=== PATIENT | female | born 1960 | race Caucasian/White ===

== ENCOUNTER 2016-08-19 12:30 | Inpatient (IN) | END 2016-08-29 19:25 | disposition home or self-care (01) | DRG 246 | DX: I25.10 Atherosclerotic heart disease of native coronary artery without angina pectoris (principal); E10.42 Type 1 diabetes mellitus with diabetic polyneuropathy; I25.82 Chronic total occlusion of coronary artery; I25.2 Old myocardial infarction; Z95.5 Presence of coronary angioplasty implant and graft; Z72.0 Tobacco use; Z79.4 Long term (current) use of insulin; E03.9 Hypothyroidism, unspecified; E10.65 Type 1 diabetes mellitus with hyperglycemia ==

== ENCOUNTER 2016-12-10 16:55 | Inpatient (IN) | payer OTHER ==
[2016-12-10] VITALS (25 sets, daily range): BP systolic 81–109; BP diastolic 42–63; PULSE 98–121; RESP 16–30; Ht 154.9 cm; Wt 58.5 kg
[~2016-12-10] VITALS: Ht 154.9 cm; Wt 58.5 kg
[~2016-12-10 16:55] MED LIST: ALEN70TA30 PO; ASPI-664 PO; ATOR20TA38 PO; DULO20CA17 PO; GABA300C16 PO; ISOS10TA2 PO; LANT3I SC; METO-448 PO; NOVO3I SC; TICA90TA PO
--- NOTE | 2016-12-10 17:40 | HP ---
Date/Time of Note Date/Time of Note DATE: 12/10/16 TIME: 17:39 Assessment/Plan VTE Prophylaxis VTE Prophylaxis Intervention: heparin Assessment/Plan Assessment/Plan 56 yo F with pmhx DM2 with previous DKA, CAD sp AL admitted to OSH for AMS, found to have DKA and NSTEMI. Pt transferred to [facility] for further cardiac evaluation. Suspect AMS is toxic metabolic encephalopathy 2/2 DKA and NSTEMI #NSTEMI with troponin up to 60s -cont heparin drip -dr cole of cardiology service aware of transfer -cont statin, DAPT with asa and brilinta #DM2 with DKA -cont subQ insulin -check a1c #diabetic neuropathy? cont home neurontin and cymbalta #pulm edema requiring intubation defer lasix pending Cr #CHF pending angiogram as noted above #hypothyroid cont home synthroid prophx: H2b while on vent, heparin drip of note, pt transferred on ceftriaxone. Rationale unclear. Will stop. HPI/ROS Admit Date/Time Admit Date/Time Dec 10, 2016 at 16:55 Hx of Present Illness Pt intubated at time of transfer so hx obtained from chart and daughter. 56 yo F with pmhx DM2 presented to [place] 2 days ago with AMS, found to be in DKA. Troponin found to be elevated but to ST segment elevation. While pt was getting IVFs for DKA treatment volume overload resulted and pt required intubation for volume overload. Pt transferred from [place] to here for angiogram for her NSTEMI. At time of transfer pt was on SubQ insulin and heparin drip. PMH/Family/Social Past Medical History DM2, HTN, CAD with h/o AL, tobacco abuse, hypothyroid Exam/Review of Systems Exam Exam intubated but awake EOMI MMM coarse breath sounds and bb crackles no mrg abd soft no le edema no rashes AM labs from OSH reviewed, Ca 7.6, Mag 2.6, Phos 1.6 Trop trend 67-->49-->29 OSH cultures: Urine cult ng, blood cult ng CXR 6.27: pna v pulm edema abd US: cholelithiasis and sludge, no CBD dilation JEANNETTE non obstructing L kidney stone TTE at oSH with EF 35-40%, LAD WMROBEL Lindsey MD Dec 10, 2016 17:40
[2016-12-10 17:53] LABS: ADD SCAN DIFF NO
[2016-12-10 18:12] LABS: INR 1.07; PROTIME 13.9 Sec (12.2-14.2); PT RATIO 1.1
[2016-12-10 18:13] LABS: PARTIAL THROMBOPLASTIN TIME 30.3 Sec (25.0-35.0)
[2016-12-10 18:23] LABS: MAGNESIUM 2.4 mg/dl (1.7-2.5); PHOSPHORUS 1.6 mg/dl (2.5-4.9)
[2016-12-10] MEDS ORDERED: GLUCOSE GEL 15 GRAM TUBE BUCCAL PRN (18:30)
[2016-12-10] MEDS ORDERED: GLUCOSE GEL 15 GRAM TUBE PO PRN ×2 (18:30)
[2016-12-10] MEDS ORDERED: GLUCAGON 1 MG INJ IM PRN (18:30)
[2016-12-10] MEDS ORDERED: DEXTROSE 50% 50 ML SYRINGE IV PRN (18:30)
[2016-12-10 18:39] LABS: ABNORMAL IP MESSAGE 1; HEMATOCRIT 36.8 % (37.0-47.0); HEMOGLOBIN 12.2 g/dl (12.0-16.0); MEAN CORPUSCULAR HGB CONC 33.2 g/dl (32.0-37.0); MEAN CORPUSCULAR VOLUME 90.6 fl (82.0-101.0); MEAN PLATELET VOLUME 10.5 fl (7.4-10.4); PLATELET COUNT 144 10^3/UL (140-415); RED BLOOD COUNT 4.06 10^6/ul (4.20-5.40); WHITE BLOOD COUNT 11.4 10^3/ul (4.8-10.8)
[2016-12-10 18:56] LABS: ALBUMIN 3.1 g/dl (3.3-4.9); ALBUMIN/GLOBULIN RATIO 1.47; BILIRUBIN,INDIRECT 0.7 mg/dl (0-1.1); BILIRUBIN,TOTAL 0.7 mg/dl (0.2-1.3); CALCIUM 7.7 mg/dl (8.4-10.2); CREATININE 0.78 mg/dl (0.44-1.00); POTASSIUM 3.6 mmol/L (3.5-5.1); TOTAL PROTEIN 5.2 g/dl (6.1-8.1)
[2016-12-10] MEDS ORDERED: HEPARIN 1000 UNITS/ML 10 ML INJ IV ONE (19:00)
[2016-12-10] MEDS: PROPOFOL 100 ML IV SCH (19:09)
[2016-12-10] MEDS: HEPARIN 25000 UNITS/250 ML 250 ML IV SCH (19:25)
[2016-12-10 19:49] LABS: LYMPHOCYTES # 0.3 10^3/ul (0.8-2.9)
[2016-12-10 20:01] LABS: AADO2 Arterial 134.2 mmHg (7.0-24.0); Allen Test ACCEPTAB; Arterial Base Excess 0.9 mmol/L (-3.0-3); Arterial COHb 0.3 % (0.0-3.0); Arterial Fraction of Oxyhgb 95.4 % (93.0-99.0); Arterial HCO3 24.1 mmol/L (22.0-26.0); Arterial MetHb 0.3 % (0.0-1.5); MODE VENT - AC
[2016-12-10] MEDS: INSULIN GLARGINE [LANtus] 3 ML PEN SC SCH (20:19)
[2016-12-10] MEDS: INSULIN ASPART [NOVOLOG] 3 ML PEN SC SCH (20:19)
[2016-12-10] MEDS: ATORVASTATIN 20 MG TAB PO SCH (20:21)
[2016-12-10] MEDS: FAMOTIDINE 20 MG TAB PO SCH (20:21)
[2016-12-10] MEDS: GABAPENTIN 300 MG CAP PO SCH (20:21)
[2016-12-10] MEDS: TICAGRELOR 90 MG TABLET PO SCH (20:44)
--- NOTE | 2016-12-10 20:50 | RADRPT ---
PROCEDURE: XR Chest. CLINICAL INDICATION: Check endotracheal tube position. TECHNIQUE: Single frontal view. COMPARISON: 08/25/2016. FINDINGS: The endotracheal tube, nasogastric tube, and right arm PICC line are in satisfactory position. Ther e is bilateral interstitial disease with some confluent components consistent with pulmonary edema. The heart size is normal. There is no pleural effusion. There is no pneumothorax. IMPRESSION: 1. Endotracheal tube, nasogastric tube, and right arm PICC line in satisfactory position. 2. Pulmonary edema. RPTAT: QQ .Alonso Brooks MD, MD Date Time Electronically viewed and signed by .Alonso Brooks MD, MD on 12/10/2016 20:49 .R/
[2016-12-10] MEDS: ISOSORBIDE DINITRATE 10 MG TAB PO SCH (21:00)
[2016-12-10] MEDS: METOPROLOL 25 MG TAB PO SCH (21:00)
[2016-12-10] MEDS: ACETAMINOPHEN 650MG/20.3ML CUP NGT PRN (21:40)
[2016-12-10] MEDS ORDERED: POTASSIUM PHOSPHATE 40 MEQ in SOD CHLORIDE 0.9% 250 ML IVPB ONE (22:00)
[2016-12-10] MEDS ORDERED: SOD CHLORIDE 0.9% 500 ML IV ONE (23:30)
[2016-12-11] VITALS (73 sets, daily range): BP systolic 79–123; BP diastolic 41–98; PULSE 84–106; RESP 12–33
[2016-12-11 00:42] LABS: INR 1.2; PROTIME 15.3 Sec (12.2-14.2); PT RATIO 1.2
[2016-12-11] MEDS: INSULIN ASPART [NOVOLOG] 3 ML PEN SC SCH ×6 (01:18→21:00)
[2016-12-11 01:21] LABS: PARTIAL THROMBOPLASTIN TIME 120.6 Sec (25.0-35.0)
[2016-12-11] MEDS: LEVOTHYROXINE 112 MCG TAB PO SCH (05:38)
[2016-12-11 06:20] LABS: ADD SCAN DIFF NO
[2016-12-11 06:23] LABS: BASOPHILS % 0.2 % (0.0-2.0); EOSINOPHILS # 0.2 10^3/ul (0.0-0.5); HEMATOCRIT 36.4 % (37.0-47.0); HEMOGLOBIN 11.9 g/dl (12.0-16.0); LYMPHOCYTES # 0.8 10^3/ul (0.8-2.9); LYMPHOCYTES % 6.4 % (15.0-51.0); MEAN CORPUSCULAR HEMOGLOBIN 29.9 pg (29.0-33.0); MEAN CORPUSCULAR HGB CONC 32.7 g/dl (32.0-37.0); MEAN CORPUSCULAR VOLUME 91.5 fl (82.0-101.0); MEAN PLATELET VOLUME 10.6 fl (7.4-10.4); MONOCYTE # 0.5 10^3/ul (0.3-0.9); MONOCYTES % 4.4 % (0.0-11.0); NEUTROPHIL # 10.6 10^3/ul (1.6-7.5); NEUTROPHILS % 86.5 % (39.0-77.0); PLATELET COUNT 127 10^3/UL (140-415); RED BLOOD COUNT 3.98 10^6/ul (4.20-5.40); WHITE BLOOD COUNT 12.3 10^3/ul (4.8-10.8)
[2016-12-11 06:52] LABS: INR 1.12; PARTIAL THROMBOPLASTIN TIME 35.3 Sec (25.0-35.0); PROTIME 14.4 Sec (12.2-14.2); PT RATIO 1.1
[2016-12-11 06:57] LABS: CALCIUM 7.8 mg/dl (8.4-10.2); CREATININE 0.69 mg/dl (0.44-1.00); POTASSIUM 3.8 mmol/L (3.5-5.1)
[2016-12-11] MEDS: PROPOFOL 100 ML IV SCH ×2 (07:00→19:00)
[2016-12-11] MEDS: METOPROLOL 25 MG TAB PO SCH ×2 (09:00→21:12)
[2016-12-11] MEDS: ISOSORBIDE DINITRATE 10 MG TAB PO SCH ×3 (09:00→21:00)
[2016-12-11] MEDS: DULOXETINE 20 MG CAP DR PO SCH (09:01)
[2016-12-11] MEDS: GABAPENTIN 300 MG CAP PO SCH ×3 (09:01→21:11)
[2016-12-11] MEDS: FAMOTIDINE 20 MG TAB PO SCH ×2 (09:01→21:11)
[2016-12-11] MEDS: ASPIRIN (EC) 81 MG TAB PO SCH (09:17)
[2016-12-11] MEDS: TICAGRELOR 90 MG TABLET PO SCH ×2 (09:25→21:14)
[2016-12-11] MEDS ORDERED: LIDOCAINE 1% (MDV) 20 ML INJ ONE (10:13)
[2016-12-11] MEDS ORDERED: IODIXANOL LOCM 100 ML BTL ONE (10:13)
[2016-12-11] MEDS ORDERED: VERAPAMIL 5 MG INJ ONE (10:41)
[2016-12-11] MEDS ORDERED: HEPARIN 1000 UNITS/ML 10 ML INJ ONE (10:42)
[2016-12-11] MEDS ORDERED: NITROGLYCERIN (IC) 100 MCG/ML INJ ONE (10:42)
--- NOTE | 2016-12-11 11:05 | PN ---
Date/Time of Note Date/Time of Note DATE: 12/11/16 TIME: 11:02 Assessment/Plan VTE Prophylaxis VTE Prophylaxis Intervention: heparin Lines/Catheters IV Catheter Type (from Nrsg): PICC Line Central line still needed: Yes (IV access ) Urinary Cath still in place: Yes Reason Cath still needed: urinary retention, other (indicate) (strict I/o For CHF ) Assessment/Plan Assessment/Plan # acute NSTEMI with troponin upto 60s on heparin gtt, Cardiology on board, plan for [facility] today #DM2 with DKA- s/p Insulin drip at [facility] -cont subQ insulin #diabetic neuropathy? cont home neurontin and cymbalta # acute resp failure due to pulm edema requiring intubation defer lasix pending Cr #CHF diuresis as per cardiology #hypothyroid cont home synthroid prophx: H2b while on vent, heparin drip IV ceftriaxone was stopped upon transfer apperciate cardiology help Subjective 24 Hr Interval Summary Free Text/Dictation plan for [facility] today, s/p Insulin for DKA T [facility] Exam/Review of Systems Vital Signs Vitals Vital Signs Date Time Temp Pulse Resp B/P Pulse Ox O2 Delivery O2 Flow Rate FiO2 12/11/16 09:30 95 27 104/53 98 Mechanical Ventilator 12/11/16 08:00 35 12/11/16 06:00 98.6 Intake and Output 12/10/16 12/10/16 12/11/16 15:00 23:00 07:00 Intake Total 43.4 ml 836.9409 ml Output Total 365 ml 275 ml Balance -321.6 ml 561.9409 ml Exam Constitutional: other (intubated ) Psych: no complaints Head: normocephalic Eyes: nl conjunctiva ENMT: nl external ears & nose Neck: supple Respiratory: other (bibasilar rales ) Cardiovascular: regular rate and rhythm Gastrointestinal: non-tender, soft Musculoskeletal: nl extremities to inspection Extremities: normal pulses Results Result Diagram: 12/11/16 0612/11/16 06 Results 24 hrs Laboratory Tests Test 12/10/16 17:50 12/10/16 17:55 12/10/16 19:43 12/10/16 20:16 White Blood Count 11.4 #H Red Blood Count 4.06 L Hemoglobin 12.2 Hematocrit 36.8 L Mean Corpuscular Volume 90.6 Mean Corpuscular Hemoglobin 30.0 Mean Corpuscular Hemoglobin Concent 33.2 Red Cell Distribution Width 14.0 Platelet Count 144 # Mean Platelet Volume 10.5 H Neutrophils % 88.0 H Band Neutrophils % 9.0 H Lymphocytes % 3.0 L Eosinophils % Neutrophils # 10.0 H Lymphocytes # 0.3 L Eosinophils # Prothrombin Time 13.9 Prothrombin Time Ratio 1.1 INR International Normalized Ratio 1.07 Activated Partial Thromboplast Time 30.3 Sodium Level 140 Potassium Level 3.6 Chloride Level 110 Carbon Dioxide Level 24 Anion Gap 10 Blood Urea Nitrogen 24 H Creatinine 0.78 Glucose Level 182 Hemoglobin A1c 9.4 H Calcium Level 7.7 L Phosphorus Level 1.6 L Magnesium Level 2.4 Total Bilirubin 0.7 Direct Bilirubin 0.00 Indirect Bilirubin 0.7 Aspartate Amino Transf (AST/SGOT) 90 H Alanine Aminotransferase (ALT/SGPT) 46 Alkaline Phosphatase 103 Total Protein 5.2 L Albumin 3.1 L Globulin 2.10 Albumin/Globulin Ratio 1.47 Bedside Glucose 199 243 H Blood Gas Specimen Source Blood arterial Arterial Blood Date Drawn 12/10/2016 7:50:38 PM Arterial Blood pH (Temp corrected) 7.470 H Arterial Blood pCO2 (Temp correct) 33.9 L Arterial Blood pO2 (Temp corrected) 75.9 L Arterial Blood HCO3 24.1 Arterial Blood Base Excess 0.9 Arterial Blood Oxygen Saturation 96.0 Miguel Test ACCEPTAB Arterial Blood Gas Puncture Site Right Radial Arterial Blood Carboxyhemoglobin 0.3 Arterial Blood Methemoglobin 0.3 Blood Gas A-a O2 Differential 134.2 H Oxyhemoglobin Percent 95.4 Total Hemoglobin 13.0 Blood Gas Temperature 37.0 Blood Gas Respiration Rate 12.0 Blood Gas Actual Respiration Rate 24 Blood Gas Modality VENT - AC FiO2 35.0 Blood Gas Tidal Volume 450.0 Blood Gas Low PEEP Setting 5.0 Blood Gas Notified Whom MA Blood Gas Notified Time 12/10/2016 8:01:23 PM Test 12/11/16 00:15 12/11/16 01:15 12/11/16 05:37 12/11/16 06:05 Prothrombin Time 15.3 H 14.4 H Prothrombin Time Ratio 1.2 1.1 INR International Normalized Ratio 1.20 1.12 Activated Partial Thromboplast Time 120.6 *H 35.3 H Bedside Glucose 209 180 White Blood Count 12.3 H Red Blood Count 3.98 L Hemoglobin 11.9 L Hematocrit 36.4 L Mean Corpuscular Volume 91.5 Mean Corpuscular Hemoglobin 29.9 Mean Corpuscular Hemoglobin Concent 32.7 Red Cell Distribution Width 14.0 Platelet Count 127 L Mean Platelet Volume 10.6 H Neutrophils % 86.5 H Lymphocytes % 6.4 L Monocytes % 4.4 Eosinophils % 2.0 Basophils % 0.2 Nucleated Red Blood Cells % 0.0 Neutrophils # 10.6 H Lymphocytes # 0.8 Monocytes # 0.5 Eosinophils # 0.2 Basophils # 0.0 Nucleated Red Blood Cells # 0.0 Sodium Level 146 H Potassium Level 3.8 Chloride Level 114 H Carbon Dioxide Level 25 Anion Gap 11 Blood Urea Nitrogen 23 H Creatinine 0.69 Glucose Level 154 Calcium Level 7.8 L Test 12/11/16 09:16 Bedside Glucose 112 Medications Medications Current Medications Famotidine (Pepcid) 20 mg Q12 PO Last administered on 12/11/16 09:01; Admin Dose 20 MG; Start 12/10/16 at 21:00 Aspirin (Halfprin) 81 mg DAILY PO Last administered on 12/11/16 09:17; Admin Dose 81 MG; Start 12/11/16 at 09:00 Atorvastatin Calcium (Lipitor) 20 mg HS PO Last administered on 12/10/16 20:21 ; Admin Dose 20 MG; Start 12/10/16 at 21:00 Duloxetine HCl (Cymbalta) 20 mg DAILY PO Last administered on 12/11/16 09:01; Admin Dose 20 MG; Start 12/11/16 at 09:00 Gabapentin (Neurontin) 300 mg TID PO Last administered on 12/11/16 09:01; Admin Dose 300 MG; Start 12/10/16 at 21:00 Insulin Glargine (Lantus) 30 unit DAILY@20 SC Last administered on 12/10/16 20 :19; Admin Dose 30 UNIT; Start 12/10/16 at 20:00 Isosorbide Dinitrate (Isordil) 10 mg TID PO ; Start 12/10/16 at 21:00 Metoprolol Tartrate (Lopressor) 12.5 mg BID PO ; Start 12/10/16 at 21:00 Ticagrelor (Brilinta) 90 mg BID PO Last administered on 12/11/16 09:25; Admin Dose 90 MG; Start 12/10/16 at 21:00 Levothyroxine Sodium (Synthroid) 112 mcg DAILY@06 PO Last administered on 05:38; Admin Dose 112 MCG; Start 12/11/16 at 06:00 Insulin Aspart (Novolog Insulin Pen) NOVOLOG *MODERATE* ALGORI... Q4 SC Last administered on 12/11/16 05:42; Admin Dose 2 UNIT; Start 12/10/16 at 21:00 Miscellaneous Information 1 ea NOTE XX ; Start 12/10/16 at 18:30 Glucose (Glutose) 15 gm Q15M PRN PO DECREASED GLUCOSE; Start 12/10/16 at 18:30 Glucose (Glutose) 22.5 gm Q15M PRN PO DECREASED GLUCOSE; Start 12/10/16 at 18: 30 Dextrose (D50w Syringe) 25 ml Q15M PRN IV DECREASED GLUCOSE; Start 12/10/16 at 18:30 Dextrose (D50w Syringe) 50 ml Q15M PRN IV DECREASED GLUCOSE; Start 12/10/16 at 18:30 Glucagon (Glucagen) 1 mg Q15M PRN IM DECREASED GLUCOSE; Start 12/10/16 at 18:30 Glucose 15 gm 15 gm Q15M PRN BUCCAL DECREASED GLUCOSE; Start 12/10/16 at 18:30 Propofol (Diprivan) 100 ml @ 1.755 mls/ hr Q12H IV Last administered on 19:09; Admin Dose 1.755 MLS/HR; Start 12/10/16 at 19:00 Acetaminophen 650 mg 650 mg Q6H PRN NGT PAIN AND OR ELEVATED TEMP Last administered on 12/10/16 21:40; Admin Dose 650 MG; Start 12/10/16 at 21:00 Norepinephrine/ Dextrose (Levophed/D5W) 500 ml @ 1.87 mls/hr TITRATE IV Last administered on 12/11/16 00:20; Admin Dose 3.75 MLS/HR; Start 12/10/16 at 23:30 WARREN WILLIAMSON MD Dec 11, 2016 11:05
--- NOTE | 2016-12-11 11:30 | OPR ---
Date/Time of Note Date/Time of Note DATE: 12/11/16 TIME: 11:21 Operative Report Procedure Date: Dec 11, 2016 Preoperative Diagnosis Nstemi with peak troponin >60 Postoperative Diagnosis obstructive cad Operation Performed [facility] Surgeon: RHONDA PENA Anesthesia: other (moderate concious sedation) Estimated Blood Loss: 0 - 10 ml's Complications: None Pt Condition Post Procedure: stable Disposition: other (ICU) Indications NSTEMI/shock Operative\Procedure Findings 70% hazy appearing distal short LMN 80% proximal LAD small calber with diffuse disease and therafter very small caliber vessels but no other significant focal stenosis 80-90% LCX continuation in AV groove with therafter small caliber vessels and diffuse disease RCA with widely patent proximal to distal stents and no other significant disease in PDA/PLB bifurcation LVEDP 28 Recc: 1. Consider CABG surgery due to small caliber of vessels and diffuse nature of disease once patient has recovered from acute event 2. Maximize medical therapy 3.Follow BP closely 4. Transfer back to ICU for ongoing care RHONDA PENA Dec 11, 2016 11:30
[2016-12-11] MEDS ORDERED: SOD CHLORIDE 0.9% 1,000 ML IV SCH (12:56)
--- NOTE | 2016-12-11 12:56 | CONS ---
Date/Time of Note Date/Time of Note DATE: 12/11/16 TIME: 12:43 Assessment/Plan Assessment/Plan Chief Complaint/Hosp Course IMP: 1.NSTEMI-peak trop>60 Now dowtrending. s/p LHC with patent RCA stents and high grade disease of LAD/LCX with small caliber vessels 2.cardiomyopathy-LVEF 40-45 BY OSH echo 3.Hypotension-currently off of pressors 4.resp failure s/p intubation 5.anemia 6. AMS Recc: -Tele -serial ecg's -Follow BP closely -Continue asa/brilinta -Continue statin -Follow volume status clsoely -re-consult CT surg for possible CABG -Smokine cessation -Continue insulin and follow BS closely Problems: Consultation Date/Type/Reason Admit Date/Time Dec 10, 2016 at 16:55 Date of Consultation: Dec 11, 2016 Type of Consultation: cardiology Reason for Consultation Nstemi/shock Referring Provider: ROBEL PETTY MD Hx of Present Illness 56 yo F with pmhx DM2, cardiomyopathy, PTCA/stent to RCA for [employer] 08/2016 presented to [place] 2-3 days prior to current admission with AMS, found to be in DKA and shock state. Required intubation for resp failure and then subsequently ruled in for NSTEMI with peak trop>60.. Pt transferred from [place] to undergo C. At time of transfer pt was on SubQ insulin and heparin drip. Subjective hx not possible: pt critical status Constitutional: other (sedated) Cardiovascular: other (hypotension) Neurologic: other (sedated) Psychological: no complaints Past Medical History Medical History: coronary artery disease, diabetes, hypertension Past Surgical History Past Surgical Hx: other (prior PTCA/stent) Family History Significant Family History: no pertinent family hx Social History Alcohol Use: occasionally Smoking Status: Current every day smoker Drug Use: none Exam/Review of Systems Vital Signs Vitals Vital Signs Date Time Temp Pulse Resp B/P Pulse Ox O2 Delivery O2 Flow Rate FiO2 12/11/16 09:30 95 27 104/53 98 Mechanical Ventilator 12/11/16 08:00 35 12/11/16 06:00 98.6 Intake and Output 12/10/16 12/10/16 12/11/16 15:00 23:00 07:00 Intake Total 43.4 ml 836.9409 ml Output Total 365 ml 275 ml Balance -321.6 ml 561.9409 ml Exam Constitutional: other (sedated) ENMT: intubated Neck: jvd (9 cm water) Cardiovascular: regular rate and rhythm Gastrointestinal: non-tender, soft Musculoskeletal: muscle tone (normal) Extremities: edema (none) 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: other (sedated) Results Result Diagram: 12/11/16 0605 12/11/16 0605 Results 24 hrs Laboratory Tests Test 12/10/16 17:50 12/10/16 17:55 12/10/16 19:43 12/10/16 20:16 White Blood Count 11.4 #H Red Blood Count 4.06 L Hemoglobin 12.2 Hematocrit 36.8 L Mean Corpuscular Volume 90.6 Mean Corpuscular Hemoglobin 30.0 Mean Corpuscular Hemoglobin Concent 33.2 Red Cell Distribution Width 14.0 Platelet Count 144 # Mean Platelet Volume 10.5 H Neutrophils % 88.0 H Band Neutrophils % 9.0 H Lymphocytes % 3.0 L Eosinophils % Neutrophils # 10.0 H Lymphocytes # 0.3 L Eosinophils # Prothrombin Time 13.9 Prothrombin Time Ratio 1.1 INR International Normalized Ratio 1.07 Activated Partial Thromboplast Time 30.3 Sodium Level 140 Potassium Level 3.6 Chloride Level 110 Carbon Dioxide Level 24 Anion Gap 10 Blood Urea Nitrogen 24 H Creatinine 0.78 Glucose Level 182 Hemoglobin A1c 9.4 H Calcium Level 7.7 L Phosphorus Level 1.6 L Magnesium Level 2.4 Total Bilirubin 0.7 Direct Bilirubin 0.00 Indirect Bilirubin 0.7 Aspartate Amino Transf (AST/SGOT) 90 H Alanine Aminotransferase (ALT/SGPT) 46 Alkaline Phosphatase 103 Total Protein 5.2 L Albumin 3.1 L Globulin 2.10 Albumin/Globulin Ratio 1.47 Bedside Glucose 199 243 H Blood Gas Specimen Source Blood arterial Arterial Blood Date Drawn 12/10/2016 7:50:38 PM Arterial Blood pH (Temp corrected) 7.470 H Arterial Blood pCO2 (Temp correct) 33.9 L Arterial Blood pO2 (Temp corrected) 75.9 L Arterial Blood HCO3 24.1 Arterial Blood Base Excess 0.9 Arterial Blood Oxygen Saturation 96.0 Miguel Test ACCEPTAB Arterial Blood Gas Puncture Site Right Radial Arterial Blood Carboxyhemoglobin 0.3 Arterial Blood Methemoglobin 0.3 Blood Gas A-a O2 Differential 134.2 H Oxyhemoglobin Percent 95.4 Total Hemoglobin 13.0 Blood Gas Temperature 37.0 Blood Gas Respiration Rate 12.0 Blood Gas Actual Respiration Rate 24 Blood Gas Modality VENT - AC FiO2 35.0 Blood Gas Tidal Volume 450.0 Blood Gas Low PEEP Setting 5.0 Blood Gas Notified Whom MA Blood Gas Notified Time 12/10/2016 8:01:23 PM Test 12/11/16 00:15 12/11/16 01:15 12/11/16 05:37 12/11/16 06:05 Prothrombin Time 15.3 H 14.4 H Prothrombin Time Ratio 1.2 1.1 INR International Normalized Ratio 1.20 1.12 Activated Partial Thromboplast Time 120.6 *H 35.3 H Bedside Glucose 209 180 White Blood Count 12.3 H Red Blood Count 3.98 L Hemoglobin 11.9 L Hematocrit 36.4 L Mean Corpuscular Volume 91.5 Mean Corpuscular Hemoglobin 29.9 Mean Corpuscular Hemoglobin Concent 32.7 Red Cell Distribution Width 14.0 Platelet Count 127 L Mean Platelet Volume 10.6 H Neutrophils % 86.5 H Lymphocytes % 6.4 L Monocytes % 4.4 Eosinophils % 2.0 Basophils % 0.2 Nucleated Red Blood Cells % 0.0 Neutrophils # 10.6 H Lymphocytes # 0.8 Monocytes # 0.5 Eosinophils # 0.2 Basophils # 0.0 Nucleated Red Blood Cells # 0.0 Sodium Level 146 H Potassium Level 3.8 Chloride Level 114 H Carbon Dioxide Level 25 Anion Gap 11 Blood Urea Nitrogen 23 H Creatinine 0.69 Glucose Level 154 Calcium Level 7.8 L Test 12/11/16 09:16 Bedside Glucose 112 Medications Medications Current Medications Famotidine (Pepcid) 20 mg Q12 PO Last administered on 12/11/16 09:01; Admin Dose 20 MG; Start 12/10/16 at 21:00 Aspirin (Halfprin) 81 mg DAILY PO Last administered on 12/11/16 09:17; Admin Dose 81 MG; Start 12/11/16 at 09:00 Atorvastatin Calcium (Lipitor) 20 mg HS PO Last administered on 12/10/16 20:21 ; Admin Dose 20 MG; Start 12/10/16 at 21:00 Duloxetine HCl (Cymbalta) 20 mg DAILY PO Last administered on 12/11/16 09:01; Admin Dose 20 MG; Start 12/11/16 at 09:00 Gabapentin (Neurontin) 300 mg TID PO Last administered on 12/11/16 09:01; Admin Dose 300 MG; Start 12/10/16 at 21:00 Insulin Glargine (Lantus) 30 unit DAILY@20 SC Last administered on 12/10/16 20 :19; Admin Dose 30 UNIT; Start 12/10/16 at 20:00 Isosorbide Dinitrate (Isordil) 10 mg TID PO ; Start 12/10/16 at 21:00 Metoprolol Tartrate (Lopressor) 12.5 mg BID PO ; Start 12/10/16 at 21:00 Ticagrelor (Brilinta) 90 mg BID PO Last administered on 12/11/16 09:25; Admin Dose 90 MG; Start 12/10/16 at 21:00 Levothyroxine Sodium (Synthroid) 112 mcg DAILY@06 PO Last administered on 05:38; Admin Dose 112 MCG; Start 12/11/16 at 06:00 Insulin Aspart (Novolog Insulin Pen) NOVOLOG *MODERATE* ALGORI... Q4 SC Last administered on 12/11/16 05:42; Admin Dose 2 UNIT; Start 12/10/16 at 21:00 Miscellaneous Information 1 ea NOTE XX ; Start 12/10/16 at 18:30 Glucose (Glutose) 15 gm Q15M PRN PO DECREASED GLUCOSE; Start 12/10/16 at 18:30 Glucose (Glutose) 22.5 gm Q15M PRN PO DECREASED GLUCOSE; Start 12/10/16 at 18: 30 Dextrose (D50w Syringe) 25 ml Q15M PRN IV DECREASED GLUCOSE; Start 12/10/16 at 18:30 Dextrose (D50w Syringe) 50 ml Q15M PRN IV DECREASED GLUCOSE; Start 12/10/16 at 18:30 Glucagon (Glucagen) 1 mg Q15M PRN IM DECREASED GLUCOSE; Start 12/10/16 at 18:30 Glucose 15 gm 15 gm Q15M PRN BUCCAL DECREASED GLUCOSE; Start 12/10/16 at 18:30 Propofol (Diprivan) 100 ml @ 1.755 mls/ hr Q12H IV Last administered on 19:09; Admin Dose 1.755 MLS/HR; Start 12/10/16 at 19:00 Acetaminophen 650 mg 650 mg Q6H PRN NGT PAIN AND OR ELEVATED TEMP Last administered on 12/10/16 21:40; Admin Dose 650 MG; Start 12/10/16 at 21:00 Norepinephrine/ Dextrose (Levophed/D5W) 500 ml @ 1.87 mls/hr TITRATE IV Last administered on 12/11/16 00:20; Admin Dose 3.75 MLS/HR; Start 12/10/16 at 23:30 RHONDA PENA Dec 11, 2016 12:54
[2016-12-11] MEDS ORDERED: AL HYDROX/MG HYDROX/SIMETH 30 ML CUP PO PRN (13:00)
[2016-12-11] MEDS ORDERED: ACETAMINOPHEN 325 MG TAB PO PRN (13:00)
[2016-12-11] MEDS ORDERED: ONDANSETRON 4 MG INJ IV PRN (13:00)
[2016-12-11] MEDS: INSULIN GLARGINE [LANtus] 3 ML PEN SC SCH (20:00)
[2016-12-11] MEDS: HEPARIN 25000 UNITS/250 ML 250 ML IV SCH (20:34)
[2016-12-11] MEDS: morphine 2 MG INJ IV PRN (21:11)
[2016-12-11] MEDS: ATORVASTATIN 20 MG TAB PO SCH (21:11)
[2016-12-12] VITALS (36 sets, daily range): BP systolic 92–114; BP diastolic 43–59; PULSE 78–97; RESP 8–30
[2016-12-12] MEDS: INSULIN ASPART [NOVOLOG] 3 ML PEN SC SCH ×6 (01:00→20:30)
[2016-12-12] MEDS: PROPOFOL 100 ML IV SCH ×3 (02:48→20:32)
[2016-12-12] MEDS: HEPARIN 1000 UNITS/ML 10 ML INJ IV PRN ×3 (03:12→23:56)
[2016-12-12] MEDS: HEPARIN 25000 UNITS/250 ML 250 ML IV SCH ×2 (03:14→20:31)
[2016-12-12] MEDS ORDERED: SOD CHLORIDE 0.9% 500 ML IV ONE (05:00)
[2016-12-12] MEDS: LEVOTHYROXINE 112 MCG TAB PO SCH (05:30)
--- NOTE | 2016-12-12 08:20 | PN ---
Date/Time of Note Date/Time of Note DATE: 12/12/16 TIME: 08:18 Assessment/Plan VTE Prophylaxis VTE Prophylaxis Intervention: heparin Lines/Catheters IV Catheter Type (from Nrsg): PICC Line Central line still needed: Yes (difficult peripheral access ) Urinary Cath still in place: Yes Reason Cath still needed: urinary retention Assessment/Plan Assessment/Plan # acute NSTEMI with troponin upto 60s at outside hospital - s/p LHC 12/11/16 which showed patent RCA stents and high grade disease of LAD/LCX with small caliber vessels on heparin gtt, Cardiology on board, management as per cardiology #DM2 with DKA- s/p Insulin drip at [facility] -cont subQ insulin, now Blood sugar controlled #diabetic neuropathy? cont home neurontin and cymbalta # acute resp failure due to pulm edema requiring intubation pulmonary following #CHF diuresis as per cardiology #hypothyroid cont home synthroid prophx: H2b while on vent, heparin drip IV ceftriaxone was stopped upon transfer apperciate cardiology help Subjective 24 Hr Interval Summary Free Text/Dictation s/p C, remains intubated, pul following Exam/Review of Systems Vital Signs Vitals Vital Signs Date Time Temp Pulse Resp B/P Pulse Ox O2 Delivery O2 Flow Rate FiO2 12/12/16 07:29 96 25 97 35 12/12/16 06:00 100/48 Mechanical Ventilator 12/12/16 05:00 99.0 Intake and Output 12/11/16 12/11/16 12/12/16 15:00 23:00 07:00 Intake Total 53.289 ml 45.313 ml 85.7 ml Output Total 240 ml 275 ml 285 ml Balance -186.711 ml -229.687 ml -199.3 ml Exam Constitutional: other (intubated ) Psych: no complaints Head: normocephalic Eyes: nl conjunctiva ENMT: nl external ears & nose Neck: supple Respiratory: other (bibasilar rales ) Cardiovascular: regular rate and rhythm Gastrointestinal: non-tender, soft Musculoskeletal: nl extremities to inspection Extremities: normal pulses Results Result Diagram: 12/11/16 0605 12/11/16 0605 Results 24 hrs Laboratory Tests Test 12/11/16 09:16 12/11/16 13:26 12/11/16 16:14 12/11/16 21:09 Bedside Glucose 112 103 85 115 Test 12/12/16 02:25 12/12/16 05:13 Activated Partial Thromboplast Time 33.2 Bedside Glucose 206 Medications Medications Current Medications Famotidine (Pepcid) 20 mg Q12 PO Last administered on 12/11/16 21:11; Admin Dose 20 MG; Start 12/10/16 at 21:00 Aspirin (Halfprin) 81 mg DAILY PO Last administered on 12/11/16 09:17; Admin Dose 81 MG; Start 12/11/16 at 09:00 Atorvastatin Calcium (Lipitor) 20 mg HS PO Last administered on 12/11/16 21:11 ; Admin Dose 20 MG; Start 12/10/16 at 21:00 Duloxetine HCl (Cymbalta) 20 mg DAILY PO Last administered on 12/11/16 09:01; Admin Dose 20 MG; Start 12/11/16 at 09:00 Gabapentin (Neurontin) 300 mg TID PO Last administered on 12/11/16 21:11; Admin Dose 300 MG; Start 12/10/16 at 21:00 Insulin Glargine (Lantus) 30 unit DAILY@20 SC Last administered on 12/10/16 20 :19; Admin Dose 30 UNIT; Start 12/10/16 at 20:00 Isosorbide Dinitrate (Isordil) 10 mg TID PO ; Start 12/10/16 at 21:00 Metoprolol Tartrate (Lopressor) 12.5 mg BID PO Last administered on 12/11/16 21:12; Admin Dose 12.5 MG; Start 12/10/16 at 21:00 Ticagrelor (Brilinta) 90 mg BID PO Last administered on 12/11/16 21:14; Admin Dose 90 MG; Start 12/10/16 at 21:00 Levothyroxine Sodium (Synthroid) 112 mcg DAILY@06 PO Last administered on 05:30; Admin Dose 112 MCG; Start 12/11/16 at 06:00 Insulin Aspart (Novolog Insulin Pen) NOVOLOG *MODERATE* ALGORI... Q4 SC Last administered on 12/12/16 05:51; Admin Dose 4 UNIT; Start 12/10/16 at 21:00 Miscellaneous Information 1 ea NOTE XX ; Start 12/10/16 at 18:30 Glucose (Glutose) 15 gm Q15M PRN PO DECREASED GLUCOSE; Start 12/10/16 at 18:30 Glucose (Glutose) 22.5 gm Q15M PRN PO DECREASED GLUCOSE; Start 12/10/16 at 18: 30 Dextrose (D50w Syringe) 25 ml Q15M PRN IV DECREASED GLUCOSE; Start 12/10/16 at 18:30 Dextrose (D50w Syringe) 50 ml Q15M PRN IV DECREASED GLUCOSE; Start 12/10/16 at 18:30 Glucagon (Glucagen) 1 mg Q15M PRN IM DECREASED GLUCOSE; Start 12/10/16 at 18:30 Glucose 15 gm 15 gm Q15M PRN BUCCAL DECREASED GLUCOSE; Start 12/10/16 at 18:30 Propofol (Diprivan) 100 ml @ 1.755 mls/ hr Q12H IV Last administered on 02:48; Admin Dose 4.563 MLS/HR; Start 12/10/16 at 19:00 Acetaminophen 650 mg 650 mg Q6H PRN NGT PAIN AND OR ELEVATED TEMP Last administered on 12/10/16 21:40; Admin Dose 650 MG; Start 12/10/16 at 21:00 Norepinephrine/ Dextrose (Levophed/D5W) 500 ml @ 1.87 mls/hr TITRATE IV Last administered on 12/11/16 00:20; Admin Dose 3.75 MLS/HR; Start 12/10/16 at 23:30 Acetaminophen (Tylenol Tab) 650 mg Q4H PRN PO NON-CARDIAC PAIN LEVEL (1-3); Start 12/11/16 at 13:00 Morphine Sulfate (morphine) 2 mg Q2H PRN IV FOR NON CARDIAC PAIN (4-10) Last administered on 12/11/16 21:11; Admin Dose 2 MG; Start 12/11/16 at 13:00 Al Hydrox/Mg Hydrox/Simethicone (Mag-Al Plus) 30 ml Q4H PRN PO GASTROINTESTINAL UPSET; Start 12/11/16 at 13:00 Ondansetron HCl (Zofran Inj) 4 mg Q4H PRN IV NAUSEA AND/OR VOMITING; Start at 13:00 WARREN WILLIAMSON MD Dec 12, 2016 08:20
--- NOTE | 2016-12-12 08:45 | CONS ---
Date/Time of Note Date/Time of Note DATE: 12/12/16 TIME: 08:41 Assessment/Plan Assessment/Plan Additional Assessment/Plan Chest x-ray was reviewed from the of this month showing mild pulmonary edema. Current ventilator setting; AC of 12, tidal volume 450, PEEP of 5, 35% FiO2. Patient currently on IV heparin via protocol and propofol at 30 mics per kilogram per minute. She is off insulin drip. Assessment and recommendations; 1. Patient admitted with DKA and acute IL doing well clinically. 2. Respiratory failure. With apparently improved pulmonary edema. 3. Underlying history of coronary artery disease. 4. History of hypothyroidism. 5. Mild thrombocytopenia. Obtain a chest x-ray. Once x-ray is done I will make further recommendations regarding possibility of weaning from ventilator. Meanwhile patient currently being assessed for possible coronary artery bypass surgery. Consultation Date/Type/Reason Admit Date/Time Dec 10, 2016 at 16:55 Date of Consultation: Dec 12, 2016 Type of Consultation: Pulmonary/critical care Reason for Consultation Pulmonary consult obtained for evaluation of respiratory failure. Next History of presenting illness; patient is a 56-year-old white lady who was transferred over from [facility] on the of this month with the patient presented with acute IL as well as DKA. The patient was intubated transferred to [facility]. The patient has been treated for DKA and has been maintained on mechanical ventilation. At the time I saw the patient is orally intubated and despite being on sedation is somewhat arousable. History was obtained from medical records. Patient has maintained adequate hemodynamics during her stay. Past medical history; 1. Patient with history of diabetes. 2. Hypertension. 3. History of prior coronary artery disease with intervention. 4. Possibly COPD. Medications; reviewed. Allergies; fish. Social history; patient is a current smoker. Also drinks occasionally. Family history; not available. Occupational history; not available. Review systems; unable to be obtained. General exam; middle-aged woman, orally intubated, partly sedated but arousable. Constitutional: other (sedated) Cardiovascular: other (hypotension) Neurologic: other (sedated) Psychological: no complaints Past Medical History Medical History: coronary artery disease, diabetes, hypertension Past Surgical History Past Surgical Hx: other (prior PTCA/stent) Social History Alcohol Use: occasionally Smoking Status: Current every day smoker Drug Use: none Exam/Review of Systems Vital Signs Vitals Vital Signs Date Time Temp Pulse Resp B/P Pulse Ox O2 Delivery O2 Flow Rate FiO2 12/12/16 07:29 96 25 97 35 12/12/16 06:00 100/48 Mechanical Ventilator 12/12/16 05:00 99.0 Intake and Output 12/11/16 12/11/16 12/12/16 15:00 23:00 07:00 Intake Total 53.289 ml 45.313 ml 85.7 ml Output Total 240 ml 275 ml 285 ml Balance -186.711 ml -229.687 ml -199.3 ml Exam HEENT exam; supple neck, no JVD. No lymphadenopathy. Midline trachea. No thyromegaly. Patient has a left intraocular lens implant. She is edentulous. Orally intubated. Chest exam; clear to auscultation. S1-S2 audible, no murmurs. Regular rhythm. Abdomen exam; soft, no organomegaly. Bowel sounds audible. Extremity exam; no peripheral edema. Pulses 1+ bilaterally. No clubbing. [employer] exam; patient is sedated but arousable. Results Result Diagram: 12/11/16 0612/11/16 06 Results 24 hrs Laboratory Tests Test 12/11/16 09:16 12/11/16 13:26 12/11/16 16:14 12/11/16 21:09 Bedside Glucose 112 103 85 115 Test 12/12/16 02:25 12/12/16 05:13 Activated Partial Thromboplast Time 33.2 Bedside Glucose 206 Medications Medications Current Medications Famotidine (Pepcid) 20 mg Q12 PO Last administered on 12/11/16 21:11; Admin Dose 20 MG; Start 12/10/16 at 21:00 Aspirin (Halfprin) 81 mg DAILY PO Last administered on 12/11/16 09:17; Admin Dose 81 MG; Start 12/11/16 at 09:00 Atorvastatin Calcium (Lipitor) 20 mg HS PO Last administered on 12/11/16 21:11 ; Admin Dose 20 MG; Start 12/10/16 at 21:00 Duloxetine HCl (Cymbalta) 20 mg DAILY PO Last administered on 12/11/16 09:01; Admin Dose 20 MG; Start 12/11/16 at 09:00 Gabapentin (Neurontin) 300 mg TID PO Last administered on 12/11/16 21:11; Admin Dose 300 MG; Start 12/10/16 at 21:00 Insulin Glargine (Lantus) 30 unit DAILY@20 SC Last administered on 12/10/16 20 :19; Admin Dose 30 UNIT; Start 12/10/16 at 20:00 Isosorbide Dinitrate (Isordil) 10 mg TID PO ; Start 12/10/16 at 21:00 Metoprolol Tartrate (Lopressor) 12.5 mg BID PO Last administered on 12/11/16 21:12; Admin Dose 12.5 MG; Start 12/10/16 at 21:00 Ticagrelor (Brilinta) 90 mg BID PO Last administered on 12/11/16 21:14; Admin Dose 90 MG; Start 12/10/16 at 21:00 Levothyroxine Sodium (Synthroid) 112 mcg DAILY@06 PO Last administered on 05:30; Admin Dose 112 MCG; Start 12/11/16 at 06:00 Insulin Aspart (Novolog Insulin Pen) NOVOLOG *MODERATE* ALGORI... Q4 SC Last administered on 12/12/16 05:51; Admin Dose 4 UNIT; Start 12/10/16 at 21:00 Miscellaneous Information 1 ea NOTE XX ; Start 12/10/16 at 18:30 Glucose (Glutose) 15 gm Q15M PRN PO DECREASED GLUCOSE; Start 12/10/16 at 18:30 Glucose (Glutose) 22.5 gm Q15M PRN PO DECREASED GLUCOSE; Start 12/10/16 at 18: 30 Dextrose (D50w Syringe) 25 ml Q15M PRN IV DECREASED GLUCOSE; Start 12/10/16 at 18:30 Dextrose (D50w Syringe) 50 ml Q15M PRN IV DECREASED GLUCOSE; Start 12/10/16 at 18:30 Glucagon (Glucagen) 1 mg Q15M PRN IM DECREASED GLUCOSE; Start 12/10/16 at 18:30 Glucose 15 gm 15 gm Q15M PRN BUCCAL DECREASED GLUCOSE; Start 12/10/16 at 18:30 Propofol (Diprivan) 100 ml @ 1.755 mls/ hr Q12H IV Last administered on 02:48; Admin Dose 4.563 MLS/HR; Start 12/10/16 at 19:00 Acetaminophen 650 mg 650 mg Q6H PRN NGT PAIN AND OR ELEVATED TEMP Last administered on 12/10/16 21:40; Admin Dose 650 MG; Start 12/10/16 at 21:00 Norepinephrine/ Dextrose (Levophed/D5W) 500 ml @ 1.87 mls/hr TITRATE IV Last administered on 12/11/16 00:20; Admin Dose 3.75 MLS/HR; Start 12/10/16 at 23:30 Acetaminophen (Tylenol Tab) 650 mg Q4H PRN PO NON-CARDIAC PAIN LEVEL (1-3); Start 12/11/16 at 13:00 Morphine Sulfate (morphine) 2 mg Q2H PRN IV FOR NON CARDIAC PAIN (4-10) Last administered on 12/11/16 21:11; Admin Dose 2 MG; Start 12/11/16 at 13:00 Al Hydrox/Mg Hydrox/Simethicone (Mag-Al Plus) 30 ml Q4H PRN PO GASTROINTESTINAL UPSET; Start 12/11/16 at 13:00 Ondansetron HCl (Zofran Inj) 4 mg Q4H PRN IV NAUSEA AND/OR VOMITING; Start at 13:00 MARY MONTEMAYOR Dec 12, 2016 08:45
[2016-12-12] MEDS: METOPROLOL 25 MG TAB PO SCH ×2 (09:00→20:31)
[2016-12-12] MEDS: DULOXETINE 20 MG CAP DR PO SCH (09:00)
[2016-12-12] MEDS: ASPIRIN (EC) 81 MG TAB PO SCH (09:58)
[2016-12-12] MEDS: GABAPENTIN 300 MG CAP PO SCH ×3 (09:58→20:26)
[2016-12-12] MEDS: FAMOTIDINE 20 MG TAB PO SCH ×2 (09:58→20:26)
[2016-12-12] MEDS: TICAGRELOR 90 MG TABLET PO SCH ×2 (09:59→20:29)
--- NOTE | 2016-12-12 10:33 | RADRPT ---
PROCEDURE: XR Chest 1 View. CLINICAL INDICATION: Shortness of breath TECHNIQUE: AP view of the chest was obtained. COMPARISON: December 10, 2016 FINDINGS: The cardiomediastinal silhouette is within normal limits. Endotracheal and nasogastric tubes are sta ble and appear in grossly appropriate location. Central pulmonary vascular congestion and interstit ial prominence in both lungs appears unchanged. Infiltrates in the periphery of the right upper lob e have mildly decreased. Minimal residual remains. Scattered atelectasis is noted in the left uppe r lobe. Atelectasis is noted at the lung bases. The osseous structures are unchanged. IMPRESSION: Stable central pulmonary vascular congestion and interstitial prominence in both lungs. Interval decrease in peripheral right upper lobe infiltrates. Mild residual remains. Scattered atelectasis in the left upper lobe and at the lung bases. RPTAT: AA .Vineet Pérez MD, Date Time Electronically viewed and signed by .Vineet Pérez MD, MD on 12/12/2016 10:33 .P/
--- NOTE | 2016-12-12 11:38 | CONS ---
Date/Time of Note Date/Time of Note DATE: 12/12/16 TIME: 11:33 Assessment/Plan Assessment/Plan Chief Complaint/Hosp Course IMP: 1.NSTEMI-peak trop>60 Now dowtrending. s/p LHC with patent RCA stents and high grade disease of LAD/LCX with small caliber vessels 2.cardiomyopathy-LVEF 40-45 BY OSH echo 3.Hypotension-currently off of pressors 4.resp failure s/p intubation 5.anemia 6. AMS Recc: -Tele -Follow BP closely -Continue asa/brilinta -Continue statin -Follow volume status clsoely -re-consult CT surg for possible CABG -Smokine cessation -Continue insulin and follow BS closely -low dose BB as tolerated Problems: Consultation Date/Type/Reason Admit Date/Time Dec 10, 2016 at 16:55 Initial Consult Date 12/12/16 Type of Consultation: Cardiology Reason for Consultation Nstemi Referring Provider: ROBEL PETTY MD Exam/Review of Systems Vital Signs Vitals Vital Signs Date Time Temp Pulse Resp B/P Pulse Ox O2 Delivery O2 Flow Rate FiO2 12/12/16 11:08 88 27 97 35 12/12/16 09:00 108/59 Mechanical Ventilator 12/12/16 08:00 99.8 Intake and Output 12/11/16 12/11/16 12/12/16 14:59 22:59 06:59 Intake Total 52.228 ml 39.674 ml 83.5 ml Output Total 245 ml 260 ml 300 ml Balance -192.772 ml -220.326 ml -216.5 ml Exam Review of Systems: CONSTITUTIONAL: No fevers, chills. PULMONARY: intubated CARDIOVASCULAR: No obvious chest pain/palpitations GASTROINTESTINAL: No nausea/vomiting. GENITOURINARY: No hematuria/dysuria. MUSCULOSKELETAL: No obvious myagias/arthalgias. PSYCHIATRIC: The patient denies depression. NEUROLOGIC: sedated Constitutional: other (sedated) Psych: no complaints Head: normocephalic ENMT: mucosa pink and moist Neck: jvd (9 cm water) Respiratory: diminished breath sounds (at bases/B) Cardiovascular: regular rate and rhythm Gastrointestinal: non-tender, soft Musculoskeletal: muscle tone (normal) Extremities: edema (trace/B) 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: other (sedated) Results Result Diagram: 12/11/16 0605 12/11/16 0605 Results 24 hrs Laboratory Tests Test 12/11/16 13:26 12/11/16 16:14 12/11/16 21:09 12/12/16 02:25 Bedside Glucose 103 85 115 Activated Partial Thromboplast Time 33.2 Test 12/12/16 05:13 12/12/16 09:28 12/12/16 10:02 Bedside Glucose 206 207 Activated Partial Thromboplast Time 45.1 H Medications Medications Current Medications Famotidine (Pepcid) 20 mg Q12 PO Last administered on 12/12/16 09:58; Admin Dose 20 MG; Start 12/10/16 at 21:00 Aspirin (Halfprin) 81 mg DAILY PO Last administered on 12/12/16 09:58; Admin Dose 81 MG; Start 12/11/16 at 09:00 Atorvastatin Calcium (Lipitor) 20 mg HS PO Last administered on 12/11/16 21:11 ; Admin Dose 20 MG; Start 12/10/16 at 21:00 Duloxetine HCl (Cymbalta) 20 mg DAILY PO Last administered on 12/11/16 09:01; Admin Dose 20 MG; Start 12/11/16 at 09:00 Gabapentin (Neurontin) 300 mg TID PO Last administered on 12/12/16 09:58; Admin Dose 300 MG; Start 12/10/16 at 21:00 Insulin Glargine (Lantus) 30 unit DAILY@20 SC Last administered on 12/10/16 20 :19; Admin Dose 30 UNIT; Start 12/10/16 at 20:00 Isosorbide Dinitrate (Isordil) 10 mg TID PO ; Start 12/10/16 at 21:00 Metoprolol Tartrate (Lopressor) 12.5 mg BID PO Last administered on 12/11/16 21:12; Admin Dose 12.5 MG; Start 12/10/16 at 21:00 Ticagrelor (Brilinta) 90 mg BID PO Last administered on 12/12/16 09:59; Admin Dose 90 MG; Start 12/10/16 at 21:00 Levothyroxine Sodium (Synthroid) 112 mcg DAILY@06 PO Last administered on 05:30; Admin Dose 112 MCG; Start 12/11/16 at 06:00 Insulin Aspart (Novolog Insulin Pen) NOVOLOG *MODERATE* ALGORI... Q4 SC Last administered on 12/12/16 10:05; Admin Dose 4 UNIT; Start 12/10/16 at 21:00 Miscellaneous Information 1 ea NOTE XX ; Start 12/10/16 at 18:30 Glucose (Glutose) 15 gm Q15M PRN PO DECREASED GLUCOSE; Start 12/10/16 at 18:30 Glucose (Glutose) 22.5 gm Q15M PRN PO DECREASED GLUCOSE; Start 12/10/16 at 18: 30 Dextrose (D50w Syringe) 25 ml Q15M PRN IV DECREASED GLUCOSE; Start 12/10/16 at 18:30 Dextrose (D50w Syringe) 50 ml Q15M PRN IV DECREASED GLUCOSE; Start 12/10/16 at 18:30 Glucagon (Glucagen) 1 mg Q15M PRN IM DECREASED GLUCOSE; Start 12/10/16 at 18:30 Glucose 15 gm 15 gm Q15M PRN BUCCAL DECREASED GLUCOSE; Start 12/10/16 at 18:30 Propofol (Diprivan) 100 ml @ 1.755 mls/ hr Q12H IV Last administered on 02:48; Admin Dose 4.563 MLS/HR; Start 12/10/16 at 19:00 Acetaminophen 650 mg 650 mg Q6H PRN NGT PAIN AND OR ELEVATED TEMP Last administered on 12/10/16 21:40; Admin Dose 650 MG; Start 12/10/16 at 21:00 Norepinephrine/ Dextrose (Levophed/D5W) 500 ml @ 1.87 mls/hr TITRATE IV Last administered on 12/11/16 00:20; Admin Dose 3.75 MLS/HR; Start 12/10/16 at 23:30 Acetaminophen (Tylenol Tab) 650 mg Q4H PRN PO NON-CARDIAC PAIN LEVEL (1-3); Start 12/11/16 at 13:00 Morphine Sulfate (morphine) 2 mg Q2H PRN IV FOR NON CARDIAC PAIN (4-10) Last administered on 12/11/16 21:11; Admin Dose 2 MG; Start 12/11/16 at 13:00 Al Hydrox/Mg Hydrox/Simethicone (Mag-Al Plus) 30 ml Q4H PRN PO GASTROINTESTINAL UPSET; Start 12/11/16 at 13:00 Ondansetron HCl (Zofran Inj) 4 mg Q4H PRN IV NAUSEA AND/OR VOMITING; Start at 13:00 RHONDA PENA Dec 12, 2016 11:38
[2016-12-12] MEDS: ATORVASTATIN 20 MG TAB PO SCH (20:26)
[2016-12-12] MEDS: INSULIN GLARGINE [LANtus] 3 ML PEN SC SCH (20:30)
[2016-12-13] VITALS (58 sets, daily range): BP systolic 86–114; BP diastolic 35–70; PULSE 77–107; RESP 10–24
[2016-12-13] MEDS: INSULIN ASPART [NOVOLOG] 3 ML PEN SC SCH ×6 (01:00→20:10)
[2016-12-13] MEDS: ACETAMINOPHEN 650MG/20.3ML CUP NGT PRN ×2 (04:59→17:31)
[2016-12-13] MEDS: PROPOFOL 100 ML IV SCH ×2 (05:00→15:20)
[2016-12-13] MEDS: LEVOTHYROXINE 112 MCG TAB PO SCH (05:00)
[2016-12-13 05:26] LABS: AADO2 Arterial 154.6 mmHg (7.0-24.0); Allen Test ACCEPTAB; Arterial Base Excess 0.4 mmol/L (-3.0-3); Arterial COHb 0.6 % (0.0-3.0); Arterial HCO3 22.7 mmol/L (22.0-26.0); Arterial MetHb 0.4 % (0.0-1.5); Arterial Total Hemglobin 17.9 g/dl (12.0-18.0); MODE VENT - AC
[2016-12-13] MEDS ORDERED: PIPER-TAZO 3.375 GM IV (PMX) 100 ML IVPB ONE (06:30)
[2016-12-13] MEDS: morphine 2 MG INJ IV PRN (06:51)
[2016-12-13 06:59] LABS: BASOPHILS % 0.2 % (0.0-2.0); EOSINOPHILS # 0.9 10^3/ul (0.0-0.5); EOSINOPHILS % 8.1 % (0.0-7.0); HEMATOCRIT 32.6 % (37.0-47.0); HEMOGLOBIN 10.5 g/dl (12.0-16.0); LYMPHOCYTES # 0.6 10^3/ul (0.8-2.9); LYMPHOCYTES % 5.6 % (15.0-51.0); MEAN CORPUSCULAR HEMOGLOBIN 30.6 pg (29.0-33.0); MEAN CORPUSCULAR HGB CONC 32.2 g/dl (32.0-37.0); MEAN PLATELET VOLUME 11.7 fl (7.4-10.4); MONOCYTE # 0.9 10^3/ul (0.3-0.9); MONOCYTES % 7.8 % (0.0-11.0); NEUTROPHIL # 8.6 10^3/ul (1.6-7.5); NEUTROPHILS % 77.8 % (39.0-77.0); PLATELET COUNT 178 10^3/UL (140-415); RED BLOOD COUNT 3.43 10^6/ul (4.20-5.40); RED CELL DISTRIBUTION WIDTH 13.5 % (11.5-14.5)
[2016-12-13 07:07] LABS: ALBUMIN 2.6 g/dl (3.3-4.9); ALBUMIN/GLOBULIN RATIO 1.08; BILIRUBIN,INDIRECT 0.7 mg/dl (0-1.1); BILIRUBIN,TOTAL 0.7 mg/dl (0.2-1.3); CALCIUM 8.3 mg/dl (8.4-10.2); CREATININE 0.5 mg/dl (0.44-1.00); POTASSIUM 3.3 mmol/L (3.5-5.1)
[2016-12-13 07:08] LABS: INR 1.05; PROTIME 13.7 Sec (12.2-14.2); PT RATIO 1.1
--- NOTE | 2016-12-13 08:46 | RADRPT ---
PROCEDURE: XR Chest 1 View. CLINICAL INDICATION: Shortness of breath TECHNIQUE: AP view of the chest was obtained. COMPARISON: Yesterday FINDINGS: The cardiomediastinal silhouette is within normal limits. Endotracheal and nasogastric tubes are sta ble and appear in grossly appropriate location. Right-sided PICC line is unchanged. Central pulmon adilia vascular congestion and interstitial prominence in both lungs is unchanged. Mild potential infi ltrates in the periphery of the bilateral upper lobes are unchanged. The osseous structures are unch anged. IMPRESSION: Stable central pulmonary vascular congestion and interstitial prominence in both lungs. Stable mild potential alveolar infiltrates in the periphery of the bilateral upper lobes. RPTAT: AA .Vineet Pérez MD, MD Date Time Electronically viewed and signed by .Vineet Pérez MD, on 12/13/2016 08:45 .P/
[2016-12-13] MEDS: METOPROLOL 25 MG TAB PO SCH ×2 (09:00→21:00)
[2016-12-13] MEDS: FAMOTIDINE 20 MG TAB PO SCH ×2 (09:32→21:23)
[2016-12-13] MEDS: DULOXETINE 20 MG CAP DR PO SCH (09:32)
[2016-12-13] MEDS: GABAPENTIN 300 MG CAP PO SCH ×3 (09:32→21:23)
[2016-12-13] MEDS: ASPIRIN (EC) 81 MG TAB PO SCH (09:32)
[2016-12-13] MEDS: TICAGRELOR 90 MG TABLET PO SCH ×2 (09:33→21:33)
[2016-12-13] MEDS ORDERED: POTASSIUM CHLORIDE 50 ML IVPB ONE (10:30)
[2016-12-13] MEDS ORDERED: FUROSEMIDE 20 MG INJ IV ONE (11:30)
[2016-12-13] MEDS ORDERED: ALBUMIN HUMAN 25% 100 ML IV ONE (11:30)
[2016-12-13] MEDS: FLUCONAZOLE 100 MG/NS (PMX) 50 ML IVPB SCH (11:50)
[2016-12-13] MEDS ORDERED: KCL 20 MEQ in NS 100 ML IV ONE (12:00)
[2016-12-13 12:25] LABS: ADD UMIC YES; UR ASCORBIC ACID 40 mg/dL (NEGATIVE); UR BILIRUBIN (Dip) NEGATIVE (NEGATIVE); UR BLOOD (Dip) NEGATIVE (NEGATIVE); UR BUDDING YEAST MODERATE /HPF (NONE SEEN); UR CLARITY SLIGHTLY CLOUDY (CLEAR); UR COLOR AMBER (YELLOW); UR GLUCOSE (Dip) NEGATIVE (NEGATIVE); UR KETONES (Dip) NEGATIVE (NEGATIVE); UR LEUKOCYTE ESTERASE (Dip) 1+ Leu/ul (NEGATIVE); UR MUCUS MANY /HPF (NONE SEEN); UR NITRITE (Dip) NEGATIVE (NEGATIVE); UR RBC 39 /HPF (0-5); UR SPECIFIC GRAVITY (Dip) 1.035 (1.003-1.030); UR SQUAMOUS EPITHELIAL CELL FEW /HPF (FEW); UR TOTAL PROTEIN (Dip) 2+ mg/dl (NEGATIVE); UR UROBILINOGEN (Dip) 1+ mg/dL (NEGATIVE)
[2016-12-13 12:39] LABS: UR RENAL EPITHELIAL CELL FEW /HPF (NONE SEEN)
[2016-12-13] MEDS: DEXTROSE 50% 50 ML SYRINGE IV PRN (13:10)
--- NOTE | 2016-12-13 13:37 | CONS ---
Date/Time of Note Date/Time of Note DATE: 12/13/16 TIME: 13:34 Assessment/Plan Assessment/Plan Additional Assessment/Plan 1.NSTEMI-peak trop>60 Now dowtrending. s/p LHC with patent RCA stents and high grade disease of LAD/LCX with small caliber vessels - CABG eval in progress 2.cardiomyopathy-LVEF 40-45 BY OSH echo - will repeat ECHO now 3.Hypotension-currently off of pressors - con't to follow 4.resp failure s/p intubation - con't resp Rx - in pulmonary edema- gentle diuresis now 5.anemia - H/H stable - no bleed 6. AMS- con't supportive care Consultation Date/Type/Reason Admit Date/Time Dec 10, 2016 at 16:55 Initial Consult Date 12/12/16 Type of Consultation: Cardiology Referring Provider: ROBEL PETTY MD 24 HR Interval Summary Free Text/Dictation No acute events - intubated - con't rx wiith gentle diuresis - no hemodynamic instability now ROS: No fever, no chills, no nausea, no vomiting, no diarrhea/constipation No recent weight changes No chest pain, no PND, no orthopnea No dizziness, blurred vision No thirst, no heat or cold intolerance (per nurse) Exam/Review of Systems Vital Signs Vitals Vital Signs Date Time Temp Pulse Resp B/P Pulse Ox O2 Delivery O2 Flow Rate FiO2 12/13/16 13:00 86 19 104/55 94 Mechanical Ventilator 12/13/16 11:00 98.2 12/13/16 08:00 40 Intake and Output 12/12/16 12/12/16 12/13/16 15:00 23:00 07:00 Intake Total 50 ml 193.46 ml 173.1 ml Output Total 320 ml 195 ml 225 ml Balance -270 ml -1.54 ml -51.9 ml Exam General: WN/WD/NAD, AOx 0 HEENT: Unicetric/atraumatic/EOMI (does not follow commands) NECK: JVD elevated 10 cm , no thyromegaly - intub Lymph: no lymphadenopathy HEART: regular with no S3, II/ systolic murmur at apex +S3 LUNGS: Coarse sounds ABD: soft, NT, ND, +BS : Intact Neuro: non focal SKIN: chronic changes EXT: trace edema Results Result Diagram: 12/13/16 0610 12/13/16 0610 Results 24 hrs Laboratory Tests Test 12/12/16 13:53 12/12/16 16:45 12/12/16 17:57 12/12/16 20:21 Bedside Glucose 230 H 186 142 Activated Partial Thromboplast Time 60.6 H Test 12/12/16 23:00 12/13/16 00:57 12/13/16 05:00 12/13/16 05:04 Activated Partial Thromboplast Time 45.5 H Bedside Glucose 101 70 Blood Gas Specimen Source Blood arterial Arterial Blood Date Drawn 12/13/2016 5:20:10 AM Arterial Blood pH (Temp corrected) 7.478 H Arterial Blood pCO2 (Temp correct) 31.3 L Arterial Blood pO2 (Temp corrected) 58.6 L Arterial Blood HCO3 22.7 Arterial Blood Base Excess 0.4 Arterial Blood Oxygen Saturation 91.9 L Miguel Test ACCEPTAB Arterial Blood Gas Puncture Site Left Radial Arterial Blood Carboxyhemoglobin 0.6 Arterial Blood Methemoglobin 0.4 Blood Gas A-a O2 Differential 154.6 H Oxyhemoglobin Percent 91.0 L Total Hemoglobin 17.9 Blood Gas Temperature 37.0 Blood Gas Respiration Rate 12.0 Blood Gas Actual Respiration Rate 21 Blood Gas Modality VENT - AC FiO2 35.0 Blood Gas Tidal Volume 450.0 Blood Gas Low PEEP Setting 5.0 Blood Gas Inspiratory Pressure 35.0 Blood Gas Notified Whom BR Blood Gas Notified Time 12/13/2016 5:26:00 AM Test 12/13/16 06:10 12/13/16 06:22 12/13/16 07:40 12/13/16 09:34 White Blood Count 11.0 H Red Blood Count 3.43 L Hemoglobin 10.5 L Hematocrit 32.6 L Mean Corpuscular Volume 95.0 Mean Corpuscular Hemoglobin 30.6 Mean Corpuscular Hemoglobin Concent 32.2 Red Cell Distribution Width 13.5 Platelet Count 178 # Mean Platelet Volume 11.7 H Neutrophils % 77.8 H Lymphocytes % 5.6 L Monocytes % 7.8 Eosinophils % 8.1 H Basophils % 0.2 Nucleated Red Blood Cells % 0.0 Neutrophils # 8.6 H Lymphocytes # 0.6 L Monocytes # 0.9 Eosinophils # 0.9 H Basophils # 0.0 Nucleated Red Blood Cells # 0.0 Prothrombin Time 13.7 Prothrombin Time Ratio 1.1 INR International Normalized Ratio 1.05 Activated Partial Thromboplast Time 56.0 H Sodium Level 146 H Potassium Level 3.3 L Chloride Level 108 Carbon Dioxide Level 28 Anion Gap 13 Blood Urea Nitrogen 21 H Creatinine 0.50 Glucose Level 114 Calcium Level 8.3 L Total Bilirubin 0.7 Direct Bilirubin 0.00 Indirect Bilirubin 0.7 Aspartate Amino Transf (AST/SGOT) 33 Alanine Aminotransferase (ALT/SGPT) 32 Alkaline Phosphatase 106 Total Protein 5.0 L Albumin 2.6 L Globulin 2.40 Albumin/Globulin Ratio 1.08 Bedside Glucose 127 85 Urine Color MARILU Urine Clarity SLIGHTLY CLOUDY A Urine pH 5.0 Urine Specific [place] 1.035 H Urine Ketones NEGATIVE Urine Nitrite NEGATIVE Urine Bilirubin NEGATIVE Urine Urobilinogen 1+ H Urine Leukocyte Esterase 1+ H Urine Microscopic RBC 39 H Urine Microscopic WBC 17 H Urine Squamous Epithelial Cells FEW Urine Renal Epithelial Cells FEW A Urine Mucus MANY A Urine Yeast (Budding) MODERATE A Urine Hemoglobin NEGATIVE Urine Glucose NEGATIVE Urine Total Protein 2+ H Test 12/13/16 13:04 Bedside Glucose 62 L Medications Medications Current Medications Famotidine (Pepcid) 20 mg Q12 PO Last administered on 12/13/16 09:32; Admin Dose 20 MG; Start 12/10/16 at 21:00 Aspirin (Halfprin) 81 mg DAILY PO Last administered on 12/13/16 09:32; Admin Dose 81 MG; Start 12/11/16 at 09:00 Atorvastatin Calcium (Lipitor) 20 mg HS PO Last administered on 12/12/16 20:26 ; Admin Dose 20 MG; Start 12/10/16 at 21:00 Duloxetine HCl (Cymbalta) 20 mg DAILY PO Last administered on 12/13/16 09:32; Admin Dose 20 MG; Start 12/11/16 at 09:00 Gabapentin (Neurontin) 300 mg TID PO Last administered on 12/13/16 13:12; Admin Dose 300 MG; Start 12/10/16 at 21:00 Insulin Glargine (Lantus) 30 unit DAILY@20 SC Last administered on 12/12/16 20 :30; Admin Dose 30 UNIT; Start 12/10/16 at 20:00 Metoprolol Tartrate (Lopressor) 12.5 mg BID PO Last administered on 12/11/16 21:12; Admin Dose 12.5 MG; Start 12/10/16 at 21:00 Ticagrelor (Brilinta) 90 mg BID PO Last administered on 12/13/16 09:33; Admin Dose 90 MG; Start 12/10/16 at 21:00 Levothyroxine Sodium (Synthroid) 112 mcg DAILY@06 PO Last administered on 05:00; Admin Dose 112 MCG; Start 12/11/16 at 06:00 Insulin Aspart (Novolog Insulin Pen) NOVOLOG *MODERATE* ALGORI... Q4 SC Last administered on 12/12/16 20:30; Admin Dose 2 UNIT; Start 12/10/16 at 21:00 Miscellaneous Information 1 ea NOTE XX ; Start 12/10/16 at 18:30 Glucose (Glutose) 15 gm Q15M PRN PO DECREASED GLUCOSE; Start 12/10/16 at 18:30 Glucose (Glutose) 22.5 gm Q15M PRN PO DECREASED GLUCOSE; Start 12/10/16 at 18: 30 Dextrose (D50w Syringe) 25 ml Q15M PRN IV DECREASED GLUCOSE Last administered on 12/13/16 13:10; Admin Dose 25 ML; Start 12/10/16 at 18:30 Dextrose (D50w Syringe) 50 ml Q15M PRN IV DECREASED GLUCOSE; Start 12/10/16 at 18:30 Glucagon (Glucagen) 1 mg Q15M PRN IM DECREASED GLUCOSE; Start 12/10/16 at 18:30 Glucose 15 gm 15 gm Q15M PRN BUCCAL DECREASED GLUCOSE; Start 12/10/16 at 18:30 Propofol (Diprivan) 100 ml @ 1.755 mls/ hr Q12H IV Last administered on 05:00; Admin Dose 10.881 MLS/HR; Start 12/10/16 at 19:00 Acetaminophen 650 mg 650 mg Q6H PRN NGT PAIN AND OR ELEVATED TEMP Last administered on 12/13/16 04:59; Admin Dose 650 MG; Start 12/10/16 at 21:00 Norepinephrine/ Dextrose (Levophed/D5W) 500 ml @ 1.87 mls/hr TITRATE IV Last administered on 12/11/16 00:20; Admin Dose 3.75 MLS/HR; Start 12/10/16 at 23:30 Acetaminophen (Tylenol Tab) 650 mg Q4H PRN PO NON-CARDIAC PAIN LEVEL (1-3); Start 12/11/16 at 13:00 Morphine Sulfate (morphine) 2 mg Q2H PRN IV FOR NON CARDIAC PAIN (4-10) Last administered on 12/13/16 06:51; Admin Dose 2 MG; Start 12/11/16 at 13:00 Al Hydrox/Mg Hydrox/Simethicone (Mag-Al Plus) 30 ml Q4H PRN PO GASTROINTESTINAL UPSET; Start 12/11/16 at 13:00 Ondansetron HCl 4 mg 4 mg Q4H PRN IV NAUSEA AND/OR VOMITING; Start 12/11/16 at 13:00 Fluconazole/ Sodium Chloride 50 ml @ 50 mls/hr Q24H IVPB Last administered on 11:50; Admin Dose 50 MLS/HR; Start 12/13/16 at 12:00 Potassium Chloride/Sodium Chloride (KCl/NS) 110 ml @ 55 mls/hr ONCE ONCE IV Last administered on 12/13/16 12:59; Admin Dose 55 MLS/HR; Start 12/13/16 at 12: 00; Stop 12/13/16 at 13:59 ARTIE MARADIAGA MD Dec 13, 2016 13:37
[2016-12-13] MEDS ORDERED: POTASSIUM CHLORIDE 250 ML IVPB ONE (14:00)
--- NOTE | 2016-12-13 15:10 | CONS ---
Date/Time of Note Date/Time of Note DATE: 12/13/16 TIME: 15:05 Assessment/Plan Assessment/Plan Chief Complaint/Hosp Course CAD Problems: Additional Assessment/Plan Pt with pul edema DKA CAD COPD Resp failure Not a candidate for surgery at this time will continue medical therapy Consultation Date/Type/Reason Admit Date/Time Dec 10, 2016 at 16:55 Type of Consultation: Cardiac Surgery Reason for Consultation Evaluation For CABG Constitutional: other (sedated) Respiratory: shortness of breath Cardiovascular: edema, other (hypotension) Gastrointestinal: no complaints Genitourinary: no complaints Musculoskeletal: no complaints Skin: no complaints Neurologic: other (sedated) Psychological: no complaints Past Medical History Medical History: coronary artery disease, diabetes, hypertension Past Surgical History Past Surgical Hx: other (prior PTCA/stent) Family History Significant Family History: heart disease, COPD Social History Alcohol Use: occasionally Smoking Status: Current every day smoker Drug Use: none Exam/Review of Systems Vital Signs Vitals Vital Signs Date Time Temp Pulse Resp B/P Pulse Ox O2 Delivery O2 Flow Rate FiO2 12/13/16 14:30 99 20 107/53 96 12/13/16 14:00 Mechanical Ventilator 12/13/16 13:30 99.7 12/13/16 08:00 40 Intake and Output 12/12/16 12/12/16 12/13/16 15:00 23:00 07:00 Intake Total 50 ml 193.46 ml 173.1 ml Output Total 320 ml 195 ml 225 ml Balance -270 ml -1.54 ml -51.9 ml Exam Psych: nl mood/affect, no complaints Head: atraumatic, normocephalic Eyes: EOMI, PERRL, nl conjunctiva, nl lids, nl sclera ENMT: nl external ears & nose, nl lips & teeth, nl nasal mucosa & septum Neck: non-tender, supple Respiratory: diminished breath sounds Gastrointestinal: nl liver, spleen, non-tender, soft Extremities: edema, normal pulses Skin: nl turgor, No rash or lesions Results Result Diagram: 12/13/16 0610 12/13/16 0610 Results 24 hrs Laboratory Tests Test 12/12/16 16:45 12/12/16 17:57 12/12/16 20:21 12/12/16 23:00 Activated Partial Thromboplast Time 60.6 H 45.5 H Bedside Glucose 186 142 Test 7/1/17 00:57 12/13/16 05:00 12/13/16 05:04 12/13/16 06:10 Bedside Glucose 101 70 Blood Gas Specimen Source Blood arterial Arterial Blood Date Drawn 12/13/2016 5:20:10 AM Arterial Blood pH (Temp corrected) 7.478 H Arterial Blood pCO2 (Temp correct) 31.3 L Arterial Blood pO2 (Temp corrected) 58.6 L Arterial Blood HCO3 22.7 Arterial Blood Base Excess 0.4 Arterial Blood Oxygen Saturation 91.9 L Miguel Test ACCEPTAB Arterial Blood Gas Puncture Site Left Radial Arterial Blood Carboxyhemoglobin 0.6 Arterial Blood Methemoglobin 0.4 Blood Gas A-a O2 Differential 154.6 H Oxyhemoglobin Percent 91.0 L Total Hemoglobin 17.9 Blood Gas Temperature 37.0 Blood Gas Respiration Rate 12.0 Blood Gas Actual Respiration Rate 21 Blood Gas Modality VENT - AC FiO2 35.0 Blood Gas Tidal Volume 450.0 Blood Gas Low PEEP Setting 5.0 Blood Gas Inspiratory Pressure 35.0 Blood Gas Notified Whom BR Blood Gas Notified Time 12/13/2016 5:26:00 AM White Blood Count 11.0 H Red Blood Count 3.43 L Hemoglobin 10.5 L Hematocrit 32.6 L Mean Corpuscular Volume 95.0 Mean Corpuscular Hemoglobin 30.6 Mean Corpuscular Hemoglobin Concent 32.2 Red Cell Distribution Width 13.5 Platelet Count 178 # Mean Platelet Volume 11.7 H Neutrophils % 77.8 H Lymphocytes % 5.6 L Monocytes % 7.8 Eosinophils % 8.1 H Basophils % 0.2 Nucleated Red Blood Cells % 0.0 Neutrophils # 8.6 H Lymphocytes # 0.6 L Monocytes # 0.9 Eosinophils # 0.9 H Basophils # 0.0 Nucleated Red Blood Cells # 0.0 Prothrombin Time 13.7 Prothrombin Time Ratio 1.1 INR International Normalized Ratio 1.05 Activated Partial Thromboplast Time 56.0 H Sodium Level 146 H Potassium Level 3.3 L Chloride Level 108 Carbon Dioxide Level 28 Anion Gap 13 Blood Urea Nitrogen 21 H Creatinine 0.50 Glucose Level 114 Calcium Level 8.3 L Total Bilirubin 0.7 Direct Bilirubin 0.00 Indirect Bilirubin 0.7 Aspartate Amino Transf (AST/SGOT) 33 Alanine Aminotransferase (ALT/SGPT) 32 Alkaline Phosphatase 106 Total Protein 5.0 L Albumin 2.6 L Globulin 2.40 Albumin/Globulin Ratio 1.08 Test 12/13/16 06:22 12/13/16 07:40 12/13/16 09:34 12/13/16 13:04 Bedside Glucose 127 85 62 L Urine Color MARILU Urine Clarity SLIGHTLY CLOUDY A Urine pH 5.0 Urine Specific [place] 1.035 H Urine Ketones NEGATIVE Urine Nitrite NEGATIVE Urine Bilirubin NEGATIVE Urine Urobilinogen 1+ H Urine Leukocyte Esterase 1+ H Urine Microscopic RBC 39 H Urine Microscopic WBC 17 H Urine Squamous Epithelial Cells FEW Urine Renal Epithelial Cells FEW A Urine Mucus MANY A Urine Yeast (Budding) MODERATE A Urine Hemoglobin NEGATIVE Urine Glucose NEGATIVE Urine Total Protein 2+ H Test 12/13/16 13:32 12/13/16 13:45 12/13/16 13:47 Bedside Glucose 195 184 Activated Partial Thromboplast Time 62.8 H Medications Medications Current Medications Famotidine (Pepcid) 20 mg Q12 PO Last administered on 12/13/16 09:32; Admin Dose 20 MG; Start 12/10/16 at 21:00 Aspirin (Halfprin) 81 mg DAILY PO Last administered on 12/13/16 09:32; Admin Dose 81 MG; Start 12/11/16 at 09:00 Atorvastatin Calcium (Lipitor) 20 mg HS PO Last administered on 12/12/16 20:26 ; Admin Dose 20 MG; Start 12/10/16 at 21:00 Duloxetine HCl (Cymbalta) 20 mg DAILY PO Last administered on 12/13/16 09:32; Admin Dose 20 MG; Start 12/11/16 at 09:00 Gabapentin (Neurontin) 300 mg TID PO Last administered on 12/13/16 13:12; Admin Dose 300 MG; Start 12/10/16 at 21:00 Insulin Glargine (Lantus) 30 unit DAILY@20 SC Last administered on 12/12/16 20 :30; Admin Dose 30 UNIT; Start 12/10/16 at 20:00 Metoprolol Tartrate (Lopressor) 12.5 mg BID PO Last administered on 12/11/16 21:12; Admin Dose 12.5 MG; Start 12/10/16 at 21:00 Ticagrelor (Brilinta) 90 mg BID PO Last administered on 12/13/16 09:33; Admin Dose 90 MG; Start 12/10/16 at 21:00 Levothyroxine Sodium (Synthroid) 112 mcg DAILY@06 PO Last administered on 05:00; Admin Dose 112 MCG; Start 12/11/16 at 06:00 Insulin Aspart (Novolog Insulin Pen) NOVOLOG *MODERATE* ALGORI... Q4 SC Last administered on 12/12/16 20:30; Admin Dose 2 UNIT; Start 12/10/16 at 21:00 Miscellaneous Information 1 ea NOTE XX ; Start 12/10/16 at 18:30 Glucose (Glutose) 15 gm Q15M PRN PO DECREASED GLUCOSE; Start 12/10/16 at 18:30 Glucose (Glutose) 22.5 gm Q15M PRN PO DECREASED GLUCOSE; Start 12/10/16 at 18: 30 Dextrose (D50w Syringe) 25 ml Q15M PRN IV DECREASED GLUCOSE Last administered on 12/13/16 13:10; Admin Dose 25 ML; Start 12/10/16 at 18:30 Dextrose (D50w Syringe) 50 ml Q15M PRN IV DECREASED GLUCOSE; Start 12/10/16 at 18:30 Glucagon (Glucagen) 1 mg Q15M PRN IM DECREASED GLUCOSE; Start 12/10/16 at 18:30 Glucose 15 gm 15 gm Q15M PRN BUCCAL DECREASED GLUCOSE; Start 12/10/16 at 18:30 Propofol (Diprivan) 100 ml @ 1.755 mls/ hr Q12H IV Last administered on 05:00; Admin Dose 10.881 MLS/HR; Start 12/10/16 at 19:00 Acetaminophen 650 mg 650 mg Q6H PRN NGT PAIN AND OR ELEVATED TEMP Last administered on 12/13/16 04:59; Admin Dose 650 MG; Start 12/10/16 at 21:00 Norepinephrine/ Dextrose (Levophed/D5W) 500 ml @ 1.87 mls/hr TITRATE IV Last administered on 12/11/16 00:20; Admin Dose 3.75 MLS/HR; Start 12/10/16 at 23:30 Acetaminophen (Tylenol Tab) 650 mg Q4H PRN PO NON-CARDIAC PAIN LEVEL (1-3); Start 12/11/16 at 13:00 Morphine Sulfate (morphine) 2 mg Q2H PRN IV FOR NON CARDIAC PAIN (4-10) Last administered on 12/13/16 06:51; Admin Dose 2 MG; Start 12/11/16 at 13:00 Al Hydrox/Mg Hydrox/Simethicone (Mag-Al Plus) 30 ml Q4H PRN PO GASTROINTESTINAL UPSET; Start 12/11/16 at 13:00 Ondansetron HCl 4 mg 4 mg Q4H PRN IV NAUSEA AND/OR VOMITING; Start 12/11/16 at 13:00 Fluconazole/ Sodium Chloride 50 ml @ 50 mls/hr Q24H IVPB Last administered on 11:50; Admin Dose 50 MLS/HR; Start 12/13/16 at 12:00 Potassium Chloride (KCl 40 MEQ/250 ML NS) 250 ml @ 62.5 mls/hr ONCE ONCE IVPB ; Start 12/13/16 at 14:00; Stop 12/13/16 at 17:59 CHELA ALVARENGA MD Dec 13, 2016 15:10
--- NOTE | 2016-12-13 15:47 | CONS ---
Date/Time of Note Date/Time of Note DATE: 12/13/16 TIME: 15:38 Consult Date/Type/Reason Admit Date/Time Dec 10, 2016 at 16:55 Initial Consult Date 12/12/16 Type of Consultation: Pulm/CCM Ordering Provider: ROBEL PETTY MD Subjective Sedated on MV on propofol gtt. Objective Vital Signs Date Time Temp Pulse Resp B/P Pulse Ox O2 Delivery O2 Flow Rate FiO2 12/13/16 14:30 99 20 107/53 96 12/13/16 14:00 Mechanical Ventilator 12/13/16 13:30 99.7 12/13/16 08:00 40 Intake and Output 12/12/16 12/12/16 12/13/16 15:00 23:00 07:00 Intake Total 50 ml 193.46 ml 173.1 ml Output Total 320 ml 195 ml 225 ml Balance -270 ml -1.54 ml -51.9 ml Exam HEENT: Neck supple; no JVD; no LAD; + ET tube CVS: RRR, S1 and S2 CHEST: Clear ABD: Soft, NT, + BS EXT: No c/c/e Results/Medications Result Diagram: 12/13/16 0610 12/13/16 0610 Results 24 hrs Laboratory Tests Test 12/12/16 16:45 12/12/16 17:57 12/12/16 20:21 12/12/16 23:00 Activated Partial Thromboplast Time 60.6 H 45.5 H Bedside Glucose 186 142 Test 12/13/16 00:57 12/13/16 05:00 12/13/16 05:04 12/13/16 06:10 Bedside Glucose 101 70 Blood Gas Specimen Source Blood arterial Arterial Blood Date Drawn 12/13/2016 5:20:10 AM Arterial Blood pH (Temp corrected) 7.478 H Arterial Blood pCO2 (Temp correct) 31.3 L Arterial Blood pO2 (Temp corrected) 58.6 L Arterial Blood HCO3 22.7 Arterial Blood Base Excess 0.4 Arterial Blood Oxygen Saturation 91.9 L Miguel Test ACCEPTAB Arterial Blood Gas Puncture Site Left Radial Arterial Blood Carboxyhemoglobin 0.6 Arterial Blood Methemoglobin 0.4 Blood Gas A-a O2 Differential 154.6 H Oxyhemoglobin Percent 91.0 L Total Hemoglobin 17.9 Blood Gas Temperature 37.0 Blood Gas Respiration Rate 12.0 Blood Gas Actual Respiration Rate 21 Blood Gas Modality VENT - AC FiO2 35.0 Blood Gas Tidal Volume 450.0 Blood Gas Low PEEP Setting 5.0 Blood Gas Inspiratory Pressure 35.0 Blood Gas Notified Whom BR Blood Gas Notified Time 12/13/2016 5:26:00 AM White Blood Count 11.0 H Red Blood Count 3.43 L Hemoglobin 10.5 L Hematocrit 32.6 L Mean Corpuscular Volume 95.0 Mean Corpuscular Hemoglobin 30.6 Mean Corpuscular Hemoglobin Concent 32.2 Red Cell Distribution Width 13.5 Platelet Count 178 # Mean Platelet Volume 11.7 H Neutrophils % 77.8 H Lymphocytes % 5.6 L Monocytes % 7.8 Eosinophils % 8.1 H Basophils % 0.2 Nucleated Red Blood Cells % 0.0 Neutrophils # 8.6 H Lymphocytes # 0.6 L Monocytes # 0.9 Eosinophils # 0.9 H Basophils # 0.0 Nucleated Red Blood Cells # 0.0 Prothrombin Time 13.7 Prothrombin Time Ratio 1.1 INR International Normalized Ratio 1.05 Activated Partial Thromboplast Time 56.0 H Sodium Level 146 H Potassium Level 3.3 L Chloride Level 108 Carbon Dioxide Level 28 Anion Gap 13 Blood Urea Nitrogen 21 H Creatinine 0.50 Glucose Level 114 Calcium Level 8.3 L Total Bilirubin 0.7 Direct Bilirubin 0.00 Indirect Bilirubin 0.7 Aspartate Amino Transf (AST/SGOT) 33 Alanine Aminotransferase (ALT/SGPT) 32 Alkaline Phosphatase 106 Total Protein 5.0 L Albumin 2.6 L Globulin 2.40 Albumin/Globulin Ratio 1.08 Test 12/13/16 06:22 12/13/16 07:40 12/13/16 09:34 12/13/16 13:04 Bedside Glucose 127 85 62 L Urine Color MARILU Urine Clarity SLIGHTLY CLOUDY A Urine pH 5.0 Urine Specific [place] 1.035 H Urine Ketones NEGATIVE Urine Nitrite NEGATIVE Urine Bilirubin NEGATIVE Urine Urobilinogen 1+ H Urine Leukocyte Esterase 1+ H Urine Microscopic RBC 39 H Urine Microscopic WBC 17 H Urine Squamous Epithelial Cells FEW Urine Renal Epithelial Cells FEW A Urine Mucus MANY A Urine Yeast (Budding) MODERATE A Urine Hemoglobin NEGATIVE Urine Glucose NEGATIVE Urine Total Protein 2+ H Test 12/13/16 13:32 12/13/16 13:45 12/13/16 13:47 Bedside Glucose 195 184 Activated Partial Thromboplast Time 62.8 H Medications Current Medications Famotidine (Pepcid) 20 mg Q12 PO Last administered on 12/13/16 09:32; Admin Dose 20 MG; Start 12/10/16 at 21:00 Aspirin (Halfprin) 81 mg DAILY PO Last administered on 12/13/16 09:32; Admin Dose 81 MG; Start 12/11/16 at 09:00 Atorvastatin Calcium (Lipitor) 20 mg HS PO Last administered on 12/12/16 20:26 ; Admin Dose 20 MG; Start 12/10/16 at 21:00 Duloxetine HCl (Cymbalta) 20 mg DAILY PO Last administered on 12/13/16 09:32; Admin Dose 20 MG; Start 12/11/16 at 09:00 Gabapentin (Neurontin) 300 mg TID PO Last administered on 12/13/16 13:12; Admin Dose 300 MG; Start 12/10/16 at 21:00 Insulin Glargine (Lantus) 30 unit DAILY@20 SC Last administered on 12/12/16 20 :30; Admin Dose 30 UNIT; Start 12/10/16 at 20:00 Metoprolol Tartrate (Lopressor) 12.5 mg BID PO Last administered on 12/11/16 21:12; Admin Dose 12.5 MG; Start 12/10/16 at 21:00 Ticagrelor (Brilinta) 90 mg BID PO Last administered on 12/13/16 09:33; Admin Dose 90 MG; Start 12/10/16 at 21:00 Levothyroxine Sodium (Synthroid) 112 mcg DAILY@06 PO Last administered on 05:00; Admin Dose 112 MCG; Start 12/11/16 at 06:00 Insulin Aspart (Novolog Insulin Pen) NOVOLOG *MODERATE* ALGORI... Q4 SC Last administered on 12/12/16 20:30; Admin Dose 2 UNIT; Start 12/10/16 at 21:00 Miscellaneous Information 1 ea NOTE XX ; Start 12/10/16 at 18:30 Glucose (Glutose) 15 gm Q15M PRN PO DECREASED GLUCOSE; Start 12/10/16 at 18:30 Glucose (Glutose) 22.5 gm Q15M PRN PO DECREASED GLUCOSE; Start 12/10/16 at 18: 30 Dextrose (D50w Syringe) 25 ml Q15M PRN IV DECREASED GLUCOSE Last administered on 12/13/16 13:10; Admin Dose 25 ML; Start 12/10/16 at 18:30 Dextrose (D50w Syringe) 50 ml Q15M PRN IV DECREASED GLUCOSE; Start 12/10/16 at 18:30 Glucagon (Glucagen) 1 mg Q15M PRN IM DECREASED GLUCOSE; Start 12/10/16 at 18:30 Glucose 15 gm 15 gm Q15M PRN BUCCAL DECREASED GLUCOSE; Start 12/10/16 at 18:30 Propofol (Diprivan) 100 ml @ 1.755 mls/ hr Q12H IV Last administered on 05:00; Admin Dose 10.881 MLS/HR; Start 12/10/16 at 19:00 Acetaminophen 650 mg 650 mg Q6H PRN NGT PAIN AND OR ELEVATED TEMP Last administered on 12/13/16 04:59; Admin Dose 650 MG; Start 12/10/16 at 21:00 Norepinephrine/ Dextrose (Levophed/D5W) 500 ml @ 1.87 mls/hr TITRATE IV Last administered on 12/11/16 00:20; Admin Dose 3.75 MLS/HR; Start 12/10/16 at 23:30 Acetaminophen (Tylenol Tab) 650 mg Q4H PRN PO NON-CARDIAC PAIN LEVEL (1-3); Start 12/11/16 at 13:00 Morphine Sulfate (morphine) 2 mg Q2H PRN IV FOR NON CARDIAC PAIN (4-10) Last administered on 12/13/16 06:51; Admin Dose 2 MG; Start 12/11/16 at 13:00 Al Hydrox/Mg Hydrox/Simethicone (Mag-Al Plus) 30 ml Q4H PRN PO GASTROINTESTINAL UPSET; Start 12/11/16 at 13:00 Ondansetron HCl 4 mg 4 mg Q4H PRN IV NAUSEA AND/OR VOMITING; Start 12/11/16 at 13:00 Fluconazole/ Sodium Chloride 50 ml @ 50 mls/hr Q24H IVPB Last administered on 11:50; Admin Dose 50 MLS/HR; Start 12/13/16 at 12:00 Potassium Chloride (KCl 40 MEQ/250 ML NS) 250 ml @ 62.5 mls/hr ONCE ONCE IVPB Last administered on 7/1/17at 15:16; Admin Dose 62.5 MLS/HR; Start 12/13/16 at 14:00; Stop 12/13/16 at 17:59 Assessment/Plan Additional Assessment/Plan IMP: 1. s/p NSTEMI 2. Resp Failure--due to pulm edema 3. AMS--improved 4. Anemia 5. HypoK+ RECS: 1. Wean in am: CPAP 5 PS 8 2. Hold TFs after 5 am tomorrow am 3. Obtain cultures 4. Am labs 35 min cc time SABINE NORTON MD Dec 13, 2016 15:47
[2016-12-13] MEDS ORDERED: METOCLOPRAMIDE 10 MG INJ IV ONE (17:30)
[2016-12-13] MEDS: HEPARIN 25000 UNITS/250 ML 250 ML IV SCH (17:47)
--- NOTE | 2016-12-13 17:59 | RADRPT ---
Echocardiogram Report Patient Name: POOJA NGUYEN Gender: Female Date: 1960 Study Date: 13-Dec-2016 Consultant Nurse: Sheila [facility] Location: 120 Ref. Physician: RHONDA PENA Quality: Adequate Procedures: Transthoracic echocardiogram with complete 2D, M-Mode, and doppler examination. Indications: post pathology laboratory technologist evaluation. 2D/M Mode Doppler Measurement Value Normal Ranges Measurement Value Normal Ranges LVIDd 2D 4.2 3.5 - 5.6 cm AV Peak Geo 1.6 m/sec LVIDs 2D 3.4 2.1 - 4.1 cm AV Peak PG 10.0 mmHg FS 2D 19.2 % AI Peak PG 51.0 mmHg LVPWd 2D 1.3 0.6 - 1.1 cm AI Peak Geo 3.6 m/sec IVSd 2D 1.3 0.6 - 1.1 cm AI PHT 310.0 msec IVS/LVPW 2D 1.0 LVOT Peak Geo 1.1 m/sec AoR Diam 2D 1.8 2.0 - 3.7 cm LVOT Peak PG 5.0 mmHg LA/Ao 2D 2 0 - 1 MV E Peak Geo 0.8 m/sec EDV 2D 72.0 cm3 MV A Peak Geo 1.0 m/sec ESV 2D 37.9 cm3 MV E/A 0.9 LA Dimen 2D 3.6 2.3 - 4.0 cm MV Decel Time 155 msec MV E/A 0.9 MR Peak PG 65.0 mmHg MR Peak Geo 4.0 m/sec TR Peak Geo 2.6 m/sec TR Peak PG 27.0 mmHg RVSP 36.0 mmHg Findings Left Ventricle: Normal left ventricular cavity size. Mild concentric left ventricular hypertrophy. Severe global left ventricular systolic dysfunction. Ejection fraction is visually estimated at 25 %. Tissue Doppler/Mitral Doppler indices are consistent with impaired relaxation (Stage I diastolic dysfunction). Right Ventricle: Normal right ventricular size. Normal right ventricular systolic function. Left Atrium: The left atrium is normal in size. Right Atrium: The right atrium is normal in size. Mitral Valve: Mitral valve leaflets appear mildly thickened. Mild mitral valve regurgitation. Aortic Valve: Aortic sclerosis without stenosis. Mild aortic valve regurgitation. Tricuspid Valve: Normal appearance of the tricuspid valve. Estimated peak PA systolic pressure 36 mmHg. There is mild tricuspid regurgitation. Pulmonic Valve: Normal pulmonic valve appearance. There is trace pulmonic regurgitation. Pericardium: Normal pericardium with no significant pericardial effusion. Aorta: Normal aortic root. IVC: Inferior vena cava with poor respiratory collapse, however, patient on ventilator. Conclusions 1.Normal left ventricular cavity size. Mild concentric left ventricular hypertrophy. Severe global left ventricular systolic dysfunction. Ejection fraction is visually estimated at 25 %. Tissue Doppler/Mitral Doppler indices are consistent with impaired relaxation (Stage I diastolic dysfunction). 2.Aortic sclerosis without stenosis. Mild aortic valve regurgitation. 3.Mitral valve leaflets appear mildly thickened. Mild mitral valve regurgitation. 4.Normal appearance of the tricuspid valve. Estimated peak PA systolic pressure 36 mmHg. There is mild tricuspid regurgitation. Electronically Signed By: Julián Ibrahim 13-Dec-2016 17:58:50 -0700 Patient Name: POOJA NGUYEN Study Date: 13-Dec-2016 [id number]
--- NOTE | 2016-12-13 19:18 | PN ---
Date/Time of Note Date/Time of Note DATE: 12/13/16 TIME: 19:16 Assessment/Plan VTE Prophylaxis VTE Prophylaxis Intervention: heparin Lines/Catheters IV Catheter Type (from Nrsg): PICC Line Central line still needed: Yes (Difficult IV access, in resp failure, IV abx, IVF ) Urinary Cath still in place: Yes Reason Cath still needed: urinary retention, other (indicate) (Strict I/O ) Assessment/Plan Assessment/Plan # acute NSTEMI with troponin upto 60s at outside hospital - s/p LHC 12/11/16 which showed patent RCA stents and high grade disease of LAD/LCX with small caliber vessels on heparin gtt, Cardiology on board, management as per cardiology #DM2 with DKA- s/p Insulin drip at [facility] -cont subQ insulin, now Blood sugar controlled #diabetic neuropathy? cont home neurontin and cymbalta # acute resp failure due to pulm edema requiring intubation pulmonary following #CHF diuresis as per cardiology #hypothyroid cont home synthroid prophx: H2b while on vent, heparin drip KCl replacement, Start tube feeding, Reglan 10mg IV x 1 due to high residual ventilator care as per pulmonary BP stable afebrile ALbumin with lasix for urine output Exam/Review of Systems Vital Signs Vitals Vital Signs Date Time Temp Pulse Resp B/P Pulse Ox O2 Delivery O2 Flow Rate FiO2 12/13/16 18:30 100.3 94 22 91/41 97 12/13/16 18:00 Mechanical Ventilator 12/13/16 17:40 40 Intake and Output 12/12/16 12/12/16 12/13/16 15:00 23:00 07:00 Intake Total 50 ml 193.46 ml 173.1 ml Output Total 320 ml 195 ml 225 ml Balance -270 ml -1.54 ml -51.9 ml Exam Constitutional: other (intubated ) Psych: no complaints Head: normocephalic Eyes: nl conjunctiva ENMT: nl external ears & nose Neck: supple Respiratory: other (bibasilar rales ) Cardiovascular: regular rate and rhythm Gastrointestinal: non-tender, soft Musculoskeletal: nl extremities to inspection Extremities: normal pulses Results Result Diagram: 12/13/16 0610 12/13/16 0610 Results 24 hrs Laboratory Tests Test 12/12/16 20:21 12/12/16 23:00 12/13/16 00:57 12/13/16 05:00 Bedside Glucose 142 101 Activated Partial Thromboplast Time 45.5 H Blood Gas Specimen Source Blood arterial Arterial Blood Date Drawn 12/13/2016 5:20:10 AM Arterial Blood pH (Temp corrected) 7.478 H Arterial Blood pCO2 (Temp correct) 31.3 L Arterial Blood pO2 (Temp corrected) 58.6 L Arterial Blood HCO3 22.7 Arterial Blood Base Excess 0.4 Arterial Blood Oxygen Saturation 91.9 L Miguel Test ACCEPTAB Arterial Blood Gas Puncture Site Left Radial Arterial Blood Carboxyhemoglobin 0.6 Arterial Blood Methemoglobin 0.4 Blood Gas A-a O2 Differential 154.6 H Oxyhemoglobin Percent 91.0 L Total Hemoglobin 17.9 Blood Gas Temperature 37.0 Blood Gas Respiration Rate 12.0 Blood Gas Actual Respiration Rate 21 Blood Gas Modality VENT - AC FiO2 35.0 Blood Gas Tidal Volume 450.0 Blood Gas Low PEEP Setting 5.0 Blood Gas Inspiratory Pressure 35.0 Blood Gas Notified Whom BR Blood Gas Notified Time 12/13/2016 5:26:00 AM Test 12/13/16 05:04 12/13/16 06:10 12/13/16 06:22 12/13/16 07:40 Bedside Glucose 70 127 White Blood Count 11.0 H Red Blood Count 3.43 L Hemoglobin 10.5 L Hematocrit 32.6 L Mean Corpuscular Volume 95.0 Mean Corpuscular Hemoglobin 30.6 Mean Corpuscular Hemoglobin Concent 32.2 Red Cell Distribution Width 13.5 Platelet Count 178 # Mean Platelet Volume 11.7 H Neutrophils % 77.8 H Lymphocytes % 5.6 L Monocytes % 7.8 Eosinophils % 8.1 H Basophils % 0.2 Nucleated Red Blood Cells % 0.0 Neutrophils # 8.6 H Lymphocytes # 0.6 L Monocytes # 0.9 Eosinophils # 0.9 H Basophils # 0.0 Nucleated Red Blood Cells # 0.0 Prothrombin Time 13.7 Prothrombin Time Ratio 1.1 INR International Normalized Ratio 1.05 Activated Partial Thromboplast Time 56.0 H Sodium Level 146 H Potassium Level 3.3 L Chloride Level 108 Carbon Dioxide Level 28 Anion Gap 13 Blood Urea Nitrogen 21 H Creatinine 0.50 Glucose Level 114 Calcium Level 8.3 L Total Bilirubin 0.7 Direct Bilirubin 0.00 Indirect Bilirubin 0.7 Aspartate Amino Transf (AST/SGOT) 33 Alanine Aminotransferase (ALT/SGPT) 32 Alkaline Phosphatase 106 Total Protein 5.0 L Albumin 2.6 L Globulin 2.40 Albumin/Globulin Ratio 1.08 Urine Color MARILU Urine Clarity SLIGHTLY CLOUDY A Urine pH 5.0 Urine Specific [place] 1.035 H Urine Ketones NEGATIVE Urine Nitrite NEGATIVE Urine Bilirubin NEGATIVE Urine Urobilinogen 1+ H Urine Leukocyte Esterase 1+ H Urine Microscopic RBC 39 H Urine Microscopic WBC 17 H Urine Squamous Epithelial Cells FEW Urine Renal Epithelial Cells FEW A Urine Mucus MANY A Urine Yeast (Budding) MODERATE A Urine Hemoglobin NEGATIVE Urine Glucose NEGATIVE Urine Total Protein 2+ H Test 12/13/16 09:34 12/13/16 13:04 12/13/16 13:32 12/13/16 13:45 Bedside Glucose 85 62 L 195 Activated Partial Thromboplast Time 62.8 H Test 12/13/16 13:47 12/13/16 16:27 Bedside Glucose 184 187 Medications Medications Current Medications Famotidine (Pepcid) 20 mg Q12 PO Last administered on 12/13/16 09:32; Admin Dose 20 MG; Start 12/10/16 at 21:00 Aspirin (Halfprin) 81 mg DAILY PO Last administered on 12/13/16 09:32; Admin Dose 81 MG; Start 12/11/16 at 09:00 Atorvastatin Calcium (Lipitor) 20 mg HS PO Last administered on 12/12/16 20:26 ; Admin Dose 20 MG; Start 12/10/16 at 21:00 Duloxetine HCl (Cymbalta) 20 mg DAILY PO Last administered on 12/13/16 09:32; Admin Dose 20 MG; Start 12/11/16 at 09:00 Gabapentin (Neurontin) 300 mg TID PO Last administered on 12/13/16 13:12; Admin Dose 300 MG; Start 12/10/16 at 21:00 Insulin Glargine (Lantus) 30 unit DAILY@20 SC Last administered on 12/12/16 20 :30; Admin Dose 30 UNIT; Start 12/10/16 at 20:00 Metoprolol Tartrate (Lopressor) 12.5 mg BID PO Last administered on 12/11/16 21:12; Admin Dose 12.5 MG; Start 12/10/16 at 21:00 Ticagrelor (Brilinta) 90 mg BID PO Last administered on 12/13/16 09:33; Admin Dose 90 MG; Start 12/10/16 at 21:00 Levothyroxine Sodium (Synthroid) 112 mcg DAILY@06 PO Last administered on 05:00; Admin Dose 112 MCG; Start 12/11/16 at 06:00 Insulin Aspart (Novolog Insulin Pen) NOVOLOG *MODERATE* ALGORI... Q4 SC Last administered on 12/13/16 16:29; Admin Dose 4 UNIT; Start 12/10/16 at 21:00 Miscellaneous Information 1 ea NOTE XX ; Start 12/10/16 at 18:30 Glucose (Glutose) 15 gm Q15M PRN PO DECREASED GLUCOSE; Start 12/10/16 at 18:30 Glucose (Glutose) 22.5 gm Q15M PRN PO DECREASED GLUCOSE; Start 12/10/16 at 18: 30 Dextrose (D50w Syringe) 25 ml Q15M PRN IV DECREASED GLUCOSE Last administered on 12/13/16 13:10; Admin Dose 25 ML; Start 12/10/16 at 18:30 Dextrose (D50w Syringe) 50 ml Q15M PRN IV DECREASED GLUCOSE; Start 12/10/16 at 18:30 Glucagon (Glucagen) 1 mg Q15M PRN IM DECREASED GLUCOSE; Start 12/10/16 at 18:30 Glucose 15 gm 15 gm Q15M PRN BUCCAL DECREASED GLUCOSE; Start 12/10/16 at 18:30 Propofol (Diprivan) 100 ml @ 1.755 mls/ hr Q12H IV Last administered on 15:20; Admin Dose 8.775 MLS/HR; Start 12/10/16 at 19:00 Acetaminophen 650 mg 650 mg Q6H PRN NGT PAIN AND OR ELEVATED TEMP Last administered on 12/13/16 17:31; Admin Dose 650 MG; Start 12/10/16 at 21:00 Norepinephrine/ Dextrose (Levophed/D5W) 500 ml @ 1.87 mls/hr TITRATE IV Last administered on 12/11/16 00:20; Admin Dose 3.75 MLS/HR; Start 12/10/16 at 23:30 Acetaminophen (Tylenol Tab) 650 mg Q4H PRN PO NON-CARDIAC PAIN LEVEL (1-3); Start 12/11/16 at 13:00 Morphine Sulfate (morphine) 2 mg Q2H PRN IV FOR NON CARDIAC PAIN (4-10) Last administered on 12/13/16 06:51; Admin Dose 2 MG; Start 12/11/16 at 13:00 Al Hydrox/Mg Hydrox/Simethicone (Mag-Al Plus) 30 ml Q4H PRN PO GASTROINTESTINAL UPSET; Start 12/11/16 at 13:00 Ondansetron HCl 4 mg 4 mg Q4H PRN IV NAUSEA AND/OR VOMITING; Start 12/11/16 at 13:00 Fluconazole/ Sodium Chloride (Diflucan 100 Mg/ NS (Pmx)) 50 ml @ 50 mls/hr Q24H IVPB Last administered on 12/13/16 11:50; Admin Dose 50 MLS/HR; Start 12/13/16 at 12:00 WARREN WILLIAMSON MD Dec 13, 2016 19:18
[2016-12-13] MEDS: INSULIN GLARGINE [LANtus] 3 ML PEN SC SCH (20:09)
[2016-12-13] MEDS: ATORVASTATIN 20 MG TAB PO SCH (21:23)
[2016-12-14] VITALS (56 sets, daily range): BP systolic 91–112; BP diastolic 35–72; PULSE 80–151; RESP 9–25
[2016-12-14] MEDS: PROPOFOL 100 ML IV SCH ×3 (00:16→18:40)
[2016-12-14] MEDS: INSULIN ASPART [NOVOLOG] 3 ML PEN SC SCH ×6 (01:27→21:03)
[2016-12-14 04:19] LABS: INR 1.13; PROTIME 14.5 Sec (12.2-14.2); PT RATIO 1.1
[2016-12-14 04:22] LABS: BASOPHILS % 0.2 % (0.0-2.0); EOSINOPHILS # 0.8 10^3/ul (0.0-0.5); EOSINOPHILS % 8.9 % (0.0-7.0); HEMATOCRIT 30.8 % (37.0-47.0); HEMOGLOBIN 9.8 g/dl (12.0-16.0); LYMPHOCYTES # 0.8 10^3/ul (0.8-2.9); LYMPHOCYTES % 8.3 % (15.0-51.0); MEAN CORPUSCULAR HEMOGLOBIN 30.2 pg (29.0-33.0); MEAN CORPUSCULAR HGB CONC 31.8 g/dl (32.0-37.0); MEAN CORPUSCULAR VOLUME 94.8 fl (82.0-101.0); MONOCYTE # 0.8 10^3/ul (0.3-0.9); MONOCYTES % 9.2 % (0.0-11.0); NEUTROPHIL # 6.5 10^3/ul (1.6-7.5); NEUTROPHILS % 72.4 % (39.0-77.0); PLATELET COUNT 192 10^3/UL (140-415); RED BLOOD COUNT 3.25 10^6/ul (4.20-5.40); RED CELL DISTRIBUTION WIDTH 13.7 % (11.5-14.5)
[2016-12-14 04:25] LABS: ALBUMIN 2.9 g/dl (3.3-4.9); ALBUMIN/GLOBULIN RATIO 1.31; BILIRUBIN,INDIRECT 0.5 mg/dl (0-1.1); BILIRUBIN,TOTAL 0.5 mg/dl (0.2-1.3); CALCIUM 8.5 mg/dl (8.4-10.2); CREATININE 0.53 mg/dl (0.44-1.00); POTASSIUM 3.6 mmol/L (3.5-5.1); TOTAL PROTEIN 5.1 g/dl (6.1-8.1)
[2016-12-14 04:51] LABS: ADD SCAN DIFF NO
[2016-12-14 05:05] LABS: PARTIAL THROMBOPLASTIN TIME 78.9 Sec (25.0-35.0)
[2016-12-14] MEDS: LEVOTHYROXINE 112 MCG TAB PO SCH (06:30)
[2016-12-14] MEDS: FAMOTIDINE 20 MG TAB PO SCH ×2 (08:45→20:55)
[2016-12-14] MEDS: ASPIRIN (EC) 81 MG TAB PO SCH (08:45)
[2016-12-14] MEDS: morphine 2 MG INJ IV PRN (08:45)
[2016-12-14] MEDS: DULOXETINE 20 MG CAP DR PO SCH (08:45)
[2016-12-14] MEDS: GABAPENTIN 300 MG CAP PO SCH ×3 (08:46→20:55)
[2016-12-14] MEDS: TICAGRELOR 90 MG TABLET PO SCH ×2 (08:52→21:02)
[2016-12-14] MEDS: METOPROLOL 25 MG TAB PO SCH ×2 (09:00→21:00)
--- NOTE | 2016-12-14 10:04 | RADRPT ---
PROCEDURE: XR Chest. CLINICAL INDICATION: Respiratory distress. TECHNIQUE: AP view of the chest was performed. COMPARISON: December 13, 2016 FINDINGS: The endotracheal tube, nasogastric tube, and right PICC line remain in good positioning. There is p ersistent mild fluid overload with mild interstitial pulmonary edema. The heart size is stable and normal. No pneumothorax or pleural effusion. The osseous structures are intact. IMPRESSION: Support lines and tubes in good positioning. Persistent mild fluid overload. RPTAT: QQ. .Lyndsey Friend MD, MD Date Time Electronically viewed and signed by .Lyndsey Friend MD, MD on 12/14/2016 10:04 .F/
[2016-12-14] MEDS: FLUCONAZOLE 100 MG/NS (PMX) 50 ML IVPB SCH (11:58)
--- NOTE | 2016-12-14 12:03 | CONS ---
Date/Time of Note Date/Time of Note DATE: 12/14/16 TIME: 12:00 Consult Date/Type/Reason Admit Date/Time Dec 10, 2016 at 16:55 Initial Consult Date 12/12/16 Type of Consultation: Pulm/CCM Ordering Provider: ROBEL PETTY MD Subjective Failed weaning this am with rapid shallow breathing. Objective Vital Signs Date Time Temp Pulse Resp B/P Pulse Ox O2 Delivery O2 Flow Rate FiO2 12/14/16 11:48 98 19 96 40 12/14/16 10:00 96/41 Mechanical Ventilator 12/14/16 08:00 99.8 Intake and Output 12/13/16 12/13/16 12/14/16 15:00 23:00 07:00 Intake Total 903.9 ml 309.8 ml 376.6 ml Output Total 1005 ml 615 ml 240 ml Balance -101.1 ml -305.2 ml 136.6 ml Exam HEENT: Neck supple; no JVD; no LAD; + ET tube CVS: RRR, S1 and S2 CHEST: Bibasilar rales ABD: Soft, NT, + BS EXT: No c/c/e Results/Medications Result Diagram: 12/14/16 0330 12/14/16 0330 Results 24 hrs Laboratory Tests Test 12/13/16 13:04 12/13/16 13:32 12/13/16 13:45 12/13/16 13:47 Bedside Glucose 62 L 195 184 Activated Partial Thromboplast Time 62.8 H Test 12/13/16 16:27 12/13/16 19:55 12/13/16 20:05 12/14/16 01:23 Bedside Glucose 187 207 155 Activated Partial Thromboplast Time 83.6 *H Test 12/14/16 03:30 12/14/16 05:11 12/14/16 08:49 White Blood Count 9.0 Red Blood Count 3.25 L Hemoglobin 9.8 L Hematocrit 30.8 L Mean Corpuscular Volume 94.8 Mean Corpuscular Hemoglobin 30.2 Mean Corpuscular Hemoglobin Concent 31.8 L Red Cell Distribution Width 13.7 Platelet Count 192 Mean Platelet Volume 11.0 H Neutrophils % 72.4 Lymphocytes % 8.3 L Monocytes % 9.2 Eosinophils % 8.9 H Basophils % 0.2 Nucleated Red Blood Cells % 0.0 Neutrophils # 6.5 Lymphocytes # 0.8 Monocytes # 0.8 Eosinophils # 0.8 H Basophils # 0.0 Nucleated Red Blood Cells # 0.0 Prothrombin Time 14.5 H Prothrombin Time Ratio 1.1 INR International Normalized Ratio 1.13 Activated Partial Thromboplast Time 78.9 *H Sodium Level 145 H Potassium Level 3.6 Chloride Level 108 Carbon Dioxide Level 32 H Anion Gap 9 Blood Urea Nitrogen 19 Creatinine 0.53 Glucose Level 110 Calcium Level 8.5 Phosphorus Level 2.7 Magnesium Level 2.1 Total Bilirubin 0.5 Direct Bilirubin 0.00 Indirect Bilirubin 0.5 Aspartate Amino Transf (AST/SGOT) 29 Alanine Aminotransferase (ALT/SGPT) 36 Alkaline Phosphatase 104 Total Protein 5.1 L Albumin 2.9 L Globulin 2.20 Albumin/Globulin Ratio 1.31 Bedside Glucose 128 110 Medications Current Medications Famotidine (Pepcid) 20 mg Q12 PO Last administered on 12/14/16 08:45; Admin Dose 20 MG; Start 12/10/16 at 21:00 Aspirin (Halfprin) 81 mg DAILY PO Last administered on 12/14/16 08:45; Admin Dose 81 MG; Start 12/11/16 at 09:00 Atorvastatin Calcium (Lipitor) 20 mg HS PO Last administered on 12/13/16 21:23 ; Admin Dose 20 MG; Start 12/10/16 at 21:00 Duloxetine HCl (Cymbalta) 20 mg DAILY PO Last administered on 12/14/16 08:45; Admin Dose 20 MG; Start 12/11/16 at 09:00 Gabapentin (Neurontin) 300 mg TID PO Last administered on 12/14/16 08:46; Admin Dose 300 MG; Start 12/10/16 at 21:00 Insulin Glargine (Lantus) 30 unit DAILY@20 SC Last administered on 12/13/16 20: 09; Admin Dose 30 UNIT; Start 12/10/16 at 20:00 Metoprolol Tartrate (Lopressor) 12.5 mg BID PO Last administered on 12/11/16 21:12; Admin Dose 12.5 MG; Start 12/10/16 at 21:00 Ticagrelor (Brilinta) 90 mg BID PO Last administered on 12/14/16 08:52; Admin Dose 90 MG; Start 12/10/16 at 21:00 Levothyroxine Sodium (Synthroid) 112 mcg DAILY@06 PO Last administered on 06:30; Admin Dose 112 MCG; Start 12/11/16 at 06:00 Insulin Aspart (Novolog Insulin Pen) NOVOLOG *MODERATE* ALGORI... Q4 SC Last administered on 12/14/16 01:27; Admin Dose 2 UNIT; Start 12/10/16 at 21:00 Miscellaneous Information 1 ea NOTE XX ; Start 12/10/16 at 18:30 Glucose (Glutose) 15 gm Q15M PRN PO DECREASED GLUCOSE; Start 12/10/16 at 18:30 Glucose (Glutose) 22.5 gm Q15M PRN PO DECREASED GLUCOSE; Start 12/10/16 at 18: 30 Dextrose (D50w Syringe) 25 ml Q15M PRN IV DECREASED GLUCOSE Last administered on 12/13/16 13:10; Admin Dose 25 ML; Start 12/10/16 at 18:30 Dextrose (D50w Syringe) 50 ml Q15M PRN IV DECREASED GLUCOSE; Start 12/10/16 at 18:30 Glucagon (Glucagen) 1 mg Q15M PRN IM DECREASED GLUCOSE; Start 12/10/16 at 18:30 Glucose 15 gm 15 gm Q15M PRN BUCCAL DECREASED GLUCOSE; Start 12/10/16 at 18:30 Propofol (Diprivan) 100 ml @ 1.755 mls/ hr Q12H IV Last administered on 00:16; Admin Dose 8.775 MLS/HR; Start 12/10/16 at 19:00 Acetaminophen 650 mg 650 mg Q6H PRN NGT PAIN AND OR ELEVATED TEMP Last administered on 12/13/16 17:31; Admin Dose 650 MG; Start 12/10/16 at 21:00 Norepinephrine/ Dextrose (Levophed/D5W) 500 ml @ 1.87 mls/hr TITRATE IV Last administered on 12/11/16 00:20; Admin Dose 3.75 MLS/HR; Start 12/10/16 at 23:30 Acetaminophen (Tylenol Tab) 650 mg Q4H PRN PO NON-CARDIAC PAIN LEVEL (1-3); Start 12/11/16 at 13:00 Morphine Sulfate (morphine) 2 mg Q2H PRN IV FOR NON CARDIAC PAIN (4-10) Last administered on 12/14/16 08:45; Admin Dose 2 MG; Start 12/11/16 at 13:00 Al Hydrox/Mg Hydrox/Simethicone (Mag-Al Plus) 30 ml Q4H PRN PO GASTROINTESTINAL UPSET; Start 12/11/16 at 13:00 Ondansetron HCl 4 mg 4 mg Q4H PRN IV NAUSEA AND/OR VOMITING; Start 12/11/16 at 13:00 Fluconazole/ Sodium Chloride (Diflucan 100 Mg/ NS (Pmx)) 50 ml @ 50 mls/hr Q24H IVPB Last administered on 12/13/16 11:50; Admin Dose 50 MLS/HR; Start 12/13/16 at 12:00 Permethrin (Nix) 1 applic DAILY TOP ; Start 12/14/16 at 12:00; Stop 12/16/16 at 09 :01; Status UNV Assessment/Plan Additional Assessment/Plan IMP: 1. s/p NSTEMI 2. Resp Failure--due to pulm edema 3. AMS--improved 4. Anemia 5. HypoK+ RECS: 1. More aggressive diuresis 2. CPAP trial in am 3. Precedex gtt to facilitate weaning given concern for agitation off sedation 4. Am labs/CXR 35 min cc time SABINE NORTON MD Dec 14, 2016 12:02
[2016-12-14] MEDS ORDERED: PERMETHRIN 1% 59 ML TOP SCH (13:00)
[2016-12-14] MEDS: FUROSEMIDE 20 MG INJ IV SCH ×2 (13:13→18:00)
--- NOTE | 2016-12-14 13:18 | CONS ---
Date/Time of Note Date/Time of Note DATE: 12/14/16 TIME: 13:17 Assessment/Plan Assessment/Plan Additional Assessment/Plan 1.NSTEMI-peak trop>60 Now dowtrending. s/p LHC with patent RCA stents and high grade disease of LAD/LCX with small caliber vessels - CABG eval in progress - not a surgical candidate now. 2.cardiomyopathy-LVEF 40-45 BY OSH echo - repeat EF 20-25% - med rx now - gentle diuresis to follow 3.Hypotension-currently off of pressors - con't to follow 4.resp failure s/p intubation - con't resp Rx - in pulmonary edema- gentle diuresis now 5.anemia - H/H stable - no bleed 6. AMS- con't supportive care Consultation Date/Type/Reason Admit Date/Time Dec 10, 2016 at 16:55 Initial Consult Date 12/12/16 Type of Consultation: Pulm/CCM Referring Provider: ROBEL PETTY MD 24 HR Interval Summary Free Text/Dictation repeat EF 20-25% - med rx now - gentle diuresis to follow ROS: No fever, no chills, no nausea, no vomiting, no diarrhea/constipation No recent weight changes No chest pain, no PND, no orthopnea No dizziness, blurred vision No thirst, no heat or cold intolerance Exam/Review of Systems Vital Signs Vitals Vital Signs Date Time Temp Pulse Resp B/P Pulse Ox O2 Delivery O2 Flow Rate FiO2 12/14/16 12:00 99.5 83 15 91/38 97 Mechanical Ventilator 12/14/16 11:48 40 Intake and Output 12/13/16 12/13/16 12/14/16 15:00 23:00 07:00 Intake Total 903.9 ml 309.8 ml 376.6 ml Output Total 1005 ml 615 ml 240 ml Balance -101.1 ml -305.2 ml 136.6 ml Exam General: WN/WD/NAD, AOx 0 HEENT: Unicetric/atraumatic/EOMI (does not follow commands) NECK: intubated Lymph: no lymphadenopathy HEART: regular with no S3, II/ systolic murmur at apex LUNGS: Coarse sounds ABD: soft, NT, ND, +BS : Intact Neuro: non focal SKIN: chronic changes EXT: trace edema Results Result Diagram: 12/14/16 0330 12/14/16 0330 Results 24 hrs Laboratory Tests Test 12/13/16 13:32 12/13/16 13:45 12/13/16 13:47 12/13/16 16:27 Bedside Glucose 195 184 187 Activated Partial Thromboplast Time 62.8 H Test 12/13/16 19:55 12/13/16 20:05 12/14/16 01:23 12/14/16 03:30 Activated Partial Thromboplast Time 83.6 *H 78.9 *H Bedside Glucose 207 155 White Blood Count 9.0 Red Blood Count 3.25 L Hemoglobin 9.8 L Hematocrit 30.8 L Mean Corpuscular Volume 94.8 Mean Corpuscular Hemoglobin 30.2 Mean Corpuscular Hemoglobin Concent 31.8 L Red Cell Distribution Width 13.7 Platelet Count 192 Mean Platelet Volume 11.0 H Neutrophils % 72.4 Lymphocytes % 8.3 L Monocytes % 9.2 Eosinophils % 8.9 H Basophils % 0.2 Nucleated Red Blood Cells % 0.0 Neutrophils # 6.5 Lymphocytes # 0.8 Monocytes # 0.8 Eosinophils # 0.8 H Basophils # 0.0 Nucleated Red Blood Cells # 0.0 Prothrombin Time 14.5 H Prothrombin Time Ratio 1.1 INR International Normalized Ratio 1.13 Sodium Level 145 H Potassium Level 3.6 Chloride Level 108 Carbon Dioxide Level 32 H Anion Gap 9 Blood Urea Nitrogen 19 Creatinine 0.53 Glucose Level 110 Calcium Level 8.5 Phosphorus Level 2.7 Magnesium Level 2.1 Total Bilirubin 0.5 Direct Bilirubin 0.00 Indirect Bilirubin 0.5 Aspartate Amino Transf (AST/SGOT) 29 Alanine Aminotransferase (ALT/SGPT) 36 Alkaline Phosphatase 104 Total Protein 5.1 L Albumin 2.9 L Globulin 2.20 Albumin/Globulin Ratio 1.31 Test 12/14/16 05:11 12/14/16 08:49 12/14/16 12:11 Bedside Glucose 128 110 94 Medications Medications Current Medications Famotidine (Pepcid) 20 mg Q12 PO Last administered on 12/14/16 08:45; Admin Dose 20 MG; Start 12/10/16 at 21:00 Aspirin (Halfprin) 81 mg DAILY PO Last administered on 12/14/16 08:45; Admin Dose 81 MG; Start 12/11/16 at 09:00 Atorvastatin Calcium (Lipitor) 20 mg HS PO Last administered on 12/13/16 21:23 ; Admin Dose 20 MG; Start 12/10/16 at 21:00 Duloxetine HCl (Cymbalta) 20 mg DAILY PO Last administered on 12/14/16 08:45; Admin Dose 20 MG; Start 12/11/16 at 09:00 Gabapentin (Neurontin) 300 mg TID PO Last administered on 12/14/16 12:06; Admin Dose 300 MG; Start 12/10/16 at 21:00 Insulin Glargine (Lantus) 30 unit DAILY@20 SC Last administered on 12/13/16 20: 09; Admin Dose 30 UNIT; Start 12/10/16 at 20:00 Metoprolol Tartrate (Lopressor) 12.5 mg BID PO Last administered on 12/11/16 21:12; Admin Dose 12.5 MG; Start 12/10/16 at 21:00 Ticagrelor (Brilinta) 90 mg BID PO Last administered on 12/14/16 08:52; Admin Dose 90 MG; Start 12/10/16 at 21:00 Levothyroxine Sodium (Synthroid) 112 mcg DAILY@06 PO Last administered on 06:30; Admin Dose 112 MCG; Start 12/11/16 at 06:00 Insulin Aspart (Novolog Insulin Pen) NOVOLOG *MODERATE* ALGORI... Q4 SC Last administered on 12/14/16 01:27; Admin Dose 2 UNIT; Start 12/10/16 at 21:00 Miscellaneous Information 1 ea NOTE XX ; Start 12/10/16 at 18:30 Glucose (Glutose) 15 gm Q15M PRN PO DECREASED GLUCOSE; Start 12/10/16 at 18:30 Glucose (Glutose) 22.5 gm Q15M PRN PO DECREASED GLUCOSE; Start 12/10/16 at 18: 30 Dextrose (D50w Syringe) 25 ml Q15M PRN IV DECREASED GLUCOSE Last administered on 12/13/16 13:10; Admin Dose 25 ML; Start 12/10/16 at 18:30 Dextrose (D50w Syringe) 50 ml Q15M PRN IV DECREASED GLUCOSE; Start 12/10/16 at 18:30 Glucagon (Glucagen) 1 mg Q15M PRN IM DECREASED GLUCOSE; Start 12/10/16 at 18:30 Glucose 15 gm 15 gm Q15M PRN BUCCAL DECREASED GLUCOSE; Start 12/10/16 at 18:30 Propofol (Diprivan) 100 ml @ 1.755 mls/ hr Q12H IV Last administered on 12:07; Admin Dose 10.53 MLS/HR; Start 12/10/16 at 19:00 Acetaminophen 650 mg 650 mg Q6H PRN NGT PAIN AND OR ELEVATED TEMP Last administered on 12/13/16 17:31; Admin Dose 650 MG; Start 12/10/16 at 21:00 Norepinephrine/ Dextrose (Levophed/D5W) 500 ml @ 1.87 mls/hr TITRATE IV Last administered on 12/11/16 00:20; Admin Dose 3.75 MLS/HR; Start 12/10/16 at 23:30 Acetaminophen (Tylenol Tab) 650 mg Q4H PRN PO NON-CARDIAC PAIN LEVEL (1-3); Start 12/11/16 at 13:00 Morphine Sulfate (morphine) 2 mg Q2H PRN IV FOR NON CARDIAC PAIN (4-10) Last administered on 12/14/16 08:45; Admin Dose 2 MG; Start 12/11/16 at 13:00 Al Hydrox/Mg Hydrox/Simethicone (Mag-Al Plus) 30 ml Q4H PRN PO GASTROINTESTINAL UPSET; Start 12/11/16 at 13:00 Ondansetron HCl 4 mg 4 mg Q4H PRN IV NAUSEA AND/OR VOMITING; Start 12/11/16 at 13:00 Fluconazole/ Sodium Chloride (Diflucan 100 Mg/ NS (Pmx)) 50 ml @ 50 mls/hr Q24H IVPB Last administered on 12/14/16 11:58; Admin Dose 50 MLS/HR; Start 12/13/16 at 12:00 Permethrin 1 applic 1 applic DAILY TOP Last administered on 12/14/16 13:15; Admin Dose 1 APPLIC; Start 12/14/16 at 13:00; Stop 12/16/16 at 09:01 Dexmedetomidine HCl/Sodium Chloride (Precedex/NS) 50 ml @ 0 mls/hr TITRATE IV ; Start 12/15/16 at 00:00; Stop 12/15/16 at 12:00 ARTIE MARADIAGA MD Dec 14, 2016 13:18
[2016-12-14] MEDS ORDERED: POTASSIUM CHLORIDE 250 ML IVPB ONE (13:30)
--- NOTE | 2016-12-14 13:30 | PN ---
Date/Time of Note Date/Time of Note DATE: 12/14/16 TIME: 13:24 Assessment/Plan VTE Prophylaxis VTE Prophylaxis Intervention: heparin Lines/Catheters IV Catheter Type (from Nrsg): PICC Line Central line still needed: Yes (IV access ) Urinary Cath still in place: Yes Reason Cath still needed: other (indicate) (intubated on ventilator ) Assessment/Plan Assessment/Plan # acute NSTEMI with troponin upto 60s at outside hospital - s/p C 12/11/16 which showed patent RCA stents and high grade disease of LAD/LCX with small caliber vessels on heparin gtt, Cardiology on board, management as per cardiology #DM2 with DKA- s/p Insulin drip at [facility] -cont subQ insulin, now Blood sugar controlled #diabetic neuropathy? cont home neurontin and cymbalta # acute resp failure due to pulm edema requiring intubation pulmonary following #CHF diuresis as per cardiology #hypothyroid cont home synthroid prophx: H2b while on vent, heparin drip pt started on lasix BID for agressive diuresis due to pulmonary congestion, yestedaypt had a BS in 60 around the time when she was started on tube feeding , BS still runs low side, her tube feeding was held yesteday due to high residual and reglan 10mg IV x 1 given - now no more residual, Restarted on Tube feeding and tolerating so far will avoid IVF for low BS due to pulmoary congestion and to avoid more pulmonary congestion pt has lice in hair, Nix solution for lice Subjective 24 Hr Interval Summary Free Text/Dictation pt remains intubated, started on agressive IV lasix diuresis due to pulmonary congestion,. pt is found to have Lice in hair Exam/Review of Systems Vital Signs Vitals Vital Signs Date Time Temp Pulse Resp B/P Pulse Ox O2 Delivery O2 Flow Rate FiO2 12/14/16 13:16 81 15 99 40 12/14/16 12:00 99.5 91/38 Mechanical Ventilator Intake and Output 12/13/16 12/13/16 12/14/16 15:00 23:00 07:00 Intake Total 903.9 ml 309.8 ml 376.6 ml Output Total 1005 ml 615 ml 240 ml Balance -101.1 ml -305.2 ml 136.6 ml Exam Constitutional: other (intubated ) Psych: no complaints Head: normocephalic Eyes: nl conjunctiva ENMT: nl external ears & nose Neck: supple Respiratory: other (bibasilar rales ) Cardiovascular: regular rate and rhythm Gastrointestinal: non-tender, soft Musculoskeletal: nl extremities to inspection Extremities: normal pulses Results Result Diagram: 12/14/16 0330 12/14/16 0330 Results 24 hrs Laboratory Tests Test 12/13/16 13:32 12/13/16 13:45 12/13/16 13:47 12/13/16 16:27 Bedside Glucose 195 184 187 Activated Partial Thromboplast Time 62.8 H Test 12/13/16 19:55 12/13/16 20:05 12/14/16 01:23 12/14/16 03:30 Activated Partial Thromboplast Time 83.6 *H 78.9 *H Bedside Glucose 207 155 White Blood Count 9.0 Red Blood Count 3.25 L Hemoglobin 9.8 L Hematocrit 30.8 L Mean Corpuscular Volume 94.8 Mean Corpuscular Hemoglobin 30.2 Mean Corpuscular Hemoglobin Concent 31.8 L Red Cell Distribution Width 13.7 Platelet Count 192 Mean Platelet Volume 11.0 H Neutrophils % 72.4 Lymphocytes % 8.3 L Monocytes % 9.2 Eosinophils % 8.9 H Basophils % 0.2 Nucleated Red Blood Cells % 0.0 Neutrophils # 6.5 Lymphocytes # 0.8 Monocytes # 0.8 Eosinophils # 0.8 H Basophils # 0.0 Nucleated Red Blood Cells # 0.0 Prothrombin Time 14.5 H Prothrombin Time Ratio 1.1 INR International Normalized Ratio 1.13 Sodium Level 145 H Potassium Level 3.6 Chloride Level 108 Carbon Dioxide Level 32 H Anion Gap 9 Blood Urea Nitrogen 19 Creatinine 0.53 Glucose Level 110 Calcium Level 8.5 Phosphorus Level 2.7 Magnesium Level 2.1 Total Bilirubin 0.5 Direct Bilirubin 0.00 Indirect Bilirubin 0.5 Aspartate Amino Transf (AST/SGOT) 29 Alanine Aminotransferase (ALT/SGPT) 36 Alkaline Phosphatase 104 Total Protein 5.1 L Albumin 2.9 L Globulin 2.20 Albumin/Globulin Ratio 1.31 Test 12/14/16 05:11 12/14/16 08:49 12/14/16 12:11 Bedside Glucose 128 110 94 Medications Medications Current Medications Famotidine (Pepcid) 20 mg Q12 PO Last administered on 12/14/16 08:45; Admin Dose 20 MG; Start 12/10/16 at 21:00 Aspirin (Halfprin) 81 mg DAILY PO Last administered on 12/14/16 08:45; Admin Dose 81 MG; Start 12/11/16 at 09:00 Atorvastatin Calcium (Lipitor) 20 mg HS PO Last administered on 12/13/16 21:23 ; Admin Dose 20 MG; Start 12/10/16 at 21:00 Duloxetine HCl (Cymbalta) 20 mg DAILY PO Last administered on 12/14/16 08:45; Admin Dose 20 MG; Start 12/11/16 at 09:00 Gabapentin (Neurontin) 300 mg TID PO Last administered on 12/14/16 12:06; Admin Dose 300 MG; Start 12/10/16 at 21:00 Insulin Glargine (Lantus) 30 unit DAILY@20 SC Last administered on 12/13/16 20: 09; Admin Dose 30 UNIT; Start 12/10/16 at 20:00 Metoprolol Tartrate (Lopressor) 12.5 mg BID PO Last administered on 12/11/16 21:12; Admin Dose 12.5 MG; Start 12/10/16 at 21:00 Ticagrelor (Brilinta) 90 mg BID PO Last administered on 12/14/16 08:52; Admin Dose 90 MG; Start 12/10/16 at 21:00 Levothyroxine Sodium (Synthroid) 112 mcg DAILY@06 PO Last administered on 06:30; Admin Dose 112 MCG; Start 12/11/16 at 06:00 Insulin Aspart (Novolog Insulin Pen) NOVOLOG *MODERATE* ALGORI... Q4 SC Last administered on 12/14/16 01:27; Admin Dose 2 UNIT; Start 12/10/16 at 21:00 Miscellaneous Information 1 ea NOTE XX ; Start 12/10/16 at 18:30 Glucose (Glutose) 15 gm Q15M PRN PO DECREASED GLUCOSE; Start 12/10/16 at 18:30 Glucose (Glutose) 22.5 gm Q15M PRN PO DECREASED GLUCOSE; Start 12/10/16 at 18: 30 Dextrose (D50w Syringe) 25 ml Q15M PRN IV DECREASED GLUCOSE Last administered on 12/13/16 13:10; Admin Dose 25 ML; Start 12/10/16 at 18:30 Dextrose (D50w Syringe) 50 ml Q15M PRN IV DECREASED GLUCOSE; Start 12/10/16 at 18:30 Glucagon (Glucagen) 1 mg Q15M PRN IM DECREASED GLUCOSE; Start 12/10/16 at 18:30 Glucose 15 gm 15 gm Q15M PRN BUCCAL DECREASED GLUCOSE; Start 12/10/16 at 18:30 Propofol (Diprivan) 100 ml @ 1.755 mls/ hr Q12H IV Last administered on 12:07; Admin Dose 10.53 MLS/HR; Start 12/10/16 at 19:00 Acetaminophen 650 mg 650 mg Q6H PRN NGT PAIN AND OR ELEVATED TEMP Last administered on 12/13/16 17:31; Admin Dose 650 MG; Start 12/10/16 at 21:00 Norepinephrine/ Dextrose (Levophed/D5W) 500 ml @ 1.87 mls/hr TITRATE IV Last administered on 12/11/16 00:20; Admin Dose 3.75 MLS/HR; Start 12/10/16 at 23:30 Acetaminophen (Tylenol Tab) 650 mg Q4H PRN PO NON-CARDIAC PAIN LEVEL (1-3); Start 12/11/16 at 13:00 Morphine Sulfate (morphine) 2 mg Q2H PRN IV FOR NON CARDIAC PAIN (4-10) Last administered on 12/14/16 08:45; Admin Dose 2 MG; Start 12/11/16 at 13:00 Al Hydrox/Mg Hydrox/Simethicone (Mag-Al Plus) 30 ml Q4H PRN PO GASTROINTESTINAL UPSET; Start 12/11/16 at 13:00 Ondansetron HCl 4 mg 4 mg Q4H PRN IV NAUSEA AND/OR VOMITING; Start 12/11/16 at 13:00 Fluconazole/ Sodium Chloride (Diflucan 100 Mg/ NS (Pmx)) 50 ml @ 50 mls/hr Q24H IVPB Last administered on 12/14/16 11:58; Admin Dose 50 MLS/HR; Start 12/13/16 at 12:00 Permethrin 1 applic 1 applic DAILY TOP Last administered on 12/14/16 13:15; Admin Dose 1 APPLIC; Start 12/14/16 at 13:00; Stop 12/16/16 at 09:01 Dexmedetomidine HCl 200 mcg/ Sodium Chloride 50 ml @ 0 mls/hr TITRATE IV ; Start 12/15/16 at 00:00; Stop 12/15/16 at 12:00 Potassium Chloride (KCl 40 MEQ/250 ML NS) 250 ml @ 62.5 mls/hr ONCE ONCE IVPB ; Start 12/14/16 at 13:30; Stop 12/14/16 at 17:29 WARREN WILLIAMSON MD Dec 14, 2016 13:29
[2016-12-14] MEDS: HEPARIN 25000 UNITS/250 ML 250 ML IV SCH (13:56)
--- NOTE | 2016-12-14 14:28 | PN ---
Date/Time of Note Date/Time of Note DATE: 12/14/16 TIME: 14:27 Assessment/Plan Lines/Catheters IV Catheter Type (from Nrsg): PICC Line M[place] in Place (from Nrsg): Yes Assessment/Plan Chief Complaint/Hosp Course CAD Patient is not a candidate to undergo coronary artery bypass grafting at this time Would continue medical management Diuretics Plan for possible coronary artery bypass grafting when medically more stable Problems: Subjective 24 Hr Interval Summary Constitutional: improved Pain Control: mild Exam/Review of Systems Vital Signs Vitals Vital Signs Date Time Temp Pulse Resp B/P Pulse Ox O2 Delivery O2 Flow Rate FiO2 12/14/16 14:00 82 16 112/49 96 Mechanical Ventilator 12/14/16 13:16 40 12/14/16 12:00 99.5 Intake and Output 12/13/16 12/13/16 12/14/16 15:00 23:00 07:00 Intake Total 903.9 ml 309.8 ml 376.6 ml Output Total 1005 ml 615 ml 240 ml Balance -101.1 ml -305.2 ml 136.6 ml Exam Eyes: EOMI, nl conjunctiva, nl lids, nl sclera ENMT: mucosa pink and moist, nl external ears & nose, nl lips & teeth, nl nasal mucosa & septum Neck: non-tender, supple Respiratory: clear to auscultation, normal air movement Cardiovascular: nl pulses, regular rate and rhythm Gastrointestinal: nl liver, spleen, non-tender, soft Results Result Diagram: 12/14/16 0330 12/14/16 033 CHELA ALVARENGA MD Dec 14, 2016 14:28
[2016-12-14] MEDS: ATORVASTATIN 20 MG TAB PO SCH (20:55)
[2016-12-14] MEDS: INSULIN GLARGINE [LANtus] 3 ML PEN SC SCH (21:02)
[2016-12-15] VITALS (67 sets, daily range): BP systolic 85–108; BP diastolic 34–50; PULSE 70–97; RESP 10–30
[2016-12-15] MEDS: DEXMEDETOMIDINE HCL 200 MCG in SOD CHLORIDE 0.9% 48 ML IV SCH ×2 (00:35→05:55)
[2016-12-15] MEDS: INSULIN ASPART [NOVOLOG] 3 ML PEN SC SCH ×6 (00:38→20:32)
[2016-12-15 04:10] LABS: BASOPHILS % 0.4 % (0.0-2.0); EOSINOPHILS # 0.8 10^3/ul (0.0-0.5); EOSINOPHILS % 9.6 % (0.0-7.0); HEMATOCRIT 31.8 % (37.0-47.0); HEMOGLOBIN 10.2 g/dl (12.0-16.0); INR 1.04; MEAN CORPUSCULAR HEMOGLOBIN 30.4 pg (29.0-33.0); MEAN CORPUSCULAR HGB CONC 32.1 g/dl (32.0-37.0); MEAN CORPUSCULAR VOLUME 94.6 fl (82.0-101.0); MEAN PLATELET VOLUME 11.3 fl (7.4-10.4); MONOCYTE # 0.9 10^3/ul (0.3-0.9); MONOCYTES % 11.2 % (0.0-11.0); NEUTROPHIL # 5.5 10^3/ul (1.6-7.5); NEUTROPHILS % 65.8 % (39.0-77.0); PLATELET COUNT 248 10^3/UL (140-415); PROTIME 13.6 Sec (12.2-14.2); PT RATIO 1.1; RED BLOOD COUNT 3.36 10^6/ul (4.20-5.40); RED CELL DISTRIBUTION WIDTH 13.3 % (11.5-14.5); WHITE BLOOD COUNT 8.4 10^3/ul (4.8-10.8)
[2016-12-15 04:16] LABS: MAGNESIUM 1.7 mg/dl (1.7-2.5); PHOSPHORUS 3.7 mg/dl (2.5-4.9)
[2016-12-15 04:17] LABS: ALBUMIN/GLOBULIN RATIO 1.36; BILIRUBIN,INDIRECT 0.4 mg/dl (0-1.1); BILIRUBIN,TOTAL 0.4 mg/dl (0.2-1.3); CALCIUM 8.6 mg/dl (8.4-10.2); CREATININE 0.51 mg/dl (0.44-1.00); POTASSIUM 3.5 mmol/L (3.5-5.1); TOTAL PROTEIN 5.2 g/dl (6.1-8.1)
[2016-12-15 04:20] LABS: ADD SCAN DIFF NO
[2016-12-15] MEDS: PROPOFOL 100 ML IV SCH ×3 (05:45→19:07)
[2016-12-15] MEDS: LEVOTHYROXINE 112 MCG TAB PO SCH (05:54)
[2016-12-15] MEDS: FUROSEMIDE 20 MG INJ IV SCH ×2 (05:54→17:15)
[2016-12-15] MEDS: HEPARIN 25000 UNITS/250 ML 250 ML IV SCH (06:16)
[2016-12-15] MEDS: TICAGRELOR 90 MG TABLET PO SCH ×2 (08:33→20:33)
[2016-12-15] MEDS: ASPIRIN (EC) 81 MG TAB PO SCH (08:33)
[2016-12-15] MEDS: GABAPENTIN 300 MG CAP PO SCH ×3 (08:33→20:24)
[2016-12-15] MEDS: FAMOTIDINE 20 MG TAB PO SCH ×2 (08:33→20:25)
[2016-12-15] MEDS: DULOXETINE 20 MG CAP DR PO SCH (08:33)
[2016-12-15] MEDS: METOPROLOL 25 MG TAB PO SCH ×2 (08:34→20:34)
--- NOTE | 2016-12-15 08:53 | RADRPT ---
PROCEDURE: XR Chest 1 View. CLINICAL INDICATION: Shortness of breath TECHNIQUE: AP view of the chest was obtained. COMPARISON: Yesterday FINDINGS: The cardiomediastinal silhouette is within normal limits. Endotracheal and nasogastric tubes are sta ble and appear in grossly appropriate location. Central pulmonary vascular congestion and interstiti al prominence is unchanged. Patchy infiltrates in the left upper lobe are stable. Patchy left lowe r lobe infiltrates have developed and/or combined with small pleural effusion. Atelectasis versus m inimal infiltrates in the right lower lobe are seen The osseous structures are unchanged. IMPRESSION: Stable central pulmonary vascular congestion and interstitial prominence in both lungs. Stable patchy infiltrates in the periphery of the left upper lobe. Interval development of patchy left lower lobe infiltrates, combined with small pleural effusion. Atelectasis versus minimal infiltrates in the right lower lobe. RPTAT: AA .Vineet Pérez MD, Date Time Electronically viewed and signed by .Vineet Pérez MD, on 12/15/2016 08:53 .P/
--- NOTE | 2016-12-15 10:15 | CONS ---
Date/Time of Note Date/Time of Note DATE: 12/15/16 TIME: 10:11 Consult Date/Type/Reason Admit Date/Time Dec 10, 2016 at 16:55 Initial Consult Date 12/12/16 Type of Consultation: Pulm/CCM Ordering Provider: ROBEL PETTY MD Subjective CPAP trial this morning with increased work of breathing. Placed back on AC mechanical ventilation Objective Vital Signs Date Time Temp Pulse Resp B/P Pulse Ox O2 Delivery O2 Flow Rate FiO2 12/15/16 09:47 79 21 98 40 12/15/16 09:30 101/39 12/15/16 09:00 Mechanical Ventilator 12/15/16 08:00 99.8 Intake and Output 12/14/16 12/14/16 12/15/16 15:00 23:00 07:00 Intake Total 429.60 ml 669 ml 466.42 ml Output Total 1315 ml 1210 ml 300 ml Balance -885.40 ml -541 ml 166.42 ml Exam PHYSICAL EXAMINATION GENERAL: Elderly-appearing lady intubated on mechanical ventilation VITAL SIGNS: see below. HEENT: Pupils equal, round, and reactive to light. CARDIAC: S1, S2, 1/6 systolic ejection murmur CHEST: Diminished air entry bilaterally. ABDOMEN: Mildly distended. Bowel sounds present no guarding or rebound EXTREMITIES: No cyanosis, clubbing edema +1 NEUROLOGIC: Generalized weakness Results/Medications Result Diagram: 12/15/16 0310 12/15/16 0310 Results 24 hrs Laboratory Tests Test 12/14/16 11:50 12/14/16 12:11 12/14/16 16:08 12/14/16 20:09 Activated Partial Thromboplast Time 77.0 *H 53.0 H Bedside Glucose 94 128 Test 12/14/16 20:54 12/15/16 00:29 12/15/16 03:10 12/15/16 05:12 Bedside Glucose 199 148 138 White Blood Count 8.4 Red Blood Count 3.36 L Hemoglobin 10.2 L Hematocrit 31.8 L Mean Corpuscular Volume 94.6 Mean Corpuscular Hemoglobin 30.4 Mean Corpuscular Hemoglobin Concent 32.1 Red Cell Distribution Width 13.3 Platelet Count 248 # Mean Platelet Volume 11.3 H Neutrophils % 65.8 Lymphocytes % 12.0 L Monocytes % 11.2 H Eosinophils % 9.6 H Basophils % 0.4 Nucleated Red Blood Cells % 0.0 Neutrophils # 5.5 Lymphocytes # 1.0 Monocytes # 0.9 Eosinophils # 0.8 H Basophils # 0.0 Nucleated Red Blood Cells # 0.0 Prothrombin Time 13.6 Prothrombin Time Ratio 1.1 INR International Normalized Ratio 1.04 Activated Partial Thromboplast Time 70.0 H Sodium Level 141 Potassium Level 3.5 Chloride Level 100 Carbon Dioxide Level 36 H Anion Gap 9 Blood Urea Nitrogen 17 Creatinine 0.51 Glucose Level 128 Calcium Level 8.6 Phosphorus Level 3.7 Magnesium Level 1.7 Total Bilirubin 0.4 Direct Bilirubin 0.00 Indirect Bilirubin 0.4 Aspartate Amino Transf (AST/SGOT) 25 Alanine Aminotransferase (ALT/SGPT) 31 Alkaline Phosphatase 112 Total Protein 5.2 L Albumin 3.0 L Globulin 2.20 Albumin/Globulin Ratio 1.36 Test 12/15/16 08:31 Bedside Glucose 101 Medications Current Medications Famotidine (Pepcid) 20 mg Q12 PO Last administered on 12/15/16 08:33; Admin Dose 20 MG; Start 12/10/16 at 21:00 Aspirin (Halfprin) 81 mg DAILY PO Last administered on 12/15/16 08:33; Admin Dose 81 MG; Start 12/11/16 at 09:00 Atorvastatin Calcium (Lipitor) 20 mg HS PO Last administered on 12/14/16 20:55 ; Admin Dose 20 MG; Start 12/10/16 at 21:00 Duloxetine HCl (Cymbalta) 20 mg DAILY PO Last administered on 12/15/16 08:33; Admin Dose 20 MG; Start 12/11/16 at 09:00 Gabapentin (Neurontin) 300 mg TID PO Last administered on 12/15/16 08:33; Admin Dose 300 MG; Start 12/10/16 at 21:00 Insulin Glargine (Lantus) 30 unit DAILY@20 SC Last administered on 12/14/16 21: 02; Admin Dose 30 UNIT; Start 12/10/16 at 20:00 Metoprolol Tartrate (Lopressor) 12.5 mg BID PO Last administered on 12/15/16 08 :34; Admin Dose 12.5 MG; Start 12/10/16 at 21:00 Ticagrelor (Brilinta) 90 mg BID PO Last administered on 12/15/16 08:33; Admin Dose 90 MG; Start 12/10/16 at 21:00 Levothyroxine Sodium (Synthroid) 112 mcg DAILY@06 PO Last administered on 05:54; Admin Dose 112 MCG; Start 12/11/16 at 06:00 Insulin Aspart (Novolog Insulin Pen) NOVOLOG *MODERATE* ALGORI... Q4 SC Last administered on 12/15/16 00:38; Admin Dose 2 UNIT; Start 12/10/16 at 21:00 Miscellaneous Information 1 ea NOTE XX ; Start 12/10/16 at 18:30 Glucose (Glutose) 15 gm Q15M PRN PO DECREASED GLUCOSE; Start 12/10/16 at 18:30 Glucose (Glutose) 22.5 gm Q15M PRN PO DECREASED GLUCOSE; Start 12/10/16 at 18: 30 Dextrose (D50w Syringe) 25 ml Q15M PRN IV DECREASED GLUCOSE Last administered on 12/13/16 13:10; Admin Dose 25 ML; Start 12/10/16 at 18:30 Dextrose (D50w Syringe) 50 ml Q15M PRN IV DECREASED GLUCOSE; Start 12/10/16 at 18:30 Glucagon (Glucagen) 1 mg Q15M PRN IM DECREASED GLUCOSE; Start 12/10/16 at 18:30 Glucose 15 gm 15 gm Q15M PRN BUCCAL DECREASED GLUCOSE; Start 12/10/16 at 18:30 Propofol (Diprivan) 100 ml @ 1.755 mls/ hr Q12H IV Last administered on 18:40; Admin Dose 10.53 MLS/HR; Start 12/10/16 at 19:00 Acetaminophen 650 mg 650 mg Q6H PRN NGT PAIN AND OR ELEVATED TEMP Last administered on 12/13/16 17:31; Admin Dose 650 MG; Start 12/10/16 at 21:00 Norepinephrine/ Dextrose (Levophed/D5W) 500 ml @ 1.87 mls/hr TITRATE IV Last administered on 12/11/16 00:20; Admin Dose 3.75 MLS/HR; Start 12/10/16 at 23:30 Acetaminophen (Tylenol Tab) 650 mg Q4H PRN PO NON-CARDIAC PAIN LEVEL (1-3); Start 12/11/16 at 13:00 Morphine Sulfate (morphine) 2 mg Q2H PRN IV FOR NON CARDIAC PAIN (4-10) Last administered on 12/14/16 08:45; Admin Dose 2 MG; Start 12/11/16 at 13:00 Al Hydrox/Mg Hydrox/Simethicone (Mag-Al Plus) 30 ml Q4H PRN PO GASTROINTESTINAL UPSET; Start 12/11/16 at 13:00 Ondansetron HCl 4 mg 4 mg Q4H PRN IV NAUSEA AND/OR VOMITING; Start 12/11/16 at 13:00 Fluconazole/ Sodium Chloride 50 ml @ 50 mls/hr Q24H IVPB Last administered on 11:58; Admin Dose 50 MLS/HR; Start 12/13/16 at 12:00 Dexmedetomidine HCl/Sodium Chloride (Precedex/NS) 50 ml @ 0 mls/hr TITRATE IV Last administered on 12/15/16 05:55; Admin Dose 7.31 MLS/HR; Start 12/15/16 at 00 :00; Stop 12/15/16 at 12:00 Assessment/Plan Chief Complaint/Hosp Course IMP: 1. s/p NSTEMI 2. Resp Failure--due to pulm edema 3. AMS-resolved likely toxic metabolic encephalopathy 4. Anemia RECS: 1. More aggressive diuresis 2. CPAP trial tomorrow. 3. Precedex gtt to facilitate weaning given concern for agitation off sedation 4. Am labs/CXR 5. Add morphine for pain control repeat CPAP trial 35 min cc time Problems: STEFANI G[facility]ZALES MD, [facility] Dec 15, 2016 10:15
[2016-12-15] MEDS: morphine 2 MG INJ IV PRN (10:33)
--- NOTE | 2016-12-15 10:42 | CONS ---
Date/Time of Note Date/Time of Note DATE: 12/15/16 TIME: 10:37 Consultation Date/Type/Reason Admit Date/Time Dec 10, 2016 at 16:55 Initial Consult Date 12/12/16 Type of Consultation: Pulm/CCM Referring Provider: ROBEL PETTY MD 24 HR Interval Summary Free Text/Dictation No acute events - BP in good range - con't gentle diuresis. ROS: No fever, no chills, no nausea, no vomiting, no diarrhea/constipation No recent weight changes No chest pain, no PND, no orthopnea No dizziness, blurred vision No thirst, no heat or cold intolerance (per nurse) Exam/Review of Systems Vital Signs Vitals Vital Signs Date Time Temp Pulse Resp B/P Pulse Ox O2 Delivery O2 Flow Rate FiO2 12/15/16 09:47 79 21 98 40 12/15/16 09:30 101/39 12/15/16 09:00 Mechanical Ventilator 12/15/16 08:00 99.8 Intake and Output 12/14/16 12/14/16 12/15/16 15:00 23:00 07:00 Intake Total 429.60 ml 669 ml 466.42 ml Output Total 1315 ml 1210 ml 300 ml Balance -885.40 ml -541 ml 166.42 ml Exam General: WN/WD/NAD, AO x 0 HEENT: Unicetric/atraumatic/EOMI (does not follow commands) NECK: JVD elevated, no thyromegaly - intubated Lymph: no lymphadenopathy HEART: regular with no S3, II/ systolic murmur at apex LUNGS: Coarse sounds ABD: soft, NT, ND, +BS : Intact Neuro: non focal SKIN: chronic changes EXT: trace edema, stable Results Result Diagram: 12/15/1630912/15/16 0310 Results 24 hrs Laboratory Tests Test 12/14/16 11:50 12/14/16 12:11 12/14/16 16:08 12/14/16 20:09 Activated Partial Thromboplast Time 77.0 *H 53.0 H Bedside Glucose 94 128 Test 12/14/16 20:54 12/15/16 00:29 12/15/16 03:10 12/15/16 05:12 Bedside Glucose 199 148 138 White Blood Count 8.4 Red Blood Count 3.36 L Hemoglobin 10.2 L Hematocrit 31.8 L Mean Corpuscular Volume 94.6 Mean Corpuscular Hemoglobin 30.4 Mean Corpuscular Hemoglobin Concent 32.1 Red Cell Distribution Width 13.3 Platelet Count 248 # Mean Platelet Volume 11.3 H Neutrophils % 65.8 Lymphocytes % 12.0 L Monocytes % 11.2 H Eosinophils % 9.6 H Basophils % 0.4 Nucleated Red Blood Cells % 0.0 Neutrophils # 5.5 Lymphocytes # 1.0 Monocytes # 0.9 Eosinophils # 0.8 H Basophils # 0.0 Nucleated Red Blood Cells # 0.0 Prothrombin Time 13.6 Prothrombin Time Ratio 1.1 INR International Normalized Ratio 1.04 Activated Partial Thromboplast Time 70.0 H Sodium Level 141 Potassium Level 3.5 Chloride Level 100 Carbon Dioxide Level 36 H Anion Gap 9 Blood Urea Nitrogen 17 Creatinine 0.51 Glucose Level 128 Calcium Level 8.6 Phosphorus Level 3.7 Magnesium Level 1.7 Total Bilirubin 0.4 Direct Bilirubin 0.00 Indirect Bilirubin 0.4 Aspartate Amino Transf (AST/SGOT) 25 Alanine Aminotransferase (ALT/SGPT) 31 Alkaline Phosphatase 112 Total Protein 5.2 L Albumin 3.0 L Globulin 2.20 Albumin/Globulin Ratio 1.36 Test 12/15/16 08:31 Bedside Glucose 101 Medications Medications Current Medications Famotidine (Pepcid) 20 mg Q12 PO Last administered on 12/15/16 08:33; Admin Dose 20 MG; Start 12/10/16 at 21:00 Aspirin (Halfprin) 81 mg DAILY PO Last administered on 12/15/16 08:33; Admin Dose 81 MG; Start 12/11/16 at 09:00 Atorvastatin Calcium (Lipitor) 20 mg HS PO Last administered on 12/14/16 20:55 ; Admin Dose 20 MG; Start 12/10/16 at 21:00 Duloxetine HCl (Cymbalta) 20 mg DAILY PO Last administered on 12/15/16 08:33; Admin Dose 20 MG; Start 12/11/16 at 09:00 Gabapentin (Neurontin) 300 mg TID PO Last administered on 12/15/16 08:33; Admin Dose 300 MG; Start 12/10/16 at 21:00 Insulin Glargine (Lantus) 30 unit DAILY@20 SC Last administered on 12/14/16 21: 02; Admin Dose 30 UNIT; Start 12/10/16 at 20:00 Metoprolol Tartrate (Lopressor) 12.5 mg BID PO Last administered on 12/15/16 08 :34; Admin Dose 12.5 MG; Start 12/10/16 at 21:00 Ticagrelor (Brilinta) 90 mg BID PO Last administered on 12/15/16 08:33; Admin Dose 90 MG; Start 12/10/16 at 21:00 Levothyroxine Sodium (Synthroid) 112 mcg DAILY@06 PO Last administered on 05:54; Admin Dose 112 MCG; Start 12/11/16 at 06:00 Insulin Aspart (Novolog Insulin Pen) NOVOLOG *MODERATE* ALGORI... Q4 SC Last administered on 12/15/16 00:38; Admin Dose 2 UNIT; Start 12/10/16 at 21:00 Miscellaneous Information 1 ea NOTE XX ; Start 12/10/16 at 18:30 Glucose (Glutose) 15 gm Q15M PRN PO DECREASED GLUCOSE; Start 12/10/16 at 18:30 Glucose (Glutose) 22.5 gm Q15M PRN PO DECREASED GLUCOSE; Start 12/10/16 at 18: 30 Dextrose (D50w Syringe) 25 ml Q15M PRN IV DECREASED GLUCOSE Last administered on 12/13/16 13:10; Admin Dose 25 ML; Start 12/10/16 at 18:30 Dextrose (D50w Syringe) 50 ml Q15M PRN IV DECREASED GLUCOSE; Start 12/10/16 at 18:30 Glucagon (Glucagen) 1 mg Q15M PRN IM DECREASED GLUCOSE; Start 12/10/16 at 18:30 Glucose 15 gm 15 gm Q15M PRN BUCCAL DECREASED GLUCOSE; Start 12/10/16 at 18:30 Propofol (Diprivan) 100 ml @ 1.755 mls/ hr Q12H IV Last administered on 18:40; Admin Dose 10.53 MLS/HR; Start 12/10/16 at 19:00 Acetaminophen 650 mg 650 mg Q6H PRN NGT PAIN AND OR ELEVATED TEMP Last administered on 12/13/16 17:31; Admin Dose 650 MG; Start 12/10/16 at 21:00 Norepinephrine/ Dextrose (Levophed/D5W) 500 ml @ 1.87 mls/hr TITRATE IV Last administered on 12/11/16 00:20; Admin Dose 3.75 MLS/HR; Start 12/10/16 at 23:30 Acetaminophen (Tylenol Tab) 650 mg Q4H PRN PO NON-CARDIAC PAIN LEVEL (1-3); Start 12/11/16 at 13:00 Morphine Sulfate (morphine) 2 mg Q2H PRN IV FOR NON CARDIAC PAIN (4-10) Last administered on 12/15/16 10:33; Admin Dose 2 MG; Start 12/11/16 at 13:00 Al Hydrox/Mg Hydrox/Simethicone (Mag-Al Plus) 30 ml Q4H PRN PO GASTROINTESTINAL UPSET; Start 12/11/16 at 13:00 Ondansetron HCl 4 mg 4 mg Q4H PRN IV NAUSEA AND/OR VOMITING; Start 12/11/16 at 13:00 Fluconazole/ Sodium Chloride 50 ml @ 50 mls/hr Q24H IVPB Last administered on 11:58; Admin Dose 50 MLS/HR; Start 12/13/16 at 12:00 Dexmedetomidine HCl/Sodium Chloride (Precedex/NS) 50 ml @ 0 mls/hr TITRATE IV Last administered on 12/15/16 05:55; Admin Dose 7.31 MLS/HR; Start 12/15/16 at 00 :00; Stop 12/15/16 at 12:00 ARITE MARADIAGA MD Dec 15, 2016 10:42
--- NOTE | 2016-12-15 12:27 | PN ---
Date/Time of Note Date/Time of Note DATE: 12/15/16 TIME: 12:22 Assessment/Plan VTE Prophylaxis VTE Prophylaxis Intervention: other Lines/Catheters IV Catheter Type (from Nrs): Central line still needed: No Urinary Cath still in place: Yes Reason Cath still needed: urinary retention Assessment/Plan Chief Complaint/Hosp Course CAD Patient is not a candidate to undergo coronary artery bypass grafting at this time Still intubated FiO2 of 40% Would continue medical management Diuretics Plan for possible coronary artery bypass grafting when medically more stable Problems: Subjective 24 Hr Interval Summary Gastrointestinal: no complaints Genitourinary: no complaints Musculoskeletal: no complaints Skin: no complaints Neurologic: no complaints Exam/Review of Systems Vital Signs Vitals Vital Signs Date Time Temp Pulse Resp B/P Pulse Ox O2 Delivery O2 Flow Rate FiO2 12/15/16 11:14 76 15 99 40 12/15/16 09:30 101/39 12/15/16 09:00 Mechanical Ventilator 12/15/16 08:00 99.8 Intake and Output 12/14/16 12/14/16 12/15/16 15:00 23:00 07:00 Intake Total 429.60 ml 669 ml 466.42 ml Output Total 1315 ml 1210 ml 300 ml Balance -885.40 ml -541 ml 166.42 ml Exam Neck: non-tender, supple Respiratory: clear to auscultation, normal air movement Cardiovascular: nl pulses, regular rate and rhythm Results Result Diagram: 12/15/16 0310 12/15/16 0310 Results 24 hrs Laboratory Tests Test 12/14/16 16:08 12/14/16 20:09 12/14/16 20:54 12/15/16 00:29 Bedside Glucose 128 199 148 Activated Partial Thromboplast Time 53.0 H Test 12/15/16 03:10 12/15/16 05:12 12/15/16 08:31 12/15/16 11:05 White Blood Count 8.4 Red Blood Count 3.36 L Hemoglobin 10.2 L Hematocrit 31.8 L Mean Corpuscular Volume 94.6 Mean Corpuscular Hemoglobin 30.4 Mean Corpuscular Hemoglobin Concent 32.1 Red Cell Distribution Width 13.3 Platelet Count 248 # Mean Platelet Volume 11.3 H Neutrophils % 65.8 Lymphocytes % 12.0 L Monocytes % 11.2 H Eosinophils % 9.6 H Basophils % 0.4 Nucleated Red Blood Cells % 0.0 Neutrophils # 5.5 Lymphocytes # 1.0 Monocytes # 0.9 Eosinophils # 0.8 H Basophils # 0.0 Nucleated Red Blood Cells # 0.0 Prothrombin Time 13.6 Prothrombin Time Ratio 1.1 INR International Normalized Ratio 1.04 Activated Partial Thromboplast Time 70.0 H 69.1 H Sodium Level 141 Potassium Level 3.5 Chloride Level 100 Carbon Dioxide Level 36 H Anion Gap 9 Blood Urea Nitrogen 17 Creatinine 0.51 Glucose Level 128 Calcium Level 8.6 Phosphorus Level 3.7 Magnesium Level 1.7 Total Bilirubin 0.4 Direct Bilirubin 0.00 Indirect Bilirubin 0.4 Aspartate Amino Transf (AST/SGOT) 25 Alanine Aminotransferase (ALT/SGPT) 31 Alkaline Phosphatase 112 Total Protein 5.2 L Albumin 3.0 L Globulin 2.20 Albumin/Globulin Ratio 1.36 Bedside Glucose 138 101 Medications Medications Current Medications Famotidine (Pepcid) 20 mg Q12 PO Last administered on 12/15/16 08:33; Admin Dose 20 MG; Start 12/10/16 at 21:00 Aspirin (Halfprin) 81 mg DAILY PO Last administered on 12/15/16 08:33; Admin Dose 81 MG; Start 12/11/16 at 09:00 Atorvastatin Calcium (Lipitor) 20 mg HS PO Last administered on 12/14/16 20:55 ; Admin Dose 20 MG; Start 12/10/16 at 21:00 Duloxetine HCl (Cymbalta) 20 mg DAILY PO Last administered on 12/15/16 08:33; Admin Dose 20 MG; Start 12/11/16 at 09:00 Gabapentin (Neurontin) 300 mg TID PO Last administered on 12/15/16 08:33; Admin Dose 300 MG; Start 12/10/16 at 21:00 Insulin Glargine (Lantus) 30 unit DAILY@20 SC Last administered on 12/14/16 21: 02; Admin Dose 30 UNIT; Start 12/10/16 at 20:00 Metoprolol Tartrate (Lopressor) 12.5 mg BID PO Last administered on 12/15/16 08 :34; Admin Dose 12.5 MG; Start 12/10/16 at 21:00 Ticagrelor (Brilinta) 90 mg BID PO Last administered on 12/15/16 08:33; Admin Dose 90 MG; Start 12/10/16 at 21:00 Levothyroxine Sodium (Synthroid) 112 mcg DAILY@06 PO Last administered on 05:54; Admin Dose 112 MCG; Start 12/11/16 at 06:00 Insulin Aspart (Novolog Insulin Pen) NOVOLOG *MODERATE* ALGORI... Q4 SC Last administered on 12/15/16 00:38; Admin Dose 2 UNIT; Start 12/10/16 at 21:00 Miscellaneous Information 1 ea NOTE XX ; Start 12/10/16 at 18:30 Glucose (Glutose) 15 gm Q15M PRN PO DECREASED GLUCOSE; Start 12/10/16 at 18:30 Glucose (Glutose) 22.5 gm Q15M PRN PO DECREASED GLUCOSE; Start 12/10/16 at 18: 30 Dextrose (D50w Syringe) 25 ml Q15M PRN IV DECREASED GLUCOSE Last administered on 12/13/16 13:10; Admin Dose 25 ML; Start 12/10/16 at 18:30 Dextrose (D50w Syringe) 50 ml Q15M PRN IV DECREASED GLUCOSE; Start 12/10/16 at 18:30 Glucagon (Glucagen) 1 mg Q15M PRN IM DECREASED GLUCOSE; Start 12/10/16 at 18:30 Glucose 15 gm 15 gm Q15M PRN BUCCAL DECREASED GLUCOSE; Start 12/10/16 at 18:30 Propofol (Diprivan) 100 ml @ 1.755 mls/ hr Q12H IV Last administered on 18:40; Admin Dose 10.53 MLS/HR; Start 12/10/16 at 19:00 Acetaminophen 650 mg 650 mg Q6H PRN NGT PAIN AND OR ELEVATED TEMP Last administered on 12/13/16 17:31; Admin Dose 650 MG; Start 12/10/16 at 21:00 Norepinephrine/ Dextrose (Levophed/D5W) 500 ml @ 1.87 mls/hr TITRATE IV Last administered on 12/11/16 00:20; Admin Dose 3.75 MLS/HR; Start 12/10/16 at 23:30 Acetaminophen (Tylenol Tab) 650 mg Q4H PRN PO NON-CARDIAC PAIN LEVEL (1-3); Start 12/11/16 at 13:00 Morphine Sulfate (morphine) 2 mg Q2H PRN IV FOR NON CARDIAC PAIN (4-10) Last administered on 12/15/16 10:33; Admin Dose 2 MG; Start 12/11/16 at 13:00 Al Hydrox/Mg Hydrox/Simethicone (Mag-Al Plus) 30 ml Q4H PRN PO GASTROINTESTINAL UPSET; Start 12/11/16 at 13:00 Ondansetron HCl 4 mg 4 mg Q4H PRN IV NAUSEA AND/OR VOMITING; Start 12/11/16 at 13:00 Fluconazole/ Sodium Chloride (Diflucan 100 Mg/ NS (Pmx)) 50 ml @ 50 mls/hr Q24H IVPB Last administered on 12/14/16 11:58; Admin Dose 50 MLS/HR; Start 12/13/16 at 12:00 CHELA ALVARENGA MD Dec 15, 2016 12:27
[2016-12-15] MEDS: FLUCONAZOLE 100 MG/NS (PMX) 50 ML IVPB SCH (12:46)
--- NOTE | 2016-12-15 19:28 | PN ---
Date/Time of Note Date/Time of Note DATE: 12/15/16 TIME: 19:25 Assessment/Plan VTE Prophylaxis VTE Prophylaxis Intervention: heparin Lines/Catheters IV C[facility] Type (from [facility]): Urinary Cath still in place: Yes Reason Cath still needed: skin wounds contaminated by urine Assessment/Plan Chief Complaint/Hosp Course Subjective: Failed extubation/CPAP trial today. High residuals with tube feeds yesterday. Objective: Vital signs noted Physical exam Orally intubated. No pallor. Possible JVD Reg, no m/r/g Mechanical bs bilaterally. Bs dimin, nt nd, no RR G No edema Assessment and plan 1. Acute respiratory failure, stable cont ventilatory support. 2. NSTEMI. Sp cath. CABG if stable. 3. Ischemic cmy EF of 25. Cont medical management. 4. DKA resolved. 4. Chr type 2 DM; a1c= 9.1 6. Chr hypothyroidism 7. Tobacco abuse; offer patch 7. Deconditioning 9. Nephrolithiasis; cholelithiasis 10. Lice 11. Fungal cystitis Problems: Exam/Review of Systems Vital Signs Vitals Vital Signs Date Time Temp Pulse Resp B/P Pulse Ox O2 Delivery O2 Flow Rate FiO2 12/15/16 18:00 76 21 105/47 99 Mechanical Ventilator 12/15/16 17:18 40 12/15/16 16:00 98.4 Intake and Output 12/14/16 12/14/16 12/15/16 15:00 23:00 07:00 Intake Total 429.60 ml 669 ml 466.42 ml Output Total 1315 ml 1210 ml 300 ml Balance -885.40 ml -541 ml 166.42 ml Results Result Diagram: 12/15/16 0310 12/15/16 0310 Results 24 hrs Laboratory Tests Test 12/14/16 20:09 12/14/16 20:54 12/15/16 00:29 12/15/16 03:10 Activated Partial Thromboplast Time 53.0 H 70.0 H Bedside Glucose 199 148 White Blood Count 8.4 Red Blood Count 3.36 L Hemoglobin 10.2 L Hematocrit 31.8 L Mean Corpuscular Volume 94.6 Mean Corpuscular Hemoglobin 30.4 Mean Corpuscular Hemoglobin Concent 32.1 Red Cell Distribution Width 13.3 Platelet Count 248 # Mean Platelet Volume 11.3 H Neutrophils % 65.8 Lymphocytes % 12.0 L Monocytes % 11.2 H Eosinophils % 9.6 H Basophils % 0.4 Nucleated Red Blood Cells % 0.0 Neutrophils # 5.5 Lymphocytes # 1.0 Monocytes # 0.9 Eosinophils # 0.8 H Basophils # 0.0 Nucleated Red Blood Cells # 0.0 Prothrombin Time 13.6 Prothrombin Time Ratio 1.1 INR International Normalized Ratio 1.04 Sodium Level 141 Potassium Level 3.5 Chloride Level 100 Carbon Dioxide Level 36 H Anion Gap 9 Blood Urea Nitrogen 17 Creatinine 0.51 Glucose Level 128 Calcium Level 8.6 Phosphorus Level 3.7 Magnesium Level 1.7 Total Bilirubin 0.4 Direct Bilirubin 0.00 Indirect Bilirubin 0.4 Aspartate Amino Transf (AST/SGOT) 25 Alanine Aminotransferase (ALT/SGPT) 31 Alkaline Phosphatase 112 Total Protein 5.2 L Albumin 3.0 L Globulin 2.20 Albumin/Globulin Ratio 1.36 Test 12/15/16 05:12 12/15/16 08:31 12/15/16 11:05 12/15/16 12:45 Bedside Glucose 138 101 122 Activated Partial Thromboplast Time 69.1 H Test 12/15/16 17:13 Bedside Glucose 132 Medications Medications Current Medications Famotidine (Pepcid) 20 mg Q12 PO Last administered on 12/15/16 08:33; Admin Dose 20 MG; Start 12/10/16 at 21:00 Aspirin (Halfprin) 81 mg DAILY PO Last administered on 12/15/16 08:33; Admin Dose 81 MG; Start 12/11/16 at 09:00 Atorvastatin Calcium (Lipitor) 20 mg HS PO Last administered on 12/14/16 20:55 ; Admin Dose 20 MG; Start 12/10/16 at 21:00 Duloxetine HCl (Cymbalta) 20 mg DAILY PO Last administered on 12/15/16 08:33; Admin Dose 20 MG; Start 12/11/16 at 09:00 Gabapentin (Neurontin) 300 mg TID PO Last administered on 12/15/16 12:46; Admin Dose 300 MG; Start 12/10/16 at 21:00 Insulin Glargine (Lantus) 30 unit DAILY@20 SC Last administered on 12/14/16 21: 02; Admin Dose 30 UNIT; Start 12/10/16 at 20:00 Metoprolol Tartrate (Lopressor) 12.5 mg BID PO Last administered on 12/15/16 08 :34; Admin Dose 12.5 MG; Start 12/10/16 at 21:00 Ticagrelor (Brilinta) 90 mg BID PO Last administered on 12/15/16 08:33; Admin Dose 90 MG; Start 12/10/16 at 21:00 Levothyroxine Sodium (Synthroid) 112 mcg DAILY@06 PO Last administered on 05:54; Admin Dose 112 MCG; Start 12/11/16 at 06:00 Insulin Aspart (Novolog Insulin Pen) NOVOLOG *MODERATE* ALGORI... Q4 SC Last administered on 12/15/16 00:38; Admin Dose 2 UNIT; Start 12/10/16 at 21:00 Miscellaneous Information 1 ea NOTE XX ; Start 12/10/16 at 18:30 Glucose (Glutose) 15 gm Q15M PRN PO DECREASED GLUCOSE; Start 12/10/16 at 18:30 Glucose (Glutose) 22.5 gm Q15M PRN PO DECREASED GLUCOSE; Start 12/10/16 at 18: 30 Dextrose (D50w Syringe) 25 ml Q15M PRN IV DECREASED GLUCOSE Last administered on 12/13/16 13:10; Admin Dose 25 ML; Start 12/10/16 at 18:30 Dextrose (D50w Syringe) 50 ml Q15M PRN IV DECREASED GLUCOSE; Start 12/10/16 at 18:30 Glucagon (Glucagen) 1 mg Q15M PRN IM DECREASED GLUCOSE; Start 12/10/16 at 18:30 Glucose 15 gm 15 gm Q15M PRN BUCCAL DECREASED GLUCOSE; Start 12/10/16 at 18:30 Propofol (Diprivan) 100 ml @ 1.755 mls/ hr Q12H IV Last administered on 19:07; Admin Dose 10.53 MLS/HR; Start 12/10/16 at 19:00 Acetaminophen 650 mg 650 mg Q6H PRN NGT PAIN AND OR ELEVATED TEMP Last administered on 12/13/16 17:31; Admin Dose 650 MG; Start 12/10/16 at 21:00 Norepinephrine/ Dextrose (Levophed/D5W) 500 ml @ 1.87 mls/hr TITRATE IV Last administered on 12/11/16 00:20; Admin Dose 3.75 MLS/HR; Start 12/10/16 at 23:30 Acetaminophen (Tylenol Tab) 650 mg Q4H PRN PO NON-CARDIAC PAIN LEVEL (1-3); Start 12/11/16 at 13:00 Morphine Sulfate (morphine) 2 mg Q2H PRN IV FOR NON CARDIAC PAIN (4-10) Last administered on 12/15/16 10:33; Admin Dose 2 MG; Start 12/11/16 at 13:00 Al Hydrox/Mg Hydrox/Simethicone (Mag-Al Plus) 30 ml Q4H PRN PO GASTROINTESTINAL UPSET; Start 12/11/16 at 13:00 Ondansetron HCl 4 mg 4 mg Q4H PRN IV NAUSEA AND/OR VOMITING; Start 12/11/16 at 13:00 Fluconazole/ Sodium Chloride (Diflucan 100 Mg/ NS (Pmx)) 50 ml @ 50 mls/hr Q24H IVPB Last administered on 12/15/16 12:46; Admin Dose 50 MLS/HR; Start 12/13/16 at 12:00 REJI HUDSON MD Dec 15, 2016 19:28
[2016-12-15] MEDS: ACETAMINOPHEN 650MG/20.3ML CUP NGT PRN (20:25)
[2016-12-15] MEDS: SENNA/DOCUSATE NA (8.6MG/50MG) TAB NGT SCH (20:25)
[2016-12-15] MEDS: ATORVASTATIN 20 MG TAB PO SCH (20:25)
[2016-12-15] MEDS: INSULIN GLARGINE [LANtus] 3 ML PEN SC SCH (20:33)
[2016-12-15] MEDS: METOCLOPRAMIDE (1 MG/ML) 10 ML CUP PO SCH (21:19)
[2016-12-16] VITALS (56 sets, daily range): BP systolic 78–130; BP diastolic 35–61; PULSE 72–128; RESP 12–37
[2016-12-16] MEDS ORDERED: DEXMEDETOMIDINE HCL 200 MCG in SOD CHLORIDE 0.9% 48 ML IV SCH (00:30)
[2016-12-16] MEDS: INSULIN ASPART [NOVOLOG] 3 ML PEN SC SCH ×6 (00:34→20:45)
[2016-12-16] MEDS: HEPARIN 25000 UNITS/250 ML 250 ML IV SCH ×2 (00:35→20:46)
[2016-12-16 03:09] LABS: ADD SCAN DIFF NO
[2016-12-16 03:10] LABS: BASOPHILS % 0.3 % (0.0-2.0); EOSINOPHILS # 0.7 10^3/ul (0.0-0.5); EOSINOPHILS % 6.8 % (0.0-7.0); HEMOGLOBIN 10.3 g/dl (12.0-16.0); LYMPHOCYTES # 1.4 10^3/ul (0.8-2.9); LYMPHOCYTES % 12.8 % (15.0-51.0); MEAN CORPUSCULAR HEMOGLOBIN 29.3 pg (29.0-33.0); MEAN CORPUSCULAR HGB CONC 31.2 g/dl (32.0-37.0); MONOCYTE # 1.1 10^3/ul (0.3-0.9); MONOCYTES % 10.7 % (0.0-11.0); NEUTROPHIL # 7.2 10^3/ul (1.6-7.5); NEUTROPHILS % 68.4 % (39.0-77.0); PLATELET COUNT 307 10^3/UL (140-415); RED BLOOD COUNT 3.51 10^6/ul (4.20-5.40); RED CELL DISTRIBUTION WIDTH 13.2 % (11.5-14.5); WHITE BLOOD COUNT 10.6 10^3/ul (4.8-10.8)
[2016-12-16 03:32] LABS: CALCIUM 8.8 mg/dl (8.4-10.2); CREATININE 0.49 mg/dl (0.44-1.00); MAGNESIUM 1.8 mg/dl (1.7-2.5); PHOSPHORUS 4.2 mg/dl (2.5-4.9)
[2016-12-16] MEDS: POTASSIUM CHLORIDE 250 ML IVPB SCH ×2 (05:02→08:43)
[2016-12-16] MEDS: METOCLOPRAMIDE (1 MG/ML) 10 ML CUP PO SCH ×3 (05:08→20:02)
[2016-12-16] MEDS: FUROSEMIDE 20 MG INJ IV SCH ×2 (05:08→18:10)
[2016-12-16] MEDS: LEVOTHYROXINE 112 MCG TAB PO SCH (05:08)
[2016-12-16] MEDS: ASPIRIN (EC) 81 MG TAB PO SCH (08:43)
[2016-12-16] MEDS: GABAPENTIN 300 MG CAP PO SCH ×3 (08:43→20:02)
[2016-12-16] MEDS: DULOXETINE 20 MG CAP DR PO SCH (08:43)
[2016-12-16] MEDS: FAMOTIDINE 20 MG TAB PO SCH ×2 (08:43→20:02)
[2016-12-16] MEDS: TICAGRELOR 90 MG TABLET PO SCH ×2 (08:45→20:01)
[2016-12-16] MEDS: METOPROLOL 25 MG TAB PO SCH ×2 (08:47→20:02)
--- NOTE | 2016-12-16 09:30 | RADRPT ---
PROCEDURE: XR Chest. CLINICAL INDICATION: Pneumonia, CHF TECHNIQUE: Single frontal chest x-ray. COMPARISON: 12/15/2016 FINDINGS: No acute infiltrate, pleural effusion or pneumothorax is identified. There is stable borderline car diomegaly and mild pulmonary vascular congestion. Endotracheal tube, nasogastric tube, and right-si ded PICC line remain in place. The osseous structures are unremarkable. IMPRESSION: 1. Stable borderline cardiomegaly and mild pulmonary vascular congestion. 2. Lines and tubes remain in place. 3. No gross interval change. RPTAT: PP .Boby Olivares MD, MD Date Time Electronically viewed and signed by .Boby Olivares MD, on 12/16/2016 09:30 .R/
--- NOTE | 2016-12-16 10:00 | PN ---
Date/Time of Note Date/Time of Note DATE: 12/16/16 TIME: 09:58 Assessment/Plan Lines/Catheters IV Catheter Type (from Nrs): PICC Line Mccray in Place (from Nrs): Yes Assessment/Plan Chief Complaint/Hosp Course CAD, status post non-ST elevation GA History of lice Cardiomyopathy with ejection fraction 25% Respiratory failure Patient is not a candidate to undergo coronary artery bypass grafting at this time Still intubated FiO2 of 40% Would continue medical management Diuretics Plan for possible coronary artery bypass grafting when medically more stable Problems: Subjective 24 Hr Interval Summary Coronary artery disease Exam/Review of Systems Vital Signs Vitals Vital Signs Date Time Temp Pulse Resp B/P Pulse Ox O2 Delivery O2 Flow Rate FiO2 12/16/16 09:30 78 13 102/46 99 12/16/16 09:00 Mechanical Ventilator 12/16/16 08:00 98.9 12/16/16 08:00 40 Intake and Output 12/15/16 12/15/16 12/16/16 15:00 23:00 07:00 Intake Total 133.000 ml 261.995 ml 450.815 ml Output Total 965 ml 935 ml 550 ml Balance -832.000 ml -673.005 ml -99.185 ml Exam Eyes: EOMI, nl conjunctiva, nl lids, nl sclera ENMT: mucosa pink and moist, nl external ears & nose, nl lips & teeth, nl nasal mucosa & septum Neck: non-tender, supple Respiratory: clear to auscultation, normal air movement Cardiovascular: nl pulses, regular rate and rhythm Gastrointestinal: nl liver, spleen, non-tender, soft Musculoskeletal: nl extremities to inspection, nl gait and stance Extremities: normal pulses Results Result Diagram: 12/16/16 0304 12/16/16 0304 CHELA ALVARENGA MD Dec 16, 2016 10:00
--- NOTE | 2016-12-16 11:15 | CONS ---
Date/Time of Note Date/Time of Note DATE: 12/16/16 TIME: 11:14 Consult Date/Type/Reason Admit Date/Time Dec 10, 2016 at 16:55 Initial Consult Date 12/12/16 Type of Consultation: Pulm/CCM Ordering Provider: ROBEL PETTY MD Subjective Patient is awake alert and oriented on mechanical ventilation. Failed CPAP weaning trial yesterday with increased work of breathing. Objective Vital Signs Date Time Temp Pulse Resp B/P Pulse Ox O2 Delivery O2 Flow Rate FiO2 12/16/16 10:20 78 27 100 40 12/16/16 09:30 102/46 12/16/16 09:00 Mechanical Ventilator 12/16/16 08:00 98.9 Intake and Output 12/15/16 12/15/16 12/16/16 15:00 23:00 07:00 Intake Total 133.000 ml 261.995 ml 450.815 ml Output Total 965 ml 935 ml 550 ml Balance -832.000 ml -673.005 ml -99.185 ml Exam PHYSICAL EXAMINATION GENERAL: Elderly-appearing lady intubated on mechanical ventilation VITAL SIGNS: see below. HEENT: Pupils equal, round, and reactive to light. CARDIAC: S1, S2, 1/6 systolic ejection murmur CHEST: Diminished air entry bilaterally. ABDOMEN: Mildly distended. Bowel sounds present no guarding or rebound EXTREMITIES: No cyanosis, clubbing edema +1 NEUROLOGIC: Generalized weakness Results/Medications Result Diagram: 12/16/16 0304 12/16/16 0304 Results 24 hrs Chest x-ray Mild pulmonary edema. Laboratory Tests Test 12/15/16 12:45 12/15/16 17:13 12/15/16 19:45 12/15/16 20:23 Bedside Glucose 122 132 174 Activated Partial Thromboplast Time 57.3 H Test 12/16/16 00:28 12/16/16 03:04 12/16/16 05:00 12/16/16 09:21 Bedside Glucose 216 112 69 L White Blood Count 10.6 # Red Blood Count 3.51 L Hemoglobin 10.3 L Hematocrit 33.0 L Mean Corpuscular Volume 94.0 Mean Corpuscular Hemoglobin 29.3 Mean Corpuscular Hemoglobin Concent 31.2 L Red Cell Distribution Width 13.2 Platelet Count 307 # Mean Platelet Volume 11.0 H Neutrophils % 68.4 Lymphocytes % 12.8 L Monocytes % 10.7 Eosinophils % 6.8 Basophils % 0.3 Nucleated Red Blood Cells % 0.0 Neutrophils # 7.2 Lymphocytes # 1.4 Monocytes # 1.1 H Eosinophils # 0.7 H Basophils # 0.0 Nucleated Red Blood Cells # 0.0 Activated Partial Thromboplast Time 67.3 H Sodium Level 138 Potassium Level 3.0 L Chloride Level 95 L Carbon Dioxide Level 40 H Anion Gap 6 L Blood Urea Nitrogen 19 Creatinine 0.49 Glucose Level 134 Calcium Level 8.8 Phosphorus Level 4.2 Magnesium Level 1.8 Test 12/16/16 09:26 12/16/16 09:27 Bedside Glucose 71 Activated Partial Thromboplast Time 94.4 *H Medications Current Medications Famotidine (Pepcid) 20 mg Q12 PO Last administered on 12/16/16 08:43; Admin Dose 20 MG; Start 12/10/16 at 21:00 Aspirin (Halfprin) 81 mg DAILY PO Last administered on 12/16/16 08:43; Admin Dose 81 MG; Start 12/11/16 at 09:00 Atorvastatin Calcium (Lipitor) 20 mg HS PO Last administered on 12/15/16 20:25 ; Admin Dose 20 MG; Start 12/10/16 at 21:00 Duloxetine HCl (Cymbalta) 20 mg DAILY PO Last administered on 12/16/16 08:43; Admin Dose 20 MG; Start 12/11/16 at 09:00 Gabapentin (Neurontin) 300 mg TID PO Last administered on 12/16/16 08:43; Admin Dose 300 MG; Start 12/10/16 at 21:00 Insulin Glargine (Lantus) 30 unit DAILY@20 SC Last administered on 12/15/16 20: 33; Admin Dose 30 UNIT; Start 12/10/16 at 20:00 Metoprolol Tartrate (Lopressor) 12.5 mg BID PO Last administered on 12/15/16 08 :34; Admin Dose 12.5 MG; Start 12/10/16 at 21:00 Ticagrelor (Brilinta) 90 mg BID PO Last administered on 12/16/16 08:45; Admin Dose 90 MG; Start 12/10/16 at 21:00 Levothyroxine Sodium (Synthroid) 112 mcg DAILY@06 PO Last administered on 05:08; Admin Dose 112 MCG; Start 12/11/16 at 06:00 Insulin Aspart (Novolog Insulin Pen) NOVOLOG *MODERATE* ALGORI... Q4 SC Last administered on 12/16/16 00:34; Admin Dose 4 UNIT; Start 12/10/16 at 21:00 Miscellaneous Information 1 ea NOTE XX ; Start 12/10/16 at 18:30 Glucose (Glutose) 15 gm Q15M PRN PO DECREASED GLUCOSE; Start 12/10/16 at 18:30 Glucose (Glutose) 22.5 gm Q15M PRN PO DECREASED GLUCOSE; Start 12/10/16 at 18: 30 Dextrose (D50w Syringe) 25 ml Q15M PRN IV DECREASED GLUCOSE Last administered on 12/13/16 13:10; Admin Dose 25 ML; Start 12/10/16 at 18:30 Dextrose (D50w Syringe) 50 ml Q15M PRN IV DECREASED GLUCOSE; Start 12/10/16 at 18:30 Glucagon (Glucagen) 1 mg Q15M PRN IM DECREASED GLUCOSE; Start 12/10/16 at 18:30 Glucose 15 gm 15 gm Q15M PRN BUCCAL DECREASED GLUCOSE; Start 12/10/16 at 18:30 Propofol (Diprivan) 100 ml @ 1.755 mls/ hr Q12H IV Last administered on 19:07; Admin Dose 10.53 MLS/HR; Start 12/10/16 at 19:00 Acetaminophen 650 mg 650 mg Q6H PRN NGT PAIN AND OR ELEVATED TEMP Last administered on 12/15/16 20:25; Admin Dose 650 MG; Start 12/10/16 at 21:00 Norepinephrine/ Dextrose (Levophed/D5W) 500 ml @ 1.87 mls/hr TITRATE IV Last administered on 12/11/16 00:20; Admin Dose 3.75 MLS/HR; Start 12/10/16 at 23:30 Acetaminophen (Tylenol Tab) 650 mg Q4H PRN PO NON-CARDIAC PAIN LEVEL (1-3); Start 12/11/16 at 13:00 Morphine Sulfate (morphine) 2 mg Q2H PRN IV FOR NON CARDIAC PAIN (4-10) Last administered on 12/15/16 10:33; Admin Dose 2 MG; Start 12/11/16 at 13:00 Al Hydrox/Mg Hydrox/Simethicone (Mag-Al Plus) 30 ml Q4H PRN PO GASTROINTESTINAL UPSET; Start 12/11/16 at 13:00 Ondansetron HCl 4 mg 4 mg Q4H PRN IV NAUSEA AND/OR VOMITING; Start 12/11/16 at 13:00 Fluconazole/ Sodium Chloride (Diflucan 100 Mg/ NS (Pmx)) 50 ml @ 50 mls/hr Q24H IVPB Last administered on 12/15/16 12:46; Admin Dose 50 MLS/HR; Start 12/13/16 at 12:00 Metoclopramide HCl (Reglan Liq) 10 mg Q8 PO Last administered on 12/16/16 05:08 ; Admin Dose 10 MG; Start 12/15/16 at 22:00 Senna/Docusate Sodium 2 tab 2 tab HS NGT Last administered on 12/15/16 20:25; Admin Dose 2 TAB; Start 12/15/16 at 21:00 Dexmedetomidine HCl 200 mcg/ Sodium Chloride 50 ml @ 0 mls/hr TITRATE IV Last administered on 12/16/16 00:36; Admin Dose 2.92 MLS/HR; Start 12/16/16 at 00:30 Potassium Chloride (KCl 40 MEQ/250 ML NS) 250 ml @ 62.5 mls/hr Q4H IVPB Last administered on 12/16/16 08:43; Admin Dose 62.5 MLS/HR; Start 12/16/16 at 05:00; Stop 12/16/16 at 12:59 Assessment/Plan Chief Complaint/Hosp Course IMP: 1. s/p NSTEMI 2. Resp Failure--due to pulm edema 3. AMS-resolved likely toxic metabolic encephalopathy 4. Anemia 5. Hypokalemia RECS: 1. More aggressive diuresis 2. CPAP trial today. 3. Precedex gtt to facilitate weaning given concern for agitation off sedation 4. Am labs/CXR 5. Adequate pain control. 6. DVT and GI prophylaxis 7. Replace potassium 35 min cc time Problems: STEFANI GONZALES MD, FCCP Dec 16, 2016 11:15
[2016-12-16] MEDS: FLUCONAZOLE 100 MG/NS (PMX) 50 ML IVPB SCH (12:24)
[2016-12-16 12:42] LABS: AADO2 Arterial 152.4 mmHg (7.0-24.0); Allen Test ACCEPTAB; Arterial Base Excess 9.3 mmol/L (-3.0-3); Arterial COHb 0.2 % (0.0-3.0); Arterial Fraction of Oxyhgb 95.3 % (93.0-99.0); Arterial HCO3 33.6 mmol/L (22.0-26.0); Arterial MetHb 0.3 % (0.0-1.5); Arterial Total Hemglobin 12.6 g/dl (12.0-18.0); Blood Gas PS 8; MODE VENT - CPAP
--- NOTE | 2016-12-16 12:51 | CONS ---
Date/Time of Note Date/Time of Note DATE: 12/16/16 TIME: 12:49 Assessment/Plan Assessment/Plan Additional Assessment/Plan 1.NSTEMI-peak trop>60 Now dowtrending. s/p LHC with patent RCA stents and high grade disease of LAD/LCX with small caliber vessels - CABG eval in progress - not a surgical candidate now. 2.cardiomyopathy-LVEF 40-45 BY OSH echo - repeat EF 20-25% - med rx now - gentle diuresis to follow - con't diuresis as tolerated 3.Hypotension-currently off of pressors - con't to follow - BETTER NOW 4.resp failure s/p intubation - con't resp Rx - in pulmonary edema- gentle diuresis now 5.anemia - H/H stable - no bleed 6. 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) Exam/Review of Systems Vital Signs Vitals Vital Signs Date Time Temp Pulse Resp B/P Pulse Ox O2 Delivery O2 Flow Rate FiO2 12/16/16 12:30 80 29 105/46 98 12/16/16 12:00 98.4 Mechanical Ventilator 12/16/16 11:40 40 Intake and Output 12/15/16 12/15/16 12/16/16 15:00 23:00 07:00 Intake Total 133.000 ml 261.995 ml 450.815 ml Output Total 965 ml 935 ml 550 ml Balance -832.000 ml -673.005 ml -99.185 ml Exam General: WN/WD/NAD, AOx 0 HEENT: Unicetric/atraumatic/EOMI (does not follow commands) NECK: JVD elevated, no thyromegaly, intb Lymph: no lymphadenopathy HEART: regular with no S3, II/ systolic murmur at apex, pMI L LUNGS: Coarse sounds ABD: soft, NT, ND, +BS : Intact Neuro: non focal SKIN: chronic changes EXT: trace edema Results Result Diagram: 12/16/16 0304 12/16/16 0304 Results 24 hrs Laboratory Tests Test 12/15/16 17:13 12/15/16 19:45 12/15/16 20:23 12/16/16 00:28 Bedside Glucose 132 174 216 Activated Partial Thromboplast Time 57.3 H Test 12/16/16 03:04 12/16/16 05:00 12/16/16 09:21 12/16/16 09:26 White Blood Count 10.6 # Red Blood Count 3.51 L Hemoglobin 10.3 L Hematocrit 33.0 L Mean Corpuscular Volume 94.0 Mean Corpuscular Hemoglobin 29.3 Mean Corpuscular Hemoglobin Concent 31.2 L Red Cell Distribution Width 13.2 Platelet Count 307 # Mean Platelet Volume 11.0 H Neutrophils % 68.4 Lymphocytes % 12.8 L Monocytes % 10.7 Eosinophils % 6.8 Basophils % 0.3 Nucleated Red Blood Cells % 0.0 Neutrophils # 7.2 Lymphocytes # 1.4 Monocytes # 1.1 H Eosinophils # 0.7 H Basophils # 0.0 Nucleated Red Blood Cells # 0.0 Activated Partial Thromboplast Time 67.3 H Sodium Level 138 Potassium Level 3.0 L Chloride Level 95 L Carbon Dioxide Level 40 H Anion Gap 6 L Blood Urea Nitrogen 19 Creatinine 0.49 Glucose Level 134 Calcium Level 8.8 Phosphorus Level 4.2 Magnesium Level 1.8 Bedside Glucose 112 69 L 71 Test 12/16/16 09:27 12/16/16 12:00 Activated Partial Thromboplast Time 94.4 *H Blood Gas Specimen Source Blood arterial Arterial Blood Date Drawn 12/16/2016 12:30:48 PM Arterial Blood pH (Temp corrected) 7.497 H Arterial Blood pCO2 (Temp correct) 44.4 Arterial Blood pO2 (Temp corrected) 81.7 Arterial Blood HCO3 33.6 H Arterial Blood Base Excess 9.3 H Arterial Blood Oxygen Saturation 95.8 Miguel Test ACCEPTAB Arterial Blood Gas Puncture Site Left Radial Arterial Blood Carboxyhemoglobin 0.2 Arterial Blood Methemoglobin 0.3 Blood Gas A-a O2 Differential 152.4 H Oxyhemoglobin Percent 95.3 Total Hemoglobin 12.6 Blood Gas Temperature 37.0 Blood Gas Actual Respiration Rate 29 Blood Gas Modality VENT - CPAP FiO2 40.0 Blood Gas Low PEEP Setting 5.0 Blood Gas Pressure Support 8 Blood Gas Notified Whom KB Blood Gas Notified Time 12/16/2016 12:41:56 PM Medications Medications Current Medications Famotidine (Pepcid) 20 mg Q12 PO Last administered on 12/16/16 08:43; Admin Dose 20 MG; Start 12/10/16 at 21:00 Aspirin (Halfprin) 81 mg DAILY PO Last administered on 12/16/16 08:43; Admin Dose 81 MG; Start 12/11/16 at 09:00 Atorvastatin Calcium (Lipitor) 20 mg HS PO Last administered on 12/15/16 20:25 ; Admin Dose 20 MG; Start 12/10/16 at 21:00 Duloxetine HCl (Cymbalta) 20 mg DAILY PO Last administered on 12/16/16 08:43; Admin Dose 20 MG; Start 12/11/16 at 09:00 Gabapentin (Neurontin) 300 mg TID PO Last administered on 12/16/16 08:43; Admin Dose 300 MG; Start 12/10/16 at 21:00 Insulin Glargine (Lantus) 30 unit DAILY@20 SC Last administered on 12/15/16 20: 33; Admin Dose 30 UNIT; Start 12/10/16 at 20:00 Metoprolol Tartrate (Lopressor) 12.5 mg BID PO Last administered on 12/15/16 08 :34; Admin Dose 12.5 MG; Start 12/10/16 at 21:00 Ticagrelor (Brilinta) 90 mg BID PO Last administered on 12/16/16 08:45; Admin Dose 90 MG; Start 12/10/16 at 21:00 Levothyroxine Sodium (Synthroid) 112 mcg DAILY@06 PO Last administered on 05:08; Admin Dose 112 MCG; Start 12/11/16 at 06:00 Insulin Aspart (Novolog Insulin Pen) NOVOLOG *MODERATE* ALGORI... Q4 SC Last administered on 12/16/16 00:34; Admin Dose 4 UNIT; Start 12/10/16 at 21:00 Miscellaneous Information 1 ea NOTE XX ; Start 12/10/16 at 18:30 Glucose (Glutose) 15 gm Q15M PRN PO DECREASED GLUCOSE; Start 12/10/16 at 18:30 Glucose (Glutose) 22.5 gm Q15M PRN PO DECREASED GLUCOSE; Start 12/10/16 at 18: 30 Dextrose (D50w Syringe) 25 ml Q15M PRN IV DECREASED GLUCOSE Last administered on 12/13/16 13:10; Admin Dose 25 ML; Start 12/10/16 at 18:30 Dextrose (D50w Syringe) 50 ml Q15M PRN IV DECREASED GLUCOSE; Start 12/10/16 at 18:30 Glucagon (Glucagen) 1 mg Q15M PRN IM DECREASED GLUCOSE; Start 12/10/16 at 18:30 Glucose 15 gm 15 gm Q15M PRN BUCCAL DECREASED GLUCOSE; Start 12/10/16 at 18:30 Propofol (Diprivan) 100 ml @ 1.755 mls/ hr Q12H IV Last administered on 19:07; Admin Dose 10.53 MLS/HR; Start 12/10/16 at 19:00 Acetaminophen 650 mg 650 mg Q6H PRN NGT PAIN AND OR ELEVATED TEMP Last administered on 12/15/16 20:25; Admin Dose 650 MG; Start 12/10/16 at 21:00 Norepinephrine/ Dextrose (Levophed/D5W) 500 ml @ 1.87 mls/hr TITRATE IV Last administered on 12/11/16 00:20; Admin Dose 3.75 MLS/HR; Start 12/10/16 at 23:30 Acetaminophen (Tylenol Tab) 650 mg Q4H PRN PO NON-CARDIAC PAIN LEVEL (1-3); Start 12/11/16 at 13:00 Morphine Sulfate (morphine) 2 mg Q2H PRN IV FOR NON CARDIAC PAIN (4-10) Last administered on 12/15/16 10:33; Admin Dose 2 MG; Start 12/11/16 at 13:00 Al Hydrox/Mg Hydrox/Simethicone (Mag-Al Plus) 30 ml Q4H PRN PO GASTROINTESTINAL UPSET; Start 12/11/16 at 13:00 Ondansetron HCl 4 mg 4 mg Q4H PRN IV NAUSEA AND/OR VOMITING; Start 12/11/16 at 13:00 Fluconazole/ Sodium Chloride (Diflucan 100 Mg/ NS (Pmx)) 50 ml @ 50 mls/hr Q24H IVPB Last administered on 12/16/16 12:24; Admin Dose 50 MLS/HR; Start 12/13/16 at 12:00 Metoclopramide HCl (Reglan Liq) 10 mg Q8 PO Last administered on 12/16/16 05:08 ; Admin Dose 10 MG; Start 12/15/16 at 22:00 Senna/Docusate Sodium 2 tab 2 tab HS NGT Last administered on 12/15/16 20:25; Admin Dose 2 TAB; Start 12/15/16 at 21:00 Dexmedetomidine HCl 200 mcg/ Sodium Chloride 50 ml @ 0 mls/hr TITRATE IV Last administered on 12/16/16 00:36; Admin Dose 2.92 MLS/HR; Start 12/16/16 at 00:30 Potassium Chloride (KCl 40 MEQ/250 ML NS) 250 ml @ 62.5 mls/hr Q4H IVPB Last administered on 12/16/16 08:43; Admin Dose 62.5 MLS/HR; Start 12/16/16 at 05:00; Stop 12/16/16 at 12:59 ARTIE MARADIAGA MD Dec 16, 2016 12:50
--- NOTE | 2016-12-16 14:52 | PN ---
Date/Time of Note Date/Time of Note DATE: 12/16/16 TIME: 14:50 Assessment/Plan VTE Prophylaxis VTE Prophylaxis Intervention: LMWH Lines/Catheters IV Catheter Type (from Nrs): PICC Line Central line still needed: Yes (IV access) Urinary Cath still in place: Yes Reason Cath still needed: skin wounds contaminated by urine Assessment/Plan Chief Complaint/Hosp Course S: 12/15 failed extubation/CPAP trial today. High residuals with tube feeds yesterday. 12/16 events noted. Hypoglycemia noted. O: Vital signs noted PE Orally intubated. No pallor. Reg, no m/r/g Mechanical bs bilaterally. Bs dimin, nt nd, no RR G No edema Assessment and plan 1. Acute respiratory failure, stable cont supplemental oxygen. 2. NSTEMI. Sp cath -s/p LHC w patent RCA stents and high grade disease of LAD/ LCX w small caliber vessels. CABG if stable. 3. Ischemic cmy EF 25%. Cont medical management. 4. DKA resolved. 4. Chr type 2 DM; a1c= 9.1 6. Chr hypothyroidism 7. Tobacco abuse; offer patch 7. Deconditioning; PT may need sniff. 9. Nephrolithiasis; cholelithiasis 10. Lice 11. Fungal cystitis Problems: Exam/Review of Systems Vital Signs Vitals Vital Signs Date Time Temp Pulse Resp B/P Pulse Ox O2 Delivery O2 Flow Rate FiO2 12/16/16 13:55 96 10.0 12/16/16 13:20 79 28 Simple Mask 12/16/16 12:30 105/46 12/16/16 12:00 98.4 12/16/16 11:40 40 Intake and Output 12/15/16 12/15/16 12/16/16 15:00 23:00 07:00 Intake Total 133.000 ml 261.995 ml 450.815 ml Output Total 965 ml 935 ml 550 ml Balance -832.000 ml -673.005 ml -99.185 ml Results Result Diagram: 12/16/16 0304 12/16/16 0304 Results 24 hrs Laboratory Tests Test 12/15/16 17:13 12/15/16 19:45 12/15/16 20:23 12/16/16 00:28 Bedside Glucose 132 174 216 Activated Partial Thromboplast Time 57.3 H Test 12/16/16 03:04 12/16/16 05:00 12/16/16 09:21 12/16/16 09:26 White Blood Count 10.6 # Red Blood Count 3.51 L Hemoglobin 10.3 L Hematocrit 33.0 L Mean Corpuscular Volume 94.0 Mean Corpuscular Hemoglobin 29.3 Mean Corpuscular Hemoglobin Concent 31.2 L Red Cell Distribution Width 13.2 Platelet Count 307 # Mean Platelet Volume 11.0 H Neutrophils % 68.4 Lymphocytes % 12.8 L Monocytes % 10.7 Eosinophils % 6.8 Basophils % 0.3 Nucleated Red Blood Cells % 0.0 Neutrophils # 7.2 Lymphocytes # 1.4 Monocytes # 1.1 H Eosinophils # 0.7 H Basophils # 0.0 Nucleated Red Blood Cells # 0.0 Activated Partial Thromboplast Time 67.3 H Sodium Level 138 Potassium Level 3.0 L Chloride Level 95 L Carbon Dioxide Level 40 H Anion Gap 6 L Blood Urea Nitrogen 19 Creatinine 0.49 Glucose Level 134 Calcium Level 8.8 Phosphorus Level 4.2 Magnesium Level 1.8 Bedside Glucose 112 69 L 71 Test 12/16/16 09:27 12/16/16 12:00 12/16/16 12:30 Activated Partial Thromboplast Time 94.4 *H Blood Gas Specimen Source Blood arterial Arterial Blood Date Drawn 12/16/2016 12:30:48 PM Arterial Blood pH (Temp corrected) 7.497 H Arterial Blood pCO2 (Temp correct) 44.4 Arterial Blood pO2 (Temp corrected) 81.7 Arterial Blood HCO3 33.6 H Arterial Blood Base Excess 9.3 H Arterial Blood Oxygen Saturation 95.8 Miguel Test ACCEPTAB Arterial Blood Gas Puncture Site Left Radial Arterial Blood Carboxyhemoglobin 0.2 Arterial Blood Methemoglobin 0.3 Blood Gas A-a O2 Differential 152.4 H Oxyhemoglobin Percent 95.3 Total Hemoglobin 12.6 Blood Gas Temperature 37.0 Blood Gas Actual Respiration Rate 29 Blood Gas Modality VENT - CPAP FiO2 40.0 Blood Gas Low PEEP Setting 5.0 Blood Gas Pressure Support 8 Blood Gas Notified Whom KB Blood Gas Notified Time 12/16/2016 12:41:56 PM Bedside Glucose 93 Medications Medications Current Medications Famotidine (Pepcid) 20 mg Q12 PO Last administered on 12/16/16t 08:43; Admin Dose 20 MG; Start 12/10/16 at 21:00 Aspirin (Halfprin) 81 mg DAILY PO Last administered on 12/16/16 08:43; Admin Dose 81 MG; Start 12/11/16 at 09:00 Atorvastatin Calcium (Lipitor) 20 mg HS PO Last administered on 12/15/16 20:25 ; Admin Dose 20 MG; Start 12/10/16 at 21:00 Duloxetine HCl (Cymbalta) 20 mg DAILY PO Last administered on 12/16/16 08:43; Admin Dose 20 MG; Start 12/11/16 at 09:00 Gabapentin (Neurontin) 300 mg TID PO Last administered on 12/16/16 13:12; Admin Dose 300 MG; Start 12/10/16 at 21:00 Insulin Glargine (Lantus) 30 unit DAILY@20 SC Last administered on 12/15/16 20: 33; Admin Dose 30 UNIT; Start 12/10/16 at 20:00 Metoprolol Tartrate (Lopressor) 12.5 mg BID PO Last administered on 12/15/16 08 :34; Admin Dose 12.5 MG; Start 12/10/16 at 21:00 Ticagrelor (Brilinta) 90 mg BID PO Last administered on 12/16/16 08:45; Admin Dose 90 MG; Start 12/10/16 at 21:00 Levothyroxine Sodium (Synthroid) 112 mcg DAILY@06 PO Last administered on 05:08; Admin Dose 112 MCG; Start 12/11/16 at 06:00 Insulin Aspart (Novolog Insulin Pen) NOVOLOG *MODERATE* ALGORI... Q4 SC Last administered on 12/16/16 00:34; Admin Dose 4 UNIT; Start 12/10/16 at 21:00 Miscellaneous Information 1 ea NOTE XX ; Start 12/10/16 at 18:30 Glucose (Glutose) 15 gm Q15M PRN PO DECREASED GLUCOSE; Start 12/10/16 at 18:30 Glucose (Glutose) 22.5 gm Q15M PRN PO DECREASED GLUCOSE; Start 12/10/16 at 18: 30 Dextrose (D50w Syringe) 25 ml Q15M PRN IV DECREASED GLUCOSE Last administered on 12/13/16 13:10; Admin Dose 25 ML; Start 12/10/16 at 18:30 Dextrose (D50w Syringe) 50 ml Q15M PRN IV DECREASED GLUCOSE; Start 12/10/16 at 18:30 Glucagon (Glucagen) 1 mg Q15M PRN IM DECREASED GLUCOSE; Start 12/10/16 at 18:30 Glucose 15 gm 15 gm Q15M PRN BUCCAL DECREASED GLUCOSE; Start 12/10/16 at 18:30 Propofol (Diprivan) 100 ml @ 1.755 mls/ hr Q12H IV Last administered on 19:07; Admin Dose 10.53 MLS/HR; Start 12/10/16 at 19:00 Acetaminophen 650 mg 650 mg Q6H PRN NGT PAIN AND OR ELEVATED TEMP Last administered on 12/15/16 20:25; Admin Dose 650 MG; Start 12/10/16 at 21:00 Norepinephrine/ Dextrose (Levophed/D5W) 500 ml @ 1.87 mls/hr TITRATE IV Last administered on 12/11/16 00:20; Admin Dose 3.75 MLS/HR; Start 12/10/16 at 23:30 Acetaminophen (Tylenol Tab) 650 mg Q4H PRN PO NON-CARDIAC PAIN LEVEL (1-3); Start 12/11/16 at 13:00 Morphine Sulfate (morphine) 2 mg Q2H PRN IV FOR NON CARDIAC PAIN (4-10) Last administered on 12/15/16 10:33; Admin Dose 2 MG; Start 12/11/16 at 13:00 Al Hydrox/Mg Hydrox/Simethicone (Mag-Al Plus) 30 ml Q4H PRN PO GASTROINTESTINAL UPSET; Start 12/11/16 at 13:00 Ondansetron HCl 4 mg 4 mg Q4H PRN IV NAUSEA AND/OR VOMITING; Start 12/11/16 at 13:00 Fluconazole/ Sodium Chloride (Diflucan 100 Mg/ NS (Pmx)) 50 ml @ 50 mls/hr Q24H IVPB Last administered on 12/16/16 12:24; Admin Dose 50 MLS/HR; Start 12/13/16 at 12:00 Metoclopramide HCl (Reglan Liq) 10 mg Q8 PO Last administered on 12/16/16 13:11 ; Admin Dose 10 MG; Start 12/15/16 at 22:00 Senna/Docusate Sodium 2 tab 2 tab HS NGT Last administered on 12/15/16 20:25; Admin Dose 2 TAB; Start 12/15/16 at 21:00 Dexmedetomidine HCl/Sodium Chloride (Precedex/NS) 50 ml @ 0 mls/hr TITRATE IV Last administered on 12/16/16 00:36; Admin Dose 2.92 MLS/HR; Start 12/16/16 at 00 :30 REJI HUDSON MD Dec 16, 2016 14:51
[2016-12-16] MEDS ORDERED: FUROSEMIDE 40 MG INJ IV ONE (15:30)
[2016-12-16] MEDS ORDERED: ALBUTEROL/IPRATROPIUM (NEB) 3 ML AMP HHN SCH (15:30)
[2016-12-16] MEDS: ALBUTEROL/IPRATROPIUM (NEB) 3 ML AMP HHN SCH ×3 (15:38→20:13)
[2016-12-16] MEDS: PROPOFOL 100 ML IV SCH (19:00)
[2016-12-16] MEDS: SENNA/DOCUSATE NA (8.6MG/50MG) TAB NGT SCH (20:01)
[2016-12-16] MEDS: ATORVASTATIN 20 MG TAB PO SCH (20:02)
[2016-12-16] MEDS: INSULIN GLARGINE [LANtus] 3 ML PEN SC SCH (20:46)
[2016-12-16] MEDS ORDERED: METOPROLOL 5 MG INJ IV ONE (21:00)
[2016-12-16 21:39] LABS: AADO2 Arterial 556.4 mmHg (7.0-24.0); Arterial Base Excess 6.7 mmol/L (-3.0-3); Arterial COHb 0.3 % (0.0-3.0); Arterial Fraction of Oxyhgb 89.9 % (93.0-99.0); Arterial HCO3 37.2 mmol/L (22.0-26.0); Arterial MetHb 0.4 % (0.0-1.5); Arterial Total Hemglobin 13.8 g/dl (12.0-18.0); MODE NON-REBREATHING MASK
[2016-12-16] MEDS: HEPARIN 1000 UNITS/ML 10 ML INJ IV PRN (23:08)
[2016-12-16 23:10] LABS: AADO2 Arterial 297.3 mmHg (7.0-24.0); Arterial Base Excess 7.9 mmol/L (-3.0-3); Arterial COHb 0.3 % (0.0-3.0); Arterial HCO3 32.9 mmol/L (22.0-26.0); Arterial MetHb 0.3 % (0.0-1.5); Arterial Total Hemglobin 12.2 g/dl (12.0-18.0); Blood Gas IEPAP 20/6; Blood Gas PS 14; MODE BCPAP
[2016-12-17] VITALS (36 sets, daily range): BP systolic 90–116; BP diastolic 36–54; PULSE 86–120; RESP 17–25
[2016-12-17] MEDS: INSULIN ASPART [NOVOLOG] 3 ML PEN SC SCH ×6 (00:49→20:43)
[2016-12-17] MEDS: ALBUTEROL/IPRATROPIUM (NEB) 3 ML AMP HHN SCH ×4 (02:14→21:28)
[2016-12-17 05:06] LABS: ADD SCAN DIFF NO
[2016-12-17 05:12] LABS: BASOPHILS % 0.2 % (0.0-2.0); EOSINOPHILS # 0.1 10^3/ul (0.0-0.5); HEMATOCRIT 32.1 % (37.0-47.0); HEMOGLOBIN 10.1 g/dl (12.0-16.0); LYMPHOCYTES # 1.1 10^3/ul (0.8-2.9); LYMPHOCYTES % 8.9 % (15.0-51.0); MEAN CORPUSCULAR HEMOGLOBIN 29.9 pg (29.0-33.0); MEAN CORPUSCULAR HGB CONC 31.5 g/dl (32.0-37.0); MEAN PLATELET VOLUME 10.7 fl (7.4-10.4); MONOCYTE # 1.3 10^3/ul (0.3-0.9); MONOCYTES % 10.5 % (0.0-11.0); NEUTROPHIL # 9.8 10^3/ul (1.6-7.5); NEUTROPHILS % 78.5 % (39.0-77.0); PLATELET COUNT 395 10^3/UL (140-415); RED BLOOD COUNT 3.38 10^6/ul (4.20-5.40); RED CELL DISTRIBUTION WIDTH 13.2 % (11.5-14.5); WHITE BLOOD COUNT 12.5 10^3/ul (4.8-10.8)
[2016-12-17 05:32] LABS: CALCIUM 8.9 mg/dl (8.4-10.2); CREATININE 0.52 mg/dl (0.44-1.00); MAGNESIUM 1.7 mg/dl (1.7-2.5); POTASSIUM 3.6 mmol/L (3.5-5.1)
[2016-12-17] MEDS: METOCLOPRAMIDE (1 MG/ML) 10 ML CUP PO SCH ×2 (05:41→13:02)
[2016-12-17] MEDS: LEVOTHYROXINE 112 MCG TAB PO SCH (05:41)
[2016-12-17] MEDS: PROPOFOL 100 ML IV SCH (05:41)
[2016-12-17] MEDS: FUROSEMIDE 20 MG INJ IV SCH (05:42)
--- NOTE | 2016-12-17 07:28 | RADRPT ---
PROCEDURE: XR Chest. CLINICAL INDICATION: pna chf TECHNIQUE: Single frontal view of the chest was obtained COMPARISON: 12/16/2016 FINDINGS: There has been interval extubation and removal of the nasogastric tube. A right PICC line remains in satisfactory position. The cardiac silhouette is mildly enlarged. Pulmonary vascular congestion is slightly improved. There is an interstitial infiltrate in the left upper lobe and medial right lower lobe. The pleural spaces are clear. The bones and soft tissue show no acute change. IMPRESSION: 1. Interval extubation and removal of the nasogastric tube. 2. Some improvement to pulmonary vascular congestion. 3. The interstitial infiltrates are seen in the left upper lobe and medial right lower lobe. 4. The heart remains mildly enlarged. RPTAT:AAJJ Physician Aurelia Date Time Electronically viewed and signed by Dre Romo Physician on 12/17/2016 07:28 /
[2016-12-17] MEDS: ASPIRIN (EC) 81 MG TAB PO SCH (08:34)
[2016-12-17] MEDS: METOPROLOL 25 MG TAB PO SCH ×2 (08:34→20:53)
[2016-12-17] MEDS: DULOXETINE 20 MG CAP DR PO SCH (08:34)
[2016-12-17] MEDS: TICAGRELOR 90 MG TABLET PO SCH ×3 (08:34→20:41)
[2016-12-17] MEDS: FAMOTIDINE 20 MG TAB PO SCH ×2 (08:35→20:33)
[2016-12-17] MEDS: GABAPENTIN 300 MG CAP PO SCH ×3 (08:35→20:56)
--- NOTE | 2016-12-17 10:58 | CONS ---
Date/Time of Note Date/Time of Note DATE: 12/17/16 TIME: 10:56 Consult Date/Type/Reason Admit Date/Time Dec 10, 2016 at 16:55 Initial Consult Date 12/12/16 Type of Consultation: Pulm/CCM Ordering Provider: ROBEL PETTY MD Subjective Patient was safely extubated yesterday. However she required noninvasive positive pressure overnight and this morning. She remains awake alert and oriented. Objective Vital Signs Date Time Temp Pulse Resp B/P Pulse Ox O2 Delivery O2 Flow Rate FiO2 12/17/16 10:00 105 22 103/46 96 Mask 10.0 12/17/16 08:00 98.5 12/17/16 07:38 40 Intake and Output 12/16/16 12/16/16 12/17/16 15:00 23:00 07:00 Intake Total 485.62 ml 77.5 ml 99.0 ml Output Total 870 ml 1410 ml 185 ml Balance -384.38 ml -1332.5 ml -86.0 ml Exam PHYSICAL EXAMINATION GENERAL: Elderly-appearing lady on BiPAP VITAL SIGNS: see below. HEENT: Pupils equal, round, and reactive to light. CARDIAC: S1, S2, 1/6 systolic ejection murmur CHEST: Diminished air entry bilaterally. ABDOMEN: Mildly distended. Bowel sounds present no guarding or rebound EXTREMITIES: No cyanosis, clubbing edema +1 NEUROLOGIC: Generalized weakness Results/Medications Result Diagram: 12/17/16 0440 12/17/16 0440 Results 24 hrs Chest x-ray Pulmonary edema Laboratory Tests Test 12/16/16 12:00 12/16/16 12:30 12/16/16 14:30 12/16/16 16:25 Blood Gas Specimen Source Blood arterial Arterial Blood Date Drawn 12/16/2016 12:30:48 PM Arterial Blood pH (Temp corrected) 7.497 H Arterial Blood pCO2 (Temp correct) 44.4 Arterial Blood pO2 (Temp corrected) 81.7 Arterial Blood HCO3 33.6 H Arterial Blood Base Excess 9.3 H Arterial Blood Oxygen Saturation 95.8 Miguel Test ACCEPTAB Arterial Blood Gas Puncture Site Left Radial Arterial Blood Carboxyhemoglobin 0.2 Arterial Blood Methemoglobin 0.3 Blood Gas A-a O2 Differential 152.4 H Oxyhemoglobin Percent 95.3 Total Hemoglobin 12.6 Blood Gas Temperature 37.0 Blood Gas Actual Respiration Rate 29 Blood Gas Modality VENT - CPAP FiO2 40.0 Blood Gas Low PEEP Setting 5.0 Blood Gas Pressure Support 8 Blood Gas Notified Whom KB Blood Gas Notified Time 12/16/2016 12:41:56 PM Bedside Glucose 93 Potassium Level 4.9 Activated Partial Thromboplast Time 156.0 *H Test 12/16/16 17:13 12/16/16 19:44 12/16/16 20:38 12/16/16 22:05 Bedside Glucose 259 H 205 Blood Gas Specimen Source Blood arterial Arterial Blood Date Drawn 12/16/2016 8:22:00 PM Arterial Blood pH (Temp corrected) 7.250 *L Arterial Blood pCO2 (Temp correct) 86.8 *H Arterial Blood pO2 (Temp corrected) 69.8 L Arterial Blood HCO3 37.2 H Arterial Blood Base Excess 6.7 H Arterial Blood Oxygen Saturation 90.5 L Miguel Test N/A Arterial Blood Gas Puncture Site LB Arterial Blood Carboxyhemoglobin 0.3 Arterial Blood Methemoglobin 0.4 Blood Gas A-a O2 Differential 556.4 H Oxyhemoglobin Percent 89.9 L Total Hemoglobin 13.8 Blood Gas Temperature 37.0 Blood Gas Modality NON-REBREATHING MASK FiO2 100.0 Blood Gas Critical Value Read Back Annita GARCÍA RN Blood Gas Notified Whom BT Blood Gas Notified Time 12/16/2016 8:36:00 PM Activated Partial Thromboplast Time 46.2 H Test 12/16/16 23:00 12/17/16 00:42 12/17/16 04:40 12/17/16 05:40 Blood Gas Specimen Source Blood arterial Arterial Blood Date Drawn 12/16/2016 11:00:38 PM Arterial Blood pH (Temp corrected) 7.455 H Arterial Blood pCO2 (Temp correct) 47.9 H Arterial Blood pO2 (Temp corrected) 150.3 H Arterial Blood HCO3 32.9 H Arterial Blood Base Excess 7.9 H Arterial Blood Oxygen Saturation 98.6 H Miguel Test N/A Arterial Blood Gas Puncture Site LB Arterial Blood Carboxyhemoglobin 0.3 Arterial Blood Methemoglobin 0.3 Blood Gas A-a O2 Differential 297.3 H Oxyhemoglobin Percent 98.0 Total Hemoglobin 12.2 Blood Gas Temperature 37.0 Blood Gas Respiration Rate 20.0 Blood Gas Modality BCPAP FiO2 70.0 Blood Gas Pressure Support 14 Blood Gas IPAP/EPAP Ratio 20/6 Blood Gas Critical Value Read Back Mohini GARCÍA RN Blood Gas Notified Whom BT Blood Gas Notified Time 12/16/2016 11:10:12 PM Bedside Glucose 225 H 97 White Blood Count 12.5 H Red Blood Count 3.38 L Hemoglobin 10.1 L Hematocrit 32.1 L Mean Corpuscular Volume 95.0 Mean Corpuscular Hemoglobin 29.9 Mean Corpuscular Hemoglobin Concent 31.5 L Red Cell Distribution Width 13.2 Platelet Count 395 # Mean Platelet Volume 10.7 H Neutrophils % 78.5 H Lymphocytes % 8.9 L Monocytes % 10.5 Eosinophils % 1.0 Basophils % 0.2 Nucleated Red Blood Cells % 0.0 Neutrophils # 9.8 H Lymphocytes # 1.1 Monocytes # 1.3 H Eosinophils # 0.1 Basophils # 0.0 Nucleated Red Blood Cells # 0.0 Activated Partial Thromboplast Time 92.5 *H Sodium Level 143 Potassium Level 3.6 Chloride Level 98 Carbon Dioxide Level 39 H Anion Gap 10 Blood Urea Nitrogen 21 H Creatinine 0.52 Glucose Level 105 Calcium Level 8.9 Phosphorus Level 3.0 Magnesium Level 1.7 Test 12/17/16 08:15 Bedside Glucose 96 Medications Current Medications Famotidine (Pepcid) 20 mg Q12 PO Last administered on 12/16/16 08:43; Admin Dose 20 MG; Start 12/10/16 at 21:00 Aspirin (Halfprin) 81 mg DAILY PO Last administered on 12/16/16 08:43; Admin Dose 81 MG; Start 12/11/16 at 09:00 Atorvastatin Calcium (Lipitor) 20 mg HS PO Last administered on 12/15/16 20:25 ; Admin Dose 20 MG; Start 12/10/16 at 21:00 Duloxetine HCl (Cymbalta) 20 mg DAILY PO Last administered on 12/16/16 08:43; Admin Dose 20 MG; Start 12/11/16 at 09:00 Gabapentin (Neurontin) 300 mg TID PO Last administered on 12/16/16 13:12; Admin Dose 300 MG; Start 12/10/16 at 21:00 Metoprolol Tartrate (Lopressor) 12.5 mg BID PO Last administered on 12/15/16 08 :34; Admin Dose 12.5 MG; Start 12/10/16 at 21:00 Ticagrelor (Brilinta) 90 mg BID PO Last administered on 12/16/16 08:45; Admin Dose 90 MG; Start 12/10/16 at 21:00 Levothyroxine Sodium (Synthroid) 112 mcg DAILY@06 PO Last administered on 05:08; Admin Dose 112 MCG; Start 12/11/16 at 06:00 Insulin Aspart (Novolog Insulin Pen) NOVOLOG *MODERATE* ALGORI... Q4 SC Last administered on 12/17/16 00:49; Admin Dose 6 UNIT; Start 12/10/16 at 21:00 Miscellaneous Information 1 ea NOTE XX ; Start 12/10/16 at 18:30 Glucose (Glutose) 15 gm Q15M PRN PO DECREASED GLUCOSE; Start 12/10/16 at 18:30 Glucose (Glutose) 22.5 gm Q15M PRN PO DECREASED GLUCOSE; Start 12/10/16 at 18: 30 Dextrose (D50w Syringe) 25 ml Q15M PRN IV DECREASED GLUCOSE Last administered on 12/13/16 13:10; Admin Dose 25 ML; Start 12/10/16 at 18:30 Dextrose (D50w Syringe) 50 ml Q15M PRN IV DECREASED GLUCOSE; Start 12/10/16 at 18:30 Glucagon (Glucagen) 1 mg Q15M PRN IM DECREASED GLUCOSE; Start 12/10/16 at 18:30 Glucose (Glutose) 15 gm Q15M PRN BUCCAL DECREASED GLUCOSE; Start 12/10/16 at 18 :30 Acetaminophen 650 mg 650 mg Q6H PRN NGT PAIN AND OR ELEVATED TEMP Last administered on 12/15/16 20:25; Admin Dose 650 MG; Start 12/10/16 at 21:00 Norepinephrine/ Dextrose (Levophed/D5W) 500 ml @ 1.87 mls/hr TITRATE IV Last administered on 12/11/16 00:20; Admin Dose 3.75 MLS/HR; Start 12/10/16 at 23:30 Acetaminophen (Tylenol Tab) 650 mg Q4H PRN PO NON-CARDIAC PAIN LEVEL (1-3); Start 12/11/16 at 13:00 Morphine Sulfate (morphine) 2 mg Q2H PRN IV FOR NON CARDIAC PAIN (4-10) Last administered on 12/15/16 10:33; Admin Dose 2 MG; Start 12/11/16 at 13:00 Al Hydrox/Mg Hydrox/Simethicone (Mag-Al Plus) 30 ml Q4H PRN PO GASTROINTESTINAL UPSET; Start 12/11/16 at 13:00 Ondansetron HCl 4 mg 4 mg Q4H PRN IV NAUSEA AND/OR VOMITING; Start 12/11/16 at 13:00 Fluconazole/ Sodium Chloride (Diflucan 100 Mg/ NS (Pmx)) 50 ml @ 50 mls/hr Q24H IVPB Last administered on 12/16/16 12:24; Admin Dose 50 MLS/HR; Start 12/13/16 at 12:00 Metoclopramide HCl (Reglan Liq) 10 mg Q8 PO Last administered on 12/16/16 13:11 ; Admin Dose 10 MG; Start 12/15/16 at 22:00 Senna/Docusate Sodium (Senokot-S) 2 tab HS NGT Last administered on 12/15/16 20 :25; Admin Dose 2 TAB; Start 12/15/16 at 21:00 Insulin Glargine (Lantus) 15 unit DAILY@20 SC Last administered on 12/16/16 20: 46; Admin Dose 15 UNIT; Start 12/16/16 at 20:00 Assessment/Plan Chief Complaint/Hosp Course IMP: 1. s/p NSTEMI 2. Resp Failure--due to pulm edema now extubated on BiPAP 3. AMS-resolved likely toxic metabolic encephalopathy 4. Anemia 5. Hypokalemia RECS: 1. More aggressive diuresis 2. Continue BiPAP as needed 3. Hold all sedation 4. Am labs/CXR 5. Adequate pain control. 6. DVT and GI prophylaxis Transfer to telemetry okay from pulmonary standpoint if stable off BiPAP 35 min cc time Problems: STEFANI GONZALES MD, [facility] Dec 17, 2016 10:58
[2016-12-17] MEDS ORDERED: FUROSEMIDE 40 MG INJ IV ONE (12:00)
[2016-12-17] MEDS: FLUCONAZOLE 100 MG/NS (PMX) 50 ML IVPB SCH (13:00)
--- NOTE | 2016-12-17 13:14 | CONS ---
Date/Time of Note Date/Time of Note DATE: 12/17/16 TIME: 13:09 Assessment/Plan Assessment/Plan Chief Complaint/Hosp Course IMP: 1.NSTEMI-peak trop>60 Now dowtrending. s/p LHC with patent RCA stents and high grade disease of LAD/LCX with small caliber vessels 2.cardiomyopathy-LVEF 40-45 BY OSH echo. 25% by echo read here 3.Hypotension-currently off of pressors 4.resp failure s/p intubation 5.anemia 6. AMS Recc: -Tele -Follow BP closely and continue low dose BB as tolerated only -Will start low dose ACEI afterload reduction as tolerated -Continue asa/brilinta -Continue statin -Follow volume status closely and continue lasix diuresis -Smoking cessation -Follow BS closely -CT surgical eval ongoing Problems: Consultation Date/Type/Reason Admit Date/Time Dec 10, 2016 at 16:55 Initial Consult Date 12/12/16 Type of Consultation: cardiology Reason for Consultation Nstemi/CHF Referring Provider: ROBEL PETTY MD Exam/Review of Systems Vital Signs Vitals Vital Signs Date Time Temp Pulse Resp B/P Pulse Ox O2 Delivery O2 Flow Rate FiO2 12/17/16 12:02 100 96 40 12/17/16 12:00 22 105/48 BIPAP 12/17/16 11:00 10.0 12/17/16 08:00 98.5 Intake and Output 12/16/16 12/16/16 12/17/16 15:00 23:00 07:00 Intake Total 485.62 ml 77.5 ml 99.0 ml Output Total 870 ml 1410 ml 185 ml Balance -384.38 ml -1332.5 ml -86.0 ml Exam Review of Systems: CONSTITUTIONAL: No fevers, chills. PULMONARY: ON BIPAP CARDIOVASCULAR: No chest pain GASTROINTESTINAL: No nausea/vomiting. GENITOURINARY: No hematuria/dysuria. MUSCULOSKELETAL: No myagias/arthalgias. PSYCHIATRIC: No documented depression. NEUROLOGIC: lethargic Constitutional: alert Psych: no complaints ENMT: other (BIPAP in place) Neck: jvd (9 cm water), supple Respiratory: diminished breath sounds (at bases/B) Cardiovascular: regular rate and rhythm Gastrointestinal: soft Musculoskeletal: muscle tone Extremities: edema (trace/B), normal pulses 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: lethargic Results Result Diagram: 12/17/16 0440 12/17/16 0440 Results 24 hrs Laboratory Tests Test 12/16/16 14:30 12/16/16 16:25 12/16/16 17:13 12/16/16 19:44 Potassium Level 4.9 Activated Partial Thromboplast Time 156.0 *H Bedside Glucose 259 H Blood Gas Specimen Source Blood arterial Arterial Blood Date Drawn 12/16/2016 8:22:00 PM Arterial Blood pH (Temp corrected) 7.250 *L Arterial Blood pCO2 (Temp correct) 86.8 *H Arterial Blood pO2 (Temp corrected) 69.8 L Arterial Blood HCO3 37.2 H Arterial Blood Base Excess 6.7 H Arterial Blood Oxygen Saturation 90.5 L Miguel Test N/A Arterial Blood Gas Puncture Site LB Arterial Blood Carboxyhemoglobin 0.3 Arterial Blood Methemoglobin 0.4 Blood Gas A-a O2 Differential 556.4 H Oxyhemoglobin Percent 89.9 L Total Hemoglobin 13.8 Blood Gas Temperature 37.0 Blood Gas Modality NON-REBREATHING MASK FiO2 100.0 Blood Gas Critical Value Read Back Annita GARCÍA RN Blood Gas Notified Whom BT Blood Gas Notified Time 12/16/2016 8:36:00 PM Test 12/16/16 20:38 12/16/16 22:05 12/16/16 23:00 12/17/16 00:42 Bedside Glucose 205 225 H Activated Partial Thromboplast Time 46.2 H Blood Gas Specimen Source Blood arterial Arterial Blood Date Drawn 12/16/2016 11:00:38 PM Arterial Blood pH (Temp corrected) 7.455 H Arterial Blood pCO2 (Temp correct) 47.9 H Arterial Blood pO2 (Temp corrected) 150.3 H Arterial Blood HCO3 32.9 H Arterial Blood Base Excess 7.9 H Arterial Blood Oxygen Saturation 98.6 H Miguel Test N/A Arterial Blood Gas Puncture Site LB Arterial Blood Carboxyhemoglobin 0.3 Arterial Blood Methemoglobin 0.3 Blood Gas A-a O2 Differential 297.3 H Oxyhemoglobin Percent 98.0 Total Hemoglobin 12.2 Blood Gas Temperature 37.0 Blood Gas Respiration Rate 20.0 Blood Gas Modality BCPAP FiO2 70.0 Blood Gas Pressure Support 14 Blood Gas IPAP/EPAP Ratio 20/6 Blood Gas Critical Value Read Back Mohini GARCÍA RN Blood Gas Notified Whom BT Blood Gas Notified Time 12/16/2016 11:10:12 PM Test 12/17/16 04:40 12/17/16 05:40 12/17/16 08:15 12/17/16 12:15 White Blood Count 12.5 H Red Blood Count 3.38 L Hemoglobin 10.1 L Hematocrit 32.1 L Mean Corpuscular Volume 95.0 Mean Corpuscular Hemoglobin 29.9 Mean Corpuscular Hemoglobin Concent 31.5 L Red Cell Distribution Width 13.2 Platelet Count 395 # Mean Platelet Volume 10.7 H Neutrophils % 78.5 H Lymphocytes % 8.9 L Monocytes % 10.5 Eosinophils % 1.0 Basophils % 0.2 Nucleated Red Blood Cells % 0.0 Neutrophils # 9.8 H Lymphocytes # 1.1 Monocytes # 1.3 H Eosinophils # 0.1 Basophils # 0.0 Nucleated Red Blood Cells # 0.0 Activated Partial Thromboplast Time 92.5 *H 54.0 H Sodium Level 143 Potassium Level 3.6 Chloride Level 98 Carbon Dioxide Level 39 H Anion Gap 10 Blood Urea Nitrogen 21 H Creatinine 0.52 Glucose Level 105 Calcium Level 8.9 Phosphorus Level 3.0 Magnesium Level 1.7 Bedside Glucose 97 96 Medications Medications Current Medications Famotidine (Pepcid) 20 mg Q12 PO Last administered on 12/16/16 08:43; Admin Dose 20 MG; Start 12/10/16 at 21:00 Aspirin (Halfprin) 81 mg DAILY PO Last administered on 12/16/16 08:43; Admin Dose 81 MG; Start 12/11/16 at 09:00 Atorvastatin Calcium (Lipitor) 20 mg HS PO Last administered on 12/15/16 20:25 ; Admin Dose 20 MG; Start 12/10/16 at 21:00 Duloxetine HCl (Cymbalta) 20 mg DAILY PO Last administered on 12/16/16 08:43; Admin Dose 20 MG; Start 12/11/16 at 09:00 Gabapentin (Neurontin) 300 mg TID PO Last administered on 12/16/16 13:12; Admin Dose 300 MG; Start 12/10/16 at 21:00 Metoprolol Tartrate (Lopressor) 12.5 mg BID PO Last administered on 12/15/16 08 :34; Admin Dose 12.5 MG; Start 12/10/16 at 21:00 Ticagrelor (Brilinta) 90 mg BID PO Last administered on 12/16/16 08:45; Admin Dose 90 MG; Start 12/10/16 at 21:00 Levothyroxine Sodium (Synthroid) 112 mcg DAILY@06 PO Last administered on 05:08; Admin Dose 112 MCG; Start 12/11/16 at 06:00 Insulin Aspart (Novolog Insulin Pen) NOVOLOG *MODERATE* ALGORI... Q4 SC Last administered on 12/17/16 00:49; Admin Dose 6 UNIT; Start 12/10/16 at 21:00 Miscellaneous Information 1 ea NOTE XX ; Start 12/10/16 at 18:30 Glucose (Glutose) 15 gm Q15M PRN PO DECREASED GLUCOSE; Start 12/10/16 at 18:30 Glucose (Glutose) 22.5 gm Q15M PRN PO DECREASED GLUCOSE; Start 12/10/16 at 18: 30 Dextrose (D50w Syringe) 25 ml Q15M PRN IV DECREASED GLUCOSE Last administered on 12/13/16 13:10; Admin Dose 25 ML; Start 12/10/16 at 18:30 Dextrose (D50w Syringe) 50 ml Q15M PRN IV DECREASED GLUCOSE; Start 12/10/16 at 18:30 Glucagon (Glucagen) 1 mg Q15M PRN IM DECREASED GLUCOSE; Start 12/10/16 at 18:30 Glucose (Glutose) 15 gm Q15M PRN BUCCAL DECREASED GLUCOSE; Start 12/10/16 at 18 :30 Acetaminophen 650 mg 650 mg Q6H PRN NGT PAIN AND OR ELEVATED TEMP Last administered on 12/15/16 20:25; Admin Dose 650 MG; Start 12/10/16 at 21:00 Norepinephrine/ Dextrose (Levophed/D5W) 500 ml @ 1.87 mls/hr TITRATE IV Last administered on 12/11/16 00:20; Admin Dose 3.75 MLS/HR; Start 12/10/16 at 23:30 Acetaminophen (Tylenol Tab) 650 mg Q4H PRN PO NON-CARDIAC PAIN LEVEL (1-3); Start 12/11/16 at 13:00 Morphine Sulfate (morphine) 2 mg Q2H PRN IV FOR NON CARDIAC PAIN (4-10) Last administered on 12/15/16 10:33; Admin Dose 2 MG; Start 12/11/16 at 13:00 Al Hydrox/Mg Hydrox/Simethicone (Mag-Al Plus) 30 ml Q4H PRN PO GASTROINTESTINAL UPSET; Start 12/11/16 at 13:00 Ondansetron HCl 4 mg 4 mg Q4H PRN IV NAUSEA AND/OR VOMITING; Start 12/11/16 at 13:00 Fluconazole/ Sodium Chloride (Diflucan 100 Mg/ NS (Pmx)) 50 ml @ 50 mls/hr Q24H IVPB Last administered on 12/17/16 13:00; Admin Dose 50 MLS/HR; Start 12/13/16 at 12:00 Metoclopramide HCl (Reglan Liq) 10 mg Q8 PO Last administered on 12/16/16 13:11 ; Admin Dose 10 MG; Start 12/15/16 at 22:00 Senna/Docusate Sodium (Senokot-S) 2 tab HS NGT Last administered on 12/15/16 20 :25; Admin Dose 2 TAB; Start 12/15/16 at 21:00 Insulin Glargine (Lantus) 15 unit DAILY@20 SC Last administered on 12/16/16 20: 46; Admin Dose 15 UNIT; Start 12/16/16 at 20:00 RHONDA PENA Dec 17, 2016 13:14
[2016-12-17 14:32] LABS: AADO2 Arterial 144.1 mmHg (7.0-24.0); Allen Test ACCEPTAB; Arterial Base Excess 12.4 mmol/L (-3.0-3); Arterial COHb 0.3 % (0.0-3.0); Arterial HCO3 37.5 mmol/L (22.0-26.0); Arterial MetHb 0.2 % (0.0-1.5); Arterial Total Hemglobin 13.1 g/dl (12.0-18.0); Blood Gas IEPAP 20/6; MODE MASK - BIPAP
--- NOTE | 2016-12-17 17:34 | PN ---
Date/Time of Note Date/Time of Note DATE: 12/17/16 TIME: 17:32 Assessment/Plan VTE Prophylaxis VTE Prophylaxis Intervention: LMWH Lines/Catheters IV Catheter Type (from Nrs): PICC Line Central line still needed: Yes (IV access) Urinary Cath still in place: Yes Reason Cath still needed: skin wounds contaminated by urine Assessment/Plan Chief Complaint/Hosp Course S: 12/15 failed extubation/CPAP trial today. High residuals with tube feeds yesterday. 12/16 events noted. Hypoglycemia noted. 12/17 required BiPAP but stable. O: Vital signs stable PE No pallor/JVD. Reg, no m/r/g Diminished bs bilaterally. Bs dimin, nt nd, no RR G No edema Assessment and plan 1. Acute respiratory failure, stable cont supplemental oxygen. Extubated. Once off BiPAP transfer to telemetry. 2. NSTEMI. Sp cath -s/p LHC w patent RCA stents and high grade disease of LAD/ LCX w small caliber vessels. CABG if stable. 3. Ischemic cmy EF 25%. Cont medical management. 4. DKA resolved. 4. Chr type 2 DM; a1c= 9.1 6. Chr hypothyroidism 7. Tobacco abuse; offer patch 7. Deconditioning; PT may need snf. 9. Nephrolithiasis; cholelithiasis 10. Lice 11. Fungal cystitis Problems: Exam/Review of Systems Vital Signs Vitals Vital Signs Date Time Temp Pulse Resp B/P Pulse Ox O2 Delivery O2 Flow Rate FiO2 12/17/16 15:45 102 98 40 12/17/16 15:00 20 94/50 BIPAP 12/17/16 12:00 98.5 12/17/16 11:00 10.0 Intake and Output 12/16/16 12/16/16 12/17/16 15:00 23:00 07:00 Intake Total 485.62 ml 77.5 ml 99.0 ml Output Total 870 ml 1410 ml 185 ml Balance -384.38 ml -1332.5 ml -86.0 ml Results Result Diagram: 12/17/160 12/17/160 Results 24 hrs Laboratory Tests Test 12/16/16 19:44 12/16/16 20:38 12/16/16 22:05 12/16/16 23:00 Blood Gas Specimen Source Blood arterial Blood arterial Arterial Blood Date Drawn 12/16/2016 8:22:00 PM 12/16/2016 11:00:38 PM Arterial Blood pH (Temp corrected) 7.250 *L 7.455 H Arterial Blood pCO2 (Temp correct) 86.8 *H 47.9 H Arterial Blood pO2 (Temp corrected) 69.8 L 150.3 H Arterial Blood HCO3 37.2 H 32.9 H Arterial Blood Base Excess 6.7 H 7.9 H Arterial Blood Oxygen Saturation 90.5 L 98.6 H Miguel Test N/A N/A Arterial Blood Gas Puncture Site LB LB Arterial Blood Carboxyhemoglobin 0.3 0.3 Arterial Blood Methemoglobin 0.4 0.3 Blood Gas A-a O2 Differential 556.4 H 297.3 H Oxyhemoglobin Percent 89.9 L 98.0 Total Hemoglobin 13.8 12.2 Blood Gas Temperature 37.0 37.0 Blood Gas Modality NON-REBREATHING MASK BCPAP FiO2 100.0 70.0 Blood Gas Critical Value Read Back Annita GARCÍA RN, M RN Blood Gas Notified Whom BT BT Blood Gas Notified Time 12/16/2016 8:36:00 PM 12/16/2016 11:10:12 PM Bedside Glucose 205 Activated Partial Thromboplast Time 46.2 H Blood Gas Respiration Rate 20.0 Blood Gas Pressure Support 14 Blood Gas IPAP/EPAP Ratio 20/6 Test 12/17/16 00:42 12/17/16 04:40 12/17/16 05:40 12/17/16 08:15 Bedside Glucose 225 H 97 96 White Blood Count 12.5 H Red Blood Count 3.38 L Hemoglobin 10.1 L Hematocrit 32.1 L Mean Corpuscular Volume 95.0 Mean Corpuscular Hemoglobin 29.9 Mean Corpuscular Hemoglobin Concent 31.5 L Red Cell Distribution Width 13.2 Platelet Count 395 # Mean Platelet Volume 10.7 H Neutrophils % 78.5 H Lymphocytes % 8.9 L Monocytes % 10.5 Eosinophils % 1.0 Basophils % 0.2 Nucleated Red Blood Cells % 0.0 Neutrophils # 9.8 H Lymphocytes # 1.1 Monocytes # 1.3 H Eosinophils # 0.1 Basophils # 0.0 Nucleated Red Blood Cells # 0.0 Activated Partial Thromboplast Time 92.5 *H Sodium Level 143 Potassium Level 3.6 Chloride Level 98 Carbon Dioxide Level 39 H Anion Gap 10 Blood Urea Nitrogen 21 H Creatinine 0.52 Glucose Level 105 Calcium Level 8.9 Phosphorus Level 3.0 Magnesium Level 1.7 Test 12/17/16 12:15 12/17/16 14:00 12/17/16 14:10 12/17/16 14:56 Activated Partial Thromboplast Time 54.0 H Blood Gas Specimen Source Blood arterial Arterial Blood Date Drawn 12/17/2016 2:20:22 PM Arterial Blood pH (Temp corrected) 7.493 H Arterial Blood pCO2 (Temp correct) 50.0 H Arterial Blood pO2 (Temp corrected) 83.6 Arterial Blood HCO3 37.5 H Arterial Blood Base Excess 12.4 H Arterial Blood Oxygen Saturation 96.5 Miguel Test ACCEPTAB Arterial Blood Gas Puncture Site Left Radial Arterial Blood Carboxyhemoglobin 0.3 Arterial Blood Methemoglobin 0.2 Blood Gas A-a O2 Differential 144.1 H Oxyhemoglobin Percent 96.0 Total Hemoglobin 13.1 Blood Gas Temperature 37.0 Blood Gas Respiration Rate 20.0 Blood Gas Actual Respiration Rate 22 Blood Gas Modality MASK - BIPAP FiO2 40.0 Blood Gas IPAP/EPAP Ratio 206 Blood Gas Notified Whom KB Blood Gas Notified Time 12/17/2016 2:32:16 PM Troponin I 0.358 *H Bedside Glucose 119 Test 12/17/16 16:35 Bedside Glucose 134 Medications Medications Current Medications Famotidine (Pepcid) 20 mg Q12 PO Last administered on 12/16/16 08:43; Admin Dose 20 MG; Start 12/10/16 at 21:00 Aspirin (Halfprin) 81 mg DAILY PO Last administered on 12/16/16 08:43; Admin Dose 81 MG; Start 12/11/16 at 09:00 Atorvastatin Calcium (Lipitor) 20 mg HS PO Last administered on 12/15/16 20:25 ; Admin Dose 20 MG; Start 12/10/16 at 21:00 Duloxetine HCl (Cymbalta) 20 mg DAILY PO Last administered on 12/16/16 08:43; Admin Dose 20 MG; Start 12/11/16 at 09:00 Gabapentin (Neurontin) 300 mg TID PO Last administered on 12/16/16 13:12; Admin Dose 300 MG; Start 12/10/16 at 21:00 Metoprolol Tartrate (Lopressor) 12.5 mg BID PO Last administered on 12/15/16 08 :34; Admin Dose 12.5 MG; Start 12/10/16 at 21:00 Ticagrelor (Brilinta) 90 mg BID PO Last administered on 12/17/16 14:57; Admin Dose 90 MG; Start 12/10/16 at 21:00 Levothyroxine Sodium (Synthroid) 112 mcg DAILY@06 PO Last administered on 05:08; Admin Dose 112 MCG; Start 12/11/16 at 06:00 Insulin Aspart (Novolog Insulin Pen) NOVOLOG *MODERATE* ALGORI... Q4 SC Last administered on 12/17/16 00:49; Admin Dose 6 UNIT; Start 12/10/16 at 21:00 Miscellaneous Information 1 ea NOTE XX ; Start 12/10/16 at 18:30 Glucose (Glutose) 15 gm Q15M PRN PO DECREASED GLUCOSE; Start 12/10/16 at 18:30 Glucose (Glutose) 22.5 gm Q15M PRN PO DECREASED GLUCOSE; Start 12/10/16 at 18: 30 Dextrose (D50w Syringe) 25 ml Q15M PRN IV DECREASED GLUCOSE Last administered on 12/13/16 13:10; Admin Dose 25 ML; Start 12/10/16 at 18:30 Dextrose (D50w Syringe) 50 ml Q15M PRN IV DECREASED GLUCOSE; Start 12/10/16 at 18:30 Glucagon (Glucagen) 1 mg Q15M PRN IM DECREASED GLUCOSE; Start 12/10/16 at 18:30 Glucose (Glutose) 15 gm Q15M PRN BUCCAL DECREASED GLUCOSE; Start 12/10/16 at 18 :30 Acetaminophen 650 mg 650 mg Q6H PRN NGT PAIN AND OR ELEVATED TEMP Last administered on 12/15/16 20:25; Admin Dose 650 MG; Start 12/10/16 at 21:00 Norepinephrine/ Dextrose (Levophed/D5W) 500 ml @ 1.87 mls/hr TITRATE IV Last administered on 12/11/16 00:20; Admin Dose 3.75 MLS/HR; Start 12/10/16 at 23:30 Acetaminophen (Tylenol Tab) 650 mg Q4H PRN PO NON-CARDIAC PAIN LEVEL (1-3); Start 12/11/16 at 13:00 Morphine Sulfate (morphine) 2 mg Q2H PRN IV FOR NON CARDIAC PAIN (4-10) Last administered on 12/15/16 10:33; Admin Dose 2 MG; Start 12/11/16 at 13:00 Al Hydrox/Mg Hydrox/Simethicone (Mag-Al Plus) 30 ml Q4H PRN PO GASTROINTESTINAL UPSET; Start 12/11/16 at 13:00 Ondansetron HCl 4 mg 4 mg Q4H PRN IV NAUSEA AND/OR VOMITING; Start 12/11/16 at 13:00 Fluconazole/ Sodium Chloride (Diflucan 100 Mg/ NS (Pmx)) 50 ml @ 50 mls/hr Q24H IVPB Last administered on 12/17/16 13:00; Admin Dose 50 MLS/HR; Start 12/13/16 at 12:00 Metoclopramide HCl (Reglan Liq) 10 mg Q8 PO Last administered on 12/16/16 13:11 ; Admin Dose 10 MG; Start 12/15/16 at 22:00 Senna/Docusate Sodium (Senokot-S) 2 tab HS NGT Last administered on 12/15/16 20 :25; Admin Dose 2 TAB; Start 12/15/16 at 21:00 Insulin Glargine (Lantus) 15 unit DAILY@20 SC Last administered on 12/16/16 20: 46; Admin Dose 15 UNIT; Start 12/16/16 at 20:00 Lisinopril (Zestril) 2.5 mg DAILY PO ; Start 12/18/16 at 09:00 Heparin Sodium (Porcine) (Heparin (5000 Units/0.5 ml)) 5,000 unit BID SC ; Start 12/17/16 at 21:00 REJI HUDSON MD Dec 17, 2016 17:33
--- NOTE | 2016-12-17 18:15 | PN ---
Date/Time of Note Date/Time of Note DATE: 12/17/16 TIME: 18:01 Assessment/Plan Lines/Catheters IV Catheter Type (from Nrsg): PICC Line Mccray in Place (from Nrsg): Yes Assessment/Plan Chief Complaint/Hosp Course CAD, status post non-ST elevation GA History of lice Cardiomyopathy with ejection fraction 25% Respiratory failure Patient is not a candidate to undergo coronary artery bypass grafting at this time Still on BIPAP FiO2 of 40% Would continue medical management Diuretics Plan for possible coronary artery bypass grafting when medically more stable Problems: Subjective 24 Hr Interval Summary Pain Control: mild Exam/Review of Systems Vital Signs Vitals Vital Signs Date Time Temp Pulse Resp B/P Pulse Ox O2 Delivery O2 Flow Rate FiO2 12/17/16 16:00 108 12/17/16 15:45 98 40 12/17/16 15:00 20 94/50 BIPAP 12/17/16 12:00 98.5 12/17/16 11:00 10.0 Intake and Output 12/16/16 12/16/16 12/17/16 15:00 23:00 07:00 Intake Total 485.62 ml 77.5 ml 99.0 ml Output Total 870 ml 1410 ml 185 ml Balance -384.38 ml -1332.5 ml -86.0 ml Exam ENMT: mucosa pink and moist, nl external ears & nose, nl lips & teeth, nl nasal mucosa & septum Neck: non-tender, supple Respiratory: clear to auscultation, normal air movement Cardiovascular: nl pulses, regular rate and rhythm Gastrointestinal: nl liver, spleen, non-tender, soft Results Result Diagram: 12/17/1643912/17/16439 CHELA ALVARENGA MD Dec 17, 2016 18:11
[2016-12-17] MEDS: FUROSEMIDE 40 MG INJ IV SCH (18:44)
[2016-12-17] MEDS: SENNA/DOCUSATE NA (8.6MG/50MG) TAB NGT SCH (20:32)
[2016-12-17] MEDS: ATORVASTATIN 20 MG TAB PO SCH (20:33)
[2016-12-17] MEDS: INSULIN GLARGINE [LANtus] 3 ML PEN SC SCH (20:42)
[2016-12-17] MEDS: HEPARIN 5,000 UNIT/0.5 ML VIAL SC SCH (20:42)
[2016-12-18] VITALS (30 sets, daily range): BP systolic 90–121; BP diastolic 37–67; PULSE 100–122; RESP 14–34
[2016-12-18] MEDS: INSULIN ASPART [NOVOLOG] 3 ML PEN SC SCH ×6 (01:55→20:56)
[2016-12-18] MEDS: ALBUTEROL/IPRATROPIUM (NEB) 3 ML AMP HHN SCH ×4 (02:27→19:23)
[2016-12-18] MEDS: FUROSEMIDE 40 MG INJ IV SCH ×2 (05:36→18:00)
[2016-12-18 05:45] LABS: ADD SCAN DIFF NO
[2016-12-18 05:55] LABS: BASOPHIL # 0.1 10^3/ul (0.0-0.1); BASOPHILS % 0.5 % (0.0-2.0); EOSINOPHILS # 0.3 10^3/ul (0.0-0.5); EOSINOPHILS % 2.1 % (0.0-7.0); HEMATOCRIT 36.5 % (37.0-47.0); HEMOGLOBIN 11.6 g/dl (12.0-16.0); LYMPHOCYTES # 1.3 10^3/ul (0.8-2.9); LYMPHOCYTES % 8.9 % (15.0-51.0); MEAN CORPUSCULAR HEMOGLOBIN 30.2 pg (29.0-33.0); MEAN CORPUSCULAR HGB CONC 31.8 g/dl (32.0-37.0); MEAN CORPUSCULAR VOLUME 95.1 fl (82.0-101.0); MEAN PLATELET VOLUME 10.8 fl (7.4-10.4); MONOCYTE # 1.5 10^3/ul (0.3-0.9); MONOCYTES % 10.3 % (0.0-11.0); NEUTROPHILS % 77.4 % (39.0-77.0); PLATELET COUNT 517 10^3/UL (140-415); RED BLOOD COUNT 3.84 10^6/ul (4.20-5.40); RED CELL DISTRIBUTION WIDTH 13.2 % (11.5-14.5); WHITE BLOOD COUNT 14.2 10^3/ul (4.8-10.8)
[2016-12-18] MEDS: LEVOTHYROXINE 112 MCG TAB PO SCH (06:00)
[2016-12-18 06:51] LABS: CALCIUM 9.5 mg/dl (8.4-10.2); CREATININE 0.53 mg/dl (0.44-1.00); MAGNESIUM 1.9 mg/dl (1.7-2.5); PHOSPHORUS 2.8 mg/dl (2.5-4.9); POTASSIUM 3.2 mmol/L (3.5-5.1)
[2016-12-18 07:12] LABS: AADO2 Arterial 316.7 mmHg (7.0-24.0); Allen Test ACCEPTAB; Arterial Base Excess 8.1 mmol/L (-3.0-3); Arterial COHb 0.1 % (0.0-3.0); Arterial Fraction of Oxyhgb 94.3 % (93.0-99.0); Arterial HCO3 32.4 mmol/L (22.0-26.0); Arterial MetHb 0.2 % (0.0-1.5); Arterial Total Hemglobin 12.5 g/dl (12.0-18.0); MODE MASK - SIMPLE
[2016-12-18 07:12] LABS: AADO2 Arterial 211.1 mmHg (7.0-24.0); Allen Test ACCEPTAB; Arterial Base Excess 11.4 mmol/L (-3.0-3); Arterial COHb 0.2 % (0.0-3.0); Arterial Fraction of Oxyhgb 93.7 % (93.0-99.0); Arterial HCO3 34.5 mmol/L (22.0-26.0); Arterial MetHb 0.1 % (0.0-1.5); Arterial Total Hemglobin 12.7 g/dl (12.0-18.0); MODE MASK - SIMPLE
--- NOTE | 2016-12-18 08:01 | RADRPT ---
PROCEDURE: XR Chest 1 View. CLINICAL INDICATION: Shortness of breath. TECHNIQUE: AP view of the chest was obtained. COMPARISON: December 17, 2016 FINDINGS: The cardiomediastinal silhouette is within normal limits. Right PICC line is stable and appears in g rossly appropriate location. Diffuse interstitial prominence in both lungs is unchanged. Superimpo sed patchy alveolar infiltrates in the left upper lobe are stable. Patchy infiltrates in the right lower lobe have mildly increased. The lungs are hypoinflated. The osseous structures are unchanged. IMPRESSION: Stable diffuse interstitial prominence in both lungs. Interval increase in patchy right lower lobe infiltrates. Stable mild patchy alveolar infiltrates in the left upper lobe. Hypoinflated lungs. RPTAT: AA .Vineet Pérez MD, MD Date Time Electronically viewed and signed by .Vineet Pérez MD, on 12/18/2016 08:01 .P/
[2016-12-18] MEDS: HEPARIN 5,000 UNIT/0.5 ML VIAL SC SCH ×2 (09:08→20:52)
[2016-12-18] MEDS ORDERED: POTASSIUM CHLORIDE 250 ML IVPB ONE (10:00)
[2016-12-18] MEDS: GABAPENTIN 300 MG CAP PO SCH ×3 (10:19→20:59)
[2016-12-18] MEDS: DULOXETINE 20 MG CAP DR PO SCH (10:19)
[2016-12-18] MEDS: METOPROLOL 25 MG TAB PO SCH ×2 (10:20→20:39)
[2016-12-18] MEDS: ASPIRIN (EC) 81 MG TAB PO SCH (10:20)
[2016-12-18] MEDS: TICAGRELOR 90 MG TABLET PO SCH ×2 (10:22→20:51)
[2016-12-18] MEDS: LISINOPRIL 5 MG TAB PO SCH (10:26)
--- NOTE | 2016-12-18 10:56 | CONS ---
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 25% by echo read here 3.Hypotension-mimproved off of pressors 4.resp failure s/p extubation with PRN bipap 5.anemia 6. AMS/encephalopathy Recc: -Tele -Follow BP closely and continue low dose BB as tolerated only -Continnue low dose ACEI afterload reduction -Continue asa/brilinta -Continue statin -Follow volume status closely and continue lasix diuresis -Smoking cessation -Follow BS closely -CT surgical eval ongoing and will discuss with daughter Problems: Consultation Date/Type/Reason Admit Date/Time Dec 10, 2016 at 16:55 Initial Consult Date 12/12/16 Type of Consultation: cardiology Reason for Consultation Nstemi Referring Provider: ROBEL PETTY MD Exam/Review of Systems Vital Signs Vitals Vital Signs Date Time Temp Pulse Resp B/P Pulse Ox O2 Delivery O2 Flow Rate FiO2 12/18/16 07:15 98 4.0 12/18/16 07:15 98 25 Nasal Cannula 12/18/16 07:00 118/55 12/18/16 04:00 98.0 12/17/16 21:26 40 Intake and Output 12/17/16 12/17/16 12/18/16 15:00 23:00 07:00 Intake Total 134 ml Output Total 1150 ml 830 ml 75 ml Balance -1016 ml -830 ml -75 ml Exam Review of Systems: CONSTITUTIONAL: No fevers, chills. PULMONARY: mild sob CARDIOVASCULAR: No chest pain/palpitations GASTROINTESTINAL: No nausea/vomiting. GENITOURINARY: No hematuria/dysuria. MUSCULOSKELETAL: No obvious myagias/arthalgias. PSYCHIATRIC: The patient denies depression. NEUROLOGIC: lethargic/confused Constitutional: alert Psych: confusion Head: normocephalic ENMT: mucosa pink and moist Neck: jvd (9 cm water), supple Respiratory: diminished breath sounds (at bases/B) Cardiovascular: murmurs/extra sounds, other (tachycardic, regular rhythm) Gastrointestinal: non-tender, soft Musculoskeletal: muscle weakness (generalized) Extremities: edema (none) 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: confused, lethargic Results Result Diagram: 12/18/16 0500 12/18/16 0500 Results 24 hrs Laboratory Tests Test 12/17/16 12:15 12/17/16 14:00 12/17/16 14:10 12/17/16 14:56 Activated Partial Thromboplast Time 54.0 H Blood Gas Specimen Source Blood arterial Arterial Blood Date Drawn 12/17/2016 2:20:22 PM Arterial Blood pH (Temp corrected) 7.493 H Arterial Blood pCO2 (Temp correct) 50.0 H Arterial Blood pO2 (Temp corrected) 83.6 Arterial Blood HCO3 37.5 H Arterial Blood Base Excess 12.4 H Arterial Blood Oxygen Saturation 96.5 Miguel Test ACCEPTAB Arterial Blood Gas Puncture Site Left Radial Arterial Blood Carboxyhemoglobin 0.3 Arterial Blood Methemoglobin 0.2 Blood Gas A-a O2 Differential 144.1 H Oxyhemoglobin Percent 96.0 Total Hemoglobin 13.1 Blood Gas Temperature 37.0 Blood Gas Respiration Rate 20.0 Blood Gas Actual Respiration Rate 22 Blood Gas Modality MASK - BIPAP FiO2 40.0 Blood Gas IPAP/EPAP Ratio 02/12 Blood Gas Notified Whom KB Blood Gas Notified Time 12/17/2016 2:32:16 PM Troponin I 0.358 *H Bedside Glucose 119 Test 12/17/16 16:35 12/17/16 20:35 12/17/16 23:55 12/18/16 02:01 Bedside Glucose 134 175 220 Blood Gas Specimen Source Blood arterial Arterial Blood Date Drawn 12/18/2016 12:15:34 AM Arterial Blood pH (Temp corrected) 7.561 *H Arterial Blood pCO2 (Temp correct) 39.3 Arterial Blood pO2 (Temp corrected) 65.1 L Arterial Blood HCO3 34.5 H Arterial Blood Base Excess 11.4 H Arterial Blood Oxygen Saturation 94.0 L Miguel Test ACCEPTAB Arterial Blood Gas Puncture Site Left Radial Arterial Blood Carboxyhemoglobin 0.2 Arterial Blood Methemoglobin 0.1 Blood Gas A-a O2 Differential 211.1 H Oxyhemoglobin Percent 93.7 Total Hemoglobin 12.7 Blood Gas Temperature 37.0 Blood Gas Modality MASK - SIMPLE FiO2 45.0 Blood Gas Critical Value Read Back JTACSAN [place] Blood Gas Notified Whom MA Blood Gas Notified Time 12/18/2016 12:41:20 AM Test 12/18/16 04:27 12/18/16 05:00 12/18/16 08:55 Bedside Glucose 200 211 White Blood Count 14.2 H Red Blood Count 3.84 L Hemoglobin 11.6 L Hematocrit 36.5 L Mean Corpuscular Volume 95.1 Mean Corpuscular Hemoglobin 30.2 Mean Corpuscular Hemoglobin Concent 31.8 L Red Cell Distribution Width 13.2 Platelet Count 517 #H Mean Platelet Volume 10.8 H Neutrophils % 77.4 H Lymphocytes % 8.9 L Monocytes % 10.3 Eosinophils % 2.1 Basophils % 0.5 Nucleated Red Blood Cells % 0.0 Neutrophils # 11.0 H Lymphocytes # 1.3 Monocytes # 1.5 H Eosinophils # 0.3 Basophils # 0.1 Nucleated Red Blood Cells # 0.0 Sodium Level 141 Potassium Level 3.2 L Chloride Level 94 L Carbon Dioxide Level 37 H Anion Gap 13 Blood Urea Nitrogen 23 H Creatinine 0.53 Glucose Level 220 # Calcium Level 9.5 Phosphorus Level 2.8 Magnesium Level 1.9 Troponin I 0.296 *H Medications Medications Current Medications Aspirin (Halfprin) 81 mg DAILY PO Last administered on 12/18/16 10:20; Admin Dose 81 MG; Start 12/11/16 at 09:00 Atorvastatin Calcium (Lipitor) 20 mg HS PO Last administered on 12/15/16 20:25 ; Admin Dose 20 MG; Start 12/10/16 at 21:00 Duloxetine HCl (Cymbalta) 20 mg DAILY PO Last administered on 12/18/16 10:19; Admin Dose 20 MG; Start 12/11/16 at 09:00 Gabapentin (Neurontin) 300 mg TID PO Last administered on 12/18/16 10:19; Admin Dose 300 MG; Start 12/10/16 at 21:00 Metoprolol Tartrate (Lopressor) 12.5 mg BID PO Last administered on 12/18/16 10 :20; Admin Dose 12.5 MG; Start 12/10/16 at 21:00 Ticagrelor (Brilinta) 90 mg BID PO Last administered on 12/18/16 10:22; Admin Dose 90 MG; Start 12/10/16 at 21:00 Levothyroxine Sodium (Synthroid) 112 mcg DAILY@06 PO Last administered on 05:08; Admin Dose 112 MCG; Start 12/11/16 at 06:00 Insulin Aspart (Novolog Insulin Pen) NOVOLOG *MODERATE* ALGORI... Q4 SC Last administered on 12/18/16 09:01; Admin Dose 4 UNIT; Start 12/10/16 at 21:00 Miscellaneous Information 1 ea NOTE XX ; Start 12/10/16 at 18:30 Glucose (Glutose) 15 gm Q15M PRN PO DECREASED GLUCOSE; Start 12/10/16 at 18:30 Glucose (Glutose) 22.5 gm Q15M PRN PO DECREASED GLUCOSE; Start 12/10/16 at 18: 30 Dextrose (D50w Syringe) 25 ml Q15M PRN IV DECREASED GLUCOSE Last administered on 12/13/16 13:10; Admin Dose 25 ML; Start 12/10/16 at 18:30 Dextrose (D50w Syringe) 50 ml Q15M PRN IV DECREASED GLUCOSE; Start 12/10/16 at 18:30 Glucagon (Glucagen) 1 mg Q15M PRN IM DECREASED GLUCOSE; Start 12/10/16 at 18:30 Glucose (Glutose) 15 gm Q15M PRN BUCCAL DECREASED GLUCOSE; Start 12/10/16 at 18 :30 Acetaminophen 650 mg 650 mg Q6H PRN NGT PAIN AND OR ELEVATED TEMP Last administered on 12/15/16 20:25; Admin Dose 650 MG; Start 12/10/16 at 21:00 Norepinephrine/ Dextrose (Levophed/D5W) 500 ml @ 1.87 mls/hr TITRATE IV Last administered on 12/11/16 00:20; Admin Dose 3.75 MLS/HR; Start 12/10/16 at 23:30 Acetaminophen (Tylenol Tab) 650 mg Q4H PRN PO NON-CARDIAC PAIN LEVEL (1-3); Start 12/11/16 at 13:00 Morphine Sulfate (morphine) 2 mg Q2H PRN IV FOR NON CARDIAC PAIN (4-10) Last administered on 12/15/16 10:33; Admin Dose 2 MG; Start 12/11/16 at 13:00 Al Hydrox/Mg Hydrox/Simethicone (Mag-Al Plus) 30 ml Q4H PRN PO GASTROINTESTINAL UPSET; Start 12/11/16 at 13:00 Ondansetron HCl 4 mg 4 mg Q4H PRN IV NAUSEA AND/OR VOMITING; Start 12/11/16 at 13:00 Fluconazole/ Sodium Chloride (Diflucan 100 Mg/ NS (Pmx)) 50 ml @ 50 mls/hr Q24H IVPB Last administered on 12/17/16 13:00; Admin Dose 50 MLS/HR; Start 12/13/16 at 12:00 Senna/Docusate Sodium (Senokot-S) 2 tab HS NGT Last administered on 12/15/16 20 :25; Admin Dose 2 TAB; Start 12/15/16 at 21:00 Insulin Glargine (Lantus) 15 unit DAILY@20 SC Last administered on 12/17/16 20: 42; Admin Dose 15 UNIT; Start 12/16/16 at 20:00 Lisinopril (Zestril) 2.5 mg DAILY PO Last administered on 12/18/16 10:26; Admin Dose 2.5 MG; Start 12/18/16 at 09:00 Heparin Sodium (Porcine) (Heparin (5000 Units/0.5 ml)) 5,000 unit BID SC Last administered on 12/18/16 09:08; Admin Dose 5,000 UNIT; Start 12/17/16 at 21:00 Famotidine 20 mg 20 mg HS PO ; Start 12/17/16 at 21:00 Potassium Chloride (KCl 40 MEQ/250 ML NS) 250 ml @ 62.5 mls/hr ONCE ONCE IVPB ; Start 12/18/16 at 10:00; Stop 12/18/16 at 13:59 RHONDA PENA Dec 18, 2016 10:55
--- NOTE | 2016-12-18 11:17 | CONS ---
Date/Time of Note Date/Time of Note DATE: 12/18/16 TIME: 11:16 Consult Date/Type/Reason Admit Date/Time Dec 10, 2016 at 16:55 Initial Consult Date 12/12/16 Type of Consultation: Pulmonary Ordering Provider: ROBEL PETTY MD Subjective Patient awake alert oriented comfortable with pressure ventilation Objective Vital Signs Date Time Temp Pulse Resp B/P Pulse Ox O2 Delivery O2 Flow Rate FiO2 12/18/16 10:00 122 24 118/44 91 Nasal Cannula 3.0 12/18/16 08:00 98.6 12/17/16 21:26 40 Intake and Output 12/17/16 12/17/16 12/18/16 15:00 23:00 07:00 Intake Total 134 ml Output Total 1150 ml 830 ml 75 ml Balance -1016 ml -830 ml -75 ml Exam PHYSICAL EXAMINATION GENERAL: Elderly-appearing lady on nasal cannula oxygen VITAL SIGNS: see below. HEENT: Pupils equal, round, and reactive to light. CARDIAC: S1, S2, 1/6 systolic ejection murmur CHEST: Diminished air entry bilaterally. ABDOMEN: Mildly distended. Bowel sounds present no guarding or rebound EXTREMITIES: No cyanosis, clubbing edema +1 NEUROLOGIC: Generalized weakness Results/Medications Result Diagram: 12/18/16 0500 12/18/16 0500 Results 24 hrs Laboratory Tests Test 12/17/16 12:15 12/17/16 14:00 12/17/16 14:10 12/17/16 14:56 Activated Partial Thromboplast Time 54.0 H Blood Gas Specimen Source Blood arterial Arterial Blood Date Drawn 12/17/2016 2:20:22 PM Arterial Blood pH (Temp corrected) 7.493 H Arterial Blood pCO2 (Temp correct) 50.0 H Arterial Blood pO2 (Temp corrected) 83.6 Arterial Blood HCO3 37.5 H Arterial Blood Base Excess 12.4 H Arterial Blood Oxygen Saturation 96.5 Miguel Test ACCEPTAB Arterial Blood Gas Puncture Site Left Radial Arterial Blood Carboxyhemoglobin 0.3 Arterial Blood Methemoglobin 0.2 Blood Gas A-a O2 Differential 144.1 H Oxyhemoglobin Percent 96.0 Total Hemoglobin 13.1 Blood Gas Temperature 37.0 Blood Gas Respiration Rate 20.0 Blood Gas Actual Respiration Rate 22 Blood Gas Modality MASK - BIPAP FiO2 40.0 Blood Gas IPAP/EPAP Ratio 20/6 Blood Gas Notified Whom KB Blood Gas Notified Time 12/17/2016 2:32:16 PM Troponin I 0.358 *H Bedside Glucose 119 Test 12/17/16 16:35 12/17/16 20:35 12/17/16 23:55 12/18/16 02:01 Bedside Glucose 134 175 220 Blood Gas Specimen Source Blood arterial Arterial Blood Date Drawn 12/18/2016 12:15:34 AM Arterial Blood pH (Temp corrected) 7.561 *H Arterial Blood pCO2 (Temp correct) 39.3 Arterial Blood pO2 (Temp corrected) 65.1 L Arterial Blood HCO3 34.5 H Arterial Blood Base Excess 11.4 H Arterial Blood Oxygen Saturation 94.0 L Miguel Test ACCEPTAB Arterial Blood Gas Puncture Site Left Radial Arterial Blood Carboxyhemoglobin 0.2 Arterial Blood Methemoglobin 0.1 Blood Gas A-a O2 Differential 211.1 H Oxyhemoglobin Percent 93.7 Total Hemoglobin 12.7 Blood Gas Temperature 37.0 Blood Gas Modality MASK - SIMPLE FiO2 45.0 Blood Gas Critical Value Read Back [facility] [place] Blood Gas Notified Whom AI Blood Gas Notified Time 12/18/2016 12:41:20 AM Test 12/18/16 04:27 12/18/16 05:00 12/18/16 08:55 Bedside Glucose 200 211 White Blood Count 14.2 H Red Blood Count 3.84 L Hemoglobin 11.6 L Hematocrit 36.5 L Mean Corpuscular Volume 95.1 Mean Corpuscular Hemoglobin 30.2 Mean Corpuscular Hemoglobin Concent 31.8 L Red Cell Distribution Width 13.2 Platelet Count 517 #H Mean Platelet Volume 10.8 H Neutrophils % 77.4 H Lymphocytes % 8.9 L Monocytes % 10.3 Eosinophils % 2.1 Basophils % 0.5 Nucleated Red Blood Cells % 0.0 Neutrophils # 11.0 H Lymphocytes # 1.3 Monocytes # 1.5 H Eosinophils # 0.3 Basophils # 0.1 Nucleated Red Blood Cells # 0.0 Sodium Level 141 Potassium Level 3.2 L Chloride Level 94 L Carbon Dioxide Level 37 H Anion Gap 13 Blood Urea Nitrogen 23 H Creatinine 0.53 Glucose Level 220 # Calcium Level 9.5 Phosphorus Level 2.8 Magnesium Level 1.9 Troponin I 0.296 *H Medications Current Medications Aspirin (Halfprin) 81 mg DAILY PO Last administered on 12/18/16t 10:20; Admin Dose 81 MG; Start 12/11/16 at 09:00 Atorvastatin Calcium (Lipitor) 20 mg HS PO Last administered on 12/15/16 20:25 ; Admin Dose 20 MG; Start 12/10/16 at 21:00 Duloxetine HCl (Cymbalta) 20 mg DAILY PO Last administered on 12/18/16 10:19; Admin Dose 20 MG; Start 12/11/16 at 09:00 Gabapentin (Neurontin) 300 mg TID PO Last administered on 12/18/16 10:19; Admin Dose 300 MG; Start 12/10/16 at 21:00 Metoprolol Tartrate (Lopressor) 12.5 mg BID PO Last administered on 12/18/16 10 :20; Admin Dose 12.5 MG; Start 12/10/16 at 21:00 Ticagrelor (Brilinta) 90 mg BID PO Last administered on 12/18/16 10:22; Admin Dose 90 MG; Start 12/10/16 at 21:00 Levothyroxine Sodium (Synthroid) 112 mcg DAILY@06 PO Last administered on 05:08; Admin Dose 112 MCG; Start 12/11/16 at 06:00 Insulin Aspart (Novolog Insulin Pen) NOVOLOG *MODERATE* ALGORI... Q4 SC Last administered on 12/18/16 09:01; Admin Dose 4 UNIT; Start 12/10/16 at 21:00 Miscellaneous Information 1 ea NOTE XX ; Start 12/10/16 at 18:30 Glucose (Glutose) 15 gm Q15M PRN PO DECREASED GLUCOSE; Start 12/10/16 at 18:30 Glucose (Glutose) 22.5 gm Q15M PRN PO DECREASED GLUCOSE; Start 12/10/16 at 18: 30 Dextrose (D50w Syringe) 25 ml Q15M PRN IV DECREASED GLUCOSE Last administered on 12/13/16 13:10; Admin Dose 25 ML; Start 12/10/16 at 18:30 Dextrose (D50w Syringe) 50 ml Q15M PRN IV DECREASED GLUCOSE; Start 12/10/16 at 18:30 Glucagon (Glucagen) 1 mg Q15M PRN IM DECREASED GLUCOSE; Start 12/10/16 at 18:30 Glucose (Glutose) 15 gm Q15M PRN BUCCAL DECREASED GLUCOSE; Start 12/10/16 at 18 :30 Acetaminophen 650 mg 650 mg Q6H PRN NGT PAIN AND OR ELEVATED TEMP Last administered on 12/15/16 20:25; Admin Dose 650 MG; Start 12/10/16 at 21:00 Norepinephrine/ Dextrose (Levophed/D5W) 500 ml @ 1.87 mls/hr TITRATE IV Last administered on 12/11/16 00:20; Admin Dose 3.75 MLS/HR; Start 12/10/16 at 23:30 Acetaminophen (Tylenol Tab) 650 mg Q4H PRN PO NON-CARDIAC PAIN LEVEL (1-3); Start 12/11/16 at 13:00 Morphine Sulfate (morphine) 2 mg Q2H PRN IV FOR NON CARDIAC PAIN (4-10) Last administered on 12/15/16 10:33; Admin Dose 2 MG; Start 12/11/16 at 13:00 Al Hydrox/Mg Hydrox/Simethicone (Mag-Al Plus) 30 ml Q4H PRN PO GASTROINTESTINAL UPSET; Start 12/11/16 at 13:00 Ondansetron HCl 4 mg 4 mg Q4H PRN IV NAUSEA AND/OR VOMITING; Start 12/11/16 at 13:00 Fluconazole/ Sodium Chloride (Diflucan 100 Mg/ NS (Pmx)) 50 ml @ 50 mls/hr Q24H IVPB Last administered on 12/17/16 13:00; Admin Dose 50 MLS/HR; Start 12/13/16 at 12:00 Senna/Docusate Sodium (Senokot-S) 2 tab HS NGT Last administered on 12/15/16 20 :25; Admin Dose 2 TAB; Start 12/15/16 at 21:00 Insulin Glargine (Lantus) 15 unit DAILY@20 SC Last administered on 12/17/16 20: 42; Admin Dose 15 UNIT; Start 12/16/16 at 20:00 Lisinopril (Zestril) 2.5 mg DAILY PO Last administered on 12/18/16 10:26; Admin Dose 2.5 MG; Start 12/18/16 at 09:00 Heparin Sodium (Porcine) (Heparin (5000 Units/0.5 ml)) 5,000 unit BID SC Last administered on 12/18/16 09:08; Admin Dose 5,000 UNIT; Start 12/17/16 at 21:00 Famotidine 20 mg 20 mg HS PO ; Start 12/17/16 at 21:00 Potassium Chloride (KCl 40 MEQ/250 ML NS) 250 ml @ 62.5 mls/hr ONCE ONCE IVPB ; Start 12/18/16 at 10:00; Stop 12/18/16 at 13:59 Assessment/Plan Chief Complaint/Hosp Course IMP: 1. s/p NSTEMI 2. Resp Failure--due to pulm edema now extubated on nasal cannula oxygen with intermittent BiPAP 3. AMS-resolved likely toxic metabolic encephalopathy 4. Anemia 5. Hypokalemia RECS: 1. More aggressive diuresis 2. Continue BiPAP as needed 3. Hold all sedation 4. Am labs/CXR 5. Adequate pain control. 6. DVT and GI prophylaxis Transfer to telemetry 35 min cc time Problems: SETFANI GONZALES MD, [facility] Dec 18, 2016 11:17
[2016-12-18] MEDS: FLUCONAZOLE 100 MG/NS (PMX) 50 ML IVPB SCH (12:46)
--- NOTE | 2016-12-18 16:28 | PN ---
Date/Time of Note Date/Time of Note DATE: 12/18/16 TIME: 16:27 Assessment/Plan VTE Prophylaxis VTE Prophylaxis Intervention: LMWH Lines/Catheters IV Catheter Type (from Nrsg): PICC Line Central line still needed: Yes (IV access) Urinary Cath still in place: Yes Reason Cath still needed: skin wounds contaminated by urine Assessment/Plan Chief Complaint/Hosp Course S: 7 failed extubation/CPAP trial today. High residuals with tube feeds yesterday. 12/16 events noted. Hypoglycemia noted. 12/17 required BiPAP but stable. 12/18: Not tolerating any po's. Somewhat more lethargic than yesterday. Family updated yesterday. O: Vital signs stable, except hypoxia PE No pallor/JVD. Reg, no m/r/g Diminished bs bilaterally. Bs dimin, nt nd, no RR G No edema Assessment and plan 1. Acute respiratory failure, mod stable cont o2. Extubated. Once off BiPAP transfer to telemetry. 2. NSTEMI. Sp cath -s/p LHC w patent RCA stents and high grade disease of LAD/ LCX w small caliber vessels. CABG if stable. 3. Ischemic cmy EF 25%. Cont medical management. 4. DKA resolved. 4. Chr type 2 DM; a1c= 9.1 6. Chr hypothyroidism 7. Tobacco abuse; offer patch 7. Deconditioning; PT may need snf. 9. Nephrolithiasis; cholelithiasis 10. Lice 11. Fungal cystitis 12. Adjustment disorder. Possible stress[place]? 13. Dysphagia, continue ST Problems: Exam/Review of Systems Vital Signs Vitals Vital Signs Date Time Temp Pulse Resp B/P Pulse Ox O2 Delivery O2 Flow Rate FiO2 12/18/16 16:00 110 29 98/37 92 BIPAP 12/18/16 15:32 40 12/18/16 15:00 3.0 12/18/16 12:00 98.0 Intake and Output 12/17/16 12/17/16 12/18/16 14:59 22:59 06:59 Intake Total 146 ml Output Total 400 ml 1570 ml 85 ml Balance -254 ml -1570 ml -85 ml Results Result Diagram: 12/18/16 0500 12/18/16 0500 Results 24 hrs Laboratory Tests Test 12/17/16 16:35 12/17/16 20:35 12/17/16 23:55 12/18/16 02:01 Bedside Glucose 134 175 220 Blood Gas Specimen Source Blood arterial Arterial Blood Date Drawn 12/18/2016 12:15:34 AM Arterial Blood pH (Temp corrected) 7.561 *H Arterial Blood pCO2 (Temp correct) 39.3 Arterial Blood pO2 (Temp corrected) 65.1 L Arterial Blood HCO3 34.5 H Arterial Blood Base Excess 11.4 H Arterial Blood Oxygen Saturation 94.0 L Miguel Test ACCEPTAB Arterial Blood Gas Puncture Site Left Radial Arterial Blood Carboxyhemoglobin 0.2 Arterial Blood Methemoglobin 0.1 Blood Gas A-a O2 Differential 211.1 H Oxyhemoglobin Percent 93.7 Total Hemoglobin 12.7 Blood Gas Temperature 37.0 Blood Gas Modality MASK - SIMPLE FiO2 45.0 Blood Gas Critical Value Read Back BRI JUAREZ Blood Gas Notified Whom [place] Blood Gas Notified Time 12/18/2016 12:41:20 AM Test 12/18/16 04:27 12/18/16 05:00 12/18/16 08:55 12/18/16 12:44 Bedside Glucose 200 211 167 White Blood Count 14.2 H Red Blood Count 3.84 L Hemoglobin 11.6 L Hematocrit 36.5 L Mean Corpuscular Volume 95.1 Mean Corpuscular Hemoglobin 30.2 Mean Corpuscular Hemoglobin Concent 31.8 L Red Cell Distribution Width 13.2 Platelet Count 517 #H Mean Platelet Volume 10.8 H Neutrophils % 77.4 H Lymphocytes % 8.9 L Monocytes % 10.3 Eosinophils % 2.1 Basophils % 0.5 Nucleated Red Blood Cells % 0.0 Neutrophils # 11.0 H Lymphocytes # 1.3 Monocytes # 1.5 H Eosinophils # 0.3 Basophils # 0.1 Nucleated Red Blood Cells # 0.0 Sodium Level 141 Potassium Level 3.2 L Chloride Level 94 L Carbon Dioxide Level 37 H Anion Gap 13 Blood Urea Nitrogen 23 H Creatinine 0.53 Glucose Level 220 # Calcium Level 9.5 Phosphorus Level 2.8 Magnesium Level 1.9 Troponin I 0.296 *H Medications Medications Current Medications Aspirin (Halfprin) 81 mg DAILY PO Last administered on 12/18/16 10:20; Admin Dose 81 MG; Start 12/11/16 at 09:00 Atorvastatin Calcium (Lipitor) 20 mg HS PO Last administered on 12/15/16 20:25 ; Admin Dose 20 MG; Start 12/10/16 at 21:00 Duloxetine HCl (Cymbalta) 20 mg DAILY PO Last administered on 12/18/16 10:19; Admin Dose 20 MG; Start 12/11/16 at 09:00 Gabapentin (Neurontin) 300 mg TID PO Last administered on 12/18/16 12:46; Admin Dose 300 MG; Start 12/10/16 at 21:00 Metoprolol Tartrate (Lopressor) 12.5 mg BID PO Last administered on 12/18/16 10 :20; Admin Dose 12.5 MG; Start 12/10/16 at 21:00 Ticagrelor (Brilinta) 90 mg BID PO Last administered on 12/18/16 10:22; Admin Dose 90 MG; Start 12/10/16 at 21:00 Levothyroxine Sodium (Synthroid) 112 mcg DAILY@06 PO Last administered on 05:08; Admin Dose 112 MCG; Start 12/11/16 at 06:00 Insulin Aspart (Novolog Insulin Pen) NOVOLOG *MODERATE* ALGORI... Q4 SC Last administered on 12/18/16 12:49; Admin Dose 4 UNIT; Start 12/10/16 at 21:00 Miscellaneous Information 1 ea NOTE XX ; Start 12/10/16 at 18:30 Glucose (Glutose) 15 gm Q15M PRN PO DECREASED GLUCOSE; Start 12/10/16 at 18:30 Glucose (Glutose) 22.5 gm Q15M PRN PO DECREASED GLUCOSE; Start 12/10/16 at 18: 30 Dextrose (D50w Syringe) 25 ml Q15M PRN IV DECREASED GLUCOSE Last administered on 12/13/16 13:10; Admin Dose 25 ML; Start 12/10/16 at 18:30 Dextrose (D50w Syringe) 50 ml Q15M PRN IV DECREASED GLUCOSE; Start 12/10/16 at 18:30 Glucagon (Glucagen) 1 mg Q15M PRN IM DECREASED GLUCOSE; Start 12/10/16 at 18:30 Glucose (Glutose) 15 gm Q15M PRN BUCCAL DECREASED GLUCOSE; Start 12/10/16 at 18 :30 Acetaminophen 650 mg 650 mg Q6H PRN NGT PAIN AND OR ELEVATED TEMP Last administered on 12/15/16 20:25; Admin Dose 650 MG; Start 12/10/16 at 21:00 Norepinephrine/ Dextrose (Levophed/D5W) 500 ml @ 1.87 mls/hr TITRATE IV Last administered on 12/11/16 00:20; Admin Dose 3.75 MLS/HR; Start 12/10/16 at 23:30 Acetaminophen (Tylenol Tab) 650 mg Q4H PRN PO NON-CARDIAC PAIN LEVEL (1-3); Start 12/11/16 at 13:00 Morphine Sulfate (morphine) 2 mg Q2H PRN IV FOR NON CARDIAC PAIN (4-10) Last administered on 12/15/16 10:33; Admin Dose 2 MG; Start 12/11/16 at 13:00 Al Hydrox/Mg Hydrox/Simethicone (Mag-Al Plus) 30 ml Q4H PRN PO GASTROINTESTINAL UPSET; Start 12/11/16 at 13:00 Ondansetron HCl 4 mg 4 mg Q4H PRN IV NAUSEA AND/OR VOMITING; Start 12/11/16 at 13:00 Fluconazole/ Sodium Chloride (Diflucan 100 Mg/ NS (Pmx)) 50 ml @ 50 mls/hr Q24H IVPB Last administered on 12/18/16 12:46; Admin Dose 50 MLS/HR; Start 12/13/16 at 12:00 Senna/Docusate Sodium (Senokot-S) 2 tab HS NGT Last administered on 12/15/16 20 :25; Admin Dose 2 TAB; Start 12/15/16 at 21:00 Insulin Glargine (Lantus) 15 unit DAILY@20 SC Last administered on 12/17/16 20: 42; Admin Dose 15 UNIT; Start 12/16/16 at 20:00 Lisinopril (Zestril) 2.5 mg DAILY PO Last administered on 12/18/16 10:26; Admin Dose 2.5 MG; Start 12/18/16 at 09:00 Heparin Sodium (Porcine) (Heparin (5000 Units/0.5 ml)) 5,000 unit BID SC Last administered on 12/18/16 09:08; Admin Dose 5,000 UNIT; Start 12/17/16 at 21:00 Famotidine (Pepcid) 20 mg HS PO ; Start 12/17/16 at 21:00 REJI HUDSON MD Dec 18, 2016 16:28
[2016-12-18] MEDS: SENNA/DOCUSATE NA (8.6MG/50MG) TAB NGT SCH ×3 (20:41→21:01)
[2016-12-18] MEDS: INSULIN GLARGINE [LANtus] 3 ML PEN SC SCH (20:54)
[2016-12-18] MEDS: FAMOTIDINE 20 MG TAB PO SCH (20:59)
[2016-12-18] MEDS: ATORVASTATIN 20 MG TAB PO SCH (20:59)
[2016-12-19] VITALS (30 sets, daily range): BP systolic 77–113; BP diastolic 38–51; PULSE 94–117; RESP 19–40
[2016-12-19] MEDS: INSULIN ASPART [NOVOLOG] 3 ML PEN SC SCH ×6 (00:39→21:27)
[2016-12-19] MEDS: ALBUTEROL/IPRATROPIUM (NEB) 3 ML AMP HHN SCH ×4 (01:18→20:11)
[2016-12-19 04:33] LABS: ADD SCAN DIFF NO
[2016-12-19 04:38] LABS: ABNORMAL IP MESSAGE 1; HEMATOCRIT 35.8 % (37.0-47.0); HEMOGLOBIN 11.5 g/dl (12.0-16.0); MEAN CORPUSCULAR HEMOGLOBIN 30.7 pg (29.0-33.0); MEAN CORPUSCULAR HGB CONC 32.1 g/dl (32.0-37.0); MEAN CORPUSCULAR VOLUME 95.5 fl (82.0-101.0); MEAN PLATELET VOLUME 10.6 fl (7.4-10.4); PLATELET COUNT 553 10^3/UL (140-415); RED BLOOD COUNT 3.75 10^6/ul (4.20-5.40); RED CELL DISTRIBUTION WIDTH 13.6 % (11.5-14.5); WHITE BLOOD COUNT 30.1 10^3/ul (4.8-10.8)
[2016-12-19 05:10] LABS: CALCIUM 9.6 mg/dl (8.4-10.2); CREATININE 0.82 mg/dl (0.44-1.00); PHOSPHORUS 3.4 mg/dl (2.5-4.9); POTASSIUM 3.7 mmol/L (3.5-5.1)
[2016-12-19 05:19] LABS: TROPONIN-I 0.184 ng/ml (0.00-0.12)
[2016-12-19] MEDS: FUROSEMIDE 40 MG INJ IV SCH (05:57)
[2016-12-19] MEDS: LEVOTHYROXINE 112 MCG TAB PO SCH (05:58)
[2016-12-19 07:52] LABS: AADO2 Arterial 100.4 mmHg (7.0-24.0); Allen Test ACCEPTAB; Arterial Base Excess -3.4 mmol/L (-3.0-3); Arterial COHb 0.3 % (0.0-3.0); Arterial Fraction of Oxyhgb 97.5 % (93.0-99.0); Arterial HCO3 21.2 mmol/L (22.0-26.0); Arterial MetHb 0.3 % (0.0-1.5); Arterial Total Hemglobin 9.1 g/dl (12.0-18.0); Blood Gas IEPAP 20/6; MODE MASK - BIPAP
[2016-12-19 07:52] LABS: AADO2 Arterial 173.6 mmHg (7.0-24.0); Allen Test ACCEPTAB; Arterial Base Excess 13.7 mmol/L (-3.0-3); Arterial COHb 0.3 % (0.0-3.0); Arterial Fraction of Oxyhgb 91.6 % (93.0-99.0); Arterial HCO3 37.8 mmol/L (22.0-26.0); Arterial MetHb 0.2 % (0.0-1.5); Arterial Total Hemglobin 12.8 g/dl (12.0-18.0); Blood Gas IEPAP 20/6; Blood Gas PS 14; MODE VENT - AC
[2016-12-19] MEDS: METOPROLOL 25 MG TAB PO SCH ×2 (09:00→21:00)
[2016-12-19] MEDS: LISINOPRIL 5 MG TAB PO SCH (09:00)
[2016-12-19] MEDS: DULOXETINE 20 MG CAP DR PO SCH (09:57)
[2016-12-19] MEDS: ASPIRIN (EC) 81 MG TAB PO SCH (09:57)
[2016-12-19] MEDS: GABAPENTIN 300 MG CAP PO SCH ×3 (09:57→22:35)
[2016-12-19] MEDS: HEPARIN 5,000 UNIT/0.5 ML VIAL SC SCH ×2 (09:59→21:27)
[2016-12-19] MEDS: TICAGRELOR 90 MG TABLET PO SCH ×2 (09:59→22:36)
--- NOTE | 2016-12-19 10:18 | CONS ---
Date/Time of Note Date/Time of Note DATE: 12/19/16 TIME: 10:13 Assessment/Plan Assessment/Plan Chief Complaint/Hosp Course IMP: 1.NSTEMI-peak trop>60 Now dowtrended significantly s/p LHC with patent RCA stents and high grade disease of LAD/LCX with small caliber vessels 2.cardiomyopathy-LVEF 40-45 BY OSH echo. 25% by echo read here 3.Hypotension-mimproved off of pressors 4.resp failure s/p extubation with PRN bipap 5.anemia 6. AMS/encephalopathy Recc: -Tele -Follow BP closely and continue low dose BB/ACEI as tolerated only -Continue asa/brilinta -Continue statin -Follow volume status closely and continue lasix diuresis but will decrease dose to 20 mg iv bid -Smoking cessation -Follow BS closely -CT surgical eval ongoing and will discuss with daughter Problems: Consultation Date/Type/Reason Admit Date/Time Dec 10, 2016 at 16:55 Initial Consult Date 12/12/16 Type of Consultation: cardiology Reason for Consultation nstemi Referring Provider: ROBEL PETTY MD Exam/Review of Systems Vital Signs Vitals Vital Signs Date Time Temp Pulse Resp B/P Pulse Ox O2 Delivery O2 Flow Rate FiO2 12/19/16 09:00 104 33 96/42 94 Nasal Cannula 4.0 12/19/16 08:00 99.1 12/19/16 05:22 40 Intake and Output 12/18/16 12/18/16 12/19/16 15:00 23:00 07:00 Intake Total 237.5 ml 625 ml Output Total 530 ml 395 ml 70 ml Balance -292.5 ml 230 ml -70 ml Exam Review of Systems: CONSTITUTIONAL: No fevers, chills. PULMONARY: mild sob CARDIOVASCULAR: No obvious chest pain/palpitations GASTROINTESTINAL: No nausea/vomiting. GENITOURINARY: No hematuria/dysuria. MUSCULOSKELETAL: No myagias/arthalgias. PSYCHIATRIC: The patient denies depression. NEUROLOGIC: confusion, lethargy Constitutional: alert Psych: confusion Head: normocephalic ENMT: mucosa pink and moist Neck: jvd (8-9 cm water), supple Respiratory: diminished breath sounds (at bases/B) Cardiovascular: regular rate and rhythm Gastrointestinal: non-tender, soft Musculoskeletal: muscle tone (normal) Extremities: edema (none) 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: confused, lethargic, other (No focal deficits) Results Result Diagram: 12/19/16 0400 12/19/16 0400 Results 24 hrs Laboratory Tests Test 12/18/16 12:44 12/18/16 17:33 12/18/16 20:37 12/19/16 00:34 Bedside Glucose 167 224 H 262 H 201 Test 12/19/16 00:53 12/19/16 04:00 12/19/16 05:57 12/19/16 07:00 Blood Gas Specimen Source Blood arterial Blood arterial Arterial Blood Date Drawn 12/19/2016 1:00:20 AM 12/19/2016 7:25:24 AM Arterial Blood pH (Temp corrected) 7.385 7.543 H Arterial Blood pCO2 (Temp correct) 36.3 44.9 Arterial Blood pO2 (Temp corrected) 143.1 H 60.0 L Arterial Blood HCO3 21.2 L 37.8 H Arterial Blood Base Excess -3.4 L 13.7 H Arterial Blood Oxygen Saturation 98.1 H 92.1 L Miguel Test ACCEPTAB ACCEPTAB Arterial Blood Gas Puncture Site Right Radial Right Radial Arterial Blood Carboxyhemoglobin 0.3 0.3 Arterial Blood Methemoglobin 0.3 0.2 Blood Gas A-a O2 Differential 100.4 H 173.6 H Oxyhemoglobin Percent 97.5 91.6 L Total Hemoglobin 9.1 L 12.8 Blood Gas Temperature 37.0 37.0 Blood Gas Respiration Rate 20.0 20.0 Blood Gas Actual Respiration Rate 20 21 Blood Gas Modality MASK - BIPAP VENT - AC FiO2 40.0 40.0 Blood Gas IPAP/EPAP Ratio 02/12 02/12 Blood Gas Notified Whom AI TM Blood Gas Notified Time 12/12/2016 1:13:10 AM 12/19/2016 7:44:34 AM White Blood Count 30.1 #H Red Blood Count 3.75 L Hemoglobin 11.5 L Hematocrit 35.8 L Mean Corpuscular Volume 95.5 Mean Corpuscular Hemoglobin 30.7 Mean Corpuscular Hemoglobin Concent 32.1 Red Cell Distribution Width 13.6 Platelet Count 553 H Mean Platelet Volume 10.6 H Sodium Level 145 H Potassium Level 3.7 Chloride Level 99 Carbon Dioxide Level 39 H Anion Gap 11 Blood Urea Nitrogen 38 #H Creatinine 0.82 Glucose Level 177 Calcium Level 9.6 Phosphorus Level 3.4 Magnesium Level 2.0 Troponin I 0.184 *H Bedside Glucose 164 Blood Gas Pressure Support 14 Test 12/19/16 08:55 Bedside Glucose 205 Medications Medications Current Medications Aspirin (Halfprin) 81 mg DAILY PO Last administered on 12/19/16 09:57; Admin Dose 81 MG; Start 12/11/16 at 09:00 Atorvastatin Calcium (Lipitor) 20 mg HS PO Last administered on 12/18/16 20:59 ; Admin Dose 20 MG; Start 12/10/16 at 21:00 Duloxetine HCl (Cymbalta) 20 mg DAILY PO Last administered on 12/19/16 09:57; Admin Dose 20 MG; Start 12/11/16 at 09:00 Gabapentin (Neurontin) 300 mg TID PO Last administered on 12/19/16 09:57; Admin Dose 300 MG; Start 12/10/16 at 21:00 Metoprolol Tartrate (Lopressor) 12.5 mg BID PO Last administered on 12/18/16 10 :20; Admin Dose 12.5 MG; Start 12/10/16 at 21:00 Ticagrelor (Brilinta) 90 mg BID PO Last administered on 12/19/16 09:59; Admin Dose 90 MG; Start 12/10/16 at 21:00 Levothyroxine Sodium (Synthroid) 112 mcg DAILY@06 PO Last administered on 05:08; Admin Dose 112 MCG; Start 12/11/16 at 06:00 Insulin Aspart (Novolog Insulin Pen) NOVOLOG *MODERATE* ALGORI... Q4 SC Last administered on 12/19/16 09:58; Admin Dose 4 UNIT; Start 12/10/16 at 21:00 Miscellaneous Information 1 ea NOTE XX ; Start 12/10/16 at 18:30 Glucose (Glutose) 15 gm Q15M PRN PO DECREASED GLUCOSE; Start 12/10/16 at 18:30 Glucose (Glutose) 22.5 gm Q15M PRN PO DECREASED GLUCOSE; Start 12/10/16 at 18: 30 Dextrose (D50w Syringe) 25 ml Q15M PRN IV DECREASED GLUCOSE Last administered on 12/13/16 13:10; Admin Dose 25 ML; Start 12/10/16 at 18:30 Dextrose (D50w Syringe) 50 ml Q15M PRN IV DECREASED GLUCOSE; Start 12/10/16 at 18:30 Glucagon (Glucagen) 1 mg Q15M PRN IM DECREASED GLUCOSE; Start 12/10/16 at 18:30 Glucose (Glutose) 15 gm Q15M PRN BUCCAL DECREASED GLUCOSE; Start 12/10/16 at 18 :30 Acetaminophen 650 mg 650 mg Q6H PRN NGT PAIN AND OR ELEVATED TEMP Last administered on 12/15/16 20:25; Admin Dose 650 MG; Start 12/10/16 at 21:00 Norepinephrine/ Dextrose (Levophed/D5W) 500 ml @ 1.87 mls/hr TITRATE IV Last administered on 12/11/16 00:20; Admin Dose 3.75 MLS/HR; Start 12/10/16 at 23:30 Acetaminophen (Tylenol Tab) 650 mg Q4H PRN PO NON-CARDIAC PAIN LEVEL (1-3); Start 12/11/16 at 13:00 Morphine Sulfate (morphine) 2 mg Q2H PRN IV FOR NON CARDIAC PAIN (4-10) Last administered on 12/15/16 10:33; Admin Dose 2 MG; Start 12/11/16 at 13:00 Al Hydrox/Mg Hydrox/Simethicone (Mag-Al Plus) 30 ml Q4H PRN PO GASTROINTESTINAL UPSET; Start 12/11/16 at 13:00 Ondansetron HCl 4 mg 4 mg Q4H PRN IV NAUSEA AND/OR VOMITING; Start 12/11/16 at 13:00 Fluconazole/ Sodium Chloride (Diflucan 100 Mg/ NS (Pmx)) 50 ml @ 50 mls/hr Q24H IVPB Last administered on 12/18/16 12:46; Admin Dose 50 MLS/HR; Start 12/13/16 at 12:00 Senna/Docusate Sodium (Senokot-S) 2 tab HS NGT Last administered on 12/15/16 20 :25; Admin Dose 2 TAB; Start 12/15/16 at 21:00 Insulin Glargine (Lantus) 15 unit DAILY@20 SC Last administered on 12/18/16 20: 54; Admin Dose 15 UNIT; Start 12/16/16 at 20:00 Lisinopril (Zestril) 2.5 mg DAILY PO Last administered on 12/18/16 10:26; Admin Dose 2.5 MG; Start 12/18/16 at 09:00 Heparin Sodium (Porcine) (Heparin (5000 Units/0.5 ml)) 5,000 unit BID SC Last administered on 12/19/16 09:59; Admin Dose 5,000 UNIT; Start 12/17/16 at 21:00 Famotidine (Pepcid) 20 mg HS PO Last administered on 12/18/16 20:59; Admin Dose 20 MG; Start 12/17/16 at 21:00 RHONDA PENA Dec 19, 2016 10:18
--- NOTE | 2016-12-19 12:26 | CONS ---
Date/Time of Note Date/Time of Note DATE: 12/19/16 TIME: 12:23 Consult Date/Type/Reason Admit Date/Time Dec 10, 2016 at 16:55 Initial Consult Date 12/12/16 Type of Consultation: Pulmonary ICU Ordering Provider: ROBEL PETTY MD Subjective Patient remains stable on nasal cannula O2 this morning no respiratory distress. Objective Vital Signs Date Time Temp Pulse Resp B/P Pulse Ox O2 Delivery O2 Flow Rate FiO2 12/19/16 09:00 104 33 96/42 94 Nasal Cannula 4.0 12/19/16 08:00 99.1 12/19/16 05:22 40 Intake and Output 12/18/16 12/18/16 12/19/16 15:00 23:00 07:00 Intake Total 237.5 ml 625 ml Output Total 530 ml 395 ml 70 ml Balance -292.5 ml 230 ml -70 ml Exam PHYSICAL EXAMINATION GENERAL: Elderly-appearing lady on nasal cannula oxygen VITAL SIGNS: see below. HEENT: Pupils equal, round, and reactive to light. CARDIAC: S1, S2, 1/6 systolic ejection murmur CHEST: Diminished air entry bilaterally. ABDOMEN: Mildly distended. Bowel sounds present no guarding or rebound EXTREMITIES: No cyanosis, clubbing edema +1 NEUROLOGIC: Generalized weakness Results/Medications Result Diagram: 12/19/16 0400 12/19/16 0400 Results 24 hrs Laboratory Tests Test 12/18/16 12:44 12/18/16 17:33 12/18/16 20:37 12/19/16 00:34 Bedside Glucose 167 224 H 262 H 201 Test 12/19/16 00:53 12/19/16 04:00 12/19/16 05:57 12/19/16 07:00 Blood Gas Specimen Source Blood arterial Blood arterial Arterial Blood Date Drawn 12/19/2016 1:00:20 AM 12/19/2016 7:25:24 AM Arterial Blood pH (Temp corrected) 7.385 7.543 H Arterial Blood pCO2 (Temp correct) 36.3 44.9 Arterial Blood pO2 (Temp corrected) 143.1 H 60.0 L Arterial Blood HCO3 21.2 L 37.8 H Arterial Blood Base Excess -3.4 L 13.7 H Arterial Blood Oxygen Saturation 98.1 H 92.1 L Miguel Test ACCEPTAB ACCEPTAB Arterial Blood Gas Puncture Site Right Radial Right Radial Arterial Blood Carboxyhemoglobin 0.3 0.3 Arterial Blood Methemoglobin 0.3 0.2 Blood Gas A-a O2 Differential 100.4 H 173.6 H Oxyhemoglobin Percent 97.5 91.6 L Total Hemoglobin 9.1 L 12.8 Blood Gas Temperature 37.0 37.0 Blood Gas Respiration Rate 20.0 20.0 Blood Gas Actual Respiration Rate 20 21 Blood Gas Modality MASK - BIPAP VENT - AC FiO2 40.0 40.0 Blood Gas IPAP/EPAP Ratio 02/12 02/12 Blood Gas Notified Whom AI TM Blood Gas Notified Time 12/12/2016 1:13:10 AM 12/19/2016 7:44:34 AM White Blood Count 30.1 #H Red Blood Count 3.75 L Hemoglobin 11.5 L Hematocrit 35.8 L Mean Corpuscular Volume 95.5 Mean Corpuscular Hemoglobin 30.7 Mean Corpuscular Hemoglobin Concent 32.1 Red Cell Distribution Width 13.6 Platelet Count 553 H Mean Platelet Volume 10.6 H Sodium Level 145 H Potassium Level 3.7 Chloride Level 99 Carbon Dioxide Level 39 H Anion Gap 11 Blood Urea Nitrogen 38 #H Creatinine 0.82 Glucose Level 177 Calcium Level 9.6 Phosphorus Level 3.4 Magnesium Level 2.0 Troponin I 0.184 *H Bedside Glucose 164 Blood Gas Pressure Support 14 Test 12/19/16 08:55 Bedside Glucose 205 Medications Current Medications Aspirin (Halfprin) 81 mg DAILY PO Last administered on 12/19/16 09:57; Admin Dose 81 MG; Start 12/11/16 at 09:00 Atorvastatin Calcium (Lipitor) 20 mg HS PO Last administered on 12/18/16 20:59 ; Admin Dose 20 MG; Start 12/10/16 at 21:00 Duloxetine HCl (Cymbalta) 20 mg DAILY PO Last administered on 12/19/16 09:57; Admin Dose 20 MG; Start 12/11/16 at 09:00 Gabapentin (Neurontin) 300 mg TID PO Last administered on 12/19/16 09:57; Admin Dose 300 MG; Start 12/10/16 at 21:00 Metoprolol Tartrate (Lopressor) 12.5 mg BID PO Last administered on 12/18/16 10 :20; Admin Dose 12.5 MG; Start 12/10/16 at 21:00 Ticagrelor (Brilinta) 90 mg BID PO Last administered on 12/19/16 09:59; Admin Dose 90 MG; Start 12/10/16 at 21:00 Levothyroxine Sodium (Synthroid) 112 mcg DAILY@06 PO Last administered on 05:08; Admin Dose 112 MCG; Start 12/11/16 at 06:00 Insulin Aspart (Novolog Insulin Pen) NOVOLOG *MODERATE* ALGORI... Q4 SC Last administered on 12/19/16 09:58; Admin Dose 4 UNIT; Start 12/10/16 at 21:00 Miscellaneous Information 1 ea NOTE XX ; Start 12/10/16 at 18:30 Glucose (Glutose) 15 gm Q15M PRN PO DECREASED GLUCOSE; Start 12/10/16 at 18:30 Glucose (Glutose) 22.5 gm Q15M PRN PO DECREASED GLUCOSE; Start 12/10/16 at 18: 30 Dextrose (D50w Syringe) 25 ml Q15M PRN IV DECREASED GLUCOSE Last administered on 12/13/16 13:10; Admin Dose 25 ML; Start 12/10/16 at 18:30 Dextrose (D50w Syringe) 50 ml Q15M PRN IV DECREASED GLUCOSE; Start 12/10/16 at 18:30 Glucagon (Glucagen) 1 mg Q15M PRN IM DECREASED GLUCOSE; Start 12/10/16 at 18:30 Glucose (Glutose) 15 gm Q15M PRN BUCCAL DECREASED GLUCOSE; Start 12/10/16 at 18 :30 Acetaminophen 650 mg 650 mg Q6H PRN NGT PAIN AND OR ELEVATED TEMP Last administered on 12/15/16 20:25; Admin Dose 650 MG; Start 12/10/16 at 21:00 Norepinephrine/ Dextrose (Levophed/D5W) 500 ml @ 1.87 mls/hr TITRATE IV Last administered on 12/11/16 00:20; Admin Dose 3.75 MLS/HR; Start 12/10/16 at 23:30 Acetaminophen (Tylenol Tab) 650 mg Q4H PRN PO NON-CARDIAC PAIN LEVEL (1-3); Start 12/11/16 at 13:00 Morphine Sulfate (morphine) 2 mg Q2H PRN IV FOR NON CARDIAC PAIN (4-10) Last administered on 7/3/17at 10:33; Admin Dose 2 MG; Start 12/11/16 at 13:00 Al Hydrox/Mg Hydrox/Simethicone (Mag-Al Plus) 30 ml Q4H PRN PO GASTROINTESTINAL UPSET; Start 12/11/16 at 13:00 Ondansetron HCl 4 mg 4 mg Q4H PRN IV NAUSEA AND/OR VOMITING; Start 12/11/16 at 13:00 Fluconazole/ Sodium Chloride (Diflucan 100 Mg/ NS (Pmx)) 50 ml @ 50 mls/hr Q24H IVPB Last administered on 12/18/16 12:46; Admin Dose 50 MLS/HR; Start 12/13/16 at 12:00 Senna/Docusate Sodium (Senokot-S) 2 tab HS NGT Last administered on 12/15/16 20 :25; Admin Dose 2 TAB; Start 12/15/16 at 21:00 Insulin Glargine (Lantus) 15 unit DAILY@20 SC Last administered on 12/18/16 20: 54; Admin Dose 15 UNIT; Start 12/16/16 at 20:00 Lisinopril (Zestril) 2.5 mg DAILY PO Last administered on 12/18/16 10:26; Admin Dose 2.5 MG; Start 12/18/16 at 09:00 Heparin Sodium (Porcine) (Heparin (5000 Units/0.5 ml)) 5,000 unit BID SC Last administered on 12/19/16 09:59; Admin Dose 5,000 UNIT; Start 12/17/16 at 21:00 Famotidine (Pepcid) 20 mg HS PO Last administered on 12/18/16 20:59; Admin Dose 20 MG; Start 12/17/16 at 21:00 Assessment/Plan Chief Complaint/Hosp Course IMP: 1. s/p NSTEMI 2. Resp Failure--due to pulm edema now extubated on nasal cannula oxygen with intermittent BiPAP 3. AMS-resolved likely toxic metabolic encephalopathy 4. Anemia 5. Significant leukocytosis, Dr. Jacobs's team called. RECS: 1. More aggressive diuresis 2. Continue BiPAP as needed 3. Hold all sedation 4. Am labs/CXR 5. Adequate pain control. 6. DVT and GI prophylaxis 7. Consider ID consult. Transfer to telemetry 35 min cc time Problems: STEFANI GONZALES MD, [facility] Dec 19, 2016 12:25
[2016-12-19 13:06] LABS: LYMPHOCYTES # 1.2 10^3/ul (0.8-2.9); MONOCYTE # 0.6 10^3/ul (0.3-0.9); NEUTROPHIL # 26.2 10^3/ul (1.6-7.5)
[2016-12-19] MEDS: FLUCONAZOLE 100 MG/NS (PMX) 50 ML IVPB SCH (13:29)
[2016-12-19 14:01] LABS: ADD UMIC YES; UR ASCORBIC ACID NEGATIVE (NEGATIVE); UR BILIRUBIN (Dip) NEGATIVE (NEGATIVE); UR BLOOD (Dip) NEGATIVE (NEGATIVE); UR CLARITY SLIGHTLY CLOUDY (CLEAR); UR COLOR AMBER (YELLOW); UR GLUCOSE (Dip) NEGATIVE (NEGATIVE); UR KETONES (Dip) 1+ mg/dL (NEGATIVE); UR LEUKOCYTE ESTERASE (Dip) TRACE Leu/ul (NEGATIVE); UR MUCUS FEW /HPF (NONE SEEN); UR NITRITE (Dip) NEGATIVE (NEGATIVE); UR RBC 3 /HPF (0-5); UR SPECIFIC GRAVITY (Dip) 1.026 (1.003-1.030); UR TOTAL PROTEIN (Dip) 1+ mg/dl (NEGATIVE); UR UROBILINOGEN (Dip) 2+ mg/dL (NEGATIVE)
--- NOTE | 2016-12-19 14:57 | PN ---
Date/Time of Note Date/Time of Note DATE: 12/19/16 TIME: 14:57 Assessment/Plan Lines/Catheters IV Catheter Type (from Nrsg): PICC Line Mccray in Place (from Nrsg): Yes Assessment/Plan Chief Complaint/Hosp Course CAD, status post non-ST elevation CO History of lice Cardiomyopathy with ejection fraction 25% Respiratory failure Patient is not a candidate to undergo coronary artery bypass grafting at this time Still on BIPAP FiO2 of 40% Would continue medical management Diuretics Plan for possible coronary artery bypass grafting when medically more stable Problems: Subjective 24 Hr Interval Summary Constitutional: improved Pain Control: mild Exam/Review of Systems Vital Signs Vitals Vital Signs Date Time Temp Pulse Resp B/P Pulse Ox O2 Delivery O2 Flow Rate FiO2 12/19/16 14:00 113 30 97/39 94 Nasal Cannula 4.0 12/19/16 12:00 98.5 12/19/16 05:22 40 Intake and Output 12/18/16 12/18/16 12/19/16 15:00 23:00 07:00 Intake Total 237.5 ml 625 ml Output Total 530 ml 395 ml 70 ml Balance -292.5 ml 230 ml -70 ml Exam ENMT: mucosa pink and moist, nl external ears & nose, nl lips & teeth, nl nasal mucosa & septum Neck: non-tender, supple Respiratory: clear to auscultation, normal air movement Cardiovascular: nl pulses, regular rate and rhythm Gastrointestinal: nl liver, spleen, non-tender, soft Results Result Diagram: 12/19/16 [id number] CHELA ALVARENGA MD Dec 19, 2016 14:57
[2016-12-19] MEDS: CASPOFUNGIN 50 MG in SOD CHLORIDE 0.9% 250 ML IVPB SCH (18:21)
[2016-12-19] MEDS: FUROSEMIDE 20 MG INJ IV SCH (18:22)
[2016-12-19] MEDS: CEFEPIME 1GM/50 ML (PMX) 50 ML IVPB SCH (21:22)
[2016-12-19] MEDS: INSULIN GLARGINE [LANtus] 3 ML PEN SC SCH (21:26)
--- NOTE | 2016-12-19 21:59 | RADRPT ---
PROCEDURE: XR Chest. CLINICAL INDICATION: Nasogastric tube placement. TECHNIQUE: Portable AP upright view of the chest was obtained. COMPARISON: 12/18/2016 FINDINGS: Distal tip of the nasogastric tube is in great position in the region of the pylorus. The cardiomed iastinal silhouette is within normal limits. Right lower lobe infiltrate is stable. The left lung remains clear. Right-sided PICC is again seen the tip of the visible at the cavoatrial junction. T here is no evidence for pleural effusion, pneumothorax or pulmonary vascular congestion. The osseou s structures are intact with no evidence for acute abnormality. RPTAT:HJJR IMPRESSION: 1. Successful interval placement of a nasogastric tube the distal tip in the region of the pylorus i n good position for usage. 2. Stable right lower lobe infiltrate compared to 12/18/2016. 3. Right sided PICC remains in good radiographic position. Physician Olivia Date Time Electronically viewed and signed by Physician Olivia on 12/19/2016 21:59 /
[2016-12-19] MEDS: SENNA/DOCUSATE NA (8.6MG/50MG) TAB NGT SCH (22:34)
[2016-12-19] MEDS: ATORVASTATIN 20 MG TAB PO SCH (22:34)
[2016-12-19] MEDS: FAMOTIDINE 20 MG TAB PO SCH (22:35)
[2016-12-19] MEDS: ACETAMINOPHEN 650MG/20.3ML CUP NGT PRN (22:35)
[2016-12-20] VITALS (33 sets, daily range): BP systolic 86–118; BP diastolic 32–71; PULSE 90–112; RESP 14–28
[2016-12-20] MEDS: INSULIN ASPART [NOVOLOG] 3 ML PEN SC SCH ×6 (01:18→21:09)
[2016-12-20] MEDS: ALBUTEROL/IPRATROPIUM (NEB) 3 ML AMP HHN SCH ×4 (01:50→20:14)
[2016-12-20] MEDS: LEVOTHYROXINE 112 MCG TAB PO SCH (06:05)
[2016-12-20] MEDS: FUROSEMIDE 20 MG INJ IV SCH ×2 (06:05→17:11)
[2016-12-20 06:39] LABS: ADD SCAN DIFF NO
--- NOTE | 2016-12-20 06:44 | CONS ---
Date/Time of Note Date/Time of Note DATE: 12/20/16 TIME: 06:39 Assessment/Plan Assessment/Plan Chief Complaint/Hosp Course IMP: 1.NSTEMI-peak trop>60 Now dowtrended significantly s/p LHC with patent RCA stents and high grade disease of LAD/LCX with small caliber vessels 2.cardiomyopathy-LVEF 40-45 BY OSH echo. 25% by echo read here 3.Hypotension-mimproved off of pressors 4.resp failure s/p extubation with BIPAP currently ongoing 5.anemia 6. AMS/encephalopathy Recc: -Tele -Follow BP closely and continue low dose BB/ACEI as tolerated only -Continue asa/brilinta -Continue statin -Follow volume status closely and continue lasix diuresis as tolerated -Smoking cessation -Follow BS closely -CT surgical eval ongoing and have discussed with daughter Problems: Consultation Date/Type/Reason Admit Date/Time Dec 10, 2016 at 16:55 Initial Consult Date 12/12/16 Type of Consultation: cardiology Reason for Consultation Nstemi Referring Provider: ROBEL PETTY MD Exam/Review of Systems Vital Signs Vitals Vital Signs Date Time Temp Pulse Resp B/P Pulse Ox O2 Delivery O2 Flow Rate FiO2 12/20/16 06:00 92 20 107/49 96 12/20/16 05:27 50 12/20/16 04:00 100.1 12/19/16 20:00 BIPAP 12/19/16 17:22 4.0 Intake and Output 12/19/16 12/19/16 12/20/16 15:00 23:00 07:00 Intake Total 50 ml Output Total 220 ml 480 ml 180 ml Balance -170 ml -480 ml -180 ml Exam Review of Systems: CONSTITUTIONAL: No fevers, chills. PULMONARY: resp fail on bipap CARDIOVASCULAR: No obvious chest pain/palpitations GASTROINTESTINAL: No nausea/vomiting. GENITOURINARY: No hematuria/dysuria. MUSCULOSKELETAL: No obvious myagias/arthalgias. PSYCHIATRIC: +Psych. NEUROLOGIC: lethargic Constitutional: alert Psych: confusion Head: normocephalic ENMT: other (BIPAP in place) Neck: jvd (9 cm water), supple Respiratory: diminished breath sounds (at bases/B) Cardiovascular: regular rate and rhythm Gastrointestinal: non-tender, soft Musculoskeletal: muscle tone (normal) Extremities: edema (none) 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: lethargic Results Result Diagram: 12/19/16 0400 12/19/16 0400 Results 24 hrs Laboratory Tests Test 12/19/16 07:00 12/19/16 08:55 12/19/16 13:00 12/19/16 13:27 Blood Gas Specimen Source Blood arterial Arterial Blood Date Drawn 12/19/2016 7:25:24 AM Arterial Blood pH (Temp corrected) 7.543 H Arterial Blood pCO2 (Temp correct) 44.9 Arterial Blood pO2 (Temp corrected) 60.0 L Arterial Blood HCO3 37.8 H Arterial Blood Base Excess 13.7 H Arterial Blood Oxygen Saturation 92.1 L Miguel Test ACCEPTAB Arterial Blood Gas Puncture Site Right Radial Arterial Blood Carboxyhemoglobin 0.3 Arterial Blood Methemoglobin 0.2 Blood Gas A-a O2 Differential 173.6 H Oxyhemoglobin Percent 91.6 L Total Hemoglobin 12.8 Blood Gas Temperature 37.0 Blood Gas Respiration Rate 20.0 Blood Gas Actual Respiration Rate 21 Blood Gas Modality VENT - AC FiO2 40.0 Blood Gas Pressure Support 14 Blood Gas IPAP/EPAP Ratio 20/6 Blood Gas Notified Whom TM Blood Gas Notified Time 12/19/2016 7:44:34 AM Bedside Glucose 205 234 H Urine Color MARILU Urine Clarity SLIGHTLY CLOUDY A Urine pH 5.0 Urine Specific [place] 1.026 Urine Ketones 1+ H Urine Nitrite NEGATIVE Urine Bilirubin NEGATIVE Urine Urobilinogen 2+ H Urine Leukocyte Esterase TRACE A Urine Microscopic RBC 3 Urine Microscopic WBC 7 H Urine Mucus FEW A Urine Hemoglobin NEGATIVE Urine Glucose NEGATIVE Urine Total Protein 1+ H Test 12/19/16 17:02 12/19/16 21:22 12/20/16 01:14 12/20/16 06:01 Bedside Glucose 227 H 204 190 155 Medications Medications Current Medications Aspirin (Halfprin) 81 mg DAILY PO Last administered on 12/19/16 09:57; Admin Dose 81 MG; Start 12/11/16 at 09:00 Atorvastatin Calcium (Lipitor) 20 mg HS PO Last administered on 12/19/16 22:34 ; Admin Dose 20 MG; Start 12/10/16 at 21:00 Duloxetine HCl (Cymbalta) 20 mg DAILY PO Last administered on 12/19/16 09:57; Admin Dose 20 MG; Start 12/11/16 at 09:00 Gabapentin (Neurontin) 300 mg TID PO Last administered on 12/19/16 22:35; Admin Dose 300 MG; Start 12/10/16 at 21:00 Metoprolol Tartrate (Lopressor) 12.5 mg BID PO Last administered on 12/18/16 10 :20; Admin Dose 12.5 MG; Start 12/10/16 at 21:00 Ticagrelor (Brilinta) 90 mg BID PO Last administered on 12/19/16 22:36; Admin Dose 90 MG; Start 12/10/16 at 21:00 Levothyroxine Sodium (Synthroid) 112 mcg DAILY@06 PO Last administered on 06:05; Admin Dose 112 MCG; Start 12/11/16 at 06:00 Insulin Aspart (Novolog Insulin Pen) NOVOLOG *MODERATE* ALGORI... Q4 SC Last administered on 12/20/16 06:19; Admin Dose 2 UNIT; Start 12/10/16 at 21:00 Miscellaneous Information 1 ea NOTE XX ; Start 12/10/16 at 18:30 Glucose (Glutose) 15 gm Q15M PRN PO DECREASED GLUCOSE; Start 12/10/16 at 18:30 Glucose (Glutose) 22.5 gm Q15M PRN PO DECREASED GLUCOSE; Start 12/10/16 at 18: 30 Dextrose (D50w Syringe) 25 ml Q15M PRN IV DECREASED GLUCOSE Last administered on 12/13/16 13:10; Admin Dose 25 ML; Start 12/10/16 at 18:30 Dextrose (D50w Syringe) 50 ml Q15M PRN IV DECREASED GLUCOSE; Start 12/10/16 at 18:30 Glucagon (Glucagen) 1 mg Q15M PRN IM DECREASED GLUCOSE; Start 12/10/16 at 18:30 Glucose (Glutose) 15 gm Q15M PRN BUCCAL DECREASED GLUCOSE; Start 12/10/16 at 18 :30 Acetaminophen 650 mg 650 mg Q6H PRN NGT PAIN AND OR ELEVATED TEMP Last administered on 12/19/16 22:35; Admin Dose 650 MG; Start 12/10/16 at 21:00 Norepinephrine/ Dextrose (Levophed/D5W) 500 ml @ 1.87 mls/hr TITRATE IV Last administered on 12/11/16 00:20; Admin Dose 3.75 MLS/HR; Start 12/10/16 at 23:30 Acetaminophen (Tylenol Tab) 650 mg Q4H PRN PO NON-CARDIAC PAIN LEVEL (1-3); Start 12/11/16 at 13:00 Morphine Sulfate (morphine) 2 mg Q2H PRN IV FOR NON CARDIAC PAIN (4-10) Last administered on 12/15/16 10:33; Admin Dose 2 MG; Start 12/11/16 at 13:00 Al Hydrox/Mg Hydrox/Simethicone (Mag-Al Plus) 30 ml Q4H PRN PO GASTROINTESTINAL UPSET; Start 12/11/16 at 13:00 Ondansetron HCl (Zofran Inj) 4 mg Q4H PRN IV NAUSEA AND/OR VOMITING; Start at 13:00 Senna/Docusate Sodium (Senokot-S) 2 tab HS NGT Last administered on 12/19/16 22 :34; Admin Dose 2 TAB; Start 12/15/16 at 21:00 Insulin Glargine (Lantus) 15 unit DAILY@20 SC Last administered on 12/19/16 21: 26; Admin Dose 15 UNIT; Start 12/16/16 at 20:00 Lisinopril (Zestril) 2.5 mg DAILY PO Last administered on 12/18/16 10:26; Admin Dose 2.5 MG; Start 12/18/16 at 09:00 Heparin Sodium (Porcine) (Heparin (5000 Units/0.5 ml)) 5,000 unit BID SC Last administered on 12/19/16 21:27; Admin Dose 5,000 UNIT; Start 12/17/16 at 21:00 Famotidine 20 mg 20 mg HS PO Last administered on 12/19/16 22:35; Admin Dose 20 MG; Start 12/17/16 at 21:00 Caspofungin 50 mg/ Sodium Chloride 250 ml @ 250 mls/hr Q24H IVPB Last administered on 12/19/16 18:21; Admin Dose 250 MLS/HR; Start 12/19/16 at 18:00 Cefepime HCl (Maxipime 1gm/50 ml (Pmx)) 50 ml @ 100 mls/hr Q12 IVPB Last administered on 12/19/16 21:22; Admin Dose 100 MLS/HR; Start 12/19/16 at 21:00 RHONDA PENA Dec 20, 2016 06:44
[2016-12-20 06:49] LABS: ABNORMAL IP MESSAGE 1; BASOPHIL # 0.1 10^3/ul (0.0-0.1); BASOPHILS % 0.4 % (0.0-2.0); EOSINOPHILS # 0.1 10^3/ul (0.0-0.5); EOSINOPHILS % 0.3 % (0.0-7.0); HEMATOCRIT 36.3 % (37.0-47.0); HEMOGLOBIN 11.2 g/dl (12.0-16.0); LYMPHOCYTES % 3.9 % (15.0-51.0); MEAN CORPUSCULAR HEMOGLOBIN 29.9 pg (29.0-33.0); MEAN CORPUSCULAR HGB CONC 30.9 g/dl (32.0-37.0); MEAN CORPUSCULAR VOLUME 96.8 fl (82.0-101.0); MEAN PLATELET VOLUME 10.8 fl (7.4-10.4); MONOCYTE # 1.5 10^3/ul (0.3-0.9); MONOCYTES % 5.8 % (0.0-11.0); NEUTROPHIL # 22.5 10^3/ul (1.6-7.5); NEUTROPHILS % 88.5 % (39.0-77.0); PLATELET COUNT 589 10^3/UL (140-415); RED BLOOD COUNT 3.75 10^6/ul (4.20-5.40); RED CELL DISTRIBUTION WIDTH 14.2 % (11.5-14.5); WHITE BLOOD COUNT 25.4 10^3/ul (4.8-10.8)
[2016-12-20 07:13] LABS: CALCIUM 9.5 mg/dl (8.4-10.2); CREATININE 0.6 mg/dl (0.44-1.00); POTASSIUM 3.1 mmol/L (3.5-5.1)
[2016-12-20] MEDS: LISINOPRIL 5 MG TAB PO SCH (09:00)
[2016-12-20] MEDS: METOPROLOL 25 MG TAB PO SCH ×2 (09:00→20:44)
[2016-12-20] MEDS: DULOXETINE 20 MG CAP DR PO SCH (09:03)
[2016-12-20] MEDS: CEFEPIME 1GM/50 ML (PMX) 50 ML IVPB SCH ×2 (09:03→20:43)
[2016-12-20] MEDS: GABAPENTIN 300 MG CAP PO SCH ×3 (09:03→20:43)
[2016-12-20] MEDS: TICAGRELOR 90 MG TABLET PO SCH ×2 (09:04→20:56)
[2016-12-20] MEDS: ASPIRIN (EC) 81 MG TAB PO SCH (09:05)
[2016-12-20] MEDS: HEPARIN 5,000 UNIT/0.5 ML VIAL SC SCH ×2 (09:10→20:57)
--- NOTE | 2016-12-20 13:26 | PN ---
Date/Time of Note Date/Time of Note DATE: 12/20/16 TIME: 13:25 Assessment/Plan Lines/Catheters IV Catheter Type (from Nrsg): PICC Line Mccray in Place (from Nrsg): Yes Assessment/Plan Chief Complaint/Hosp Course CAD, status post non-ST elevation [place] History of lice Cardiomyopathy with ejection fraction 25% Respiratory failure Patient is not a candidate to undergo coronary artery bypass grafting at this time Still on BIPAP FiO2 of 40% Would continue medical management Diuretics Plan for possible coronary artery bypass grafting when medically more stable Problems: Subjective 24 Hr Interval Summary Constitutional: improved Pain Control: mild Exam/Review of Systems Vital Signs Vitals Vital Signs Date Time Temp Pulse Resp B/P Pulse Ox O2 Delivery O2 Flow Rate FiO2 12/20/16 12:00 Nasal Cannula 4.0 12/20/16 12:00 98.0 96 26 97/46 99 12/20/16 07:06 45 Intake and Output 12/19/16 12/19/16 12/20/16 15:00 23:00 07:00 Intake Total 50 ml Output Total 220 ml 480 ml 180 ml Balance -170 ml -480 ml -180 ml Exam Eyes: EOMI, nl conjunctiva, nl lids, nl sclera ENMT: mucosa pink and moist, nl external ears & nose, nl lips & teeth, nl nasal mucosa & septum Neck: non-tender, supple Respiratory: clear to auscultation, normal air movement Cardiovascular: nl pulses, regular rate and rhythm Gastrointestinal: nl liver, spleen, non-tender, soft Results Result Diagram: 12/20/16 0545 12/20/16 0545 CHELA ALVARENGA MD Dec 20, 2016 13:26
--- NOTE | 2016-12-20 13:58 | RADRPT ---
PROCEDURE: XR Chest. CLINICAL INDICATION: Shortness of breath. TECHNIQUE: Single frontal view. COMPARISON: 12/19/2016. FINDINGS: The nasogastric tube and right arm PICC line remain in satisfactory position. Right basilar pneumon ia is unchanged. The lungs are otherwise clear. The heart size is normal. There is no pleural effusion. There is no pneumothorax. IMPRESSION: 1. No change from 12/19/2016. RPTAT: QQ .Alonso Brooks MD, MD Date Time Electronically viewed and signed by .Alonso Brooks MD, MD on 12/20/2016 13:58 .R/
--- NOTE | 2016-12-20 15:54 | CONS ---
Date/Time of Note Date/Time of Note DATE: 12/20/16 TIME: 15:53 Assessment/Plan Assessment/Plan Chief Complaint/Hosp Course Acute events overnight per report. Patient is awake, denies pain, looks comfortable Temperature 98 pulse 96 respirations 26 blood pressure 97/43 saturation 99 on 4 L WBC 25.4 H&H 11.2 and 36.3 platelets 589 neutrophils 88.5 BUN 35 creatinine 0.60 Microbiology urine culture grew Mandy albicans on admission blood cultures remain negative Chest x-ray this morning revealed right basilar pneumonia that is unchanged Indwelling's: Right upper extremity PICC line, NG tube, Mccray. Antibiotics: Cefepime Cancidas Physical examination: Well-developed chronically ill-appearing older looking 56- year-old woman who is awake in no distress. Head atraumatic normocephalic sclera nonicteric. Bugle mucosa pink dry neck is supple chest rise symmetrical breath sounds clear, diminished basis. Heart S1-S2. Abdomen soft bowel tones present. Extremities without cyanosis. Assessment: 1. Persistent leukocytosis likely secondary to pneumonia, possibly reactive 2. Fungal UTI 3. Non-ST elevation IA/cardiomyopathy with ejection fraction 25% 4. Status post respiratory failure 5. Dysphasia 6. Head lies status post treatment 7. Dysphasia, continue NG tube feedings Plan: Hemodynamically stable, continue antibiotics, continue anti-aspiration measures, monitor white blood cell count. Plan for CABG [facility] staff Problems: Consultation Date/Type/Reason Admit Date/Time Dec 10, 2016 at 16:55 Initial Consult Date 12/12/16 Type of Consultation: ID Referring Provider: ROBEL PETTY MD Exam/Review of Systems Vital Signs Vitals Vital Signs Date Time Temp Pulse Resp B/P Pulse Ox O2 Delivery O2 Flow Rate FiO2 12/20/16 14:03 98 4.0 12/20/16 14:03 91 24 Nasal Cannula 12/20/16 14:00 95/44 12/20/16 12:00 98.0 12/20/16 07:06 45 Intake and Output 12/19/16 12/19/16 12/20/16 15:00 23:00 07:00 Intake Total 50 ml Output Total 220 ml 480 ml 180 ml Balance -170 ml -480 ml -180 ml Results Result Diagram: 12/20/16 0545 12/20/16 0545 Results 24 hrs Laboratory Tests Test 12/19/16:02 12/19/16 21:22 12/20/16 01:14 12/20/16 05:45 Bedside Glucose 227 H 204 190 White Blood Count 25.4 H Red Blood Count 3.75 L Hemoglobin 11.2 L Hematocrit 36.3 L Mean Corpuscular Volume 96.8 Mean Corpuscular Hemoglobin 29.9 Mean Corpuscular Hemoglobin Concent 30.9 L Red Cell Distribution Width 14.2 Platelet Count 589 H Mean Platelet Volume 10.8 H Neutrophils % 88.5 H Lymphocytes % 3.9 L Monocytes % 5.8 Eosinophils % 0.3 Basophils % 0.4 Nucleated Red Blood Cells % 0.0 Neutrophils # 22.5 H Lymphocytes # 1.0 Monocytes # 1.5 H Eosinophils # 0.1 Basophils # 0.1 Nucleated Red Blood Cells # 0.0 Sodium Level 151 H Potassium Level 3.1 L Chloride Level 101 Carbon Dioxide Level 39 H Anion Gap 14 Blood Urea Nitrogen 35 H Creatinine 0.60 Glucose Level 207 Calcium Level 9.5 Test 12/20/16 06:01 12/20/16 09:20 12/20/16 12:59 Bedside Glucose 155 224 H 194 Medications Medications Current Medications Aspirin (Halfprin) 81 mg DAILY PO Last administered on 12/20/16 09:05; Admin Dose 81 MG; Start 12/11/16 at 09:00 Atorvastatin Calcium (Lipitor) 20 mg HS PO Last administered on 12/19/16 22:34 ; Admin Dose 20 MG; Start 12/10/16 at 21:00 Duloxetine HCl (Cymbalta) 20 mg DAILY PO Last administered on 12/20/16 09:03; Admin Dose 20 MG; Start 12/11/16 at 09:00 Gabapentin (Neurontin) 300 mg TID PO Last administered on 12/20/16 13:19; Admin Dose 300 MG; Start 12/10/16 at 21:00 Metoprolol Tartrate (Lopressor) 12.5 mg BID PO Last administered on 12/18/16 10 :20; Admin Dose 12.5 MG; Start 12/10/16 at 21:00 Ticagrelor (Brilinta) 90 mg BID PO Last administered on 12/20/16 09:04; Admin Dose 90 MG; Start 12/10/16 at 21:00 Levothyroxine Sodium (Synthroid) 112 mcg DAILY@06 PO Last administered on 06:05; Admin Dose 112 MCG; Start 12/11/16 at 06:00 Insulin Aspart (Novolog Insulin Pen) NOVOLOG *MODERATE* ALGORI... Q4 SC Last administered on 12/20/16 13:20; Admin Dose 4 UNIT; Start 12/10/16 at 21:00 Miscellaneous Information 1 ea NOTE XX ; Start 12/10/16 at 18:30 Glucose (Glutose) 15 gm Q15M PRN PO DECREASED GLUCOSE; Start 12/10/16 at 18:30 Glucose (Glutose) 22.5 gm Q15M PRN PO DECREASED GLUCOSE; Start 12/10/16 at 18: 30 Dextrose (D50w Syringe) 25 ml Q15M PRN IV DECREASED GLUCOSE Last administered on 12/13/16 13:10; Admin Dose 25 ML; Start 12/10/16 at 18:30 Dextrose (D50w Syringe) 50 ml Q15M PRN IV DECREASED GLUCOSE; Start 12/10/16 at 18:30 Glucagon (Glucagen) 1 mg Q15M PRN IM DECREASED GLUCOSE; Start 12/10/16 at 18:30 Glucose (Glutose) 15 gm Q15M PRN BUCCAL DECREASED GLUCOSE; Start 12/10/16 at 18 :30 Acetaminophen 650 mg 650 mg Q6H PRN NGT PAIN AND OR ELEVATED TEMP Last administered on 12/19/16 22:35; Admin Dose 650 MG; Start 12/10/16 at 21:00 Norepinephrine/ Dextrose (Levophed/D5W) 500 ml @ 1.87 mls/hr TITRATE IV Last administered on 12/11/16 00:20; Admin Dose 3.75 MLS/HR; Start 12/10/16 at 23:30 Acetaminophen (Tylenol Tab) 650 mg Q4H PRN PO NON-CARDIAC PAIN LEVEL (1-3); Start 12/11/16 at 13:00 Morphine Sulfate (morphine) 2 mg Q2H PRN IV FOR NON CARDIAC PAIN (4-10) Last administered on 12/15/16 10:33; Admin Dose 2 MG; Start 12/11/16 at 13:00 Al Hydrox/Mg Hydrox/Simethicone (Mag-Al Plus) 30 ml Q4H PRN PO GASTROINTESTINAL UPSET; Start 12/11/16 at 13:00 Ondansetron HCl (Zofran Inj) 4 mg Q4H PRN IV NAUSEA AND/OR VOMITING; Start at 13:00 Senna/Docusate Sodium (Senokot-S) 2 tab HS NGT Last administered on 12/19/16 22 :34; Admin Dose 2 TAB; Start 12/15/16 at 21:00 Insulin Glargine (Lantus) 15 unit DAILY@20 SC Last administered on 12/19/16 21: 26; Admin Dose 15 UNIT; Start 12/16/16 at 20:00 Lisinopril (Zestril) 2.5 mg DAILY PO Last administered on 12/18/16 10:26; Admin Dose 2.5 MG; Start 12/18/16 at 09:00 Heparin Sodium (Porcine) (Heparin (5000 Units/0.5 ml)) 5,000 unit BID SC Last administered on 12/20/16 09:10; Admin Dose 5,000 UNIT; Start 12/17/16 at 21:00 Famotidine 20 mg 20 mg HS PO Last administered on 12/19/16 22:35; Admin Dose 20 MG; Start 12/17/16 at 21:00 Caspofungin 50 mg/ Sodium Chloride 250 ml @ 250 mls/hr Q24H IVPB Last administered on 12/19/16 18:21; Admin Dose 250 MLS/HR; Start 12/19/16 at 18:00 Cefepime HCl (Maxipime 1gm/50 ml (Pmx)) 50 ml @ 100 mls/hr Q12 IVPB Last administered on 12/20/16 09:03; Admin Dose 100 MLS/HR; Start 12/19/16 at 21:00 DANYELLE ROSSI NP Dec 20, 2016 15:54
--- NOTE | 2016-12-20 16:05 | CONS ---
Date/Time of Note Date/Time of Note DATE: 12/20/16 TIME: 16:03 Consult Date/Type/Reason Admit Date/Time Dec 10, 2016 at 16:55 Initial Consult Date 12/12/16 Type of Consultation: Pulm/CCM Ordering Provider: ROBEL PETTY MD Subjective Titrated off BIPAP Objective Vital Signs Date Time Temp Pulse Resp B/P Pulse Ox O2 Delivery O2 Flow Rate FiO2 12/20/16 14:03 98 4.0 12/20/16 14:03 91 24 Nasal Cannula 12/20/16 14:00 95/44 12/20/16 12:00 98.0 12/20/16 07:06 45 Intake and Output 12/19/16 12/19/16 12/20/16 14:59 22:59 06:59 Intake Total 50 ml Output Total 220 ml 480 ml 180 ml Balance -170 ml -480 ml -180 ml Exam HEENT: Neck supple; no JVD; no LAD CVS: RRR, S1 and S2 CHEST: Bibasilar rales ABD: Soft, NT, + BS EXT: No c/c/e Results/Medications Result Diagram: 12/20/16 0545 12/20/16 0545 Results 24 hrs Laboratory Tests Test 12/19/16 17:02 12/19/16 21:22 12/20/16 01:14 12/20/16 05:45 Bedside Glucose 227 H 204 190 White Blood Count 25.4 H Red Blood Count 3.75 L Hemoglobin 11.2 L Hematocrit 36.3 L Mean Corpuscular Volume 96.8 Mean Corpuscular Hemoglobin 29.9 Mean Corpuscular Hemoglobin Concent 30.9 L Red Cell Distribution Width 14.2 Platelet Count 589 H Mean Platelet Volume 10.8 H Neutrophils % 88.5 H Lymphocytes % 3.9 L Monocytes % 5.8 Eosinophils % 0.3 Basophils % 0.4 Nucleated Red Blood Cells % 0.0 Neutrophils # 22.5 H Lymphocytes # 1.0 Monocytes # 1.5 H Eosinophils # 0.1 Basophils # 0.1 Nucleated Red Blood Cells # 0.0 Sodium Level 151 H Potassium Level 3.1 L Chloride Level 101 Carbon Dioxide Level 39 H Anion Gap 14 Blood Urea Nitrogen 35 H Creatinine 0.60 Glucose Level 207 Calcium Level 9.5 Test 12/20/16 06:01 12/20/16 09:20 12/20/16 12:59 Bedside Glucose 155 224 H 194 Medications Current Medications Aspirin (Halfprin) 81 mg DAILY PO Last administered on 12/20/16 09:05; Admin Dose 81 MG; Start 12/11/16 at 09:00 Atorvastatin Calcium (Lipitor) 20 mg HS PO Last administered on 12/19/16 22:34 ; Admin Dose 20 MG; Start 12/10/16 at 21:00 Duloxetine HCl (Cymbalta) 20 mg DAILY PO Last administered on 12/20/16 09:03; Admin Dose 20 MG; Start 12/11/16 at 09:00 Gabapentin (Neurontin) 300 mg TID PO Last administered on 12/20/16 13:19; Admin Dose 300 MG; Start 12/10/16 at 21:00 Metoprolol Tartrate (Lopressor) 12.5 mg BID PO Last administered on 12/18/16 10 :20; Admin Dose 12.5 MG; Start 12/10/16 at 21:00 Ticagrelor (Brilinta) 90 mg BID PO Last administered on 12/20/16 09:04; Admin Dose 90 MG; Start 12/10/16 at 21:00 Levothyroxine Sodium (Synthroid) 112 mcg DAILY@06 PO Last administered on 06:05; Admin Dose 112 MCG; Start 12/11/16 at 06:00 Insulin Aspart (Novolog Insulin Pen) NOVOLOG *MODERATE* ALGORI... Q4 SC Last administered on 12/20/16 13:20; Admin Dose 4 UNIT; Start 12/10/16 at 21:00 Miscellaneous Information 1 ea NOTE XX ; Start 12/10/16 at 18:30 Glucose (Glutose) 15 gm Q15M PRN PO DECREASED GLUCOSE; Start 12/10/16 at 18:30 Glucose (Glutose) 22.5 gm Q15M PRN PO DECREASED GLUCOSE; Start 12/10/16 at 18: 30 Dextrose (D50w Syringe) 25 ml Q15M PRN IV DECREASED GLUCOSE Last administered on 12/13/16 13:10; Admin Dose 25 ML; Start 12/10/16 at 18:30 Dextrose (D50w Syringe) 50 ml Q15M PRN IV DECREASED GLUCOSE; Start 12/10/16 at 18:30 Glucagon (Glucagen) 1 mg Q15M PRN IM DECREASED GLUCOSE; Start 12/10/16 at 18:30 Glucose (Glutose) 15 gm Q15M PRN BUCCAL DECREASED GLUCOSE; Start 12/10/16 at 18 :30 Acetaminophen 650 mg 650 mg Q6H PRN NGT PAIN AND OR ELEVATED TEMP Last administered on 12/19/16 22:35; Admin Dose 650 MG; Start 12/10/16 at 21:00 Norepinephrine/ Dextrose (Levophed/D5W) 500 ml @ 1.87 mls/hr TITRATE IV Last administered on 12/11/16 00:20; Admin Dose 3.75 MLS/HR; Start 12/10/16 at 23:30 Acetaminophen (Tylenol Tab) 650 mg Q4H PRN PO NON-CARDIAC PAIN LEVEL (1-3); Start 12/11/16 at 13:00 Morphine Sulfate (morphine) 2 mg Q2H PRN IV FOR NON CARDIAC PAIN (4-10) Last administered on 12/15/16 10:33; Admin Dose 2 MG; Start 12/11/16 at 13:00 Al Hydrox/Mg Hydrox/Simethicone (Mag-Al Plus) 30 ml Q4H PRN PO GASTROINTESTINAL UPSET; Start 12/11/16 at 13:00 Ondansetron HCl (Zofran Inj) 4 mg Q4H PRN IV NAUSEA AND/OR VOMITING; Start at 13:00 Senna/Docusate Sodium (Senokot-S) 2 tab HS NGT Last administered on 12/19/16 22 :34; Admin Dose 2 TAB; Start 12/15/16 at 21:00 Insulin Glargine (Lantus) 15 unit DAILY@20 SC Last administered on 12/19/16 21: 26; Admin Dose 15 UNIT; Start 12/16/16 at 20:00 Lisinopril (Zestril) 2.5 mg DAILY PO Last administered on 12/18/16 10:26; Admin Dose 2.5 MG; Start 12/18/16 at 09:00 Heparin Sodium (Porcine) (Heparin (5000 Units/0.5 ml)) 5,000 unit BID SC Last administered on 12/20/16 09:10; Admin Dose 5,000 UNIT; Start 12/17/16 at 21:00 Famotidine 20 mg 20 mg HS PO Last administered on 12/19/16 22:35; Admin Dose 20 MG; Start 12/17/16 at 21:00 Caspofungin 50 mg/ Sodium Chloride 250 ml @ 250 mls/hr Q24H IVPB Last administered on 12/19/16 18:21; Admin Dose 250 MLS/HR; Start 12/19/16 at 18:00 Cefepime HCl (Maxipime 1gm/50 ml (Pmx)) 50 ml @ 100 mls/hr Q12 IVPB Last administered on 12/20/16 09:03; Admin Dose 100 MLS/HR; Start 12/19/16 at 21:00 Assessment/Plan Additional Assessment/Plan IMP: 1. s/p NSTEMI 2. Resp Failure--due to pulm edema now extubated on nasal cannula oxygen with intermittent BiPAP 3. AMS-resolved likely toxic metabolic encephalopathy 4. Anemia 5. Significant leukocytosis, RECS: 1. Diuresis 2. Continue BiPAP as needed 3. Hold all sedation 4. Am labs/CXR 5. Adequate pain control. 6. DVT and GI prophylaxis 7. F/U Cx's 35 min cc time SABINE NORTON MD Dec 20, 2016 16:05
[2016-12-20] MEDS: CASPOFUNGIN 50 MG in SOD CHLORIDE 0.9% 250 ML IVPB SCH (17:11)
--- NOTE | 2016-12-20 18:00 | PN ---
Date/Time of Note Date/Time of Note DATE: 12/20/16 TIME: 17:58 Assessment/Plan VTE Prophylaxis VTE Prophylaxis Intervention: LMWH Lines/Catheters IV Catheter Type (from Nrsg): PICC Line Central line still needed: Yes (IV access) Urinary Cath still in place: Yes Reason Cath still needed: skin wounds contaminated by urine Assessment/Plan Chief Complaint/Hosp Course S: 12/20: Off BiPAP since this morning. Thirsty.. Failed swallow eval. O: Vital signs stable, except hypoxia PE No pallor/JVD. Reg, no m/r/g Diminished bs bilaterally. Bs dimin, nt nd, no RR G No edema A/P 1. Acute respiratory failure, mod stable cont o2. Extubated. Once off BiPAP transfer to telemetry. 2. NSTEMI. Sp cath -s/p LHC w patent RCA stents and high grade disease of LAD/ LCX w small caliber vessels. CABG if stable. 3. Ischemic cmy EF 25%. Cont medical management. 4. DKA resolved. 4. Chr type 2 DM; a1c= 9.1 6. Chr hypothyroidism 7. Tobacco abuse; offer patch 7. Deconditioning; PT may need snf. 9. Nephrolithiasis; cholelithiasis 10. Lice 11. Fungal cystitis 12. Adjustment disorder. [place] stress[place]? 13. Dysphagia, continue ST 14. Fever/leukocytosis. Possible aspiration pneumonia. 15. Hypernatremia. Free water feeds started. Problems: Exam/Review of Systems Vital Signs Vitals Vital Signs Date Time Temp Pulse Resp B/P Pulse Ox O2 Delivery O2 Flow Rate FiO2 12/20/16 17:41 96 3.0 12/20/16 17:00 97 26 104/45 Nasal Cannula 12/20/16 16:00 98.0 12/20/16 07:06 45 Intake and Output 12/19/16 12/19/16 12/20/16 15:00 23:00 07:00 Intake Total 50 ml Output Total 220 ml 480 ml 180 ml Balance -170 ml -480 ml -180 ml Results Result Diagram: 12/20/16 0545 12/20/16 0545 Results 24 hrs Laboratory Tests Test 12/19/16 21:22 12/20/16 01:14 12/20/16 05:45 12/20/16 06:01 Bedside Glucose 204 190 155 White Blood Count 25.4 H Red Blood Count 3.75 L Hemoglobin 11.2 L Hematocrit 36.3 L Mean Corpuscular Volume 96.8 Mean Corpuscular Hemoglobin 29.9 Mean Corpuscular Hemoglobin Concent 30.9 L Red Cell Distribution Width 14.2 Platelet Count 589 H Mean Platelet Volume 10.8 H Neutrophils % 88.5 H Lymphocytes % 3.9 L Monocytes % 5.8 Eosinophils % 0.3 Basophils % 0.4 Nucleated Red Blood Cells % 0.0 Neutrophils # 22.5 H Lymphocytes # 1.0 Monocytes # 1.5 H Eosinophils # 0.1 Basophils # 0.1 Nucleated Red Blood Cells # 0.0 Sodium Level 151 H Potassium Level 3.1 L Chloride Level 101 Carbon Dioxide Level 39 H Anion Gap 14 Blood Urea Nitrogen 35 H Creatinine 0.60 Glucose Level 207 Calcium Level 9.5 Test 12/20/16 09:20 12/20/16 12:59 12/20/16 17:24 Bedside Glucose 224 H 194 190 Medications Medications Current Medications Aspirin (Halfprin) 81 mg DAILY PO Last administered on 12/20/16 09:05; Admin Dose 81 MG; Start 12/11/16 at 09:00 Atorvastatin Calcium (Lipitor) 20 mg HS PO Last administered on 12/19/16 22:34 ; Admin Dose 20 MG; Start 12/10/16 at 21:00 Duloxetine HCl (Cymbalta) 20 mg DAILY PO Last administered on 12/20/16 09:03; Admin Dose 20 MG; Start 12/11/16 at 09:00 Gabapentin (Neurontin) 300 mg TID PO Last administered on 12/20/16 13:19; Admin Dose 300 MG; Start 12/10/16 at 21:00 Metoprolol Tartrate (Lopressor) 12.5 mg BID PO Last administered on 12/18/16 10 :20; Admin Dose 12.5 MG; Start 12/10/16 at 21:00 Ticagrelor (Brilinta) 90 mg BID PO Last administered on 12/20/16 09:04; Admin Dose 90 MG; Start 12/10/16 at 21:00 Levothyroxine Sodium (Synthroid) 112 mcg DAILY@06 PO Last administered on 06:05; Admin Dose 112 MCG; Start 12/11/16 at 06:00 Insulin Aspart (Novolog Insulin Pen) NOVOLOG *MODERATE* ALGORI... Q4 SC Last administered on 12/20/16 17:27; Admin Dose 4 UNIT; Start 12/10/16 at 21:00 Miscellaneous Information 1 ea NOTE XX ; Start 12/10/16 at 18:30 Glucose (Glutose) 15 gm Q15M PRN PO DECREASED GLUCOSE; Start 12/10/16 at 18:30 Glucose (Glutose) 22.5 gm Q15M PRN PO DECREASED GLUCOSE; Start 12/10/16 at 18: 30 Dextrose (D50w Syringe) 25 ml Q15M PRN IV DECREASED GLUCOSE Last administered on 12/13/16 13:10; Admin Dose 25 ML; Start 12/10/16 at 18:30 Dextrose (D50w Syringe) 50 ml Q15M PRN IV DECREASED GLUCOSE; Start 12/10/16 at 18:30 Glucagon (Glucagen) 1 mg Q15M PRN IM DECREASED GLUCOSE; Start 12/10/16 at 18:30 Glucose (Glutose) 15 gm Q15M PRN BUCCAL DECREASED GLUCOSE; Start 12/10/16 at 18 :30 Acetaminophen 650 mg 650 mg Q6H PRN NGT PAIN AND OR ELEVATED TEMP Last administered on 12/19/16 22:35; Admin Dose 650 MG; Start 12/10/16 at 21:00 Norepinephrine/ Dextrose (Levophed/D5W) 500 ml @ 1.87 mls/hr TITRATE IV Last administered on 12/11/16 00:20; Admin Dose 3.75 MLS/HR; Start 12/10/16 at 23:30 Acetaminophen (Tylenol Tab) 650 mg Q4H PRN PO NON-CARDIAC PAIN LEVEL (1-3); Start 12/11/16 at 13:00 Morphine Sulfate (morphine) 2 mg Q2H PRN IV FOR NON CARDIAC PAIN (4-10) Last administered on 12/15/16 10:33; Admin Dose 2 MG; Start 12/11/16 at 13:00 Al Hydrox/Mg Hydrox/Simethicone (Mag-Al Plus) 30 ml Q4H PRN PO GASTROINTESTINAL UPSET; Start 12/11/16 at 13:00 Ondansetron HCl (Zofran Inj) 4 mg Q4H PRN IV NAUSEA AND/OR VOMITING; Start at 13:00 Senna/Docusate Sodium (Senokot-S) 2 tab HS NGT Last administered on 12/19/16 22 :34; Admin Dose 2 TAB; Start 12/15/16 at 21:00 Insulin Glargine (Lantus) 15 unit DAILY@20 SC Last administered on 12/19/16 21: 26; Admin Dose 15 UNIT; Start 12/16/16 at 20:00 Lisinopril (Zestril) 2.5 mg DAILY PO Last administered on 12/18/16 10:26; Admin Dose 2.5 MG; Start 12/18/16 at 09:00 Heparin Sodium (Porcine) (Heparin (5000 Units/0.5 ml)) 5,000 unit BID SC Last administered on 12/20/16 09:10; Admin Dose 5,000 UNIT; Start 12/17/16 at 21:00 Famotidine 20 mg 20 mg HS PO Last administered on 12/19/16 22:35; Admin Dose 20 MG; Start 12/17/16 at 21:00 Caspofungin 50 mg/ Sodium Chloride 250 ml @ 250 mls/hr Q24H IVPB Last administered on 12/20/16 17:11; Admin Dose 250 MLS/HR; Start 12/19/16 at 18:00 Cefepime HCl (Maxipime 1gm/50 ml (Pmx)) 50 ml @ 100 mls/hr Q12 IVPB Last administered on 12/20/16 09:03; Admin Dose 100 MLS/HR; Start 12/19/16 at 21:00 REJI HUDSON MD Dec 20, 2016 18:00
[2016-12-20] MEDS ORDERED: POTASSIUM CHLORIDE 20 MEQ POWDER FOR ORAL SOLN NGT ONE (18:30)
[2016-12-20] MEDS: FAMOTIDINE 20 MG TAB PO SCH (20:43)
[2016-12-20] MEDS: ATORVASTATIN 20 MG TAB PO SCH (20:43)
[2016-12-20] MEDS: SENNA/DOCUSATE NA (8.6MG/50MG) TAB NGT SCH (20:44)
[2016-12-20] MEDS: INSULIN GLARGINE [LANtus] 3 ML PEN SC SCH (20:59)
[2016-12-21] VITALS (22 sets, daily range): BP systolic 58–116; BP diastolic 31–55; PULSE 89–108; RESP 16–33
[2016-12-21] MEDS: ALBUTEROL/IPRATROPIUM (NEB) 3 ML AMP HHN SCH ×4 (01:40→20:03)
[2016-12-21] MEDS: INSULIN ASPART [NOVOLOG] 3 ML PEN SC SCH ×6 (01:54→20:34)
[2016-12-21 04:41] LABS: ADD SCAN DIFF NO
[2016-12-21 04:53] LABS: BASOPHIL # 0.1 10^3/ul (0.0-0.1); BASOPHILS % 0.6 % (0.0-2.0); EOSINOPHILS # 0.3 10^3/ul (0.0-0.5); EOSINOPHILS % 1.5 % (0.0-7.0); HEMATOCRIT 36.7 % (37.0-47.0); HEMOGLOBIN 11.4 g/dl (12.0-16.0); LYMPHOCYTES # 1.1 10^3/ul (0.8-2.9); LYMPHOCYTES % 5.2 % (15.0-51.0); MEAN CORPUSCULAR HEMOGLOBIN 30.3 pg (29.0-33.0); MEAN CORPUSCULAR HGB CONC 31.1 g/dl (32.0-37.0); MEAN CORPUSCULAR VOLUME 97.6 fl (82.0-101.0); MEAN PLATELET VOLUME 10.9 fl (7.4-10.4); MONOCYTE # 1.1 10^3/ul (0.3-0.9); MONOCYTES % 5.1 % (0.0-11.0); NEUTROPHIL # 18.4 10^3/ul (1.6-7.5); NEUTROPHILS % 86.9 % (39.0-77.0); PLATELET COUNT 614 10^3/UL (140-415); RED BLOOD COUNT 3.76 10^6/ul (4.20-5.40); RED CELL DISTRIBUTION WIDTH 14.2 % (11.5-14.5); WHITE BLOOD COUNT 21.2 10^3/ul (4.8-10.8)
[2016-12-21 05:09] LABS: CALCIUM 9.4 mg/dl (8.4-10.2); CREATININE 0.57 mg/dl (0.44-1.00); MAGNESIUM 2.3 mg/dl (1.7-2.5); PHOSPHORUS 2.5 mg/dl (2.5-4.9); POTASSIUM 3.2 mmol/L (3.5-5.1)
[2016-12-21] MEDS: FUROSEMIDE 20 MG INJ IV SCH ×2 (06:14→17:33)
[2016-12-21] MEDS: LEVOTHYROXINE 112 MCG TAB PO SCH (06:14)
[2016-12-21 07:47] LABS: AADO2 Arterial 73.8 mmHg (7.0-24.0); Allen Test ACCEPTAB; Arterial Base Excess 10.1 mmol/L (-3.0-3); Arterial COHb 0.4 % (0.0-3.0); Arterial Fraction of Oxyhgb 96.2 % (93.0-99.0); Arterial HCO3 34.5 mmol/L (22.0-26.0); Arterial MetHb 0.3 % (0.0-1.5); Arterial Total Hemglobin 14.3 g/dl (12.0-18.0); MODE NASAL CANNULA
[2016-12-21] MEDS: CEFEPIME 1GM/50 ML (PMX) 50 ML IVPB SCH ×2 (08:48→20:34)
[2016-12-21] MEDS: LISINOPRIL 5 MG TAB PO SCH (08:48)
[2016-12-21] MEDS: GABAPENTIN 300 MG CAP PO SCH ×3 (08:48→20:34)
--- NOTE | 2016-12-21 08:48 | CONS ---
Date/Time of Note Date/Time of Note DATE: 12/21/16 TIME: 08:44 Assessment/Plan Assessment/Plan Chief Complaint/Hosp Course IMP: 1.NSTEMI-peak trop>60 Now dowtrended significantly s/p LHC with patent RCA stents and high grade disease of LAD/LCX with small caliber vessels and recc for CABG 2.cardiomyopathy-LVEF 40-45 BY OSH echo. 25% by echo read here 3.Hypotension-improved off of pressors and stable 4.resp failure s/p extubation requiring PRN BIPAP 5.anemia 6. AMS/encephalopathy 7. PNA Recc: -Tele -Follow BP closely and continue low dose BB/ACEI as tolerated only -Continue asa/brilinta -Continue statin -Follow volume status closely and continue lasix diuresis as tolerated -check BNP -Smoking cessation -Follow BS closely -CT surgical eval ongoing and have discussed with daughter who is agreeable Problems: Consultation Date/Type/Reason Admit Date/Time Dec 10, 2016 at 16:55 Initial Consult Date 12/12/16 Type of Consultation: cardiology Reason for Consultation CHF/NSTEMI/cardiomyopathy Referring Provider: ROBEL PETTY MD Exam/Review of Systems Vital Signs Vitals Vital Signs Date Time Temp Pulse Resp B/P Pulse Ox O2 Delivery O2 Flow Rate FiO2 12/21/16 08:02 101 23 98 Nasal Cannula 3.0 12/21/16 08:00 99.2 112/50 12/20/16 07:06 45 Intake and Output 12/20/16 12/20/16 12/21/16 15:00 23:00 07:00 Intake Total 460 ml 40 ml 460 ml Output Total 350 ml 110 ml 700 ml Balance 110 ml -70 ml -240 ml Exam Review of Systems: CONSTITUTIONAL: No fevers, chills. PULMONARY: mild sob CARDIOVASCULAR: No chest pain/palpitations GASTROINTESTINAL: No nausea/vomiting. GENITOURINARY: No hematuria/dysuria. MUSCULOSKELETAL: No myagias/arthalgias. PSYCHIATRIC: No documented depression. NEUROLOGIC: somewhat lethargic Constitutional: alert Psych: no complaints Head: normocephalic ENMT: mucosa pink and moist Neck: jvd (9 cm water), supple Respiratory: diminished breath sounds (R>L base) Cardiovascular: regular rate and rhythm Gastrointestinal: non-tender, soft Musculoskeletal: muscle tone (normal) Extremities: edema (none) 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: lethargic Results Result Diagram: 12/21/16 0315 12/21/16 0315 Results 24 hrs Laboratory Tests Test 12/20/16 09:20 12/20/16 12:59 12/20/16 17:24 12/20/16 20:57 Bedside Glucose 224 H 194 190 199 Test 12/21/16 01:43 12/21/16 03:15 12/21/16 05:00 12/21/16 05:56 Bedside Glucose 242 H 257 H White Blood Count 21.2 H Red Blood Count 3.76 L Hemoglobin 11.4 L Hematocrit 36.7 L Mean Corpuscular Volume 97.6 Mean Corpuscular Hemoglobin 30.3 Mean Corpuscular Hemoglobin Concent 31.1 L Red Cell Distribution Width 14.2 Platelet Count 614 H Mean Platelet Volume 10.9 H Neutrophils % 86.9 H Lymphocytes % 5.2 L Monocytes % 5.1 Eosinophils % 1.5 Basophils % 0.6 Nucleated Red Blood Cells % 0.0 Neutrophils # 18.4 H Lymphocytes # 1.1 Monocytes # 1.1 H Eosinophils # 0.3 Basophils # 0.1 Nucleated Red Blood Cells # 0.0 Sodium Level 150 H Potassium Level 3.2 L Chloride Level 102 Carbon Dioxide Level 37 H Anion Gap 14 Blood Urea Nitrogen 34 H Creatinine 0.57 Glucose Level 257 H Calcium Level 9.4 Phosphorus Level 2.5 Magnesium Level 2.3 Blood Gas Specimen Source Blood arterial Arterial Blood Date Drawn 12/21/2016 4:24:09 AM Arterial Blood pH (Temp corrected) 7.504 H Arterial Blood pCO2 (Temp correct) 44.8 Arterial Blood pO2 (Temp corrected) 87.5 Arterial Blood HCO3 34.5 H Arterial Blood Base Excess 10.1 H Arterial Blood Oxygen Saturation 96.9 Miguel Test ACCEPTAB Arterial Blood Gas Puncture Site Right Radial Arterial Blood Carboxyhemoglobin 0.4 Arterial Blood Methemoglobin 0.3 Blood Gas A-a O2 Differential 73.8 H Oxyhemoglobin Percent 96.2 Total Hemoglobin 14.3 Blood Gas Temperature 37.0 Blood Gas Modality NASAL CANNULA FiO2 30.0 Blood Gas Notified Whom LW Blood Gas Notified Time 12/21/2016 4:34:53 AM Test 12/21/16 07:54 Bedside Glucose 294 H Medications Medications Current Medications Aspirin (Halfprin) 81 mg DAILY PO Last administered on 12/20/16 09:05; Admin Dose 81 MG; Start 12/11/16 at 09:00 Atorvastatin Calcium (Lipitor) 20 mg HS PO Last administered on 12/20/16 20:43 ; Admin Dose 20 MG; Start 12/10/16 at 21:00 Duloxetine HCl (Cymbalta) 20 mg DAILY PO Last administered on 12/20/16 09:03; Admin Dose 20 MG; Start 12/11/16 at 09:00 Gabapentin (Neurontin) 300 mg TID PO Last administered on 12/20/16 20:43; Admin Dose 300 MG; Start 12/10/16 at 21:00 Metoprolol Tartrate (Lopressor) 12.5 mg BID PO Last administered on 12/18/16 10 :20; Admin Dose 12.5 MG; Start 12/10/16 at 21:00 Ticagrelor (Brilinta) 90 mg BID PO Last administered on 12/20/16 20:56; Admin Dose 90 MG; Start 12/10/16 at 21:00 Levothyroxine Sodium (Synthroid) 112 mcg DAILY@06 PO Last administered on 06:14; Admin Dose 112 MCG; Start 12/11/16 at 06:00 Insulin Aspart (Novolog Insulin Pen) NOVOLOG *MODERATE* ALGORI... Q4 SC Last administered on 12/21/16 06:21; Admin Dose 6 UNIT; Start 12/10/16 at 21:00 Miscellaneous Information 1 ea NOTE XX ; Start 12/10/16 at 18:30 Glucose (Glutose) 15 gm Q15M PRN PO DECREASED GLUCOSE; Start 12/10/16 at 18:30 Glucose (Glutose) 22.5 gm Q15M PRN PO DECREASED GLUCOSE; Start 12/10/16 at 18: 30 Dextrose (D50w Syringe) 25 ml Q15M PRN IV DECREASED GLUCOSE Last administered on 12/13/16 13:10; Admin Dose 25 ML; Start 12/10/16 at 18:30 Dextrose (D50w Syringe) 50 ml Q15M PRN IV DECREASED GLUCOSE; Start 12/10/16 at 18:30 Glucagon (Glucagen) 1 mg Q15M PRN IM DECREASED GLUCOSE; Start 12/10/16 at 18:30 Glucose (Glutose) 15 gm Q15M PRN BUCCAL DECREASED GLUCOSE; Start 12/10/16 at 18 :30 Acetaminophen 650 mg 650 mg Q6H PRN NGT PAIN AND OR ELEVATED TEMP Last administered on 12/19/16 22:35; Admin Dose 650 MG; Start 12/10/16 at 21:00 Norepinephrine/ Dextrose (Levophed/D5W) 500 ml @ 1.87 mls/hr TITRATE IV Last administered on 12/11/16 00:20; Admin Dose 3.75 MLS/HR; Start 12/10/16 at 23:30 Acetaminophen (Tylenol Tab) 650 mg Q4H PRN PO NON-CARDIAC PAIN LEVEL (1-3); Start 12/11/16 at 13:00 Morphine Sulfate (morphine) 2 mg Q2H PRN IV FOR NON CARDIAC PAIN (4-10) Last administered on 12/15/16 10:33; Admin Dose 2 MG; Start 12/11/16 at 13:00 Al Hydrox/Mg Hydrox/Simethicone (Mag-Al Plus) 30 ml Q4H PRN PO GASTROINTESTINAL UPSET; Start 12/11/16 at 13:00 Ondansetron HCl (Zofran Inj) 4 mg Q4H PRN IV NAUSEA AND/OR VOMITING; Start at 13:00 Senna/Docusate Sodium (Senokot-S) 2 tab HS NGT Last administered on 12/20/16 20 :44; Admin Dose 2 TAB; Start 12/15/16 at 21:00 Insulin Glargine (Lantus) 15 unit DAILY@20 SC Last administered on 12/20/16 20: 59; Admin Dose 15 UNIT; Start 12/16/16 at 20:00 Lisinopril (Zestril) 2.5 mg DAILY PO Last administered on 12/18/16 10:26; Admin Dose 2.5 MG; Start 12/18/16 at 09:00 Heparin Sodium (Porcine) (Heparin (5000 Units/0.5 ml)) 5,000 unit BID SC Last administered on 12/20/16 20:57; Admin Dose 5,000 UNIT; Start 12/17/16 at 21:00 Famotidine 20 mg 20 mg HS PO Last administered on 12/20/16 20:43; Admin Dose 20 MG; Start 12/17/16 at 21:00 Caspofungin 50 mg/ Sodium Chloride 250 ml @ 250 mls/hr Q24H IVPB Last administered on 12/20/16 17:11; Admin Dose 250 MLS/HR; Start 12/19/16 at 18:00 Cefepime HCl (Maxipime 1gm/50 ml (Pmx)) 50 ml @ 100 mls/hr Q12 IVPB Last administered on 12/20/16 20:43; Admin Dose 100 MLS/HR; Start 12/19/16 at 21:00 RHONDA PENA Dec 21, 2016 08:47
[2016-12-21] MEDS: METOPROLOL 25 MG TAB PO SCH ×2 (08:49→20:35)
[2016-12-21] MEDS: DULOXETINE 20 MG CAP DR PO SCH (08:49)
[2016-12-21] MEDS: ASPIRIN (EC) 81 MG TAB PO SCH (08:49)
[2016-12-21] MEDS: TICAGRELOR 90 MG TABLET PO SCH ×2 (08:53→20:32)
[2016-12-21] MEDS: HEPARIN 5,000 UNIT/0.5 ML VIAL SC SCH ×2 (08:54→20:33)
--- NOTE | 2016-12-21 14:01 | CONS ---
Date/Time of Note Date/Time of Note DATE: 12/21/16 TIME: 13:59 Consult Date/Type/Reason Admit Date/Time Dec 10, 2016 at 16:55 Initial Consult Date 12/12/16 Type of Consultation: Pulm Ordering Provider: ROBEL PETTY MD Subjective On nasal cannula. Failed swallow evaluation. Objective Vital Signs Date Time Temp Pulse Resp B/P Pulse Ox O2 Delivery O2 Flow Rate FiO2 12/21/16 12:00 90 12/21/16 12:00 98.9 22 98/43 94 Nasal Cannula 3.0 12/20/16 07:06 45 Intake and Output 12/20/16 12/20/16 12/21/16 15:00 23:00 07:00 Intake Total 460 ml 40 ml 460 ml Output Total 350 ml 110 ml 700 ml Balance 110 ml -70 ml -240 ml Exam HEENT: Neck supple; no JVD; no LAD CVS: RRR, S1 and S2 CHEST: Bibasilar rales R > L ABD: Soft, NT, + BS EXT: No c/c/e Results/Medications Result Diagram: 12/21/1631412/21/16314 Results 24 hrs Laboratory Tests Test 12/20/16 17:24 12/20/16 20:57 12/21/16 01:43 12/21/16 03:15 Bedside Glucose 190 199 242 H White Blood Count 21.2 H Red Blood Count 3.76 L Hemoglobin 11.4 L Hematocrit 36.7 L Mean Corpuscular Volume 97.6 Mean Corpuscular Hemoglobin 30.3 Mean Corpuscular Hemoglobin Concent 31.1 L Red Cell Distribution Width 14.2 Platelet Count 614 H Mean Platelet Volume 10.9 H Neutrophils % 86.9 H Lymphocytes % 5.2 L Monocytes % 5.1 Eosinophils % 1.5 Basophils % 0.6 Nucleated Red Blood Cells % 0.0 Neutrophils # 18.4 H Lymphocytes # 1.1 Monocytes # 1.1 H Eosinophils # 0.3 Basophils # 0.1 Nucleated Red Blood Cells # 0.0 Sodium Level 150 H Potassium Level 3.2 L Chloride Level 102 Carbon Dioxide Level 37 H Anion Gap 14 Blood Urea Nitrogen 34 H Creatinine 0.57 Glucose Level 257 H Calcium Level 9.4 Phosphorus Level 2.5 Magnesium Level 2.3 Test 12/21/16 05:00 12/21/16 05:56 12/21/16 07:54 12/21/16 11:57 Blood Gas Specimen Source Blood arterial Arterial Blood Date Drawn 12/21/2016 4:24:09 AM Arterial Blood pH (Temp corrected) 7.504 H Arterial Blood pCO2 (Temp correct) 44.8 Arterial Blood pO2 (Temp corrected) 87.5 Arterial Blood HCO3 34.5 H Arterial Blood Base Excess 10.1 H Arterial Blood Oxygen Saturation 96.9 Miguel Test ACCEPTAB Arterial Blood Gas Puncture Site Right Radial Arterial Blood Carboxyhemoglobin 0.4 Arterial Blood Methemoglobin 0.3 Blood Gas A-a O2 Differential 73.8 H Oxyhemoglobin Percent 96.2 Total Hemoglobin 14.3 Blood Gas Temperature 37.0 Blood Gas Modality NASAL CANNULA FiO2 30.0 Blood Gas Notified Whom LW Blood Gas Notified Time 12/21/2016 4:34:53 AM Bedside Glucose 257 H 294 H 213 Medications Current Medications Aspirin (Halfprin) 81 mg DAILY PO Last administered on 12/21/16 08:49; Admin Dose 81 MG; Start 12/11/16 at 09:00 Atorvastatin Calcium (Lipitor) 20 mg HS PO Last administered on 12/20/16 20:43 ; Admin Dose 20 MG; Start 12/10/16 at 21:00 Duloxetine HCl (Cymbalta) 20 mg DAILY PO Last administered on 12/21/16 08:49; Admin Dose 20 MG; Start 12/11/16 at 09:00 Gabapentin (Neurontin) 300 mg TID PO Last administered on 12/21/16 12:00; Admin Dose 300 MG; Start 12/10/16 at 21:00 Metoprolol Tartrate (Lopressor) 12.5 mg BID PO Last administered on 12/21/16 08 :49; Admin Dose 12.5 MG; Start 12/10/16 at 21:00 Ticagrelor (Brilinta) 90 mg BID PO Last administered on 12/21/16 08:53; Admin Dose 90 MG; Start 12/10/16 at 21:00 Levothyroxine Sodium (Synthroid) 112 mcg DAILY@06 PO Last administered on 06:14; Admin Dose 112 MCG; Start 12/11/16 at 06:00 Insulin Aspart (Novolog Insulin Pen) NOVOLOG *MODERATE* ALGORI... Q4 SC Last administered on 12/21/16 12:03; Admin Dose 4 UNIT; Start 12/10/16 at 21:00 Miscellaneous Information 1 ea NOTE XX ; Start 12/10/16 at 18:30 Glucose (Glutose) 15 gm Q15M PRN PO DECREASED GLUCOSE; Start 12/10/16 at 18:30 Glucose (Glutose) 22.5 gm Q15M PRN PO DECREASED GLUCOSE; Start 12/10/16 at 18: 30 Dextrose (D50w Syringe) 25 ml Q15M PRN IV DECREASED GLUCOSE Last administered on 12/13/16 13:10; Admin Dose 25 ML; Start 12/10/16 at 18:30 Dextrose (D50w Syringe) 50 ml Q15M PRN IV DECREASED GLUCOSE; Start 12/10/16 at 18:30 Glucagon (Glucagen) 1 mg Q15M PRN IM DECREASED GLUCOSE; Start 12/10/16 at 18:30 Glucose (Glutose) 15 gm Q15M PRN BUCCAL DECREASED GLUCOSE; Start 12/10/16 at 18 :30 Acetaminophen 650 mg 650 mg Q6H PRN NGT PAIN AND OR ELEVATED TEMP Last administered on 12/19/16 22:35; Admin Dose 650 MG; Start 12/10/16 at 21:00 Norepinephrine/ Dextrose (Levophed/D5W) 500 ml @ 1.87 mls/hr TITRATE IV Last administered on 12/11/16 00:20; Admin Dose 3.75 MLS/HR; Start 12/10/16 at 23:30 Acetaminophen (Tylenol Tab) 650 mg Q4H PRN PO NON-CARDIAC PAIN LEVEL (1-3); Start 12/11/16 at 13:00 Morphine Sulfate (morphine) 2 mg Q2H PRN IV FOR NON CARDIAC PAIN (4-10) Last administered on 12/15/16 10:33; Admin Dose 2 MG; Start 12/11/16 at 13:00 Al Hydrox/Mg Hydrox/Simethicone (Mag-Al Plus) 30 ml Q4H PRN PO GASTROINTESTINAL UPSET; Start 12/11/16 at 13:00 Ondansetron HCl (Zofran Inj) 4 mg Q4H PRN IV NAUSEA AND/OR VOMITING; Start at 13:00 Senna/Docusate Sodium (Senokot-S) 2 tab HS NGT Last administered on 12/20/16 20 :44; Admin Dose 2 TAB; Start 12/15/16 at 21:00 Insulin Glargine (Lantus) 15 unit DAILY@20 SC Last administered on 12/20/16 20: 59; Admin Dose 15 UNIT; Start 12/16/16 at 20:00 Lisinopril (Zestril) 2.5 mg DAILY PO Last administered on 12/21/16 08:48; Admin Dose 2.5 MG; Start 12/18/16 at 09:00 Heparin Sodium (Porcine) (Heparin (5000 Units/0.5 ml)) 5,000 unit BID SC Last administered on 12/21/16 08:54; Admin Dose 5,000 UNIT; Start 12/17/16 at 21:00 Famotidine 20 mg 20 mg HS PO Last administered on 12/20/16 20:43; Admin Dose 20 MG; Start 12/17/16 at 21:00 Caspofungin 50 mg/ Sodium Chloride 250 ml @ 250 mls/hr Q24H IVPB Last administered on 12/20/16 17:11; Admin Dose 250 MLS/HR; Start 12/19/16 at 18:00 Cefepime HCl (Maxipime 1gm/50 ml (Pmx)) 50 ml @ 100 mls/hr Q12 IVPB Last administered on 12/21/16 08:48; Admin Dose 100 MLS/HR; Start 12/19/16 at 21:00 Assessment/Plan Additional Assessment/Plan IMP: 1. s/p NSTEMI 2. Resp Failure--due to pulm edema now extubated on nasal cannula oxygen with intermittent BiPAP 3. AMS-resolved likely toxic metabolic encephalopathy 4. RLL pneumonia 5. Anemia RECS: 1. Replete K+ and increase free H2O 2. Continue BiPAP as needed 3. Continue cefepime 4. TF/ Free H2O 7. Shayay for SABINE Jamison MD Dec 21, 2016 14:01
--- NOTE | 2016-12-21 14:32 | PN ---
Date/Time of Note Date/Time of Note DATE: 12/21/16 TIME: 14:30 Assessment/Plan VTE Prophylaxis VTE Prophylaxis Intervention: LMWH Lines/Catheters IV Catheter Type (from Nrs): PICC Line Central line still needed: Yes (iv access) Urinary Cath still in place: Yes Reason Cath still needed: skin wounds contaminated by urine Assessment/Plan Chief Complaint/Hosp Course S: 12/20: Off BiPAP since this morning. Thirsty.. Failed swallow eval. 12/21: awake alert, less distress. tolerating feeds. off bipap for 24hrs O: Vss PE No pallor/JVD. Reg, no m/r/g Dimin bs bilaterally. Bs dimin, nt nd, no R/R/G No edema A/P 1. Acute respiratory failure, stable cont o2. Extubated, off BiPAP.tele transfer. 2. NSTEMI. Sp cath -s/p LHC w patent RCA stents and high grade disease of LAD/ LCX w small caliber vessels. CABG if stable. 3. Ischemic cmy EF 25%. Cont medical management. 4. DKA resolved. 4. Chr type 2 DM; a1c= 9.1 6. Chr hypothyroidism 7. Tobacco abuse; offer patch 7. Deconditioning; PT may need snf. 9. Nephrolithiasis; cholelithiasis 10. Lice 11. Fungal cystitis 12. Adjustment dz. [place] stress[place]? 13. Dysphagia, cont ST 14. Fever/leukocytosis. Possible aspiration pneumonia. 15. Hypernatremia. Free water/ feeds. Problems: Exam/Review of Systems Vital Signs Vitals Vital Signs Date Time Temp Pulse Resp B/P Pulse Ox O2 Delivery O2 Flow Rate FiO2 12/21/16 12:00 90 12/21/16 12:00 98.9 22 98/43 94 Nasal Cannula 3.0 12/20/16 07:06 45 Intake and Output 12/20/16 12/20/16 12/21/16 15:00 23:00 07:00 Intake Total 460 ml 40 ml 460 ml Output Total 350 ml 110 ml 700 ml Balance 110 ml -70 ml -240 ml Results Result Diagram: 12/21/16 0315 12/21/16 0315 Results 24 hrs Laboratory Tests Test 12/20/16 17:24 12/20/16 20:57 12/21/16 01:43 12/21/16 03:15 Bedside Glucose 190 199 242 H White Blood Count 21.2 H Red Blood Count 3.76 L Hemoglobin 11.4 L Hematocrit 36.7 L Mean Corpuscular Volume 97.6 Mean Corpuscular Hemoglobin 30.3 Mean Corpuscular Hemoglobin Concent 31.1 L Red Cell Distribution Width 14.2 Platelet Count 614 H Mean Platelet Volume 10.9 H Neutrophils % 86.9 H Lymphocytes % 5.2 L Monocytes % 5.1 Eosinophils % 1.5 Basophils % 0.6 Nucleated Red Blood Cells % 0.0 Neutrophils # 18.4 H Lymphocytes # 1.1 Monocytes # 1.1 H Eosinophils # 0.3 Basophils # 0.1 Nucleated Red Blood Cells # 0.0 Sodium Level 150 H Potassium Level 3.2 L Chloride Level 102 Carbon Dioxide Level 37 H Anion Gap 14 Blood Urea Nitrogen 34 H Creatinine 0.57 Glucose Level 257 H Calcium Level 9.4 Phosphorus Level 2.5 Magnesium Level 2.3 Test 12/21/16 05:00 12/21/16 05:56 12/21/16 07:54 12/21/16 11:57 Blood Gas Specimen Source Blood arterial Arterial Blood Date Drawn 12/21/2016 4:24:09 AM Arterial Blood pH (Temp corrected) 7.504 H Arterial Blood pCO2 (Temp correct) 44.8 Arterial Blood pO2 (Temp corrected) 87.5 Arterial Blood HCO3 34.5 H Arterial Blood Base Excess 10.1 H Arterial Blood Oxygen Saturation 96.9 Miguel Test ACCEPTAB Arterial Blood Gas Puncture Site Right Radial Arterial Blood Carboxyhemoglobin 0.4 Arterial Blood Methemoglobin 0.3 Blood Gas A-a O2 Differential 73.8 H Oxyhemoglobin Percent 96.2 Total Hemoglobin 14.3 Blood Gas Temperature 37.0 Blood Gas Modality NASAL CANNULA FiO2 30.0 Blood Gas Notified Whom LW Blood Gas Notified Time 12/21/2016 4:34:53 AM Bedside Glucose 257 H 294 H 213 Medications Medications Current Medications Aspirin (Halfprin) 81 mg DAILY PO Last administered on 12/21/16 08:49; Admin Dose 81 MG; Start 12/11/16 at 09:00 Atorvastatin Calcium (Lipitor) 20 mg HS PO Last administered on 12/20/16 20:43 ; Admin Dose 20 MG; Start 12/10/16 at 21:00 Duloxetine HCl (Cymbalta) 20 mg DAILY PO Last administered on 12/21/16 08:49; Admin Dose 20 MG; Start 12/11/16 at 09:00 Gabapentin (Neurontin) 300 mg TID PO Last administered on 12/21/16 12:00; Admin Dose 300 MG; Start 12/10/16 at 21:00 Metoprolol Tartrate (Lopressor) 12.5 mg BID PO Last administered on 12/21/16 08 :49; Admin Dose 12.5 MG; Start 12/10/16 at 21:00 Ticagrelor (Brilinta) 90 mg BID PO Last administered on 12/21/16 08:53; Admin Dose 90 MG; Start 12/10/16 at 21:00 Levothyroxine Sodium (Synthroid) 112 mcg DAILY@06 PO Last administered on 06:14; Admin Dose 112 MCG; Start 12/11/16 at 06:00 Insulin Aspart (Novolog Insulin Pen) NOVOLOG *MODERATE* ALGORI... Q4 SC Last administered on 12/21/16 12:03; Admin Dose 4 UNIT; Start 12/10/16 at 21:00 Miscellaneous Information 1 ea NOTE XX ; Start 12/10/16 at 18:30 Glucose (Glutose) 15 gm Q15M PRN PO DECREASED GLUCOSE; Start 12/10/16 at 18:30 Glucose (Glutose) 22.5 gm Q15M PRN PO DECREASED GLUCOSE; Start 12/10/16 at 18: 30 Dextrose (D50w Syringe) 25 ml Q15M PRN IV DECREASED GLUCOSE Last administered on 12/13/16 13:10; Admin Dose 25 ML; Start 12/10/16 at 18:30 Dextrose (D50w Syringe) 50 ml Q15M PRN IV DECREASED GLUCOSE; Start 12/10/16 at 18:30 Glucagon (Glucagen) 1 mg Q15M PRN IM DECREASED GLUCOSE; Start 12/10/16 at 18:30 Glucose (Glutose) 15 gm Q15M PRN BUCCAL DECREASED GLUCOSE; Start 12/10/16 at 18 :30 Acetaminophen (Tylenol Liquid) 650 mg Q6H PRN NGT PAIN AND OR ELEVATED TEMP Last administered on 12/19/16 22:35; Admin Dose 650 MG; Start 12/10/16 at 21:00 Acetaminophen (Tylenol Tab) 650 mg Q4H PRN PO NON-CARDIAC PAIN LEVEL (1-3); Start 12/11/16 at 13:00 Morphine Sulfate (morphine) 2 mg Q2H PRN IV FOR NON CARDIAC PAIN (4-10) Last administered on 12/15/16 10:33; Admin Dose 2 MG; Start 12/11/16 at 13:00 Al Hydrox/Mg Hydrox/Simethicone (Mag-Al Plus) 30 ml Q4H PRN PO GASTROINTESTINAL UPSET; Start 12/11/16 at 13:00 Ondansetron HCl (Zofran Inj) 4 mg Q4H PRN IV NAUSEA AND/OR VOMITING; Start at 13:00 Senna/Docusate Sodium (Senokot-S) 2 tab HS NGT Last administered on 12/20/16 20 :44; Admin Dose 2 TAB; Start 12/15/16 at 21:00 Insulin Glargine (Lantus) 15 unit DAILY@20 SC Last administered on 12/20/16 20: 59; Admin Dose 15 UNIT; Start 12/16/16 at 20:00 Lisinopril (Zestril) 2.5 mg DAILY PO Last administered on 12/21/16 08:48; Admin Dose 2.5 MG; Start 12/18/16 at 09:00 Heparin Sodium (Porcine) (Heparin (5000 Units/0.5 ml)) 5,000 unit BID SC Last administered on 12/21/16 08:54; Admin Dose 5,000 UNIT; Start 12/17/16 at 21:00 Famotidine 20 mg 20 mg HS PO Last administered on 12/20/16 20:43; Admin Dose 20 MG; Start 12/17/16 at 21:00 Caspofungin 50 mg/ Sodium Chloride 250 ml @ 250 mls/hr Q24H IVPB Last administered on 12/20/16 17:11; Admin Dose 250 MLS/HR; Start 12/19/16 at 18:00 Cefepime HCl (Maxipime 1gm/50 ml (Pmx)) 50 ml @ 100 mls/hr Q12 IVPB Last administered on 12/21/16 08:48; Admin Dose 100 MLS/HR; Start 12/19/16 at 21:00 REJI HUDSON MD Dec 21, 2016 14:32
--- NOTE | 2016-12-21 14:49 | PN ---
Date/Time of Note Date/Time of Note DATE: 12/21/16 TIME: 14:48 Assessment/Plan Lines/Catheters IV Catheter Type (from Nrsg): PICC Line Mccray in Place (from Nrsg): Yes Assessment/Plan Chief Complaint/Hosp Course CAD, status post non-ST elevation CO History of lice Cardiomyopathy with ejection fraction 25% Respiratory failure Patient is not a candidate to undergo coronary artery bypass grafting at this time Still on BIPAP FiO2 of 40% Would continue medical management Diuretics Plan for possible coronary artery bypass grafting when medically more stable Problems: Subjective 24 Hr Interval Summary Constitutional: improved Pain Control: mild Exam/Review of Systems Vital Signs Vitals Vital Signs Date Time Temp Pulse Resp B/P Pulse Ox O2 Delivery O2 Flow Rate FiO2 12/21/16 12:00 90 12/21/16 12:00 98.9 22 98/43 94 Nasal Cannula 3.0 12/20/16 07:06 45 Intake and Output 12/20/16 12/20/16 12/21/16 15:00 23:00 07:00 Intake Total 460 ml 40 ml 460 ml Output Total 350 ml 110 ml 700 ml Balance 110 ml -70 ml -240 ml Exam ENMT: mucosa pink and moist, nl external ears & nose, nl lips & teeth, nl nasal mucosa & septum Neck: non-tender, supple Respiratory: clear to auscultation, normal air movement Cardiovascular: nl pulses, regular rate and rhythm Gastrointestinal: nl liver, spleen, non-tender, soft Results Result Diagram: 12/21/16 0315 12/21/16 0315 CHELA ALVARENGA MD Dec 21, 2016 14:48
--- NOTE | 2016-12-21 15:31 | CONS ---
Date/Time of Note Date/Time of Note DATE: 12/21/16 TIME: 15:30 Assessment/Plan Assessment/Plan Chief Complaint/Hosp Course No acute changes per report, patient is afebrile, looks comfortable, tolerates tube feeding WBC today 21.2 H&H 11.4 and 36.7 platelets 614 neutrophils 86.9 BN 34 creatinine 0.57 sodium 150 potassium 3.2 Microbiology urine culture on December 13 grew Mandy glabrata, sputum culture growing staph aureus and gram-negative rods Indwelling's NG tube, Mccray catheter, right upper extremity PICC line Antibiotics: Cefepime Cancidas Physical examination: Well-developed chronically ill-appearing older looking 56- year-old woman who is awake in no distress. Head atraumatic normocephalic sclera nonicteric. Bugle mucosa pink dry neck is supple chest rise symmetrical breath sounds clear, diminished basis. Heart S1-S2. Abdomen soft bowel tones present. Extremities without cyanosis. Assessment: 1. Persistent leukocytosis likely secondary to pneumonia, possibly reactive 2. Fungal UTI 3. Non-ST elevation OR/cardiomyopathy with ejection fraction 25% 4. Status post respiratory failure 5. Dysphasia 6. Head lies status post treatment 7. Dysphasia, continue NG tube feedings Plan: Hemodynamically stable, WBC tracing down, no fevers continue antibiotics, continue anti-aspiration measures, monitor white blood cell count. Plan for CABG [facility] staff Problems: Consultation Date/Type/Reason Admit Date/Time Dec 10, 2016 at 16:55 Initial Consult Date 12/12/16 Type of Consultation: ID Referring Provider: ROBEL PETTY MD Exam/Review of Systems Vital Signs Vitals Vital Signs Date Time Temp Pulse Resp B/P Pulse Ox O2 Delivery O2 Flow Rate FiO2 12/21/16 14:48 89 22 97 Nasal Cannula 2.0 12/21/16 12:00 98.9 98/43 12/20/16 07:06 45 Intake and Output 12/20/16 12/20/16 12/21/16 15:00 23:00 07:00 Intake Total 460 ml 40 ml 460 ml Output Total 350 ml 110 ml 700 ml Balance 110 ml -70 ml -240 ml Results Result Diagram: 12/21/16 0315 12/21/16 0315 Results 24 hrs Laboratory Tests Test 12/20/16 17:24 12/20/16 20:57 12/21/16 01:43 12/21/16 03:15 Bedside Glucose 190 199 242 H White Blood Count 21.2 H Red Blood Count 3.76 L Hemoglobin 11.4 L Hematocrit 36.7 L Mean Corpuscular Volume 97.6 Mean Corpuscular Hemoglobin 30.3 Mean Corpuscular Hemoglobin Concent 31.1 L Red Cell Distribution Width 14.2 Platelet Count 614 H Mean Platelet Volume 10.9 H Neutrophils % 86.9 H Lymphocytes % 5.2 L Monocytes % 5.1 Eosinophils % 1.5 Basophils % 0.6 Nucleated Red Blood Cells % 0.0 Neutrophils # 18.4 H Lymphocytes # 1.1 Monocytes # 1.1 H Eosinophils # 0.3 Basophils # 0.1 Nucleated Red Blood Cells # 0.0 Sodium Level 150 H Potassium Level 3.2 L Chloride Level 102 Carbon Dioxide Level 37 H Anion Gap 14 Blood Urea Nitrogen 34 H Creatinine 0.57 Glucose Level 257 H Calcium Level 9.4 Phosphorus Level 2.5 Magnesium Level 2.3 Test 12/21/16 05:00 12/21/16 05:56 12/21/16 07:54 12/21/16 11:57 Blood Gas Specimen Source Blood arterial Arterial Blood Date Drawn 12/21/2016 4:24:09 AM Arterial Blood pH (Temp corrected) 7.504 H Arterial Blood pCO2 (Temp correct) 44.8 Arterial Blood pO2 (Temp corrected) 87.5 Arterial Blood HCO3 34.5 H Arterial Blood Base Excess 10.1 H Arterial Blood Oxygen Saturation 96.9 Miguel Test ACCEPTAB Arterial Blood Gas Puncture Site Right Radial Arterial Blood Carboxyhemoglobin 0.4 Arterial Blood Methemoglobin 0.3 Blood Gas A-a O2 Differential 73.8 H Oxyhemoglobin Percent 96.2 Total Hemoglobin 14.3 Blood Gas Temperature 37.0 Blood Gas Modality NASAL CANNULA FiO2 30.0 Blood Gas Notified Whom LW Blood Gas Notified Time 12/21/2016 4:34:53 AM Bedside Glucose 257 H 294 H 213 Medications Medications Current Medications Aspirin (Halfprin) 81 mg DAILY PO Last administered on 12/21/16 08:49; Admin Dose 81 MG; Start 12/11/16 at 09:00 Atorvastatin Calcium (Lipitor) 20 mg HS PO Last administered on 12/20/16 20:43 ; Admin Dose 20 MG; Start 12/10/16 at 21:00 Duloxetine HCl (Cymbalta) 20 mg DAILY PO Last administered on 12/21/16 08:49; Admin Dose 20 MG; Start 12/11/16 at 09:00 Gabapentin (Neurontin) 300 mg TID PO Last administered on 12/21/16 12:00; Admin Dose 300 MG; Start 12/10/16 at 21:00 Metoprolol Tartrate (Lopressor) 12.5 mg BID PO Last administered on 12/21/16 08 :49; Admin Dose 12.5 MG; Start 12/10/16 at 21:00 Ticagrelor (Brilinta) 90 mg BID PO Last administered on 12/21/16 08:53; Admin Dose 90 MG; Start 12/10/16 at 21:00 Levothyroxine Sodium (Synthroid) 112 mcg DAILY@06 PO Last administered on 06:14; Admin Dose 112 MCG; Start 12/11/16 at 06:00 Insulin Aspart (Novolog Insulin Pen) NOVOLOG *MODERATE* ALGORI... Q4 SC Last administered on 12/21/16 12:03; Admin Dose 4 UNIT; Start 12/10/16 at 21:00 Miscellaneous Information 1 ea NOTE XX ; Start 12/10/16 at 18:30 Glucose (Glutose) 15 gm Q15M PRN PO DECREASED GLUCOSE; Start 12/10/16 at 18:30 Glucose (Glutose) 22.5 gm Q15M PRN PO DECREASED GLUCOSE; Start 12/10/16 at 18: 30 Dextrose (D50w Syringe) 25 ml Q15M PRN IV DECREASED GLUCOSE Last administered on 12/13/16 13:10; Admin Dose 25 ML; Start 12/10/16 at 18:30 Dextrose (D50w Syringe) 50 ml Q15M PRN IV DECREASED GLUCOSE; Start 12/10/16 at 18:30 Glucagon (Glucagen) 1 mg Q15M PRN IM DECREASED GLUCOSE; Start 12/10/16 at 18:30 Glucose (Glutose) 15 gm Q15M PRN BUCCAL DECREASED GLUCOSE; Start 12/10/16 at 18 :30 Acetaminophen (Tylenol Liquid) 650 mg Q6H PRN NGT PAIN AND OR ELEVATED TEMP Last administered on 12/19/16 22:35; Admin Dose 650 MG; Start 12/10/16 at 21:00 Acetaminophen (Tylenol Tab) 650 mg Q4H PRN PO NON-CARDIAC PAIN LEVEL (1-3); Start 12/11/16 at 13:00 Morphine Sulfate (morphine) 2 mg Q2H PRN IV FOR NON CARDIAC PAIN (4-10) Last administered on 12/15/16 10:33; Admin Dose 2 MG; Start 12/11/16 at 13:00 Al Hydrox/Mg Hydrox/Simethicone (Mag-Al Plus) 30 ml Q4H PRN PO GASTROINTESTINAL UPSET; Start 12/11/16 at 13:00 Ondansetron HCl (Zofran Inj) 4 mg Q4H PRN IV NAUSEA AND/OR VOMITING; Start at 13:00 Senna/Docusate Sodium (Senokot-S) 2 tab HS NGT Last administered on 12/20/16 20 :44; Admin Dose 2 TAB; Start 12/15/16 at 21:00 Lisinopril (Zestril) 2.5 mg DAILY PO Last administered on 12/21/16 08:48; Admin Dose 2.5 MG; Start 12/18/16 at 09:00 Heparin Sodium (Porcine) (Heparin (5000 Units/0.5 ml)) 5,000 unit BID SC Last administered on 12/21/16 08:54; Admin Dose 5,000 UNIT; Start 12/17/16 at 21:00 Famotidine 20 mg 20 mg HS PO Last administered on 12/20/16 20:43; Admin Dose 20 MG; Start 12/17/16 at 21:00 Caspofungin 50 mg/ Sodium Chloride 250 ml @ 250 mls/hr Q24H IVPB Last administered on 12/20/16 17:11; Admin Dose 250 MLS/HR; Start 12/19/16 at 18:00 Cefepime HCl (Maxipime 1gm/50 ml (Pmx)) 50 ml @ 100 mls/hr Q12 IVPB Last administered on 12/21/16 08:48; Admin Dose 100 MLS/HR; Start 12/19/16 at 21:00 Insulin Glargine (Lantus) 25 unit DAILY@20 SC ; Start 12/21/16 at 20:00 Potassium Chloride (Potassium Chloride Pwd/Soln) 40 meq DAILY NGT ; Start at 14:30 Potassium Chloride (Potassium Chloride Pwd/Soln) 20 meq ONCE ONCE NGT ; Start 12/21/16 at 19:30; Stop 12/21/16 at 19:31 DANYELLE ROSSI NP Dec 21, 2016 15:31
[2016-12-21] MEDS: POTASSIUM CHLORIDE 20 MEQ POWDER FOR ORAL SOLN NGT SCH (15:39)
[2016-12-21] MEDS: CASPOFUNGIN 50 MG in SOD CHLORIDE 0.9% 250 ML IVPB SCH (17:33)
[2016-12-21] MEDS ORDERED: POTASSIUM CHLORIDE 20 MEQ POWDER FOR ORAL SOLN NGT ONE (19:30)
[2016-12-21] MEDS: INSULIN GLARGINE [LANtus] 3 ML PEN SC SCH (20:32)
[2016-12-21] MEDS: ATORVASTATIN 20 MG TAB PO SCH (20:34)
[2016-12-21] MEDS: SENNA/DOCUSATE NA (8.6MG/50MG) TAB NGT SCH (20:35)
[2016-12-21] MEDS: FAMOTIDINE 20 MG TAB PO SCH (20:36)
[2016-12-22] VITALS (13 sets, daily range): BP systolic 95–105; BP diastolic 45–52; PULSE 97–110; RESP 20–21
[2016-12-22] MEDS: INSULIN ASPART [NOVOLOG] 3 ML PEN SC SCH ×6 (01:41→20:28)
[2016-12-22] MEDS ORDERED: VITAMIN A & D 5 GM OINT PACKET TOP ONE (01:47)
[2016-12-22] MEDS: ALBUTEROL/IPRATROPIUM (NEB) 3 ML AMP HHN SCH ×4 (01:56→19:43)
[2016-12-22] MEDS: LEVOTHYROXINE 112 MCG TAB PO SCH (05:23)
[2016-12-22] MEDS: FUROSEMIDE 20 MG INJ IV SCH ×2 (05:24→18:00)
[2016-12-22] MEDS: GABAPENTIN 300 MG CAP PO SCH ×3 (08:24→20:18)
[2016-12-22] MEDS: DULOXETINE 20 MG CAP DR PO SCH (08:24)
[2016-12-22] MEDS: POTASSIUM CHLORIDE 20 MEQ POWDER FOR ORAL SOLN NGT SCH (08:24)
[2016-12-22] MEDS: ASPIRIN (EC) 81 MG TAB PO SCH (08:24)
[2016-12-22] MEDS: CEFEPIME 1GM/50 ML (PMX) 50 ML IVPB SCH ×2 (08:25→20:48)
[2016-12-22] MEDS: LISINOPRIL 5 MG TAB PO SCH (08:28)
[2016-12-22] MEDS: METOPROLOL 25 MG TAB PO SCH ×2 (08:29→20:19)
[2016-12-22] MEDS: HEPARIN 5,000 UNIT/0.5 ML VIAL SC SCH ×2 (08:36→20:28)
[2016-12-22] MEDS: TICAGRELOR 90 MG TABLET PO SCH ×2 (08:37→20:27)
[2016-12-22 10:15] LABS: ADD SCAN DIFF NO
[2016-12-22 10:20] LABS: BASOPHIL # 0.1 10^3/ul (0.0-0.1); EOSINOPHILS # 0.6 10^3/ul (0.0-0.5); EOSINOPHILS % 4.1 % (0.0-7.0); HEMATOCRIT 39.3 % (37.0-47.0); LYMPHOCYTES # 1.1 10^3/ul (0.8-2.9); LYMPHOCYTES % 8.5 % (15.0-51.0); MEAN CORPUSCULAR HEMOGLOBIN 29.6 pg (29.0-33.0); MEAN CORPUSCULAR HGB CONC 30.5 g/dl (32.0-37.0); MEAN CORPUSCULAR VOLUME 96.8 fl (82.0-101.0); MEAN PLATELET VOLUME 10.7 fl (7.4-10.4); MONOCYTES % 7.1 % (0.0-11.0); NEUTROPHIL # 10.6 10^3/ul (1.6-7.5); NEUTROPHILS % 78.5 % (39.0-77.0); PLATELET COUNT 661 10^3/UL (140-415); RED BLOOD COUNT 4.06 10^6/ul (4.20-5.40); RED CELL DISTRIBUTION WIDTH 13.8 % (11.5-14.5); WHITE BLOOD COUNT 13.5 10^3/ul (4.8-10.8)
--- NOTE | 2016-12-22 10:42 | PN ---
Date/Time of Note Date/Time of Note DATE: 12/22/16 TIME: 10:41 Assessment/Plan Lines/Catheters IV Catheter Type (from Nrsg): PICC Line Mccray in Place (from Nrsg): Yes Assessment/Plan Chief Complaint/Hosp Course CAD, status post non-ST elevation [place] History of lice Cardiomyopathy with ejection fraction 25% Respiratory failure Patient is not a candidate to undergo coronary artery bypass grafting at this time Still on BIPAP FiO2 of 40% Would continue medical management Diuretics Plan for possible coronary artery bypass grafting when medically more stable Will discuss with the family Problems: Subjective 24 Hr Interval Summary Constitutional: improved Pain Control: mild Exam/Review of Systems Vital Signs Vitals Vital Signs Date Time Temp Pulse Resp B/P Pulse Ox O2 Delivery O2 Flow Rate FiO2 12/22/16 08:15 105 12/22/16 08:00 18 97 Nasal Cannula 3.0 12/22/16 07:46 99.0 101/51 12/20/16 07:06 45 Intake and Output 12/21/16 12/21/16 12/22/16 15:00 23:00 07:00 Intake Total 50 ml 930 ml 280 ml Output Total 900 ml 700 ml Balance 50 ml 30 ml -420 ml Exam Eyes: EOMI, nl conjunctiva, nl lids, nl sclera ENMT: mucosa pink and moist, nl external ears & nose, nl lips & teeth, nl nasal mucosa & septum Neck: non-tender, supple Respiratory: clear to auscultation, normal air movement Cardiovascular: nl pulses, regular rate and rhythm Gastrointestinal: nl liver, spleen, non-tender, soft Results Result Diagram: 12/22/16 0959 12/21/16 0315 CHELA ALVARENGA MD Dec 22, 2016 10:42
[2016-12-22 10:49] LABS: ALBUMIN 3.5 g/dl (3.3-4.9); ALBUMIN/GLOBULIN RATIO 1.12; BILIRUBIN,INDIRECT 0.2 mg/dl (0-1.1); BILIRUBIN,TOTAL 0.2 mg/dl (0.2-1.3); CALCIUM 9.9 mg/dl (8.4-10.2); CREATININE 0.59 mg/dl (0.44-1.00); MAGNESIUM 2.3 mg/dl (1.7-2.5); PHOSPHORUS 2.8 mg/dl (2.5-4.9); TOTAL PROTEIN 6.6 g/dl (6.1-8.1)
--- NOTE | 2016-12-22 11:42 | CONS ---
Date/Time of Note Date/Time of Note DATE: 12/22/16 TIME: 11:37 Assessment/Plan Assessment/Plan Chief Complaint/Hosp Course IMP: 1.NSTEMI-peak trop>60 Now dowtrended significantly s/p LHC with patent RCA stents and high grade disease of LAD/LCX with small caliber vessels and recc for CABG 2.cardiomyopathy-LVEF 40-45 BY OSH echo. 25% by echo read here 3.Hypotension-improved off of pressors and stable tolerating low doses of BB/ ACEI 4.resp failure s/p extubation requiring PRN BIPAP 5.anemia 6. AMS/encephalopathy 7. PNA 8. COPD Recc: -Transfered to Tele floor -Follow BP closely and continue low dose BB/ACEI as tolerated only -Continue asa/brilinta -Continue statin -Follow volume status closely and continue lasix diuresis as tolerated -Smoking cessation -Follow BS closely -CT surgical eval ongoing and have discussed with daughter who is agreeable Problems: Consultation Date/Type/Reason Admit Date/Time Dec 10, 2016 at 16:55 Initial Consult Date 12/12/16 Type of Consultation: cardiology Reason for Consultation Nstemi Referring Provider: ROBEL PETTY MD Exam/Review of Systems Vital Signs Vitals Vital Signs Date Time Temp Pulse Resp B/P Pulse Ox O2 Delivery O2 Flow Rate FiO2 12/22/16 11:21 98.2 100 20 100/50 96 12/22/16 08:00 Nasal Cannula 3.0 12/20/16 07:06 45 Intake and Output 12/21/16 12/21/16 12/22/16 15:00 23:00 07:00 Intake Total 50 ml 930 ml 280 ml Output Total 900 ml 700 ml Balance 50 ml 30 ml -420 ml Exam Review of Systems: CONSTITUTIONAL: No fevers, chills. PULMONARY: mild sob-improving CARDIOVASCULAR: No chest pain/palpitations GASTROINTESTINAL: No nausea/vomiting. GENITOURINARY: No hematuria/dysuria. MUSCULOSKELETAL: No myagias/arthalgias. PSYCHIATRIC: The patient denies depression. NEUROLOGIC: lethargic Constitutional: alert Psych: no complaints Head: normocephalic ENMT: mucosa pink and moist Neck: jvd (8-9 cm water), supple Respiratory: diminished breath sounds (at bases/B but fair air movement throughout) Cardiovascular: regular rate and rhythm Gastrointestinal: non-tender, soft Musculoskeletal: muscle tone (normal) Extremities: edema (none) 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: confused, lethargic Results Result Diagram: 12/22/1695812/22/1659 Results 24 hrs Laboratory Tests Test 12/21/16 11:57 12/21/16 17:32 12/21/16 19:48 12/22/16 01:39 Bedside Glucose 213 305 H 249 H 341 H Test 12/22/16 04:50 12/22/16 08:12 12/22/16 09:59 Bedside Glucose 226 H 189 White Blood Count 13.5 #H Red Blood Count 4.06 L Hemoglobin 12.0 Hematocrit 39.3 Mean Corpuscular Volume 96.8 Mean Corpuscular Hemoglobin 29.6 Mean Corpuscular Hemoglobin Concent 30.5 L Red Cell Distribution Width 13.8 Platelet Count 661 H Mean Platelet Volume 10.7 H Neutrophils % 78.5 H Lymphocytes % 8.5 L Monocytes % 7.1 Eosinophils % 4.1 Basophils % 1.0 Nucleated Red Blood Cells % 0.0 Neutrophils # 10.6 H Lymphocytes # 1.1 Monocytes # 1.0 H Eosinophils # 0.6 H Basophils # 0.1 Nucleated Red Blood Cells # 0.0 Sodium Level 146 H Potassium Level 5.0 Chloride Level 105 Carbon Dioxide Level 38 H Anion Gap 8 Blood Urea Nitrogen 26 H Creatinine 0.59 Glucose Level 223 H Calcium Level 9.9 Phosphorus Level 2.8 Magnesium Level 2.3 Total Bilirubin 0.2 Direct Bilirubin 0.00 Indirect Bilirubin 0.2 Aspartate Amino Transf (AST/SGOT) 25 Alanine Aminotransferase (ALT/SGPT) 35 Alkaline Phosphatase 148 H Total Protein 6.6 Albumin 3.5 Globulin 3.10 Albumin/Globulin Ratio 1.12 Medications Medications Current Medications Aspirin (Halfprin) 81 mg DAILY PO Last administered on 12/22/16 08:24; Admin Dose 81 MG; Start 12/11/16 at 09:00 Atorvastatin Calcium (Lipitor) 20 mg HS PO Last administered on 12/21/16 20:34 ; Admin Dose 20 MG; Start 12/10/16 at 21:00 Duloxetine HCl (Cymbalta) 20 mg DAILY PO Last administered on 12/22/16 08:24; Admin Dose 20 MG; Start 12/11/16 at 09:00 Gabapentin (Neurontin) 300 mg TID PO Last administered on 12/22/16 08:24; Admin Dose 300 MG; Start 12/10/16 at 21:00 Metoprolol Tartrate (Lopressor) 12.5 mg BID PO Last administered on 12/22/16 08:29; Admin Dose 12.5 MG; Start 12/10/16 at 21:00 Ticagrelor (Brilinta) 90 mg BID PO Last administered on 12/22/16 08:37; Admin Dose 90 MG; Start 12/10/16 at 21:00 Levothyroxine Sodium (Synthroid) 112 mcg DAILY@06 PO Last administered on 05:23; Admin Dose 112 MCG; Start 12/11/16 at 06:00 Insulin Aspart (Novolog Insulin Pen) NOVOLOG *MODERATE* ALGORI... Q4 SC Last administered on 12/22/16 08:37; Admin Dose 4 UNIT; Start 12/10/16 at 21:00 Miscellaneous Information 1 ea NOTE XX ; Start 12/10/16 at 18:30 Glucose (Glutose) 15 gm Q15M PRN PO DECREASED GLUCOSE; Start 12/10/16 at 18:30 Glucose (Glutose) 22.5 gm Q15M PRN PO DECREASED GLUCOSE; Start 12/10/16 at 18: 30 Dextrose (D50w Syringe) 25 ml Q15M PRN IV DECREASED GLUCOSE Last administered on 12/13/16 13:10; Admin Dose 25 ML; Start 12/10/16 at 18:30 Dextrose (D50w Syringe) 50 ml Q15M PRN IV DECREASED GLUCOSE; Start 12/10/16 at 18:30 Glucagon (Glucagen) 1 mg Q15M PRN IM DECREASED GLUCOSE; Start 12/10/16 at 18:30 Glucose (Glutose) 15 gm Q15M PRN BUCCAL DECREASED GLUCOSE; Start 12/10/16 at 18 :30 Acetaminophen (Tylenol Liquid) 650 mg Q6H PRN NGT PAIN AND OR ELEVATED TEMP Last administered on 12/19/16 22:35; Admin Dose 650 MG; Start 12/10/16 at 21:00 Acetaminophen (Tylenol Tab) 650 mg Q4H PRN PO NON-CARDIAC PAIN LEVEL (1-3); Start 12/11/16 at 13:00 Morphine Sulfate (morphine) 2 mg Q2H PRN IV FOR NON CARDIAC PAIN (4-10) Last administered on 12/15/16 10:33; Admin Dose 2 MG; Start 12/11/16 at 13:00 Al Hydrox/Mg Hydrox/Simethicone (Mag-Al Plus) 30 ml Q4H PRN PO GASTROINTESTINAL UPSET; Start 12/11/16 at 13:00 Ondansetron HCl (Zofran Inj) 4 mg Q4H PRN IV NAUSEA AND/OR VOMITING; Start at 13:00 Senna/Docusate Sodium (Senokot-S) 2 tab HS NGT Last administered on 12/21/16 20 :35; Admin Dose 2 TAB; Start 12/15/16 at 21:00 Lisinopril (Zestril) 2.5 mg DAILY PO Last administered on 12/22/16 08:28; Admin Dose 2.5 MG; Start 12/18/16 at 09:00 Heparin Sodium (Porcine) (Heparin (5000 Units/0.5 ml)) 5,000 unit BID SC Last administered on 12/22/16 08:36; Admin Dose 5,000 UNIT; Start 12/17/16 at 21:00 Famotidine 20 mg 20 mg HS PO Last administered on 12/21/16 20:36; Admin Dose 20 MG; Start 12/17/16 at 21:00 Caspofungin 50 mg/ Sodium Chloride 250 ml @ 250 mls/hr Q24H IVPB Last administered on 12/21/16 17:33; Admin Dose 250 MLS/HR; Start 12/19/16 at 18:00 Cefepime HCl (Maxipime 1gm/50 ml (Pmx)) 50 ml @ 100 mls/hr Q12 IVPB Last administered on 12/22/16 08:25; Admin Dose 100 MLS/HR; Start 12/19/16 at 21:00 Insulin Glargine (Lantus) 25 unit DAILY@20 SC Last administered on 12/21/16 20: 32; Admin Dose 25 UNIT; Start 12/21/16 at 20:00 Potassium Chloride (Potassium Chloride Pwd/Soln) 40 meq DAILY NGT Last administered on 12/22/16 08:24; Admin Dose 40 MEQ; Start 12/21/16 at 14:30 RHONDA PENA Dec 22, 2016 11:42
--- NOTE | 2016-12-22 12:43 | PN ---
Date/Time of Note Date/Time of Note DATE: 12/22/16 TIME: 12:28 Assessment/Plan VTE Prophylaxis VTE Prophylaxis Intervention: SCD's Lines/Catheters IV Catheter Type (from Nrsg): PICC Line Central line still needed: No Urinary Cath still in place: Yes Reason Cath still needed: pres ulcer contaminated by urine, other (indicate) Assessment/Plan Assessment/Plan 56 yo F with PMHx DM2 nonadherent to insulin, HTN, presented with DKA and NSTEMI. Pt is sp LHC with PCI but per cardiology also needs CABG. #NSTEMI sp PCI with CAD warranting CABG -cont DAPT, BP meds, statin -CT surgery following for CABG eval #ICM: EF 25% -cont med management #DM2: a1c 9s. Continue lantus and aspart, uptitrate lantus as needed #aspiration pna, ?fungal cystitis: antimicrobials as per ID #hypothyroid: comt home meds Subjective 24 Hr Interval Summary Free Text/Dictation Still not able to swallow safely per ST. Exam/Review of Systems Vital Signs Vitals Vital Signs Date Time Temp Pulse Resp B/P Pulse Ox O2 Delivery O2 Flow Rate FiO2 12/22/16 11:21 98.2 100 20 100/50 96 12/22/16 08:14 Nasal Cannula 3.0 12/20/16 07:06 45 Intake and Output 12/21/16 12/21/16 12/22/16 14:59 22:59 06:59 Intake Total 50 ml 930 ml 280 ml Output Total 900 ml 700 ml Balance 50 ml 30 ml -420 ml Exam laying in bed, nad NG in place no mrg lungs clear abd soft Results Result Diagram: 12/22/16 0959 12/22/16 0959 Results 24 hrs Laboratory Tests Test 12/21/16 17:32 12/21/16 19:48 12/22/16 01:39 12/22/16 04:50 Bedside Glucose 305 H 249 H 341 H 226 H Test 12/22/16 08:12 12/22/16 09:59 Bedside Glucose 189 White Blood Count 13.5 #H Red Blood Count 4.06 L Hemoglobin 12.0 Hematocrit 39.3 Mean Corpuscular Volume 96.8 Mean Corpuscular Hemoglobin 29.6 Mean Corpuscular Hemoglobin Concent 30.5 L Red Cell Distribution Width 13.8 Platelet Count 661 H Mean Platelet Volume 10.7 H Neutrophils % 78.5 H Lymphocytes % 8.5 L Monocytes % 7.1 Eosinophils % 4.1 Basophils % 1.0 Nucleated Red Blood Cells % 0.0 Neutrophils # 10.6 H Lymphocytes # 1.1 Monocytes # 1.0 H Eosinophils # 0.6 H Basophils # 0.1 Nucleated Red Blood Cells # 0.0 Sodium Level 146 H Potassium Level 5.0 Chloride Level 105 Carbon Dioxide Level 38 H Anion Gap 8 Blood Urea Nitrogen 26 H Creatinine 0.59 Glucose Level 223 H Calcium Level 9.9 Phosphorus Level 2.8 Magnesium Level 2.3 Total Bilirubin 0.2 Direct Bilirubin 0.00 Indirect Bilirubin 0.2 Aspartate Amino Transf (AST/SGOT) 25 Alanine Aminotransferase (ALT/SGPT) 35 Alkaline Phosphatase 148 H Total Protein 6.6 Albumin 3.5 Globulin 3.10 Albumin/Globulin Ratio 1.12 Medications Medications Current Medications Aspirin (Halfprin) 81 mg DAILY PO Last administered on 12/22/16 08:24; Admin Dose 81 MG; Start 12/11/16 at 09:00 Atorvastatin Calcium (Lipitor) 20 mg HS PO Last administered on 12/21/16 20:34 ; Admin Dose 20 MG; Start 12/10/16 at 21:00 Duloxetine HCl (Cymbalta) 20 mg DAILY PO Last administered on 12/22/16 08:24; Admin Dose 20 MG; Start 12/11/16 at 09:00 Gabapentin (Neurontin) 300 mg TID PO Last administered on 12/22/16 08:24; Admin Dose 300 MG; Start 12/10/16 at 21:00 Metoprolol Tartrate (Lopressor) 12.5 mg BID PO Last administered on 12/22/16 08:29; Admin Dose 12.5 MG; Start 12/10/16 at 21:00 Ticagrelor (Brilinta) 90 mg BID PO Last administered on 12/22/16 08:37; Admin Dose 90 MG; Start 12/10/16 at 21:00 Levothyroxine Sodium (Synthroid) 112 mcg DAILY@06 PO Last administered on 05:23; Admin Dose 112 MCG; Start 12/11/16 at 06:00 Insulin Aspart (Novolog Insulin Pen) NOVOLOG *MODERATE* ALGORI... Q4 SC Last administered on 12/22/16 08:37; Admin Dose 4 UNIT; Start 12/10/16 at 21:00 Miscellaneous Information 1 ea NOTE XX ; Start 12/10/16 at 18:30 Glucose (Glutose) 15 gm Q15M PRN PO DECREASED GLUCOSE; Start 12/10/16 at 18:30 Glucose (Glutose) 22.5 gm Q15M PRN PO DECREASED GLUCOSE; Start 12/10/16 at 18: 30 Dextrose (D50w Syringe) 25 ml Q15M PRN IV DECREASED GLUCOSE Last administered on 12/13/16 13:10; Admin Dose 25 ML; Start 12/10/16 at 18:30 Dextrose (D50w Syringe) 50 ml Q15M PRN IV DECREASED GLUCOSE; Start 12/10/16 at 18:30 Glucagon (Glucagen) 1 mg Q15M PRN IM DECREASED GLUCOSE; Start 12/10/16 at 18:30 Glucose (Glutose) 15 gm Q15M PRN BUCCAL DECREASED GLUCOSE; Start 12/10/16 at 18 :30 Acetaminophen (Tylenol Liquid) 650 mg Q6H PRN NGT PAIN AND OR ELEVATED TEMP Last administered on 12/19/16 22:35; Admin Dose 650 MG; Start 12/10/16 at 21:00 Acetaminophen (Tylenol Tab) 650 mg Q4H PRN PO NON-CARDIAC PAIN LEVEL (1-3); Start 12/11/16 at 13:00 Morphine Sulfate (morphine) 2 mg Q2H PRN IV FOR NON CARDIAC PAIN (4-10) Last administered on 12/15/16 10:33; Admin Dose 2 MG; Start 12/11/16 at 13:00 Al Hydrox/Mg Hydrox/Simethicone (Mag-Al Plus) 30 ml Q4H PRN PO GASTROINTESTINAL UPSET; Start 12/11/16 at 13:00 Ondansetron HCl (Zofran Inj) 4 mg Q4H PRN IV NAUSEA AND/OR VOMITING; Start at 13:00 Senna/Docusate Sodium (Senokot-S) 2 tab HS NGT Last administered on 12/21/16 20 :35; Admin Dose 2 TAB; Start 12/15/16 at 21:00 Lisinopril (Zestril) 2.5 mg DAILY PO Last administered on 12/22/16 08:28; Admin Dose 2.5 MG; Start 12/18/16 at 09:00 Heparin Sodium (Porcine) (Heparin (5000 Units/0.5 ml)) 5,000 unit BID SC Last administered on 12/22/16 08:36; Admin Dose 5,000 UNIT; Start 12/17/16 at 21:00 Famotidine 20 mg 20 mg HS PO Last administered on 12/21/16 20:36; Admin Dose 20 MG; Start 12/17/16 at 21:00 Caspofungin 50 mg/ Sodium Chloride 250 ml @ 250 mls/hr Q24H IVPB Last administered on 12/21/16 17:33; Admin Dose 250 MLS/HR; Start 12/19/16 at 18:00 Cefepime HCl (Maxipime 1gm/50 ml (Pmx)) 50 ml @ 100 mls/hr Q12 IVPB Last administered on 12/22/16 08:25; Admin Dose 100 MLS/HR; Start 12/19/16 at 21:00 Insulin Glargine (Lantus) 25 unit DAILY@20 SC Last administered on 12/21/16 20: 32; Admin Dose 25 UNIT; Start 12/21/16 at 20:00 Potassium Chloride (Potassium Chloride Pwd/Soln) 40 meq DAILY NGT Last administered on 12/22/16 08:24; Admin Dose 40 MEQ; Start 12/21/16 at 14:30 ROBEL PETTY MD Dec 22, 2016 12:43 administered on 12/21/16 17:33; Admin Dose 250 MLS/HR; Start 12/19/16 at 18:00 Cefepime HCl (Maxipime 1gm/50 ml (Pmx)) 50 ml @ 100 mls/hr Q12 IVPB Last administered on 12/22/16 08:25; Admin Dose 100 MLS/HR; Start 12/19/16 at 21:00 Insulin Glargine (Lantus) 25 unit DAILY@20 SC Last administered on 12/21/16 20: 32; Admin Dose 25 UNIT; Start 12/21/16 at 20:00 Potassium Chloride (Potassium Chloride Pwd/Soln) 40 meq DAILY NGT Last administered on 12/22/16 08:24; Admin Dose 40 MEQ; Start 12/21/16 at 14:30 ROBEL PETTY MD Dec 22, 2016 12:43
--- NOTE | 2016-12-22 12:54 | CONS ---
Date/Time of Note Date/Time of Note DATE: 12/22/16 TIME: 12:52 Assessment/Plan Assessment/Plan Chief Complaint/Hosp Course Transferred to telemetry, weak and lethargic, looks comfortable, family at bedside Temperature 99 pulse 100 respirations 20 blood pressure 100/50 saturation 96% on room air WBC 13.5 H&H 12 and 39.3 platelets 661 neutrophils 78.5 BN 26 creatinine 0.59 Microbiology: Sputum culture on December 19 grew Klebsiella pneumonia and staph aureus Indwelling's NG tube, Mccray catheter, right upper extremity PICC line Antibiotics: Cefepime Cancidas Physical examination: Well-developed chronically ill-appearing older looking 56- year-old woman who is awake in no distress. Head atraumatic normocephalic sclera nonicteric. Bugle mucosa pink dry neck is supple chest rise symmetrical breath sounds clear, diminished basis. Heart S1-S2. Abdomen soft bowel tones present. Extremities without cyanosis. Assessment: 1. Persistent leukocytosis likely secondary to pneumonia 2. Fungal UTI 3. Non-ST elevation [place]/cardiomyopathy with ejection fraction 25% 4. Status post respiratory failure 5. Dysphasia==> possible ongoing aspiration, patient getting tube feedings through NG tube 6. Head lies status post treatment Plan: Hemodynamically stable, WBC tracing down, no fevers, continue antibiotics , continue anti-aspiration measures, monitor white blood cell count. Plan for CABG [facility] staff Problems: Consultation Date/Type/Reason Admit Date/Time Dec 10, 2016 at 16:55 Initial Consult Date 12/12/16 Type of Consultation: ID Referring Provider: ROBEL PETTY MD Exam/Review of Systems Vital Signs Vitals Vital Signs Date Time Temp Pulse Resp B/P Pulse Ox O2 Delivery O2 Flow Rate FiO2 12/22/16 12:30 100 12/22/16 11:21 98.2 20 100/50 96 12/22/16 08:14 Nasal Cannula 3.0 12/20/16 07:06 45 Intake and Output 12/21/16 12/21/16 12/22/16 15:00 23:00 07:00 Intake Total 50 ml 930 ml 280 ml Output Total 900 ml 700 ml Balance 50 ml 30 ml -420 ml Results Result Diagram: 12/22/16 0959 12/22/16 0959 Results 24 hrs Laboratory Tests Test 12/21/16 17:32 12/21/16 19:48 12/22/16 01:39 12/22/16 04:50 Bedside Glucose 305 H 249 H 341 H 226 H Test 12/22/16 08:12 12/22/16 09:59 Bedside Glucose 189 White Blood Count 13.5 #H Red Blood Count 4.06 L Hemoglobin 12.0 Hematocrit 39.3 Mean Corpuscular Volume 96.8 Mean Corpuscular Hemoglobin 29.6 Mean Corpuscular Hemoglobin Concent 30.5 L Red Cell Distribution Width 13.8 Platelet Count 661 H Mean Platelet Volume 10.7 H Neutrophils % 78.5 H Lymphocytes % 8.5 L Monocytes % 7.1 Eosinophils % 4.1 Basophils % 1.0 Nucleated Red Blood Cells % 0.0 Neutrophils # 10.6 H Lymphocytes # 1.1 Monocytes # 1.0 H Eosinophils # 0.6 H Basophils # 0.1 Nucleated Red Blood Cells # 0.0 Sodium Level 146 H Potassium Level 5.0 Chloride Level 105 Carbon Dioxide Level 38 H Anion Gap 8 Blood Urea Nitrogen 26 H Creatinine 0.59 Glucose Level 223 H Calcium Level 9.9 Phosphorus Level 2.8 Magnesium Level 2.3 Total Bilirubin 0.2 Direct Bilirubin 0.00 Indirect Bilirubin 0.2 Aspartate Amino Transf (AST/SGOT) 25 Alanine Aminotransferase (ALT/SGPT) 35 Alkaline Phosphatase 148 H Total Protein 6.6 Albumin 3.5 Globulin 3.10 Albumin/Globulin Ratio 1.12 Medications Medications Current Medications Aspirin (Halfprin) 81 mg DAILY PO Last administered on 12/22/16 08:24; Admin Dose 81 MG; Start 12/11/16 at 09:00 Atorvastatin Calcium (Lipitor) 20 mg HS PO Last administered on 12/21/16 20:34 ; Admin Dose 20 MG; Start 12/10/16 at 21:00 Duloxetine HCl (Cymbalta) 20 mg DAILY PO Last administered on 12/22/16 08:24; Admin Dose 20 MG; Start 12/11/16 at 09:00 Gabapentin (Neurontin) 300 mg TID PO Last administered on 12/22/16 08:24; Admin Dose 300 MG; Start 12/10/16 at 21:00 Metoprolol Tartrate (Lopressor) 12.5 mg BID PO Last administered on 12/22/16 08:29; Admin Dose 12.5 MG; Start 12/10/16 at 21:00 Ticagrelor (Brilinta) 90 mg BID PO Last administered on 12/22/16 08:37; Admin Dose 90 MG; Start 12/10/16 at 21:00 Levothyroxine Sodium (Synthroid) 112 mcg DAILY@06 PO Last administered on 05:23; Admin Dose 112 MCG; Start 12/11/16 at 06:00 Insulin Aspart (Novolog Insulin Pen) NOVOLOG *MODERATE* ALGORI... Q4 SC Last administered on 12/22/16 08:37; Admin Dose 4 UNIT; Start 12/10/16 at 21:00 Miscellaneous Information 1 ea NOTE XX ; Start 12/10/16 at 18:30 Glucose (Glutose) 15 gm Q15M PRN PO DECREASED GLUCOSE; Start 12/10/16 at 18:30 Glucose (Glutose) 22.5 gm Q15M PRN PO DECREASED GLUCOSE; Start 12/10/16 at 18: 30 Dextrose (D50w Syringe) 25 ml Q15M PRN IV DECREASED GLUCOSE Last administered on 12/13/16 13:10; Admin Dose 25 ML; Start 12/10/16 at 18:30 Dextrose (D50w Syringe) 50 ml Q15M PRN IV DECREASED GLUCOSE; Start 12/10/16 at 18:30 Glucagon (Glucagen) 1 mg Q15M PRN IM DECREASED GLUCOSE; Start 12/10/16 at 18:30 Glucose (Glutose) 15 gm Q15M PRN BUCCAL DECREASED GLUCOSE; Start 12/10/16 at 18 :30 Acetaminophen (Tylenol Liquid) 650 mg Q6H PRN NGT PAIN AND OR ELEVATED TEMP Last administered on 12/19/16 22:35; Admin Dose 650 MG; Start 12/10/16 at 21:00 Acetaminophen (Tylenol Tab) 650 mg Q4H PRN PO NON-CARDIAC PAIN LEVEL (1-3); Start 12/11/16 at 13:00 Morphine Sulfate (morphine) 2 mg Q2H PRN IV FOR NON CARDIAC PAIN (4-10) Last administered on 12/15/16 10:33; Admin Dose 2 MG; Start 12/11/16 at 13:00 Al Hydrox/Mg Hydrox/Simethicone (Mag-Al Plus) 30 ml Q4H PRN PO GASTROINTESTINAL UPSET; Start 12/11/16 at 13:00 Ondansetron HCl (Zofran Inj) 4 mg Q4H PRN IV NAUSEA AND/OR VOMITING; Start at 13:00 Senna/Docusate Sodium (Senokot-S) 2 tab HS NGT Last administered on 12/21/16 20 :35; Admin Dose 2 TAB; Start 12/15/16 at 21:00 Lisinopril (Zestril) 2.5 mg DAILY PO Last administered on 12/22/16 08:28; Admin Dose 2.5 MG; Start 12/18/16 at 09:00 Heparin Sodium (Porcine) (Heparin (5000 Units/0.5 ml)) 5,000 unit BID SC Last administered on 12/22/16 08:36; Admin Dose 5,000 UNIT; Start 12/17/16 at 21:00 Famotidine 20 mg 20 mg HS PO Last administered on 12/21/16 20:36; Admin Dose 20 MG; Start 12/17/16 at 21:00 Caspofungin 50 mg/ Sodium Chloride 250 ml @ 250 mls/hr Q24H IVPB Last administered on 12/21/16 17:33; Admin Dose 250 MLS/HR; Start 12/19/16 at 18:00 Cefepime HCl (Maxipime 1gm/50 ml (Pmx)) 50 ml @ 100 mls/hr Q12 IVPB Last administered on 12/22/16 08:25; Admin Dose 100 MLS/HR; Start 12/19/16 at 21:00 Insulin Glargine (Lantus) 25 unit DAILY@20 SC Last administered on 12/21/16 20: 32; Admin Dose 25 UNIT; Start 12/21/16 at 20:00 Potassium Chloride (Potassium Chloride Pwd/Soln) 40 meq DAILY NGT Last administered on 12/22/16 08:24; Admin Dose 40 MEQ; Start 12/21/16 at 14:30 DANYELLE ROSSI NP Dec 22, 2016 12:54
--- NOTE | 2016-12-22 15:14 | CONS ---
Date/Time of Note Date/Time of Note DATE: 12/22/16 TIME: 15:13 Consult Date/Type/Reason Admit Date/Time Dec 10, 2016 at 16:55 Initial Consult Date 12/12/16 Type of Consultation: Pulmonary Ordering Provider: ROBEL PETTY MD Subjective Patient comfortable this morning no new events, family at bedside Objective Vital Signs Date Time Temp Pulse Resp B/P Pulse Ox O2 Delivery O2 Flow Rate FiO2 12/22/16 14:23 77 20 98 Nasal Cannula 3.0 12/22/16 11:21 98.2 100/50 12/20/16 07:06 45 Intake and Output 12/21/16 12/21/16 12/22/16 15:00 23:00 07:00 Intake Total 50 ml 930 ml 280 ml Output Total 900 ml 700 ml Balance 50 ml 30 ml -420 ml Exam GENERAL: Chronically ill-appearing lady comfortable at rest nasogastric tube in place VITAL SIGNS: per chart NECK: Supple. No JVD or lymphadenopathy. CARDIAC EXAM: S1, S2. No added sounds or murmurs. CHEST: clear bilaterally, No added sounds, rales or wheezes ABDOMEN: Soft, nontender. No guarding or rebound. EXTREMITIES: No cyanosis, clubbing or edema. NEUROLOGIC: Generalized weakness. No focal deficits. Results/Medications Result Diagram: 12/22/1695812/22/1659 Results 24 hrs Laboratory Tests Test 12/21/16 17:32 12/21/16 19:48 12/22/16 01:39 12/22/16 04:50 Bedside Glucose 305 H 249 H 341 H 226 H Test 12/22/16 08:12 12/22/16 09:59 12/22/16 13:27 Bedside Glucose 189 244 H White Blood Count 13.5 #H Red Blood Count 4.06 L Hemoglobin 12.0 Hematocrit 39.3 Mean Corpuscular Volume 96.8 Mean Corpuscular Hemoglobin 29.6 Mean Corpuscular Hemoglobin Concent 30.5 L Red Cell Distribution Width 13.8 Platelet Count 661 H Mean Platelet Volume 10.7 H Neutrophils % 78.5 H Lymphocytes % 8.5 L Monocytes % 7.1 Eosinophils % 4.1 Basophils % 1.0 Nucleated Red Blood Cells % 0.0 Neutrophils # 10.6 H Lymphocytes # 1.1 Monocytes # 1.0 H Eosinophils # 0.6 H Basophils # 0.1 Nucleated Red Blood Cells # 0.0 Sodium Level 146 H Potassium Level 5.0 Chloride Level 105 Carbon Dioxide Level 38 H Anion Gap 8 Blood Urea Nitrogen 26 H Creatinine 0.59 Glucose Level 223 H Calcium Level 9.9 Phosphorus Level 2.8 Magnesium Level 2.3 Total Bilirubin 0.2 Direct Bilirubin 0.00 Indirect Bilirubin 0.2 Aspartate Amino Transf (AST/SGOT) 25 Alanine Aminotransferase (ALT/SGPT) 35 Alkaline Phosphatase 148 H Total Protein 6.6 Albumin 3.5 Globulin 3.10 Albumin/Globulin Ratio 1.12 Medications Current Medications Aspirin (Halfprin) 81 mg DAILY PO Last administered on 12/22/16 08:24; Admin Dose 81 MG; Start 12/11/16 at 09:00 Atorvastatin Calcium (Lipitor) 20 mg HS PO Last administered on 12/21/16 20:34 ; Admin Dose 20 MG; Start 12/10/16 at 21:00 Duloxetine HCl (Cymbalta) 20 mg DAILY PO Last administered on 12/22/16 08:24; Admin Dose 20 MG; Start 12/11/16 at 09:00 Gabapentin (Neurontin) 300 mg TID PO Last administered on 12/22/16 13:28; Admin Dose 300 MG; Start 12/10/16 at 21:00 Metoprolol Tartrate (Lopressor) 12.5 mg BID PO Last administered on 12/22/16 08:29; Admin Dose 12.5 MG; Start 12/10/16 at 21:00 Ticagrelor (Brilinta) 90 mg BID PO Last administered on 12/22/16 08:37; Admin Dose 90 MG; Start 12/10/16 at 21:00 Levothyroxine Sodium (Synthroid) 112 mcg DAILY@06 PO Last administered on 05:23; Admin Dose 112 MCG; Start 12/11/16 at 06:00 Insulin Aspart (Novolog Insulin Pen) NOVOLOG *MODERATE* ALGORI... Q4 SC Last administered on 12/22/16 13:41; Admin Dose 6 UNIT; Start 12/10/16 at 21:00 Miscellaneous Information 1 ea NOTE XX ; Start 12/10/16 at 18:30 Glucose (Glutose) 15 gm Q15M PRN PO DECREASED GLUCOSE; Start 12/10/16 at 18:30 Glucose (Glutose) 22.5 gm Q15M PRN PO DECREASED GLUCOSE; Start 12/10/16 at 18: 30 Dextrose (D50w Syringe) 25 ml Q15M PRN IV DECREASED GLUCOSE Last administered on 12/13/16 13:10; Admin Dose 25 ML; Start 12/10/16 at 18:30 Dextrose (D50w Syringe) 50 ml Q15M PRN IV DECREASED GLUCOSE; Start 12/10/16 at 18:30 Glucagon (Glucagen) 1 mg Q15M PRN IM DECREASED GLUCOSE; Start 12/10/16 at 18:30 Glucose (Glutose) 15 gm Q15M PRN BUCCAL DECREASED GLUCOSE; Start 12/10/16 at 18 :30 Acetaminophen (Tylenol Liquid) 650 mg Q6H PRN NGT PAIN AND OR ELEVATED TEMP Last administered on 12/19/16 22:35; Admin Dose 650 MG; Start 12/10/16 at 21:00 Acetaminophen (Tylenol Tab) 650 mg Q4H PRN PO NON-CARDIAC PAIN LEVEL (1-3); Start 12/11/16 at 13:00 Morphine Sulfate (morphine) 2 mg Q2H PRN IV FOR NON CARDIAC PAIN (4-10) Last administered on 12/15/16 10:33; Admin Dose 2 MG; Start 12/11/16 at 13:00 Al Hydrox/Mg Hydrox/Simethicone (Mag-Al Plus) 30 ml Q4H PRN PO GASTROINTESTINAL UPSET; Start 12/11/16 at 13:00 Ondansetron HCl (Zofran Inj) 4 mg Q4H PRN IV NAUSEA AND/OR VOMITING; Start at 13:00 Senna/Docusate Sodium (Senokot-S) 2 tab HS NGT Last administered on 12/21/16 20 :35; Admin Dose 2 TAB; Start 12/15/16 at 21:00 Lisinopril (Zestril) 2.5 mg DAILY PO Last administered on 12/22/16 08:28; Admin Dose 2.5 MG; Start 12/18/16 at 09:00 Heparin Sodium (Porcine) (Heparin (5000 Units/0.5 ml)) 5,000 unit BID SC Last administered on 12/22/16 08:36; Admin Dose 5,000 UNIT; Start 12/17/16 at 21:00 Famotidine 20 mg 20 mg HS PO Last administered on 12/21/16 20:36; Admin Dose 20 MG; Start 12/17/16 at 21:00 Caspofungin 50 mg/ Sodium Chloride 250 ml @ 250 mls/hr Q24H IVPB Last administered on 12/21/16 17:33; Admin Dose 250 MLS/HR; Start 12/19/16 at 18:00 Cefepime HCl (Maxipime 1gm/50 ml (Pmx)) 50 ml @ 100 mls/hr Q12 IVPB Last administered on 12/22/16 08:25; Admin Dose 100 MLS/HR; Start 12/19/16 at 21:00 Insulin Glargine (Lantus) 25 unit DAILY@20 SC Last administered on 12/21/16 20: 32; Admin Dose 25 UNIT; Start 12/21/16 at 20:00 Potassium Chloride (Potassium Chloride Pwd/Soln) 40 meq DAILY NGT Last administered on 12/22/16 08:24; Admin Dose 40 MEQ; Start 12/21/16 at 14:30 Assessment/Plan Chief Complaint/Hosp Course IMP: 1. s/p NSTEMI 2. Resp Failure--due to pulm edema now extubated on nasal cannula oxygen with intermittent BiPAP 3. AMS-resolved likely toxic metabolic encephalopathy 4. RLL pneumonia 5. Anemia 6. Dysphagia RECS: 1. Replete K+ and increase free H2O 2. Continue BiPAP as needed 3. Continue cefepime 4. TF/ Free H2O 7. Speech therapy recommendations Problems: STEFANI GONZALES MD, [facility] Dec 22, 2016 15:14
--- NOTE | 2016-12-22 17:28 | RADRPT ---
PROCEDURE: XR Chest. CLINICAL INDICATION: Shortness of breath. TECHNIQUE: Single frontal view. COMPARISON: 12/20/2016. FINDINGS: The right arm PICC line and nasogastric tube remain in satisfactory position. There is consolidatio n at the right lung base consistent with pneumonia, slightly improved. The lungs are otherwise beverly r. The heart size is normal. There is no pleural effusion. There is no pneumothorax. IMPRESSION: 1. Slightly improved right basilar pneumonia. 2. No other new abnormality. RPTAT: QQ .Alonso Brooks MD, MD Date Time Electronically viewed and signed by .Alonso Brooks MD, MD on 12/22/2016 17:27 .R/
[2016-12-22] MEDS: CASPOFUNGIN 50 MG in SOD CHLORIDE 0.9% 250 ML IVPB SCH (18:06)
[2016-12-22] MEDS: FAMOTIDINE 20 MG TAB PO SCH (20:18)
[2016-12-22] MEDS: SENNA/DOCUSATE NA (8.6MG/50MG) TAB NGT SCH (20:19)
[2016-12-22] MEDS: INSULIN GLARGINE [LANtus] 3 ML PEN SC SCH (20:29)
[2016-12-22] MEDS: ATORVASTATIN 20 MG TAB PO SCH (20:32)
[2016-12-23] VITALS (14 sets, daily range): BP systolic 89–111; BP diastolic 40–56; PULSE 99–110; RESP 16–20
[2016-12-23] MEDS: ALBUTEROL/IPRATROPIUM (NEB) 3 ML AMP HHN SCH ×4 (01:23→19:44)
[2016-12-23] MEDS: INSULIN ASPART [NOVOLOG] 3 ML PEN SC SCH ×6 (01:27→21:56)
[2016-12-23] MEDS: FUROSEMIDE 20 MG INJ IV SCH ×2 (05:08→17:58)
[2016-12-23] MEDS: LEVOTHYROXINE 112 MCG TAB PO SCH (05:08)
[2016-12-23] MEDS: POTASSIUM CHLORIDE 20 MEQ POWDER FOR ORAL SOLN NGT SCH (09:00)
--- NOTE | 2016-12-23 09:05 | PN ---
Date/Time of Note Date/Time of Note DATE: 12/23/16 TIME: 09:05 Assessment/Plan Lines/Catheters IV Catheter Type (from Nrs): Saline Lock Mccray in Place (from Nrs): Yes Assessment/Plan Chief Complaint/Hosp Course CAD, status post non-ST elevation [place] History of lice Cardiomyopathy with ejection fraction 25% Respiratory failure Patient is not a candidate to undergo coronary artery bypass grafting at this time Still on BIPAP FiO2 of 40% Would continue medical management Diuretics Plan for possible coronary artery bypass grafting when medically more stable Will discuss with the family Problems: Subjective 24 Hr Interval Summary Constitutional: improved Exam/Review of Systems Vital Signs Vitals Vital Signs Date Time Temp Pulse Resp B/P Pulse Ox O2 Delivery O2 Flow Rate FiO2 12/23/16 08:19 107 12/23/16 08:01 20 96 Nasal Cannula 3.0 12/23/16 07:54 106/55 12/23/16 07:15 99.4 12/20/16 07:06 45 Intake and Output 12/22/16 12/22/16 12/23/16 15:00 23:00 07:00 Intake Total 1270 ml 780 ml Output Total 800 ml 500 ml Balance 470 ml 280 ml Exam Neck: non-tender, supple Respiratory: clear to auscultation, normal air movement Cardiovascular: nl pulses, regular rate and rhythm Gastrointestinal: nl liver, spleen, non-tender, soft Results Result Diagram: 12/22/16 0959 12/22/16 0959 MALECHELA BELTRAN MD Dec 23, 2016 09:05
[2016-12-23] MEDS: LISINOPRIL 5 MG TAB PO SCH (09:38)
[2016-12-23] MEDS: GABAPENTIN 300 MG CAP PO SCH ×3 (09:38→20:57)
[2016-12-23] MEDS: ASPIRIN (EC) 81 MG TAB PO SCH (09:38)
[2016-12-23] MEDS: DULOXETINE 20 MG CAP DR PO SCH (09:39)
[2016-12-23] MEDS: TICAGRELOR 90 MG TABLET PO SCH ×2 (09:45→21:08)
[2016-12-23] MEDS: HEPARIN 5,000 UNIT/0.5 ML VIAL SC SCH ×2 (09:48→20:59)
[2016-12-23] MEDS: CEFEPIME 1GM/50 ML (PMX) 50 ML IVPB SCH ×2 (09:49→20:56)
[2016-12-23] MEDS: METOPROLOL 25 MG TAB PO SCH ×2 (11:00→21:00)
--- NOTE | 2016-12-23 12:14 | CONS ---
Date/Time of Note Date/Time of Note DATE: 12/23/16 TIME: 12:13 Assessment/Plan Assessment/Plan Additional Assessment/Plan 1.NSTEMI-peak trop>60 Now dowtrended significantly s/p LHC with patent RCA stents and high grade disease of LAD/LCX with small caliber vessels and recc for CABG - CT surgery follows 2.cardiomyopathy-LVEF 40-45 BY OSH echo. 25% by echo read here 3.Hypotension-improved off of pressors and stable tolerating low doses of BB/ ACEI 4.resp failure s/p extubation requiring PRN BIPAP 5.anemia 6. AMS/encephalopathy 7. PNA - now with fever - on anti-bx, ID follows 8. COPD Consultation Date/Type/Reason Admit Date/Time Dec 10, 2016 at 16:55 Initial Consult Date 12/12/16 Type of Consultation: Pulmonary Referring Provider: ROBEL PETTY MD 24 HR Interval Summary Free Text/Dictation NO acutecahnge - fever with tach - on anti-bx per ID, no CP now ROS: + fever, + chills, no nausea, no vomiting, no diarrhea/constipation No recent weight changes No chest pain, no PND, no orthopnea No dizziness, blurred vision No thirst, no heat or cold intolerance Exam/Review of Systems Vital Signs Vitals Vital Signs Date Time Temp Pulse Resp B/P Pulse Ox O2 Delivery O2 Flow Rate FiO2 12/23/16 12:09 103 12/23/16 12:02 101.1 19 101/53 97 12/23/16 08:01 Nasal Cannula 3.0 12/20/16 07:06 45 Intake and Output 12/22/16 12/22/16 12/23/16 15:00 23:00 07:00 Intake Total 1270 ml 780 ml Output Total 800 ml 500 ml Balance 470 ml 280 ml Exam General: WN/WD/NAD, AOx 2-3 HEENT: Unicetric/atraumatic/EOMI ( follow commands) NECK: JVD elevated, no thyromegaly, NGT Lymph: no lymphadenopathy HEART: regular with no S3, II/ systolic murmur at apex LUNGS: Coarse sounds ABD: soft, NT, ND, +BS : Intact Neuro: non focal SKIN: chronic changes EXT: trace edema Results Result Diagram: 12/22/1695812/22/16958 Results 24 hrs Laboratory Tests Test 12/22/16 13:27 12/22/16 17:34 12/22/16 20:16 12/23/16 01:20 Bedside Glucose 244 H 263 H 297 H 151 Test 12/23/16 04:50 12/23/16 08:03 Bedside Glucose 171 237 H Medications Medications Current Medications Aspirin (Halfprin) 81 mg DAILY PO Last administered on 12/23/16 09:38; Admin Dose 81 MG; Start 12/11/16 at 09:00 Atorvastatin Calcium (Lipitor) 20 mg HS PO Last administered on 12/22/16 20:32 ; Admin Dose 20 MG; Start 12/10/16 at 21:00 Duloxetine HCl (Cymbalta) 20 mg DAILY PO Last administered on 12/23/16 09:39; Admin Dose 20 MG; Start 12/11/16 at 09:00 Gabapentin (Neurontin) 300 mg TID PO Last administered on 12/23/16 09:38; Admin Dose 300 MG; Start 12/10/16 at 21:00 Metoprolol Tartrate (Lopressor) 12.5 mg BID PO Last administered on 12/22/16 08:29; Admin Dose 12.5 MG; Start 12/10/16 at 21:00 Ticagrelor (Brilinta) 90 mg BID PO Last administered on 12/23/16 09:45; Admin Dose 90 MG; Start 12/10/16 at 21:00 Levothyroxine Sodium (Synthroid) 112 mcg DAILY@06 PO Last administered on 05:08; Admin Dose 112 MCG; Start 12/11/16 at 06:00 Insulin Aspart (Novolog Insulin Pen) NOVOLOG *MODERATE* ALGORI... Q4 SC Last administered on 12/23/16 08:23; Admin Dose 6 UNIT; Start 12/10/16 at 21:00 Miscellaneous Information 1 ea NOTE XX ; Start 12/10/16 at 18:30 Glucose (Glutose) 15 gm Q15M PRN PO DECREASED GLUCOSE; Start 12/10/16 at 18:30 Glucose (Glutose) 22.5 gm Q15M PRN PO DECREASED GLUCOSE; Start 12/10/16 at 18: 30 Dextrose (D50w Syringe) 25 ml Q15M PRN IV DECREASED GLUCOSE Last administered on 12/13/16 13:10; Admin Dose 25 ML; Start 12/10/16 at 18:30 Dextrose (D50w Syringe) 50 ml Q15M PRN IV DECREASED GLUCOSE; Start 12/10/16 at 18:30 Glucagon (Glucagen) 1 mg Q15M PRN IM DECREASED GLUCOSE; Start 12/10/16 at 18:30 Glucose (Glutose) 15 gm Q15M PRN BUCCAL DECREASED GLUCOSE; Start 12/10/16 at 18 :30 Acetaminophen (Tylenol Liquid) 650 mg Q6H PRN NGT PAIN AND OR ELEVATED TEMP Last administered on 12/19/16 22:35; Admin Dose 650 MG; Start 12/10/16 at 21:00 Acetaminophen (Tylenol Tab) 650 mg Q4H PRN PO NON-CARDIAC PAIN LEVEL (1-3); Start 12/11/16 at 13:00 Morphine Sulfate (morphine) 2 mg Q2H PRN IV FOR NON CARDIAC PAIN (4-10) Last administered on 12/15/16 10:33; Admin Dose 2 MG; Start 12/11/16 at 13:00 Al Hydrox/Mg Hydrox/Simethicone (Mag-Al Plus) 30 ml Q4H PRN PO GASTROINTESTINAL UPSET; Start 12/11/16 at 13:00 Ondansetron HCl (Zofran Inj) 4 mg Q4H PRN IV NAUSEA AND/OR VOMITING; Start at 13:00 Senna/Docusate Sodium (Senokot-S) 2 tab HS NGT Last administered on 12/22/16 20:19; Admin Dose 2 TAB; Start 12/15/16 at 21:00 Lisinopril (Zestril) 2.5 mg DAILY PO Last administered on 12/23/16 09:38; Admin Dose 2.5 MG; Start 12/18/16 at 09:00 Heparin Sodium (Porcine) (Heparin (5000 Units/0.5 ml)) 5,000 unit BID SC Last administered on 12/23/16 09:48; Admin Dose 5,000 UNIT; Start 12/17/16 at 21:00 Famotidine 20 mg 20 mg HS PO Last administered on 12/22/16 20:18; Admin Dose 20 MG; Start 12/17/16 at 21:00 Caspofungin 50 mg/ Sodium Chloride 250 ml @ 250 mls/hr Q24H IVPB Last administered on 12/22/16 18:06; Admin Dose 250 MLS/HR; Start 12/19/16 at 18:00 Cefepime HCl (Maxipime 1gm/50 ml (Pmx)) 50 ml @ 100 mls/hr Q12 IVPB Last administered on 12/23/16 09:49; Admin Dose 100 MLS/HR; Start 12/19/16 at 21:00 Insulin Glargine (Lantus) 25 unit DAILY@20 SC Last administered on 12/22/16 20 :29; Admin Dose 25 UNIT; Start 12/21/16 at 20:00 Potassium Chloride (Potassium Chloride Pwd/Soln) 40 meq DAILY NGT Last administered on 12/22/16 08:24; Admin Dose 40 MEQ; Start 12/21/16 at 14:30 ARTIE MARADIAGA MD Dec 23, 2016 12:14
--- NOTE | 2016-12-23 12:38 | CONS ---
Date/Time of Note Date/Time of Note DATE: 12/23/16 TIME: 12:35 Consult Date/Type/Reason Admit Date/Time Dec 10, 2016 at 16:55 Initial Consult Date 12/12/16 Type of Consultation: Pulmonary Ordering Provider: ROBEL PETTY MD Subjective Comfortable, no shortness of breath Objective Vital Signs Date Time Temp Pulse Resp B/P Pulse Ox O2 Delivery O2 Flow Rate FiO2 12/23/16 12:09 103 12/23/16 12:02 101.1 19 101/53 97 12/23/16 08:01 Nasal Cannula 3.0 12/20/16 07:06 45 Intake and Output 12/22/16 12/22/16 12/23/16 15:00 23:00 07:00 Intake Total 1270 ml 780 ml Output Total 800 ml 500 ml Balance 470 ml 280 ml Results/Medications Result Diagram: 12/22/1659 12/22/1659 Results 24 hrs Laboratory Tests Test 12/22/16 13:27 12/22/16 17:34 12/22/16 20:16 12/23/16 01:20 Bedside Glucose 244 H 263 H 297 H 151 Test 12/23/16 04:50 12/23/16 08:03 Bedside Glucose 171 237 H Medications Current Medications Aspirin (Halfprin) 81 mg DAILY PO Last administered on 12/23/16 09:38; Admin Dose 81 MG; Start 12/11/16 at 09:00 Atorvastatin Calcium (Lipitor) 20 mg HS PO Last administered on 12/22/16 20:32 ; Admin Dose 20 MG; Start 12/10/16 at 21:00 Duloxetine HCl (Cymbalta) 20 mg DAILY PO Last administered on 12/23/16 09:39; Admin Dose 20 MG; Start 12/11/16 at 09:00 Gabapentin (Neurontin) 300 mg TID PO Last administered on 12/23/16 09:38; Admin Dose 300 MG; Start 12/10/16 at 21:00 Metoprolol Tartrate (Lopressor) 12.5 mg BID PO Last administered on 12/22/16 08:29; Admin Dose 12.5 MG; Start 12/10/16 at 21:00 Ticagrelor (Brilinta) 90 mg BID PO Last administered on 12/23/16 09:45; Admin Dose 90 MG; Start 12/10/16 at 21:00 Levothyroxine Sodium (Synthroid) 112 mcg DAILY@06 PO Last administered on 05:08; Admin Dose 112 MCG; Start 12/11/16 at 06:00 Insulin Aspart (Novolog Insulin Pen) NOVOLOG *MODERATE* ALGORI... Q4 SC Last administered on 12/23/16 08:23; Admin Dose 6 UNIT; Start 12/10/16 at 21:00 Miscellaneous Information 1 ea NOTE XX ; Start 12/10/16 at 18:30 Glucose (Glutose) 15 gm Q15M PRN PO DECREASED GLUCOSE; Start 12/10/16 at 18:30 Glucose (Glutose) 22.5 gm Q15M PRN PO DECREASED GLUCOSE; Start 12/10/16 at 18: 30 Dextrose (D50w Syringe) 25 ml Q15M PRN IV DECREASED GLUCOSE Last administered on 12/13/16 13:10; Admin Dose 25 ML; Start 12/10/16 at 18:30 Dextrose (D50w Syringe) 50 ml Q15M PRN IV DECREASED GLUCOSE; Start 12/10/16 at 18:30 Glucagon (Glucagen) 1 mg Q15M PRN IM DECREASED GLUCOSE; Start 12/10/16 at 18:30 Glucose (Glutose) 15 gm Q15M PRN BUCCAL DECREASED GLUCOSE; Start 12/10/16 at 18 :30 Acetaminophen (Tylenol Liquid) 650 mg Q6H PRN NGT PAIN AND OR ELEVATED TEMP Last administered on 12/19/16 22:35; Admin Dose 650 MG; Start 12/10/16 at 21:00 Acetaminophen (Tylenol Tab) 650 mg Q4H PRN PO NON-CARDIAC PAIN LEVEL (1-3); Start 12/11/16 at 13:00 Morphine Sulfate (morphine) 2 mg Q2H PRN IV FOR NON CARDIAC PAIN (4-10) Last administered on 12/15/16 10:33; Admin Dose 2 MG; Start 12/11/16 at 13:00 Al Hydrox/Mg Hydrox/Simethicone (Mag-Al Plus) 30 ml Q4H PRN PO GASTROINTESTINAL UPSET; Start 12/11/16 at 13:00 Ondansetron HCl (Zofran Inj) 4 mg Q4H PRN IV NAUSEA AND/OR VOMITING; Start at 13:00 Senna/Docusate Sodium (Senokot-S) 2 tab HS NGT Last administered on 12/22/16 20:19; Admin Dose 2 TAB; Start 12/15/16 at 21:00 Lisinopril (Zestril) 2.5 mg DAILY PO Last administered on 12/23/16 09:38; Admin Dose 2.5 MG; Start 12/18/16 at 09:00 Heparin Sodium (Porcine) (Heparin (5000 Units/0.5 ml)) 5,000 unit BID SC Last administered on 12/23/16 09:48; Admin Dose 5,000 UNIT; Start 12/17/16 at 21:00 Famotidine 20 mg 20 mg HS PO Last administered on 12/22/16 20:18; Admin Dose 20 MG; Start 12/17/16 at 21:00 Caspofungin 50 mg/ Sodium Chloride 250 ml @ 250 mls/hr Q24H IVPB Last administered on 12/22/16 18:06; Admin Dose 250 MLS/HR; Start 12/19/16 at 18:00 Cefepime HCl (Maxipime 1gm/50 ml (Pmx)) 50 ml @ 100 mls/hr Q12 IVPB Last administered on 12/23/16 09:49; Admin Dose 100 MLS/HR; Start 12/19/16 at 21:00 Insulin Glargine (Lantus) 25 unit DAILY@20 SC Last administered on 12/22/16 20 :29; Admin Dose 25 UNIT; Start 12/21/16 at 20:00 Potassium Chloride (Potassium Chloride Pwd/Soln) 40 meq DAILY NGT Last administered on 12/22/16 08:24; Admin Dose 40 MEQ; Start 12/21/16 at 14:30 Assessment/Plan Chief Complaint/Hosp Course IMP: 1. s/p NSTEMI 2. Resp Failure--due to pulm edema now extubated on nasal cannula oxygen 3. AMS-resolved likely toxic metabolic encephalopathy 4. RLL pneumonia 5. Anemia 6. Dysphagia RECS: 1. Replete K+ and increase free H2O 2. Continue o2 3. Continue cefepime 4. TF/ Free H2O 5. Speech therapy recommendations, advance diet as tolerated. 6. Would defer cardiac surgery until more stable. Consider snf then readmission when more stable. Problems: STEFANI GONZALES MD, [facility] Dec 23, 2016 12:38
--- NOTE | 2016-12-23 14:04 | CONS ---
Date/Time of Note Date/Time of Note DATE: 12/23/16 TIME: 14:03 Assessment/Plan Assessment/Plan Chief Complaint/Hosp Course Await, looks comfortable, family at bedside. No labs this morning Microbiology: Sputum culture on December 19 grew Klebsiella pneumonia and staph aureus Indwelling's NG tube, Mccray catheter, right upper extremity PICC line Antibiotics: Cefepime Cancidas Physical examination: Well-developed chronically ill-appearing older looking 56- year-old woman who is awake in no distress. Head atraumatic normocephalic sclera nonicteric. Bugle mucosa pink dry neck is supple chest rise symmetrical breath sounds clear, diminished basis. Heart S1-S2. Abdomen soft bowel tones present. Extremities without cyanosis. Assessment: 1. Leukocytosis likely secondary to pneumonia 2. Fungal UTI 3. Non-ST elevation VT/cardiomyopathy with ejection fraction 25% 4. Status post respiratory failure 5. Dysphasia==> possible ongoing aspiration, patient getting tube feedings through NG tube 6. Head lies status post treatment Plan: Remain stable, WBC tracing down, no fevers, continue antibiotics, continue anti-aspiration measures, monitor white blood cell count. Plan for CABG once medically stable [facility] staff Problems: Consultation Date/Type/Reason Admit Date/Time Dec 10, 2016 at 16:55 Initial Consult Date 12/12/16 Type of Consultation: ID Referring Provider: ROBEL PETTY MD Exam/Review of Systems Vital Signs Vitals Vital Signs Date Time Temp Pulse Resp B/P Pulse Ox O2 Delivery O2 Flow Rate FiO2 12/23/16 13:49 83 18 95 Nasal Cannula 2.0 12/23/16 12:02 101.1 101/53 12/20/16 07:06 45 Intake and Output 12/22/16 12/22/16 12/23/16 15:00 23:00 07:00 Intake Total 1270 ml 780 ml Output Total 800 ml 500 ml Balance 470 ml 280 ml Results Result Diagram: 12/22/16 0959 12/22/16 0959 Results 24 hrs Laboratory Tests Test 12/22/16 17:34 12/22/16 20:16 12/23/16 01:20 12/23/16 04:50 Bedside Glucose 263 H 297 H 151 171 Test 12/23/16 08:03 Bedside Glucose 237 H Medications Medications Current Medications Aspirin (Halfprin) 81 mg DAILY PO Last administered on 12/23/16 09:38; Admin Dose 81 MG; Start 12/11/16 at 09:00 Atorvastatin Calcium (Lipitor) 20 mg HS PO Last administered on 12/22/16 20:32 ; Admin Dose 20 MG; Start 12/10/16 at 21:00 Duloxetine HCl (Cymbalta) 20 mg DAILY PO Last administered on 12/23/16 09:39; Admin Dose 20 MG; Start 12/11/16 at 09:00 Gabapentin (Neurontin) 300 mg TID PO Last administered on 12/23/16 09:38; Admin Dose 300 MG; Start 12/10/16 at 21:00 Metoprolol Tartrate (Lopressor) 12.5 mg BID PO Last administered on 12/22/16 08:29; Admin Dose 12.5 MG; Start 12/10/16 at 21:00 Ticagrelor (Brilinta) 90 mg BID PO Last administered on 12/23/16 09:45; Admin Dose 90 MG; Start 12/10/16 at 21:00 Levothyroxine Sodium (Synthroid) 112 mcg DAILY@06 PO Last administered on 05:08; Admin Dose 112 MCG; Start 12/11/16 at 06:00 Insulin Aspart (Novolog Insulin Pen) NOVOLOG *MODERATE* ALGORI... Q4 SC Last administered on 12/23/16 08:23; Admin Dose 6 UNIT; Start 12/10/16 at 21:00 Miscellaneous Information 1 ea NOTE XX ; Start 12/10/16 at 18:30 Glucose (Glutose) 15 gm Q15M PRN PO DECREASED GLUCOSE; Start 12/10/16 at 18:30 Glucose (Glutose) 22.5 gm Q15M PRN PO DECREASED GLUCOSE; Start 12/10/16 at 18: 30 Dextrose (D50w Syringe) 25 ml Q15M PRN IV DECREASED GLUCOSE Last administered on 12/13/16 13:10; Admin Dose 25 ML; Start 12/10/16 at 18:30 Dextrose (D50w Syringe) 50 ml Q15M PRN IV DECREASED GLUCOSE; Start 12/10/16 at 18:30 Glucagon (Glucagen) 1 mg Q15M PRN IM DECREASED GLUCOSE; Start 12/10/16 at 18:30 Glucose (Glutose) 15 gm Q15M PRN BUCCAL DECREASED GLUCOSE; Start 12/10/16 at 18 :30 Acetaminophen (Tylenol Liquid) 650 mg Q6H PRN NGT PAIN AND OR ELEVATED TEMP Last administered on 12/19/16 22:35; Admin Dose 650 MG; Start 12/10/16 at 21:00 Acetaminophen (Tylenol Tab) 650 mg Q4H PRN PO NON-CARDIAC PAIN LEVEL (1-3); Start 12/11/16 at 13:00 Morphine Sulfate (morphine) 2 mg Q2H PRN IV FOR NON CARDIAC PAIN (4-10) Last administered on 12/15/16 10:33; Admin Dose 2 MG; Start 12/11/16 at 13:00 Al Hydrox/Mg Hydrox/Simethicone (Mag-Al Plus) 30 ml Q4H PRN PO GASTROINTESTINAL UPSET; Start 12/11/16 at 13:00 Ondansetron HCl (Zofran Inj) 4 mg Q4H PRN IV NAUSEA AND/OR VOMITING; Start at 13:00 Senna/Docusate Sodium (Senokot-S) 2 tab HS NGT Last administered on 12/22/16 20:19; Admin Dose 2 TAB; Start 12/15/16 at 21:00 Lisinopril (Zestril) 2.5 mg DAILY PO Last administered on 12/23/16 09:38; Admin Dose 2.5 MG; Start 12/18/16 at 09:00 Heparin Sodium (Porcine) (Heparin (5000 Units/0.5 ml)) 5,000 unit BID SC Last administered on 12/23/16 09:48; Admin Dose 5,000 UNIT; Start 12/17/16 at 21:00 Famotidine 20 mg 20 mg HS PO Last administered on 12/22/16 20:18; Admin Dose 20 MG; Start 12/17/16 at 21:00 Caspofungin 50 mg/ Sodium Chloride 250 ml @ 250 mls/hr Q24H IVPB Last administered on 12/22/16 18:06; Admin Dose 250 MLS/HR; Start 12/19/16 at 18:00 Cefepime HCl (Maxipime 1gm/50 ml (Pmx)) 50 ml @ 100 mls/hr Q12 IVPB Last administered on 12/23/16 09:49; Admin Dose 100 MLS/HR; Start 12/19/16 at 21:00 Insulin Glargine (Lantus) 25 unit DAILY@20 SC Last administered on 12/22/16 20 :29; Admin Dose 25 UNIT; Start 12/21/16 at 20:00 Potassium Chloride (Potassium Chloride Pwd/Soln) 40 meq DAILY NGT Last administered on 12/22/16 08:24; Admin Dose 40 MEQ; Start 12/21/16 at 14:30 DANYELLE ROSSI [employer] Dec 23, 2016 14:04
--- NOTE | 2016-12-23 16:11 | PN ---
Date/Time of Note Date/Time of Note DATE: 12/23/16 TIME: 16:09 Assessment/Plan VTE Prophylaxis VTE Prophylaxis Intervention: SCD's Lines/Catheters IV Catheter Type (from Nrs): Saline Lock Urinary Cath still in place: No Assessment/Plan Assessment/Plan 56 yo F with PMHx DM2 nonadherent to insulin, HTN, presented with DKA and NSTEMI. Pt is sp LHC with PCI but per cardiology also needs CABG. #NSTEMI sp PCI with CAD warranting CABG -cont DAPT, BP meds, statin -CT surgery following for CABG eval #ICM: EF 25% -cont med management #DM2: a1c 9s. Continue lantus and aspart increase lantus from 25 to 30 as BGs elevated. #aspiration pna, ?fungal cystitis: antimicrobials as per ID #hypothyroid: comt home meds PT/OT/ARU evals for discharge planning Subjective 24 Hr Interval Summary Free Text/Dictation no complaints. Exam/Review of Systems Vital Signs Vitals Vital Signs Date Time Temp Pulse Resp B/P Pulse Ox O2 Delivery O2 Flow Rate FiO2 12/23/16 15:37 99.2 103 16 100/54 94 12/23/16 13:49 Nasal Cannula 2.0 12/20/16 07:06 45 Intake and Output 12/22/16 12/22/16 12/23/16 15:00 23:00 07:00 Intake Total 1270 ml 780 ml Output Total 800 ml 500 ml Balance 470 ml 280 ml Exam laying flat no mrg lungs clear abd soft no rashes Results Result Diagram: 12/22/1659 12/22/16 0959 Results 24 hrs Laboratory Tests Test 12/22/16 17:34 12/22/16 20:16 12/23/16 01:20 12/23/16 04:50 Bedside Glucose 263 H 297 H 151 171 Test 12/23/16 08:03 12/23/16 14:43 Bedside Glucose 237 H 259 H Medications Medications Current Medications Aspirin (Halfprin) 81 mg DAILY PO Last administered on 12/23/16 09:38; Admin Dose 81 MG; Start 12/11/16 at 09:00 Atorvastatin Calcium (Lipitor) 20 mg HS PO Last administered on 12/22/16 20:32 ; Admin Dose 20 MG; Start 12/10/16 at 21:00 Duloxetine HCl (Cymbalta) 20 mg DAILY PO Last administered on 12/23/16 09:39; Admin Dose 20 MG; Start 12/11/16 at 09:00 Gabapentin (Neurontin) 300 mg TID PO Last administered on 12/23/16 09:38; Admin Dose 300 MG; Start 12/10/16 at 21:00 Metoprolol Tartrate (Lopressor) 12.5 mg BID PO Last administered on 12/22/16 08:29; Admin Dose 12.5 MG; Start 12/10/16 at 21:00 Ticagrelor (Brilinta) 90 mg BID PO Last administered on 12/23/16 09:45; Admin Dose 90 MG; Start 12/10/16 at 21:00 Levothyroxine Sodium (Synthroid) 112 mcg DAILY@06 PO Last administered on 05:08; Admin Dose 112 MCG; Start 12/11/16 at 06:00 Insulin Aspart (Novolog Insulin Pen) NOVOLOG *MODERATE* ALGORI... Q4 SC Last administered on 12/23/16 14:49; Admin Dose 6 UNIT; Start 12/10/16 at 21:00 Miscellaneous Information 1 ea NOTE XX ; Start 12/10/16 at 18:30 Glucose (Glutose) 15 gm Q15M PRN PO DECREASED GLUCOSE; Start 12/10/16 at 18:30 Glucose (Glutose) 22.5 gm Q15M PRN PO DECREASED GLUCOSE; Start 12/10/16 at 18: 30 Dextrose (D50w Syringe) 25 ml Q15M PRN IV DECREASED GLUCOSE Last administered on 12/13/16 13:10; Admin Dose 25 ML; Start 12/10/16 at 18:30 Dextrose (D50w Syringe) 50 ml Q15M PRN IV DECREASED GLUCOSE; Start 12/10/16 at 18:30 Glucagon (Glucagen) 1 mg Q15M PRN IM DECREASED GLUCOSE; Start 12/10/16 at 18:30 Glucose (Glutose) 15 gm Q15M PRN BUCCAL DECREASED GLUCOSE; Start 12/10/16 at 18 :30 Acetaminophen (Tylenol Liquid) 650 mg Q6H PRN NGT PAIN AND OR ELEVATED TEMP Last administered on 12/19/16 22:35; Admin Dose 650 MG; Start 12/10/16 at 21:00 Acetaminophen (Tylenol Tab) 650 mg Q4H PRN PO NON-CARDIAC PAIN LEVEL (1-3); Start 12/11/16 at 13:00 Morphine Sulfate (morphine) 2 mg Q2H PRN IV FOR NON CARDIAC PAIN (4-10) Last administered on 12/15/16 10:33; Admin Dose 2 MG; Start 12/11/16 at 13:00 Al Hydrox/Mg Hydrox/Simethicone (Mag-Al Plus) 30 ml Q4H PRN PO GASTROINTESTINAL UPSET; Start 12/11/16 at 13:00 Ondansetron HCl (Zofran Inj) 4 mg Q4H PRN IV NAUSEA AND/OR VOMITING; Start at 13:00 Senna/Docusate Sodium (Senokot-S) 2 tab HS NGT Last administered on 12/22/16 20:19; Admin Dose 2 TAB; Start 12/15/16 at 21:00 Lisinopril (Zestril) 2.5 mg DAILY PO Last administered on 12/23/16 09:38; Admin Dose 2.5 MG; Start 12/18/16 at 09:00 Heparin Sodium (Porcine) (Heparin (5000 Units/0.5 ml)) 5,000 unit BID SC Last administered on 12/23/16 09:48; Admin Dose 5,000 UNIT; Start 12/17/16 at 21:00 Famotidine 20 mg 20 mg HS PO Last administered on 12/22/16 20:18; Admin Dose 20 MG; Start 12/17/16 at 21:00 Caspofungin 50 mg/ Sodium Chloride 250 ml @ 250 mls/hr Q24H IVPB Last administered on 12/22/16 18:06; Admin Dose 250 MLS/HR; Start 12/19/16 at 18:00 Cefepime HCl (Maxipime 1gm/50 ml (Pmx)) 50 ml @ 100 mls/hr Q12 IVPB Last administered on 12/23/16 09:49; Admin Dose 100 MLS/HR; Start 12/19/16 at 21:00 Potassium Chloride (Potassium Chloride Pwd/Soln) 40 meq DAILY NGT Last administered on 12/22/16 08:24; Admin Dose 40 MEQ; Start 12/21/16 at 14:30 Insulin Glargine (Lantus) 30 unit DAILY@20 SC ; Start 12/23/16 at 20:00; Status UNV ROBEL PETTY MD Dec 23, 2016 16:10
[2016-12-23] MEDS: CASPOFUNGIN 50 MG in SOD CHLORIDE 0.9% 250 ML IVPB SCH (17:58)
--- NOTE | 2016-12-23 18:26 | RADRPT ---
PROCEDURE: XR Chest. CLINICAL INDICATION: Feeding tube placement TECHNIQUE: Single frontal view of the chest. COMPARISON: 08/25/2016. FINDINGS: Feeding tube in place with tip in the proximal stomach. The cardiomediastinal silhouette is within normal limits. New atelectasis versus airspace disease at the right middle lobe. Mild atelectasis at the left lung base. No signs of pleural fluid or pneumot horax are seen. The osseous structures and soft tissues are unremarkable. IMPRESSION: 1. Feeding tube in place with tip in the proximal stomach. 2. New atelectasis versus airspace disease at the right middle lobe. RPTAT: [facility] Physician Kellen Date Time Electronically viewed and signed by Physician Kellen on 12/23/2016 18:25 RS/
[2016-12-23] MEDS: FAMOTIDINE 20 MG TAB PO SCH (20:56)
[2016-12-23] MEDS: SENNA/DOCUSATE NA (8.6MG/50MG) TAB NGT SCH (20:57)
[2016-12-23] MEDS: ATORVASTATIN 20 MG TAB PO SCH (20:57)
[2016-12-23] MEDS: INSULIN GLARGINE [LANtus] 3 ML PEN SC SCH (21:52)
[2016-12-23] MEDS ORDERED: POTASSIUM CHLORIDE 20 MEQ POWDER FOR ORAL SOLN NGT ONE (23:00)
[2016-12-23] MEDS: GUAIFENESIN 20 MG/ML 5ML CUP PO PRN (23:35)
[2016-12-23] MEDS: ACETAMINOPHEN 650MG/20.3ML CUP NGT PRN (23:35)
[2016-12-24] VITALS (13 sets, daily range): BP systolic 99–112; BP diastolic 48–60; PULSE 89–100; RESP 18–19
[2016-12-24] MEDS: INSULIN ASPART [NOVOLOG] 3 ML PEN SC SCH ×6 (01:10→21:00)
[2016-12-24] MEDS: ALBUTEROL/IPRATROPIUM (NEB) 3 ML AMP HHN SCH ×4 (01:58→20:53)
[2016-12-24] MEDS: LEVOTHYROXINE 112 MCG TAB PO SCH (05:08)
[2016-12-24] MEDS: FUROSEMIDE 20 MG INJ IV SCH ×2 (05:08→17:49)
[2016-12-24] MEDS: METOPROLOL 25 MG TAB PO SCH ×2 (09:00→21:10)
[2016-12-24] MEDS: LISINOPRIL 5 MG TAB PO SCH (09:00)
[2016-12-24] MEDS: DULOXETINE 20 MG CAP DR PO SCH (09:03)
[2016-12-24] MEDS: CEFEPIME 1GM/50 ML (PMX) 50 ML IVPB SCH ×2 (09:03→20:15)
[2016-12-24] MEDS: POTASSIUM CHLORIDE 20 MEQ POWDER FOR ORAL SOLN NGT SCH (09:03)
[2016-12-24] MEDS: ASPIRIN (EC) 81 MG TAB PO SCH (09:03)
[2016-12-24] MEDS: GABAPENTIN 300 MG CAP PO SCH ×3 (09:03→20:16)
[2016-12-24] MEDS: TICAGRELOR 90 MG TABLET PO SCH ×2 (09:06→20:18)
[2016-12-24] MEDS: HEPARIN 5,000 UNIT/0.5 ML VIAL SC SCH ×2 (09:06→20:21)
[2016-12-24 09:29] LABS: CALCIUM 9.8 mg/dl (8.4-10.2); CREATININE 0.53 mg/dl (0.44-1.00); POTASSIUM 3.8 mmol/L (3.5-5.1)
--- NOTE | 2016-12-24 11:11 | PN ---
Date/Time of Note Date/Time of Note DATE: 12/24/16 TIME: 11:10 Assessment/Plan VTE Prophylaxis VTE Prophylaxis Intervention: SCD's Lines/Catheters IV Catheter Type (from Nrs): Saline Lock Urinary Cath still in place: No Assessment/Plan Assessment/Plan 56 yo F with PMHx DM2 nonadherent to insulin, HTN, presented with DKA and NSTEMI. Pt is sp LHC with PCI but per cardiology also needs CABG. #NSTEMI sp PCI with CAD warranting CABG -cont DAPT, BP meds, statin -CT surgery following for CABG eval #ICM: EF 25% -cont med management #DM2: a1c 9s. Continue lantus and aspart continue current lantus dose of 30 units as AM BG in low 100s #aspiration pna, ?fungal cystitis: antimicrobials as per ID #hypothyroid: comt home meds PT/OT/ARU evals for discharge planning placed 7.11 Subjective 24 Hr Interval Summary Free Text/Dictation No complaints. Resting this AM Exam/Review of Systems Vital Signs Vitals Vital Signs Date Time Temp Pulse Resp B/P Pulse Ox O2 Delivery O2 Flow Rate FiO2 12/24/16 08:20 Nasal Cannula 2.0 12/24/16 08:08 89 12/24/16 07:32 18 98 12/24/16 07:06 98.4 99/51 12/20/16 07:06 45 Intake and Output 12/23/16 12/23/16 12/24/16 15:00 23:00 07:00 Intake Total 700 ml 940 ml Output Total 800 ml 900 ml Balance -100 ml 40 ml Exam nad, +NG in place no mrg lungs clear abd soft no rashes Results Result Diagram: 12/22/16 0959 12/24/16 0728 Results 24 hrs Laboratory Tests Test 12/23/16 14:43 12/23/16 17:46 12/23/16 21:42 12/24/16 01:07 Bedside Glucose 259 H 198 276 H 287 H Test 12/24/16 05:09 12/24/16 07:28 12/24/16 07:57 Bedside Glucose 176 111 Sodium Level 141 Potassium Level 3.8 Chloride Level 99 Carbon Dioxide Level 39 H Anion Gap 7 L Blood Urea Nitrogen 24 H Creatinine 0.53 Glucose Level 108 # Calcium Level 9.8 Medications Medications Current Medications Aspirin (Halfprin) 81 mg DAILY PO Last administered on 12/24/16 09:03; Admin Dose 81 MG; Start 12/11/16 at 09:00 Atorvastatin Calcium (Lipitor) 20 mg HS PO Last administered on 12/23/16 20:57 ; Admin Dose 20 MG; Start 12/10/16 at 21:00 Duloxetine HCl (Cymbalta) 20 mg DAILY PO Last administered on 12/24/16 09:03; Admin Dose 20 MG; Start 12/11/16 at 09:00 Gabapentin (Neurontin) 300 mg TID PO Last administered on 12/24/16 09:03; Admin Dose 300 MG; Start 12/10/16 at 21:00 Metoprolol Tartrate (Lopressor) 12.5 mg BID PO Last administered on 12/22/16 08:29; Admin Dose 12.5 MG; Start 12/10/16 at 21:00 Ticagrelor (Brilinta) 90 mg BID PO Last administered on 12/24/16 09:06; Admin Dose 90 MG; Start 12/10/16 at 21:00 Levothyroxine Sodium (Synthroid) 112 mcg DAILY@06 PO Last administered on 05:08; Admin Dose 112 MCG; Start 12/11/16 at 06:00 Insulin Aspart (Novolog Insulin Pen) NOVOLOG *MODERATE* ALGORI... Q4 SC Last administered on 12/24/16 05:13; Admin Dose 2 UNIT; Start 12/10/16 at 21:00 Miscellaneous Information 1 ea NOTE XX ; Start 12/10/16 at 18:30 Glucose (Glutose) 15 gm Q15M PRN PO DECREASED GLUCOSE; Start 12/10/16 at 18:30 Glucose (Glutose) 22.5 gm Q15M PRN PO DECREASED GLUCOSE; Start 12/10/16 at 18: 30 Dextrose (D50w Syringe) 25 ml Q15M PRN IV DECREASED GLUCOSE Last administered on 12/13/16 13:10; Admin Dose 25 ML; Start 12/10/16 at 18:30 Dextrose (D50w Syringe) 50 ml Q15M PRN IV DECREASED GLUCOSE; Start 12/10/16 at 18:30 Glucagon (Glucagen) 1 mg Q15M PRN IM DECREASED GLUCOSE; Start 12/10/16 at 18:30 Glucose (Glutose) 15 gm Q15M PRN BUCCAL DECREASED GLUCOSE; Start 12/10/16 at 18 :30 Acetaminophen (Tylenol Liquid) 650 mg Q6H PRN NGT PAIN AND OR ELEVATED TEMP Last administered on 12/23/16 23:35; Admin Dose 650 MG; Start 12/10/16 at 21:00 Acetaminophen (Tylenol Tab) 650 mg Q4H PRN PO NON-CARDIAC PAIN LEVEL (1-3); Start 12/11/16 at 13:00 Morphine Sulfate (morphine) 2 mg Q2H PRN IV FOR NON CARDIAC PAIN (4-10) Last administered on 12/15/16 10:33; Admin Dose 2 MG; Start 12/11/16 at 13:00 Al Hydrox/Mg Hydrox/Simethicone (Mag-Al Plus) 30 ml Q4H PRN PO GASTROINTESTINAL UPSET; Start 12/11/16 at 13:00 Ondansetron HCl (Zofran Inj) 4 mg Q4H PRN IV NAUSEA AND/OR VOMITING; Start at 13:00 Senna/Docusate Sodium (Senokot-S) 2 tab HS NGT Last administered on 12/23/16 20:57; Admin Dose 2 TAB; Start 12/15/16 at 21:00 Lisinopril (Zestril) 2.5 mg DAILY PO Last administered on 12/23/16 09:38; Admin Dose 2.5 MG; Start 12/18/16 at 09:00 Heparin Sodium (Porcine) (Heparin (5000 Units/0.5 ml)) 5,000 unit BID SC Last administered on 12/24/16 09:06; Admin Dose 5,000 UNIT; Start 12/17/16 at 21:00 Famotidine 20 mg 20 mg HS PO Last administered on 12/23/16 20:56; Admin Dose 20 MG; Start 12/17/16 at 21:00 Caspofungin 50 mg/ Sodium Chloride 250 ml @ 250 mls/hr Q24H IVPB Last administered on 12/23/16 17:58; Admin Dose 250 MLS/HR; Start 12/19/16 at 18:00 Cefepime HCl (Maxipime 1gm/50 ml (Pmx)) 50 ml @ 100 mls/hr Q12 IVPB Last administered on 12/24/16 09:03; Admin Dose 100 MLS/HR; Start 12/19/16 at 21:00 Potassium Chloride (Potassium Chloride Pwd/Soln) 40 meq DAILY NGT Last administered on 12/24/16 09:03; Admin Dose 40 MEQ; Start 12/21/16 at 14:30 Insulin Glargine (Lantus) 30 unit DAILY@20 SC Last administered on 12/23/16 21 :52; Admin Dose 30 UNIT; Start 12/23/16 at 20:00 Guaifenesin (Robitussin Liquid Cup) 100 mg Q6H PRN PO COUGH Last administered on 12/23/16 23:35; Admin Dose 100 MG; Start 12/23/16 at 23:00 ROBEL PETTY MD Dec 24, 2016 11:10
[2016-12-24] MEDS ORDERED: BARIUM SULFATE 135 ML (E-Z HD) PO ONE (11:40)
--- NOTE | 2016-12-24 12:13 | CONS ---
Date/Time of Note Date/Time of Note DATE: 12/24/16 TIME: 12:12 Assessment/Plan Assessment/Plan Chief Complaint/Hosp Course Awake, looks comfortable, tolerates tube feeding. Temperature 98.6 pulse 84 respirations 20 blood pressure 112/60 saturation 98 on 2 L nasal cannula. T-max 100.1 yesterday No labs today Microbiology: Sputum culture on December 19 grew Klebsiella pneumonia and staph aureus Indwelling's NG tube, Mccray catheter, right upper extremity PICC line Antibiotics: Cefepime Cancidas Physical examination: Well-developed, older looking 56-year-old woman who is awake in no distress. Head atraumatic normocephalic sclera nonicteric. Bugle mucosa pink dry neck is supple chest rise symmetrical breath sounds clear, diminished basis. Heart S1-S2. Abdomen soft bowel tones present. Extremities without cyanosis. Assessment: 1. Leukocytosis likely secondary to pneumonia 2. Fungal UTI 3. Non-ST elevation PR/cardiomyopathy with ejection fraction 25% 4. Status post respiratory failure 5. Dysphasia==> possible ongoing aspiration, patient getting tube feedings through NG tube 6. Head lies status post treatment Plan: Remain stable, still with low-grade fevers, will follow labs in a.m., continue antibiotics, continue anti-aspiration measures. Possible CABG once medically stable [facility] staff Problems: Consultation Date/Type/Reason Admit Date/Time Dec 10, 2016 at 16:55 Initial Consult Date 12/12/16 Type of Consultation: ID Referring Provider: ROBEL PETTY MD Exam/Review of Systems Vital Signs Vitals Vital Signs Date Time Temp Pulse Resp B/P Pulse Ox O2 Delivery O2 Flow Rate FiO2 12/24/16 12:08 93 12/24/16 11:30 98.6 19 112/60 98 12/24/16 08:20 Nasal Cannula 2.0 12/20/16 07:06 45 Intake and Output 12/23/16 12/23/16 12/24/16 15:00 23:00 07:00 Intake Total 700 ml 940 ml Output Total 800 ml 900 ml Balance -100 ml 40 ml Results Result Diagram: 12/22/16 0959 12/24/16 0728 Results 24 hrs Laboratory Tests Test 12/23/16 14:43 12/23/16 17:46 12/23/16 21:42 12/24/16 01:07 Bedside Glucose 259 H 198 276 H 287 H Test 12/24/16 05:09 12/24/16 07:28 12/24/16 07:57 Bedside Glucose 176 111 Sodium Level 141 Potassium Level 3.8 Chloride Level 99 Carbon Dioxide Level 39 H Anion Gap 7 L Blood Urea Nitrogen 24 H Creatinine 0.53 Glucose Level 108 # Calcium Level 9.8 Medications Medications Current Medications Aspirin (Halfprin) 81 mg DAILY PO Last administered on 12/24/16 09:03; Admin Dose 81 MG; Start 12/11/16 at 09:00 Atorvastatin Calcium (Lipitor) 20 mg HS PO Last administered on 12/23/16 20:57 ; Admin Dose 20 MG; Start 12/10/16 at 21:00 Duloxetine HCl (Cymbalta) 20 mg DAILY PO Last administered on 12/24/16 09:03; Admin Dose 20 MG; Start 12/11/16 at 09:00 Gabapentin (Neurontin) 300 mg TID PO Last administered on 12/24/16 09:03; Admin Dose 300 MG; Start 12/10/16 at 21:00 Metoprolol Tartrate (Lopressor) 12.5 mg BID PO Last administered on 12/22/16 08:29; Admin Dose 12.5 MG; Start 12/10/16 at 21:00 Ticagrelor (Brilinta) 90 mg BID PO Last administered on 12/24/16 09:06; Admin Dose 90 MG; Start 12/10/16 at 21:00 Levothyroxine Sodium (Synthroid) 112 mcg DAILY@06 PO Last administered on 05:08; Admin Dose 112 MCG; Start 12/11/16 at 06:00 Insulin Aspart (Novolog Insulin Pen) NOVOLOG *MODERATE* ALGORI... Q4 SC Last administered on 12/24/16 05:13; Admin Dose 2 UNIT; Start 12/10/16 at 21:00 Miscellaneous Information 1 ea NOTE XX ; Start 12/10/16 at 18:30 Glucose (Glutose) 15 gm Q15M PRN PO DECREASED GLUCOSE; Start 12/10/16 at 18:30 Glucose (Glutose) 22.5 gm Q15M PRN PO DECREASED GLUCOSE; Start 12/10/16 at 18: 30 Dextrose (D50w Syringe) 25 ml Q15M PRN IV DECREASED GLUCOSE Last administered on 12/13/16 13:10; Admin Dose 25 ML; Start 12/10/16 at 18:30 Dextrose (D50w Syringe) 50 ml Q15M PRN IV DECREASED GLUCOSE; Start 12/10/16 at 18:30 Glucagon (Glucagen) 1 mg Q15M PRN IM DECREASED GLUCOSE; Start 12/10/16 at 18:30 Glucose (Glutose) 15 gm Q15M PRN BUCCAL DECREASED GLUCOSE; Start 12/10/16 at 18 :30 Acetaminophen (Tylenol Liquid) 650 mg Q6H PRN NGT PAIN AND OR ELEVATED TEMP Last administered on 12/23/16 23:35; Admin Dose 650 MG; Start 12/10/16 at 21:00 Acetaminophen (Tylenol Tab) 650 mg Q4H PRN PO NON-CARDIAC PAIN LEVEL (1-3); Start 12/11/16 at 13:00 Morphine Sulfate (morphine) 2 mg Q2H PRN IV FOR NON CARDIAC PAIN (4-10) Last administered on 12/15/16 10:33; Admin Dose 2 MG; Start 12/11/16 at 13:00 Al Hydrox/Mg Hydrox/Simethicone (Mag-Al Plus) 30 ml Q4H PRN PO GASTROINTESTINAL UPSET; Start 12/11/16 at 13:00 Ondansetron HCl (Zofran Inj) 4 mg Q4H PRN IV NAUSEA AND/OR VOMITING; Start at 13:00 Senna/Docusate Sodium (Senokot-S) 2 tab HS NGT Last administered on 12/23/16 20:57; Admin Dose 2 TAB; Start 12/15/16 at 21:00 Lisinopril (Zestril) 2.5 mg DAILY PO Last administered on 12/23/16 09:38; Admin Dose 2.5 MG; Start 12/18/16 at 09:00 Heparin Sodium (Porcine) (Heparin (5000 Units/0.5 ml)) 5,000 unit BID SC Last administered on 12/24/16 09:06; Admin Dose 5,000 UNIT; Start 12/17/16 at 21:00 Famotidine 20 mg 20 mg HS PO Last administered on 12/23/16 20:56; Admin Dose 20 MG; Start 12/17/16 at 21:00 Caspofungin 50 mg/ Sodium Chloride 250 ml @ 250 mls/hr Q24H IVPB Last administered on 12/23/16 17:58; Admin Dose 250 MLS/HR; Start 12/19/16 at 18:00 Cefepime HCl (Maxipime 1gm/50 ml (Pmx)) 50 ml @ 100 mls/hr Q12 IVPB Last administered on 12/24/16 09:03; Admin Dose 100 MLS/HR; Start 12/19/16 at 21:00 Potassium Chloride (Potassium Chloride Pwd/Soln) 40 meq DAILY NGT Last administered on 12/24/16 09:03; Admin Dose 40 MEQ; Start 12/21/16 at 14:30 Insulin Glargine (Lantus) 30 unit DAILY@20 SC Last administered on 12/23/16 21 :52; Admin Dose 30 UNIT; Start 12/23/16 at 20:00 Guaifenesin (Robitussin Liquid Cup) 100 mg Q6H PRN PO COUGH Last administered on 12/23/16 23:35; Admin Dose 100 MG; Start 12/23/16 at 23:00 DANYELLE ROSSI NP Dec 24, 2016 12:13
[2016-12-24] MEDS: GUAIFENESIN 20 MG/ML 5ML CUP PO PRN (13:02)
--- NOTE | 2016-12-24 13:23 | RADRPT ---
PROCEDURE: Video-fluoroscopy swallowing study. CLINICAL INDICATION: Dysphagia. TECHNIQUE: Fluoroscopic guided video swallowing study was done in conjunction with the speech ther apist. The study was confined to the oral, pharyngeal, and cervical phases of the swallowing mechani sm. 2.0 minutes of fluoroscopy time was used. 16 series of images were obtained. COMPARISON: No prior study is available for comparison. FINDINGS: There is aspiration during swallowing. IMPRESSION: 1. Aspiration during swallowing. 2. Please refer to the speech therapist's recommendations for future feedings. RPTAT: QQ .Alonso Brooks MD, Date Time Electronically viewed and signed by .Alonso Brooks MD, on 12/24/2016 13:23 .R/
--- NOTE | 2016-12-24 13:45 | PN ---
Date/Time of Note Date/Time of Note DATE: 12/24/16 TIME: 13:44 Assessment/Plan Lines/Catheters IV Catheter Type (from Nrsg): Saline Lock Mccray in Place (from Nrsg): No Assessment/Plan Chief Complaint/Hosp Course CAD, status post non-ST elevation PR History of lice Cardiomyopathy with ejection fraction 25% Respiratory failure Patient is not a candidate to undergo coronary artery bypass grafting at this time Still on BIPAP FiO2 of 40% Would continue medical management Diuretics Plan for possible coronary artery bypass grafting when medically more stable Will discuss with the family Problems: Subjective 24 Hr Interval Summary Constitutional: improved Pain Control: mild Exam/Review of Systems Vital Signs Vitals Vital Signs Date Time Temp Pulse Resp B/P Pulse Ox O2 Delivery O2 Flow Rate FiO2 12/24/16 13:29 90 18 98 Nasal Cannula 2.0 12/24/16 11:30 98.6 112/60 12/20/16 07:06 45 Intake and Output 12/23/16 12/23/16 12/24/16 15:00 23:00 07:00 Intake Total 700 ml 940 ml Output Total 800 ml 900 ml Balance -100 ml 40 ml Exam ENMT: mucosa pink and moist, nl external ears & nose, nl lips & teeth, nl nasal mucosa & septum Neck: non-tender, supple Respiratory: clear to auscultation, normal air movement Cardiovascular: nl pulses, regular rate and rhythm Gastrointestinal: nl liver, spleen, non-tender, soft Results Result Diagram: 12/22/16 0959 12/24/16 0728 CHELA ALVARENGA MD Dec 24, 2016 13:44
--- NOTE | 2016-12-24 14:19 | CONS ---
Date/Time of Note Date/Time of Note DATE: 12/24/16 TIME: 14:15 Assessment/Plan Assessment/Plan Chief Complaint/Hosp Course IMP: 1.NSTEMI-peak trop>60 Now dowtrended significantly s/p LHC with patent RCA stents and high grade disease of LAD/LCX with small caliber vessels and recc for CABG 2.cardiomyopathy-LVEF 40-45 BY OSH echo. 25% by echo read here 3.Hypotension-improved off of pressors with some lability and holding of anti- hypertenives at times 4.resp failure s/p extubation requiring PRN BIPAP 5.anemia 6. AMS/encephalopathy 7. PNA 8. COPD 9. Hypothyroid Recc: -Tele -Follow BP closely and continue low dose BB/ACEI as tolerated only -Continue asa/brilinta -Continue statin -Follow volume status closely and continue lasix diuresis as tolerated -Smoking cessation -Follow BS closely -Continue abx's and f/u cx data -Contineu bronchodilators -CT surgical eval ongoing and have discussed with daughter who is agreeable Problems: Consultation Date/Type/Reason Admit Date/Time Dec 10, 2016 at 16:55 Initial Consult Date 12/12/16 Type of Consultation: cardiology Reason for Consultation Nstemi/cardiomyopathy Referring Provider: ROBEL PETTY MD Exam/Review of Systems Vital Signs Vitals Vital Signs Date Time Temp Pulse Resp B/P Pulse Ox O2 Delivery O2 Flow Rate FiO2 12/24/16 13:29 90 18 98 Nasal Cannula 2.0 12/24/16 11:30 98.6 112/60 12/20/16 07:06 45 Intake and Output 12/23/16 12/23/16 12/24/16 14:59 22:59 06:59 Intake Total 700 ml 940 ml Output Total 800 ml 900 ml Balance -100 ml 40 ml Exam Review of Systems: CONSTITUTIONAL: No fevers, chills. PULMONARY: No sob CARDIOVASCULAR: No chest pain/palpitations GASTROINTESTINAL: No nausea/vomiting. GENITOURINARY: No hematuria/dysuria. MUSCULOSKELETAL: No myagias/arthalgias. PSYCHIATRIC: The patient denies depression. NEUROLOGIC: No weakness Constitutional: alert, other (NGT in place) Psych: no complaints Head: normocephalic ENMT: mucosa pink and moist Neck: jvd (9 cm water), supple Respiratory: diminished breath sounds (at bases/B) Cardiovascular: regular rate and rhythm Gastrointestinal: non-tender, soft Musculoskeletal: muscle tone (weakness) Extremities: edema (none) 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: confused, lethargic Results Result Diagram: 12/22/16 0959 12/24/16 0728 Results 24 hrs Laboratory Tests Test 12/23/16 14:43 12/23/16 17:46 12/23/16 21:42 12/24/16 01:07 Bedside Glucose 259 H 198 276 H 287 H Test 12/24/16 05:09 12/24/16 07:28 12/24/16 07:57 12/24/16 13:02 Bedside Glucose 176 111 312 H Sodium Level 141 Potassium Level 3.8 Chloride Level 99 Carbon Dioxide Level 39 H Anion Gap 7 L Blood Urea Nitrogen 24 H Creatinine 0.53 Glucose Level 108 # Calcium Level 9.8 Medications Medications Current Medications Aspirin (Halfprin) 81 mg DAILY PO Last administered on 12/24/16 09:03; Admin Dose 81 MG; Start 12/11/16 at 09:00 Atorvastatin Calcium (Lipitor) 20 mg HS PO Last administered on 12/23/16 20:57 ; Admin Dose 20 MG; Start 12/10/16 at 21:00 Duloxetine HCl (Cymbalta) 20 mg DAILY PO Last administered on 12/24/16 09:03; Admin Dose 20 MG; Start 12/11/16 at 09:00 Gabapentin (Neurontin) 300 mg TID PO Last administered on 12/24/16 13:02; Admin Dose 300 MG; Start 12/10/16 at 21:00 Metoprolol Tartrate (Lopressor) 12.5 mg BID PO Last administered on 12/22/16 08:29; Admin Dose 12.5 MG; Start 12/10/16 at 21:00 Ticagrelor (Brilinta) 90 mg BID PO Last administered on 12/24/16 09:06; Admin Dose 90 MG; Start 12/10/16 at 21:00 Levothyroxine Sodium (Synthroid) 112 mcg DAILY@06 PO Last administered on 05:08; Admin Dose 112 MCG; Start 12/11/16 at 06:00 Insulin Aspart (Novolog Insulin Pen) NOVOLOG *MODERATE* ALGORI... Q4 SC Last administered on 12/24/16 13:08; Admin Dose 10 UNIT; Start 12/10/16 at 21:00 Miscellaneous Information 1 ea NOTE XX ; Start 12/10/16 at 18:30 Glucose (Glutose) 15 gm Q15M PRN PO DECREASED GLUCOSE; Start 12/10/16 at 18:30 Glucose (Glutose) 22.5 gm Q15M PRN PO DECREASED GLUCOSE; Start 12/10/16 at 18: 30 Dextrose (D50w Syringe) 25 ml Q15M PRN IV DECREASED GLUCOSE Last administered on 12/13/16 13:10; Admin Dose 25 ML; Start 12/10/16 at 18:30 Dextrose (D50w Syringe) 50 ml Q15M PRN IV DECREASED GLUCOSE; Start 12/10/16 at 18:30 Glucagon (Glucagen) 1 mg Q15M PRN IM DECREASED GLUCOSE; Start 12/10/16 at 18:30 Glucose (Glutose) 15 gm Q15M PRN BUCCAL DECREASED GLUCOSE; Start 12/10/16 at 18 :30 Acetaminophen (Tylenol Liquid) 650 mg Q6H PRN NGT PAIN AND OR ELEVATED TEMP Last administered on 12/23/16 23:35; Admin Dose 650 MG; Start 12/10/16 at 21:00 Acetaminophen (Tylenol Tab) 650 mg Q4H PRN PO NON-CARDIAC PAIN LEVEL (1-3); Start 12/11/16 at 13:00 Morphine Sulfate (morphine) 2 mg Q2H PRN IV FOR NON CARDIAC PAIN (4-10) Last administered on 12/15/16 10:33; Admin Dose 2 MG; Start 12/11/16 at 13:00 Al Hydrox/Mg Hydrox/Simethicone (Mag-Al Plus) 30 ml Q4H PRN PO GASTROINTESTINAL UPSET; Start 12/11/16 at 13:00 Ondansetron HCl (Zofran Inj) 4 mg Q4H PRN IV NAUSEA AND/OR VOMITING; Start at 13:00 Senna/Docusate Sodium (Senokot-S) 2 tab HS NGT Last administered on 12/23/16 20:57; Admin Dose 2 TAB; Start 12/15/16 at 21:00 Lisinopril (Zestril) 2.5 mg DAILY PO Last administered on 12/23/16 09:38; Admin Dose 2.5 MG; Start 12/18/16 at 09:00 Heparin Sodium (Porcine) (Heparin (5000 Units/0.5 ml)) 5,000 unit BID SC Last administered on 12/24/16 09:06; Admin Dose 5,000 UNIT; Start 12/17/16 at 21:00 Famotidine 20 mg 20 mg HS PO Last administered on 12/23/16 20:56; Admin Dose 20 MG; Start 12/17/16 at 21:00 Caspofungin 50 mg/ Sodium Chloride 250 ml @ 250 mls/hr Q24H IVPB Last administered on 12/23/16 17:58; Admin Dose 250 MLS/HR; Start 12/19/16 at 18:00 Cefepime HCl (Maxipime 1gm/50 ml (Pmx)) 50 ml @ 100 mls/hr Q12 IVPB Last administered on 12/24/16 09:03; Admin Dose 100 MLS/HR; Start 12/19/16 at 21:00 Potassium Chloride (Potassium Chloride Pwd/Soln) 40 meq DAILY NGT Last administered on 12/24/16 09:03; Admin Dose 40 MEQ; Start 12/21/16 at 14:30 Insulin Glargine (Lantus) 30 unit DAILY@20 SC Last administered on 12/23/16 21 :52; Admin Dose 30 UNIT; Start 12/23/16 at 20:00 Guaifenesin (Robitussin Liquid Cup) 100 mg Q6H PRN PO COUGH Last administered on 12/24/16 13:02; Admin Dose 100 MG; Start 12/23/16 at 23:00 RHONDA PENA Dec 24, 2016 14:19
--- NOTE | 2016-12-24 15:13 | CONS ---
Date/Time of Note Date/Time of Note DATE: 12/24/16 TIME: 15:12 Consult Date/Type/Reason Admit Date/Time Dec 10, 2016 at 16:55 Initial Consult Date 12/12/16 Type of Consultation: Pulmonary Ordering Provider: ROBEL PETTY MD Subjective Comfortable continues physical therapy Objective Vital Signs Date Time Temp Pulse Resp B/P Pulse Ox O2 Delivery O2 Flow Rate FiO2 12/24/16 13:29 90 18 98 Nasal Cannula 2.0 12/24/16 11:30 98.6 112/60 12/20/16 07:06 45 Intake and Output 12/23/16 12/23/16 12/24/16 14:59 22:59 06:59 Intake Total 700 ml 940 ml Output Total 800 ml 900 ml Balance -100 ml 40 ml Exam No new events. Nasogastric tube in place, discussed with speech therapy patient remains aspiration risk. Results/Medications Result Diagram: 12/22/16 0959 12/24/16 0728 Results 24 hrs Laboratory Tests Test 12/23/16 17:46 12/23/16 21:42 12/24/16 01:07 12/24/16 05:09 Bedside Glucose 198 276 H 287 H 176 Test 12/24/16 07:28 12/24/16 07:57 12/24/16 13:02 Sodium Level 141 Potassium Level 3.8 Chloride Level 99 Carbon Dioxide Level 39 H Anion Gap 7 L Blood Urea Nitrogen 24 H Creatinine 0.53 Glucose Level 108 # Calcium Level 9.8 Bedside Glucose 111 312 H Medications Current Medications Aspirin (Halfprin) 81 mg DAILY PO Last administered on 12/24/16 09:03; Admin Dose 81 MG; Start 12/11/16 at 09:00 Atorvastatin Calcium (Lipitor) 20 mg HS PO Last administered on 12/23/16 20:57 ; Admin Dose 20 MG; Start 12/10/16 at 21:00 Duloxetine HCl (Cymbalta) 20 mg DAILY PO Last administered on 12/24/16 09:03; Admin Dose 20 MG; Start 12/11/16 at 09:00 Gabapentin (Neurontin) 300 mg TID PO Last administered on 12/24/16 13:02; Admin Dose 300 MG; Start 12/10/16 at 21:00 Metoprolol Tartrate (Lopressor) 12.5 mg BID PO Last administered on 12/22/16 08:29; Admin Dose 12.5 MG; Start 12/10/16 at 21:00 Ticagrelor (Brilinta) 90 mg BID PO Last administered on 12/24/16 09:06; Admin Dose 90 MG; Start 12/10/16 at 21:00 Levothyroxine Sodium (Synthroid) 112 mcg DAILY@06 PO Last administered on 05:08; Admin Dose 112 MCG; Start 12/11/16 at 06:00 Insulin Aspart (Novolog Insulin Pen) NOVOLOG *MODERATE* ALGORI... Q4 SC Last administered on 12/24/16 13:08; Admin Dose 10 UNIT; Start 12/10/16 at 21:00 Miscellaneous Information 1 ea NOTE XX ; Start 12/10/16 at 18:30 Glucose (Glutose) 15 gm Q15M PRN PO DECREASED GLUCOSE; Start 12/10/16 at 18:30 Glucose (Glutose) 22.5 gm Q15M PRN PO DECREASED GLUCOSE; Start 12/10/16 at 18: 30 Dextrose (D50w Syringe) 25 ml Q15M PRN IV DECREASED GLUCOSE Last administered on 12/13/16 13:10; Admin Dose 25 ML; Start 12/10/16 at 18:30 Dextrose (D50w Syringe) 50 ml Q15M PRN IV DECREASED GLUCOSE; Start 12/10/16 at 18:30 Glucagon (Glucagen) 1 mg Q15M PRN IM DECREASED GLUCOSE; Start 12/10/16 at 18:30 Glucose (Glutose) 15 gm Q15M PRN BUCCAL DECREASED GLUCOSE; Start 12/10/16 at 18 :30 Acetaminophen (Tylenol Liquid) 650 mg Q6H PRN NGT PAIN AND OR ELEVATED TEMP Last administered on 12/23/16 23:35; Admin Dose 650 MG; Start 12/10/16 at 21:00 Acetaminophen (Tylenol Tab) 650 mg Q4H PRN PO NON-CARDIAC PAIN LEVEL (1-3); Start 12/11/16 at 13:00 Morphine Sulfate (morphine) 2 mg Q2H PRN IV FOR NON CARDIAC PAIN (4-10) Last administered on 12/15/16 10:33; Admin Dose 2 MG; Start 12/11/16 at 13:00 Al Hydrox/Mg Hydrox/Simethicone (Mag-Al Plus) 30 ml Q4H PRN PO GASTROINTESTINAL UPSET; Start 12/11/16 at 13:00 Ondansetron HCl (Zofran Inj) 4 mg Q4H PRN IV NAUSEA AND/OR VOMITING; Start at 13:00 Senna/Docusate Sodium (Senokot-S) 2 tab HS NGT Last administered on 12/23/16 20:57; Admin Dose 2 TAB; Start 12/15/16 at 21:00 Lisinopril (Zestril) 2.5 mg DAILY PO Last administered on 12/23/16 09:38; Admin Dose 2.5 MG; Start 12/18/16 at 09:00 Heparin Sodium (Porcine) (Heparin (5000 Units/0.5 ml)) 5,000 unit BID SC Last administered on 12/24/16 09:06; Admin Dose 5,000 UNIT; Start 12/17/16 at 21:00 Famotidine 20 mg 20 mg HS PO Last administered on 12/23/16 20:56; Admin Dose 20 MG; Start 12/17/16 at 21:00 Caspofungin 50 mg/ Sodium Chloride 250 ml @ 250 mls/hr Q24H IVPB Last administered on 12/23/16 17:58; Admin Dose 250 MLS/HR; Start 12/19/16 at 18:00 Cefepime HCl (Maxipime 1gm/50 ml (Pmx)) 50 ml @ 100 mls/hr Q12 IVPB Last administered on 12/24/16 09:03; Admin Dose 100 MLS/HR; Start 12/19/16 at 21:00 Potassium Chloride (Potassium Chloride Pwd/Soln) 40 meq DAILY NGT Last administered on 12/24/16 09:03; Admin Dose 40 MEQ; Start 12/21/16 at 14:30 Insulin Glargine (Lantus) 30 unit DAILY@20 SC Last administered on 12/23/16 21 :52; Admin Dose 30 UNIT; Start 12/23/16 at 20:00 Guaifenesin (Robitussin Liquid Cup) 100 mg Q6H PRN PO COUGH Last administered on 12/24/16 13:02; Admin Dose 100 MG; Start 12/23/16 at 23:00 Assessment/Plan Chief Complaint/Hosp Course IMP: 1. s/p NSTEMI 2. Resp Failure--due to pulm edema now extubated on nasal cannula oxygen 3. AMS-resolved likely toxic metabolic encephalopathy 4. RLL pneumonia 5. Anemia 6. Dysphagia RECS: 1. Replete K+ and increase free H2O 2. Continue o2 3. Continue cefepime 4. TF/ Free H2O 5. Speech therapy recommendations, nasogastric tube in place for the next few days with repeat swallow evaluation hopefully to advance diet. 6. Would defer cardiac surgery until more stable. Consider snf then readmission when more stable. Problems: STEFANI GONZALES MD, [facility] Dec 24, 2016 15:13
[2016-12-24] MEDS: CASPOFUNGIN 50 MG in SOD CHLORIDE 0.9% 250 ML IVPB SCH (17:49)
[2016-12-24] MEDS: ATORVASTATIN 20 MG TAB PO SCH (20:15)
[2016-12-24] MEDS: SENNA/DOCUSATE NA (8.6MG/50MG) TAB NGT SCH (20:16)
[2016-12-24] MEDS: FAMOTIDINE 20 MG TAB PO SCH (20:16)
[2016-12-24] MEDS: INSULIN GLARGINE [LANtus] 3 ML PEN SC SCH (20:24)
[2016-12-25] VITALS (12 sets, daily range): BP systolic 90–111; BP diastolic 35–72; PULSE 81–94; RESP 16–19
[2016-12-25] MEDS: INSULIN ASPART [NOVOLOG] 3 ML PEN SC SCH ×5 (01:07→22:07)
[2016-12-25] MEDS: ALBUTEROL/IPRATROPIUM (NEB) 3 ML AMP HHN SCH ×4 (02:42→20:02)
[2016-12-25] MEDS: FUROSEMIDE 20 MG INJ IV SCH (05:33)
[2016-12-25] MEDS: LEVOTHYROXINE 112 MCG TAB PO SCH (05:33)
[2016-12-25 08:05] LABS: ADD SCAN DIFF NO; BASOPHIL # 0.1 10^3/ul (0.0-0.1); BASOPHILS % 1.1 % (0.0-2.0); EOSINOPHILS # 0.8 10^3/ul (0.0-0.5); EOSINOPHILS % 6.6 % (0.0-7.0); HEMATOCRIT 36.2 % (37.0-47.0); HEMOGLOBIN 11.2 g/dl (12.0-16.0); LYMPHOCYTES # 1.6 10^3/ul (0.8-2.9); LYMPHOCYTES % 12.9 % (15.0-51.0); MEAN CORPUSCULAR HEMOGLOBIN 29.9 pg (29.0-33.0); MEAN CORPUSCULAR HGB CONC 30.9 g/dl (32.0-37.0); MEAN CORPUSCULAR VOLUME 96.5 fl (82.0-101.0); MEAN PLATELET VOLUME 10.8 fl (7.4-10.4); MONOCYTE # 0.7 10^3/ul (0.3-0.9); NEUTROPHIL # 8.5 10^3/ul (1.6-7.5); NEUTROPHILS % 70.4 % (39.0-77.0); RED BLOOD COUNT 3.75 10^6/ul (4.20-5.40); RED CELL DISTRIBUTION WIDTH 13.2 % (11.5-14.5); WHITE BLOOD COUNT 12.1 10^3/ul (4.8-10.8)
[2016-12-25] MEDS: ASPIRIN (EC) 81 MG TAB PO SCH (08:11)
[2016-12-25] MEDS: GABAPENTIN 300 MG CAP PO SCH ×3 (08:11→21:27)
[2016-12-25] MEDS: DULOXETINE 20 MG CAP DR PO SCH (08:11)
[2016-12-25 08:13] LABS: PLATELET COUNT 527 10^3/UL (140-415)
[2016-12-25] MEDS: TICAGRELOR 90 MG TABLET PO SCH ×2 (08:23→21:31)
[2016-12-25] MEDS: POTASSIUM CHLORIDE 20 MEQ POWDER FOR ORAL SOLN NGT SCH (08:25)
[2016-12-25] MEDS: CEFEPIME 1GM/50 ML (PMX) 50 ML IVPB SCH ×2 (08:25→21:18)
[2016-12-25] MEDS: HEPARIN 5,000 UNIT/0.5 ML VIAL SC SCH ×2 (08:37→21:32)
[2016-12-25] MEDS: LISINOPRIL 5 MG TAB PO SCH (09:00)
[2016-12-25] MEDS: METOPROLOL 25 MG TAB PO SCH ×2 (09:00→21:28)
--- NOTE | 2016-12-25 11:24 | PN ---
Date/Time of Note Date/Time of Note DATE: 12/25/16 TIME: 11:23 Assessment/Plan Lines/Catheters IV Catheter Type (from Nrsg): Saline Lock Mccray in Place (from Nrsg): No Assessment/Plan Chief Complaint/Hosp Course CAD, status post non-ST elevation [place] History of lice Cardiomyopathy with ejection fraction 25% Respiratory failure Patient is not a candidate to undergo coronary artery bypass grafting at this time Still on BIPAP FiO2 of 40% Would continue medical management Diuretics Plan for possible coronary artery bypass grafting when medically more stable Will discuss with the family Problems: Subjective 24 Hr Interval Summary Constitutional: improved Pain Control: mild Exam/Review of Systems Vital Signs Vitals Vital Signs Date Time Temp Pulse Resp B/P Pulse Ox O2 Delivery O2 Flow Rate FiO2 12/25/16 08:44 82 16 98 Nasal Cannula 3.0 12/25/16 07:08 98.9 90/40 Intake and Output 12/24/16 12/24/16 12/25/16 15:00 23:00 07:00 Intake Total 1290 ml 1050 ml Output Total 450 ml 800 ml Balance 840 ml 250 ml Exam ENMT: mucosa pink and moist, nl external ears & nose, nl lips & teeth, nl nasal mucosa & septum Neck: non-tender, supple Respiratory: clear to auscultation, normal air movement Cardiovascular: nl pulses, regular rate and rhythm Results Result Diagram: 12/25/16 0704 12/24/16 0728 CHELA ALVARENGA MD Dec 25, 2016 11:23
--- NOTE | 2016-12-25 11:41 | PN ---
Date/Time of Note Date/Time of Note DATE: 12/25/16 TIME: 11:39 Assessment/Plan VTE Prophylaxis VTE Prophylaxis Intervention: SCD's Lines/Catheters IV Catheter Type (from Nrs): Saline Lock Urinary Cath still in place: No Assessment/Plan Assessment/Plan 56 yo F with PMHx DM2 nonadherent to insulin, HTN, presented with DKA and NSTEMI. Pt is sp LHC with PCI but per cardiology also needs CABG. #NSTEMI sp PCI with CAD warranting CABG -cont DAPT, BP meds, statin -CT surgery following for CABG eval #ICM: EF 25% -cont med management #DM2: a1c 9s. Continue lantus and aspart uptitrate lantus, change SSI of note, once NGT removed and pt resumes eating normal meals will likely go back to home insulin regimen #aspiration pna, ?fungal cystitis: antimicrobials as per ID #hypothyroid: cont home meds PT/OT/ARU evals for discharge planning placed 7.11 Will need to talk to CT surg and cards once NG is out if they'd advise ROYCE prior to CABG or CABG then ROYCE Subjective 24 Hr Interval Summary Free Text/Dictation Feels ok. Had some questions about what CABG entails Exam/Review of Systems Vital Signs Vitals Vital Signs Date Time Temp Pulse Resp B/P Pulse Ox O2 Delivery O2 Flow Rate FiO2 12/25/16 11:30 98.5 90 19 93/35 99 12/25/16 08:44 Nasal Cannula 3.0 Intake and Output 12/24/16 12/24/16 12/25/16 15:00 23:00 07:00 Intake Total 1290 ml 1050 ml Output Total 450 ml 800 ml Balance 840 ml 250 ml Exam nad NG in place no mrg lungs clear abd soft no rashes Results Result Diagram: 12/25/16 0704 12/24/16 0728 Results 24 hrs Laboratory Tests Test 12/24/16 13:02 12/24/16 17:48 12/24/16 20:00 12/25/16 01:02 Bedside Glucose 312 H 161 138 260 H Test 12/25/16 05:10 12/25/16 05:14 12/25/16 07:04 12/25/16 08:12 Bedside Glucose 331 H 336 H 204 White Blood Count 12.1 H Red Blood Count 3.75 L Hemoglobin 11.2 L Hematocrit 36.2 L Mean Corpuscular Volume 96.5 Mean Corpuscular Hemoglobin 29.9 Mean Corpuscular Hemoglobin Concent 30.9 L Red Cell Distribution Width 13.2 Platelet Count 527 #H Mean Platelet Volume 10.8 H Neutrophils % 70.4 Lymphocytes % 12.9 L Monocytes % 6.0 Eosinophils % 6.6 Basophils % 1.1 Nucleated Red Blood Cells % 0.0 Neutrophils # 8.5 H Lymphocytes # 1.6 Monocytes # 0.7 Eosinophils # 0.8 H Basophils # 0.1 Nucleated Red Blood Cells # 0.0 Medications Medications Current Medications Aspirin (Halfprin) 81 mg DAILY PO Last administered on 12/25/16 08:11; Admin Dose 81 MG; Start 12/11/16 at 09:00 Atorvastatin Calcium (Lipitor) 20 mg HS PO Last administered on 12/24/16 20:15 ; Admin Dose 20 MG; Start 12/10/16 at 21:00 Duloxetine HCl (Cymbalta) 20 mg DAILY PO Last administered on 12/25/16 08:11; Admin Dose 20 MG; Start 12/11/16 at 09:00 Gabapentin (Neurontin) 300 mg TID PO Last administered on 12/25/16 08:11; Admin Dose 300 MG; Start 12/10/16 at 21:00 Metoprolol Tartrate (Lopressor) 12.5 mg BID PO Last administered on 12/24/16 21:10; Admin Dose 12.5 MG; Start 12/10/16 at 21:00 Ticagrelor (Brilinta) 90 mg BID PO Last administered on 12/25/16 08:23; Admin Dose 90 MG; Start 12/10/16 at 21:00 Levothyroxine Sodium (Synthroid) 112 mcg DAILY@06 PO Last administered on 05:33; Admin Dose 112 MCG; Start 12/11/16 at 06:00 Miscellaneous Information 1 ea NOTE XX ; Start 12/10/16 at 18:30 Glucose (Glutose) 15 gm Q15M PRN PO DECREASED GLUCOSE; Start 12/10/16 at 18:30 Glucose (Glutose) 22.5 gm Q15M PRN PO DECREASED GLUCOSE; Start 12/10/16 at 18: 30 Dextrose (D50w Syringe) 25 ml Q15M PRN IV DECREASED GLUCOSE Last administered on 12/13/16 13:10; Admin Dose 25 ML; Start 12/10/16 at 18:30 Dextrose (D50w Syringe) 50 ml Q15M PRN IV DECREASED GLUCOSE; Start 12/10/16 at 18:30 Glucagon (Glucagen) 1 mg Q15M PRN IM DECREASED GLUCOSE; Start 12/10/16 at 18:30 Glucose (Glutose) 15 gm Q15M PRN BUCCAL DECREASED GLUCOSE; Start 12/10/16 at 18 :30 Acetaminophen (Tylenol Liquid) 650 mg Q6H PRN NGT PAIN AND OR ELEVATED TEMP Last administered on 12/23/16 23:35; Admin Dose 650 MG; Start 12/10/16 at 21:00 Acetaminophen (Tylenol Tab) 650 mg Q4H PRN PO NON-CARDIAC PAIN LEVEL (1-3); Start 12/11/16 at 13:00 Morphine Sulfate (morphine) 2 mg Q2H PRN IV FOR NON CARDIAC PAIN (4-10) Last administered on 12/15/16 10:33; Admin Dose 2 MG; Start 12/11/16 at 13:00 Al Hydrox/Mg Hydrox/Simethicone (Mag-Al Plus) 30 ml Q4H PRN PO GASTROINTESTINAL UPSET; Start 12/11/16 at 13:00 Ondansetron HCl (Zofran Inj) 4 mg Q4H PRN IV NAUSEA AND/OR VOMITING; Start at 13:00 Senna/Docusate Sodium (Senokot-S) 2 tab HS NGT Last administered on 12/24/16 20:16; Admin Dose 2 TAB; Start 12/15/16 at 21:00 Lisinopril (Zestril) 2.5 mg DAILY PO Last administered on 12/23/16 09:38; Admin Dose 2.5 MG; Start 12/18/16 at 09:00 Heparin Sodium (Porcine) (Heparin (5000 Units/0.5 ml)) 5,000 unit BID SC Last administered on 12/25/16 08:37; Admin Dose 5,000 UNIT; Start 12/17/16 at 21:00 Famotidine 20 mg 20 mg HS PO Last administered on 12/24/16 20:16; Admin Dose 20 MG; Start 12/17/16 at 21:00 Caspofungin 50 mg/ Sodium Chloride 250 ml @ 250 mls/hr Q24H IVPB Last administered on 12/24/16 17:49; Admin Dose 250 MLS/HR; Start 12/19/16 at 18:00 Cefepime HCl (Maxipime 1gm/50 ml (Pmx)) 50 ml @ 100 mls/hr Q12 IVPB Last administered on 12/25/16 08:25; Admin Dose 100 MLS/HR; Start 12/19/16 at 21:00 Potassium Chloride (Potassium Chloride Pwd/Soln) 40 meq DAILY NGT Last administered on 12/25/16 08:25; Admin Dose 40 MEQ; Start 12/21/16 at 14:30 Guaifenesin (Robitussin Liquid Cup) 100 mg Q6H PRN PO COUGH Last administered on 12/24/16 13:02; Admin Dose 100 MG; Start 12/23/16 at 23:00 Furosemide (Lasix) 40 mg BID PO ; Start 12/25/16 at 21:00 Insulin Glargine (Lantus) 40 unit DAILY@20 SC ; Start 12/25/16 at 20:00; Status ROBEL NAVAS MD Dec 25, 2016 11:41
[2016-12-25] MEDS ORDERED: INSULIN ASPART [NOVOLOG] 3 ML PEN SC SCH (11:50)
--- NOTE | 2016-12-25 11:51 | CONS ---
Date/Time of Note Date/Time of Note DATE: 12/25/16 TIME: 11:49 Consult Date/Type/Reason Admit Date/Time Dec 10, 2016 at 16:55 Initial Consult Date 12/12/16 Type of Consultation: Pulmonary Ordering Provider: ROBEL PETTY MD Subjective Patient comfortable at rest no acute events Objective Vital Signs Date Time Temp Pulse Resp B/P Pulse Ox O2 Delivery O2 Flow Rate FiO2 12/25/16 11:30 98.5 90 19 93/35 99 12/25/16 08:44 Nasal Cannula 3.0 Intake and Output 12/24/16 12/24/16 12/25/16 15:00 23:00 07:00 Intake Total 1290 ml 1050 ml Output Total 450 ml 800 ml Balance 840 ml 250 ml Exam GENERAL: Chronically ill-appearing lady comfortable at rest nasogastric tube in place VITAL SIGNS: per chart NECK: Supple. No JVD or lymphadenopathy. CARDIAC EXAM: S1, S2. No added sounds or murmurs. CHEST: clear bilaterally, No added sounds, rales or wheezes ABDOMEN: Soft, nontender. No guarding or rebound. EXTREMITIES: No cyanosis, clubbing or edema. NEUROLOGIC: Generalized weakness. No focal deficits. Results/Medications Result Diagram: 12/25/16 0704 12/24/16 0728 Results 24 hrs Laboratory Tests Test 12/24/16 13:02 12/24/16 17:48 12/24/16 20:00 12/25/16 01:02 Bedside Glucose 312 H 161 138 260 H Test 12/25/16 05:10 12/25/16 05:14 12/25/16 07:04 12/25/16 08:12 Bedside Glucose 331 H 336 H 204 White Blood Count 12.1 H Red Blood Count 3.75 L Hemoglobin 11.2 L Hematocrit 36.2 L Mean Corpuscular Volume 96.5 Mean Corpuscular Hemoglobin 29.9 Mean Corpuscular Hemoglobin Concent 30.9 L Red Cell Distribution Width 13.2 Platelet Count 527 #H Mean Platelet Volume 10.8 H Neutrophils % 70.4 Lymphocytes % 12.9 L Monocytes % 6.0 Eosinophils % 6.6 Basophils % 1.1 Nucleated Red Blood Cells % 0.0 Neutrophils # 8.5 H Lymphocytes # 1.6 Monocytes # 0.7 Eosinophils # 0.8 H Basophils # 0.1 Nucleated Red Blood Cells # 0.0 Medications Current Medications Aspirin (Halfprin) 81 mg DAILY PO Last administered on 12/25/16 08:11; Admin Dose 81 MG; Start 12/11/16 at 09:00 Atorvastatin Calcium (Lipitor) 20 mg HS PO Last administered on 12/24/16 20:15 ; Admin Dose 20 MG; Start 12/10/16 at 21:00 Duloxetine HCl (Cymbalta) 20 mg DAILY PO Last administered on 12/25/16 08:11; Admin Dose 20 MG; Start 12/11/16 at 09:00 Gabapentin (Neurontin) 300 mg TID PO Last administered on 12/25/16 08:11; Admin Dose 300 MG; Start 12/10/16 at 21:00 Metoprolol Tartrate (Lopressor) 12.5 mg BID PO Last administered on 12/24/16 21:10; Admin Dose 12.5 MG; Start 12/10/16 at 21:00 Ticagrelor (Brilinta) 90 mg BID PO Last administered on 12/25/16 08:23; Admin Dose 90 MG; Start 12/10/16 at 21:00 Levothyroxine Sodium (Synthroid) 112 mcg DAILY@06 PO Last administered on 05:33; Admin Dose 112 MCG; Start 12/11/16 at 06:00 Miscellaneous Information 1 ea NOTE XX ; Start 12/10/16 at 18:30 Glucose (Glutose) 15 gm Q15M PRN PO DECREASED GLUCOSE; Start 12/10/16 at 18:30 Glucose (Glutose) 22.5 gm Q15M PRN PO DECREASED GLUCOSE; Start 12/10/16 at 18: 30 Dextrose (D50w Syringe) 25 ml Q15M PRN IV DECREASED GLUCOSE Last administered on 12/13/16 13:10; Admin Dose 25 ML; Start 12/10/16 at 18:30 Dextrose (D50w Syringe) 50 ml Q15M PRN IV DECREASED GLUCOSE; Start 12/10/16 at 18:30 Glucagon (Glucagen) 1 mg Q15M PRN IM DECREASED GLUCOSE; Start 12/10/16 at 18:30 Glucose (Glutose) 15 gm Q15M PRN BUCCAL DECREASED GLUCOSE; Start 12/10/16 at 18 :30 Acetaminophen (Tylenol Liquid) 650 mg Q6H PRN NGT PAIN AND OR ELEVATED TEMP Last administered on 12/23/16 23:35; Admin Dose 650 MG; Start 12/10/16 at 21:00 Acetaminophen (Tylenol Tab) 650 mg Q4H PRN PO NON-CARDIAC PAIN LEVEL (1-3); Start 12/11/16 at 13:00 Morphine Sulfate (morphine) 2 mg Q2H PRN IV FOR NON CARDIAC PAIN (4-10) Last administered on 12/15/16 10:33; Admin Dose 2 MG; Start 12/11/16 at 13:00 Al Hydrox/Mg Hydrox/Simethicone (Mag-Al Plus) 30 ml Q4H PRN PO GASTROINTESTINAL UPSET; Start 12/11/16 at 13:00 Ondansetron HCl (Zofran Inj) 4 mg Q4H PRN IV NAUSEA AND/OR VOMITING; Start at 13:00 Senna/Docusate Sodium (Senokot-S) 2 tab HS NGT Last administered on 12/24/16 20:16; Admin Dose 2 TAB; Start 12/15/16 at 21:00 Lisinopril (Zestril) 2.5 mg DAILY PO Last administered on 12/23/16 09:38; Admin Dose 2.5 MG; Start 12/18/16 at 09:00 Heparin Sodium (Porcine) (Heparin (5000 Units/0.5 ml)) 5,000 unit BID SC Last administered on 12/25/16 08:37; Admin Dose 5,000 UNIT; Start 12/17/16 at 21:00 Famotidine 20 mg 20 mg HS PO Last administered on 12/24/16 20:16; Admin Dose 20 MG; Start 12/17/16 at 21:00 Caspofungin 50 mg/ Sodium Chloride 250 ml @ 250 mls/hr Q24H IVPB Last administered on 12/24/16 17:49; Admin Dose 250 MLS/HR; Start 12/19/16 at 18:00 Cefepime HCl (Maxipime 1gm/50 ml (Pmx)) 50 ml @ 100 mls/hr Q12 IVPB Last administered on 12/25/16 08:25; Admin Dose 100 MLS/HR; Start 12/19/16 at 21:00 Potassium Chloride (Potassium Chloride Pwd/Soln) 40 meq DAILY NGT Last administered on 12/25/16 08:25; Admin Dose 40 MEQ; Start 12/21/16 at 14:30 Guaifenesin (Robitussin Liquid Cup) 100 mg Q6H PRN PO COUGH Last administered on 12/24/16 13:02; Admin Dose 100 MG; Start 12/23/16 at 23:00 Furosemide (Lasix) 40 mg BID PO ; Start 12/25/16 at 21:00 Insulin Glargine (Lantus) 40 unit DAILY@20 SC ; Start 12/25/16 at 20:00 Assessment/Plan Chief Complaint/Hosp Course IMP: 1. s/p NSTEMI 2. Resp Failure--due to pulm edema now extubated on nasal cannula oxygen 3. AMS-resolved likely toxic metabolic encephalopathy 4. RLL pneumonia 5. Anemia 6. Dysphagia RECS: 1. Replete K+ and increase free H2O 2. Continue o2 3. Continue cefepime 4. TF/ Free H2O 5. Speech therapy recommendations, nasogastric tube in place for the next few days with repeat swallow evaluation hopefully to advance diet. 6. Would defer cardiac surgery until more stable. Consider snf then readmission when more stable. Likely needs preop PFTs Problems: STEFANI GONZALES MD, [facility] Dec 25, 2016 11:50
--- NOTE | 2016-12-25 12:54 | CONS ---
Date/Time of Note Date/Time of Note DATE: 12/25/16 TIME: 12:53 Assessment/Plan Assessment/Plan Chief Complaint/Hosp Course Awake, looks comfortable, tolerates tube feeding. Family at bedside Microbiology: Sputum culture on December 19 grew Klebsiella pneumonia and staph aureus Indwelling's NG tube, Mccray catheter, right upper extremity PICC line Antibiotics: Cefepime Cancidas Physical examination: Well-developed, older looking 56-year-old woman who is awake in no distress. Head atraumatic normocephalic sclera nonicteric. Bugle mucosa pink dry neck is supple chest rise symmetrical breath sounds clear, diminished basis. Heart S1-S2. Abdomen soft bowel tones present. Extremities without cyanosis. Assessment: 1. Resolving leukocytosis likely secondary to pneumonia 2. Fungal UTI 3. Non-ST elevation PA/cardiomyopathy with ejection fraction 25% 4. Status post respiratory failure 5. Dysphasia==> possible ongoing aspiration, patient getting tube feedings through NG tube 6. Head lies status post treatment Plan: Remain stable, WBC tracing down, continue antibiotics, continue anti- aspiration measures. Possible CABG once medically stable [facility] staff Problems: Consultation Date/Type/Reason Admit Date/Time Dec 10, 2016 at 16:55 Initial Consult Date 12/12/16 Type of Consultation: ID Referring Provider: ROBEL PETTY MD Exam/Review of Systems Vital Signs Vitals Vital Signs Date Time Temp Pulse Resp B/P Pulse Ox O2 Delivery O2 Flow Rate FiO2 12/25/16 12:34 87 12/25/16 11:30 98.5 19 93/35 99 12/25/16 08:44 Nasal Cannula 3.0 Intake and Output 12/24/16 12/24/16 12/25/16 15:00 23:00 07:00 Intake Total 1290 ml 1050 ml Output Total 450 ml 800 ml Balance 840 ml 250 ml Results Result Diagram: 12/25/16 0704 12/24/16 0728 Results 24 hrs Laboratory Tests Test 12/24/16 13:02 12/24/16 17:48 12/24/16 20:00 12/25/16 01:02 Bedside Glucose 312 H 161 138 260 H Test 12/25/16 05:10 12/25/16 05:14 12/25/16 07:04 12/25/16 08:12 Bedside Glucose 331 H 336 H 204 White Blood Count 12.1 H Red Blood Count 3.75 L Hemoglobin 11.2 L Hematocrit 36.2 L Mean Corpuscular Volume 96.5 Mean Corpuscular Hemoglobin 29.9 Mean Corpuscular Hemoglobin Concent 30.9 L Red Cell Distribution Width 13.2 Platelet Count 527 #H Mean Platelet Volume 10.8 H Neutrophils % 70.4 Lymphocytes % 12.9 L Monocytes % 6.0 Eosinophils % 6.6 Basophils % 1.1 Nucleated Red Blood Cells % 0.0 Neutrophils # 8.5 H Lymphocytes # 1.6 Monocytes # 0.7 Eosinophils # 0.8 H Basophils # 0.1 Nucleated Red Blood Cells # 0.0 Test 12/25/16 12:09 Bedside Glucose 218 Medications Medications Current Medications Aspirin (Halfprin) 81 mg DAILY PO Last administered on 12/25/16 08:11; Admin Dose 81 MG; Start 12/11/16 at 09:00 Atorvastatin Calcium (Lipitor) 20 mg HS PO Last administered on 12/24/16 20:15 ; Admin Dose 20 MG; Start 12/10/16 at 21:00 Duloxetine HCl (Cymbalta) 20 mg DAILY PO Last administered on 12/25/16 08:11; Admin Dose 20 MG; Start 12/11/16 at 09:00 Gabapentin (Neurontin) 300 mg TID PO Last administered on 12/25/16 12:10; Admin Dose 300 MG; Start 12/10/16 at 21:00 Metoprolol Tartrate (Lopressor) 12.5 mg BID PO Last administered on 12/24/16 21:10; Admin Dose 12.5 MG; Start 12/10/16 at 21:00 Ticagrelor (Brilinta) 90 mg BID PO Last administered on 12/25/16 08:23; Admin Dose 90 MG; Start 12/10/16 at 21:00 Levothyroxine Sodium (Synthroid) 112 mcg DAILY@06 PO Last administered on 05:33; Admin Dose 112 MCG; Start 12/11/16 at 06:00 Miscellaneous Information 1 ea NOTE XX ; Start 12/10/16 at 18:30 Glucose (Glutose) 15 gm Q15M PRN PO DECREASED GLUCOSE; Start 12/10/16 at 18:30 Glucose (Glutose) 22.5 gm Q15M PRN PO DECREASED GLUCOSE; Start 12/10/16 at 18: 30 Dextrose (D50w Syringe) 25 ml Q15M PRN IV DECREASED GLUCOSE Last administered on 12/13/16 13:10; Admin Dose 25 ML; Start 12/10/16 at 18:30 Dextrose (D50w Syringe) 50 ml Q15M PRN IV DECREASED GLUCOSE; Start 12/10/16 at 18:30 Glucagon (Glucagen) 1 mg Q15M PRN IM DECREASED GLUCOSE; Start 12/10/16 at 18:30 Glucose (Glutose) 15 gm Q15M PRN BUCCAL DECREASED GLUCOSE; Start 12/10/16 at 18 :30 Acetaminophen (Tylenol Liquid) 650 mg Q6H PRN NGT PAIN AND OR ELEVATED TEMP Last administered on 12/23/16 23:35; Admin Dose 650 MG; Start 12/10/16 at 21:00 Acetaminophen (Tylenol Tab) 650 mg Q4H PRN PO NON-CARDIAC PAIN LEVEL (1-3); Start 12/11/16 at 13:00 Morphine Sulfate (morphine) 2 mg Q2H PRN IV FOR NON CARDIAC PAIN (4-10) Last administered on 12/15/16 10:33; Admin Dose 2 MG; Start 12/11/16 at 13:00 Al Hydrox/Mg Hydrox/Simethicone (Mag-Al Plus) 30 ml Q4H PRN PO GASTROINTESTINAL UPSET; Start 12/11/16 at 13:00 Ondansetron HCl (Zofran Inj) 4 mg Q4H PRN IV NAUSEA AND/OR VOMITING; Start at 13:00 Senna/Docusate Sodium (Senokot-S) 2 tab HS NGT Last administered on 12/24/16 20:16; Admin Dose 2 TAB; Start 12/15/16 at 21:00 Lisinopril (Zestril) 2.5 mg DAILY PO Last administered on 12/23/16 09:38; Admin Dose 2.5 MG; Start 12/18/16 at 09:00 Heparin Sodium (Porcine) (Heparin (5000 Units/0.5 ml)) 5,000 unit BID SC Last administered on 12/25/16 08:37; Admin Dose 5,000 UNIT; Start 12/17/16 at 21:00 Famotidine 20 mg 20 mg HS PO Last administered on 12/24/16 20:16; Admin Dose 20 MG; Start 12/17/16 at 21:00 Caspofungin 50 mg/ Sodium Chloride 250 ml @ 250 mls/hr Q24H IVPB Last administered on 12/24/16 17:49; Admin Dose 250 MLS/HR; Start 12/19/16 at 18:00 Cefepime HCl (Maxipime 1gm/50 ml (Pmx)) 50 ml @ 100 mls/hr Q12 IVPB Last administered on 12/25/16 08:25; Admin Dose 100 MLS/HR; Start 12/19/16 at 21:00 Potassium Chloride (Potassium Chloride Pwd/Soln) 40 meq DAILY NGT Last administered on 12/25/16 08:25; Admin Dose 40 MEQ; Start 12/21/16 at 14:30 Guaifenesin (Robitussin Liquid Cup) 100 mg Q6H PRN PO COUGH Last administered on 12/24/16 13:02; Admin Dose 100 MG; Start 12/23/16 at 23:00 Furosemide (Lasix) 40 mg BID PO ; Start 12/25/16 at 21:00 Insulin Glargine (Lantus) 40 unit DAILY@20 SC ; Start 12/25/16 at 20:00 DANYELLE ROSSI NP Dec 25, 2016 12:54
--- NOTE | 2016-12-25 13:23 | CONS ---
Date/Time of Note Date/Time of Note DATE: 12/25/16 TIME: 13:18 Assessment/Plan Assessment/Plan Chief Complaint/Hosp Course IMP: 1.NSTEMI-peak trop>60 Now dowtrended significantly s/p LHC with patent RCA stents and high grade disease of LAD/LCX with small caliber vessels and recc for CABG 2.cardiomyopathy-LVEF 40-45 BY OSH echo. 25% by echo read here 3.Hypotension-improved off of pressors with some lability and holding of anti- hypertenives at times 4.resp failure s/p extubation requiring PRN BIPAP which has decreased in need/ frequency 5.anemia 6. AMS/encephalopathy 7. PNA 8. COPD 9. Hypothyroid Recc: -Tele -Follow BP closely and continue low dose BB/ACEI as tolerated only -Continue asa/brilinta -Continue statin -Follow volume status closely and continue lasix diuresis as tolerated now PO -Smoking cessation -Follow BS closely -Continue abx's and f/u cx data -Continue bronchodilators -CT surgical eval ongoing and have discussed with daughter who is agreeable and CT surgery following Problems: Consultation Date/Type/Reason Admit Date/Time Dec 10, 2016 at 16:55 Initial Consult Date 12/12/16 Type of Consultation: cardiology Reason for Consultation Nstemi Referring Provider: ROBEL PETTY MD Exam/Review of Systems Vital Signs Vitals Vital Signs Date Time Temp Pulse Resp B/P Pulse Ox O2 Delivery O2 Flow Rate FiO2 12/25/16 12:34 87 12/25/16 11:30 98.5 19 93/35 99 12/25/16 08:44 Nasal Cannula 3.0 Intake and Output 12/24/16 12/24/16 12/25/16 15:00 23:00 07:00 Intake Total 1290 ml 1050 ml Output Total 450 ml 800 ml Balance 840 ml 250 ml Exam Review of Systems: CONSTITUTIONAL: No fevers, chills. PULMONARY: ongoing sob/cough CARDIOVASCULAR: No chest pain/palpitations GASTROINTESTINAL: No nausea/vomiting. GENITOURINARY: No hematuria/dysuria. MUSCULOSKELETAL: No obvious myagias/arthalgias. PSYCHIATRIC: No current depression. NEUROLOGIC: lethargic Constitutional: alert Psych: no complaints Head: normocephalic ENMT: mucosa pink and moist Neck: jvd (9 cm water), supple Respiratory: other (upper airway rhochi) Cardiovascular: regular rate and rhythm Gastrointestinal: non-tender, soft Musculoskeletal: muscle tone (normal) Extremities: edema (none) 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: other (No focal deficits) Results Result Diagram: 12/25/16 0704 12/24/16 0728 Results 24 hrs Laboratory Tests Test 12/24/16 17:48 12/24/16 20:00 12/25/16 01:02 12/25/16 05:10 Bedside Glucose 161 138 260 H 331 H Test 12/25/16 05:14 12/25/16 07:04 12/25/16 08:12 12/25/16 12:09 Bedside Glucose 336 H 204 218 White Blood Count 12.1 H Red Blood Count 3.75 L Hemoglobin 11.2 L Hematocrit 36.2 L Mean Corpuscular Volume 96.5 Mean Corpuscular Hemoglobin 29.9 Mean Corpuscular Hemoglobin Concent 30.9 L Red Cell Distribution Width 13.2 Platelet Count 527 #H Mean Platelet Volume 10.8 H Neutrophils % 70.4 Lymphocytes % 12.9 L Monocytes % 6.0 Eosinophils % 6.6 Basophils % 1.1 Nucleated Red Blood Cells % 0.0 Neutrophils # 8.5 H Lymphocytes # 1.6 Monocytes # 0.7 Eosinophils # 0.8 H Basophils # 0.1 Nucleated Red Blood Cells # 0.0 Medications Medications Current Medications Aspirin (Halfprin) 81 mg DAILY PO Last administered on 12/25/16 08:11; Admin Dose 81 MG; Start 12/11/16 at 09:00 Atorvastatin Calcium (Lipitor) 20 mg HS PO Last administered on 12/24/16 20:15 ; Admin Dose 20 MG; Start 12/10/16 at 21:00 Duloxetine HCl (Cymbalta) 20 mg DAILY PO Last administered on 12/25/16 08:11; Admin Dose 20 MG; Start 12/11/16 at 09:00 Gabapentin (Neurontin) 300 mg TID PO Last administered on 12/25/16 12:10; Admin Dose 300 MG; Start 12/10/16 at 21:00 Metoprolol Tartrate (Lopressor) 12.5 mg BID PO Last administered on 12/24/16 21:10; Admin Dose 12.5 MG; Start 12/10/16 at 21:00 Ticagrelor (Brilinta) 90 mg BID PO Last administered on 12/25/16 08:23; Admin Dose 90 MG; Start 12/10/16 at 21:00 Levothyroxine Sodium (Synthroid) 112 mcg DAILY@06 PO Last administered on 05:33; Admin Dose 112 MCG; Start 12/11/16 at 06:00 Miscellaneous Information 1 ea NOTE XX ; Start 12/10/16 at 18:30 Glucose (Glutose) 15 gm Q15M PRN PO DECREASED GLUCOSE; Start 12/10/16 at 18:30 Glucose (Glutose) 22.5 gm Q15M PRN PO DECREASED GLUCOSE; Start 12/10/16 at 18: 30 Dextrose (D50w Syringe) 25 ml Q15M PRN IV DECREASED GLUCOSE Last administered on 12/13/16 13:10; Admin Dose 25 ML; Start 12/10/16 at 18:30 Dextrose (D50w Syringe) 50 ml Q15M PRN IV DECREASED GLUCOSE; Start 12/10/16 at 18:30 Glucagon (Glucagen) 1 mg Q15M PRN IM DECREASED GLUCOSE; Start 12/10/16 at 18:30 Glucose (Glutose) 15 gm Q15M PRN BUCCAL DECREASED GLUCOSE; Start 12/10/16 at 18 :30 Acetaminophen (Tylenol Liquid) 650 mg Q6H PRN NGT PAIN AND OR ELEVATED TEMP Last administered on 12/23/16 23:35; Admin Dose 650 MG; Start 12/10/16 at 21:00 Acetaminophen (Tylenol Tab) 650 mg Q4H PRN PO NON-CARDIAC PAIN LEVEL (1-3); Start 12/11/16 at 13:00 Morphine Sulfate (morphine) 2 mg Q2H PRN IV FOR NON CARDIAC PAIN (4-10) Last administered on 12/15/16 10:33; Admin Dose 2 MG; Start 12/11/16 at 13:00 Al Hydrox/Mg Hydrox/Simethicone (Mag-Al Plus) 30 ml Q4H PRN PO GASTROINTESTINAL UPSET; Start 12/11/16 at 13:00 Ondansetron HCl (Zofran Inj) 4 mg Q4H PRN IV NAUSEA AND/OR VOMITING; Start at 13:00 Senna/Docusate Sodium (Senokot-S) 2 tab HS NGT Last administered on 12/24/16 20:16; Admin Dose 2 TAB; Start 12/15/16 at 21:00 Lisinopril (Zestril) 2.5 mg DAILY PO Last administered on 12/23/16 09:38; Admin Dose 2.5 MG; Start 12/18/16 at 09:00 Heparin Sodium (Porcine) (Heparin (5000 Units/0.5 ml)) 5,000 unit BID SC Last administered on 12/25/16 08:37; Admin Dose 5,000 UNIT; Start 12/17/16 at 21:00 Famotidine 20 mg 20 mg HS PO Last administered on 12/24/16 20:16; Admin Dose 20 MG; Start 12/17/16 at 21:00 Caspofungin 50 mg/ Sodium Chloride 250 ml @ 250 mls/hr Q24H IVPB Last administered on 12/24/16 17:49; Admin Dose 250 MLS/HR; Start 12/19/16 at 18:00 Cefepime HCl (Maxipime 1gm/50 ml (Pmx)) 50 ml @ 100 mls/hr Q12 IVPB Last administered on 12/25/16 08:25; Admin Dose 100 MLS/HR; Start 12/19/16 at 21:00 Potassium Chloride (Potassium Chloride Pwd/Soln) 40 meq DAILY NGT Last administered on 12/25/16 08:25; Admin Dose 40 MEQ; Start 12/21/16 at 14:30 Guaifenesin (Robitussin Liquid Cup) 100 mg Q6H PRN PO COUGH Last administered on 12/24/16 13:02; Admin Dose 100 MG; Start 12/23/16 at 23:00 Furosemide (Lasix) 40 mg BID PO ; Start 12/25/16 at 21:00 Insulin Glargine (Lantus) 40 unit DAILY@20 SC ; Start 12/25/16 at 20:00 RHONDA PENA Dec 25, 2016 13:23
[2016-12-25] MEDS ORDERED: HYPOGLYCEMIA PROTOCOL when Glucose is <70 mg/dL or symptomatic <90 mg/dL. XX ONE (15:00)
[2016-12-25] MEDS ORDERED: Discontinue Glyburide, Glipizide, and/or Glimepiride prior to starting Insulin XX ONE (15:00)
[2016-12-25] MEDS: CASPOFUNGIN 50 MG in SOD CHLORIDE 0.9% 250 ML IVPB SCH (17:18)
[2016-12-25] MEDS: INSULIN GLARGINE [LANtus] 3 ML PEN SC SCH (21:12)
[2016-12-25] MEDS: SENNA/DOCUSATE NA (8.6MG/50MG) TAB NGT SCH (21:26)
[2016-12-25] MEDS: ATORVASTATIN 20 MG TAB PO SCH (21:27)
[2016-12-25] MEDS: FUROSEMIDE 40 MG TAB PO SCH (21:27)
[2016-12-25] MEDS: FAMOTIDINE 20 MG TAB PO SCH (21:27)
[2016-12-26] VITALS (10 sets, daily range): BP systolic 18–102; BP diastolic 43–52; PULSE 75–82; RESP 18–19
[2016-12-26] MEDS: ALBUTEROL/IPRATROPIUM (NEB) 3 ML AMP HHN SCH ×4 (01:47→19:43)
[2016-12-26] MEDS: INSULIN ASPART [NOVOLOG] 3 ML PEN SC SCH ×6 (01:59→21:00)
[2016-12-26] MEDS: LEVOTHYROXINE 112 MCG TAB PO SCH (06:00)
--- NOTE | 2016-12-26 06:58 | CONS ---
DATE OF ADMISSION: 12/10/2016 DATE OF CONSULTATION: 12/19/2016 REASON FOR CONSULTATION: Antibiotic management. HISTORY OF PRESENT ILLNESS: Ana Castaneda is a 56-year-old female with numerous problems who was intubated at the time of transfer from [facility], now is extubated. Her past problems include: 1. Adult-onset diabetes mellitus. 2. Hypertension. 3. Coronary artery disease with history of ME. 4. Tobacco abuse. 5. Hypothyroidism. Acutely, patient was admitted in transfer. On admission, her white count was 11.4, H and H was 12.2 and 36.8, platelet count of 144,000. White count on the 7th is up to 30.1. BUN and creatinine are 38/0.82. Urine is trace leukocyte esterase, negative nitrite, 1+ ketones. Microbiology: Patient is growing Mandy glabrata from her urine as of 12/13. Chest x-ray initially on 12/10 showed an endotracheal tube, an NG tube, right arm PICC line and pulmonary edema. Apparently on the , she has a right PICC line, diffuse interstitial prominence in both lungs are unchanged, superimposed patchy alveolar infiltrates in left upper lobe are stable, patchy infiltrates in the right lower lobe have mildly increased. Lungs are hyperinflated. Stable diffuse interstitial prominence in both lungs. Interval increase in patchy right lower lobe infiltrates. Stable mild patchy alveolar infiltrates in the left upper lobe. Patient is currently on fluconazole. She is afebrile but as noted her white count is markedly elevated. She is currently on fluconazole alone. PAST MEDICAL HISTORY: Operations as outlined. FAMILY HISTORY: Noncontributory. SOCIAL HISTORY: She does not smoke, drink or abuse drugs. ALLERGIES: NONE TO PENICILLIN, SULFA OR FOODS. MEDICATION: Per chart. REVIEW OF SYSTEMS: Noncontributory. PHYSICAL EXAMINATION: GENERAL: Patient is an elderly-appearing female who is lethargic but arousable. No acute distress. VITAL SIGNS: Stable. She is afebrile. SKIN: Without generalized rash. HEENT: Within normal limits. NECK: Supple. LYMPH NODES: None palpable. CHEST: Decreased breath sounds at the bases. HEART: Without murmur or gallop. ABDOMEN: Soft, nontender, without organosplenomegaly, masses. EXTREMITIES: Without clubbing, cyanosis, edema. RECTAL AND GENITAL: Exams deferred. NEUROLOGIC: No focal neurological abnormality. IMPRESSION AND PLAN: Patient now has a white count of 30,000. No evidence of diarrhea from Clostridium difficile. She is on fluconazole. We may want to change her to Cancidas. I will get some blood cultures and a urine culture. I will dictate my findings to the hospitalist and the numerous consults. Dictated By: Misael Jacobs MD JD/imani/venus /Document#: [id number]
[2016-12-26] MEDS: CEFEPIME 1GM/50 ML (PMX) 50 ML IVPB SCH ×2 (08:41→22:10)
[2016-12-26] MEDS: DULOXETINE 20 MG CAP DR PO SCH (08:41)
[2016-12-26] MEDS: POTASSIUM CHLORIDE 20 MEQ POWDER FOR ORAL SOLN NGT SCH (08:41)
[2016-12-26] MEDS: GABAPENTIN 300 MG CAP PO SCH ×3 (08:41→22:05)
[2016-12-26] MEDS: ASPIRIN (EC) 81 MG TAB PO SCH (08:41)
[2016-12-26] MEDS: TICAGRELOR 90 MG TABLET PO SCH ×2 (08:44→22:11)
[2016-12-26] MEDS: LISINOPRIL 5 MG TAB PO SCH (09:00)
[2016-12-26] MEDS: METOPROLOL 25 MG TAB PO SCH ×2 (09:00→21:00)
[2016-12-26] MEDS: FUROSEMIDE 40 MG TAB PO SCH ×2 (09:00→21:00)
[2016-12-26] MEDS: HEPARIN 5,000 UNIT/0.5 ML VIAL SC SCH ×2 (09:15→22:13)
--- NOTE | 2016-12-26 09:51 | PN ---
Date/Time of Note Date/Time of Note DATE: 12/26/16 TIME: 09:50 Assessment/Plan Lines/Catheters IV Catheter Type (from Nrsg): Saline Lock Mccray in Place (from Nrsg): No Assessment/Plan Chief Complaint/Hosp Course CAD, status post non-ST elevation [place] History of lice Cardiomyopathy with ejection fraction 25% Respiratory failure Patient is not a candidate to undergo coronary artery bypass grafting at this time Still on BIPAP FiO2 of 40% Would continue medical management Diuretics Plan for possible coronary artery bypass grafting when medically more stable Will discuss with the family Problems: Subjective 24 Hr Interval Summary Constitutional: improved Pain Control: mild Exam/Review of Systems Vital Signs Vitals Vital Signs Date Time Temp Pulse Resp B/P Pulse Ox O2 Delivery O2 Flow Rate FiO2 12/26/16 08:32 3.0 12/26/16 08:32 72 20 95 Nasal Cannula 12/26/16 06:54 98.0 95/48 Intake and Output 12/25/16 12/25/16 12/26/16 15:00 23:00 07:00 Intake Total 1280 ml 1030 ml Output Total 500 ml Balance 1280 ml 530 ml Exam ENMT: mucosa pink and moist, nl external ears & nose, nl lips & teeth, nl nasal mucosa & septum Neck: non-tender, supple Respiratory: clear to auscultation, normal air movement Cardiovascular: nl pulses, regular rate and rhythm Gastrointestinal: nl liver, spleen, non-tender, soft Results Result Diagram: 12/25/16 0704 12/24/16 0728 CHELA ALVARENGA MD Dec 26, 2016 09:51
--- NOTE | 2016-12-26 13:02 | CONS ---
Date/Time of Note Date/Time of Note DATE: 12/26/16 TIME: 13:00 Consult Date/Type/Reason Admit Date/Time Dec 10, 2016 at 16:55 Initial Consult Date 12/12/16 Type of Consultation: Pulmonary Ordering Provider: ROBEL PETTY MD Subjective Patient appears comfortable this morning no acute distress Objective Vital Signs Date Time Temp Pulse Resp B/P Pulse Ox O2 Delivery O2 Flow Rate FiO2 12/26/16 12:00 75 12/26/16 11:38 98.1 18 102/50 96 12/26/16 08:32 3.0 12/26/16 08:32 Nasal Cannula Intake and Output 12/25/16 12/25/16 12/26/16 15:00 23:00 07:00 Intake Total 1280 ml 1030 ml Output Total 500 ml Balance 1280 ml 530 ml Exam Patient GENERAL: Patient comfortable at rest no acute VITAL SIGNS: per chart NECK: Supple. No JVD or lymphadenopathy. CARDIAC EXAM: S1, S2. No added sounds or murmurs. CHEST: clear bilaterally, No added sounds, rales or wheezes ABDOMEN: Soft, nontender. No guarding or rebound. EXTREMITIES: No cyanosis, clubbing or edema. NEUROLOGIC: Generalized weakness. No focal deficits. Results/Medications Result Diagram: 12/25/16 0704 12/24/16 0728 Results 24 hrs Laboratory Tests Test 12/25/16 17:15 12/25/16 21:05 12/26/16 01:50 12/26/16 06:17 Bedside Glucose 271 H 258 H 254 H 116 Test 12/26/16 08:39 12/26/16 12:26 Bedside Glucose 128 123 Medications Current Medications Aspirin (Halfprin) 81 mg DAILY PO Last administered on 12/26/16 08:41; Admin Dose 81 MG; Start 12/11/16 at 09:00 Atorvastatin Calcium (Lipitor) 20 mg HS PO Last administered on 12/25/16 21:27 ; Admin Dose 20 MG; Start 12/10/16 at 21:00 Duloxetine HCl (Cymbalta) 20 mg DAILY PO Last administered on 12/26/16 08:41; Admin Dose 20 MG; Start 12/11/16 at 09:00 Gabapentin (Neurontin) 300 mg TID PO Last administered on 12/26/16 08:41; Admin Dose 300 MG; Start 12/10/16 at 21:00 Metoprolol Tartrate (Lopressor) 12.5 mg BID PO Last administered on 12/25/16 21:28; Admin Dose 12.5 MG; Start 12/10/16 at 21:00 Ticagrelor (Brilinta) 90 mg BID PO Last administered on 12/26/16 08:44; Admin Dose 90 MG; Start 12/10/16 at 21:00 Levothyroxine Sodium (Synthroid) 112 mcg DAILY@06 PO Last administered on 06:00; Admin Dose 112 MCG; Start 12/11/16 at 06:00 Miscellaneous Information 1 ea NOTE XX ; Start 12/10/16 at 18:30 Glucose (Glutose) 15 gm Q15M PRN PO DECREASED GLUCOSE; Start 12/10/16 at 18:30 Glucose (Glutose) 22.5 gm Q15M PRN PO DECREASED GLUCOSE; Start 12/10/16 at 18: 30 Dextrose (D50w Syringe) 25 ml Q15M PRN IV DECREASED GLUCOSE Last administered on 12/13/16 13:10; Admin Dose 25 ML; Start 12/10/16 at 18:30 Dextrose (D50w Syringe) 50 ml Q15M PRN IV DECREASED GLUCOSE; Start 12/10/16 at 18:30 Glucagon (Glucagen) 1 mg Q15M PRN IM DECREASED GLUCOSE; Start 12/10/16 at 18:30 Glucose (Glutose) 15 gm Q15M PRN BUCCAL DECREASED GLUCOSE; Start 12/10/16 at 18 :30 Acetaminophen (Tylenol Liquid) 650 mg Q6H PRN NGT PAIN AND OR ELEVATED TEMP Last administered on 12/23/16 23:35; Admin Dose 650 MG; Start 12/10/16 at 21:00 Acetaminophen (Tylenol Tab) 650 mg Q4H PRN PO NON-CARDIAC PAIN LEVEL (1-3); Start 12/11/16 at 13:00 Morphine Sulfate (morphine) 2 mg Q2H PRN IV FOR NON CARDIAC PAIN (4-10) Last administered on 12/15/16 10:33; Admin Dose 2 MG; Start 12/11/16 at 13:00 Al Hydrox/Mg Hydrox/Simethicone (Mag-Al Plus) 30 ml Q4H PRN PO GASTROINTESTINAL UPSET; Start 12/11/16 at 13:00 Ondansetron HCl (Zofran Inj) 4 mg Q4H PRN IV NAUSEA AND/OR VOMITING; Start at 13:00 Senna/Docusate Sodium (Senokot-S) 2 tab HS NGT Last administered on 12/25/16 21:26; Admin Dose 2 TAB; Start 12/15/16 at 21:00 Lisinopril (Zestril) 2.5 mg DAILY PO Last administered on 12/23/16 09:38; Admin Dose 2.5 MG; Start 12/18/16 at 09:00 Heparin Sodium (Porcine) (Heparin (5000 Units/0.5 ml)) 5,000 unit BID SC Last administered on 12/26/16 09:15; Admin Dose 5,000 UNIT; Start 12/17/16 at 21:00 Famotidine 20 mg 20 mg HS PO Last administered on 12/25/16 21:27; Admin Dose 20 MG; Start 12/17/16 at 21:00 Caspofungin 50 mg/ Sodium Chloride 250 ml @ 250 mls/hr Q24H IVPB Last administered on 12/25/16 17:18; Admin Dose 250 MLS/HR; Start 12/19/16 at 18:00 Cefepime HCl (Maxipime 1gm/50 ml (Pmx)) 50 ml @ 100 mls/hr Q12 IVPB Last administered on 12/26/16 08:41; Admin Dose 100 MLS/HR; Start 12/19/16 at 21:00 Potassium Chloride (Potassium Chloride Pwd/Soln) 40 meq DAILY NGT Last administered on 12/26/16 08:41; Admin Dose 40 MEQ; Start 12/21/16 at 14:30 Guaifenesin (Robitussin Liquid Cup) 100 mg Q6H PRN PO COUGH Last administered on 12/24/16 13:02; Admin Dose 100 MG; Start 12/23/16 at 23:00 Furosemide (Lasix) 40 mg BID PO Last administered on 12/25/16 21:27; Admin Dose 40 MG; Start 12/25/16 at 21:00 Insulin Glargine (Lantus) 40 unit DAILY@20 SC Last administered on 12/25/16 21 :12; Admin Dose 40 UNIT; Start 12/25/16 at 20:00 Insulin Aspart (Novolog Insulin Pen) NOVOLOG *MILD* ALGORI... Q4 SC Last administered on 12/26/16 01:59; Admin Dose 3 UNIT; Start 12/25/16 at 17:00 Assessment/Plan Chief Complaint/Hosp Course IMP: 1. s/p NSTEMI 2. Resp Failure--due to pulm edema now extubated on nasal cannula oxygen 3. AMS-resolved likely toxic metabolic encephalopathy 4. RLL pneumonia 5. Anemia 6. Dysphagia RECS: 1. Replete K+ and increase free H2O 2. Continue o2 3. Continue cefepime 4. TF/ Free H2O 5. Discussed with speech therapy they will reassess her swallowing today. 6. Discussed with cardiac surgery will defer that cardiac surgery until the patient is more stable. Problems: STEFANI GONZALES MD, [facility] Dec 26, 2016 13:01
--- NOTE | 2016-12-26 13:53 | CONS ---
Date/Time of Note Date/Time of Note DATE: 12/26/16 TIME: 13:50 Assessment/Plan Assessment/Plan Chief Complaint/Hosp Course IMP: 1.NSTEMI-peak trop>60 Now dowtrended significantly s/p LHC with patent RCA stents and high grade disease of LAD/LCX with small caliber vessels and recc for CABG 2.cardiomyopathy-LVEF 40-45 BY OSH echo. 25% by echo read here 3.Hypotension-improved off of pressors with some lability and holding of anti- hypertenives at times 4.resp failure s/p extubation requiring PRN BIPAP which has decreased in need/ frequency 5.anemia 6. AMS/encephalopathy 7. PNA 8. COPD 9. Hypothyroid Recc: -Tele -Follow BP closely and continue low dose BB/ACEI as tolerated only -Continue asa/brilinta -Continue statin -Follow volume status closely and continue lasix diuresis as tolerated now PO -Smoking cessation -Follow BS closely -Continue abx's and f/u cx data -Continue bronchodilators -CT surgical eval ongoing and have discussed with daughter who is agreeable and CT surgery following Problems: Consultation Date/Type/Reason Admit Date/Time Dec 10, 2016 at 16:55 Initial Consult Date 12/12/16 Type of Consultation: cardiology Reason for Consultation nstemi Referring Provider: ROBEL PETTY MD Exam/Review of Systems Vital Signs Vitals Vital Signs Date Time Temp Pulse Resp B/P Pulse Ox O2 Delivery O2 Flow Rate FiO2 12/26/16 12:00 75 12/26/16 11:38 98.1 18 102/50 96 12/26/16 08:32 3.0 12/26/16 08:32 Nasal Cannula Intake and Output 12/25/16 12/25/16 12/26/16 15:00 23:00 07:00 Intake Total 1280 ml 1030 ml Output Total 500 ml Balance 1280 ml 530 ml Exam Review of Systems: CONSTITUTIONAL: No fevers, chills. PULMONARY: mild sob CARDIOVASCULAR: No chest pain/palpitations GASTROINTESTINAL: No nausea/vomiting. GENITOURINARY: No hematuria/dysuria. MUSCULOSKELETAL: No myagias/arthalgias. PSYCHIATRIC: The patient denies depression. NEUROLOGIC: encephalopathy Constitutional: alert Psych: no complaints Head: normocephalic ENMT: mucosa pink and moist Neck: jvd (9 cm water), supple Respiratory: diminished breath sounds (at bases/B) Cardiovascular: regular rate and rhythm Gastrointestinal: non-tender, soft Extremities: edema (none) 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: other (NO focal deficits) Results Result Diagram: 12/25/16 0704 12/24/16 0728 Results 24 hrs Laboratory Tests Test 12/25/16 17:15 12/25/16 21:05 12/26/16 01:50 12/26/16 06:17 Bedside Glucose 271 H 258 H 254 H 116 Test 12/26/16 08:39 12/26/16 12:26 Bedside Glucose 128 123 Medications Medications Current Medications Aspirin (Halfprin) 81 mg DAILY PO Last administered on 12/26/16 08:41; Admin Dose 81 MG; Start 12/11/16 at 09:00 Atorvastatin Calcium (Lipitor) 20 mg HS PO Last administered on 12/25/16 21:27 ; Admin Dose 20 MG; Start 12/10/16 at 21:00 Duloxetine HCl (Cymbalta) 20 mg DAILY PO Last administered on 12/26/16 08:41; Admin Dose 20 MG; Start 12/11/16 at 09:00 Gabapentin (Neurontin) 300 mg TID PO Last administered on 12/26/16 13:21; Admin Dose 300 MG; Start 12/10/16 at 21:00 Metoprolol Tartrate (Lopressor) 12.5 mg BID PO Last administered on 12/25/16 21:28; Admin Dose 12.5 MG; Start 12/10/16 at 21:00 Ticagrelor (Brilinta) 90 mg BID PO Last administered on 12/26/16 08:44; Admin Dose 90 MG; Start 12/10/16 at 21:00 Levothyroxine Sodium (Synthroid) 112 mcg DAILY@06 PO Last administered on 06:00; Admin Dose 112 MCG; Start 12/11/16 at 06:00 Miscellaneous Information 1 ea NOTE XX ; Start 12/10/16 at 18:30 Glucose (Glutose) 15 gm Q15M PRN PO DECREASED GLUCOSE; Start 12/10/16 at 18:30 Glucose (Glutose) 22.5 gm Q15M PRN PO DECREASED GLUCOSE; Start 12/10/16 at 18: 30 Dextrose (D50w Syringe) 25 ml Q15M PRN IV DECREASED GLUCOSE Last administered on 12/13/16 13:10; Admin Dose 25 ML; Start 12/10/16 at 18:30 Dextrose (D50w Syringe) 50 ml Q15M PRN IV DECREASED GLUCOSE; Start 12/10/16 at 18:30 Glucagon (Glucagen) 1 mg Q15M PRN IM DECREASED GLUCOSE; Start 12/10/16 at 18:30 Glucose (Glutose) 15 gm Q15M PRN BUCCAL DECREASED GLUCOSE; Start 12/10/16 at 18 :30 Acetaminophen (Tylenol Liquid) 650 mg Q6H PRN NGT PAIN AND OR ELEVATED TEMP Last administered on 12/23/16 23:35; Admin Dose 650 MG; Start 12/10/16 at 21:00 Acetaminophen (Tylenol Tab) 650 mg Q4H PRN PO NON-CARDIAC PAIN LEVEL (1-3); Start 12/11/16 at 13:00 Morphine Sulfate (morphine) 2 mg Q2H PRN IV FOR NON CARDIAC PAIN (4-10) Last administered on 12/15/16 10:33; Admin Dose 2 MG; Start 12/11/16 at 13:00 Al Hydrox/Mg Hydrox/Simethicone (Mag-Al Plus) 30 ml Q4H PRN PO GASTROINTESTINAL UPSET; Start 12/11/16 at 13:00 Ondansetron HCl (Zofran Inj) 4 mg Q4H PRN IV NAUSEA AND/OR VOMITING; Start at 13:00 Senna/Docusate Sodium (Senokot-S) 2 tab HS NGT Last administered on 12/25/16 21:26; Admin Dose 2 TAB; Start 12/15/16 at 21:00 Lisinopril (Zestril) 2.5 mg DAILY PO Last administered on 12/23/16 09:38; Admin Dose 2.5 MG; Start 12/18/16 at 09:00 Heparin Sodium (Porcine) (Heparin (5000 Units/0.5 ml)) 5,000 unit BID SC Last administered on 12/26/16 09:15; Admin Dose 5,000 UNIT; Start 12/17/16 at 21:00 Famotidine 20 mg 20 mg HS PO Last administered on 12/25/16 21:27; Admin Dose 20 MG; Start 12/17/16 at 21:00 Caspofungin 50 mg/ Sodium Chloride 250 ml @ 250 mls/hr Q24H IVPB Last administered on 12/25/16 17:18; Admin Dose 250 MLS/HR; Start 12/19/16 at 18:00 Cefepime HCl (Maxipime 1gm/50 ml (Pmx)) 50 ml @ 100 mls/hr Q12 IVPB Last administered on 12/26/16 08:41; Admin Dose 100 MLS/HR; Start 12/19/16 at 21:00 Potassium Chloride (Potassium Chloride Pwd/Soln) 40 meq DAILY NGT Last administered on 12/26/16 08:41; Admin Dose 40 MEQ; Start 12/21/16 at 14:30 Guaifenesin (Robitussin Liquid Cup) 100 mg Q6H PRN PO COUGH Last administered on 12/24/16 13:02; Admin Dose 100 MG; Start 12/23/16 at 23:00 Furosemide (Lasix) 40 mg BID PO Last administered on 12/25/16 21:27; Admin Dose 40 MG; Start 12/25/16 at 21:00 Insulin Glargine (Lantus) 40 unit DAILY@20 SC Last administered on 12/25/16 21 :12; Admin Dose 40 UNIT; Start 12/25/16 at 20:00 Insulin Aspart (Novolog Insulin Pen) NOVOLOG *MILD* ALGORI... Q4 SC Last administered on 12/26/16 01:59; Admin Dose 3 UNIT; Start 12/25/16 at 17:00 RHONDA PENA Dec 26, 2016 13:53
--- NOTE | 2016-12-26 14:41 | CONS ---
Date/Time of Note Date/Time of Note DATE: 12/26/16 TIME: 14:39 Assessment/Plan Assessment/Plan Chief Complaint/Hosp Course Awake, looks comfortable, no fevers. Family at bedside Microbiology: Sputum culture on December 19 grew Klebsiella pneumonia and staph aureus Indwelling's NG tube, Mccray catheter, right upper extremity PICC line Antibiotics: Cefepime Cancidas Physical examination: Well-developed, older looking 56-year-old woman who is awake in no distress. Head atraumatic normocephalic sclera nonicteric. Bugle mucosa pink dry neck is supple chest rise symmetrical breath sounds clear, diminished basis. Heart S1-S2. Abdomen soft bowel tones present. Extremities without cyanosis. Assessment: 1. Resolving leukocytosis likely secondary to pneumonia 2. Status post fungal UTI 3. Non-ST elevation [place]/cardiomyopathy with ejection fraction 25% 4. Status post respiratory failure 5. Dysphasia==> possible ongoing aspiration, patient getting tube feedings through NG tube 6. Head lies status post treatment Plan: Remain stable, DC Cancidas, continue cefepime, continue antibiotics, continue anti-aspiration measures. Possible CABG once medically stable [facility] staff Problems: Consultation Date/Type/Reason Admit Date/Time Dec 10, 2016 at 16:55 Initial Consult Date 12/12/16 Type of Consultation: id Referring Provider: ROBEL PETTY MD Exam/Review of Systems Vital Signs Vitals Vital Signs Date Time Temp Pulse Resp B/P Pulse Ox O2 Delivery O2 Flow Rate FiO2 12/26/16 14:25 3.0 12/26/16 14:25 74 20 97 Nasal Cannula 12/26/16 11:38 98.1 102/50 Intake and Output 12/25/16 12/25/16 12/26/16 15:00 23:00 07:00 Intake Total 1280 ml 1030 ml Output Total 500 ml Balance 1280 ml 530 ml Results Result Diagram: 12/25/16 0704 12/24/16 0728 Results 24 hrs Laboratory Tests Test 12/25/16 17:15 12/25/16 21:05 12/26/16 01:50 12/26/16 06:17 Bedside Glucose 271 H 258 H 254 H 116 Test 12/26/16 08:39 12/26/16 12:26 Bedside Glucose 128 123 Medications Medications Current Medications Aspirin (Halfprin) 81 mg DAILY PO Last administered on 12/26/16 08:41; Admin Dose 81 MG; Start 12/11/16 at 09:00 Atorvastatin Calcium (Lipitor) 20 mg HS PO Last administered on 12/25/16 21:27 ; Admin Dose 20 MG; Start 12/10/16 at 21:00 Duloxetine HCl (Cymbalta) 20 mg DAILY PO Last administered on 12/26/16 08:41; Admin Dose 20 MG; Start 12/11/16 at 09:00 Gabapentin (Neurontin) 300 mg TID PO Last administered on 12/26/16 13:21; Admin Dose 300 MG; Start 12/10/16 at 21:00 Metoprolol Tartrate (Lopressor) 12.5 mg BID PO Last administered on 12/25/16 21:28; Admin Dose 12.5 MG; Start 12/10/16 at 21:00 Ticagrelor (Brilinta) 90 mg BID PO Last administered on 12/26/16 08:44; Admin Dose 90 MG; Start 12/10/16 at 21:00 Levothyroxine Sodium (Synthroid) 112 mcg DAILY@06 PO Last administered on 06:00; Admin Dose 112 MCG; Start 12/11/16 at 06:00 Miscellaneous Information 1 ea NOTE XX ; Start 12/10/16 at 18:30 Glucose (Glutose) 15 gm Q15M PRN PO DECREASED GLUCOSE; Start 12/10/16 at 18:30 Glucose (Glutose) 22.5 gm Q15M PRN PO DECREASED GLUCOSE; Start 12/10/16 at 18: 30 Dextrose (D50w Syringe) 25 ml Q15M PRN IV DECREASED GLUCOSE Last administered on 12/13/16 13:10; Admin Dose 25 ML; Start 12/10/16 at 18:30 Dextrose (D50w Syringe) 50 ml Q15M PRN IV DECREASED GLUCOSE; Start 12/10/16 at 18:30 Glucagon (Glucagen) 1 mg Q15M PRN IM DECREASED GLUCOSE; Start 12/10/16 at 18:30 Glucose (Glutose) 15 gm Q15M PRN BUCCAL DECREASED GLUCOSE; Start 12/10/16 at 18 :30 Acetaminophen (Tylenol Liquid) 650 mg Q6H PRN NGT PAIN AND OR ELEVATED TEMP Last administered on 12/23/16 23:35; Admin Dose 650 MG; Start 12/10/16 at 21:00 Acetaminophen (Tylenol Tab) 650 mg Q4H PRN PO NON-CARDIAC PAIN LEVEL (1-3); Start 12/11/16 at 13:00 Morphine Sulfate (morphine) 2 mg Q2H PRN IV FOR NON CARDIAC PAIN (4-10) Last administered on 12/15/16 10:33; Admin Dose 2 MG; Start 12/11/16 at 13:00 Al Hydrox/Mg Hydrox/Simethicone (Mag-Al Plus) 30 ml Q4H PRN PO GASTROINTESTINAL UPSET; Start 12/11/16 at 13:00 Ondansetron HCl (Zofran Inj) 4 mg Q4H PRN IV NAUSEA AND/OR VOMITING; Start at 13:00 Senna/Docusate Sodium (Senokot-S) 2 tab HS NGT Last administered on 12/25/16 21:26; Admin Dose 2 TAB; Start 12/15/16 at 21:00 Lisinopril (Zestril) 2.5 mg DAILY PO Last administered on 12/23/16 09:38; Admin Dose 2.5 MG; Start 12/18/16 at 09:00 Heparin Sodium (Porcine) (Heparin (5000 Units/0.5 ml)) 5,000 unit BID SC Last administered on 12/26/16 09:15; Admin Dose 5,000 UNIT; Start 12/17/16 at 21:00 Famotidine 20 mg 20 mg HS PO Last administered on 12/25/16 21:27; Admin Dose 20 MG; Start 12/17/16 at 21:00 Caspofungin 50 mg/ Sodium Chloride 250 ml @ 250 mls/hr Q24H IVPB Last administered on 12/25/16 17:18; Admin Dose 250 MLS/HR; Start 12/19/16 at 18:00 Cefepime HCl (Maxipime 1gm/50 ml (Pmx)) 50 ml @ 100 mls/hr Q12 IVPB Last administered on 12/26/16 08:41; Admin Dose 100 MLS/HR; Start 12/19/16 at 21:00 Potassium Chloride (Potassium Chloride Pwd/Soln) 40 meq DAILY NGT Last administered on 12/26/16 08:41; Admin Dose 40 MEQ; Start 12/21/16 at 14:30 Guaifenesin (Robitussin Liquid Cup) 100 mg Q6H PRN PO COUGH Last administered on 12/24/16 13:02; Admin Dose 100 MG; Start 12/23/16 at 23:00 Furosemide (Lasix) 40 mg BID PO Last administered on 12/25/16 21:27; Admin Dose 40 MG; Start 12/25/16 at 21:00 Insulin Glargine (Lantus) 40 unit DAILY@20 SC Last administered on 12/25/16 21 :12; Admin Dose 40 UNIT; Start 12/25/16 at 20:00 Insulin Aspart (Novolog Insulin Pen) NOVOLOG *MILD* ALGORI... Q4 SC Last administered on 12/26/16 01:59; Admin Dose 3 UNIT; Start 12/25/16 at 17:00 DANYELLE ROSSI NP Dec 26, 2016 14:41
--- NOTE | 2016-12-26 15:21 | PN ---
Date/Time of Note Date/Time of Note DATE: 12/26/16 TIME: 15:20 Assessment/Plan VTE Prophylaxis VTE Prophylaxis Intervention: SCD's Lines/Catheters IV Catheter Type (from Nrs): Saline Lock Urinary Cath still in place: No Assessment/Plan Assessment/Plan 56 yo F with PMHx DM2 nonadherent to insulin, HTN, presented with DKA and NSTEMI. Pt is sp LHC with PCI but per cardiology also needs CABG. #NSTEMI sp PCI with CAD warranting CABG -cont DAPT, BP meds, statin -CT surgery following for CABG eval #ICM: EF 25% -cont med management #DM2: a1c 9s. Continue lantus and aspart changed insulin recs to comply with dm educator's requests of note, once NGT removed and pt resumes eating normal meals will likely go back to home insulin regimen #aspiration pna, ?fungal cystitis: antimicrobials as per ID. antifungal stopped today #hypothyroid: cont home meds PT/OT/ARU evals for discharge planning placed 7.11 CT surg at this time advising sub acute rehab prior to CABG. CM aware. Subjective 24 Hr Interval Summary Free Text/Dictation Pt without complaint, wondering when her CABG will be. Exam/Review of Systems Vital Signs Vitals Vital Signs Date Time Temp Pulse Resp B/P Pulse Ox O2 Delivery O2 Flow Rate FiO2 12/26/16 14:25 3.0 12/26/16 14:25 74 20 97 Nasal Cannula 12/26/16 11:38 98.1 102/50 Intake and Output 12/25/16 12/25/16 12/26/16 15:00 23:00 07:00 Intake Total 1280 ml 1030 ml Output Total 500 ml Balance 1280 ml 530 ml Exam nad, laying in bed ng in place no mrg lungs clear abd soft no rashes elevated BGs noted Results Result Diagram: 12/25/16 0704 12/24/16 0728 Results 24 hrs Laboratory Tests Test 12/25/16 17:15 12/25/16 21:05 12/26/16 01:50 12/26/16 06:17 Bedside Glucose 271 H 258 H 254 H 116 Test 12/26/16 08:39 12/26/16 12:26 Bedside Glucose 128 123 Medications Medications Current Medications Aspirin (Halfprin) 81 mg DAILY PO Last administered on 12/26/16 08:41; Admin Dose 81 MG; Start 12/11/16 at 09:00 Atorvastatin Calcium (Lipitor) 20 mg HS PO Last administered on 12/25/16 21:27 ; Admin Dose 20 MG; Start 12/10/16 at 21:00 Duloxetine HCl (Cymbalta) 20 mg DAILY PO Last administered on 12/26/16 08:41; Admin Dose 20 MG; Start 12/11/16 at 09:00 Gabapentin (Neurontin) 300 mg TID PO Last administered on 12/26/16 13:21; Admin Dose 300 MG; Start 12/10/16 at 21:00 Metoprolol Tartrate (Lopressor) 12.5 mg BID PO Last administered on 12/25/16 21:28; Admin Dose 12.5 MG; Start 12/10/16 at 21:00 Ticagrelor (Brilinta) 90 mg BID PO Last administered on 12/26/16 08:44; Admin Dose 90 MG; Start 12/10/16 at 21:00 Levothyroxine Sodium (Synthroid) 112 mcg DAILY@06 PO Last administered on 06:00; Admin Dose 112 MCG; Start 12/11/16 at 06:00 Miscellaneous Information 1 ea NOTE XX ; Start 12/10/16 at 18:30 Glucose (Glutose) 15 gm Q15M PRN PO DECREASED GLUCOSE; Start 12/10/16 at 18:30 Glucose (Glutose) 22.5 gm Q15M PRN PO DECREASED GLUCOSE; Start 12/10/16 at 18: 30 Dextrose (D50w Syringe) 25 ml Q15M PRN IV DECREASED GLUCOSE Last administered on 12/13/16 13:10; Admin Dose 25 ML; Start 12/10/16 at 18:30 Dextrose (D50w Syringe) 50 ml Q15M PRN IV DECREASED GLUCOSE; Start 12/10/16 at 18:30 Glucagon (Glucagen) 1 mg Q15M PRN IM DECREASED GLUCOSE; Start 12/10/16 at 18:30 Glucose (Glutose) 15 gm Q15M PRN BUCCAL DECREASED GLUCOSE; Start 12/10/16 at 18 :30 Acetaminophen (Tylenol Liquid) 650 mg Q6H PRN NGT PAIN AND OR ELEVATED TEMP Last administered on 12/23/16 23:35; Admin Dose 650 MG; Start 12/10/16 at 21:00 Acetaminophen (Tylenol Tab) 650 mg Q4H PRN PO NON-CARDIAC PAIN LEVEL (1-3); Start 12/11/16 at 13:00 Morphine Sulfate (morphine) 2 mg Q2H PRN IV FOR NON CARDIAC PAIN (4-10) Last administered on 12/15/16 10:33; Admin Dose 2 MG; Start 12/11/16 at 13:00 Al Hydrox/Mg Hydrox/Simethicone (Mag-Al Plus) 30 ml Q4H PRN PO GASTROINTESTINAL UPSET; Start 12/11/16 at 13:00 Ondansetron HCl (Zofran Inj) 4 mg Q4H PRN IV NAUSEA AND/OR VOMITING; Start at 13:00 Senna/Docusate Sodium (Senokot-S) 2 tab HS NGT Last administered on 12/25/16 21:26; Admin Dose 2 TAB; Start 12/15/16 at 21:00 Lisinopril (Zestril) 2.5 mg DAILY PO Last administered on 12/23/16 09:38; Admin Dose 2.5 MG; Start 12/18/16 at 09:00 Heparin Sodium (Porcine) (Heparin (5000 Units/0.5 ml)) 5,000 unit BID SC Last administered on 12/26/16 09:15; Admin Dose 5,000 UNIT; Start 12/17/16 at 21:00 Famotidine 20 mg 20 mg HS PO Last administered on 12/25/16 21:27; Admin Dose 20 MG; Start 12/17/16 at 21:00 Cefepime HCl (Maxipime 1gm/50 ml (Pmx)) 50 ml @ 100 mls/hr Q12 IVPB Last administered on 12/26/16 08:41; Admin Dose 100 MLS/HR; Start 12/19/16 at 21:00 Potassium Chloride (Potassium Chloride Pwd/Soln) 40 meq DAILY NGT Last administered on 12/26/16 08:41; Admin Dose 40 MEQ; Start 12/21/16 at 14:30 Guaifenesin (Robitussin Liquid Cup) 100 mg Q6H PRN PO COUGH Last administered on 12/24/16 13:02; Admin Dose 100 MG; Start 12/23/16 at 23:00 Furosemide (Lasix) 40 mg BID PO Last administered on 12/25/16 21:27; Admin Dose 40 MG; Start 12/25/16 at 21:00 Insulin Glargine (Lantus) 40 unit DAILY@20 SC Last administered on 12/25/16 21 :12; Admin Dose 40 UNIT; Start 12/25/16 at 20:00 Insulin Aspart (Novolog Insulin Pen) NOVOLOG *MILD* ALGORI... Q4 SC Last administered on 12/26/16 01:59; Admin Dose 3 UNIT; Start 12/25/16 at 17:00 ROBEL PETTY MD Dec 26, 2016 15:21
[2016-12-26] MEDS: ATORVASTATIN 20 MG TAB PO SCH (21:00)
[2016-12-26] MEDS: FAMOTIDINE 20 MG TAB PO SCH (22:07)
[2016-12-26] MEDS: SENNA/DOCUSATE NA (8.6MG/50MG) TAB NGT SCH (22:07)
[2016-12-26] MEDS: INSULIN GLARGINE [LANtus] 3 ML PEN SC SCH (22:12)
[2016-12-27] VITALS (12 sets, daily range): BP systolic 91–97; BP diastolic 44–83; PULSE 70–77; RESP 17–18
[2016-12-27] MEDS: INSULIN ASPART [NOVOLOG] 3 ML PEN SC SCH ×6 (01:00→21:00)
[2016-12-27] MEDS: ALBUTEROL/IPRATROPIUM (NEB) 3 ML AMP HHN SCH ×4 (01:22→19:21)
[2016-12-27] MEDS: DEXTROSE 50% 50 ML SYRINGE IV PRN ×3 (06:55→17:43)
[2016-12-27] MEDS: LEVOTHYROXINE 112 MCG TAB PO SCH (06:55)
[2016-12-27] MEDS: GABAPENTIN 300 MG CAP PO SCH ×3 (08:43→21:52)
[2016-12-27] MEDS: CEFEPIME 1GM/50 ML (PMX) 50 ML IVPB SCH ×2 (08:43→21:51)
[2016-12-27] MEDS: DULOXETINE 20 MG CAP DR PO SCH (08:43)
[2016-12-27] MEDS: POTASSIUM CHLORIDE 20 MEQ POWDER FOR ORAL SOLN NGT SCH (08:43)
[2016-12-27] MEDS: ASPIRIN (EC) 81 MG TAB PO SCH (08:43)
[2016-12-27] MEDS: TICAGRELOR 90 MG TABLET PO SCH ×2 (08:49→22:04)
[2016-12-27] MEDS: HEPARIN 5,000 UNIT/0.5 ML VIAL SC SCH ×2 (08:50→22:02)
[2016-12-27] MEDS: FUROSEMIDE 40 MG TAB PO SCH (08:54)
[2016-12-27] MEDS: METOPROLOL 25 MG TAB PO SCH ×2 (08:55→21:51)
[2016-12-27] MEDS: LISINOPRIL 5 MG TAB PO SCH (08:55)
--- NOTE | 2016-12-27 12:38 | PN ---
Date/Time of Note Date/Time of Note DATE: 12/27/16 TIME: 12:37 Assessment/Plan VTE Prophylaxis VTE Prophylaxis Intervention: SCD's Lines/Catheters IV Catheter Type (from Nrs): Saline Lock Urinary Cath still in place: No Assessment/Plan Assessment/Plan 56 yo F with PMHx DM2 nonadherent to insulin, HTN, presented with DKA and NSTEMI. Pt is sp LHC with PCI but per cardiology also needs CABG. #NSTEMI sp PCI with CAD warranting CABG -cont DAPT, BP meds, statin -CT surgery following for CABG eval #ICM: EF 25% -cont med management #DM2: a1c 9s. Continue lantus and aspart decrease lantus from 40 units (DM LITA rec) down to 30 of note, once NGT removed and pt resumes eating normal meals will likely go back to home insulin regimen #aspiration pna, ?fungal cystitis: antimicrobials as per ID. antifungal stopped #hypothyroid: cont home meds PT/OT/ARU evals for discharge planning placed 7.11 CT surg at this time advising sub acute rehab prior to CABG. CM aware. Subjective 24 Hr Interval Summary Free Text/Dictation pt a little hypoglycemic this AM. Resolved with glucose gel. Still not ready for PO per ST Exam/Review of Systems Vital Signs Vitals Vital Signs Date Time Temp Pulse Resp B/P Pulse Ox O2 Delivery O2 Flow Rate FiO2 12/27/16 12:24 73 12/27/16 10:55 97.9 17 91/45 96 12/27/16 07:47 Nasal Cannula 3.0 Intake and Output 12/26/16 12/26/16 12/27/16 15:00 23:00 07:00 Intake Total 630 ml Output Total 3 ml Balance 627 ml Exam nad ,sitting up in bed ng tube in place no mrg lungs clear abd soft no rashes Results Result Diagram: 12/25/16 0704 12/24/16 0728 Results 24 hrs Laboratory Tests Test 12/26/16 18:02 12/26/16 22:04 12/27/16 03:02 12/27/16 06:37 Bedside Glucose 195 152 104 69 L Test 12/27/16 08:46 12/27/16 10:01 12/27/16 10:16 12/27/16 10:52 Bedside Glucose 79 67 L 59 L 171 Medications Medications Current Medications Aspirin (Halfprin) 81 mg DAILY PO Last administered on 12/27/16 08:43; Admin Dose 81 MG; Start 12/11/16 at 09:00 Atorvastatin Calcium (Lipitor) 20 mg HS PO Last administered on 12/26/16 21:00 ; Admin Dose 20 MG; Start 12/10/16 at 21:00 Duloxetine HCl (Cymbalta) 20 mg DAILY PO Last administered on 12/27/16 08:43; Admin Dose 20 MG; Start 12/11/16 at 09:00 Gabapentin (Neurontin) 300 mg TID PO Last administered on 12/27/16 08:43; Admin Dose 300 MG; Start 12/10/16 at 21:00 Metoprolol Tartrate (Lopressor) 12.5 mg BID PO Last administered on 12/25/16 21:28; Admin Dose 12.5 MG; Start 12/10/16 at 21:00 Ticagrelor (Brilinta) 90 mg BID PO Last administered on 12/27/16 08:49; Admin Dose 90 MG; Start 12/10/16 at 21:00 Levothyroxine Sodium (Synthroid) 112 mcg DAILY@06 PO Last administered on 06:55; Admin Dose 112 MCG; Start 12/11/16 at 06:00 Miscellaneous Information 1 ea NOTE XX ; Start 12/10/16 at 18:30 Glucose (Glutose) 15 gm Q15M PRN PO DECREASED GLUCOSE; Start 12/10/16 at 18:30 Glucose (Glutose) 22.5 gm Q15M PRN PO DECREASED GLUCOSE; Start 12/10/16 at 18: 30 Dextrose (D50w Syringe) 25 ml Q15M PRN IV DECREASED GLUCOSE Last administered on 12/27/16 10:23; Admin Dose 25 ML; Start 12/10/16 at 18:30 Dextrose (D50w Syringe) 50 ml Q15M PRN IV DECREASED GLUCOSE; Start 12/10/16 at 18:30 Glucagon (Glucagen) 1 mg Q15M PRN IM DECREASED GLUCOSE; Start 12/10/16 at 18:30 Glucose (Glutose) 15 gm Q15M PRN BUCCAL DECREASED GLUCOSE Last administered on 12/27/16 10:05; Admin Dose 15 GM; Start 12/10/16 at 18:30 Acetaminophen (Tylenol Liquid) 650 mg Q6H PRN NGT PAIN AND OR ELEVATED TEMP Last administered on 12/23/16 23:35; Admin Dose 650 MG; Start 12/10/16 at 21:00 Acetaminophen (Tylenol Tab) 650 mg Q4H PRN PO NON-CARDIAC PAIN LEVEL (1-3); Start 12/11/16 at 13:00 Morphine Sulfate (morphine) 2 mg Q2H PRN IV FOR NON CARDIAC PAIN (4-10) Last administered on 12/15/16 10:33; Admin Dose 2 MG; Start 12/11/16 at 13:00 Al Hydrox/Mg Hydrox/Simethicone (Mag-Al Plus) 30 ml Q4H PRN PO GASTROINTESTINAL UPSET; Start 12/11/16 at 13:00 Ondansetron HCl (Zofran Inj) 4 mg Q4H PRN IV NAUSEA AND/OR VOMITING; Start at 13:00 Senna/Docusate Sodium (Senokot-S) 2 tab HS NGT Last administered on 12/26/16 22:07; Admin Dose 2 TAB; Start 12/15/16 at 21:00 Lisinopril (Zestril) 2.5 mg DAILY PO Last administered on 12/23/16 09:38; Admin Dose 2.5 MG; Start 12/18/16 at 09:00 Heparin Sodium (Porcine) (Heparin (5000 Units/0.5 ml)) 5,000 unit BID SC Last administered on 12/27/16 08:50; Admin Dose 5,000 UNIT; Start 12/17/16 at 21:00 Famotidine 20 mg 20 mg HS PO Last administered on 12/26/16 22:07; Admin Dose 20 MG; Start 12/17/16 at 21:00 Cefepime HCl (Maxipime 1gm/50 ml (Pmx)) 50 ml @ 100 mls/hr Q12 IVPB Last administered on 12/27/16 08:43; Admin Dose 100 MLS/HR; Start 12/19/16 at 21:00 Potassium Chloride (Potassium Chloride Pwd/Soln) 40 meq DAILY NGT Last administered on 12/27/16 08:43; Admin Dose 40 MEQ; Start 12/21/16 at 14:30 Guaifenesin (Robitussin Liquid Cup) 100 mg Q6H PRN PO COUGH Last administered on 12/24/16 13:02; Admin Dose 100 MG; Start 12/23/16 at 23:00 Furosemide (Lasix) 40 mg BID PO Last administered on 12/25/16 21:27; Admin Dose 40 MG; Start 12/25/16 at 21:00 Insulin Glargine (Lantus) 40 unit DAILY@20 SC Last administered on 12/26/16 22 :12; Admin Dose 40 UNIT; Start 12/25/16 at 20:00 Insulin Aspart (Novolog Insulin Pen) NOVOLOG *MILD* ALGORI... Q4 SC Last administered on 12/26/16 18:11; Admin Dose 2 UNIT; Start 12/25/16 at 17:00 ROBEL PETTY MD Dec 27, 2016 12:37
--- NOTE | 2016-12-27 12:47 | CONS ---
Date/Time of Note Date/Time of Note DATE: 12/27/16 TIME: 12:46 Consult Date/Type/Reason Admit Date/Time Dec 10, 2016 at 16:55 Initial Consult Date 12/12/16 Type of Consultation: Pulmonary ICU Ordering Provider: ROBEL PETTY MD Subjective Patient comfortable this morning no new events. Still kept n.p.o. as remains aspiration risk. Objective Vital Signs Date Time Temp Pulse Resp B/P Pulse Ox O2 Delivery O2 Flow Rate FiO2 12/27/16 12:24 73 12/27/16 10:55 97.9 17 91/45 96 12/27/16 07:47 Nasal Cannula 3.0 Intake and Output 12/26/16 12/26/16 12/27/16 15:00 23:00 07:00 Intake Total 630 ml Output Total 3 ml Balance 627 ml Exam Patient GENERAL: Patient comfortable at rest VITAL SIGNS: per chart NECK: Supple. No JVD or lymphadenopathy. CARDIAC EXAM: S1, S2. No added sounds or murmurs. CHEST: clear bilaterally, No added sounds, rales or wheezes ABDOMEN: Soft, nontender. No guarding or rebound. EXTREMITIES: No cyanosis, clubbing or edema. NEUROLOGIC: Generalized weakness. No focal deficits. Results/Medications Result Diagram: 12/25/16 0704 12/24/16 0728 Results 24 hrs Laboratory Tests Test 12/26/16 18:02 12/26/16 22:04 12/27/16 03:02 12/27/16 06:37 Bedside Glucose 195 152 104 69 L Test 12/27/16 08:46 12/27/16 10:01 12/27/16 10:16 12/27/16 10:52 Bedside Glucose 79 67 L 59 L 171 Medications Current Medications Aspirin (Halfprin) 81 mg DAILY PO Last administered on 12/27/16 08:43; Admin Dose 81 MG; Start 12/11/16 at 09:00 Atorvastatin Calcium (Lipitor) 20 mg HS PO Last administered on 12/26/16 21:00 ; Admin Dose 20 MG; Start 12/10/16 at 21:00 Duloxetine HCl (Cymbalta) 20 mg DAILY PO Last administered on 12/27/16 08:43; Admin Dose 20 MG; Start 12/11/16 at 09:00 Gabapentin (Neurontin) 300 mg TID PO Last administered on 12/27/16 08:43; Admin Dose 300 MG; Start 12/10/16 at 21:00 Metoprolol Tartrate (Lopressor) 12.5 mg BID PO Last administered on 12/25/16 21:28; Admin Dose 12.5 MG; Start 12/10/16 at 21:00 Ticagrelor (Brilinta) 90 mg BID PO Last administered on 12/27/16 08:49; Admin Dose 90 MG; Start 12/10/16 at 21:00 Levothyroxine Sodium (Synthroid) 112 mcg DAILY@06 PO Last administered on 06:55; Admin Dose 112 MCG; Start 12/11/16 at 06:00 Miscellaneous Information 1 ea NOTE XX ; Start 12/10/16 at 18:30 Glucose (Glutose) 15 gm Q15M PRN PO DECREASED GLUCOSE; Start 12/10/16 at 18:30 Glucose (Glutose) 22.5 gm Q15M PRN PO DECREASED GLUCOSE; Start 12/10/16 at 18: 30 Dextrose (D50w Syringe) 25 ml Q15M PRN IV DECREASED GLUCOSE Last administered on 12/27/16 10:23; Admin Dose 25 ML; Start 12/10/16 at 18:30 Dextrose (D50w Syringe) 50 ml Q15M PRN IV DECREASED GLUCOSE; Start 12/10/16 at 18:30 Glucagon (Glucagen) 1 mg Q15M PRN IM DECREASED GLUCOSE; Start 12/10/16 at 18:30 Glucose (Glutose) 15 gm Q15M PRN BUCCAL DECREASED GLUCOSE Last administered on 12/27/16 10:05; Admin Dose 15 GM; Start 12/10/16 at 18:30 Acetaminophen (Tylenol Liquid) 650 mg Q6H PRN NGT PAIN AND OR ELEVATED TEMP Last administered on 12/23/16 23:35; Admin Dose 650 MG; Start 12/10/16 at 21:00 Acetaminophen (Tylenol Tab) 650 mg Q4H PRN PO NON-CARDIAC PAIN LEVEL (1-3); Start 12/11/16 at 13:00 Morphine Sulfate (morphine) 2 mg Q2H PRN IV FOR NON CARDIAC PAIN (4-10) Last administered on 12/15/16 10:33; Admin Dose 2 MG; Start 12/11/16 at 13:00 Al Hydrox/Mg Hydrox/Simethicone (Mag-Al Plus) 30 ml Q4H PRN PO GASTROINTESTINAL UPSET; Start 12/11/16 at 13:00 Ondansetron HCl (Zofran Inj) 4 mg Q4H PRN IV NAUSEA AND/OR VOMITING; Start at 13:00 Senna/Docusate Sodium (Senokot-S) 2 tab HS NGT Last administered on 12/26/16 22:07; Admin Dose 2 TAB; Start 12/15/16 at 21:00 Lisinopril (Zestril) 2.5 mg DAILY PO Last administered on 12/23/16 09:38; Admin Dose 2.5 MG; Start 12/18/16 at 09:00 Heparin Sodium (Porcine) (Heparin (5000 Units/0.5 ml)) 5,000 unit BID SC Last administered on 12/27/16 08:50; Admin Dose 5,000 UNIT; Start 12/17/16 at 21:00 Famotidine 20 mg 20 mg HS PO Last administered on 12/26/16 22:07; Admin Dose 20 MG; Start 12/17/16 at 21:00 Cefepime HCl (Maxipime 1gm/50 ml (Pmx)) 50 ml @ 100 mls/hr Q12 IVPB Last administered on 12/27/16 08:43; Admin Dose 100 MLS/HR; Start 12/19/16 at 21:00 Potassium Chloride (Potassium Chloride Pwd/Soln) 40 meq DAILY NGT Last administered on 12/27/16 08:43; Admin Dose 40 MEQ; Start 12/21/16 at 14:30 Guaifenesin (Robitussin Liquid Cup) 100 mg Q6H PRN PO COUGH Last administered on 12/24/16 13:02; Admin Dose 100 MG; Start 12/23/16 at 23:00 Furosemide (Lasix) 40 mg BID PO Last administered on 12/25/16 21:27; Admin Dose 40 MG; Start 12/25/16 at 21:00 Insulin Aspart (Novolog Insulin Pen) NOVOLOG *MILD* ALGORI... Q4 SC Last administered on 12/26/16 18:11; Admin Dose 2 UNIT; Start 12/25/16 at 17:00 Insulin Glargine (Lantus) 35 unit DAILY@20 SC ; Start 12/27/16 at 20:00 Assessment/Plan Chief Complaint/Hosp Course IMP: 1. s/p NSTEMI 2. Resp Failure--due to pulm edema now extubated on nasal cannula oxygen 3. AMS-resolved likely toxic metabolic encephalopathy 4. RLL pneumonia 5. Anemia 6. Dysphagia RECS: 1. Replete K+ and increase free H2O 2. Continue o2 3. Continue cefepime 4. TF/ Free H2O 5. Speech therapy plan is to advance diet. 6. Discussed with cardiac surgery will defer that cardiac surgery until the patient is more stable. Consider transfer to [facility]. Problems: STEFANI GONZALES MD, [facility] Dec 27, 2016 12:47
--- NOTE | 2016-12-27 14:50 | PN ---
Date/Time of Note Date/Time of Note DATE: 12/27/16 TIME: 14:50 Assessment/Plan VTE Prophylaxis VTE Prophylaxis Intervention: other Lines/Catheters IV Catheter Type (from Nrs): Urinary Cath still in place: No Assessment/Plan Chief Complaint/Hosp Course CAD, status post non-ST elevation [place] History of lice Cardiomyopathy with ejection fraction 25% Respiratory failure Patient is not a candidate to undergo coronary artery bypass grafting at this time Still on BIPAP FiO2 of 40% Would continue medical management Diuretics Plan for possible coronary artery bypass grafting when medically more stable Will discuss with the family Problems: Subjective 24 Hr Interval Summary Respiratory: no complaints Cardiovascular: no complaints Gastrointestinal: no complaints Genitourinary: no complaints, No bleeding, No discharge, No dysuria, No flank pain, No hematuria, No other Exam/Review of Systems Vital Signs Vitals Vital Signs Date Time Temp Pulse Resp B/P Pulse Ox O2 Delivery O2 Flow Rate FiO2 12/27/16 13:39 99 2.0 12/27/16 13:22 95 18 Nasal Cannula 12/27/16 10:55 97.9 91/45 Intake and Output 12/26/16 12/26/16 12/27/16 15:00 23:00 07:00 Intake Total 630 ml Output Total 3 ml Balance 627 ml Exam Neck: non-tender, supple Respiratory: clear to auscultation, normal air movement Cardiovascular: nl pulses, regular rate and rhythm, No S3, No S4, No bruits, No diastolic murmur, No edema, No gallop, No irregular rhythm, No jugular venous distention (JVD), No murmurs/extra sounds, No other, No rub, No systolic murmur Results Result Diagram: 12/25/16 0704 12/24/16 0728 Results 24 hrs Laboratory Tests Test 12/26/16 18:02 12/26/16 22:04 12/27/16 03:02 12/27/16 06:37 Bedside Glucose 195 152 104 69 L Test 12/27/16 08:46 12/27/16 10:01 12/27/16 10:16 12/27/16 10:52 Bedside Glucose 79 67 L 59 L 171 Test 12/27/16 13:26 Bedside Glucose 123 Medications Medications Current Medications Aspirin (Halfprin) 81 mg DAILY PO Last administered on 12/27/16t 08:43; Admin Dose 81 MG; Start 12/11/16 at 09:00 Atorvastatin Calcium (Lipitor) 20 mg HS PO Last administered on 12/26/16 21:00 ; Admin Dose 20 MG; Start 12/10/16 at 21:00 Duloxetine HCl (Cymbalta) 20 mg DAILY PO Last administered on 12/27/16 08:43; Admin Dose 20 MG; Start 12/11/16 at 09:00 Gabapentin (Neurontin) 300 mg TID PO Last administered on 12/27/16 13:28; Admin Dose 300 MG; Start 12/10/16 at 21:00 Metoprolol Tartrate (Lopressor) 12.5 mg BID PO Last administered on 12/25/16 21:28; Admin Dose 12.5 MG; Start 12/10/16 at 21:00 Ticagrelor (Brilinta) 90 mg BID PO Last administered on 12/27/16 08:49; Admin Dose 90 MG; Start 12/10/16 at 21:00 Levothyroxine Sodium (Synthroid) 112 mcg DAILY@06 PO Last administered on 06:55; Admin Dose 112 MCG; Start 12/11/16 at 06:00 Miscellaneous Information 1 ea NOTE XX ; Start 12/10/16 at 18:30 Glucose (Glutose) 15 gm Q15M PRN PO DECREASED GLUCOSE; Start 12/10/16 at 18:30 Glucose (Glutose) 22.5 gm Q15M PRN PO DECREASED GLUCOSE; Start 12/10/16 at 18: 30 Dextrose (D50w Syringe) 25 ml Q15M PRN IV DECREASED GLUCOSE Last administered on 12/27/16 10:23; Admin Dose 25 ML; Start 12/10/16 at 18:30 Dextrose (D50w Syringe) 50 ml Q15M PRN IV DECREASED GLUCOSE; Start 12/10/16 at 18:30 Glucagon (Glucagen) 1 mg Q15M PRN IM DECREASED GLUCOSE; Start 12/10/16 at 18:30 Glucose (Glutose) 15 gm Q15M PRN BUCCAL DECREASED GLUCOSE Last administered on 12/27/16 10:05; Admin Dose 15 GM; Start 12/10/16 at 18:30 Acetaminophen (Tylenol Liquid) 650 mg Q6H PRN NGT PAIN AND OR ELEVATED TEMP Last administered on 12/23/16 23:35; Admin Dose 650 MG; Start 12/10/16 at 21:00 Acetaminophen (Tylenol Tab) 650 mg Q4H PRN PO NON-CARDIAC PAIN LEVEL (1-3); Start 12/11/16 at 13:00 Morphine Sulfate (morphine) 2 mg Q2H PRN IV FOR NON CARDIAC PAIN (4-10) Last administered on 12/15/16 10:33; Admin Dose 2 MG; Start 12/11/16 at 13:00 Al Hydrox/Mg Hydrox/Simethicone (Mag-Al Plus) 30 ml Q4H PRN PO GASTROINTESTINAL UPSET; Start 12/11/16 at 13:00 Ondansetron HCl (Zofran Inj) 4 mg Q4H PRN IV NAUSEA AND/OR VOMITING; Start at 13:00 Senna/Docusate Sodium (Senokot-S) 2 tab HS NGT Last administered on 12/26/16 22:07; Admin Dose 2 TAB; Start 12/15/16 at 21:00 Lisinopril (Zestril) 2.5 mg DAILY PO Last administered on 12/23/16 09:38; Admin Dose 2.5 MG; Start 12/18/16 at 09:00 Heparin Sodium (Porcine) (Heparin (5000 Units/0.5 ml)) 5,000 unit BID SC Last administered on 12/27/16 08:50; Admin Dose 5,000 UNIT; Start 12/17/16 at 21:00 Famotidine 20 mg 20 mg HS PO Last administered on 12/26/16 22:07; Admin Dose 20 MG; Start 12/17/16 at 21:00 Cefepime HCl (Maxipime 1gm/50 ml (Pmx)) 50 ml @ 100 mls/hr Q12 IVPB Last administered on 12/27/16 08:43; Admin Dose 100 MLS/HR; Start 12/19/16 at 21:00 Potassium Chloride (Potassium Chloride Pwd/Soln) 40 meq DAILY NGT Last administered on 12/27/16 08:43; Admin Dose 40 MEQ; Start 12/21/16 at 14:30 Guaifenesin (Robitussin Liquid Cup) 100 mg Q6H PRN PO COUGH Last administered on 7/12/17at 13:02; Admin Dose 100 MG; Start 12/23/16 at 23:00 Furosemide (Lasix) 40 mg BID PO Last administered on 12/25/16 21:27; Admin Dose 40 MG; Start 12/25/16 at 21:00 Insulin Aspart (Novolog Insulin Pen) NOVOLOG *MILD* ALGORI... Q4 SC Last administered on 12/26/16 18:11; Admin Dose 2 UNIT; Start 12/25/16 at 17:00 Insulin Glargine (Lantus) 35 unit DAILY@20 SC ; Start 12/27/16 at 20:00 CHELA ALVARENGA MD Dec 27, 2016 14:50
--- NOTE | 2016-12-27 15:25 | CONS ---
Date/Time of Note Date/Time of Note DATE: 12/27/16 TIME: 15:21 Assessment/Plan Assessment/Plan Chief Complaint/Hosp Course IMP: 1.NSTEMI-peak trop>60 Now dowtrended significantly s/p LHC with patent RCA stents and high grade disease of LAD/LCX with small caliber vessels and recc for CABG 2.cardiomyopathy-LVEF 40-45 BY OSH echo. 25% by echo read here 3.Hypotension-improved off of pressors with some lability and holding of anti- hypertenives at times 4.resp failure s/p extubation requiring PRN BIPAP which has decreased in need/ frequency 5.anemia 6. AMS/encephalopathy 7. PNA 8. COPD 9. Hypothyroid Recc: -Tele -Follow BP closely and continue low dose BB/ACEI as tolerated only -Continue asa/brilinta -Continue statin -Follow volume status closely and continue lasix diuresis as tolerated now PO and I will decrease to daily -Smoking cessation -Follow BS closely -Continue abx's and f/u cx data -Continue bronchodilators -CT surgical eval ongoing and have discussed with daughter who is agreeable and CT surgery following Problems: Consultation Date/Type/Reason Admit Date/Time Dec 10, 2016 at 16:55 Initial Consult Date 12/12/16 Type of Consultation: cardiology Reason for Consultation Nstemi Referring Provider: ROBEL PETTY MD Exam/Review of Systems Vital Signs Vitals Vital Signs Date Time Temp Pulse Resp B/P Pulse Ox O2 Delivery O2 Flow Rate FiO2 12/27/16 13:39 99 2.0 12/27/16 13:22 95 18 Nasal Cannula 12/27/16 10:55 97.9 91/45 Intake and Output 12/26/16 12/26/16 12/27/16 15:00 23:00 07:00 Intake Total 630 ml Output Total 3 ml Balance 627 ml Exam Review of Systems: CONSTITUTIONAL: No fevers, chills. PULMONARY: No sob CARDIOVASCULAR: No chest pain/palpitations GASTROINTESTINAL: No nausea/vomiting. GENITOURINARY: No hematuria/dysuria. MUSCULOSKELETAL: No myagias/arthalgias. PSYCHIATRIC: The patient denies depression. NEUROLOGIC: No weakness Constitutional: alert Psych: no complaints Head: normocephalic ENMT: mucosa pink and moist Neck: jvd (8 cm water), supple Respiratory: diminished breath sounds Cardiovascular: regular rate and rhythm Gastrointestinal: non-tender, soft Musculoskeletal: muscle tone (normal) Extremities: edema (none) 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: other (No focal deficits) Results Result Diagram: 12/25/16 0704 12/24/16 0728 Results 24 hrs Laboratory Tests Test 12/26/16 18:02 12/26/16 22:04 12/27/16 03:02 12/27/16 06:37 Bedside Glucose 195 152 104 69 L Test 12/27/16 08:46 12/27/16 10:01 12/27/16 10:16 12/27/16 10:52 Bedside Glucose 79 67 L 59 L 171 Test 12/27/16 13:26 Bedside Glucose 123 Medications Medications Current Medications Aspirin (Halfprin) 81 mg DAILY PO Last administered on 12/27/16 08:43; Admin Dose 81 MG; Start 12/11/16 at 09:00 Atorvastatin Calcium (Lipitor) 20 mg HS PO Last administered on 12/26/16 21:00 ; Admin Dose 20 MG; Start 12/10/16 at 21:00 Duloxetine HCl (Cymbalta) 20 mg DAILY PO Last administered on 12/27/16 08:43; Admin Dose 20 MG; Start 12/11/16 at 09:00 Gabapentin (Neurontin) 300 mg TID PO Last administered on 12/27/16 13:28; Admin Dose 300 MG; Start 12/10/16 at 21:00 Metoprolol Tartrate (Lopressor) 12.5 mg BID PO Last administered on 12/25/16 21:28; Admin Dose 12.5 MG; Start 12/10/16 at 21:00 Ticagrelor (Brilinta) 90 mg BID PO Last administered on 12/27/16 08:49; Admin Dose 90 MG; Start 12/10/16 at 21:00 Levothyroxine Sodium (Synthroid) 112 mcg DAILY@06 PO Last administered on 06:55; Admin Dose 112 MCG; Start 12/11/16 at 06:00 Miscellaneous Information 1 ea NOTE XX ; Start 12/10/16 at 18:30 Glucose (Glutose) 15 gm Q15M PRN PO DECREASED GLUCOSE; Start 12/10/16 at 18:30 Glucose (Glutose) 22.5 gm Q15M PRN PO DECREASED GLUCOSE; Start 12/10/16 at 18: 30 Dextrose (D50w Syringe) 25 ml Q15M PRN IV DECREASED GLUCOSE Last administered on 12/27/16 10:23; Admin Dose 25 ML; Start 12/10/16 at 18:30 Dextrose (D50w Syringe) 50 ml Q15M PRN IV DECREASED GLUCOSE; Start 12/10/16 at 18:30 Glucagon (Glucagen) 1 mg Q15M PRN IM DECREASED GLUCOSE; Start 12/10/16 at 18:30 Glucose (Glutose) 15 gm Q15M PRN BUCCAL DECREASED GLUCOSE Last administered on 12/27/16 10:05; Admin Dose 15 GM; Start 12/10/16 at 18:30 Acetaminophen (Tylenol Liquid) 650 mg Q6H PRN NGT PAIN AND OR ELEVATED TEMP Last administered on 12/23/16 23:35; Admin Dose 650 MG; Start 12/10/16 at 21:00 Acetaminophen (Tylenol Tab) 650 mg Q4H PRN PO NON-CARDIAC PAIN LEVEL (1-3); Start 12/11/16 at 13:00 Morphine Sulfate (morphine) 2 mg Q2H PRN IV FOR NON CARDIAC PAIN (4-10) Last administered on 12/15/16 10:33; Admin Dose 2 MG; Start 12/11/16 at 13:00 Al Hydrox/Mg Hydrox/Simethicone (Mag-Al Plus) 30 ml Q4H PRN PO GASTROINTESTINAL UPSET; Start 12/11/16 at 13:00 Ondansetron HCl (Zofran Inj) 4 mg Q4H PRN IV NAUSEA AND/OR VOMITING; Start at 13:00 Senna/Docusate Sodium (Senokot-S) 2 tab HS NGT Last administered on 12/26/16 22:07; Admin Dose 2 TAB; Start 12/15/16 at 21:00 Lisinopril (Zestril) 2.5 mg DAILY PO Last administered on 12/23/16 09:38; Admin Dose 2.5 MG; Start 12/18/16 at 09:00 Heparin Sodium (Porcine) (Heparin (5000 Units/0.5 ml)) 5,000 unit BID SC Last administered on 12/27/16 08:50; Admin Dose 5,000 UNIT; Start 12/17/16 at 21:00 Famotidine 20 mg 20 mg HS PO Last administered on 12/26/16 22:07; Admin Dose 20 MG; Start 12/17/16 at 21:00 Cefepime HCl (Maxipime 1gm/50 ml (Pmx)) 50 ml @ 100 mls/hr Q12 IVPB Last administered on 12/27/16 08:43; Admin Dose 100 MLS/HR; Start 12/19/16 at 21:00 Potassium Chloride (Potassium Chloride Pwd/Soln) 40 meq DAILY NGT Last administered on 12/27/16 08:43; Admin Dose 40 MEQ; Start 12/21/16 at 14:30 Guaifenesin (Robitussin Liquid Cup) 100 mg Q6H PRN PO COUGH Last administered on 12/24/16 13:02; Admin Dose 100 MG; Start 12/23/16 at 23:00 Furosemide (Lasix) 40 mg BID PO Last administered on 12/25/16 21:27; Admin Dose 40 MG; Start 12/25/16 at 21:00 Insulin Aspart (Novolog Insulin Pen) NOVOLOG *MILD* ALGORI... Q4 SC Last administered on 12/26/16 18:11; Admin Dose 2 UNIT; Start 12/25/16 at 17:00 Insulin Glargine (Lantus) 35 unit DAILY@20 SC ; Start 12/27/16 at 20:00 RHONDA PENA Dec 27, 2016 15:25
--- NOTE | 2016-12-27 16:40 | CONS ---
Date/Time of Note Date/Time of Note DATE: 12/27/16 TIME: 16:37 Assessment/Plan Assessment/Plan Chief Complaint/Hosp Course ID PROGRESS NOTE TOTAL ABX DAY # 8 => CEFEPIME S/P CANCIDAS 24H INTERVAL SUMMARY * Awake, no new issues, no complaints offered, no fevers, VSS, chart reviewed * Microbiology: Sputum culture on December 19 grew Klebsiella pneumonia and staph aureus EXAM * GEN: No fevers, VSS, NAD * HEENT: Unremarkable * Neck: (+)NGT, full ROM * CHEST: Equal chest rise bilaterally without dyspnea * CV: Pulse RRR * ABD: Soft, nontender * EXT: warm, dry ID ASSESSMENT 1. Resolving leukocytosis likely secondary to aspiration pneumonia * Sputum Cx: RESPIRATORY CULTURE Final Organism 1 K.PNEUMONIAE SSP PNEUMONIAE QUANTITY 2+ Organism 2 STAPHYLOCOCCUS AUREUS QUANTITY 3+ 2. Status post fungal UTI 3. Non-ST elevation PA/cardiomyopathy with ejection fraction 25% * sp PCI with CAD warranting CABG 4. Status post respiratory failure 5. Dysphasia=> possible ongoing aspiration, patient getting tube feedings through NG tube (-) MRSA Nares INVASIVES: * PICC, NGT, FC ABX ALLERGIES: KNDA = Suspect Iodine per "Fish containing products" CURRENT ABX: TOTAL ABX DAY # 8 => CEFEPIME S/P CANCIDAS ID Plan 1.Continue current ABX 2.Aspiration precautions 3. Cleared per ID for CABG next week as long as remains afebrile . Problems: Consultation Date/Type/Reason Admit Date/Time Dec 10, 2016 at 16:55 Initial Consult Date 12/12/16 Type of Consultation: ID Referring Provider: ROBEL PETTY MD Exam/Review of Systems Vital Signs Vitals Vital Signs Date Time Temp Pulse Resp B/P Pulse Ox O2 Delivery O2 Flow Rate FiO2 12/27/16 16:15 73 12/27/16 15:24 98.0 18 91/44 95 12/27/16 13:39 2.0 12/27/16 13:22 Nasal Cannula Intake and Output 12/26/16 12/26/16 12/27/16 15:00 23:00 07:00 Intake Total 630 ml Output Total 3 ml Balance 627 ml Results Result Diagram: 12/25/16 0704 12/24/16 0728 Results 24 hrs Laboratory Tests Test 12/26/16 18:02 12/26/16 22:04 12/27/16 03:02 12/27/16 06:37 Bedside Glucose 195 152 104 69 L Test 12/27/16 08:46 12/27/16 10:01 12/27/16 10:16 12/27/16 10:52 Bedside Glucose 79 67 L 59 L 171 Test 12/27/16 13:26 Bedside Glucose 123 Medications Medications Current Medications Aspirin (Halfprin) 81 mg DAILY PO Last administered on 12/27/16 08:43; Admin Dose 81 MG; Start 12/11/16 at 09:00 Atorvastatin Calcium (Lipitor) 20 mg HS PO Last administered on 12/26/16 21:00 ; Admin Dose 20 MG; Start 12/10/16 at 21:00 Duloxetine HCl (Cymbalta) 20 mg DAILY PO Last administered on 12/27/16 08:43; Admin Dose 20 MG; Start 12/11/16 at 09:00 Gabapentin (Neurontin) 300 mg TID PO Last administered on 12/27/16 13:28; Admin Dose 300 MG; Start 12/10/16 at 21:00 Metoprolol Tartrate (Lopressor) 12.5 mg BID PO Last administered on 12/25/16 21:28; Admin Dose 12.5 MG; Start 12/10/16 at 21:00 Ticagrelor (Brilinta) 90 mg BID PO Last administered on 12/27/16 08:49; Admin Dose 90 MG; Start 12/10/16 at 21:00 Levothyroxine Sodium (Synthroid) 112 mcg DAILY@06 PO Last administered on 06:55; Admin Dose 112 MCG; Start 12/11/16 at 06:00 Miscellaneous Information 1 ea NOTE XX ; Start 12/10/16 at 18:30 Glucose (Glutose) 15 gm Q15M PRN PO DECREASED GLUCOSE; Start 12/10/16 at 18:30 Glucose (Glutose) 22.5 gm Q15M PRN PO DECREASED GLUCOSE; Start 12/10/16 at 18: 30 Dextrose (D50w Syringe) 25 ml Q15M PRN IV DECREASED GLUCOSE Last administered on 12/27/16 10:23; Admin Dose 25 ML; Start 12/10/16 at 18:30 Dextrose (D50w Syringe) 50 ml Q15M PRN IV DECREASED GLUCOSE; Start 12/10/16 at 18:30 Glucagon (Glucagen) 1 mg Q15M PRN IM DECREASED GLUCOSE; Start 12/10/16 at 18:30 Glucose (Glutose) 15 gm Q15M PRN BUCCAL DECREASED GLUCOSE Last administered on 12/27/16 10:05; Admin Dose 15 GM; Start 12/10/16 at 18:30 Acetaminophen (Tylenol Liquid) 650 mg Q6H PRN NGT PAIN AND OR ELEVATED TEMP Last administered on 12/23/16 23:35; Admin Dose 650 MG; Start 12/10/16 at 21:00 Acetaminophen (Tylenol Tab) 650 mg Q4H PRN PO NON-CARDIAC PAIN LEVEL (1-3); Start 12/11/16 at 13:00 Morphine Sulfate (morphine) 2 mg Q2H PRN IV FOR NON CARDIAC PAIN (4-10) Last administered on 12/15/16 10:33; Admin Dose 2 MG; Start 12/11/16 at 13:00 Al Hydrox/Mg Hydrox/Simethicone (Mag-Al Plus) 30 ml Q4H PRN PO GASTROINTESTINAL UPSET; Start 12/11/16 at 13:00 Ondansetron HCl (Zofran Inj) 4 mg Q4H PRN IV NAUSEA AND/OR VOMITING; Start at 13:00 Senna/Docusate Sodium (Senokot-S) 2 tab HS NGT Last administered on 12/26/16 22:07; Admin Dose 2 TAB; Start 12/15/16 at 21:00 Lisinopril (Zestril) 2.5 mg DAILY PO Last administered on 12/23/16 09:38; Admin Dose 2.5 MG; Start 12/18/16 at 09:00 Heparin Sodium (Porcine) (Heparin (5000 Units/0.5 ml)) 5,000 unit BID SC Last administered on 12/27/16 08:50; Admin Dose 5,000 UNIT; Start 12/17/16 at 21:00 Famotidine 20 mg 20 mg HS PO Last administered on 12/26/16 22:07; Admin Dose 20 MG; Start 12/17/16 at 21:00 Cefepime HCl (Maxipime 1gm/50 ml (Pmx)) 50 ml @ 100 mls/hr Q12 IVPB Last administered on 12/27/16 08:43; Admin Dose 100 MLS/HR; Start 12/19/16 at 21:00 Potassium Chloride (Potassium Chloride Pwd/Soln) 40 meq DAILY NGT Last administered on 12/27/16 08:43; Admin Dose 40 MEQ; Start 12/21/16 at 14:30 Guaifenesin (Robitussin Liquid Cup) 100 mg Q6H PRN PO COUGH Last administered on 12/24/16 13:02; Admin Dose 100 MG; Start 12/23/16 at 23:00 Insulin Aspart (Novolog Insulin Pen) NOVOLOG *MILD* ALGORI... Q4 SC Last administered on 12/26/16 18:11; Admin Dose 2 UNIT; Start 12/25/16 at 17:00 Insulin Glargine (Lantus) 35 unit DAILY@20 SC ; Start 12/27/16 at 20:00 Furosemide (Lasix) 40 mg DAILY@06 PO ; Start 12/28/16 at 06:00 FRANKY URIBE NP Dec 27, 2016 16:40
[2016-12-27] MEDS: DEXTROSE 5%-0.45% NACL 1,000 ML IV SCH (17:43)
[2016-12-27] MEDS: POLYETHYLENE GLYCOL 17 GM PACKET NGT SCH (17:49)
[2016-12-27] MEDS: METOCLOPRAMIDE 10 MG INJ IV SCH (17:50)
[2016-12-27] MEDS ORDERED: INSULIN GLARGINE [LANtus] 3 ML PEN SC SCH (20:00)
[2016-12-27] MEDS: SENNA/DOCUSATE NA (8.6MG/50MG) TAB NGT SCH (21:52)
[2016-12-27] MEDS: ATORVASTATIN 20 MG TAB PO SCH (21:52)
[2016-12-27] MEDS: FAMOTIDINE 20 MG TAB PO SCH (22:04)
[2016-12-28] VITALS (14 sets, daily range): BP systolic 89–118; BP diastolic 39–57; PULSE 69–85; RESP 17–20
[2016-12-28] MEDS: METOCLOPRAMIDE 10 MG INJ IV SCH ×3 (00:49→13:11)
[2016-12-28] MEDS: INSULIN ASPART [NOVOLOG] 3 ML PEN SC SCH ×6 (00:49→21:00)
[2016-12-28] MEDS: ALBUTEROL/IPRATROPIUM (NEB) 3 ML AMP HHN SCH ×4 (01:41→20:38)
[2016-12-28] MEDS: LEVOTHYROXINE 112 MCG TAB PO SCH (06:07)
[2016-12-28] MEDS: FUROSEMIDE 40 MG TAB PO SCH (06:08)
[2016-12-28] MEDS: METOPROLOL 25 MG TAB PO SCH ×2 (09:00→21:00)
[2016-12-28] MEDS: LISINOPRIL 5 MG TAB PO SCH (09:00)
[2016-12-28] MEDS: CEFEPIME 1GM/50 ML (PMX) 50 ML IVPB SCH ×2 (09:56→21:39)
[2016-12-28] MEDS: POTASSIUM CHLORIDE 20 MEQ POWDER FOR ORAL SOLN NGT SCH (09:56)
[2016-12-28] MEDS: GABAPENTIN 300 MG CAP PO SCH ×3 (09:56→21:39)
[2016-12-28] MEDS: POLYETHYLENE GLYCOL 17 GM PACKET NGT SCH (09:56)
[2016-12-28] MEDS: ASPIRIN (EC) 81 MG TAB PO SCH (09:56)
[2016-12-28] MEDS: DULOXETINE 20 MG CAP DR PO SCH (09:56)
[2016-12-28] MEDS: TICAGRELOR 90 MG TABLET PO SCH ×2 (09:58→21:50)
[2016-12-28] MEDS: HEPARIN 5,000 UNIT/0.5 ML VIAL SC SCH ×2 (09:59→21:50)
[2016-12-28] MEDS: DEXTROSE 5%-0.45% NACL 1,000 ML IV SCH ×2 (10:40→21:39)
--- NOTE | 2016-12-28 13:01 | CONS ---
Date/Time of Note Date/Time of Note DATE: 12/28/16 TIME: 13:01 Consult Date/Type/Reason Admit Date/Time Dec 10, 2016 at 16:55 Initial Consult Date 12/12/16 Type of Consultation: Pulmonary Ordering Provider: ROBEL PETTY MD Subjective No events patient remains stable Objective Vital Signs Date Time Temp Pulse Resp B/P Pulse Ox O2 Delivery O2 Flow Rate FiO2 12/28/16 12:17 73 12/28/16 11:14 98.0 20 100/49 100 12/28/16 08:00 Nasal Cannula 2.0 Intake and Output 12/27/16 12/27/16 12/28/16 15:00 23:00 07:00 Intake Total 150 ml Balance 150 ml Exam Patient GENERAL: Patient comfortable at rest VITAL SIGNS: per chart NECK: Supple. No JVD or lymphadenopathy. CARDIAC EXAM: S1, S2. No added sounds or murmurs. CHEST: clear bilaterally, No added sounds, rales or wheezes ABDOMEN: Soft, nontender. No guarding or rebound. EXTREMITIES: No cyanosis, clubbing or edema. NEUROLOGIC: Generalized weakness. No focal deficits. Results/Medications Result Diagram: 12/25/16 0704 12/24/16 0728 Results 24 hrs Laboratory Tests Test 12/27/16 13:26 12/27/16 17:27 12/27/16 17:55 12/27/16 21:50 Bedside Glucose 123 55 L 112 122 Test 12/28/16 00:48 12/28/16 06:06 12/28/16 07:46 Bedside Glucose 111 120 109 Medications Current Medications Aspirin (Halfprin) 81 mg DAILY PO Last administered on 12/28/16 09:56; Admin Dose 81 MG; Start 12/11/16 at 09:00 Atorvastatin Calcium (Lipitor) 20 mg HS PO Last administered on 12/27/16 21:52 ; Admin Dose 20 MG; Start 12/10/16 at 21:00 Duloxetine HCl (Cymbalta) 20 mg DAILY PO Last administered on 12/28/16 09:56; Admin Dose 20 MG; Start 12/11/16 at 09:00 Gabapentin (Neurontin) 300 mg TID PO Last administered on 12/28/16 09:56; Admin Dose 300 MG; Start 12/10/16 at 21:00 Metoprolol Tartrate (Lopressor) 12.5 mg BID PO Last administered on 12/27/16 21:51; Admin Dose 12.5 MG; Start 12/10/16 at 21:00 Ticagrelor (Brilinta) 90 mg BID PO Last administered on 12/28/16 09:58; Admin Dose 90 MG; Start 12/10/16 at 21:00 Levothyroxine Sodium (Synthroid) 112 mcg DAILY@06 PO Last administered on 06:07; Admin Dose 112 MCG; Start 12/11/16 at 06:00 Miscellaneous Information 1 ea NOTE XX ; Start 12/10/16 at 18:30 Glucose (Glutose) 15 gm Q15M PRN PO DECREASED GLUCOSE; Start 12/10/16 at 18:30 Glucose (Glutose) 22.5 gm Q15M PRN PO DECREASED GLUCOSE; Start 12/10/16 at 18: 30 Dextrose (D50w Syringe) 25 ml Q15M PRN IV DECREASED GLUCOSE Last administered on 12/27/16 17:43; Admin Dose 25 ML; Start 12/10/16 at 18:30 Dextrose (D50w Syringe) 50 ml Q15M PRN IV DECREASED GLUCOSE; Start 12/10/16 at 18:30 Glucagon (Glucagen) 1 mg Q15M PRN IM DECREASED GLUCOSE; Start 12/10/16 at 18:30 Glucose (Glutose) 15 gm Q15M PRN BUCCAL DECREASED GLUCOSE Last administered on 12/27/16 10:05; Admin Dose 15 GM; Start 12/10/16 at 18:30 Acetaminophen (Tylenol Liquid) 650 mg Q6H PRN NGT PAIN AND OR ELEVATED TEMP Last administered on 12/23/16 23:35; Admin Dose 650 MG; Start 12/10/16 at 21:00 Acetaminophen (Tylenol Tab) 650 mg Q4H PRN PO NON-CARDIAC PAIN LEVEL (1-3); Start 12/11/16 at 13:00 Morphine Sulfate (morphine) 2 mg Q2H PRN IV FOR NON CARDIAC PAIN (4-10) Last administered on 12/15/16 10:33; Admin Dose 2 MG; Start 12/11/16 at 13:00 Al Hydrox/Mg Hydrox/Simethicone (Mag-Al Plus) 30 ml Q4H PRN PO GASTROINTESTINAL UPSET; Start 12/11/16 at 13:00 Ondansetron HCl (Zofran Inj) 4 mg Q4H PRN IV NAUSEA AND/OR VOMITING; Start at 13:00 Senna/Docusate Sodium (Senokot-S) 2 tab HS NGT Last administered on 12/27/16 21:52; Admin Dose 2 TAB; Start 12/15/16 at 21:00 Lisinopril (Zestril) 2.5 mg DAILY PO Last administered on 12/23/16 09:38; Admin Dose 2.5 MG; Start 12/18/16 at 09:00 Heparin Sodium (Porcine) (Heparin (5000 Units/0.5 ml)) 5,000 unit BID SC Last administered on 12/28/16 09:59; Admin Dose 5,000 UNIT; Start 12/17/16 at 21:00 Famotidine 20 mg 20 mg HS PO Last administered on 12/27/16 22:04; Admin Dose 20 MG; Start 12/17/16 at 21:00 Cefepime HCl (Maxipime 1gm/50 ml (Pmx)) 50 ml @ 100 mls/hr Q12 IVPB Last administered on 12/28/16 09:56; Admin Dose 100 MLS/HR; Start 12/19/16 at 21:00 Potassium Chloride (Potassium Chloride Pwd/Soln) 40 meq DAILY NGT Last administered on 12/28/16 09:56; Admin Dose 40 MEQ; Start 12/21/16 at 14:30 Guaifenesin (Robitussin Liquid Cup) 100 mg Q6H PRN PO COUGH Last administered on 12/24/16 13:02; Admin Dose 100 MG; Start 12/23/16 at 23:00 Insulin Aspart (Novolog Insulin Pen) NOVOLOG *MILD* ALGORI... Q4 SC Last administered on 12/26/16 18:11; Admin Dose 2 UNIT; Start 12/25/16 at 17:00 Insulin Glargine (Lantus) 35 unit DAILY@20 SC Last administered on 12/27/16 21 :59; Admin Dose 35 UNIT; Start 12/27/16 at 20:00 Furosemide (Lasix) 40 mg DAILY@06 PO Last administered on 12/28/16 06:08; Admin Dose 40 MG; Start 12/28/16 at 06:00 Polyethylene Glycol 17 gm 17 gm DAILY NGT Last administered on 12/28/16 09:56 ; Admin Dose 17 GM; Start 12/27/16 at 18:00 Dextrose/Sodium Chloride (D5-1/2ns) 1,000 ml @ 60 mls/hr [id number] IV Last administered on 12/27/16 17:43; Admin Dose 60 MLS/HR; Start 12/27/16 at 18:00 Assessment/Plan Chief Complaint/Hosp Course IMP: 1. s/p NSTEMI 2. Resp Failure--due to pulm edema now extubated on nasal cannula oxygen 3. AMS-resolved likely toxic metabolic encephalopathy 4. RLL pneumonia 5. Anemia 6. Dysphagia RECS: 1. Replete K+ and increase free H2O 2. Continue o2 3. Continue cefepime 4. TF/ Free H2O 5. Speech therapy plan is to advance diet. 6. Discussed with cardiac surgery will defer that cardiac surgery until the patient is more stable. Consider transfer to [facility] [place]. Problems: STEFANI GONZALES MD, [facility] Dec 28, 2016 13:01
--- NOTE | 2016-12-28 13:37 | CONS ---
Date/Time of Note Date/Time of Note DATE: 12/28/16 TIME: 13:34 Assessment/Plan Assessment/Plan Chief Complaint/Hosp Course IMP: 1.NSTEMI-peak trop>60 Now dowtrended significantly s/p LHC with patent RCA stents and high grade disease of LAD/LCX with small caliber vessels and recc for CABG 2.cardiomyopathy-LVEF 40-45 BY OSH echo. 25% by echo read here 3.Hypotension-improved off of pressors with some lability and holding of anti- hypertenives at times 4.resp failure s/p extubation requiring PRN BIPAP which has decreased in need/ frequency 5.anemia 6. AMS/encephalopathy 7. PNA 8. COPD 9. Hypothyroid Recc: -Tele -Follow BP closely and continue low dose BB/ACEI as tolerated only -Continue asa/brilinta -Continue statin -Follow volume status closely and continue lasix diuresis as tolerated now PO and I will decrease to daily -Smoking cessation -Follow BS closely -Continue abx's and f/u cx data -Continue bronchodilators -CT surgical eval ongoing and have discussed with daughter who is agreeable and CT surgery following with pnding date of surgery? Problems: Consultation Date/Type/Reason Admit Date/Time Dec 10, 2016 at 16:55 Initial Consult Date 12/12/16 Type of Consultation: cardiology Reason for Consultation Nstemi Referring Provider: ROBEL PETTY MD Exam/Review of Systems Vital Signs Vitals Vital Signs Date Time Temp Pulse Resp B/P Pulse Ox O2 Delivery O2 Flow Rate FiO2 12/28/16 12:17 73 12/28/16 11:14 98.0 20 100/49 100 12/28/16 08:00 Nasal Cannula 2.0 Intake and Output 12/27/16 12/27/16 12/28/16 15:00 23:00 07:00 Intake Total 150 ml Balance 150 ml Exam Review of Systems: CONSTITUTIONAL: No fevers, chills. PULMONARY: No sob CARDIOVASCULAR: No chest pain/palpitations GASTROINTESTINAL: No nausea/vomiting. GENITOURINARY: No hematuria/dysuria. MUSCULOSKELETAL: No myagias/arthalgias. PSYCHIATRIC: The patient denies depression. NEUROLOGIC: lethargic Constitutional: alert, oriented Psych: no complaints Head: normocephalic ENMT: mucosa pink and moist Neck: jvd (9 cm water), supple Respiratory: diminished breath sounds (at bases/B) Cardiovascular: regular rate and rhythm Gastrointestinal: non-tender, soft Musculoskeletal: muscle tone (normal) Extremities: edema (none) 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: lethargic Results Result Diagram: 12/25/16 0704 12/24/16 0728 Results 24 hrs Laboratory Tests Test 12/27/16 17:27 12/27/16 17:55 12/27/16 21:50 12/28/16 00:48 Bedside Glucose 55 L 112 122 111 Test 12/28/16 06:06 12/28/16 07:46 12/28/16 13:10 Bedside Glucose 120 109 127 Medications Medications Current Medications Aspirin (Halfprin) 81 mg DAILY PO Last administered on 12/28/16 09:56; Admin Dose 81 MG; Start 12/11/16 at 09:00 Atorvastatin Calcium (Lipitor) 20 mg HS PO Last administered on 12/27/16 21:52 ; Admin Dose 20 MG; Start 12/10/16 at 21:00 Duloxetine HCl (Cymbalta) 20 mg DAILY PO Last administered on 12/28/16 09:56; Admin Dose 20 MG; Start 12/11/16 at 09:00 Gabapentin (Neurontin) 300 mg TID PO Last administered on 12/28/16 13:11; Admin Dose 300 MG; Start 12/10/16 at 21:00 Metoprolol Tartrate (Lopressor) 12.5 mg BID PO Last administered on 12/27/16 21:51; Admin Dose 12.5 MG; Start 12/10/16 at 21:00 Ticagrelor (Brilinta) 90 mg BID PO Last administered on 12/28/16 09:58; Admin Dose 90 MG; Start 12/10/16 at 21:00 Levothyroxine Sodium (Synthroid) 112 mcg DAILY@06 PO Last administered on 06:07; Admin Dose 112 MCG; Start 12/11/16 at 06:00 Miscellaneous Information 1 ea NOTE XX ; Start 12/10/16 at 18:30 Glucose (Glutose) 15 gm Q15M PRN PO DECREASED GLUCOSE; Start 12/10/16 at 18:30 Glucose (Glutose) 22.5 gm Q15M PRN PO DECREASED GLUCOSE; Start 12/10/16 at 18: 30 Dextrose (D50w Syringe) 25 ml Q15M PRN IV DECREASED GLUCOSE Last administered on 12/27/16 17:43; Admin Dose 25 ML; Start 12/10/16 at 18:30 Dextrose (D50w Syringe) 50 ml Q15M PRN IV DECREASED GLUCOSE; Start 12/10/16 at 18:30 Glucagon (Glucagen) 1 mg Q15M PRN IM DECREASED GLUCOSE; Start 12/10/16 at 18:30 Glucose (Glutose) 15 gm Q15M PRN BUCCAL DECREASED GLUCOSE Last administered on 12/27/16 10:05; Admin Dose 15 GM; Start 12/10/16 at 18:30 Acetaminophen (Tylenol Liquid) 650 mg Q6H PRN NGT PAIN AND OR ELEVATED TEMP Last administered on 12/23/16 23:35; Admin Dose 650 MG; Start 12/10/16 at 21:00 Acetaminophen (Tylenol Tab) 650 mg Q4H PRN PO NON-CARDIAC PAIN LEVEL (1-3); Start 12/11/16 at 13:00 Morphine Sulfate (morphine) 2 mg Q2H PRN IV FOR NON CARDIAC PAIN (4-10) Last administered on 12/15/16 10:33; Admin Dose 2 MG; Start 12/11/16 at 13:00 Al Hydrox/Mg Hydrox/Simethicone (Mag-Al Plus) 30 ml Q4H PRN PO GASTROINTESTINAL UPSET; Start 12/11/16 at 13:00 Ondansetron HCl (Zofran Inj) 4 mg Q4H PRN IV NAUSEA AND/OR VOMITING; Start at 13:00 Senna/Docusate Sodium (Senokot-S) 2 tab HS NGT Last administered on 12/27/16 21:52; Admin Dose 2 TAB; Start 12/15/16 at 21:00 Lisinopril (Zestril) 2.5 mg DAILY PO Last administered on 12/23/16 09:38; Admin Dose 2.5 MG; Start 12/18/16 at 09:00 Heparin Sodium (Porcine) (Heparin (5000 Units/0.5 ml)) 5,000 unit BID SC Last administered on 12/28/16 09:59; Admin Dose 5,000 UNIT; Start 12/17/16 at 21:00 Famotidine 20 mg 20 mg HS PO Last administered on 12/27/16 22:04; Admin Dose 20 MG; Start 12/17/16 at 21:00 Cefepime HCl (Maxipime 1gm/50 ml (Pmx)) 50 ml @ 100 mls/hr Q12 IVPB Last administered on 12/28/16 09:56; Admin Dose 100 MLS/HR; Start 12/19/16 at 21:00 Potassium Chloride (Potassium Chloride Pwd/Soln) 40 meq DAILY NGT Last administered on 12/28/16 09:56; Admin Dose 40 MEQ; Start 12/21/16 at 14:30 Guaifenesin (Robitussin Liquid Cup) 100 mg Q6H PRN PO COUGH Last administered on 12/24/16 13:02; Admin Dose 100 MG; Start 12/23/16 at 23:00 Insulin Aspart (Novolog Insulin Pen) NOVOLOG *MILD* ALGORI... Q4 SC Last administered on 12/26/16 18:11; Admin Dose 2 UNIT; Start 12/25/16 at 17:00 Insulin Glargine (Lantus) 35 unit DAILY@20 SC Last administered on 12/27/16 21 :59; Admin Dose 35 UNIT; Start 12/27/16 at 20:00 Furosemide (Lasix) 40 mg DAILY@06 PO Last administered on 12/28/16 06:08; Admin Dose 40 MG; Start 12/28/16 at 06:00 Polyethylene Glycol 17 gm 17 gm DAILY NGT Last administered on 12/28/16 09:56 ; Admin Dose 17 GM; Start 12/27/16 at 18:00 Dextrose/Sodium Chloride (D5-1/2ns) 1,000 ml @ 60 mls/hr [id number] IV Last administered on 12/27/16 17:43; Admin Dose 60 MLS/HR; Start 12/27/16 at 18:00 RHONDA PENA Dec 28, 2016 13:36
--- NOTE | 2016-12-28 13:51 | PN ---
Date/Time of Note Date/Time of Note DATE: 12/28/16 TIME: 13:49 Assessment/Plan VTE Prophylaxis VTE Prophylaxis Intervention: SCD's Lines/Catheters IV Catheter Type (from Nrsg): Saline Lock Urinary Cath still in place: No Assessment/Plan Assessment/Plan 56 yo F with PMHx DM2 nonadherent to insulin, HTN, presented with DKA and NSTEMI. Pt is sp LHC with PCI but per cardiology also needs CABG. #elevated residuals from NG TFs -low threshold to obtain abd imaging if this persists today #NSTEMI sp PCI with CAD warranting CABG -cont DAPT, BP meds, statin -CT surgery following for CABG eval #ICM: EF 25% -cont med management #DM2: a1c 9s. Continue lantus and aspart decrease lantus from 40 units (DM LITA rec) down to 30 of note, once NGT removed and pt resumes eating normal meals will likely go back to home insulin regimen #aspiration pna, ?fungal cystitis: antimicrobials as per ID. #hypothyroid: cont home meds PT/OT/ARU evals for discharge planning placed 7.11 CT surg at this time advising sub acute rehab prior to CABG. CM aware. Subjective 24 Hr Interval Summary Free Text/Dictation NAD, per nursing occ high residuals from NG. TFs had to be held a few times. Pt with subsequent hypoglycemia. Has now been started on D5. Exam/Review of Systems Vital Signs Vitals Vital Signs Date Time Temp Pulse Resp B/P Pulse Ox O2 Delivery O2 Flow Rate FiO2 12/28/16 12:17 73 12/28/16 11:14 98.0 20 100/49 100 12/28/16 08:00 Nasal Cannula 2.0 Intake and Output 12/27/16 12/27/16 12/28/16 14:59 22:59 06:59 Intake Total 100 ml 50 ml Balance 100 ml 50 ml Exam nad, laying in bed. denies abd pain resp nonlabored abd soft no rashes no edema Results Result Diagram: 12/25/16 0704 12/24/16 0728 Results 24 hrs Laboratory Tests Test 12/27/16 17:27 12/27/16 17:55 12/27/16 21:50 12/28/16 00:48 Bedside Glucose 55 L 112 122 111 Test 12/28/16 06:06 12/28/16 07:46 12/28/16 13:10 Bedside Glucose 120 109 127 Medications Medications Current Medications Aspirin (Halfprin) 81 mg DAILY PO Last administered on 12/28/16 09:56; Admin Dose 81 MG; Start 12/11/16 at 09:00 Atorvastatin Calcium (Lipitor) 20 mg HS PO Last administered on 12/27/16 21:52 ; Admin Dose 20 MG; Start 12/10/16 at 21:00 Duloxetine HCl (Cymbalta) 20 mg DAILY PO Last administered on 12/28/16 09:56; Admin Dose 20 MG; Start 12/11/16 at 09:00 Gabapentin (Neurontin) 300 mg TID PO Last administered on 12/28/16 13:11; Admin Dose 300 MG; Start 12/10/16 at 21:00 Metoprolol Tartrate (Lopressor) 12.5 mg BID PO Last administered on 12/27/16 21:51; Admin Dose 12.5 MG; Start 12/10/16 at 21:00 Ticagrelor (Brilinta) 90 mg BID PO Last administered on 12/28/16 09:58; Admin Dose 90 MG; Start 12/10/16 at 21:00 Levothyroxine Sodium (Synthroid) 112 mcg DAILY@06 PO Last administered on 06:07; Admin Dose 112 MCG; Start 12/11/16 at 06:00 Miscellaneous Information 1 ea NOTE XX ; Start 12/10/16 at 18:30 Glucose (Glutose) 15 gm Q15M PRN PO DECREASED GLUCOSE; Start 12/10/16 at 18:30 Glucose (Glutose) 22.5 gm Q15M PRN PO DECREASED GLUCOSE; Start 12/10/16 at 18: 30 Dextrose (D50w Syringe) 25 ml Q15M PRN IV DECREASED GLUCOSE Last administered on 12/27/16 17:43; Admin Dose 25 ML; Start 12/10/16 at 18:30 Dextrose (D50w Syringe) 50 ml Q15M PRN IV DECREASED GLUCOSE; Start 12/10/16 at 18:30 Glucagon (Glucagen) 1 mg Q15M PRN IM DECREASED GLUCOSE; Start 12/10/16 at 18:30 Glucose (Glutose) 15 gm Q15M PRN BUCCAL DECREASED GLUCOSE Last administered on 12/27/16 10:05; Admin Dose 15 GM; Start 12/10/16 at 18:30 Acetaminophen (Tylenol Liquid) 650 mg Q6H PRN NGT PAIN AND OR ELEVATED TEMP Last administered on 12/23/16 23:35; Admin Dose 650 MG; Start 12/10/16 at 21:00 Acetaminophen (Tylenol Tab) 650 mg Q4H PRN PO NON-CARDIAC PAIN LEVEL (1-3); Start 12/11/16 at 13:00 Morphine Sulfate (morphine) 2 mg Q2H PRN IV FOR NON CARDIAC PAIN (4-10) Last administered on 12/15/16 10:33; Admin Dose 2 MG; Start 12/11/16 at 13:00 Al Hydrox/Mg Hydrox/Simethicone (Mag-Al Plus) 30 ml Q4H PRN PO GASTROINTESTINAL UPSET; Start 12/11/16 at 13:00 Ondansetron HCl (Zofran Inj) 4 mg Q4H PRN IV NAUSEA AND/OR VOMITING; Start at 13:00 Senna/Docusate Sodium (Senokot-S) 2 tab HS NGT Last administered on 12/27/16 21:52; Admin Dose 2 TAB; Start 12/15/16 at 21:00 Lisinopril (Zestril) 2.5 mg DAILY PO Last administered on 12/23/16 09:38; Admin Dose 2.5 MG; Start 12/18/16 at 09:00 Heparin Sodium (Porcine) (Heparin (5000 Units/0.5 ml)) 5,000 unit BID SC Last administered on 12/28/16 09:59; Admin Dose 5,000 UNIT; Start 12/17/16 at 21:00 Famotidine 20 mg 20 mg HS PO Last administered on 12/27/16 22:04; Admin Dose 20 MG; Start 12/17/16 at 21:00 Cefepime HCl (Maxipime 1gm/50 ml (Pmx)) 50 ml @ 100 mls/hr Q12 IVPB Last administered on 12/28/16 09:56; Admin Dose 100 MLS/HR; Start 12/19/16 at 21:00 Potassium Chloride (Potassium Chloride Pwd/Soln) 40 meq DAILY NGT Last administered on 12/28/16 09:56; Admin Dose 40 MEQ; Start 12/21/16 at 14:30 Guaifenesin (Robitussin Liquid Cup) 100 mg Q6H PRN PO COUGH Last administered on 12/24/16 13:02; Admin Dose 100 MG; Start 12/23/16 at 23:00 Insulin Aspart (Novolog Insulin Pen) NOVOLOG *MILD* ALGORI... Q4 SC Last administered on 12/26/16 18:11; Admin Dose 2 UNIT; Start 12/25/16 at 17:00 Insulin Glargine (Lantus) 35 unit DAILY@20 SC Last administered on 12/27/16 21 :59; Admin Dose 35 UNIT; Start 12/27/16 at 20:00 Furosemide (Lasix) 40 mg DAILY@06 PO Last administered on 12/28/16 06:08; Admin Dose 40 MG; Start 12/28/16 at 06:00 Polyethylene Glycol 17 gm 17 gm DAILY NGT Last administered on 12/28/16 09:56 ; Admin Dose 17 GM; Start 12/27/16 at 18:00 Dextrose/Sodium Chloride (D5-1/2ns) 1,000 ml @ 60 mls/hr [id number] IV Last administered on 12/27/16 17:43; Admin Dose 60 MLS/HR; Start 12/27/16 at 18:00 ROBEL PETTY MD Dec 28, 2016 13:51
--- NOTE | 2016-12-28 14:26 | CONS ---
Date/Time of Note Date/Time of Note DATE: 12/28/16 TIME: 14:22 Assessment/Plan Assessment/Plan Chief Complaint/Hosp Course Assessment/Plan Chief Complaint/Hosp Course ID PROGRESS NOTE TOTAL ABX DAY # 8 => CEFEPIME S/P CANCIDAS 24H INTERVAL SUMMARY * Awake. Denies Pain. No Acute Distress. * Microbiology: Sputum culture on December 19 grew Klebsiella pneumonia and staph aureus EXAM * GEN: No fevers, VSS, NAD * HEENT: Unremarkable * Neck: (+)NGT, full ROM * CHEST: Equal chest rise bilaterally without dyspnea * CV: Pulse RRR * ABD: Soft, nontender * EXT: warm, dry ID ASSESSMENT 1. Resolving leukocytosis likely secondary to aspiration pneumonia * Sputum Cx: RESPIRATORY CULTURE Final Organism 1 K.PNEUMONIAE SSP PNEUMONIAE QUANTITY 2+ Organism 2 STAPHYLOCOCCUS AUREUS QUANTITY 3+ 2. Status post fungal UTI 3. Non-ST elevation UT/cardiomyopathy with ejection fraction 25% * sp PCI with CAD warranting CABG 4. Status post respiratory failure 5. Dysphasia=> possible ongoing aspiration, patient getting tube feedings through NG tube (-) MRSA Nares INVASIVES: * PICC, NGT, FC ABX ALLERGIES: KNDA = Suspect Iodine per "Fish containing products" CURRENT ABX: TOTAL ABX DAY # 8 => CEFEPIME S/P CANCIDAS ID Plan 1.Continue current ABX. 2.Aspiration Precautions. 3. Cleared per ID for CABG next week as long as remains afebrile. 4. GI Prophylaxis. DVT Prophylaxis. 5. Monitor Labs. Problems: Consultation Date/Type/Reason Admit Date/Time Dec 10, 2016 at 16:55 Initial Consult Date 12/12/16 Type of Consultation: id Referring Provider: ROBEL PETTY MD Exam/Review of Systems Vital Signs Vitals Vital Signs Date Time Temp Pulse Resp B/P Pulse Ox O2 Delivery O2 Flow Rate FiO2 12/28/16 13:49 86 18 98 Nasal Cannula 2.0 12/28/16 11:14 98.0 100/49 Intake and Output 12/27/16 12/27/16 12/28/16 15:00 23:00 07:00 Intake Total 150 ml Balance 150 ml Results Result Diagram: 12/25/16 0704 12/24/16 0728 Results 24 hrs Laboratory Tests Test 12/27/16 17:27 12/27/16 17:55 12/27/16 21:50 12/28/16 00:48 Bedside Glucose 55 L 112 122 111 Test 12/28/16 06:06 12/28/16 07:46 12/28/16 13:10 Bedside Glucose 120 109 127 Medications Medications Current Medications Aspirin (Halfprin) 81 mg DAILY PO Last administered on 12/28/16 09:56; Admin Dose 81 MG; Start 12/11/16 at 09:00 Atorvastatin Calcium (Lipitor) 20 mg HS PO Last administered on 12/27/16 21:52 ; Admin Dose 20 MG; Start 12/10/16 at 21:00 Duloxetine HCl (Cymbalta) 20 mg DAILY PO Last administered on 12/28/16 09:56; Admin Dose 20 MG; Start 12/11/16 at 09:00 Gabapentin (Neurontin) 300 mg TID PO Last administered on 12/28/16 13:11; Admin Dose 300 MG; Start 12/10/16 at 21:00 Metoprolol Tartrate (Lopressor) 12.5 mg BID PO Last administered on 12/27/16 21:51; Admin Dose 12.5 MG; Start 12/10/16 at 21:00 Ticagrelor (Brilinta) 90 mg BID PO Last administered on 12/28/16 09:58; Admin Dose 90 MG; Start 12/10/16 at 21:00 Levothyroxine Sodium (Synthroid) 112 mcg DAILY@06 PO Last administered on 06:07; Admin Dose 112 MCG; Start 12/11/16 at 06:00 Miscellaneous Information 1 ea NOTE XX ; Start 12/10/16 at 18:30 Glucose (Glutose) 15 gm Q15M PRN PO DECREASED GLUCOSE; Start 12/10/16 at 18:30 Glucose (Glutose) 22.5 gm Q15M PRN PO DECREASED GLUCOSE; Start 12/10/16 at 18: 30 Dextrose (D50w Syringe) 25 ml Q15M PRN IV DECREASED GLUCOSE Last administered on 12/27/16 17:43; Admin Dose 25 ML; Start 12/10/16 at 18:30 Dextrose (D50w Syringe) 50 ml Q15M PRN IV DECREASED GLUCOSE; Start 12/10/16 at 18:30 Glucagon (Glucagen) 1 mg Q15M PRN IM DECREASED GLUCOSE; Start 12/10/16 at 18:30 Glucose (Glutose) 15 gm Q15M PRN BUCCAL DECREASED GLUCOSE Last administered on 12/27/16 10:05; Admin Dose 15 GM; Start 12/10/16 at 18:30 Acetaminophen (Tylenol Liquid) 650 mg Q6H PRN NGT PAIN AND OR ELEVATED TEMP Last administered on 12/23/16 23:35; Admin Dose 650 MG; Start 12/10/16 at 21:00 Acetaminophen (Tylenol Tab) 650 mg Q4H PRN PO NON-CARDIAC PAIN LEVEL (1-3); Start 12/11/16 at 13:00 Morphine Sulfate (morphine) 2 mg Q2H PRN IV FOR NON CARDIAC PAIN (4-10) Last administered on 12/15/16 10:33; Admin Dose 2 MG; Start 12/11/16 at 13:00 Al Hydrox/Mg Hydrox/Simethicone (Mag-Al Plus) 30 ml Q4H PRN PO GASTROINTESTINAL UPSET; Start 12/11/16 at 13:00 Ondansetron HCl (Zofran Inj) 4 mg Q4H PRN IV NAUSEA AND/OR VOMITING; Start at 13:00 Senna/Docusate Sodium (Senokot-S) 2 tab HS NGT Last administered on 12/27/16 21:52; Admin Dose 2 TAB; Start 12/15/16 at 21:00 Lisinopril (Zestril) 2.5 mg DAILY PO Last administered on 12/23/16 09:38; Admin Dose 2.5 MG; Start 12/18/16 at 09:00 Heparin Sodium (Porcine) (Heparin (5000 Units/0.5 ml)) 5,000 unit BID SC Last administered on 12/28/16 09:59; Admin Dose 5,000 UNIT; Start 12/17/16 at 21:00 Famotidine 20 mg 20 mg HS PO Last administered on 12/27/16 22:04; Admin Dose 20 MG; Start 12/17/16 at 21:00 Cefepime HCl (Maxipime 1gm/50 ml (Pmx)) 50 ml @ 100 mls/hr Q12 IVPB Last administered on 12/28/16 09:56; Admin Dose 100 MLS/HR; Start 12/19/16 at 21:00 Potassium Chloride (Potassium Chloride Pwd/Soln) 40 meq DAILY NGT Last administered on 12/28/16 09:56; Admin Dose 40 MEQ; Start 12/21/16 at 14:30 Guaifenesin (Robitussin Liquid Cup) 100 mg Q6H PRN PO COUGH Last administered on 12/24/16 13:02; Admin Dose 100 MG; Start 12/23/16 at 23:00 Insulin Aspart (Novolog Insulin Pen) NOVOLOG *MILD* ALGORI... Q4 SC Last administered on 12/26/16 18:11; Admin Dose 2 UNIT; Start 12/25/16 at 17:00 Furosemide (Lasix) 40 mg DAILY@06 PO Last administered on 12/28/16 06:08; Admin Dose 40 MG; Start 12/28/16 at 06:00 Polyethylene Glycol 17 gm 17 gm DAILY NGT Last administered on 12/28/16 09:56 ; Admin Dose 17 GM; Start 12/27/16 at 18:00 Dextrose/Sodium Chloride (D5-1/2ns) 1,000 ml @ 60 mls/hr [id number] IV Last administered on 12/27/16 17:43; Admin Dose 60 MLS/HR; Start 12/27/16 at 18:00 Insulin Glargine (Lantus) 30 unit DAILY@20 SC ; Start 12/28/16 at 20:00 RAJI HENSON NP Dec 28, 2016 14:25
--- NOTE | 2016-12-28 14:57 | PN ---
Date/Time of Note Date/Time of Note DATE: 12/28/16 TIME: 14:57 Assessment/Plan Lines/Catheters IV Catheter Type (from Nrsg): Saline Lock M[place]ray in Place (from Nrsg): No Assessment/Plan Chief Complaint/Hosp Course CAD, status post non-ST elevation NM History of lice Cardiomyopathy with ejection fraction 25% Respiratory failure Patient is not a candidate to undergo coronary artery bypass grafting at this time Still on BIPAP FiO2 of 40% Would continue medical management Diuretics Plan for possible coronary artery bypass grafting when medically more stable Will discuss with the family Problems: Subjective 24 Hr Interval Summary Constitutional: improved Pain Control: mild Exam/Review of Systems Vital Signs Vitals Vital Signs Date Time Temp Pulse Resp B/P Pulse Ox O2 Delivery O2 Flow Rate FiO2 12/28/16 13:49 86 18 98 Nasal Cannula 2.0 12/28/16 11:14 98.0 100/49 Intake and Output 12/27/16 12/27/16 12/28/16 15:00 23:00 07:00 Intake Total 150 ml Balance 150 ml Exam Neck: non-tender, supple Respiratory: clear to auscultation, normal air movement Cardiovascular: nl pulses, regular rate and rhythm Gastrointestinal: nl liver, spleen, non-tender, soft Results Result Diagram: 12/25/16 0704 12/24/16 0728 CHELA ALVARENGA MD Dec 28, 2016 14:57
[2016-12-28] MEDS: FAMOTIDINE 20 MG TAB PO SCH (21:39)
[2016-12-28] MEDS: SENNA/DOCUSATE NA (8.6MG/50MG) TAB NGT SCH (21:40)
[2016-12-28] MEDS: ATORVASTATIN 20 MG TAB PO SCH (21:40)
[2016-12-28] MEDS: INSULIN GLARGINE [LANtus] 3 ML PEN SC SCH (21:49)
[2016-12-29] VITALS (12 sets, daily range): BP systolic 91–102; BP diastolic 46–56; PULSE 72–79; RESP 17–19
[2016-12-29] MEDS: INSULIN ASPART [NOVOLOG] 3 ML PEN SC SCH ×7 (00:58→22:40)
[2016-12-29] MEDS: ALBUTEROL/IPRATROPIUM (NEB) 3 ML AMP HHN SCH ×4 (01:59→21:10)
[2016-12-29] MEDS: FUROSEMIDE 40 MG TAB PO SCH (06:29)
[2016-12-29] MEDS: LEVOTHYROXINE 112 MCG TAB PO SCH (06:29)
[2016-12-29 08:08] LABS: ADD SCAN DIFF NO
[2016-12-29 08:16] LABS: BASOPHIL # 0.1 10^3/ul (0.0-0.1); BASOPHILS % 1.2 % (0.0-2.0); EOSINOPHILS # 0.5 10^3/ul (0.0-0.5); EOSINOPHILS % 5.8 % (0.0-7.0); HEMATOCRIT 33.7 % (37.0-47.0); HEMOGLOBIN 10.6 g/dl (12.0-16.0); LYMPHOCYTES # 1.4 10^3/ul (0.8-2.9); LYMPHOCYTES % 14.9 % (15.0-51.0); MEAN CORPUSCULAR HEMOGLOBIN 29.7 pg (29.0-33.0); MEAN CORPUSCULAR HGB CONC 31.5 g/dl (32.0-37.0); MEAN CORPUSCULAR VOLUME 94.4 fl (82.0-101.0); MEAN PLATELET VOLUME 10.5 fl (7.4-10.4); MONOCYTE # 0.6 10^3/ul (0.3-0.9); MONOCYTES % 6.9 % (0.0-11.0); NEUTROPHIL # 6.2 10^3/ul (1.6-7.5); NEUTROPHILS % 68.6 % (39.0-77.0); PLATELET COUNT 415 10^3/UL (140-415); RED BLOOD COUNT 3.57 10^6/ul (4.20-5.40); RED CELL DISTRIBUTION WIDTH 13.6 % (11.5-14.5); WHITE BLOOD COUNT 9.1 10^3/ul (4.8-10.8)
[2016-12-29] MEDS: ASPIRIN (EC) 81 MG TAB PO SCH (08:20)
[2016-12-29] MEDS: POTASSIUM CHLORIDE 20 MEQ POWDER FOR ORAL SOLN NGT SCH (08:20)
[2016-12-29] MEDS: DULOXETINE 20 MG CAP DR PO SCH (08:20)
[2016-12-29] MEDS: POLYETHYLENE GLYCOL 17 GM PACKET NGT SCH ×2 (08:20→08:31)
[2016-12-29] MEDS: CEFEPIME 1GM/50 ML (PMX) 50 ML IVPB SCH ×2 (08:20→22:07)
[2016-12-29] MEDS: GABAPENTIN 300 MG CAP PO SCH ×3 (08:20→22:09)
[2016-12-29] MEDS: TICAGRELOR 90 MG TABLET PO SCH ×2 (08:22→22:10)
[2016-12-29] MEDS: HEPARIN 5,000 UNIT/0.5 ML VIAL SC SCH ×2 (08:23→22:13)
[2016-12-29] MEDS: METOPROLOL 25 MG TAB PO SCH ×2 (08:24→21:00)
[2016-12-29] MEDS: LISINOPRIL 5 MG TAB PO SCH (08:24)
[2016-12-29 08:49] LABS: CALCIUM 9.1 mg/dl (8.4-10.2); CREATININE 0.49 mg/dl (0.44-1.00); MAGNESIUM 1.7 mg/dl (1.7-2.5); POTASSIUM 4.7 mmol/L (3.5-5.1)
--- NOTE | 2016-12-29 11:51 | CONS ---
Date/Time of Note Date/Time of Note DATE: 12/29/16 TIME: 11:48 Assessment/Plan Assessment/Plan Chief Complaint/Hosp Course IMP: 1.NSTEMI-peak trop>60 Now dowtrended significantly s/p LHC with patent RCA stents and high grade disease of LAD/LCX with small caliber vessels and recc for CABG 2.cardiomyopathy-LVEF 40-45 BY OSH echo. 25% by echo read here 3.Hypotension-improved off of pressors with some lability and holding of anti- hypertenives at times 4.resp failure s/p extubation requiring PRN BIPAP which has decreased in need/ frequency 5.anemia 6. AMS/encephalopathy 7. PNA 8. COPD 9. Hypothyroid Recc: -Tele -Follow BP closely and continue low dose BB/ACEI as tolerated only -Continue asa/brilinta -Continue statin -Follow volume status closely and continue lasix diuresis currently PO daily/ check cxr -Smoking cessation -Follow BS closely -Continue abx's and f/u cx data -Continue bronchodilators -CT surgical eval ongoing and have discussed with daughter who is agreeable and CT surgery following with pnding date of surgery? Problems: Consultation Date/Type/Reason Admit Date/Time Dec 10, 2016 at 16:55 Initial Consult Date 12/12/16 Type of Consultation: cardiology Reason for Consultation Nstemi Referring Provider: ROBEL PETTY MD Exam/Review of Systems Vital Signs Vitals Vital Signs Date Time Temp Pulse Resp B/P Pulse Ox O2 Delivery O2 Flow Rate FiO2 12/29/16 11:03 97.8 70 18 96/56 99 12/29/16 08:22 2.0 12/29/16 08:00 Nasal Cannula 12/29/16 02:02 21 Intake and Output 12/28/16 12/28/16 12/29/16 15:00 23:00 07:00 Intake Total 100 ml 970 ml Output Total 400 ml 500 ml Balance -400 ml 100 ml 470 ml Exam Review of Systems: CONSTITUTIONAL: No fevers, chills. PULMONARY: Mild sob CARDIOVASCULAR: No chest pain/palpitations GASTROINTESTINAL: No nausea/vomiting. GENITOURINARY: No hematuria/dysuria. MUSCULOSKELETAL: No myagias/arthalgias. PSYCHIATRIC: The patient denies depression. NEUROLOGIC: lethargic Constitutional: alert Psych: no complaints Head: normocephalic ENMT: mucosa pink and moist Neck: jvd (9 cm water), supple Respiratory: diminished breath sounds (at bases/B) Cardiovascular: regular rate and rhythm Gastrointestinal: non-tender, soft Musculoskeletal: muscle tone (normal) Extremities: edema (none) 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: lethargic, other (No focal deficits) Results Result Diagram: 12/29/16 0559 12/29/16 0705 Results 24 hrs Laboratory Tests Test 12/28/16 13:10 12/28/16 17:08 12/28/16 21:37 12/29/16 00:57 Bedside Glucose 127 143 100 115 Test 12/29/16 05:59 12/29/16 06:27 12/29/16 07:05 12/29/16 08:13 White Blood Count 9.1 # Red Blood Count 3.57 L Hemoglobin 10.6 L Hematocrit 33.7 L Mean Corpuscular Volume 94.4 Mean Corpuscular Hemoglobin 29.7 Mean Corpuscular Hemoglobin Concent 31.5 L Red Cell Distribution Width 13.6 Platelet Count 415 # Mean Platelet Volume 10.5 H Neutrophils % 68.6 Lymphocytes % 14.9 L Monocytes % 6.9 Eosinophils % 5.8 Basophils % 1.2 Nucleated Red Blood Cells % 0.0 Neutrophils # 6.2 Lymphocytes # 1.4 Monocytes # 0.6 Eosinophils # 0.5 Basophils # 0.1 Nucleated Red Blood Cells # 0.0 Bedside Glucose 180 191 Sodium Level 137 Potassium Level 4.7 Chloride Level 96 L Carbon Dioxide Level 31 Anion Gap 15 Blood Urea Nitrogen 5 L Creatinine 0.49 Glucose Level 176 Calcium Level 9.1 Phosphorus Level 3.0 Magnesium Level 1.7 Medications Medications Current Medications Aspirin (Halfprin) 81 mg DAILY PO Last administered on 12/29/16 08:20; Admin Dose 81 MG; Start 12/11/16 at 09:00 Atorvastatin Calcium (Lipitor) 20 mg HS PO Last administered on 12/28/16 21:40 ; Admin Dose 20 MG; Start 12/10/16 at 21:00 Duloxetine HCl (Cymbalta) 20 mg DAILY PO Last administered on 12/29/16 08:20; Admin Dose 20 MG; Start 12/11/16 at 09:00 Gabapentin (Neurontin) 300 mg TID PO Last administered on 12/29/16 08:20; Admin Dose 300 MG; Start 12/10/16 at 21:00 Metoprolol Tartrate (Lopressor) 12.5 mg BID PO Last administered on 12/27/16 21:51; Admin Dose 12.5 MG; Start 12/10/16 at 21:00 Ticagrelor (Brilinta) 90 mg BID PO Last administered on 12/29/16 08:22; Admin Dose 90 MG; Start 12/10/16 at 21:00 Levothyroxine Sodium (Synthroid) 112 mcg DAILY@06 PO Last administered on 06:29; Admin Dose 112 MCG; Start 12/11/16 at 06:00 Miscellaneous Information 1 ea NOTE XX ; Start 12/10/16 at 18:30 Glucose (Glutose) 15 gm Q15M PRN PO DECREASED GLUCOSE; Start 12/10/16 at 18:30 Glucose (Glutose) 22.5 gm Q15M PRN PO DECREASED GLUCOSE; Start 12/10/16 at 18: 30 Dextrose (D50w Syringe) 25 ml Q15M PRN IV DECREASED GLUCOSE Last administered on 12/27/16 17:43; Admin Dose 25 ML; Start 12/10/16 at 18:30 Dextrose (D50w Syringe) 50 ml Q15M PRN IV DECREASED GLUCOSE; Start 12/10/16 at 18:30 Glucagon (Glucagen) 1 mg Q15M PRN IM DECREASED GLUCOSE; Start 12/10/16 at 18:30 Glucose (Glutose) 15 gm Q15M PRN BUCCAL DECREASED GLUCOSE Last administered on 12/27/16 10:05; Admin Dose 15 GM; Start 12/10/16 at 18:30 Acetaminophen (Tylenol Liquid) 650 mg Q6H PRN NGT PAIN AND OR ELEVATED TEMP Last administered on 12/23/16 23:35; Admin Dose 650 MG; Start 12/10/16 at 21:00 Acetaminophen (Tylenol Tab) 650 mg Q4H PRN PO NON-CARDIAC PAIN LEVEL (1-3); Start 12/11/16 at 13:00 Morphine Sulfate (morphine) 2 mg Q2H PRN IV FOR NON CARDIAC PAIN (4-10) Last administered on 12/15/16 10:33; Admin Dose 2 MG; Start 12/11/16 at 13:00 Al Hydrox/Mg Hydrox/Simethicone (Mag-Al Plus) 30 ml Q4H PRN PO GASTROINTESTINAL UPSET; Start 12/11/16 at 13:00 Ondansetron HCl (Zofran Inj) 4 mg Q4H PRN IV NAUSEA AND/OR VOMITING; Start at 13:00 Senna/Docusate Sodium (Senokot-S) 2 tab HS NGT Last administered on 12/28/16 21:40; Admin Dose 2 TAB; Start 12/15/16 at 21:00 Lisinopril (Zestril) 2.5 mg DAILY PO Last administered on 12/23/16 09:38; Admin Dose 2.5 MG; Start 12/18/16 at 09:00 Heparin Sodium (Porcine) (Heparin (5000 Units/0.5 ml)) 5,000 unit BID SC Last administered on 12/29/16 08:23; Admin Dose 5,000 UNIT; Start 12/17/16 at 21:00 Famotidine 20 mg 20 mg HS PO Last administered on 12/28/16 21:39; Admin Dose 20 MG; Start 12/17/16 at 21:00 Cefepime HCl (Maxipime 1gm/50 ml (Pmx)) 50 ml @ 100 mls/hr Q12 IVPB Last administered on 12/29/16 08:20; Admin Dose 100 MLS/HR; Start 12/19/16 at 21:00 Potassium Chloride (Potassium Chloride Pwd/Soln) 40 meq DAILY NGT Last administered on 12/29/16 08:20; Admin Dose 40 MEQ; Start 12/21/16 at 14:30 Guaifenesin (Robitussin Liquid Cup) 100 mg Q6H PRN PO COUGH Last administered on 12/24/16 13:02; Admin Dose 100 MG; Start 12/23/16 at 23:00 Insulin Aspart (Novolog Insulin Pen) NOVOLOG *MILD* ALGORI... Q4 SC Last administered on 12/29/16 08:24; Admin Dose 2 UNIT; Start 12/25/16 at 17:00 Furosemide (Lasix) 40 mg DAILY@06 PO Last administered on 12/29/16 06:29; Admin Dose 40 MG; Start 12/28/16 at 06:00 Polyethylene Glycol 17 gm 17 gm DAILY NGT Last administered on 12/28/16 09:56 ; Admin Dose 17 GM; Start 12/27/16 at 18:00 Dextrose/Sodium Chloride (D5-1/2ns) 1,000 ml @ 60 mls/hr [id number] IV Last administered on 12/28/16 21:39; Admin Dose 60 MLS/HR; Start 12/27/16 at 18:00 Insulin Glargine (Lantus) 30 unit DAILY@20 SC Last administered on 12/28/16 21 :49; Admin Dose 30 UNIT; Start 12/28/16 at 20:00 RHONDA PENA Dec 29, 2016 11:51
--- NOTE | 2016-12-29 13:41 | CONS ---
Date/Time of Note Date/Time of Note DATE: 12/29/16 TIME: 13:39 Assessment/Plan Assessment/Plan Chief Complaint/Hosp Course Alert, tolerates tube feeding, looks comfortable, denies pain discomfort Temperature 97.8 pulse 70 respirations 18 blood pressure 96/56 saturation 99 on 2 L WBC 9.1 H&H 10.6 and 33.7 platelets 450 neutrophils 68.5 BN 5 creatinine 0.49 Indwelling's NG tube, Mccray catheter, right upper extremity PICC line Antibiotics: Cefepime Physical examination: Well-developed, older looking 56-year-old woman who is awake in no distress. Head atraumatic normocephalic sclera nonicteric, mucosa pink dry neck is supple chest rise symmetrical breath sounds clear, diminished basis. Heart S1-S2. Abdomen soft bowel tones present. Extremities without cyanosis. Assessment: 1. Resolving pneumonia 2. Status post fungal UTI 3. Non-ST elevation PA/cardiomyopathy with ejection fraction 25% 4. Status post respiratory failure 5. Dysphasia==> possible ongoing aspiration, patient getting tube feedings through NG tube 6. Head lies status post treatment Plan: Remain stable, wbc decreasing, continue antibiotics for couple more days, continue anti-aspiration measures. Possible CABG once medically stable [facility] staff Problems: Consultation Date/Type/Reason Admit Date/Time Dec 10, 2016 at 16:55 Initial Consult Date 12/12/16 Type of Consultation: ID Referring Provider: ROBEL PETTY MD Exam/Review of Systems Vital Signs Vitals Vital Signs Date Time Temp Pulse Resp B/P Pulse Ox O2 Delivery O2 Flow Rate FiO2 12/29/16 12:16 74 12/29/16 11:03 97.8 18 96/56 99 12/29/16 08:22 2.0 12/29/16 08:00 Nasal Cannula 12/29/16 02:02 21 Intake and Output 12/28/16 12/28/16 12/29/16 15:00 23:00 07:00 Intake Total 100 ml 970 ml Output Total 400 ml 500 ml Balance -400 ml 100 ml 470 ml Results Result Diagram: 12/29/16 0559 12/29/16 0705 Results 24 hrs Laboratory Tests Test 12/28/16 17:08 12/28/16 21:37 12/29/16 00:57 12/29/16 05:59 Bedside Glucose 143 100 115 White Blood Count 9.1 # Red Blood Count 3.57 L Hemoglobin 10.6 L Hematocrit 33.7 L Mean Corpuscular Volume 94.4 Mean Corpuscular Hemoglobin 29.7 Mean Corpuscular Hemoglobin Concent 31.5 L Red Cell Distribution Width 13.6 Platelet Count 415 # Mean Platelet Volume 10.5 H Neutrophils % 68.6 Lymphocytes % 14.9 L Monocytes % 6.9 Eosinophils % 5.8 Basophils % 1.2 Nucleated Red Blood Cells % 0.0 Neutrophils # 6.2 Lymphocytes # 1.4 Monocytes # 0.6 Eosinophils # 0.5 Basophils # 0.1 Nucleated Red Blood Cells # 0.0 Test 12/29/16 06:27 12/29/16 07:05 12/29/16 08:13 12/29/16 12:44 Bedside Glucose 180 191 271 H Sodium Level 137 Potassium Level 4.7 Chloride Level 96 L Carbon Dioxide Level 31 Anion Gap 15 Blood Urea Nitrogen 5 L Creatinine 0.49 Glucose Level 176 Calcium Level 9.1 Phosphorus Level 3.0 Magnesium Level 1.7 Medications Medications Current Medications Aspirin (Halfprin) 81 mg DAILY PO Last administered on 12/29/16 08:20; Admin Dose 81 MG; Start 12/11/16 at 09:00 Atorvastatin Calcium (Lipitor) 20 mg HS PO Last administered on 12/28/16 21:40 ; Admin Dose 20 MG; Start 12/10/16 at 21:00 Duloxetine HCl (Cymbalta) 20 mg DAILY PO Last administered on 12/29/16 08:20; Admin Dose 20 MG; Start 12/11/16 at 09:00 Gabapentin (Neurontin) 300 mg TID PO Last administered on 12/29/16 12:45; Admin Dose 300 MG; Start 12/10/16 at 21:00 Metoprolol Tartrate (Lopressor) 12.5 mg BID PO Last administered on 12/27/16 21:51; Admin Dose 12.5 MG; Start 12/10/16 at 21:00 Ticagrelor (Brilinta) 90 mg BID PO Last administered on 12/29/16 08:22; Admin Dose 90 MG; Start 12/10/16 at 21:00 Levothyroxine Sodium (Synthroid) 112 mcg DAILY@06 PO Last administered on 06:29; Admin Dose 112 MCG; Start 12/11/16 at 06:00 Miscellaneous Information 1 ea NOTE XX ; Start 12/10/16 at 18:30 Glucose (Glutose) 15 gm Q15M PRN PO DECREASED GLUCOSE; Start 12/10/16 at 18:30 Glucose (Glutose) 22.5 gm Q15M PRN PO DECREASED GLUCOSE; Start 12/10/16 at 18: 30 Dextrose (D50w Syringe) 25 ml Q15M PRN IV DECREASED GLUCOSE Last administered on 12/27/16 17:43; Admin Dose 25 ML; Start 12/10/16 at 18:30 Dextrose (D50w Syringe) 50 ml Q15M PRN IV DECREASED GLUCOSE; Start 12/10/16 at 18:30 Glucagon (Glucagen) 1 mg Q15M PRN IM DECREASED GLUCOSE; Start 12/10/16 at 18:30 Glucose (Glutose) 15 gm Q15M PRN BUCCAL DECREASED GLUCOSE Last administered on 12/27/16 10:05; Admin Dose 15 GM; Start 12/10/16 at 18:30 Acetaminophen (Tylenol Liquid) 650 mg Q6H PRN NGT PAIN AND OR ELEVATED TEMP Last administered on 12/23/16 23:35; Admin Dose 650 MG; Start 12/10/16 at 21:00 Acetaminophen (Tylenol Tab) 650 mg Q4H PRN PO NON-CARDIAC PAIN LEVEL (1-3); Start 12/11/16 at 13:00 Morphine Sulfate (morphine) 2 mg Q2H PRN IV FOR NON CARDIAC PAIN (4-10) Last administered on 12/15/16 10:33; Admin Dose 2 MG; Start 12/11/16 at 13:00 Al Hydrox/Mg Hydrox/Simethicone (Mag-Al Plus) 30 ml Q4H PRN PO GASTROINTESTINAL UPSET; Start 12/11/16 at 13:00 Ondansetron HCl (Zofran Inj) 4 mg Q4H PRN IV NAUSEA AND/OR VOMITING; Start at 13:00 Senna/Docusate Sodium (Senokot-S) 2 tab HS NGT Last administered on 12/28/16 21:40; Admin Dose 2 TAB; Start 12/15/16 at 21:00 Lisinopril (Zestril) 2.5 mg DAILY PO Last administered on 12/23/16 09:38; Admin Dose 2.5 MG; Start 12/18/16 at 09:00 Heparin Sodium (Porcine) (Heparin (5000 Units/0.5 ml)) 5,000 unit BID SC Last administered on 12/29/16 08:23; Admin Dose 5,000 UNIT; Start 12/17/16 at 21:00 Famotidine 20 mg 20 mg HS PO Last administered on 12/28/16 21:39; Admin Dose 20 MG; Start 12/17/16 at 21:00 Cefepime HCl (Maxipime 1gm/50 ml (Pmx)) 50 ml @ 100 mls/hr Q12 IVPB Last administered on 12/29/16 08:20; Admin Dose 100 MLS/HR; Start 12/19/16 at 21:00 Potassium Chloride (Potassium Chloride Pwd/Soln) 40 meq DAILY NGT Last administered on 12/29/16 08:20; Admin Dose 40 MEQ; Start 12/21/16 at 14:30 Guaifenesin (Robitussin Liquid Cup) 100 mg Q6H PRN PO COUGH Last administered on 12/24/16 13:02; Admin Dose 100 MG; Start 12/23/16 at 23:00 Insulin Aspart (Novolog Insulin Pen) NOVOLOG *MILD* ALGORI... Q4 SC Last administered on 12/29/16 12:52; Admin Dose 4 UNIT; Start 12/25/16 at 17:00 Furosemide (Lasix) 40 mg DAILY@06 PO Last administered on 12/29/16 06:29; Admin Dose 40 MG; Start 12/28/16 at 06:00 Polyethylene Glycol 17 gm 17 gm DAILY NGT Last administered on 12/28/16 09:56 ; Admin Dose 17 GM; Start 12/27/16 at 18:00 Dextrose/Sodium Chloride (D5-1/2ns) 1,000 ml @ 60 mls/hr [id number] IV Last administered on 12/28/16 21:39; Admin Dose 60 MLS/HR; Start 12/27/16 at 18:00 Insulin Glargine (Lantus) 30 unit DAILY@20 SC Last administered on 12/28/16 21 :49; Admin Dose 30 UNIT; Start 12/28/16 at 20:00 DANYELLE ROSSI NP Dec 29, 2016 13:41
--- NOTE | 2016-12-29 15:34 | CONS ---
Date/Time of Note Date/Time of Note DATE: 12/29/16 TIME: 15:34 Consult Date/Type/Reason Admit Date/Time Dec 10, 2016 at 16:55 Initial Consult Date 12/12/16 Type of Consultation: Pulmonary Ordering Provider: ROBEL PETTY MD Subjective Patient comfortable this morning. Tolerating pures Objective Vital Signs Date Time Temp Pulse Resp B/P Pulse Ox O2 Delivery O2 Flow Rate FiO2 12/29/16 15:20 97.8 74 18 91/46 95 12/29/16 13:46 Nasal Cannula 2.0 12/29/16 02:02 21 Intake and Output 12/28/16 12/28/16 12/29/16 14:59 22:59 06:59 Intake Total 100 ml 970 ml Output Total 400 ml 500 ml Balance -400 ml 100 ml 470 ml Exam GENERAL: Elderly lady opens eyes to voice appears comfortable. VITAL SIGNS: per chart NECK: Supple. No JVD or lymphadenopathy. CARDIAC EXAM: S1, S2. 2/6 systolic ejection murmur. CHEST: clear bilaterally, No added sounds, rales or wheezes ABDOMEN: Soft, nontender. No guarding or rebound. EXTREMITIES: No cyanosis, clubbing or edema +2 NEUROLOGIC: Generalized weakness. No focal deficits. Appears comfortable at rest no acute distress Results/Medications Result Diagram: 12/29/16 0559 12/29/16 0705 Results 24 hrs Laboratory Tests Test 12/28/16 17:08 12/28/16 21:37 12/29/16 00:57 12/29/16 05:59 Bedside Glucose 143 100 115 White Blood Count 9.1 # Red Blood Count 3.57 L Hemoglobin 10.6 L Hematocrit 33.7 L Mean Corpuscular Volume 94.4 Mean Corpuscular Hemoglobin 29.7 Mean Corpuscular Hemoglobin Concent 31.5 L Red Cell Distribution Width 13.6 Platelet Count 415 # Mean Platelet Volume 10.5 H Neutrophils % 68.6 Lymphocytes % 14.9 L Monocytes % 6.9 Eosinophils % 5.8 Basophils % 1.2 Nucleated Red Blood Cells % 0.0 Neutrophils # 6.2 Lymphocytes # 1.4 Monocytes # 0.6 Eosinophils # 0.5 Basophils # 0.1 Nucleated Red Blood Cells # 0.0 Test 12/29/16 06:27 12/29/16 07:05 12/29/16 08:13 12/29/16 12:44 Bedside Glucose 180 191 271 H Sodium Level 137 Potassium Level 4.7 Chloride Level 96 L Carbon Dioxide Level 31 Anion Gap 15 Blood Urea Nitrogen 5 L Creatinine 0.49 Glucose Level 176 Calcium Level 9.1 Phosphorus Level 3.0 Magnesium Level 1.7 Medications Current Medications Aspirin (Halfprin) 81 mg DAILY PO Last administered on 12/29/16 08:20; Admin Dose 81 MG; Start 12/11/16 at 09:00 Atorvastatin Calcium (Lipitor) 20 mg HS PO Last administered on 12/28/16 21:40 ; Admin Dose 20 MG; Start 12/10/16 at 21:00 Duloxetine HCl (Cymbalta) 20 mg DAILY PO Last administered on 12/29/16 08:20; Admin Dose 20 MG; Start 12/11/16 at 09:00 Gabapentin (Neurontin) 300 mg TID PO Last administered on 12/29/16 12:45; Admin Dose 300 MG; Start 12/10/16 at 21:00 Metoprolol Tartrate (Lopressor) 12.5 mg BID PO Last administered on 12/27/16 21:51; Admin Dose 12.5 MG; Start 12/10/16 at 21:00 Ticagrelor (Brilinta) 90 mg BID PO Last administered on 12/29/16 08:22; Admin Dose 90 MG; Start 12/10/16 at 21:00 Levothyroxine Sodium (Synthroid) 112 mcg DAILY@06 PO Last administered on 06:29; Admin Dose 112 MCG; Start 12/11/16 at 06:00 Miscellaneous Information 1 ea NOTE XX ; Start 12/10/16 at 18:30 Glucose (Glutose) 15 gm Q15M PRN PO DECREASED GLUCOSE; Start 12/10/16 at 18:30 Glucose (Glutose) 22.5 gm Q15M PRN PO DECREASED GLUCOSE; Start 12/10/16 at 18: 30 Dextrose (D50w Syringe) 25 ml Q15M PRN IV DECREASED GLUCOSE Last administered on 12/27/16 17:43; Admin Dose 25 ML; Start 12/10/16 at 18:30 Dextrose (D50w Syringe) 50 ml Q15M PRN IV DECREASED GLUCOSE; Start 12/10/16 at 18:30 Glucagon (Glucagen) 1 mg Q15M PRN IM DECREASED GLUCOSE; Start 12/10/16 at 18:30 Glucose (Glutose) 15 gm Q15M PRN BUCCAL DECREASED GLUCOSE Last administered on 12/27/16 10:05; Admin Dose 15 GM; Start 12/10/16 at 18:30 Acetaminophen (Tylenol Liquid) 650 mg Q6H PRN NGT PAIN AND OR ELEVATED TEMP Last administered on 12/23/16 23:35; Admin Dose 650 MG; Start 12/10/16 at 21:00 Acetaminophen (Tylenol Tab) 650 mg Q4H PRN PO NON-CARDIAC PAIN LEVEL (1-3); Start 12/11/16 at 13:00 Morphine Sulfate (morphine) 2 mg Q2H PRN IV FOR NON CARDIAC PAIN (4-10) Last administered on 12/15/16 10:33; Admin Dose 2 MG; Start 12/11/16 at 13:00 Al Hydrox/Mg Hydrox/Simethicone (Mag-Al Plus) 30 ml Q4H PRN PO GASTROINTESTINAL UPSET; Start 12/11/16 at 13:00 Ondansetron HCl (Zofran Inj) 4 mg Q4H PRN IV NAUSEA AND/OR VOMITING; Start at 13:00 Senna/Docusate Sodium (Senokot-S) 2 tab HS NGT Last administered on 12/28/16 21:40; Admin Dose 2 TAB; Start 12/15/16 at 21:00 Lisinopril (Zestril) 2.5 mg DAILY PO Last administered on 12/23/16 09:38; Admin Dose 2.5 MG; Start 12/18/16 at 09:00 Heparin Sodium (Porcine) (Heparin (5000 Units/0.5 ml)) 5,000 unit BID SC Last administered on 12/29/16 08:23; Admin Dose 5,000 UNIT; Start 12/17/16 at 21:00 Famotidine 20 mg 20 mg HS PO Last administered on 12/28/16 21:39; Admin Dose 20 MG; Start 12/17/16 at 21:00 Cefepime HCl (Maxipime 1gm/50 ml (Pmx)) 50 ml @ 100 mls/hr Q12 IVPB Last administered on 12/29/16 08:20; Admin Dose 100 MLS/HR; Start 12/19/16 at 21:00 Potassium Chloride (Potassium Chloride Pwd/Soln) 40 meq DAILY NGT Last administered on 12/29/16 08:20; Admin Dose 40 MEQ; Start 12/21/16 at 14:30 Guaifenesin (Robitussin Liquid Cup) 100 mg Q6H PRN PO COUGH Last administered on 12/24/16 13:02; Admin Dose 100 MG; Start 12/23/16 at 23:00 Insulin Aspart (Novolog Insulin Pen) NOVOLOG *MILD* ALGORI... Q4 SC Last administered on 12/29/16 12:52; Admin Dose 4 UNIT; Start 12/25/16 at 17:00 Furosemide (Lasix) 40 mg DAILY@06 PO Last administered on 12/29/16 06:29; Admin Dose 40 MG; Start 12/28/16 at 06:00 Polyethylene Glycol 17 gm 17 gm DAILY NGT Last administered on 12/28/16 09:56 ; Admin Dose 17 GM; Start 12/27/16 at 18:00 Dextrose/Sodium Chloride (D5-1/2ns) 1,000 ml @ 60 mls/hr [id number] IV Last administered on 12/28/16 21:39; Admin Dose 60 MLS/HR; Start 12/27/16 at 18:00 Insulin Glargine (Lantus) 30 unit DAILY@20 SC Last administered on 12/28/16 21 :49; Admin Dose 30 UNIT; Start 12/28/16 at 20:00 Assessment/Plan Chief Complaint/Hosp Course IMP: 1. s/p NSTEMI 2. Resp Failure--due to pulm edema now extubated on nasal cannula oxygen 3. AMS-resolved likely toxic metabolic encephalopathy 4. RLL pneumonia 5. Anemia 6. Dysphagia RECS: 1. Replete K+ and increase free H2O 2. Continue o2 3. Continue cefepime 4. TF/ Free H2O 5. Speech therapy plan is to advance diet. Repeat video swallow 6. Discussed with cardiac surgery will defer that cardiac surgery until the patient is more stable. Transfer to shelter facility Problems: STEFANI GONZALES MD, [facility] Dec 29, 2016 15:34
--- NOTE | 2016-12-29 15:47 | RADRPT ---
PROCEDURE: XR Chest. CLINICAL INDICATION: Shortness of breath. TECHNIQUE: Single frontal view. COMPARISON: 12/23/2016. FINDINGS: There is a nasogastric feeding tube with the tip in the gastric antrum. There is atelectasis at the right lung base, slightly improved. The lungs are otherwise clear. The heart size is normal. There is no pleural effusion. There is no pneumothorax. IMPRESSION: 1. Feeding tube tip in the stomach. 2. Slightly improved appearance of right basilar atelectasis. RPTAT: QQ .Alonso Brooks MD, MD Date Time Electronically viewed and signed by .Alonso Brooks MD, MD on 12/29/2016 15:47 .R/
[2016-12-29] MEDS: DEXTROSE 5%-0.45% NACL 1,000 ML IV SCH (17:57)
[2016-12-29] MEDS: ATORVASTATIN 20 MG TAB PO SCH (22:09)
[2016-12-29] MEDS: SENNA/DOCUSATE NA (8.6MG/50MG) TAB NGT SCH (22:09)
[2016-12-29] MEDS: FAMOTIDINE 20 MG TAB PO SCH (22:11)
[2016-12-29] MEDS: INSULIN GLARGINE [LANtus] 3 ML PEN SC SCH (22:44)
[2016-12-30] VITALS (10 sets, daily range): BP systolic 95–129; BP diastolic 48–70; PULSE 77–90; RESP 16–19
[2016-12-30] MEDS: INSULIN ASPART [NOVOLOG] 3 ML PEN SC SCH ×7 (00:40→12:16)
[2016-12-30] MEDS: ALBUTEROL/IPRATROPIUM (NEB) 3 ML AMP HHN SCH ×4 (01:12→15:23)
[2016-12-30] MEDS: DEXTROSE 50% 50 ML SYRINGE IV PRN (04:59)
[2016-12-30] MEDS: FUROSEMIDE 40 MG TAB PO SCH (05:08)
[2016-12-30] MEDS: LEVOTHYROXINE 112 MCG TAB PO SCH (05:11)
[2016-12-30 07:22] LABS: ADD SCAN DIFF NO
[2016-12-30 07:35] LABS: BASOPHIL # 0.1 10^3/ul (0.0-0.1); BASOPHILS % 0.9 % (0.0-2.0); EOSINOPHILS # 0.5 10^3/ul (0.0-0.5); EOSINOPHILS % 5.7 % (0.0-7.0); HEMATOCRIT 34.1 % (37.0-47.0); HEMOGLOBIN 10.8 g/dl (12.0-16.0); LYMPHOCYTES # 1.1 10^3/ul (0.8-2.9); LYMPHOCYTES % 11.9 % (15.0-51.0); MEAN CORPUSCULAR HEMOGLOBIN 29.8 pg (29.0-33.0); MEAN CORPUSCULAR HGB CONC 31.7 g/dl (32.0-37.0); MEAN CORPUSCULAR VOLUME 93.9 fl (82.0-101.0); MONOCYTE # 0.7 10^3/ul (0.3-0.9); MONOCYTES % 7.9 % (0.0-11.0); NEUTROPHIL # 6.6 10^3/ul (1.6-7.5); NEUTROPHILS % 71.2 % (39.0-77.0); PLATELET COUNT 429 10^3/UL (140-415); RED BLOOD COUNT 3.63 10^6/ul (4.20-5.40); RED CELL DISTRIBUTION WIDTH 13.6 % (11.5-14.5); WHITE BLOOD COUNT 9.2 10^3/ul (4.8-10.8)
[2016-12-30 07:53] LABS: CALCIUM 9.4 mg/dl (8.4-10.2); CREATININE 0.47 mg/dl (0.44-1.00); POTASSIUM 4.6 mmol/L (3.5-5.1)
[2016-12-30] MEDS: POLYETHYLENE GLYCOL 17 GM PACKET NGT SCH (08:11)
[2016-12-30] MEDS: CEFEPIME 1GM/50 ML (PMX) 50 ML IVPB SCH (08:11)
[2016-12-30] MEDS: GABAPENTIN 300 MG CAP PO SCH ×2 (08:12→12:17)
[2016-12-30] MEDS: ASPIRIN (EC) 81 MG TAB PO SCH (08:12)
[2016-12-30] MEDS: POTASSIUM CHLORIDE 20 MEQ POWDER FOR ORAL SOLN NGT SCH (08:12)
[2016-12-30] MEDS: DULOXETINE 20 MG CAP DR PO SCH (08:12)
[2016-12-30] MEDS: METOPROLOL 25 MG TAB PO SCH (08:13)
[2016-12-30] MEDS: LISINOPRIL 5 MG TAB PO SCH (08:13)
[2016-12-30] MEDS: HEPARIN 5,000 UNIT/0.5 ML VIAL SC SCH (08:13)
[2016-12-30] MEDS: TICAGRELOR 90 MG TABLET PO SCH (08:15)
--- NOTE | 2016-12-30 10:52 | PDOCDIS ---
Discharge Instructions CONDITION Patient Condition: Stable HOME CARE INSTRUCTIONS: Special Diet: Diabetisource TANIYA OLMSTEAD Dec 30, 2016 10:52
--- NOTE | 2016-12-30 11:00 | DS ---
Date/Time of Note Date/Time of Note DATE: 12/30/16 TIME: 10:53 Discharge Summary Admission/Discharge Info Admit Date/Time Dec 10, 2016 at 16:55 Discharge Date/Time Discharge Diagnosis #NSTEMI sp PCI with CAD, but still warranting CABG when medically stable #elevated residuals from NG TFs -undergoing barium swallow test to further assess #ICM: EF 25% #DM2: a1c 9s #aspiration pna-improving on antibiotics #hypothyroid #Respiratory failure: Status post intubation, now extubated, improved Patient Condition: Stable Hospital Course 56 yo F with pmhx DM2 presented initially to [place] with AMS, found to be in DKA. Troponin found to be elevated but no ST segment elevation. While pt was getting IVFs for DKA treatment volume overload resulted and pt required intubation for volume overload. Pt transferred from [place] to here for angiogram for her NSTEMI. At time of transfer pt was on SubQ insulin and heparin drip. Patient found with right lower lobe pneumonia, started on antibiotics. Seen by multiple specialists during this hospital stay including speech therapy, physical therapy , cardiothoracic surgery, pulmonary, infectious disease, cardiology teams. Patient diagnosed with ischemic cardiomyopathy ejection fraction 25%. She underwent PCI placement by cardiology team but recommendations are still for coronary artery bypass grafting when she is more medically stable. Eventually patient was able to be extubated and transferred out of the intensive care unit. She was placed on NG tube feedings which at one point she had high residuals and the tube feedings had to be held but were able to be restarted. She is presently undergoing barium swallow test to further assess her swallow function. Her A1c was found to be in the 9 range, and she was placed on appropriate insulin regimen. Over the course of her hospital stay her altered mental status improved, she is completing treatment of her pneumonia with antibiotics for another 2 more days. She will be discharged to acute rehab facility today pending the results of the barium swallow test today. For discharge medication list please see printed med reconciliation form in the chart cont home meds Home Meds Active Scripts Isosorbide Dinitrate* (Isordil*) 10 Mg Tablet, 10 MG PO TID for 30 Days, TAB Prov:TAD POPE 08/29/16 Insulin Glargine* (Lantus*) 100 Unit/Ml Soln, 30 UNIT SC DAILY@20 for 30 Days Prov:TAD POPE 08/29/16 Insulin Aspart* (Novolog Insulin Pen*) 100 Unit/Ml Soln, 12 UNIT SC WITH MEALS for 30 Days Prov:TAD POPE 08/29/16 Metoprolol Tartrate* (Lopressor*) 25 Mg Tab, 12.5 MG PO BID for 30 Days, TAB Prov:TOSHIATAD 08/29/16 Aspirin* (Aspirin* EC) 81 Mg Tabec, 81 MG PO DAILY for 30 Days, #30 Prov:TAD POPE 08/29/16 Ticagrelor* (Brilinta*) 90 Mg Tablet, 90 MG PO BID for 30 Days, #60 Prov:TOSHIATAD 08/29/16 Atorvastatin Calcium* (Atorvastatin Calcium*) 20 Mg Tablet, 20 MG PO HS for 30 Days, TAB Prov:TOSHIATAD 08/29/16 Duloxetine Hcl* (Duloxetine Hcl*) 20 Mg Capsule.dr, 20 MG PO DAILY for 30 Days, CAP Prov:TAD POPE 08/29/16 Gabapentin* (Gabapentin*) 300 Mg Capsule, 300 MG PO TID for 30 Days, CAP Prov:TAD POPE 08/29/16 Reported Medications Alendronate Sodium* (Fosamax*) 70 Mg Tablet, 70 MG PO Q7D, #4 TAB 08/19/16 Primary Care Provider [facility] Pending Labs Laboratory Tests Test 12/29/16 12:44 12/29/16 16:53 12/29/16 17:51 12/29/16 22:39 Bedside Glucose 271mg/dL (70-220) 221mg/dL (70-220) 195mg/dL (70-220) 102mg/dL (70-220) Test 12/30/16 00:33 12/30/16 04:53 12/30/16 05:20 12/30/16 05:46 Bedside Glucose 150mg/dL (70-220) 63mg/dL (70-220) 139mg/dL (70-220) 133mg/dL (70-220) Test 12/30/16 06:57 12/30/16 07:56 White Blood Count 9.210^3/ul (4.8-10.8) Red Blood Count 3.6310^6/ul (4.20-5.40) Hemoglobin 10.8g/dl (12.0-16.0) Hematocrit 34.1% (37.0-47.0) Mean Corpuscular Volume 93.9fl (82.0-101.0) Mean Corpuscular Hemoglobin 29.8pg (29.0-33.0) Mean Corpuscular Hemoglobin Concent 31.7g/dl (32.0-37.0) Red Cell Distribution Width 13.6% (11.5-14.5) Platelet Count 92666^3/UL (140-415) Mean Platelet Volume 10.0fl (7.4-10.4) Neutrophils % 71.2% (39.0-77.0) Lymphocytes % 11.9% (15.0-51.0) Monocytes % 7.9% (0.0-11.0) Eosinophils % 5.7% (0.0-7.0) Basophils % 0.9% (0.0-2.0) Nucleated Red Blood Cells % 0.0/100WBC (0.0-0.0) Neutrophils # 6.610^3/ul (1.6-7.5) Lymphocytes # 1.110^3/ul (0.8-2.9) Monocytes # 0.710^3/ul (0.3-0.9) Eosinophils # 0.510^3/ul (0.0-0.5) Basophils # 0.110^3/ul (0.0-0.1) Nucleated Red Blood Cells # 0.010^3/ul (0.0-0.0) Sodium Level 139mmol/L (135-144) Potassium Level 4.6mmol/L (3.5-5.1) Chloride Level 96mmol/L (97-110) Carbon Dioxide Level 34mmol/L (21-31) Anion Gap 14 (8-16) Blood Urea Nitrogen 6mg/dl (7-20) Creatinine 0.47mg/dl (0.44-1.00) Glucose Level 105mg/dl (70-220) Calcium Level 9.4mg/dl (8.4-10.2) Bedside Glucose 108mg/dL (70-220) TANIYA OLMSTEAD Dec 30, 2016 10:59
--- NOTE | 2016-12-30 11:25 | CONS ---
Date/Time of Note Date/Time of Note DATE: 12/30/16 TIME: 11:24 Consult Date/Type/Reason Admit Date/Time Dec 10, 2016 at 16:55 Initial Consult Date 12/12/16 Type of Consultation: Pulmonary Ordering Provider: ROBEL PETTY MD Subjective Patient comfortable this morning still has significant weakness Objective Vital Signs Date Time Temp Pulse Resp B/P Pulse Ox O2 Delivery O2 Flow Rate FiO2 12/30/16 11:16 97.8 61 18 122/70 96 12/30/16 08:30 Nasal Cannula 2.0 12/29/16 02:02 21 Intake and Output 12/29/16 12/29/16 12/30/16 15:00 23:00 07:00 Intake Total 50 ml 650 ml 1250 ml Balance 50 ml 650 ml 1250 ml Exam GENERAL: Elderly lady opens eyes to voice appears comfortable. VITAL SIGNS: per chart NECK: Supple. No JVD or lymphadenopathy. CARDIAC EXAM: S1, S2. 2/6 systolic ejection murmur. CHEST: clear bilaterally, No added sounds, rales or wheezes ABDOMEN: Soft, nontender. No guarding or rebound. EXTREMITIES: No cyanosis, clubbing or edema +2 NEUROLOGIC: Generalized weakness. No focal deficits. Appears comfortable at rest no acute distress Results/Medications Result Diagram: 12/30/16 0657 12/30/16 0657 Results 24 hrs Laboratory Tests Test 12/29/16 12:44 12/29/16 16:53 12/29/16 17:51 12/29/16 22:39 Bedside Glucose 271 H 221 H 195 102 Test 12/30/16 00:33 12/30/16 04:53 12/30/16 05:20 12/30/16 05:46 Bedside Glucose 150 63 L 139 133 Test 12/30/16 06:57 12/30/16 07:56 White Blood Count 9.2 Red Blood Count 3.63 L Hemoglobin 10.8 L Hematocrit 34.1 L Mean Corpuscular Volume 93.9 Mean Corpuscular Hemoglobin 29.8 Mean Corpuscular Hemoglobin Concent 31.7 L Red Cell Distribution Width 13.6 Platelet Count 429 H Mean Platelet Volume 10.0 Neutrophils % 71.2 Lymphocytes % 11.9 L Monocytes % 7.9 Eosinophils % 5.7 Basophils % 0.9 Nucleated Red Blood Cells % 0.0 Neutrophils # 6.6 Lymphocytes # 1.1 Monocytes # 0.7 Eosinophils # 0.5 Basophils # 0.1 Nucleated Red Blood Cells # 0.0 Sodium Level 139 Potassium Level 4.6 Chloride Level 96 L Carbon Dioxide Level 34 H Anion Gap 14 Blood Urea Nitrogen 6 L Creatinine 0.47 Glucose Level 105 # Calcium Level 9.4 Bedside Glucose 108 Medications Current Medications Aspirin (Halfprin) 81 mg DAILY PO Last administered on 12/30/16 08:12; Admin Dose 81 MG; Start 12/11/16 at 09:00 Atorvastatin Calcium (Lipitor) 20 mg HS PO Last administered on 12/29/16 22:09 ; Admin Dose 20 MG; Start 12/10/16 at 21:00 Duloxetine HCl (Cymbalta) 20 mg DAILY PO Last administered on 12/30/16 08:12; Admin Dose 20 MG; Start 12/11/16 at 09:00 Gabapentin (Neurontin) 300 mg TID PO Last administered on 12/30/16 08:12; Admin Dose 300 MG; Start 12/10/16 at 21:00 Metoprolol Tartrate (Lopressor) 12.5 mg BID PO Last administered on 12/30/16 08:13; Admin Dose 12.5 MG; Start 12/10/16 at 21:00 Ticagrelor (Brilinta) 90 mg BID PO Last administered on 12/30/16 08:15; Admin Dose 90 MG; Start 12/10/16 at 21:00 Levothyroxine Sodium (Synthroid) 112 mcg DAILY@06 PO Last administered on 05:11; Admin Dose 112 MCG; Start 12/11/16 at 06:00 Miscellaneous Information 1 ea NOTE XX ; Start 12/10/16 at 18:30 Glucose (Glutose) 15 gm Q15M PRN PO DECREASED GLUCOSE; Start 12/10/16 at 18:30 Glucose (Glutose) 22.5 gm Q15M PRN PO DECREASED GLUCOSE; Start 12/10/16 at 18: 30 Dextrose (D50w Syringe) 25 ml Q15M PRN IV DECREASED GLUCOSE Last administered on 12/30/16 04:59; Admin Dose 25 ML; Start 12/10/16 at 18:30 Dextrose (D50w Syringe) 50 ml Q15M PRN IV DECREASED GLUCOSE; Start 12/10/16 at 18:30 Glucagon (Glucagen) 1 mg Q15M PRN IM DECREASED GLUCOSE; Start 12/10/16 at 18:30 Glucose (Glutose) 15 gm Q15M PRN BUCCAL DECREASED GLUCOSE Last administered on 12/27/16 10:05; Admin Dose 15 GM; Start 12/10/16 at 18:30 Acetaminophen (Tylenol Liquid) 650 mg Q6H PRN NGT PAIN AND OR ELEVATED TEMP Last administered on 12/23/16 23:35; Admin Dose 650 MG; Start 12/10/16 at 21:00 Acetaminophen (Tylenol Tab) 650 mg Q4H PRN PO NON-CARDIAC PAIN LEVEL (1-3); Start 12/11/16 at 13:00 Morphine Sulfate (morphine) 2 mg Q2H PRN IV FOR NON CARDIAC PAIN (4-10) Last administered on 12/15/16 10:33; Admin Dose 2 MG; Start 12/11/16 at 13:00 Al Hydrox/Mg Hydrox/Simethicone (Mag-Al Plus) 30 ml Q4H PRN PO GASTROINTESTINAL UPSET; Start 12/11/16 at 13:00 Ondansetron HCl (Zofran Inj) 4 mg Q4H PRN IV NAUSEA AND/OR VOMITING; Start at 13:00 Senna/Docusate Sodium (Senokot-S) 2 tab HS NGT Last administered on 12/29/16 22:09; Admin Dose 2 TAB; Start 12/15/16 at 21:00 Lisinopril (Zestril) 2.5 mg DAILY PO Last administered on 12/30/16 08:13; Admin Dose 2.5 MG; Start 12/18/16 at 09:00 Heparin Sodium (Porcine) (Heparin (5000 Units/0.5 ml)) 5,000 unit BID SC Last administered on 12/30/16 08:13; Admin Dose 5,000 UNIT; Start 12/17/16 at 21:00 Famotidine 20 mg 20 mg HS PO Last administered on 12/29/16 22:11; Admin Dose 20 MG; Start 12/17/16 at 21:00 Cefepime HCl (Maxipime 1gm/50 ml (Pmx)) 50 ml @ 100 mls/hr Q12 IVPB Last administered on 12/30/16 08:11; Admin Dose 100 MLS/HR; Start 12/19/16 at 21:00 Potassium Chloride (Potassium Chloride Pwd/Soln) 40 meq DAILY NGT Last administered on 12/30/16 08:12; Admin Dose 40 MEQ; Start 12/21/16 at 14:30 Guaifenesin (Robitussin Liquid Cup) 100 mg Q6H PRN PO COUGH Last administered on 12/24/16 13:02; Admin Dose 100 MG; Start 12/23/16 at 23:00 Insulin Aspart (Novolog Insulin Pen) NOVOLOG *MILD* ALGORI... Q4 SC Last administered on 12/30/16 00:41; Admin Dose 1 UNIT; Start 12/25/16 at 17:00 Furosemide (Lasix) 40 mg DAILY@06 PO Last administered on 12/29/16 06:29; Admin Dose 40 MG; Start 12/28/16 at 06:00 Polyethylene Glycol 17 gm 17 gm DAILY NGT Last administered on 12/30/16 08:11 ; Admin Dose 17 GM; Start 12/27/16 at 18:00 Dextrose/Sodium Chloride (D5-1/2ns) 1,000 ml @ 60 mls/hr [id number] IV Last administered on 12/29/16 17:57; Admin Dose 60 MLS/HR; Start 12/27/16 at 18:00 Insulin Glargine (Lantus) 30 unit DAILY@20 SC Last administered on 12/29/16 22 :44; Admin Dose 30 UNIT; Start 12/28/16 at 20:00 Insulin Aspart (Novolog Insulin Pen) 7 unit Q6 SC Last administered on 00:40; Admin Dose 7 UNIT; Start 12/29/16 at 18:00 Assessment/Plan Chief Complaint/Hosp Course IMP: 1. s/p NSTEMI 2. Resp Failure--due to pulm edema now extubated on nasal cannula oxygen 3. AMS-resolved likely toxic metabolic encephalopathy 4. RLL pneumonia 5. Anemia 6. Dysphagia RECS: 1. Replete K+ and increase free H2O 2. Continue o2 3. Continue cefepime 4. TF/ Free H2O 5. Speech therapy plan is to advance diet. Repeat video swallow 6. Discussed with cardiac surgery will defer that cardiac surgery until the patient is more stable. Transfer to shelter facility where patient can continue with speech therapy and advance diet as tolerated. Problems: STEFANI GONZALES MD, [facility] Dec 30, 2016 11:25
[2016-12-30] MEDS: DEXTROSE 5%-0.45% NACL 1,000 ML IV SCH (12:16)
[2016-12-30] MEDS ORDERED: BARIUM SULFATE 135 ML (E-Z HD) PO ONE (12:34)
--- NOTE | 2016-12-30 13:36 | RADRPT ---
PROCEDURE: Video-fluoroscopy swallowing study. CLINICAL INDICATION: Dysphagia. TECHNIQUE: Fluoroscopic guided video swallowing study was done in conjunction with the speech ther apist. The study was confined to the oral, pharyngeal, and cervical phases of the swallowing mechani sm. 2.5 minutes of fluoroscopy time was used. 32 series of images were obtained. COMPARISON: No prior study is available for comparison. FINDINGS: There is a possible soft tissue mass in the pretracheal region at the C5 level with anterior displac ement of the esophagus. The the patient aspirated during swallowing. IMPRESSION: 1. Possible soft tissue mass at the C5 level anteriorly. Correlation with CT scan of the soft tiss ues of the neck with contrast is advised. 2. Aspiration during swallowing. 3. Please refer to the speech therapist's recommendations for future feedings. RPTAT: QQ .Alonso Brooks MD, Date Time Electronically viewed and signed by .Alonso Brooks MD, on 12/30/2016 13:36 .R/
--- NOTE | 2016-12-30 14:26 | CONS ---
Date/Time of Note Date/Time of Note DATE: 12/30/16 TIME: 14:23 Assessment/Plan Assessment/Plan Chief Complaint/Hosp Course IMP: 1.NSTEMI-peak trop>60 Now dowtrended significantly s/p LHC with patent RCA stents and high grade disease of LAD/LCX with small caliber vessels and recc for CABG 2.cardiomyopathy-LVEF 40-45 BY OSH echo. 25% by echo read here 3.Hypotension-improved off of pressors with some lability and holding of anti- hypertenives at times 4.resp failure s/p extubation requiring PRN BIPAP which has now improved and not requiring further at this time 5.anemia 6. AMS/encephalopathy 7. PNA 8. COPD 9. Hypothyroid Recc: -Tele -Follow BP closely and continue low dose BB/ACEI as tolerated only -Continue asa/brilinta -Continue statin -Follow volume status closely and continue lasix diuresis currently PO daily/ check cxr -Smoking cessation -Follow BS closely -Continue abx's and f/u cx data -Continue bronchodilators -CT surgical eval ongoing and have discussed with daughter who is agreeable and CT surgery following with pnding date of surgery? -Possible transfer top acute rehab Problems: Consultation Date/Type/Reason Admit Date/Time Dec 10, 2016 at 16:55 Initial Consult Date 12/12/16 Type of Consultation: cardiology Reason for Consultation Nstemi Referring Provider: ROBEL PETTY MD Exam/Review of Systems Vital Signs Vitals Vital Signs Date Time Temp Pulse Resp B/P Pulse Ox O2 Delivery O2 Flow Rate FiO2 12/30/16 12:07 90 12/30/16 11:16 98.6 16 95/48 100 12/30/16 08:30 Nasal Cannula 2.0 12/29/16 02:02 21 Intake and Output 12/29/16 12/29/16 12/30/16 15:00 23:00 07:00 Intake Total 50 ml 650 ml 1250 ml Balance 50 ml 650 ml 1250 ml Exam Review of Systems: CONSTITUTIONAL: No fevers, chills. PULMONARY: improved sob CARDIOVASCULAR: No chest pain/palpitations GASTROINTESTINAL: No nausea/vomiting. GENITOURINARY: No hematuria/dysuria. MUSCULOSKELETAL: No myagias/arthalgias. PSYCHIATRIC: The patient denies depression. NEUROLOGIC: mild generalized weakness Constitutional: alert Head: normocephalic ENMT: mucosa pink and moist Neck: jvd (9 cm water), supple Respiratory: diminished breath sounds (at bases/B) Cardiovascular: regular rate and rhythm Gastrointestinal: non-tender, soft Musculoskeletal: muscle weakness (generalized) Extremities: edema (none) 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: lethargic Results Result Diagram: 12/30/16 0657 12/30/16 0657 Results 24 hrs Laboratory Tests Test 12/29/16 16:53 12/29/16 17:51 12/29/16 22:39 12/30/16 00:33 Bedside Glucose 221 H 195 102 150 Test 12/30/16 04:53 12/30/16 05:20 12/30/16 05:46 12/30/16 06:57 Bedside Glucose 63 L 139 133 White Blood Count 9.2 Red Blood Count 3.63 L Hemoglobin 10.8 L Hematocrit 34.1 L Mean Corpuscular Volume 93.9 Mean Corpuscular Hemoglobin 29.8 Mean Corpuscular Hemoglobin Concent 31.7 L Red Cell Distribution Width 13.6 Platelet Count 429 H Mean Platelet Volume 10.0 Neutrophils % 71.2 Lymphocytes % 11.9 L Monocytes % 7.9 Eosinophils % 5.7 Basophils % 0.9 Nucleated Red Blood Cells % 0.0 Neutrophils # 6.6 Lymphocytes # 1.1 Monocytes # 0.7 Eosinophils # 0.5 Basophils # 0.1 Nucleated Red Blood Cells # 0.0 Sodium Level 139 Potassium Level 4.6 Chloride Level 96 L Carbon Dioxide Level 34 H Anion Gap 14 Blood Urea Nitrogen 6 L Creatinine 0.47 Glucose Level 105 # Calcium Level 9.4 Test 12/30/16 07:56 12/30/16 12:15 Bedside Glucose 108 103 Medications Medications Current Medications Aspirin (Halfprin) 81 mg DAILY PO Last administered on 12/30/16 08:12; Admin Dose 81 MG; Start 12/11/16 at 09:00 Atorvastatin Calcium (Lipitor) 20 mg HS PO Last administered on 12/29/16 22:09 ; Admin Dose 20 MG; Start 12/10/16 at 21:00 Duloxetine HCl (Cymbalta) 20 mg DAILY PO Last administered on 12/30/16 08:12; Admin Dose 20 MG; Start 12/11/16 at 09:00 Gabapentin (Neurontin) 300 mg TID PO Last administered on 12/30/16 12:17; Admin Dose 300 MG; Start 12/10/16 at 21:00 Metoprolol Tartrate (Lopressor) 12.5 mg BID PO Last administered on 12/30/16 08:13; Admin Dose 12.5 MG; Start 12/10/16 at 21:00 Ticagrelor (Brilinta) 90 mg BID PO Last administered on 12/30/16 08:15; Admin Dose 90 MG; Start 12/10/16 at 21:00 Levothyroxine Sodium (Synthroid) 112 mcg DAILY@06 PO Last administered on 05:11; Admin Dose 112 MCG; Start 12/11/16 at 06:00 Miscellaneous Information 1 ea NOTE XX ; Start 12/10/16 at 18:30 Glucose (Glutose) 15 gm Q15M PRN PO DECREASED GLUCOSE; Start 12/10/16 at 18:30 Glucose (Glutose) 22.5 gm Q15M PRN PO DECREASED GLUCOSE; Start 12/10/16 at 18: 30 Dextrose (D50w Syringe) 25 ml Q15M PRN IV DECREASED GLUCOSE Last administered on 12/30/16 04:59; Admin Dose 25 ML; Start 12/10/16 at 18:30 Dextrose (D50w Syringe) 50 ml Q15M PRN IV DECREASED GLUCOSE; Start 12/10/16 at 18:30 Glucagon (Glucagen) 1 mg Q15M PRN IM DECREASED GLUCOSE; Start 12/10/16 at 18:30 Glucose (Glutose) 15 gm Q15M PRN BUCCAL DECREASED GLUCOSE Last administered on 12/27/16 10:05; Admin Dose 15 GM; Start 12/10/16 at 18:30 Acetaminophen (Tylenol Liquid) 650 mg Q6H PRN NGT PAIN AND OR ELEVATED TEMP Last administered on 12/23/16 23:35; Admin Dose 650 MG; Start 12/10/16 at 21:00 Acetaminophen (Tylenol Tab) 650 mg Q4H PRN PO NON-CARDIAC PAIN LEVEL (1-3); Start 12/11/16 at 13:00 Morphine Sulfate (morphine) 2 mg Q2H PRN IV FOR NON CARDIAC PAIN (4-10) Last administered on 12/15/16 10:33; Admin Dose 2 MG; Start 12/11/16 at 13:00 Al Hydrox/Mg Hydrox/Simethicone (Mag-Al Plus) 30 ml Q4H PRN PO GASTROINTESTINAL UPSET; Start 12/11/16 at 13:00 Ondansetron HCl (Zofran Inj) 4 mg Q4H PRN IV NAUSEA AND/OR VOMITING; Start at 13:00 Senna/Docusate Sodium (Senokot-S) 2 tab HS NGT Last administered on 12/29/16 22:09; Admin Dose 2 TAB; Start 12/15/16 at 21:00 Lisinopril (Zestril) 2.5 mg DAILY PO Last administered on 12/30/16 08:13; Admin Dose 2.5 MG; Start 12/18/16 at 09:00 Heparin Sodium (Porcine) (Heparin (5000 Units/0.5 ml)) 5,000 unit BID SC Last administered on 12/30/16 08:13; Admin Dose 5,000 UNIT; Start 12/17/16 at 21:00 Famotidine 20 mg 20 mg HS PO Last administered on 12/29/16 22:11; Admin Dose 20 MG; Start 12/17/16 at 21:00 Cefepime HCl (Maxipime 1gm/50 ml (Pmx)) 50 ml @ 100 mls/hr Q12 IVPB Last administered on 12/30/16 08:11; Admin Dose 100 MLS/HR; Start 12/19/16 at 21:00 Potassium Chloride (Potassium Chloride Pwd/Soln) 40 meq DAILY NGT Last administered on 12/30/16 08:12; Admin Dose 40 MEQ; Start 12/21/16 at 14:30 Guaifenesin (Robitussin Liquid Cup) 100 mg Q6H PRN PO COUGH Last administered on 12/24/16 13:02; Admin Dose 100 MG; Start 12/23/16 at 23:00 Insulin Aspart (Novolog Insulin Pen) NOVOLOG *MILD* ALGORI... Q4 SC Last administered on 12/30/16 00:41; Admin Dose 1 UNIT; Start 12/25/16 at 17:00 Furosemide (Lasix) 40 mg DAILY@06 PO Last administered on 12/29/16 06:29; Admin Dose 40 MG; Start 12/28/16 at 06:00 Polyethylene Glycol 17 gm 17 gm DAILY NGT Last administered on 12/30/16 08:11 ; Admin Dose 17 GM; Start 12/27/16 at 18:00 Dextrose/Sodium Chloride (D5-1/2ns) 1,000 ml @ 60 mls/hr [id number] IV Last administered on 12/29/16 17:57; Admin Dose 60 MLS/HR; Start 12/27/16 at 18:00 Insulin Glargine (Lantus) 30 unit DAILY@20 SC Last administered on 12/29/16 22 :44; Admin Dose 30 UNIT; Start 12/28/16 at 20:00 Insulin Aspart (Novolog Insulin Pen) 7 unit Q6 SC Last administered on 00:40; Admin Dose 7 UNIT; Start 12/29/16 at 18:00 RHONDA PENA Dec 30, 2016 14:25
[2016-12-30] MEDS ORDERED: INSULIN ASPART [NOVOLOG] 3 ML PEN SC SCH (17:55)
--- NOTE | 2016-12-30 18:09 | CONS ---
Date/Time of Note Date/Time of Note DATE: 12/30/16 TIME: 18:07 Assessment/Plan Assessment/Plan Chief Complaint/Hosp Course Alert, looks comfortable, denies pain discomfort Indwelling's: Mccray catheter, right upper extremity PICC line Antibiotics: Cefepime #12 Physical examination: Well-developed, older looking 56-year-old woman who is awake in no distress. Head atraumatic normocephalic sclera nonicteric, mucosa pink dry neck is supple chest rise symmetrical breath sounds clear, diminished basis. Heart S1-S2. Abdomen soft bowel tones present. Extremities without cyanosis. Assessment: 1. Resolving pneumonia 2. Status post fungal UTI 3. Non-ST elevation PR/cardiomyopathy with ejection fraction 25% 4. Status post respiratory failure 5. Dysphasia==> possible ongoing aspiration, patient getting tube feedings through NG tube 6. Head lies status post treatment Plan: Remain stable, cxr improving, dc antibiotics, continue anti-aspiration measures. Possible CABG once medically stable [facility] staff Problems: Consultation Date/Type/Reason Admit Date/Time Dec 10, 2016 at 16:55 Initial Consult Date 12/12/16 Type of Consultation: id Referring Provider: ROBEL PETTY MD Exam/Review of Systems Vital Signs Vitals Vital Signs Date Time Temp Pulse Resp B/P Pulse Ox O2 Delivery O2 Flow Rate FiO2 12/30/16 17:39 2.0 12/30/16 16:07 77 12/30/16 15:23 18 100 Nasal Cannula 12/30/16 15:16 99.1 103/49 12/29/16 02:02 21 Intake and Output 12/29/16 12/29/16 12/30/16 15:00 23:00 07:00 Intake Total 50 ml 650 ml 1250 ml Balance 50 ml 650 ml 1250 ml Results Result Diagram: 12/30/16 0657 12/30/16 0657 Results 24 hrs Laboratory Tests Test 12/29/16 22:39 12/30/16 00:33 12/30/16 04:53 12/30/16 05:20 Bedside Glucose 102 150 63 L 139 Test 12/30/16 05:46 12/30/16 06:57 12/30/16 07:56 12/30/16 12:15 Bedside Glucose 133 108 103 White Blood Count 9.2 Red Blood Count 3.63 L Hemoglobin 10.8 L Hematocrit 34.1 L Mean Corpuscular Volume 93.9 Mean Corpuscular Hemoglobin 29.8 Mean Corpuscular Hemoglobin Concent 31.7 L Red Cell Distribution Width 13.6 Platelet Count 429 H Mean Platelet Volume 10.0 Neutrophils % 71.2 Lymphocytes % 11.9 L Monocytes % 7.9 Eosinophils % 5.7 Basophils % 0.9 Nucleated Red Blood Cells % 0.0 Neutrophils # 6.6 Lymphocytes # 1.1 Monocytes # 0.7 Eosinophils # 0.5 Basophils # 0.1 Nucleated Red Blood Cells # 0.0 Sodium Level 139 Potassium Level 4.6 Chloride Level 96 L Carbon Dioxide Level 34 H Anion Gap 14 Blood Urea Nitrogen 6 L Creatinine 0.47 Glucose Level 105 # Calcium Level 9.4 Test 12/30/16 17:07 Bedside Glucose 199 Medications Medications Current Medications Aspirin (Halfprin) 81 mg DAILY PO Last administered on 12/30/16 08:12; Admin Dose 81 MG; Start 12/11/16 at 09:00 Atorvastatin Calcium (Lipitor) 20 mg HS PO Last administered on 12/29/16 22:09 ; Admin Dose 20 MG; Start 12/10/16 at 21:00 Duloxetine HCl (Cymbalta) 20 mg DAILY PO Last administered on 12/30/16 08:12; Admin Dose 20 MG; Start 12/11/16 at 09:00 Gabapentin (Neurontin) 300 mg TID PO Last administered on 12/30/16 12:17; Admin Dose 300 MG; Start 12/10/16 at 21:00 Metoprolol Tartrate (Lopressor) 12.5 mg BID PO Last administered on 12/30/16 08:13; Admin Dose 12.5 MG; Start 12/10/16 at 21:00 Ticagrelor (Brilinta) 90 mg BID PO Last administered on 12/30/16 08:15; Admin Dose 90 MG; Start 12/10/16 at 21:00 Levothyroxine Sodium (Synthroid) 112 mcg DAILY@06 PO Last administered on 05:11; Admin Dose 112 MCG; Start 12/11/16 at 06:00 Miscellaneous Information 1 ea NOTE XX ; Start 12/10/16 at 18:30 Glucose (Glutose) 15 gm Q15M PRN PO DECREASED GLUCOSE; Start 12/10/16 at 18:30 Glucose (Glutose) 22.5 gm Q15M PRN PO DECREASED GLUCOSE; Start 12/10/16 at 18: 30 Dextrose (D50w Syringe) 25 ml Q15M PRN IV DECREASED GLUCOSE Last administered on 12/30/16 04:59; Admin Dose 25 ML; Start 12/10/16 at 18:30 Dextrose (D50w Syringe) 50 ml Q15M PRN IV DECREASED GLUCOSE; Start 12/10/16 at 18:30 Glucagon (Glucagen) 1 mg Q15M PRN IM DECREASED GLUCOSE; Start 12/10/16 at 18:30 Glucose (Glutose) 15 gm Q15M PRN BUCCAL DECREASED GLUCOSE Last administered on 12/27/16 10:05; Admin Dose 15 GM; Start 12/10/16 at 18:30 Acetaminophen (Tylenol Liquid) 650 mg Q6H PRN NGT PAIN AND OR ELEVATED TEMP Last administered on 12/23/16 23:35; Admin Dose 650 MG; Start 12/10/16 at 21:00 Acetaminophen (Tylenol Tab) 650 mg Q4H PRN PO NON-CARDIAC PAIN LEVEL (1-3); Start 12/11/16 at 13:00 Morphine Sulfate (morphine) 2 mg Q2H PRN IV FOR NON CARDIAC PAIN (4-10) Last administered on 12/15/16 10:33; Admin Dose 2 MG; Start 12/11/16 at 13:00 Al Hydrox/Mg Hydrox/Simethicone (Mag-Al Plus) 30 ml Q4H PRN PO GASTROINTESTINAL UPSET; Start 12/11/16 at 13:00 Ondansetron HCl (Zofran Inj) 4 mg Q4H PRN IV NAUSEA AND/OR VOMITING; Start at 13:00 Senna/Docusate Sodium (Senokot-S) 2 tab HS NGT Last administered on 12/29/16 22:09; Admin Dose 2 TAB; Start 12/15/16 at 21:00 Lisinopril (Zestril) 2.5 mg DAILY PO Last administered on 12/30/16 08:13; Admin Dose 2.5 MG; Start 12/18/16 at 09:00 Heparin Sodium (Porcine) (Heparin (5000 Units/0.5 ml)) 5,000 unit BID SC Last administered on 12/30/16 08:13; Admin Dose 5,000 UNIT; Start 12/17/16 at 21:00 Famotidine 20 mg 20 mg HS PO Last administered on 12/29/16 22:11; Admin Dose 20 MG; Start 12/17/16 at 21:00 Cefepime HCl (Maxipime 1gm/50 ml (Pmx)) 50 ml @ 100 mls/hr Q12 IVPB Last administered on 12/30/16 08:11; Admin Dose 100 MLS/HR; Start 12/19/16 at 21:00 Potassium Chloride (Potassium Chloride Pwd/Soln) 40 meq DAILY NGT Last administered on 12/30/16 08:12; Admin Dose 40 MEQ; Start 12/21/16 at 14:30 Guaifenesin (Robitussin Liquid Cup) 100 mg Q6H PRN PO COUGH Last administered on 12/24/16 13:02; Admin Dose 100 MG; Start 12/23/16 at 23:00 Furosemide (Lasix) 40 mg DAILY@06 PO Last administered on 12/29/16 06:29; Admin Dose 40 MG; Start 12/28/16 at 06:00 Polyethylene Glycol (Miralax) 17 gm DAILY NGT Last administered on 12/30/16 08 :11; Admin Dose 17 GM; Start 12/27/16 at 18:00 Insulin Glargine (Lantus) 30 unit DAILY@20 SC Last administered on 12/29/16 22 :44; Admin Dose 30 UNIT; Start 12/28/16 at 20:00 Diagnostic Test (Pha) (Accu-Chek) 1 ea 02 XX ; Start 12/31/16 at 02:00 DANYELLE ROSSI NP Dec 30, 2016 18:08
[2016-12-31] MEDS ORDERED: ACCU-CHEK XX SCH ×2 (02:00)
== END 2016-12-30 18:36 | DRG 280 ==
LOC: ICU 16:55 → TEL 12-21 18:55
PROVIDERS: ADMIT Internal Medicine; ATTEND Internal Medicine
PROC: 5A1955Z Respiratory Ventilation, Greater than 96 Consecutive Hours (ICD-10-PCS; principal; 2016-12-10)
PROC: 4A023N7 Measurement of Cardiac Sampling and Pressure, Left Heart, Percutaneous Approach (ICD-10-PCS; 2016-12-11)
PROC: B2011ZZ Plain Radiography of Multiple Coronary Arteries using Low Osmolar Contrast (ICD-10-PCS; 2016-12-11)
DX: I21.4 Non-ST elevation (NSTEMI) myocardial infarction (principal); G92 Toxic encephalopathy; J96.00 Acute respiratory failure, unspecified whether with hypoxia or hypercapnia; R57.9 Shock, unspecified; J69.0 Pneumonitis due to inhalation of food and vomit; E13.10 Other specified diabetes mellitus with ketoacidosis without coma; J18.9 Pneumonia, unspecified organism; J81.1 Chronic pulmonary edema; I95.9 Hypotension, unspecified; I42.9 Cardiomyopathy, unspecified; B37.41 Candidal cystitis and urethritis; J44.9 Chronic obstructive pulmonary disease, unspecified; E11.40 Type 2 diabetes mellitus with diabetic neuropathy, unspecified; I25.10 Atherosclerotic heart disease of native coronary artery without angina pectoris; Z95.5 Presence of coronary angioplasty implant and graft; Z79.4 Long term (current) use of insulin; E03.9 Hypothyroidism, unspecified; I25.2 Old myocardial infarction; Z72.0 Tobacco use; D64.9 Anemia, unspecified; B85.0 Pediculosis due to Pediculus humanus capitis; N20.0 Calculus of kidney; K81.9 Cholecystitis, unspecified; E87.6 Hypokalemia; F43.20 Adjustment disorder, unspecified; R13.10 Dysphagia, unspecified; D72.829 Elevated white blood cell count, unspecified
CPT/HCPCS: 36600; 71010; 74230; 80048; 80053; 81001; 82803; 82962; 83036; 83735; 84100; 84132; 84484; 85025; 85610; 85730; 87040; 87070; 87081; 87086; 89220; 92526; 92610; 92611; 93306; 93458; 94002; 94003; 94640; 94660; 94664; 94667; 94770; 97003; 97110; 97116; 97162; 97167; 97530; 97535; J1940; C1887; J0692; J1450; J1644; J1815; J2270; J2543; J2765; J3480; J7030; J7040; J7042; J7050; J7060; P9047; Q9967

== ENCOUNTER 2016-12-30 16:23 | Inpatient (IN) | payer OTHER ==
[~2016-12-30] VITALS: Ht 154.9 cm; Wt 58.0 kg
[2016-12-30] MEDS ORDERED: ACETAMINOPHEN 325 MG TAB PO PRN (19:30)
[2016-12-30] MEDS ORDERED: ACETAMINOPHEN 650MG/20.3ML CUP NGT PRN (19:30)
[2016-12-30] MEDS ORDERED: GUAIFENESIN 20 MG/ML 5ML CUP PO PRN (19:30)
[2016-12-30] MEDS ORDERED: AL HYDROX/MG HYDROX/SIMETH 30 ML CUP PO PRN (19:30)
[2016-12-30 20:00] VITALS: BP 97/46; RESP 18
[2016-12-30] MEDS ORDERED: INSULIN GLARGINE [LANtus] 3 ML PEN SC SCH (20:00)
[2016-12-30] MEDS ORDERED: GLUCOSE GEL 15 GRAM TUBE PO PRN ×2 (20:00)
[2016-12-30] MEDS ORDERED: morphine 2 MG INJ IV PRN (20:00)
[2016-12-30] MEDS ORDERED: GLUCAGON 1 MG INJ IM PRN (20:00)
[2016-12-30] MEDS ORDERED: GLUCOSE GEL 15 GRAM TUBE BUCCAL PRN (20:00)
[2016-12-30] MEDS ORDERED: DEXTROSE 50% 50 ML SYRINGE IV PRN ×2 (20:00)
[2016-12-30] MEDS ORDERED: ONDANSETRON 4 MG INJ IV PRN (20:00)
[2016-12-30] MEDS: TICAGRELOR 90 MG TABLET PO SCH (21:00)
[2016-12-30] MEDS: METOPROLOL 25 MG TAB PO SCH (21:00)
[2016-12-30] MEDS: ALBUTEROL/IPRATROPIUM (NEB) 3 ML AMP HHN SCH (21:05)
[2016-12-30] MEDS: GABAPENTIN 300 MG CAP PO SCH (21:45)
[2016-12-30] MEDS: FAMOTIDINE 20 MG TAB PO SCH (21:45)
[2016-12-30] MEDS: ATORVASTATIN 20 MG TAB PO SCH (21:45)
[2016-12-30] MEDS: SENNA/DOCUSATE NA (8.6MG/50MG) TAB NGT SCH (21:45)
[2016-12-30] MEDS: HEPARIN 5,000 UNIT/0.5 ML VIAL SC SCH (22:09)
[2016-12-30] MEDS: INSULIN ASPART [NOVOLOG] 3 ML PEN SC SCH (22:12)
[2016-12-30 23:40] VITALS: Ht 154.9 cm; Wt 58.0 kg
[2016-12-31] MEDS ORDERED: BISACODYL 10 MG SUPP PR PRN (00:30)
[2016-12-31] MEDS ORDERED: LACTULOSE 30ML CUP PO PRN (00:30)
[2016-12-31] MEDS ORDERED: MAGNESIUM HYDROXIDE 30ML CUP PO PRN (00:30)
[2016-12-31 01:21] LABS: ADD UMIC NO; UR ASCORBIC ACID NEGATIVE (NEGATIVE); UR BILIRUBIN (Dip) NEGATIVE (NEGATIVE); UR BLOOD (Dip) NEGATIVE (NEGATIVE); UR CLARITY CLEAR (CLEAR); UR COLOR STRAW (YELLOW); UR GLUCOSE (Dip) 1+ mg/dL (NEGATIVE); UR KETONES (Dip) NEGATIVE (NEGATIVE); UR LEUKOCYTE ESTERASE (Dip) NEGATIVE Leu/ul (NEGATIVE); UR NITRITE (Dip) NEGATIVE (NEGATIVE); UR SPECIFIC GRAVITY (Dip) 1.004 (1.003-1.030); UR TOTAL PROTEIN (Dip) NEGATIVE (NEGATIVE); UR UROBILINOGEN (Dip) NEGATIVE (NEGATIVE)
[2016-12-31] MEDS: ALBUTEROL/IPRATROPIUM (NEB) 3 ML AMP HHN SCH ×4 (02:00→20:57)
[2016-12-31] MEDS ORDERED: FUROSEMIDE 40 MG TAB PO SCH (06:00)
[2016-12-31] MEDS: LEVOTHYROXINE 112 MCG TAB PO SCH (06:38)
[2016-12-31 06:43] VITALS: BP 96/42; PULSE 85; RESP 16
[2016-12-31] MEDS: INSULIN ASPART [NOVOLOG] 3 ML PEN SC SCH ×5 (07:35→21:04)
[2016-12-31 07:42] LABS: ADD SCAN DIFF NO
[2016-12-31 07:43] VITALS: BP 106/53; RESP 18
[2016-12-31 07:44] LABS: BASOPHIL # 0.1 10^3/ul (0.0-0.1); BASOPHILS % 0.9 % (0.0-2.0); EOSINOPHILS # 0.6 10^3/ul (0.0-0.5); EOSINOPHILS % 7.2 % (0.0-7.0); HEMATOCRIT 33.9 % (37.0-47.0); HEMOGLOBIN 10.7 g/dl (12.0-16.0); LYMPHOCYTES # 1.1 10^3/ul (0.8-2.9); LYMPHOCYTES % 13.6 % (15.0-51.0); MEAN CORPUSCULAR HEMOGLOBIN 29.9 pg (29.0-33.0); MEAN CORPUSCULAR HGB CONC 31.6 g/dl (32.0-37.0); MEAN CORPUSCULAR VOLUME 94.7 fl (82.0-101.0); MONOCYTE # 0.8 10^3/ul (0.3-0.9); MONOCYTES % 9.4 % (0.0-11.0); NEUTROPHIL # 5.5 10^3/ul (1.6-7.5); NEUTROPHILS % 67.1 % (39.0-77.0); PLATELET COUNT 437 10^3/UL (140-415); RED BLOOD COUNT 3.58 10^6/ul (4.20-5.40); RED CELL DISTRIBUTION WIDTH 13.9 % (11.5-14.5); WHITE BLOOD COUNT 8.2 10^3/ul (4.8-10.8)
[2016-12-31 08:06] LABS: ALBUMIN 2.9 g/dl (3.3-4.9); BILIRUBIN,INDIRECT 0.3 mg/dl (0-1.1); BILIRUBIN,TOTAL 0.3 mg/dl (0.2-1.3); CALCIUM 9.6 mg/dl (8.4-10.2); CREATININE 0.47 mg/dl (0.44-1.00); POTASSIUM 4.5 mmol/L (3.5-5.1); TOTAL PROTEIN 5.8 g/dl (6.1-8.1)
[2016-12-31] MEDS: LISINOPRIL 5 MG TAB PO SCH (09:00)
[2016-12-31] MEDS: METOPROLOL 25 MG TAB PO SCH ×2 (09:00→20:45)
[2016-12-31] MEDS: DULOXETINE 20 MG CAP DR PO SCH (09:05)
[2016-12-31] MEDS: GABAPENTIN 300 MG CAP PO SCH ×3 (09:05→20:45)
[2016-12-31] MEDS: ASPIRIN (EC) 81 MG TAB PO SCH (09:05)
[2016-12-31] MEDS: POLYETHYLENE GLYCOL 17 GM PACKET NGT SCH (09:05)
[2016-12-31] MEDS: TICAGRELOR 90 MG TABLET PO SCH ×2 (09:17→21:02)
[2016-12-31] MEDS: HEPARIN 5,000 UNIT/0.5 ML VIAL SC SCH ×2 (09:17→21:04)
[2016-12-31] MEDS: POTASSIUM CHLORIDE 20 MEQ POWDER FOR ORAL SOLN NGT SCH (09:45)
[2016-12-31 10:30] VITALS: BP 92/42
--- NOTE | 2016-12-31 11:50 | CONS ---
Date/Time of Note Date/Time of Note DATE: 12/31/16 TIME: 11:42 Assessment/Plan Assessment/Plan Additional Assessment/Plan REHABILITATION POST-ADMISSION PHYSICIAN EVALUATION REHABILITATION IMPAIRMENT CATEGORY: Toxic metabolic encephalopathy ACTIVE COMORBIDITIES: 1. Dysphasia 2. Status post respiratory failure 3. Diabetes mellitus type 2 status post DKA 4. Status post non-ST elevation [place] 5. Ischemic cardiomyopathy 6. Impairments in self-care, mobility and cognition. PLAN: The patient has been admitted for comprehensive interdisciplinary acute rehab and is anticipated to tolerate 3 hours of daily therapy in divided doses for at least 5/7 days a week. The treatment plan will include: 1. Physical therapy to focus on bed mobility, transfers, and household ambulation with the goal of having the patient reach a standby assist at the wheelchair level, minimal assist for ambulation. 2. Occupational therapy to focus on hygiene, grooming, dressing, bathing, and toileting activities with the goal of having the patient reach a standby assist level at the wheelchair level. 3. Speech therapy for full cognitive assessment and retraining in addition to dysphagia management with the goal of having the patient return to baseline cognition and meet nutritional needs by mouth. 4. Rehabilitation nursing for carryover of therapeutic interventions, the goal of continent of bowel and bladder, the goal of pain adequately managed on oral medications. ESTIMATED LENGTH OF STAY: 14 days. DISPOSITION GOAL: Home. Rehabilitation Barrier: Cognition and dysphasia Intervention for barrier: Speech therapy I acknowledge that I performed a full physical examination on this patient within 24 hours of admission to the rehabilitation unit and believe the patient is a good candidate for comprehensive interdisciplinary rehab care and is anticipated to make reasonable goals in a reasonable period of time as outlined above. Consultation Date/Type/Reason Admit Date/Time Dec 30, 2016 at 18:40 Reason for Consultation Rehabilitation post admission physician evaluation Hx of Present Illness Patient is a 56-year-old female with a history of multiple medical comorbidities including diabetes mellitus type 2 who was admitted with altered mental status. Patient was found to be in diabetic ketoacidosis and also to have a non-ST elevation [place]. Patient did require intubation for respiratory failure. Patient was also noted to have right lower lobe pneumonia antibiotics were instituted. Patient was eventually extubated. She has been followed closely by multiple specialists including pulmonology infectious disease and cardiology. Patient noted to have ischemic cardiomyopathy and is recommended to have coronary artery bypass functional status improved. Patient's hospital course also notable for significant dysphasia and initially required NG tube feedings the patient has been progress to dysphagia diet.. Patient has now been cleared to transfer to the rehabilitation unit for conference of interdisciplinary rehab care. Constitutional: No chills, No diaphoresis, No disoriented, No febrile, No improved, No no complaints, No other, No poor po, No requiring IVF, No requiring O2 Eyes: other ENT: other (Patient reports dysphasia) Gastrointestinal: No blood, No constipation, No decreased appetite, No diarrhea , No flatus, No nausea, No no complaints, No other, No pain, No passing stool, No vomiting Genitourinary: No bleeding, No discharge, No dysuria, No flank pain, No hematuria, No no complaints, No other Skin: No bruising, No erythema, No laceration, No no complaints, No other, No pruritis, No rash, No skin lesions Neurologic: confusion Past Medical History Functional history-prior to admission patient was independent in self-care tasks and mobility Currently patient requires moderate assist. I have reviewed the preadmission screen and patient's current functional status is consistent with the preadmission screen Past Surgical History Past Surgical Hx: other Social History Patient lives at home and hopes to return there upon discharge Smoking Status: Former smoker Exam/Review of Systems Vital Signs Vitals Vital Signs Date Time Temp Pulse Resp B/P Pulse Ox O2 Delivery O2 Flow Rate FiO2 12/31/16 09:25 70 16 96 Nasal Cannula 2.0 12/31/16 07:43 98.2 106/53 Intake and Output 12/30/16 12/30/16 12/31/16 15:00 23:00 07:00 Intake Total 100 ml Balance 100 ml Exam Constitutional: alert Head: normocephalic Eyes: other (Disconjugate gaze) ENMT: No intubated, No mucosa pink and moist, No nl external ears & nose, No nl lips & teeth, No nl nasal mucosa & septum, No other, No tympanic membranes Respiratory: No clear to auscultation, No congested cough, No crackles/rales, No diminished breath sounds, No intercostal retraction, No labored breathing, No normal air movement, No other, No respirations, No tactile fremitus, No wheezing Cardiovascular: No S3, No S4, No bruits, No diastolic murmur, No edema, No gallop, No irregular rhythm, No jugular venous distention (JVD), No murmurs/ extra sounds, No nl pulses, No other, No regular rate and rhythm, No rub, No systolic murmur Gastrointestinal: No ascites, No bowel sounds, No distended, No firm, No hepatomegaly, No mass, No nl liver, spleen, No non-tender, No other, No rebound or guarding, No soft, No splenomegaly, No surgical scars, No tender Musculoskeletal: other 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: other (Awake, alert, oriented to person. antigravity strength in bilateral UE and LE, impaired dynamic balance) Skin: diaphoresis, ecchymosis, laceration, nl turgor, other, puncture, rash or lesions Results Result Diagram: 12/31/16 0714 12/31/16 0600 Results 24 hrs Laboratory Tests Test 12/30/16 21:44 12/30/16 23:30 12/31/16 02:12 12/31/16 06:00 Bedside Glucose 292 H 112 Urine Color STRAW Urine Clarity CLEAR Urine pH 7.0 Urine Specific [place] 1.004 Urine Ketones NEGATIVE Urine Nitrite NEGATIVE Urine Bilirubin NEGATIVE Urine Urobilinogen NEGATIVE Urine Leukocyte Esterase NEGATIVE Urine Hemoglobin NEGATIVE Urine Glucose 1+ H Urine Total Protein NEGATIVE Sodium Level 142 Potassium Level 4.5 Chloride Level 97 Carbon Dioxide Level 34 H Anion Gap 16 Blood Urea Nitrogen 5 L Creatinine 0.47 Glucose Level 43 #*L Calcium Level 9.6 Total Bilirubin 0.3 Direct Bilirubin 0.00 Indirect Bilirubin 0.3 Aspartate Amino Transf (AST/SGOT) 37 Alanine Aminotransferase (ALT/SGPT) 38 Alkaline Phosphatase 83 Total Protein 5.8 L Albumin 2.9 L Globulin 2.90 Albumin/Globulin Ratio 1.00 Test 12/31/16 07:14 12/31/16 08:27 12/31/16 09:02 White Blood Count 8.2 Red Blood Count 3.58 L Hemoglobin 10.7 L Hematocrit 33.9 L Mean Corpuscular Volume 94.7 Mean Corpuscular Hemoglobin 29.9 Mean Corpuscular Hemoglobin Concent 31.6 L Red Cell Distribution Width 13.9 Platelet Count 437 H Mean Platelet Volume 10.0 Neutrophils % 67.1 Lymphocytes % 13.6 L Monocytes % 9.4 Eosinophils % 7.2 H Basophils % 0.9 Nucleated Red Blood Cells % 0.0 Neutrophils # 5.5 Lymphocytes # 1.1 Monocytes # 0.8 Eosinophils # 0.6 H Basophils # 0.1 Nucleated Red Blood Cells # 0.0 Bedside Glucose 52 L 106 Medications Medications Current Medications Acetaminophen (Tylenol Liquid) 650 mg Q6H PRN NGT PAIN AND OR ELEVATED TEMP; Start 12/30/16 at 19:30 Acetaminophen (Tylenol Tab) 650 mg Q4H PRN PO NON-CARDIAC PAIN LEVEL (1-3); Start 12/30/16 at 19:30 Al Hydrox/Mg Hydrox/Simethicone (Mag-Al Plus) 30 ml Q4H PRN PO GASTROINTESTINAL UPSET; Start 12/30/16 at 19:30 Aspirin (Halfprin) 81 mg DAILY PO Last administered on 12/31/16 09:05; Admin Dose 81 MG; Start 12/31/16 at 09:00 Atorvastatin Calcium (Lipitor) 20 mg HS PO Last administered on 12/30/16 21:45 ; Admin Dose 20 MG; Start 12/30/16 at 21:00 Senna/Docusate Sodium (Senokot-S) 2 tab HS NGT Last administered on 12/30/16 21:45; Admin Dose 2 TAB; Start 12/30/16 at 21:00 Duloxetine HCl (Cymbalta) 20 mg DAILY PO Last administered on 12/31/16 09:05; Admin Dose 20 MG; Start 12/31/16 at 09:00 Famotidine (Pepcid) 20 mg HS PO Last administered on 12/30/16 21:45; Admin Dose 20 MG; Start 12/30/16 at 21:00 Furosemide (Lasix) 40 mg DAILY@06 PO ; Start 12/31/16 at 06:00 Gabapentin (Neurontin) 300 mg TID PO Last administered on 12/31/16 09:05; Admin Dose 300 MG; Start 12/30/16 at 21:00 Guaifenesin (Robitussin Liquid Cup) 100 mg Q6H PRN PO COUGH; Start 12/30/16 at 19:30 Heparin Sodium (Porcine) (Heparin (5000 Units/0.5 ml)) 5,000 unit BID SC Last administered on 12/31/16 09:17; Admin Dose 5,000 UNIT; Start 12/30/16 at 21:00 Insulin Glargine (Lantus) 30 unit DAILY@20 SC Last administered on 12/30/16 22 :10; Admin Dose 30 UNIT; Start 12/30/16 at 20:00 Levothyroxine Sodium (Synthroid) 112 mcg DAILY@06 PO Last administered on 06:38; Admin Dose 112 MCG; Start 12/31/16 at 06:00 Lisinopril (Zestril) 2.5 mg DAILY PO ; Start 12/31/16 at 09:00 Metoprolol Tartrate (Lopressor) 12.5 mg BID PO ; Start 12/30/16 at 21:00 Morphine Sulfate (morphine) 2 mg Q2H PRN IV FOR NON CARDIAC PAIN (4-10); Start 12/30/16 at 20:00 Ondansetron HCl (Zofran Inj) 4 mg Q4H PRN IV NAUSEA AND/OR VOMITING; Start at 20:00 Polyethylene Glycol (Miralax) 17 gm DAILY NGT Last administered on 12/31/16 09 :05; Admin Dose 17 GM; Start 12/31/16 at 09:00 Potassium Chloride (Potassium Chloride Pwd/Soln) 40 meq DAILY NGT Last administered on 12/31/16 09:45; Admin Dose 40 MEQ; Start 12/31/16 at 09:00 Ticagrelor (Brilinta) 90 mg BID PO Last administered on 12/31/16 09:17; Admin Dose 90 MG; Start 12/30/16 at 21:00 Miscellaneous Information 1 ea NOTE XX ; Start 12/30/16 at 20:00 Glucose (Glutose) 15 gm Q15M PRN PO DECREASED GLUCOSE; Start 12/30/16 at 20:00 Glucose (Glutose) 22.5 gm Q15M PRN PO DECREASED GLUCOSE; Start 12/30/16 at 20: 00 Dextrose (D50w Syringe) 25 ml Q15M PRN IV DECREASED GLUCOSE; Start 12/30/16 at 20:00 Dextrose (D50w Syringe) 50 ml Q15M PRN IV DECREASED GLUCOSE; Start 12/30/16 at 20:00 Glucagon (Glucagen) 1 mg Q15M PRN IM DECREASED GLUCOSE; Start 12/30/16 at 20:00 Glucose (Glutose) 15 gm Q15M PRN BUCCAL DECREASED GLUCOSE; Start 12/30/16 at 20 :00 Bisacodyl (Dulcolax Supp) 10 mg DAILY PRN [place]; Start 12/31/16 at 00 :30 Magnesium Hydroxide (Milk Of Mag) 30 ml BID PRN PO CONSTIPATION; Start at 00:30 Lactulose (Enulose) 20 gm DAILY PRN PO CONSTIPATION; Start 12/31/16 at 00:30 JORGE MESSINA MD Dec 31, 2016 11:50
--- NOTE | 2016-12-31 13:40 | CONS ---
Date/Time of Note Date/Time of Note DATE: 12/31/16 TIME: 13:39 Assessment/Plan Assessment/Plan Chief Complaint/Hosp Course Transferred to acute rehab, alert, looks comfortable, denies pain discomfort Physical examination: Well-developed, older looking 56-year-old woman who is awake in no distress. Head atraumatic normocephalic sclera nonicteric, mucosa pink dry neck is supple chest rise symmetrical breath sounds clear, diminished basis. Heart S1-S2. Abdomen soft bowel tones present. Extremities without cyanosis. Assessment: 1. Status post pneumonia 2. Status post fungal UTI 3. Non-ST elevation [place]/cardiomyopathy with ejection fraction 25% 4. Status post respiratory failure 5. Dysphasia, resolved 6. Head lice status post treatment Plan: Remain stable, off antibiotics, continue anti-aspiration measures. Possible CABG once medically stable Problems: Consultation Date/Type/Reason Admit Date/Time Dec 30, 2016 at 18:40 Initial Consult Date Type of Consultation: id Exam/Review of Systems Vital Signs Vitals Vital Signs Date Time Temp Pulse Resp B/P Pulse Ox O2 Delivery O2 Flow Rate FiO2 12/31/16 09:25 70 16 96 Nasal Cannula 2.0 12/31/16 07:43 98.2 106/53 Intake and Output 12/30/16 12/30/16 12/31/16 15:00 23:00 07:00 Intake Total 100 ml Balance 100 ml Results Result Diagram: 12/31/16 0714 12/31/16 0600 Results 24 hrs Laboratory Tests Test 12/30/16 21:44 12/30/16 23:30 12/31/16 02:12 12/31/16 06:00 Bedside Glucose 292 H 112 Urine Color STRAW Urine Clarity CLEAR Urine pH 7.0 Urine Specific [place] 1.004 Urine Ketones NEGATIVE Urine Nitrite NEGATIVE Urine Bilirubin NEGATIVE Urine Urobilinogen NEGATIVE Urine Leukocyte Esterase NEGATIVE Urine Hemoglobin NEGATIVE Urine Glucose 1+ H Urine Total Protein NEGATIVE Sodium Level 142 Potassium Level 4.5 Chloride Level 97 Carbon Dioxide Level 34 H Anion Gap 16 Blood Urea Nitrogen 5 L Creatinine 0.47 Glucose Level 43 #*L Calcium Level 9.6 Total Bilirubin 0.3 Direct Bilirubin 0.00 Indirect Bilirubin 0.3 Aspartate Amino Transf (AST/SGOT) 37 Alanine Aminotransferase (ALT/SGPT) 38 Alkaline Phosphatase 83 Total Protein 5.8 L Albumin 2.9 L Globulin 2.90 Albumin/Globulin Ratio 1.00 Test 12/31/16 07:14 12/31/16 08:27 12/31/16 09:02 12/31/16 12:06 White Blood Count 8.2 Red Blood Count 3.58 L Hemoglobin 10.7 L Hematocrit 33.9 L Mean Corpuscular Volume 94.7 Mean Corpuscular Hemoglobin 29.9 Mean Corpuscular Hemoglobin Concent 31.6 L Red Cell Distribution Width 13.9 Platelet Count 437 H Mean Platelet Volume 10.0 Neutrophils % 67.1 Lymphocytes % 13.6 L Monocytes % 9.4 Eosinophils % 7.2 H Basophils % 0.9 Nucleated Red Blood Cells % 0.0 Neutrophils # 5.5 Lymphocytes # 1.1 Monocytes # 0.8 Eosinophils # 0.6 H Basophils # 0.1 Nucleated Red Blood Cells # 0.0 Bedside Glucose 52 L 106 409 *H Medications Medications Current Medications Acetaminophen (Tylenol Liquid) 650 mg Q6H PRN NGT PAIN AND OR ELEVATED TEMP; Start 12/30/16 at 19:30 Acetaminophen (Tylenol Tab) 650 mg Q4H PRN PO NON-CARDIAC PAIN LEVEL (1-3); Start 12/30/16 at 19:30 Al Hydrox/Mg Hydrox/Simethicone (Mag-Al Plus) 30 ml Q4H PRN PO GASTROINTESTINAL UPSET; Start 12/30/16 at 19:30 Aspirin (Halfprin) 81 mg DAILY PO Last administered on 12/31/16 09:05; Admin Dose 81 MG; Start 12/31/16 at 09:00 Atorvastatin Calcium (Lipitor) 20 mg HS PO Last administered on 12/30/16 21:45 ; Admin Dose 20 MG; Start 12/30/16 at 21:00 Senna/Docusate Sodium (Senokot-S) 2 tab HS NGT Last administered on 12/30/16 21:45; Admin Dose 2 TAB; Start 12/30/16 at 21:00 Duloxetine HCl (Cymbalta) 20 mg DAILY PO Last administered on 12/31/16 09:05; Admin Dose 20 MG; Start 12/31/16 at 09:00 Famotidine (Pepcid) 20 mg HS PO Last administered on 12/30/16 21:45; Admin Dose 20 MG; Start 12/30/16 at 21:00 Furosemide (Lasix) 40 mg DAILY@06 PO ; Start 12/31/16 at 06:00 Gabapentin (Neurontin) 300 mg TID PO Last administered on 12/31/16 12:13; Admin Dose 300 MG; Start 12/30/16 at 21:00 Guaifenesin (Robitussin Liquid Cup) 100 mg Q6H PRN PO COUGH; Start 12/30/16 at 19:30 Heparin Sodium (Porcine) (Heparin (5000 Units/0.5 ml)) 5,000 unit BID SC Last administered on 12/31/16 09:17; Admin Dose 5,000 UNIT; Start 12/30/16 at 21:00 Insulin Glargine (Lantus) 30 unit DAILY@20 SC Last administered on 12/30/16 22 :10; Admin Dose 30 UNIT; Start 12/30/16 at 20:00 Levothyroxine Sodium (Synthroid) 112 mcg DAILY@06 PO Last administered on 06:38; Admin Dose 112 MCG; Start 12/31/16 at 06:00 Lisinopril (Zestril) 2.5 mg DAILY PO ; Start 12/31/16 at 09:00 Metoprolol Tartrate (Lopressor) 12.5 mg BID PO ; Start 12/30/16 at 21:00 Morphine Sulfate (morphine) 2 mg Q2H PRN IV FOR NON CARDIAC PAIN (4-10); Start 12/30/16 at 20:00 Ondansetron HCl (Zofran Inj) 4 mg Q4H PRN IV NAUSEA AND/OR VOMITING; Start at 20:00 Polyethylene Glycol (Miralax) 17 gm DAILY NGT Last administered on 12/31/16 09 :05; Admin Dose 17 GM; Start 12/31/16 at 09:00 Potassium Chloride (Potassium Chloride Pwd/Soln) 40 meq DAILY NGT Last administered on 12/31/16 09:45; Admin Dose 40 MEQ; Start 12/31/16 at 09:00 Ticagrelor (Brilinta) 90 mg BID PO Last administered on 12/31/16 09:17; Admin Dose 90 MG; Start 12/30/16 at 21:00 Miscellaneous Information 1 ea NOTE XX ; Start 12/30/16 at 20:00 Glucose (Glutose) 15 gm Q15M PRN PO DECREASED GLUCOSE; Start 12/30/16 at 20:00 Glucose (Glutose) 22.5 gm Q15M PRN PO DECREASED GLUCOSE; Start 12/30/16 at 20: 00 Dextrose (D50w Syringe) 25 ml Q15M PRN IV DECREASED GLUCOSE; Start 12/30/16 at 20:00 Dextrose (D50w Syringe) 50 ml Q15M PRN IV DECREASED GLUCOSE; Start 12/30/16 at 20:00 Glucagon (Glucagen) 1 mg Q15M PRN IM DECREASED GLUCOSE; Start 12/30/16 at 20:00 Glucose (Glutose) 15 gm Q15M PRN BUCCAL DECREASED GLUCOSE; Start 12/30/16 at 20 :00 Bisacodyl (Dulcolax Supp) 10 mg DAILY PRN [place] CONSTIPATION; Start 12/31/16 at 00 :30 Magnesium Hydroxide (Milk Of Mag) 30 ml BID PRN PO CONSTIPATION; Start at 00:30 Lactulose (Enulose) 20 gm DAILY PRN PO CONSTIPATION; Start 12/31/16 at 00:30 DANYELLE ROSSI NP Dec 31, 2016 13:40 DANYELLE ROSSI NP Dec 31, 2016 13:40
--- NOTE | 2016-12-31 14:02 | CONS ---
Date/Time of Note Date/Time of Note DATE: 12/31/16 TIME: 13:58 Assessment/Plan Assessment/Plan Chief Complaint/Hosp Course IMP: 1.NSTEMI-peak trop>60 Now dowtrended significantly s/p LHC with patent RCA stents and high grade disease of LAD/LCX with small caliber vessels and recc for CABG. Still ongoing surgical eval and question date of possible surgery? 2.cardiomyopathy-LVEF 40-45 BY OSH echo. 25% by echo read here 3.Hypotension-improved off of pressors with some lability and holding of anti- hypertenives at times 4.resp failure s/p extubation requiring PRN BIPAP which has now improved and not requiring further at this time 5.anemia 6. AMS/encephalopathy 7. PNA 8. COPD 9. Hypothyroid 10.DM-very labile BS Recc: -Now transferred to acute rehab -Follow BP closely and continue low dose BB/ACEI as tolerated only -Continue asa/brilinta -Continue statin -Follow volume status closely and continue will hold lasix x 1-2 days given low BP with PT/with standing -Smoking cessation -Follow BS closely and adjust insulin therapy as necesarry -Continue abx's and f/u cx data -Continue bronchodilators -CT surgical eval ongoing and have discussed with daughter who is agreeable and CT surgery following with pnding date of surgery? Problems: Consultation Date/Type/Reason Admit Date/Time Dec 30, 2016 at 18:40 Initial Consult Date 12/30/2016 Type of Consultation: cardiology Reason for Consultation nstemi/cadiomyopathy Referring Provider: GRIFFIN CHEW Exam/Review of Systems Vital Signs Vitals Vital Signs Date Time Temp Pulse Resp B/P Pulse Ox O2 Delivery O2 Flow Rate FiO2 12/31/16 09:25 70 16 96 Nasal Cannula 2.0 12/31/16 07:43 98.2 106/53 Intake and Output 12/30/16 12/30/16 12/31/16 15:00 23:00 07:00 Intake Total 100 ml Balance 100 ml Exam Review of Systems: CONSTITUTIONAL: No fevers, chills. PULMONARY: No sob CARDIOVASCULAR: No chest pain/palpitations GASTROINTESTINAL: No nausea/vomiting. GENITOURINARY: No hematuria/dysuria. MUSCULOSKELETAL: No myagias/arthalgias. PSYCHIATRIC: The patient denies depression. NEUROLOGIC: mildly lethargic Constitutional: alert, oriented Psych: no complaints Head: normocephalic ENMT: mucosa pink and moist Neck: jvd (8 cm water), supple Respiratory: other (fair air movement) Cardiovascular: regular rate and rhythm Gastrointestinal: non-tender, soft Musculoskeletal: muscle weakness (mild generalized) Extremities: edema (none) 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: lethargic Results Result Diagram: 12/31/16 0714 12/31/16 0600 Results 24 hrs Laboratory Tests Test 12/30/16 21:44 12/30/16 23:30 12/31/16 02:12 12/31/16 06:00 Bedside Glucose 292 H 112 Urine Color STRAW Urine Clarity CLEAR Urine pH 7.0 Urine Specific [place] 1.004 Urine Ketones NEGATIVE Urine Nitrite NEGATIVE Urine Bilirubin NEGATIVE Urine Urobilinogen NEGATIVE Urine Leukocyte Esterase NEGATIVE Urine Hemoglobin NEGATIVE Urine Glucose 1+ H Urine Total Protein NEGATIVE Sodium Level 142 Potassium Level 4.5 Chloride Level 97 Carbon Dioxide Level 34 H Anion Gap 16 Blood Urea Nitrogen 5 L Creatinine 0.47 Glucose Level 43 #*L Calcium Level 9.6 Total Bilirubin 0.3 Direct Bilirubin 0.00 Indirect Bilirubin 0.3 Aspartate Amino Transf (AST/SGOT) 37 Alanine Aminotransferase (ALT/SGPT) 38 Alkaline Phosphatase 83 Total Protein 5.8 L Albumin 2.9 L Globulin 2.90 Albumin/Globulin Ratio 1.00 Test 12/31/16 07:14 12/31/16 08:27 12/31/16 09:02 12/31/16 12:06 White Blood Count 8.2 Red Blood Count 3.58 L Hemoglobin 10.7 L Hematocrit 33.9 L Mean Corpuscular Volume 94.7 Mean Corpuscular Hemoglobin 29.9 Mean Corpuscular Hemoglobin Concent 31.6 L Red Cell Distribution Width 13.9 Platelet Count 437 H Mean Platelet Volume 10.0 Neutrophils % 67.1 Lymphocytes % 13.6 L Monocytes % 9.4 Eosinophils % 7.2 H Basophils % 0.9 Nucleated Red Blood Cells % 0.0 Neutrophils # 5.5 Lymphocytes # 1.1 Monocytes # 0.8 Eosinophils # 0.6 H Basophils # 0.1 Nucleated Red Blood Cells # 0.0 Bedside Glucose 52 L 106 409 *H Medications Medications Current Medications Acetaminophen (Tylenol Liquid) 650 mg Q6H PRN NGT PAIN AND OR ELEVATED TEMP; Start 7/18/17 at 19:30 Acetaminophen (Tylenol Tab) 650 mg Q4H PRN PO NON-CARDIAC PAIN LEVEL (1-3); Start 12/30/16 at 19:30 Al Hydrox/Mg Hydrox/Simethicone (Mag-Al Plus) 30 ml Q4H PRN PO GASTROINTESTINAL UPSET; Start 12/30/16 at 19:30 Aspirin (Halfprin) 81 mg DAILY PO Last administered on 12/31/16 09:05; Admin Dose 81 MG; Start 12/31/16 at 09:00 Atorvastatin Calcium (Lipitor) 20 mg HS PO Last administered on 12/30/16 21:45 ; Admin Dose 20 MG; Start 12/30/16 at 21:00 Senna/Docusate Sodium (Senokot-S) 2 tab HS NGT Last administered on 12/30/16 21:45; Admin Dose 2 TAB; Start 12/30/16 at 21:00 Duloxetine HCl (Cymbalta) 20 mg DAILY PO Last administered on 12/31/16 09:05; Admin Dose 20 MG; Start 12/31/16 at 09:00 Famotidine (Pepcid) 20 mg HS PO Last administered on 12/30/16 21:45; Admin Dose 20 MG; Start 12/30/16 at 21:00 Furosemide (Lasix) 40 mg DAILY@06 PO ; Start 12/31/16 at 06:00 Gabapentin (Neurontin) 300 mg TID PO Last administered on 12/31/16 12:13; Admin Dose 300 MG; Start 12/30/16 at 21:00 Guaifenesin (Robitussin Liquid Cup) 100 mg Q6H PRN PO COUGH; Start 12/30/16 at 19:30 Heparin Sodium (Porcine) (Heparin (5000 Units/0.5 ml)) 5,000 unit BID SC Last administered on 12/31/16 09:17; Admin Dose 5,000 UNIT; Start 12/30/16 at 21:00 Insulin Glargine (Lantus) 30 unit DAILY@20 SC Last administered on 12/30/16 22 :10; Admin Dose 30 UNIT; Start 12/30/16 at 20:00 Levothyroxine Sodium (Synthroid) 112 mcg DAILY@06 PO Last administered on 06:38; Admin Dose 112 MCG; Start 12/31/16 at 06:00 Lisinopril (Zestril) 2.5 mg DAILY PO ; Start 12/31/16 at 09:00 Metoprolol Tartrate (Lopressor) 12.5 mg BID PO ; Start 12/30/16 at 21:00 Morphine Sulfate (morphine) 2 mg Q2H PRN IV FOR NON CARDIAC PAIN (4-10); Start 12/30/16 at 20:00 Ondansetron HCl (Zofran Inj) 4 mg Q4H PRN IV NAUSEA AND/OR VOMITING; Start at 20:00 Polyethylene Glycol (Miralax) 17 gm DAILY NGT Last administered on 12/31/16 09 :05; Admin Dose 17 GM; Start 12/31/16 at 09:00 Potassium Chloride (Potassium Chloride Pwd/Soln) 40 meq DAILY NGT Last administered on 12/31/16 09:45; Admin Dose 40 MEQ; Start 12/31/16 at 09:00 Ticagrelor (Brilinta) 90 mg BID PO Last administered on 12/31/16 09:17; Admin Dose 90 MG; Start 12/30/16 at 21:00 Miscellaneous Information 1 ea NOTE XX ; Start 12/30/16 at 20:00 Glucose (Glutose) 15 gm Q15M PRN PO DECREASED GLUCOSE; Start 12/30/16 at 20:00 Glucose (Glutose) 22.5 gm Q15M PRN PO DECREASED GLUCOSE; Start 12/30/16 at 20: 00 Dextrose (D50w Syringe) 25 ml Q15M PRN IV DECREASED GLUCOSE; Start 12/30/16 at 20:00 Dextrose (D50w Syringe) 50 ml Q15M PRN IV DECREASED GLUCOSE; Start 12/30/16 at 20:00 Glucagon (Glucagen) 1 mg Q15M PRN IM DECREASED GLUCOSE; Start 12/30/16 at 20:00 Glucose (Glutose) 15 gm Q15M PRN BUCCAL DECREASED GLUCOSE; Start 12/30/16 at 20 :00 Bisacodyl (Dulcolax Supp) 10 mg DAILY PRN [place] CONSTIPATION; Start 12/31/16 at 00 :30 Magnesium Hydroxide (Milk Of Mag) 30 ml BID PRN PO CONSTIPATION; Start 7/19/ 17 at 00:30 Lactulose (Enulose) 20 gm DAILY PRN PO CONSTIPATION; Start 12/31/16 at 00:30 RHONDA PENA Dec 31, 2016 14:02
--- NOTE | 2016-12-31 14:58 | CONS ---
Date/Time of Note Date/Time of Note DATE: 12/31/16 TIME: 14:56 Consult Date/Type/Reason Admit Date/Time Dec 30, 2016 at 18:40 Initial Consult Date Type of Consultation: Internal medicine Ordering Provider: GRIFFIN CHEW Subjective Patient stable following transfer from acute care to rehab awake alert this morning Objective Vital Signs Date Time Temp Pulse Resp B/P Pulse Ox O2 Delivery O2 Flow Rate FiO2 12/31/16 14:36 75 17 95 21 12/31/16 10:30 92/42 12/31/16 09:25 Nasal Cannula 2.0 12/31/16 07:43 98.2 Intake and Output 12/30/16 12/30/16 12/31/16 15:00 23:00 07:00 Intake Total 100 ml Balance 100 ml Exam GENERAL: Elderly lady comfortable at rest no acute distress VITAL SIGNS: per chart NECK: Supple. No JVD or lymphadenopathy. CARDIAC EXAM: S1, S2. No added sounds or murmurs. CHEST: clear bilaterally, No added sounds, rales or wheezes ABDOMEN: Soft, nontender. No guarding or rebound. EXTREMITIES: No cyanosis, clubbing or edema. NEUROLOGIC: Generalized weakness. No focal deficits. Results/Medications Result Diagram: 12/31/16 0714 12/31/16 0600 Results 24 hrs Laboratory Tests Test 12/30/16 21:44 12/30/16 23:30 12/31/16 02:12 12/31/16 06:00 Bedside Glucose 292 H 112 Urine Color STRAW Urine Clarity CLEAR Urine pH 7.0 Urine Specific [place] 1.004 Urine Ketones NEGATIVE Urine Nitrite NEGATIVE Urine Bilirubin NEGATIVE Urine Urobilinogen NEGATIVE Urine Leukocyte Esterase NEGATIVE Urine Hemoglobin NEGATIVE Urine Glucose 1+ H Urine Total Protein NEGATIVE Sodium Level 142 Potassium Level 4.5 Chloride Level 97 Carbon Dioxide Level 34 H Anion Gap 16 Blood Urea Nitrogen 5 L Creatinine 0.47 Glucose Level 43 #*L Calcium Level 9.6 Total Bilirubin 0.3 Direct Bilirubin 0.00 Indirect Bilirubin 0.3 Aspartate Amino Transf (AST/SGOT) 37 Alanine Aminotransferase (ALT/SGPT) 38 Alkaline Phosphatase 83 Total Protein 5.8 L Albumin 2.9 L Globulin 2.90 Albumin/Globulin Ratio 1.00 Test 12/31/16 07:14 12/31/16 08:27 12/31/16 09:02 12/31/16 12:06 White Blood Count 8.2 Red Blood Count 3.58 L Hemoglobin 10.7 L Hematocrit 33.9 L Mean Corpuscular Volume 94.7 Mean Corpuscular Hemoglobin 29.9 Mean Corpuscular Hemoglobin Concent 31.6 L Red Cell Distribution Width 13.9 Platelet Count 437 H Mean Platelet Volume 10.0 Neutrophils % 67.1 Lymphocytes % 13.6 L Monocytes % 9.4 Eosinophils % 7.2 H Basophils % 0.9 Nucleated Red Blood Cells % 0.0 Neutrophils # 5.5 Lymphocytes # 1.1 Monocytes # 0.8 Eosinophils # 0.6 H Basophils # 0.1 Nucleated Red Blood Cells # 0.0 Bedside Glucose 52 L 106 409 *H Medications Current Medications Acetaminophen (Tylenol Liquid) 650 mg Q6H PRN NGT PAIN AND OR ELEVATED TEMP; Start 12/30/16 at 19:30 Acetaminophen (Tylenol Tab) 650 mg Q4H PRN PO NON-CARDIAC PAIN LEVEL (1-3); Start 12/30/16 at 19:30 Al Hydrox/Mg Hydrox/Simethicone (Mag-Al Plus) 30 ml Q4H PRN PO GASTROINTESTINAL UPSET; Start 12/30/16 at 19:30 Aspirin (Halfprin) 81 mg DAILY PO Last administered on 12/31/16 09:05; Admin Dose 81 MG; Start 12/31/16 at 09:00 Atorvastatin Calcium (Lipitor) 20 mg HS PO Last administered on 12/30/16 21:45 ; Admin Dose 20 MG; Start 12/30/16 at 21:00 Senna/Docusate Sodium (Senokot-S) 2 tab HS NGT Last administered on 12/30/16 21:45; Admin Dose 2 TAB; Start 12/30/16 at 21:00 Duloxetine HCl (Cymbalta) 20 mg DAILY PO Last administered on 12/31/16 09:05; Admin Dose 20 MG; Start 12/31/16 at 09:00 Famotidine (Pepcid) 20 mg HS PO Last administered on 12/30/16 21:45; Admin Dose 20 MG; Start 12/30/16 at 21:00 Furosemide (Lasix) 40 mg DAILY@06 PO ; Start 12/31/16 at 06:00; Status Future Hold Gabapentin (Neurontin) 300 mg TID PO Last administered on 12/31/16 12:13; Admin Dose 300 MG; Start 12/30/16 at 21:00 Guaifenesin (Robitussin Liquid Cup) 100 mg Q6H PRN PO COUGH; Start 12/30/16 at 19:30 Heparin Sodium (Porcine) (Heparin (5000 Units/0.5 ml)) 5,000 unit BID SC Last administered on 12/31/16 09:17; Admin Dose 5,000 UNIT; Start 12/30/16 at 21:00 Insulin Glargine (Lantus) 30 unit DAILY@20 SC Last administered on 12/30/16 22 :10; Admin Dose 30 UNIT; Start 12/30/16 at 20:00 Levothyroxine Sodium (Synthroid) 112 mcg DAILY@06 PO Last administered on 06:38; Admin Dose 112 MCG; Start 12/31/16 at 06:00 Lisinopril (Zestril) 2.5 mg DAILY PO ; Start 12/31/16 at 09:00 Metoprolol Tartrate (Lopressor) 12.5 mg BID PO ; Start 12/30/16 at 21:00 Morphine Sulfate (morphine) 2 mg Q2H PRN IV FOR NON CARDIAC PAIN (4-10); Start 12/30/16 at 20:00 Ondansetron HCl (Zofran Inj) 4 mg Q4H PRN IV NAUSEA AND/OR VOMITING; Start at 20:00 Polyethylene Glycol (Miralax) 17 gm DAILY NGT Last administered on 12/31/16 09 :05; Admin Dose 17 GM; Start 12/31/16 at 09:00 Potassium Chloride (Potassium Chloride Pwd/Soln) 40 meq DAILY NGT Last administered on 12/31/16 09:45; Admin Dose 40 MEQ; Start 12/31/16 at 09:00 Ticagrelor (Brilinta) 90 mg BID PO Last administered on 12/31/16 09:17; Admin Dose 90 MG; Start 12/30/16 at 21:00 Miscellaneous Information 1 ea NOTE XX ; Start 12/30/16 at 20:00 Glucose (Glutose) 15 gm Q15M PRN PO DECREASED GLUCOSE; Start 12/30/16 at 20:00 Glucose (Glutose) 22.5 gm Q15M PRN PO DECREASED GLUCOSE; Start 12/30/16 at 20: 00 Dextrose (D50w Syringe) 25 ml Q15M PRN IV DECREASED GLUCOSE; Start 12/30/16 at 20:00 Dextrose (D50w Syringe) 50 ml Q15M PRN IV DECREASED GLUCOSE; Start 12/30/16 at 20:00 Glucagon (Glucagen) 1 mg Q15M PRN IM DECREASED GLUCOSE; Start 12/30/16 at 20:00 Glucose (Glutose) 15 gm Q15M PRN BUCCAL DECREASED GLUCOSE; Start 12/30/16 at 20 :00 Bisacodyl (Dulcolax Supp) [address] CONSTIPATION; Start 12/31/16 at 00 :30 Magnesium Hydroxide (Milk Of Mag) 30 ml BID PRN PO CONSTIPATION; Start at 00:30 Lactulose (Enulose) 20 gm DAILY PRN PO CONSTIPATION; Start 12/31/16 at 00:30 Assessment/Plan Chief Complaint/Hosp Course Assessment 1. Non-ST elevation [place] with multivessel coronary artery disease on coronary angiogram. Pending coronary artery bypass graft surgery when clinically improved 2. History of COPD currently stable 3. Status post pneumonia resolved 4. Dysphagia with possible Underlying neck mass 5. Significant deconditioning Plan 1. Continue cardiac recommendations JAXON beta-enmanuel and aspirin and Brilinta 2. Continue bronchodilators 3. Physical therapy and Occupational Therapy 4. Preoperative pulmonary function tests when more stable 5. Advance of smoking cessation 6. Tight glycemic management 7. CT neck and ENT evaluation Problems: STEFANI GONZALES MD, [facility] Dec 31, 2016 14:58
[2016-12-31 15:51] VITALS: BP 114/56
[2016-12-31 19:56] VITALS: BP 99/49; RESP 18
[2016-12-31] MEDS: SENNA/DOCUSATE NA (8.6MG/50MG) TAB NGT SCH (20:45)
[2016-12-31] MEDS: FAMOTIDINE 20 MG TAB PO SCH (20:45)
[2016-12-31] MEDS: ATORVASTATIN 20 MG TAB PO SCH (20:45)
[2016-12-31] MEDS: INSULIN GLARGINE [LANtus] 3 ML PEN SC SCH (21:00)
[2017-01-01] MEDS: ALBUTEROL/IPRATROPIUM (NEB) 3 ML AMP HHN SCH ×4 (01:34→21:33)
[2017-01-01 02:00] VITALS: BP 114/56; RESP 18
[2017-01-01] MEDS: LEVOTHYROXINE 112 MCG TAB PO SCH (06:15)
[2017-01-01 07:30] VITALS: BP 102/51; RESP 18
[2017-01-01] MEDS: INSULIN ASPART [NOVOLOG] 3 ML PEN SC SCH ×7 (08:25→21:00)
[2017-01-01] MEDS: POLYETHYLENE GLYCOL 17 GM PACKET NGT SCH (08:57)
[2017-01-01] MEDS: DULOXETINE 20 MG CAP DR PO SCH (08:57)
[2017-01-01] MEDS: METOPROLOL 25 MG TAB PO SCH ×2 (09:00→21:00)
[2017-01-01] MEDS: LISINOPRIL 5 MG TAB PO SCH (09:00)
[2017-01-01] MEDS: TICAGRELOR 90 MG TABLET PO SCH ×2 (09:01→21:09)
[2017-01-01] MEDS: HEPARIN 5,000 UNIT/0.5 ML VIAL SC SCH ×2 (09:02→21:09)
[2017-01-01] MEDS: ASPIRIN (EC) 81 MG TAB PO SCH (09:04)
[2017-01-01] MEDS: GABAPENTIN 300 MG CAP PO SCH ×3 (09:05→21:07)
[2017-01-01] MEDS: POTASSIUM CHLORIDE 20 MEQ POWDER FOR ORAL SOLN NGT SCH (09:09)
--- NOTE | 2017-01-01 11:24 | CONS ---
Date/Time of Note Date/Time of Note DATE: 01/01/17 TIME: 11:24 Consult Date/Type/Reason Admit Date/Time Dec 30, 2016 at 18:40 Initial Consult Date Type of Consultation: Internal medicine Ordering Provider: GRIFFIN CHEW Objective Vital Signs Date Time Temp Pulse Resp B/P Pulse Ox O2 Delivery O2 Flow Rate FiO2 01/01/17 07:30 98.1 82 18 102/51 97 01/01/17 07:13 21 12/31/16 20:00 Nasal Cannula 2.0 Intake and Output 12/31/16 12/31/16 01/01/17 15:00 23:00 07:00 Intake Total 720 ml 560 ml Output Total 750 ml 200 ml Balance -30 ml 360 ml Results/Medications Result Diagram: 12/31/16 0714 12/31/16 0600 Results 24 hrs Laboratory Tests Test 12/31/16 12:06 12/31/16 17:13 12/31/16 18:03 12/31/16 20:44 Bedside Glucose 409 *H 389 H 380 H 248 H Test 01/01/17 02:05 01/01/17 08:07 Bedside Glucose 225 H 115 Medications Current Medications Acetaminophen (Tylenol Liquid) 650 mg Q6H PRN NGT PAIN AND OR ELEVATED TEMP; Start 12/30/16 at 19:30 Acetaminophen (Tylenol Tab) 650 mg Q4H PRN PO NON-CARDIAC PAIN LEVEL (1-3); Start 12/30/16 at 19:30 Al Hydrox/Mg Hydrox/Simethicone (Mag-Al Plus) 30 ml Q4H PRN PO GASTROINTESTINAL UPSET; Start 12/30/16 at 19:30 Aspirin (Halfprin) 81 mg DAILY PO Last administered on 01/01/17 09:04; Admin Dose 81 MG; Start 12/31/16 at 09:00 Atorvastatin Calcium (Lipitor) 20 mg HS PO Last administered on 12/31/16 20:45 ; Admin Dose 20 MG; Start 12/30/16 at 21:00 Senna/Docusate Sodium (Senokot-S) 2 tab HS NGT Last administered on 12/31/16 20:45; Admin Dose 2 TAB; Start 12/30/16 at 21:00 Duloxetine HCl (Cymbalta) 20 mg DAILY PO Last administered on 01/01/17 08:57; Admin Dose 20 MG; Start 12/31/16 at 09:00 Famotidine (Pepcid) 20 mg HS PO Last administered on 12/31/16 20:45; Admin Dose 20 MG; Start 12/30/16 at 21:00 Furosemide (Lasix) 40 mg DAILY@06 PO ; Start 12/31/16 at 06:00; Status Future Hold Gabapentin (Neurontin) 300 mg TID PO Last administered on 01/01/17 09:05; Admin Dose 300 MG; Start 12/30/16 at 21:00 Guaifenesin (Robitussin Liquid Cup) 100 mg Q6H PRN PO COUGH; Start 12/30/16 at 19:30 Heparin Sodium (Porcine) (Heparin (5000 Units/0.5 ml)) 5,000 unit BID SC Last administered on 01/01/17 09:02; Admin Dose 5,000 UNIT; Start 12/30/16 at 21:00 Levothyroxine Sodium (Synthroid) 112 mcg DAILY@06 PO Last administered on 06:15; Admin Dose 112 MCG; Start 12/31/16 at 06:00 Lisinopril (Zestril) 2.5 mg DAILY PO ; Start 12/31/16 at 09:00 Metoprolol Tartrate (Lopressor) 12.5 mg BID PO ; Start 12/30/16 at 21:00 Morphine Sulfate (morphine) 2 mg Q2H PRN IV FOR NON CARDIAC PAIN (4-10); Start 12/30/16 at 20:00 Ondansetron HCl (Zofran Inj) 4 mg Q4H PRN IV NAUSEA AND/OR VOMITING; Start at 20:00 Polyethylene Glycol (Miralax) 17 gm DAILY NGT Last administered on 01/01/17 08 :57; Admin Dose 17 GM; Start 12/31/16 at 09:00 Potassium Chloride (Potassium Chloride Pwd/Soln) 40 meq DAILY NGT Last administered on 01/01/17 09:09; Admin Dose 40 MEQ; Start 12/31/16 at 09:00 Ticagrelor (Brilinta) 90 mg BID PO Last administered on 01/01/17 09:01; Admin Dose 90 MG; Start 12/30/16 at 21:00 Miscellaneous Information 1 ea NOTE XX ; Start 12/30/16 at 20:00 Glucose (Glutose) 15 gm Q15M PRN PO DECREASED GLUCOSE; Start 12/30/16 at 20:00 Glucose (Glutose) 22.5 gm Q15M PRN PO DECREASED GLUCOSE; Start 12/30/16 at 20: 00 Dextrose (D50w Syringe) 25 ml Q15M PRN IV DECREASED GLUCOSE; Start 12/30/16 at 20:00 Dextrose (D50w Syringe) 50 ml Q15M PRN IV DECREASED GLUCOSE; Start 12/30/16 at 20:00 Glucagon (Glucagen) 1 mg Q15M PRN IM DECREASED GLUCOSE; Start 12/30/16 at 20:00 Glucose (Glutose) 15 gm Q15M PRN BUCCAL DECREASED GLUCOSE; Start 12/30/16 at 20 :00 Bisacodyl (Dulcolax Supp) 10 mg DAILY PRN [place] CONSTIPATION; Start 12/31/16 at 00 :30 Magnesium Hydroxide (Milk Of Mag) 30 ml BID PRN PO CONSTIPATION; Start at 00:30 Lactulose (Enulose) 20 gm DAILY PRN PO CONSTIPATION; Start 12/31/16 at 00:30 Insulin Glargine (Lantus) 15 unit DAILY@20 SC Last administered on 12/31/16t 21 :00; Admin Dose 15 UNIT; Start 12/31/16 at 20:00 Assessment/Plan Chief Complaint/Hosp Course Patient is a 56-year-old female with a history of multiple medical comorbidities including diabetes mellitus type 2 who was admitted with altered mental status. Patient was found to be in diabetic ketoacidosis and also to have a non-ST elevation [place]. Patient did require intubation for respiratory failure. Patient was also noted to have right lower lobe pneumonia antibiotics were instituted. Patient was eventually extubated. She has been followed closely by multiple specialists including pulmonology infectious disease and cardiology. Patient noted to have ischemic cardiomyopathy and is recommended to have coronary artery bypass functional status improved. Patient's hospital course also notable for significant dysphasia and initially required NG tube feedings the patient has been progress to dysphagia diet.. Patient has now been cleared to transfer to the rehabilitation unit for conference of interdisciplinary rehab care. Problems: JORGE MESSINA MD Jan 01, 2017 11:24
--- NOTE | 2017-01-01 11:54 | CONS ---
Date/Time of Note Date/Time of Note DATE: 01/01/17 TIME: 11:53 Consult Date/Type/Reason Admit Date/Time Dec 30, 2016 at 18:40 Type of Consultation: Internal medicine Ordering Provider: GRIFFIN CHEW Subjective Patient doing okay this morning no new events she knows she has a contrast allergy and therefore CT with contrast has been held. Objective Vital Signs Date Time Temp Pulse Resp B/P Pulse Ox O2 Delivery O2 Flow Rate FiO2 01/01/17 08:25 Nasal Cannula 2.0 01/01/17 07:30 98.1 82 18 102/51 97 01/01/17 07:13 21 Intake and Output 12/31/16 12/31/16 01/01/17 14:59 22:59 06:59 Intake Total 720 ml 560 ml Output Total 750 ml 200 ml Balance -30 ml 360 ml Exam GENERAL: Elderly lady comfortable at rest no acute distress VITAL SIGNS: per chart NECK: Supple. No JVD or lymphadenopathy. CARDIAC EXAM: S1, S2. No added sounds or murmurs. CHEST: clear bilaterally, No added sounds, rales or wheezes ABDOMEN: Soft, nontender. No guarding or rebound. EXTREMITIES: No cyanosis, clubbing or edema. NEUROLOGIC: Generalized weakness. No focal deficits. Results/Medications Result Diagram: 12/31/16 0714 12/31/16 0600 Results 24 hrs Laboratory Tests Test 12/31/16 12:06 12/31/16 17:13 12/31/16 18:03 12/31/16 20:44 Bedside Glucose 409 *H 389 H 380 H 248 H Test 01/01/17 02:05 01/01/17 08:07 Bedside Glucose 225 H 115 Medications Current Medications Acetaminophen (Tylenol Liquid) 650 mg Q6H PRN NGT PAIN AND OR ELEVATED TEMP; Start 12/30/16 at 19:30 Acetaminophen (Tylenol Tab) 650 mg Q4H PRN PO NON-CARDIAC PAIN LEVEL (1-3); Start 12/30/16 at 19:30 Al Hydrox/Mg Hydrox/Simethicone (Mag-Al Plus) 30 ml Q4H PRN PO GASTROINTESTINAL UPSET; Start 12/30/16 at 19:30 Aspirin (Halfprin) 81 mg DAILY PO Last administered on 01/01/17t 09:04; Admin Dose 81 MG; Start 12/31/16 at 09:00 Atorvastatin Calcium (Lipitor) 20 mg HS PO Last administered on 12/31/16 20:45 ; Admin Dose 20 MG; Start 12/30/16 at 21:00 Senna/Docusate Sodium (Senokot-S) 2 tab HS NGT Last administered on 12/31/16 20:45; Admin Dose 2 TAB; Start 12/30/16 at 21:00 Duloxetine HCl (Cymbalta) 20 mg DAILY PO Last administered on 01/01/17 08:57; Admin Dose 20 MG; Start 12/31/16 at 09:00 Famotidine (Pepcid) 20 mg HS PO Last administered on 12/31/16 20:45; Admin Dose 20 MG; Start 12/30/16 at 21:00 Furosemide (Lasix) 40 mg DAILY@06 PO ; Start 12/31/16 at 06:00; Status Future Hold Gabapentin (Neurontin) 300 mg TID PO Last administered on 01/01/17 09:05; Admin Dose 300 MG; Start 12/30/16 at 21:00 Guaifenesin (Robitussin Liquid Cup) 100 mg Q6H PRN PO COUGH; Start 12/30/16 at 19:30 Heparin Sodium (Porcine) (Heparin (5000 Units/0.5 ml)) 5,000 unit BID SC Last administered on 01/01/17 09:02; Admin Dose 5,000 UNIT; Start 12/30/16 at 21:00 Levothyroxine Sodium (Synthroid) 112 mcg DAILY@06 PO Last administered on 06:15; Admin Dose 112 MCG; Start 12/31/16 at 06:00 Lisinopril (Zestril) 2.5 mg DAILY PO ; Start 12/31/16 at 09:00 Metoprolol Tartrate (Lopressor) 12.5 mg BID PO ; Start 12/30/16 at 21:00 Morphine Sulfate (morphine) 2 mg Q2H PRN IV FOR NON CARDIAC PAIN (4-10); Start 12/30/16 at 20:00 Ondansetron HCl (Zofran Inj) 4 mg Q4H PRN IV NAUSEA AND/OR VOMITING; Start at 20:00 Polyethylene Glycol (Miralax) 17 gm DAILY NGT Last administered on 01/01/17 08 :57; Admin Dose 17 GM; Start 12/31/16 at 09:00 Potassium Chloride (Potassium Chloride Pwd/Soln) 40 meq DAILY NGT Last administered on 01/01/17 09:09; Admin Dose 40 MEQ; Start 12/31/16 at 09:00 Ticagrelor (Brilinta) 90 mg BID PO Last administered on 01/01/17 09:01; Admin Dose 90 MG; Start 12/30/16 at 21:00 Miscellaneous Information 1 ea NOTE XX ; Start 12/30/16 at 20:00 Glucose (Glutose) 15 gm Q15M PRN PO DECREASED GLUCOSE; Start 12/30/16 at 20:00 Glucose (Glutose) 22.5 gm Q15M PRN PO DECREASED GLUCOSE; Start 12/30/16 at 20: 00 Dextrose (D50w Syringe) 25 ml Q15M PRN IV DECREASED GLUCOSE; Start 12/30/16 at 20:00 Dextrose (D50w Syringe) 50 ml Q15M PRN IV DECREASED GLUCOSE; Start 12/30/16 at 20:00 Glucagon (Glucagen) 1 mg Q15M PRN IM DECREASED GLUCOSE; Start 12/30/16 at 20:00 Glucose (Glutose) 15 gm Q15M PRN BUCCAL DECREASED GLUCOSE; Start 12/30/16 at 20 :00 Bisacodyl (Dulcolax Supp) 10 mg DAILY PRN [place] CONSTIPATION; Start 12/31/16 at 00 :30 Magnesium Hydroxide (Milk Of Mag) 30 ml BID PRN PO CONSTIPATION; Start at 00:30 Lactulose (Enulose) 20 gm DAILY PRN PO CONSTIPATION; Start 12/31/16 at 00:30 Insulin Glargine (Lantus) 15 unit DAILY@20 SC Last administered on 12/31/16 21 :00; Admin Dose 15 UNIT; Start 12/31/16 at 20:00 Assessment/Plan Chief Complaint/Hosp Course Assessment 1. Non-ST elevation [place] with multivessel coronary artery disease on coronary angiogram. Pending coronary artery bypass graft surgery when clinically improved 2. History of COPD currently stable, CT chest noncontrast requested preoperative evaluation 3. Status post pneumonia resolved 4. Dysphagia with possible Underlying neck mass, MRI requested 5. Significant deconditioning Plan 1. Continue cardiac recommendations JAXON beta-enmanuel and aspirin and Brilinta 2. Continue bronchodilators 3. Physical therapy and Occupational Therapy 4. Preoperative pulmonary function tests when more stable 5. Advance of smoking cessation 6. Tight glycemic management 7. MRI neck. And ENT evaluation Problems: STEFANI G[place]ZALES MD, [facility] [place] 01, 2017 11:54
--- NOTE | 2017-01-01 15:03 | RADRPT ---
PROCEDURE: CT Chest. CLINICAL INDICATION: COPD and pneumonia TECHNIQUE: CT scan of the chest without contrast was performed on the [employer] volumetric [address] [facility] without contrast. Coronal and sagittal reformatted images were obtained from the axial source images. The CTDI vol is 4.84 mGy and the DLP is 157.93 mGy-cm. COMPARISON: None. FINDINGS: Diffuse centrilobular emphysematous changes are seen. Multifocal irregular air space disease is see n throughout the bilateral lungs. Subcentimeter subpleural nodules in the left lower lobe are seen the largest measuring 7 mm in size. Diffuse bronchiectasis is seen. Suggestion of a trace left ple ural effusion is noted. The mediastinum and hilum are unremarkable without evidence for mass or lym phadenopathy. Coronary vascular calcifications are seen. The vascular structures of the mediastinum are otherwise unremarkable in course and caliber. The heart size is normal without evidence for pe ricardial thickening or effusion. The axillary regions, subpectoral regions, and supraclavicular re gions are all unremarkable. The visualized gastric lumen is distended. A small hiatal hernia is see n. Imaging obtained through the upper abdomen otherwise reveals no acute abnormality. Degenerative spondylosis of the thoracic spine is seen. No osteolytic or osteoblastic lesion is detected. IMPRESSION: 1. Multifocal irregular air space disease which may represent multifocal infiltrates. 2. Suggestion of a trace left pleural effusion. 3. Diffuse centrilobular emphysematous changes. 4. Distended gastric lumen and a small hiatal hernia. 5. Subpleural nodules in the left lower lobe with the largest measuring 7 mm in size. Recommendations Solid nodules Nodule size: = 4 mm - low risk patients: no follow-up needed - high risk patients: follow-up at 12 months and if no change, no further imaging needed Nodule size: 4-6 mm - low risk patients: follow-up at 12 months and if no change, no further imaging needed - high risk patients: initial follow-up CT at 6-12 months and then at 18-24 months if no change Nodule size: >6-8 mm - low risk patients: initial follow-up CT at 6-12 months and then at 18-24 months if no change - high risk patients: initial follow-up CT at 3-6 months and then at 9-12 and 24 months if no change Nodule size: >8 mm - either low or high risk patients - follow-up CTs at around 3, 9, and 24 months - dynamic contrast enhanced CT, PET, and/or biopsy Note: newly detected indeterminate nodule in persons 35 years of age or older. - low risk patients: minimal or absent history of smoking and or other known risk factors - high risk patients: history of smoking or of other known risk factors (e.g. first degree relative with lung cancer, or exposure to asbestos, radon, uranium) if a nodule up to 8 mm is partly solid or is ground glass further follow up is required after 24 mon ths to exclude possible slow growing adenocarcinoma (REMY) RPTAT: HPNM Physician Lexie Date Time Electronically viewed and signed by Perry Damon Physician on 01/01/2017 15:03 /
--- NOTE | 2017-01-01 15:37 | CONS ---
Date/Time of Note Date/Time of Note DATE: 01/01/17 TIME: 15:36 Assessment/Plan Assessment/Plan Chief Complaint/Hosp Course Transferred to acute rehab, alert, looks comfortable, denies pain discomfort Physical examination: Well-developed, older looking 56-year-old woman who is awake in no distress. Head atraumatic normocephalic sclera nonicteric, mucosa pink dry neck is supple chest rise symmetrical breath sounds clear, diminished basis. Heart S1-S2. Abdomen soft bowel tones present. Extremities without cyanosis. Assessment: 1. Status post pneumonia 2. Status post fungal UTI 3. Non-ST elevation [place]/cardiomyopathy with ejection fraction 25% 4. Status post respiratory failure 5. Dysphasia, resolved 6. Head lice status post treatment Plan: Remain stable, off antibiotics, CT chest results noted, f/u pulmonary rec- s. Possible CABG Problems: Consultation Date/Type/Reason Admit Date/Time Dec 30, 2016 at 18:40 Type of Consultation: id Referring Provider: GRIFFIN CHEW Exam/Review of Systems Vital Signs Vitals Vital Signs Date Time Temp Pulse Resp B/P Pulse Ox O2 Delivery O2 Flow Rate FiO2 01/01/17 08:25 Nasal Cannula 2.0 01/01/17 07:30 98.1 82 18 102/51 97 01/01/17 07:13 21 Intake and Output 12/31/16 12/31/16 01/01/17 15:00 23:00 07:00 Intake Total 720 ml 560 ml Output Total 750 ml 200 ml Balance -30 ml 360 ml Results Result Diagram: 12/31/16 0714 12/31/16 0600 Results 24 hrs Laboratory Tests Test 12/31/16 17:13 12/31/16 18:03 12/31/16 20:44 01/01/17 02:05 Bedside Glucose 389 H 380 H 248 H 225 H Test 01/01/17 08:07 01/01/17 12:05 Bedside Glucose 115 287 H Medications Medications Current Medications Acetaminophen (Tylenol Liquid) 650 mg Q6H PRN NGT PAIN AND OR ELEVATED TEMP; Start 12/30/16 at 19:30 Acetaminophen (Tylenol Tab) 650 mg Q4H PRN PO NON-CARDIAC PAIN LEVEL (1-3); Start 12/30/16 at 19:30 Al Hydrox/Mg Hydrox/Simethicone (Mag-Al Plus) 30 ml Q4H PRN PO GASTROINTESTINAL UPSET; Start 12/30/16 at 19:30 Aspirin (Halfprin) 81 mg DAILY PO Last administered on 01/01/17 09:04; Admin Dose 81 MG; Start 12/31/16 at 09:00 Atorvastatin Calcium (Lipitor) 20 mg HS PO Last administered on 12/31/16 20:45 ; Admin Dose 20 MG; Start 12/30/16 at 21:00 Senna/Docusate Sodium (Senokot-S) 2 tab HS NGT Last administered on 12/31/16 20:45; Admin Dose 2 TAB; Start 12/30/16 at 21:00 Duloxetine HCl (Cymbalta) 20 mg DAILY PO Last administered on 01/01/17 08:57; Admin Dose 20 MG; Start 12/31/16 at 09:00 Famotidine (Pepcid) 20 mg HS PO Last administered on 12/31/16 20:45; Admin Dose 20 MG; Start 12/30/16 at 21:00 Furosemide (Lasix) 40 mg DAILY@06 PO ; Start 12/31/16 at 06:00; Status Future Hold Gabapentin (Neurontin) 300 mg TID PO Last administered on 01/01/17 12:31; Admin Dose 300 MG; Start 12/30/16 at 21:00 Guaifenesin (Robitussin Liquid Cup) 100 mg Q6H PRN PO COUGH; Start 12/30/16 at 19:30 Heparin Sodium (Porcine) (Heparin (5000 Units/0.5 ml)) 5,000 unit BID SC Last administered on 01/01/17 09:02; Admin Dose 5,000 UNIT; Start 12/30/16 at 21:00 Levothyroxine Sodium (Synthroid) 112 mcg DAILY@06 PO Last administered on 06:15; Admin Dose 112 MCG; Start 12/31/16 at 06:00 Lisinopril (Zestril) 2.5 mg DAILY PO ; Start 12/31/16 at 09:00 Metoprolol Tartrate (Lopressor) 12.5 mg BID PO ; Start 12/30/16 at 21:00 Morphine Sulfate (morphine) 2 mg Q2H PRN IV FOR NON CARDIAC PAIN (4-10); Start 12/30/16 at 20:00 Ondansetron HCl (Zofran Inj) 4 mg Q4H PRN IV NAUSEA AND/OR VOMITING; Start at 20:00 Polyethylene Glycol (Miralax) 17 gm DAILY NGT Last administered on 01/01/17 08 :57; Admin Dose 17 GM; Start 12/31/16 at 09:00 Potassium Chloride (Potassium Chloride Pwd/Soln) 40 meq DAILY NGT Last administered on 01/01/17 09:09; Admin Dose 40 MEQ; Start 12/31/16 at 09:00 Ticagrelor (Brilinta) 90 mg BID PO Last administered on 01/01/17 09:01; Admin Dose 90 MG; Start 12/30/16 at 21:00 Miscellaneous Information 1 ea NOTE XX ; Start 12/30/16 at 20:00 Glucose (Glutose) 15 gm Q15M PRN PO DECREASED GLUCOSE; Start 12/30/16 at 20:00 Glucose (Glutose) 22.5 gm Q15M PRN PO DECREASED GLUCOSE; Start 12/30/16 at 20: 00 Dextrose (D50w Syringe) 25 ml Q15M PRN IV DECREASED GLUCOSE; Start 12/30/16 at 20:00 Dextrose (D50w Syringe) 50 ml Q15M PRN IV DECREASED GLUCOSE; Start 12/30/16 at 20:00 Glucagon (Glucagen) 1 mg Q15M PRN IM DECREASED GLUCOSE; Start 12/30/16 at 20:00 Glucose (Glutose) 15 gm Q15M PRN BUCCAL DECREASED GLUCOSE; Start 12/30/16 at 20 :00 Bisacodyl (Dulcolax Supp) 10 mg DAILY PRN [place] CONSTIPATION; Start 12/31/16 at 00 :30 Magnesium Hydroxide (Milk Of Mag) 30 ml BID PRN PO CONSTIPATION; Start at 00:30 Lactulose (Enulose) 20 gm DAILY PRN PO CONSTIPATION; Start 12/31/16 at 00:30 Insulin Glargine (Lantus) 15 unit DAILY@20 SC Last administered on 12/31/16 21 :00; Admin Dose 15 UNIT; Start 12/31/16 at 20:00 DANYELLE ROSSI NP Jan 01, 2017 15:37
--- NOTE | 2017-01-01 17:47 | CONS ---
Date/Time of Note Date/Time of Note DATE: 01/01/17 TIME: 17:45 Assessment/Plan Assessment/Plan Chief Complaint/Hosp Course IMP: 1.NSTEMI-peak trop>60 Now dowtrended significantly s/p LHC with patent RCA stents and high grade disease of LAD/LCX with small caliber vessels and recc for CABG. Still ongoing surgical eval and question date of possible surgery? 2.cardiomyopathy-LVEF 40-45 BY OSH echo. 25% by echo read here 3.Hypotension-improved off of pressors with some lability and holding of anti- hypertenives at times 4.resp failure s/p extubation requiring PRN BIPAP which has now improved and not requiring further at this time 5.anemia 6. AMS/encephalopathy 7. PNA 8. COPD 9. Hypothyroid 10.DM-very labile BS Recc: -Now transferred to acute rehab -Follow BP closely and continue low dose BB/ACEI as tolerated only -Continue asa/brilinta -Continue statin -Follow volume status closely and continue will hold lasix x 1-2 days given low BP with PT/with standing -Smoking cessation -Follow BS closely and adjust insulin therapy as necessary -Continue abx's and f/u cx data -Continue bronchodilators -CT surgical eval ongoing and have discussed with daughter who is agreeable and CT surgery following with pnding date of surgery? Problems: Consultation Date/Type/Reason Admit Date/Time Dec 30, 2016 at 18:40 Initial Consult Date 12/30/2016 Type of Consultation: cardiology Reason for Consultation nstemi Referring Provider: GRIFFIN CHEW Exam/Review of Systems Vital Signs Vitals Vital Signs Date Time Temp Pulse Resp B/P Pulse Ox O2 Delivery O2 Flow Rate FiO2 01/01/17 08:25 Nasal Cannula 2.0 01/01/17 07:30 98.1 82 18 102/51 97 01/01/17 07:13 21 Intake and Output 12/31/16 12/31/16 01/01/17 15:00 23:00 07:00 Intake Total 720 ml 560 ml Output Total 750 ml 200 ml Balance -30 ml 360 ml Exam Review of Systems: CONSTITUTIONAL: No fevers, chills. PULMONARY: No sob CARDIOVASCULAR: No chest pain/palpitations GASTROINTESTINAL: No nausea/vomiting. GENITOURINARY: No hematuria/dysuria. MUSCULOSKELETAL: No myagias/arthalgias. PSYCHIATRIC: The patient denies depression. NEUROLOGIC: No weakness Constitutional: alert Psych: no complaints Head: normocephalic ENMT: mucosa pink and moist Neck: jvd (9 cm water), supple Respiratory: diminished breath sounds (at bases/B) Cardiovascular: regular rate and rhythm Gastrointestinal: non-tender, soft Musculoskeletal: muscle weakness (mild generalized) Extremities: edema (none) 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: other (No focal deficits) Results Result Diagram: 12/31/16 0714 12/31/16 0600 Results 24 hrs Laboratory Tests Test 12/31/16 18:03 12/31/16 20:44 01/01/17 02:05 01/01/17 08:07 Bedside Glucose 380 H 248 H 225 H 115 Test 01/01/17 12:05 01/01/17 17:29 Bedside Glucose 287 H 139 Medications Medications Current Medications Acetaminophen (Tylenol Liquid) 650 mg Q6H PRN NGT PAIN AND OR ELEVATED TEMP; Start 12/30/16 at 19:30 Acetaminophen (Tylenol Tab) 650 mg Q4H PRN PO NON-CARDIAC PAIN LEVEL (1-3); Start 12/30/16 at 19:30 Al Hydrox/Mg Hydrox/Simethicone (Mag-Al Plus) 30 ml Q4H PRN PO GASTROINTESTINAL UPSET; Start 12/30/16 at 19:30 Aspirin (Halfprin) 81 mg DAILY PO Last administered on 01/01/17 09:04; Admin Dose 81 MG; Start 12/31/16 at 09:00 Atorvastatin Calcium (Lipitor) 20 mg HS PO Last administered on 12/31/16 20:45 ; Admin Dose 20 MG; Start 12/30/16 at 21:00 Senna/Docusate Sodium (Senokot-S) 2 tab HS NGT Last administered on 12/31/16 20:45; Admin Dose 2 TAB; Start 12/30/16 at 21:00 Duloxetine HCl (Cymbalta) 20 mg DAILY PO Last administered on 01/01/17 08:57; Admin Dose 20 MG; Start 12/31/16 at 09:00 Famotidine (Pepcid) 20 mg HS PO Last administered on 12/31/16 20:45; Admin Dose 20 MG; Start 12/30/16 at 21:00 Furosemide (Lasix) 40 mg DAILY@06 PO ; Start 12/31/16 at 06:00; Status Future Hold Gabapentin (Neurontin) 300 mg TID PO Last administered on 01/01/17 12:31; Admin Dose 300 MG; Start 12/30/16 at 21:00 Guaifenesin (Robitussin Liquid Cup) 100 mg Q6H PRN PO COUGH; Start 12/30/16 at 19:30 Heparin Sodium (Porcine) (Heparin (5000 Units/0.5 ml)) 5,000 unit BID SC Last administered on 01/01/17 09:02; Admin Dose 5,000 UNIT; Start 12/30/16 at 21:00 Levothyroxine Sodium (Synthroid) 112 mcg DAILY@06 PO Last administered on 06:15; Admin Dose 112 MCG; Start 12/31/16 at 06:00 Lisinopril (Zestril) 2.5 mg DAILY PO ; Start 12/31/16 at 09:00 Metoprolol Tartrate (Lopressor) 12.5 mg BID PO ; Start 12/30/16 at 21:00 Morphine Sulfate (morphine) 2 mg Q2H PRN IV FOR NON CARDIAC PAIN (4-10); Start 12/30/16 at 20:00 Ondansetron HCl (Zofran Inj) 4 mg Q4H PRN IV NAUSEA AND/OR VOMITING; Start at 20:00 Polyethylene Glycol (Miralax) 17 gm DAILY NGT Last administered on 01/01/17 08 :57; Admin Dose 17 GM; Start 12/31/16 at 09:00 Potassium Chloride (Potassium Chloride Pwd/Soln) 40 meq DAILY NGT Last administered on 01/01/17 09:09; Admin Dose 40 MEQ; Start 12/31/16 at 09:00 Ticagrelor (Brilinta) 90 mg BID PO Last administered on 01/01/17 09:01; Admin Dose 90 MG; Start 12/30/16 at 21:00 Miscellaneous Information 1 ea NOTE XX ; Start 12/30/16 at 20:00 Glucose (Glutose) 15 gm Q15M PRN PO DECREASED GLUCOSE; Start 12/30/16 at 20:00 Glucose (Glutose) 22.5 gm Q15M PRN PO DECREASED GLUCOSE; Start 12/30/16 at 20: 00 Dextrose (D50w Syringe) 25 ml Q15M PRN IV DECREASED GLUCOSE; Start 12/30/16 at 20:00 Dextrose (D50w Syringe) 50 ml Q15M PRN IV DECREASED GLUCOSE; Start 12/30/16 at 20:00 Glucagon (Glucagen) 1 mg Q15M PRN IM DECREASED GLUCOSE; Start 12/30/16 at 20:00 Glucose (Glutose) 15 gm Q15M PRN BUCCAL DECREASED GLUCOSE; Start 12/30/16 at 20 :00 Bisacodyl (Dulcolax Supp) [address] CONSTIPATION; Start 12/31/16 at 00 :30 Magnesium Hydroxide (Milk Of Mag) 30 ml BID PRN PO CONSTIPATION; Start at 00:30 Lactulose (Enulose) 20 gm DAILY PRN PO CONSTIPATION; Start 12/31/16 at 00:30 Insulin Glargine (Lantus) 15 unit DAILY@20 SC Last administered on 12/31/16t 21 :00; Admin Dose 15 UNIT; Start 12/31/16 at 20:00 RHONDA PENA Jan 01, 2017 17:47
[2017-01-01 19:34] VITALS: BP 95/46; RESP 19
[2017-01-01] MEDS: ATORVASTATIN 20 MG TAB PO SCH (21:07)
[2017-01-01] MEDS: FAMOTIDINE 20 MG TAB PO SCH (21:07)
[2017-01-01] MEDS: SENNA/DOCUSATE NA (8.6MG/50MG) TAB NGT SCH (21:07)
[2017-01-01] MEDS: INSULIN GLARGINE [LANtus] 3 ML PEN SC SCH (21:10)
[2017-01-02] MEDS: ALBUTEROL/IPRATROPIUM (NEB) 3 ML AMP HHN SCH ×4 (01:04→20:53)
[2017-01-02 01:52] VITALS: BP 103/51; RESP 19
[2017-01-02] MEDS: LEVOTHYROXINE 112 MCG TAB PO SCH (05:50)
[2017-01-02 07:30] VITALS: BP 92/46; RESP 20
[2017-01-02] MEDS: INSULIN ASPART [NOVOLOG] 3 ML PEN SC SCH ×7 (07:51→20:57)
[2017-01-02] MEDS: LISINOPRIL 5 MG TAB PO SCH (09:00)
[2017-01-02] MEDS: METOPROLOL 25 MG TAB PO SCH ×2 (09:00→20:54)
[2017-01-02] MEDS: DULOXETINE 20 MG CAP DR PO SCH (09:01)
[2017-01-02] MEDS: POLYETHYLENE GLYCOL 17 GM PACKET NGT SCH (09:01)
[2017-01-02] MEDS: POTASSIUM CHLORIDE 20 MEQ POWDER FOR ORAL SOLN NGT SCH (09:01)
[2017-01-02] MEDS: ASPIRIN (EC) 81 MG TAB PO SCH (09:02)
[2017-01-02] MEDS: TICAGRELOR 90 MG TABLET PO SCH ×2 (09:02→20:55)
[2017-01-02] MEDS: GABAPENTIN 300 MG CAP PO SCH ×3 (09:02→20:52)
[2017-01-02] MEDS: HEPARIN 5,000 UNIT/0.5 ML VIAL SC SCH ×2 (09:03→20:56)
--- NOTE | 2017-01-02 13:07 | CONS ---
Date/Time of Note Date/Time of Note DATE: 01/02/17 TIME: 13:04 Consult Date/Type/Reason Admit Date/Time Dec 30, 2016 at 18:40 Type of Consultation: cardiology Ordering Provider: GRIFFIN CHEW Subjective No new complaint Objective Min assist transfers min assist ambulation Vital Signs Date Time Temp Pulse Resp B/P Pulse Ox O2 Delivery O2 Flow Rate FiO2 01/02/17 09:47 99 16 97 21 01/02/17 08:00 Nasal Cannula 2.0 01/02/17 07:30 97.5 92/46 Intake and Output 01/01/17 01/01/17 01/02/17 14:59 22:59 06:59 Intake Total 350 ml 1040 ml Output Total 300 ml Balance 350 ml 1040 ml -300 ml Results/Medications Result Diagram: 12/31/16 0714 12/31/16 0600 Results 24 hrs Laboratory Tests Test 01/01/17 17:29 01/01/17 21:06 01/02/17 07:48 01/02/17 12:22 Bedside Glucose 139 166 161 331 H Medications Current Medications Acetaminophen (Tylenol Liquid) 650 mg Q6H PRN NGT PAIN AND OR ELEVATED TEMP; Start 12/30/16 at 19:30 Acetaminophen (Tylenol Tab) 650 mg Q4H PRN PO NON-CARDIAC PAIN LEVEL (1-3); Start 12/30/16 at 19:30 Al Hydrox/Mg Hydrox/Simethicone (Mag-Al Plus) 30 ml Q4H PRN PO GASTROINTESTINAL UPSET; Start 12/30/16 at 19:30 Aspirin (Halfprin) 81 mg DAILY PO Last administered on 01/02/17 09:02; Admin Dose 81 MG; Start 12/31/16 at 09:00 Atorvastatin Calcium (Lipitor) 20 mg HS PO Last administered on 01/01/17 21:07 ; Admin Dose 20 MG; Start 12/30/16 at 21:00 Senna/Docusate Sodium (Senokot-S) 2 tab HS NGT Last administered on 01/01/17 21:07; Admin Dose 2 TAB; Start 12/30/16 at 21:00 Duloxetine HCl (Cymbalta) 20 mg DAILY PO Last administered on 01/02/17 09:01; Admin Dose 20 MG; Start 12/31/16 at 09:00 Famotidine (Pepcid) 20 mg HS PO Last administered on 01/01/17 21:07; Admin Dose 20 MG; Start 12/30/16 at 21:00 Furosemide (Lasix) 40 mg DAILY@06 PO ; Start 12/31/16 at 06:00; Status Future Hold Gabapentin (Neurontin) 300 mg TID PO Last administered on 01/02/17 09:02; Admin Dose 300 MG; Start 12/30/16 at 21:00 Guaifenesin (Robitussin Liquid Cup) 100 mg Q6H PRN PO COUGH; Start 12/30/16 at 19:30 Heparin Sodium (Porcine) (Heparin (5000 Units/0.5 ml)) 5,000 unit BID SC Last administered on 01/02/17 09:03; Admin Dose 5,000 UNIT; Start 12/30/16 at 21:00 Levothyroxine Sodium (Synthroid) 112 mcg DAILY@06 PO Last administered on 05:50; Admin Dose 112 MCG; Start 12/31/16 at 06:00 Lisinopril (Zestril) 2.5 mg DAILY PO ; Start 12/31/16 at 09:00 Metoprolol Tartrate (Lopressor) 12.5 mg BID PO ; Start 12/30/16 at 21:00 Morphine Sulfate (morphine) 2 mg Q2H PRN IV FOR NON CARDIAC PAIN (4-10); Start 12/30/16 at 20:00 Ondansetron HCl (Zofran Inj) 4 mg Q4H PRN IV NAUSEA AND/OR VOMITING; Start at 20:00 Polyethylene Glycol (Miralax) 17 gm DAILY NGT Last administered on 01/02/17 09 :01; Admin Dose 17 GM; Start 12/31/16 at 09:00 Potassium Chloride (Potassium Chloride Pwd/Soln) 40 meq DAILY NGT Last administered on 01/02/17 09:01; Admin Dose 40 MEQ; Start 12/31/16 at 09:00 Ticagrelor (Brilinta) 90 mg BID PO Last administered on 01/02/17 09:02; Admin Dose 90 MG; Start 12/30/16 at 21:00 Miscellaneous Information 1 ea NOTE XX ; Start 7/18/17 at 20:00 Glucose (Glutose) 15 gm Q15M PRN PO DECREASED GLUCOSE; Start 12/30/16 at 20:00 Glucose (Glutose) 22.5 gm Q15M PRN PO DECREASED GLUCOSE; Start 12/30/16 at 20: 00 Dextrose (D50w Syringe) 25 ml Q15M PRN IV DECREASED GLUCOSE; Start 12/30/16 at 20:00 Dextrose (D50w Syringe) 50 ml Q15M PRN IV DECREASED GLUCOSE; Start 12/30/16 at 20:00 Glucagon (Glucagen) 1 mg Q15M PRN IM DECREASED GLUCOSE; Start 12/30/16 at 20:00 Glucose (Glutose) 15 gm Q15M PRN BUCCAL DECREASED GLUCOSE; Start 12/30/16 at 20 :00 Bisacodyl (Dulcolax Supp) 10 mg DAILY PRN [place] CONSTIPATION; Start 12/31/16 at 00 :30 Magnesium Hydroxide (Milk Of Mag) 30 ml BID PRN PO CONSTIPATION; Start at 00:30 Lactulose (Enulose) 20 gm DAILY PRN PO CONSTIPATION; Start 12/31/16 at 00:30 Insulin Glargine (Lantus) 15 unit DAILY@20 SC Last administered on 01/01/17t 21 :10; Admin Dose 15 UNIT; Start 12/31/16 at 20:00 Assessment/Plan Additional Assessment/Plan Rehabilitation-toxic metabolic encephalopathy Continue treatment plan Dysphasia-follow closely by speech therapy. Continued workup in progress Diabetes mellitus type 2-monitor blood sugar Cardiac-patient status post non-ST elevation [place] ischemic cardiomyopathy Pulmonology-patient status post respiratory failure JORGE MESSINA MD Jan 02, 2017 13:06
[2017-01-02 14:00] VITALS: BP 109/49; RESP 18
--- NOTE | 2017-01-02 17:00 | CONS ---
Date/Time of Note Date/Time of Note DATE: 01/02/17 TIME: 16:57 Assessment/Plan Assessment/Plan Chief Complaint/Hosp Course IMP: 1.NSTEMI-peak trop>60 Now dowtrended significantly s/p LHC with patent RCA stents and high grade disease of LAD/LCX with small caliber vessels and recc for CABG. Still ongoing surgical eval and question date of possible surgery? 2.cardiomyopathy-LVEF 40-45 BY OSH echo. 25% by echo read here 3.Hypotension-improved off of pressors with some lability and holding of anti- hypertenives at times 4.resp failure s/p extubation requiring PRN BIPAP which has now improved and not requiring further at this time 5.anemia 6. AMS/encephalopathy 7. PNA 8. COPD 9. Hypothyroid 10.DM-very labile BS Recc: -Now transferred to acute rehab -Follow BP closely and continue low dose BB/ACEI as tolerated only -Continue asa/brilinta -Continue statin -Follow volume status closely and continue will resume low dose lasix -Smoking cessation -Follow BS closely and adjust insulin therapy as necessary -Continue abx's and f/u cx data -Continue bronchodilators -CT surgical eval ongoing and have discussed with daughter/apteint who are agreeable and CT surgery following with pnding date of surgery? Per CT surgery possible early next week Problems: Consultation Date/Type/Reason Admit Date/Time Dec 30, 2016 at 18:40 Initial Consult Date 12/30/2016 Type of Consultation: cardiology Reason for Consultation nstemi Referring Provider: GRIFFIN CHEW Exam/Review of Systems Vital Signs Vitals Vital Signs Date Time Temp Pulse Resp B/P Pulse Ox O2 Delivery O2 Flow Rate FiO2 01/02/17 14:00 98.7 98 18 109/49 98 01/02/17 09:47 21 01/02/17 08:00 Intake and Output 01/01/17 01/01/17 01/02/17 15:00 23:00 07:00 Intake Total 350 ml 1040 ml Output Total 300 ml Balance 350 ml 1040 ml -300 ml Exam Review of Systems: CONSTITUTIONAL: No fevers, chills. PULMONARY: mild cough CARDIOVASCULAR: No chest pain/palpitations GASTROINTESTINAL: No nausea/vomiting. GENITOURINARY: No hematuria/dysuria. MUSCULOSKELETAL: No myagias/arthalgias. PSYCHIATRIC: The patient denies depression. NEUROLOGIC: No weakness Constitutional: alert Psych: no complaints Head: normocephalic ENMT: mucosa pink and moist Neck: jvd (9 cm water), supple Respiratory: diminished breath sounds (at bases/B) Cardiovascular: regular rate and rhythm Gastrointestinal: non-tender, soft Extremities: edema (none) 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: other (No focal deficits) Results Result Diagram: 12/31/16 0714 12/31/16 0600 Results 24 hrs Laboratory Tests Test 01/01/17 17:29 01/01/17 21:06 01/02/17 07:48 01/02/17 12:22 Bedside Glucose 139 166 161 331 H Medications Medications Current Medications Acetaminophen (Tylenol Liquid) 650 mg Q6H PRN NGT PAIN AND OR ELEVATED TEMP; Start 12/30/16 at 19:30 Acetaminophen (Tylenol Tab) 650 mg Q4H PRN PO NON-CARDIAC PAIN LEVEL (1-3); Start 12/30/16 at 19:30 Al Hydrox/Mg Hydrox/Simethicone (Mag-Al Plus) 30 ml Q4H PRN PO GASTROINTESTINAL UPSET; Start 12/30/16 at 19:30 Aspirin (Halfprin) 81 mg DAILY PO Last administered on 01/02/17 09:02; Admin Dose 81 MG; Start 12/31/16 at 09:00 Atorvastatin Calcium (Lipitor) 20 mg HS PO Last administered on 01/01/17 21:07 ; Admin Dose 20 MG; Start 12/30/16 at 21:00 Senna/Docusate Sodium (Senokot-S) 2 tab HS NGT Last administered on 01/01/17 21:07; Admin Dose 2 TAB; Start 12/30/16 at 21:00 Duloxetine HCl (Cymbalta) 20 mg DAILY PO Last administered on 01/02/17 09:01; Admin Dose 20 MG; Start 12/31/16 at 09:00 Famotidine (Pepcid) 20 mg HS PO Last administered on 01/01/17 21:07; Admin Dose 20 MG; Start 12/30/16 at 21:00 Furosemide (Lasix) 40 mg DAILY@06 PO ; Start 12/31/16 at 06:00; Status Future Hold Gabapentin (Neurontin) 300 mg TID PO Last administered on 01/02/17 13:42; Admin Dose 300 MG; Start 12/30/16 at 21:00 Guaifenesin (Robitussin Liquid Cup) 100 mg Q6H PRN PO COUGH; Start 12/30/16 at 19:30 Heparin Sodium (Porcine) (Heparin (5000 Units/0.5 ml)) 5,000 unit BID SC Last administered on 01/02/17 09:03; Admin Dose 5,000 UNIT; Start 12/30/16 at 21:00 Levothyroxine Sodium (Synthroid) 112 mcg DAILY@06 PO Last administered on 05:50; Admin Dose 112 MCG; Start 12/31/16 at 06:00 Lisinopril (Zestril) 2.5 mg DAILY PO ; Start 12/31/16 at 09:00 Metoprolol Tartrate (Lopressor) 12.5 mg BID PO ; Start 12/30/16 at 21:00 Morphine Sulfate (morphine) 2 mg Q2H PRN IV FOR NON CARDIAC PAIN (4-10); Start 12/30/16 at 20:00 Ondansetron HCl (Zofran Inj) 4 mg Q4H PRN IV NAUSEA AND/OR VOMITING; Start at 20:00 Polyethylene Glycol (Miralax) 17 gm DAILY NGT Last administered on 01/02/17 09 :01; Admin Dose 17 GM; Start 12/31/16 at 09:00 Potassium Chloride (Potassium Chloride Pwd/Soln) 40 meq DAILY NGT Last administered on 01/02/17 09:01; Admin Dose 40 MEQ; Start 12/31/16 at 09:00 Ticagrelor (Brilinta) 90 mg BID PO Last administered on 01/02/17 09:02; Admin Dose 90 MG; Start 12/30/16 at 21:00 Miscellaneous Information 1 ea NOTE XX ; Start 12/30/16 at 20:00 Glucose (Glutose) 15 gm Q15M PRN PO DECREASED GLUCOSE; Start 12/30/16 at 20:00 Glucose (Glutose) 22.5 gm Q15M PRN PO DECREASED GLUCOSE; Start 12/30/16 at 20: 00 Dextrose (D50w Syringe) 25 ml Q15M PRN IV DECREASED GLUCOSE; Start 12/30/16 at 20:00 Dextrose (D50w Syringe) 50 ml Q15M PRN IV DECREASED GLUCOSE; Start 12/30/16 at 20:00 Glucagon (Glucagen) 1 mg Q15M PRN IM DECREASED GLUCOSE; Start 12/30/16 at 20:00 Glucose (Glutose) 15 gm Q15M PRN BUCCAL DECREASED GLUCOSE; Start 12/30/16 at 20 :00 Bisacodyl (Dulcolax Supp) 10 mg DAILY PRN [place] CONSTIPATION; Start 12/31/16 at 00 :30 Magnesium Hydroxide (Milk Of Mag) 30 ml BID PRN PO CONSTIPATION; Start at 00:30 Lactulose (Enulose) 20 gm DAILY PRN PO CONSTIPATION; Start 12/31/16 at 00:30 Insulin Glargine (Lantus) 18 unit DAILY@20 SC ; Start 01/02/17 at 20:00 RHONDA PENA Jan 02, 2017 17:00
--- NOTE | 2017-01-02 18:44 | CONS ---
Date/Time of Note Date/Time of Note DATE: 01/02/17 TIME: 18:42 Consult Date/Type/Reason Admit Date/Time Dec 30, 2016 at 18:40 Type of Consultation: Pulmonary Ordering Provider: GRIFFIN CHEW Subjective Patient asking when she can go home. Objective Vital Signs Date Time Temp Pulse Resp B/P Pulse Ox O2 Delivery O2 Flow Rate FiO2 01/02/17 14:00 98.7 98 18 109/49 98 01/02/17 09:47 21 01/02/17 08:00 Intake and Output 01/01/17 01/01/17 01/02/17 14:59 22:59 06:59 Intake Total 350 ml 1040 ml Output Total 300 ml Balance 350 ml 1040 ml -300 ml Exam GENERAL: Elderly lady comfortable at rest no acute distress VITAL SIGNS: per chart NECK: Supple. No JVD or lymphadenopathy. CARDIAC EXAM: S1, S2. No added sounds or murmurs. CHEST: clear bilaterally, No added sounds, rales or wheezes ABDOMEN: Soft, nontender. No guarding or rebound. EXTREMITIES: No cyanosis, clubbing or edema. NEUROLOGIC: Generalized weakness. No focal deficits. Results/Medications Result Diagram: 12/31/16 0714 12/31/16 0600 Results 24 hrs Laboratory Tests Test 01/01/17 21:06 01/02/17 07:48 01/02/17 12:22 01/02/17 17:21 Bedside Glucose 166 161 331 H 324 H Medications Current Medications Acetaminophen (Tylenol Liquid) 650 mg Q6H PRN NGT PAIN AND OR ELEVATED TEMP; Start 12/30/16 at 19:30 Acetaminophen (Tylenol Tab) 650 mg Q4H PRN PO NON-CARDIAC PAIN LEVEL (1-3); Start 12/30/16 at 19:30 Al Hydrox/Mg Hydrox/Simethicone (Mag-Al Plus) 30 ml Q4H PRN PO GASTROINTESTINAL UPSET; Start 12/30/16 at 19:30 Aspirin (Halfprin) 81 mg DAILY PO Last administered on 01/02/17 09:02; Admin Dose 81 MG; Start 12/31/16 at 09:00 Atorvastatin Calcium (Lipitor) 20 mg HS PO Last administered on 01/01/17 21:07 ; Admin Dose 20 MG; Start 12/30/16 at 21:00 Senna/Docusate Sodium (Senokot-S) 2 tab HS NGT Last administered on 01/01/17 21:07; Admin Dose 2 TAB; Start 12/30/16 at 21:00 Duloxetine HCl (Cymbalta) 20 mg DAILY PO Last administered on 01/02/17 09:01; Admin Dose 20 MG; Start 12/31/16 at 09:00 Famotidine (Pepcid) 20 mg HS PO Last administered on 01/01/17 21:07; Admin Dose 20 MG; Start 12/30/16 at 21:00 Gabapentin (Neurontin) 300 mg TID PO Last administered on 01/02/17 13:42; Admin Dose 300 MG; Start 12/30/16 at 21:00 Guaifenesin (Robitussin Liquid Cup) 100 mg Q6H PRN PO COUGH; Start 12/30/16 at 19:30 Heparin Sodium (Porcine) (Heparin (5000 Units/0.5 ml)) 5,000 unit BID SC Last administered on 01/02/17 09:03; Admin Dose 5,000 UNIT; Start 12/30/16 at 21:00 Levothyroxine Sodium (Synthroid) 112 mcg DAILY@06 PO Last administered on 05:50; Admin Dose 112 MCG; Start 12/31/16 at 06:00 Lisinopril (Zestril) 2.5 mg DAILY PO ; Start 12/31/16 at 09:00 Metoprolol Tartrate (Lopressor) 12.5 mg BID PO ; Start 12/30/16 at 21:00 Morphine Sulfate (morphine) 2 mg Q2H PRN IV FOR NON CARDIAC PAIN (4-10); Start 12/30/16 at 20:00 Ondansetron HCl (Zofran Inj) 4 mg Q4H PRN IV NAUSEA AND/OR VOMITING; Start at 20:00 Polyethylene Glycol (Miralax) 17 gm DAILY NGT Last administered on 01/02/17 09 :01; Admin Dose 17 GM; Start 12/31/16 at 09:00 Potassium Chloride (Potassium Chloride Pwd/Soln) 40 meq DAILY NGT Last administered on 01/02/17 09:01; Admin Dose 40 MEQ; Start 12/31/16 at 09:00 Ticagrelor (Brilinta) 90 mg BID PO Last administered on 01/02/17t 09:02; Admin Dose 90 MG; Start 12/30/16 at 21:00 Miscellaneous Information 1 ea NOTE XX ; Start 12/30/16 at 20:00 Glucose (Glutose) 15 gm Q15M PRN PO DECREASED GLUCOSE; Start 12/30/16 at 20:00 Glucose (Glutose) 22.5 gm Q15M PRN PO DECREASED GLUCOSE; Start 12/30/16 at 20: 00 Dextrose (D50w Syringe) 25 ml Q15M PRN IV DECREASED GLUCOSE; Start 12/30/16 at 20:00 Dextrose (D50w Syringe) 50 ml Q15M PRN IV DECREASED GLUCOSE; Start 12/30/16 at 20:00 Glucagon (Glucagen) 1 mg Q15M PRN IM DECREASED GLUCOSE; Start 12/30/16 at 20:00 Glucose (Glutose) 15 gm Q15M PRN BUCCAL DECREASED GLUCOSE; Start 12/30/16 at 20 :00 Bisacodyl (Dulcolax Supp) 10 mg DAILY PRN [place] CONSTIPATION; Start 12/31/16 at 00 :30 Magnesium Hydroxide (Milk Of Mag) 30 ml BID PRN PO CONSTIPATION; Start at 00:30 Lactulose (Enulose) 20 gm DAILY PRN PO CONSTIPATION; Start 12/31/16 at 00:30 Insulin Glargine (Lantus) 18 unit DAILY@20 SC ; Start 01/02/17 at 20:00 Furosemide (Lasix) 20 mg DAILY PO ; Start 01/03/17 at 09:00 Assessment/Plan Chief Complaint/Hosp Course Assessment 1. Non-ST elevation PA with multivessel coronary artery disease on coronary angiogram. Pending coronary artery bypass graft surgery when clinically improved 2. History of COPD currently stable, CT chest noncontrast requested preoperative evaluation 3. Status post pneumonia resolved 4. Dysphagia with possible Underlying neck mass, MRI requested 5. Significant deconditioning 6. Diabetes mellitus still with elevated blood glucose. Plan 1. Continue cardiac recommendations JAXON beta-enmanuel and aspirin and Brilinta 2. Continue bronchodilators 3. Physical therapy and Occupational Therapy 4. Preoperative pulmonary function tests when more stable 5. Advance of smoking cessation 6. Tight glycemic management increase Lantus and short acting insulin. 7. CT chest reviewed. No mention of any abnormalities in the neck. I will discuss with radiology. Problems: STEFANI GONZALES MD, [facility] Jan 02, 2017 18:44
[2017-01-02 19:52] VITALS: BP 107/50; RESP 18
[2017-01-02] MEDS: FAMOTIDINE 20 MG TAB PO SCH (20:52)
[2017-01-02] MEDS: ATORVASTATIN 20 MG TAB PO SCH (20:52)
[2017-01-02] MEDS: SENNA/DOCUSATE NA (8.6MG/50MG) TAB NGT SCH (20:52)
[2017-01-02] MEDS: INSULIN GLARGINE [LANtus] 3 ML PEN SC SCH (20:56)
[2017-01-03] VITALS (7 sets, daily range): BP systolic 85–104; BP diastolic 38–67; RESP 18
[2017-01-03] MEDS: ALBUTEROL/IPRATROPIUM (NEB) 3 ML AMP HHN SCH ×4 (02:00→19:51)
[2017-01-03] MEDS: LEVOTHYROXINE 112 MCG TAB PO SCH (05:55)
[2017-01-03] MEDS: INSULIN ASPART [NOVOLOG] 3 ML PEN SC SCH ×7 (07:35→20:57)
[2017-01-03] MEDS: DULOXETINE 20 MG CAP DR PO SCH (08:30)
[2017-01-03] MEDS: POTASSIUM CHLORIDE 20 MEQ POWDER FOR ORAL SOLN NGT SCH (08:31)
[2017-01-03] MEDS: HEPARIN 5,000 UNIT/0.5 ML VIAL SC SCH ×2 (08:32→20:53)
[2017-01-03] MEDS: TICAGRELOR 90 MG TABLET PO SCH ×2 (08:32→20:52)
[2017-01-03] MEDS: ASPIRIN (EC) 81 MG TAB PO SCH (08:33)
[2017-01-03] MEDS: FUROSEMIDE 20 MG TAB PO SCH (08:33)
[2017-01-03] MEDS: POLYETHYLENE GLYCOL 17 GM PACKET NGT SCH (08:33)
[2017-01-03] MEDS: GABAPENTIN 300 MG CAP PO SCH ×3 (08:33→20:52)
[2017-01-03] MEDS: METOPROLOL 25 MG TAB PO SCH ×2 (08:34→21:00)
[2017-01-03] MEDS: LISINOPRIL 5 MG TAB PO SCH (08:34)
--- NOTE | 2017-01-03 09:57 | PN ---
Date/Time of Note Date/Time of Note DATE: 01/03/17 TIME: 09:48 Assessment/Plan Lines/Catheters IV Catheter Type (from Nrs): Saline Lock Urinary Cath still in place: No Assessment/Plan Assessment/Plan 1. Toxic metabolic encephalopathy, also with impaired mobility/gait/ADLs. Continue PT/OT/ST. SBA for rolling, min assist for supine to sit. Therapies this morning limited by hypotension. 2. Dysphagia. Continue modified diet per ST. Maintain aspiration precautions. 3. Diabetes mellitus type 2. Internal medicine adjusting insulin regimen. Continue to monitor blood sugars. 4. Status post non-ST elevation MD. Managed per cardiology. 5. Ischemic cardiomyopathy. Continue medical management per cardiology. 6. Hypotension. Cardiology following. Continue to closely monitor BP. 6. Status post acute respiratory failure, history of COPD. Monitor pulmonary status. Continue medical management per pulmonary. Continue to monitor 02 sats. Subjective 24 Hr Interval Summary Free Text/Dictation Rehab progress note Subjective: Reports lightheaded when out of bed working with therapies, patient hypotensive and brought back to bed. Denies further symptoms. ROS: Denies chest pain, no shortness of breath, no abdominal pain, no nausea, no vomiting, no chills. Exam/Review of Systems Vital Signs Vitals Vital Signs Date Time Temp Pulse Resp B/P Pulse Ox O2 Delivery O2 Flow Rate FiO2 01/03/17 09:25 85/39 01/03/17 07:40 98.2 71 18 96 01/02/17 20:55 21 01/02/17 08:00 Intake and Output 01/02/17 01/02/17 01/03/17 15:00 23:00 07:00 Intake Total 1920 ml 940 ml Output Total 300 ml Balance 1920 ml 640 ml Exam General: Awake, alert, no acute distress CV: Regular rate, s1s2 Lungs: Diminished breath sounds bilaterally, no wheezing Abdomen soft, nontender Extremities without distal edema, no cyanosis Neuro: Follows simple commands. BLE antigravity strength. No new sensory changes. Results Result Diagram: 12/31/16 0714 12/31/16 0600 Results 24 hrs Laboratory Tests Test 01/02/17 12:22 01/02/17 17:21 01/02/17 20:50 01/03/17 07:58 Bedside Glucose 331 H 324 H 143 74 Medications Medications Current Medications Acetaminophen (Tylenol Liquid) 650 mg Q6H PRN NGT PAIN AND OR ELEVATED TEMP; Start 12/30/16 at 19:30 Acetaminophen (Tylenol Tab) 650 mg Q4H PRN PO NON-CARDIAC PAIN LEVEL (1-3); Start 12/30/16 at 19:30 Al Hydrox/Mg Hydrox/Simethicone (Mag-Al Plus) 30 ml Q4H PRN PO GASTROINTESTINAL UPSET; Start 12/30/16 at 19:30 Aspirin (Halfprin) 81 mg DAILY PO Last administered on 01/03/17 08:33; Admin Dose 81 MG; Start 12/31/16 at 09:00 Atorvastatin Calcium (Lipitor) 20 mg HS PO Last administered on 01/02/17 20:52 ; Admin Dose 20 MG; Start 12/30/16 at 21:00 Senna/Docusate Sodium (Senokot-S) 2 tab HS NGT Last administered on 01/02/17 20:52; Admin Dose 2 TAB; Start 12/30/16 at 21:00 Duloxetine HCl (Cymbalta) 20 mg DAILY PO Last administered on 01/03/17 08:30; Admin Dose 20 MG; Start 12/31/16 at 09:00 Famotidine (Pepcid) 20 mg HS PO Last administered on 01/02/17 20:52; Admin Dose 20 MG; Start 12/30/16 at 21:00 Gabapentin (Neurontin) 300 mg TID PO Last administered on 01/03/17 08:33; Admin Dose 300 MG; Start 12/30/16 at 21:00 Guaifenesin (Robitussin Liquid Cup) 100 mg Q6H PRN PO COUGH; Start 12/30/16 at 19:30 Heparin Sodium (Porcine) (Heparin (5000 Units/0.5 ml)) 5,000 unit BID SC Last administered on 01/03/17 08:32; Admin Dose 5,000 UNIT; Start 12/30/16 at 21:00 Levothyroxine Sodium (Synthroid) 112 mcg DAILY@06 PO Last administered on 05:55; Admin Dose 112 MCG; Start 12/31/16 at 06:00 Lisinopril (Zestril) 2.5 mg DAILY PO ; Start 12/31/16 at 09:00 Metoprolol Tartrate (Lopressor) 12.5 mg BID PO Last administered on 01/02/17 20:54; Admin Dose 12.5 MG; Start 12/30/16 at 21:00 Morphine Sulfate (morphine) 2 mg Q2H PRN IV FOR NON CARDIAC PAIN (4-10); Start 12/30/16 at 20:00 Ondansetron HCl (Zofran Inj) 4 mg Q4H PRN IV NAUSEA AND/OR VOMITING; Start at 20:00 Polyethylene Glycol (Miralax) 17 gm DAILY NGT Last administered on 01/03/17 08 :33; Admin Dose 17 GM; Start 12/31/16 at 09:00 Potassium Chloride (Potassium Chloride Pwd/Soln) 40 meq DAILY NGT Last administered on 01/03/17 08:31; Admin Dose 40 MEQ; Start 12/31/16 at 09:00 Ticagrelor (Brilinta) 90 mg BID PO Last administered on 01/03/17 08:32; Admin Dose 90 MG; Start 12/30/16 at 21:00 Miscellaneous Information 1 ea NOTE XX ; Start 12/30/16 at 20:00 Glucose (Glutose) 15 gm Q15M PRN PO DECREASED GLUCOSE; Start 12/30/16 at 20:00 Glucose (Glutose) 22.5 gm Q15M PRN PO DECREASED GLUCOSE; Start 12/30/16 at 20: 00 Dextrose (D50w Syringe) 25 ml Q15M PRN IV DECREASED GLUCOSE; Start 12/30/16 at 20:00 Dextrose (D50w Syringe) 50 ml Q15M PRN IV DECREASED GLUCOSE; Start 12/30/16 at 20:00 Glucagon (Glucagen) 1 mg Q15M PRN IM DECREASED GLUCOSE; Start 12/30/16 at 20:00 Glucose (Glutose) 15 gm Q15M PRN BUCCAL DECREASED GLUCOSE; Start 12/30/16 at 20 :00 Bisacodyl (Dulcolax Supp) 10 mg DAILY PRN [place] CONSTIPATION; Start 12/31/16 at 00 :30 Magnesium Hydroxide (Milk Of Mag) 30 ml BID PRN PO CONSTIPATION; Start at 00:30 Lactulose (Enulose) 20 gm DAILY PRN PO CONSTIPATION; Start 12/31/16 at 00:30 Insulin Glargine (Lantus) 18 unit DAILY@20 SC Last administered on 01/02/17t 20 :56; Admin Dose 18 UNIT; Start 01/02/17 at 20:00 Furosemide (Lasix) 20 mg DAILY PO ; Start 01/03/17 at 09:00 ANGELINE DRUMMOND Jan 03, 2017 09:57
--- NOTE | 2017-01-03 12:49 | CONS ---
Date/Time of Note Date/Time of Note DATE: 01/03/17 TIME: 12:47 Assessment/Plan Assessment/Plan Additional Assessment/Plan CT chest was reviewed from the of this month which is showing emphysematous changes bilaterally with nonspecific nodules. assessment recommendations; 1. Patient with recent history of CA awaiting coronary angiogram pending clinical stability. 2. Underlying COPD. 3. History of diabetes. 4. Recent pneumonia. Continue current treatment. Consultation Date/Type/Reason Admit Date/Time Dec 30, 2016 at 18:40 Initial Consult Date Type of Consultation: Internal medicine Referring Provider: GRIFFIN CHEW 24 HR Interval Summary Free Text/Dictation Patient's condition stable. Denies any shortness breath, chest pain,. Eating lunch at bedside. General exam; middle-aged woman, awake alert currently in no distress. Exam/Review of Systems Vital Signs Vitals Vital Signs Date Time Temp Pulse Resp B/P Pulse Ox O2 Delivery O2 Flow Rate FiO2 01/03/17 09:25 85/39 01/03/17 07:40 98.2 71 18 96 01/02/17 20:55 21 01/02/17 08:00 Intake and Output 01/02/17 01/02/17 01/03/17 15:00 23:00 07:00 Intake Total 1920 ml 940 ml Output Total 300 ml Balance 1920 ml 640 ml Exam HEENT exam; supple neck, no JVD. No lymphadenopathy. Midline trachea. No thyromegaly. Pharynx is clear. Chest exam; clear to auscultation. S1-S2 audible, no murmurs. Regular rhythm. Abdomen exam; soft, no organomegaly. Bowel sounds audible. Extremity exam; no peripheral edema. No clubbing. Pulses 2+ bilaterally. [employer] exam; no focal deficit. Results Result Diagram: 12/31/16 0714 12/31/16 0600 Results 24 hrs Laboratory Tests Test 01/02/17 17:21 01/02/17 20:50 01/03/17 07:58 01/03/17 11:57 Bedside Glucose 324 H 143 74 116 Medications Medications Current Medications Acetaminophen (Tylenol Liquid) 650 mg Q6H PRN NGT PAIN AND OR ELEVATED TEMP; Start 12/30/16 at 19:30 Acetaminophen (Tylenol Tab) 650 mg Q4H PRN PO NON-CARDIAC PAIN LEVEL (1-3); Start 12/30/16 at 19:30 Al Hydrox/Mg Hydrox/Simethicone (Mag-Al Plus) 30 ml Q4H PRN PO GASTROINTESTINAL UPSET; Start 12/30/16 at 19:30 Aspirin (Halfprin) 81 mg DAILY PO Last administered on 01/03/17 08:33; Admin Dose 81 MG; Start 12/31/16 at 09:00 Atorvastatin Calcium (Lipitor) 20 mg HS PO Last administered on 01/02/17 20:52 ; Admin Dose 20 MG; Start 12/30/16 at 21:00 Senna/Docusate Sodium (Senokot-S) 2 tab HS NGT Last administered on 01/02/17 20:52; Admin Dose 2 TAB; Start 12/30/16 at 21:00 Duloxetine HCl (Cymbalta) 20 mg DAILY PO Last administered on 01/03/17 08:30; Admin Dose 20 MG; Start 12/31/16 at 09:00 Famotidine (Pepcid) 20 mg HS PO Last administered on 01/02/17 20:52; Admin Dose 20 MG; Start 12/30/16 at 21:00 Gabapentin (Neurontin) 300 mg TID PO Last administered on 01/03/17 12:01; Admin Dose 300 MG; Start 12/30/16 at 21:00 Guaifenesin (Robitussin Liquid Cup) 100 mg Q6H PRN PO COUGH; Start 12/30/16 at 19:30 Heparin Sodium (Porcine) (Heparin (5000 Units/0.5 ml)) 5,000 unit BID SC Last administered on 01/03/17 08:32; Admin Dose 5,000 UNIT; Start 12/30/16 at 21:00 Levothyroxine Sodium (Synthroid) 112 mcg DAILY@06 PO Last administered on 05:55; Admin Dose 112 MCG; Start 12/31/16 at 06:00 Lisinopril (Zestril) 2.5 mg DAILY PO ; Start 12/31/16 at 09:00 Metoprolol Tartrate (Lopressor) 12.5 mg BID PO Last administered on 01/02/17 20:54; Admin Dose 12.5 MG; Start 12/30/16 at 21:00 Morphine Sulfate (morphine) 2 mg Q2H PRN IV FOR NON CARDIAC PAIN (4-10); Start 12/30/16 at 20:00 Ondansetron HCl (Zofran Inj) 4 mg Q4H PRN IV NAUSEA AND/OR VOMITING; Start at 20:00 Polyethylene Glycol (Miralax) 17 gm DAILY NGT Last administered on 01/03/17 08 :33; Admin Dose 17 GM; Start 12/31/16 at 09:00 Potassium Chloride (Potassium Chloride Pwd/Soln) 40 meq DAILY NGT Last administered on 01/03/17 08:31; Admin Dose 40 MEQ; Start 12/31/16 at 09:00 Ticagrelor (Brilinta) 90 mg BID PO Last administered on 01/03/17 08:32; Admin Dose 90 MG; Start 12/30/16 at 21:00 Miscellaneous Information 1 ea NOTE XX ; Start 12/30/16 at 20:00 Glucose (Glutose) 15 gm Q15M PRN PO DECREASED GLUCOSE; Start 12/30/16 at 20:00 Glucose (Glutose) 22.5 gm Q15M PRN PO DECREASED GLUCOSE; Start 12/30/16 at 20: 00 Dextrose (D50w Syringe) 25 ml Q15M PRN IV DECREASED GLUCOSE; Start 12/30/16 at 20:00 Dextrose (D50w Syringe) 50 ml Q15M PRN IV DECREASED GLUCOSE; Start 12/30/16 at 20:00 Glucagon (Glucagen) 1 mg Q15M PRN IM DECREASED GLUCOSE; Start 12/30/16 at 20:00 Glucose (Glutose) 15 gm Q15M PRN BUCCAL DECREASED GLUCOSE; Start 12/30/16 at 20 :00 Bisacodyl (Dulcolax Supp) 10 mg DAILY PRN [place] CONSTIPATION; Start 12/31/16 at 00 :30 Magnesium Hydroxide (Milk Of Mag) 30 ml BID PRN PO CONSTIPATION; Start at 00:30 Lactulose (Enulose) 20 gm DAILY PRN PO CONSTIPATION; Start 12/31/16 at 00:30 Insulin Glargine (Lantus) 18 unit DAILY@20 SC Last administered on 01/02/17 20 :56; Admin Dose 18 UNIT; Start 01/02/17 at 20:00 Furosemide (Lasix) 20 mg DAILY PO ; Start 01/03/17 at 09:00 MARY MONTEMAYOR Jan 03, 2017 12:49
--- NOTE | 2017-01-03 15:09 | CONS ---
Date/Time of Note Date/Time of Note DATE: 01/03/17 TIME: 15:05 Assessment/Plan Assessment/Plan Additional Assessment/Plan CAD s/p stenting with high grade lesion in LAD and LcX Ischemic cardiomyopathy Respiratory failure emphysema anemia Diabetes Hypothyroidism Hemodynamically stable Continue metoprolol Continue Lisinopril Continue ASA and Brilinta Continue Lipitor Awaiting Bypass Consultation Date/Type/Reason Admit Date/Time Dec 30, 2016 at 18:40 Constitutional: No chills, No diaphoresis, No disoriented, No febrile, No improved, No no complaints, No other, No poor po, No requiring IVF, No requiring O2 Eyes: other ENT: other (Patient reports dysphasia) Gastrointestinal: No blood, No constipation, No decreased appetite, No diarrhea , No flatus, No nausea, No no complaints, No other, No pain, No passing stool, No vomiting Genitourinary: No bleeding, No discharge, No dysuria, No flank pain, No hematuria, No no complaints, No other Skin: No bruising, No erythema, No laceration, No no complaints, No other, No pruritis, No rash, No skin lesions Neurologic: confusion Psychological: no complaints Past Surgical History Past Surgical Hx: other Social History Smoking Status: Former smoker Exam/Review of Systems Vital Signs Vitals Vital Signs Date Time Temp Pulse Resp B/P Pulse Ox O2 Delivery O2 Flow Rate FiO2 01/03/17 14:13 90 18 96 21 01/03/17 09:25 85/39 01/03/17 07:40 98.2 01/02/17 08:00 Intake and Output 01/02/17 01/02/17 01/03/17 15:00 23:00 07:00 Intake Total 1920 ml 940 ml Output Total 300 ml Balance 1920 ml 640 ml Exam Constitutional: alert Head: atraumatic, normocephalic Neck: non-tender, supple Respiratory: clear to auscultation Cardiovascular: regular rate and rhythm Gastrointestinal: nl liver, spleen, non-tender, soft Extremities: normal pulses Results Result Diagram: 12/31/16 0714 12/31/16 0600 Results 24 hrs Laboratory Tests Test 01/02/17 17:21 01/02/17 20:50 01/03/17 07:58 01/03/17 11:57 Bedside Glucose 324 H 143 74 116 Medications Medications Current Medications Acetaminophen (Tylenol Liquid) 650 mg Q6H PRN NGT PAIN AND OR ELEVATED TEMP; Start 12/30/16 at 19:30 Acetaminophen (Tylenol Tab) 650 mg Q4H PRN PO NON-CARDIAC PAIN LEVEL (1-3); Start 12/30/16 at 19:30 Al Hydrox/Mg Hydrox/Simethicone (Mag-Al Plus) 30 ml Q4H PRN PO GASTROINTESTINAL UPSET; Start 12/30/16 at 19:30 Aspirin (Halfprin) 81 mg DAILY PO Last administered on 01/03/17 08:33; Admin Dose 81 MG; Start 12/31/16 at 09:00 Atorvastatin Calcium (Lipitor) 20 mg HS PO Last administered on 01/02/17 20:52 ; Admin Dose 20 MG; Start 12/30/16 at 21:00 Senna/Docusate Sodium (Senokot-S) 2 tab HS NGT Last administered on 01/02/17 20:52; Admin Dose 2 TAB; Start 12/30/16 at 21:00 Duloxetine HCl (Cymbalta) 20 mg DAILY PO Last administered on 01/03/17 08:30; Admin Dose 20 MG; Start 12/31/16 at 09:00 Famotidine (Pepcid) 20 mg HS PO Last administered on 01/02/17 20:52; Admin Dose 20 MG; Start 12/30/16 at 21:00 Gabapentin (Neurontin) 300 mg TID PO Last administered on 01/03/17 12:01; Admin Dose 300 MG; Start 12/30/16 at 21:00 Guaifenesin (Robitussin Liquid Cup) 100 mg Q6H PRN PO COUGH; Start 12/30/16 at 19:30 Heparin Sodium (Porcine) (Heparin (5000 Units/0.5 ml)) 5,000 unit BID SC Last administered on 01/03/17 08:32; Admin Dose 5,000 UNIT; Start 12/30/16 at 21:00 Levothyroxine Sodium (Synthroid) 112 mcg DAILY@06 PO Last administered on 05:55; Admin Dose 112 MCG; Start 12/31/16 at 06:00 Lisinopril (Zestril) 2.5 mg DAILY PO ; Start 12/31/16 at 09:00 Metoprolol Tartrate (Lopressor) 12.5 mg BID PO Last administered on 01/02/17 20:54; Admin Dose 12.5 MG; Start 12/30/16 at 21:00 Morphine Sulfate (morphine) 2 mg Q2H PRN IV FOR NON CARDIAC PAIN (4-10); Start 12/30/16 at 20:00 Ondansetron HCl (Zofran Inj) 4 mg Q4H PRN IV NAUSEA AND/OR VOMITING; Start at 20:00 Polyethylene Glycol (Miralax) 17 gm DAILY NGT Last administered on 01/03/17 08 :33; Admin Dose 17 GM; Start 12/31/16 at 09:00 Potassium Chloride (Potassium Chloride Pwd/Soln) 40 meq DAILY NGT Last administered on 01/03/17 08:31; Admin Dose 40 MEQ; Start 12/31/16 at 09:00 Ticagrelor (Brilinta) 90 mg BID PO Last administered on 01/03/17 08:32; Admin Dose 90 MG; Start 12/30/16 at 21:00 Miscellaneous Information 1 ea NOTE XX ; Start 12/30/16 at 20:00 Glucose (Glutose) 15 gm Q15M PRN PO DECREASED GLUCOSE; Start 12/30/16 at 20:00 Glucose (Glutose) 22.5 gm Q15M PRN PO DECREASED GLUCOSE; Start 12/30/16 at 20: 00 Dextrose (D50w Syringe) 25 ml Q15M PRN IV DECREASED GLUCOSE; Start 12/30/16 at 20:00 Dextrose (D50w Syringe) 50 ml Q15M PRN IV DECREASED GLUCOSE; Start 12/30/16 at 20:00 Glucagon (Glucagen) 1 mg Q15M PRN IM DECREASED GLUCOSE; Start 12/30/16 at 20:00 Glucose (Glutose) 15 gm Q15M PRN BUCCAL DECREASED GLUCOSE; Start 12/30/16 at 20 :00 Bisacodyl (Dulcolax Supp) 10 mg DAILY PRN [place] CONSTIPATION; Start 12/31/16 at 00 :30 Magnesium Hydroxide (Milk Of Mag) 30 ml BID PRN PO CONSTIPATION; Start at 00:30 Lactulose (Enulose) 20 gm DAILY PRN PO CONSTIPATION; Start 12/31/16 at 00:30 Insulin Glargine (Lantus) 18 unit DAILY@20 SC Last administered on 01/02/17t 20 :56; Admin Dose 18 UNIT; Start 01/02/17 at 20:00 Furosemide (Lasix) 20 mg DAILY PO ; Start 01/03/17 at 09:00 HALI ALVARADO M.D. Jan 03, 2017 15:09
[2017-01-03] MEDS: FAMOTIDINE 20 MG TAB PO SCH (20:52)
[2017-01-03] MEDS: ATORVASTATIN 20 MG TAB PO SCH (20:52)
[2017-01-03] MEDS: SENNA/DOCUSATE NA (8.6MG/50MG) TAB NGT SCH (20:52)
[2017-01-03] MEDS: INSULIN GLARGINE [LANtus] 3 ML PEN SC SCH (20:56)
[2017-01-04 01:53] VITALS: BP 106/56; PULSE 80; RESP 18
[2017-01-04] MEDS: ALBUTEROL/IPRATROPIUM (NEB) 3 ML AMP HHN SCH ×4 (02:00→20:56)
[2017-01-04] MEDS: LEVOTHYROXINE 112 MCG TAB PO SCH (06:09)
[2017-01-04] MEDS: INSULIN ASPART [NOVOLOG] 3 ML PEN SC SCH ×7 (07:35→21:05)
[2017-01-04] MEDS: TICAGRELOR 90 MG TABLET PO SCH ×2 (08:38→21:04)
[2017-01-04] MEDS: HEPARIN 5,000 UNIT/0.5 ML VIAL SC SCH ×2 (08:38→21:04)
[2017-01-04] MEDS: GABAPENTIN 300 MG CAP PO SCH ×3 (08:38→20:50)
[2017-01-04] MEDS: POTASSIUM CHLORIDE 20 MEQ POWDER FOR ORAL SOLN NGT SCH (08:38)
[2017-01-04] MEDS: DULOXETINE 20 MG CAP DR PO SCH (08:38)
[2017-01-04] MEDS: ASPIRIN (EC) 81 MG TAB PO SCH (08:38)
[2017-01-04] MEDS: POLYETHYLENE GLYCOL 17 GM PACKET NGT SCH (08:39)
[2017-01-04] MEDS: FUROSEMIDE 20 MG TAB PO SCH (08:39)
[2017-01-04] MEDS: METOPROLOL 25 MG TAB PO SCH ×2 (08:40→20:52)
[2017-01-04] MEDS: LISINOPRIL 5 MG TAB PO SCH (08:40)
--- NOTE | 2017-01-04 10:10 | PN ---
Date/Time of Note Date/Time of Note DATE: 01/04/17 TIME: 10:07 Assessment/Plan Lines/Catheters IV Catheter Type (from Nrsg): Saline Lock Urinary Cath still in place: No Assessment/Plan Assessment/Plan 1. Toxic metabolic encephalopathy, also with impaired mobility/gait/ADLs. Continue PT/OT/ST. CGA for grooming and upper body dressing. 2. Dysphagia. Continue modified diet per ST. Continue swallowing training per ST. 3. Diabetes mellitus type 2. Continue to monitor blood sugars. On insulin regimen per internal medicine. 4. Status post NSTEMI. Medical management per cardiology. 5. Ischemic cardiomyopathy. Continue medical management per cardiology. 6. Hypotension. Cardiology following. Continue to closely monitor BP. 6. Status post acute respiratory failure, history of COPD. Continue medical management per pulmonary. Continue to monitor 02 sats. Subjective 24 Hr Interval Summary Free Text/Dictation Rehab progress note Subjective: Denies any acute complaints. ROS: Denies headache, no dizziness, no chest pain, no shortness of breath, no abdominal pain, no nausea or vomiting. Exam/Review of Systems Vital Signs Vitals Vital Signs Date Time Temp Pulse Resp B/P Pulse Ox O2 Delivery O2 Flow Rate FiO2 01/04/17 08:45 84 20 96 21 01/04/17 01:53 98.7 106/56 Room Air 01/02/17 08:00 Intake and Output 01/03/17 01/03/17 01/04/17 15:00 23:00 07:00 Intake Total 850 ml 880 ml 400 ml Output Total 400 ml 650 ml 350 ml Balance 450 ml 230 ml 50 ml Exam General: Awake, alert, no acute distress CV: Regular rate, s1s2 Lungs: Diminished breath sounds bilaterally, no wheezing Abdomen soft, nontender Extremities without new swelling, no cyanosis Neuro: No focal changes. Follows simple commands. Results Result Diagram: 12/31/16 0714 12/31/16 0600 Results 24 hrs Laboratory Tests Test 01/03/17 11:57 01/03/17 17:16 01/03/17 20:55 01/04/17 01:47 Bedside Glucose 116 120 231 H 156 Test 01/04/17 07:33 Bedside Glucose 75 Medications Medications Current Medications Acetaminophen (Tylenol Liquid) 650 mg Q6H PRN NGT PAIN AND OR ELEVATED TEMP; Start 12/30/16 at 19:30 Acetaminophen (Tylenol Tab) 650 mg Q4H PRN PO NON-CARDIAC PAIN LEVEL (1-3); Start 12/30/16 at 19:30 Al Hydrox/Mg Hydrox/Simethicone (Mag-Al Plus) 30 ml Q4H PRN PO GASTROINTESTINAL UPSET; Start 12/30/16 at 19:30 Aspirin (Halfprin) 81 mg DAILY PO Last administered on 01/04/17 08:38; Admin Dose 81 MG; Start 12/31/16 at 09:00 Atorvastatin Calcium (Lipitor) 20 mg HS PO Last administered on 01/03/17 20:52 ; Admin Dose 20 MG; Start 12/30/16 at 21:00 Senna/Docusate Sodium (Senokot-S) 2 tab HS NGT Last administered on 01/03/17 20:52; Admin Dose 2 TAB; Start 12/30/16 at 21:00 Duloxetine HCl (Cymbalta) 20 mg DAILY PO Last administered on 01/04/17 08:38; Admin Dose 20 MG; Start 12/31/16 at 09:00 Famotidine (Pepcid) 20 mg HS PO Last administered on 01/03/17 20:52; Admin Dose 20 MG; Start 12/30/16 at 21:00 Gabapentin (Neurontin) 300 mg TID PO Last administered on 01/04/17 08:38; Admin Dose 300 MG; Start 12/30/16 at 21:00 Guaifenesin (Robitussin Liquid Cup) 100 mg Q6H PRN PO COUGH; Start 12/30/16 at 19:30 Heparin Sodium (Porcine) (Heparin (5000 Units/0.5 ml)) 5,000 unit BID SC Last administered on 01/04/17 08:38; Admin Dose 5,000 UNIT; Start 12/30/16 at 21:00 Levothyroxine Sodium (Synthroid) 112 mcg DAILY@06 PO Last administered on 06:09; Admin Dose 112 MCG; Start 12/31/16 at 06:00 Lisinopril (Zestril) 2.5 mg DAILY PO ; Start 12/31/16 at 09:00 Metoprolol Tartrate (Lopressor) 12.5 mg BID PO Last administered on 01/02/17 20:54; Admin Dose 12.5 MG; Start 12/30/16 at 21:00 Morphine Sulfate (morphine) 2 mg Q2H PRN IV FOR NON CARDIAC PAIN (4-10); Start 12/30/16 at 20:00 Ondansetron HCl (Zofran Inj) 4 mg Q4H PRN IV NAUSEA AND/OR VOMITING; Start at 20:00 Polyethylene Glycol (Miralax) 17 gm DAILY NGT Last administered on 01/03/17 08 :33; Admin Dose 17 GM; Start 12/31/16 at 09:00 Potassium Chloride (Potassium Chloride Pwd/Soln) 40 meq DAILY NGT Last administered on 01/04/17 08:38; Admin Dose 40 MEQ; Start 12/31/16 at 09:00 Ticagrelor (Brilinta) 90 mg BID PO Last administered on 01/04/17 08:38; Admin Dose 90 MG; Start 12/30/16 at 21:00 Miscellaneous Information 1 ea NOTE XX ; Start 12/30/16 at 20:00 Glucose (Glutose) 15 gm Q15M PRN PO DECREASED GLUCOSE; Start 12/30/16 at 20:00 Glucose (Glutose) 22.5 gm Q15M PRN PO DECREASED GLUCOSE; Start 12/30/16 at 20: 00 Dextrose (D50w Syringe) 25 ml Q15M PRN IV DECREASED GLUCOSE; Start 12/30/16 at 20:00 Dextrose (D50w Syringe) 50 ml Q15M PRN IV DECREASED GLUCOSE; Start 12/30/16 at 20:00 Glucagon (Glucagen) 1 mg Q15M PRN IM DECREASED GLUCOSE; Start 12/30/16 at 20:00 Glucose (Glutose) 15 gm Q15M PRN BUCCAL DECREASED GLUCOSE; Start 12/30/16 at 20 :00 Bisacodyl (Dulcolax Supp) 10 mg DAILY PRN [place] CONSTIPATION; Start 12/31/16 at 00 :30 Magnesium Hydroxide (Milk Of Mag) 30 ml BID PRN PO CONSTIPATION; Start at 00:30 Lactulose (Enulose) 20 gm DAILY PRN PO CONSTIPATION; Start 12/31/16 at 00:30 Insulin Glargine (Lantus) 18 unit DAILY@20 SC Last administered on 01/03/17 20 :56; Admin Dose 18 UNIT; Start 01/02/17 at 20:00 Furosemide (Lasix) 20 mg DAILY PO ; Start 01/03/17 at 09:00 ANGELINE DRUMMOND Jan 04, 2017 10:10
--- NOTE | 2017-01-04 13:31 | CONS ---
Date/Time of Note Date/Time of Note DATE: 01/04/17 TIME: 13:30 Assessment/Plan Assessment/Plan Additional Assessment/Plan CAD s/p stenting with high grade lesion in LAD and LcX Ischemic cardiomyopathy Respiratory failure emphysema anemia Diabetes Hypothyroidism Hemodynamically stable Continue metoprolol Continue Lisinopril Continue ASA and Brilinta Continue Lipitor Awaiting Bypass Consultation Date/Type/Reason Admit Date/Time Dec 30, 2016 at 18:40 Initial Consult Date Type of Consultation: Internal medicine Referring Provider: GRIFFIN CHEW Exam/Review of Systems Vital Signs Vitals Vital Signs Date Time Temp Pulse Resp B/P Pulse Ox O2 Delivery O2 Flow Rate FiO2 01/04/17 08:45 84 20 96 21 01/04/17 01:53 98.7 106/56 Room Air 01/02/17 08:00 Intake and Output 01/03/17 01/03/17 01/04/17 15:00 23:00 07:00 Intake Total 850 ml 880 ml 400 ml Output Total 400 ml 650 ml 350 ml Balance 450 ml 230 ml 50 ml Exam Constitutional: alert, oriented Head: atraumatic, normocephalic Respiratory: clear to auscultation Cardiovascular: regular rate and rhythm Gastrointestinal: nl liver, spleen, non-tender, soft Extremities: normal pulses Results Result Diagram: 12/31/16 0714 12/31/16 0600 Results 24 hrs Laboratory Tests Test 01/03/17 17:16 01/03/17 20:55 01/04/17 01:47 01/04/17 07:33 Bedside Glucose 120 231 H 156 75 Test 01/04/17 11:46 Bedside Glucose 207 Medications Medications Current Medications Acetaminophen (Tylenol Liquid) 650 mg Q6H PRN NGT PAIN AND OR ELEVATED TEMP; Start 12/30/16 at 19:30 Acetaminophen (Tylenol Tab) 650 mg Q4H PRN PO NON-CARDIAC PAIN LEVEL (1-3); Start 12/30/16 at 19:30 Al Hydrox/Mg Hydrox/Simethicone (Mag-Al Plus) 30 ml Q4H PRN PO GASTROINTESTINAL UPSET; Start 12/30/16 at 19:30 Aspirin (Halfprin) 81 mg DAILY PO Last administered on 01/04/17t 08:38; Admin Dose 81 MG; Start 12/31/16 at 09:00 Atorvastatin Calcium (Lipitor) 20 mg HS PO Last administered on 01/03/17 20:52 ; Admin Dose 20 MG; Start 12/30/16 at 21:00 Senna/Docusate Sodium (Senokot-S) 2 tab HS NGT Last administered on 01/03/17 20:52; Admin Dose 2 TAB; Start 12/30/16 at 21:00 Duloxetine HCl (Cymbalta) 20 mg DAILY PO Last administered on 01/04/17 08:38; Admin Dose 20 MG; Start 12/31/16 at 09:00 Famotidine (Pepcid) 20 mg HS PO Last administered on 01/03/17 20:52; Admin Dose 20 MG; Start 12/30/16 at 21:00 Gabapentin (Neurontin) 300 mg TID PO Last administered on 01/04/17 12:03; Admin Dose 300 MG; Start 12/30/16 at 21:00 Guaifenesin (Robitussin Liquid Cup) 100 mg Q6H PRN PO COUGH; Start 12/30/16 at 19:30 Heparin Sodium (Porcine) (Heparin (5000 Units/0.5 ml)) 5,000 unit BID SC Last administered on 01/04/17 08:38; Admin Dose 5,000 UNIT; Start 12/30/16 at 21:00 Levothyroxine Sodium (Synthroid) 112 mcg DAILY@06 PO Last administered on 06:09; Admin Dose 112 MCG; Start 12/31/16 at 06:00 Lisinopril (Zestril) 2.5 mg DAILY PO ; Start 12/31/16 at 09:00 Metoprolol Tartrate (Lopressor) 12.5 mg BID PO Last administered on 01/02/17 20:54; Admin Dose 12.5 MG; Start 12/30/16 at 21:00 Morphine Sulfate (morphine) 2 mg Q2H PRN IV FOR NON CARDIAC PAIN (4-10); Start 12/30/16 at 20:00 Ondansetron HCl (Zofran Inj) 4 mg Q4H PRN IV NAUSEA AND/OR VOMITING; Start at 20:00 Polyethylene Glycol (Miralax) 17 gm DAILY NGT Last administered on 01/03/17 08 :33; Admin Dose 17 GM; Start 12/31/16 at 09:00 Potassium Chloride (Potassium Chloride Pwd/Soln) 40 meq DAILY NGT Last administered on 01/04/17 08:38; Admin Dose 40 MEQ; Start 12/31/16 at 09:00 Ticagrelor (Brilinta) 90 mg BID PO Last administered on 01/04/17 08:38; Admin Dose 90 MG; Start 12/30/16 at 21:00 Miscellaneous Information 1 ea NOTE XX ; Start 12/30/16 at 20:00 Glucose (Glutose) 15 gm Q15M PRN PO DECREASED GLUCOSE; Start 12/30/16 at 20:00 Glucose (Glutose) 22.5 gm Q15M PRN PO DECREASED GLUCOSE; Start 12/30/16 at 20: 00 Dextrose (D50w Syringe) 25 ml Q15M PRN IV DECREASED GLUCOSE; Start 12/30/16 at 20:00 Dextrose (D50w Syringe) 50 ml Q15M PRN IV DECREASED GLUCOSE; Start 12/30/16 at 20:00 Glucagon (Glucagen) 1 mg Q15M PRN IM DECREASED GLUCOSE; Start 12/30/16 at 20:00 Glucose (Glutose) 15 gm Q15M PRN BUCCAL DECREASED GLUCOSE; Start 12/30/16 at 20 :00 Bisacodyl (Dulcolax Supp) 10 mg DAILY PRN [place] CONSTIPATION; Start 12/31/16 at 00 :30 Magnesium Hydroxide (Milk Of Mag) 30 ml BID PRN PO CONSTIPATION; Start at 00:30 Lactulose (Enulose) 20 gm DAILY PRN PO CONSTIPATION; Start 12/31/16 at 00:30 Insulin Glargine (Lantus) 18 unit DAILY@20 SC Last administered on 01/03/17 20 :56; Admin Dose 18 UNIT; Start 01/02/17 at 20:00 Furosemide (Lasix) 20 mg DAILY PO ; Start 01/03/17 at 09:00 HALI ALVARADO M.D. Jan 04, 2017 13:31
[2017-01-04 20:00] VITALS: BP 106/53; RESP 18
[2017-01-04] MEDS: ATORVASTATIN 20 MG TAB PO SCH (20:49)
[2017-01-04] MEDS: FAMOTIDINE 20 MG TAB PO SCH (20:49)
[2017-01-04] MEDS: SENNA/DOCUSATE NA (8.6MG/50MG) TAB NGT SCH (20:50)
[2017-01-04] MEDS: INSULIN GLARGINE [LANtus] 3 ML PEN SC SCH (21:06)
[2017-01-05 02:00] VITALS: BP 109/53; RESP 18
[2017-01-05] MEDS: ALBUTEROL/IPRATROPIUM (NEB) 3 ML AMP HHN SCH ×4 (02:00→20:40)
[2017-01-05] MEDS: LEVOTHYROXINE 112 MCG TAB PO SCH (06:46)
[2017-01-05] MEDS: INSULIN ASPART [NOVOLOG] 3 ML PEN SC SCH ×7 (07:35→21:00)
[2017-01-05 07:42] VITALS: BP 114/57; RESP 18
[2017-01-05] MEDS: DULOXETINE 20 MG CAP DR PO SCH (08:35)
[2017-01-05] MEDS: HEPARIN 5,000 UNIT/0.5 ML VIAL SC SCH ×2 (08:37→21:00)
[2017-01-05] MEDS: GABAPENTIN 300 MG CAP PO SCH ×3 (08:37→21:00)
[2017-01-05] MEDS: POTASSIUM CHLORIDE 20 MEQ POWDER FOR ORAL SOLN NGT SCH (08:37)
[2017-01-05] MEDS: POLYETHYLENE GLYCOL 17 GM PACKET NGT SCH (08:37)
[2017-01-05] MEDS: FUROSEMIDE 20 MG TAB PO SCH (08:38)
[2017-01-05] MEDS: TICAGRELOR 90 MG TABLET PO SCH ×2 (08:38→21:00)
[2017-01-05] MEDS: ASPIRIN (EC) 81 MG TAB PO SCH (08:38)
[2017-01-05] MEDS: METOPROLOL 25 MG TAB PO SCH ×2 (08:39→21:00)
[2017-01-05] MEDS: LISINOPRIL 5 MG TAB PO SCH (08:39)
--- NOTE | 2017-01-05 11:16 | PN ---
Date/Time of Note Date/Time of Note DATE: 01/05/17 TIME: 11:16 Assessment/Plan Lines/Catheters IV C[facility] Type ([facility] Saline Lock Urinary Cath still in place: No Assessment/Plan Chief Complaint/Hosp Course Assessment 1. Non-ST elevation ID with multivessel coronary artery disease on coronary angiogram. Pending coronary artery bypass graft surgery when clinically improved 2. History of COPD currently stable, CT chest noncontrast requested preoperative evaluation 3. Status post pneumonia resolved 4. Dysphagia with possible Underlying neck mass, MRI requested 5. Significant deconditioning 6. Diabetes mellitus still with elevated blood glucose. Plan 1. Continue cardiac recommendations JAXON beta-enmanuel and aspirin and Brilinta 2. Continue bronchodilators 3. Physical therapy and Occupational Therapy 4. Preoperative pulmonary function tests when more stable 5. Advance of smoking cessation 6. Tight glycemic management increase Lantus and short acting insulin. 7. CT chest reviewed. No mention of any abnormalities in the neck. I will discuss with radiology. Problems: Exam/Review of Systems Vital Signs Vitals Vital Signs Date Time Temp Pulse Resp B/P Pulse Ox O2 Delivery O2 Flow Rate FiO2 01/05/17 07:42 98.7 83 18 114/57 96 01/05/17 07:25 21 01/04/17 01:53 Room Air 01/02/17 08:00 Intake and Output 01/04/17 01/04/17 01/05/17 15:00 23:00 07:00 Intake Total 480 ml Balance 480 ml Results Results 24 hrs Laboratory Tests Test 01/04/17 11:46 01/04/17 17:18 01/04/17 20:48 01/05/17 01:41 Bedside Glucose 207 282 H 264 H 113 Test 01/05/17 07:45 Bedside Glucose 70 Medications Medications Current Medications Acetaminophen (Tylenol Liquid) 650 mg Q6H PRN NGT PAIN AND OR ELEVATED TEMP; Start 12/30/16 at 19:30 Acetaminophen (Tylenol Tab) 650 mg Q4H PRN PO NON-CARDIAC PAIN LEVEL (1-3); Start 12/30/16 at 19:30 Al Hydrox/Mg Hydrox/Simethicone (Mag-Al Plus) 30 ml Q4H PRN PO GASTROINTESTINAL UPSET; Start 12/30/16 at 19:30 Aspirin (Halfprin) 81 mg DAILY PO Last administered on 01/05/17t 08:38; Admin Dose 81 MG; Start 12/31/16 at 09:00 Atorvastatin Calcium (Lipitor) 20 mg HS PO Last administered on 01/04/17 20:49 ; Admin Dose 20 MG; Start 12/30/16 at 21:00 Senna/Docusate Sodium (Senokot-S) 2 tab HS NGT Last administered on 01/04/17 20:50; Admin Dose 2 TAB; Start 12/30/16 at 21:00 Duloxetine HCl (Cymbalta) 20 mg DAILY PO Last administered on 01/05/17 08:35; Admin Dose 20 MG; Start 12/31/16 at 09:00 Famotidine (Pepcid) 20 mg HS PO Last administered on 01/04/17 20:49; Admin Dose 20 MG; Start 12/30/16 at 21:00 Gabapentin (Neurontin) 300 mg TID PO Last administered on 01/05/17 08:37; Admin Dose 300 MG; Start 12/30/16 at 21:00 Guaifenesin (Robitussin Liquid Cup) 100 mg Q6H PRN PO COUGH; Start 12/30/16 at 19:30 Heparin Sodium (Porcine) (Heparin (5000 Units/0.5 ml)) 5,000 unit BID SC Last administered on 01/05/17 08:37; Admin Dose 5,000 UNIT; Start 12/30/16 at 21:00 Levothyroxine Sodium (Synthroid) 112 mcg DAILY@06 PO Last administered on 06:46; Admin Dose 112 MCG; Start 12/31/16 at 06:00 Lisinopril (Zestril) 2.5 mg DAILY PO ; Start 12/31/16 at 09:00 Metoprolol Tartrate (Lopressor) 12.5 mg BID PO Last administered on 01/02/17 20:54; Admin Dose 12.5 MG; Start 12/30/16 at 21:00 Morphine Sulfate (morphine) 2 mg Q2H PRN IV FOR NON CARDIAC PAIN (4-10); Start 12/30/16 at 20:00 Ondansetron HCl (Zofran Inj) 4 mg Q4H PRN IV NAUSEA AND/OR VOMITING; Start at 20:00 Polyethylene Glycol (Miralax) 17 gm DAILY NGT Last administered on 01/05/17 08 :37; Admin Dose 17 GM; Start 12/31/16 at 09:00 Potassium Chloride (Potassium Chloride Pwd/Soln) 40 meq DAILY NGT Last administered on 01/05/17 08:37; Admin Dose 40 MEQ; Start 12/31/16 at 09:00 Ticagrelor (Brilinta) 90 mg BID PO Last administered on 01/05/17 08:38; Admin Dose 90 MG; Start 12/30/16 at 21:00 Miscellaneous Information 1 ea NOTE XX ; Start 12/30/16 at 20:00 Glucose (Glutose) 15 gm Q15M PRN PO DECREASED GLUCOSE; Start 12/30/16 at 20:00 Glucose (Glutose) 22.5 gm Q15M PRN PO DECREASED GLUCOSE; Start 12/30/16 at 20: 00 Dextrose (D50w Syringe) 25 ml Q15M PRN IV DECREASED GLUCOSE; Start 12/30/16 at 20:00 Dextrose (D50w Syringe) 50 ml Q15M PRN IV DECREASED GLUCOSE; Start 12/30/16 at 20:00 Glucagon (Glucagen) 1 mg Q15M PRN IM DECREASED GLUCOSE; Start 12/30/16 at 20:00 Glucose (Glutose) 15 gm Q15M PRN BUCCAL DECREASED GLUCOSE; Start 12/30/16 at 20 :00 Bisacodyl (Dulcolax Supp) 10 mg DAILY PRN [place] CONSTIPATION; Start 12/31/16 at 00 :30 Magnesium Hydroxide (Milk Of Mag) 30 ml BID PRN PO CONSTIPATION; Start at 00:30 Lactulose (Enulose) 20 gm DAILY PRN PO CONSTIPATION; Start 12/31/16 at 00:30 Insulin Glargine (Lantus) 18 unit DAILY@20 SC Last administered on 01/04/17 21 :06; Admin Dose 18 UNIT; Start 01/02/17 at 20:00 Furosemide (Lasix) 20 mg DAILY PO Last administered on 01/05/17 08:38; Admin Dose 20 MG; Start 01/03/17 at 09:00 TAD HIGGINS NP Jan 05, 2017 11:16
--- NOTE | 2017-01-05 11:19 | CONS ---
Date/Time of Note Date/Time of Note DATE: 01/05/17 TIME: 11:19 Assessment/Plan Assessment/Plan Chief Complaint/Hosp Course 1. Non-ST elevation MS with multivessel coronary artery disease on coronary angiogram. -Pending coronary artery bypass graft surgery when clinically improved -Continue cardiac recommendations: JAXON beta-enmanuel,aspirin and Brilinta 2. History of COPD currently stable, CT chest noncontrast requested preoperative evaluation -Continue bronchodilators. -Counseled on smoking cessation. -Patient needs preoperative pulmonary function study prior to any surgical intervention for #1. 3. Status post pneumonia resolved 4. Dysphagia with possible Underlying neck mass, MRI requested -Patient is tolerating pured diet. ST following. 5. Significant deconditioning Continue with PT/OT/rehabilitation. 6. Diabetes mellitus still with elevated blood glucose. -Currently patient is no where at her home insulin regimen. We will increase Lantus dose to home dose at 30 units daily -Increase pre-meals to 10 units and continue sliding scale. Case discussed with Problems: Consultation Date/Type/Reason Admit Date/Time Dec 30, 2016 at 18:40 Initial Consult Date Type of Consultation: Internal medicine Referring Provider: GRIFFIN CHEW 24 HR Interval Summary Free Text/Dictation No acute overnight episodes. Exam/Review of Systems Vital Signs Vitals Vital Signs Date Time Temp Pulse Resp B/P Pulse Ox O2 Delivery O2 Flow Rate FiO2 01/05/17 07:42 98.7 83 18 114/57 96 01/05/17 07:25 21 01/04/17 01:53 Room Air 01/02/17 08:00 Intake and Output 01/04/17 01/04/17 01/05/17 15:00 23:00 07:00 Intake Total 480 ml Balance 480 ml Exam General: Well developed,adequately built, not in any acute distress . HEENT: Normocephalic, Atraumatic, No laceration or hematoma; Eyes: PEERL, Conjunctiva clear, Anicteric sclera Neck: Supple without any lymphadenopathy, nontender, no JVD, no carotid bruits, trachea midline, no thyromegaly Cardiac: S1, S2 auscultated, regular rhythm and rate, no mumurs or gallop Pulmonary: Normal respiratory effort. Chest clear to auscultation bilaterally, no adventitious breath sounds GI: Abdomen normal to inspection. Soft, non tender, non- distended, no masses, no rebound tenderness or guarding. Bowel sounds active on all four quadrants Genitourinary: Deferred Extremities: With generalized weakness. No cyanosis, clubbing, or edema. Pulses [2+] bilaterally. Full ROM on all four extremities. No focal weakness appreciated. Neurologic: Alert to person, place, time, and situation. Affect appropriate, intact sensation. Skin: Clean,dry, and intact. No ecchymosis, no rashes, or lesions Results Results 24 hrs Laboratory Tests Test 01/04/17 11:46 01/04/17 17:18 01/04/17 20:48 01/05/17 01:41 Bedside Glucose 207 282 H 264 H 113 Test 01/05/17 07:45 Bedside Glucose 70 Medications Medications Current Medications Acetaminophen (Tylenol Liquid) 650 mg Q6H PRN NGT PAIN AND OR ELEVATED TEMP; Start 12/30/16 at 19:30 Acetaminophen (Tylenol Tab) 650 mg Q4H PRN PO NON-CARDIAC PAIN LEVEL (1-3); Start 12/30/16 at 19:30 Al Hydrox/Mg Hydrox/Simethicone (Mag-Al Plus) 30 ml Q4H PRN PO GASTROINTESTINAL UPSET; Start 12/30/16 at 19:30 Aspirin (Halfprin) 81 mg DAILY PO Last administered on 01/05/17 08:38; Admin Dose 81 MG; Start 12/31/16 at 09:00 Atorvastatin Calcium (Lipitor) 20 mg HS PO Last administered on 01/04/17 20:49 ; Admin Dose 20 MG; Start 12/30/16 at 21:00 Senna/Docusate Sodium (Senokot-S) 2 tab HS NGT Last administered on 01/04/17 20:50; Admin Dose 2 TAB; Start 12/30/16 at 21:00 Duloxetine HCl (Cymbalta) 20 mg DAILY PO Last administered on 01/05/17 08:35; Admin Dose 20 MG; Start 12/31/16 at 09:00 Famotidine (Pepcid) 20 mg HS PO Last administered on 01/04/17 20:49; Admin Dose 20 MG; Start 12/30/16 at 21:00 Gabapentin (Neurontin) 300 mg TID PO Last administered on 01/05/17 08:37; Admin Dose 300 MG; Start 12/30/16 at 21:00 Guaifenesin (Robitussin Liquid Cup) 100 mg Q6H PRN PO COUGH; Start 12/30/16 at 19:30 Heparin Sodium (Porcine) (Heparin (5000 Units/0.5 ml)) 5,000 unit BID SC Last administered on 01/05/17 08:37; Admin Dose 5,000 UNIT; Start 12/30/16 at 21:00 Levothyroxine Sodium (Synthroid) 112 mcg DAILY@06 PO Last administered on 06:46; Admin Dose 112 MCG; Start 12/31/16 at 06:00 Lisinopril (Zestril) 2.5 mg DAILY PO ; Start 12/31/16 at 09:00 Metoprolol Tartrate (Lopressor) 12.5 mg BID PO Last administered on 01/02/17 20:54; Admin Dose 12.5 MG; Start 12/30/16 at 21:00 Morphine Sulfate (morphine) 2 mg Q2H PRN IV FOR NON CARDIAC PAIN (4-10); Start 12/30/16 at 20:00 Ondansetron HCl (Zofran Inj) 4 mg Q4H PRN IV NAUSEA AND/OR VOMITING; Start at 20:00 Polyethylene Glycol (Miralax) 17 gm DAILY NGT Last administered on 01/05/17 08 :37; Admin Dose 17 GM; Start 12/31/16 at 09:00 Potassium Chloride (Potassium Chloride Pwd/Soln) 40 meq DAILY NGT Last administered on 01/05/17 08:37; Admin Dose 40 MEQ; Start 12/31/16 at 09:00 Ticagrelor (Brilinta) 90 mg BID PO Last administered on 01/05/17 08:38; Admin Dose 90 MG; Start 12/30/16 at 21:00 Miscellaneous Information 1 ea NOTE XX ; Start 12/30/16 at 20:00 Glucose (Glutose) 15 gm Q15M PRN PO DECREASED GLUCOSE; Start 12/30/16 at 20:00 Glucose (Glutose) 22.5 gm Q15M PRN PO DECREASED GLUCOSE; Start 12/30/16 at 20: 00 Dextrose (D50w Syringe) 25 ml Q15M PRN IV DECREASED GLUCOSE; Start 12/30/16 at 20:00 Dextrose (D50w Syringe) 50 ml Q15M PRN IV DECREASED GLUCOSE; Start 12/30/16 at 20:00 Glucagon (Glucagen) 1 mg Q15M PRN IM DECREASED GLUCOSE; Start 12/30/16 at 20:00 Glucose (Glutose) 15 gm Q15M PRN BUCCAL DECREASED GLUCOSE; Start 12/30/16 at 20 :00 Bisacodyl (Dulcolax Supp) 10 mg DAILY PRN [place] CONSTIPATION; Start 12/31/16 at 00 :30 Magnesium Hydroxide (Milk Of Mag) 30 ml BID PRN PO CONSTIPATION; Start at 00:30 Lactulose (Enulose) 20 gm DAILY PRN PO CONSTIPATION; Start 12/31/16 at 00:30 Insulin Glargine (Lantus) 18 unit DAILY@20 SC Last administered on 01/04/17 21 :06; Admin Dose 18 UNIT; Start 01/02/17 at 20:00 Furosemide (Lasix) 20 mg DAILY PO Last administered on 01/05/17 08:38; Admin Dose 20 MG; Start 01/03/17 at 09:00 TAD HIGGINS NP Jan 05, 2017 11:19
--- NOTE | 2017-01-05 13:42 | CONS ---
Date/Time of Note Date/Time of Note DATE: 01/05/17 TIME: 13:40 Assessment/Plan Assessment/Plan Chief Complaint/Hosp Course IMP: 1.NSTEMI-peak trop>60 Now dowtrended significantly s/p LHC with patent RCA stents and high grade disease of LAD/LCX with small caliber vessels and recc for CABG. Still ongoing surgical eval and question date of possible surgery? 2.cardiomyopathy-LVEF 40-45 BY OSH echo. 25% by echo read here 3.Hypotension-improved off of pressors with some lability and holding of anti- hypertenives at times 4.resp failure s/p extubation requiring PRN BIPAP which has now improved and not requiring further at this time 5.anemia 6. AMS/encephalopathy 7. PNA-ongoing by chest CT 8. COPD 9. Hypothyroid 10.DM-very labile BS Recc: -Now transferred to acute rehab -Follow BP closely and continue low dose BB/ACEI as tolerated only -Continue asa/brilinta -Continue statin -Follow volume status closely and continue will resume low dose lasix -Smoking cessation -Follow BS closely and adjust insulin therapy as necessary -Continue abx's and f/u cx data -Continue bronchodilators -CT surgical eval ongoing and have discussed with daughter/patient who are agreeable and CT surgery following with pnding date of surgery? Per CT surgery possible early next week-will contact again as do not see any recent notes in chart about timimg of surgery Problems: Consultation Date/Type/Reason Admit Date/Time Dec 30, 2016 at 18:40 Initial Consult Date 12/30/2016 Type of Consultation: cardiology Reason for Consultation nstemi Referring Provider: GRIFFIN CHEW Exam/Review of Systems Vital Signs Vitals Vital Signs Date Time Temp Pulse Resp B/P Pulse Ox O2 Delivery O2 Flow Rate FiO2 01/05/17 07:42 98.7 83 18 114/57 96 01/05/17 07:25 21 01/04/17 01:53 Room Air 01/02/17 08:00 Intake and Output 01/04/17 01/04/17 01/05/17 15:00 23:00 07:00 Intake Total 480 ml Balance 480 ml Exam Review of Systems: CONSTITUTIONAL: No fevers, chills. PULMONARY: No sob CARDIOVASCULAR: No chest pain/palpitations GASTROINTESTINAL: No nausea/vomiting. GENITOURINARY: No hematuria/dysuria. MUSCULOSKELETAL: No myagias/arthalgias. PSYCHIATRIC: The patient denies depression. NEUROLOGIC: No weakness Constitutional: alert Psych: no complaints Head: normocephalic ENMT: mucosa pink and moist Neck: jvd (9 cm water), supple Respiratory: clear to auscultation Cardiovascular: regular rate and rhythm Gastrointestinal: soft Musculoskeletal: muscle weakness (mild generalized) Extremities: edema (none) 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: other (No focal deficits) Results Results 24 hrs Laboratory Tests Test 01/04/17 17:18 01/04/17 20:48 01/05/17 01:41 01/05/17 07:45 Bedside Glucose 282 H 264 H 113 70 Test 01/05/17 11:55 01/05/17 13:12 Bedside Glucose 399 H 305 H Medications Medications Current Medications Acetaminophen (Tylenol Liquid) 650 mg Q6H PRN NGT PAIN AND OR ELEVATED TEMP; Start 12/30/16 at 19:30 Acetaminophen (Tylenol Tab) 650 mg Q4H PRN PO NON-CARDIAC PAIN LEVEL (1-3); Start 12/30/16 at 19:30 Al Hydrox/Mg Hydrox/Simethicone (Mag-Al Plus) 30 ml Q4H PRN PO GASTROINTESTINAL UPSET; Start 12/30/16 at 19:30 Aspirin (Halfprin) 81 mg DAILY PO Last administered on 01/05/17 08:38; Admin Dose 81 MG; Start 12/31/16 at 09:00 Atorvastatin Calcium (Lipitor) 20 mg HS PO Last administered on 01/04/17 20:49 ; Admin Dose 20 MG; Start 12/30/16 at 21:00 Senna/Docusate Sodium (Senokot-S) 2 tab HS NGT Last administered on 01/04/17 20:50; Admin Dose 2 TAB; Start 12/30/16 at 21:00 Duloxetine HCl (Cymbalta) 20 mg DAILY PO Last administered on 01/05/17 08:35; Admin Dose 20 MG; Start 12/31/16 at 09:00 Famotidine (Pepcid) 20 mg HS PO Last administered on 01/04/17 20:49; Admin Dose 20 MG; Start 12/30/16 at 21:00 Gabapentin (Neurontin) 300 mg TID PO Last administered on 01/05/17 12:35; Admin Dose 300 MG; Start 12/30/16 at 21:00 Guaifenesin (Robitussin Liquid Cup) 100 mg Q6H PRN PO COUGH; Start 12/30/16 at 19:30 Heparin Sodium (Porcine) (Heparin (5000 Units/0.5 ml)) 5,000 unit BID SC Last administered on 01/05/17 08:37; Admin Dose 5,000 UNIT; Start 12/30/16 at 21:00 Levothyroxine Sodium (Synthroid) 112 mcg DAILY@06 PO Last administered on 06:46; Admin Dose 112 MCG; Start 12/31/16 at 06:00 Lisinopril (Zestril) 2.5 mg DAILY PO ; Start 12/31/16 at 09:00 Metoprolol Tartrate (Lopressor) 12.5 mg BID PO Last administered on 01/02/17 20:54; Admin Dose 12.5 MG; Start 12/30/16 at 21:00 Morphine Sulfate (morphine) 2 mg Q2H PRN IV FOR NON CARDIAC PAIN (4-10); Start 12/30/16 at 20:00 Ondansetron HCl (Zofran Inj) 4 mg Q4H PRN IV NAUSEA AND/OR VOMITING; Start at 20:00 Polyethylene Glycol (Miralax) 17 gm DAILY NGT Last administered on 01/05/17 08 :37; Admin Dose 17 GM; Start 12/31/16 at 09:00 Potassium Chloride (Potassium Chloride Pwd/Soln) 40 meq DAILY NGT Last administered on 01/05/17 08:37; Admin Dose 40 MEQ; Start 12/31/16 at 09:00 Ticagrelor (Brilinta) 90 mg BID PO Last administered on 01/05/17 08:38; Admin Dose 90 MG; Start 12/30/16 at 21:00 Miscellaneous Information 1 ea NOTE XX ; Start 12/30/16 at 20:00 Glucose (Glutose) 15 gm Q15M PRN PO DECREASED GLUCOSE; Start 12/30/16 at 20:00 Glucose (Glutose) 22.5 gm Q15M PRN PO DECREASED GLUCOSE; Start 12/30/16 at 20: 00 Dextrose (D50w Syringe) 25 ml Q15M PRN IV DECREASED GLUCOSE; Start 12/30/16 at 20:00 Dextrose (D50w Syringe) 50 ml Q15M PRN IV DECREASED GLUCOSE; Start 12/30/16 at 20:00 Glucagon (Glucagen) 1 mg Q15M PRN IM DECREASED GLUCOSE; Start 12/30/16 at 20:00 Glucose (Glutose) 15 gm Q15M PRN BUCCAL DECREASED GLUCOSE; Start 12/30/16 at 20 :00 Bisacodyl (Dulcolax Supp) 10 mg DAILY PRN [place] CONSTIPATION; Start 12/31/16 at 00 :30 Magnesium Hydroxide (Milk Of Mag) 30 ml BID PRN PO CONSTIPATION; Start at 00:30 Lactulose (Enulose) 20 gm DAILY PRN PO CONSTIPATION; Start 12/31/16 at 00:30 Insulin Glargine (Lantus) 18 unit DAILY@20 SC Last administered on 01/04/17 21 :06; Admin Dose 18 UNIT; Start 01/02/17 at 20:00 Furosemide (Lasix) 20 mg DAILY PO Last administered on 01/05/17 08:38; Admin Dose 20 MG; Start 01/03/17 at 09:00 RHONDA PENA Jan 05, 2017 13:42
--- NOTE | 2017-01-05 13:57 | CONS ---
Date/Time of Note Date/Time of Note DATE: 01/05/17 TIME: 13:56 Consult Date/Type/Reason Admit Date/Time Dec 30, 2016 at 18:40 Type of Consultation: cardiology Ordering Provider: GRIFFIN CHEW Objective Vital Signs Date Time Temp Pulse Resp B/P Pulse Ox O2 Delivery O2 Flow Rate FiO2 01/05/17 07:42 98.7 83 18 114/57 96 01/05/17 07:25 21 01/04/17 01:53 Room Air 01/02/17 08:00 Intake and Output 01/04/17 01/04/17 01/05/17 15:00 23:00 07:00 Intake Total 480 ml Balance 480 ml INTERDISCIPLINARY TEAM CONFERENCE BOWEL- Cont BLADDER-Cont SKIN- intact OT- DRESSING-cga/min BATHING-cga/min TOILETING-cga/min PT- BED MOBILITY-cga/min TRANSFERS-cga/min AMBULATION-cga 50 feet SPEECH- COGNITION-sba/s DYPHAGIA-puree diet A/P- Interdisciplinary team conference held today. Please see interdisciplinary sheet. Working toward d.c. on 01/12 with post discharge follow up of physical therapy, occupational therapy, unless Cardiac surgery scheduled. Results/Medications Results 24 hrs Laboratory Tests Test 01/04/17 17:18 01/04/17 20:48 01/05/17 01:41 01/05/17 07:45 Bedside Glucose 282 H 264 H 113 70 Test 01/05/17 11:55 01/05/17 13:12 Bedside Glucose 399 H 305 H Medications Current Medications Acetaminophen (Tylenol Liquid) 650 mg Q6H PRN NGT PAIN AND OR ELEVATED TEMP; Start 12/30/16 at 19:30 Acetaminophen (Tylenol Tab) 650 mg Q4H PRN PO NON-CARDIAC PAIN LEVEL (1-3); Start 12/30/16 at 19:30 Al Hydrox/Mg Hydrox/Simethicone (Mag-Al Plus) 30 ml Q4H PRN PO GASTROINTESTINAL UPSET; Start 12/30/16 at 19:30 Aspirin (Halfprin) 81 mg DAILY PO Last administered on 01/05/17 08:38; Admin Dose 81 MG; Start 12/31/16 at 09:00 Atorvastatin Calcium (Lipitor) 20 mg HS PO Last administered on 01/04/17 20:49 ; Admin Dose 20 MG; Start 12/30/16 at 21:00 Senna/Docusate Sodium (Senokot-S) 2 tab HS NGT Last administered on 01/04/17 20:50; Admin Dose 2 TAB; Start 12/30/16 at 21:00 Duloxetine HCl (Cymbalta) 20 mg DAILY PO Last administered on 01/05/17 08:35; Admin Dose 20 MG; Start 12/31/16 at 09:00 Famotidine (Pepcid) 20 mg HS PO Last administered on 01/04/17 20:49; Admin Dose 20 MG; Start 12/30/16 at 21:00 Gabapentin (Neurontin) 300 mg TID PO Last administered on 01/05/17 12:35; Admin Dose 300 MG; Start 12/30/16 at 21:00 Guaifenesin (Robitussin Liquid Cup) 100 mg Q6H PRN PO COUGH; Start 12/30/16 at 19:30 Heparin Sodium (Porcine) (Heparin (5000 Units/0.5 ml)) 5,000 unit BID SC Last administered on 01/05/17 08:37; Admin Dose 5,000 UNIT; Start 12/30/16 at 21:00 Levothyroxine Sodium (Synthroid) 112 mcg DAILY@06 PO Last administered on 06:46; Admin Dose 112 MCG; Start 12/31/16 at 06:00 Lisinopril (Zestril) 2.5 mg DAILY PO ; Start 12/31/16 at 09:00 Metoprolol Tartrate (Lopressor) 12.5 mg BID PO Last administered on 01/02/17 20:54; Admin Dose 12.5 MG; Start 12/30/16 at 21:00 Morphine Sulfate (morphine) 2 mg Q2H PRN IV FOR NON CARDIAC PAIN (4-10); Start 12/30/16 at 20:00 Ondansetron HCl (Zofran Inj) 4 mg Q4H PRN IV NAUSEA AND/OR VOMITING; Start at 20:00 Polyethylene Glycol (Miralax) 17 gm DAILY NGT Last administered on 01/05/17 08 :37; Admin Dose 17 GM; Start 12/31/16 at 09:00 Potassium Chloride (Potassium Chloride Pwd/Soln) 40 meq DAILY NGT Last administered on 01/05/17 08:37; Admin Dose 40 MEQ; Start 12/31/16 at 09:00 Ticagrelor (Brilinta) 90 mg BID PO Last administered on 01/05/17 08:38; Admin Dose 90 MG; Start 12/30/16 at 21:00 Miscellaneous Information 1 ea NOTE XX ; Start 12/30/16 at 20:00 Glucose (Glutose) 15 gm Q15M PRN PO DECREASED GLUCOSE; Start 12/30/16 at 20:00 Glucose (Glutose) 22.5 gm Q15M PRN PO DECREASED GLUCOSE; Start 12/30/16 at 20: 00 Dextrose (D50w Syringe) 25 ml Q15M PRN IV DECREASED GLUCOSE; Start 12/30/16 at 20:00 Dextrose (D50w Syringe) 50 ml Q15M PRN IV DECREASED GLUCOSE; Start 12/30/16 at 20:00 Glucagon (Glucagen) 1 mg Q15M PRN IM DECREASED GLUCOSE; Start 12/30/16 at 20:00 Glucose (Glutose) 15 gm Q15M PRN BUCCAL DECREASED GLUCOSE; Start 12/30/16 at 20 :00 Bisacodyl (Dulcolax Supp) 10 mg DAILY PRN [place] CONSTIPATION; Start 12/31/16 at 00 :30 Magnesium Hydroxide (Milk Of Mag) 30 ml BID PRN PO CONSTIPATION; Start at 00:30 Lactulose (Enulose) 20 gm DAILY PRN PO CONSTIPATION; Start 12/31/16 at 00:30 Insulin Glargine (Lantus) 18 unit DAILY@20 SC Last administered on 01/04/17 21 :06; Admin Dose 18 UNIT; Start 01/02/17 at 20:00 Furosemide (Lasix) 20 mg DAILY PO Last administered on 01/05/17 08:38; Admin Dose 20 MG; Start 01/03/17 at 09:00 JORGE MESSINA MD Jan 05, 2017 13:57
[2017-01-05 14:00] VITALS: BP 88/42; RESP 18
[2017-01-05] MEDS ORDERED: INSULIN GLARGINE [LANtus] 3 ML PEN SC SCH (20:00)
[2017-01-05] MEDS: FAMOTIDINE 20 MG TAB PO SCH (21:00)
[2017-01-05] MEDS: SENNA/DOCUSATE NA (8.6MG/50MG) TAB NGT SCH (21:00)
[2017-01-05] MEDS: ATORVASTATIN 20 MG TAB PO SCH (21:00)
[2017-01-06 02:00] VITALS: BP 103/54; RESP 18
[2017-01-06] MEDS: ALBUTEROL/IPRATROPIUM (NEB) 3 ML AMP HHN SCH ×2 (02:00→07:18)
[2017-01-06] MEDS: LEVOTHYROXINE 112 MCG TAB PO SCH (06:08)
[2017-01-06 07:32] VITALS: BP 114/56; RESP 18
[2017-01-06] MEDS: INSULIN ASPART [NOVOLOG] 3 ML PEN SC SCH ×2 (07:35→08:38)
[2017-01-06] MEDS: POLYETHYLENE GLYCOL 17 GM PACKET NGT SCH ×2 (08:39→08:56)
[2017-01-06] MEDS: POTASSIUM CHLORIDE 20 MEQ POWDER FOR ORAL SOLN NGT SCH (08:40)
[2017-01-06] MEDS: ASPIRIN (EC) 81 MG TAB PO SCH (08:41)
[2017-01-06] MEDS: DULOXETINE 20 MG CAP DR PO SCH (08:41)
[2017-01-06] MEDS: TICAGRELOR 90 MG TABLET PO SCH (08:41)
[2017-01-06] MEDS: FUROSEMIDE 20 MG TAB PO SCH (08:42)
[2017-01-06] MEDS: GABAPENTIN 300 MG CAP PO SCH (08:43)
[2017-01-06] MEDS: METOPROLOL 25 MG TAB PO SCH ×2 (08:43→08:46)
[2017-01-06] MEDS: HEPARIN 5,000 UNIT/0.5 ML VIAL SC SCH (08:44)
[2017-01-06] MEDS: LISINOPRIL 5 MG TAB PO SCH ×2 (08:44→08:48)
--- NOTE | 2017-01-06 10:58 | DS ---
Date/Time of Note Date/Time of Note DATE: 01/06/17 TIME: 10:50 Discharge Summary Admission/Discharge Info Admit Date/Time Dec 30, 2016 at 18:40 Discharge Date/Time Jan 06, 2017 at 10:36 Discharge Diagnosis Severe orthostatic hypotension, with decreased systolic blood pressure to the low 70s with standing Cardiac-coronary artery disease; status post MS; followed closely by cardiology , with the possibility of cardiac surgery Toxic metabolic encephalopathy-resolved Dysphasia-patient with notable dysphasia. She has been followed closely by speech therapy. She has a notable underlying neck mass with MRI of the neck pending Pulmonology -status post respiratory failure; status post pneumonia; pulmonary nodules noted on CT Diabetes mellitus type 2 status post DKA Impairments in self-care and mobility Patient Condition: Serious Hospital Course Patient was admitted for comprehensive interdisciplinary acute rehab and initially made steady functional gains with improved ambulation. Patient however has been noted to have significant hypotension over the course of the last 2 days and has been unable to participate in out of bed activities due to the hypotension. Patient also has been followed closely by speech therapy for her dysphasia. She has notable underlying neck mass with MRI of the neck pending. Given the significant orthostatic hypotension, and inability to currently participate in the acute rehabilitation unit program, patient is being transferred to the acute hospital for further care and workup. Home Meds Active Scripts Isosorbide Dinitrate* (Isordil*) 10 Mg Tablet, 10 MG PO TID for 30 Days, TAB Prov:TAD POPE 08/29/16 Insulin Glargine* (Lantus*) 100 Unit/Ml Soln, 30 UNIT SC DAILY@20 for 30 Days Prov:TAD POPE 08/29/16 Insulin Aspart* (Novolog Insulin Pen*) 100 Unit/Ml Soln, 12 UNIT SC WITH MEALS for 30 Days Prov:TAD POPE 08/29/16 Metoprolol Tartrate* (Lopressor*) 25 Mg Tab, 12.5 MG PO BID for 30 Days, TAB Prov:TAD POPE 08/29/16 Aspirin* (Aspirin* EC) 81 Mg Tabec, 81 MG PO DAILY for 30 Days, #30 Prov:TAD POPE 08/29/16 Ticagrelor* (Brilinta*) 90 Mg Tablet, 90 MG PO BID for 30 Days, #60 Prov:TAD POPE 08/29/16 Atorvastatin Calcium* (Atorvastatin Calcium*) 20 Mg Tablet, 20 MG PO HS for 30 Days, TAB Prov:TAD POPE 08/29/16 Duloxetine Hcl* (Duloxetine Hcl*) 20 Mg Capsule.dr, 20 MG PO DAILY for 30 Days, CAP Prov:TAD POPE 08/29/16 Gabapentin* (Gabapentin*) 300 Mg Capsule, 300 MG PO TID for 30 Days, CAP Prov:TAD POPE 08/29/16 Reported Medications Alendronate Sodium* (Fosamax*) 70 Mg Tablet, 70 MG PO Q7D, #4 TAB 08/19/16 Primary Care Provider [facility] Pending Labs Laboratory Tests Test 01/05/17 11:55 01/05/17 13:12 01/05/17 17:30 01/05/17 20:57 Bedside Glucose 399mg/dL (70-220) 305mg/dL (70-220) 190mg/dL (70-220) 139mg/dL (70-220) Test 01/06/17 07:42 01/06/17 08:33 Bedside Glucose 85mg/dL (70-220) 152mg/dL (70-220) JORGE MESSINA MD Jan 06, 2017 10:58
--- NOTE | 2017-01-11 14:10 | CONS ---
DATE OF ADMISSION: 12/30/2016 DATE OF CONSULTATION: 01/04/2017 HISTORY OF PRESENT ILLNESS: This is a 56-year-old female status post recent myocardial infarction. She is planned to have an upcoming coronary artery bypass, and ENT was consulted because of a possible neck mass as well as hoarseness. She is a smoker for some time and was recently admitted for over 2 weeks. She has some dysphagia as well, but no hemoptysis at all. She also denies any otalgia. PAST MEDICAL HISTORY: Type 2 diabetes with recent diabetic ketoacidosis, coronary artery disease status post myocardial infarction, congestive heart failure, hypothyroidism. PAST SURGICAL HISTORY: x2. ALLERGIES: MOTRIN, WHICH GAVE HER A RASH. MEDICATION: Reviewed. SOCIAL HISTORY: Positive for a long history of tobacco abuse. Negative for alcohol or drug abuse. FAMILY HISTORY: Negative for any heart, lung, thyroid disease. REVIEW OF SYSTEMS: A 12-point review of systems is otherwise noncontributory. PHYSICAL EXAMINATION: HEENT: Mucosa without erythema or edema. Oral cavity and oropharynx show tongue, floor of mouth normal. Oropharynx is clear. NECK: No lymphadenopathy or thyromegaly. Trachea is midline. PROCEDURE: Endoscopy was performed through the right nasal cavity. The nasopharynx was clear. The base of the tongue was symmetric. Folliculare was open. Epiglottis normal, vocal cords are moving well. While there are no true vocal cord lesions, she does have a lesion of the posterior wall of the trachea. IMPRESSION: 1. Hoarseness. 2. Tracheal mass via the septum. PLAN: At this point with regards to the hoarseness, it could very well be due to this lesion on the posterior wall of the trachea. With that being said, she was intubated for over 2 weeks according to the patient so it is possible that might have been the cause of this, but with her history of tobacco use I think a biopsy at some point is indicated. I do not feel any lymphadenopathy in the neck at all. Nothing I would do for the [____] at this time as it does not seem to be causing her any problem. With regards to the neck mass, I cannot feel any what so ever. Dictated By: Michael Martinez MD /[email or web address] /Document#: [id number]
== END 2017-01-06 10:36 | disposition short-term general hospital (02) | DRG 93 ==
LOC: VRC 18:40
PROVIDERS: ADMIT Physical Medicine & Rehabilitation; ATTEND Internal Medicine Pulmonary Disease
PROC: F07Z5ZZ Bed Mobility Treatment (ICD-10-PCS; principal; 2016-12-30)
PROC: F08Z2ZZ Grooming/Personal Hygiene Treatment (ICD-10-PCS; 2016-12-30)
PROC: F06Z6ZZ Communicative/Cognitive Integration Skills Treatment (ICD-10-PCS; 2016-12-30)
DX: G92 Toxic encephalopathy (principal); I95.9 Hypotension, unspecified; I50.9 Heart failure, unspecified; E11.9 Type 2 diabetes mellitus without complications; D64.9 Anemia, unspecified; J43.9 Emphysema, unspecified; R13.10 Dysphagia, unspecified; I25.2 Old myocardial infarction; I25.5 Ischemic cardiomyopathy; J44.9 Chronic obstructive pulmonary disease, unspecified; I25.10 Atherosclerotic heart disease of native coronary artery without angina pectoris; E03.9 Hypothyroidism, unspecified; F17.200 Nicotine dependence, unspecified, uncomplicated; R49.0 Dysphonia; Z79.82 Long term (current) use of aspirin; Z79.4 Long term (current) use of insulin
CPT/HCPCS: 71250; 80053; 81003; 82962; 85025; 87081; 87086; 92523; 92526; 92610; 94640; 94664; 97110; 97112; 97116; 97162; 97167; 97530; 97535; J1644; J1815

== ENCOUNTER 2017-01-06 10:49 | Inpatient (IN) | payer OTHER ==
[~2017-01-06] VITALS: Ht 154.9 cm; Wt 61.5 kg
[~2017-01-06 10:49] MED LIST changes: +ACET-141 PO; +ACET1TAB40 PO; +ALBU8.5H3; +ALTACE; +AMIO200T PO; +AMO500 PO; +ASA; +ASPI-535; +GABA-526; +GABAPENTIN; +HUMALOG; +INSU100C SC; +INSU100V18; +INSU100V19; +LANTUS INSULIN; +LES40; +LESCOL; +LEVO137T3 PO; +SYN112 PO; +TRAM-40 PO; +[UNRECOGNIZED DRUG - CODE]
[2017-01-06] MEDS ORDERED: morphine 2 MG INJ IV PRN (11:30)
[2017-01-06] MEDS ORDERED: BISACODYL 10 MG SUPP PR PRN (11:30)
[2017-01-06] MEDS ORDERED: NACL 0.9% 3 ML SYG IV SCH (11:30)
[2017-01-06] MEDS ORDERED: ACETAMINOPHEN 650 MG SUPP PR PRN (11:30)
[2017-01-06] MEDS ORDERED: LACTULOSE 30ML CUP PO PRN (11:30)
[2017-01-06] MEDS ORDERED: MAGNESIUM HYDROXIDE 30ML CUP PO PRN (11:30)
[2017-01-06] MEDS ORDERED: ONDANSETRON 4 MG INJ IV PRN (11:30)
[2017-01-06] MEDS ORDERED: ACETAMINOPHEN 325 MG TAB PO PRN (11:30)
[2017-01-06] MEDS ORDERED: GUAIFENESIN 20 MG/ML 5ML CUP PO PRN (11:30)
[2017-01-06] MEDS ORDERED: GLUCOSE GEL 15 GRAM TUBE PO PRN (12:00)
[2017-01-06] MEDS ORDERED: GLUCAGON 1 MG INJ IM PRN (12:00)
[2017-01-06] MEDS: GABAPENTIN 300 MG CAP PO SCH ×2 (13:02→20:46)
[2017-01-06] MEDS: INSULIN ASPART [NOVOLOG] 3 ML PEN SC SCH ×5 (13:05→20:56)
[2017-01-06] MEDS: ALENDRONATE 70 MG TAB PO SCH (14:00)
--- NOTE | 2017-01-06 14:12 | HP ---
Date/Time of Note Date/Time of Note DATE: 01/06/17 TIME: 13:56 Assessment/Plan VTE Prophylaxis VTE Prophylaxis Intervention: heparin Assessment/Plan Assessment/Plan 1. Orthostatic hypotension. Now with improved blood pressure. -Admit as inpatient. -Hold antihypertensives for now and we will resume as tolerated. -Continue to obtain orthostatic vital signs. 2. Non-ST elevation MS with multivessel coronary artery disease on coronary angiogram. -Pending coronary artery bypass graft surgery when clinically improved -Continue cardiac recommendations: JAXON beta-enmanuel as tolerated,aspirin and Brilinta 3. Ischemic cardiomyopathy with last known ejection fraction 25%. -Continue aspirin/Brilinta/antihypertensives as tolerated. -Follow-up with cardiology recommendation. 4. COPD currently stable. CT chest noncontrast with Subpleural nodules in the left lower lobe with the largest measuring 7 mm in size. -Continue bronchodilators. -Counseled on smoking cessation. -Patient needs preoperative pulmonary function study prior to any surgical intervention for #2. 5. Status post respiratory failure and pneumonia. Resolved 6. Dysphagia/Dysphasia with possible Underlying neck mass. -Patient is tolerating pured diet. ST following. -Follow-up with MRI studies. 7. Type II diabetes mellitus. Now with more control. -Continue Accu-Cheks, ISS, 30 units Lantus at bedtime and pre-meal aspart 10 units. 8. Hypothyroidism. -On Synthroid. 8. Chronic anemia. H&H stable. Will monitor. 9. Significant deconditioning Continue with physical therapy as tolerated. DVT prophylaxis: Heparin PUD prophylaxis: Pepcid. Plan: We will continue to monitor blood pressure closely. Will follow up with cardiology recommendation on further dosing of antihypertensives. At this time , based on her rehab potential, we feel like patient would benefit from a more less aggressive physical therapy at the longterm facility once patient is medically cleared. At this time, we will continue to treat her acute medical conditions. We will also follow-up with cardiothoracic surgery regarding plan for any surgical intervention if indicated. Approximately 60 minutes was spent on this history and physical. Case discussed with Dr.Stolar FRANCIS/IRVIN Admit Date/Time Admit Date/Time Jan 06, 2017 at 10:49 Hx of Present Illness This is a very unfortunate 56-year-old female with a past medical history of severe coronary artery disease, status post MS who is being followed up by cardiology and CT surgery with the possibility of cardiac surgery, ischemic cardiomyopathy with a known ejection fraction 25%, dysphagia, neck mass, recent respiratory failure/pneumonia, pulmonary nodules, type 2 diabetes, hypothyroidism, constipation, deconditioning, toxic metabolic encephalopathy, hypertension, hypercholesterolemia, depression, neuropathy, osteoarthritis, who was recently admitted to [facility] on December 10, 2016 with NSTEMI, aspiration pneumonia and respiratory failure requiring intubation and mechanical ventilation. Patient was evaluated by multiple specialists including cardiothoracic surgery, pulmonary, ID, and cardiology service. During her hospitalization here at [facility], patient had also underwent PCI and stent placed to RCA with eventual recommendation of coronary artery bypass grafting when medically stable. Patient was continued on medical management for severe CAD. She was subsequently extubated. She was then discharged to acute rehab facility for comprehensive interdisciplinary acute rehab for functional gain/improved ambulation. However, in acute rehab, patient has been having hypotension and was unable to participate in physical therapy activities. Therefore, she is now being transferred to acute care for further evaluation and management. ROS A 12 point review of system was assessed and is negative other than what is mentioned in the HPI. PMH/Family/Social Past Medical History See HPI Past Surgical History See HPI Past Surgical Hx: other Social History History of tobacco abuse. Denied alcohol or drug use. Exam/Review of Systems Exam Exam General: Well developed,adequately built, not in any acute distress . HEENT: Normocephalic, Atraumatic, No laceration or hematoma; Eyes: PEERL, Conjunctiva clear, Anicteric sclera Neck: Supple without any lymphadenopathy, nontender, no JVD, no carotid bruits, trachea midline, no thyromegaly Cardiac: S1, S2 auscultated, regular rhythm and rate, no mumurs or gallop Pulmonary: Mild wheezing on upper lobes. Diminished breath sound bibasilar. Otherwise, normal respiratory effort. GI: Abdomen normal to inspection. Soft, non tender, non- distended, no masses, no rebound tenderness or guarding. Bowel sounds active on all four quadrants Genitourinary: Deferred Extremities: With generalized weakness. No cyanosis, clubbing, or edema. Pulses [2+] bilaterally. Full ROM on all four extremities. No focal weakness appreciated. Neurologic: Alert to person, place, time, and situation. Affect appropriate, intact sensation. Skin: Clean,dry, and intact. No ecchymosis, no rashes, or lesions Medications Medications Current Medications Ondansetron HCl (Zofran Inj) 4 mg Q6H PRN IV NAUSEA AND/OR VOMITING; Start at 11:30 Acetaminophen (Tylenol Tab) 650 mg Q6H PRN PO PAIN LEVEL 1-3 OR FEVER; Start at 11:30 Acetaminophen (Tylenol Supp) 650 mg Q6H PRN [place] PAIN LEVEL 1-3 OR FEVER; Start 01/06/17 at 11:30 Morphine Sulfate (morphine) 2 mg Q4H PRN IV SEVERE PAIN LEVEL 7-10; Start 01/06 at 11:30 Famotidine (Pepcid) 20 mg Q12 PO ; Start 01/06/17 at 21:00 Heparin Sodium (Porcine) (Heparin (5000 Units/0.5 ml)) 5,000 unit Q12 SC ; Start 01/06/17 at 21:00 Alendronate Sodium (Fosamax) 70 mg Q7D PO ; Start 01/06/17 at 14:00 Aspirin (Halfprin) 81 mg DAILY PO ; Start 01/07/17 at 09:00 Atorvastatin Calcium (Lipitor) 20 mg HS PO ; Start 01/06/17 at 21:00 Duloxetine HCl (Cymbalta) 20 mg DAILY PO ; Start 01/07/17 at 09:00 Gabapentin (Neurontin) 300 mg TID PO Last administered on 01/06/17t 13:02; Admin Dose 300 MG; Start 01/06/17 at 13:00 Insulin Glargine (Lantus) 30 unit DAILY@20 SC ; Start 01/06/17 at 20:00 Metoprolol Tartrate (Lopressor) 12.5 mg BID PO ; Start 01/06/17 at 21:00 Ticagrelor (Brilinta) 90 mg BID PO ; Start 01/06/17 at 21:00 Diagnostic Test (Pha) (Accu-Chek) 1 ea 02 XX ; Start 01/07/17 at 02:00 Diagnostic Test (Pha) (Accu-Chek) 1 ea 02 XX ; Start 01/07/17 at 02:00 Furosemide (Lasix) 20 mg DAILY PO ; Start 01/07/17 at 09:00 Bisacodyl (Dulcolax Supp) 10 mg DAILY PRN [place] CONSTIPATION; Start 01/06/17 at 11 :30 Guaifenesin (Robitussin Liquid Cup) 100 mg Q6H PRN PO COUGH; Start 01/06/17 at 11:30 Lactulose (Enulose) 20 gm DAILY PRN PO CONSTIPATION; Start 01/06/17 at 11:30 Levothyroxine Sodium (Synthroid) 112 mcg DAILY@06 PO ; Start 01/07/17 at 06:00 Lisinopril (Zestril) 2.5 mg DAILY PO ; Start 01/07/17 at 09:00 Magnesium Hydroxide (Milk Of Mag) 30 ml DAILY PRN PO CONSTIPATION; Start at 11:30 Polyethylene Glycol (Miralax) 17 gm DAILY PO ; Start 01/07/17 at 09:00 Potassium Chloride (Klor-Con 20) 40 meq DAILY PO ; Start 01/07/17 at 09:00 Senna (Senokot) 2 tab HS PO ; Start 01/06/17 at 21:00 Miscellaneous Information 1 ea NOTE XX ; Start 01/06/17 at 12:00 Glucose (Glutose) 15 gm Q15M PRN PO DECREASED GLUCOSE; Start 01/06/17 at 12:00 Glucose (Glutose) 22.5 gm Q15M PRN PO DECREASED GLUCOSE; Start 01/06/17 at 12: 00 Dextrose (D50w Syringe) 25 ml Q15M PRN IV DECREASED GLUCOSE; Start 01/06/17 at 12:00 Dextrose (D50w Syringe) 50 ml Q15M PRN IV DECREASED GLUCOSE; Start 01/06/17 at 12:00 Glucagon (Glucagen) 1 mg Q15M PRN IM DECREASED GLUCOSE; Start 01/06/17 at 12:00 Glucose (Glutose) 15 gm Q15M PRN BUCCAL DECREASED GLUCOSE; Start 01/06/17 at 12 :00 TAD HIGGINS NP Jan 06, 2017 14:10
[2017-01-06 15:10] VITALS: BP 110/54; RESP 21
[2017-01-06] MEDS: ALBUTEROL/IPRATROPIUM (NEB) 3 ML AMP HHN SCH ×2 (15:24→19:29)
--- NOTE | 2017-01-06 16:27 | CONS ---
Date/Time of Note Date/Time of Note DATE: 01/06/17 TIME: 16:20 Assessment/Plan Assessment/Plan Chief Complaint/Hosp Course IMP: 1.NSTEMI-peak trop>60 Now dowtrended significantly s/p LHC with patent RCA stents and high grade disease of LAD/LCX with small caliber vessels and recc for CABG. Still ongoing surgical eval and question date of possible surgery? 2.cardiomyopathy-LVEF 40-45 BY OSH echo. 25% by echo read here 3.Hypotension-orthostatics today with transfer to med-surg-? overdiuresis 4.resp failure s/p extubation requiring PRN BIPAP which has now improved and not requiring further at this time 5.anemia 6. AMS/encephalopathy 7. PNA-ongoing by chest CT 8. COPD 9. Hypothyroid 10.DM-labile BS 11.Neck mass? with dysphagia Recc: -Now transferred to med-surg -Hold BB/lasix and follow BP -Continue asa/brilinta -Continue statin -Follow volume status closely and continue will resume low dose lasix -Smoking cessation -Follow BS closely and adjust insulin therapy as necessary -Continue abx's and f/u cx data -Continue bronchodilators -CT surgical eval ongoing and have discussed with daughter/patient who are agreeable and CT surgery following with pnding date of surgery? Per CT surgery possible early next week-will contact again as do not see any recent notes in chart about timimg of surgery Problems: Consultation Date/Type/Reason Admit Date/Time Jan 06, 2017 at 10:49 Initial Consult Date 01/06/2017 Type of Consultation: cardiology Reason for Consultation Nstemi Referring Provider: TAD HIGGINS NP Exam/Review of Systems Vital Signs Vitals Vital Signs Date Time Temp Pulse Resp B/P Pulse Ox O2 Delivery O2 Flow Rate FiO2 01/06/17 15:25 94 18 95 21 01/06/17 15:10 98.7 110/54 Exam Review of Systems: CONSTITUTIONAL: No fevers, chills. PULMONARY: No sob CARDIOVASCULAR: No chest pain/palpitations GASTROINTESTINAL: No nausea/vomiting. GENITOURINARY: No hematuria/dysuria. MUSCULOSKELETAL: No myagias/arthalgias. PSYCHIATRIC: The patient denies depression. NEUROLOGIC: generalized weakness Constitutional: alert Psych: no complaints Head: normocephalic ENMT: mucosa pink and moist Neck: jvd (8 cm water), supple Respiratory: diminished breath sounds (at bases/B) Cardiovascular: regular rate and rhythm Gastrointestinal: non-tender, soft Musculoskeletal: muscle weakness (generalized) Extremities: edema (none) 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: other (No focal deficits) Medications Medications Current Medications Ondansetron HCl (Zofran Inj) 4 mg Q6H PRN IV NAUSEA AND/OR VOMITING; Start at 11:30 Acetaminophen (Tylenol Tab) 650 mg Q6H PRN PO PAIN LEVEL 1-3 OR FEVER; Start at 11:30 Acetaminophen (Tylenol Supp) 650 mg Q6H PRN [place] PAIN LEVEL 1-3 OR FEVER; Start 01/06/17 at 11:30 Morphine Sulfate (morphine) 2 mg Q4H PRN IV SEVERE PAIN LEVEL 7-10; Start 01/06 at 11:30 Famotidine (Pepcid) 20 mg Q12 PO ; Start 01/06/17 at 21:00 Heparin Sodium (Porcine) (Heparin (5000 Units/0.5 ml)) 5,000 unit Q12 SC ; Start 01/06/17 at 21:00 Alendronate Sodium (Fosamax) 70 mg Q7D PO ; Start 01/06/17 at 14:00 Aspirin (Halfprin) 81 mg DAILY PO ; Start 01/07/17 at 09:00 Atorvastatin Calcium (Lipitor) 20 mg HS PO ; Start 01/06/17 at 21:00 Duloxetine HCl (Cymbalta) 20 mg DAILY PO ; Start 01/07/17 at 09:00 Gabapentin (Neurontin) 300 mg TID PO Last administered on 01/06/17t 13:02; Admin Dose 300 MG; Start 01/06/17 at 13:00 Insulin Glargine (Lantus) 30 unit DAILY@20 SC ; Start 01/06/17 at 20:00 Metoprolol Tartrate (Lopressor) 12.5 mg BID PO ; Start 01/06/17 at 21:00 Ticagrelor (Brilinta) 90 mg BID PO ; Start 01/06/17 at 21:00 Diagnostic Test (Pha) (Accu-Chek) 1 ea 02 XX ; Start 01/07/17 at 02:00 Diagnostic Test (Pha) (Accu-Chek) 1 ea 02 XX ; Start 01/07/17 at 02:00 Furosemide (Lasix) 20 mg DAILY PO ; Start 01/07/17 at 09:00 Bisacodyl (Dulcolax Supp) 10 mg DAILY PRN [place] CONSTIPATION; Start 01/06/17 at 11 :30 Guaifenesin (Robitussin Liquid Cup) 100 mg Q6H PRN PO COUGH; Start 01/06/17 at 11:30 Lactulose (Enulose) 20 gm DAILY PRN PO CONSTIPATION; Start 01/06/17 at 11:30 Levothyroxine Sodium (Synthroid) 112 mcg DAILY@06 PO ; Start 01/07/17 at 06:00 Lisinopril (Zestril) 2.5 mg DAILY PO ; Start 01/07/17 at 09:00 Magnesium Hydroxide (Milk Of Mag) 30 ml DAILY PRN PO CONSTIPATION; Start at 11:30 Polyethylene Glycol (Miralax) 17 gm DAILY PO ; Start 01/07/17 at 09:00 Potassium Chloride (Klor-Con 20) 40 meq DAILY PO ; Start 01/07/17 at 09:00 Senna (Senokot) 2 tab HS PO ; Start 01/06/17 at 21:00 Miscellaneous Information 1 ea NOTE XX ; Start 01/06/17 at 12:00 Glucose (Glutose) 15 gm Q15M PRN PO DECREASED GLUCOSE; Start 01/06/17 at 12:00 Glucose (Glutose) 22.5 gm Q15M PRN PO DECREASED GLUCOSE; Start 01/06/17 at 12: 00 Dextrose (D50w Syringe) 25 ml Q15M PRN IV DECREASED GLUCOSE; Start 01/06/17 at 12:00 Dextrose (D50w Syringe) 50 ml Q15M PRN IV DECREASED GLUCOSE; Start 01/06/17 at 12:00 Glucagon (Glucagen) 1 mg Q15M PRN IM DECREASED GLUCOSE; Start 01/06/17 at 12:00 Glucose (Glutose) 15 gm Q15M PRN BUCCAL DECREASED GLUCOSE; Start 01/06/17 at 12 :00 RHONDA PENA Jan 06, 2017 16:27
[2017-01-06 16:29] VITALS: Ht 154.9 cm; Wt 61.5 kg
[2017-01-06 16:39] VITALS: BP 107/55; PULSE 91; RESP 19
[2017-01-06 20:00] VITALS: BP 111/56; RESP 19
--- NOTE | 2017-01-06 20:00 | EN ---
Date/Time of Note Date/Time of Note DATE: 01/06/17 TIME: 19:59 Event Note Surgery Surgery Event Note Pt with CAD SP NSTEMI, recovering Plan for CABG on Thursday will discuss with The family CHELA ALVARENGA MD Jan 06, 2017 20:00
[2017-01-06 20:02] VITALS: BP 114/57
[2017-01-06 20:04] VITALS: BP 84/48
[2017-01-06] MEDS: FAMOTIDINE 20 MG TAB PO SCH (20:46)
[2017-01-06] MEDS: ATORVASTATIN 20 MG TAB PO SCH (20:46)
[2017-01-06] MEDS: SENNA TAB PO SCH (20:46)
[2017-01-06] MEDS: HEPARIN 5,000 UNIT/0.5 ML VIAL SC SCH (20:51)
[2017-01-06] MEDS: TICAGRELOR 90 MG TABLET PO SCH (20:51)
[2017-01-06] MEDS: INSULIN GLARGINE [LANtus] 3 ML PEN SC SCH (20:52)
[2017-01-06] MEDS ORDERED: METOPROLOL 25 MG TAB PO SCH (21:00)
[2017-01-07 02:00] VITALS: BP 123/60; RESP 18
[2017-01-07] MEDS: ACCU-CHEK XX SCH ×2 (02:00)
[2017-01-07 02:02] VITALS: BP 123/59
[2017-01-07 02:04] VITALS: BP 90/42
[2017-01-07 05:39] LABS: BASOPHIL # 0.1 10^3/ul (0.0-0.1); BASOPHILS % 1.2 % (0.0-2.0); EOSINOPHILS # 0.7 10^3/ul (0.0-0.5); EOSINOPHILS % 8.1 % (0.0-7.0); HEMATOCRIT 32.8 % (37.0-47.0); HEMOGLOBIN 10.6 g/dl (12.0-16.0); LYMPHOCYTES # 1.4 10^3/ul (0.8-2.9); LYMPHOCYTES % 17.4 % (15.0-51.0); MEAN CORPUSCULAR HEMOGLOBIN 30.6 pg (29.0-33.0); MEAN CORPUSCULAR HGB CONC 32.3 g/dl (32.0-37.0); MEAN CORPUSCULAR VOLUME 94.8 fl (82.0-101.0); MEAN PLATELET VOLUME 9.6 fl (7.4-10.4); MONOCYTE # 0.8 10^3/ul (0.3-0.9); MONOCYTES % 9.8 % (0.0-11.0); NEUTROPHIL # 5.1 10^3/ul (1.6-7.5); NEUTROPHILS % 62.9 % (39.0-77.0); PLATELET COUNT 356 10^3/UL (140-415); RED BLOOD COUNT 3.46 10^6/ul (4.20-5.40); RED CELL DISTRIBUTION WIDTH 16.4 % (11.5-14.5); WHITE BLOOD COUNT 8.1 10^3/ul (4.8-10.8)
[2017-01-07 06:17] LABS: ALBUMIN 3.3 g/dl (3.3-4.9); ALBUMIN/GLOBULIN RATIO 1.06; BILIRUBIN,INDIRECT 0.6 mg/dl (0-1.1); BILIRUBIN,TOTAL 0.6 mg/dl (0.2-1.3); CALCIUM 9.1 mg/dl (8.4-10.2); CREATININE 0.49 mg/dl (0.44-1.00); MAGNESIUM 1.7 mg/dl (1.7-2.5); PHOSPHORUS 4.1 mg/dl (2.5-4.9); POTASSIUM 4.4 mmol/L (3.5-5.1); TOTAL PROTEIN 6.4 g/dl (6.1-8.1)
[2017-01-07] MEDS: LEVOTHYROXINE 112 MCG TAB PO SCH (06:38)
[2017-01-07] MEDS: ALBUTEROL/IPRATROPIUM (NEB) 3 ML AMP HHN SCH ×3 (07:30→20:50)
[2017-01-07 08:00] VITALS: BP 115/56; RESP 20
[2017-01-07] MEDS: INSULIN ASPART [NOVOLOG] 3 ML PEN SC SCH ×7 (08:19→20:28)
[2017-01-07] MEDS: DULOXETINE 20 MG CAP DR PO SCH (08:24)
[2017-01-07] MEDS: POTASSIUM CHLORIDE (SR) 20 MEQ TAB PO SCH (08:24)
[2017-01-07] MEDS: GABAPENTIN 300 MG CAP PO SCH ×3 (08:24→20:19)
[2017-01-07] MEDS: POLYETHYLENE GLYCOL 17 GM PACKET PO SCH (08:24)
[2017-01-07] MEDS: ASPIRIN (EC) 81 MG TAB PO SCH (08:25)
[2017-01-07] MEDS: FAMOTIDINE 20 MG TAB PO SCH ×2 (08:25→20:19)
[2017-01-07] MEDS: LISINOPRIL 5 MG TAB PO SCH (08:26)
[2017-01-07] MEDS: TICAGRELOR 90 MG TABLET PO SCH ×2 (08:28→20:22)
[2017-01-07] MEDS: HEPARIN 5,000 UNIT/0.5 ML VIAL SC SCH ×2 (08:29→20:22)
[2017-01-07] MEDS ORDERED: FUROSEMIDE 20 MG TAB PO SCH (09:00)
--- NOTE | 2017-01-07 13:18 | PN ---
Date/Time of Note Date/Time of Note DATE: 01/07/17 TIME: 13:18 Assessment/Plan VTE Prophylaxis VTE Prophylaxis Intervention: heparin Lines/Catheters Urinary Cath still in place: No Assessment/Plan Chief Complaint/Hosp Course 1. Orthostatic hypotension. Resolved. -BB/Lasix on hold. 2. Non-ST elevation [place] with multivessel coronary artery disease on coronary angiogram. -Tentative plan for coronary artery bypass graft surgery on Thursday. -Continue cardiac recommendations: JAXON beta-enmanuel as tolerated,aspirin and Brilinta 3. Ischemic cardiomyopathy with last known ejection fraction 25%. -Continue aspirin/Brilinta/antihypertensives as tolerated. -Follow-up with cardiology recommendation. 4. COPD currently stable. CT chest noncontrast with Subpleural nodules in the left lower lobe with the largest measuring 7 mm in size. -Continue bronchodilators. -Counseled on smoking cessation. -Pulmonary function study prior to any surgical intervention for #2. 5. Status post respiratory failure and pneumonia. Resolved 6. Dysphagia/Dysphasia with possible Underlying neck mass. -Patient is tolerating pured diet. ST following. -Follow-up with MRI studies. 7. Type II diabetes mellitus. Now with more control. -Continue Accu-Cheks, ISS, 30 units Lantus at bedtime and pre-meal aspart 10 units. 8. Hypothyroidism. -On Synthroid. 8. Chronic anemia. H&H stable. Will monitor. 9. Significant deconditioning Continue with physical therapy as tolerated. DVT prophylaxis: Heparin PUD prophylaxis: Pepcid. Plan: As per CT surgery, plan for CABG on this Thursday. We will continue to monitor blood pressure closely. Will follow up with cardiology recommendation on further dosing of antihypertensives. Disposition: At this time, based on her rehab potential, we feel like patient would benefit from a more less aggressive physical therapy at the alf facility once patient is medically cleared. However, patient currently refuses to go to alf facility and wanted to go home with home health upon discharge. This will be addressed with physical therapy team and case management. Case discussed with Problems: Subjective 24 Hr Interval Summary Free Text/Dictation Lying in bed comfortably. Denies any distress. No overnight episodes. Exam/Review of Systems Vital Signs Vitals Vital Signs Date Time Temp Pulse Resp B/P Pulse Ox O2 Delivery O2 Flow Rate FiO2 01/07/17 08:00 99.1 100 20 115/56 93 01/07/17 07:30 21 01/06/17 16:39 Room Air Intake and Output 01/06/17 01/06/17 01/07/17 15:00 23:00 07:00 Intake Total 360 ml 220 ml Balance 360 ml 220 ml Exam General: Well developed,adequately built, not in any acute distress . HEENT: Normocephalic, Atraumatic, No laceration or hematoma; Eyes: PEERL, Conjunctiva clear, Anicteric sclera Neck: Supple without any lymphadenopathy, nontender, no JVD, no carotid bruits, trachea midline, no thyromegaly Cardiac: S1, S2 auscultated, regular rhythm and rate, no mumurs or gallop Pulmonary: Mild wheezing on upper lobes. Diminished breath sound bibasilar. Otherwise, normal respiratory effort. GI: Abdomen normal to inspection. Soft, non tender, non- distended, no masses, no rebound tenderness or guarding. Bowel sounds active on all four quadrants Genitourinary: Deferred Extremities: With generalized weakness. No cyanosis, clubbing, or edema. Pulses [2+] bilaterally. Full ROM on all four extremities. No focal weakness appreciated. Neurologic: Alert to person, place, time, and situation. Affect appropriate, intact sensation. Skin: Clean,dry, and intact. No ecchymosis, no rashes, or lesions Results Result Diagram: 01/07/17 0501 01/07/17 0501 Results 24 hrs Laboratory Tests Test 01/06/17 17:58 01/06/17 20:45 01/07/17 02:13 01/07/17 05:01 Bedside Glucose 73 269 H 269 H White Blood Count 8.1 Red Blood Count 3.46 L Hemoglobin 10.6 L Hematocrit 32.8 L Mean Corpuscular Volume 94.8 Mean Corpuscular Hemoglobin 30.6 Mean Corpuscular Hemoglobin Concent 32.3 Red Cell Distribution Width 16.4 H Platelet Count 356 Mean Platelet Volume 9.6 Neutrophils % 62.9 Lymphocytes % 17.4 Monocytes % 9.8 Eosinophils % 8.1 H Basophils % 1.2 Nucleated Red Blood Cells % 0.0 Neutrophils # 5.1 Lymphocytes # 1.4 Monocytes # 0.8 Eosinophils # 0.7 H Basophils # 0.1 Nucleated Red Blood Cells # 0.0 Sodium Level 138 Potassium Level 4.4 Chloride Level 97 Carbon Dioxide Level 31 Anion Gap 14 Blood Urea Nitrogen 8 Creatinine 0.49 Glucose Level 291 H Calcium Level 9.1 Phosphorus Level 4.1 Magnesium Level 1.7 Total Bilirubin 0.6 Direct Bilirubin 0.00 Indirect Bilirubin 0.6 Aspartate Amino Transf (AST/SGOT) 18 Alanine Aminotransferase (ALT/SGPT) 35 Alkaline Phosphatase 101 Total Protein 6.4 Albumin 3.3 Globulin 3.10 Albumin/Globulin Ratio 1.06 Test 01/07/17 07:50 01/07/17 11:42 Bedside Glucose 300 H 155 Medications Medications Current Medications Ondansetron HCl (Zofran Inj) 4 mg Q6H PRN IV NAUSEA AND/OR VOMITING; Start at 11:30 Acetaminophen (Tylenol Tab) 650 mg Q6H PRN PO PAIN LEVEL 1-3 OR FEVER; Start at 11:30 Acetaminophen (Tylenol Supp) 650 mg Q6H PRN [place] PAIN LEVEL 1-3 OR FEVER; Start 01/06/17 at 11:30 Morphine Sulfate (morphine) 2 mg Q4H PRN IV SEVERE PAIN LEVEL 7-10; Start 01/06 at 11:30 Famotidine (Pepcid) 20 mg Q12 PO Last administered on 01/07/17 08:25; Admin Dose 20 MG; Start 01/06/17 at 21:00 Heparin Sodium (Porcine) (Heparin (5000 Units/0.5 ml)) 5,000 unit Q12 SC Last administered on 01/07/17 08:29; Admin Dose 5,000 UNIT; Start 01/06/17 at 21:00 Alendronate Sodium (Fosamax) 70 mg Q7D PO Last administered on 01/06/17 14:00 ; Admin Dose 70 MG; Start 01/06/17 at 14:00 Aspirin (Halfprin) 81 mg DAILY PO Last administered on 01/07/17 08:25; Admin Dose 81 MG; Start 01/07/17 at 09:00 Atorvastatin Calcium (Lipitor) 20 mg HS PO Last administered on 01/06/17 20:46 ; Admin Dose 20 MG; Start 01/06/17 at 21:00 Duloxetine HCl (Cymbalta) 20 mg DAILY PO Last administered on 01/07/17 08:24; Admin Dose 20 MG; Start 01/07/17 at 09:00 Gabapentin (Neurontin) 300 mg TID PO Last administered on 01/07/17 12:00; Admin Dose 300 MG; Start 01/06/17 at 13:00 Insulin Glargine (Lantus) 30 unit DAILY@20 SC Last administered on 01/06/17 20 :52; Admin Dose 30 UNIT; Start 01/06/17 at 20:00 Metoprolol Tartrate (Lopressor) 12.5 mg BID PO ; Start 01/06/17 at 21:00; Status Future Hold Ticagrelor (Brilinta) 90 mg BID PO Last administered on 01/07/17 08:28; Admin Dose 90 MG; Start 01/06/17 at 21:00 Diagnostic Test (Pha) (Accu-Chek) 1 ea 02 XX ; Start 01/07/17 at 02:00 Diagnostic Test (Pha) (Accu-Chek) 1 ea 02 XX ; Start 01/07/17 at 02:00 Furosemide (Lasix) 20 mg DAILY PO ; Start 01/07/17 at 09:00; Status Future Hold Bisacodyl (Dulcolax Supp) 10 mg DAILY PRN [place] CONSTIPATION; Start 01/06/17 at 11 :30 Guaifenesin (Robitussin Liquid Cup) 100 mg Q6H PRN PO COUGH; Start 01/06/17 at 11:30 Lactulose (Enulose) 20 gm DAILY PRN PO CONSTIPATION; Start 01/06/17 at 11:30 Levothyroxine Sodium (Synthroid) 112 mcg DAILY@06 PO Last administered on 06:38; Admin Dose 112 MCG; Start 01/07/17 at 06:00 Lisinopril (Zestril) 2.5 mg DAILY PO ; Start 01/07/17 at 09:00 Magnesium Hydroxide (Milk Of Mag) 30 ml DAILY PRN PO CONSTIPATION; Start at 11:30 Polyethylene Glycol (Miralax) 17 gm DAILY PO Last administered on 01/07/17 08: 24; Admin Dose 17 GM; Start 01/07/17 at 09:00 Potassium Chloride (Klor-Con 20) 40 meq DAILY PO Last administered on 08:24; Admin Dose 40 MEQ; Start 01/07/17 at 09:00 Senna (Senokot) 2 tab HS PO Last administered on 01/06/17t 20:46; Admin Dose 2 TAB; Start 01/06/17 at 21:00 Miscellaneous Information 1 ea NOTE XX ; Start 01/06/17 at 12:00 Glucose (Glutose) 15 gm Q15M PRN PO DECREASED GLUCOSE; Start 01/06/17 at 12:00 Glucose (Glutose) 22.5 gm Q15M PRN PO DECREASED GLUCOSE; Start 01/06/17 at 12: 00 Dextrose (D50w Syringe) 25 ml Q15M PRN IV DECREASED GLUCOSE; Start 01/06/17 at 12:00 Dextrose (D50w Syringe) 50 ml Q15M PRN IV DECREASED GLUCOSE; Start 01/06/17 at 12:00 Glucagon (Glucagen) 1 mg Q15M PRN IM DECREASED GLUCOSE; Start 01/06/17 at 12:00 Glucose (Glutose) 15 gm Q15M PRN BUCCAL DECREASED GLUCOSE; Start 01/06/17 at 12 :00 TAD HIGGINS NP Jan 07, 2017 13:18
[2017-01-07 14:00] VITALS: BP 104/51; RESP 18
--- NOTE | 2017-01-07 15:53 | CONS ---
Date/Time of Note Date/Time of Note DATE: 01/07/17 TIME: 15:51 Assessment/Plan Assessment/Plan Chief Complaint/Hosp Course IMP: 1.NSTEMI-peak trop>60 Now dowtrended significantly s/p LHC with patent RCA stents and high grade disease of LAD/LCX with small caliber vessels and recc for CABG. Still ongoing surgical eval and question date of possible surgery? 2.cardiomyopathy-LVEF 40-45 BY OSH echo. 25% by echo read here 3.Hypotension-orthostatics today with transfer to med-surg-? overdiuresis- currently improved 4.resp failure s/p extubation requiring PRN BIPAP which has now improved and not requiring further at this time 5.anemia 6. AMS/encephalopathy 7. PNA-ongoing by chest CT 8. COPD 9. Hypothyroid 10.DM-labile BS 11.Neck mass? with dysphagia Recc: -Now transferred to med-surg -Hold BB/lasix and follow BP -Continue to hold asa/brilinta -Continue statin -Smoking cessation -Follow BS closely and adjust insulin therapy as necessary -Continue abx's and f/u cx data -Continue bronchodilators -CT surgical eval ongoing and have discussed with daughter/patient who are agreeable and CT surgery following with surgery tenatively scheduled for this thursday Problems: Consultation Date/Type/Reason Admit Date/Time Jan 06, 2017 at 10:49 Initial Consult Date 01/06/2017 Type of Consultation: cardiology Reason for Consultation Nstemi Referring Provider: TAD HIGGINS NP Exam/Review of Systems Vital Signs Vitals Vital Signs Date Time Temp Pulse Resp B/P Pulse Ox O2 Delivery O2 Flow Rate FiO2 01/07/17 15:06 95 20 96 21 01/07/17 14:00 98.3 104/51 01/06/17 16:39 Room Air Intake and Output 01/06/17 01/06/17 01/07/17 15:00 23:00 07:00 Intake Total 360 ml 220 ml Balance 360 ml 220 ml Exam Review of Systems: CONSTITUTIONAL: No fevers, chills. PULMONARY: No sob CARDIOVASCULAR: No chest pain/palpitations GASTROINTESTINAL: No nausea/vomiting. GENITOURINARY: No hematuria/dysuria. MUSCULOSKELETAL: No myagias/arthalgias. PSYCHIATRIC: The patient denies depression. NEUROLOGIC: No weakness Constitutional: alert Psych: no complaints ENMT: mucosa pink and moist Neck: jvd, supple Respiratory: diminished breath sounds (at bases/B) Cardiovascular: regular rate and rhythm Gastrointestinal: non-tender, soft Musculoskeletal: muscle tone (normal) Extremities: edema (none) 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: other (No focal deficits) Results Result Diagram: 01/07/17 0501 01/07/17 0501 Results 24 hrs Laboratory Tests Test 01/06/17 17:58 01/06/17 20:45 01/07/17 02:13 01/07/17 05:01 Bedside Glucose 73 269 H 269 H White Blood Count 8.1 Red Blood Count 3.46 L Hemoglobin 10.6 L Hematocrit 32.8 L Mean Corpuscular Volume 94.8 Mean Corpuscular Hemoglobin 30.6 Mean Corpuscular Hemoglobin Concent 32.3 Red Cell Distribution Width 16.4 H Platelet Count 356 Mean Platelet Volume 9.6 Neutrophils % 62.9 Lymphocytes % 17.4 Monocytes % 9.8 Eosinophils % 8.1 H Basophils % 1.2 Nucleated Red Blood Cells % 0.0 Neutrophils # 5.1 Lymphocytes # 1.4 Monocytes # 0.8 Eosinophils # 0.7 H Basophils # 0.1 Nucleated Red Blood Cells # 0.0 Sodium Level 138 Potassium Level 4.4 Chloride Level 97 Carbon Dioxide Level 31 Anion Gap 14 Blood Urea Nitrogen 8 Creatinine 0.49 Glucose Level 291 H Calcium Level 9.1 Phosphorus Level 4.1 Magnesium Level 1.7 Total Bilirubin 0.6 Direct Bilirubin 0.00 Indirect Bilirubin 0.6 Aspartate Amino Transf (AST/SGOT) 18 Alanine Aminotransferase (ALT/SGPT) 35 Alkaline Phosphatase 101 Total Protein 6.4 Albumin 3.3 Globulin 3.10 Albumin/Globulin Ratio 1.06 Test 01/07/17 07:50 01/07/17 11:42 Bedside Glucose 300 H 155 Medications Medications Current Medications Ondansetron HCl (Zofran Inj) 4 mg Q6H PRN IV NAUSEA AND/OR VOMITING; Start at 11:30 Acetaminophen (Tylenol Tab) 650 mg Q6H PRN PO PAIN LEVEL 1-3 OR FEVER; Start at 11:30 Acetaminophen (Tylenol Supp) 650 mg Q6H PRN [place] PAIN LEVEL 1-3 OR FEVER; Start 01/06/17 at 11:30 Morphine Sulfate (morphine) 2 mg Q4H PRN IV SEVERE PAIN LEVEL 7-10; Start 01/06 at 11:30 Famotidine (Pepcid) 20 mg Q12 PO Last administered on 01/07/17 08:25; Admin Dose 20 MG; Start 01/06/17 at 21:00 Heparin Sodium (Porcine) (Heparin (5000 Units/0.5 ml)) 5,000 unit Q12 SC Last administered on 01/07/17 08:29; Admin Dose 5,000 UNIT; Start 01/06/17 at 21:00 Alendronate Sodium (Fosamax) 70 mg Q7D PO Last administered on 01/06/17 14:00 ; Admin Dose 70 MG; Start 01/06/17 at 14:00 Aspirin (Halfprin) 81 mg DAILY PO Last administered on 01/07/17 08:25; Admin Dose 81 MG; Start 01/07/17 at 09:00 Atorvastatin Calcium (Lipitor) 20 mg HS PO Last administered on 01/06/17 20:46 ; Admin Dose 20 MG; Start 01/06/17 at 21:00 Duloxetine HCl (Cymbalta) 20 mg DAILY PO Last administered on 01/07/17 08:24; Admin Dose 20 MG; Start 01/07/17 at 09:00 Gabapentin (Neurontin) 300 mg TID PO Last administered on 01/07/17 12:00; Admin Dose 300 MG; Start 01/06/17 at 13:00 Insulin Glargine (Lantus) 30 unit DAILY@20 SC Last administered on 01/06/17 20 :52; Admin Dose 30 UNIT; Start 01/06/17 at 20:00 Metoprolol Tartrate (Lopressor) 12.5 mg BID PO ; Start 01/06/17 at 21:00; Status Future Hold Ticagrelor (Brilinta) 90 mg BID PO Last administered on 01/07/17 08:28; Admin Dose 90 MG; Start 01/06/17 at 21:00 Diagnostic Test (Pha) (Accu-Chek) 1 ea 02 XX ; Start 01/07/17 at 02:00 Diagnostic Test (Pha) (Accu-Chek) 1 ea 02 XX ; Start 01/07/17 at 02:00 Furosemide (Lasix) 20 mg DAILY PO ; Start 01/07/17 at 09:00; Status Future Hold Bisacodyl (Dulcolax Supp) 10 mg DAILY PRN [place] CONSTIPATION; Start 01/06/17 at 11 :30 Guaifenesin (Robitussin Liquid Cup) 100 mg Q6H PRN PO COUGH; Start 01/06/17 at 11:30 Lactulose (Enulose) 20 gm DAILY PRN PO CONSTIPATION; Start 01/06/17 at 11:30 Levothyroxine Sodium (Synthroid) 112 mcg DAILY@06 PO Last administered on 06:38; Admin Dose 112 MCG; Start 01/07/17 at 06:00 Lisinopril (Zestril) 2.5 mg DAILY PO ; Start 01/07/17 at 09:00 Magnesium Hydroxide (Milk Of Mag) 30 ml DAILY PRN PO CONSTIPATION; Start at 11:30 Polyethylene Glycol (Miralax) 17 gm DAILY PO Last administered on 01/07/17 08: 24; Admin Dose 17 GM; Start 01/07/17 at 09:00 Potassium Chloride (Klor-Con 20) 40 meq DAILY PO Last administered on 08:24; Admin Dose 40 MEQ; Start 01/07/17 at 09:00 Senna (Senokot) 2 tab HS PO Last administered on 01/06/17 20:46; Admin Dose 2 TAB; Start 01/06/17 at 21:00 Miscellaneous Information 1 ea NOTE XX ; Start 01/06/17 at 12:00 Glucose (Glutose) 15 gm Q15M PRN PO DECREASED GLUCOSE; Start 01/06/17 at 12:00 Glucose (Glutose) 22.5 gm Q15M PRN PO DECREASED GLUCOSE; Start 01/06/17 at 12: 00 Dextrose (D50w Syringe) 25 ml Q15M PRN IV DECREASED GLUCOSE; Start 01/06/17 at 12:00 Dextrose (D50w Syringe) 50 ml Q15M PRN IV DECREASED GLUCOSE; Start 01/06/17 at 12:00 Glucagon (Glucagen) 1 mg Q15M PRN IM DECREASED GLUCOSE; Start 01/06/17 at 12:00 Glucose (Glutose) 15 gm Q15M PRN BUCCAL DECREASED GLUCOSE; Start 01/06/17 at 12 :00 RHONDA PENA Jan 07, 2017 15:53
[2017-01-07 19:59] VITALS: BP 99/47; RESP 18
[2017-01-07] MEDS: SENNA TAB PO SCH (20:19)
[2017-01-07] MEDS: ATORVASTATIN 20 MG TAB PO SCH (20:19)
[2017-01-07] MEDS: INSULIN GLARGINE [LANtus] 3 ML PEN SC SCH (20:21)
[2017-01-08] MEDS: ACCU-CHEK XX SCH ×2 (01:11)
[2017-01-08 02:19] VITALS: BP 116/56; RESP 17
[2017-01-08] MEDS: LEVOTHYROXINE 112 MCG TAB PO SCH (06:33)
[2017-01-08] MEDS: INSULIN ASPART [NOVOLOG] 3 ML PEN SC SCH ×7 (07:54→21:00)
[2017-01-08 08:00] VITALS: BP 109/51; RESP 18
[2017-01-08] MEDS: ALBUTEROL/IPRATROPIUM (NEB) 3 ML AMP HHN SCH ×4 (08:00→20:15)
[2017-01-08] MEDS: POTASSIUM CHLORIDE (SR) 20 MEQ TAB PO SCH (08:18)
[2017-01-08] MEDS: ASPIRIN (EC) 81 MG TAB PO SCH (08:18)
[2017-01-08] MEDS: GABAPENTIN 300 MG CAP PO SCH ×3 (08:19→21:31)
[2017-01-08] MEDS: TICAGRELOR 90 MG TABLET PO SCH ×2 (08:21→21:31)
[2017-01-08] MEDS: LISINOPRIL 5 MG TAB PO SCH (08:23)
[2017-01-08] MEDS: DULOXETINE 20 MG CAP DR PO SCH (08:23)
[2017-01-08] MEDS: FAMOTIDINE 20 MG TAB PO SCH ×2 (08:23→21:31)
[2017-01-08] MEDS: POLYETHYLENE GLYCOL 17 GM PACKET PO SCH (08:24)
[2017-01-08] MEDS: HEPARIN 5,000 UNIT/0.5 ML VIAL SC SCH ×3 (08:24→21:45)
--- NOTE | 2017-01-08 09:58 | CONS ---
Date/Time of Note Date/Time of Note DATE: 01/08/17 TIME: 09:56 Assessment/Plan Assessment/Plan Chief Complaint/Hosp Course IMP: 1.NSTEMI-peak trop>60 Now dowtrended significantly s/p LHC with patent RCA stents and high grade disease of LAD/LCX with small caliber vessels and recc for CABG. Still ongoing surgical eval and question date of possible surgery? 2.cardiomyopathy-LVEF 40-45 BY OSH echo. 25% by echo read here 3.Hypotension-orthostatics today with transfer to med-surg-? overdiuresis- currently improved 4.resp failure s/p extubation requiring PRN BIPAP which has now improved and not requiring further at this time 5.anemia 6. AMS/encephalopathy 7. PNA-ongoing by chest CT 8. COPD 9. Hypothyroid 10.DM-labile BS 11.Neck mass? with dysphagia Recc: -Now transferred to med-surg -Hold BB/lasix and follow BP -Continue to hold asa/brilinta -Continue statin -Smoking cessation -Follow BS closely and adjust insulin therapy as necessary -Continue abx's and f/u cx data -Continue bronchodilators -CT surgical eval ongoing and have discussed with daughter/patient who are agreeable and CT surgery following with surgery tenatively scheduled for this thursday Problems: Consultation Date/Type/Reason Admit Date/Time Jan 06, 2017 at 10:49 Initial Consult Date 01/06/2017 Type of Consultation: cardiology Reason for Consultation nstemi Referring Provider: TAD HIGGINS NP Exam/Review of Systems Vital Signs Vitals Vital Signs Date Time Temp Pulse Resp B/P Pulse Ox O2 Delivery O2 Flow Rate FiO2 01/08/17 02:19 98.1 91 17 116/56 96 01/07/17 20:50 21 01/06/17 16:39 Room Air Intake and Output 01/07/17 01/07/17 01/08/17 15:00 23:00 07:00 Intake Total 960 ml 100 ml Output Total 3 ml Balance 957 ml 100 ml Exam Review of Systems: CONSTITUTIONAL: No fevers, chills. PULMONARY: mild sob CARDIOVASCULAR: No chest pain/palpitations GASTROINTESTINAL: No nausea/vomiting. GENITOURINARY: No hematuria/dysuria. MUSCULOSKELETAL: No myagias/arthalgias. PSYCHIATRIC: The patient denies depression. NEUROLOGIC: No weakness Constitutional: alert Psych: no complaints Head: normocephalic Neck: jvd (9 cm water), supple Respiratory: diminished breath sounds (at bases/B) Cardiovascular: regular rate and rhythm Gastrointestinal: non-tender, soft Musculoskeletal: muscle tone (normal) Extremities: edema (none) 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: other (No focal deficits) Results Result Diagram: 01/07/17 0501 01/07/17 0501 Results 24 hrs Laboratory Tests Test 01/07/17 11:42 01/07/17 17:31 01/07/17 20:18 01/08/17 07:47 Bedside Glucose 155 191 180 89 Medications Medications Current Medications Ondansetron HCl (Zofran Inj) 4 mg Q6H PRN IV NAUSEA AND/OR VOMITING; Start at 11:30 Acetaminophen (Tylenol Tab) 650 mg Q6H PRN PO PAIN LEVEL 1-3 OR FEVER; Start at 11:30 Acetaminophen (Tylenol Supp) 650 mg Q6H PRN [place] PAIN LEVEL 1-3 OR FEVER; Start 01/06/17 at 11:30 Morphine Sulfate (morphine) 2 mg Q4H PRN IV SEVERE PAIN LEVEL 7-10; Start 01/06 at 11:30 Famotidine (Pepcid) 20 mg Q12 PO Last administered on 01/08/17 08:23; Admin Dose 20 MG; Start 01/06/17 at 21:00 Heparin Sodium (Porcine) (Heparin (5000 Units/0.5 ml)) 5,000 unit Q12 SC Last administered on 01/08/17 08:24; Admin Dose 5,000 UNIT; Start 01/06/17 at 21:00 Alendronate Sodium (Fosamax) 70 mg Q7D PO Last administered on 01/06/17 14:00 ; Admin Dose 70 MG; Start 01/06/17 at 14:00 Aspirin (Halfprin) 81 mg DAILY PO Last administered on 01/08/17 08:18; Admin Dose 81 MG; Start 01/07/17 at 09:00 Atorvastatin Calcium (Lipitor) 20 mg HS PO Last administered on 01/07/17 20:19 ; Admin Dose 20 MG; Start 01/06/17 at 21:00 Duloxetine HCl (Cymbalta) 20 mg DAILY PO Last administered on 01/08/17 08:23; Admin Dose 20 MG; Start 01/07/17 at 09:00 Gabapentin (Neurontin) 300 mg TID PO Last administered on 01/08/17 08:19; Admin Dose 300 MG; Start 01/06/17 at 13:00 Insulin Glargine (Lantus) 30 unit DAILY@20 SC Last administered on 01/07/17 20 :21; Admin Dose 30 UNIT; Start 01/06/17 at 20:00 Metoprolol Tartrate (Lopressor) 12.5 mg BID PO ; Start 01/06/17 at 21:00; Status Future Hold Ticagrelor (Brilinta) 90 mg BID PO Last administered on 01/08/17 08:21; Admin Dose 90 MG; Start 01/06/17 at 21:00 Diagnostic Test (Pha) (Accu-Chek) 1 ea 02 XX ; Start 01/07/17 at 02:00 Diagnostic Test (Pha) (Accu-Chek) 1 ea 02 XX ; Start 01/07/17 at 02:00 Furosemide (Lasix) 20 mg DAILY PO ; Start 01/07/17 at 09:00; Status Future Hold Bisacodyl (Dulcolax Supp) 10 mg DAILY PRN [place] CONSTIPATION; Start 01/06/17 at 11 :30 Guaifenesin (Robitussin Liquid Cup) 100 mg Q6H PRN PO COUGH Last administered on 01/08/17 07:54; Admin Dose 100 MG; Start 01/06/17 at 11:30 Lactulose (Enulose) 20 gm DAILY PRN PO CONSTIPATION; Start 01/06/17 at 11:30 Levothyroxine Sodium (Synthroid) 112 mcg DAILY@06 PO Last administered on 06:33; Admin Dose 112 MCG; Start 01/07/17 at 06:00 Lisinopril (Zestril) 2.5 mg DAILY PO ; Start 01/07/17 at 09:00 Magnesium Hydroxide (Milk Of Mag) 30 ml DAILY PRN PO CONSTIPATION; Start at 11:30 Polyethylene Glycol (Miralax) 17 gm DAILY PO Last administered on 01/07/17 08: 24; Admin Dose 17 GM; Start 01/07/17 at 09:00 Potassium Chloride (Klor-Con 20) 40 meq DAILY PO Last administered on 08:18; Admin Dose 40 MEQ; Start 01/07/17 at 09:00 Senna (Senokot) 2 tab HS PO Last administered on 01/07/17 20:19; Admin Dose 2 TAB; Start 01/06/17 at 21:00 Miscellaneous Information 1 ea NOTE XX ; Start 01/06/17 at 12:00 Glucose (Glutose) 15 gm Q15M PRN PO DECREASED GLUCOSE; Start 01/06/17 at 12:00 Glucose (Glutose) 22.5 gm Q15M PRN PO DECREASED GLUCOSE; Start 01/06/17 at 12: 00 Dextrose (D50w Syringe) 25 ml Q15M PRN IV DECREASED GLUCOSE; Start 01/06/17 at 12:00 Dextrose (D50w Syringe) 50 ml Q15M PRN IV DECREASED GLUCOSE; Start 01/06/17 at 12:00 Glucagon (Glucagen) 1 mg Q15M PRN IM DECREASED GLUCOSE; Start 01/06/17 at 12:00 Glucose (Glutose) 15 gm Q15M PRN BUCCAL DECREASED GLUCOSE; Start 01/06/17 at 12 :00 RHONDA PENA Jan 08, 2017 09:58
--- NOTE | 2017-01-08 11:09 | PN ---
Date/Time of Note Date/Time of Note DATE: 01/08/17 TIME: 11:04 Assessment/Plan VTE Prophylaxis VTE Prophylaxis Intervention: heparin Lines/Catheters Urinary Cath still in place: No Assessment/Plan Chief Complaint/Hosp Course 1. Orthostatic hypotension. Resolved. -BB/Lasix on hold. 2. Non-ST elevation [place] with multivessel coronary artery disease on coronary angiogram. -Tentative plan for coronary artery bypass graft surgery on Thursday. -Continue cardiac recommendations: JAXON beta-enmanuel as tolerated,aspirin and Brilinta 3. Ischemic cardiomyopathy with last known ejection fraction 25%. -Continue aspirin/Brilinta/antihypertensives as tolerated. -Follow-up with cardiology recommendation. 4. COPD currently stable. CT chest noncontrast with Subpleural nodules in the left lower lobe with the largest measuring 7 mm in size. -Continue bronchodilators. -Counseled on smoking cessation. -Follow-up with Pulmonary function study and recs from pulmonary standpoint prior CABG. 5. Status post respiratory failure and pneumonia. Resolved 6. Dysphagia/Dysphasia with possible Underlying neck mass. -Patient is tolerating pured diet. ST following. -Follow-up with MRI Neck studies. 7. Type II diabetes mellitus. Now with more control. -Continue Accu-Cheks, ISS, 30 units Lantus at bedtime and pre-meal aspart 10 units. 8. Hypothyroidism. -On Synthroid. 8. Chronic anemia. H&H stable. Will monitor. 9. Significant deconditioning Continue with physical therapy as tolerated. DVT prophylaxis: Heparin PUD prophylaxis: Pepcid. Plan: As per CT surgery, plan for CABG on this Thursday. We will continue to monitor blood pressure closely. Will follow up with cardiology/pulmonary recs prior surgery. Case discussed with Problems: Subjective 24 Hr Interval Summary Free Text/Dictation No acute overnight episodes. Exam/Review of Systems Vital Signs Vitals Vital Signs Date Time Temp Pulse Resp B/P Pulse Ox O2 Delivery O2 Flow Rate FiO2 01/08/17 08:00 98.4 74 18 109/51 96 01/07/17 20:50 21 01/06/17 16:39 Room Air Intake and Output 01/07/17 01/07/17 01/08/17 15:00 23:00 07:00 Intake Total 960 ml 100 ml Output Total 3 ml Balance 957 ml 100 ml Exam General: Well developed,adequately built, not in any acute distress . HEENT: Normocephalic, Atraumatic, No laceration or hematoma; Eyes: PEERL, Conjunctiva clear, Anicteric sclera Neck: Supple without any lymphadenopathy, nontender, no JVD, no carotid bruits, trachea midline, no thyromegaly Cardiac: S1, S2 auscultated, regular rhythm and rate, no mumurs or gallop Pulmonary: Mild wheezing on upper lobes. Diminished breath sound bibasilar. Otherwise, normal respiratory effort. GI: Abdomen normal to inspection. Soft, non tender, non- distended, no masses, no rebound tenderness or guarding. Bowel sounds active on all four quadrants Genitourinary: Deferred Extremities: With generalized weakness. No cyanosis, clubbing, or edema. Pulses [2+] bilaterally. Full ROM on all four extremities. No focal weakness appreciated. Neurologic: Alert to person, place, time, and situation. Affect appropriate, intact sensation. Skin: Clean,dry, and intact. No ecchymosis, no rashes, or lesions Results Result Diagram: 01/07/17 0501 01/07/17 0501 Results 24 hrs Laboratory Tests Test 01/07/17 11:42 01/07/17 17:31 01/07/17 20:18 01/08/17 07:47 Bedside Glucose 155 191 180 89 Medications Medications Current Medications Ondansetron HCl (Zofran Inj) 4 mg Q6H PRN IV NAUSEA AND/OR VOMITING; Start at 11:30 Acetaminophen (Tylenol Tab) 650 mg Q6H PRN PO PAIN LEVEL 1-3 OR FEVER; Start at 11:30 Acetaminophen (Tylenol Supp) 650 mg Q6H PRN [place] PAIN LEVEL 1-3 OR FEVER; Start 01/06/17 at 11:30 Morphine Sulfate (morphine) 2 mg Q4H PRN IV SEVERE PAIN LEVEL 7-10; Start 01/06 at 11:30 Famotidine (Pepcid) 20 mg Q12 PO Last administered on 01/08/17 08:23; Admin Dose 20 MG; Start 01/06/17 at 21:00 Heparin Sodium (Porcine) (Heparin (5000 Units/0.5 ml)) 5,000 unit Q12 SC Last administered on 01/08/17 08:24; Admin Dose 5,000 UNIT; Start 01/06/17 at 21:00 Alendronate Sodium (Fosamax) 70 mg Q7D PO Last administered on 01/06/17 14:00 ; Admin Dose 70 MG; Start 01/06/17 at 14:00 Aspirin (Halfprin) 81 mg DAILY PO Last administered on 01/08/17 08:18; Admin Dose 81 MG; Start 01/07/17 at 09:00 Atorvastatin Calcium (Lipitor) 20 mg HS PO Last administered on 01/07/17 20:19 ; Admin Dose 20 MG; Start 01/06/17 at 21:00 Duloxetine HCl (Cymbalta) 20 mg DAILY PO Last administered on 01/08/17 08:23; Admin Dose 20 MG; Start 01/07/17 at 09:00 Gabapentin (Neurontin) 300 mg TID PO Last administered on 01/08/17 08:19; Admin Dose 300 MG; Start 01/06/17 at 13:00 Insulin Glargine (Lantus) 30 unit DAILY@20 SC Last administered on 01/07/17 20 :21; Admin Dose 30 UNIT; Start 01/06/17 at 20:00 Metoprolol Tartrate (Lopressor) 12.5 mg BID PO ; Start 01/06/17 at 21:00; Status Future Hold Ticagrelor (Brilinta) 90 mg BID PO Last administered on 01/08/17 08:21; Admin Dose 90 MG; Start 01/06/17 at 21:00 Diagnostic Test (Pha) (Accu-Chek) 1 ea 02 XX ; Start 01/07/17 at 02:00 Diagnostic Test (Pha) (Accu-Chek) 1 ea 02 XX ; Start 01/07/17 at 02:00 Furosemide (Lasix) 20 mg DAILY PO ; Start 01/07/17 at 09:00; Status Future Hold Bisacodyl (Dulcolax Supp) 10 mg DAILY PRN [place] CONSTIPATION; Start 01/06/17 at 11 :30 Guaifenesin (Robitussin Liquid Cup) 100 mg Q6H PRN PO COUGH Last administered on 01/08/17 07:54; Admin Dose 100 MG; Start 01/06/17 at 11:30 Lactulose (Enulose) 20 gm DAILY PRN PO CONSTIPATION; Start 01/06/17 at 11:30 Levothyroxine Sodium (Synthroid) 112 mcg DAILY@06 PO Last administered on 06:33; Admin Dose 112 MCG; Start 01/07/17 at 06:00 Lisinopril (Zestril) 2.5 mg DAILY PO ; Start 01/07/17 at 09:00 Magnesium Hydroxide (Milk Of Mag) 30 ml DAILY PRN PO CONSTIPATION; Start at 11:30 Polyethylene Glycol (Miralax) 17 gm DAILY PO Last administered on 01/07/17 08: 24; Admin Dose 17 GM; Start 01/07/17 at 09:00 Potassium Chloride (Klor-Con 20) 40 meq DAILY PO Last administered on 08:18; Admin Dose 40 MEQ; Start 01/07/17 at 09:00 Senna (Senokot) 2 tab HS PO Last administered on 01/07/17 20:19; Admin Dose 2 TAB; Start 01/06/17 at 21:00 Miscellaneous Information 1 ea NOTE XX ; Start 01/06/17 at 12:00 Glucose (Glutose) 15 gm Q15M PRN PO DECREASED GLUCOSE; Start 01/06/17 at 12:00 Glucose (Glutose) 22.5 gm Q15M PRN PO DECREASED GLUCOSE; Start 01/06/17 at 12: 00 Dextrose (D50w Syringe) 25 ml Q15M PRN IV DECREASED GLUCOSE; Start 01/06/17 at 12:00 Dextrose (D50w Syringe) 50 ml Q15M PRN IV DECREASED GLUCOSE; Start 01/06/17 at 12:00 Glucagon (Glucagen) 1 mg Q15M PRN IM DECREASED GLUCOSE; Start 01/06/17 at 12:00 Glucose (Glutose) 15 gm Q15M PRN BUCCAL DECREASED GLUCOSE; Start 01/06/17 at 12 :00 TAD HIGGINS NP Jan 08, 2017 11:09
--- NOTE | 2017-01-08 13:44 | RADRPT ---
AMENDMENT: 01/08/2017 2:18:25 PM Juliano Pinto M.d There is also absence of normal flow void in the right internal carotid artery, which also appears r elatively small in the cervical region, which may reflect chronic occlusion. This could be further a ssessed with CTA or MRA. PROCEDURE: MRI soft tissue neck without and with contrast CLINICAL INDICATION: Neck mass TECHNIQUE: Multiplanar MRI of the soft tissues of the neck was performed on a 3.0 T scanner with th e following sequences obtained: T1-weighted, T2-weighted, STIR, postcontrast T1-weighted. 10 cc Ma gnevist intravenous contrast was administered. COMPARISON: None available FINDINGS: A focal enhancing lesion is identified in the posterior left subglottic larynx at the level of the c ricoid measuring approximately 6 x 6 x 10 mm (AP x transverse x CC) with mild narrowing of the airwa y at this level. The pharynx is unremarkable. No enlarged lymph node meeting size criteria or abno rmal appearing lymph node is visualized throughout the neck. Thyroid gland is not visualized. The r est of the visceral space is unremarkable. The parapharyngeal and retropharyngeal spaces are clear. The carotid spaces are unremarkable. The parotid and submandibular glands are unremarkable. The imaged account manager b2b spaces are symmetric. Imaged skull base appears intact. The perivertebral and po sterior cervical spaces are unremarkable. Oral cavity structures appear unremarkable. Oral cavity structures are unremarkable. Noted is partial bilateral mastoid air cell opacification. IMPRESSION: Approximately 1 cm enhancing lesion in the posterior left subglottic larynx with mild narrowing of t he airway; neoplasm is a consideration and further evaluation with laryngoscopy is recommended. RPTAT: VV .Juliano Pinto MD, MD Date Time Electronically viewed and signed by .Juliano Pinto MD, MD on 01/08/2017 14:19 .O/
[2017-01-08 14:00] VITALS: BP 109/51; RESP 18
[2017-01-08 19:52] VITALS: BP 107/54; RESP 18
--- NOTE | 2017-01-08 20:20 | PN ---
Date/Time of Note Date/Time of Note DATE: 01/08/17 TIME: 20:18 Assessment/Plan Lines/Catheters [place] in Place (from [email or web address] No Assessment/Plan Chief Complaint/Hosp Course Patient with coronary artery disease multiple other medical problem Plan for coronary artery bypass grafting on Thursday Risks benefits complications alternative therapies explained to the patient Problems: Subjective 24 Hr Interval Summary Constitutional: improved Pain Control: mild Exam/Review of Systems Vital Signs Vitals Vital Signs Date Time Temp Pulse Resp B/P Pulse Ox O2 Delivery O2 Flow Rate FiO2 01/08/17 20:15 99 18 96 21 01/08/17 19:52 98.4 107/54 01/06/17 16:39 Room Air Intake and Output 01/07/17 01/07/17 01/08/17 15:00 23:00 07:00 Intake Total 960 ml 100 ml Output Total 3 ml Balance 957 ml 100 ml Exam ENMT: mucosa pink and moist, nl external ears & nose, nl lips & teeth, nl nasal mucosa & septum Neck: non-tender, supple Respiratory: clear to auscultation, normal air movement Cardiovascular: nl pulses, regular rate and rhythm Results Result Diagram: 01/07/17 0501 01/07/17 0501 CHELA ALVARENGA MD Jan 08, 2017 20:20
[2017-01-08] MEDS: SENNA TAB PO SCH (21:31)
[2017-01-08] MEDS: ATORVASTATIN 20 MG TAB PO SCH (21:31)
--- NOTE | 2017-01-08 21:33 | RADRPT ---
PROCEDURE: Carotid ultrasound CLINICAL INDICATION: Carotid stenosis, carotid bruits TECHNIQUE: Eric scale, color doppler, spectral doppler ultrasound of the bilateral carotid and glory tebral arteries. This study indirectly references the measurement of the distal ICA diameter as the denominator for s tenosis measurement. Validated velocity measurements with angiographic measurements, velocity criter ia are extrapolated from diameter data as defined by: *Cartoid artery stenosis: eric-scale and Doppl er US diagnosis. Society of Radiologists in Ultrasound Consensus Conference. Radiology 2003; 229: 34 0-346. SRU Consensus Conference Criteria for the Diagnosis of Carotid Artery Stenosis* Degree of Stenosis, % ICA PSV, cm/sec Plaque Estimate, % ICA/CCA PSV Ratio Normal <125 None <2.0 <50 <125 <50 <2.0 50 69 125-230 >50 2.0-4.0 >70 but less than near occlusion >230 >50 <4.0 Near occlusion High, low, or undetectable Visible Variable Total occlusion Undetectable Visible, no detectable lumen Not applicable COMPARISON: MRI of the neck 01/08/2017 FINDINGS: Location Right CCA87 cm/sec Prox ICA 64 cm/sec Mid ICAoccluded Dist ICAoccluded SUI807 cm/sec Left EBV010 cm/sec Prox ICA 69 cm/sec Mid ASL950 cm/sec Dist ICA67 cm/sec NPT293 cm/sec ICA/CCA0.9 Plaque burden: Large plaque burden involving the right internal carotid artery with occlusion. Mild plaques involving the left internal carotid artery. Antegrade flow is seen within the vertebral arteries bilaterally. IMPRESSION: Occlusion of the right internal carotid artery just beyond its origin due to large plaque burden as seen on the prior MRI. Small plaques involving the visualized portion of the left internal carotid artery without evidence of flow acceleration to suggest a hemodynamically significant stenosis; less than 50% stenosis. RPTAT: AADD .Paul Apodaca MD, Date Time Electronically viewed and signed by .Paul Apodaca MD, MD on 01/08/2017 21:33 .B/
[2017-01-08] MEDS: INSULIN GLARGINE [LANtus] 3 ML PEN SC SCH (21:38)
[2017-01-09] MEDS: ACCU-CHEK XX SCH ×2 (02:00)
[2017-01-09 02:11] VITALS: BP 99/52; RESP 18
[2017-01-09 05:11] LABS: AADO2 Arterial 21.6 mmHg (7.0-24.0); Allen Test ACCEPTAB; Arterial Base Excess 4.8 mmol/L (-3.0-3); Arterial COHb 0.1 % (0.0-3.0); Arterial Fraction of Oxyhgb 94.8 % (93.0-99.0); Arterial HCO3 29.1 mmol/L (22.0-26.0); Arterial MetHb 0.4 % (0.0-1.5); Arterial Total Hemglobin 12.1 g/dl (12.0-18.0); MODE ROOM AIR
[2017-01-09 05:51] LABS: BASOPHIL # 0.1 10^3/ul (0.0-0.1); BASOPHILS % 0.8 % (0.0-2.0); EOSINOPHILS # 0.3 10^3/ul (0.0-0.5); EOSINOPHILS % 4.6 % (0.0-7.0); HEMATOCRIT 33.7 % (37.0-47.0); HEMOGLOBIN 10.8 g/dl (12.0-16.0); LYMPHOCYTES # 1.1 10^3/ul (0.8-2.9); LYMPHOCYTES % 15.1 % (15.0-51.0); MEAN CORPUSCULAR HEMOGLOBIN 30.8 pg (29.0-33.0); MEAN PLATELET VOLUME 9.3 fl (7.4-10.4); MONOCYTE # 0.6 10^3/ul (0.3-0.9); MONOCYTES % 7.7 % (0.0-11.0); NEUTROPHIL # 5.1 10^3/ul (1.6-7.5); NEUTROPHILS % 71.4 % (39.0-77.0); PLATELET COUNT 392 10^3/UL (140-415); RED BLOOD COUNT 3.51 10^6/ul (4.20-5.40); RED CELL DISTRIBUTION WIDTH 16.2 % (11.5-14.5); WHITE BLOOD COUNT 7.2 10^3/ul (4.8-10.8)
[2017-01-09 06:24] LABS: INR 0.89; PT RATIO 0.9
[2017-01-09 06:25] LABS: PARTIAL THROMBOPLASTIN TIME 32.6 Sec (25.0-35.0)
[2017-01-09] MEDS: LEVOTHYROXINE 112 MCG TAB PO SCH (06:30)
[2017-01-09 07:09] LABS: ALBUMIN 3.5 g/dl (3.3-4.9); ALBUMIN/GLOBULIN RATIO 1.12; BILIRUBIN,INDIRECT 0.4 mg/dl (0-1.1); BILIRUBIN,TOTAL 0.4 mg/dl (0.2-1.3); CALCIUM 9.5 mg/dl (8.4-10.2); CREATININE 0.5 mg/dl (0.44-1.00); MAGNESIUM 1.9 mg/dl (1.7-2.5); PHOSPHORUS 5.3 mg/dl (2.5-4.9); POTASSIUM 4.9 mmol/L (3.5-5.1); TOTAL PROTEIN 6.6 g/dl (6.1-8.1)
[2017-01-09] MEDS: INSULIN ASPART [NOVOLOG] 3 ML PEN SC SCH ×6 (07:35→20:20)
[2017-01-09] MEDS: DEXTROSE 50% 50 ML SYRINGE IV PRN (07:52)
[2017-01-09] MEDS: GLUCOSE GEL 15 GRAM TUBE BUCCAL PRN ×2 (07:55→08:14)
[2017-01-09 08:00] VITALS: BP 108/51; RESP 20
[2017-01-09] MEDS: LISINOPRIL 5 MG TAB PO SCH (09:00)
[2017-01-09] MEDS: POLYETHYLENE GLYCOL 17 GM PACKET PO SCH (09:00)
[2017-01-09] MEDS: ALBUTEROL/IPRATROPIUM (NEB) 3 ML AMP HHN SCH ×3 (09:09→19:53)
[2017-01-09] MEDS: TICAGRELOR 90 MG TABLET PO SCH (10:09)
[2017-01-09] MEDS: HEPARIN 5,000 UNIT/0.5 ML VIAL SC SCH ×2 (10:09→20:20)
[2017-01-09] MEDS: FAMOTIDINE 20 MG TAB PO SCH ×2 (10:10→20:17)
[2017-01-09] MEDS: DULOXETINE 20 MG CAP DR PO SCH (10:10)
[2017-01-09] MEDS: ASPIRIN (EC) 81 MG TAB PO SCH (10:10)
[2017-01-09] MEDS: POTASSIUM CHLORIDE (SR) 20 MEQ TAB PO SCH (10:11)
[2017-01-09] MEDS: GABAPENTIN 300 MG CAP PO SCH ×3 (10:12→20:17)
--- NOTE | 2017-01-09 11:03 | PN ---
Date/Time of Note Date/Time of Note DATE: 01/09/17 TIME: 10:56 Assessment/Plan VTE Prophylaxis VTE Prophylaxis Intervention: heparin Lines/Catheters Urinary Cath still in place: No Assessment/Plan Chief Complaint/Hosp Course 1. Orthostatic hypotension. Resolved. -BB/Lasix on hold. 2. Non-ST elevation UT with multivessel coronary artery disease on coronary angiogram. -Tentative plan for coronary artery bypass graft surgery on Thursday. -Continue cardiac recommendations: JAXON beta-enmanuel as tolerated,aspirin and Brilinta 3. Ischemic cardiomyopathy with last known ejection fraction 25%. -Continue aspirin/Brilinta/antihypertensives as tolerated. -Follow-up with cardiology recommendation. 4. Severe obstructive and restrictive pulmonary disease. Status post PFT -Continue bronchodilators. -Counseled on smoking cessation. -Follow-up with Pulmonary recs prior CABG. 5. Status post respiratory failure and pneumonia. Resolved 6. Dysphagia/Dysphasia with possible Underlying neck mass.MRI neck with Approximately 1 cm enhancing lesion in the posterior left subglottic larynx with mild narrowing of the airway. -Spoke with and recommended bronchoscopy with possible biopsy of the lesion as its in the trachea. This was discussed with and we will follow recs. - Continue with ST eval and diet recs.Patient is tolerating honey thick/pured diet. 7. Type II diabetes mellitus.Again with hypoglycemic episodes. -Patient with poor intake. At this time, we don't think she needs premeal insulin as this drops her BS consistently. Will also adjust PM Lantus dose to 20 units. Continue Accu-Cheks/ ISS 8. Hypothyroidism. -On Synthroid. 8. Chronic anemia. H&H stable. Will monitor. 9. Significant deconditioning Continue with physical therapy as tolerated. DVT prophylaxis: Heparin PUD prophylaxis: Pepcid. Plan: As per CT surgery, plan for CABG on Thursday. Given patient's medical condition, patient is at very high risk for any untoward medical events for high risk CABG surgery. Please follow up with cardiology/pulmonary recs prior to any surgical intervention for risk stratification. Case discussed with Problems: Subjective 24 Hr Interval Summary Free Text/Dictation Patient with asymptomatic hypoglycemic episodes. Tentative plan for CT surgery on Thursday Exam/Review of Systems Vital Signs Vitals Vital Signs Date Time Temp Pulse Resp B/P Pulse Ox O2 Delivery O2 Flow Rate FiO2 01/09/17 09:13 98 21 01/09/17 09:12 89 20 01/09/17 08:00 98.8 108/51 01/06/17 16:39 Room Air Intake and Output 01/08/17 01/08/17 01/09/17 15:00 23:00 07:00 Intake Total 560 ml 320 ml Balance 560 ml 320 ml Exam General: Well developed,adequately built, not in any acute distress . HEENT: Normocephalic, Atraumatic, No laceration or hematoma; Eyes: PEERL, Conjunctiva clear, Anicteric sclera Neck: Supple without any lymphadenopathy, nontender, no JVD, no carotid bruits, trachea midline, no thyromegaly Cardiac: S1, S2 auscultated, regular rhythm and rate, no mumurs or gallop Pulmonary: Mild wheezing on upper lobes. Diminished breath sound bibasilar. Otherwise, normal respiratory effort. GI: Abdomen normal to inspection. Soft, non tender, non- distended, no masses, no rebound tenderness or guarding. Bowel sounds active on all four quadrants Genitourinary: Deferred Extremities: With generalized weakness. No cyanosis, clubbing, or edema. Pulses [2+] bilaterally. Full ROM on all four extremities. No focal weakness appreciated. Neurologic: Alert to person, place, time, and situation. Affect appropriate, intact sensation. Skin: Clean,dry, and intact. No ecchymosis, no rashes, or lesions Results Result Diagram: 01/09/17 0502 01/09/17 0502 Results 24 hrs Laboratory Tests Test 01/08/17 11:48 01/08/17 17:02 01/08/17 21:29 01/09/17 05:00 Bedside Glucose 92 134 123 Blood Gas Specimen Source Blood arterial Arterial Blood Date Drawn 01/09/2017 5:05:39 AM Arterial Blood pH (Temp corrected) 7.456 H Arterial Blood pCO2 (Temp correct) 42.3 Arterial Blood pO2 (Temp corrected) 77.5 L Arterial Blood HCO3 29.1 H Arterial Blood Base Excess 4.8 H Arterial Blood Oxygen Saturation 95.3 Miguel Test ACCEPTAB Arterial Blood Gas Puncture Site Right Radial Arterial Blood Carboxyhemoglobin 0.1 Arterial Blood Methemoglobin 0.4 Blood Gas A-a O2 Differential 21.6 Oxyhemoglobin Percent 94.8 Total Hemoglobin 12.1 Blood Gas Temperature 37.0 Blood Gas Actual Respiration Rate 18 Blood Gas Modality ROOM AIR FiO2 21.0 Blood Gas Notified Whom Blood Gas Notified Time 01/09/2017 5:11:13 AM Test 01/09/17 05:02 01/09/17 07:48 01/09/17 08:05 01/09/17 08:25 White Blood Count 7.2 Red Blood Count 3.51 L Hemoglobin 10.8 L Hematocrit 33.7 L Mean Corpuscular Volume 96.0 Mean Corpuscular Hemoglobin 30.8 Mean Corpuscular Hemoglobin Concent 32.0 Red Cell Distribution Width 16.2 H Platelet Count 392 Mean Platelet Volume 9.3 Neutrophils % 71.4 Lymphocytes % 15.1 Monocytes % 7.7 Eosinophils % 4.6 Basophils % 0.8 Nucleated Red Blood Cells % 0.0 Neutrophils # 5.1 Lymphocytes # 1.1 Monocytes # 0.6 Eosinophils # 0.3 Basophils # 0.1 Nucleated Red Blood Cells # 0.0 Prothrombin Time 12.0 L Prothrombin Time Ratio 0.9 INR International Normalized Ratio 0.89 Activated Partial Thromboplast Time 32.6 Sodium Level 143 Potassium Level 4.9 Chloride Level 100 Carbon Dioxide Level 29 Anion Gap 19 H Blood Urea Nitrogen 9 Creatinine 0.50 Glucose Level 38 *L Calcium Level 9.5 Phosphorus Level 5.3 H Magnesium Level 1.9 Total Bilirubin 0.4 Direct Bilirubin 0.00 Indirect Bilirubin 0.4 Aspartate Amino Transf (AST/SGOT) 26 Alanine Aminotransferase (ALT/SGPT) 29 Alkaline Phosphatase 73 Total Protein 6.6 Albumin 3.5 Globulin 3.10 Albumin/Globulin Ratio 1.12 Bedside Glucose 39 *L 32 *L 46 *L Test 01/09/17 08:47 01/09/17 09:17 01/09/17 09:33 Bedside Glucose 79 169 234 H Medications Medications Current Medications Ondansetron HCl (Zofran Inj) 4 mg Q6H PRN IV NAUSEA AND/OR VOMITING; Start at 11:30 Acetaminophen (Tylenol Tab) 650 mg Q6H PRN PO PAIN LEVEL 1-3 OR FEVER; Start at 11:30 Acetaminophen (Tylenol Supp) 650 mg Q6H PRN ME PAIN LEVEL 1-3 OR FEVER; Start 01/06/17 at 11:30 Morphine Sulfate (morphine) 2 mg Q4H PRN IV SEVERE PAIN LEVEL 7-10; Start 01/06 at 11:30 Famotidine (Pepcid) 20 mg Q12 PO Last administered on 01/09/17 10:10; Admin Dose 20 MG; Start 01/06/17 at 21:00 Heparin Sodium (Porcine) (Heparin (5000 Units/0.5 ml)) 5,000 unit Q12 SC Last administered on 01/09/17 10:09; Admin Dose 5,000 UNIT; Start 01/06/17 at 21:00 Alendronate Sodium (Fosamax) 70 mg Q7D PO Last administered on 01/06/17 14:00 ; Admin Dose 70 MG; Start 01/06/17 at 14:00 Aspirin (Halfprin) 81 mg DAILY PO Last administered on 01/09/17 10:10; Admin Dose 81 MG; Start 01/07/17 at 09:00 Atorvastatin Calcium (Lipitor) 20 mg HS PO Last administered on 01/08/17 21:31 ; Admin Dose 20 MG; Start 01/06/17 at 21:00 Duloxetine HCl (Cymbalta) 20 mg DAILY PO Last administered on 01/09/17 10:10; Admin Dose 20 MG; Start 01/07/17 at 09:00 Gabapentin (Neurontin) 300 mg TID PO Last administered on 01/09/17 10:12; Admin Dose 300 MG; Start 01/06/17 at 13:00 Metoprolol Tartrate (Lopressor) 12.5 mg BID PO ; Start 01/06/17 at 21:00; Status Future Hold Ticagrelor (Brilinta) 90 mg BID PO Last administered on 01/09/17 10:09; Admin Dose 90 MG; Start 01/06/17 at 21:00 Diagnostic Test (Pha) (Accu-Chek) 1 ea 02 XX ; Start 01/07/17 at 02:00 Diagnostic Test (Pha) (Accu-Chek) 1 ea 02 XX ; Start 01/07/17 at 02:00 Furosemide (Lasix) 20 mg DAILY PO ; Start 01/07/17 at 09:00; Status Future Hold Bisacodyl (Dulcolax Supp) 10 mg DAILY PRN ME CONSTIPATION; Start 01/06/17 at 11 :30 Guaifenesin (Robitussin Liquid Cup) 100 mg Q6H PRN PO COUGH Last administered on 01/08/17 07:54; Admin Dose 100 MG; Start 01/06/17 at 11:30 Lactulose (Enulose) 20 gm DAILY PRN PO CONSTIPATION; Start 01/06/17 at 11:30 Levothyroxine Sodium (Synthroid) 112 mcg DAILY@06 PO Last administered on 06:30; Admin Dose 112 MCG; Start 01/07/17 at 06:00 Lisinopril (Zestril) 2.5 mg DAILY PO ; Start 01/07/17 at 09:00 Magnesium Hydroxide (Milk Of Mag) 30 ml DAILY PRN PO CONSTIPATION; Start at 11:30 Polyethylene Glycol (Miralax) 17 gm DAILY PO Last administered on 01/07/17 08: 24; Admin Dose 17 GM; Start 01/07/17 at 09:00 Potassium Chloride (Klor-Con 20) 40 meq DAILY PO Last administered on 10:11; Admin Dose 40 MEQ; Start 01/07/17 at 09:00 Senna (Senokot) 2 tab HS PO Last administered on 01/08/17 21:31; Admin Dose 2 TAB; Start 01/06/17 at 21:00 Miscellaneous Information 1 ea NOTE XX ; Start 01/06/17 at 12:00 Glucose (Glutose) 15 gm Q15M PRN PO DECREASED GLUCOSE; Start 01/06/17 at 12:00 Glucose (Glutose) 22.5 gm Q15M PRN PO DECREASED GLUCOSE; Start 01/06/17 at 12: 00 Dextrose (D50w Syringe) 25 ml Q15M PRN IV DECREASED GLUCOSE; Start 01/06/17 at 12:00 Dextrose (D50w Syringe) 50 ml Q15M PRN IV DECREASED GLUCOSE; Start 01/06/17 at 12:00 Glucagon (Glucagen) 1 mg Q15M PRN IM DECREASED GLUCOSE; Start 01/06/17 at 12:00 Glucose (Glutose) 15 gm Q15M PRN BUCCAL DECREASED GLUCOSE Last administered on 01/09/17 08:14; Admin Dose 15 GM; Start 01/06/17 at 12:00 Insulin Glargine (Lantus) 20 unit DAILY@20 SC ; Start 01/09/17 at 20:00; Status UNV TAD HIGGINS NP Jan 09, 2017 11:03 TAD HIGGINS NP Jan 09, 2017 11:03
[2017-01-09] MEDS ORDERED: INSULIN ASPART [NOVOLOG] 3 ML PEN SC SCH (11:30)
--- NOTE | 2017-01-09 13:41 | PN ---
Date/Time of Note Date/Time of Note DATE: 01/09/17 TIME: 13:39 Assessment/Plan Lines/Catheters [facility] in Place (from [facility]): No Assessment/Plan Chief Complaint/Hosp Course Patient with coronary artery disease multiple other medical problem Carotid dupplex Occlusion of the right internal carotid artery just beyond its origin due to large plaque burden as seen on the prior MRI. Small plaques involving the visualized portion of the left internal carotid artery without evidence of flow acceleration to suggest a hemodynamically significant stenosis; less than 50% Plan for coronary artery bypass grafting on Thursday Patient is at very high risk of having surgery secondary to significant comorbidities including carotid occlusion Risks benefits complications alternative therapies explained to the patient Problems: Subjective 24 Hr Interval Summary Constitutional: improved Pain Control: mild Exam/Review of Systems Vital Signs Vitals Vital Signs Date Time Temp Pulse Resp B/P Pulse Ox O2 Delivery O2 Flow Rate FiO2 01/09/17 09:13 98 21 01/09/17 09:12 89 20 01/09/17 08:00 98.8 108/51 01/06/17 16:39 Room Air Intake and Output 01/08/17 01/08/17 01/09/17 15:00 23:00 07:00 Intake Total 560 ml 320 ml Balance 560 ml 320 ml Exam ENMT: mucosa pink and moist, nl external ears & nose, nl lips & teeth, nl nasal mucosa & septum Neck: non-tender, supple Respiratory: clear to auscultation, normal air movement Cardiovascular: nl pulses, regular rate and rhythm Gastrointestinal: nl liver, spleen, non-tender, soft Results Result Diagram: 01/09/17 0502 01/09/17 0502 CHELA ALVARENGA MD Jan 09, 2017 13:41
[2017-01-09 14:00] VITALS: BP 119/85; RESP 18
--- NOTE | 2017-01-09 14:28 | CONS ---
Date/Time of Note Date/Time of Note DATE: 01/09/17 TIME: 14:25 Assessment/Plan Assessment/Plan Chief Complaint/Hosp Course IMP: 1.NSTEMI-peak trop>60 Now dowtrended significantly s/p LHC with patent RCA stents and high grade disease of LAD/LCX with small caliber vessels and recc for CABG. Still ongoing surgical eval and question date of possible surgery? 2.cardiomyopathy-LVEF 40-45 BY OSH echo. 25% by echo read here 3.Hypotension-orthostatics today with transfer to med-surg-? overdiuresis- currently improved 4.resp failure s/p extubation requiring PRN BIPAP which has now improved and not requiring further at this time 5.anemia 6. AMS/encephalopathy 7. PNA-ongoing by chest CT 8. COPD 9. Hypothyroid 10.DM-labile BS 11.Neck mass? with dysphagia 12. carotid stenosis Recc: -Now transferred to med-surg -Hold BB/lasix and follow BP -Contiknue acei as tolerated only -Continue asa -Hold brilinta in anticipation of upcoming CT surgery -Continue statin -Smoking cessation -Follow BS closely and adjust insulin therapy as necessary -Continue abx's and f/u cx data -Continue bronchodilators -CT surgical eval ongoing and have discussed with daughter/patient who are agreeable and CT surgery following with surgery tenatively scheduled for this upcoming thursday Problems: Consultation Date/Type/Reason Admit Date/Time Jan 06, 2017 at 10:49 Initial Consult Date 01/06/2017 Type of Consultation: cardiology Reason for Consultation nstemi Referring Provider: TAD HIGGINS NP Exam/Review of Systems Vital Signs Vitals Vital Signs Date Time Temp Pulse Resp B/P Pulse Ox O2 Delivery O2 Flow Rate FiO2 01/09/17 09:13 98 21 01/09/17 09:12 89 20 01/09/17 08:00 98.8 108/51 01/06/17 16:39 Room Air Intake and Output 01/08/17 01/08/17 01/09/17 15:00 23:00 07:00 Intake Total 560 ml 320 ml Balance 560 ml 320 ml Exam Review of Systems: CONSTITUTIONAL: No fevers, chills. PULMONARY: No sob CARDIOVASCULAR: No chest pain/palpitations GASTROINTESTINAL: No nausea/vomiting. GENITOURINARY: No hematuria/dysuria. MUSCULOSKELETAL: No myagias/arthalgias. PSYCHIATRIC: The patient denies depression. NEUROLOGIC: No weakness Constitutional: alert Psych: no complaints Head: normocephalic ENMT: mucosa pink and moist Neck: jvd (9 cm water), supple Respiratory: diminished breath sounds (at bases/B) Cardiovascular: regular rate and rhythm Gastrointestinal: non-tender, soft Musculoskeletal: muscle tone (normal) Extremities: edema (none) 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: other (NO focal deficits) Results Result Diagram: 01/09/17 0502 01/09/17 0502 Results 24 hrs Laboratory Tests Test 01/08/17 17:02 01/08/17 21:29 01/09/17 05:00 01/09/17 05:02 Bedside Glucose 134 123 Blood Gas Specimen Source Blood arterial Arterial Blood Date Drawn 01/09/2017 5:05:39 AM Arterial Blood pH (Temp corrected) 7.456 H Arterial Blood pCO2 (Temp correct) 42.3 Arterial Blood pO2 (Temp corrected) 77.5 L Arterial Blood HCO3 29.1 H Arterial Blood Base Excess 4.8 H Arterial Blood Oxygen Saturation 95.3 Miguel Test ACCEPTAB Arterial Blood Gas Puncture Site Right Radial Arterial Blood Carboxyhemoglobin 0.1 Arterial Blood Methemoglobin 0.4 Blood Gas A-a O2 Differential 21.6 Oxyhemoglobin Percent 94.8 Total Hemoglobin 12.1 Blood Gas Temperature 37.0 Blood Gas Actual Respiration Rate 18 Blood Gas Modality ROOM AIR FiO2 21.0 Blood Gas Notified Whom Blood Gas Notified Time 01/09/2017 5:11:13 AM White Blood Count 7.2 Red Blood Count 3.51 L Hemoglobin 10.8 L Hematocrit 33.7 L Mean Corpuscular Volume 96.0 Mean Corpuscular Hemoglobin 30.8 Mean Corpuscular Hemoglobin Concent 32.0 Red Cell Distribution Width 16.2 H Platelet Count 392 Mean Platelet Volume 9.3 Neutrophils % 71.4 Lymphocytes % 15.1 Monocytes % 7.7 Eosinophils % 4.6 Basophils % 0.8 Nucleated Red Blood Cells % 0.0 Neutrophils # 5.1 Lymphocytes # 1.1 Monocytes # 0.6 Eosinophils # 0.3 Basophils # 0.1 Nucleated Red Blood Cells # 0.0 Prothrombin Time 12.0 L Prothrombin Time Ratio 0.9 INR International Normalized Ratio 0.89 Activated Partial Thromboplast Time 32.6 Sodium Level 143 Potassium Level 4.9 Chloride Level 100 Carbon Dioxide Level 29 Anion Gap 19 H Blood Urea Nitrogen 9 Creatinine 0.50 Glucose Level 38 *L Calcium Level 9.5 Phosphorus Level 5.3 H Magnesium Level 1.9 Total Bilirubin 0.4 Direct Bilirubin 0.00 Indirect Bilirubin 0.4 Aspartate Amino Transf (AST/SGOT) 26 Alanine Aminotransferase (ALT/SGPT) 29 Alkaline Phosphatase 73 Total Protein 6.6 Albumin 3.5 Globulin 3.10 Albumin/Globulin Ratio 1.12 Test 01/09/17 07:48 01/09/17 08:05 01/09/17 08:25 01/09/17 08:47 Bedside Glucose 39 *L 32 *L 46 *L 79 Test 01/09/17 09:17 01/09/17 09:33 01/09/17 12:24 Bedside Glucose 169 234 H 399 H Medications Medications Current Medications Ondansetron HCl (Zofran Inj) 4 mg Q6H PRN IV NAUSEA AND/OR VOMITING; Start at 11:30 Acetaminophen (Tylenol Tab) 650 mg Q6H PRN PO PAIN LEVEL 1-3 OR FEVER; Start at 11:30 Acetaminophen (Tylenol Supp) 650 mg Q6H PRN SD PAIN LEVEL 1-3 OR FEVER; Start 01/06/17 at 11:30 Morphine Sulfate (morphine) 2 mg Q4H PRN IV SEVERE PAIN LEVEL 7-10; Start 01/06 at 11:30 Famotidine (Pepcid) 20 mg Q12 PO Last administered on 01/09/17 10:10; Admin Dose 20 MG; Start 01/06/17 at 21:00 Heparin Sodium (Porcine) (Heparin (5000 Units/0.5 ml)) 5,000 unit Q12 SC Last administered on 01/09/17 10:09; Admin Dose 5,000 UNIT; Start 01/06/17 at 21:00 Alendronate Sodium (Fosamax) 70 mg Q7D PO Last administered on 01/06/17 14:00 ; Admin Dose 70 MG; Start 01/06/17 at 14:00 Aspirin (Halfprin) 81 mg DAILY PO Last administered on 01/09/17 10:10; Admin Dose 81 MG; Start 01/07/17 at 09:00 Atorvastatin Calcium (Lipitor) 20 mg HS PO Last administered on 01/08/17 21:31 ; Admin Dose 20 MG; Start 01/06/17 at 21:00 Duloxetine HCl (Cymbalta) 20 mg DAILY PO Last administered on 01/09/17 10:10; Admin Dose 20 MG; Start 01/07/17 at 09:00 Gabapentin (Neurontin) 300 mg TID PO Last administered on 01/09/17 12:27; Admin Dose 300 MG; Start 01/06/17 at 13:00 Metoprolol Tartrate (Lopressor) 12.5 mg BID PO ; Start 01/06/17 at 21:00; Status Future Hold Ticagrelor (Brilinta) 90 mg BID PO Last administered on 01/09/17 10:09; Admin Dose 90 MG; Start 01/06/17 at 21:00 Diagnostic Test (Pha) (Accu-Chek) 1 ea 02 XX ; Start 01/07/17 at 02:00 Diagnostic Test (Pha) (Accu-Chek) 1 ea 02 XX ; Start 01/07/17 at 02:00 Furosemide (Lasix) 20 mg DAILY PO ; Start 01/07/17 at 09:00; Status Future Hold Bisacodyl (Dulcolax Supp) 10 mg DAILY PRN SD CONSTIPATION; Start 01/06/17 at 11 :30 Guaifenesin (Robitussin Liquid Cup) 100 mg Q6H PRN PO COUGH Last administered on 01/08/17 07:54; Admin Dose 100 MG; Start 01/06/17 at 11:30 Lactulose (Enulose) 20 gm DAILY PRN PO CONSTIPATION; Start 01/06/17 at 11:30 Levothyroxine Sodium (Synthroid) 112 mcg DAILY@06 PO Last administered on 06:30; Admin Dose 112 MCG; Start 01/07/17 at 06:00 Lisinopril (Zestril) 2.5 mg DAILY PO ; Start 01/07/17 at 09:00 Magnesium Hydroxide (Milk Of Mag) 30 ml DAILY PRN PO CONSTIPATION; Start at 11:30 Polyethylene Glycol (Miralax) 17 gm DAILY PO Last administered on 01/07/17 08: 24; Admin Dose 17 GM; Start 01/07/17 at 09:00 Potassium Chloride (Klor-Con 20) 40 meq DAILY PO Last administered on 10:11; Admin Dose 40 MEQ; Start 01/07/17 at 09:00 Senna (Senokot) 2 tab HS PO Last administered on 01/08/17 21:31; Admin Dose 2 TAB; Start 01/06/17 at 21:00 Miscellaneous Information 1 ea NOTE XX ; Start 01/06/17 at 12:00 Glucose (Glutose) 15 gm Q15M PRN PO DECREASED GLUCOSE; Start 01/06/17 at 12:00 Glucose (Glutose) 22.5 gm Q15M PRN PO DECREASED GLUCOSE; Start 01/06/17 at 12: 00 Dextrose (D50w Syringe) 25 ml Q15M PRN IV DECREASED GLUCOSE; Start 01/06/17 at 12:00 Dextrose (D50w Syringe) 50 ml Q15M PRN IV DECREASED GLUCOSE; Start 01/06/17 at 12:00 Glucagon (Glucagen) 1 mg Q15M PRN IM DECREASED GLUCOSE; Start 01/06/17 at 12:00 Glucose (Glutose) 15 gm Q15M PRN BUCCAL DECREASED GLUCOSE Last administered on 01/09/17 08:14; Admin Dose 15 GM; Start 01/06/17 at 12:00 Insulin Glargine (Lantus) 20 unit DAILY@20 SC ; Start 01/09/17 at 20:00 RHONDA PENA Jan 09, 2017 14:28
--- NOTE | 2017-01-09 14:55 | CONS ---
Date/Time of Note Date/Time of Note DATE: 01/09/17 TIME: 14:52 Consult Date/Type/Reason Admit Date/Time Jan 06, 2017 at 10:49 Initial Consult Date Type of Consultation: Pulmonary Ordering Provider: TAD HIGGINS NP Subjective Patient doing well following transfer from acute rehab unit. Awake alert comfortable this morning sitting up in bed. Objective Vital Signs Date Time Temp Pulse Resp B/P Pulse Ox O2 Delivery O2 Flow Rate FiO2 01/09/17 14:35 97 21 01/09/17 14:34 93 18 01/09/17 08:00 98.8 108/51 01/06/17 16:39 Room Air Intake and Output 01/08/17 01/08/17 01/09/17 15:00 23:00 07:00 Intake Total 560 ml 320 ml Balance 560 ml 320 ml Exam GENERAL: Thin cachectic chronically ill-appearing lady VITAL SIGNS: per chart NECK: Supple. No JVD or lymphadenopathy. CARDIAC EXAM: S1, S2. No added sounds or murmurs. CHEST: clear bilaterally, No added sounds, rales or wheezes ABDOMEN: Soft, nontender. No guarding or rebound. EXTREMITIES: No cyanosis, clubbing or edema. NEUROLOGIC: Generalized weakness. No focal deficits. Results/Medications Result Diagram: 01/09/17 0502 01/09/17 0502 Results 24 hrs Laboratory Tests Test 01/08/17 17:02 01/08/17 21:29 01/09/17 05:00 01/09/17 05:02 Bedside Glucose 134 123 Blood Gas Specimen Source Blood arterial Arterial Blood Date Drawn 01/09/2017 5:05:39 AM Arterial Blood pH (Temp corrected) 7.456 H Arterial Blood pCO2 (Temp correct) 42.3 Arterial Blood pO2 (Temp corrected) 77.5 L Arterial Blood HCO3 29.1 H Arterial Blood Base Excess 4.8 H Arterial Blood Oxygen Saturation 95.3 Miguel Test ACCEPTAB Arterial Blood Gas Puncture Site Right Radial Arterial Blood Carboxyhemoglobin 0.1 Arterial Blood Methemoglobin 0.4 Blood Gas A-a O2 Differential 21.6 Oxyhemoglobin Percent 94.8 Total Hemoglobin 12.1 Blood Gas Temperature 37.0 Blood Gas Actual Respiration Rate 18 Blood Gas Modality ROOM AIR FiO2 21.0 Blood Gas Notified Whom Blood Gas Notified Time 01/09/2017 5:11:13 AM White Blood Count 7.2 Red Blood Count 3.51 L Hemoglobin 10.8 L Hematocrit 33.7 L Mean Corpuscular Volume 96.0 Mean Corpuscular Hemoglobin 30.8 Mean Corpuscular Hemoglobin Concent 32.0 Red Cell Distribution Width 16.2 H Platelet Count 392 Mean Platelet Volume 9.3 Neutrophils % 71.4 Lymphocytes % 15.1 Monocytes % 7.7 Eosinophils % 4.6 Basophils % 0.8 Nucleated Red Blood Cells % 0.0 Neutrophils # 5.1 Lymphocytes # 1.1 Monocytes # 0.6 Eosinophils # 0.3 Basophils # 0.1 Nucleated Red Blood Cells # 0.0 Prothrombin Time 12.0 L Prothrombin Time Ratio 0.9 INR International Normalized Ratio 0.89 Activated Partial Thromboplast Time 32.6 Sodium Level 143 Potassium Level 4.9 Chloride Level 100 Carbon Dioxide Level 29 Anion Gap 19 H Blood Urea Nitrogen 9 Creatinine 0.50 Glucose Level 38 *L Calcium Level 9.5 Phosphorus Level 5.3 H Magnesium Level 1.9 Total Bilirubin 0.4 Direct Bilirubin 0.00 Indirect Bilirubin 0.4 Aspartate Amino Transf (AST/SGOT) 26 Alanine Aminotransferase (ALT/SGPT) 29 Alkaline Phosphatase 73 Total Protein 6.6 Albumin 3.5 Globulin 3.10 Albumin/Globulin Ratio 1.12 Test 01/09/17 07:48 01/09/17 08:05 01/09/17 08:25 01/09/17 08:47 Bedside Glucose 39 *L 32 *L 46 *L 79 Test 01/09/17 09:17 01/09/17 09:33 01/09/17 12:24 Bedside Glucose 169 234 H 399 H Medications Current Medications Ondansetron HCl (Zofran Inj) 4 mg Q6H PRN IV NAUSEA AND/OR VOMITING; Start at 11:30 Acetaminophen (Tylenol Tab) 650 mg Q6H PRN PO PAIN LEVEL 1-3 OR FEVER; Start at 11:30 Acetaminophen (Tylenol Supp) 650 mg Q6H PRN [place] PAIN LEVEL 1-3 OR FEVER; Start 01/06/17 at 11:30 Morphine Sulfate (morphine) 2 mg Q4H PRN IV SEVERE PAIN LEVEL 7-10; Start 01/06 at 11:30 Famotidine (Pepcid) 20 mg Q12 PO Last administered on 7/28/17at 10:10; Admin Dose 20 MG; Start 01/06/17 at 21:00 Heparin Sodium (Porcine) (Heparin (5000 Units/0.5 ml)) 5,000 unit Q12 SC Last administered on 01/09/17 10:09; Admin Dose 5,000 UNIT; Start 01/06/17 at 21:00 Alendronate Sodium (Fosamax) 70 mg Q7D PO Last administered on 01/06/17 14:00 ; Admin Dose 70 MG; Start 01/06/17 at 14:00 Aspirin (Halfprin) 81 mg DAILY PO Last administered on 01/09/17 10:10; Admin Dose 81 MG; Start 01/07/17 at 09:00 Atorvastatin Calcium (Lipitor) 20 mg HS PO Last administered on 01/08/17 21:31 ; Admin Dose 20 MG; Start 01/06/17 at 21:00 Duloxetine HCl (Cymbalta) 20 mg DAILY PO Last administered on 01/09/17 10:10; Admin Dose 20 MG; Start 01/07/17 at 09:00 Gabapentin (Neurontin) 300 mg TID PO Last administered on 01/09/17 12:27; Admin Dose 300 MG; Start 01/06/17 at 13:00 Metoprolol Tartrate (Lopressor) 12.5 mg BID PO ; Start 01/06/17 at 21:00; Status Future Hold Ticagrelor (Brilinta) 90 mg BID PO Last administered on 01/09/17 10:09; Admin Dose 90 MG; Start 01/06/17 at 21:00; Status Future Hold Diagnostic Test (Pha) (Accu-Chek) 1 ea 02 XX ; Start 01/07/17 at 02:00 Diagnostic Test (Pha) (Accu-Chek) 1 ea 02 XX ; Start 01/07/17 at 02:00 Furosemide (Lasix) 20 mg DAILY PO ; Start 01/07/17 at 09:00; Status Future Hold Bisacodyl (Dulcolax Supp) 10 mg DAILY PRN [place] CONSTIPATION; Start 01/06/17 at 11 :30 Guaifenesin (Robitussin Liquid Cup) 100 mg Q6H PRN PO COUGH Last administered on 01/08/17 07:54; Admin Dose 100 MG; Start 7/25/17 at 11:30 Lactulose (Enulose) 20 gm DAILY PRN PO CONSTIPATION; Start 01/06/17 at 11:30 Levothyroxine Sodium (Synthroid) 112 mcg DAILY@06 PO Last administered on 06:30; Admin Dose 112 MCG; Start 01/07/17 at 06:00 Lisinopril (Zestril) 2.5 mg DAILY PO ; Start 01/07/17 at 09:00 Magnesium Hydroxide (Milk Of Mag) 30 ml DAILY PRN PO CONSTIPATION; Start at 11:30 Polyethylene Glycol (Miralax) 17 gm DAILY PO Last administered on 01/07/17 08: 24; Admin Dose 17 GM; Start 01/07/17 at 09:00 Potassium Chloride (Klor-Con 20) 40 meq DAILY PO Last administered on 10:11; Admin Dose 40 MEQ; Start 01/07/17 at 09:00 Senna (Senokot) 2 tab HS PO Last administered on 01/08/17 21:31; Admin Dose 2 TAB; Start 01/06/17 at 21:00 Miscellaneous Information 1 ea NOTE XX ; Start 01/06/17 at 12:00 Glucose (Glutose) 15 gm Q15M PRN PO DECREASED GLUCOSE; Start 01/06/17 at 12:00 Glucose (Glutose) 22.5 gm Q15M PRN PO DECREASED GLUCOSE; Start 01/06/17 at 12: 00 Dextrose (D50w Syringe) 25 ml Q15M PRN IV DECREASED GLUCOSE; Start 01/06/17 at 12:00 Dextrose (D50w Syringe) 50 ml Q15M PRN IV DECREASED GLUCOSE; Start 01/06/17 at 12:00 Glucagon (Glucagen) 1 mg Q15M PRN IM DECREASED GLUCOSE; Start 01/06/17 at 12:00 Glucose (Glutose) 15 gm Q15M PRN BUCCAL DECREASED GLUCOSE Last administered on 01/09/17 08:14; Admin Dose 15 GM; Start 01/06/17 at 12:00 Insulin Glargine (Lantus) 20 unit DAILY@20 SC ; Start 01/09/17 at 20:00 Assessment/Plan Chief Complaint/Hosp Course Assessment 1. Severe obstructive and restrictive lung disease on recent pulmonary function testing. Significantly diminished DLCO. Patient status post hypoxemic respiratory failure. Currently not O2 dependent. 2. Recent non-ST elevation SD. Pending possible coronary artery bypass graft surgery. 3. Significant deconditioning. Plan 1. Continue cardiac recommendations 2. Continue bronchodilators as needed 3. Will discuss with thoracic surgery. Patient remains at moderate risk for cardiothoracic surgery given her poor performance status and pulmonary function testing. Severity of coronary artery disease may outweigh the risks of cardiac surgery in this patient with significant chronic lung disease. Risks and benefits need to be discussed with patient. Problems: STEFANI GONZALES MD, [facility] Jan 09, 2017 14:55
--- NOTE | 2017-01-09 15:17 | EN ---
Date/Time of Note Date/Time of Note DATE: 01/09/17 TIME: 15:13 Event Note Medicine Medicine Event Note Discussion with staff. Concern for possible anterior tracheal mass below the vocal cords. This may require investigation prior to coronary artery bypass graft surgery. Discuss with thoracic surgery explained full PFTs and consent for tracheal mass. Surgery will be deferred for now. Will require workup of tracheal mass with bronchoscopy if patient is agreeable. STEFANI GONZALES MD, [facility] Jan 09, 2017 15:17
[2017-01-09] MEDS ORDERED: INSULIN GLARGINE [LANtus] 3 ML PEN SC SCH (20:00)
[2017-01-09] MEDS: ATORVASTATIN 20 MG TAB PO SCH (20:17)
[2017-01-09] MEDS: SENNA TAB PO SCH (20:18)
[2017-01-09 21:20] VITALS: BP 97/44; RESP 20
[2017-01-10] MEDS: ACCU-CHEK XX SCH ×2 (01:02)
[2017-01-10] MEDS ORDERED: ACCU-CHEK XX SCH (02:00)
[2017-01-10 02:09] VITALS: BP 100/54; RESP 19
[2017-01-10] MEDS: LEVOTHYROXINE 112 MCG TAB PO SCH (05:32)
[2017-01-10 06:48] LABS: CALCIUM 9.3 mg/dl (8.4-10.2); CREATININE 0.55 mg/dl (0.44-1.00); POTASSIUM 4.5 mmol/L (3.5-5.1)
[2017-01-10] MEDS: GLUCOSE GEL 15 GRAM TUBE BUCCAL PRN (07:07)
[2017-01-10] MEDS: INSULIN ASPART [NOVOLOG] 3 ML PEN SC SCH ×7 (07:35→20:13)
[2017-01-10] MEDS: ALBUTEROL/IPRATROPIUM (NEB) 3 ML AMP HHN SCH (08:34)
[2017-01-10] MEDS: DULOXETINE 20 MG CAP DR PO SCH (08:47)
[2017-01-10] MEDS: POTASSIUM CHLORIDE (SR) 20 MEQ TAB PO SCH (08:48)
[2017-01-10] MEDS: ASPIRIN (EC) 81 MG TAB PO SCH (08:48)
[2017-01-10] MEDS: POLYETHYLENE GLYCOL 17 GM PACKET PO SCH (08:48)
[2017-01-10] MEDS: GABAPENTIN 300 MG CAP PO SCH ×3 (08:49→20:14)
[2017-01-10] MEDS: FAMOTIDINE 20 MG TAB PO SCH ×2 (08:49→20:14)
[2017-01-10 08:52] VITALS: BP 116/53; RESP 18
[2017-01-10] MEDS: LISINOPRIL 5 MG TAB PO SCH (08:52)
[2017-01-10] MEDS: HEPARIN 5,000 UNIT/0.5 ML VIAL SC SCH ×2 (08:56→20:01)
--- NOTE | 2017-01-10 11:04 | CONS ---
Date/Time of Note Date/Time of Note DATE: 01/10/17 TIME: 10:58 Assessment/Plan Assessment/Plan Additional Assessment/Plan Assessment and recommendations; 1. Patient admitted for acute MD with significant clinical improvement. 2. Underlying cardiomyopathy. 3. History of diabetes, hypo-thyroidism and hypertension. 4. 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 5. Internal carotid artery occlusion. Patient scheduled for CABG surgery early next week. Workup of subglottic mass can be done post CABG surgery. Continue current treatment. Consultation Date/Type/Reason Admit Date/Time Jan 06, 2017 at 10:49 Initial Consult Date Type of Consultation: Pulmonary Referring Provider: TAD HIGGINS NP 24 HR Interval Summary Free Text/Dictation Patient condition is stable. Denies any further chest pain, denies any shortness of breath, dysphagia, hoarseness. General exam; middle-aged woman, awake and alert. Currently in no distress. Exam/Review of Systems Vital Signs Vitals Vital Signs Date Time Temp Pulse Resp B/P Pulse Ox O2 Delivery O2 Flow Rate FiO2 01/10/17 08:52 97.8 87 18 116/53 99 01/10/17 08:35 21 01/06/17 16:39 Room Air Intake and Output 01/09/17 01/09/17 01/10/17 15:00 23:00 07:00 Intake Total 960 ml 800 ml Balance 960 ml 800 ml Exam HEENT exam; supple neck, no JVD. No lymphadenopathy. Midline trachea. No thyromegaly. Patient is edentulous. Pupils are midsize and reactive to light bilaterally. Chest exam; clear to auscultation. S1-S2 audible, no murmurs. Regular rhythm. Abdomen exam; soft, nontender. No organomegaly. Bowel sounds audible. Extremity exam; no peripheral edema. No clubbing. Pulses 1+ bilaterally. 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 Results Result Diagram: 01/09/17 0502 01/10/17 0523 Results 24 hrs Laboratory Tests Test 01/09/17 12:24 01/09/17 17:26 01/09/17 20:15 01/10/17 05:23 Bedside Glucose 399 H 257 H 147 Sodium Level 144 Potassium Level 4.5 Chloride Level 101 Carbon Dioxide Level 31 Anion Gap 17 H Blood Urea Nitrogen 9 Creatinine 0.55 Glucose Level 41 *L Calcium Level 9.3 Test 01/10/17 07:05 01/10/17 07:26 01/10/17 07:46 Bedside Glucose 66 L 87 162 Medications Medications Current Medications Ondansetron HCl (Zofran Inj) 4 mg Q6H PRN IV NAUSEA AND/OR VOMITING; Start at 11:30 Acetaminophen (Tylenol Tab) 650 mg Q6H PRN PO PAIN LEVEL 1-3 OR FEVER; Start at 11:30 Acetaminophen (Tylenol Supp) 650 mg Q6H PRN [place] PAIN LEVEL 1-3 OR FEVER; Start 01/06/17 at 11:30 Morphine Sulfate (morphine) 2 mg Q4H PRN IV SEVERE PAIN LEVEL 7-10; Start 01/06 at 11:30 Famotidine (Pepcid) 20 mg Q12 PO Last administered on 01/10/17 08:49; Admin Dose 20 MG; Start 01/06/17 at 21:00 Heparin Sodium (Porcine) (Heparin (5000 Units/0.5 ml)) 5,000 unit Q12 SC Last administered on 01/10/17 08:56; Admin Dose 5,000 UNIT; Start 01/06/17 at 21:00 Alendronate Sodium (Fosamax) 70 mg Q7D PO Last administered on 01/06/17 14:00 ; Admin Dose 70 MG; Start 01/06/17 at 14:00 Aspirin (Halfprin) 81 mg DAILY PO Last administered on 01/10/17 08:48; Admin Dose 81 MG; Start 01/07/17 at 09:00 Atorvastatin Calcium (Lipitor) 20 mg HS PO Last administered on 01/09/17 20:17 ; Admin Dose 20 MG; Start 01/06/17 at 21:00 Duloxetine HCl (Cymbalta) 20 mg DAILY PO Last administered on 01/10/17 08:47; Admin Dose 20 MG; Start 01/07/17 at 09:00 Gabapentin (Neurontin) 300 mg TID PO Last administered on 01/10/17 08:49; Admin Dose 300 MG; Start 01/06/17 at 13:00 Metoprolol Tartrate (Lopressor) 12.5 mg BID PO ; Start 01/06/17 at 21:00; Status Future Hold Ticagrelor (Brilinta) 90 mg BID PO Last administered on 01/09/17 10:09; Admin Dose 90 MG; Start 01/06/17 at 21:00; Status Future Hold Diagnostic Test (Pha) (Accu-Chek) 1 ea 02 XX ; Start 01/07/17 at 02:00 Diagnostic Test (Pha) (Accu-Chek) 1 ea 02 XX ; Start 01/07/17 at 02:00 Furosemide (Lasix) 20 mg DAILY PO ; Start 01/07/17 at 09:00; Status Future Hold Bisacodyl (Dulcolax Supp) 10 mg DAILY PRN [place] CONSTIPATION; Start 01/06/17 at 11 :30 Guaifenesin (Robitussin Liquid Cup) 100 mg Q6H PRN PO COUGH Last administered on 01/08/17 07:54; Admin Dose 100 MG; Start 01/06/17 at 11:30 Lactulose (Enulose) 20 gm DAILY PRN PO CONSTIPATION; Start 01/06/17 at 11:30 Levothyroxine Sodium (Synthroid) 112 mcg DAILY@06 PO Last administered on 05:32; Admin Dose 112 MCG; Start 01/07/17 at 06:00 Lisinopril (Zestril) 2.5 mg DAILY PO ; Start 01/07/17 at 09:00 Magnesium Hydroxide (Milk Of Mag) 30 ml DAILY PRN PO CONSTIPATION; Start at 11:30 Polyethylene Glycol (Miralax) 17 gm DAILY PO Last administered on 01/07/17 08: 24; Admin Dose 17 GM; Start 01/07/17 at 09:00 Potassium Chloride (Klor-Con 20) 40 meq DAILY PO Last administered on 08:48; Admin Dose 40 MEQ; Start 01/07/17 at 09:00 Senna (Senokot) 2 tab HS PO Last administered on 01/09/17 20:18; Admin Dose 2 TAB; Start 01/06/17 at 21:00 Miscellaneous Information 1 ea NOTE XX ; Start 01/06/17 at 12:00 Glucose (Glutose) 15 gm Q15M PRN PO DECREASED GLUCOSE; Start 01/06/17 at 12:00 Glucose (Glutose) 22.5 gm Q15M PRN PO DECREASED GLUCOSE; Start 01/06/17 at 12: 00 Dextrose (D50w Syringe) 25 ml Q15M PRN IV DECREASED GLUCOSE; Start 01/06/17 at 12:00 Dextrose (D50w Syringe) 50 ml Q15M PRN IV DECREASED GLUCOSE; Start 01/06/17 at 12:00 Glucagon (Glucagen) 1 mg Q15M PRN IM DECREASED GLUCOSE; Start 01/06/17 at 12:00 Glucose (Glutose) 15 gm Q15M PRN BUCCAL DECREASED GLUCOSE Last administered on 01/10/17 07:07; Admin Dose 15 GM; Start 01/06/17 at 12:00 Insulin Glargine (Lantus) 15 unit DAILY@20 SC ; Start 01/10/17 at 20:00 MARY MONTEMAYOR Jan 10, 2017 11:04
[2017-01-10] MEDS ORDERED: ALBUTEROL/IPRATROPIUM (NEB) 3 ML AMP HHN PRN (11:30)
--- NOTE | 2017-01-10 12:12 | CONS ---
Date/Time of Note Date/Time of Note DATE: 01/10/17 TIME: 12:10 Assessment/Plan Assessment/Plan Additional Assessment/Plan 1.NSTEMI-peak trop>60 Now dowtrended significantly s/p LHC with patent RCA stents and high grade disease of LAD/LCX with small caliber vessels and recc for CABG. Still ongoing surgical eval and question date of possible surgery - SURGERY PLANNED THURSDAY 2.cardiomyopathy-LVEF 40-45 BY OSH echo. 25% by echo read here - will monitor - considerr ICD at 3-6 months depending on CABG response 3.Hypotension-orthostatics today with transfer to med-surg-? overdiuresis- currently improved 4.resp failure s/p extubation requiring PRN BIPAP which has now improved and not requiring further at this time 5.anemia 6. AMS/encephalopathy 7. PNA-ongoing by chest CT 8. COPD 9. Hypothyroid 10.DM-labile BS 11.Neck mass? with dysphagia 12. carotid stenosis Consultation Date/Type/Reason Admit Date/Time Jan 06, 2017 at 10:49 Initial Consult Date Type of Consultation: Pulmonary Referring Provider: TAD HIGGINS NP 24 HR Interval Summary Free Text/Dictation NO acute cange - lasix/K+ help - awaiting surgical input ROS: No fever, no chills, no nausea, no vomiting, no diarrhea/constipation No recent weight changes No chest pain, no PND, no orthopnea No dizziness, blurred vision No thirst, no heat or cold intolerance Exam/Review of Systems Vital Signs Vitals Vital Signs Date Time Temp Pulse Resp B/P Pulse Ox O2 Delivery O2 Flow Rate FiO2 01/10/17 08:52 97.8 87 18 116/53 99 01/10/17 08:35 21 01/06/17 16:39 Room Air Intake and Output 01/09/17 01/09/17 01/10/17 15:00 23:00 07:00 Intake Total 960 ml 800 ml Balance 960 ml 800 ml Exam General: WN/WD/NAD, AOx 3 HEENT: Unicetric/atraumatic/EOMI (follow commands) NECK: JVD elevated, no thyromegaly Lymph: no lymphadenopathy HEART: regular with no S3, II/ systolic murmur at apex, PMI L LUNGS: Coarse sounds ABD: soft, NT, ND, +BS : Intact Neuro: non focal SKIN: chronic changes EXT: trace edema Results Result Diagram: 01/09/17 0502 01/10/17 0523 Results 24 hrs Laboratory Tests Test 01/09/17 12:24 01/09/17 17:26 01/09/17 20:15 01/10/17 05:23 Bedside Glucose 399 H 257 H 147 Sodium Level 144 Potassium Level 4.5 Chloride Level 101 Carbon Dioxide Level 31 Anion Gap 17 H Blood Urea Nitrogen 9 Creatinine 0.55 Glucose Level 41 *L Calcium Level 9.3 Test 01/10/17 07:05 01/10/17 07:26 01/10/17 07:46 01/10/17 11:37 Bedside Glucose 66 L 87 162 383 H Medications Medications Current Medications Ondansetron HCl (Zofran Inj) 4 mg Q6H PRN IV NAUSEA AND/OR VOMITING; Start at 11:30 Acetaminophen (Tylenol Tab) 650 mg Q6H PRN PO PAIN LEVEL 1-3 OR FEVER; Start at 11:30 Acetaminophen (Tylenol Supp) 650 mg Q6H PRN [place] PAIN LEVEL 1-3 OR FEVER; Start 01/06/17 at 11:30 Morphine Sulfate (morphine) 2 mg Q4H PRN IV SEVERE PAIN LEVEL 7-10; Start 01/06 at 11:30 Famotidine (Pepcid) 20 mg Q12 PO Last administered on 01/10/17 08:49; Admin Dose 20 MG; Start 01/06/17 at 21:00 Heparin Sodium (Porcine) (Heparin (5000 Units/0.5 ml)) 5,000 unit Q12 SC Last administered on 01/10/17 08:56; Admin Dose 5,000 UNIT; Start 01/06/17 at 21:00 Alendronate Sodium (Fosamax) 70 mg Q7D PO Last administered on 01/06/17 14:00 ; Admin Dose 70 MG; Start 01/06/17 at 14:00 Aspirin (Halfprin) 81 mg DAILY PO Last administered on 01/10/17 08:48; Admin Dose 81 MG; Start 01/07/17 at 09:00 Atorvastatin Calcium (Lipitor) 20 mg HS PO Last administered on 01/09/17 20:17 ; Admin Dose 20 MG; Start 01/06/17 at 21:00 Duloxetine HCl (Cymbalta) 20 mg DAILY PO Last administered on 01/10/17 08:47; Admin Dose 20 MG; Start 01/07/17 at 09:00 Gabapentin (Neurontin) 300 mg TID PO Last administered on 01/10/17 08:49; Admin Dose 300 MG; Start 01/06/17 at 13:00 Metoprolol Tartrate (Lopressor) 12.5 mg BID PO ; Start 01/06/17 at 21:00; Status Future Hold Ticagrelor (Brilinta) 90 mg BID PO Last administered on 01/09/17 10:09; Admin Dose 90 MG; Start 01/06/17 at 21:00; Status Future Hold Diagnostic Test (Pha) (Accu-Chek) 1 ea 02 XX ; Start 01/07/17 at 02:00 Diagnostic Test (Pha) (Accu-Chek) 1 ea 02 XX ; Start 01/07/17 at 02:00 Furosemide (Lasix) 20 mg DAILY PO ; Start 01/07/17 at 09:00; Status Future Hold Bisacodyl (Dulcolax Supp) 10 mg DAILY PRN [place] CONSTIPATION; Start 01/06/17 at 11 :30 Guaifenesin (Robitussin Liquid Cup) 100 mg Q6H PRN PO COUGH Last administered on 01/08/17 07:54; Admin Dose 100 MG; Start 01/06/17 at 11:30 Lactulose (Enulose) 20 gm DAILY PRN PO CONSTIPATION; Start 01/06/17 at 11:30 Levothyroxine Sodium (Synthroid) 112 mcg DAILY@06 PO Last administered on 05:32; Admin Dose 112 MCG; Start 01/07/17 at 06:00 Lisinopril (Zestril) 2.5 mg DAILY PO ; Start 01/07/17 at 09:00 Magnesium Hydroxide (Milk Of Mag) 30 ml DAILY PRN PO CONSTIPATION; Start at 11:30 Polyethylene Glycol (Miralax) 17 gm DAILY PO Last administered on 01/07/17 08: 24; Admin Dose 17 GM; Start 01/07/17 at 09:00 Senna (Senokot) 2 tab HS PO Last administered on 01/09/17 20:18; Admin Dose 2 TAB; Start 01/06/17 at 21:00 Miscellaneous Information 1 ea NOTE XX ; Start 01/06/17 at 12:00 Glucose (Glutose) 15 gm Q15M PRN PO DECREASED GLUCOSE; Start 01/06/17 at 12:00 Glucose (Glutose) 22.5 gm Q15M PRN PO DECREASED GLUCOSE; Start 01/06/17 at 12: 00 Dextrose (D50w Syringe) 25 ml Q15M PRN IV DECREASED GLUCOSE; Start 01/06/17 at 12:00 Dextrose (D50w Syringe) 50 ml Q15M PRN IV DECREASED GLUCOSE; Start 01/06/17 at 12:00 Glucagon (Glucagen) 1 mg Q15M PRN IM DECREASED GLUCOSE; Start 01/06/17 at 12:00 Glucose (Glutose) 15 gm Q15M PRN BUCCAL DECREASED GLUCOSE Last administered on 01/10/17t 07:07; Admin Dose 15 GM; Start 01/06/17 at 12:00 Insulin Glargine (Lantus) 15 unit DAILY@20 SC ; Start 01/10/17 at 20:00 ARTIE MARADIAGA MD Jan 10, 2017 12:12
--- NOTE | 2017-01-10 12:47 | PN ---
Date/Time of Note Date/Time of Note DATE: 01/10/17 TIME: 12:47 Assessment/Plan Lines/Catheters Urinary Cath still in place: No Assessment/Plan Assessment/Plan 1. Orthostatic hypotension. Resolved. -BB/Lasix on hold. 2. Non-ST elevation [place] with multivessel coronary artery disease on coronary angiogram. -Tentative plan for coronary artery bypass graft surgery on Thursday. -Continue cardiac recommendations: JAXON beta-enmanuel as tolerated,aspirin and Brilinta 3. Ischemic cardiomyopathy with last known ejection fraction 25%. -Continue aspirin/Brilinta/antihypertensives as tolerated. -Follow-up with cardiology recommendation. 4. Severe obstructive and restrictive pulmonary disease. Status post PFT -Continue bronchodilators. -Counseled on smoking cessation. -Follow-up with Pulmonary recs prior CABG. 5. Status post respiratory failure and pneumonia. Resolved 6. Dysphagia/Dysphasia with possible Underlying neck mass.MRI neck with Approximately 1 cm enhancing lesion in the posterior left subglottic larynx with mild narrowing of the airway. -Spoke with and recommended bronchoscopy with possible biopsy of the lesion as its in the trachea. This was discussed with and we will follow recs. - Continue with ST eval and diet recs.Patient is tolerating honey thick/pured diet. 7. Type II diabetes mellitus.Again with hypoglycemic episodes. -Patient with poor intake. At this time, we don't think she needs premeal insulin as this drops her BS consistently. Will also adjust PM Lantus dose to 20 units. Continue Accu-Cheks/ ISS 8. Hypothyroidism. -On Synthroid. 8. Chronic anemia. H&H stable. Will monitor. 9. Significant deconditioning Continue with physical therapy as tolerated. DVT prophylaxis: Heparin PUD prophylaxis: Pepcid. Plan: As per CT surgery, plan for CABG on Thursday. Given patient's medical condition, patient is at very high risk for any untoward medical events for high risk CABG surgery. Please follow up with cardiology/pulmonary recs prior to any surgical intervention for risk stratification. Exam/Review of Systems Vital Signs Vitals Vital Signs Date Time Temp Pulse Resp B/P Pulse Ox O2 Delivery O2 Flow Rate FiO2 01/10/17 08:52 97.8 87 18 116/53 99 01/10/17 08:35 21 01/06/17 16:39 Room Air Intake and Output 01/09/17 01/09/17 01/10/17 15:00 23:00 07:00 Intake Total 960 ml 800 ml Balance 960 ml 800 ml Results Result Diagram: 01/09/17 0502 01/10/17 0523 Results 24 hrs Laboratory Tests Test 01/09/17 17:26 01/09/17 20:15 01/10/17 05:23 01/10/17 07:05 Bedside Glucose 257 H 147 66 L Sodium Level 144 Potassium Level 4.5 Chloride Level 101 Carbon Dioxide Level 31 Anion Gap 17 H Blood Urea Nitrogen 9 Creatinine 0.55 Glucose Level 41 *L Calcium Level 9.3 Test 01/10/17 07:26 01/10/17 07:46 01/10/17 11:37 Bedside Glucose 87 162 383 H Medications Medications Current Medications Ondansetron HCl (Zofran Inj) 4 mg Q6H PRN IV NAUSEA AND/OR VOMITING; Start at 11:30 Acetaminophen (Tylenol Tab) 650 mg Q6H PRN PO PAIN LEVEL 1-3 OR FEVER; Start at 11:30 Acetaminophen (Tylenol Supp) 650 mg Q6H PRN [place] PAIN LEVEL 1-3 OR FEVER; Start 01/06/17 at 11:30 Morphine Sulfate (morphine) 2 mg Q4H PRN IV SEVERE PAIN LEVEL 7-10; Start 01/06 at 11:30 Famotidine (Pepcid) 20 mg Q12 PO Last administered on 01/10/17 08:49; Admin Dose 20 MG; Start 01/06/17 at 21:00 Heparin Sodium (Porcine) (Heparin (5000 Units/0.5 ml)) 5,000 unit Q12 SC Last administered on 01/10/17 08:56; Admin Dose 5,000 UNIT; Start 01/06/17 at 21:00 Alendronate Sodium (Fosamax) 70 mg Q7D PO Last administered on 01/06/17 14:00 ; Admin Dose 70 MG; Start 01/06/17 at 14:00 Aspirin (Halfprin) 81 mg DAILY PO Last administered on 01/10/17 08:48; Admin Dose 81 MG; Start 01/07/17 at 09:00 Atorvastatin Calcium (Lipitor) 20 mg HS PO Last administered on 01/09/17 20:17 ; Admin Dose 20 MG; Start 01/06/17 at 21:00 Duloxetine HCl (Cymbalta) 20 mg DAILY PO Last administered on 01/10/17 08:47; Admin Dose 20 MG; Start 01/07/17 at 09:00 Gabapentin (Neurontin) 300 mg TID PO Last administered on 01/10/17 12:27; Admin Dose 300 MG; Start 01/06/17 at 13:00 Metoprolol Tartrate (Lopressor) 12.5 mg BID PO ; Start 01/06/17 at 21:00; Status Future Hold Ticagrelor (Brilinta) 90 mg BID PO Last administered on 01/09/17 10:09; Admin Dose 90 MG; Start 01/06/17 at 21:00; Status Future Hold Diagnostic Test (Pha) (Accu-Chek) 1 ea 02 XX ; Start 01/07/17 at 02:00 Diagnostic Test (Pha) (Accu-Chek) 1 ea 02 XX ; Start 01/07/17 at 02:00 Furosemide (Lasix) 20 mg DAILY PO ; Start 01/07/17 at 09:00; Status Future Hold Bisacodyl (Dulcolax Supp) 10 mg DAILY PRN [place] CONSTIPATION; Start 01/06/17 at 11 :30 Guaifenesin (Robitussin Liquid Cup) 100 mg Q6H PRN PO COUGH Last administered on 01/08/17 07:54; Admin Dose 100 MG; Start 01/06/17 at 11:30 Lactulose (Enulose) 20 gm DAILY PRN PO CONSTIPATION; Start 01/06/17 at 11:30 Levothyroxine Sodium (Synthroid) 112 mcg DAILY@06 PO Last administered on 05:32; Admin Dose 112 MCG; Start 01/07/17 at 06:00 Lisinopril (Zestril) 2.5 mg DAILY PO ; Start 01/07/17 at 09:00 Magnesium Hydroxide (Milk Of Mag) 30 ml DAILY PRN PO CONSTIPATION; Start at 11:30 Polyethylene Glycol (Miralax) 17 gm DAILY PO Last administered on 01/07/17 08: 24; Admin Dose 17 GM; Start 01/07/17 at 09:00 Senna (Senokot) 2 tab HS PO Last administered on 01/09/17 20:18; Admin Dose 2 TAB; Start 01/06/17 at 21:00 Miscellaneous Information 1 ea NOTE XX ; Start 01/06/17 at 12:00 Glucose (Glutose) 15 gm Q15M PRN PO DECREASED GLUCOSE; Start 01/06/17 at 12:00 Glucose (Glutose) 22.5 gm Q15M PRN PO DECREASED GLUCOSE; Start 01/06/17 at 12: 00 Dextrose (D50w Syringe) 25 ml Q15M PRN IV DECREASED GLUCOSE; Start 01/06/17 at 12:00 Dextrose (D50w Syringe) 50 ml Q15M PRN IV DECREASED GLUCOSE; Start 01/06/17 at 12:00 Glucagon (Glucagen) 1 mg Q15M PRN IM DECREASED GLUCOSE; Start 01/06/17 at 12:00 Glucose (Glutose) 15 gm Q15M PRN BUCCAL DECREASED GLUCOSE Last administered on 01/10/17 07:07; Admin Dose 15 GM; Start 01/06/17 at 12:00 Insulin Glargine (Lantus) 15 unit DAILY@20 SC ; Start 01/10/17 at 20:00 ROBEL PETTY MD Jan 10, 2017 12:47
--- NOTE | 2017-01-10 13:49 | PN ---
Date/Time of Note Date/Time of Note DATE: 01/10/17 TIME: 13:45 Assessment/Plan VTE Prophylaxis VTE Prophylaxis Intervention: SCD's Lines/Catheters Urinary Cath still in place: No Assessment/Plan Assessment/Plan 56 yo F with poorly controlled DM2 admitted for NSTEMI in setting DKA. Found to have multivessel CAD. Awaiting CABG. 1. Orthostatic hypotension. Resolved. -BB/Lasix on hold. 2. Non-ST elevation [place] with multivessel coronary artery disease on coronary angiogram. -Tentative plan for coronary artery bypass graft surgery on Thursday. -Continue cardiac recommendations: JAXON, beta-enmanuel as tolerated,aspirin and Brilinta 3. Ischemic cardiomyopathy with last known ejection fraction 25%. -Continue aspirin/Brilinta/antihypertensives as tolerated. -may need ICD if EF does not improve in the coming months 4. Severe obstructive and restrictive pulmonary disease. Status post PFT -Continue bronchodilators. -Counseled on smoking cessation. -Follow-up with Pulmonary recs prior CABG. 5. Status post respiratory failure and pneumonia. Resolved 6. Dysphagia/Dysphasia with possible Underlying neck mass.MRI neck with Approximately 1 cm enhancing lesion in the posterior left subglottic larynx with mild narrowing of the airway. -Spoke with and recommended bronchoscopy with possible biopsy of the lesion as its in the trachea. This was discussed with and we will follow recs. - Continue with ST eval and diet recs.Patient is tolerating honey thick/pured diet. 7. Type II diabetes mellitus.Again with hypoglycemic episodes. -cut lantus dose in half. cont SSI 8. Hypothyroidism. -On Synthroid. 8. Chronic anemia. H&H stable. Will monitor. 9. Significant deconditioning Continue with physical therapy as tolerated. DVT prophylaxis: Heparin PUD prophylaxis: Pepcid. Plan: As per CT surgery, plan for CABG on Thursday. Given patient's medical condition, patient is at very high risk for any untoward medical events for high risk CABG surgery. Please follow up with cardiology/pulmonary recs prior to any surgical intervention for risk stratification. Subjective 24 Hr Interval Summary Free Text/Dictation Pt with low BG this AM, hyperglycemia following PO glucose Exam/Review of Systems Vital Signs Vitals Vital Signs Date Time Temp Pulse Resp B/P Pulse Ox O2 Delivery O2 Flow Rate FiO2 01/10/17 08:52 97.8 87 18 116/53 99 01/10/17 08:35 21 01/06/17 16:39 Room Air Intake and Output 01/09/17 01/09/17 01/10/17 15:00 23:00 07:00 Intake Total 960 ml 800 ml Balance 960 ml 800 ml Exam nad, sitting up in bed, wearing glasses no mrg lung clear abd soft no rashes Results Result Diagram: 01/09/17 0502 01/10/17 0523 Results 24 hrs Laboratory Tests Test 01/09/17 17:26 01/09/17 20:15 01/10/17 05:23 01/10/17 07:05 Bedside Glucose 257 H 147 66 L Sodium Level 144 Potassium Level 4.5 Chloride Level 101 Carbon Dioxide Level 31 Anion Gap 17 H Blood Urea Nitrogen 9 Creatinine 0.55 Glucose Level 41 *L Calcium Level 9.3 Test 01/10/17 07:26 01/10/17 07:46 01/10/17 11:37 Bedside Glucose 87 162 383 H Medications Medications Current Medications Ondansetron HCl (Zofran Inj) 4 mg Q6H PRN IV NAUSEA AND/OR VOMITING; Start at 11:30 Acetaminophen (Tylenol Tab) 650 mg Q6H PRN PO PAIN LEVEL 1-3 OR FEVER; Start at 11:30 Acetaminophen (Tylenol Supp) 650 mg Q6H PRN [place] PAIN LEVEL 1-3 OR FEVER; Start 01/06/17 at 11:30 Morphine Sulfate (morphine) 2 mg Q4H PRN IV SEVERE PAIN LEVEL 7-10; Start 01/06 at 11:30 Famotidine (Pepcid) 20 mg Q12 PO Last administered on 01/10/17 08:49; Admin Dose 20 MG; Start 01/06/17 at 21:00 Heparin Sodium (Porcine) (Heparin (5000 Units/0.5 ml)) 5,000 unit Q12 SC Last administered on 01/10/17 08:56; Admin Dose 5,000 UNIT; Start 01/06/17 at 21:00 Alendronate Sodium (Fosamax) 70 mg Q7D PO Last administered on 01/06/17 14:00 ; Admin Dose 70 MG; Start 01/06/17 at 14:00 Aspirin (Halfprin) 81 mg DAILY PO Last administered on 01/10/17 08:48; Admin Dose 81 MG; Start 01/07/17 at 09:00 Atorvastatin Calcium (Lipitor) 20 mg HS PO Last administered on 01/09/17 20:17 ; Admin Dose 20 MG; Start 01/06/17 at 21:00 Duloxetine HCl (Cymbalta) 20 mg DAILY PO Last administered on 01/10/17 08:47; Admin Dose 20 MG; Start 01/07/17 at 09:00 Gabapentin (Neurontin) 300 mg TID PO Last administered on 01/10/17 12:27; Admin Dose 300 MG; Start 01/06/17 at 13:00 Metoprolol Tartrate (Lopressor) 12.5 mg BID PO ; Start 01/06/17 at 21:00; Status Future Hold Ticagrelor (Brilinta) 90 mg BID PO Last administered on 01/09/17 10:09; Admin Dose 90 MG; Start 01/06/17 at 21:00; Status Future Hold Diagnostic Test (Pha) (Accu-Chek) 1 ea 02 XX ; Start 01/07/17 at 02:00 Diagnostic Test (Pha) (Accu-Chek) 1 ea 02 XX ; Start 01/07/17 at 02:00 Furosemide (Lasix) 20 mg DAILY PO ; Start 01/07/17 at 09:00; Status Future Hold Bisacodyl (Dulcolax Supp) 10 mg DAILY PRN [place] CONSTIPATION; Start 01/06/17 at 11 :30 Guaifenesin (Robitussin Liquid Cup) 100 mg Q6H PRN PO COUGH Last administered on 01/08/17 07:54; Admin Dose 100 MG; Start 01/06/17 at 11:30 Lactulose (Enulose) 20 gm DAILY PRN PO CONSTIPATION; Start 01/06/17 at 11:30 Levothyroxine Sodium (Synthroid) 112 mcg DAILY@06 PO Last administered on 05:32; Admin Dose 112 MCG; Start 01/07/17 at 06:00 Lisinopril (Zestril) 2.5 mg DAILY PO ; Start 01/07/17 at 09:00 Magnesium Hydroxide (Milk Of Mag) 30 ml DAILY PRN PO CONSTIPATION; Start at 11:30 Polyethylene Glycol (Miralax) 17 gm DAILY PO Last administered on 01/07/17 08: 24; Admin Dose 17 GM; Start 01/07/17 at 09:00 Senna (Senokot) 2 tab HS PO Last administered on 01/09/17 20:18; Admin Dose 2 TAB; Start 01/06/17 at 21:00 Miscellaneous Information 1 ea NOTE XX ; Start 01/06/17 at 12:00 Glucose (Glutose) 15 gm Q15M PRN PO DECREASED GLUCOSE; Start 01/06/17 at 12:00 Glucose (Glutose) 22.5 gm Q15M PRN PO DECREASED GLUCOSE; Start 01/06/17 at 12: 00 Dextrose (D50w Syringe) 25 ml Q15M PRN IV DECREASED GLUCOSE; Start 01/06/17 at 12:00 Dextrose (D50w Syringe) 50 ml Q15M PRN IV DECREASED GLUCOSE; Start 01/06/17 at 12:00 Glucagon (Glucagen) 1 mg Q15M PRN IM DECREASED GLUCOSE; Start 01/06/17 at 12:00 Glucose (Glutose) 15 gm Q15M PRN BUCCAL DECREASED GLUCOSE Last administered on 01/10/17 07:07; Admin Dose 15 GM; Start 01/06/17 at 12:00 Insulin Glargine (Lantus) 15 unit DAILY@20 SC ; Start 01/10/17 at 20:00 ROBEL PETTY MD Jan 10, 2017 13:49 ROBEL PETTY MD Jan 10, 2017 13:49
[2017-01-10 17:02] VITALS: BP 119/58; RESP 20
--- NOTE | 2017-01-10 19:47 | PN ---
Date/Time of Note Date/Time of Note DATE: 01/10/17 TIME: 19:45 Assessment/Plan Lines/Catheters [facility] in Place (from [facility]): No Assessment/Plan Chief Complaint/Hosp Course Patient with coronary artery disease multiple other medical problem Carotid dupplex Occlusion of the right internal carotid artery just beyond its origin due to large plaque burden as seen on the prior MRI. Small plaques involving the visualized portion of the left internal carotid artery without evidence of flow acceleration to suggest a hemodynamically significant stenosis; less than 50% Concern for possible anterior tracheal mass below the vocal cords. This may require investigation prior to coronary artery bypass graft surgery. Plan for coronary artery bypass grafting on Thursday on hold Patient is at very high risk of having surgery secondary to significant comorbidities including carotid occlusion Risks benefits complications alternative therapies explained to the patient Will discuss with Dr. Adames Discussed with Dr. Sanz Problems: Subjective 24 Hr Interval Summary Constitutional: improved Pain Control: mild Exam/Review of Systems Vital Signs Vitals Vital Signs Date Time Temp Pulse Resp B/P Pulse Ox O2 Delivery O2 Flow Rate FiO2 01/10/17 17:02 98.0 61 20 119/58 95 01/10/17 08:35 21 01/06/17 16:39 Room Air Intake and Output 01/09/17 01/09/17 01/10/17 15:00 23:00 07:00 Intake Total 960 ml 800 ml Balance 960 ml 800 ml Exam ENMT: mucosa pink and moist, nl external ears & nose, nl lips & teeth, nl nasal mucosa & septum Neck: non-tender, supple Respiratory: clear to auscultation, normal air movement Cardiovascular: nl pulses, regular rate and rhythm Results Result Diagram: 01/09/17 0502 01/10/17 0523 CHELA ALVARENGA MD Jan 10, 2017 19:47
[2017-01-10 20:00] VITALS: BP_SYST 110; BP_SYST 91; BP_DIAS 44; BP_DIAS 53; PULSE 87; RESP 20
[2017-01-10] MEDS ORDERED: INSULIN GLARGINE [LANtus] 3 ML PEN SC SCH ×2 (20:00)
[2017-01-10 20:01] VITALS: BP 98/53; PULSE 89
[2017-01-10 20:02] VITALS: BP 97/43; PULSE 94
[2017-01-10] MEDS: SENNA TAB PO SCH (20:14)
[2017-01-10] MEDS: ATORVASTATIN 20 MG TAB PO SCH (20:14)
[2017-01-11 02:00] VITALS: BP 95/47; RESP 20
[2017-01-11] MEDS: ACCU-CHEK XX SCH ×2 (02:00)
[2017-01-11] MEDS: LEVOTHYROXINE 112 MCG TAB PO SCH (06:10)
[2017-01-11 08:00] VITALS: BP 103/94; RESP 19
[2017-01-11] MEDS: DULOXETINE 20 MG CAP DR PO SCH (08:47)
[2017-01-11] MEDS: FAMOTIDINE 20 MG TAB PO SCH (08:47)
[2017-01-11] MEDS: GABAPENTIN 300 MG CAP PO SCH ×3 (08:47→21:16)
[2017-01-11] MEDS: POLYETHYLENE GLYCOL 17 GM PACKET PO SCH (08:49)
[2017-01-11] MEDS: LISINOPRIL 5 MG TAB PO SCH (08:49)
[2017-01-11] MEDS: ASPIRIN (EC) 81 MG TAB PO SCH (08:50)
[2017-01-11] MEDS: HEPARIN 5,000 UNIT/0.5 ML VIAL SC SCH ×2 (08:51→21:17)
[2017-01-11] MEDS: INSULIN ASPART [NOVOLOG] 3 ML PEN SC SCH ×7 (08:53→21:36)
--- NOTE | 2017-01-11 10:34 | CONS ---
Date/Time of Note Date/Time of Note DATE: 01/11/17 TIME: 10:34 Consultation Date/Type/Reason Admit Date/Time Jan 06, 2017 at 10:49 Type of Consultation: Pulmonary Referring Provider: TAD HIGGINS NP 24 HR Interval Summary Free Text/Dictation dictated Exam/Review of Systems Vital Signs Vitals Vital Signs Date Time Temp Pulse Resp B/P Pulse Ox O2 Delivery O2 Flow Rate FiO2 01/11/17 08:00 98.5 80 19 103/94 97 01/10/17 08:35 21 Intake and Output 01/10/17 01/10/17 01/11/17 15:00 23:00 07:00 Intake Total 1200 ml 480 ml Balance 1200 ml 480 ml Results Result Diagram: 01/09/17 0502 01/11/17 0322 Results 24 hrs Laboratory Tests Test 01/10/17 11:37 01/10/17 16:44 01/10/17 20:09 01/11/17 03:04 Bedside Glucose 383 H 86 253 H 46 *L Test 01/11/17 03:22 01/11/17 03:31 01/11/17 03:56 01/11/17 04:13 Glucose Level 38 *L Bedside Glucose 39 *L 62 L 110 Test 01/11/17 06:10 01/11/17 07:55 01/11/17 10:24 Bedside Glucose 137 238 H 294 H Medications Medications Current Medications Ondansetron HCl (Zofran Inj) 4 mg Q6H PRN IV NAUSEA AND/OR VOMITING; Start at 11:30 Acetaminophen (Tylenol Tab) 650 mg Q6H PRN PO PAIN LEVEL 1-3 OR FEVER; Start at 11:30 Acetaminophen (Tylenol Supp) 650 mg Q6H PRN [place] PAIN LEVEL 1-3 OR FEVER; Start 01/06/17 at 11:30 Morphine Sulfate (morphine) 2 mg Q4H PRN IV SEVERE PAIN LEVEL 7-10; Start 01/06 at 11:30 Famotidine (Pepcid) 20 mg Q12 PO Last administered on 01/11/17t 08:47; Admin Dose 20 MG; Start 01/06/17 at 21:00 Heparin Sodium (Porcine) (Heparin (5000 Units/0.5 ml)) 5,000 unit Q12 SC Last administered on 01/10/17 08:56; Admin Dose 5,000 UNIT; Start 01/06/17 at 21:00 Alendronate Sodium (Fosamax) 70 mg Q7D PO Last administered on 01/06/17 14:00 ; Admin Dose 70 MG; Start 01/06/17 at 14:00 Aspirin (Halfprin) 81 mg DAILY PO Last administered on 01/11/17 08:50; Admin Dose 81 MG; Start 01/07/17 at 09:00 Atorvastatin Calcium (Lipitor) 20 mg HS PO Last administered on 01/10/17 20:14 ; Admin Dose 20 MG; Start 01/06/17 at 21:00 Duloxetine HCl (Cymbalta) 20 mg DAILY PO Last administered on 01/11/17 08:47; Admin Dose 20 MG; Start 01/07/17 at 09:00 Gabapentin (Neurontin) 300 mg TID PO Last administered on 01/11/17 08:47; Admin Dose 300 MG; Start 01/06/17 at 13:00 Metoprolol Tartrate (Lopressor) 12.5 mg BID PO ; Start 01/06/17 at 21:00; Status Future Hold Ticagrelor (Brilinta) 90 mg BID PO Last administered on 01/09/17 10:09; Admin Dose 90 MG; Start 01/06/17 at 21:00; Status Future Hold Diagnostic Test (Pha) (Accu-Chek) 1 ea 02 XX ; Start 01/07/17 at 02:00 Diagnostic Test (Pha) (Accu-Chek) 1 ea 02 XX ; Start 01/07/17 at 02:00 Furosemide (Lasix) 20 mg DAILY PO ; Start 01/07/17 at 09:00; Status Future Hold Bisacodyl (Dulcolax Supp) 10 mg DAILY PRN [place] CONSTIPATION; Start 01/06/17 at 11 :30 Guaifenesin (Robitussin Liquid Cup) 100 mg Q6H PRN PO COUGH Last administered on 01/08/17 07:54; Admin Dose 100 MG; Start 01/06/17 at 11:30 Lactulose (Enulose) 20 gm DAILY PRN PO CONSTIPATION; Start 01/06/17 at 11:30 Levothyroxine Sodium (Synthroid) 112 mcg DAILY@06 PO Last administered on 06:10; Admin Dose 112 MCG; Start 01/07/17 at 06:00 Lisinopril (Zestril) 2.5 mg DAILY PO ; Start 01/07/17 at 09:00 Magnesium Hydroxide (Milk Of Mag) 30 ml DAILY PRN PO CONSTIPATION; Start at 11:30 Polyethylene Glycol (Miralax) 17 gm DAILY PO Last administered on 01/07/17 08: 24; Admin Dose 17 GM; Start 01/07/17 at 09:00 Senna (Senokot) 2 tab HS PO Last administered on 01/10/17 20:14; Admin Dose 2 TAB; Start 01/06/17 at 21:00 Miscellaneous Information 1 ea NOTE XX ; Start 01/06/17 at 12:00 Glucose (Glutose) 15 gm Q15M PRN PO DECREASED GLUCOSE; Start 01/06/17 at 12:00 Glucose (Glutose) 22.5 gm Q15M PRN PO DECREASED GLUCOSE Last administered on 03:34; Admin Dose 22.5 GM; Start 01/06/17 at 12:00 Dextrose (D50w Syringe) 25 ml Q15M PRN IV DECREASED GLUCOSE; Start 01/06/17 at 12:00 Dextrose (D50w Syringe) 50 ml Q15M PRN IV DECREASED GLUCOSE; Start 01/06/17 at 12:00 Glucagon (Glucagen) 1 mg Q15M PRN IM DECREASED GLUCOSE; Start 01/06/17 at 12:00 Glucose (Glutose) 15 gm Q15M PRN BUCCAL DECREASED GLUCOSE Last administered on 01/10/17 07:07; Admin Dose 15 GM; Start 01/06/17 at 12:00 MARY MONTEMAYOR Jan 11, 2017 10:34
[2017-01-11 14:00] VITALS: BP 95/51; RESP 18
--- NOTE | 2017-01-11 14:48 | PN ---
Date/Time of Note Date/Time of Note DATE: 01/11/17 TIME: 14:47 Assessment/Plan VTE Prophylaxis VTE Prophylaxis Intervention: other Lines/Catheters Central line still needed: No Urinary Cath still in place: No Assessment/Plan Chief Complaint/Hosp Course Patient with coronary artery disease multiple other medical problem Carotid dupplex Occlusion of the right internal carotid artery just beyond its origin due to large plaque burden as seen on the prior MRI. Small plaques involving the visualized portion of the left internal carotid artery without evidence of flow acceleration to suggest a hemodynamically significant stenosis; less than 50% Concern for possible anterior tracheal mass below the vocal cords. This may require investigation prior to coronary artery bypass graft surgery. Plan for coronary artery bypass grafting on Thursday on hold Awaiting ENT Evaluation Patient is at very high risk of having surgery secondary to significant comorbidities including carotid occlusion Risks benefits complications alternative therapies explained to the patient Will discuss with Dr. Adames Discussed with Dr. Sanz Problems: Subjective 24 Hr Interval Summary Gastrointestinal: no complaints Genitourinary: no complaints Musculoskeletal: no complaints Skin: no complaints Neurologic: no complaints Exam/Review of Systems Vital Signs Vitals Vital Signs Date Time Temp Pulse Resp B/P Pulse Ox O2 Delivery O2 Flow Rate FiO2 01/11/17 08:00 98.5 80 19 103/94 97 01/10/17 08:35 21 Intake and Output 01/10/17 01/10/17 01/11/17 15:00 23:00 07:00 Intake Total 1200 ml 480 ml Balance 1200 ml 480 ml Exam Neck: non-tender, supple Respiratory: clear to auscultation, normal air movement Cardiovascular: nl pulses, regular rate and rhythm Gastrointestinal: nl liver, spleen, non-tender, soft Results Result Diagram: 01/09/17 0502 01/11/17 0322 Results 24 hrs Laboratory Tests Test 01/10/17 16:44 01/10/17 20:09 01/11/17 03:04 01/11/17 03:22 Bedside Glucose 86 253 H 46 *L Glucose Level 38 *L Test 01/11/17 03:31 01/11/17 03:56 01/11/17 04:13 01/11/17 06:10 Bedside Glucose 39 *L 62 L 110 137 Test 01/11/17 07:55 01/11/17 10:24 01/11/17 11:57 01/11/17 12:07 Bedside Glucose 238 H 294 H 372 H 419 *H Medications Medications Current Medications Ondansetron HCl (Zofran Inj) 4 mg Q6H PRN IV NAUSEA AND/OR VOMITING; Start at 11:30 Acetaminophen (Tylenol Tab) 650 mg Q6H PRN PO PAIN LEVEL 1-3 OR FEVER; Start at 11:30 Acetaminophen (Tylenol Supp) 650 mg Q6H PRN [place] PAIN LEVEL 1-3 OR FEVER; Start 01/06/17 at 11:30 Morphine Sulfate (morphine) 2 mg Q4H PRN IV SEVERE PAIN LEVEL 7-10; Start 01/06 at 11:30 Famotidine (Pepcid) 20 mg Q12 PO Last administered on 01/11/17 08:47; Admin Dose 20 MG; Start 01/06/17 at 21:00 Heparin Sodium (Porcine) (Heparin (5000 Units/0.5 ml)) 5,000 unit Q12 SC Last administered on 01/10/17 08:56; Admin Dose 5,000 UNIT; Start 01/06/17 at 21:00 Alendronate Sodium (Fosamax) 70 mg Q7D PO Last administered on 01/06/17 14:00 ; Admin Dose 70 MG; Start 01/06/17 at 14:00 Aspirin (Halfprin) 81 mg DAILY PO Last administered on 01/11/17 08:50; Admin Dose 81 MG; Start 01/07/17 at 09:00 Atorvastatin Calcium (Lipitor) 20 mg HS PO Last administered on 01/10/17 20:14 ; Admin Dose 20 MG; Start 01/06/17 at 21:00 Duloxetine HCl (Cymbalta) 20 mg DAILY PO Last administered on 01/11/17 08:47; Admin Dose 20 MG; Start 01/07/17 at 09:00 Gabapentin (Neurontin) 300 mg TID PO Last administered on 01/11/17 12:17; Admin Dose 300 MG; Start 01/06/17 at 13:00 Metoprolol Tartrate (Lopressor) 12.5 mg BID PO ; Start 01/06/17 at 21:00; Status Future Hold Ticagrelor (Brilinta) 90 mg BID PO Last administered on 01/09/17 10:09; Admin Dose 90 MG; Start 01/06/17 at 21:00; Status Future Hold Diagnostic Test (Pha) (Accu-Chek) 1 ea 02 XX ; Start 01/07/17 at 02:00 Diagnostic Test (Pha) (Accu-Chek) 1 ea 02 XX ; Start 01/07/17 at 02:00 Furosemide (Lasix) 20 mg DAILY PO ; Start 01/07/17 at 09:00; Status Future Hold Bisacodyl (Dulcolax Supp) 10 mg DAILY PRN [place] CONSTIPATION; Start 01/06/17 at 11 :30 Guaifenesin (Robitussin Liquid Cup) 100 mg Q6H PRN PO COUGH Last administered on 01/08/17 07:54; Admin Dose 100 MG; Start 01/06/17 at 11:30 Lactulose (Enulose) 20 gm DAILY PRN PO CONSTIPATION; Start 01/06/17 at 11:30 Levothyroxine Sodium (Synthroid) 112 mcg DAILY@06 PO Last administered on 06:10; Admin Dose 112 MCG; Start 01/07/17 at 06:00 Lisinopril (Zestril) 2.5 mg DAILY PO ; Start 01/07/17 at 09:00 Magnesium Hydroxide (Milk Of Mag) 30 ml DAILY PRN PO CONSTIPATION; Start at 11:30 Polyethylene Glycol (Miralax) 17 gm DAILY PO Last administered on 01/07/17 08: 24; Admin Dose 17 GM; Start 01/07/17 at 09:00 Senna (Senokot) 2 tab HS PO Last administered on 01/10/17 20:14; Admin Dose 2 TAB; Start 01/06/17 at 21:00 Miscellaneous Information 1 ea NOTE XX ; Start 01/06/17 at 12:00 Glucose (Glutose) 15 gm Q15M PRN PO DECREASED GLUCOSE; Start 01/06/17 at 12:00 Glucose (Glutose) 22.5 gm Q15M PRN PO DECREASED GLUCOSE Last administered on 03:34; Admin Dose 22.5 GM; Start 01/06/17 at 12:00 Dextrose (D50w Syringe) 25 ml Q15M PRN IV DECREASED GLUCOSE; Start 01/06/17 at 12:00 Dextrose (D50w Syringe) 50 ml Q15M PRN IV DECREASED GLUCOSE; Start 01/06/17 at 12:00 Glucagon (Glucagen) 1 mg Q15M PRN IM DECREASED GLUCOSE; Start 01/06/17 at 12:00 Glucose 15 gm 15 gm Q15M PRN BUCCAL DECREASED GLUCOSE Last administered on 01/10t 07:07; Admin Dose 15 GM; Start 01/06/17 at 12:00 Epinephrine 4 mg/ Dextrose 250 ml @ 0 mls/hr INTRA-OP IV ; Start 01/12/17 at 12: 00; Stop 01/12/17 at 18:50 Phenylephrine HCl 250 ml @ 0 mls/hr INTRA-OP IV ; Start 01/12/17 at 12:00; Stop 01/12/17 at 18:50 Insulin Human Regular/Sodium Chloride (Novolin-R/NS) 100 ml @ 0 mls/hr INTRA-OP IV ; Start 01/12/17 at 12:00; Stop 01/12/17 at 18:50 CHELA ALVARENGA MD Jan 11, 2017 14:48
--- NOTE | 2017-01-11 16:19 | PN ---
Date/Time of Note Date/Time of Note DATE: 01/11/17 TIME: 16:09 Assessment/Plan VTE Prophylaxis VTE Prophylaxis Intervention: SCD's Lines/Catheters Urinary Cath still in place: No Assessment/Plan Assessment/Plan 56 yo F with poorly controlled DM2 admitted for NSTEMI in setting DKA. Found to have multivessel CAD. Awaiting CABG. Also with incidental finding of L sided subglotting lesion 1. multivessel CAD, recent NSTEMI, ICM with EF <25% -CABG pending, date TBD -cont acei, DAPT -bb/lasix on hold for orthostasis 2. L subglottic lesion: ENT has seen patient but no note in chart -call ENT Dr Michael Martinez tomorrow (Thursday) to f/u and clarify progress re evaluation 3. Severe obstructive and restrictive pulmonary disease. Status post PFTs -Continue bronchodilators. 4. Type II diabetes mellitus.Again with hypoglycemic episodes. -hold lantus. cont SSI only 5. Hypothyroidism. -On Synthroid. 6. Chronic anemia. H&H stable. Will monitor. 7. Significant deconditioning Continue with physical therapy as tolerated. DVT prophylaxis: Heparin Plan:need to talk to ENT and CT surgery to coordinate urgency between these 2 issues (throat mass v multi vessel CAD) Subjective 24 Hr Interval Summary Free Text/Dictation Despite decreased lantus dose pt with another low BG while she was sleeping. Some confusion in the notes regarding ENT eval for pt's L subglottic mass. Pt seen by ENT Dr Michael Martinez and per pt had flexible laryngoscopy but there are no notes from ENT service. Exam/Review of Systems Vital Signs Vitals Vital Signs Date Time Temp Pulse Resp B/P Pulse Ox O2 Delivery O2 Flow Rate FiO2 01/11/17 08:00 98.5 80 19 103/94 97 01/10/17 08:35 21 Intake and Output 01/10/17 01/10/17 01/11/17 15:00 23:00 07:00 Intake Total 1200 ml 480 ml Balance 1200 ml 480 ml Exam nad, sitting up in bed, pleasant no mrg lungs clear abd soft no rashes Results Result Diagram: 01/09/17 0502 01/11/17 0322 Results 24 hrs Laboratory Tests Test 01/10/17 16:44 01/10/17 20:09 01/11/17 03:04 01/11/17 03:22 Bedside Glucose 86 253 H 46 *L Glucose Level 38 *L Test 01/11/17 03:31 01/11/17 03:56 01/11/17 04:13 01/11/17 06:10 Bedside Glucose 39 *L 62 L 110 137 Test 01/11/17 07:55 01/11/17 10:24 01/11/17 11:57 01/11/17 12:07 Bedside Glucose 238 H 294 H 372 H 419 *H Medications Medications Current Medications Ondansetron HCl (Zofran Inj) 4 mg Q6H PRN IV NAUSEA AND/OR VOMITING; Start at 11:30 Acetaminophen (Tylenol Tab) 650 mg Q6H PRN PO PAIN LEVEL 1-3 OR FEVER; Start at 11:30 Acetaminophen (Tylenol Supp) 650 mg Q6H PRN [place] PAIN LEVEL 1-3 OR FEVER; Start 01/06/17 at 11:30 Morphine Sulfate (morphine) 2 mg Q4H PRN IV SEVERE PAIN LEVEL 7-10; Start 01/06 at 11:30 Famotidine (Pepcid) 20 mg Q12 PO Last administered on 01/11/17 08:47; Admin Dose 20 MG; Start 01/06/17 at 21:00 Heparin Sodium (Porcine) (Heparin (5000 Units/0.5 ml)) 5,000 unit Q12 SC Last administered on 01/10/17 08:56; Admin Dose 5,000 UNIT; Start 01/06/17 at 21:00 Alendronate Sodium (Fosamax) 70 mg Q7D PO Last administered on 01/06/17 14:00 ; Admin Dose 70 MG; Start 01/06/17 at 14:00 Aspirin (Halfprin) 81 mg DAILY PO Last administered on 01/11/17 08:50; Admin Dose 81 MG; Start 01/07/17 at 09:00 Atorvastatin Calcium (Lipitor) 20 mg HS PO Last administered on 01/10/17 20:14 ; Admin Dose 20 MG; Start 01/06/17 at 21:00 Duloxetine HCl (Cymbalta) 20 mg DAILY PO Last administered on 01/11/17 08:47; Admin Dose 20 MG; Start 01/07/17 at 09:00 Gabapentin (Neurontin) 300 mg TID PO Last administered on 01/11/17 12:17; Admin Dose 300 MG; Start 01/06/17 at 13:00 Metoprolol Tartrate (Lopressor) 12.5 mg BID PO ; Start 01/06/17 at 21:00; Status Future Hold Ticagrelor (Brilinta) 90 mg BID PO Last administered on 01/09/17 10:09; Admin Dose 90 MG; Start 01/06/17 at 21:00; Status Future Hold Diagnostic Test (Pha) (Accu-Chek) 1 ea 02 XX ; Start 01/07/17 at 02:00 Diagnostic Test (Pha) (Accu-Chek) 1 ea 02 XX ; Start 01/07/17 at 02:00 Furosemide (Lasix) 20 mg DAILY PO ; Start 01/07/17 at 09:00; Status Future Hold Bisacodyl (Dulcolax Supp) 10 mg DAILY PRN [place] CONSTIPATION; Start 01/06/17 at 11 :30 Guaifenesin (Robitussin Liquid Cup) 100 mg Q6H PRN PO COUGH Last administered on 01/08/17 07:54; Admin Dose 100 MG; Start 01/06/17 at 11:30 Lactulose (Enulose) 20 gm DAILY PRN PO CONSTIPATION; Start 01/06/17 at 11:30 Levothyroxine Sodium (Synthroid) 112 mcg DAILY@06 PO Last administered on 06:10; Admin Dose 112 MCG; Start 01/07/17 at 06:00 Lisinopril (Zestril) 2.5 mg DAILY PO ; Start 01/07/17 at 09:00 Magnesium Hydroxide (Milk Of Mag) 30 ml DAILY PRN PO CONSTIPATION; Start at 11:30 Polyethylene Glycol (Miralax) 17 gm DAILY PO Last administered on 01/07/17 08: 24; Admin Dose 17 GM; Start 01/07/17 at 09:00 Senna (Senokot) 2 tab HS PO Last administered on 01/10/17 20:14; Admin Dose 2 TAB; Start 01/06/17 at 21:00 Miscellaneous Information 1 ea NOTE XX ; Start 01/06/17 at 12:00 Glucose (Glutose) 15 gm Q15M PRN PO DECREASED GLUCOSE; Start 01/06/17 at 12:00 Glucose (Glutose) 22.5 gm Q15M PRN PO DECREASED GLUCOSE Last administered on 03:34; Admin Dose 22.5 GM; Start 01/06/17 at 12:00 Dextrose (D50w Syringe) 25 ml Q15M PRN IV DECREASED GLUCOSE; Start 01/06/17 at 12:00 Dextrose (D50w Syringe) 50 ml Q15M PRN IV DECREASED GLUCOSE; Start 01/06/17 at 12:00 Glucagon (Glucagen) 1 mg Q15M PRN IM DECREASED GLUCOSE; Start 01/06/17 at 12:00 Glucose 15 gm 15 gm Q15M PRN BUCCAL DECREASED GLUCOSE Last administered on 01/10 07:07; Admin Dose 15 GM; Start 01/06/17 at 12:00 Epinephrine 4 mg/ Dextrose 250 ml @ 0 mls/hr INTRA-OP IV ; Start 01/12/17 at 12: 00; Stop 01/12/17 at 18:50 Phenylephrine HCl 250 ml @ 0 mls/hr INTRA-OP IV ; Start 01/12/17 at 12:00; Stop 01/12/17 at 18:50 Insulin Human Regular/Sodium Chloride (Novolin-R/NS) 100 ml @ 0 mls/hr INTRA-OP IV ; Start 01/12/17 at 12:00; Stop 01/12/17 at 18:50 ROBEL PETTY MD Jan 11, 2017 16:19
--- NOTE | 2017-01-11 17:25 | CONS ---
Date/Time of Note Date/Time of Note DATE: 01/11/17 TIME: 17:23 Assessment/Plan Assessment/Plan Additional Assessment/Plan 1.NSTEMI - peak trop>60 Now dowtrended significantly s/p LHC with patent RCA stents and high grade disease of LAD/LCX with small caliber vessels and recc for CABG. Still ongoing surgical eval and question date of possible surgery - SURGERY PLANNED THURSDAY, but now with ? laryngeal mass - surgery help pending evaluation 2.cardiomyopathy-LVEF 40-45 BY OSH echo. 25% by echo read here - will monitor - considerr ICD at 3-6 months depending on CABG response 3.Hypotension-orthostatics today with transfer to med-surg-? overdiuresis- currently improved 4.resp failure s/p extubation requiring PRN BIPAP which has now improved and not requiring further at this time 5.anemia 6. AMS/encephalopathy 7. PNA-ongoing by chest CT 8. COPD 9. Hypothyroid 10.DM-labile BS 11.Neck mass? with dysphagia 12. carotid stenosis Consultation Date/Type/Reason Admit Date/Time Jan 06, 2017 at 10:49 Type of Consultation: Pulmonary Referring Provider: TAD HIGGINS NP 24 HR Interval Summary Free Text/Dictation SURGERY PLANNED THURSDAY, but now with ? laryngeal mass - surgery help pending evaluation ROS: No fever, no chills, no nausea, no vomiting, no diarrhea/constipation No recent weight changes No chest pain, no PND, no orthopnea No dizziness, blurred vision No thirst, no heat or cold intolerance Exam/Review of Systems Vital Signs Vitals Vital Signs Date Time Temp Pulse Resp B/P Pulse Ox O2 Delivery O2 Flow Rate FiO2 01/11/17 08:00 98.5 80 19 103/94 97 01/10/17 08:35 21 Intake and Output 01/10/17 01/10/17 01/11/17 15:00 23:00 07:00 Intake Total 1200 ml 480 ml Balance 1200 ml 480 ml Exam General: WN/WD/NAD, AOx 3 HEENT: Unicetric/atraumatic/EOMI (follows commands) NECK: JVD elevated, no thyromegaly Lymph: no lymphadenopathy HEART: regular with no S3, II/ systolic murmur at apex, PMI L LUNGS: Coarse sounds ABD: soft, NT, ND, +BS : Intact Neuro: non focal SKIN: chronic changes EXT: trace edema Results Result Diagram: 01/09/17 0502 01/11/17 0322 Results 24 hrs Laboratory Tests Test 01/10/17 20:09 01/11/17 03:04 01/11/17 03:22 01/11/17 03:31 Bedside Glucose 253 H 46 *L 39 *L Glucose Level 38 *L Test 01/11/17 03:56 01/11/17 04:13 01/11/17 06:10 01/11/17 07:55 Bedside Glucose 62 L 110 137 238 H Test 01/11/17 10:24 01/11/17 11:57 01/11/17 12:07 Bedside Glucose 294 H 372 H 419 *H Medications Medications Current Medications Ondansetron HCl (Zofran Inj) 4 mg Q6H PRN IV NAUSEA AND/OR VOMITING; Start at 11:30 Acetaminophen (Tylenol Tab) 650 mg Q6H PRN PO PAIN LEVEL 1-3 OR FEVER; Start at 11:30 Acetaminophen (Tylenol Supp) 650 mg Q6H PRN [place] PAIN LEVEL 1-3 OR FEVER; Start 01/06/17 at 11:30 Heparin Sodium (Porcine) (Heparin (5000 Units/0.5 ml)) 5,000 unit Q12 SC Last administered on 01/10/17 08:56; Admin Dose 5,000 UNIT; Start 01/06/17 at 21:00 Alendronate Sodium (Fosamax) 70 mg Q7D PO Last administered on 01/06/17 14:00 ; Admin Dose 70 MG; Start 01/06/17 at 14:00 Aspirin (Halfprin) 81 mg DAILY PO Last administered on 01/11/17 08:50; Admin Dose 81 MG; Start 01/07/17 at 09:00 Atorvastatin Calcium (Lipitor) 20 mg HS PO Last administered on 01/10/17 20:14 ; Admin Dose 20 MG; Start 01/06/17 at 21:00 Duloxetine HCl (Cymbalta) 20 mg DAILY PO Last administered on 01/11/17 08:47; Admin Dose 20 MG; Start 01/07/17 at 09:00 Gabapentin (Neurontin) 300 mg TID PO Last administered on 01/11/17 12:17; Admin Dose 300 MG; Start 01/06/17 at 13:00 Metoprolol Tartrate (Lopressor) 12.5 mg BID PO ; Start 01/06/17 at 21:00; Status Future Hold Ticagrelor (Brilinta) 90 mg BID PO Last administered on 01/09/17 10:09; Admin Dose 90 MG; Start 01/06/17 at 21:00; Status Future Hold Diagnostic Test (Pha) (Accu-Chek) 1 ea 02 XX ; Start 01/07/17 at 02:00 Diagnostic Test (Pha) (Accu-Chek) 1 ea 02 XX ; Start 01/07/17 at 02:00 Furosemide (Lasix) 20 mg DAILY PO ; Start 01/07/17 at 09:00; Status Future Hold Bisacodyl (Dulcolax Supp) 10 mg DAILY PRN [place] CONSTIPATION; Start 01/06/17 at 11 :30 Guaifenesin (Robitussin Liquid Cup) 100 mg Q6H PRN PO COUGH Last administered on 01/08/17 07:54; Admin Dose 100 MG; Start 01/06/17 at 11:30 Levothyroxine Sodium (Synthroid) 112 mcg DAILY@06 PO Last administered on 06:10; Admin Dose 112 MCG; Start 01/07/17 at 06:00 Lisinopril (Zestril) 2.5 mg DAILY PO ; Start 01/07/17 at 09:00 Polyethylene Glycol (Miralax) 17 gm DAILY PO Last administered on 01/07/17 08: 24; Admin Dose 17 GM; Start 01/07/17 at 09:00 Senna (Senokot) 2 tab HS PO Last administered on 01/10/17 20:14; Admin Dose 2 TAB; Start 01/06/17 at 21:00 Miscellaneous Information 1 ea NOTE XX ; Start 01/06/17 at 12:00 Glucose (Glutose) 15 gm Q15M PRN PO DECREASED GLUCOSE; Start 01/06/17 at 12:00 Glucose (Glutose) 22.5 gm Q15M PRN PO DECREASED GLUCOSE Last administered on 03:34; Admin Dose 22.5 GM; Start 01/06/17 at 12:00 Dextrose (D50w Syringe) 25 ml Q15M PRN IV DECREASED GLUCOSE; Start 01/06/17 at 12:00 Dextrose (D50w Syringe) 50 ml Q15M PRN IV DECREASED GLUCOSE; Start 01/06/17 at 12:00 Glucagon (Glucagen) 1 mg Q15M PRN IM DECREASED GLUCOSE; Start 01/06/17 at 12:00 Glucose 15 gm 15 gm Q15M PRN BUCCAL DECREASED GLUCOSE Last administered on 01/10t 07:07; Admin Dose 15 GM; Start 01/06/17 at 12:00 Epinephrine 4 mg/ Dextrose 250 ml @ 0 mls/hr INTRA-OP IV ; Start 01/12/17 at 12: 00; Stop 01/12/17 at 18:50 Phenylephrine HCl 250 ml @ 0 mls/hr INTRA-OP IV ; Start 01/12/17 at 12:00; Stop 01/12/17 at 18:50 Insulin Human Regular/Sodium Chloride (Novolin-R/NS) 100 ml @ 0 mls/hr INTRA-OP IV ; Start 01/12/17 at 12:00; Stop 01/12/17 at 18:50 ARTIE MARADIAGA MD Jan 11, 2017 17:25
[2017-01-11 20:13] VITALS: BP 105/53; RESP 18
[2017-01-11] MEDS: ATORVASTATIN 20 MG TAB PO SCH (21:15)
[2017-01-11] MEDS: SENNA TAB PO SCH (21:15)
[2017-01-11] MEDS ORDERED: INSULIN ASPART [NOVOLOG] 3 ML PEN SC ONE (21:30)
[2017-01-11] MEDS ORDERED: INSULIN GLARGINE [LANtus] 3 ML PEN SC SCH (22:33)
[2017-01-12] MEDS: ACCU-CHEK XX SCH ×2 (02:00)
[2017-01-12 02:30] VITALS: BP 97/50; RESP 18
[2017-01-12] MEDS: LEVOTHYROXINE 112 MCG TAB PO SCH (06:56)
[2017-01-12 08:00] VITALS: BP 117/54; RESP 18
[2017-01-12] MEDS: POLYETHYLENE GLYCOL 17 GM PACKET PO SCH (08:02)
[2017-01-12] MEDS: LISINOPRIL 5 MG TAB PO SCH (08:11)
[2017-01-12] MEDS: GABAPENTIN 300 MG CAP PO SCH ×3 (08:11→21:02)
[2017-01-12] MEDS: ASPIRIN (EC) 81 MG TAB PO SCH (08:12)
[2017-01-12] MEDS: DULOXETINE 20 MG CAP DR PO SCH (08:12)
[2017-01-12] MEDS: INSULIN ASPART [NOVOLOG] 3 ML PEN SC SCH ×7 (08:14→21:10)
[2017-01-12] MEDS: HEPARIN 5,000 UNIT/0.5 ML VIAL SC SCH ×2 (08:16→21:03)
--- NOTE | 2017-01-12 09:50 | PN ---
DATE: 01/11/2017 SUBJECTIVE DATA: The patient continues stable. Denies any shortness of breath, chest pain, wheezing, cough, sputum production or dysphagia. OBJECTIVE DATA: GENERAL: Elderly woman, awake, alert, currently in no distress. VITAL SIGNS: Temperature 98 degrees Fahrenheit, respiratory rate 18 per minute, O2 sat 95 percent on 2 L nasal cannula, blood pressure 110/70, heart rate 80. HEENT: Supple neck. No JVD. No lymphadenopathy. Midline trachea. No thyromegaly. Pharynx is clear. No neck bruits. CHEST: Clear to auscultation. S1, S2 audible. No murmurs. Regular rhythm. ABDOMEN: Soft. Bowel sounds audible. No organomegaly. EXTREMITIES: No edema. NEUROLOGIC: No focal deficit. MEDICATIONS: Reviewed. ASSESSMENT: 1. The patient with acute myocardial infarction with significant improvement. 2. Underlying cardiomyopathy with poor ejection fraction. 3. Diabetes and hypothyroidism as well as hypertension. 4. Recent discovery of 1 cm subglottic mass. The patient was evaluated by ENT surgeon when she was at [facility]. The results of the work up are not available. 5. Right internal carotid artery occlusion. RECOMMENDATIONS: Continue current treatment. CABG has been deferred until further clarification is obtained regarding the subglottic mass. Dictated By: Ovidio Sadler MD /[email or web address] /Document#: [id number]
[2017-01-12 10:00] VITALS: BP 98/52
--- NOTE | 2017-01-12 10:18 | PN ---
Date/Time of Note Date/Time of Note DATE: 01/12/17 TIME: 10:18 Assessment/Plan Lines/Catheters [facility] in Place (from [facility]): No Assessment/Plan Chief Complaint/Hosp Course Patient with coronary artery disease multiple other medical problem Carotid dupplex Occlusion of the right internal carotid artery just beyond its origin due to large plaque burden as seen on the prior MRI. Small plaques involving the visualized portion of the left internal carotid artery without evidence of flow acceleration to suggest a hemodynamically significant stenosis; less than 50% Concern for possible anterior tracheal mass below the vocal cords. This may require investigation prior to coronary artery bypass graft surgery. Plan for coronary artery bypass grafting on Thursday on hold Awaiting ENT Evaluation Patient is at very high risk of having surgery secondary to significant comorbidities including carotid occlusion Risks benefits complications alternative therapies explained to the patient Will discuss with Dr. Adames Discussed with Dr. Sanz Problems: Subjective 24 Hr Interval Summary Constitutional: improved Pain Control: mild Exam/Review of Systems Vital Signs Vitals Vital Signs Date Time Temp Pulse Resp B/P Pulse Ox O2 Delivery O2 Flow Rate FiO2 01/12/17 08:00 98.3 82 18 117/54 95 01/10/17 08:35 21 Intake and Output 01/11/17 01/11/17 01/12/17 15:00 23:00 07:00 Intake Total 970 ml 950 ml Balance 970 ml 950 ml Exam ENMT: mucosa pink and moist, nl external ears & nose, nl lips & teeth, nl nasal mucosa & septum Neck: non-tender, supple Respiratory: clear to auscultation, normal air movement Cardiovascular: nl pulses, regular rate and rhythm Gastrointestinal: nl liver, spleen, non-tender, soft Results Result Diagram: 01/09/17 0502 01/11/17 0322 CHELA ALVARENGA MD Jan 12, 2017 10:18
--- NOTE | 2017-01-12 11:00 | PN ---
Date/Time of Note Date/Time of Note DATE: 01/12/17 TIME: 10:45 Assessment/Plan VTE Prophylaxis VTE Prophylaxis Intervention: heparin Lines/Catheters Urinary Cath still in place: No Assessment/Plan Chief Complaint/Hosp Course Assessment/Plan: 56 yo F with poorly controlled DM2 admitted for NSTEMI in setting DKA. Found to have multivessel CAD. Awaiting CABG. Also with incidental finding of L sided subglotting lesion 1. multivessel CAD, recent NSTEMI, ICM with EF <25%. CABG pending, date TBD, although according to CTS patient is at very high risk of having surgery secondary to significant comorbidities including carotid occlusion, specifically occlusion of the right internal carotid artery just beyond its origin due to large plaque burden as seen on the prior MRI. -cont acei, DAPT -bb/lasix on hold for orthostasis which is still present 2. L subglottic lesion: ENT has seen patient but no note in chart -per discussion with hospitalist team last week, they spoke with ENT doctor. ENT is recommending bronchoscopy with biopsy first because the mass appears to be in the trachea-this was discussed with pulmonary team today. -Follow-up recommendations from information technology consultant teams, specifically regarding any possible bronchoscopy. 3. Severe obstructive and restrictive pulmonary disease. Status post PFTs -Continue bronchodilators. 4. Type II diabetes mellitus -sugars in the last 24 hours were actually elevated -We will adjust short acting insulin, Lantus, and sliding scale today, monitor fingerstick 5. Hypothyroidism. -On Synthroid. 6. Chronic anemia. H&H stable. Will monitor. 7. Significant deconditioning Continue with physical therapy as tolerated. DVT prophylaxis: Heparin Problems: Subjective 24 Hr Interval Summary Free Text/Dictation No acute events overnight. Patient tolerating diet. Seen by pulmonary and cardiothoracic surgery team today. Patient still with positive orthostasis. Did not take lisinopril this morning. Exam/Review of Systems Vital Signs Vitals Vital Signs Date Time Temp Pulse Resp B/P Pulse Ox O2 Delivery O2 Flow Rate FiO2 01/12/17 08:00 98.3 82 18 117/54 95 01/10/17 08:35 21 Intake and Output 01/11/17 01/11/17 01/12/17 15:00 23:00 07:00 Intake Total 970 ml 950 ml Balance 970 ml 950 ml Exam nad, sleeping presently no mrg lungs clear abd soft no rashes No focal deficits Results Result Diagram: 01/09/17 0502 01/11/17 0322 Results 24 hrs Laboratory Tests Test 01/11/17 11:57 01/11/17 12:07 01/11/17 17:25 01/11/17 21:20 Bedside Glucose 372 H 419 *H 416 *H 465 *H Test 01/12/17 02:31 01/12/17 07:40 Bedside Glucose 206 306 H Medications Medications Current Medications Ondansetron HCl (Zofran Inj) 4 mg Q6H PRN IV NAUSEA AND/OR VOMITING; Start at 11:30 Acetaminophen (Tylenol Tab) 650 mg Q6H PRN PO PAIN LEVEL 1-3 OR FEVER; Start at 11:30 Acetaminophen (Tylenol Supp) 650 mg Q6H PRN [place] PAIN LEVEL 1-3 OR FEVER; Start 01/06/17 at 11:30 Heparin Sodium (Porcine) (Heparin (5000 Units/0.5 ml)) 5,000 unit Q12 SC Last administered on 01/12/17 08:16; Admin Dose 5,000 UNIT; Start 01/06/17 at 21:00 Alendronate Sodium (Fosamax) 70 mg Q7D PO Last administered on 01/06/17 14:00 ; Admin Dose 70 MG; Start 01/06/17 at 14:00 Aspirin (Halfprin) 81 mg DAILY PO Last administered on 01/12/17 08:12; Admin Dose 81 MG; Start 01/07/17 at 09:00 Atorvastatin Calcium (Lipitor) 20 mg HS PO Last administered on 01/11/17 21:15 ; Admin Dose 20 MG; Start 01/06/17 at 21:00 Duloxetine HCl (Cymbalta) 20 mg DAILY PO Last administered on 01/12/17 08:12; Admin Dose 20 MG; Start 01/07/17 at 09:00 Gabapentin (Neurontin) 300 mg TID PO Last administered on 01/12/17 08:11; Admin Dose 300 MG; Start 01/06/17 at 13:00 Metoprolol Tartrate (Lopressor) 12.5 mg BID PO ; Start 01/06/17 at 21:00; Status Future Hold Ticagrelor (Brilinta) 90 mg BID PO Last administered on 01/09/17 10:09; Admin Dose 90 MG; Start 01/06/17 at 21:00; Status Future Hold Diagnostic Test (Pha) (Accu-Chek) 1 ea 02 XX ; Start 01/07/17 at 02:00 Diagnostic Test (Pha) (Accu-Chek) 1 ea 02 XX ; Start 01/07/17 at 02:00 Furosemide (Lasix) 20 mg DAILY PO ; Start 01/07/17 at 09:00; Status Future Hold Bisacodyl (Dulcolax Supp) 10 mg DAILY PRN [place] CONSTIPATION; Start 01/06/17 at 11 :30 Guaifenesin (Robitussin Liquid Cup) 100 mg Q6H PRN PO COUGH Last administered on 01/08/17 07:54; Admin Dose 100 MG; Start 01/06/17 at 11:30 Levothyroxine Sodium (Synthroid) 112 mcg DAILY@06 PO Last administered on 06:56; Admin Dose 112 MCG; Start 01/07/17 at 06:00 Lisinopril (Zestril) 2.5 mg DAILY PO ; Start 01/07/17 at 09:00 Polyethylene Glycol (Miralax) 17 gm DAILY PO Last administered on 01/07/17 08: 24; Admin Dose 17 GM; Start 01/07/17 at 09:00 Senna (Senokot) 2 tab HS PO Last administered on 01/11/17 21:15; Admin Dose 2 TAB; Start 01/06/17 at 21:00 Miscellaneous Information 1 ea NOTE XX ; Start 01/06/17 at 12:00 Glucose (Glutose) 15 gm Q15M PRN PO DECREASED GLUCOSE; Start 01/06/17 at 12:00 Glucose (Glutose) 22.5 gm Q15M PRN PO DECREASED GLUCOSE Last administered on 03:34; Admin Dose 22.5 GM; Start 01/06/17 at 12:00 Dextrose (D50w Syringe) 25 ml Q15M PRN IV DECREASED GLUCOSE; Start 01/06/17 at 12:00 Dextrose (D50w Syringe) 50 ml Q15M PRN IV DECREASED GLUCOSE; Start 01/06/17 at 12:00 Glucagon (Glucagen) 1 mg Q15M PRN IM DECREASED GLUCOSE; Start 01/06/17 at 12:00 Glucose 15 gm 15 gm Q15M PRN BUCCAL DECREASED GLUCOSE Last administered on 01/10 07:07; Admin Dose 15 GM; Start 01/06/17 at 12:00 Epinephrine 4 mg/ Dextrose 250 ml @ 0 mls/hr INTRA-OP IV ; Start 01/12/17 at 12: 00; Stop 01/12/17 at 18:50 Phenylephrine HCl 250 ml @ 0 mls/hr INTRA-OP IV ; Start 01/12/17 at 12:00; Stop 01/12/17 at 18:50 Insulin Human Regular/Sodium Chloride (Novolin-R/NS) 100 ml @ 0 mls/hr INTRA-OP IV ; Start 01/12/17 at 12:00; Stop 01/12/17 at 18:50 Insulin Glargine (Lantus) 5 unit DAILY@20 SC Last administered on 01/11/17 22: 35; Admin Dose 5 UNIT; Start 01/11/17 at 22:33 TANIYA OLMSTEAD Jan 12, 2017 10:57
[2017-01-12] MEDS ORDERED: PHENYLephrine 20MG IN 250 ML 250 ML IV SCH (12:00)
[2017-01-12] MEDS ORDERED: EPINEPHrine 4 MG in DEXTROSE 5% 246 ML IV SCH (12:00)
[2017-01-12] MEDS ORDERED: INSULIN ASPART [NOVOLOG] 3 ML PEN SC SCH ×3 (12:00→13:00)
[2017-01-12] MEDS ORDERED: INSULIN HUMAN REGULAR 100 UNIT in SOD CHLORIDE 0.9% 99 ML IV SCH (12:00)
--- NOTE | 2017-01-12 12:44 | CONS ---
Date/Time of Note Date/Time of Note DATE: 01/12/17 TIME: 12:42 Assessment/Plan Assessment/Plan Chief Complaint/Hosp Course IMP: 1.NSTEMI-peak trop>60 Now dowtrended significantly s/p LHC with patent RCA stents and high grade disease of LAD/LCX with small caliber vessels and recc for CABG. Still ongoing surgical eval and question date of possible surgery? 2.cardiomyopathy-LVEF 40-45 BY OSH echo. 25% by echo read here 3.Hypotension-orthostatics today with transfer to med-surg-? overdiuresis- currently improved 4.resp failure s/p extubation requiring PRN BIPAP which has now improved and not requiring further at this time 5.anemia 6. AMS/encephalopathy 7. PNA-ongoing by chest CT 8. COPD 9. Hypothyroid 10.DM-labile BS 11.Neck mass? with dysphagia. ENBT recc bronchsopy and bx 12. carotid stenosis Recc: -Now transferred to med-surg -Hold BB/lasix and follow BP -Continue acei as tolerated only -Continue asa -Will resume brilinta if no surgery scheduled -Continue statin -Smoking cessation -Follow BS closely and adjust insulin therapy as necessary -Continue abx's and f/u cx data -Continue bronchodilators -CT surgical eval ongoing and have discussed with daughter/patient who are agreeable and CT surgery following with surgery intially scheduled for today but postponed due to need for eval of neck mass first Problems: Consultation Date/Type/Reason Admit Date/Time Jan 06, 2017 at 10:49 Initial Consult Date 01/06/2017 Type of Consultation: cardiology Reason for Consultation Nstemi Referring Provider: TAD HIGGINS NP Exam/Review of Systems Vital Signs Vitals Vital Signs Date Time Temp Pulse Resp B/P Pulse Ox O2 Delivery O2 Flow Rate FiO2 01/12/17 08:00 98.3 82 18 117/54 95 01/10/17 08:35 21 Intake and Output 01/11/17 01/11/17 01/12/17 15:00 23:00 07:00 Intake Total 970 ml 950 ml Balance 970 ml 950 ml Exam Review of Systems: CONSTITUTIONAL: No fevers, chills. PULMONARY: No sob CARDIOVASCULAR: No chest pain/palpitations GASTROINTESTINAL: No nausea/vomiting. GENITOURINARY: No hematuria/dysuria. MUSCULOSKELETAL: No myagias/arthalgias. PSYCHIATRIC: The patient denies depression. NEUROLOGIC: No weakness Constitutional: alert Psych: no complaints Head: normocephalic ENMT: mucosa pink and moist Neck: jvd (9 cm water), supple Respiratory: diminished breath sounds (at bases/B) Cardiovascular: regular rate and rhythm Gastrointestinal: non-tender, soft Musculoskeletal: muscle tone (normal) Extremities: edema (none) 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: other (NO ofcal deficits) Results Result Diagram: 01/09/17 0502 01/11/17 0322 Results 24 hrs Laboratory Tests Test 01/11/17 17:25 01/11/17 21:20 01/12/17 02:31 01/12/17 07:40 Bedside Glucose 416 *H 465 *H 206 306 H Test 01/12/17 11:14 Bedside Glucose 321 H Medications Medications Current Medications Ondansetron HCl (Zofran Inj) 4 mg Q6H PRN IV NAUSEA AND/OR VOMITING; Start at 11:30 Acetaminophen (Tylenol Tab) 650 mg Q6H PRN PO PAIN LEVEL 1-3 OR FEVER; Start at 11:30 Acetaminophen (Tylenol Supp) 650 mg Q6H PRN [place] PAIN LEVEL 1-3 OR FEVER; Start 01/06/17 at 11:30 Heparin Sodium (Porcine) (Heparin (5000 Units/0.5 ml)) 5,000 unit Q12 SC Last administered on 01/12/17 08:16; Admin Dose 5,000 UNIT; Start 01/06/17 at 21:00 Alendronate Sodium (Fosamax) 70 mg Q7D PO Last administered on 01/06/17 14:00 ; Admin Dose 70 MG; Start 01/06/17 at 14:00 Aspirin (Halfprin) 81 mg DAILY PO Last administered on 01/12/17 08:12; Admin Dose 81 MG; Start 01/07/17 at 09:00 Atorvastatin Calcium (Lipitor) 20 mg HS PO Last administered on 01/11/17 21:15 ; Admin Dose 20 MG; Start 01/06/17 at 21:00 Duloxetine HCl (Cymbalta) 20 mg DAILY PO Last administered on 01/12/17 08:12; Admin Dose 20 MG; Start 01/07/17 at 09:00 Gabapentin (Neurontin) 300 mg TID PO Last administered on 01/12/17 11:57; Admin Dose 300 MG; Start 01/06/17 at 13:00 Metoprolol Tartrate (Lopressor) 12.5 mg BID PO ; Start 01/06/17 at 21:00; Status Future Hold Ticagrelor (Brilinta) 90 mg BID PO Last administered on 01/09/17 10:09; Admin Dose 90 MG; Start 01/06/17 at 21:00; Status Future Hold Diagnostic Test (Pha) (Accu-Chek) 1 ea 02 XX ; Start 01/07/17 at 02:00 Diagnostic Test (Pha) (Accu-Chek) 1 ea 02 XX ; Start 01/07/17 at 02:00 Furosemide (Lasix) 20 mg DAILY PO ; Start 01/07/17 at 09:00; Status Future Hold Bisacodyl (Dulcolax Supp) 10 mg DAILY PRN [place] CONSTIPATION; Start 01/06/17 at 11 :30 Guaifenesin (Robitussin Liquid Cup) 100 mg Q6H PRN PO COUGH Last administered on 01/08/17 07:54; Admin Dose 100 MG; Start 01/06/17 at 11:30 Levothyroxine Sodium (Synthroid) 112 mcg DAILY@06 PO Last administered on 06:56; Admin Dose 112 MCG; Start 01/07/17 at 06:00 Lisinopril (Zestril) 2.5 mg DAILY PO ; Start 01/07/17 at 09:00 Polyethylene Glycol (Miralax) 17 gm DAILY PO Last administered on 01/07/17 08: 24; Admin Dose 17 GM; Start 01/07/17 at 09:00 Senna (Senokot) 2 tab HS PO Last administered on 01/11/17 21:15; Admin Dose 2 TAB; Start 01/06/17 at 21:00 Miscellaneous Information 1 ea NOTE XX ; Start 01/06/17 at 12:00 Glucose (Glutose) 15 gm Q15M PRN PO DECREASED GLUCOSE; Start 01/06/17 at 12:00 Glucose (Glutose) 22.5 gm Q15M PRN PO DECREASED GLUCOSE Last administered on 03:34; Admin Dose 22.5 GM; Start 01/06/17 at 12:00 Dextrose (D50w Syringe) 25 ml Q15M PRN IV DECREASED GLUCOSE; Start 01/06/17 at 12:00 Dextrose (D50w Syringe) 50 ml Q15M PRN IV DECREASED GLUCOSE; Start 01/06/17 at 12:00 Glucagon (Glucagen) 1 mg Q15M PRN IM DECREASED GLUCOSE; Start 01/06/17 at 12:00 Glucose 15 gm 15 gm Q15M PRN BUCCAL DECREASED GLUCOSE Last administered on 01/10t 07:07; Admin Dose 15 GM; Start 01/06/17 at 12:00 Epinephrine 4 mg/ Dextrose 250 ml @ 0 mls/hr INTRA-OP IV ; Start 01/12/17 at 12: 00; Stop 01/12/17 at 18:50 Phenylephrine HCl 250 ml @ 0 mls/hr INTRA-OP IV ; Start 01/12/17 at 12:00; Stop 01/12/17 at 18:50 Insulin Human Regular/Sodium Chloride (Novolin-R/NS) 100 ml @ 0 mls/hr INTRA-OP IV ; Start 01/12/17 at 12:00; Stop 01/12/17 at 18:50 Insulin Glargine (Lantus) 10 unit DAILY@20 SC ; Start 01/12/17 at 20:00 RHONDA PENA Jan 12, 2017 12:44
[2017-01-12 15:13] VITALS: BP 91/51; RESP 18
[2017-01-12] MEDS ORDERED: INSULIN GLARGINE [LANtus] 3 ML PEN SC SCH (20:00)
[2017-01-12 20:59] VITALS: BP 101/51; RESP 16
[2017-01-12] MEDS: SENNA TAB PO SCH (21:02)
[2017-01-12] MEDS: ATORVASTATIN 20 MG TAB PO SCH (21:02)
[2017-01-12] MEDS: TICAGRELOR 90 MG TABLET PO SCH (21:40)
[2017-01-13] VITALS (7 sets, daily range): BP systolic 92–108; BP diastolic 45–54; PULSE 88–99; RESP 16–20
[2017-01-13] MEDS: ACCU-CHEK XX SCH ×2 (02:00)
[2017-01-13] MEDS ORDERED: ACCU-CHEK XX SCH ×3 (02:00)
[2017-01-13 05:34] LABS: BASOPHIL # 0.1 10^3/ul (0.0-0.1); BASOPHILS % 1.8 % (0.0-2.0); EOSINOPHILS # 0.8 10^3/ul (0.0-0.5); EOSINOPHILS % 14.7 % (0.0-7.0); HEMATOCRIT 35.9 % (37.0-47.0); HEMOGLOBIN 11.7 g/dl (12.0-16.0); LYMPHOCYTES # 1.8 10^3/ul (0.8-2.9); LYMPHOCYTES % 31.1 % (15.0-51.0); MEAN CORPUSCULAR HGB CONC 32.6 g/dl (32.0-37.0); MEAN CORPUSCULAR VOLUME 95.2 fl (82.0-101.0); MEAN PLATELET VOLUME 9.1 fl (7.4-10.4); MONOCYTE # 0.5 10^3/ul (0.3-0.9); NEUTROPHIL # 2.5 10^3/ul (1.6-7.5); NEUTROPHILS % 44.2 % (39.0-77.0); PLATELET COUNT 344 10^3/UL (140-415); RED BLOOD COUNT 3.77 10^6/ul (4.20-5.40); RED CELL DISTRIBUTION WIDTH 16.2 % (11.5-14.5); WHITE BLOOD COUNT 5.6 10^3/ul (4.8-10.8)
[2017-01-13 05:51] LABS: CALCIUM 9.4 mg/dl (8.4-10.2); CREATININE 0.48 mg/dl (0.44-1.00); POTASSIUM 4.8 mmol/L (3.5-5.1)
[2017-01-13] MEDS: LEVOTHYROXINE 112 MCG TAB PO SCH (06:07)
[2017-01-13] MEDS: DULOXETINE 20 MG CAP DR PO SCH (08:25)
[2017-01-13] MEDS: TICAGRELOR 90 MG TABLET PO SCH ×2 (08:25→20:19)
[2017-01-13] MEDS: GABAPENTIN 300 MG CAP PO SCH ×3 (08:25→20:17)
[2017-01-13] MEDS: ASPIRIN (EC) 81 MG TAB PO SCH (08:25)
[2017-01-13] MEDS: LISINOPRIL 5 MG TAB PO SCH (08:28)
[2017-01-13] MEDS: POLYETHYLENE GLYCOL 17 GM PACKET PO SCH (08:30)
[2017-01-13] MEDS: INSULIN ASPART [NOVOLOG] 3 ML PEN SC SCH ×7 (08:31→21:00)
[2017-01-13] MEDS: HEPARIN 5,000 UNIT/0.5 ML VIAL SC SCH ×2 (08:33→20:22)
--- NOTE | 2017-01-13 12:19 | CONS ---
Date/Time of Note Date/Time of Note DATE: 01/13/17 TIME: 12:17 Assessment/Plan Assessment/Plan Additional Assessment/Plan 1.NSTEMI - peak trop>60 Now dowtrended significantly s/p LHC with patent RCA stents and high grade disease of LAD/LCX with small caliber vessels and recc for CABG. Still ongoing surgical eval and question date of possible surgery - SURGERY PLANNED THURSDAY, but now with ? laryngeal mass - surgery help pending evaluation AWAITING DISPO 2.cardiomyopathy-LVEF 40-45 BY OSH echo. 25% by echo read here - will monitor - considerr ICD at 3-6 months depending on CABG response 3.Hypotension-orthostatics today with transfer to med-surg-? overdiuresis- currently improved 4.resp failure s/p extubation requiring PRN BIPAP which has now improved and not requiring further at this time 5.anemia 6. AMS/encephalopathy - MUCH BETTER now 7. PNA-ongoing by chest CT 8. COPD 9. Hypothyroid 10.DM-labile BS 11.Neck mass? with dysphagia 12. carotid stenosis Consultation Date/Type/Reason Admit Date/Time Jan 06, 2017 at 10:49 Type of Consultation: cardiology Referring Provider: TAD HIGGINS NP 24 HR Interval Summary Free Text/Dictation NO acute events - pre-op w/up in progress ROS: No fever, no chills, no nausea, no vomiting, no diarrhea/constipation No recent weight changes No chest pain, no PND, no orthopnea No dizziness, blurred vision No thirst, no heat or cold intolerance Exam/Review of Systems Vital Signs Vitals Vital Signs Date Time Temp Pulse Resp B/P Pulse Ox O2 Delivery O2 Flow Rate FiO2 01/13/17 08:41 98.2 75 20 106/51 96 01/12/17 20:25 21 Intake and Output 01/12/17 01/12/17 01/13/17 15:00 23:00 07:00 Intake Total 1360 ml 950 ml Balance 1360 ml 950 ml Exam General: WN/WD/NAD, AOx 3 HEENT: Unicetric/atraumatic/EOMI ( follow commands) NECK: JVD elevated, no thyromegaly Lymph: no lymphadenopathy HEART: regular with no S3, II/ systolic murmur at apex, PMI L LUNGS: Coarse sounds ABD: soft, NT, ND, +BS : Intact Neuro: non focal SKIN: chronic changes EXT: trace edema Results Result Diagram: 01/13/17 0456 01/13/17 0456 Results 24 hrs Laboratory Tests Test 01/12/17 13:29 01/12/17 17:29 01/12/17 20:14 01/12/17 21:08 Bedside Glucose 136 116 182 198 Test 01/13/17 02:07 01/13/17 04:56 01/13/17 07:50 01/13/17 11:55 Bedside Glucose 212 340 H 237 H White Blood Count 5.6 # Red Blood Count 3.77 L Hemoglobin 11.7 L Hematocrit 35.9 L Mean Corpuscular Volume 95.2 Mean Corpuscular Hemoglobin 31.0 Mean Corpuscular Hemoglobin Concent 32.6 Red Cell Distribution Width 16.2 H Platelet Count 344 Mean Platelet Volume 9.1 Neutrophils % 44.2 Lymphocytes % 31.1 Monocytes % 8.0 Eosinophils % 14.7 H Basophils % 1.8 Nucleated Red Blood Cells % 0.0 Neutrophils # 2.5 Lymphocytes # 1.8 Monocytes # 0.5 Eosinophils # 0.8 H Basophils # 0.1 Nucleated Red Blood Cells # 0.0 Sodium Level 139 Potassium Level 4.8 Chloride Level 97 Carbon Dioxide Level 31 Anion Gap 16 Blood Urea Nitrogen 10 Creatinine 0.48 Glucose Level 261 H Calcium Level 9.4 Medications Medications Current Medications Ondansetron HCl (Zofran Inj) 4 mg Q6H PRN IV NAUSEA AND/OR VOMITING; Start at 11:30 Acetaminophen (Tylenol Tab) 650 mg Q6H PRN PO PAIN LEVEL 1-3 OR FEVER; Start at 11:30 Acetaminophen (Tylenol Supp) 650 mg Q6H PRN [place] PAIN LEVEL 1-3 OR FEVER; Start 01/06/17 at 11:30 Heparin Sodium (Porcine) (Heparin (5000 Units/0.5 ml)) 5,000 unit Q12 SC Last administered on 01/13/17 08:33; Admin Dose 5,000 UNIT; Start 01/06/17 at 21:00 Alendronate Sodium (Fosamax) 70 mg Q7D PO Last administered on 01/06/17 14:00 ; Admin Dose 70 MG; Start 01/06/17 at 14:00 Aspirin (Halfprin) 81 mg DAILY PO Last administered on 01/13/17 08:25; Admin Dose 81 MG; Start 01/07/17 at 09:00 Atorvastatin Calcium (Lipitor) 20 mg HS PO Last administered on 01/12/17 21:02 ; Admin Dose 20 MG; Start 01/06/17 at 21:00 Duloxetine HCl (Cymbalta) 20 mg DAILY PO Last administered on 01/13/17 08:25; Admin Dose 20 MG; Start 01/07/17 at 09:00 Gabapentin (Neurontin) 300 mg TID PO Last administered on 01/13/17 12:08; Admin Dose 300 MG; Start 01/06/17 at 13:00 Metoprolol Tartrate (Lopressor) 12.5 mg BID PO ; Start 01/06/17 at 21:00; Status Future Hold Ticagrelor (Brilinta) 90 mg BID PO Last administered on 01/13/17 08:25; Admin Dose 90 MG; Start 01/06/17 at 21:00; Status Future hold Diagnostic Test (Pha) (Accu-Chek) 1 ea 02 XX ; Start 01/07/17 at 02:00 Diagnostic Test (Pha) (Accu-Chek) 1 ea 02 XX ; Start 01/07/17 at 02:00 Furosemide (Lasix) 20 mg DAILY PO ; Start 01/07/17 at 09:00; Status Future Hold Bisacodyl (Dulcolax Supp) 10 mg DAILY PRN [place] CONSTIPATION; Start 01/06/17 at 11 :30 Guaifenesin (Robitussin Liquid Cup) 100 mg Q6H PRN PO COUGH Last administered on 01/08/17 07:54; Admin Dose 100 MG; Start 01/06/17 at 11:30 Levothyroxine Sodium (Synthroid) 112 mcg DAILY@06 PO Last administered on 06:07; Admin Dose 112 MCG; Start 01/07/17 at 06:00 Lisinopril (Zestril) 2.5 mg DAILY PO ; Start 01/07/17 at 09:00 Polyethylene Glycol (Miralax) 17 gm DAILY PO Last administered on 01/07/17 08: 24; Admin Dose 17 GM; Start 01/07/17 at 09:00 Senna (Senokot) 2 tab HS PO Last administered on 01/12/17 21:02; Admin Dose 2 TAB; Start 01/06/17 at 21:00 Miscellaneous Information 1 ea NOTE XX ; Start 01/06/17 at 12:00 Glucose (Glutose) 15 gm Q15M PRN PO DECREASED GLUCOSE; Start 01/06/17 at 12:00 Glucose (Glutose) 22.5 gm Q15M PRN PO DECREASED GLUCOSE Last administered on 03:34; Admin Dose 22.5 GM; Start 01/06/17 at 12:00 Dextrose (D50w Syringe) 25 ml Q15M PRN IV DECREASED GLUCOSE; Start 01/06/17 at 12:00 Dextrose (D50w Syringe) 50 ml Q15M PRN IV DECREASED GLUCOSE; Start 01/06/17 at 12:00 Glucagon (Glucagen) 1 mg Q15M PRN IM DECREASED GLUCOSE; Start 01/06/17 at 12:00 Glucose (Glutose) 15 gm Q15M PRN BUCCAL DECREASED GLUCOSE Last administered on 01/10/17 07:07; Admin Dose 15 GM; Start 01/06/17 at 12:00 Insulin Glargine (Lantus) 10 unit DAILY@20 SC Last administered on 01/12/17 20 :15; Admin Dose 10 UNIT; Start 01/12/17 at 20:00 ARTIE MARADIAGA MD Jan 13, 2017 12:18
--- NOTE | 2017-01-13 12:29 | PN ---
Date/Time of Note Date/Time of Note DATE: 01/13/17 TIME: 12:28 Assessment/Plan Lines/Catheters [place] in Place (from [facility]): No Assessment/Plan Chief Complaint/Hosp Course Patient with coronary artery disease multiple other medical problem Carotid dupplex Occlusion of the right internal carotid artery just beyond its origin due to large plaque burden as seen on the prior MRI. Small plaques involving the visualized portion of the left internal carotid artery without evidence of flow acceleration to suggest a hemodynamically significant stenosis; less than 50% Concern for possible anterior tracheal mass below the vocal cords. This may require investigation prior to coronary artery bypass graft surgery. ENT is recommending bronchoscopy with biopsy first because the mass appears to be in the trachea-this was discussed with pulmonary team today. Plan for coronary artery bypass grafting when cleared by ENT Patient is at very high risk of having surgery secondary to significant comorbidities including carotid occlusion Risks benefits complications alternative therapies explained to the patient Will discuss with Dr. Adames Discussed with Dr. Sanz Problems: Subjective 24 Hr Interval Summary Constitutional: improved Pain Control: mild Exam/Review of Systems Vital Signs Vitals Vital Signs Date Time Temp Pulse Resp B/P Pulse Ox O2 Delivery O2 Flow Rate FiO2 01/13/17 08:41 98.2 75 20 106/51 96 01/12/17 20:25 21 Intake and Output 01/12/17 01/12/17 01/13/17 15:00 23:00 07:00 Intake Total 1360 ml 950 ml Balance 1360 ml 950 ml Exam Eyes: EOMI, nl conjunctiva, nl lids, nl sclera ENMT: mucosa pink and moist, nl external ears & nose, nl lips & teeth, nl nasal mucosa & septum Neck: non-tender, supple Respiratory: clear to auscultation, normal air movement Cardiovascular: nl pulses, regular rate and rhythm Results Result Diagram: 01/13/17 0456 01/13/17 0456 CHELA ALVARENGA MD Jan 13, 2017 12:29
[2017-01-13] MEDS: ALENDRONATE 70 MG TAB PO SCH (14:47)
--- NOTE | 2017-01-13 15:49 | PN ---
Date/Time of Note Date/Time of Note DATE: 01/13/17 TIME: 15:47 Assessment/Plan VTE Prophylaxis VTE Prophylaxis Intervention: heparin Lines/Catheters Urinary Cath still in place: No Assessment/Plan Chief Complaint/Hosp Course Assessment/Plan: 56 yo F with poorly controlled DM2 admitted for NSTEMI in setting DKA. Found to have multivessel CAD. Awaiting CABG. Also with incidental finding of L sided subglotting lesion 1. multivessel CAD, recent NSTEMI, ICM with EF <25%. CABG pending, date TBD, although according to CTS patient is at very high risk of having surgery secondary to significant comorbidities including carotid occlusion, specifically occlusion of the right internal carotid artery just beyond its origin due to large plaque burden as seen on the prior MRI. -cont current cardiac meds -bb/lasix on hold for orthostasis which was still present yesterday 2. L subglottic lesion: ENT has seen patient but no note in chart -per discussion with hospitalist team last week, they spoke with ENT doctor. ENT is recommending bronchoscopy with biopsy first because the mass appears to be in the trachea-this was discussed with pulmonary team. -Follow-up recommendations from process consultant teams, specifically regarding any possible bronchoscopy. 3. Severe obstructive and restrictive pulmonary disease. Status post PFTs -Continue bronchodilators. 4. Type II diabetes mellitus -sugars in the last 24 hours slightly improved, but still elevated in the morning. Last A1c December 10 was 9.2. -Continue current dose of short acting insulin, will increase Lantus today Lantus, and continue sliding scale, monitor fingerstick 5. Hypothyroidism. -On Synthroid. 6. Chronic anemia. H&H stable. Will monitor. 7. Significant deconditioning Continue with physical therapy as tolerated. DVT prophylaxis: Heparin Problems: Subjective 24 Hr Interval Summary Free Text/Dictation Patient seen by cardiology and cardiothoracic surgery team today. Complaining of some left upper extremity pain. Otherwise no acute events overnight. Work with physical therapy today. Exam/Review of Systems Vital Signs Vitals Vital Signs Date Time Temp Pulse Resp B/P Pulse Ox O2 Delivery O2 Flow Rate FiO2 01/13/17 14:00 98.6 88 18 92/53 96 01/12/17 20:25 21 Intake and Output 01/12/17 01/12/17 01/13/17 15:00 23:00 07:00 Intake Total 1360 ml 950 ml Balance 1360 ml 950 ml Exam Lying in bed, alert, no acute distress no mrg lungs clear abd soft no rashes No focal deficits Left upper extremity tenderness to palpation in cubital area Results Result Diagram: 01/13/17 0456 01/13/17 0456 Results 24 hrs Laboratory Tests Test 01/12/17 17:29 01/12/17 20:14 01/12/17 21:08 01/13/17 02:07 Bedside Glucose 116 182 198 212 Test 01/13/17 04:56 01/13/17 07:50 01/13/17 11:55 White Blood Count 5.6 # Red Blood Count 3.77 L Hemoglobin 11.7 L Hematocrit 35.9 L Mean Corpuscular Volume 95.2 Mean Corpuscular Hemoglobin 31.0 Mean Corpuscular Hemoglobin Concent 32.6 Red Cell Distribution Width 16.2 H Platelet Count 344 Mean Platelet Volume 9.1 Neutrophils % 44.2 Lymphocytes % 31.1 Monocytes % 8.0 Eosinophils % 14.7 H Basophils % 1.8 Nucleated Red Blood Cells % 0.0 Neutrophils # 2.5 Lymphocytes # 1.8 Monocytes # 0.5 Eosinophils # 0.8 H Basophils # 0.1 Nucleated Red Blood Cells # 0.0 Sodium Level 139 Potassium Level 4.8 Chloride Level 97 Carbon Dioxide Level 31 Anion Gap 16 Blood Urea Nitrogen 10 Creatinine 0.48 Glucose Level 261 H Calcium Level 9.4 Bedside Glucose 340 H 237 H Medications Medications Current Medications Ondansetron HCl (Zofran Inj) 4 mg Q6H PRN IV NAUSEA AND/OR VOMITING; Start at 11:30 Acetaminophen (Tylenol Tab) 650 mg Q6H PRN PO PAIN LEVEL 1-3 OR FEVER; Start at 11:30 Acetaminophen (Tylenol Supp) 650 mg Q6H PRN [place] PAIN LEVEL 1-3 OR FEVER; Start 01/06/17 at 11:30 Heparin Sodium (Porcine) (Heparin (5000 Units/0.5 ml)) 5,000 unit Q12 SC Last administered on 01/13/17 08:33; Admin Dose 5,000 UNIT; Start 01/06/17 at 21:00 Alendronate Sodium (Fosamax) 70 mg Q7D PO Last administered on 01/13/17 14:47; Admin Dose 70 MG; Start 01/06/17 at 14:00 Aspirin (Halfprin) 81 mg DAILY PO Last administered on 01/13/17 08:25; Admin Dose 81 MG; Start 01/07/17 at 09:00 Atorvastatin Calcium (Lipitor) 20 mg HS PO Last administered on 01/12/17 21:02 ; Admin Dose 20 MG; Start 01/06/17 at 21:00 Duloxetine HCl (Cymbalta) 20 mg DAILY PO Last administered on 01/13/17 08:25; Admin Dose 20 MG; Start 01/07/17 at 09:00 Gabapentin (Neurontin) 300 mg TID PO Last administered on 01/13/17 12:08; Admin Dose 300 MG; Start 01/06/17 at 13:00 Metoprolol Tartrate (Lopressor) 12.5 mg BID PO ; Start 01/06/17 at 21:00; Status Future Hold Ticagrelor (Brilinta) 90 mg BID PO Last administered on 01/13/17 08:25; Admin Dose 90 MG; Start 01/06/17 at 21:00; Status Future hold Diagnostic Test (Pha) (Accu-Chek) 1 ea 02 XX ; Start 01/07/17 at 02:00 Diagnostic Test (Pha) (Accu-Chek) 1 ea 02 XX ; Start 01/07/17 at 02:00 Furosemide (Lasix) 20 mg DAILY PO ; Start 01/07/17 at 09:00; Status Future Hold Bisacodyl (Dulcolax Supp) 10 mg DAILY PRN [place] CONSTIPATION; Start 01/06/17 at 11 :30 Guaifenesin (Robitussin Liquid Cup) 100 mg Q6H PRN PO COUGH Last administered on 01/08/17 07:54; Admin Dose 100 MG; Start 01/06/17 at 11:30 Levothyroxine Sodium (Synthroid) 112 mcg DAILY@06 PO Last administered on 06:07; Admin Dose 112 MCG; Start 01/07/17 at 06:00 Lisinopril (Zestril) 2.5 mg DAILY PO ; Start 01/07/17 at 09:00 Polyethylene Glycol (Miralax) 17 gm DAILY PO Last administered on 01/07/17 08: 24; Admin Dose 17 GM; Start 01/07/17 at 09:00 Senna (Senokot) 2 tab HS PO Last administered on 01/12/17 21:02; Admin Dose 2 TAB; Start 01/06/17 at 21:00 Miscellaneous Information 1 ea NOTE XX ; Start 01/06/17 at 12:00 Glucose (Glutose) 15 gm Q15M PRN PO DECREASED GLUCOSE; Start 01/06/17 at 12:00 Glucose (Glutose) 22.5 gm Q15M PRN PO DECREASED GLUCOSE Last administered on 03:34; Admin Dose 22.5 GM; Start 01/06/17 at 12:00 Dextrose (D50w Syringe) 25 ml Q15M PRN IV DECREASED GLUCOSE; Start 01/06/17 at 12:00 Dextrose (D50w Syringe) 50 ml Q15M PRN IV DECREASED GLUCOSE; Start 01/06/17 at 12:00 Glucagon (Glucagen) 1 mg Q15M PRN IM DECREASED GLUCOSE; Start 01/06/17 at 12:00 Glucose (Glutose) 15 gm Q15M PRN BUCCAL DECREASED GLUCOSE Last administered on 01/10/17 07:07; Admin Dose 15 GM; Start 01/06/17 at 12:00 Insulin Glargine (Lantus) 20 unit DAILY@20 SC ; Start 01/13/17 at 20:00 TANIYA OLMSTEAD Jan 13, 2017 15:49
--- NOTE | 2017-01-13 18:28 | RADRPT ---
PROCEDURE: US left upper extremity veins. CLINICAL INDICATION: Left arm pain and swelling. TECHNIQUE: Multiple longitudinal and transverse images of the left upper extremity venous tree was obtained with wayne scale, pulsed Doppler, and color Doppler imaging. COMPARISON: None available FINDINGS: The left internal jugular, subclavian, axillary, brachial, basilic, cephalic, radial, and ulnar vein s are patent. There is normal flow with augmentation and compressibility throughout. There is no th rombus or occlusion. IMPRESSION: 1. Normal venous system of the left upper extremity. No evidence of thrombus or occlusion. RPTAT: QQ .Alonso Brooks MD, MD Date Time Electronically viewed and signed by .Alonso Brooks MD, on 01/13/2017 18:27 .R/
[2017-01-13] MEDS: SENNA TAB PO SCH (20:17)
[2017-01-13] MEDS: ATORVASTATIN 20 MG TAB PO SCH (20:17)
[2017-01-13] MEDS: INSULIN GLARGINE [LANtus] 3 ML PEN SC SCH (20:21)
[2017-01-14] MEDS: ACCU-CHEK XX SCH ×2 (01:46)
[2017-01-14 02:58] VITALS: BP 99/54; RESP 18
[2017-01-14] MEDS: LEVOTHYROXINE 112 MCG TAB PO SCH (05:36)
[2017-01-14 05:59] LABS: BASOPHIL # 0.1 10^3/ul (0.0-0.1); BASOPHILS % 1.2 % (0.0-2.0); EOSINOPHILS # 0.9 10^3/ul (0.0-0.5); EOSINOPHILS % 13.8 % (0.0-7.0); HEMATOCRIT 36.7 % (37.0-47.0); HEMOGLOBIN 11.6 g/dl (12.0-16.0); LYMPHOCYTES # 1.8 10^3/ul (0.8-2.9); LYMPHOCYTES % 26.9 % (15.0-51.0); MEAN CORPUSCULAR HEMOGLOBIN 30.4 pg (29.0-33.0); MEAN CORPUSCULAR HGB CONC 31.6 g/dl (32.0-37.0); MEAN CORPUSCULAR VOLUME 96.1 fl (82.0-101.0); MEAN PLATELET VOLUME 8.9 fl (7.4-10.4); MONOCYTE # 0.5 10^3/ul (0.3-0.9); MONOCYTES % 7.5 % (0.0-11.0); NEUTROPHIL # 3.4 10^3/ul (1.6-7.5); NEUTROPHILS % 50.3 % (39.0-77.0); PLATELET COUNT 348 10^3/UL (140-415); RED BLOOD COUNT 3.82 10^6/ul (4.20-5.40); RED CELL DISTRIBUTION WIDTH 16.8 % (11.5-14.5); WHITE BLOOD COUNT 6.7 10^3/ul (4.8-10.8)
[2017-01-14 06:48] LABS: MAGNESIUM 1.8 mg/dl (1.7-2.5); PHOSPHORUS 5.5 mg/dl (2.5-4.9)
[2017-01-14 06:53] LABS: CALCIUM 9.6 mg/dl (8.4-10.2); CREATININE 0.54 mg/dl (0.44-1.00); POTASSIUM 4.8 mmol/L (3.5-5.1)
[2017-01-14] MEDS: INSULIN ASPART [NOVOLOG] 3 ML PEN SC SCH ×7 (08:00→20:54)
[2017-01-14] MEDS: GABAPENTIN 300 MG CAP PO SCH ×3 (08:04→20:56)
[2017-01-14] MEDS: ASPIRIN (EC) 81 MG TAB PO SCH (08:04)
[2017-01-14] MEDS: DULOXETINE 20 MG CAP DR PO SCH (08:05)
[2017-01-14] MEDS: TICAGRELOR 90 MG TABLET PO SCH ×2 (08:07→20:58)
[2017-01-14] MEDS: HEPARIN 5,000 UNIT/0.5 ML VIAL SC SCH ×2 (08:08→20:58)
[2017-01-14] MEDS: LISINOPRIL 5 MG TAB PO SCH (08:08)
[2017-01-14] MEDS: POLYETHYLENE GLYCOL 17 GM PACKET PO SCH (08:09)
[2017-01-14 08:20] VITALS: BP 93/50; RESP 16
--- NOTE | 2017-01-14 13:57 | CONS ---
Date/Time of Note Date/Time of Note DATE: 01/14/17 TIME: 13:54 Assessment/Plan Assessment/Plan Chief Complaint/Hosp Course IMP: 1.NSTEMI-peak trop>60 Now dowtrended significantly s/p LHC with patent RCA stents and high grade disease of LAD/LCX with small caliber vessels and recc for CABG. Still ongoing surgical eval and question date of possible surgery? 2.cardiomyopathy-LVEF 40-45 BY OSH echo. 25% by echo read here 3.Hypotension-borderline. Hold lasix as tolerated 4.resp failure s/p extubation requiring PRN BIPAP which has now improved and not requiring further at this time 5.anemia 6. AMS/encephalopathy 7. PNA-ongoing by chest CT 8. COPD 9. Hypothyroid 10.DM-labile BS 11.Neck mass? with dysphagia. ENT recc bronchoscopy and bx 12. 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 which is awaiting bronchoscopy and BX -Continue statin -Smoking cessation -Follow BS closely and adjust insulin therapy as necessary -Continue abx's and f/u cx data -Continue bronchodilators -CT surgical eval ongoing and have discussed with daughter/patient who are agreeable and CT surgery following with surgery intially scheduled for today but postponed due to need for eval of neck mass first Problems: Consultation Date/Type/Reason Admit Date/Time Jan 06, 2017 at 10:49 Initial Consult Date 01/06/2017 Type of Consultation: cardiology Reason for Consultation nstemi Referring Provider: TAD HIGGINS NP Exam/Review of Systems Vital Signs Vitals Vital Signs Date Time Temp Pulse Resp B/P Pulse Ox O2 Delivery O2 Flow Rate FiO2 01/14/17 08:20 97.9 82 16 93/50 97 01/12/17 20:25 21 Intake and Output 01/13/17 01/13/17 01/14/17 15:00 23:00 07:00 Intake Total 1400 ml 550 ml Balance 1400 ml 550 ml Exam Review of Systems: CONSTITUTIONAL: No fevers, chills. PULMONARY: No sob CARDIOVASCULAR: No chest pain/palpitations GASTROINTESTINAL: No nausea/vomiting. GENITOURINARY: No hematuria/dysuria. MUSCULOSKELETAL: No myagias/arthalgias. PSYCHIATRIC: The patient denies depression. NEUROLOGIC: No weakness Constitutional: alert, oriented Psych: no complaints Head: normocephalic ENMT: mucosa pink and moist Neck: jvd (8 cm water), supple Respiratory: clear to auscultation Cardiovascular: regular rate and rhythm Gastrointestinal: non-tender, soft Musculoskeletal: muscle weakness (generalized) Extremities: edema (none) 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: other (No focal deficits) Results Result Diagram: 01/14/17 0536 01/14/17 0536 Results 24 hrs Laboratory Tests Test 01/13/17 17:22 01/13/17 20:15 01/14/17 05:36 01/14/17 08:04 Bedside Glucose 90 128 128 White Blood Count 6.7 Red Blood Count 3.82 L Hemoglobin 11.6 L Hematocrit 36.7 L Mean Corpuscular Volume 96.1 Mean Corpuscular Hemoglobin 30.4 Mean Corpuscular Hemoglobin Concent 31.6 L Red Cell Distribution Width 16.8 H Platelet Count 348 Mean Platelet Volume 8.9 Neutrophils % 50.3 Lymphocytes % 26.9 Monocytes % 7.5 Eosinophils % 13.8 H Basophils % 1.2 Nucleated Red Blood Cells % 0.0 Neutrophils # 3.4 Lymphocytes # 1.8 Monocytes # 0.5 Eosinophils # 0.9 H Basophils # 0.1 Nucleated Red Blood Cells # 0.0 Sodium Level 142 Potassium Level 4.8 Chloride Level 99 Carbon Dioxide Level 31 Anion Gap 17 H Blood Urea Nitrogen 11 Creatinine 0.54 Glucose Level 114 # Calcium Level 9.6 Phosphorus Level 5.5 H Magnesium Level 1.8 Test 01/14/17 11:44 Bedside Glucose 218 Medications Medications Current Medications Ondansetron HCl (Zofran Inj) 4 mg Q6H PRN IV NAUSEA AND/OR VOMITING; Start at 11:30 Acetaminophen (Tylenol Tab) 650 mg Q6H PRN PO PAIN LEVEL 1-3 OR FEVER; Start at 11:30 Acetaminophen (Tylenol Supp) 650 mg Q6H PRN [place] PAIN LEVEL 1-3 OR FEVER; Start 01/06/17 at 11:30 Heparin Sodium (Porcine) (Heparin (5000 Units/0.5 ml)) 5,000 unit Q12 SC Last administered on 01/14/17 08:08; Admin Dose 5,000 UNIT; Start 01/06/17 at 21:00 Alendronate Sodium (Fosamax) 70 mg Q7D PO Last administered on 01/13/17 14:47; Admin Dose 70 MG; Start 01/06/17 at 14:00 Aspirin (Halfprin) 81 mg DAILY PO Last administered on 01/14/17 08:04; Admin Dose 81 MG; Start 01/07/17 at 09:00 Atorvastatin Calcium (Lipitor) 20 mg HS PO Last administered on 01/13/17 20:17 ; Admin Dose 20 MG; Start 01/06/17 at 21:00 Duloxetine HCl (Cymbalta) 20 mg DAILY PO Last administered on 01/14/17 08:05; Admin Dose 20 MG; Start 01/07/17 at 09:00 Gabapentin (Neurontin) 300 mg TID PO Last administered on 01/14/17 13:08; Admin Dose 300 MG; Start 01/06/17 at 13:00 Metoprolol Tartrate (Lopressor) 12.5 mg BID PO ; Start 01/06/17 at 21:00; Status Future Hold Ticagrelor (Brilinta) 90 mg BID PO Last administered on 01/14/17 08:07; Admin Dose 90 MG; Start 01/06/17 at 21:00; Status Future hold Diagnostic Test (Pha) (Accu-Chek) 1 ea 02 XX ; Start 01/07/17 at 02:00 Diagnostic Test (Pha) (Accu-Chek) 1 ea 02 XX ; Start 01/07/17 at 02:00 Furosemide (Lasix) 20 mg DAILY PO ; Start 01/07/17 at 09:00; Status Future Hold Bisacodyl (Dulcolax Supp) 10 mg DAILY PRN [place] CONSTIPATION; Start 01/06/17 at 11 :30 Guaifenesin (Robitussin Liquid Cup) 100 mg Q6H PRN PO COUGH Last administered on 01/08/17 07:54; Admin Dose 100 MG; Start 01/06/17 at 11:30 Levothyroxine Sodium (Synthroid) 112 mcg DAILY@06 PO Last administered on 05:36; Admin Dose 112 MCG; Start 01/07/17 at 06:00 Lisinopril (Zestril) 2.5 mg DAILY PO ; Start 01/07/17 at 09:00 Polyethylene Glycol (Miralax) 17 gm DAILY PO Last administered on 01/07/17 08: 24; Admin Dose 17 GM; Start 01/07/17 at 09:00 Senna (Senokot) 2 tab HS PO Last administered on 01/13/17 20:17; Admin Dose 2 TAB; Start 01/06/17 at 21:00 Miscellaneous Information 1 ea NOTE XX ; Start 01/06/17 at 12:00 Glucose (Glutose) 15 gm Q15M PRN PO DECREASED GLUCOSE; Start 01/06/17 at 12:00 Glucose (Glutose) 22.5 gm Q15M PRN PO DECREASED GLUCOSE Last administered on 03:34; Admin Dose 22.5 GM; Start 01/06/17 at 12:00 Dextrose (D50w Syringe) 25 ml Q15M PRN IV DECREASED GLUCOSE; Start 01/06/17 at 12:00 Dextrose (D50w Syringe) 50 ml Q15M PRN IV DECREASED GLUCOSE; Start 01/06/17 at 12:00 Glucagon (Glucagen) 1 mg Q15M PRN IM DECREASED GLUCOSE; Start 01/06/17 at 12:00 Glucose (Glutose) 15 gm Q15M PRN BUCCAL DECREASED GLUCOSE Last administered on 01/10/17 07:07; Admin Dose 15 GM; Start 01/06/17 at 12:00 Insulin Glargine (Lantus) 20 unit DAILY@20 SC Last administered on 01/13/17 20: 21; Admin Dose 20 UNIT; Start 01/13/17 at 20:00 RHONDA PENA Jan 14, 2017 13:57
--- NOTE | 2017-01-14 14:19 | PN ---
Date/Time of Note Date/Time of Note DATE: 01/14/17 TIME: 14:15 Assessment/Plan VTE Prophylaxis VTE Prophylaxis Intervention: heparin Lines/Catheters Urinary Cath still in place: No Assessment/Plan Chief Complaint/Hosp Course Assessment/Plan: 56 yo F with poorly controlled DM2 admitted for NSTEMI in setting DKA. Found to have multivessel CAD. Awaiting CABG. Also with incidental finding of L sided subglottic lesion. 1. multivessel CAD, recent NSTEMI, ICM with EF <25%. CABG pending, date TBD, although according to CTS patient is at very high risk of having surgery secondary to significant comorbidities including carotid occlusion, specifically occlusion of the right internal carotid artery just beyond its origin due to large plaque burden as seen on the prior MRI. -cont current cardiac meds, follow-up CTS recommendations. -bb/lasix on hold for orthostasis 2. L subglottic lesion: ENT has seen patient but no note in chart -per discussion with hospitalist team last week, ENT doctor apparently evaluated patient, dictation still pending. ENT is recommending bronchoscopy with biopsy first because the mass appears to be in the trachea-this was discussed with pulmonary team. -Follow-up recommendations from training consultant teams, specifically regarding any possible bronchoscopy. 3. Severe obstructive and restrictive pulmonary disease. Status post PFTs -Continue bronchodilators. 4. Type II diabetes mellitus -sugars still elevated in the morning. Last documented A1c is from December 10 2016, it was 9.4 -Given patient's labile sugars, will get endocrinology consult -For now, continue current dose of short acting insulin, Lantus, and continue sliding scale, monitor fingerstick 5. Hypothyroidism. -Continue Synthroid. 6. Chronic anemia. H&H stable. Will monitor. 7. Significant deconditioning -Continue with physical therapy as tolerated. DVT prophylaxis: Heparin Problems: Subjective 24 Hr Interval Summary Free Text/Dictation Left upper extremity ultrasound was performed, negative for DVT. Patient seen by cardiology team today. No acute events overnight. Tolerating diet. Exam/Review of Systems Vital Signs Vitals Vital Signs Date Time Temp Pulse Resp B/P Pulse Ox O2 Delivery O2 Flow Rate FiO2 01/14/17 08:20 97.9 82 16 93/50 97 01/12/17 20:25 21 Intake and Output 01/13/17 01/13/17 01/14/17 15:00 23:00 07:00 Intake Total 1400 ml 550 ml Balance 1400 ml 550 ml Exam Lying in bed, alert, no acute distress no mrg lungs clear abd soft no rashes No focal deficits No lower extremity edema bilateral Results Result Diagram: 01/14/17 0536 01/14/17 0536 Results 24 hrs Laboratory Tests Test 01/13/17 17:22 01/13/17 20:15 01/14/17 05:36 01/14/17 08:04 Bedside Glucose 90 128 128 White Blood Count 6.7 Red Blood Count 3.82 L Hemoglobin 11.6 L Hematocrit 36.7 L Mean Corpuscular Volume 96.1 Mean Corpuscular Hemoglobin 30.4 Mean Corpuscular Hemoglobin Concent 31.6 L Red Cell Distribution Width 16.8 H Platelet Count 348 Mean Platelet Volume 8.9 Neutrophils % 50.3 Lymphocytes % 26.9 Monocytes % 7.5 Eosinophils % 13.8 H Basophils % 1.2 Nucleated Red Blood Cells % 0.0 Neutrophils # 3.4 Lymphocytes # 1.8 Monocytes # 0.5 Eosinophils # 0.9 H Basophils # 0.1 Nucleated Red Blood Cells # 0.0 Sodium Level 142 Potassium Level 4.8 Chloride Level 99 Carbon Dioxide Level 31 Anion Gap 17 H Blood Urea Nitrogen 11 Creatinine 0.54 Glucose Level 114 # Calcium Level 9.6 Phosphorus Level 5.5 H Magnesium Level 1.8 Test 01/14/17 11:44 Bedside Glucose 218 Medications Medications Current Medications Ondansetron HCl (Zofran Inj) 4 mg Q6H PRN IV NAUSEA AND/OR VOMITING; Start at 11:30 Acetaminophen (Tylenol Tab) 650 mg Q6H PRN PO PAIN LEVEL 1-3 OR FEVER; Start at 11:30 Acetaminophen (Tylenol Supp) 650 mg Q6H PRN [place] PAIN LEVEL 1-3 OR FEVER; Start 01/06/17 at 11:30 Heparin Sodium (Porcine) (Heparin (5000 Units/0.5 ml)) 5,000 unit Q12 SC Last administered on 01/14/17 08:08; Admin Dose 5,000 UNIT; Start 01/06/17 at 21:00 Alendronate Sodium (Fosamax) 70 mg Q7D PO Last administered on 01/13/17 14:47; Admin Dose 70 MG; Start 01/06/17 at 14:00 Aspirin (Halfprin) 81 mg DAILY PO Last administered on 01/14/17 08:04; Admin Dose 81 MG; Start 01/07/17 at 09:00 Atorvastatin Calcium (Lipitor) 20 mg HS PO Last administered on 01/13/17 20:17 ; Admin Dose 20 MG; Start 01/06/17 at 21:00 Duloxetine HCl (Cymbalta) 20 mg DAILY PO Last administered on 01/14/17 08:05; Admin Dose 20 MG; Start 01/07/17 at 09:00 Gabapentin (Neurontin) 300 mg TID PO Last administered on 01/14/17 13:08; Admin Dose 300 MG; Start 01/06/17 at 13:00 Metoprolol Tartrate (Lopressor) 12.5 mg BID PO ; Start 01/06/17 at 21:00; Status Future Hold Ticagrelor (Brilinta) 90 mg BID PO Last administered on 01/14/17 08:07; Admin Dose 90 MG; Start 01/06/17 at 21:00; Status Future hold Diagnostic Test (Pha) (Accu-Chek) 1 ea 02 XX ; Start 01/07/17 at 02:00 Diagnostic Test (Pha) (Accu-Chek) 1 ea 02 XX ; Start 01/07/17 at 02:00 Furosemide (Lasix) 20 mg DAILY PO ; Start 01/07/17 at 09:00; Status Future Hold Bisacodyl (Dulcolax Supp) 10 mg DAILY PRN [place] CONSTIPATION; Start 01/06/17 at 11 :30 Guaifenesin (Robitussin Liquid Cup) 100 mg Q6H PRN PO COUGH Last administered on 01/08/17 07:54; Admin Dose 100 MG; Start 01/06/17 at 11:30 Levothyroxine Sodium (Synthroid) 112 mcg DAILY@06 PO Last administered on 05:36; Admin Dose 112 MCG; Start 01/07/17 at 06:00 Lisinopril (Zestril) 2.5 mg DAILY PO ; Start 01/07/17 at 09:00 Polyethylene Glycol (Miralax) 17 gm DAILY PO Last administered on 01/07/17 08: 24; Admin Dose 17 GM; Start 01/07/17 at 09:00 Senna (Senokot) 2 tab HS PO Last administered on 01/13/17 20:17; Admin Dose 2 TAB; Start 01/06/17 at 21:00 Miscellaneous Information 1 ea NOTE XX ; Start 01/06/17 at 12:00 Glucose (Glutose) 15 gm Q15M PRN PO DECREASED GLUCOSE; Start 01/06/17 at 12:00 Glucose (Glutose) 22.5 gm Q15M PRN PO DECREASED GLUCOSE Last administered on 03:34; Admin Dose 22.5 GM; Start 01/06/17 at 12:00 Dextrose (D50w Syringe) 25 ml Q15M PRN IV DECREASED GLUCOSE; Start 01/06/17 at 12:00 Dextrose (D50w Syringe) 50 ml Q15M PRN IV DECREASED GLUCOSE; Start 01/06/17 at 12:00 Glucagon (Glucagen) 1 mg Q15M PRN IM DECREASED GLUCOSE; Start 01/06/17 at 12:00 Glucose (Glutose) 15 gm Q15M PRN BUCCAL DECREASED GLUCOSE Last administered on 01/10/17 07:07; Admin Dose 15 GM; Start 01/06/17 at 12:00 Insulin Glargine (Lantus) 20 unit DAILY@20 SC Last administered on 01/13/17 20: 21; Admin Dose 20 UNIT; Start 01/13/17 at 20:00 TANIYA OLMSTEAD Jan 14, 2017 14:19
--- NOTE | 2017-01-14 14:31 | CONS ---
Date/Time of Note Date/Time of Note DATE: 01/14/17 TIME: 14:29 Assessment/Plan Assessment/Plan Additional Assessment/Plan Assessment recommendations; 1. Patient admitted for acute MS and pulmonary edema with significant clinical improvement. Awaiting CABG surgery. 2. 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 3. 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 4. Cardiomyopathy. 5. COPD. Patient will need to have a bronchoscopy performed for further evaluation of subglottic mass. I will schedule the procedure for tomorrow morning. Consultation Date/Type/Reason Admit Date/Time Jan 06, 2017 at 10:49 Type of Consultation: Pulmonary Referring Provider: TAD HIGGINS NP 24 HR Interval Summary Free Text/Dictation Patient condition stable. Remains awake alert. Denies any shortness breath, chest pain, wheezing. General exam; middle-aged woman, awake alert currently in no distress. Exam/Review of Systems Vital Signs Vitals Vital Signs Date Time Temp Pulse Resp B/P Pulse Ox O2 Delivery O2 Flow Rate FiO2 01/14/17 08:20 97.9 82 16 93/50 97 01/12/17 20:25 21 Intake and Output 01/13/17 01/13/17 01/14/17 15:00 23:00 07:00 Intake Total 1400 ml 550 ml Balance 1400 ml 550 ml Exam HEENT exam; supple neck, no JVD. No lymphadenopathy. Midline trachea. No thyromegaly. Patient is edentulous. Chest exam; clear to auscultation. S1-S2 audible, no murmurs. Regular rhythm. Abdomen exam; soft, scaphoid. Nontender. No organomegaly. Bowel sounds audible. Extremity exam; no peripheral edema. No clubbing. Pulses 1+ bilaterally. PHARMACY TECH exam; no focal deficit. Results Result Diagram: 01/14/17 0536 01/14/17 0536 Results 24 hrs Laboratory Tests Test 01/13/17 17:22 01/13/17 20:15 01/14/17 05:36 01/14/17 08:04 Bedside Glucose 90 128 128 White Blood Count 6.7 Red Blood Count 3.82 L Hemoglobin 11.6 L Hematocrit 36.7 L Mean Corpuscular Volume 96.1 Mean Corpuscular Hemoglobin 30.4 Mean Corpuscular Hemoglobin Concent 31.6 L Red Cell Distribution Width 16.8 H Platelet Count 348 Mean Platelet Volume 8.9 Neutrophils % 50.3 Lymphocytes % 26.9 Monocytes % 7.5 Eosinophils % 13.8 H Basophils % 1.2 Nucleated Red Blood Cells % 0.0 Neutrophils # 3.4 Lymphocytes # 1.8 Monocytes # 0.5 Eosinophils # 0.9 H Basophils # 0.1 Nucleated Red Blood Cells # 0.0 Sodium Level 142 Potassium Level 4.8 Chloride Level 99 Carbon Dioxide Level 31 Anion Gap 17 H Blood Urea Nitrogen 11 Creatinine 0.54 Glucose Level 114 # Calcium Level 9.6 Phosphorus Level 5.5 H Magnesium Level 1.8 Test 01/14/17 11:44 Bedside Glucose 218 Medications Medications Current Medications Ondansetron HCl (Zofran Inj) 4 mg Q6H PRN IV NAUSEA AND/OR VOMITING; Start at 11:30 Acetaminophen (Tylenol Tab) 650 mg Q6H PRN PO PAIN LEVEL 1-3 OR FEVER; Start at 11:30 Acetaminophen (Tylenol Supp) 650 mg Q6H PRN [place] PAIN LEVEL 1-3 OR FEVER; Start 01/06/17 at 11:30 Heparin Sodium (Porcine) (Heparin (5000 Units/0.5 ml)) 5,000 unit Q12 SC Last administered on 01/14/17 08:08; Admin Dose 5,000 UNIT; Start 01/06/17 at 21:00 Alendronate Sodium (Fosamax) 70 mg Q7D PO Last administered on 01/13/17 14:47; Admin Dose 70 MG; Start 01/06/17 at 14:00 Aspirin (Halfprin) 81 mg DAILY PO Last administered on 01/14/17 08:04; Admin Dose 81 MG; Start 01/07/17 at 09:00 Atorvastatin Calcium (Lipitor) 20 mg HS PO Last administered on 01/13/17 20:17 ; Admin Dose 20 MG; Start 01/06/17 at 21:00 Duloxetine HCl (Cymbalta) 20 mg DAILY PO Last administered on 01/14/17 08:05; Admin Dose 20 MG; Start 01/07/17 at 09:00 Gabapentin (Neurontin) 300 mg TID PO Last administered on 01/14/17 13:08; Admin Dose 300 MG; Start 01/06/17 at 13:00 Metoprolol Tartrate (Lopressor) 12.5 mg BID PO ; Start 01/06/17 at 21:00; Status Future Hold Ticagrelor (Brilinta) 90 mg BID PO Last administered on 01/14/17 08:07; Admin Dose 90 MG; Start 01/06/17 at 21:00; Status Future hold Diagnostic Test (Pha) (Accu-Chek) 1 ea 02 XX ; Start 01/07/17 at 02:00 Diagnostic Test (Pha) (Accu-Chek) 1 ea 02 XX ; Start 01/07/17 at 02:00 Furosemide (Lasix) 20 mg DAILY PO ; Start 01/07/17 at 09:00; Status Future Hold Bisacodyl (Dulcolax Supp) 10 mg DAILY PRN [place] CONSTIPATION; Start 01/06/17 at 11 :30 Guaifenesin (Robitussin Liquid Cup) 100 mg Q6H PRN PO COUGH Last administered on 01/08/17 07:54; Admin Dose 100 MG; Start 01/06/17 at 11:30 Levothyroxine Sodium (Synthroid) 112 mcg DAILY@06 PO Last administered on 05:36; Admin Dose 112 MCG; Start 01/07/17 at 06:00 Lisinopril (Zestril) 2.5 mg DAILY PO ; Start 01/07/17 at 09:00 Polyethylene Glycol (Miralax) 17 gm DAILY PO Last administered on 01/07/17 08: 24; Admin Dose 17 GM; Start 01/07/17 at 09:00 Senna (Senokot) 2 tab HS PO Last administered on 01/13/17 20:17; Admin Dose 2 TAB; Start 01/06/17 at 21:00 Miscellaneous Information 1 ea NOTE XX ; Start 01/06/17 at 12:00 Glucose (Glutose) 15 gm Q15M PRN PO DECREASED GLUCOSE; Start 01/06/17 at 12:00 Glucose (Glutose) 22.5 gm Q15M PRN PO DECREASED GLUCOSE Last administered on 03:34; Admin Dose 22.5 GM; Start 01/06/17 at 12:00 Dextrose (D50w Syringe) 25 ml Q15M PRN IV DECREASED GLUCOSE; Start 01/06/17 at 12:00 Dextrose (D50w Syringe) 50 ml Q15M PRN IV DECREASED GLUCOSE; Start 01/06/17 at 12:00 Glucagon (Glucagen) 1 mg Q15M PRN IM DECREASED GLUCOSE; Start 01/06/17 at 12:00 Glucose (Glutose) 15 gm Q15M PRN BUCCAL DECREASED GLUCOSE Last administered on 01/10/17 07:07; Admin Dose 15 GM; Start 01/06/17 at 12:00 Insulin Glargine (Lantus) 20 unit DAILY@20 SC Last administered on 01/13/17 20: 21; Admin Dose 20 UNIT; Start 01/13/17 at 20:00 MARY MONTEMAYOR Jan 14, 2017 14:31
[2017-01-14 15:39] VITALS: BP 101/49; RESP 18
[2017-01-14 15:41] VITALS: BP 99/49
[2017-01-14 15:42] VITALS: BP 97/46
--- NOTE | 2017-01-14 18:50 | PN ---
Date/Time of Note Date/Time of Note DATE: 01/14/17 TIME: 18:50 Assessment/Plan Lines/Catheters IV Catheter Type (from Nrs): Saline Lock [facility] in Place (from Nrs): No Assessment/Plan Chief Complaint/Hosp Course Patient with coronary artery disease multiple other medical problem Carotid dupplex Occlusion of the right internal carotid artery just beyond its origin due to large plaque burden as seen on the prior MRI. Small plaques involving the visualized portion of the left internal carotid artery without evidence of flow acceleration to suggest a hemodynamically significant stenosis; less than 50% Concern for possible anterior tracheal mass below the vocal cords. This may require investigation prior to coronary artery bypass graft surgery. ENT is recommending bronchoscopy with biopsy first because the mass appears to be in the trachea-this was discussed with pulmonary team today. Plan for coronary artery bypass grafting when cleared by ENT Patient is at very high risk of having surgery secondary to significant comorbidities including carotid occlusion Risks benefits complications alternative therapies explained to the patient Will discuss with Dr. Adames Discussed with Dr. Sanz Problems: Subjective 24 Hr Interval Summary Constitutional: improved Pain Control: mild Exam/Review of Systems Vital Signs Vitals Vital Signs Date Time Temp Pulse Resp B/P Pulse Ox O2 Delivery O2 Flow Rate FiO2 01/14/17 15:42 97 97/46 01/14/17 15:39 97.8 18 96 01/12/17 20:25 21 Intake and Output 01/13/17 01/13/17 01/14/17 15:00 23:00 07:00 Intake Total 1400 ml 550 ml Balance 1400 ml 550 ml Exam ENMT: mucosa pink and moist, nl external ears & nose, nl lips & teeth, nl nasal mucosa & septum Neck: non-tender, supple Respiratory: clear to auscultation, normal air movement Cardiovascular: nl pulses, regular rate and rhythm Gastrointestinal: nl liver, spleen, non-tender, soft Results Result Diagram: 01/14/17 0536 01/14/17 0536 CHELA ALVARENGA MD Jan 14, 2017 18:50
[2017-01-14] MEDS: SENNA TAB PO SCH (20:56)
[2017-01-14] MEDS: ATORVASTATIN 40 MG TAB PO SCH (20:57)
[2017-01-14] MEDS: INSULIN GLARGINE [LANtus] 3 ML PEN SC SCH (20:57)
[2017-01-14 21:08] VITALS: BP 100/49; RESP 18
--- NOTE | 2017-01-14 21:09 | CONS ---
Date/Time of Note Date/Time of Note DATE: 01/14/17 TIME: 20:58 Assessment/Plan Assessment/Plan Problems: (1) Type 1 diabetes mellitus with diabetic polyneuropathy Status: Chronic Comment: Earlier today this service placed orders for lantus 20 qhs and Novolog 9 qac plus Alg 2 ISS. Pt. has T1DM and this is disease famous for wandering insulin requirement, inexplicable highs and inexplicable lows. We will do our best to try to stabilize glucose levels but it is not surprising that there has been no pattern to the blood glucose levels. This patient has many other medical problems and is going for bronchoscopy tomorrow to biopsy a laryngeal mass. Subsequently, assuming this mass is non-malignant, patient is supposed to have CABG. It should be noted that her orthostatic hypotension is likely at least partially attributable to diabetic autonomic neuropathy, coupled with her impaired systolic ejection fraction. There is no effective therapy for this. We will monitor BG levels daily and adjust insulin doses as seem appropriate. However, high degree of variance should be expected in the results. Consultation Date/Type/Reason Admit Date/Time Jan 06, 2017 at 10:49 Date of Consultation: Jan 14, 2017 Type of Consultation: Endocrinology Reason for Consultation T1DM Out Of Control (OOC) Constitutional: no complaints Eyes: no complaints ENT: no complaints Respiratory: no complaints Cardiovascular: no complaints Gastrointestinal: no complaints Genitourinary: no complaints Musculoskeletal: no complaints Skin: no complaints Neurologic: no complaints Psychological: no complaints Past Medical History Medical History: angina, congestive heart failure (systolic w/ EF 25%), coronary artery disease (w/ NSTEMI), diabetes (T1, multiple episodes of DKA), high cholesterol, hypothyroid, other (COPD) Past Surgical History Past Surgical Hx: other (c-sect, T&A) Family History Significant Family History: cancer (breast in sister, prostate in father) Social History b[place]igh WH[place]LOCK, in [place] since age 2, 1 y. 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 [employer], , 2 children Alcohol Use: none Smoking Status: Current every day smoker (1.5 ppd x 30 y) Drug Use: none Exam/Review of Systems Vital Signs Vitals Vital Signs Date Time Temp Pulse Resp B/P Pulse Ox O2 Delivery O2 Flow Rate FiO2 01/14/17 15:42 97 97/46 01/14/17 15:39 97.8 18 96 01/12/17 20:25 21 Intake and Output 01/13/17 01/13/17 01/14/17 15:00 23:00 07:00 Intake Total 1400 ml 550 ml Balance 1400 ml 550 ml Exam Constitutional: alert, oriented, well developed Psych: nl mood/affect, no complaints Eyes: EOMI, PERRL, nl conjunctiva, nl lids, nl sclera ENMT: mucosa pink and moist, nl external ears & nose Neck: non-tender, supple, No bruits, No masses, No thyromegaly Respiratory: clear to auscultation, normal air movement Cardiovascular: nl pulses, regular rate and rhythm, No edema, No murmurs/extra sounds, No rub Gastrointestinal: bowel sounds, nl liver, spleen, non-tender, soft, No mass, No rebound or guarding Musculoskeletal: nl extremities to inspection Extremities: normal pulses, No clubbing, No cyanosis, No edema 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: DIRECTOR OF ANESTHESIA SERVICES II-XII intact, nl mental status, nl speech, nl strength Additional Comments Bedside Glucose - 72 Hours Test 01/11/17 21:20 01/12/17 02:31 01/12/17 07:40 01/12/17 11:14 Bedside Glucose 465mg/dL (70-220) *H 206mg/dL (70-220) 306mg/dL (70-220) H 321mg/dL (70-220) H Test 01/12/17 13:29 01/12/17 17:29 01/12/17 20:14 01/12/17 21:08 Bedside Glucose 136mg/dL (70-220) 116mg/dL (70-220) 182mg/dL (70-220) 198mg/dL (70-220) Test 01/13/17 02:07 01/13/17 07:50 01/13/17 11:55 01/13/17 17:22 Bedside Glucose 212mg/dL (70-220) 340mg/dL (70-220) H 237mg/dL (70-220) H 90mg/dL (70-220) Test 01/13/17 20:15 01/14/17 08:04 01/14/17 11:44 01/14/17 17:24 Bedside Glucose 128mg/dL (70-220) 128mg/dL (70-220) 218mg/dL (70-220) 110mg/dL (70-220) Test 01/14/17 20:50 Bedside Glucose 89mg/dL (70-220) Results Result Diagram: 01/14/17 0536 01/14/17 0536 Results 24 hrs Laboratory Tests Test 01/14/17 05:36 01/14/17 08:04 01/14/17 11:44 01/14/17 17:24 White Blood Count 6.7 Red Blood Count 3.82 L Hemoglobin 11.6 L Hematocrit 36.7 L Mean Corpuscular Volume 96.1 Mean Corpuscular Hemoglobin 30.4 Mean Corpuscular Hemoglobin Concent 31.6 L Red Cell Distribution Width 16.8 H Platelet Count 348 Mean Platelet Volume 8.9 Neutrophils % 50.3 Lymphocytes % 26.9 Monocytes % 7.5 Eosinophils % 13.8 H Basophils % 1.2 Nucleated Red Blood Cells % 0.0 Neutrophils # 3.4 Lymphocytes # 1.8 Monocytes # 0.5 Eosinophils # 0.9 H Basophils # 0.1 Nucleated Red Blood Cells # 0.0 Sodium Level 142 Potassium Level 4.8 Chloride Level 99 Carbon Dioxide Level 31 Anion Gap 17 H Blood Urea Nitrogen 11 Creatinine 0.54 Glucose Level 114 # Calcium Level 9.6 Phosphorus Level 5.5 H Magnesium Level 1.8 Bedside Glucose 128 218 110 Test 01/14/17 18:30 Hepatitis B Surface Antigen NEGATIVE Hepatitis C Antibody NEGATIVE Medications Medications Current Medications Ondansetron HCl (Zofran Inj) 4 mg Q6H PRN IV NAUSEA AND/OR VOMITING; Start at 11:30 Acetaminophen (Tylenol Tab) 650 mg Q6H PRN PO PAIN LEVEL 1-3 OR FEVER; Start at 11:30 Acetaminophen (Tylenol Supp) 650 mg Q6H PRN [place] PAIN LEVEL 1-3 OR FEVER; Start 01/06/17 at 11:30 Heparin Sodium (Porcine) (Heparin (5000 Units/0.5 ml)) 5,000 unit Q12 SC Last administered on 01/14/17 08:08; Admin Dose 5,000 UNIT; Start 01/06/17 at 21:00 Alendronate Sodium (Fosamax) 70 mg Q7D PO Last administered on 01/13/17 14:47; Admin Dose 70 MG; Start 01/06/17 at 14:00 Aspirin (Halfprin) 81 mg DAILY PO Last administered on 01/14/17 08:04; Admin Dose 81 MG; Start 01/07/17 at 09:00 Duloxetine HCl (Cymbalta) 20 mg DAILY PO Last administered on 01/14/17 08:05; Admin Dose 20 MG; Start 01/07/17 at 09:00 Gabapentin (Neurontin) 300 mg TID PO Last administered on 01/14/17 13:08; Admin Dose 300 MG; Start 01/06/17 at 13:00 Metoprolol Tartrate (Lopressor) 12.5 mg BID PO ; Start 01/06/17 at 21:00; Status Future Hold Ticagrelor (Brilinta) 90 mg BID PO Last administered on 01/14/17 08:07; Admin Dose 90 MG; Start 01/06/17 at 21:00; Status Future hold Diagnostic Test (Pha) (Accu-Chek) 1 ea 02 XX ; Start 01/07/17 at 02:00 Diagnostic Test (Pha) (Accu-Chek) 1 ea 02 XX ; Start 01/07/17 at 02:00 Furosemide (Lasix) 20 mg DAILY PO ; Start 01/07/17 at 09:00; Status Future Hold Bisacodyl (Dulcolax Supp) 10 mg DAILY PRN [place] CONSTIPATION; Start 01/06/17 at 11 :30 Guaifenesin (Robitussin Liquid Cup) 100 mg Q6H PRN PO COUGH Last administered on 01/08/17 07:54; Admin Dose 100 MG; Start 01/06/17 at 11:30 Levothyroxine Sodium (Synthroid) 112 mcg DAILY@06 PO Last administered on 05:36; Admin Dose 112 MCG; Start 01/07/17 at 06:00 Lisinopril (Zestril) 2.5 mg DAILY PO ; Start 01/07/17 at 09:00 Polyethylene Glycol (Miralax) 17 gm DAILY PO Last administered on 01/07/17 08: 24; Admin Dose 17 GM; Start 01/07/17 at 09:00 Senna (Senokot) 2 tab HS PO Last administered on 01/13/17 20:17; Admin Dose 2 TAB; Start 01/06/17 at 21:00 Miscellaneous Information 1 ea NOTE XX ; Start 01/06/17 at 12:00 Glucose (Glutose) 15 gm Q15M PRN PO DECREASED GLUCOSE; Start 01/06/17 at 12:00 Glucose (Glutose) 22.5 gm Q15M PRN PO DECREASED GLUCOSE Last administered on 03:34; Admin Dose 22.5 GM; Start 01/06/17 at 12:00 Dextrose (D50w Syringe) 25 ml Q15M PRN IV DECREASED GLUCOSE; Start 01/06/17 at 12:00 Dextrose (D50w Syringe) 50 ml Q15M PRN IV DECREASED GLUCOSE; Start 01/06/17 at 12:00 Glucagon (Glucagen) 1 mg Q15M PRN IM DECREASED GLUCOSE; Start 01/06/17 at 12:00 Glucose (Glutose) 15 gm Q15M PRN BUCCAL DECREASED GLUCOSE Last administered on 01/10/17 07:07; Admin Dose 15 GM; Start 01/06/17 at 12:00 Insulin Glargine (Lantus) 20 unit DAILY@20 SC Last administered on 01/13/17 20: 21; Admin Dose 20 UNIT; Start 01/13/17 at 20:00 Atorvastatin Calcium (Lipitor) 40 mg HS PO ; Start 01/14/17 at 21:00 DARYL MYERS MD Jan 14, 2017 21:09
--- NOTE | 2017-01-14 23:56 | RADRPT ---
PROCEDURE: XR Chest. CLINICAL INDICATION: Preoperative evaluation. TECHNIQUE: Single AP portable chest. COMPARISON: 08/25/2016 Chest x-ray FINDINGS: The cardiomediastinal silhouette is within normal limits of size. Linear density in the right midlun g zone likely reflecting subsegmental atelectasis or scarring. The lungs are otherwise clear withou t pleural effusion or focal consolidation. No pneumothorax. The osseous structures and soft tissues are unremarkable. IMPRESSION: 1. No evidence for active cardiopulmonary disease. RPTAT:AAJJ Ronnie Paulino Physician Date Time Electronically viewed and signed by Physician Jina on 01/14/2017 23:56 RYAN/
[2017-01-15] MEDS: ACCU-CHEK XX SCH ×4 (02:00→20:05)
[2017-01-15 03:02] VITALS: BP 110/53; RESP 18
[2017-01-15] MEDS: LEVOTHYROXINE 112 MCG TAB PO SCH (05:16)
[2017-01-15 06:02] LABS: WHITE BLOOD COUNT 5.9 10^3/ul (4.8-10.8)
[2017-01-15 06:03] LABS: BASOPHIL # 0.1 10^3/ul (0.0-0.1); BASOPHILS % 1.2 % (0.0-2.0); EOSINOPHILS # 0.8 10^3/ul (0.0-0.5); EOSINOPHILS % 14.2 % (0.0-7.0); HEMATOCRIT 34.8 % (37.0-47.0); HEMOGLOBIN 11.2 g/dl (12.0-16.0); LYMPHOCYTES # 1.5 10^3/ul (0.8-2.9); LYMPHOCYTES % 25.4 % (15.0-51.0); MEAN CORPUSCULAR HGB CONC 32.2 g/dl (32.0-37.0); MEAN CORPUSCULAR VOLUME 96.4 fl (82.0-101.0); MEAN PLATELET VOLUME 9.2 fl (7.4-10.4); MONOCYTE # 0.5 10^3/ul (0.3-0.9); MONOCYTES % 8.8 % (0.0-11.0); NEUTROPHILS % 49.9 % (39.0-77.0); PLATELET COUNT 317 10^3/UL (140-415); RED BLOOD COUNT 3.61 10^6/ul (4.20-5.40); RED CELL DISTRIBUTION WIDTH 16.4 % (11.5-14.5)
[2017-01-15 06:46] LABS: T3 UPTAKE 30.9 % (23.5-40.5)
[2017-01-15 06:59] LABS: CREATININE 0.45 mg/dl (0.44-1.00); POTASSIUM 4.4 mmol/L (3.5-5.1); THYROID STIMULATING HORMONE 4.68 MIU/L (0.465-4.680)
[2017-01-15] MEDS: INSULIN ASPART [NOVOLOG] 3 ML PEN SC SCH ×9 (07:35→21:00)
[2017-01-15 08:00] VITALS: BP 107/52; RESP 19
[2017-01-15] MEDS ORDERED: GLYCOPYRROLATE 1 MG INJ ONE (08:09)
[2017-01-15] MEDS ORDERED: DEXAMETHASONE 4 MG/ML 1 ML INJ ONE (08:09)
[2017-01-15] MEDS ORDERED: ROCURONIUM 50 MG INJ ONE (08:09)
[2017-01-15] MEDS ORDERED: LIDOCAINE 2% (SDV) 5 ML INJ ONE (08:09)
[2017-01-15] MEDS ORDERED: PROPOFOL 20 ML ONE (08:09)
[2017-01-15] MEDS ORDERED: NEOSTIGMINE 3 MG/3 ML SYRINGE ONE (08:09)
[2017-01-15] MEDS ORDERED: MIDAZOLAM 1 MG/ML 2 ML INJ ONE (08:09)
[2017-01-15] MEDS ORDERED: ONDANSETRON 4 MG INJ ONE (08:09)
[2017-01-15] MEDS ORDERED: FENTAnyl 50 MCG/ML VIAL ONE (08:09)
[2017-01-15 08:14] VITALS: BP 107/52; PULSE 79; RESP 19
[2017-01-15] MEDS ORDERED: MIDAZOLAM 1 MG/ML 2 ML INJ IV PRN (08:30)
[2017-01-15] MEDS ORDERED: MEPERIDINE 25 MG INJ IV PRN (08:30)
[2017-01-15] MEDS ORDERED: HYDROmorphONE (0.2 MG/ML) 10ML SYG IV PRN ×3 (08:30)
[2017-01-15] MEDS ORDERED: EPHEDrine SULFATE 50 MG/5 ML SYG IV PRN (08:30)
[2017-01-15] MEDS ORDERED: ATROPINE 1 MG/10 ML SYRINGE IV PRN (08:30)
[2017-01-15] MEDS ORDERED: FENTAnyl 50 MCG/ML VIAL IV PRN ×2 (08:30)
[2017-01-15] MEDS ORDERED: LABETALOL HCL 20MG INJ IV PRN (08:30)
[2017-01-15] MEDS ORDERED: OXYCODONE/ACETAMINOPHEN (5/325) TAB PO PRN ×2 (08:30)
[2017-01-15] MEDS ORDERED: DIPHENHYDRAMINE 50 MG INJ IV PRN (08:30)
[2017-01-15] MEDS ORDERED: hydrALAzine 20 MG INJ IV PRN (08:30)
[2017-01-15] MEDS ORDERED: morphine (1 MG/ML) 10ML SYRINGE IV PRN ×3 (08:30)
[2017-01-15] MEDS ORDERED: ONDANSETRON 4 MG INJ IV PRN (08:30)
[2017-01-15] MEDS ORDERED: LIDOCAINE 2% (MDV) 20 ML INJ ONE ×2 (08:52→08:58)
--- NOTE | 2017-01-15 08:59 | CONS ---
Date/Time of Note Date/Time of Note DATE: 01/15/17 TIME: 08:57 Assessment/Plan Assessment/Plan Additional Assessment/Plan Assessment recommendations; 1. Patient admitted for CHF due to underlying coronary artery disease. Awaiting CABG surgery however incidental discovery made of subglottic tumor. CABG has been delayed for further workup regarding the tumor. Patient scheduled for bronchoscopy today. Procedure was discussed in detail with the patient,she has agreed and signed a consent form. Further recommendations to be made once bronchoscopy is done. Consultation Date/Type/Reason Admit Date/Time Jan 06, 2017 at 10:49 Type of Consultation: Pulmonary Referring Provider: TAD HIGGINS NP 24 HR Interval Summary Free Text/Dictation Patient condition stable. Denies any shortness of breath, chest pain, wheezing dysphagia or sputum production. Denies any wheezing. General exam; elderly woman, awake and alert, currently in no distress. Exam/Review of Systems Vital Signs Vitals Vital Signs Date Time Temp Pulse Resp B/P Pulse Ox O2 Delivery O2 Flow Rate FiO2 01/15/17 08:14 98.9 79 19 107/52 95 Room Air 01/12/17 20:25 21 Intake and Output 01/14/17 01/14/17 01/15/17 14:59 22:59 06:59 Intake Total 300 ml 480 ml Balance 300 ml 480 ml Exam HEENT exam; supple neck, no JVD. No lymphadenopathy. Midline trachea. No thyromegaly. Patient is edentulous. Chest exam; clear to auscultation. S1-S2 audible, no murmurs. Regular rhythm. Abdomen exam; soft, nontender. No organomegaly. Bowel sounds audible. Extremity exam; no peripheral edema. No clubbing. HISTOPATH TECH exam; no focal deficit. Results Result Diagram: 01/15/17 0450 01/15/17 0450 Results 24 hrs Laboratory Tests Test 01/14/17 11:44 01/14/17 17:24 01/14/17 18:30 01/14/17 20:50 Bedside Glucose 218 110 89 Hepatitis B Surface Antigen NEGATIVE Hepatitis C Antibody NEGATIVE Test 01/15/17 04:50 01/15/17 07:40 01/15/17 08:24 White Blood Count 5.9 Red Blood Count 3.61 L Hemoglobin 11.2 L Hematocrit 34.8 L Mean Corpuscular Volume 96.4 Mean Corpuscular Hemoglobin 31.0 Mean Corpuscular Hemoglobin Concent 32.2 Red Cell Distribution Width 16.4 H Platelet Count 317 Mean Platelet Volume 9.2 Neutrophils % 49.9 Lymphocytes % 25.4 Monocytes % 8.8 Eosinophils % 14.2 H Basophils % 1.2 Nucleated Red Blood Cells % 0.0 Neutrophils # 3.0 Lymphocytes # 1.5 Monocytes # 0.5 Eosinophils # 0.8 H Basophils # 0.1 Nucleated Red Blood Cells # 0.0 Sodium Level 139 Potassium Level 4.4 Chloride Level 99 Carbon Dioxide Level 28 Anion Gap 16 Blood Urea Nitrogen 9 Creatinine 0.45 Glucose Level 277 #H Calcium Level 9.0 Thyroid Stimulating Hormone (TSH) 4.680 Free Thyroxine Index 3.12 Thyroxine (T4) 10.1 Triiodothyronine (T3) Uptake 30.9 Bedside Glucose 306 H 253 H Medications Medications Current Medications Ondansetron HCl (Zofran Inj) 4 mg Q6H PRN IV NAUSEA AND/OR VOMITING; Start at 11:30 Acetaminophen (Tylenol Tab) 650 mg Q6H PRN PO PAIN LEVEL 1-3 OR FEVER; Start at 11:30 Acetaminophen (Tylenol Supp) 650 mg Q6H PRN [place] PAIN LEVEL 1-3 OR FEVER; Start 01/06/17 at 11:30 Heparin Sodium (Porcine) (Heparin (5000 Units/0.5 ml)) 5,000 unit Q12 SC Last administered on 01/14/17 20:58; Admin Dose 5,000 UNIT; Start 01/06/17 at 21:00 Alendronate Sodium (Fosamax) 70 mg Q7D PO Last administered on 01/13/17 14:47; Admin Dose 70 MG; Start 01/06/17 at 14:00 Aspirin (Halfprin) 81 mg DAILY PO Last administered on 01/14/17 08:04; Admin Dose 81 MG; Start 01/07/17 at 09:00 Duloxetine HCl (Cymbalta) 20 mg DAILY PO Last administered on 01/14/17 08:05; Admin Dose 20 MG; Start 01/07/17 at 09:00 Gabapentin (Neurontin) 300 mg TID PO Last administered on 01/14/17 20:56; Admin Dose 300 MG; Start 01/06/17 at 13:00 Metoprolol Tartrate (Lopressor) 12.5 mg BID PO ; Start 01/06/17 at 21:00; Status Future Hold Ticagrelor (Brilinta) 90 mg BID PO Last administered on 01/14/17 20:58; Admin Dose 90 MG; Start 01/06/17 at 21:00; Status Future hold Diagnostic Test (Pha) (Accu-Chek) 1 ea 02 XX ; Start 01/07/17 at 02:00 Diagnostic Test (Pha) (Accu-Chek) 1 ea 02 XX ; Start 01/07/17 at 02:00 Furosemide (Lasix) 20 mg DAILY PO ; Start 01/07/17 at 09:00; Status Future Hold Bisacodyl (Dulcolax Supp) 10 mg DAILY PRN [place] CONSTIPATION; Start 01/06/17 at 11 :30 Guaifenesin (Robitussin Liquid Cup) 100 mg Q6H PRN PO COUGH Last administered on 01/08/17 07:54; Admin Dose 100 MG; Start 01/06/17 at 11:30 Levothyroxine Sodium (Synthroid) 112 mcg DAILY@06 PO Last administered on 05:36; Admin Dose 112 MCG; Start 01/07/17 at 06:00 Lisinopril (Zestril) 2.5 mg DAILY PO ; Start 01/07/17 at 09:00 Polyethylene Glycol (Miralax) 17 gm DAILY PO Last administered on 01/07/17 08: 24; Admin Dose 17 GM; Start 01/07/17 at 09:00 Senna (Senokot) 2 tab HS PO Last administered on 01/14/17 20:56; Admin Dose 2 TAB; Start 01/06/17 at 21:00 Miscellaneous Information 1 ea NOTE XX ; Start 01/06/17 at 12:00 Glucose (Glutose) 15 gm Q15M PRN PO DECREASED GLUCOSE; Start 01/06/17 at 12:00 Glucose (Glutose) 22.5 gm Q15M PRN PO DECREASED GLUCOSE Last administered on 03:34; Admin Dose 22.5 GM; Start 01/06/17 at 12:00 Dextrose (D50w Syringe) 25 ml Q15M PRN IV DECREASED GLUCOSE; Start 01/06/17 at 12:00 Dextrose (D50w Syringe) 50 ml Q15M PRN IV DECREASED GLUCOSE; Start 01/06/17 at 12:00 Glucagon (Glucagen) 1 mg Q15M PRN IM DECREASED GLUCOSE; Start 01/06/17 at 12:00 Glucose (Glutose) 15 gm Q15M PRN BUCCAL DECREASED GLUCOSE Last administered on 01/10/17 07:07; Admin Dose 15 GM; Start 01/06/17 at 12:00 Insulin Glargine (Lantus) 20 unit DAILY@20 SC Last administered on 01/14/17 20: 57; Admin Dose 20 UNIT; Start 01/13/17 at 20:00 Atorvastatin Calcium (Lipitor) 40 mg HS PO Last administered on 01/14/17 20:57 ; Admin Dose 40 MG; Start 01/14/17 at 21:00 MARY MONTEMAYOR Jan 15, 2017 08:59
[2017-01-15] MEDS: POLYETHYLENE GLYCOL 17 GM PACKET PO SCH (09:00)
[2017-01-15] MEDS: LISINOPRIL 5 MG TAB PO SCH (09:00)
[2017-01-15] MEDS ORDERED: LIDOCAINE 4% (MPF) 5 ML INJ ONE (09:22)
[2017-01-15] MEDS ORDERED: LIDOCAINE 4% (MPF) 5 ML INJ HHN PRN (09:30)
[2017-01-15 09:55] VITALS: BP 103/70; PULSE 85; RESP 14
--- NOTE | 2017-01-15 10:04 | EN ---
Date/Time of Note Date/Time of Note DATE: 01/15/17 TIME: 09:58 Event Note Medicine Medicine Event Note Bronchoscopy procedure note. Indications; subglottic tumor as seen on CT imaging of the chest. 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 Without any evidence of tracheal obstruction. Start time 9:50 AM Finish time; 9:55 AM Patient was brought into the OR. Informed consent was obtained. Patient was sedated by the anesthesiologist with propofol intravenously. Topical anesthesia was achieved via spraying 2% lidocaine above the vocal cords. Bronchoscope was introduced via mouth. Pharynx was normal, left vocal cord was normal, right vocal cord was mildly inflamed. 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 Surface of the tumor is smooth. Because of hyperemic nature as well as smooth surface a biopsy was not attempted for fear of significant bleeding. The scope was introduced into the distal trachea which was normal, amanda was sharp and well defined, the scope was introduced into the right mainstem bronchus with evaluation of the right upper lobe, bronchus intermedius, superior segment of the lower lobe, middle, and lower lobes. There were all normal. The scope was introduced into the left mainstem bronchus with evaluation left upper lobe, lingula, superior segment of the lower lobe and lower lobes were all normal as well. The scope was then withdrawn. The procedure was well tolerated. Patient maintained stable cardiac rhythm, O2 saturations and heart rate. Further workup needs to be performed by an ENT surgeon. MARY MONTEMAYOR Jan 15, 2017 10:04
[2017-01-15] MEDS: DEXTROSE 50% 50 ML SYRINGE IV PRN (11:52)
--- NOTE | 2017-01-15 12:50 | CONS ---
Date/Time of Note Date/Time of Note DATE: 01/15/17 TIME: 12:48 Assessment/Plan Assessment/Plan Chief Complaint/Hosp Course IMP: 1.NSTEMI-peak trop>60 Now dowtrended significantly s/p LHC with patent RCA stents and high grade disease of LAD/LCX with small caliber vessels and recc for CABG. Still ongoing surgical eval and question date of possible surgery? 2.cardiomyopathy-LVEF 40-45 BY OSH echo. 25% by echo read here 3.Hypotension-borderline. Hold lasix as tolerated 4.resp failure s/p extubation requiring PRN BIPAP which has now improved and not requiring further at this time 5.anemia 6. AMS/encephalopathy 7. PNA-ongoing by chest CT 8. COPD 9. Hypothyroid 10.DM-labile BS 11.Neck mass? with dysphagia. Now s/p bronch with BX POD#0 12. 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 -Continue statin -Smoking cessation -Follow BS closely and adjust insulin therapy as necessary -Continue abx's and f/u cx data -Continue bronchodilators -CT surgical eval ongoing and have discussed with daughter/patient who are agreeable and CT surgery following with surgery intially scheduled for today but postponed due to need for eval of neck mass first -f/u results of path on BX of tracheal mass done today Problems: Consultation Date/Type/Reason Admit Date/Time Jan 06, 2017 at 10:49 Initial Consult Date 01/06/2017 Type of Consultation: cardiology Reason for Consultation Nstemi Referring Provider: TAD HIGGINS NP Exam/Review of Systems Vital Signs Vitals Vital Signs Date Time Temp Pulse Resp B/P Pulse Ox O2 Delivery O2 Flow Rate FiO2 01/15/17 10:12 98.2 01/15/17 09:55 85 14 103/70 96 Room Air 01/12/17 20:25 21 Intake and Output 01/14/17 01/14/17 01/15/17 15:00 23:00 07:00 Intake Total 300 ml 480 ml Balance 300 ml 480 ml Exam Review of Systems: CONSTITUTIONAL: No fevers, chills. PULMONARY: No sob CARDIOVASCULAR: No chest pain/palpitations GASTROINTESTINAL: No nausea/vomiting. GENITOURINARY: No hematuria/dysuria. MUSCULOSKELETAL: No myagias/arthalgias. PSYCHIATRIC: The patient denies depression. NEUROLOGIC: No weakness Constitutional: alert Psych: no complaints Head: normocephalic ENMT: mucosa pink and moist Neck: jvd (8-9 cm water), supple Respiratory: diminished breath sounds Cardiovascular: regular rate and rhythm Gastrointestinal: non-tender, soft Musculoskeletal: muscle weakness (mild generalized) Extremities: edema (none) 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: other (No focal deficits) Results Result Diagram: 01/15/17 0450 01/15/17 0450 Results 24 hrs Laboratory Tests Test 01/14/17 17:24 01/14/17 18:30 01/14/17 20:50 01/15/17 04:50 Bedside Glucose 110 89 Hepatitis B Surface Antigen NEGATIVE Hepatitis C Antibody NEGATIVE White Blood Count 5.9 Red Blood Count 3.61 L Hemoglobin 11.2 L Hematocrit 34.8 L Mean Corpuscular Volume 96.4 Mean Corpuscular Hemoglobin 31.0 Mean Corpuscular Hemoglobin Concent 32.2 Red Cell Distribution Width 16.4 H Platelet Count 317 Mean Platelet Volume 9.2 Neutrophils % 49.9 Lymphocytes % 25.4 Monocytes % 8.8 Eosinophils % 14.2 H Basophils % 1.2 Nucleated Red Blood Cells % 0.0 Neutrophils # 3.0 Lymphocytes # 1.5 Monocytes # 0.5 Eosinophils # 0.8 H Basophils # 0.1 Nucleated Red Blood Cells # 0.0 Sodium Level 139 Potassium Level 4.4 Chloride Level 99 Carbon Dioxide Level 28 Anion Gap 16 Blood Urea Nitrogen 9 Creatinine 0.45 Glucose Level 277 #H Calcium Level 9.0 Thyroid Stimulating Hormone (TSH) 4.680 Free Thyroxine Index 3.12 Thyroxine (T4) 10.1 Triiodothyronine (T3) Uptake 30.9 Test 01/15/17 07:40 01/15/17 08:24 01/15/17 11:50 01/15/17 12:12 Bedside Glucose 306 H 253 H 43 *L 190 Test 01/15/17 12:30 Bedside Glucose 250 H Medications Medications Current Medications Ondansetron HCl (Zofran Inj) 4 mg Q6H PRN IV NAUSEA AND/OR VOMITING; Start at 11:30 Acetaminophen (Tylenol Tab) 650 mg Q6H PRN PO PAIN LEVEL 1-3 OR FEVER; Start at 11:30 Acetaminophen (Tylenol Supp) 650 mg Q6H PRN [place] PAIN LEVEL 1-3 OR FEVER; Start 01/06/17 at 11:30 Heparin Sodium (Porcine) (Heparin (5000 Units/0.5 ml)) 5,000 unit Q12 SC Last administered on 01/14/17 20:58; Admin Dose 5,000 UNIT; Start 01/06/17 at 21:00 Alendronate Sodium (Fosamax) 70 mg Q7D PO Last administered on 01/13/17 14:47; Admin Dose 70 MG; Start 01/06/17 at 14:00 Aspirin (Halfprin) 81 mg DAILY PO Last administered on 01/14/17 08:04; Admin Dose 81 MG; Start 01/07/17 at 09:00 Duloxetine HCl (Cymbalta) 20 mg DAILY PO Last administered on 01/14/17 08:05; Admin Dose 20 MG; Start 01/07/17 at 09:00 Gabapentin (Neurontin) 300 mg TID PO Last administered on 01/14/17 20:56; Admin Dose 300 MG; Start 01/06/17 at 13:00 Metoprolol Tartrate (Lopressor) 12.5 mg BID PO ; Start 01/06/17 at 21:00; Status Future Hold Ticagrelor (Brilinta) 90 mg BID PO Last administered on 01/14/17 20:58; Admin Dose 90 MG; Start 01/06/17 at 21:00; Status Future hold Diagnostic Test (Pha) (Accu-Chek) 1 ea 02 XX ; Start 01/07/17 at 02:00 Diagnostic Test (Pha) (Accu-Chek) 1 ea 02 XX ; Start 01/07/17 at 02:00 Furosemide (Lasix) 20 mg DAILY PO ; Start 01/07/17 at 09:00; Status Future Hold Bisacodyl (Dulcolax Supp) 10 mg DAILY PRN [place] CONSTIPATION; Start 01/06/17 at 11 :30 Guaifenesin (Robitussin Liquid Cup) 100 mg Q6H PRN PO COUGH Last administered on 01/08/17 07:54; Admin Dose 100 MG; Start 01/06/17 at 11:30 Levothyroxine Sodium (Synthroid) 112 mcg DAILY@06 PO Last administered on 05:36; Admin Dose 112 MCG; Start 01/07/17 at 06:00 Lisinopril (Zestril) 2.5 mg DAILY PO ; Start 01/07/17 at 09:00 Polyethylene Glycol (Miralax) 17 gm DAILY PO Last administered on 01/07/17 08: 24; Admin Dose 17 GM; Start 01/07/17 at 09:00 Senna (Senokot) 2 tab HS PO Last administered on 01/14/17 20:56; Admin Dose 2 TAB; Start 01/06/17 at 21:00 Miscellaneous Information 1 ea NOTE XX ; Start 01/06/17 at 12:00 Glucose (Glutose) 15 gm Q15M PRN PO DECREASED GLUCOSE; Start 01/06/17 at 12:00 Glucose (Glutose) 22.5 gm Q15M PRN PO DECREASED GLUCOSE Last administered on 03:34; Admin Dose 22.5 GM; Start 01/06/17 at 12:00 Dextrose (D50w Syringe) 25 ml Q15M PRN IV DECREASED GLUCOSE; Start 01/06/17 at 12:00 Dextrose (D50w Syringe) 50 ml Q15M PRN IV DECREASED GLUCOSE Last administered on 01/15/17 11:52; Admin Dose 50 ML; Start 01/06/17 at 12:00 Glucagon (Glucagen) 1 mg Q15M PRN IM DECREASED GLUCOSE; Start 01/06/17 at 12:00 Glucose (Glutose) 15 gm Q15M PRN BUCCAL DECREASED GLUCOSE Last administered on 01/10/17 07:07; Admin Dose 15 GM; Start 01/06/17 at 12:00 Insulin Glargine (Lantus) 20 unit DAILY@20 SC Last administered on 01/14/17 20: 57; Admin Dose 20 UNIT; Start 01/13/17 at 20:00 Atorvastatin Calcium (Lipitor) 40 mg HS PO Last administered on 01/14/17 20:57 ; Admin Dose 40 MG; Start 01/14/17 at 21:00 Lidocaine (Xylocaine 4% (Mpf)) 5 ml ONCE PRN HHN BREATHING TREATMENT Last administered on 01/15/17 09:38; Admin Dose 5 ML; Start 01/15/17 at 09:30 RHONDA PENA Jan 15, 2017 12:50
[2017-01-15] MEDS: GABAPENTIN 300 MG CAP PO SCH ×3 (12:56→20:27)
[2017-01-15] MEDS: DULOXETINE 20 MG CAP DR PO SCH (12:56)
[2017-01-15] MEDS: TICAGRELOR 90 MG TABLET PO SCH ×2 (12:57→20:31)
[2017-01-15] MEDS: HEPARIN 5,000 UNIT/0.5 ML VIAL SC SCH ×2 (12:58→21:00)
[2017-01-15] MEDS: ASPIRIN (EC) 81 MG TAB PO SCH (13:00)
[2017-01-15 14:00] VITALS: BP 94/46; RESP 18
--- NOTE | 2017-01-15 14:30 | RADRPT ---
Vent Rate: 81 bpm RR Interval: 0 msec MO Interval: 152 msec QRS Duration: 72 msec QT Interval: 390 msec QTC Interval: 453 msec P-R-T [place]: 17 - 58 - 81 degrees Normal sinus rhythm Anteroseptal infarct , age undetermined Abnormal ECG Electronically Signed By: Keanu Adames [phone]
--- NOTE | 2017-01-15 15:55 | PN ---
Date/Time of Note Date/Time of Note DATE: 01/15/17 TIME: 15:48 Assessment/Plan VTE Prophylaxis VTE Prophylaxis Intervention: heparin Lines/Catheters IV Catheter Type (from [facility]): Peripheral IV Urinary Cath still in place: No Assessment/Plan Chief Complaint/Hosp Course Assessment/Plan: 56 yo F with poorly controlled DM2 admitted for NSTEMI in setting DKA. Found to have multivessel CAD. Awaiting CABG. Also with incidental finding of L sided subglottic lesion. 1. multivessel CAD, recent NSTEMI, ICM with EF <25%. CABG pending, date TBD, although according to CTS patient is at very high risk of having surgery secondary to significant comorbidities including carotid occlusion, specifically occlusion of the right internal carotid artery just beyond its origin due to large plaque burden as seen on the prior MRI. -cont current cardiac meds, follow-up CTS recommendations. -bb/lasix on hold for orthostasis 2. L subglottic lesion: ENT initially recommended bronchoscopy which was attempted today. However pulmonary team was unable to perform biopsy during bronchoscopy. They are recommending reevaluation by ENT given the high vascularity of the mass. -Will reconsult ENT today and discuss with him about another biopsy attempt -Follow-up recommendations from banking consultant teams. 3. Severe obstructive and restrictive pulmonary disease. Status post PFTs -Continue bronchodilators. 4. Type I diabetes mellitus (and not type 2, per endo) - sugars still elevated in the morning, then quite low at lunchtime. Last documented A1c is from December 10 2016, it was 9.4. Appreciate endocrinology consult. -Follow-up endocrinology recommendations regarding insulins, adjustments have been made today with aspart and Lantus - monitor fingerstick 5. Hypothyroidism. -Continue Synthroid. 6. Chronic anemia. H&H stable. Will monitor. 7. Significant deconditioning -Continue with physical therapy as tolerated. DVT prophylaxis: Heparin Problems: Subjective 24 Hr Interval Summary Free Text/Dictation Bronchoscopy was attempted today, but could not be completed because of high vascularity of the mass, per pulmonary team. Exam/Review of Systems Vital Signs Vitals Vital Signs Date Time Temp Pulse Resp B/P Pulse Ox O2 Delivery O2 Flow Rate FiO2 01/15/17 14:00 97.4 83 18 94/46 98 01/15/17 09:55 Room Air 01/12/17 20:25 21 Intake and Output 01/14/17 01/14/17 01/15/17 15:00 23:00 07:00 Intake Total 300 ml 480 ml Balance 300 ml 480 ml Exam Lying in bed, alert, no acute distress no mrg lungs clear abd soft no rashes No focal deficits No lower extremity edema bilateral Results Result Diagram: 01/15/17 0450 01/15/17 0450 Results 24 hrs Laboratory Tests Test 01/14/17 17:24 01/14/17 18:30 01/14/17 20:50 01/15/17 04:50 Bedside Glucose 110 89 Hepatitis B Surface Antigen NEGATIVE Hepatitis C Antibody NEGATIVE White Blood Count 5.9 Red Blood Count 3.61 L Hemoglobin 11.2 L Hematocrit 34.8 L Mean Corpuscular Volume 96.4 Mean Corpuscular Hemoglobin 31.0 Mean Corpuscular Hemoglobin Concent 32.2 Red Cell Distribution Width 16.4 H Platelet Count 317 Mean Platelet Volume 9.2 Neutrophils % 49.9 Lymphocytes % 25.4 Monocytes % 8.8 Eosinophils % 14.2 H Basophils % 1.2 Nucleated Red Blood Cells % 0.0 Neutrophils # 3.0 Lymphocytes # 1.5 Monocytes # 0.5 Eosinophils # 0.8 H Basophils # 0.1 Nucleated Red Blood Cells # 0.0 Sodium Level 139 Potassium Level 4.4 Chloride Level 99 Carbon Dioxide Level 28 Anion Gap 16 Blood Urea Nitrogen 9 Creatinine 0.45 Glucose Level 277 #H Calcium Level 9.0 Thyroid Stimulating Hormone (TSH) 4.680 Free Thyroxine Index 3.12 Thyroxine (T4) 10.1 Triiodothyronine (T3) Uptake 30.9 Test 01/15/17 07:40 01/15/17 08:24 01/15/17 11:50 01/15/17 12:12 Bedside Glucose 306 H 253 H 43 *L 190 Test 01/15/17 12:30 01/15/17 14:22 Bedside Glucose 250 H 143 Medications Medications Current Medications Ondansetron HCl (Zofran Inj) 4 mg Q6H PRN IV NAUSEA AND/OR VOMITING; Start at 11:30 Acetaminophen (Tylenol Tab) 650 mg Q6H PRN PO PAIN LEVEL 1-3 OR FEVER; Start at 11:30 Acetaminophen (Tylenol Supp) 650 mg Q6H PRN [place] PAIN LEVEL 1-3 OR FEVER; Start 01/06/17 at 11:30 Heparin Sodium (Porcine) (Heparin (5000 Units/0.5 ml)) 5,000 unit Q12 SC Last administered on 01/15/17 12:58; Admin Dose 5,000 UNIT; Start 01/06/17 at 21:00 Alendronate Sodium (Fosamax) 70 mg Q7D PO Last administered on 01/13/17 14:47; Admin Dose 70 MG; Start 01/06/17 at 14:00 Aspirin (Halfprin) 81 mg DAILY PO Last administered on 01/15/17 13:00; Admin Dose 81 MG; Start 01/07/17 at 09:00 Duloxetine HCl (Cymbalta) 20 mg DAILY PO Last administered on 01/15/17 12:56; Admin Dose 20 MG; Start 01/07/17 at 09:00 Gabapentin (Neurontin) 300 mg TID PO Last administered on 01/15/17 12:56; Admin Dose 300 MG; Start 01/06/17 at 13:00 Metoprolol Tartrate (Lopressor) 12.5 mg BID PO ; Start 01/06/17 at 21:00; Status Future Hold Ticagrelor (Brilinta) 90 mg BID PO Last administered on 01/15/17 12:57; Admin Dose 90 MG; Start 01/06/17 at 21:00; Status Future hold Diagnostic Test (Pha) (Accu-Chek) 1 ea 02 XX ; Start 01/07/17 at 02:00 Furosemide (Lasix) 20 mg DAILY PO ; Start 01/07/17 at 09:00; Status Future Hold Bisacodyl (Dulcolax Supp) 10 mg DAILY PRN [place] CONSTIPATION; Start 01/06/17 at 11 :30 Guaifenesin (Robitussin Liquid Cup) 100 mg Q6H PRN PO COUGH Last administered on 01/08/17 07:54; Admin Dose 100 MG; Start 01/06/17 at 11:30 Levothyroxine Sodium (Synthroid) 112 mcg DAILY@06 PO Last administered on 05:36; Admin Dose 112 MCG; Start 01/07/17 at 06:00 Lisinopril (Zestril) 2.5 mg DAILY PO ; Start 01/07/17 at 09:00 Polyethylene Glycol (Miralax) 17 gm DAILY PO Last administered on 01/07/17 08: 24; Admin Dose 17 GM; Start 01/07/17 at 09:00 Senna (Senokot) 2 tab HS PO Last administered on 01/14/17 20:56; Admin Dose 2 TAB; Start 01/06/17 at 21:00 Miscellaneous Information 1 ea NOTE XX ; Start 01/06/17 at 12:00 Glucose (Glutose) 15 gm Q15M PRN PO DECREASED GLUCOSE; Start 01/06/17 at 12:00 Glucose (Glutose) 22.5 gm Q15M PRN PO DECREASED GLUCOSE Last administered on 03:34; Admin Dose 22.5 GM; Start 01/06/17 at 12:00 Dextrose (D50w Syringe) 25 ml Q15M PRN IV DECREASED GLUCOSE; Start 01/06/17 at 12:00 Dextrose (D50w Syringe) 50 ml Q15M PRN IV DECREASED GLUCOSE Last administered on 01/15/17 11:52; Admin Dose 50 ML; Start 01/06/17 at 12:00 Glucagon (Glucagen) 1 mg Q15M PRN IM DECREASED GLUCOSE; Start 01/06/17 at 12:00 Glucose (Glutose) 15 gm Q15M PRN BUCCAL DECREASED GLUCOSE Last administered on 01/10/17 07:07; Admin Dose 15 GM; Start 01/06/17 at 12:00 Atorvastatin Calcium (Lipitor) 40 mg HS PO Last administered on 01/14/17 20:57 ; Admin Dose 40 MG; Start 01/14/17 at 21:00 Lidocaine (Xylocaine 4% (Mpf)) 5 ml ONCE PRN HHN BREATHING TREATMENT Last administered on 01/15/17 09:38; Admin Dose 5 ML; Start 01/15/17 at 09:30 Insulin Glargine (Lantus) 12 unit DAILY@20 SC ; Start 01/15/17 at 20:00 TANIYA OLMSTEAD Jan 15, 2017 15:55
[2017-01-15] MEDS: GLUCOSE GEL 15 GRAM TUBE PO PRN (17:11)
--- NOTE | 2017-01-15 17:21 | CONS ---
Date/Time of Note Date/Time of Note DATE: 01/15/17 TIME: 17:14 Assessment/Plan Assessment/Plan Problems: (1) Type 1 diabetes mellitus with diabetic polyneuropathy Status: Chronic Comment: Although BG went from 89 mg/dL last night to > 300 mg/dL this am, I do not believe this was due to lack of basal insulin. I believe pt. suffered from [place] effect over night and actually experienced multiple hypoglycemic episodes throughout the night resulting in an exaggerated glucagon and epinephrine response this am and thus hyperglycemia. Pt. subsequently had hypoglycemia w/ a mild correction and BG continues to fall after being treated each time. Thus, I believe that 20 units of lantus is too much for this patient. By her weight, she requires 12 units lantus and 6 units Novolog at meals. This is what I am going to place her on. I am also going to increase her BG monitoring to qac/qpc/q0200 (7 FS/d). This increased info should help us to make better decisions re: insulin dosing. Unless BG is profoundly OOC, I will wait 1-2 days before making any changes in insulin doses. Consultation Date/Type/Reason Admit Date/Time Jan 06, 2017 at 10:49 Initial Consult Date 01/14/17 Type of Consultation: Endocrinology Reason for Consultation T1DM OOC Referring Provider: TAD HIGGINS NP 24 HR Interval Summary Constitutional: no complaints Detailed Summary Respiratory: no complaints Cardiovascular: no complaints Gastrointestinal: no complaints Genitourinary: no complaints Musculoskeletal: no complaints Neurologic: no complaints Exam/Review of Systems Vital Signs Vitals VS - Last 72 Hours, by Label Date Time Temp Pulse Resp B/P Pulse Ox O2 Delivery O2 Flow Rate FiO2 01/15/17 14:00 97.4 83 18 94/46 98 01/15/17 10:12 98.2 01/15/17 09:55 98.2 85 14 103/70 96 Room Air 01/15/17 08:14 98.9 79 19 107/52 95 Room Air 01/15/17 08:00 98.9 79 19 107/52 95 01/15/17 03:02 97.7 83 18 110/53 96 01/14/17 21:08 98.2 89 18 100/49 97 01/14/17 15:42 97 97/46 01/14/17 15:41 89 99/49 8/2/17 15:39 97.8 87 18 101/49 96 01/14/17 08:20 97.9 82 16 93/50 97 01/14/17 02:58 98.2 85 18 99/54 95 01/13/17 21:00 97.9 86 18 96/50 96 01/13/17 16:55 95 98/54 01/13/17 16:00 88 108/45 01/13/17 15:59 99 95/54 01/13/17 14:00 98.6 88 18 92/53 96 01/13/17 08:41 98.2 75 20 106/51 96 01/13/17 02:42 98.2 81 16 101/54 96 01/12/17 20:59 98.4 85 16 101/51 96 01/12/17 20:25 78 18 97 21 Vital Signs Date Time Temp Pulse Resp B/P Pulse Ox O2 Delivery O2 Flow Rate FiO2 01/15/17 14:00 97.4 83 18 94/46 98 01/15/17 09:55 Room Air 01/12/17 20:25 21 Intake and Output 01/14/17 01/14/17 01/15/17 14:59 22:59 06:59 Intake Total 300 ml 480 ml Balance 300 ml 480 ml Exam Constitutional: alert, oriented, well developed Psych: nl mood/affect, no complaints Respiratory: clear to auscultation, normal air movement Cardiovascular: nl pulses, regular rate and rhythm, No edema, No murmurs/extra sounds, No rub Gastrointestinal: bowel sounds, nl liver, spleen, non-tender, soft, No mass, No rebound or guarding Musculoskeletal: nl extremities to inspection Extremities: normal pulses, No clubbing, No cyanosis, No edema 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, nl mental status, nl speech, nl strength Additional Comments Bedside Glucose - 72 Hours Test 01/12/17 17:29 01/12/17 20:14 01/12/17 21:08 01/13/17 02:07 Bedside Glucose 116mg/dL (70-220) 182mg/dL (70-220) 198mg/dL (70-220) 212mg/dL (70-220) Test 01/13/17 07:50 01/13/17 11:55 01/13/17 17:22 01/13/17 20:15 Bedside Glucose 340mg/dL (70-220) H 237mg/dL (70-220) H 90mg/dL (70-220) 128mg/dL (70-220) Test 01/14/17 08:04 01/14/17 11:44 01/14/17 17:24 01/14/17 20:50 Bedside Glucose 128mg/dL (70-220) 218mg/dL (70-220) 110mg/dL (70-220) 89mg/dL (70-220) Test 01/15/17 07:40 01/15/17 08:24 01/15/17 11:50 01/15/17 12:12 Bedside Glucose 306mg/dL (70-220) H 253mg/dL (70-220) H 43mg/dL (70-220) *L 190mg/dL (70-220) Test 01/15/17 12:30 01/15/17 14:22 Bedside Glucose 250mg/dL (70-220) H 143mg/dL (70-220) Results Result Diagram: 01/15/17 0450 01/15/17 0450 Results 24 hrs Laboratory Tests Test 01/14/17 17:24 01/14/17 18:30 01/14/17 20:50 01/15/17 04:50 Bedside Glucose 110 89 Hepatitis B Surface Antigen NEGATIVE Hepatitis C Antibody NEGATIVE White Blood Count 5.9 Red Blood Count 3.61 L Hemoglobin 11.2 L Hematocrit 34.8 L Mean Corpuscular Volume 96.4 Mean Corpuscular Hemoglobin 31.0 Mean Corpuscular Hemoglobin Concent 32.2 Red Cell Distribution Width 16.4 H Platelet Count 317 Mean Platelet Volume 9.2 Neutrophils % 49.9 Lymphocytes % 25.4 Monocytes % 8.8 Eosinophils % 14.2 H Basophils % 1.2 Nucleated Red Blood Cells % 0.0 Neutrophils # 3.0 Lymphocytes # 1.5 Monocytes # 0.5 Eosinophils # 0.8 H Basophils # 0.1 Nucleated Red Blood Cells # 0.0 Sodium Level 139 Potassium Level 4.4 Chloride Level 99 Carbon Dioxide Level 28 Anion Gap 16 Blood Urea Nitrogen 9 Creatinine 0.45 Glucose Level 277 #H Calcium Level 9.0 Thyroid Stimulating Hormone (TSH) 4.680 Free Thyroxine Index 3.12 Thyroxine (T4) 10.1 Triiodothyronine (T3) Uptake 30.9 Test 01/15/17 07:40 01/15/17 08:24 01/15/17 11:50 01/15/17 12:12 Bedside Glucose 306 H 253 H 43 *L 190 Test 01/15/17 12:30 01/15/17 14:22 Bedside Glucose 250 H 143 Medications Medications Current Medications Ondansetron HCl (Zofran Inj) 4 mg Q6H PRN IV NAUSEA AND/OR VOMITING; Start at 11:30 Acetaminophen (Tylenol Tab) 650 mg Q6H PRN PO PAIN LEVEL 1-3 OR FEVER; Start at 11:30 Acetaminophen (Tylenol Supp) 650 mg Q6H PRN [place] PAIN LEVEL 1-3 OR FEVER; Start 01/06/17 at 11:30 Heparin Sodium (Porcine) (Heparin (5000 Units/0.5 ml)) 5,000 unit Q12 SC Last administered on 01/15/17 12:58; Admin Dose 5,000 UNIT; Start 01/06/17 at 21:00 Alendronate Sodium (Fosamax) 70 mg Q7D PO Last administered on 01/13/17 14:47; Admin Dose 70 MG; Start 01/06/17 at 14:00 Aspirin (Halfprin) 81 mg DAILY PO Last administered on 01/15/17 13:00; Admin Dose 81 MG; Start 01/07/17 at 09:00 Duloxetine HCl (Cymbalta) 20 mg DAILY PO Last administered on 01/15/17 12:56; Admin Dose 20 MG; Start 01/07/17 at 09:00 Gabapentin (Neurontin) 300 mg TID PO Last administered on 01/15/17 12:56; Admin Dose 300 MG; Start 01/06/17 at 13:00 Metoprolol Tartrate (Lopressor) 12.5 mg BID PO ; Start 01/06/17 at 21:00; Status Future Hold Ticagrelor (Brilinta) 90 mg BID PO Last administered on 01/15/17 12:57; Admin Dose 90 MG; Start 01/06/17 at 21:00; Status Future hold Diagnostic Test (Pha) (Accu-Chek) 1 ea 02 XX ; Start 01/07/17 at 02:00 Furosemide (Lasix) 20 mg DAILY PO ; Start 01/07/17 at 09:00; Status Future Hold Bisacodyl (Dulcolax Supp) 10 mg DAILY PRN [place] CONSTIPATION; Start 01/06/17 at 11 :30 Guaifenesin (Robitussin Liquid Cup) 100 mg Q6H PRN PO COUGH Last administered on 01/08/17 07:54; Admin Dose 100 MG; Start 01/06/17 at 11:30 Levothyroxine Sodium (Synthroid) 112 mcg DAILY@06 PO Last administered on 05:36; Admin Dose 112 MCG; Start 01/07/17 at 06:00 Lisinopril (Zestril) 2.5 mg DAILY PO ; Start 01/07/17 at 09:00 Polyethylene Glycol (Miralax) 17 gm DAILY PO Last administered on 01/07/17 08: 24; Admin Dose 17 GM; Start 01/07/17 at 09:00 Senna (Senokot) 2 tab HS PO Last administered on 01/14/17 20:56; Admin Dose 2 TAB; Start 01/06/17 at 21:00 Miscellaneous Information 1 ea NOTE XX ; Start 01/06/17 at 12:00 Glucose (Glutose) 15 gm Q15M PRN PO DECREASED GLUCOSE Last administered on 17:11; Admin Dose 15 GM; Start 01/06/17 at 12:00 Glucose (Glutose) 22.5 gm Q15M PRN PO DECREASED GLUCOSE Last administered on 03:34; Admin Dose 22.5 GM; Start 01/06/17 at 12:00 Dextrose (D50w Syringe) 25 ml Q15M PRN IV DECREASED GLUCOSE; Start 01/06/17 at 12:00 Dextrose (D50w Syringe) 50 ml Q15M PRN IV DECREASED GLUCOSE Last administered on 01/15/17 11:52; Admin Dose 50 ML; Start 01/06/17 at 12:00 Glucagon (Glucagen) 1 mg Q15M PRN IM DECREASED GLUCOSE; Start 01/06/17 at 12:00 Glucose (Glutose) 15 gm Q15M PRN BUCCAL DECREASED GLUCOSE Last administered on 01/10/17 07:07; Admin Dose 15 GM; Start 01/06/17 at 12:00 Atorvastatin Calcium (Lipitor) 40 mg HS PO Last administered on 01/14/17 20:57 ; Admin Dose 40 MG; Start 01/14/17 at 21:00 Lidocaine (Xylocaine 4% (Mpf)) 5 ml ONCE PRN HHN BREATHING TREATMENT Last administered on 01/15/17 09:38; Admin Dose 5 ML; Start 01/15/17 at 09:30 Insulin Glargine (Lantus) 12 unit DAILY@20 SC ; Start 01/15/17 at 20:00 DARYL MYERS MD Jan 15, 2017 17:21
[2017-01-15 20:00] VITALS: BP 117/56; RESP 20
[2017-01-15] MEDS: SENNA TAB PO SCH (20:27)
[2017-01-15] MEDS: ATORVASTATIN 40 MG TAB PO SCH (20:27)
[2017-01-15] MEDS: INSULIN GLARGINE [LANtus] 3 ML PEN SC SCH (20:29)
[2017-01-16 02:00] VITALS: BP 107/53; RESP 20
[2017-01-16] MEDS: ACCU-CHEK XX SCH ×4 (02:00→20:05)
[2017-01-16] MEDS: LEVOTHYROXINE 112 MCG TAB PO SCH (05:43)
[2017-01-16 06:24] LABS: BASOPHIL # 0.1 10^3/ul (0.0-0.1); EOSINOPHILS # 0.8 10^3/ul (0.0-0.5); EOSINOPHILS % 13.6 % (0.0-7.0); HEMATOCRIT 35.7 % (37.0-47.0); HEMOGLOBIN 11.1 g/dl (12.0-16.0); LYMPHOCYTES # 1.4 10^3/ul (0.8-2.9); LYMPHOCYTES % 22.5 % (15.0-51.0); MEAN CORPUSCULAR HEMOGLOBIN 30.2 pg (29.0-33.0); MEAN CORPUSCULAR HGB CONC 31.1 g/dl (32.0-37.0); MEAN PLATELET VOLUME 9.3 fl (7.4-10.4); MONOCYTE # 0.5 10^3/ul (0.3-0.9); MONOCYTES % 7.6 % (0.0-11.0); NEUTROPHIL # 3.4 10^3/ul (1.6-7.5); NEUTROPHILS % 54.8 % (39.0-77.0); PLATELET COUNT 299 10^3/UL (140-415); RED BLOOD COUNT 3.68 10^6/ul (4.20-5.40); RED CELL DISTRIBUTION WIDTH 16.7 % (11.5-14.5); WHITE BLOOD COUNT 6.2 10^3/ul (4.8-10.8)
[2017-01-16 07:03] LABS: CALCIUM 9.1 mg/dl (8.4-10.2); CREATININE 0.52 mg/dl (0.44-1.00); POTASSIUM 4.7 mmol/L (3.5-5.1)
--- NOTE | 2017-01-16 08:02 | CONS ---
Date/Time of Note Date/Time of Note DATE: 01/16/17 TIME: 08:01 Assessment/Plan Assessment/Plan Additional Assessment/Plan Left subglottic mass. The mass appears larger on laryngoscopy as compared with its appearance on imaging, which may reflect some post-bronchoscopy edema. In order to safely resect this mass, the patient will need a tracheostomy placed to protect her lower airway during resection. Once the tracheostomy is placed, endoscopic resection can proceed with a CO2 laser. The timing of this surgery is debatable given the patient's serious cardiac disease. If she can be safely intubated, then it may be appropriate to proceed with CABG first and then resect this mass thereafter. Will discuss plan with both CT and medicine teams. Consultation Date/Type/Reason Admit Date/Time Jan 06, 2017 at 10:49 Date of Consultation: Jan 16, 2017 Type of Consultation: ENT Reason for Consultation Subglottic mass Referring Provider: TANIYA OLMSTEAD Hx of Present Illness The patient is s 56 year old female admitted for management of CAD. She is awaiting CABG surgery. During her workup, she was found to have a left subglottic mass. She denies dyspnea or change in voice. Bronchoscopy was performed yesterday which revealed a smooth, possibly vascular, mass of the left subglottic region. Biopsy was not performed due to concerns of bleeding. Constitutional: no complaints Eyes: no complaints ENT: no complaints Respiratory: no complaints Cardiovascular: no complaints Gastrointestinal: no complaints Genitourinary: no complaints Musculoskeletal: no complaints Skin: no complaints Neurologic: no complaints Psychological: nl mood/affect, no complaints Past Medical History Medical History: angina, congestive heart failure (systolic w/ EF 25%), coronary artery disease (w/ NSTEMI), diabetes (T1, multiple episodes of DKA), high cholesterol, hypothyroid, other (COPD) Past Surgical History Past Surgical Hx: other (c-sect, T&A) Social History Alcohol Use: none Smoking Status: Current every day smoker (1.5 ppd x 30 y) Drug Use: none Exam/Review of Systems Vital Signs Vitals Vital Signs Date Time Temp Pulse Resp B/P Pulse Ox O2 Delivery O2 Flow Rate FiO2 01/16/17 02:00 98.7 85 20 107/53 98 01/15/17 09:55 Room Air 01/12/17 20:25 21 Intake and Output 01/15/17 01/15/17 01/16/17 15:00 23:00 07:00 Intake Total 120 ml 320 ml 350 ml Output Total 0 ml Balance 120 ml 320 ml 350 ml Exam Psych: nl mood/affect, no complaints Head: atraumatic, normocephalic Eyes: EOMI, PERRL, nl conjunctiva, nl lids, nl sclera ENMT: mucosa pink and moist, nl external ears & nose, nl lips & teeth, nl nasal mucosa & septum, other (Flexible laryngoscopy performed at bedside. Both vocal cords mobile. Smooth subglottic mass occupying ~60% of the subglottic airway. Laryngoscopy otherwise normal.) Neck: non-tender, supple Musculoskeletal: nl extremities to inspection, nl gait and stance 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: [employer]ATOR II-XII intact, nl mental status, nl speech, nl strength Skin: nl turgor, No rash or lesions Lymph: nl lymph nodes Results Result Diagram: 01/16/17 0503 01/16/17 0503 Results 24 hrs Laboratory Tests Test 01/15/17 08:24 01/15/17 11:50 01/15/17 12:12 01/15/17 12:30 Bedside Glucose 253 H 43 *L 190 250 H Test 01/15/17 14:22 01/15/17 17:08 01/15/17 17:35 01/15/17 18:01 Bedside Glucose 143 54 L 87 118 Test 01/15/17 20:25 01/16/17 05:03 01/16/17 07:56 Bedside Glucose 85 376 H White Blood Count 6.2 Red Blood Count 3.68 L Hemoglobin 11.1 L Hematocrit 35.7 L Mean Corpuscular Volume 97.0 Mean Corpuscular Hemoglobin 30.2 Mean Corpuscular Hemoglobin Concent 31.1 L Red Cell Distribution Width 16.7 H Platelet Count 299 Mean Platelet Volume 9.3 Neutrophils % 54.8 Lymphocytes % 22.5 Monocytes % 7.6 Eosinophils % 13.6 H Basophils % 1.0 Nucleated Red Blood Cells % 0.0 Neutrophils # 3.4 Lymphocytes # 1.4 Monocytes # 0.5 Eosinophils # 0.8 H Basophils # 0.1 Nucleated Red Blood Cells # 0.0 Sodium Level 139 Potassium Level 4.7 Chloride Level 99 Carbon Dioxide Level 27 Anion Gap 18 H Blood Urea Nitrogen 11 Creatinine 0.52 Glucose Level 318 H Calcium Level 9.1 Medications Medications Current Medications Ondansetron HCl (Zofran Inj) 4 mg Q6H PRN IV NAUSEA AND/OR VOMITING; Start at 11:30 Acetaminophen (Tylenol Tab) 650 mg Q6H PRN PO PAIN LEVEL 1-3 OR FEVER; Start at 11:30 Acetaminophen (Tylenol Supp) 650 mg Q6H PRN [place] PAIN LEVEL 1-3 OR FEVER; Start 01/06/17 at 11:30 Heparin Sodium (Porcine) (Heparin (5000 Units/0.5 ml)) 5,000 unit Q12 SC Last administered on 01/15/17 12:58; Admin Dose 5,000 UNIT; Start 01/06/17 at 21:00 Alendronate Sodium (Fosamax) 70 mg Q7D PO Last administered on 01/13/17 14:47; Admin Dose 70 MG; Start 01/06/17 at 14:00 Aspirin (Halfprin) 81 mg DAILY PO Last administered on 01/15/17 13:00; Admin Dose 81 MG; Start 01/07/17 at 09:00 Duloxetine HCl (Cymbalta) 20 mg DAILY PO Last administered on 01/15/17 12:56; Admin Dose 20 MG; Start 01/07/17 at 09:00 Gabapentin (Neurontin) 300 mg TID PO Last administered on 01/15/17 20:27; Admin Dose 300 MG; Start 01/06/17 at 13:00 Metoprolol Tartrate (Lopressor) 12.5 mg BID PO ; Start 01/06/17 at 21:00; Status Future Hold Ticagrelor (Brilinta) 90 mg BID PO Last administered on 01/15/17 20:31; Admin Dose 90 MG; Start 01/06/17 at 21:00; Status Future hold Diagnostic Test (Pha) (Accu-Chek) 1 ea 02 XX ; Start 01/07/17 at 02:00 Furosemide (Lasix) 20 mg DAILY PO ; Start 01/07/17 at 09:00; Status Future Hold Bisacodyl (Dulcolax Supp) 10 mg DAILY PRN [place] CONSTIPATION; Start 01/06/17 at 11 :30 Guaifenesin (Robitussin Liquid Cup) 100 mg Q6H PRN PO COUGH Last administered on 01/08/17 07:54; Admin Dose 100 MG; Start 01/06/17 at 11:30 Levothyroxine Sodium (Synthroid) 112 mcg DAILY@06 PO Last administered on 05:43; Admin Dose 112 MCG; Start 01/07/17 at 06:00 Lisinopril (Zestril) 2.5 mg DAILY PO ; Start 01/07/17 at 09:00 Polyethylene Glycol (Miralax) 17 gm DAILY PO Last administered on 01/07/17 08: 24; Admin Dose 17 GM; Start 01/07/17 at 09:00 Senna (Senokot) 2 tab HS PO Last administered on 01/15/17 20:27; Admin Dose 2 TAB; Start 01/06/17 at 21:00 Miscellaneous Information 1 ea NOTE XX ; Start 01/06/17 at 12:00 Glucose (Glutose) 15 gm Q15M PRN PO DECREASED GLUCOSE Last administered on 17:11; Admin Dose 15 GM; Start 01/06/17 at 12:00 Glucose (Glutose) 22.5 gm Q15M PRN PO DECREASED GLUCOSE Last administered on 03:34; Admin Dose 22.5 GM; Start 01/06/17 at 12:00 Dextrose (D50w Syringe) 25 ml Q15M PRN IV DECREASED GLUCOSE; Start 01/06/17 at 12:00 Dextrose (D50w Syringe) 50 ml Q15M PRN IV DECREASED GLUCOSE Last administered on 01/15/17 11:52; Admin Dose 50 ML; Start 01/06/17 at 12:00 Glucagon (Glucagen) 1 mg Q15M PRN IM DECREASED GLUCOSE; Start 01/06/17 at 12:00 Glucose (Glutose) 15 gm Q15M PRN BUCCAL DECREASED GLUCOSE Last administered on 01/10/17 07:07; Admin Dose 15 GM; Start 01/06/17 at 12:00 Atorvastatin Calcium (Lipitor) 40 mg HS PO Last administered on 01/15/17 20:27 ; Admin Dose 40 MG; Start 01/14/17 at 21:00 Lidocaine (Xylocaine 4% (Mpf)) 5 ml ONCE PRN HHN BREATHING TREATMENT Last administered on 01/15/17 09:38; Admin Dose 5 ML; Start 01/15/17 at 09:30 Insulin Glargine (Lantus) 12 unit DAILY@20 SC Last administered on 01/15/17 20: 29; Admin Dose 12 UNIT; Start 01/15/17 at 20:00 KEL LAURA MD Jan 16, 2017 08:02
[2017-01-16] MEDS: ASPIRIN (EC) 81 MG TAB PO SCH (08:20)
[2017-01-16] MEDS: DULOXETINE 20 MG CAP DR PO SCH (08:20)
[2017-01-16] MEDS: TICAGRELOR 90 MG TABLET PO SCH (08:21)
[2017-01-16] MEDS: HEPARIN 5,000 UNIT/0.5 ML VIAL SC SCH ×2 (08:22→21:11)
[2017-01-16] MEDS: INSULIN ASPART [NOVOLOG] 3 ML PEN SC SCH ×7 (08:23→21:00)
[2017-01-16 08:26] VITALS: BP 118/56; RESP 18
[2017-01-16] MEDS: GABAPENTIN 300 MG CAP PO SCH ×3 (09:00→21:06)
[2017-01-16] MEDS: LISINOPRIL 5 MG TAB PO SCH (09:00)
[2017-01-16] MEDS: POLYETHYLENE GLYCOL 17 GM PACKET PO SCH (09:00)
--- NOTE | 2017-01-16 13:18 | CONS ---
Date/Time of Note Date/Time of Note DATE: 01/16/17 TIME: 13:11 Assessment/Plan Assessment/Plan Chief Complaint/Hosp Course IMP: 1.NSTEMI-peak trop>60 Now dowtrended significantly s/p LHC with patent RCA stents and high grade disease of LAD/LCX with small caliber vessels and recc for CABG. 2.cardiomyopathy-LVEF 40-45 BY OSH echo. 25% by echo read here 3.Hypotension-borderline. Hold lasix as tolerated 4.resp failure s/p extubation requiring PRN BIPAP which has now improved and not requiring further at this time 5.anemia 6. AMS/encephalopathy 7. PNA-ongoing by chest CT 8. COPD 9. Hypothyroid 10.DM-labile BS 11.Neck mass? with dysphagia. 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 carotid stenosis Recc: -Now transferred to med-surg -Hold BB/lasix and follow BP -Continue acei as tolerated only -Continue asa -Continue statin -Smoking cessation -Follow BS closely and adjust insulin therapy as necessary -Continue abx's and f/u cx data -Continue bronchodilators -? timing of surgery. If tumor not currently affecting resp status/intubation- extubation then may want to consider CABG prior to removal of subglottic tumor given suignifcant cad and recent nstemi. -will again hold brilinta in anticipation of surgery Problems: Consultation Date/Type/Reason Admit Date/Time Jan 06, 2017 at 10:49 Initial Consult Date 01/06/2017 Type of Consultation: cardiology Reason for Consultation Nstemi Referring Provider: TANIYA OLMSTEAD Exam/Review of Systems Vital Signs Vitals Vital Signs Date Time Temp Pulse Resp B/P Pulse Ox O2 Delivery O2 Flow Rate FiO2 01/16/17 08:26 98.1 80 18 118/56 97 01/15/17 09:55 Room Air 01/12/17 20:25 21 Intake and Output 01/15/17 01/15/17 01/16/17 15:00 23:00 07:00 Intake Total 120 ml 320 ml 350 ml Output Total 0 ml Balance 120 ml 320 ml 350 ml Exam Review of Systems: CONSTITUTIONAL: No fevers, chills. PULMONARY: No sob CARDIOVASCULAR: No chest pain/palpitations GASTROINTESTINAL: No nausea/vomiting. GENITOURINARY: No hematuria/dysuria. MUSCULOSKELETAL: No myagias/arthalgias. PSYCHIATRIC: The patient denies depression. NEUROLOGIC: No weakness Constitutional: alert Psych: no complaints Head: normocephalic ENMT: mucosa pink and moist Neck: jvd (8-9 cm water), supple Respiratory: clear to auscultation Cardiovascular: regular rate and rhythm Gastrointestinal: non-tender, soft Musculoskeletal: muscle tone (normal) Extremities: edema 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: other (no focal deficits) Results Result Diagram: 01/16/17 0503 01/16/17 0503 Results 24 hrs Laboratory Tests Test 01/15/17 14:22 01/15/17 17:08 01/15/17 17:35 01/15/17 18:01 Bedside Glucose 143 54 L 87 118 Test 01/15/17 20:25 01/16/17 05:03 01/16/17 07:56 01/16/17 10:09 Bedside Glucose 85 376 H 302 H White Blood Count 6.2 Red Blood Count 3.68 L Hemoglobin 11.1 L Hematocrit 35.7 L Mean Corpuscular Volume 97.0 Mean Corpuscular Hemoglobin 30.2 Mean Corpuscular Hemoglobin Concent 31.1 L Red Cell Distribution Width 16.7 H Platelet Count 299 Mean Platelet Volume 9.3 Neutrophils % 54.8 Lymphocytes % 22.5 Monocytes % 7.6 Eosinophils % 13.6 H Basophils % 1.0 Nucleated Red Blood Cells % 0.0 Neutrophils # 3.4 Lymphocytes # 1.4 Monocytes # 0.5 Eosinophils # 0.8 H Basophils # 0.1 Nucleated Red Blood Cells # 0.0 Sodium Level 139 Potassium Level 4.7 Chloride Level 99 Carbon Dioxide Level 27 Anion Gap 18 H Blood Urea Nitrogen 11 Creatinine 0.52 Glucose Level 318 H Calcium Level 9.1 Test 01/16/17 11:49 Bedside Glucose 257 H Medications Medications Current Medications Ondansetron HCl (Zofran Inj) 4 mg Q6H PRN IV NAUSEA AND/OR VOMITING; Start at 11:30 Acetaminophen (Tylenol Tab) 650 mg Q6H PRN PO PAIN LEVEL 1-3 OR FEVER; Start at 11:30 Acetaminophen (Tylenol Supp) 650 mg Q6H PRN [place] PAIN LEVEL 1-3 OR FEVER; Start 01/06/17 at 11:30 Heparin Sodium (Porcine) (Heparin (5000 Units/0.5 ml)) 5,000 unit Q12 SC Last administered on 01/16/17 08:22; Admin Dose 5,000 UNIT; Start 01/06/17 at 21:00 Alendronate Sodium (Fosamax) 70 mg Q7D PO Last administered on 01/13/17 14:47; Admin Dose 70 MG; Start 01/06/17 at 14:00 Aspirin (Halfprin) 81 mg DAILY PO Last administered on 01/16/17 08:20; Admin Dose 81 MG; Start 01/07/17 at 09:00 Duloxetine HCl (Cymbalta) 20 mg DAILY PO Last administered on 01/16/17 08:20; Admin Dose 20 MG; Start 01/07/17 at 09:00 Gabapentin (Neurontin) 300 mg TID PO Last administered on 01/15/17 20:27; Admin Dose 300 MG; Start 01/06/17 at 13:00 Metoprolol Tartrate (Lopressor) 12.5 mg BID PO ; Start 01/06/17 at 21:00; Status Future Hold Ticagrelor (Brilinta) 90 mg BID PO Last administered on 01/16/17 08:21; Admin Dose 90 MG; Start 01/06/17 at 21:00; Status Future hold Diagnostic Test (Pha) (Accu-Chek) 1 ea 02 XX ; Start 01/07/17 at 02:00 Furosemide (Lasix) 20 mg DAILY PO ; Start 01/07/17 at 09:00; Status Future Hold Bisacodyl (Dulcolax Supp) 10 mg DAILY PRN [place] CONSTIPATION; Start 01/06/17 at 11 :30 Guaifenesin (Robitussin Liquid Cup) 100 mg Q6H PRN PO COUGH Last administered on 01/08/17 07:54; Admin Dose 100 MG; Start 01/06/17 at 11:30 Levothyroxine Sodium (Synthroid) 112 mcg DAILY@06 PO Last administered on 05:43; Admin Dose 112 MCG; Start 01/07/17 at 06:00 Lisinopril (Zestril) 2.5 mg DAILY PO Last administered on 01/16/17 09:00; Admin Dose 2.5 MG; Start 01/07/17 at 09:00 Polyethylene Glycol (Miralax) 17 gm DAILY PO Last administered on 01/07/17 08: 24; Admin Dose 17 GM; Start 01/07/17 at 09:00 Senna (Senokot) 2 tab HS PO Last administered on 01/15/17 20:27; Admin Dose 2 TAB; Start 01/06/17 at 21:00 Miscellaneous Information 1 ea NOTE XX ; Start 01/06/17 at 12:00 Glucose (Glutose) 15 gm Q15M PRN PO DECREASED GLUCOSE Last administered on 17:11; Admin Dose 15 GM; Start 01/06/17 at 12:00 Glucose (Glutose) 22.5 gm Q15M PRN PO DECREASED GLUCOSE Last administered on 03:34; Admin Dose 22.5 GM; Start 01/06/17 at 12:00 Dextrose (D50w Syringe) 25 ml Q15M PRN IV DECREASED GLUCOSE; Start 01/06/17 at 12:00 Dextrose (D50w Syringe) 50 ml Q15M PRN IV DECREASED GLUCOSE Last administered on 01/15/17 11:52; Admin Dose 50 ML; Start 01/06/17 at 12:00 Glucagon (Glucagen) 1 mg Q15M PRN IM DECREASED GLUCOSE; Start 01/06/17 at 12:00 Glucose (Glutose) 15 gm Q15M PRN BUCCAL DECREASED GLUCOSE Last administered on 01/10/17 07:07; Admin Dose 15 GM; Start 01/06/17 at 12:00 Atorvastatin Calcium (Lipitor) 40 mg HS PO Last administered on 01/15/17 20:27 ; Admin Dose 40 MG; Start 01/14/17 at 21:00 Lidocaine (Xylocaine 4% (Mpf)) 5 ml ONCE PRN HHN BREATHING TREATMENT Last administered on 01/15/17 09:38; Admin Dose 5 ML; Start 01/15/17 at 09:30 Insulin Glargine (Lantus) 12 unit DAILY@20 SC Last administered on 01/15/17 20: 29; Admin Dose 12 UNIT; Start 01/15/17 at 20:00 RHONDA PENA Jan 16, 2017 13:18
--- NOTE | 2017-01-16 13:25 | CONS ---
Date/Time of Note Date/Time of Note DATE: 01/16/17 TIME: 13:22 Assessment/Plan Assessment/Plan Additional Assessment/Plan Assessment recommendations; 1. Patient admitted for CHF and acute MO awaiting CABG surgery. 2. Incidental discovery made of subglottic mass status post bronchoscopy yesterday revealing a sessile growth just below the vocal cords and upper posterior trachea the significance of that is currently unclear at this point. The lesion appeared mildly vascular and too small for biopsy to be performed safely. 3. History of COPD. 4. Cardiomyopathy. Patient needs to have CABG surgery prior to workup of the subglottic mass. Patient is cleared from a pulmonary standpoint for sternotomy. Consultation Date/Type/Reason Admit Date/Time Jan 06, 2017 at 10:49 Type of Consultation: Pulmonary Referring Provider: TANIYA OLMSTEAD 24 HR Interval Summary Free Text/Dictation Patient condition stable. Denies any shortness of breath. Patient has been getting physical therapy and ambulating in the hallway. General exam; elderly woman, awake alert currently in no distress. Exam/Review of Systems Vital Signs Vitals Vital Signs Date Time Temp Pulse Resp B/P Pulse Ox O2 Delivery O2 Flow Rate FiO2 01/16/17 08:26 98.1 80 18 118/56 97 01/15/17 09:55 Room Air 01/12/17 20:25 21 Intake and Output 01/15/17 01/15/17 01/16/17 15:00 23:00 07:00 Intake Total 120 ml 320 ml 350 ml Output Total 0 ml Balance 120 ml 320 ml 350 ml Exam HEENT exam; supple neck, no JVD. No lymphadenopathy. Midline trachea. No thyromegaly. Patient is edentulous. Chest exam; clear to auscultation. S1-S2 audible, no murmurs. Regular rhythm. Abdomen exam; soft, nontender. No organomegaly. Bowel sounds audible. Extremity exam; no peripheral edema. STRIPPER SOFT PLASTIC exam; no focal deficit. Results Result Diagram: 01/16/17 0503 01/16/17 0503 Results 24 hrs Laboratory Tests Test 01/15/17 14:22 01/15/17 17:08 01/15/17 17:35 01/15/17 18:01 Bedside Glucose 143 54 L 87 118 Test 01/15/17 20:25 01/16/17 05:03 01/16/17 07:56 01/16/17 10:09 Bedside Glucose 85 376 H 302 H White Blood Count 6.2 Red Blood Count 3.68 L Hemoglobin 11.1 L Hematocrit 35.7 L Mean Corpuscular Volume 97.0 Mean Corpuscular Hemoglobin 30.2 Mean Corpuscular Hemoglobin Concent 31.1 L Red Cell Distribution Width 16.7 H Platelet Count 299 Mean Platelet Volume 9.3 Neutrophils % 54.8 Lymphocytes % 22.5 Monocytes % 7.6 Eosinophils % 13.6 H Basophils % 1.0 Nucleated Red Blood Cells % 0.0 Neutrophils # 3.4 Lymphocytes # 1.4 Monocytes # 0.5 Eosinophils # 0.8 H Basophils # 0.1 Nucleated Red Blood Cells # 0.0 Sodium Level 139 Potassium Level 4.7 Chloride Level 99 Carbon Dioxide Level 27 Anion Gap 18 H Blood Urea Nitrogen 11 Creatinine 0.52 Glucose Level 318 H Calcium Level 9.1 Test 01/16/17 11:49 Bedside Glucose 257 H Medications Medications Current Medications Ondansetron HCl (Zofran Inj) 4 mg Q6H PRN IV NAUSEA AND/OR VOMITING; Start at 11:30 Acetaminophen (Tylenol Tab) 650 mg Q6H PRN PO PAIN LEVEL 1-3 OR FEVER; Start at 11:30 Acetaminophen (Tylenol Supp) 650 mg Q6H PRN [place] PAIN LEVEL 1-3 OR FEVER; Start 01/06/17 at 11:30 Heparin Sodium (Porcine) (Heparin (5000 Units/0.5 ml)) 5,000 unit Q12 SC Last administered on 01/16/17 08:22; Admin Dose 5,000 UNIT; Start 01/06/17 at 21:00 Alendronate Sodium (Fosamax) 70 mg Q7D PO Last administered on 01/13/17 14:47; Admin Dose 70 MG; Start 01/06/17 at 14:00 Aspirin (Halfprin) 81 mg DAILY PO Last administered on 01/16/17 08:20; Admin Dose 81 MG; Start 01/07/17 at 09:00 Duloxetine HCl (Cymbalta) 20 mg DAILY PO Last administered on 01/16/17 08:20; Admin Dose 20 MG; Start 01/07/17 at 09:00 Gabapentin (Neurontin) 300 mg TID PO Last administered on 01/15/17 20:27; Admin Dose 300 MG; Start 01/06/17 at 13:00 Metoprolol Tartrate (Lopressor) 12.5 mg BID PO ; Start 01/06/17 at 21:00; Status Future Hold Ticagrelor (Brilinta) 90 mg BID PO Last administered on 01/16/17 08:21; Admin Dose 90 MG; Start 01/06/17 at 21:00; Status Future Hold Diagnostic Test (Pha) (Accu-Chek) 1 ea 02 XX ; Start 01/07/17 at 02:00 Furosemide (Lasix) 20 mg DAILY PO ; Start 01/07/17 at 09:00; Status Future Hold Bisacodyl (Dulcolax Supp) 10 mg DAILY PRN [place] CONSTIPATION; Start 01/06/17 at 11 :30 Guaifenesin (Robitussin Liquid Cup) 100 mg Q6H PRN PO COUGH Last administered on 01/08/17 07:54; Admin Dose 100 MG; Start 01/06/17 at 11:30 Levothyroxine Sodium (Synthroid) 112 mcg DAILY@06 PO Last administered on 05:43; Admin Dose 112 MCG; Start 01/07/17 at 06:00 Lisinopril (Zestril) 2.5 mg DAILY PO Last administered on 01/16/17 09:00; Admin Dose 2.5 MG; Start 01/07/17 at 09:00 Polyethylene Glycol (Miralax) 17 gm DAILY PO Last administered on 01/07/17 08: 24; Admin Dose 17 GM; Start 01/07/17 at 09:00 Senna (Senokot) 2 tab HS PO Last administered on 01/15/17 20:27; Admin Dose 2 TAB; Start 01/06/17 at 21:00 Miscellaneous Information 1 ea NOTE XX ; Start 01/06/17 at 12:00 Glucose (Glutose) 15 gm Q15M PRN PO DECREASED GLUCOSE Last administered on 17:11; Admin Dose 15 GM; Start 01/06/17 at 12:00 Glucose (Glutose) 22.5 gm Q15M PRN PO DECREASED GLUCOSE Last administered on 03:34; Admin Dose 22.5 GM; Start 01/06/17 at 12:00 Dextrose (D50w Syringe) 25 ml Q15M PRN IV DECREASED GLUCOSE; Start 01/06/17 at 12:00 Dextrose (D50w Syringe) 50 ml Q15M PRN IV DECREASED GLUCOSE Last administered on 01/15/17 11:52; Admin Dose 50 ML; Start 01/06/17 at 12:00 Glucagon (Glucagen) 1 mg Q15M PRN IM DECREASED GLUCOSE; Start 01/06/17 at 12:00 Glucose (Glutose) 15 gm Q15M PRN BUCCAL DECREASED GLUCOSE Last administered on 01/10/17 07:07; Admin Dose 15 GM; Start 01/06/17 at 12:00 Atorvastatin Calcium (Lipitor) 40 mg HS PO Last administered on 01/15/17 20:27 ; Admin Dose 40 MG; Start 01/14/17 at 21:00 Lidocaine (Xylocaine 4% (Mpf)) 5 ml ONCE PRN HHN BREATHING TREATMENT Last administered on 01/15/17 09:38; Admin Dose 5 ML; Start 01/15/17 at 09:30 Insulin Glargine (Lantus) 12 unit DAILY@20 SC Last administered on 01/15/17 20: 29; Admin Dose 12 UNIT; Start 01/15/17 at 20:00 MARY MONTEMAYOR Jan 16, 2017 13:25
--- NOTE | 2017-01-16 15:06 | PN ---
Date/Time of Note Date/Time of Note DATE: 01/16/17 TIME: 15:01 Assessment/Plan VTE Prophylaxis VTE Prophylaxis Intervention: heparin Lines/Catheters IV Catheter Type (from [facility]): Peripheral IV Urinary Cath still in place: No Assessment/Plan Chief Complaint/Hosp Course Assessment/Plan: 56 yo F with poorly controlled DM2 admitted for NSTEMI in setting DKA. Found to have multivessel CAD. Awaiting CABG. Also with incidental finding of L sided subglottic lesion. 1. multivessel CAD, recent NSTEMI, ICM with EF <25%. CABG pending, date TBD, although according to CTS patient is at very high risk of having surgery secondary to significant comorbidities including carotid occlusion, specifically occlusion of the right internal carotid artery just beyond its origin due to large plaque burden as seen on the prior MRI. -cont current cardiac meds, follow-up CTS recommendations. -bb/lasix on hold for prior episodes of orthostasis earlier this admission 2. L subglottic lesion: Per discussion with ENT team today, they are recommending tracheostomy before any attempt at biopsy of the subglottic mass or lesion could be performed, given the high risk of possible bleeding. They are going to discuss with cardiothoracic surgery team about when to do this versus when to do the open heart surgery attempt. (ENT initially recommended bronchoscopy which was attempted yesterday. However pulmonary team was unable to perform biopsy during bronchoscopy. They were recommending reevaluation by ENT given the high vascularity of the mass). -We will follow-up recommendations from ENT and CTS team's Monitor for now 3. Severe obstructive and restrictive pulmonary disease. Status post PFTs -Continue bronchodilators. 4. Type I diabetes mellitus (and not type 2, per endo) - sugars still elevated in the morning, then quite low at lunchtime. Last documented A1c is from December 10 2016, it was 9.4. Appreciate endocrinology consult. -Follow-up endocrinology recommendations guarding further adjustments to aspart and Lantus - monitor fingerstick 5. Hypothyroidism. -Continue Synthroid. 6. Chronic anemia. H&H stable. Will monitor. 7. Significant deconditioning -Continue with physical therapy as tolerated. DVT prophylaxis: Heparin Problems: Subjective 24 Hr Interval Summary Free Text/Dictation No acute events overnight. Evaluated by ENT team. Tolerating diet. Exam/Review of Systems Vital Signs Vitals Vital Signs Date Time Temp Pulse Resp B/P Pulse Ox O2 Delivery O2 Flow Rate FiO2 01/16/17 08:26 98.1 80 18 118/56 97 01/15/17 09:55 Room Air 01/12/17 20:25 21 Intake and Output 01/15/17 01/15/17 01/16/17 15:00 23:00 07:00 Intake Total 120 ml 320 ml 350 ml Output Total 0 ml Balance 120 ml 320 ml 350 ml Exam Lying in bed, alert, no acute distress no mrg lungs clear abd soft no rashes No focal deficits No lower extremity edema bilateral Results Result Diagram: 01/16/17 0503 01/16/17 0503 Results 24 hrs Laboratory Tests Test 01/15/17 17:08 01/15/17 17:35 01/15/17 18:01 01/15/17 20:25 Bedside Glucose 54 L 87 118 85 Test 01/16/17 05:03 01/16/17 07:56 01/16/17 10:09 01/16/17 11:49 White Blood Count 6.2 Red Blood Count 3.68 L Hemoglobin 11.1 L Hematocrit 35.7 L Mean Corpuscular Volume 97.0 Mean Corpuscular Hemoglobin 30.2 Mean Corpuscular Hemoglobin Concent 31.1 L Red Cell Distribution Width 16.7 H Platelet Count 299 Mean Platelet Volume 9.3 Neutrophils % 54.8 Lymphocytes % 22.5 Monocytes % 7.6 Eosinophils % 13.6 H Basophils % 1.0 Nucleated Red Blood Cells % 0.0 Neutrophils # 3.4 Lymphocytes # 1.4 Monocytes # 0.5 Eosinophils # 0.8 H Basophils # 0.1 Nucleated Red Blood Cells # 0.0 Sodium Level 139 Potassium Level 4.7 Chloride Level 99 Carbon Dioxide Level 27 Anion Gap 18 H Blood Urea Nitrogen 11 Creatinine 0.52 Glucose Level 318 H Calcium Level 9.1 Bedside Glucose 376 H 302 H 257 H Test 01/16/17 14:53 Bedside Glucose 251 H Medications Medications Current Medications Ondansetron HCl (Zofran Inj) 4 mg Q6H PRN IV NAUSEA AND/OR VOMITING; Start at 11:30 Acetaminophen (Tylenol Tab) 650 mg Q6H PRN PO PAIN LEVEL 1-3 OR FEVER; Start at 11:30 Acetaminophen (Tylenol Supp) 650 mg Q6H PRN [place] PAIN LEVEL 1-3 OR FEVER; Start 01/06/17 at 11:30 Heparin Sodium (Porcine) (Heparin (5000 Units/0.5 ml)) 5,000 unit Q12 SC Last administered on 01/16/17 08:22; Admin Dose 5,000 UNIT; Start 01/06/17 at 21:00 Alendronate Sodium (Fosamax) 70 mg Q7D PO Last administered on 01/13/17 14:47; Admin Dose 70 MG; Start 01/06/17 at 14:00 Aspirin (Halfprin) 81 mg DAILY PO Last administered on 01/16/17 08:20; Admin Dose 81 MG; Start 01/07/17 at 09:00 Duloxetine HCl (Cymbalta) 20 mg DAILY PO Last administered on 01/16/17 08:20; Admin Dose 20 MG; Start 01/07/17 at 09:00 Gabapentin (Neurontin) 300 mg TID PO Last administered on 01/15/17 20:27; Admin Dose 300 MG; Start 01/06/17 at 13:00 Metoprolol Tartrate (Lopressor) 12.5 mg BID PO ; Start 01/06/17 at 21:00; Status Future Hold Ticagrelor (Brilinta) 90 mg BID PO Last administered on 01/16/17 08:21; Admin Dose 90 MG; Start 01/06/17 at 21:00; Status Future Hold Diagnostic Test (Pha) (Accu-Chek) 1 ea 02 XX ; Start 01/07/17 at 02:00 Furosemide (Lasix) 20 mg DAILY PO ; Start 01/07/17 at 09:00; Status Future Hold Bisacodyl (Dulcolax Supp) 10 mg DAILY PRN [place] CONSTIPATION; Start 01/06/17 at 11 :30 Guaifenesin (Robitussin Liquid Cup) 100 mg Q6H PRN PO COUGH Last administered on 01/08/17 07:54; Admin Dose 100 MG; Start 01/06/17 at 11:30 Levothyroxine Sodium (Synthroid) 112 mcg DAILY@06 PO Last administered on 05:43; Admin Dose 112 MCG; Start 01/07/17 at 06:00 Lisinopril (Zestril) 2.5 mg DAILY PO Last administered on 01/16/17 09:00; Admin Dose 2.5 MG; Start 01/07/17 at 09:00 Polyethylene Glycol (Miralax) 17 gm DAILY PO Last administered on 01/07/17 08: 24; Admin Dose 17 GM; Start 01/07/17 at 09:00 Senna (Senokot) 2 tab HS PO Last administered on 01/15/17 20:27; Admin Dose 2 TAB; Start 01/06/17 at 21:00 Miscellaneous Information 1 ea NOTE XX ; Start 01/06/17 at 12:00 Glucose (Glutose) 15 gm Q15M PRN PO DECREASED GLUCOSE Last administered on 17:11; Admin Dose 15 GM; Start 01/06/17 at 12:00 Glucose (Glutose) 22.5 gm Q15M PRN PO DECREASED GLUCOSE Last administered on 03:34; Admin Dose 22.5 GM; Start 01/06/17 at 12:00 Dextrose (D50w Syringe) 25 ml Q15M PRN IV DECREASED GLUCOSE; Start 01/06/17 at 12:00 Dextrose (D50w Syringe) 50 ml Q15M PRN IV DECREASED GLUCOSE Last administered on 01/15/17 11:52; Admin Dose 50 ML; Start 01/06/17 at 12:00 Glucagon (Glucagen) 1 mg Q15M PRN [place] DECREASED GLUCOSE; Start 01/06/17 at 12:00 Glucose (Glutose) 15 gm Q15M PRN BUCCAL DECREASED GLUCOSE Last administered on 01/10/17 07:07; Admin Dose 15 GM; Start 01/06/17 at 12:00 Atorvastatin Calcium (Lipitor) 40 mg HS PO Last administered on 01/15/17 20:27 ; Admin Dose 40 MG; Start 01/14/17 at 21:00 Lidocaine (Xylocaine 4% (Mpf)) 5 ml ONCE PRN HHN BREATHING TREATMENT Last administered on 01/15/17 09:38; Admin Dose 5 ML; Start 01/15/17 at 09:30 Insulin Glargine (Lantus) 12 unit DAILY@20 SC Last administered on 01/15/17 20: 29; Admin Dose 12 UNIT; Start 01/15/17 at 20:00 TANIYA OLMSTEAD Jan 16, 2017 15:06
[2017-01-16 15:29] VITALS: BP 103/53; RESP 18
--- NOTE | 2017-01-16 15:32 | PN ---
Date/Time of Note Date/Time of Note DATE: 01/16/17 TIME: 15:30 Assessment/Plan Lines/Catheters IV [facility] Type (from [facility] Peripheral IV [place] in Place (from Nrs): No Assessment/Plan Chief Complaint/Hosp Course Patient with coronary artery disease multiple other medical problem Carotid dupplex Occlusion of the right internal carotid artery just beyond its origin due to large plaque burden as seen on the prior MRI. Small plaques involving the visualized portion of the left internal carotid artery without evidence of flow acceleration to suggest a hemodynamically significant stenosis; less than 50% Concern for possible anterior tracheal mass below the vocal cords. This may require investigation prior to coronary artery bypass graft surgery. ENT is recommending bronchoscopy with biopsy first because the mass appears to be in the trachea-this was discussed with pulmonary team today. Plan for coronary artery bypass grafting after resection of subglotic mass per ENT Patient is at very high risk of having surgery secondary to significant comorbidities including carotid occlusion Risks benefits complications alternative therapies explained to the patient Will discuss with Dr. Adames, and Dr Flores Discussed with Dr. Sanz Problems: Subjective 24 Hr Interval Summary Constitutional: improved Pain Control: mild Exam/Review of Systems Vital Signs Vitals Vital Signs Date Time Temp Pulse Resp B/P Pulse Ox O2 Delivery O2 Flow Rate FiO2 01/16/17 08:26 98.1 80 18 118/56 97 01/15/17 09:55 Room Air 01/12/17 20:25 21 Intake and Output 01/15/17 01/15/17 01/16/17 15:00 23:00 07:00 Intake Total 120 ml 320 ml 350 ml Output Total 0 ml Balance 120 ml 320 ml 350 ml Exam Neck: non-tender, supple Respiratory: clear to auscultation, normal air movement Cardiovascular: nl pulses, regular rate and rhythm Gastrointestinal: nl liver, spleen, non-tender, soft Results Result Diagram: 01/16/17 0503 01/16/17 0503 CHELA ALVARENGA MD Jan 16, 2017 15:32
--- NOTE | 2017-01-16 18:26 | CONS ---
Date/Time of Note Date/Time of Note DATE: 01/16/17 TIME: 18:22 Assessment/Plan Assessment/Plan Problems: (1) Type 1 diabetes mellitus with diabetic polyneuropathy Status: Chronic Comment: Pt. continues to have fasting hyperglycemia. However, we now know this is because education research analyst is not following proper protocols and is over feeding patient at hs. Pt. encouraged not to take carbs at hs and education research analyst ordered to call if pt. wants hs snack. Pt. advised she does not know what her O /N BG will do so paranoia re: hypos does not help her. Have reordered 0200 accu -chek. FS high throughout day today following fasting hyperglycemia this am but now improving. Will cont. current insulin doses and reeval tomorrow, hoping RN dose night provide hs snack. Consultation Date/Type/Reason Admit Date/Time Jan 06, 2017 at 10:49 Initial Consult Date 01/14/17 Type of Consultation: Endocrinology Reason for Consultation T1DM OOC Referring Provider: TANIYA OLMSTEAD 24 HR Interval Summary Constitutional: no complaints Detailed Summary Respiratory: no complaints Cardiovascular: no complaints Gastrointestinal: no complaints Genitourinary: no complaints Musculoskeletal: no complaints Neurologic: no complaints Endocrine: other (admits to being given hs snacks by education research analyst b/c she is afraid of O/N hypoglycemia) Exam/Review of Systems Vital Signs Vitals VS - Last 72 Hours, by Label Date Time Temp Pulse Resp B/P Pulse Ox O2 Delivery O2 Flow Rate FiO2 01/16/17 15:29 98.7 85 18 103/53 98 01/16/17 08:26 98.1 80 18 118/56 97 01/16/17 02:00 98.7 85 20 107/53 98 01/15/17 20:00 98.0 88 20 117/56 97 01/15/17 14:00 97.4 83 18 94/46 98 01/15/17 10:12 98.2 01/15/17 09:55 98.2 85 14 103/70 96 Room Air 01/15/17 08:14 98.9 79 19 107/52 95 Room Air 01/15/17 08:00 98.9 79 19 107/52 95 01/15/17 03:02 97.7 83 18 110/53 96 01/14/17 21:08 98.2 89 18 100/49 97 01/14/17 15:42 97 97/46 01/14/17 15:41 89 99/49 01/14/17 15:39 97.8 87 18 101/49 96 01/14/17 08:20 97.9 82 16 93/50 97 01/14/17 02:58 98.2 85 18 99/54 95 01/13/17 21:00 97.9 86 18 96/50 96 Vital Signs Date Time Temp Pulse Resp B/P Pulse Ox O2 Delivery O2 Flow Rate FiO2 01/16/17 15:29 98.7 85 18 103/53 98 01/15/17 09:55 Room Air 01/12/17 20:25 21 Intake and Output 01/15/17 01/15/17 01/16/17 15:00 23:00 07:00 Intake Total 120 ml 320 ml 350 ml Output Total 0 ml Balance 120 ml 320 ml 350 ml Exam Constitutional: alert, oriented, well developed Psych: nl mood/affect, no complaints Respiratory: clear to auscultation, normal air movement Cardiovascular: nl pulses, regular rate and rhythm, No edema, No murmurs/extra sounds, No rub Gastrointestinal: bowel sounds, nl liver, spleen, non-tender, soft, No mass, No rebound or guarding Musculoskeletal: nl extremities to inspection Extremities: normal pulses, No clubbing, No cyanosis, No edema 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: PHYSICIAN COMPENSATION ANALYST II-XII intact, nl mental status, nl speech, nl strength Additional Comments Bedside Glucose - 72 Hours Test 01/13/17 20:15 01/14/17 08:04 01/14/17 11:44 01/14/17 17:24 Bedside Glucose 128mg/dL (70-220) 128mg/dL (70-220) 218mg/dL (70-220) 110mg/dL (70-220) Test 01/14/17 20:50 01/15/17 07:40 01/15/17 08:24 01/15/17 11:50 Bedside Glucose 89mg/dL (70-220) 306mg/dL (70-220) H 253mg/dL (70-220) H 43mg/dL (70-220) *L Test 01/15/17 12:12 01/15/17 12:30 01/15/17 14:22 01/15/17 17:08 Bedside Glucose 190mg/dL (70-220) 250mg/dL (70-220) H 143mg/dL (70-220) 54mg/dL (70-220) L Test 01/15/17 17:35 01/15/17 18:01 01/15/17 20:25 01/16/17 07:56 Bedside Glucose 87mg/dL (70-220) 118mg/dL (70-220) 85mg/dL (70-220) 376mg/dL (70-220) H Test 01/16/17 10:09 01/16/17 11:49 01/16/17 14:53 01/16/17 16:47 Bedside Glucose 302mg/dL (70-220) H 257mg/dL (70-220) H 251mg/dL (70-220) H 118mg/dL (70-220) Results Result Diagram: 01/16/17 0503 01/16/17 0503 Results 24 hrs Laboratory Tests Test 01/15/17 20:25 01/16/17 05:03 01/16/17 07:56 01/16/17 10:09 Bedside Glucose 85 376 H 302 H White Blood Count 6.2 Red Blood Count 3.68 L Hemoglobin 11.1 L Hematocrit 35.7 L Mean Corpuscular Volume 97.0 Mean Corpuscular Hemoglobin 30.2 Mean Corpuscular Hemoglobin Concent 31.1 L Red Cell Distribution Width 16.7 H Platelet Count 299 Mean Platelet Volume 9.3 Neutrophils % 54.8 Lymphocytes % 22.5 Monocytes % 7.6 Eosinophils % 13.6 H Basophils % 1.0 Nucleated Red Blood Cells % 0.0 Neutrophils # 3.4 Lymphocytes # 1.4 Monocytes # 0.5 Eosinophils # 0.8 H Basophils # 0.1 Nucleated Red Blood Cells # 0.0 Sodium Level 139 Potassium Level 4.7 Chloride Level 99 Carbon Dioxide Level 27 Anion Gap 18 H Blood Urea Nitrogen 11 Creatinine 0.52 Glucose Level 318 H Calcium Level 9.1 Test 01/16/17 11:49 01/16/17 14:53 01/16/17 16:47 Bedside Glucose 257 H 251 H 118 Medications Medications Current Medications Ondansetron HCl (Zofran Inj) 4 mg Q6H PRN IV NAUSEA AND/OR VOMITING; Start at 11:30 Acetaminophen (Tylenol Tab) 650 mg Q6H PRN PO PAIN LEVEL 1-3 OR FEVER; Start at 11:30 Acetaminophen (Tylenol Supp) 650 mg Q6H PRN [place] PAIN LEVEL 1-3 OR FEVER; Start 01/06/17 at 11:30 Heparin Sodium (Porcine) (Heparin (5000 Units/0.5 ml)) 5,000 unit Q12 SC Last administered on 01/16/17 08:22; Admin Dose 5,000 UNIT; Start 01/06/17 at 21:00 Alendronate Sodium (Fosamax) 70 mg Q7D PO Last administered on 01/13/17 14:47; Admin Dose 70 MG; Start 01/06/17 at 14:00 Aspirin (Halfprin) 81 mg DAILY PO Last administered on 01/16/17 08:20; Admin Dose 81 MG; Start 01/07/17 at 09:00 Duloxetine HCl (Cymbalta) 20 mg DAILY PO Last administered on 01/16/17 08:20; Admin Dose 20 MG; Start 01/07/17 at 09:00 Gabapentin (Neurontin) 300 mg TID PO Last administered on 01/15/17 20:27; Admin Dose 300 MG; Start 01/06/17 at 13:00 Metoprolol Tartrate (Lopressor) 12.5 mg BID PO ; Start 01/06/17 at 21:00; Status Future Hold Ticagrelor (Brilinta) 90 mg BID PO Last administered on 01/16/17 08:21; Admin Dose 90 MG; Start 01/06/17 at 21:00; Status Future Hold Diagnostic Test (Pha) (Accu-Chek) 1 ea 02 XX ; Start 01/07/17 at 02:00 Furosemide (Lasix) 20 mg DAILY PO ; Start 01/07/17 at 09:00; Status Future Hold Bisacodyl (Dulcolax Supp) 10 mg DAILY PRN [place] CONSTIPATION; Start 01/06/17 at 11 :30 Guaifenesin (Robitussin Liquid Cup) 100 mg Q6H PRN PO COUGH Last administered on 01/08/17 07:54; Admin Dose 100 MG; Start 01/06/17 at 11:30 Levothyroxine Sodium (Synthroid) 112 mcg DAILY@06 PO Last administered on 05:43; Admin Dose 112 MCG; Start 01/07/17 at 06:00 Lisinopril (Zestril) 2.5 mg DAILY PO Last administered on 01/16/17 09:00; Admin Dose 2.5 MG; Start 01/07/17 at 09:00 Polyethylene Glycol (Miralax) 17 gm DAILY PO Last administered on 01/07/17 08: 24; Admin Dose 17 GM; Start 01/07/17 at 09:00 Senna (Senokot) 2 tab HS PO Last administered on 01/15/17 20:27; Admin Dose 2 TAB; Start 01/06/17 at 21:00 Miscellaneous Information 1 ea NOTE XX ; Start 01/06/17 at 12:00 Glucose (Glutose) 15 gm Q15M PRN PO DECREASED GLUCOSE Last administered on 17:11; Admin Dose 15 GM; Start 01/06/17 at 12:00 Glucose (Glutose) 22.5 gm Q15M PRN PO DECREASED GLUCOSE Last administered on 03:34; Admin Dose 22.5 GM; Start 01/06/17 at 12:00 Dextrose (D50w Syringe) 25 ml Q15M PRN IV DECREASED GLUCOSE; Start 01/06/17 at 12:00 Dextrose (D50w Syringe) 50 ml Q15M PRN IV DECREASED GLUCOSE Last administered on 01/15/17 11:52; Admin Dose 50 ML; Start 01/06/17 at 12:00 Glucagon (Glucagen) 1 mg Q15M PRN IM DECREASED GLUCOSE; Start 01/06/17 at 12:00 Glucose (Glutose) 15 gm Q15M PRN BUCCAL DECREASED GLUCOSE Last administered on 01/10/17 07:07; Admin Dose 15 GM; Start 01/06/17 at 12:00 Atorvastatin Calcium (Lipitor) 40 mg HS PO Last administered on 01/15/17 20:27 ; Admin Dose 40 MG; Start 01/14/17 at 21:00 Lidocaine (Xylocaine 4% (Mpf)) 5 ml ONCE PRN HHN BREATHING TREATMENT Last administered on 01/15/17 09:38; Admin Dose 5 ML; Start 01/15/17 at 09:30 Insulin Glargine (Lantus) 12 unit DAILY@20 SC Last administered on 01/15/17t 20: 29; Admin Dose 12 UNIT; Start 01/15/17 at 20:00 DARYL MYERS MD Jan 16, 2017 18:26
[2017-01-16 20:00] VITALS: BP 102/79; RESP 20
[2017-01-16] MEDS: INSULIN GLARGINE [LANtus] 3 ML PEN SC SCH (21:05)
[2017-01-16] MEDS: SENNA TAB PO SCH (21:06)
[2017-01-16] MEDS: ATORVASTATIN 40 MG TAB PO SCH (21:06)
[2017-01-17] MEDS: ACCU-CHEK XX SCH ×4 (01:59→20:05)
[2017-01-17 02:00] VITALS: BP 110/56; RESP 20
[2017-01-17] MEDS: LEVOTHYROXINE 112 MCG TAB PO SCH (06:06)
[2017-01-17 06:44] LABS: BASOPHIL # 0.1 10^3/ul (0.0-0.1); BASOPHILS % 1.6 % (0.0-2.0); EOSINOPHILS # 0.9 10^3/ul (0.0-0.5); EOSINOPHILS % 15.6 % (0.0-7.0); HEMATOCRIT 36.1 % (37.0-47.0); HEMOGLOBIN 11.6 g/dl (12.0-16.0); LYMPHOCYTES # 1.5 10^3/ul (0.8-2.9); LYMPHOCYTES % 27.2 % (15.0-51.0); MEAN CORPUSCULAR HEMOGLOBIN 30.8 pg (29.0-33.0); MEAN CORPUSCULAR HGB CONC 32.1 g/dl (32.0-37.0); MEAN CORPUSCULAR VOLUME 95.8 fl (82.0-101.0); MEAN PLATELET VOLUME 9.4 fl (7.4-10.4); MONOCYTE # 0.5 10^3/ul (0.3-0.9); NEUTROPHIL # 2.7 10^3/ul (1.6-7.5); NEUTROPHILS % 47.2 % (39.0-77.0); PLATELET COUNT 294 10^3/UL (140-415); RED BLOOD COUNT 3.77 10^6/ul (4.20-5.40); RED CELL DISTRIBUTION WIDTH 16.3 % (11.5-14.5); WHITE BLOOD COUNT 5.6 10^3/ul (4.8-10.8)
[2017-01-17 06:58] LABS: CALCIUM 9.3 mg/dl (8.4-10.2); CREATININE 0.53 mg/dl (0.44-1.00); POTASSIUM 4.4 mmol/L (3.5-5.1)
[2017-01-17 07:09] LABS: MAGNESIUM 1.7 mg/dl (1.7-2.5)
[2017-01-17] MEDS: INSULIN ASPART [NOVOLOG] 3 ML PEN SC SCH ×7 (07:59→21:00)
[2017-01-17 08:00] VITALS: BP 114/51; RESP 19
[2017-01-17] MEDS: ASPIRIN (EC) 81 MG TAB PO SCH (08:01)
[2017-01-17] MEDS: GABAPENTIN 300 MG CAP PO SCH ×3 (08:01→20:53)
[2017-01-17] MEDS: DULOXETINE 20 MG CAP DR PO SCH (08:01)
[2017-01-17] MEDS: HEPARIN 5,000 UNIT/0.5 ML VIAL SC SCH ×2 (08:01→20:54)
[2017-01-17] MEDS: LISINOPRIL 5 MG TAB PO SCH (08:02)
[2017-01-17] MEDS: POLYETHYLENE GLYCOL 17 GM PACKET PO SCH (09:00)
--- NOTE | 2017-01-17 11:51 | CONS ---
Date/Time of Note Date/Time of Note DATE: 01/17/17 TIME: 11:49 Assessment/Plan Assessment/Plan Problems: (1) Type 1 diabetes mellitus with diabetic polyneuropathy Status: Chronic Comment: Continuing just medications gently to get this patient sugars under control. Please note from an endocrine standpoint she is stable to proceed with any type of surgical procedure. The array of which surgical procedures is what the question is. She needs to have some type of diagnosis of what this mass is in the subglottic space and she also needs her heart taking care of. I will defer this off to my colleagues that it may be an idea to do the tracheostomy and biopsy followed by the open heart bypass 48 hours later (2) COPD (chronic obstructive pulmonary disease) with chronic bronchitis Status: Chronic Comment: She is on medications and compensated. However she has a mass in the tracheal area (3) Acquired hypothyroidism Status: Chronic Comment: She is on replacement therapy (4) CAD (coronary artery disease), [place] coronary artery Status: Chronic Comment: Awaiting cardiothoracic intervention Qualifiers: [place] vs. transplanted heart: [place] heart Associated angina: with unstable angina Qualified Code: I25.110 - Coronary artery disease involving [place] coronary artery of [place] heart with unstable angina pectoris Consultation Date/Type/Reason Admit Date/Time Jan 06, 2017 at 10:49 Initial Consult Date 01/16/17 Type of Consultation: Endocrinology Reason for Consultation Type 1 diabetes mellitus; COPD; tobacco abuse; subglottic mass; triple-vessel coronary disease with decreased EF; Referring Provider: TANIYA OLMSTEAD 24 HR Interval Summary Free Text/Dictation No significant changes on overall status. Exam/Review of Systems Vital Signs Vitals Vital Signs Date Time Temp Pulse Resp B/P Pulse Ox O2 Delivery O2 Flow Rate FiO2 01/17/17 08:00 98.6 86 19 114/51 97 01/15/17 09:55 Room Air Intake and Output 01/16/17 01/16/17 01/17/17 15:00 23:00 07:00 Intake Total 1280 ml 300 ml Balance 1280 ml 300 ml Exam No change in exam. Results Result Diagram: 01/17/17 0531 01/17/17 0531 Results 24 hrs Laboratory Tests Test 01/16/17 14:53 01/16/17 16:47 01/16/17 21:01 01/17/17 01:51 Bedside Glucose 251 H 118 118 254 H Test 01/17/17 05:31 01/17/17 07:56 01/17/17 10:06 White Blood Count 5.6 Red Blood Count 3.77 L Hemoglobin 11.6 L Hematocrit 36.1 L Mean Corpuscular Volume 95.8 Mean Corpuscular Hemoglobin 30.8 Mean Corpuscular Hemoglobin Concent 32.1 Red Cell Distribution Width 16.3 H Platelet Count 294 Mean Platelet Volume 9.4 Neutrophils % 47.2 Lymphocytes % 27.2 Monocytes % 8.0 Eosinophils % 15.6 H Basophils % 1.6 Nucleated Red Blood Cells % 0.0 Neutrophils # 2.7 Lymphocytes # 1.5 Monocytes # 0.5 Eosinophils # 0.9 H Basophils # 0.1 Nucleated Red Blood Cells # 0.0 Sodium Level 142 Potassium Level 4.4 Chloride Level 101 Carbon Dioxide Level 28 Anion Gap 17 H Blood Urea Nitrogen 11 Creatinine 0.53 Glucose Level 230 H Calcium Level 9.3 Phosphorus Level 4.0 Magnesium Level 1.7 Bedside Glucose 279 H 189 Medications Medications Current Medications Ondansetron HCl (Zofran Inj) 4 mg Q6H PRN IV NAUSEA AND/OR VOMITING; Start at 11:30 Acetaminophen (Tylenol Tab) 650 mg Q6H PRN PO PAIN LEVEL 1-3 OR FEVER; Start at 11:30 Acetaminophen (Tylenol Supp) 650 mg Q6H PRN [place] PAIN LEVEL 1-3 OR FEVER; Start 01/06/17 at 11:30 Heparin Sodium (Porcine) (Heparin (5000 Units/0.5 ml)) 5,000 unit Q12 SC Last administered on 01/17/17 08:01; Admin Dose 5,000 UNIT; Start 01/06/17 at 21:00 Alendronate Sodium (Fosamax) 70 mg Q7D PO Last administered on 01/13/17 14:47; Admin Dose 70 MG; Start 01/06/17 at 14:00 Aspirin (Halfprin) 81 mg DAILY PO Last administered on 01/17/17 08:01; Admin Dose 81 MG; Start 01/07/17 at 09:00 Duloxetine HCl (Cymbalta) 20 mg DAILY PO Last administered on 01/17/17 08:01; Admin Dose 20 MG; Start 01/07/17 at 09:00 Gabapentin (Neurontin) 300 mg TID PO Last administered on 01/17/17 08:01; Admin Dose 300 MG; Start 01/06/17 at 13:00 Metoprolol Tartrate (Lopressor) 12.5 mg BID PO ; Start 01/06/17 at 21:00; Status Future Hold Ticagrelor (Brilinta) 90 mg BID PO Last administered on 01/16/17 08:21; Admin Dose 90 MG; Start 01/06/17 at 21:00; Status Future Hold Diagnostic Test (Pha) (Accu-Chek) 1 ea 02 XX ; Start 01/07/17 at 02:00 Furosemide (Lasix) 20 mg DAILY PO ; Start 01/07/17 at 09:00; Status Future Hold Bisacodyl (Dulcolax Supp) 10 mg DAILY PRN [place] CONSTIPATION; Start 01/06/17 at 11 :30 Guaifenesin (Robitussin Liquid Cup) 100 mg Q6H PRN PO COUGH Last administered on 01/08/17 07:54; Admin Dose 100 MG; Start 01/06/17 at 11:30 Levothyroxine Sodium (Synthroid) 112 mcg DAILY@06 PO Last administered on 06:06; Admin Dose 112 MCG; Start 01/07/17 at 06:00 Lisinopril (Zestril) 2.5 mg DAILY PO Last administered on 01/17/17 08:02; Admin Dose 2.5 MG; Start 01/07/17 at 09:00 Polyethylene Glycol (Miralax) 17 gm DAILY PO Last administered on 01/07/17 08: 24; Admin Dose 17 GM; Start 01/07/17 at 09:00 Senna (Senokot) 2 tab HS PO Last administered on 01/16/17 21:06; Admin Dose 2 TAB; Start 01/06/17 at 21:00 Miscellaneous Information 1 ea NOTE XX ; Start 01/06/17 at 12:00 Glucose (Glutose) 15 gm Q15M PRN PO DECREASED GLUCOSE Last administered on 17:11; Admin Dose 15 GM; Start 01/06/17 at 12:00 Glucose (Glutose) 22.5 gm Q15M PRN PO DECREASED GLUCOSE Last administered on 03:34; Admin Dose 22.5 GM; Start 01/06/17 at 12:00 Dextrose (D50w Syringe) 25 ml Q15M PRN IV DECREASED GLUCOSE; Start 01/06/17 at 12:00 Dextrose (D50w Syringe) 50 ml Q15M PRN IV DECREASED GLUCOSE Last administered on 01/15/17 11:52; Admin Dose 50 ML; Start 01/06/17 at 12:00 Glucagon (Glucagen) 1 mg Q15M PRN IM DECREASED GLUCOSE; Start 01/06/17 at 12:00 Glucose (Glutose) 15 gm Q15M PRN BUCCAL DECREASED GLUCOSE Last administered on 01/10/17 07:07; Admin Dose 15 GM; Start 01/06/17 at 12:00 Atorvastatin Calcium (Lipitor) 40 mg HS PO Last administered on 01/16/17 21:06 ; Admin Dose 40 MG; Start 01/14/17 at 21:00 Lidocaine (Xylocaine 4% (Mpf)) 5 ml ONCE PRN HHN BREATHING TREATMENT Last administered on 01/15/17 09:38; Admin Dose 5 ML; Start 01/15/17 at 09:30 Insulin Glargine (Lantus) 12 unit DAILY@20 SC Last administered on 01/16/17 21: 05; Admin Dose 12 UNIT; Start 01/15/17 at 20:00 CODY HENAO MD Jan 17, 2017 11:51
--- NOTE | 2017-01-17 12:50 | PN ---
Date/Time of Note Date/Time of Note DATE: 01/17/17 TIME: 12:49 Assessment/Plan Lines/Catheters IV Catheter Type (from Nrs): Peripheral IV Mccray in Place (from Nrs): No Assessment/Plan Chief Complaint/Hosp Course Patient with coronary artery disease multiple other medical problem Carotid dupplex Occlusion of the right internal carotid artery just beyond its origin due to large plaque burden as seen on the prior MRI. Small plaques involving the visualized portion of the left internal carotid artery without evidence of flow acceleration to suggest a hemodynamically significant stenosis; less than 50% Concern for possible anterior tracheal mass below the vocal cords. This may require investigation prior to coronary artery bypass graft surgery. ENT is recommending bronchoscopy with biopsy first because the mass appears to be in the trachea-this was discussed with pulmonary team today. Plan for coronary artery bypass grafting after resection of subglotic mass per ENT Patient is at very high risk of having surgery secondary to significant comorbidities including carotid occlusion Risks benefits complications alternative therapies explained to the patient Will discuss with Dr. Adames, and Dr Flores Discussed with Dr. Sanz Problems: Subjective 24 Hr Interval Summary Constitutional: improved Pain Control: mild Exam/Review of Systems Vital Signs Vitals Vital Signs Date Time Temp Pulse Resp B/P Pulse Ox O2 Delivery O2 Flow Rate FiO2 01/17/17 08:00 98.6 86 19 114/51 97 01/15/17 09:55 Room Air Intake and Output 01/16/17 01/16/17 01/17/17 15:00 23:00 07:00 Intake Total 1280 ml 300 ml Balance 1280 ml 300 ml Exam Neck: non-tender, supple Respiratory: clear to auscultation, normal air movement Cardiovascular: nl pulses, regular rate and rhythm Gastrointestinal: nl liver, spleen, non-tender, soft Results Result Diagram: 01/17/17 0531 01/17/17 0531 CHELA ALVARENGA MD Jan 17, 2017 12:50
--- NOTE | 2017-01-17 13:11 | CONS ---
Date/Time of Note Date/Time of Note DATE: 01/17/17 TIME: 13:07 Assessment/Plan Assessment/Plan Additional Assessment/Plan CAD with Triple vessel disease Carotid artery disease Neck Mass Hypertension Diabetes Dyslipidemia Hemodynamically stable Awaiting Bypass surgery Continue Lisinopril Continue Levothyroxine Continue Insulin Continue Lipitor Continue GI and DVT Prophylaxis Consultation Date/Type/Reason Admit Date/Time Jan 06, 2017 at 10:49 Constitutional: no complaints Eyes: no complaints ENT: no complaints Respiratory: no complaints Cardiovascular: no complaints Gastrointestinal: no complaints Genitourinary: no complaints Musculoskeletal: no complaints Skin: no complaints Neurologic: no complaints Endocrine: other Psychological: nl mood/affect, no complaints Past Medical History Medical History: angina, congestive heart failure (systolic w/ EF 25%), coronary artery disease (w/ NSTEMI), diabetes (T1, multiple episodes of DKA), high cholesterol, hypothyroid, other (COPD) Past Surgical History Past Surgical Hx: other (c-sect, T&A) Social History Alcohol Use: none Smoking Status: Current every day smoker (1.5 ppd x 30 y) Drug Use: none Exam/Review of Systems Vital Signs Vitals Vital Signs Date Time Temp Pulse Resp B/P Pulse Ox O2 Delivery O2 Flow Rate FiO2 01/17/17 08:00 98.6 86 19 114/51 97 01/15/17 09:55 Room Air Intake and Output 01/16/17 01/16/17 01/17/17 15:00 23:00 07:00 Intake Total 1280 ml 300 ml Balance 1280 ml 300 ml Exam Constitutional: alert, oriented Psych: no complaints Head: atraumatic, normocephalic Neck: non-tender, supple Respiratory: clear to auscultation Cardiovascular: regular rate and rhythm Gastrointestinal: nl liver, spleen, non-tender, soft Extremities: normal pulses Results Result Diagram: 01/17/17 0531 01/17/17 0531 Results 24 hrs Laboratory Tests Test 01/16/17 14:53 01/16/17 16:47 01/16/17 21:01 01/17/17 01:51 Bedside Glucose 251 H 118 118 254 H Test 01/17/17 05:31 01/17/17 07:56 01/17/17 10:06 01/17/17 12:17 White Blood Count 5.6 Red Blood Count 3.77 L Hemoglobin 11.6 L Hematocrit 36.1 L Mean Corpuscular Volume 95.8 Mean Corpuscular Hemoglobin 30.8 Mean Corpuscular Hemoglobin Concent 32.1 Red Cell Distribution Width 16.3 H Platelet Count 294 Mean Platelet Volume 9.4 Neutrophils % 47.2 Lymphocytes % 27.2 Monocytes % 8.0 Eosinophils % 15.6 H Basophils % 1.6 Nucleated Red Blood Cells % 0.0 Neutrophils # 2.7 Lymphocytes # 1.5 Monocytes # 0.5 Eosinophils # 0.9 H Basophils # 0.1 Nucleated Red Blood Cells # 0.0 Sodium Level 142 Potassium Level 4.4 Chloride Level 101 Carbon Dioxide Level 28 Anion Gap 17 H Blood Urea Nitrogen 11 Creatinine 0.53 Glucose Level 230 H Calcium Level 9.3 Phosphorus Level 4.0 Magnesium Level 1.7 Bedside Glucose 279 H 189 108 Medications Medications Current Medications Ondansetron HCl (Zofran Inj) 4 mg Q6H PRN IV NAUSEA AND/OR VOMITING; Start at 11:30 Acetaminophen (Tylenol Tab) 650 mg Q6H PRN PO PAIN LEVEL 1-3 OR FEVER; Start at 11:30 Acetaminophen (Tylenol Supp) 650 mg Q6H PRN [place] PAIN LEVEL 1-3 OR FEVER; Start 01/06/17 at 11:30 Heparin Sodium (Porcine) (Heparin (5000 Units/0.5 ml)) 5,000 unit Q12 SC Last administered on 01/17/17 08:01; Admin Dose 5,000 UNIT; Start 01/06/17 at 21:00 Alendronate Sodium (Fosamax) 70 mg Q7D PO Last administered on 01/13/17 14:47; Admin Dose 70 MG; Start 01/06/17 at 14:00 Aspirin (Halfprin) 81 mg DAILY PO Last administered on 01/17/17 08:01; Admin Dose 81 MG; Start 01/07/17 at 09:00 Duloxetine HCl (Cymbalta) 20 mg DAILY PO Last administered on 01/17/17 08:01; Admin Dose 20 MG; Start 01/07/17 at 09:00 Gabapentin (Neurontin) 300 mg TID PO Last administered on 01/17/17 13:01; Admin Dose 300 MG; Start 01/06/17 at 13:00 Metoprolol Tartrate (Lopressor) 12.5 mg BID PO ; Start 01/06/17 at 21:00; Status Future Hold Ticagrelor (Brilinta) 90 mg BID PO Last administered on 01/16/17 08:21; Admin Dose 90 MG; Start 01/06/17 at 21:00; Status Future Hold Diagnostic Test (Pha) (Accu-Chek) 1 ea 02 XX ; Start 01/07/17 at 02:00 Furosemide (Lasix) 20 mg DAILY PO ; Start 01/07/17 at 09:00; Status Future Hold Bisacodyl (Dulcolax Supp) 10 mg DAILY PRN [place] CONSTIPATION; Start 01/06/17 at 11 :30 Guaifenesin (Robitussin Liquid Cup) 100 mg Q6H PRN PO COUGH Last administered on 01/08/17 07:54; Admin Dose 100 MG; Start 01/06/17 at 11:30 Levothyroxine Sodium (Synthroid) 112 mcg DAILY@06 PO Last administered on 06:06; Admin Dose 112 MCG; Start 01/07/17 at 06:00 Lisinopril (Zestril) 2.5 mg DAILY PO Last administered on 01/17/17 08:02; Admin Dose 2.5 MG; Start 01/07/17 at 09:00 Polyethylene Glycol (Miralax) 17 gm DAILY PO Last administered on 01/07/17 08: 24; Admin Dose 17 GM; Start 01/07/17 at 09:00 Senna (Senokot) 2 tab HS PO Last administered on 01/16/17 21:06; Admin Dose 2 TAB; Start 01/06/17 at 21:00 Miscellaneous Information 1 ea NOTE XX ; Start 01/06/17 at 12:00 Glucose (Glutose) 15 gm Q15M PRN PO DECREASED GLUCOSE Last administered on 17:11; Admin Dose 15 GM; Start 01/06/17 at 12:00 Glucose (Glutose) 22.5 gm Q15M PRN PO DECREASED GLUCOSE Last administered on 03:34; Admin Dose 22.5 GM; Start 01/06/17 at 12:00 Dextrose (D50w Syringe) 25 ml Q15M PRN IV DECREASED GLUCOSE; Start 7/25/17 at 12:00 Dextrose (D50w Syringe) 50 ml Q15M PRN IV DECREASED GLUCOSE Last administered on 01/15/17 11:52; Admin Dose 50 ML; Start 01/06/17 at 12:00 Glucagon (Glucagen) 1 mg Q15M PRN IM DECREASED GLUCOSE; Start 01/06/17 at 12:00 Glucose (Glutose) 15 gm Q15M PRN BUCCAL DECREASED GLUCOSE Last administered on 01/10/17 07:07; Admin Dose 15 GM; Start 01/06/17 at 12:00 Atorvastatin Calcium (Lipitor) 40 mg HS PO Last administered on 01/16/17 21:06 ; Admin Dose 40 MG; Start 01/14/17 at 21:00 Lidocaine (Xylocaine 4% (Mpf)) 5 ml ONCE PRN HHN BREATHING TREATMENT Last administered on 01/15/17 09:38; Admin Dose 5 ML; Start 01/15/17 at 09:30 Insulin Glargine (Lantus) 14 unit DAILY@20 SC ; Start 01/17/17 at 20:00 HALI ALVARADO M.D. Jan 17, 2017 13:11
[2017-01-17 14:00] VITALS: BP 99/53; RESP 19
--- NOTE | 2017-01-17 16:37 | PN ---
Date/Time of Note Date/Time of Note DATE: 01/17/17 TIME: 16:29 Assessment/Plan VTE Prophylaxis VTE Prophylaxis Intervention: heparin Lines/Catheters IV Catheter Type (from Nrs): Peripheral IV Urinary Cath still in place: No Assessment/Plan Chief Complaint/Hosp Course Assessment/Plan: 56 yo F with poorly controlled DM2 admitted for NSTEMI in setting DKA. Found to have multivessel CAD. Awaiting CABG. Also with incidental finding of L sided subglottic lesion. 1. multivessel CAD, recent NSTEMI, ICM with EF <25%. CABG pending, date TBD, although according to CTS patient is at very high risk of having surgery secondary to significant comorbidities including carotid occlusion, specifically occlusion of the right internal carotid artery just beyond its origin due to large plaque burden as seen on the prior MRI. -cont current cardiac meds, follow-up CTS recommendations. -bb/lasix on hold for prior episodes of orthostasis earlier this admission 2. L subglottic lesion: Per discussion with ENT team, they are recommending tracheostomy before any attempt at biopsy of the subglottic mass or lesion could be performed, given the high risk of possible bleeding. They are going to discuss with cardiothoracic surgery team about when to do this versus when to do the open heart surgery attempt. (ENT initially recommended bronchoscopy, which was attempted 2 days ago by the pulmonary team but they were unable to perform the biopsy given the high vascularity of the lesion. Hence the evaluation by ENT given the high vascularity of the mass). -We will follow-up recommendations from ENT and CTS team's -a suggestion by endocrinology team is possibly to perform the tracheostomy and biopsy of the subglottic mass, followed by the open heart bypass 48 hours later 3. Severe obstructive and restrictive pulmonary disease. Status post PFTs -Continue bronchodilators. 4. Type I diabetes mellitus (and not type 2, per endo) - sugars still elevated in the morning, then quite low at lunchtime. Last documented A1c is from December 10 2016, it was 9.4. Appreciate endocrinology consult. They are suggesting patient may be suffering from a [place] effect overnight and actually experiencing multiple hypoglycemic episodes throughout the night resulting in an exaggerated glucagon and epinephrine response in the AM. -Follow-up endocrinology recommendations regarding further adjustments to aspart and Lantus - monitor fingerstick 5. Hypothyroidism. -Continue Synthroid. 6. Chronic anemia. H&H stable. Will monitor. 7. Significant deconditioning -Continue with physical therapy as tolerated. DVT prophylaxis: Heparin Problems: Subjective 24 Hr Interval Summary Free Text/Dictation No acute events overnight, seen by cardiology, CTS, endocrinology teams today. Exam/Review of Systems Vital Signs Vitals Vital Signs Date Time Temp Pulse Resp B/P Pulse Ox O2 Delivery O2 Flow Rate FiO2 01/17/17 14:00 98.1 88 19 99/53 97 01/15/17 09:55 Room Air Intake and Output 01/16/17 01/16/17 01/17/17 15:00 23:00 07:00 Intake Total 1280 ml 300 ml Balance 1280 ml 300 ml Exam Lying in bed, alert, no acute distress no mrg lungs clear abd soft no rashes No focal deficits No lower extremity edema bilateral Results Result Diagram: 01/17/17 0531 01/17/17 0531 Results 24 hrs Laboratory Tests Test 01/16/17 16:47 01/16/17 21:01 01/17/17 01:51 01/17/17 05:31 Bedside Glucose 118 118 254 H White Blood Count 5.6 Red Blood Count 3.77 L Hemoglobin 11.6 L Hematocrit 36.1 L Mean Corpuscular Volume 95.8 Mean Corpuscular Hemoglobin 30.8 Mean Corpuscular Hemoglobin Concent 32.1 Red Cell Distribution Width 16.3 H Platelet Count 294 Mean Platelet Volume 9.4 Neutrophils % 47.2 Lymphocytes % 27.2 Monocytes % 8.0 Eosinophils % 15.6 H Basophils % 1.6 Nucleated Red Blood Cells % 0.0 Neutrophils # 2.7 Lymphocytes # 1.5 Monocytes # 0.5 Eosinophils # 0.9 H Basophils # 0.1 Nucleated Red Blood Cells # 0.0 Sodium Level 142 Potassium Level 4.4 Chloride Level 101 Carbon Dioxide Level 28 Anion Gap 17 H Blood Urea Nitrogen 11 Creatinine 0.53 Glucose Level 230 H Calcium Level 9.3 Phosphorus Level 4.0 Magnesium Level 1.7 Test 01/17/17 07:56 01/17/17 10:06 01/17/17 12:17 01/17/17 14:32 Bedside Glucose 279 H 189 108 71 Medications Medications Current Medications Ondansetron HCl (Zofran Inj) 4 mg Q6H PRN IV NAUSEA AND/OR VOMITING; Start at 11:30 Acetaminophen (Tylenol Tab) 650 mg Q6H PRN PO PAIN LEVEL 1-3 OR FEVER; Start at 11:30 Acetaminophen (Tylenol Supp) 650 mg Q6H PRN [place] PAIN LEVEL 1-3 OR FEVER; Start 01/06/17 at 11:30 Heparin Sodium (Porcine) (Heparin (5000 Units/0.5 ml)) 5,000 unit Q12 SC Last administered on 01/17/17 08:01; Admin Dose 5,000 UNIT; Start 01/06/17 at 21:00 Alendronate Sodium (Fosamax) 70 mg Q7D PO Last administered on 01/13/17 14:47; Admin Dose 70 MG; Start 01/06/17 at 14:00 Aspirin (Halfprin) 81 mg DAILY PO Last administered on 01/17/17 08:01; Admin Dose 81 MG; Start 01/07/17 at 09:00 Duloxetine HCl (Cymbalta) 20 mg DAILY PO Last administered on 01/17/17 08:01; Admin Dose 20 MG; Start 01/07/17 at 09:00 Gabapentin (Neurontin) 300 mg TID PO Last administered on 01/17/17 13:01; Admin Dose 300 MG; Start 01/06/17 at 13:00 Metoprolol Tartrate (Lopressor) 12.5 mg BID PO ; Start 01/06/17 at 21:00; Status Future Hold Ticagrelor (Brilinta) 90 mg BID PO Last administered on 01/16/17 08:21; Admin Dose 90 MG; Start 01/06/17 at 21:00; Status Future Hold Diagnostic Test (Pha) (Accu-Chek) 1 ea 02 XX ; Start 01/07/17 at 02:00 Furosemide (Lasix) 20 mg DAILY PO ; Start 01/07/17 at 09:00; Status Future Hold Bisacodyl (Dulcolax Supp) 10 mg DAILY PRN [place] CONSTIPATION; Start 01/06/17 at 11 :30 Guaifenesin (Robitussin Liquid Cup) 100 mg Q6H PRN PO COUGH Last administered on 01/08/17 07:54; Admin Dose 100 MG; Start 01/06/17 at 11:30 Levothyroxine Sodium (Synthroid) 112 mcg DAILY@06 PO Last administered on 06:06; Admin Dose 112 MCG; Start 01/07/17 at 06:00 Lisinopril (Zestril) 2.5 mg DAILY PO Last administered on 01/17/17 08:02; Admin Dose 2.5 MG; Start 01/07/17 at 09:00 Polyethylene Glycol (Miralax) 17 gm DAILY PO Last administered on 01/07/17 08: 24; Admin Dose 17 GM; Start 01/07/17 at 09:00 Senna (Senokot) 2 tab HS PO Last administered on 01/16/17 21:06; Admin Dose 2 TAB; Start 01/06/17 at 21:00 Miscellaneous Information 1 ea NOTE XX ; Start 01/06/17 at 12:00 Glucose (Glutose) 15 gm Q15M PRN PO DECREASED GLUCOSE Last administered on 17:11; Admin Dose 15 GM; Start 01/06/17 at 12:00 Glucose (Glutose) 22.5 gm Q15M PRN PO DECREASED GLUCOSE Last administered on 03:34; Admin Dose 22.5 GM; Start 01/06/17 at 12:00 Dextrose (D50w Syringe) 25 ml Q15M PRN IV DECREASED GLUCOSE; Start 01/06/17 at 12:00 Dextrose (D50w Syringe) 50 ml Q15M PRN IV DECREASED GLUCOSE Last administered on 01/15/17 11:52; Admin Dose 50 ML; Start 01/06/17 at 12:00 Glucagon (Glucagen) 1 mg Q15M PRN IM DECREASED GLUCOSE; Start 01/06/17 at 12:00 Glucose (Glutose) 15 gm Q15M PRN BUCCAL DECREASED GLUCOSE Last administered on 01/10/17 07:07; Admin Dose 15 GM; Start 01/06/17 at 12:00 Atorvastatin Calcium (Lipitor) 40 mg HS PO Last administered on 01/16/17 21:06 ; Admin Dose 40 MG; Start 01/14/17 at 21:00 Lidocaine (Xylocaine 4% (Mpf)) 5 ml ONCE PRN HHN BREATHING TREATMENT Last administered on 01/15/17 09:38; Admin Dose 5 ML; Start 01/15/17 at 09:30 Insulin Glargine (Lantus) 14 unit DAILY@20 SC ; Start 01/17/17 at 20:00 TANIYA OLMSTEAD Jan 17, 2017 16:37
[2017-01-17 20:00] VITALS: BP 96/51; RESP 20
[2017-01-17] MEDS: INSULIN GLARGINE [LANtus] 3 ML PEN SC SCH (20:02)
[2017-01-17] MEDS: SENNA TAB PO SCH (20:53)
[2017-01-17] MEDS: ATORVASTATIN 40 MG TAB PO SCH (20:53)
[2017-01-18 02:00] VITALS: BP 95/56; RESP 19
[2017-01-18] MEDS: ACCU-CHEK XX SCH ×4 (02:00→20:14)
[2017-01-18] MEDS: LEVOTHYROXINE 112 MCG TAB PO SCH (05:43)
[2017-01-18] MEDS: INSULIN ASPART [NOVOLOG] 3 ML PEN SC SCH ×7 (08:00→20:15)
[2017-01-18] MEDS: DULOXETINE 20 MG CAP DR PO SCH (08:06)
[2017-01-18] MEDS: GABAPENTIN 300 MG CAP PO SCH ×3 (08:06→20:14)
[2017-01-18] MEDS: ASPIRIN (EC) 81 MG TAB PO SCH (08:06)
[2017-01-18] MEDS: HEPARIN 5,000 UNIT/0.5 ML VIAL SC SCH ×2 (08:07→20:16)
[2017-01-18 08:15] VITALS: BP 114/56; RESP 16
[2017-01-18] MEDS: LISINOPRIL 5 MG TAB PO SCH (08:18)
[2017-01-18] MEDS: POLYETHYLENE GLYCOL 17 GM PACKET PO SCH (08:21)
--- NOTE | 2017-01-18 08:31 | CONS ---
Date/Time of Note Date/Time of Note DATE: 01/18/17 TIME: 08:28 Assessment/Plan Assessment/Plan Chief Complaint/Hosp Course The patient is s 56 year old female admitted for management of CAD. She is awaiting CABG surgery. During her workup, she was found to have a left subglottic mass. She denies dyspnea or change in voice. Bronchoscopy was performed yesterday which revealed a smooth, possibly vascular, mass of the left subglottic region. Biopsy was not performed due to concerns of bleeding. Problems: Additional Assessment/Plan sublgottic mass. discussed with Dr. Olmstead and Dr. Brady. Will plan to resect subglottic mass prior to proceeding with CABG. Discussed with patient that she may need a possible tracheostomy if intubation is not possible or resection poses to much of a bleeding risk postoperatively. She would like to proceed. Will arrange with [facility] OR scheduling this case. Consultation Date/Type/Reason Admit Date/Time Jan 05, 2017 at 17:49 Initial Consult Date 01/16/17 Type of Consultation: Endocrinology Referring Provider: TANIYA OLMSTEAD 24 HR Interval Summary Free Text/Dictation Symptoms stable Exam/Review of Systems Vital Signs Vitals Vital Signs Date Time Temp Pulse Resp B/P Pulse Ox O2 Delivery O2 Flow Rate FiO2 01/18/17 08:15 98.4 86 16 114/56 96 01/15/17 09:55 Room Air Intake and Output 01/17/17 01/17/17 01/18/17 15:00 23:00 07:00 Intake Total 1360 ml 220 ml Balance 1360 ml 220 ml Results Result Diagram: 01/17/17 0531 01/17/17 0531 Results 24 hrs Laboratory Tests Test 01/17/17 10:06 01/17/17 12:17 01/17/17 14:32 01/17/17 16:56 Bedside Glucose 189 108 71 82 Test 01/17/17 19:58 01/17/17 21:01 01/18/17 02:05 01/18/17 08:02 Bedside Glucose 122 93 111 116 Medications Medications Current Medications Ondansetron HCl (Zofran Inj) 4 mg Q6H PRN IV NAUSEA AND/OR VOMITING; Start at 11:30 Acetaminophen (Tylenol Tab) 650 mg Q6H PRN PO PAIN LEVEL 1-3 OR FEVER; Start at 11:30 Acetaminophen (Tylenol Supp) 650 mg Q6H PRN [place] PAIN LEVEL 1-3 OR FEVER; Start 01/06/17 at 11:30 Heparin Sodium (Porcine) (Heparin (5000 Units/0.5 ml)) 5,000 unit Q12 SC Last administered on 01/18/17 08:07; Admin Dose 5,000 UNIT; Start 01/06/17 at 21:00 Alendronate Sodium (Fosamax) 70 mg Q7D PO Last administered on 01/13/17 14:47; Admin Dose 70 MG; Start 01/06/17 at 14:00 Aspirin (Halfprin) 81 mg DAILY PO Last administered on 01/18/17 08:06; Admin Dose 81 MG; Start 01/07/17 at 09:00 Duloxetine HCl (Cymbalta) 20 mg DAILY PO Last administered on 01/18/17 08:06; Admin Dose 20 MG; Start 01/07/17 at 09:00 Gabapentin (Neurontin) 300 mg TID PO Last administered on 01/18/17 08:06; Admin Dose 300 MG; Start 01/06/17 at 13:00 Metoprolol Tartrate (Lopressor) 12.5 mg BID PO ; Start 01/06/17 at 21:00; Status Future Hold Ticagrelor (Brilinta) 90 mg BID PO Last administered on 01/16/17 08:21; Admin Dose 90 MG; Start 01/06/17 at 21:00; Status Future Hold Diagnostic Test (Pha) (Accu-Chek) 1 ea 02 XX ; Start 01/07/17 at 02:00 Furosemide (Lasix) 20 mg DAILY PO ; Start 01/07/17 at 09:00; Status Future Hold Bisacodyl (Dulcolax Supp) 10 mg DAILY PRN [place] CONSTIPATION; Start 01/06/17 at 11 :30 Guaifenesin (Robitussin Liquid Cup) 100 mg Q6H PRN PO COUGH Last administered on 01/08/17 07:54; Admin Dose 100 MG; Start 01/06/17 at 11:30 Levothyroxine Sodium (Synthroid) 112 mcg DAILY@06 PO Last administered on 05:43; Admin Dose 112 MCG; Start 01/07/17 at 06:00 Lisinopril (Zestril) 2.5 mg DAILY PO Last administered on 01/18/17 08:18; Admin Dose 2.5 MG; Start 01/07/17 at 09:00 Polyethylene Glycol (Miralax) 17 gm DAILY PO Last administered on 01/07/17 08: 24; Admin Dose 17 GM; Start 01/07/17 at 09:00 Senna (Senokot) 2 tab HS PO Last administered on 01/17/17 20:53; Admin Dose 2 TAB; Start 01/06/17 at 21:00 Miscellaneous Information 1 ea NOTE XX ; Start 01/06/17 at 12:00 Glucose (Glutose) 15 gm Q15M PRN PO DECREASED GLUCOSE Last administered on 17:11; Admin Dose 15 GM; Start 01/06/17 at 12:00 Glucose (Glutose) 22.5 gm Q15M PRN PO DECREASED GLUCOSE Last administered on 03:34; Admin Dose 22.5 GM; Start 01/06/17 at 12:00 Dextrose (D50w Syringe) 25 ml Q15M PRN IV DECREASED GLUCOSE; Start 01/06/17 at 12:00 Dextrose (D50w Syringe) 50 ml Q15M PRN IV DECREASED GLUCOSE Last administered on 01/15/17 11:52; Admin Dose 50 ML; Start 01/06/17 at 12:00 Glucagon (Glucagen) 1 mg Q15M PRN IM DECREASED GLUCOSE; Start 01/06/17 at 12:00 Glucose (Glutose) 15 gm Q15M PRN BUCCAL DECREASED GLUCOSE Last administered on 01/10/17 07:07; Admin Dose 15 GM; Start 01/06/17 at 12:00 Atorvastatin Calcium (Lipitor) 40 mg HS PO Last administered on 01/17/17 20:53 ; Admin Dose 40 MG; Start 01/14/17 at 21:00 Lidocaine (Xylocaine 4% (Mpf)) 5 ml ONCE PRN HHN BREATHING TREATMENT Last administered on 01/15/17 09:38; Admin Dose 5 ML; Start 01/15/17 at 09:30 Insulin Glargine (Lantus) 14 unit DAILY@20 SC Last administered on 01/17/17 20: 02; Admin Dose 14 UNIT; Start 01/17/17 at 20:00 KEL LAURA MD Jan 18, 2017 08:31
--- NOTE | 2017-01-18 12:43 | CONS ---
Date/Time of Note Date/Time of Note DATE: 01/18/17 TIME: 12:39 Assessment/Plan Assessment/Plan Problems: (1) Mass of epiglottis Status: Acute Comment: As per the notes from ENT surgery; Dr. Zheng. From an endocrine standpoint she is ready to proceed with surgery. (2) CAD (coronary artery disease), wain[place] coronary artery Status: Chronic Comment: She will need open heart bypass surgery after we know more about what is going on with a mass in the subglottic space Qualifiers: [place] vs. transplanted heart: wainwright heart Associated angina: with unstable angina Qualified Code: I25.110 - Coronary artery disease involving wainwright coronary artery of wainwright heart with unstable angina pectoris (3) Type 1 diabetes mellitus with diabetic polyneuropathy Status: Chronic Comment: Adequate control on the current medication regimen without hypoglycemia (4) COPD (chronic obstructive pulmonary disease) with chronic bronchitis Status: Chronic Comment: Relatively stable. Please note she may end up with a tracheostomy and the resection of the subglottic mass (5) Acquired hypothyroidism Status: Chronic Comment: Adequate control Consultation Date/Type/Reason Admit Date/Time Jan 06, 2017 at 10:49 Initial Consult Date 01/16/17 Type of Consultation: Endocrinology Reason for Consultation Diabetes Referring Provider: TANIYA OLMSTEAD 24 HR Interval Summary Free Text/Dictation No new issues. The patient is not having any changes in her breathing pattern or stridor or Exam/Review of Systems Vital Signs Vitals Vital Signs Date Time Temp Pulse Resp B/P Pulse Ox O2 Delivery O2 Flow Rate FiO2 01/18/17 08:15 98.4 86 16 114/56 96 01/15/17 09:55 Room Air Intake and Output 01/17/17 01/17/17 01/18/17 15:00 23:00 07:00 Intake Total 1360 ml 220 ml Balance 1360 ml 220 ml Exam Constitutional: alert, oriented Respiratory: clear to auscultation, normal air movement Results Result Diagram: 01/17/17 0531 01/17/17 0531 Results 24 hrs Laboratory Tests Test 01/17/17 14:32 01/17/17 16:56 01/17/17 19:58 01/17/17 21:01 Bedside Glucose 71 82 122 93 Test 01/18/17 02:05 01/18/17 08:02 01/18/17 10:06 01/18/17 12:02 Bedside Glucose 111 116 276 H 192 Medications Medications Current Medications Ondansetron HCl (Zofran Inj) 4 mg Q6H PRN IV NAUSEA AND/OR VOMITING; Start at 11:30 Acetaminophen (Tylenol Tab) 650 mg Q6H PRN PO PAIN LEVEL 1-3 OR FEVER; Start at 11:30 Acetaminophen (Tylenol Supp) 650 mg Q6H PRN [place] PAIN LEVEL 1-3 OR FEVER; Start 01/06/17 at 11:30 Heparin Sodium (Porcine) (Heparin (5000 Units/0.5 ml)) 5,000 unit Q12 SC Last administered on 01/18/17 08:07; Admin Dose 5,000 UNIT; Start 01/06/17 at 21:00 Alendronate Sodium (Fosamax) 70 mg Q7D PO Last administered on 01/13/17 14:47; Admin Dose 70 MG; Start 01/06/17 at 14:00 Aspirin (Halfprin) 81 mg DAILY PO Last administered on 01/18/17 08:06; Admin Dose 81 MG; Start 01/07/17 at 09:00 Duloxetine HCl (Cymbalta) 20 mg DAILY PO Last administered on 01/18/17 08:06; Admin Dose 20 MG; Start 01/07/17 at 09:00 Gabapentin (Neurontin) 300 mg TID PO Last administered on 01/18/17 12:12; Admin Dose 300 MG; Start 01/06/17 at 13:00 Metoprolol Tartrate (Lopressor) 12.5 mg BID PO ; Start 01/06/17 at 21:00; Status Future Hold Ticagrelor (Brilinta) 90 mg BID PO Last administered on 01/16/17 08:21; Admin Dose 90 MG; Start 01/06/17 at 21:00; Status Future Hold Diagnostic Test (Pha) (Accu-Chek) 1 ea 02 XX ; Start 01/07/17 at 02:00 Furosemide (Lasix) 20 mg DAILY PO ; Start 01/07/17 at 09:00; Status Future Hold Bisacodyl (Dulcolax Supp) 10 mg DAILY PRN [place] CONSTIPATION; Start 01/06/17 at 11 :30 Guaifenesin (Robitussin Liquid Cup) 100 mg Q6H PRN PO COUGH Last administered on 01/08/17 07:54; Admin Dose 100 MG; Start 01/06/17 at 11:30 Levothyroxine Sodium (Synthroid) 112 mcg DAILY@06 PO Last administered on 05:43; Admin Dose 112 MCG; Start 01/07/17 at 06:00 Lisinopril (Zestril) 2.5 mg DAILY PO Last administered on 01/18/17 08:18; Admin Dose 2.5 MG; Start 01/07/17 at 09:00 Polyethylene Glycol (Miralax) 17 gm DAILY PO Last administered on 01/07/17 08: 24; Admin Dose 17 GM; Start 01/07/17 at 09:00 Senna (Senokot) 2 tab HS PO Last administered on 01/17/17 20:53; Admin Dose 2 TAB; Start 01/06/17 at 21:00 Miscellaneous Information 1 ea NOTE XX ; Start 01/06/17 at 12:00 Glucose (Glutose) 15 gm Q15M PRN PO DECREASED GLUCOSE Last administered on 17:11; Admin Dose 15 GM; Start 01/06/17 at 12:00 Glucose (Glutose) 22.5 gm Q15M PRN PO DECREASED GLUCOSE Last administered on 03:34; Admin Dose 22.5 GM; Start 01/06/17 at 12:00 Dextrose (D50w Syringe) 25 ml Q15M PRN IV DECREASED GLUCOSE; Start 01/06/17 at 12:00 Dextrose (D50w Syringe) 50 ml Q15M PRN IV DECREASED GLUCOSE Last administered on 01/15/17 11:52; Admin Dose 50 ML; Start 01/06/17 at 12:00 Glucagon (Glucagen) 1 mg Q15M PRN IM DECREASED GLUCOSE; Start 01/06/17 at 12:00 Glucose (Glutose) 15 gm Q15M PRN BUCCAL DECREASED GLUCOSE Last administered on 01/10/17 07:07; Admin Dose 15 GM; Start 01/06/17 at 12:00 Atorvastatin Calcium (Lipitor) 40 mg HS PO Last administered on 01/17/17 20:53 ; Admin Dose 40 MG; Start 01/14/17 at 21:00 Lidocaine (Xylocaine 4% (Mpf)) 5 ml ONCE PRN HHN BREATHING TREATMENT Last administered on 01/15/17 09:38; Admin Dose 5 ML; Start 01/15/17 at 09:30 Insulin Glargine (Lantus) 14 unit DAILY@20 SC Last administered on 01/17/17 20: 02; Admin Dose 14 UNIT; Start 01/17/17 at 20:00 CODY HENAO MD Jan 18, 2017 12:42
--- NOTE | 2017-01-18 13:32 | PN ---
Date/Time of Note Date/Time of Note DATE: 01/18/17 TIME: 13:28 Assessment/Plan VTE Prophylaxis VTE Prophylaxis Intervention: heparin Lines/Catheters IV [facility] Type [facility]from [facility] Peripheral IV Urinary Cath still in place: No Assessment/Plan Chief Complaint/Hosp Course Assessment/Plan: 56 yo F with poorly controlled DM2 admitted for NSTEMI in setting DKA. Found to have multivessel CAD. Awaiting CABG. Also with incidental finding of L sided subglottic lesion. 1. multivessel CAD, recent NSTEMI, ICM with EF <25%. CABG pending, date TBD, although according to CTS patient is at very high risk of having surgery secondary to significant comorbidities including carotid occlusion, specifically occlusion of the right internal carotid artery just beyond its origin due to large plaque burden as seen on the prior MRI. -cont current cardiac meds, follow-up CTS recommendations, planning on possible bypass surgery after subglottic mass lesion is removed -bb/lasix on hold for prior episodes of orthostasis earlier this admission 2. L subglottic lesion: Initially ENT was recommending tracheostomy before any attempt at biopsy of the subglottic mass or lesion could be performed, given the high risk of possible bleeding. They are planning for mass removal before bypass surgery will be performed. (ENT initially recommended bronchoscopy, which was attempted 5 days ago by the pulmonary team but they were unable to perform the biopsy given the high vascularity of the lesion. Hence the evaluation by ENT given the high vascularity of the mass). - Will follow up with them regarding the time and date for this subglottic surgical mass removal, hopefully be performed in the next 24-48 hours. After that possible bypass surgery by cardiothoracic surgery team 48 hours later is recommended. 3. Severe obstructive and restrictive pulmonary disease. Status post PFTs -Continue bronchodilators. 4. Type I diabetes mellitus (and not type 2, per endo) - sugars much improved in the last 24 hours now. The last documented A1c is from December 10 2016, it was 9.4. Appreciate endocrinology consult. They are suggesting patient may be suffering from a [place] effect overnight and actually experiencing multiple hypoglycemic episodes throughout the night resulting in an exaggerated glucagon and epinephrine response in the AM. -Follow-up endocrinology recommendations regarding further adjustments to aspart and Lantus - monitor fingerstick 5. Hypothyroidism. -Continue Synthroid. 6. Chronic anemia. H&H stable. Will monitor. 7. Significant deconditioning -Continue with physical therapy as tolerated. DVT prophylaxis: Heparin Problems: Subjective 24 Hr Interval Summary Free Text/Dictation Denies chest pain. No acute events overnight. Seen by endocrinology and ENT teams. Exam/Review of Systems Vital Signs Vitals Vital Signs Date Time Temp Pulse Resp B/P Pulse Ox O2 Delivery O2 Flow Rate FiO2 01/18/17 08:15 98.4 86 16 114/56 96 01/15/17 09:55 Room Air Intake and Output 01/17/17 01/17/17 01/18/17 15:00 23:00 07:00 Intake Total 1360 ml 220 ml Balance 1360 ml 220 ml Exam Lying in bed, alert, no acute distress no mrg lungs clear abd soft no rashes No focal deficits No lower extremity edema bilateral Results Result Diagram: 01/17/17 0531 01/17/17 0531 Results 24 hrs Laboratory Tests Test 01/17/17 14:32 01/17/17 16:56 01/17/17 19:58 01/17/17 21:01 Bedside Glucose 71 82 122 93 Test 01/18/17 02:05 01/18/17 08:02 01/18/17 10:06 01/18/17 12:02 Bedside Glucose 111 116 276 H 192 Medications Medications Current Medications Ondansetron HCl (Zofran Inj) 4 mg Q6H PRN IV NAUSEA AND/OR VOMITING; Start at 11:30 Acetaminophen (Tylenol Tab) 650 mg Q6H PRN PO PAIN LEVEL 1-3 OR FEVER; Start at 11:30 Acetaminophen (Tylenol Supp) 650 mg Q6H PRN [place] PAIN LEVEL 1-3 OR FEVER; Start 01/06/17 at 11:30 Heparin Sodium (Porcine) (Heparin (5000 Units/0.5 ml)) 5,000 unit Q12 SC Last administered on 01/18/17 08:07; Admin Dose 5,000 UNIT; Start 01/06/17 at 21:00 Alendronate Sodium (Fosamax) 70 mg Q7D PO Last administered on 01/13/17 14:47; Admin Dose 70 MG; Start 01/06/17 at 14:00 Aspirin (Halfprin) 81 mg DAILY PO Last administered on 01/18/17 08:06; Admin Dose 81 MG; Start 01/07/17 at 09:00 Duloxetine HCl (Cymbalta) 20 mg DAILY PO Last administered on 01/18/17 08:06; Admin Dose 20 MG; Start 01/07/17 at 09:00 Gabapentin (Neurontin) 300 mg TID PO Last administered on 01/18/17 12:12; Admin Dose 300 MG; Start 01/06/17 at 13:00 Metoprolol Tartrate (Lopressor) 12.5 mg BID PO ; Start 01/06/17 at 21:00; Status Future Hold Ticagrelor (Brilinta) 90 mg BID PO Last administered on 01/16/17 08:21; Admin Dose 90 MG; Start 01/06/17 at 21:00; Status Future Hold Diagnostic Test (Pha) (Accu-Chek) 1 ea 02 XX ; Start 01/07/17 at 02:00 Furosemide (Lasix) 20 mg DAILY PO ; Start 01/07/17 at 09:00; Status Future Hold Bisacodyl (Dulcolax Supp) 10 mg DAILY PRN [place] CONSTIPATION; Start 01/06/17 at 11 :30 Guaifenesin (Robitussin Liquid Cup) 100 mg Q6H PRN PO COUGH Last administered on 01/08/17 07:54; Admin Dose 100 MG; Start 01/06/17 at 11:30 Levothyroxine Sodium (Synthroid) 112 mcg DAILY@06 PO Last administered on 05:43; Admin Dose 112 MCG; Start 01/07/17 at 06:00 Lisinopril (Zestril) 2.5 mg DAILY PO Last administered on 01/18/17 08:18; Admin Dose 2.5 MG; Start 01/07/17 at 09:00 Polyethylene Glycol (Miralax) 17 gm DAILY PO Last administered on 01/07/17 08: 24; Admin Dose 17 GM; Start 01/07/17 at 09:00 Senna (Senokot) 2 tab HS PO Last administered on 01/17/17 20:53; Admin Dose 2 TAB; Start 01/06/17 at 21:00 Miscellaneous Information 1 ea NOTE XX ; Start 01/06/17 at 12:00 Glucose (Glutose) 15 gm Q15M PRN PO DECREASED GLUCOSE Last administered on 17:11; Admin Dose 15 GM; Start 01/06/17 at 12:00 Glucose (Glutose) 22.5 gm Q15M PRN PO DECREASED GLUCOSE Last administered on 03:34; Admin Dose 22.5 GM; Start 01/06/17 at 12:00 Dextrose (D50w Syringe) 25 ml Q15M PRN IV DECREASED GLUCOSE; Start 01/06/17 at 12:00 Dextrose (D50w Syringe) 50 ml Q15M PRN IV DECREASED GLUCOSE Last administered on 01/15/17 11:52; Admin Dose 50 ML; Start 01/06/17 at 12:00 Glucagon (Glucagen) 1 mg Q15M PRN IM DECREASED GLUCOSE; Start 01/06/17 at 12:00 Glucose (Glutose) 15 gm Q15M PRN BUCCAL DECREASED GLUCOSE Last administered on 01/10/17 07:07; Admin Dose 15 GM; Start 01/06/17 at 12:00 Atorvastatin Calcium (Lipitor) 40 mg HS PO Last administered on 01/17/17 20:53 ; Admin Dose 40 MG; Start 01/14/17 at 21:00 Lidocaine (Xylocaine 4% (Mpf)) 5 ml ONCE PRN HHN BREATHING TREATMENT Last administered on 01/15/17 09:38; Admin Dose 5 ML; Start 01/15/17 at 09:30 Insulin Glargine (Lantus) 14 unit DAILY@20 SC Last administered on 01/17/17 20: 02; Admin Dose 14 UNIT; Start 01/17/17 at 20:00 TANIYA OLMSTEAD Jan 18, 2017 13:32
--- NOTE | 2017-01-18 14:15 | CONS ---
Date/Time of Note Date/Time of Note DATE: 01/18/17 TIME: 14:14 Assessment/Plan Assessment/Plan Additional Assessment/Plan CAD with Triple vessel disease Carotid artery disease Neck Mass (Subglottic mass) Hypertension Diabetes Dyslipidemia Hemodynamically stable Awaiting Bypass surgery Off Brilinta Continue Lisinopril Continue Levothyroxine Continue Insulin Continue Lipitor Continue GI and DVT Prophylaxis Consultation Date/Type/Reason Admit Date/Time Jan 06, 2017 at 10:49 Initial Consult Date 01/16/17 Type of Consultation: Endocrinology Referring Provider: TANIYA OLMSTEAD Exam/Review of Systems Vital Signs Vitals Vital Signs Date Time Temp Pulse Resp B/P Pulse Ox O2 Delivery O2 Flow Rate FiO2 01/18/17 08: 98.4 86 16 114/56 96 01/15/17 09:55 Room Air Intake and Output 01/17/17 01/17/17 01/18/17 15:00 23:00 07:00 Intake Total 1360 ml 220 ml Balance 1360 ml 220 ml Exam Constitutional: alert, oriented Head: normocephalic Eyes: EOMI, nl conjunctiva Neck: non-tender, supple Respiratory: clear to auscultation Cardiovascular: regular rate and rhythm Gastrointestinal: nl liver, spleen, non-tender, soft Extremities: normal pulses Results Result Diagram: 01/17/17 0531 01/17/17 0531 Results 24 hrs Laboratory Tests Test 01/17/17 14:32 01/17/17 16:56 01/17/17 19:58 01/17/17 21:01 Bedside Glucose 71 82 122 93 Test 01/18/17 02:05 01/18/17 08:02 01/18/17 10:06 01/18/17 12:02 Bedside Glucose 111 116 276 H 192 Test 01/18/17 13:31 01/18/17 13:58 Bedside Glucose 84 72 Medications Medications Current Medications Ondansetron HCl (Zofran Inj) 4 mg Q6H PRN IV NAUSEA AND/OR VOMITING; Start at 11:30 Acetaminophen (Tylenol Tab) 650 mg Q6H PRN PO PAIN LEVEL 1-3 OR FEVER; Start at 11:30 Acetaminophen (Tylenol Supp) 650 mg Q6H PRN [place] PAIN LEVEL 1-3 OR FEVER; Start 01/06/17 at 11:30 Heparin Sodium (Porcine) (Heparin (5000 Units/0.5 ml)) 5,000 unit Q12 SC Last administered on 01/18/17 08:07; Admin Dose 5,000 UNIT; Start 01/06/17 at 21:00 Alendronate Sodium (Fosamax) 70 mg Q7D PO Last administered on 01/13/17 14:47; Admin Dose 70 MG; Start 01/06/17 at 14:00 Aspirin (Halfprin) 81 mg DAILY PO Last administered on 01/18/17 08:06; Admin Dose 81 MG; Start 01/07/17 at 09:00 Duloxetine HCl (Cymbalta) 20 mg DAILY PO Last administered on 01/18/17 08:06; Admin Dose 20 MG; Start 01/07/17 at 09:00 Gabapentin (Neurontin) 300 mg TID PO Last administered on 01/18/17 12:12; Admin Dose 300 MG; Start 01/06/17 at 13:00 Metoprolol Tartrate (Lopressor) 12.5 mg BID PO ; Start 01/06/17 at 21:00; Status Future Hold Ticagrelor (Brilinta) 90 mg BID PO Last administered on 01/16/17 08:21; Admin Dose 90 MG; Start 01/06/17 at 21:00; Status Future Hold Diagnostic Test (Pha) (Accu-Chek) 1 ea 02 XX ; Start 01/07/17 at 02:00 Furosemide (Lasix) 20 mg DAILY PO ; Start 01/07/17 at 09:00; Status Future Hold Bisacodyl (Dulcolax Supp) 10 mg DAILY PRN [place] CONSTIPATION; Start 01/06/17 at 11 :30 Guaifenesin (Robitussin Liquid Cup) 100 mg Q6H PRN PO COUGH Last administered on 01/08/17 07:54; Admin Dose 100 MG; Start 01/06/17 at 11:30 Levothyroxine Sodium (Synthroid) 112 mcg DAILY@06 PO Last administered on 05:43; Admin Dose 112 MCG; Start 01/07/17 at 06:00 Lisinopril (Zestril) 2.5 mg DAILY PO Last administered on 01/18/17 08:18; Admin Dose 2.5 MG; Start 01/07/17 at 09:00 Polyethylene Glycol (Miralax) 17 gm DAILY PO Last administered on 01/07/17 08: 24; Admin Dose 17 GM; Start 01/07/17 at 09:00 Senna (Senokot) 2 tab HS PO Last administered on 01/17/17 20:53; Admin Dose 2 TAB; Start 01/06/17 at 21:00 Miscellaneous Information 1 ea NOTE XX ; Start 01/06/17 at 12:00 Glucose (Glutose) 15 gm Q15M PRN PO DECREASED GLUCOSE Last administered on 17:11; Admin Dose 15 GM; Start 01/06/17 at 12:00 Glucose (Glutose) 22.5 gm Q15M PRN PO DECREASED GLUCOSE Last administered on 03:34; Admin Dose 22.5 GM; Start 01/06/17 at 12:00 Dextrose (D50w Syringe) 25 ml Q15M PRN IV DECREASED GLUCOSE; Start 01/06/17 at 12:00 Dextrose (D50w Syringe) 50 ml Q15M PRN IV DECREASED GLUCOSE Last administered on 01/15/17 11:52; Admin Dose 50 ML; Start 01/06/17 at 12:00 Glucagon (Glucagen) 1 mg Q15M PRN IM DECREASED GLUCOSE; Start 01/06/17 at 12:00 Glucose (Glutose) 15 gm Q15M PRN BUCCAL DECREASED GLUCOSE Last administered on 01/10/17 07:07; Admin Dose 15 GM; Start 01/06/17 at 12:00 Atorvastatin Calcium (Lipitor) 40 mg HS PO Last administered on 01/17/17 20:53 ; Admin Dose 40 MG; Start 01/14/17 at 21:00 Lidocaine (Xylocaine 4% (Mpf)) 5 ml ONCE PRN HHN BREATHING TREATMENT Last administered on 01/15/17 09:38; Admin Dose 5 ML; Start 01/15/17 at 09:30 Insulin Glargine (Lantus) 14 unit DAILY@20 SC Last administered on 01/17/17 20: 02; Admin Dose 14 UNIT; Start 01/17/17 at 20:00 HALI ALVARADO M.D. Jan 18, 2017 14:15
[2017-01-18 14:36] VITALS: BP 119/57; RESP 16
[2017-01-18] MEDS: GLUCOSE GEL 15 GRAM TUBE PO PRN (14:53)
[2017-01-18] MEDS: ATORVASTATIN 40 MG TAB PO SCH (20:14)
[2017-01-18] MEDS: SENNA TAB PO SCH (20:14)
[2017-01-18] MEDS: INSULIN GLARGINE [LANtus] 3 ML PEN SC SCH (20:16)
[2017-01-18 21:47] VITALS: BP 102/52; RESP 18
[2017-01-19] MEDS: ACCU-CHEK XX SCH ×4 (02:07→20:05)
[2017-01-19 02:33] VITALS: BP 105/54; RESP 18
[2017-01-19] MEDS: LEVOTHYROXINE 112 MCG TAB PO SCH (05:09)
[2017-01-19 05:32] LABS: BASOPHIL # 0.1 10^3/ul (0.0-0.1); BASOPHILS % 1.4 % (0.0-2.0); EOSINOPHILS # 0.8 10^3/ul (0.0-0.5); EOSINOPHILS % 14.2 % (0.0-7.0); HEMATOCRIT 35.5 % (37.0-47.0); HEMOGLOBIN 11.7 g/dl (12.0-16.0); LYMPHOCYTES # 1.7 10^3/ul (0.8-2.9); LYMPHOCYTES % 29.6 % (15.0-51.0); MEAN CORPUSCULAR HEMOGLOBIN 32.1 pg (29.0-33.0); MEAN CORPUSCULAR VOLUME 97.3 fl (82.0-101.0); MEAN PLATELET VOLUME 9.1 fl (7.4-10.4); MONOCYTE # 0.5 10^3/ul (0.3-0.9); MONOCYTES % 8.8 % (0.0-11.0); NEUTROPHIL # 2.6 10^3/ul (1.6-7.5); NEUTROPHILS % 45.7 % (39.0-77.0); PLATELET COUNT 262 10^3/UL (140-415); RED BLOOD COUNT 3.65 10^6/ul (4.20-5.40); RED CELL DISTRIBUTION WIDTH 15.9 % (11.5-14.5); WHITE BLOOD COUNT 5.8 10^3/ul (4.8-10.8)
[2017-01-19 06:04] LABS: CALCIUM 9.5 mg/dl (8.4-10.2); CREATININE 0.56 mg/dl (0.44-1.00); INR 0.86; MAGNESIUM 1.9 mg/dl (1.7-2.5); PHOSPHORUS 4.7 mg/dl (2.5-4.9); POTASSIUM 4.5 mmol/L (3.5-5.1); PROTIME 11.7 Sec (12.2-14.2); PT RATIO 0.9
[2017-01-19] MEDS: INSULIN ASPART [NOVOLOG] 3 ML PEN SC SCH ×7 (08:03→21:04)
[2017-01-19 08:18] VITALS: BP 113/54; RESP 18
[2017-01-19] MEDS: ASPIRIN (EC) 81 MG TAB PO SCH (08:53)
[2017-01-19] MEDS: GABAPENTIN 300 MG CAP PO SCH ×3 (08:53→21:07)
[2017-01-19] MEDS: DULOXETINE 20 MG CAP DR PO SCH (08:53)
[2017-01-19] MEDS: HEPARIN 5,000 UNIT/0.5 ML VIAL SC SCH ×2 (08:55→21:09)
[2017-01-19] MEDS: POLYETHYLENE GLYCOL 17 GM PACKET PO SCH (08:56)
[2017-01-19] MEDS: LISINOPRIL 5 MG TAB PO SCH (08:57)
--- NOTE | 2017-01-19 09:17 | CONS ---
Date/Time of Note Date/Time of Note DATE: 01/19/17 TIME: 09:15 Assessment/Plan Assessment/Plan Additional Assessment/Plan 1.NSTEMI-peak trop>60 Now dowtrended significantly s/p LHC with patent RCA stents and high grade disease of LAD/LCX with small caliber vessels and recc for CABG. Still ongoing surgical eval and question date of possible surgery - SURGERY on hold pending mass rx 2.cardiomyopathy-LVEF 40-45 BY OSH echo. 25% by echo read here - will monitor - considerr ICD at 3-6 months depending on CABG response 3.Hypotension-orthostatics today with transfer to med-surg-? overdiuresis- currently improved- BETTER NOW 4.resp failure s/p extubation requiring PRN BIPAP which has now improved and not requiring further at this time 5.anemia 6. AMS/encephalopathy - much improved 7. PNA-ongoing by chest CT- better 8. COPD 9. Hypothyroid 10.DM-labile BS 11.Neck mass? with dysphagia - evaluation in progress 12. carotid stenosis Consultation Date/Type/Reason Admit Date/Time Jan 06, 2017 at 10:49 Type of Consultation: Endocrinology Referring Provider: TANIYA OLMSTEAD 24 HR Interval Summary Free Text/Dictation NO acute change - pt in good fluid staus - no CP noted now ROS: No fever, no chills, no nausea, no vomiting, no diarrhea/constipation No recent weight changes No chest pain, no PND, no orthopnea No dizziness, blurred vision No thirst, no heat or cold intolerance Exam/Review of Systems Vital Signs Vitals Vital Signs Date Time Temp Pulse Resp B/P Pulse Ox O2 Delivery O2 Flow Rate FiO2 01/19/17 08:18 98.3 88 18 113/54 95 01/15/17 09:55 Room Air Intake and Output 01/18/17 01/18/17 01/19/17 15:00 23:00 07:00 Intake Total 1320 ml 800 ml Balance 1320 ml 800 ml Exam General: WN/WD/NAD, AOx 3 HEENT: Unicetric/atraumatic/EOMI (follow commands) NECK: JVD elevated, no thyromegaly Lymph: no lymphadenopathy HEART: regular with no S3, II/ systolic murmur at apex, PMI L LUNGS: Coarse sounds ABD: soft, NT, ND, +BS : Intact Neuro: non focal SKIN: chronic changes EXT: trace edema Results Result Diagram: 01/19/1751801/19/17518 Results 24 hrs Laboratory Tests Test 01/18/17 10:06 01/18/17 12:02 01/18/17 13:31 01/18/17 13:58 Bedside Glucose 276 H 192 84 72 Test 01/18/17 14:46 01/18/17 15:40 01/18/17 17:23 01/18/17 20:13 Bedside Glucose 58 L 127 289 H 137 Test 01/19/17 02:04 01/19/17 05:19 01/19/17 07:53 Bedside Glucose 145 163 White Blood Count 5.8 Red Blood Count 3.65 L Hemoglobin 11.7 L Hematocrit 35.5 L Mean Corpuscular Volume 97.3 Mean Corpuscular Hemoglobin 32.1 Mean Corpuscular Hemoglobin Concent 33.0 Red Cell Distribution Width 15.9 H Platelet Count 262 Mean Platelet Volume 9.1 Neutrophils % 45.7 Lymphocytes % 29.6 Monocytes % 8.8 Eosinophils % 14.2 H Basophils % 1.4 Nucleated Red Blood Cells % 0.0 Neutrophils # 2.6 Lymphocytes # 1.7 Monocytes # 0.5 Eosinophils # 0.8 H Basophils # 0.1 Nucleated Red Blood Cells # 0.0 Prothrombin Time 11.7 L Prothrombin Time Ratio 0.9 INR International Normalized Ratio 0.86 Sodium Level 143 Potassium Level 4.5 Chloride Level 100 Carbon Dioxide Level 32 H Anion Gap 16 Blood Urea Nitrogen 14 Creatinine 0.56 Glucose Level 122 # Calcium Level 9.5 Phosphorus Level 4.7 Magnesium Level 1.9 Medications Medications Current Medications Ondansetron HCl (Zofran Inj) 4 mg Q6H PRN IV NAUSEA AND/OR VOMITING; Start at 11:30 Acetaminophen (Tylenol Tab) 650 mg Q6H PRN PO PAIN LEVEL 1-3 OR FEVER; Start at 11:30 Acetaminophen (Tylenol Supp) 650 mg Q6H PRN [place] PAIN LEVEL 1-3 OR FEVER; Start 01/06/17 at 11:30 Heparin Sodium (Porcine) (Heparin (5000 Units/0.5 ml)) 5,000 unit Q12 SC Last administered on 01/19/17t 08:55; Admin Dose 5,000 UNIT; Start 01/06/17 at 21:00 Alendronate Sodium (Fosamax) 70 mg Q7D PO Last administered on 01/13/17 14:47; Admin Dose 70 MG; Start 01/06/17 at 14:00 Aspirin (Halfprin) 81 mg DAILY PO Last administered on 01/19/17 08:53; Admin Dose 81 MG; Start 01/07/17 at 09:00 Duloxetine HCl (Cymbalta) 20 mg DAILY PO Last administered on 01/19/17 08:53; Admin Dose 20 MG; Start 01/07/17 at 09:00 Gabapentin (Neurontin) 300 mg TID PO Last administered on 01/19/17 08:53; Admin Dose 300 MG; Start 01/06/17 at 13:00 Metoprolol Tartrate (Lopressor) 12.5 mg BID PO ; Start 01/06/17 at 21:00; Status Future Hold Ticagrelor (Brilinta) 90 mg BID PO Last administered on 01/16/17 08:21; Admin Dose 90 MG; Start 01/06/17 at 21:00; Status Future Hold Diagnostic Test (Pha) (Accu-Chek) 1 ea 02 XX Last administered on 01/19/17 02: 07; Admin Dose 1 EA; Start 01/07/17 at 02:00 Furosemide (Lasix) 20 mg DAILY PO ; Start 01/07/17 at 09:00; Status Future Hold Bisacodyl (Dulcolax Supp) 10 mg DAILY PRN [place] CONSTIPATION; Start 01/06/17 at 11 :30 Guaifenesin (Robitussin Liquid Cup) 100 mg Q6H PRN PO COUGH Last administered on 01/08/17 07:54; Admin Dose 100 MG; Start 01/06/17 at 11:30 Levothyroxine Sodium (Synthroid) 112 mcg DAILY@06 PO Last administered on 05:09; Admin Dose 112 MCG; Start 01/07/17 at 06:00 Lisinopril (Zestril) 2.5 mg DAILY PO Last administered on 01/18/17 08:18; Admin Dose 2.5 MG; Start 01/07/17 at 09:00 Polyethylene Glycol (Miralax) 17 gm DAILY PO Last administered on 01/07/17 08: 24; Admin Dose 17 GM; Start 01/07/17 at 09:00 Senna (Senokot) 2 tab HS PO Last administered on 01/18/17 20:14; Admin Dose 2 TAB; Start 01/06/17 at 21:00 Miscellaneous Information 1 ea NOTE XX ; Start 01/06/17 at 12:00 Glucose (Glutose) 15 gm Q15M PRN PO DECREASED GLUCOSE Last administered on 14:53; Admin Dose 15 GM; Start 01/06/17 at 12:00 Glucose (Glutose) 22.5 gm Q15M PRN PO DECREASED GLUCOSE Last administered on 03:34; Admin Dose 22.5 GM; Start 01/06/17 at 12:00 Dextrose (D50w Syringe) 25 ml Q15M PRN IV DECREASED GLUCOSE; Start 01/06/17 at 12:00 Dextrose (D50w Syringe) 50 ml Q15M PRN IV DECREASED GLUCOSE Last administered on 01/15/17 11:52; Admin Dose 50 ML; Start 01/06/17 at 12:00 Glucagon (Glucagen) 1 mg Q15M PRN IM DECREASED GLUCOSE; Start 01/06/17 at 12:00 Glucose (Glutose) 15 gm Q15M PRN BUCCAL DECREASED GLUCOSE Last administered on 01/10/17 07:07; Admin Dose 15 GM; Start 01/06/17 at 12:00 Atorvastatin Calcium (Lipitor) 40 mg HS PO Last administered on 01/18/17 20:14 ; Admin Dose 40 MG; Start 01/14/17 at 21:00 Lidocaine (Xylocaine 4% (Mpf)) 5 ml ONCE PRN HHN BREATHING TREATMENT Last administered on 01/15/17 09:38; Admin Dose 5 ML; Start 01/15/17 at 09:30 Insulin Glargine (Lantus) 14 unit DAILY@20 SC Last administered on 01/18/17 20: 16; Admin Dose 14 UNIT; Start 01/17/17 at 20:00 ARTIE MARADIAGA MD Jan 19, 2017 09:17
[2017-01-19 14:00] VITALS: BP 103/54; RESP 16
--- NOTE | 2017-01-19 14:45 | PN ---
Date/Time of Note Date/Time of Note DATE: 01/19/17 TIME: 14:44 Assessment/Plan VTE Prophylaxis VTE Prophylaxis Intervention: SCD's Lines/Catheters IV Catheter Type (from [facility]): Saline [facility] Urinary Cath still in place: No Assessment/Plan Assessment/Plan 56 yo F with poorly controlled DM2 admitted for NSTEMI in setting DKA. Found to have multivessel CAD. Awaiting CABG. Also with incidental finding of L sided subglottic lesion. Plan as of now is subglottic lesion eval prior to CABG 1. L subglottic lesion: ENT OR date pending 2. multivessel CAD, recent NSTEMI, ICM with EF <25%. CABG pending follow-up CTS recommendations, planning on possible bypass surgery after subglottic mass lesion is removed --cont current cardiac meds-->bb/lasix on hold for prior episodes of orthostasis earlier this admission Brilinta on hold given possible impending surgeries 3. Severe obstructive and restrictive pulmonary disease. -Continue bronchodilators. 4. DM with wide BG fluctuations -endo on consult for aid with insulin management 5. Hypothyroidism. -Continue Synthroid. 6. Chronic anemia. H&H stable. Will monitor. 7. Significant deconditioning -Continue with physical therapy as tolerated. DVT prophylaxis: Heparin discharge pending throat mass eval from ENT and CABG Subjective 24 Hr Interval Summary Free Text/Dictation Pt feels ok. Wondering if/when she will be getting her surgeries and finally leave the hospital Exam/Review of Systems Vital Signs Vitals Vital Signs Date Time Temp Pulse Resp B/P Pulse Ox O2 Delivery O2 Flow Rate FiO2 01/19/17 08:18 98.3 88 18 113/54 95 01/15/17 09:55 Room Air Intake and Output 01/18/17 01/18/17 01/19/17 15:00 23:00 07:00 Intake Total 1320 ml 800 ml Balance 1320 ml 800 ml Exam nad no mrg lungs clear abd soft no rashes BGs reviewed Results Result Diagram: 01/19/17 0519 01/19/17 0519 Results 24 hrs Laboratory Tests Test 01/18/17 14:46 01/18/17 15:40 01/18/17 17:23 01/18/17 20:13 Bedside Glucose 58 L 127 289 H 137 Test 01/19/17 02:04 01/19/17 05:19 01/19/17 07:53 01/19/17 10:18 Bedside Glucose 145 163 187 White Blood Count 5.8 Red Blood Count 3.65 L Hemoglobin 11.7 L Hematocrit 35.5 L Mean Corpuscular Volume 97.3 Mean Corpuscular Hemoglobin 32.1 Mean Corpuscular Hemoglobin Concent 33.0 Red Cell Distribution Width 15.9 H Platelet Count 262 Mean Platelet Volume 9.1 Neutrophils % 45.7 Lymphocytes % 29.6 Monocytes % 8.8 Eosinophils % 14.2 H Basophils % 1.4 Nucleated Red Blood Cells % 0.0 Neutrophils # 2.6 Lymphocytes # 1.7 Monocytes # 0.5 Eosinophils # 0.8 H Basophils # 0.1 Nucleated Red Blood Cells # 0.0 Prothrombin Time 11.7 L Prothrombin Time Ratio 0.9 INR International Normalized Ratio 0.86 Sodium Level 143 Potassium Level 4.5 Chloride Level 100 Carbon Dioxide Level 32 H Anion Gap 16 Blood Urea Nitrogen 14 Creatinine 0.56 Glucose Level 122 # Calcium Level 9.5 Phosphorus Level 4.7 Magnesium Level 1.9 Test 01/19/17 11:46 01/19/17 13:59 Bedside Glucose 203 80 Medications Medications Current Medications Ondansetron HCl (Zofran Inj) 4 mg Q6H PRN IV NAUSEA AND/OR VOMITING; Start at 11:30 Acetaminophen (Tylenol Tab) 650 mg Q6H PRN PO PAIN LEVEL 1-3 OR FEVER; Start at 11:30 Acetaminophen (Tylenol Supp) 650 mg Q6H PRN [place] PAIN LEVEL 1-3 OR FEVER; Start 01/06/17 at 11:30 Heparin Sodium (Porcine) (Heparin (5000 Units/0.5 ml)) 5,000 unit Q12 SC Last administered on 01/19/17 08:55; Admin Dose 5,000 UNIT; Start 01/06/17 at 21:00 Alendronate Sodium (Fosamax) 70 mg Q7D PO Last administered on 01/13/17 14:47; Admin Dose 70 MG; Start 01/06/17 at 14:00 Aspirin (Halfprin) 81 mg DAILY PO Last administered on 01/19/17 08:53; Admin Dose 81 MG; Start 01/07/17 at 09:00 Duloxetine HCl (Cymbalta) 20 mg DAILY PO Last administered on 01/19/17 08:53; Admin Dose 20 MG; Start 01/07/17 at 09:00 Gabapentin (Neurontin) 300 mg TID PO Last administered on 01/19/17 13:57; Admin Dose 300 MG; Start 01/06/17 at 13:00 Metoprolol Tartrate (Lopressor) 12.5 mg BID PO ; Start 01/06/17 at 21:00; Status Future Hold Ticagrelor (Brilinta) 90 mg BID PO Last administered on 01/16/17 08:21; Admin Dose 90 MG; Start 01/06/17 at 21:00; Status Future Hold Diagnostic Test (Pha) (Accu-Chek) 1 ea 02 XX Last administered on 01/19/17 02: 07; Admin Dose 1 EA; Start 01/07/17 at 02:00 Furosemide (Lasix) 20 mg DAILY PO ; Start 01/07/17 at 09:00; Status Future Hold Bisacodyl (Dulcolax Supp) 10 mg DAILY PRN [place] CONSTIPATION; Start 01/06/17 at 11 :30 Guaifenesin (Robitussin Liquid Cup) 100 mg Q6H PRN PO COUGH Last administered on 01/08/17 07:54; Admin Dose 100 MG; Start 01/06/17 at 11:30 Levothyroxine Sodium (Synthroid) 112 mcg DAILY@06 PO Last administered on 05:09; Admin Dose 112 MCG; Start 01/07/17 at 06:00 Lisinopril (Zestril) 2.5 mg DAILY PO Last administered on 01/18/17 08:18; Admin Dose 2.5 MG; Start 01/07/17 at 09:00 Polyethylene Glycol (Miralax) 17 gm DAILY PO Last administered on 01/07/17 08: 24; Admin Dose 17 GM; Start 01/07/17 at 09:00 Senna (Senokot) 2 tab HS PO Last administered on 01/18/17 20:14; Admin Dose 2 TAB; Start 01/06/17 at 21:00 Miscellaneous Information 1 ea NOTE XX ; Start 01/06/17 at 12:00 Glucose (Glutose) 15 gm Q15M PRN PO DECREASED GLUCOSE Last administered on 14:53; Admin Dose 15 GM; Start 01/06/17 at 12:00 Glucose (Glutose) 22.5 gm Q15M PRN PO DECREASED GLUCOSE Last administered on 03:34; Admin Dose 22.5 GM; Start 01/06/17 at 12:00 Dextrose (D50w Syringe) 25 ml Q15M PRN IV DECREASED GLUCOSE; Start 01/06/17 at 12:00 Dextrose (D50w Syringe) 50 ml Q15M PRN IV DECREASED GLUCOSE Last administered on 01/15/17 11:52; Admin Dose 50 ML; Start 01/06/17 at 12:00 Glucagon (Glucagen) 1 mg Q15M PRN IM DECREASED GLUCOSE; Start 01/06/17 at 12:00 Glucose (Glutose) 15 gm Q15M PRN BUCCAL DECREASED GLUCOSE Last administered on 01/10/17 07:07; Admin Dose 15 GM; Start 01/06/17 at 12:00 Atorvastatin Calcium (Lipitor) 40 mg HS PO Last administered on 01/18/17 20:14 ; Admin Dose 40 MG; Start 01/14/17 at 21:00 Lidocaine (Xylocaine 4% (Mpf)) 5 ml ONCE PRN HHN BREATHING TREATMENT Last administered on 01/15/17 09:38; Admin Dose 5 ML; Start 01/15/17 at 09:30 Insulin Glargine (Lantus) 14 unit DAILY@20 SC Last administered on 01/18/17 20: 16; Admin Dose 14 UNIT; Start 01/17/17 at 20:00 ROBEL PETTY MD Jan 19, 2017 14:45
[2017-01-19] MEDS: GLUCOSE GEL 15 GRAM TUBE PO PRN (15:05)
--- NOTE | 2017-01-19 18:26 | CONS ---
Date/Time of Note Date/Time of Note DATE: 01/19/17 TIME: 18:23 Assessment/Plan Assessment/Plan Problems: (1) Type 1 diabetes mellitus with diabetic polyneuropathy Status: Chronic Comment: Insulin doses increased w/ good result but now sl. below goal. Will decrease lantus to 13 units. May need to go back up to 14 depending on am results. May require more Novolog w/ breakfast and less w/ lunch depending on BG pattern (if a discernable one develops). Consultation Date/Type/Reason Admit Date/Time Jan 06, 2017 at 10:49 Initial Consult Date 01/14/17 Type of Consultation: Endocrinology Reason for Consultation T1DM OOC Referring Provider: TANIYA OLMSTEAD 24 HR Interval Summary Constitutional: no complaints Detailed Summary Respiratory: no complaints Cardiovascular: no complaints Gastrointestinal: no complaints Genitourinary: no complaints Musculoskeletal: no complaints Neurologic: no complaints Endocrine: other (notes had string cheese at hs and it did not spike glucose. Wants carb-free hs snack.) Exam/Review of Systems Vital Signs Vitals VS - Last 72 Hours, by Label Date Time Temp Pulse Resp B/P Pulse Ox O2 Delivery O2 Flow Rate FiO2 01/19/17 14:00 98.8 95 16 103/54 97 01/19/17 08:18 98.3 88 18 113/54 95 01/19/17 02:33 97.3 86 18 105/54 98 01/18/17 21:47 98.7 82 18 102/52 100 01/18/17 14:36 98.6 97 16 119/57 96 01/18/17 08:15 98.4 86 16 114/56 96 01/18/17 02:00 98.0 82 19 95/56 98 01/17/17 20:00 98.4 86 20 96/51 100 01/17/17 14:00 98.1 88 19 99/53 97 01/17/17 08:00 98.6 86 19 114/51 97 01/17/17 02:00 98.6 82 20 110/56 97 01/16/17 20:00 98.3 81 20 102/79 98 Vital Signs Date Time Temp Pulse Resp B/P Pulse Ox O2 Delivery O2 Flow Rate FiO2 01/19/17 14:00 98.8 95 16 103/54 97 01/15/17 09:55 Room Air Intake and Output 01/18/17 01/18/17 01/19/17 15:00 23:00 07:00 Intake Total 1320 ml 800 ml Balance 1320 ml 800 ml Exam Constitutional: alert, oriented, well developed Respiratory: clear to auscultation, normal air movement Cardiovascular: nl pulses, regular rate and rhythm, No edema, No murmurs/extra sounds, No rub Gastrointestinal: bowel sounds, nl liver, spleen, non-tender, soft, No mass, No rebound or guarding Musculoskeletal: nl extremities to inspection Extremities: normal pulses, No clubbing, No cyanosis, No edema 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: FLASH DEVELOPER II-XII intact, nl mental status, nl speech, nl strength Additional Comments Bedside Glucose - 72 Hours Test 01/16/17 21:01 01/17/17 01:51 01/17/17 07:56 01/17/17 10:06 Bedside Glucose 118mg/dL (70-220) 254mg/dL (70-220) H 279mg/dL (70-220) H 189mg/dL (70-220) Test 01/17/17 12:17 01/17/17 14:32 01/17/17 16:56 01/17/17 19:58 Bedside Glucose 108mg/dL (70-220) 71mg/dL (70-220) 82mg/dL (70-220) 122mg/dL (70-220) Test 01/17/17 21:01 01/18/17 02:05 01/18/17 08:02 01/18/17 10:06 Bedside Glucose 93mg/dL (70-220) 111mg/dL (70-220) 116mg/dL (70-220) 276mg/dL (70-220) H Test 01/18/17 12:02 01/18/17 13:31 01/18/17 13:58 01/18/17 14:46 Bedside Glucose 192mg/dL (70-220) 84mg/dL (70-220) 72mg/dL (70-220) 58mg/dL (70-220) L Test 01/18/17 15:40 01/18/17 17:23 01/18/17 20:13 01/19/17 02:04 Bedside Glucose 127mg/dL (70-220) 289mg/dL (70-220) H 137mg/dL (70-220) 145mg/dL (70-220) Test 01/19/17 07:53 01/19/17 10:18 01/19/17 11:46 01/19/17 13:59 Bedside Glucose 163mg/dL (70-220) 187mg/dL (70-220) 203mg/dL (70-220) 80mg/dL (70-220) Test 01/19/17 14:43 01/19/17 15:02 01/19/17 15:19 01/19/17 15:40 Bedside Glucose 46mg/dL (70-220) *L 67mg/dL (70-220) L 109mg/dL (70-220) 106mg/dL (70-220) Test 01/19/17 17:18 Bedside Glucose 79mg/dL (70-220) Results Result Diagram: 01/19/17 0519 01/19/17 0519 Results 24 hrs Laboratory Tests Test 01/18/17 20:13 01/19/17 02:04 01/19/17 05:19 01/19/17 07:53 Bedside Glucose 137 145 163 White Blood Count 5.8 Red Blood Count 3.65 L Hemoglobin 11.7 L Hematocrit 35.5 L Mean Corpuscular Volume 97.3 Mean Corpuscular Hemoglobin 32.1 Mean Corpuscular Hemoglobin Concent 33.0 Red Cell Distribution Width 15.9 H Platelet Count 262 Mean Platelet Volume 9.1 Neutrophils % 45.7 Lymphocytes % 29.6 Monocytes % 8.8 Eosinophils % 14.2 H Basophils % 1.4 Nucleated Red Blood Cells % 0.0 Neutrophils # 2.6 Lymphocytes # 1.7 Monocytes # 0.5 Eosinophils # 0.8 H Basophils # 0.1 Nucleated Red Blood Cells # 0.0 Prothrombin Time 11.7 L Prothrombin Time Ratio 0.9 INR International Normalized Ratio 0.86 Sodium Level 143 Potassium Level 4.5 Chloride Level 100 Carbon Dioxide Level 32 H Anion Gap 16 Blood Urea Nitrogen 14 Creatinine 0.56 Glucose Level 122 # Calcium Level 9.5 Phosphorus Level 4.7 Magnesium Level 1.9 Test 01/19/17 10:18 01/19/17 11:46 01/19/17 13:59 01/19/17 14:43 Bedside Glucose 187 203 80 46 *L Test 01/19/17 15:02 01/19/17 15:19 01/19/17 15:40 01/19/17 17:18 Bedside Glucose 67 L 109 106 79 Medications Medications Current Medications Ondansetron HCl (Zofran Inj) 4 mg Q6H PRN IV NAUSEA AND/OR VOMITING; Start at 11:30 Acetaminophen (Tylenol Tab) 650 mg Q6H PRN PO PAIN LEVEL 1-3 OR FEVER; Start at 11:30 Acetaminophen (Tylenol Supp) 650 mg Q6H PRN [place] PAIN LEVEL 1-3 OR FEVER; Start 01/06/17 at 11:30 Heparin Sodium (Porcine) (Heparin (5000 Units/0.5 ml)) 5,000 unit Q12 SC Last administered on 01/19/17 08:55; Admin Dose 5,000 UNIT; Start 01/06/17 at 21:00 Alendronate Sodium (Fosamax) 70 mg Q7D PO Last administered on 01/13/17 14:47; Admin Dose 70 MG; Start 01/06/17 at 14:00 Aspirin (Halfprin) 81 mg DAILY PO Last administered on 01/19/17 08:53; Admin Dose 81 MG; Start 01/07/17 at 09:00 Duloxetine HCl (Cymbalta) 20 mg DAILY PO Last administered on 01/19/17 08:53; Admin Dose 20 MG; Start 01/07/17 at 09:00 Gabapentin (Neurontin) 300 mg TID PO Last administered on 01/19/17 13:57; Admin Dose 300 MG; Start 01/06/17 at 13:00 Metoprolol Tartrate (Lopressor) 12.5 mg BID PO ; Start 01/06/17 at 21:00; Status Future Hold Ticagrelor (Brilinta) 90 mg BID PO Last administered on 01/16/17 08:21; Admin Dose 90 MG; Start 01/06/17 at 21:00; Status Future Hold Diagnostic Test (Pha) (Accu-Chek) 1 ea 02 XX Last administered on 01/19/17 02: 07; Admin Dose 1 EA; Start 01/07/17 at 02:00 Furosemide (Lasix) 20 mg DAILY PO ; Start 01/07/17 at 09:00; Status Future Hold Bisacodyl (Dulcolax Supp) 10 mg DAILY PRN [place] CONSTIPATION; Start 01/06/17 at 11 :30 Guaifenesin (Robitussin Liquid Cup) 100 mg Q6H PRN PO COUGH Last administered on 01/08/17 07:54; Admin Dose 100 MG; Start 01/06/17 at 11:30 Levothyroxine Sodium (Synthroid) 112 mcg DAILY@06 PO Last administered on 05:09; Admin Dose 112 MCG; Start 01/07/17 at 06:00 Lisinopril (Zestril) 2.5 mg DAILY PO Last administered on 01/18/17 08:18; Admin Dose 2.5 MG; Start 01/07/17 at 09:00 Polyethylene Glycol (Miralax) 17 gm DAILY PO Last administered on 01/07/17 08: 24; Admin Dose 17 GM; Start 01/07/17 at 09:00 Senna (Senokot) 2 tab HS PO Last administered on 01/18/17 20:14; Admin Dose 2 TAB; Start 01/06/17 at 21:00 Miscellaneous Information 1 ea NOTE XX ; Start 01/06/17 at 12:00 Glucose (Glutose) 15 gm Q15M PRN PO DECREASED GLUCOSE Last administered on 15:05; Admin Dose 15 GM; Start 01/06/17 at 12:00 Glucose (Glutose) 22.5 gm Q15M PRN PO DECREASED GLUCOSE Last administered on 03:34; Admin Dose 22.5 GM; Start 01/06/17 at 12:00 Dextrose (D50w Syringe) 25 ml Q15M PRN IV DECREASED GLUCOSE; Start 01/06/17 at 12:00 Dextrose (D50w Syringe) 50 ml Q15M PRN IV DECREASED GLUCOSE Last administered on 01/15/17 11:52; Admin Dose 50 ML; Start 01/06/17 at 12:00 Glucagon (Glucagen) 1 mg Q15M PRN IM DECREASED GLUCOSE; Start 01/06/17 at 12:00 Glucose (Glutose) 15 gm Q15M PRN BUCCAL DECREASED GLUCOSE Last administered on 01/10/17 07:07; Admin Dose 15 GM; Start 01/06/17 at 12:00 Atorvastatin Calcium (Lipitor) 40 mg HS PO Last administered on 01/18/17 20:14 ; Admin Dose 40 MG; Start 01/14/17 at 21:00 Lidocaine (Xylocaine 4% (Mpf)) 5 ml ONCE PRN HHN BREATHING TREATMENT Last administered on 01/15/17 09:38; Admin Dose 5 ML; Start 01/15/17 at 09:30 Insulin Glargine (Lantus) 13 unit DAILY@20 SC ; Start 01/19/17 at 20:00 DARYL MYERS MD Jan 19, 2017 18:26
[2017-01-19 20:00] VITALS: BP 119/57; RESP 18
[2017-01-19] MEDS ORDERED: INSULIN GLARGINE [LANtus] 3 ML PEN SC SCH (20:00)
[2017-01-19] MEDS: ATORVASTATIN 40 MG TAB PO SCH (21:07)
[2017-01-19] MEDS: SENNA TAB PO SCH (21:07)
[2017-01-20] MEDS: ACCU-CHEK XX SCH ×4 (02:11→20:05)
[2017-01-20 02:48] VITALS: BP 102/54; RESP 20
--- NOTE | 2017-01-20 05:19 | DS ---
DATE OF ADMISSION: 01/06/2017 DATE OF DISCHARGE: All previous ENT notes were re-evaluated. I had seen her when she was admitted to the rehab unit and she was quite hoarse at that time. She was noted to have a posterior tracheal mass approximately 1 cm below the level of the cords. This occurred shortly after an extended intubation. She is presently not hoarse at all and is not complaining of any dysphagia ,again an endoscopy was done through the right nasal cavity. The nasopharynx is clear. Base of tongue symmetric, vallecula was open. Epiglottis normal. Vocal cords are moving well. Again, I do see a posterior tracheal lesion below the level of the cords, yet it is smaller and more benign-appearing than what I had seen during my last endoscopy. With that being said, I do indeed believe that this was related to her extended intubation as it is slowly improved over time. Her voice is no longer hoarse and it has gotten smaller, so I do not feel the need to do any procedure at this time. We will continue to follow her from an ENT standpoint. If there are any questions or concerns. Please feel free to re-consult at that time. Thank you very much. Dictated By: Michael Martinez MD /[email or web address] /Document#: [id number]
[2017-01-20] MEDS: LEVOTHYROXINE 112 MCG TAB PO SCH (05:26)
[2017-01-20 06:03] LABS: BASOPHIL # 0.1 10^3/ul (0.0-0.1); BASOPHILS % 1.4 % (0.0-2.0); EOSINOPHILS # 0.8 10^3/ul (0.0-0.5); EOSINOPHILS % 13.4 % (0.0-7.0); HEMATOCRIT 36.2 % (37.0-47.0); HEMOGLOBIN 11.6 g/dl (12.0-16.0); LYMPHOCYTES # 1.5 10^3/ul (0.8-2.9); MEAN CORPUSCULAR HEMOGLOBIN 30.8 pg (29.0-33.0); MEAN PLATELET VOLUME 9.3 fl (7.4-10.4); MONOCYTE # 0.5 10^3/ul (0.3-0.9); MONOCYTES % 9.3 % (0.0-11.0); NEUTROPHIL # 2.8 10^3/ul (1.6-7.5); NEUTROPHILS % 49.5 % (39.0-77.0); PLATELET COUNT 263 10^3/UL (140-415); RED BLOOD COUNT 3.77 10^6/ul (4.20-5.40); RED CELL DISTRIBUTION WIDTH 15.9 % (11.5-14.5); WHITE BLOOD COUNT 5.7 10^3/ul (4.8-10.8)
[2017-01-20 06:35] LABS: CALCIUM 9.3 mg/dl (8.4-10.2); CREATININE 0.56 mg/dl (0.44-1.00); POTASSIUM 4.7 mmol/L (3.5-5.1)
[2017-01-20 08:10] VITALS: BP 103/56; RESP 18
[2017-01-20] MEDS: INSULIN ASPART [NOVOLOG] 3 ML PEN SC SCH ×8 (08:29→21:00)
[2017-01-20] MEDS: HEPARIN 5,000 UNIT/0.5 ML VIAL SC SCH (08:30)
[2017-01-20] MEDS: DULOXETINE 20 MG CAP DR PO SCH (08:33)
[2017-01-20] MEDS: LISINOPRIL 5 MG TAB PO SCH (08:33)
[2017-01-20] MEDS: ASPIRIN (EC) 81 MG TAB PO SCH (08:33)
[2017-01-20] MEDS: GABAPENTIN 300 MG CAP PO SCH ×3 (08:34→21:27)
[2017-01-20] MEDS: POLYETHYLENE GLYCOL 17 GM PACKET PO SCH (08:34)
--- NOTE | 2017-01-20 10:09 | CONS ---
Date/Time of Note Date/Time of Note DATE: 01/20/17 TIME: 10:07 Assessment/Plan Assessment/Plan Additional Assessment/Plan 1.NSTEMI-peak trop>60 Now dowtrended significantly s/p LHC with patent RCA stents and high grade disease of LAD/LCX with small caliber vessels and recc for CABG. Still ongoing surgical eval and question date of possible surgery - SURGERY on hold pending mass rx - SEEN BY ENT, no clear mass visualized 2.cardiomyopathy-LVEF 40-45 BY OSH echo. 25% by echo read here - will monitor - considerr ICD at 3-6 months depending on CABG response 3.Hypotension-orthostatics today with transfer to med-surg-? overdiuresis- currently improved- BETTER NOW 4.resp failure s/p extubation requiring PRN BIPAP which has now improved and not requiring further at this time 5.anemia 6. AMS/encephalopathy - much improved 7. PNA-ongoing by chest CT- better - MUCH improved 8. COPD 9. Hypothyroid 10.DM-labile BS 11.Neck mass? with dysphagia - evaluation in progress 12. carotid stenosis Consultation Date/Type/Reason Admit Date/Time Jan 06, 2017 at 10:49 Type of Consultation: Endocrinology Referring Provider: TANIYA OLMSTEAD 24 HR Interval Summary Free Text/Dictation SEEN BY ENT, no clear mass visualized - resume CABG prep ROS: No fever, no chills, no nausea, no vomiting, no diarrhea/constipation No recent weight changes No chest pain, no PND, no orthopnea No dizziness, blurred vision No thirst, no heat or cold intolerance Exam/Review of Systems Vital Signs Vitals Vital Signs Date Time Temp Pulse Resp B/P Pulse Ox O2 Delivery O2 Flow Rate FiO2 01/20/17 08:10 98.4 87 18 103/56 98 Intake and Output 01/19/17 01/19/17 01/20/17 15:00 23:00 07:00 Intake Total 1520 ml 440 ml Balance 1520 ml 440 ml Exam General: WN/WD/NAD, AOx 3 HEENT: Unicetric/atraumatic/EOMI (follow commands) NECK: JVD elevated, no thyromegaly Lymph: no lymphadenopathy HEART: regular with no S3, II/ systolic murmur at apex, PMI L LUNGS: Coarse sounds ABD: soft, NT, ND, +BS : Intact Neuro: non focal SKIN: chronic changes EXT: trace edema Results Result Diagram: 01/20/17 0533 01/20/17 0533 Results 24 hrs Laboratory Tests Test 01/19/17 10:18 01/19/17 11:46 01/19/17 13:59 01/19/17 14:43 Bedside Glucose 187 203 80 46 *L Test 01/19/17 15:02 01/19/17 15:19 01/19/17 15:40 01/19/17 17:18 Bedside Glucose 67 L 109 106 79 Test 01/19/17 20:45 01/19/17 22:24 01/20/17 02:04 01/20/17 05:33 Bedside Glucose 460 *H 394 H 255 H White Blood Count 5.7 Red Blood Count 3.77 L Hemoglobin 11.6 L Hematocrit 36.2 L Mean Corpuscular Volume 96.0 Mean Corpuscular Hemoglobin 30.8 Mean Corpuscular Hemoglobin Concent 32.0 Red Cell Distribution Width 15.9 H Platelet Count 263 Mean Platelet Volume 9.3 Neutrophils % 49.5 Lymphocytes % 26.0 Monocytes % 9.3 Eosinophils % 13.4 H Basophils % 1.4 Nucleated Red Blood Cells % 0.0 Neutrophils # 2.8 Lymphocytes # 1.5 Monocytes # 0.5 Eosinophils # 0.8 H Basophils # 0.1 Nucleated Red Blood Cells # 0.0 Sodium Level 139 Potassium Level 4.7 Chloride Level 98 Carbon Dioxide Level 29 Anion Gap 17 H Blood Urea Nitrogen 14 Creatinine 0.56 Glucose Level 324 #H Calcium Level 9.3 Test 01/20/17 08:10 Bedside Glucose 292 H Medications Medications Current Medications Ondansetron HCl (Zofran Inj) 4 mg Q6H PRN IV NAUSEA AND/OR VOMITING; Start at 11:30 Acetaminophen (Tylenol Tab) 650 mg Q6H PRN PO PAIN LEVEL 1-3 OR FEVER; Start at 11:30 Acetaminophen (Tylenol Supp) 650 mg Q6H PRN [place] PAIN LEVEL 1-3 OR FEVER; Start 01/06/17 at 11:30 Heparin Sodium (Porcine) (Heparin (5000 Units/0.5 ml)) 5,000 unit Q12 SC Last administered on 01/20/17t 08:30; Admin Dose 5,000 UNIT; Start 01/06/17 at 21:00 Alendronate Sodium (Fosamax) 70 mg Q7D PO Last administered on 01/13/17 14:47; Admin Dose 70 MG; Start 01/06/17 at 14:00 Aspirin (Halfprin) 81 mg DAILY PO Last administered on 01/20/17 08:33; Admin Dose 81 MG; Start 01/07/17 at 09:00 Duloxetine HCl (Cymbalta) 20 mg DAILY PO Last administered on 01/20/17 08:33; Admin Dose 20 MG; Start 01/07/17 at 09:00 Gabapentin (Neurontin) 300 mg TID PO Last administered on 01/20/17 08:34; Admin Dose 300 MG; Start 01/06/17 at 13:00 Metoprolol Tartrate (Lopressor) 12.5 mg BID PO ; Start 01/06/17 at 21:00; Status Future Hold Ticagrelor (Brilinta) 90 mg BID PO Last administered on 01/16/17 08:21; Admin Dose 90 MG; Start 01/06/17 at 21:00; Status Future Hold Diagnostic Test (Pha) (Accu-Chek) 1 ea 02 XX Last administered on 01/20/17 02: 11; Admin Dose 1 EA; Start 01/07/17 at 02:00 Furosemide (Lasix) 20 mg DAILY PO ; Start 01/07/17 at 09:00; Status Future Hold Bisacodyl (Dulcolax Supp) 10 mg DAILY PRN IN CONSTIPATION; Start 01/06/17 at 11 :30 Guaifenesin (Robitussin Liquid Cup) 100 mg Q6H PRN PO COUGH Last administered on 01/08/17 07:54; Admin Dose 100 MG; Start 01/06/17 at 11:30 Levothyroxine Sodium (Synthroid) 112 mcg DAILY@06 PO Last administered on 05:26; Admin Dose 112 MCG; Start 01/07/17 at 06:00 Lisinopril (Zestril) 2.5 mg DAILY PO Last administered on 01/18/17 08:18; Admin Dose 2.5 MG; Start 01/07/17 at 09:00 Polyethylene Glycol (Miralax) 17 gm DAILY PO Last administered on 01/07/17 08: 24; Admin Dose 17 GM; Start 01/07/17 at 09:00 Senna (Senokot) 2 tab HS PO Last administered on 01/19/17 21:07; Admin Dose 2 TAB; Start 01/06/17 at 21:00 Miscellaneous Information 1 ea NOTE XX ; Start 01/06/17 at 12:00 Glucose (Glutose) 15 gm Q15M PRN PO DECREASED GLUCOSE Last administered on 15:05; Admin Dose 15 GM; Start 01/06/17 at 12:00 Glucose (Glutose) 22.5 gm Q15M PRN PO DECREASED GLUCOSE Last administered on 03:34; Admin Dose 22.5 GM; Start 01/06/17 at 12:00 Dextrose (D50w Syringe) 25 ml Q15M PRN IV DECREASED GLUCOSE; Start 01/06/17 at 12:00 Dextrose (D50w Syringe) 50 ml Q15M PRN IV DECREASED GLUCOSE Last administered on 01/15/17 11:52; Admin Dose 50 ML; Start 01/06/17 at 12:00 Glucagon (Glucagen) 1 mg Q15M PRN IM DECREASED GLUCOSE; Start 01/06/17 at 12:00 Glucose (Glutose) 15 gm Q15M PRN BUCCAL DECREASED GLUCOSE Last administered on 01/10/17 07:07; Admin Dose 15 GM; Start 01/06/17 at 12:00 Atorvastatin Calcium (Lipitor) 40 mg HS PO Last administered on 01/19/17 21:07 ; Admin Dose 40 MG; Start 01/14/17 at 21:00 Lidocaine (Xylocaine 4% (Mpf)) 5 ml ONCE PRN HHN BREATHING TREATMENT Last administered on 01/15/17 09:38; Admin Dose 5 ML; Start 01/15/17 at 09:30 Insulin Glargine (Lantus) 13 unit DAILY@20 SC Last administered on 01/19/17 21: 03; Admin Dose 13 UNIT; Start 01/19/17 at 20:00 ARTIE MARADIAGA MD Jan 20, 2017 10:09
[2017-01-20] MEDS: ALENDRONATE 70 MG TAB PO SCH (13:54)
[2017-01-20 14:35] VITALS: BP 100/52; RESP 20
[2017-01-20] MEDS: GLUCOSE GEL 15 GRAM TUBE PO PRN ×2 (17:10→17:30)
[2017-01-20] MEDS ORDERED: POLYETHYLENE GLYCOL 17 GM PACKET PO PRN (18:30)
--- NOTE | 2017-01-20 18:33 | PN ---
Date/Time of Note Date/Time of Note DATE: 01/20/17 TIME: 18:30 Assessment/Plan VTE Prophylaxis VTE Prophylaxis Intervention: SCD's Lines/Catheters IV Catheter Type (from [facility]): Saline Lock Urinary Cath still in place: No Assessment/Plan Assessment/Plan 56 yo F with poorly controlled DM2 admitted for NSTEMI in setting DKA. Found to have multivessel CAD. Awaiting CABG. Also with incidental finding of L sided subglottic lesion. Unclear to me and patient timing of her procedure. 1. multivessel CAD, recent NSTEMI, ICM with EF <25%. CABG pending follow-up CTS recommendations, planning on possible bypass surgery after subglottic mass lesion is removed --cont current cardiac meds-->bb/lasix on hold for prior episodes of orthostasis earlier this admission Brilinta on hold given possible impending surgeries 2. L subglottic lesion:ENT states 2/2 prolonged intubation and does not require further w/u 3. Severe obstructive and restrictive pulmonary disease. -Continue bronchodilators. 4. DM with wide BG fluctuations -endo on consult for aid with insulin management 5. Hypothyroidism. -Continue Synthroid. 6. Chronic anemia. H&H stable. Will monitor. 7. Significant deconditioning -Continue with physical therapy as tolerated. DVT prophylaxis: LMWH I texted CT surgeon and requested that he and ENT discuss doc to doc regarding throat lesion to facilitate CABG scheduling Subjective 24 Hr Interval Summary Free Text/Dictation Pt still wondering what the logistics of her procedures will be Exam/Review of Systems Vital Signs Vitals Vital Signs Date Time Temp Pulse Resp B/P Pulse Ox O2 Delivery O2 Flow Rate FiO2 01/20/17 14:35 98.3 89 20 100/52 98 Intake and Output 01/19/17 01/19/17 01/20/17 15:00 23:00 07:00 Intake Total 1520 ml 440 ml Balance 1520 ml 440 ml Exam nad, sitting up in bed no mrg lungs clear abd soft no rashes Results Result Diagram: 01/20/1733 01/20/17532 Results 24 hrs Laboratory Tests Test 01/19/17 20:45 01/19/17 22:24 01/20/17 02:04 01/20/17 05:33 Bedside Glucose 460 *H 394 H 255 H White Blood Count 5.7 Red Blood Count 3.77 L Hemoglobin 11.6 L Hematocrit 36.2 L Mean Corpuscular Volume 96.0 Mean Corpuscular Hemoglobin 30.8 Mean Corpuscular Hemoglobin Concent 32.0 Red Cell Distribution Width 15.9 H Platelet Count 263 Mean Platelet Volume 9.3 Neutrophils % 49.5 Lymphocytes % 26.0 Monocytes % 9.3 Eosinophils % 13.4 H Basophils % 1.4 Nucleated Red Blood Cells % 0.0 Neutrophils # 2.8 Lymphocytes # 1.5 Monocytes # 0.5 Eosinophils # 0.8 H Basophils # 0.1 Nucleated Red Blood Cells # 0.0 Sodium Level 139 Potassium Level 4.7 Chloride Level 98 Carbon Dioxide Level 29 Anion Gap 17 H Blood Urea Nitrogen 14 Creatinine 0.56 Glucose Level 324 #H Calcium Level 9.3 Test 01/20/17 08:10 01/20/17 10:30 01/20/17 11:43 01/20/17 13:44 Bedside Glucose 292 H 271 H 227 H 91 Test 01/20/17 17:05 01/20/17 17:26 01/20/17 17:47 Bedside Glucose 59 L 80 143 Medications Medications Current Medications Ondansetron HCl (Zofran Inj) 4 mg Q6H PRN IV NAUSEA AND/OR VOMITING; Start at 11:30 Acetaminophen (Tylenol Tab) 650 mg Q6H PRN PO PAIN LEVEL 1-3 OR FEVER; Start at 11:30 Acetaminophen (Tylenol Supp) 650 mg Q6H PRN [place] PAIN LEVEL 1-3 OR FEVER; Start 01/06/17 at 11:30 Heparin Sodium (Porcine) (Heparin (5000 Units/0.5 ml)) 5,000 unit Q12 SC Last administered on 01/20/17 08:30; Admin Dose 5,000 UNIT; Start 01/06/17 at 21:00 Aspirin (Halfprin) 81 mg DAILY PO Last administered on 01/20/17 08:33; Admin Dose 81 MG; Start 01/07/17 at 09:00 Duloxetine HCl (Cymbalta) 20 mg DAILY PO Last administered on 01/20/17 08:33; Admin Dose 20 MG; Start 01/07/17 at 09:00 Gabapentin (Neurontin) 300 mg TID PO Last administered on 01/20/17 12:11; Admin Dose 300 MG; Start 01/06/17 at 13:00 Metoprolol Tartrate (Lopressor) 12.5 mg BID PO ; Start 01/06/17 at 21:00; Status Future Hold Ticagrelor (Brilinta) 90 mg BID PO Last administered on 01/16/17 08:21; Admin Dose 90 MG; Start 01/06/17 at 21:00; Status Future Hold Diagnostic Test (Pha) (Accu-Chek) 1 ea 02 XX Last administered on 01/20/17 02: 11; Admin Dose 1 EA; Start 01/07/17 at 02:00 Furosemide (Lasix) 20 mg DAILY PO ; Start 01/07/17 at 09:00; Status Future Hold Bisacodyl (Dulcolax Supp) 10 mg DAILY PRN [place] CONSTIPATION; Start 01/06/17 at 11 :30 Guaifenesin (Robitussin Liquid Cup) 100 mg Q6H PRN PO COUGH Last administered on 01/08/17 07:54; Admin Dose 100 MG; Start 01/06/17 at 11:30 Levothyroxine Sodium (Synthroid) 112 mcg DAILY@06 PO Last administered on 05:26; Admin Dose 112 MCG; Start 01/07/17 at 06:00 Lisinopril (Zestril) 2.5 mg DAILY PO Last administered on 01/18/17 08:18; Admin Dose 2.5 MG; Start 01/07/17 at 09:00 Polyethylene Glycol (Miralax) 17 gm DAILY PO Last administered on 01/07/17 08: 24; Admin Dose 17 GM; Start 01/07/17 at 09:00 Senna (Senokot) 2 tab HS PO Last administered on 01/19/17 21:07; Admin Dose 2 TAB; Start 01/06/17 at 21:00 Miscellaneous Information 1 ea NOTE XX ; Start 01/06/17 at 12:00 Glucose (Glutose) 15 gm Q15M PRN PO DECREASED GLUCOSE Last administered on 17:30; Admin Dose 15 GM; Start 01/06/17 at 12:00 Glucose (Glutose) 22.5 gm Q15M PRN PO DECREASED GLUCOSE Last administered on 03:34; Admin Dose 22.5 GM; Start 01/06/17 at 12:00 Dextrose (D50w Syringe) 25 ml Q15M PRN IV DECREASED GLUCOSE; Start 01/06/17 at 12:00 Dextrose (D50w Syringe) 50 ml Q15M PRN IV DECREASED GLUCOSE Last administered on 01/15/17 11:52; Admin Dose 50 ML; Start 01/06/17 at 12:00 Glucagon (Glucagen) 1 mg Q15M PRN IM DECREASED GLUCOSE; Start 01/06/17 at 12:00 Glucose (Glutose) 15 gm Q15M PRN BUCCAL DECREASED GLUCOSE Last administered on 01/10/17 07:07; Admin Dose 15 GM; Start 01/06/17 at 12:00 Atorvastatin Calcium (Lipitor) 40 mg HS PO Last administered on 01/19/17 21:07 ; Admin Dose 40 MG; Start 01/14/17 at 21:00 Lidocaine (Xylocaine 4% (Mpf)) 5 ml ONCE PRN HHN BREATHING TREATMENT Last administered on 01/15/17 09:38; Admin Dose 5 ML; Start 01/15/17 at 09:30 Alendronate Sodium (Fosamax) 70 mg We@0630 PO ; Start 01/21/17 at 06:30 Insulin Glargine (Lantus) 12 unit DAILY@08 SC ; Start 01/21/17 at 08:00; Status UNV Miscellaneous Information (* Miscellaneous Pharmacy Order) Discontinue all previ... ONCE ONCE XX ; Start 01/20/17 at 18:30; Stop 01/20/17 at 18:31; Status UNV ROBEL PETTY MD Jan 20, 2017 18:33
--- NOTE | 2017-01-20 20:04 | CONS ---
Date/Time of Note Date/Time of Note DATE: 01/20/17 TIME: 19:59 Assessment/Plan Assessment/Plan Problems: (1) Type 1 diabetes mellitus with diabetic polyneuropathy Status: Chronic Comment: Novolog held last night at dinner due to BG near low. This has happened again tonight. Results in profound hyperglycemia which carries over to am. However, pt. remains w/ hyperglycemia at midday but by afternoon and evening, BG is below goal. Will again reduce lantus to 12 units but increase am Novolog from 7 to 8 units and decrease Novolog w/ lunch and dinner from 7 to 6 units. Will also advise that Novolog needs to be given before EVERY MEAL even if BG is below goal. Must treat mild hypoglycemia and then still cover meal. Will reeval tomorrow. Consultation Date/Type/Reason Admit Date/Time Jan 06, 2017 at 10:49 Initial Consult Date 01/14/17 Type of Consultation: Endocrinology Reason for Consultation T1DM OOC Referring Provider: TANIYA OLMSTEAD 24 HR Interval Summary Constitutional: no complaints Detailed Summary Respiratory: no complaints Cardiovascular: no complaints Gastrointestinal: no complaints Genitourinary: no complaints Musculoskeletal: no complaints Neurologic: no complaints Exam/Review of Systems Vital Signs Vitals VS - Last 72 Hours, by Label Date Time Temp Pulse Resp B/P Pulse Ox O2 Delivery O2 Flow Rate FiO2 01/20/17 14:35 98.3 89 20 100/52 98 01/20/17 08:10 98.4 87 18 103/56 98 01/20/17 02:48 98.0 81 20 102/54 96 01/19/17 20:00 98.3 83 18 119/57 99 01/19/17 14:00 98.8 95 16 103/54 97 01/19/17 08:18 98.3 88 18 113/54 95 01/19/17 02:33 97.3 86 18 105/54 98 01/18/17 21:47 98.7 82 18 102/52 100 01/18/17 14:36 98.6 97 16 119/57 96 01/18/17 08:15 98.4 86 16 114/56 96 01/18/17 02:00 98.0 82 19 95/56 98 Vital Signs Date Time Temp Pulse Resp B/P Pulse Ox O2 Delivery O2 Flow Rate FiO2 01/20/17 14:35 98.3 89 20 100/52 98 Intake and Output 01/19/17 01/19/17 01/20/17 15:00 23:00 07:00 Intake Total 1520 ml 440 ml Balance 1520 ml 440 ml Exam Constitutional: alert, oriented, well developed Psych: nl mood/affect, no complaints Respiratory: clear to auscultation, normal air movement Cardiovascular: nl pulses, regular rate and rhythm, No edema, No murmurs/extra sounds, No rub Gastrointestinal: bowel sounds, nl liver, spleen, non-tender, soft, No mass, No rebound or guarding Musculoskeletal: nl extremities to inspection Extremities: normal pulses, No clubbing, No cyanosis, No edema 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: [employer] II-XII intact, nl mental status, nl speech, nl strength Additional Comments Bedside Glucose - 72 Hours Test 01/17/17 21:01 01/18/17 02:05 01/18/17 08:02 01/18/17 10:06 Bedside Glucose 93mg/dL (70-220) 111mg/dL (70-220) 116mg/dL (70-220) 276mg/dL (70-220) H Test 01/18/17 12:02 01/18/17 13:31 01/18/17 13:58 01/18/17 14:46 Bedside Glucose 192mg/dL (70-220) 84mg/dL (70-220) 72mg/dL (70-220) 58mg/dL (70-220) L Test 01/18/17 15:40 01/18/17 17:23 01/18/17 20:13 01/19/17 02:04 Bedside Glucose 127mg/dL (70-220) 289mg/dL (70-220) H 137mg/dL (70-220) 145mg/dL (70-220) Test 01/19/17 07:53 01/19/17 10:18 01/19/17 11:46 01/19/17 13:59 Bedside Glucose 163mg/dL (70-220) 187mg/dL (70-220) 203mg/dL (70-220) 80mg/dL (70-220) Test 01/19/17 14:43 01/19/17 15:02 01/19/17 15:19 01/19/17 15:40 Bedside Glucose 46mg/dL (70-220) *L 67mg/dL (70-220) L 109mg/dL (70-220) 106mg/dL (70-220) Test 01/19/17 17:18 01/19/17 20:45 01/19/17 22:24 01/20/17 02:04 Bedside Glucose 79mg/dL (70-220) 460mg/dL (70-220) *H 394mg/dL (70-220) H 255mg/dL (70-220) H Test 01/20/17 08:10 01/20/17 10:30 01/20/17 11:43 01/20/17 13:44 Bedside Glucose 292mg/dL (70-220) H 271mg/dL (70-220) H 227mg/dL (70-220) H 91mg/dL (70-220) Test 01/20/17 17:05 01/20/17 17:26 01/20/17 17:47 Bedside Glucose 59mg/dL (70-220) L 80mg/dL (70-220) 143mg/dL (70-220) Results Result Diagram: 01/20/17 0533 01/20/17 0533 Results 24 hrs Laboratory Tests Test 01/19/17 20:45 01/19/17 22:24 01/20/17 02:04 01/20/17 05:33 Bedside Glucose 460 *H 394 H 255 H White Blood Count 5.7 Red Blood Count 3.77 L Hemoglobin 11.6 L Hematocrit 36.2 L Mean Corpuscular Volume 96.0 Mean Corpuscular Hemoglobin 30.8 Mean Corpuscular Hemoglobin Concent 32.0 Red Cell Distribution Width 15.9 H Platelet Count 263 Mean Platelet Volume 9.3 Neutrophils % 49.5 Lymphocytes % 26.0 Monocytes % 9.3 Eosinophils % 13.4 H Basophils % 1.4 Nucleated Red Blood Cells % 0.0 Neutrophils # 2.8 Lymphocytes # 1.5 Monocytes # 0.5 Eosinophils # 0.8 H Basophils # 0.1 Nucleated Red Blood Cells # 0.0 Sodium Level 139 Potassium Level 4.7 Chloride Level 98 Carbon Dioxide Level 29 Anion Gap 17 H Blood Urea Nitrogen 14 Creatinine 0.56 Glucose Level 324 #H Calcium Level 9.3 Test 01/20/17 08:10 01/20/17 10:30 01/20/17 11:43 01/20/17 13:44 Bedside Glucose 292 H 271 H 227 H 91 Test 01/20/17 17:05 01/20/17 17:26 01/20/17 17:47 Bedside Glucose 59 L 80 143 Medications Medications Current Medications Ondansetron HCl (Zofran Inj) 4 mg Q6H PRN IV NAUSEA AND/OR VOMITING; Start at 11:30 Acetaminophen (Tylenol Tab) 650 mg Q6H PRN PO PAIN LEVEL 1-3 OR FEVER; Start at 11:30 Acetaminophen (Tylenol Supp) 650 mg Q6H PRN [place] PAIN LEVEL 1-3 OR FEVER; Start 01/06/17 at 11:30 Aspirin (Halfprin) 81 mg DAILY PO Last administered on 01/20/17 08:33; Admin Dose 81 MG; Start 01/07/17 at 09:00 Duloxetine HCl (Cymbalta) 20 mg DAILY PO Last administered on 01/20/17 08:33; Admin Dose 20 MG; Start 01/07/17 at 09:00 Gabapentin (Neurontin) 300 mg TID PO Last administered on 01/20/17 12:11; Admin Dose 300 MG; Start 01/06/17 at 13:00 Metoprolol Tartrate (Lopressor) 12.5 mg BID PO ; Start 01/06/17 at 21:00; Status Future Hold Ticagrelor (Brilinta) 90 mg BID PO Last administered on 01/16/17 08:21; Admin Dose 90 MG; Start 01/06/17 at 21:00; Status Future Hold Diagnostic Test (Pha) (Accu-Chek) 1 ea 02 XX Last administered on 01/20/17 02: 11; Admin Dose 1 EA; Start 01/07/17 at 02:00 Furosemide (Lasix) 20 mg DAILY PO ; Start 01/07/17 at 09:00; Status Future Hold Bisacodyl (Dulcolax Supp) 10 mg DAILY PRN [place] CONSTIPATION; Start 01/06/17 at 11 :30 Guaifenesin (Robitussin Liquid Cup) 100 mg Q6H PRN PO COUGH Last administered on 01/08/17 07:54; Admin Dose 100 MG; Start 01/06/17 at 11:30 Levothyroxine Sodium (Synthroid) 112 mcg DAILY@06 PO Last administered on 05:26; Admin Dose 112 MCG; Start 01/07/17 at 06:00 Lisinopril (Zestril) 2.5 mg DAILY PO Last administered on 01/18/17 08:18; Admin Dose 2.5 MG; Start 01/07/17 at 09:00 Senna (Senokot) 2 tab HS PO Last administered on 01/19/17 21:07; Admin Dose 2 TAB; Start 01/06/17 at 21:00 Miscellaneous Information 1 ea NOTE XX ; Start 01/06/17 at 12:00 Glucose (Glutose) 15 gm Q15M PRN PO DECREASED GLUCOSE Last administered on 17:30; Admin Dose 15 GM; Start 01/06/17 at 12:00 Glucose (Glutose) 22.5 gm Q15M PRN PO DECREASED GLUCOSE Last administered on 03:34; Admin Dose 22.5 GM; Start 01/06/17 at 12:00 Dextrose (D50w Syringe) 25 ml Q15M PRN IV DECREASED GLUCOSE; Start 01/06/17 at 12:00 Dextrose (D50w Syringe) 50 ml Q15M PRN IV DECREASED GLUCOSE Last administered on 01/15/17 11:52; Admin Dose 50 ML; Start 01/06/17 at 12:00 Glucagon (Glucagen) 1 mg Q15M PRN IM DECREASED GLUCOSE; Start 01/06/17 at 12:00 Glucose (Glutose) 15 gm Q15M PRN BUCCAL DECREASED GLUCOSE Last administered on 01/10/17 07:07; Admin Dose 15 GM; Start 01/06/17 at 12:00 Atorvastatin Calcium (Lipitor) 40 mg HS PO Last administered on 01/19/17 21:07 ; Admin Dose 40 MG; Start 01/14/17 at 21:00 Lidocaine (Xylocaine 4% (Mpf)) 5 ml ONCE PRN HHN BREATHING TREATMENT Last administered on 01/15/17 09:38; Admin Dose 5 ML; Start 01/15/17 at 09:30 Alendronate Sodium (Fosamax) 70 mg We@0630 PO ; Start 01/21/17 at 06:30 Insulin Glargine (Lantus) 12 unit DAILY@08 SC ; Start 01/21/17 at 08:00 Polyethylene Glycol (Miralax) 17 gm DAILY PRN PO constipation; Start 01/20/17 at 18:30 Enoxaparin Sodium (Lovenox) 40 mg DAILY SC ; Start 01/21/17 at 09:00 DARYL MYERS MD Jan 20, 2017 20:04
[2017-01-20 20:08] VITALS: BP 120/55; RESP 18
[2017-01-20] MEDS ORDERED: INSULIN ASPART [NOVOLOG] 3 ML PEN SC ONE (20:30)
[2017-01-20] MEDS: SENNA TAB PO SCH (21:26)
[2017-01-20] MEDS: ATORVASTATIN 40 MG TAB PO SCH (21:27)
[2017-01-21] MEDS: ACCU-CHEK XX SCH ×4 (02:00→20:05)
[2017-01-21 02:54] VITALS: BP 101/60; RESP 18
[2017-01-21] MEDS: LEVOTHYROXINE 112 MCG TAB PO SCH (05:40)
[2017-01-21 05:58] LABS: BASOPHIL # 0.1 10^3/ul (0.0-0.1); BASOPHILS % 1.4 % (0.0-2.0); EOSINOPHILS # 0.7 10^3/ul (0.0-0.5); EOSINOPHILS % 12.3 % (0.0-7.0); HEMATOCRIT 35.7 % (37.0-47.0); HEMOGLOBIN 11.5 g/dl (12.0-16.0); LYMPHOCYTES # 1.4 10^3/ul (0.8-2.9); LYMPHOCYTES % 24.5 % (15.0-51.0); MEAN CORPUSCULAR HEMOGLOBIN 30.8 pg (29.0-33.0); MEAN CORPUSCULAR HGB CONC 32.2 g/dl (32.0-37.0); MEAN CORPUSCULAR VOLUME 95.7 fl (82.0-101.0); MEAN PLATELET VOLUME 9.6 fl (7.4-10.4); MONOCYTE # 0.5 10^3/ul (0.3-0.9); MONOCYTES % 9.2 % (0.0-11.0); NEUTROPHILS % 52.2 % (39.0-77.0); PLATELET COUNT 266 10^3/UL (140-415); RED BLOOD COUNT 3.73 10^6/ul (4.20-5.40); RED CELL DISTRIBUTION WIDTH 15.8 % (11.5-14.5); WHITE BLOOD COUNT 5.7 10^3/ul (4.8-10.8)
[2017-01-21 06:55] LABS: CALCIUM 9.3 mg/dl (8.4-10.2); CREATININE 0.59 mg/dl (0.44-1.00)
[2017-01-21] MEDS: ALENDRONATE 70 MG TAB PO SCH (07:00)
[2017-01-21 07:03] LABS: POTASSIUM 5.2 mmol/L (3.5-5.1)
[2017-01-21] MEDS ORDERED: INSULIN GLARGINE [LANtus] 3 ML PEN SC SCH (08:00)
[2017-01-21] MEDS: ASPIRIN (EC) 81 MG TAB PO SCH (08:00)
[2017-01-21] MEDS: DULOXETINE 20 MG CAP DR PO SCH (08:00)
[2017-01-21] MEDS: GABAPENTIN 300 MG CAP PO SCH ×3 (08:00→21:21)
[2017-01-21] MEDS: INSULIN ASPART [NOVOLOG] 3 ML PEN SC SCH ×5 (08:03→21:21)
[2017-01-21] MEDS: LISINOPRIL 5 MG TAB PO SCH (08:05)
[2017-01-21 08:37] VITALS: BP 103/53; RESP 20
[2017-01-21] MEDS: ENOXAPARIN 40 MG/0.4 ML SYG SC SCH (09:37)
[2017-01-21] MEDS ORDERED: INSULIN ASPART [NOVOLOG] 3 ML PEN SC SCH ×3 (12:00→18:05)
--- NOTE | 2017-01-21 13:31 | CONS ---
Date/Time of Note Date/Time of Note DATE: 01/21/17 TIME: 13:28 Assessment/Plan Assessment/Plan Chief Complaint/Hosp Course IMP: 1.NSTEMI-peak trop>60 Now dowtrended significantly s/p LHC with patent RCA stents and high grade disease of LAD/LCX with small caliber vessels and recc for CABG. 2.cardiomyopathy-LVEF 40-45 BY OSH echo. 25% by echo read here 3.Hypotension-borderline. Hold lasix as tolerated 4.resp failure s/p extubation requiring PRN BIPAP which has now improved and not requiring further at this time 5.anemia 6. AMS/encephalopathy 7. PNA-ongoing by chest CT 8. COPD 9. Hypothyroid 10.DM-labile BS 11.Neck mass? with dysphagia. Now s/p bronch with findings of subglottic mass. Now per ENT decreasing in size and thinks possibly secondary to extended intubation 12. carotid stenosis Recc: -Now transferred to med-surg -Holding BB/lasix and follow BP -Continue acei as tolerated only -Continue asa -Continue statin -Smoking cessation -Follow BS closely and adjust insulin therapy as necessary -Continue abx's and f/u cx data -Continue bronchodilators -Brilinita held in anticipation of surgery- ? CABG timing. Initially delayed due to mass. Will discuss with CT surgery again Problems: Consultation Date/Type/Reason Admit Date/Time Jan 06, 2017 at 10:49 Initial Consult Date 01/06/2017 Type of Consultation: cardiology Reason for Consultation nstemi Referring Provider: TANIYA OLMSTEAD Exam/Review of Systems Vital Signs Vitals Vital Signs Date Time Temp Pulse Resp B/P Pulse Ox O2 Delivery O2 Flow Rate FiO2 01/21/17 08:37 98.1 88 20 103/53 98 Intake and Output 01/20/17 01/20/17 01/21/17 15:00 23:00 07:00 Intake Total 1560 ml 480 ml Output Total 800 ml Balance 760 ml 480 ml Exam Review of Systems: CONSTITUTIONAL: No fevers, chills. PULMONARY: No sob CARDIOVASCULAR: No chest pain/palpitations GASTROINTESTINAL: No nausea/vomiting. GENITOURINARY: No hematuria/dysuria. MUSCULOSKELETAL: No myagias/arthalgias. PSYCHIATRIC: The patient denies depression. NEUROLOGIC: No weakness Constitutional: alert, oriented Psych: no complaints Head: normocephalic ENMT: mucosa pink and moist Neck: jvd (8 cm water), supple Cardiovascular: regular rate and rhythm Gastrointestinal: non-tender, soft Musculoskeletal: muscle tone (normal) Extremities: edema (none) 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: other (No focal deficits) Results Result Diagram: 01/21/17 0529 01/21/17 0529 Results 24 hrs Laboratory Tests Test 01/20/17 13:44 01/20/17 17:05 01/20/17 17:26 01/20/17 17:47 Bedside Glucose 91 59 L 80 143 Test 01/20/17 20:06 01/20/17 21:32 01/21/17 02:05 01/21/17 05:29 Bedside Glucose 389 H 346 H 349 H White Blood Count 5.7 Red Blood Count 3.73 L Hemoglobin 11.5 L Hematocrit 35.7 L Mean Corpuscular Volume 95.7 Mean Corpuscular Hemoglobin 30.8 Mean Corpuscular Hemoglobin Concent 32.2 Red Cell Distribution Width 15.8 H Platelet Count 266 Mean Platelet Volume 9.6 Neutrophils % 52.2 Lymphocytes % 24.5 Monocytes % 9.2 Eosinophils % 12.3 H Basophils % 1.4 Nucleated Red Blood Cells % 0.0 Neutrophils # 3.0 Lymphocytes # 1.4 Monocytes # 0.5 Eosinophils # 0.7 H Basophils # 0.1 Nucleated Red Blood Cells # 0.0 Sodium Level 136 Potassium Level 5.2 H Chloride Level 94 L Carbon Dioxide Level 30 Anion Gap 17 H Blood Urea Nitrogen 20 Creatinine 0.59 Glucose Level 457 *H Calcium Level 9.3 Test 01/21/17 07:38 01/21/17 10:14 01/21/17 12:13 Bedside Glucose 388 H 367 H 172 Medications Medications Current Medications Ondansetron HCl (Zofran Inj) 4 mg Q6H PRN IV NAUSEA AND/OR VOMITING; Start at 11:30 Acetaminophen (Tylenol Tab) 650 mg Q6H PRN PO PAIN LEVEL 1-3 OR FEVER; Start at 11:30 Acetaminophen (Tylenol Supp) 650 mg Q6H PRN [place] PAIN LEVEL 1-3 OR FEVER; Start 01/06/17 at 11:30 Aspirin (Halfprin) 81 mg DAILY PO Last administered on 01/21/17t 08:00; Admin Dose 81 MG; Start 01/07/17 at 09:00 Duloxetine HCl (Cymbalta) 20 mg DAILY PO Last administered on 01/21/17 08:00; Admin Dose 20 MG; Start 01/07/17 at 09:00 Gabapentin (Neurontin) 300 mg TID PO Last administered on 01/21/17 12:18; Admin Dose 300 MG; Start 01/06/17 at 13:00 Metoprolol Tartrate (Lopressor) 12.5 mg BID PO ; Start 01/06/17 at 21:00; Status Future Hold Ticagrelor (Brilinta) 90 mg BID PO Last administered on 01/16/17 08:21; Admin Dose 90 MG; Start 01/06/17 at 21:00; Status Future Hold Diagnostic Test (Pha) (Accu-Chek) 1 ea 02 XX Last administered on 01/21/17 02: 00; Admin Dose 1 EA; Start 01/07/17 at 02:00 Furosemide (Lasix) 20 mg DAILY PO ; Start 01/07/17 at 09:00; Status Future Hold Bisacodyl (Dulcolax Supp) 10 mg DAILY PRN [place] CONSTIPATION; Start 01/06/17 at 11 :30 Guaifenesin (Robitussin Liquid Cup) 100 mg Q6H PRN PO COUGH Last administered on 01/08/17 07:54; Admin Dose 100 MG; Start 01/06/17 at 11:30 Levothyroxine Sodium (Synthroid) 112 mcg DAILY@06 PO Last administered on 05:40; Admin Dose 112 MCG; Start 01/07/17 at 06:00 Lisinopril (Zestril) 2.5 mg DAILY PO Last administered on 01/18/17 08:18; Admin Dose 2.5 MG; Start 01/07/17 at 09:00 Senna (Senokot) 2 tab HS PO Last administered on 01/20/17 21:26; Admin Dose 2 TAB; Start 01/06/17 at 21:00 Miscellaneous Information 1 ea NOTE XX ; Start 01/06/17 at 12:00 Glucose (Glutose) 15 gm Q15M PRN PO DECREASED GLUCOSE Last administered on 17:30; Admin Dose 15 GM; Start 01/06/17 at 12:00 Glucose (Glutose) 22.5 gm Q15M PRN PO DECREASED GLUCOSE Last administered on 03:34; Admin Dose 22.5 GM; Start 01/06/17 at 12:00 Dextrose (D50w Syringe) 25 ml Q15M PRN IV DECREASED GLUCOSE; Start 01/06/17 at 12:00 Dextrose (D50w Syringe) 50 ml Q15M PRN IV DECREASED GLUCOSE Last administered on 01/15/17 11:52; Admin Dose 50 ML; Start 01/06/17 at 12:00 Glucagon (Glucagen) 1 mg Q15M PRN IM DECREASED GLUCOSE; Start 01/06/17 at 12:00 Glucose (Glutose) 15 gm Q15M PRN BUCCAL DECREASED GLUCOSE Last administered on 01/10/17 07:07; Admin Dose 15 GM; Start 01/06/17 at 12:00 Atorvastatin Calcium (Lipitor) 40 mg HS PO Last administered on 01/20/17 21:27 ; Admin Dose 40 MG; Start 01/14/17 at 21:00 Lidocaine (Xylocaine 4% (Mpf)) 5 ml ONCE PRN HHN BREATHING TREATMENT Last administered on 01/15/17 09:38; Admin Dose 5 ML; Start 01/15/17 at 09:30 Alendronate Sodium (Fosamax) 70 mg We@0630 PO Last administered on 01/21/17 07: 00; Admin Dose 70 MG; Start 01/21/17 at 06:30 Insulin Glargine (Lantus) 12 unit DAILY@08 SC Last administered on 01/21/17 08: 01; Admin Dose 12 UNIT; Start 01/21/17 at 08:00 Polyethylene Glycol (Miralax) 17 gm DAILY PRN PO constipation; Start 01/20/17 at 18:30 Enoxaparin Sodium (Lovenox) 40 mg DAILY SC Last administered on 01/21/17 09:37 ; Admin Dose 40 MG; Start 01/21/17 at 09:00 RHONDA PENA Jan 21, 2017 13:31
[2017-01-21 14:31] VITALS: BP 99/51; RESP 18
--- NOTE | 2017-01-21 17:36 | PN ---
Date/Time of Note Date/Time of Note DATE: 01/21/17 TIME: 17:35 Assessment/Plan VTE Prophylaxis VTE Prophylaxis Intervention: SCD's Lines/Catheters IV C[facility]ter Type [facility]from [facility] Saline Lock Urinary Cath still in place: No Assessment/Plan Assessment/Plan 56 yo F with poorly controlled DM2 admitted for NSTEMI in setting DKA. Found to have multivessel CAD. Awaiting CABG. Also with incidental finding of L sided subglottic lesion. Unclear to me and patient timing of her procedure. 1. multivessel CAD, recent NSTEMI, ICM with EF <25%. CABG pending follow-up CTS recommendations, planning on possible bypass -cont current cardiac meds-->bb/lasix on hold for prior episodes of orthostasis earlier this admission Brilinta on hold given possible impending surgeries 2. L subglottic lesion:ENT states 2/2 prolonged intubation and does not require further w/u 3. Severe obstructive and restrictive pulmonary disease. -Continue bronchodilators. 4. DM with wide BG fluctuations -endo on consult for aid with insulin management 5. Hypothyroidism. -Continue Synthroid. 6. Chronic anemia. H&H stable. Will monitor. DVT prophylaxis: LMWH I personally texted CT surgeon requesting update re CABG timing on patient's behald Subjective 24 Hr Interval Summary Free Text/Dictation Pt still wondering when/if CABG will be Exam/Review of Systems Vital Signs Vitals Vital Signs Date Time Temp Pulse Resp B/P Pulse Ox O2 Delivery O2 Flow Rate FiO2 01/21/17 14:31 98.7 80 18 99/51 98 Intake and Output 01/20/17 01/20/17 01/21/17 15:00 23:00 07:00 Intake Total 1560 ml 480 ml Output Total 800 ml Balance 760 ml 480 ml Exam nad no mrg lungs clear abd soft no rashes Results Result Diagram: 01/21/17 0529 01/21/1729 Results 24 hrs Laboratory Tests Test 01/20/17 17:47 01/20/17 20:06 01/20/17 21:32 01/21/17 02:05 Bedside Glucose 143 389 H 346 H 349 H Test 01/21/17 05:29 01/21/17 07:38 01/21/17 10:14 01/21/17 12:13 White Blood Count 5.7 Red Blood Count 3.73 L Hemoglobin 11.5 L Hematocrit 35.7 L Mean Corpuscular Volume 95.7 Mean Corpuscular Hemoglobin 30.8 Mean Corpuscular Hemoglobin Concent 32.2 Red Cell Distribution Width 15.8 H Platelet Count 266 Mean Platelet Volume 9.6 Neutrophils % 52.2 Lymphocytes % 24.5 Monocytes % 9.2 Eosinophils % 12.3 H Basophils % 1.4 Nucleated Red Blood Cells % 0.0 Neutrophils # 3.0 Lymphocytes # 1.4 Monocytes # 0.5 Eosinophils # 0.7 H Basophils # 0.1 Nucleated Red Blood Cells # 0.0 Sodium Level 136 Potassium Level 5.2 H Chloride Level 94 L Carbon Dioxide Level 30 Anion Gap 17 H Blood Urea Nitrogen 20 Creatinine 0.59 Glucose Level 457 *H Calcium Level 9.3 Bedside Glucose 388 H 367 H 172 Test 01/21/17 14:43 01/21/17 17:12 Bedside Glucose 147 88 Medications Medications Current Medications Ondansetron HCl (Zofran Inj) 4 mg Q6H PRN IV NAUSEA AND/OR VOMITING; Start at 11:30 Acetaminophen (Tylenol Tab) 650 mg Q6H PRN PO PAIN LEVEL 1-3 OR FEVER; Start at 11:30 Acetaminophen (Tylenol Supp) 650 mg Q6H PRN [place] PAIN LEVEL 1-3 OR FEVER; Start 01/06/17 at 11:30 Aspirin (Halfprin) 81 mg DAILY PO Last administered on 01/21/17 08:00; Admin Dose 81 MG; Start 01/07/17 at 09:00 Duloxetine HCl (Cymbalta) 20 mg DAILY PO Last administered on 01/21/17 08:00; Admin Dose 20 MG; Start 01/07/17 at 09:00 Gabapentin (Neurontin) 300 mg TID PO Last administered on 01/21/17 12:18; Admin Dose 300 MG; Start 01/06/17 at 13:00 Metoprolol Tartrate (Lopressor) 12.5 mg BID PO ; Start 01/06/17 at 21:00; Status Future Hold Ticagrelor (Brilinta) 90 mg BID PO Last administered on 01/16/17 08:21; Admin Dose 90 MG; Start 01/06/17 at 21:00; Status Future Hold Diagnostic Test (Pha) (Accu-Chek) XX Last administered on 01/21/17 02: 00; Admin Dose 1 EA; Start 01/07/17 at 02:00 Furosemide (Lasix) 20 mg DAILY PO ; Start 01/07/17 at 09:00; Status Future Hold Bisacodyl (Dulcolax Supp) 10 mg DAILY PRN [place] CONSTIPATION; Start 01/06/17 at 11 :30 Guaifenesin (Robitussin Liquid Cup) 100 mg Q6H PRN PO COUGH Last administered on 01/08/17 07:54; Admin Dose 100 MG; Start 01/06/17 at 11:30 Levothyroxine Sodium (Synthroid) 112 mcg DAILY@06 PO Last administered on 05:40; Admin Dose 112 MCG; Start 01/07/17 at 06:00 Lisinopril (Zestril) 2.5 mg DAILY PO Last administered on 01/18/17 08:18; Admin Dose 2.5 MG; Start 01/07/17 at 09:00 Senna (Senokot) 2 tab HS PO Last administered on 01/20/17 21:26; Admin Dose 2 TAB; Start 01/06/17 at 21:00 Miscellaneous Information 1 ea NOTE XX ; Start 01/06/17 at 12:00 Glucose (Glutose) 15 gm Q15M PRN PO DECREASED GLUCOSE Last administered on 17:30; Admin Dose 15 GM; Start 01/06/17 at 12:00 Glucose (Glutose) 22.5 gm Q15M PRN PO DECREASED GLUCOSE Last administered on 03:34; Admin Dose 22.5 GM; Start 01/06/17 at 12:00 Dextrose (D50w Syringe) 25 ml Q15M PRN IV DECREASED GLUCOSE; Start 01/06/17 at 12:00 Dextrose (D50w Syringe) 50 ml Q15M PRN IV DECREASED GLUCOSE Last administered on 01/15/17 11:52; Admin Dose 50 ML; Start 01/06/17 at 12:00 Glucagon (Glucagen) 1 mg Q15M PRN IM DECREASED GLUCOSE; Start 01/06/17 at 12:00 Glucose (Glutose) 15 gm Q15M PRN BUCCAL DECREASED GLUCOSE Last administered on 01/10/17 07:07; Admin Dose 15 GM; Start 01/06/17 at 12:00 Atorvastatin Calcium (Lipitor) 40 mg HS PO Last administered on 01/20/17 21:27 ; Admin Dose 40 MG; Start 01/14/17 at 21:00 Lidocaine (Xylocaine 4% (Mpf)) 5 ml ONCE PRN HHN BREATHING TREATMENT Last administered on 01/15/17 09:38; Admin Dose 5 ML; Start 01/15/17 at 09:30 Alendronate Sodium (Fosamax) 70 mg We@0630 PO Last administered on 01/21/17 07: 00; Admin Dose 70 MG; Start 01/21/17 at 06:30 Insulin Glargine (Lantus) 12 unit DAILY@08 SC Last administered on 01/21/17 08: 01; Admin Dose 12 UNIT; Start 01/21/17 at 08:00 Polyethylene Glycol (Miralax) 17 gm DAILY PRN PO constipation; Start 01/20/17 at 18:30 Enoxaparin Sodium (Lovenox) 40 mg DAILY SC Last administered on 01/21/17 09:37 ; Admin Dose 40 MG; Start 01/21/17 at 09:00 ROBEL PETTY MD Jan 21, 2017 17:36
[2017-01-21 19:35] VITALS: BP 103/51; RESP 20
[2017-01-21] MEDS: SENNA TAB PO SCH (21:21)
[2017-01-21] MEDS: ATORVASTATIN 40 MG TAB PO SCH (21:21)
--- NOTE | 2017-01-21 22:25 | PN ---
Date/Time of Note Date/Time of Note DATE: 01/21/17 TIME: 22:23 Assessment/Plan Lines/Catheters IV Catheter Type (from Nrs): Saline Lock [place] in Place (from Nrsg): No Assessment/Plan Chief Complaint/Hosp Course Patient with coronary artery disease multiple other medical problem Carotid dupplex Occlusion of the right internal carotid artery just beyond its origin due to large plaque burden as seen on the prior MRI. Small plaques involving the visualized portion of the left internal carotid artery without evidence of flow acceleration to suggest a hemodynamically significant stenosis; less than 50% ENT does not want to do any diagnostic or therapeutic procedure for tracheal mass at this time Patient is at high risk for undergoing coronary artery bypass graft I had a long discussion with her Her risks are especially high because of the carotid occlusion and cardiomyopathy I would discuss options with Dr. Adames and Dr. Sanz Problems: Subjective 24 Hr Interval Summary Constitutional: improved Pain Control: mild Exam/Review of Systems Vital Signs Vitals Vital Signs Date Time Temp Pulse Resp B/P Pulse Ox O2 Delivery O2 Flow Rate FiO2 01/21/17 14:31 98.7 80 18 99/51 98 Intake and Output 01/20/17 01/20/17 01/21/17 15:00 23:00 07:00 Intake Total 1560 ml 480 ml Output Total 800 ml Balance 760 ml 480 ml Exam ENMT: mucosa pink and moist, nl external ears & nose, nl lips & teeth, nl nasal mucosa & septum Neck: non-tender, supple Respiratory: clear to auscultation, normal air movement Gastrointestinal: nl liver, spleen, non-tender, soft Results Result Diagram: 01/21/17 0529 01/21/17 0529 CHELA ALVARENGA MD Jan 21, 2017 22:25
[2017-01-22] MEDS: ACCU-CHEK XX SCH ×4 (02:00→20:05)
[2017-01-22 02:05] VITALS: BP 101/49; RESP 18
[2017-01-22 05:51] LABS: BASOPHIL # 0.1 10^3/ul (0.0-0.1); BASOPHILS % 1.5 % (0.0-2.0); EOSINOPHILS # 0.8 10^3/ul (0.0-0.5); EOSINOPHILS % 11.6 % (0.0-7.0); HEMATOCRIT 36.1 % (37.0-47.0); HEMOGLOBIN 11.8 g/dl (12.0-16.0); LYMPHOCYTES # 1.4 10^3/ul (0.8-2.9); LYMPHOCYTES % 20.2 % (15.0-51.0); MEAN CORPUSCULAR HEMOGLOBIN 31.2 pg (29.0-33.0); MEAN CORPUSCULAR HGB CONC 32.7 g/dl (32.0-37.0); MEAN CORPUSCULAR VOLUME 95.5 fl (82.0-101.0); MEAN PLATELET VOLUME 9.2 fl (7.4-10.4); MONOCYTE # 0.6 10^3/ul (0.3-0.9); MONOCYTES % 8.5 % (0.0-11.0); NEUTROPHILS % 57.9 % (39.0-77.0); PLATELET COUNT 274 10^3/UL (140-415); RED BLOOD COUNT 3.78 10^6/ul (4.20-5.40); RED CELL DISTRIBUTION WIDTH 15.8 % (11.5-14.5); WHITE BLOOD COUNT 6.8 10^3/ul (4.8-10.8)
[2017-01-22] MEDS: LEVOTHYROXINE 112 MCG TAB PO SCH (06:06)
[2017-01-22 06:08] LABS: CALCIUM 9.2 mg/dl (8.4-10.2); CREATININE 0.49 mg/dl (0.44-1.00); POTASSIUM 4.6 mmol/L (3.5-5.1)
[2017-01-22 08:01] VITALS: BP 122/56; RESP 18
[2017-01-22] MEDS: INSULIN GLARGINE [LANtus] 3 ML PEN SC SCH (08:23)
[2017-01-22] MEDS: INSULIN ASPART [NOVOLOG] 3 ML PEN SC SCH ×7 (08:25→21:00)
[2017-01-22] MEDS: LISINOPRIL 5 MG TAB PO SCH (09:00)
[2017-01-22] MEDS: ENOXAPARIN 40 MG/0.4 ML SYG SC SCH (09:00)
[2017-01-22] MEDS: ASPIRIN (EC) 81 MG TAB PO SCH (09:44)
[2017-01-22] MEDS: GABAPENTIN 300 MG CAP PO SCH ×3 (09:44→21:34)
[2017-01-22] MEDS: DULOXETINE 20 MG CAP DR PO SCH (09:44)
--- NOTE | 2017-01-22 13:46 | CONS ---
Date/Time of Note Date/Time of Note DATE: 01/21/17 TIME: 1825, Late Entry Assessment/Plan Assessment/Plan Problems: (1) Type 1 diabetes mellitus with diabetic polyneuropathy Status: Chronic Comment: Due to an accident in ordering, Lantus was moved from hs to am dose last night to this am. This has resulted in profound fasting hyperglycemia this am. Pt. has recovered w/ significant improvement in her blood glucose by afternoon and evening. Will reduce lunch and dinner insulin again from 6 to 5 units because pt. now 88 mg/dL at dinner. Will reevaluate glucose levels tomorrow. Consultation Date/Type/Reason Admit Date/Time Jan 06, 2017 at 10:49 Initial Consult Date 01/14/17 Type of Consultation: Endocrinology Reason for Consultation T1DM OOC Referring Provider: TANIYA OLMSTEAD 24 HR Interval Summary Constitutional: no complaints Detailed Summary Respiratory: no complaints Cardiovascular: no complaints Gastrointestinal: no complaints Genitourinary: no complaints Musculoskeletal: no complaints Neurologic: no complaints Additional Comments upset because she is stuck in hospital and plan continues to change without definitive action Exam/Review of Systems Vital Signs Vitals VS - Last 72 Hours, by Label Date Time Temp Pulse Resp B/P Pulse Ox O2 Delivery O2 Flow Rate FiO2 01/22/17 08:01 97.3 72 18 122/56 100 01/22/17 02:05 98.2 75 18 101/49 96 01/21/17 19:35 98.4 85 20 103/51 98 01/21/17 14:31 98.7 80 18 99/51 98 01/21/17 08:37 98.1 88 20 103/53 98 01/21/17 02:54 98.2 84 18 101/60 95 01/20/17 20:08 98.2 88 18 120/55 95 01/20/17 14:35 98.3 89 20 100/52 98 01/20/17 08:10 98.4 87 18 103/56 98 01/20/17 02:48 98.0 81 20 102/54 96 01/19/17 20:00 98.3 83 18 119/57 99 01/19/17 14:00 98.8 95 16 103/54 97 Exam Constitutional: alert, oriented, well developed Respiratory: clear to auscultation, normal air movement Cardiovascular: nl pulses, regular rate and rhythm, No edema, No murmurs/extra sounds, No rub Gastrointestinal: bowel sounds, nl liver, spleen, non-tender, soft, No mass, No rebound or guarding Musculoskeletal: nl extremities to inspection Extremities: normal pulses, No clubbing, No cyanosis, No edema 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: 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 WIRER II-XII intact, nl mental status, nl speech, nl strength Additional Comments Bedside Glucose - 72 Hours Test 01/19/17 13:59 01/19/17 14:43 01/19/17 15:02 01/19/17 15:19 Bedside Glucose 80mg/dL (70-220) 46mg/dL (70-220) *L 67mg/dL (70-220) L 109mg/dL (70-220) Test 01/19/17 15:40 01/19/17 17:18 01/19/17 20:45 01/19/17 22:24 Bedside Glucose 106mg/dL (70-220) 79mg/dL (70-220) 460mg/dL (70-220) *H 394mg/dL (70-220) H Test 01/20/17 02:04 01/20/17 08:10 01/20/17 10:30 01/20/17 11:43 Bedside Glucose 255mg/dL (70-220) H 292mg/dL (70-220) H 271mg/dL (70-220) H 227mg/dL (70-220) H Test 01/20/17 13:44 01/20/17 17:05 01/20/17 17:26 01/20/17 17:47 Bedside Glucose 91mg/dL (70-220) 59mg/dL (70-220) L 80mg/dL (70-220) 143mg/dL (70-220) Test 01/20/17 20:06 01/20/17 21:32 01/21/17 02:05 01/21/17 07:38 Bedside Glucose 389mg/dL (70-220) H 346mg/dL (70-220) H 349mg/dL (70-220) H 388mg/dL (70-220) H Test 01/21/17 10:14 01/21/17 12:13 01/21/17 14:43 01/21/17 17:12 Bedside Glucose 367mg/dL (70-220) H 172mg/dL (70-220) 147mg/dL (70-220) 88mg/dL (70-220) Test 01/21/17 20:02 01/21/17 21:19 01/22/17 02:14 01/22/17 07:04 Bedside Glucose 255mg/dL (70-220) H 205mg/dL (70-220) 316mg/dL (70-220) H 376mg/dL (70-220) H Test 01/22/17 07:06 01/22/17 08:04 01/22/17 10:51 01/22/17 12:10 Bedside Glucose 408mg/dL (70-220) *H 385mg/dL (70-220) H 250mg/dL (70-220) H 212mg/dL (70-220) Results Result Diagram: 01/22/17 0535 01/22/17 0535 Results 24 hrs Laboratory Tests Test 01/21/17 14:43 01/21/17 17:12 01/21/17 20:02 01/21/17 21:19 Bedside Glucose 147 88 255 H 205 Test 01/22/17 02:14 01/22/17 05:35 01/22/17 07:04 01/22/17 07:06 Bedside Glucose 316 H 376 H 408 *H White Blood Count 6.8 Red Blood Count 3.78 L Hemoglobin 11.8 L Hematocrit 36.1 L Mean Corpuscular Volume 95.5 Mean Corpuscular Hemoglobin 31.2 Mean Corpuscular Hemoglobin Concent 32.7 Red Cell Distribution Width 15.8 H Platelet Count 274 Mean Platelet Volume 9.2 Neutrophils % 57.9 Lymphocytes % 20.2 Monocytes % 8.5 Eosinophils % 11.6 H Basophils % 1.5 Nucleated Red Blood Cells % 0.0 Neutrophils # 4.0 Lymphocytes # 1.4 Monocytes # 0.6 Eosinophils # 0.8 H Basophils # 0.1 Nucleated Red Blood Cells # 0.0 Sodium Level 138 Potassium Level 4.6 Chloride Level 98 Carbon Dioxide Level 27 Anion Gap 18 H Blood Urea Nitrogen 19 Creatinine 0.49 Glucose Level 433 *H Calcium Level 9.2 Test 01/22/17 08:04 01/22/17 10:51 01/22/17 12:10 Bedside Glucose 385 H 250 H 212 Medications Medications Current Medications Ondansetron HCl (Zofran Inj) 4 mg Q6H PRN IV NAUSEA AND/OR VOMITING; Start at 11:30 Acetaminophen (Tylenol Tab) 650 mg Q6H PRN PO PAIN LEVEL 1-3 OR FEVER; Start at 11:30 Acetaminophen (Tylenol Supp) 650 mg Q6H PRN [place] PAIN LEVEL 1-3 OR FEVER; Start 01/06/17 at 11:30 Aspirin (Halfprin) 81 mg DAILY PO Last administered on 01/22/17 09:44; Admin Dose 81 MG; Start 01/07/17 at 09:00 Duloxetine HCl (Cymbalta) 20 mg DAILY PO Last administered on 01/22/17 09:44; Admin Dose 20 MG; Start 01/07/17 at 09:00 Gabapentin (Neurontin) 300 mg TID PO Last administered on 01/22/17 12:10; Admin Dose 300 MG; Start 01/06/17 at 13:00 Metoprolol Tartrate (Lopressor) 12.5 mg BID PO ; Start 01/06/17 at 21:00; Status Future Hold Ticagrelor (Brilinta) 90 mg BID PO Last administered on 01/16/17 08:21; Admin Dose 90 MG; Start 01/06/17 at 21:00; Status Future Hold Diagnostic Test (Pha) (Accu-Chek) 1 ea 02 XX Last administered on 01/21/17 02: 00; Admin Dose 1 EA; Start 01/07/17 at 02:00 Furosemide (Lasix) 20 mg DAILY PO ; Start 01/07/17 at 09:00; Status Future Hold Bisacodyl (Dulcolax Supp) 10 mg DAILY PRN [place] CONSTIPATION; Start 01/06/17 at 11 :30 Guaifenesin (Robitussin Liquid Cup) 100 mg Q6H PRN PO COUGH Last administered on 01/08/17 07:54; Admin Dose 100 MG; Start 01/06/17 at 11:30 Levothyroxine Sodium (Synthroid) 112 mcg DAILY@06 PO Last administered on 06:06; Admin Dose 112 MCG; Start 01/07/17 at 06:00 Lisinopril (Zestril) 2.5 mg DAILY PO Last administered on 01/18/17 08:18; Admin Dose 2.5 MG; Start 01/07/17 at 09:00 Senna (Senokot) 2 tab HS PO Last administered on 01/21/17 21:21; Admin Dose 2 TAB; Start 01/06/17 at 21:00 Miscellaneous Information 1 ea NOTE XX ; Start 01/06/17 at 12:00 Glucose (Glutose) 15 gm Q15M PRN PO DECREASED GLUCOSE Last administered on 17:30; Admin Dose 15 GM; Start 01/06/17 at 12:00 Glucose (Glutose) 22.5 gm Q15M PRN PO DECREASED GLUCOSE Last administered on 03:34; Admin Dose 22.5 GM; Start 01/06/17 at 12:00 Dextrose (D50w Syringe) 25 ml Q15M PRN IV DECREASED GLUCOSE; Start 01/06/17 at 12:00 Dextrose (D50w Syringe) 50 ml Q15M PRN IV DECREASED GLUCOSE Last administered on 01/15/17 11:52; Admin Dose 50 ML; Start 01/06/17 at 12:00 Glucagon (Glucagen) 1 mg Q15M PRN IM DECREASED GLUCOSE; Start 01/06/17 at 12:00 Glucose (Glutose) 15 gm Q15M PRN BUCCAL DECREASED GLUCOSE Last administered on 01/10/17 07:07; Admin Dose 15 GM; Start 01/06/17 at 12:00 Atorvastatin Calcium (Lipitor) 40 mg HS PO Last administered on 01/21/17 21:21 ; Admin Dose 40 MG; Start 01/14/17 at 21:00 Lidocaine (Xylocaine 4% (Mpf)) 5 ml ONCE PRN HHN BREATHING TREATMENT Last administered on 01/15/17 09:38; Admin Dose 5 ML; Start 01/15/17 at 09:30 Alendronate Sodium (Fosamax) 70 mg We@0630 PO Last administered on 01/21/17 07: 00; Admin Dose 70 MG; Start 01/21/17 at 06:30 Polyethylene Glycol (Miralax) 17 gm DAILY PRN PO constipation; Start 01/20/17 at 18:30 Enoxaparin Sodium (Lovenox) 40 mg DAILY SC Last administered on 01/21/17 09:37 ; Admin Dose 40 MG; Start 01/21/17 at 09:00 Insulin Glargine (Lantus) 13 unit DAILY@08 SC Last administered on 01/22/17t 08 :23; Admin Dose 13 UNIT; Start 01/22/17 at 08:00 DARYL MYERS MD Jan 22, 2017 13:30
[2017-01-22 14:43] VITALS: BP 110/54; RESP 16
--- NOTE | 2017-01-22 15:27 | PN ---
Date/Time of Note Date/Time of Note DATE: 01/22/17 TIME: 15:26 Assessment/Plan VTE Prophylaxis VTE Prophylaxis Intervention: SCD's Lines/Catheters IV Catheter Type (from Nrs): Saline Lock Urinary Cath still in place: No Assessment/Plan Assessment/Plan 56 yo F with poorly controlled DM2 admitted for NSTEMI in setting DKA. Found to have multivessel CAD. Awaiting CABG. Also with incidental finding of L sided subglottic lesion, likely 2/2 prolonged intubation and not in need of additional w/u per ENT 1. multivessel CAD, recent NSTEMI, ICM with EF <25%. CABG pending -cont current cardiac meds-->bb/lasix on hold for prior episodes of orthostasis earlier this admission Brilinta on hold given possible impending surgeries -personally spoke to surgeon today. tentative plan for thursday. pt is high risk for this procedure. and he requested a repeat TTE which I ordered 2. L subglottic lesion:ENT states 2/2 prolonged intubation and does not require further w/u 3. Severe obstructive and restrictive pulmonary disease. -Continue bronchodilators. 4. DM with wide BG fluctuations -endo on consult for aid with insulin management 5. Hypothyroidism. -Continue Synthroid. 6. Chronic anemia. H&H stable. Will monitor. DVT prophylaxis: LMWH Subjective 24 Hr Interval Summary Free Text/Dictation Pt still wondering if/when CABG will occur Exam/Review of Systems Vital Signs Vitals Vital Signs Date Time Temp Pulse Resp B/P Pulse Ox O2 Delivery O2 Flow Rate FiO2 01/22/17 14:43 98.2 85 16 110/54 97 Intake and Output 01/21/17 01/21/17 01/22/17 15:00 23:00 07:00 Intake Total 940 ml 220 ml Output Total 1200 ml 400 ml Balance -260 ml -180 ml Exam nad, pleasant, sitting up in bed no mrg lungs clear abd soft no rashes Results Result Diagram: 01/22/17 0535 01/22/17 0535 Results 24 hrs Laboratory Tests Test 01/21/17 17:12 01/21/17 20:02 01/21/17 21:19 01/22/17 02:14 Bedside Glucose 88 255 H 205 316 H Test 01/22/17 05:35 01/22/17 07:04 01/22/17 07:06 01/22/17 08:04 White Blood Count 6.8 Red Blood Count 3.78 L Hemoglobin 11.8 L Hematocrit 36.1 L Mean Corpuscular Volume 95.5 Mean Corpuscular Hemoglobin 31.2 Mean Corpuscular Hemoglobin Concent 32.7 Red Cell Distribution Width 15.8 H Platelet Count 274 Mean Platelet Volume 9.2 Neutrophils % 57.9 Lymphocytes % 20.2 Monocytes % 8.5 Eosinophils % 11.6 H Basophils % 1.5 Nucleated Red Blood Cells % 0.0 Neutrophils # 4.0 Lymphocytes # 1.4 Monocytes # 0.6 Eosinophils # 0.8 H Basophils # 0.1 Nucleated Red Blood Cells # 0.0 Sodium Level 138 Potassium Level 4.6 Chloride Level 98 Carbon Dioxide Level 27 Anion Gap 18 H Blood Urea Nitrogen 19 Creatinine 0.49 Glucose Level 433 *H Calcium Level 9.2 Bedside Glucose 376 H 408 *H 385 H Test 01/22/17 10:51 01/22/17 12:10 01/22/17 15:16 Bedside Glucose 250 H 212 187 Medications Medications Current Medications Ondansetron HCl (Zofran Inj) 4 mg Q6H PRN IV NAUSEA AND/OR VOMITING; Start at 11:30 Acetaminophen (Tylenol Tab) 650 mg Q6H PRN PO PAIN LEVEL 1-3 OR FEVER; Start at 11:30 Acetaminophen (Tylenol Supp) 650 mg Q6H PRN [place] PAIN LEVEL 1-3 OR FEVER; Start 01/06/17 at 11:30 Aspirin (Halfprin) 81 mg DAILY PO Last administered on 01/22/17 09:44; Admin Dose 81 MG; Start 01/07/17 at 09:00 Duloxetine HCl (Cymbalta) 20 mg DAILY PO Last administered on 01/22/17 09:44; Admin Dose 20 MG; Start 01/07/17 at 09:00 Gabapentin (Neurontin) 300 mg TID PO Last administered on 01/22/17 12:10; Admin Dose 300 MG; Start 01/06/17 at 13:00 Metoprolol Tartrate (Lopressor) 12.5 mg BID PO ; Start 01/06/17 at 21:00; Status Future Hold Ticagrelor (Brilinta) 90 mg BID PO Last administered on 01/16/17 08:21; Admin Dose 90 MG; Start 01/06/17 at 21:00; Status Future Hold Diagnostic Test (Pha) (Accu-Chek) 1 ea 02 XX Last administered on 01/21/17 02: 00; Admin Dose 1 EA; Start 01/07/17 at 02:00 Furosemide (Lasix) 20 mg DAILY PO ; Start 01/07/17 at 09:00; Status Future Hold Bisacodyl (Dulcolax Supp) 10 mg DAILY PRN [place] CONSTIPATION; Start 01/06/17 at 11 :30 Guaifenesin (Robitussin Liquid Cup) 100 mg Q6H PRN PO COUGH Last administered on 01/08/17 07:54; Admin Dose 100 MG; Start 01/06/17 at 11:30 Levothyroxine Sodium (Synthroid) 112 mcg DAILY@06 PO Last administered on 06:06; Admin Dose 112 MCG; Start 01/07/17 at 06:00 Lisinopril (Zestril) 2.5 mg DAILY PO Last administered on 01/18/17 08:18; Admin Dose 2.5 MG; Start 01/07/17 at 09:00 Senna (Senokot) 2 tab HS PO Last administered on 01/21/17 21:21; Admin Dose 2 TAB; Start 01/06/17 at 21:00 Miscellaneous Information 1 ea NOTE XX ; Start 01/06/17 at 12:00 Glucose (Glutose) 15 gm Q15M PRN PO DECREASED GLUCOSE Last administered on 17:30; Admin Dose 15 GM; Start 01/06/17 at 12:00 Glucose (Glutose) 22.5 gm Q15M PRN PO DECREASED GLUCOSE Last administered on 03:34; Admin Dose 22.5 GM; Start 01/06/17 at 12:00 Dextrose (D50w Syringe) 25 ml Q15M PRN IV DECREASED GLUCOSE; Start 01/06/17 at 12:00 Dextrose (D50w Syringe) 50 ml Q15M PRN IV DECREASED GLUCOSE Last administered on 01/15/17 11:52; Admin Dose 50 ML; Start 01/06/17 at 12:00 Glucagon (Glucagen) 1 mg Q15M PRN IM DECREASED GLUCOSE; Start 01/06/17 at 12:00 Glucose (Glutose) 15 gm Q15M PRN BUCCAL DECREASED GLUCOSE Last administered on 01/10/17 07:07; Admin Dose 15 GM; Start 01/06/17 at 12:00 Atorvastatin Calcium (Lipitor) 40 mg HS PO Last administered on 01/21/17 21:21 ; Admin Dose 40 MG; Start 01/14/17 at 21:00 Lidocaine (Xylocaine 4% (Mpf)) 5 ml ONCE PRN HHN BREATHING TREATMENT Last administered on 01/15/17 09:38; Admin Dose 5 ML; Start 01/15/17 at 09:30 Alendronate Sodium (Fosamax) 70 mg We@0630 PO Last administered on 01/21/17 07: 00; Admin Dose 70 MG; Start 01/21/17 at 06:30 Polyethylene Glycol (Miralax) 17 gm DAILY PRN PO constipation; Start 01/20/17 at 18:30 Enoxaparin Sodium (Lovenox) 40 mg DAILY SC Last administered on 01/21/17 09:37 ; Admin Dose 40 MG; Start 01/21/17 at 09:00 Insulin Glargine (Lantus) 13 unit DAILY@08 SC Last administered on 01/22/17 08 :23; Admin Dose 13 UNIT; Start 01/22/17 at 08:00 ROBEL PETTY MD Jan 22, 2017 15:27
--- NOTE | 2017-01-22 18:51 | CONS ---
Date/Time of Note Date/Time of Note DATE: 01/22/17 TIME: 18:33 Assessment/Plan Assessment/Plan Chief Complaint/Hosp Course IMP: 1.NSTEMI-peak trop>60 Now dowtrended significantly s/p LHC with patent RCA stents and high grade disease of LAD/LCX with small caliber vessels and recc for CABG. 2.cardiomyopathy-LVEF 40-45 BY OSH echo. 25% by echo read here 3.Hypotension-borderline. Hold lasix as tolerated 4.resp failure s/p extubation requiring PRN BIPAP which has now improved and not requiring further at this time 5.anemia 6. AMS/encephalopathy 7. PNA-ongoing by chest CT 8. COPD 9. Hypothyroid 10.DM-labile BS 11.Neck mass? with dysphagia. Now s/p bronch with findings of subglottic mass. Now per ENT decreasing in size and thinks possibly secondary to extended intubation 12. carotid stenosis Recc: -Now transferred to med-surg -Holding BB/lasix and follow BP which is marginal -Continue acei as tolerated only and as patient will comply -Continue asa -Continue statin -Smoking cessation -Follow BS closely and with ongoing adjustment insulin therapy as necessary -Continue abx's and f/u cx data -Continue bronchodilators -Brilinita held in anticipation of surgery./CABG now possibly scheduled for this upcoming thursday -repeat echo to reassess EF prior to anticipated surgery Problems: Consultation Date/Type/Reason Admit Date/Time Jan 06, 2017 at 10:49 Initial Consult Date 01/06/2017 Type of Consultation: cardiology Reason for Consultation Nstemi Referring Provider: TANIYA OLMSTEAD Exam/Review of Systems Vital Signs Vitals Vital Signs Date Time Temp Pulse Resp B/P Pulse Ox O2 Delivery O2 Flow Rate FiO2 01/22/17 14:43 98.2 85 16 110/54 97 Intake and Output 01/21/17 01/21/17 01/22/17 15:00 23:00 07:00 Intake Total 940 ml 220 ml Output Total 1200 ml 400 ml Balance -260 ml -180 ml Exam Review of Systems: CONSTITUTIONAL: No fevers, chills. PULMONARY: No sob CARDIOVASCULAR: No chest pain/palpitations GASTROINTESTINAL: No nausea/vomiting. GENITOURINARY: No hematuria/dysuria. MUSCULOSKELETAL: No myagias/arthalgias. PSYCHIATRIC: The patient denies depression. NEUROLOGIC: No weakness Constitutional: alert, oriented Psych: no complaints Head: normocephalic Neck: jvd (8 cm watr), supple Respiratory: diminished breath sounds (at bases/B) Cardiovascular: regular rate and rhythm Gastrointestinal: non-tender, soft Musculoskeletal: muscle tone (normal) Extremities: edema (none) 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: other (No fovcal deficits) Results Result Diagram: 01/22/17 0535 01/22/17 0535 Results 24 hrs Laboratory Tests Test 01/21/17 20:02 01/21/17 21:19 01/22/17 02:14 01/22/17 05:35 Bedside Glucose 255 H 205 316 H White Blood Count 6.8 Red Blood Count 3.78 L Hemoglobin 11.8 L Hematocrit 36.1 L Mean Corpuscular Volume 95.5 Mean Corpuscular Hemoglobin 31.2 Mean Corpuscular Hemoglobin Concent 32.7 Red Cell Distribution Width 15.8 H Platelet Count 274 Mean Platelet Volume 9.2 Neutrophils % 57.9 Lymphocytes % 20.2 Monocytes % 8.5 Eosinophils % 11.6 H Basophils % 1.5 Nucleated Red Blood Cells % 0.0 Neutrophils # 4.0 Lymphocytes # 1.4 Monocytes # 0.6 Eosinophils # 0.8 H Basophils # 0.1 Nucleated Red Blood Cells # 0.0 Sodium Level 138 Potassium Level 4.6 Chloride Level 98 Carbon Dioxide Level 27 Anion Gap 18 H Blood Urea Nitrogen 19 Creatinine 0.49 Glucose Level 433 *H Calcium Level 9.2 Test 01/22/17 07:04 01/22/17 07:06 01/22/17 08:04 01/22/17 10:51 Bedside Glucose 376 H 408 *H 385 H 250 H Test 01/22/17 12:10 01/22/17 15:16 01/22/17 17:01 Bedside Glucose 212 187 166 Medications Medications Current Medications Ondansetron HCl (Zofran Inj) 4 mg Q6H PRN IV NAUSEA AND/OR VOMITING; Start at 11:30 Acetaminophen (Tylenol Tab) 650 mg Q6H PRN PO PAIN LEVEL 1-3 OR FEVER; Start at 11:30 Acetaminophen (Tylenol Supp) 650 mg Q6H PRN [place] PAIN LEVEL 1-3 OR FEVER; Start 01/06/17 at 11:30 Aspirin (Halfprin) 81 mg DAILY PO Last administered on 01/22/17 09:44; Admin Dose 81 MG; Start 01/07/17 at 09:00 Duloxetine HCl (Cymbalta) 20 mg DAILY PO Last administered on 01/22/17 09:44; Admin Dose 20 MG; Start 01/07/17 at 09:00 Gabapentin (Neurontin) 300 mg TID PO Last administered on 01/22/17 12:10; Admin Dose 300 MG; Start 01/06/17 at 13:00 Metoprolol Tartrate (Lopressor) 12.5 mg BID PO ; Start 01/06/17 at 21:00; Status Future Hold Ticagrelor (Brilinta) 90 mg BID PO Last administered on 01/16/17 08:21; Admin Dose 90 MG; Start 01/06/17 at 21:00; Status Future Hold Diagnostic Test (Pha) (Accu-Chek) 1 ea 02 XX Last administered on 01/21/17 02: 00; Admin Dose 1 EA; Start 01/07/17 at 02:00 Furosemide (Lasix) 20 mg DAILY PO ; Start 01/07/17 at 09:00; Status Future Hold Bisacodyl (Dulcolax Supp) 10 mg DAILY PRN [place] CONSTIPATION; Start 01/06/17 at 11 :30 Guaifenesin (Robitussin Liquid Cup) 100 mg Q6H PRN PO COUGH Last administered on 01/08/17 07:54; Admin Dose 100 MG; Start 01/06/17 at 11:30 Levothyroxine Sodium (Synthroid) 112 mcg DAILY@06 PO Last administered on 06:06; Admin Dose 112 MCG; Start 01/07/17 at 06:00 Lisinopril (Zestril) 2.5 mg DAILY PO Last administered on 01/18/17 08:18; Admin Dose 2.5 MG; Start 01/07/17 at 09:00 Senna (Senokot) 2 tab HS PO Last administered on 01/21/17 21:21; Admin Dose 2 TAB; Start 01/06/17 at 21:00 Miscellaneous Information 1 ea NOTE XX ; Start 01/06/17 at 12:00 Glucose (Glutose) 15 gm Q15M PRN PO DECREASED GLUCOSE Last administered on 17:30; Admin Dose 15 GM; Start 01/06/17 at 12:00 Glucose (Glutose) 22.5 gm Q15M PRN PO DECREASED GLUCOSE Last administered on 03:34; Admin Dose 22.5 GM; Start 01/06/17 at 12:00 Dextrose (D50w Syringe) 25 ml Q15M PRN IV DECREASED GLUCOSE; Start 01/06/17 at 12:00 Dextrose (D50w Syringe) 50 ml Q15M PRN IV DECREASED GLUCOSE Last administered on 01/15/17 11:52; Admin Dose 50 ML; Start 01/06/17 at 12:00 Glucagon (Glucagen) 1 mg Q15M PRN IM DECREASED GLUCOSE; Start 01/06/17 at 12:00 Glucose (Glutose) 15 gm Q15M PRN BUCCAL DECREASED GLUCOSE Last administered on 01/10/17 07:07; Admin Dose 15 GM; Start 01/06/17 at 12:00 Atorvastatin Calcium (Lipitor) 40 mg HS PO Last administered on 01/21/17 21:21 ; Admin Dose 40 MG; Start 01/14/17 at 21:00 Lidocaine (Xylocaine 4% (Mpf)) 5 ml ONCE PRN HHN BREATHING TREATMENT Last administered on 01/15/17 09:38; Admin Dose 5 ML; Start 01/15/17 at 09:30 Alendronate Sodium (Fosamax) 70 mg We@0630 PO Last administered on 01/21/17 07: 00; Admin Dose 70 MG; Start 01/21/17 at 06:30 Polyethylene Glycol (Miralax) 17 gm DAILY PRN PO constipation; Start 01/20/17 at 18:30 Enoxaparin Sodium (Lovenox) 40 mg DAILY SC Last administered on 01/21/17 09:37 ; Admin Dose 40 MG; Start 01/21/17 at 09:00 Insulin Glargine (Lantus) 13 unit DAILY@08 SC Last administered on 01/22/17 08 :23; Admin Dose 13 UNIT; Start 01/22/17 at 08:00 RHONDA PENA Jan 22, 2017 18:51
[2017-01-22 19:40] VITALS: BP 107/53; RESP 20
--- NOTE | 2017-01-22 19:52 | PN ---
Date/Time of Note Date/Time of Note DATE: 01/22/17 TIME: 19:51 Assessment/Plan Lines/Catheters IV Catheter Type (from Nrsg): Saline Lock M[place]ray in Place (from Nrsg): No Assessment/Plan Chief Complaint/Hosp Course Patient with coronary artery disease multiple other medical problem Carotid dupplex Occlusion of the right internal carotid artery just beyond its origin due to large plaque burden as seen on the prior MRI. Small plaques involving the visualized portion of the left internal carotid artery without evidence of flow acceleration to suggest a hemodynamically significant stenosis; less than 50% ENT does not want to do any diagnostic or therapeutic procedure for tracheal mass at this time Patient is at high risk for undergoing coronary artery bypass graft I had a long discussion with her Her risks are especially high because of the carotid occlusion and cardiomyopathy Plan to repeat the echocardiogram to evaluate ejection fraction Tentatively for coronary artery bypass grafting on Thursday I would discuss options with Dr. Adames and Dr. Sanz Problems: Subjective 24 Hr Interval Summary Constitutional: improved Pain Control: mild Exam/Review of Systems Vital Signs Vitals Vital Signs Date Time Temp Pulse Resp B/P Pulse Ox O2 Delivery O2 Flow Rate FiO2 01/22/17 14:43 98.2 85 16 110/54 97 Intake and Output 01/21/17 01/21/17 01/22/17 15:00 23:00 07:00 Intake Total 940 ml 220 ml Output Total 1200 ml 400 ml Balance -260 ml -180 ml Exam Neck: non-tender, supple Respiratory: clear to auscultation, normal air movement Cardiovascular: nl pulses, regular rate and rhythm Gastrointestinal: nl liver, spleen, non-tender, soft Results Result Diagram: 01/22/17 0535 01/22/17 0535 CHLEA ALVARENGA MD Jan 22, 2017 19:52
--- NOTE | 2017-01-22 20:19 | CONS ---
Date/Time of Note Date/Time of Note DATE: 01/22/17 TIME: 20:13 Assessment/Plan Assessment/Plan Problems: (1) Type 1 diabetes mellitus with diabetic polyneuropathy Status: Chronic Comment: Last night despite hs FS in mid-200's, BG elevated throughout the night until it was in high 300's-low 400's this am. No reason why am Lantus should not be lasting this patient at least through most of the night. I have increased the dose of lantus this am from 12 to 13 units and will reeval O/N glycemic control tonight. If not effective, consider moving lantus back to nighttime, adding NPH at hs, or splitting lantus dose in half. With regard to low pre-dinner/post-lunch glucose levels, these have improved w/ new lunch Novolog doses. Will continue. Consultation Date/Type/Reason Admit Date/Time Jan 06, 2017 at 10:49 Initial Consult Date 01/14/17 Type of Consultation: Endocrinology Reason for Consultation T1DM OOC Referring Provider: TANIYA OLMSTEAD 24 HR Interval Summary Constitutional: no complaints Detailed Summary Respiratory: no complaints Cardiovascular: no complaints Gastrointestinal: no complaints Genitourinary: no complaints Musculoskeletal: no complaints Neurologic: no complaints Additional Comments Frustrated w/ high FBG and also prolonged hospital stay Exam/Review of Systems Vital Signs Vitals VS - Last 72 Hours, by Label Date Time Temp Pulse Resp B/P Pulse Ox O2 Delivery O2 Flow Rate FiO2 01/22/17 14:43 98.2 85 16 110/54 97 01/22/17 08:01 97.3 72 18 122/56 100 01/22/17 02:05 98.2 75 18 101/49 96 01/21/17 19:35 98.4 85 20 103/51 98 01/21/17 14:31 98.7 80 18 99/51 98 01/21/17 08:37 98.1 88 20 103/53 98 01/21/17 02:54 98.2 84 18 101/60 95 01/20/17 20:08 98.2 88 18 120/55 95 01/20/17 14:35 98.3 89 20 100/52 98 01/20/17 08:10 98.4 87 18 103/56 98 01/20/17 02:48 98.0 81 20 102/54 96 Vital Signs Date Time Temp Pulse Resp B/P Pulse Ox O2 Delivery O2 Flow Rate FiO2 01/22/17 14:43 98.2 85 16 110/54 97 Intake and Output 01/21/17 01/21/17 01/22/17 15:00 23:00 07:00 Intake Total 940 ml 220 ml Output Total 1200 ml 400 ml Balance -260 ml -180 ml Exam Constitutional: alert, oriented, well developed Respiratory: clear to auscultation, normal air movement Cardiovascular: nl pulses, regular rate and rhythm, No edema, No murmurs/extra sounds, No rub Gastrointestinal: bowel sounds, nl liver, spleen, non-tender, soft, No mass, No rebound or guarding Musculoskeletal: nl extremities to inspection Extremities: normal pulses, No clubbing, No cyanosis, No edema 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, nl mental status, nl speech, nl strength Additional Comments Bedside Glucose - 72 Hours Test 01/19/17 20:45 01/19/17 22:24 01/20/17 02:04 01/20/17 08:10 Bedside Glucose 460mg/dL (70-220) *H 394mg/dL (70-220) H 255mg/dL (70-220) H 292mg/dL (70-220) H Test 01/20/17 10:30 01/20/17 11:43 01/20/17 13:44 01/20/17 17:05 Bedside Glucose 271mg/dL (70-220) H 227mg/dL (70-220) H 91mg/dL (70-220) 59mg/dL (70-220) L Test 01/20/17 17:26 01/20/17 17:47 01/20/17 20:06 01/20/17 21:32 Bedside Glucose 80mg/dL (70-220) 143mg/dL (70-220) 389mg/dL (70-220) H 346mg/dL (70-220) H Test 01/21/17 02:05 01/21/17 07:38 01/21/17 10:14 01/21/17 12:13 Bedside Glucose 349mg/dL (70-220) H 388mg/dL (70-220) H 367mg/dL (70-220) H 172mg/dL (70-220) Test 01/21/17 14:43 01/21/17 17:12 01/21/17 20:02 01/21/17 21:19 Bedside Glucose 147mg/dL (70-220) 88mg/dL (70-220) 255mg/dL (70-220) H 205mg/dL (70-220) Test 01/22/17 02:14 01/22/17 07:04 01/22/17 07:06 01/22/17 08:04 Bedside Glucose 316mg/dL (70-220) H 376mg/dL (70-220) H 408mg/dL (70-220) *H 385mg/dL (70-220) H Test 01/22/17 10:51 01/22/17 12:10 01/22/17 15:16 01/22/17 17:01 Bedside Glucose 250mg/dL (70-220) H 212mg/dL (70-220) 187mg/dL (70-220) 166mg/dL (70-220) Test 01/22/17 20:09 Bedside Glucose 79mg/dL (70-220) Results Result Diagram: 01/22/17 0535 01/22/17 0535 Results 24 hrs Laboratory Tests Test 01/21/17 21:19 01/22/17 02:14 01/22/17 05:35 01/22/17 07:04 Bedside Glucose 205 316 H 376 H White Blood Count 6.8 Red Blood Count 3.78 L Hemoglobin 11.8 L Hematocrit 36.1 L Mean Corpuscular Volume 95.5 Mean Corpuscular Hemoglobin 31.2 Mean Corpuscular Hemoglobin Concent 32.7 Red Cell Distribution Width 15.8 H Platelet Count 274 Mean Platelet Volume 9.2 Neutrophils % 57.9 Lymphocytes % 20.2 Monocytes % 8.5 Eosinophils % 11.6 H Basophils % 1.5 Nucleated Red Blood Cells % 0.0 Neutrophils # 4.0 Lymphocytes # 1.4 Monocytes # 0.6 Eosinophils # 0.8 H Basophils # 0.1 Nucleated Red Blood Cells # 0.0 Sodium Level 138 Potassium Level 4.6 Chloride Level 98 Carbon Dioxide Level 27 Anion Gap 18 H Blood Urea Nitrogen 19 Creatinine 0.49 Glucose Level 433 *H Calcium Level 9.2 Test 01/22/17 07:06 01/22/17 08:04 01/22/17 10:51 01/22/17 12:10 Bedside Glucose 408 *H 385 H 250 H 212 Test 01/22/17 15:16 01/22/17 17:01 01/22/17 20:09 Bedside Glucose 187 166 79 Medications Medications Current Medications Ondansetron HCl (Zofran Inj) 4 mg Q6H PRN IV NAUSEA AND/OR VOMITING; Start at 11:30 Acetaminophen (Tylenol Tab) 650 mg Q6H PRN PO PAIN LEVEL 1-3 OR FEVER; Start at 11:30 Acetaminophen (Tylenol Supp) [address] PAIN LEVEL 1-3 OR FEVER; Start 01/06/17 at 11:30 Aspirin (Halfprin) 81 mg DAILY PO Last administered on 01/22/17 09:44; Admin Dose 81 MG; Start 01/07/17 at 09:00 Duloxetine HCl (Cymbalta) 20 mg DAILY PO Last administered on 01/22/17 09:44; Admin Dose 20 MG; Start 01/07/17 at 09:00 Gabapentin (Neurontin) 300 mg TID PO Last administered on 01/22/17 12:10; Admin Dose 300 MG; Start 01/06/17 at 13:00 Metoprolol Tartrate (Lopressor) 12.5 mg BID PO ; Start 01/06/17 at 21:00; Status Future Hold Ticagrelor (Brilinta) 90 mg BID PO Last administered on 01/16/17 08:21; Admin Dose 90 MG; Start 01/06/17 at 21:00; Status Future Hold Diagnostic Test (Pha) (Accu-Chek) 1 ea 02 XX Last administered on 01/21/17 02: 00; Admin Dose 1 EA; Start 01/07/17 at 02:00 Furosemide (Lasix) 20 mg DAILY PO ; Start 01/07/17 at 09:00; Status Future Hold Bisacodyl (Dulcolax Supp) [address] CONSTIPATION; Start 01/06/17 at 11 :30 Guaifenesin (Robitussin Liquid Cup) 100 mg Q6H PRN PO COUGH Last administered on 01/08/17 07:54; Admin Dose 100 MG; Start 01/06/17 at 11:30 Levothyroxine Sodium (Synthroid) 112 mcg DAILY@06 PO Last administered on 06:06; Admin Dose 112 MCG; Start 01/07/17 at 06:00 Lisinopril (Zestril) 2.5 mg DAILY PO Last administered on 01/18/17 08:18; Admin Dose 2.5 MG; Start 01/07/17 at 09:00 Senna (Senokot) 2 tab HS PO Last administered on 01/21/17 21:21; Admin Dose 2 TAB; Start 01/06/17 at 21:00 Miscellaneous Information 1 ea NOTE XX ; Start 01/06/17 at 12:00 Glucose (Glutose) 15 gm Q15M PRN PO DECREASED GLUCOSE Last administered on 17:30; Admin Dose 15 GM; Start 01/06/17 at 12:00 Glucose (Glutose) 22.5 gm Q15M PRN PO DECREASED GLUCOSE Last administered on 03:34; Admin Dose 22.5 GM; Start 01/06/17 at 12:00 Dextrose (D50w Syringe) 25 ml Q15M PRN IV DECREASED GLUCOSE; Start 01/06/17 at 12:00 Dextrose (D50w Syringe) 50 ml Q15M PRN IV DECREASED GLUCOSE Last administered on 01/15/17 11:52; Admin Dose 50 ML; Start 01/06/17 at 12:00 Glucagon (Glucagen) 1 mg Q15M PRN IM DECREASED GLUCOSE; Start 01/06/17 at 12:00 Glucose (Glutose) 15 gm Q15M PRN BUCCAL DECREASED GLUCOSE Last administered on 01/10/17 07:07; Admin Dose 15 GM; Start 01/06/17 at 12:00 Atorvastatin Calcium (Lipitor) 40 mg HS PO Last administered on 01/21/17 21:21 ; Admin Dose 40 MG; Start 01/14/17 at 21:00 Lidocaine (Xylocaine 4% (Mpf)) 5 ml ONCE PRN HHN BREATHING TREATMENT Last administered on 01/15/17 09:38; Admin Dose 5 ML; Start 01/15/17 at 09:30 Alendronate Sodium (Fosamax) 70 mg We@0630 PO Last administered on 01/21/17 07: 00; Admin Dose 70 MG; Start 01/21/17 at 06:30 Polyethylene Glycol (Miralax) 17 gm DAILY PRN PO constipation; Start 01/20/17 at 18:30 Enoxaparin Sodium (Lovenox) 40 mg DAILY SC Last administered on 01/21/17 09:37 ; Admin Dose 40 MG; Start 01/21/17 at 09:00 Insulin Glargine (Lantus) 13 unit DAILY@08 SC Last administered on 01/22/17 08 :23; Admin Dose 13 UNIT; Start 01/22/17 at 08:00 DARYL MYERS MD Jan 22, 2017 20:19
[2017-01-22] MEDS: ATORVASTATIN 40 MG TAB PO SCH (21:34)
[2017-01-22] MEDS: SENNA TAB PO SCH (21:34)
[2017-01-23 02:08] VITALS: BP 102/52; RESP 20
[2017-01-23] MEDS: ACCU-CHEK XX SCH ×4 (02:33→20:05)
[2017-01-23] MEDS: LEVOTHYROXINE 112 MCG TAB PO SCH (05:49)
[2017-01-23 06:39] LABS: BASOPHIL # 0.1 10^3/ul (0.0-0.1); BASOPHILS % 0.7 % (0.0-2.0); EOSINOPHILS # 0.7 10^3/ul (0.0-0.5); EOSINOPHILS % 7.2 % (0.0-7.0); HEMATOCRIT 36.2 % (37.0-47.0); HEMOGLOBIN 11.6 g/dl (12.0-16.0); LYMPHOCYTES # 1.3 10^3/ul (0.8-2.9); LYMPHOCYTES % 12.9 % (15.0-51.0); MEAN CORPUSCULAR HEMOGLOBIN 30.7 pg (29.0-33.0); MEAN CORPUSCULAR VOLUME 95.8 fl (82.0-101.0); MEAN PLATELET VOLUME 9.4 fl (7.4-10.4); MONOCYTE # 0.9 10^3/ul (0.3-0.9); MONOCYTES % 9.4 % (0.0-11.0); NEUTROPHIL # 6.8 10^3/ul (1.6-7.5); NEUTROPHILS % 69.4 % (39.0-77.0); PLATELET COUNT 277 10^3/UL (140-415); RED BLOOD COUNT 3.78 10^6/ul (4.20-5.40); RED CELL DISTRIBUTION WIDTH 15.6 % (11.5-14.5); WHITE BLOOD COUNT 9.8 10^3/ul (4.8-10.8)
[2017-01-23 07:07] LABS: CALCIUM 9.1 mg/dl (8.4-10.2); CREATININE 0.53 mg/dl (0.44-1.00); POTASSIUM 4.4 mmol/L (3.5-5.1)
[2017-01-23 07:25] VITALS: BP 104/51; RESP 16
[2017-01-23] MEDS: ENOXAPARIN 40 MG/0.4 ML SYG SC SCH (08:15)
[2017-01-23] MEDS: DULOXETINE 20 MG CAP DR PO SCH (08:15)
[2017-01-23] MEDS: ASPIRIN (EC) 81 MG TAB PO SCH (08:15)
[2017-01-23] MEDS: GABAPENTIN 300 MG CAP PO SCH ×3 (08:15→22:35)
[2017-01-23] MEDS: INSULIN GLARGINE [LANtus] 3 ML PEN SC SCH (08:19)
[2017-01-23] MEDS: INSULIN ASPART [NOVOLOG] 3 ML PEN SC SCH ×7 (08:20→21:00)
[2017-01-23] MEDS: LISINOPRIL 5 MG TAB PO SCH (08:46)
[2017-01-23 14:08] VITALS: BP 109/53; RESP 16
--- NOTE | 2017-01-23 14:56 | CONS ---
Date/Time of Note Date/Time of Note DATE: 01/23/17 TIME: 14:54 Assessment/Plan Assessment/Plan Chief Complaint/Hosp Course IMP: 1.NSTEMI-peak trop>60 Now dowtrended significantly s/p LHC with patent RCA stents and high grade disease of LAD/LCX with small caliber vessels and recc for CABG. 2.cardiomyopathy-LVEF 40-45 BY OSH echo. 25% by echo read here 3.Hypotension-borderline. Hold lasix as tolerated 4.resp failure s/p extubation requiring PRN BIPAP which has now improved and not requiring further at this time 5.anemia 6. AMS/encephalopathy 7. PNA-ongoing by chest CT 8. COPD 9. Hypothyroid 10.DM-labile BS 11.Neck mass? with dysphagia. Now s/p bronch with findings of subglottic mass. Now per ENT decreasing in size and thinks possibly secondary to extended intubation 12. carotid stenosis Recc: -On med-surg -Holding BB/lasix and follow BP which is marginal but reasonablke -Continue acei as tolerated only and as patient will comply -Continue asa -Continue statin -Smoking cessation -Follow BS closely and with ongoing adjustment insulin therapy as necessary -Continue abx's and f/u cx data -Continue bronchodilators -Brilinita held in anticipation of surgery./CABG now scheduled for this upcoming thursday -Will f/u repeat echo to reassess EF prior to anticipated surgery Problems: Consultation Date/Type/Reason Admit Date/Time Jan 06, 2017 at 10:49 Initial Consult Date 01/06/2017 Type of Consultation: cardiology Reason for Consultation nstemi Referring Provider: TANIYA OLMSTEAD Exam/Review of Systems Vital Signs Vitals Vital Signs Date Time Temp Pulse Resp B/P Pulse Ox O2 Delivery O2 Flow Rate FiO2 01/23/17 07:25 98.3 88 16 104/51 95 Intake and Output 01/22/17 01/22/17 01/23/17 15:00 23:00 07:00 Intake Total 1580 ml 320 ml Balance 1580 ml 320 ml Exam Review of Systems: CONSTITUTIONAL: No fevers, chills. PULMONARY: No sob CARDIOVASCULAR: No chest pain/palpitations GASTROINTESTINAL: No nausea/vomiting. GENITOURINARY: No hematuria/dysuria. MUSCULOSKELETAL: No myagias/arthalgias. PSYCHIATRIC: The patient denies depression. NEUROLOGIC: No weakness Constitutional: alert, oriented Psych: no complaints Head: normocephalic ENMT: mucosa pink and moist (8-9 cm water) Neck: jvd (8-9 cm water), supple Respiratory: clear to auscultation Cardiovascular: regular rate and rhythm Gastrointestinal: non-tender, soft Musculoskeletal: muscle tone (normal) Extremities: edema (none) 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: other (No focal deficits) Results Result Diagram: 01/23/17 0606 01/23/17 0606 Results 24 hrs Laboratory Tests Test 01/22/17 15:16 01/22/17 17:01 01/22/17 20:09 01/22/17 21:33 Bedside Glucose 187 166 79 120 Test 01/23/17 02:30 01/23/17 06:06 01/23/17 08:14 01/23/17 10:11 Bedside Glucose 193 306 H 285 H White Blood Count 9.8 # Red Blood Count 3.78 L Hemoglobin 11.6 L Hematocrit 36.2 L Mean Corpuscular Volume 95.8 Mean Corpuscular Hemoglobin 30.7 Mean Corpuscular Hemoglobin Concent 32.0 Red Cell Distribution Width 15.6 H Platelet Count 277 Mean Platelet Volume 9.4 Neutrophils % 69.4 Lymphocytes % 12.9 L Monocytes % 9.4 Eosinophils % 7.2 H Basophils % 0.7 Nucleated Red Blood Cells % 0.0 Neutrophils # 6.8 Lymphocytes # 1.3 Monocytes # 0.9 Eosinophils # 0.7 H Basophils # 0.1 Nucleated Red Blood Cells # 0.0 Sodium Level 139 Potassium Level 4.4 Chloride Level 95 L Carbon Dioxide Level 31 Anion Gap 17 H Blood Urea Nitrogen 16 Creatinine 0.53 Glucose Level 242 #H Calcium Level 9.1 Test 01/23/17 11:54 01/23/17 14:03 Bedside Glucose 169 89 Medications Medications Current Medications Ondansetron HCl (Zofran Inj) 4 mg Q6H PRN IV NAUSEA AND/OR VOMITING; Start at 11:30 Acetaminophen (Tylenol Tab) 650 mg Q6H PRN PO PAIN LEVEL 1-3 OR FEVER; Start at 11:30 Acetaminophen (Tylenol Supp) 650 mg Q6H PRN [place] PAIN LEVEL 1-3 OR FEVER; Start 01/06/17 at 11:30 Aspirin (Halfprin) 81 mg DAILY PO Last administered on 01/23/17 08:15; Admin Dose 81 MG; Start 01/07/17 at 09:00 Duloxetine HCl (Cymbalta) 20 mg DAILY PO Last administered on 01/23/17 08:15; Admin Dose 20 MG; Start 01/07/17 at 09:00 Gabapentin (Neurontin) 300 mg TID PO Last administered on 01/23/17 12:01; Admin Dose 300 MG; Start 01/06/17 at 13:00 Metoprolol Tartrate (Lopressor) 12.5 mg BID PO ; Start 01/06/17 at 21:00; Status Future Hold Ticagrelor (Brilinta) 90 mg BID PO Last administered on 01/16/17 08:21; Admin Dose 90 MG; Start 01/06/17 at 21:00; Status Future Hold Diagnostic Test (Pha) (Accu-Chek) 1 ea 02 XX Last administered on 01/23/17 02: 33; Admin Dose 1 EA; Start 01/07/17 at 02:00 Furosemide (Lasix) 20 mg DAILY PO ; Start 01/07/17 at 09:00; Status Future Hold Bisacodyl (Dulcolax Supp) 10 mg DAILY PRN [place] CONSTIPATION; Start 01/06/17 at 11 :30 Guaifenesin (Robitussin Liquid Cup) 100 mg Q6H PRN PO COUGH Last administered on 01/08/17 07:54; Admin Dose 100 MG; Start 01/06/17 at 11:30 Levothyroxine Sodium (Synthroid) 112 mcg DAILY@06 PO Last administered on 05:49; Admin Dose 112 MCG; Start 01/07/17 at 06:00 Lisinopril (Zestril) 2.5 mg DAILY PO Last administered on 01/18/17 08:18; Admin Dose 2.5 MG; Start 01/07/17 at 09:00 Senna (Senokot) 2 tab HS PO Last administered on 01/22/17 21:34; Admin Dose 2 TAB; Start 01/06/17 at 21:00 Miscellaneous Information 1 ea NOTE XX ; Start 01/06/17 at 12:00 Glucose (Glutose) 15 gm Q15M PRN PO DECREASED GLUCOSE Last administered on 17:30; Admin Dose 15 GM; Start 01/06/17 at 12:00 Glucose (Glutose) 22.5 gm Q15M PRN PO DECREASED GLUCOSE Last administered on 03:34; Admin Dose 22.5 GM; Start 01/06/17 at 12:00 Dextrose (D50w Syringe) 25 ml Q15M PRN IV DECREASED GLUCOSE; Start 01/06/17 at 12:00 Dextrose (D50w Syringe) 50 ml Q15M PRN IV DECREASED GLUCOSE Last administered on 01/15/17 11:52; Admin Dose 50 ML; Start 01/06/17 at 12:00 Glucagon (Glucagen) 1 mg Q15M PRN IM DECREASED GLUCOSE; Start 01/06/17 at 12:00 Glucose (Glutose) 15 gm Q15M PRN BUCCAL DECREASED GLUCOSE Last administered on 01/10/17 07:07; Admin Dose 15 GM; Start 01/06/17 at 12:00 Atorvastatin Calcium (Lipitor) 40 mg HS PO Last administered on 01/22/17 21:34 ; Admin Dose 40 MG; Start 01/14/17 at 21:00 Lidocaine (Xylocaine 4% (Mpf)) 5 ml ONCE PRN HHN BREATHING TREATMENT Last administered on 01/15/17 09:38; Admin Dose 5 ML; Start 01/15/17 at 09:30 Alendronate Sodium (Fosamax) 70 mg We@0630 PO Last administered on 01/21/17 07: 00; Admin Dose 70 MG; Start 01/21/17 at 06:30 Polyethylene Glycol (Miralax) 17 gm DAILY PRN PO constipation; Start 01/20/17 at 18:30 Enoxaparin Sodium (Lovenox) 40 mg DAILY SC Last administered on 01/21/17 09:37 ; Admin Dose 40 MG; Start 01/21/17 at 09:00 Insulin Glargine (Lantus) 13 unit DAILY@08 SC Last administered on 01/23/17 08 :19; Admin Dose 13 UNIT; Start 01/22/17 at 08:00 RHONDA PENA Jan 23, 2017 14:56
--- NOTE | 2017-01-23 15:48 | PN ---
Date/Time of Note Date/Time of Note DATE: 01/23/17 TIME: 15:47 Assessment/Plan VTE Prophylaxis VTE Prophylaxis Intervention: SCD's Lines/Catheters IV [facility]ter Type (from [facility]): Saline Lock Urinary Cath still in place: No Assessment/Plan Assessment/Plan 6 yo F with poorly controlled DM2 admitted for NSTEMI in setting DKA. Found to have multivessel CAD. Awaiting CABG. Also with incidental finding of L sided subglottic lesion, likely 2/2 prolonged intubation and not in need of additional w/u per ENT 1. multivessel CAD, recent NSTEMI, ICM with EF <25%. CABG pending -cont current cardiac meds-->bb/lasix on hold for prior episodes of orthostasis earlier this admission Brilinta on hold given possible impending surgeries - tentative plan for thursday. pt is high risk for this procedure. repeat TTE ordered 2. L subglottic lesion:ENT states 2/2 prolonged intubation and does not require further w/u 3. Severe obstructive and restrictive pulmonary disease. -Continue bronchodilators. 4. DM with wide BG fluctuations -endo on consult for aid with insulin management 5. Hypothyroidism. -Continue Synthroid. 6. Chronic anemia. H&H stable. Will monitor. DVT prophylaxis: LMWH Subjective 24 Hr Interval Summary Free Text/Dictation Told pt of the discussion I had last night with the surgeon Exam/Review of Systems Vital Signs Vitals Vital Signs Date Time Temp Pulse Resp B/P Pulse Ox O2 Delivery O2 Flow Rate FiO2 01/23/17 14:08 98.5 92 16 109/53 97 Intake and Output 01/22/17 01/22/17 01/23/17 15:00 23:00 07:00 Intake Total 1580 ml 320 ml Balance 1580 ml 320 ml Exam sitting up in bed nad no mrg lungs clear abd soft no rashes TTE pending Results Result Diagram: 01/23/17 0606 01/23/17 0606 Results 24 hrs Laboratory Tests Test 01/22/17 17:01 01/22/17 20:09 01/22/17 21:33 01/23/17 02:30 Bedside Glucose 166 79 120 193 Test 01/23/17 06:06 01/23/17 08:14 01/23/17 10:11 01/23/17 11:54 White Blood Count 9.8 # Red Blood Count 3.78 L Hemoglobin 11.6 L Hematocrit 36.2 L Mean Corpuscular Volume 95.8 Mean Corpuscular Hemoglobin 30.7 Mean Corpuscular Hemoglobin Concent 32.0 Red Cell Distribution Width 15.6 H Platelet Count 277 Mean Platelet Volume 9.4 Neutrophils % 69.4 Lymphocytes % 12.9 L Monocytes % 9.4 Eosinophils % 7.2 H Basophils % 0.7 Nucleated Red Blood Cells % 0.0 Neutrophils # 6.8 Lymphocytes # 1.3 Monocytes # 0.9 Eosinophils # 0.7 H Basophils # 0.1 Nucleated Red Blood Cells # 0.0 Sodium Level 139 Potassium Level 4.4 Chloride Level 95 L Carbon Dioxide Level 31 Anion Gap 17 H Blood Urea Nitrogen 16 Creatinine 0.53 Glucose Level 242 #H Calcium Level 9.1 Bedside Glucose 306 H 285 H 169 Test 01/23/17 14:03 Bedside Glucose 89 Medications Medications Current Medications Ondansetron HCl (Zofran Inj) 4 mg Q6H PRN IV NAUSEA AND/OR VOMITING; Start at 11:30 Acetaminophen (Tylenol Tab) 650 mg Q6H PRN PO PAIN LEVEL 1-3 OR FEVER; Start at 11:30 Acetaminophen (Tylenol Supp) 650 mg Q6H PRN [place] PAIN LEVEL 1-3 OR FEVER; Start 01/06/17 at 11:30 Aspirin (Halfprin) 81 mg DAILY PO Last administered on 01/23/17 08:15; Admin Dose 81 MG; Start 01/07/17 at 09:00 Duloxetine HCl (Cymbalta) 20 mg DAILY PO Last administered on 01/23/17 08:15; Admin Dose 20 MG; Start 01/07/17 at 09:00 Gabapentin (Neurontin) 300 mg TID PO Last administered on 01/23/17 12:01; Admin Dose 300 MG; Start 01/06/17 at 13:00 Metoprolol Tartrate (Lopressor) 12.5 mg BID PO ; Start 01/06/17 at 21:00; Status Future Hold Ticagrelor (Brilinta) 90 mg BID PO Last administered on 01/16/17 08:21; Admin Dose 90 MG; Start 01/06/17 at 21:00; Status Future Hold Diagnostic Test (Pha) (Accu-Chek) 02 XX Last administered on 01/23/17 02: 33; Admin Dose 1 EA; Start 01/07/17 at 02:00 Furosemide (Lasix) 20 mg DAILY PO ; Start 01/07/17 at 09:00; Status Future Hold Bisacodyl (Dulcolax Supp) 10 mg DAILY PRN [place] CONSTIPATION; Start 01/06/17 at 11 :30 Guaifenesin (Robitussin Liquid Cup) 100 mg Q6H PRN PO COUGH Last administered on 01/08/17 07:54; Admin Dose 100 MG; Start 01/06/17 at 11:30 Levothyroxine Sodium (Synthroid) 112 mcg DAILY@06 PO Last administered on 05:49; Admin Dose 112 MCG; Start 01/07/17 at 06:00 Lisinopril (Zestril) 2.5 mg DAILY PO Last administered on 01/18/17 08:18; Admin Dose 2.5 MG; Start 01/07/17 at 09:00 Senna (Senokot) 2 tab HS PO Last administered on 01/22/17 21:34; Admin Dose 2 TAB; Start 01/06/17 at 21:00 Miscellaneous Information 1 ea NOTE XX ; Start 01/06/17 at 12:00 Glucose (Glutose) 15 gm Q15M PRN PO DECREASED GLUCOSE Last administered on 17:30; Admin Dose 15 GM; Start 01/06/17 at 12:00 Glucose (Glutose) 22.5 gm Q15M PRN PO DECREASED GLUCOSE Last administered on 03:34; Admin Dose 22.5 GM; Start 01/06/17 at 12:00 Dextrose (D50w Syringe) 25 ml Q15M PRN IV DECREASED GLUCOSE; Start 01/06/17 at 12:00 Dextrose (D50w Syringe) 50 ml Q15M PRN IV DECREASED GLUCOSE Last administered on 01/15/17 11:52; Admin Dose 50 ML; Start 01/06/17 at 12:00 Glucagon (Glucagen) 1 mg Q15M PRN IM DECREASED GLUCOSE; Start 01/06/17 at 12:00 Glucose (Glutose) 15 gm Q15M PRN BUCCAL DECREASED GLUCOSE Last administered on 01/10/17 07:07; Admin Dose 15 GM; Start 01/06/17 at 12:00 Atorvastatin Calcium (Lipitor) 40 mg HS PO Last administered on 01/22/17 21:34 ; Admin Dose 40 MG; Start 01/14/17 at 21:00 Lidocaine (Xylocaine 4% (Mpf)) 5 ml ONCE PRN HHN BREATHING TREATMENT Last administered on 01/15/17 09:38; Admin Dose 5 ML; Start 01/15/17 at 09:30 Alendronate Sodium (Fosamax) 70 mg We@0630 PO Last administered on 01/21/17 07: 00; Admin Dose 70 MG; Start 01/21/17 at 06:30 Polyethylene Glycol (Miralax) 17 gm DAILY PRN PO constipation; Start 01/20/17 at 18:30 Enoxaparin Sodium (Lovenox) 40 mg DAILY SC Last administered on 01/21/17 09:37 ; Admin Dose 40 MG; Start 01/21/17 at 09:00 Insulin Glargine (Lantus) 13 unit DAILY@08 SC Last administered on 01/23/17 08 :19; Admin Dose 13 UNIT; Start 01/22/17 at 08:00 ROBEL PETTY MD Jan 23, 2017 15:48
--- NOTE | 2017-01-23 16:13 | RADRPT ---
Echocardiogram Report ADDENDUM Patient Name: POOJA NGUYEN Gender: Female Date: 1960 Study Date: 23-Jan-2017 Web Producer: BILLY Location: I Ref. Physician: ROBEL PETTY Quality: Good Procedures: Transthoracic echocardiogram with complete 2D, M-Mode, and doppler examination. Indications: heart failure. 2D/M Mode Doppler Measurement Value Normal Ranges Measurement Value Normal Ranges LVIDd 2D 3.8 3.5 - 5.6 cm AV Peak Geo 1.3 m/sec LVIDs 2D 2.6 2.1 - 4.1 cm AV Peak PG 6.6 mmHg LVPWd 2D 1.2 0.6 - 1.1 cm AI Peak PG 62.8 mmHg IVSd 2D 1.2 0.6 - 1.1 cm AI Peak Geo 4.0 m/sec AoR Diam 2D 2.9 2.0 - 3.7 cm AI PHT 1378.6 msec EDV 2D 61.1 cm3 LVOT Peak Geo 1.0 m/sec ESV 2D 17.1 cm3 LVOT Peak PG 3.8 mmHg LA Dimen 2D 3.1 2.3 - 4.0 cm MV E Peak Geo 0.6 m/sec MV A Peak Geo 0.9 m/sec MV E/A 0.6 MV Decel Time 167 msec MV Decel Gove 3 MV E/A 0.6 TR Peak Geo 2.6 m/sec TR Peak PG 27.4 mmHg RVSP 37.1 mmHg Findings Left Ventricle: Normal left ventricular systolic function. Normal left ventricular cavity size. Mild left ventricular systolic dysfunction. Ejection fraction is visually estimated at 4045 %. Tissue Doppler/Mitral Doppler indices are consistent with impaired relaxation (Stage I diastolic dysfunction). These segments of the LV are hypokinetic anteroseptum mid segment, anteroseptum base segment and mid anterior segment. Right Ventricle: Normal right ventricular size. Normal right ventricular systolic function. Left Atrium: The left atrium is normal in size. Right Atrium: The right atrium is normal in size. Mitral Valve: Trace mitral regurgitation. Aortic Valve: Trace aortic valve regurgitation. Tricuspid Valve: Normal appearance of the tricuspid valve. Normal right ventricular systolic pressure. Estimated peak PA systolic pressure 40 mmHg. There is trace tricuspid regurgitation. Pulmonic Valve: Normal pulmonic valve appearance. Pericardium: Normal pericardium with no significant pericardial effusion. Aorta: Normal aortic root. IVC: Normal size and normal respiratory collapse consistent with normal right atrial pressure. Conclusions 1.Normal left ventricular systolic function. Normal left ventricular cavity size. Mild left ventricular systolic dysfunction. Ejection fraction is visually estimated at 40-45 %. Tissue Doppler/Mitral Doppler indices are consistent with impaired relaxation (Stage I diastolic dysfunction). Trace mitral regurgitation. 2.Trace aortic valve regurgitation. 3.Normal appearance and function of the tricuspid valve with trace tricuspid regurgitation. Normal right ventricular systolic pressure. Estimated peak PA systolic pressure 40 mmHg. Electronically Signed By: Keanu Adames 23-Jan-2017 19:40:52 -0700 [ADDENDUM] Patient Name: POOJA NGUYEN Study Date: 23-Jan-2017 [id number]
--- NOTE | 2017-01-23 18:29 | CONS ---
Date/Time of Note Date/Time of Note DATE: 01/23/17 TIME: 18:26 Assessment/Plan Assessment/Plan Problems: (1) Type 1 diabetes mellitus with diabetic polyneuropathy Status: Chronic Comment: Ongoing am hyperglycemia. Seems to indicate Yady phenomenon, possibly associated w/ lantus wearing off from am dosage. Will leave lantus dose in am and add NPH 6 units at hs. Lunch dose of Novolog again too much for this patient; will reduce from 5 to 4 units for lunch. Cont. all other doses as written. Consultation Date/Type/Reason Admit Date/Time Jan 06, 2017 at 10:49 Initial Consult Date 01/14/17 Type of Consultation: Endocrinology Reason for Consultation [id number] Referring Provider: TANIYA OLMSTEAD 24 HR Interval Summary Constitutional: no complaints Detailed Summary Respiratory: no complaints Cardiovascular: no complaints Gastrointestinal: no complaints Genitourinary: no complaints Musculoskeletal: no complaints Neurologic: no complaints Exam/Review of Systems Vital Signs Vitals VS - Last 72 Hours, by Label Date Time Temp Pulse Resp B/P Pulse Ox O2 Delivery O2 Flow Rate FiO2 01/23/17 14:08 98.5 92 16 109/53 97 01/23/17 07:25 98.3 88 16 104/51 95 01/23/17 02:08 98.7 88 20 102/52 97 01/22/17 19:40 98.8 94 20 107/53 98 01/22/17 14:43 98.2 85 16 110/54 97 01/22/17 08:01 97.3 72 18 122/56 100 01/22/17 02:05 98.2 75 18 101/49 96 01/21/17 19:35 98.4 85 20 103/51 98 01/21/17 14:31 98.7 80 18 99/51 98 01/21/17 08:37 98.1 88 20 103/53 98 01/21/17 02:54 98.2 84 18 101/60 95 01/20/17 20:08 98.2 88 18 120/55 95 Vital Signs Date Time Temp Pulse Resp B/P Pulse Ox O2 Delivery O2 Flow Rate FiO2 01/23/17 14:08 98.5 92 16 109/53 97 Intake and Output 01/22/17 01/22/17 01/23/17 15:00 23:00 07:00 Intake Total 1580 ml 320 ml Balance 1580 ml 320 ml Exam Constitutional: alert, oriented, well developed Psych: nl mood/affect, no complaints Respiratory: clear to auscultation, normal air movement Cardiovascular: nl pulses, regular rate and rhythm, No edema, No murmurs/extra sounds, No rub Gastrointestinal: bowel sounds, nl liver, spleen, non-tender, soft, No mass, No rebound or guarding Musculoskeletal: nl extremities to inspection Extremities: normal pulses, No clubbing, No cyanosis, No edema 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: BATCH OPERATOR II-XII intact, nl mental status, nl speech, nl strength Additional Comments Bedside Glucose - 72 Hours Test 01/20/17 20:06 01/20/17 21:32 01/21/17 02:05 01/21/17 07:38 Bedside Glucose 389mg/dL (70-220) H 346mg/dL (70-220) H 349mg/dL (70-220) H 388mg/dL (70-220) H Test 01/21/17 10:14 01/21/17 12:13 01/21/17 14:43 01/21/17 17:12 Bedside Glucose 367mg/dL (70-220) H 172mg/dL (70-220) 147mg/dL (70-220) 88mg/dL (70-220) Test 01/21/17 20:02 01/21/17 21:19 01/22/17 02:14 01/22/17 07:04 Bedside Glucose 255mg/dL (70-220) H 205mg/dL (70-220) 316mg/dL (70-220) H 376mg/dL (70-220) H Test 01/22/17 07:06 01/22/17 08:04 01/22/17 10:51 01/22/17 12:10 Bedside Glucose 408mg/dL (70-220) *H 385mg/dL (70-220) H 250mg/dL (70-220) H 212mg/dL (70-220) Test 01/22/17 15:16 01/22/17 17:01 01/22/17 20:09 01/22/17 21:33 Bedside Glucose 187mg/dL (70-220) 166mg/dL (70-220) 79mg/dL (70-220) 120mg/dL (70-220) Test 01/23/17 02:30 01/23/17 08:14 01/23/17 10:11 01/23/17 11:54 Bedside Glucose 193mg/dL (70-220) 306mg/dL (70-220) H 285mg/dL (70-220) H 169mg/dL (70-220) Test 01/23/17 14:03 01/23/17 16:27 01/23/17 17:23 Bedside Glucose 89mg/dL (70-220) 93mg/dL (70-220) 71mg/dL (70-220) Results Result Diagram: 01/23/17 0606 01/23/17 0606 Results 24 hrs Laboratory Tests Test 01/22/17 20:09 01/22/17 21:33 01/23/17 02:30 01/23/17 06:06 Bedside Glucose 79 120 193 White Blood Count 9.8 # Red Blood Count 3.78 L Hemoglobin 11.6 L Hematocrit 36.2 L Mean Corpuscular Volume 95.8 Mean Corpuscular Hemoglobin 30.7 Mean Corpuscular Hemoglobin Concent 32.0 Red Cell Distribution Width 15.6 H Platelet Count 277 Mean Platelet Volume 9.4 Neutrophils % 69.4 Lymphocytes % 12.9 L Monocytes % 9.4 Eosinophils % 7.2 H Basophils % 0.7 Nucleated Red Blood Cells % 0.0 Neutrophils # 6.8 Lymphocytes # 1.3 Monocytes # 0.9 Eosinophils # 0.7 H Basophils # 0.1 Nucleated Red Blood Cells # 0.0 Sodium Level 139 Potassium Level 4.4 Chloride Level 95 L Carbon Dioxide Level 31 Anion Gap 17 H Blood Urea Nitrogen 16 Creatinine 0.53 Glucose Level 242 #H Calcium Level 9.1 Test 01/23/17 08:14 01/23/17 10:11 01/23/17 11:54 01/23/17 14:03 Bedside Glucose 306 H 285 H 169 89 Test 01/23/17 16:27 01/23/17 17:23 Bedside Glucose 93 71 Medications Medications Current Medications Ondansetron HCl (Zofran Inj) 4 mg Q6H PRN IV NAUSEA AND/OR VOMITING; Start at 11:30 Acetaminophen (Tylenol Tab) 650 mg Q6H PRN PO PAIN LEVEL 1-3 OR FEVER; Start at 11:30 Acetaminophen (Tylenol Supp) 650 mg Q6H PRN [place] PAIN LEVEL 1-3 OR FEVER; Start 01/06/17 at 11:30 Aspirin (Halfprin) 81 mg DAILY PO Last administered on 01/23/17 08:15; Admin Dose 81 MG; Start 01/07/17 at 09:00 Duloxetine HCl (Cymbalta) 20 mg DAILY PO Last administered on 01/23/17 08:15; Admin Dose 20 MG; Start 01/07/17 at 09:00 Gabapentin (Neurontin) 300 mg TID PO Last administered on 01/23/17 12:01; Admin Dose 300 MG; Start 01/06/17 at 13:00 Metoprolol Tartrate (Lopressor) 12.5 mg BID PO ; Start 01/06/17 at 21:00; Status Future Hold Ticagrelor (Brilinta) 90 mg BID PO Last administered on 01/16/17 08:21; Admin Dose 90 MG; Start 01/06/17 at 21:00; Status Future Hold Diagnostic Test (Pha) (Accu-Chek) 1 ea 02 XX Last administered on 01/23/17 02: 33; Admin Dose 1 EA; Start 01/07/17 at 02:00 Furosemide (Lasix) 20 mg DAILY PO ; Start 01/07/17 at 09:00; Status Future Hold Bisacodyl (Dulcolax Supp) 10 mg DAILY PRN [place] CONSTIPATION; Start 01/06/17 at 11 :30 Guaifenesin (Robitussin Liquid Cup) 100 mg Q6H PRN PO COUGH Last administered on 01/08/17 07:54; Admin Dose 100 MG; Start 01/06/17 at 11:30 Levothyroxine Sodium (Synthroid) 112 mcg DAILY@06 PO Last administered on 05:49; Admin Dose 112 MCG; Start 01/07/17 at 06:00 Lisinopril (Zestril) 2.5 mg DAILY PO Last administered on 01/18/17 08:18; Admin Dose 2.5 MG; Start 01/07/17 at 09:00 Senna (Senokot) 2 tab HS PO Last administered on 01/22/17 21:34; Admin Dose 2 TAB; Start 01/06/17 at 21:00 Miscellaneous Information 1 ea NOTE XX ; Start 01/06/17 at 12:00 Glucose (Glutose) 15 gm Q15M PRN PO DECREASED GLUCOSE Last administered on 17:30; Admin Dose 15 GM; Start 01/06/17 at 12:00 Glucose (Glutose) 22.5 gm Q15M PRN PO DECREASED GLUCOSE Last administered on 03:34; Admin Dose 22.5 GM; Start 01/06/17 at 12:00 Dextrose (D50w Syringe) 25 ml Q15M PRN IV DECREASED GLUCOSE; Start 01/06/17 at 12:00 Dextrose (D50w Syringe) 50 ml Q15M PRN IV DECREASED GLUCOSE Last administered on 01/15/17 11:52; Admin Dose 50 ML; Start 01/06/17 at 12:00 Glucagon (Glucagen) 1 mg Q15M PRN IM DECREASED GLUCOSE; Start 01/06/17 at 12:00 Glucose (Glutose) 15 gm Q15M PRN BUCCAL DECREASED GLUCOSE Last administered on 01/10/17 07:07; Admin Dose 15 GM; Start 01/06/17 at 12:00 Atorvastatin Calcium (Lipitor) 40 mg HS PO Last administered on 01/22/17 21:34 ; Admin Dose 40 MG; Start 01/14/17 at 21:00 Lidocaine (Xylocaine 4% (Mpf)) 5 ml ONCE PRN HHN BREATHING TREATMENT Last administered on 01/15/17 09:38; Admin Dose 5 ML; Start 01/15/17 at 09:30 Alendronate Sodium (Fosamax) 70 mg We@0630 PO Last administered on 01/21/17 07: 00; Admin Dose 70 MG; Start 01/21/17 at 06:30 Polyethylene Glycol (Miralax) 17 gm DAILY PRN PO constipation; Start 01/20/17 at 18:30 Enoxaparin Sodium (Lovenox) 40 mg DAILY SC Last administered on 01/21/17 09:37 ; Admin Dose 40 MG; Start 01/21/17 at 09:00 Insulin Glargine (Lantus) 13 unit DAILY@08 SC Last administered on 01/23/17 08 :19; Admin Dose 13 UNIT; Start 01/22/17 at 08:00 DARYL MYERS MD Jan 23, 2017 18:29
[2017-01-23 20:00] VITALS: BP 102/55; RESP 18
[2017-01-23] MEDS: NPH, HUMAN INSULIN ISOPHANE 3ML VIAL SC SCH (20:00)
[2017-01-23] MEDS: ATORVASTATIN 40 MG TAB PO SCH (22:35)
[2017-01-23] MEDS: SENNA TAB PO SCH (22:36)
[2017-01-24 02:00] VITALS: BP 120/58; RESP 18
[2017-01-24] MEDS: ACCU-CHEK XX SCH ×4 (02:00→20:05)
[2017-01-24] MEDS: LEVOTHYROXINE 112 MCG TAB PO SCH (05:32)
[2017-01-24 07:57] VITALS: BP 104/51; RESP 18
[2017-01-24] MEDS: ASPIRIN (EC) 81 MG TAB PO SCH (08:15)
[2017-01-24] MEDS: DULOXETINE 20 MG CAP DR PO SCH (08:15)
[2017-01-24] MEDS: GABAPENTIN 300 MG CAP PO SCH ×3 (08:15→20:31)
[2017-01-24] MEDS: INSULIN GLARGINE [LANtus] 3 ML PEN SC SCH (08:20)
[2017-01-24] MEDS: INSULIN ASPART [NOVOLOG] 3 ML PEN SC SCH ×7 (08:21→20:27)
[2017-01-24] MEDS: ENOXAPARIN 40 MG/0.4 ML SYG SC SCH (08:22)
[2017-01-24] MEDS: LISINOPRIL 5 MG TAB PO SCH (08:26)
--- NOTE | 2017-01-24 11:03 | PN ---
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 Patient is at high risk for undergoing coronary artery bypass graft I had a long discussion with her Her risks are especially high because of the carotid occlusion and cardiomyopathy Plan for coronary artery bypass grafting on Thursday I would discuss options with Dr. Adames and Dr. Sanz Problems: Subjective 24 Hr Interval Summary Constitutional: improved Pain Control: mild Exam/Review of Systems Vital Signs Vitals Vital Signs Date Time Temp Pulse Resp B/P Pulse Ox O2 Delivery O2 Flow Rate FiO2 01/24/17 07:57 97.4 84 18 104/51 97 Intake and Output 01/23/17 01/23/17 01/24/17 15:00 23:00 07:00 Intake Total 750 ml Balance 750 ml Exam ENMT: mucosa pink and moist, nl external ears & nose, nl lips & teeth, nl nasal mucosa & septum Neck: non-tender, supple Respiratory: clear to auscultation, normal air movement Cardiovascular: nl pulses, regular rate and rhythm Results Result Diagram: 01/23/1760501/23/17605 CHELA ALVARENGA MD Jan 24, 2017 11:03
[2017-01-24 14:00] VITALS: BP 105/52; RESP 16
--- NOTE | 2017-01-24 14:27 | CONS ---
Date/Time of Note Date/Time of Note DATE: 01/24/17 TIME: 14:25 Assessment/Plan Assessment/Plan Additional Assessment/Plan CAD with Triple vessel disease Carotid artery disease Neck Mass Hypertension Diabetes Dyslipidemia Hemodynamically stable Awaiting Bypass surgery this Thursday Brilinta stopped Continue Lisinopril Continue Levothyroxine Continue Insulin Continue Lipitor Continue GI and DVT Prophylaxis Consultation Date/Type/Reason Admit Date/Time Jan 06, 2017 at 10:49 Constitutional: no complaints Eyes: no complaints ENT: no complaints Respiratory: no complaints Cardiovascular: no complaints Gastrointestinal: no complaints Genitourinary: no complaints Musculoskeletal: no complaints Skin: no complaints Neurologic: no complaints Endocrine: other (notes had string cheese at hs and it did not spike glucose. Wants carb-free hs snack.) Psychological: nl mood/affect, no complaints Past Medical History Medical History: angina, congestive heart failure (systolic w/ EF 25%), coronary artery disease (w/ NSTEMI), diabetes (T1, multiple episodes of DKA), high cholesterol, hypothyroid, other (COPD) Past Surgical History Past Surgical Hx: other (c-sect, T&A) Social History Alcohol Use: none Smoking Status: Current every day smoker (1.5 ppd x 30 y) Drug Use: none Exam/Review of Systems Vital Signs Vitals Vital Signs Date Time Temp Pulse Resp B/P Pulse Ox O2 Delivery O2 Flow Rate FiO2 01/24/17 14:00 98.1 89 16 105/52 97 Intake and Output 01/23/17 01/23/17 01/24/17 15:00 23:00 07:00 Intake Total 750 ml Balance 750 ml Exam Constitutional: alert, oriented Psych: no complaints Head: atraumatic, normocephalic Neck: non-tender, supple Respiratory: clear to auscultation Cardiovascular: regular rate and rhythm Gastrointestinal: nl liver, spleen, non-tender, soft Extremities: normal pulses Results Result Diagram: 01/23/17 0606 01/23/17 0606 Results 24 hrs Laboratory Tests Test 01/23/17 16:27 01/23/17 17:23 01/23/17 22:09 01/24/17 02:08 Bedside Glucose 93 71 96 308 H Test 01/24/17 08:14 01/24/17 10:13 01/24/17 12:11 01/24/17 14:16 Bedside Glucose 265 H 270 H 130 103 Medications Medications Current Medications Ondansetron HCl (Zofran Inj) 4 mg Q6H PRN IV NAUSEA AND/OR VOMITING; Start at 11:30 Acetaminophen (Tylenol Tab) 650 mg Q6H PRN PO PAIN LEVEL 1-3 OR FEVER; Start at 11:30 Acetaminophen (Tylenol Supp) 650 mg Q6H PRN [place] PAIN LEVEL 1-3 OR FEVER; Start 01/06/17 at 11:30 Aspirin (Halfprin) 81 mg DAILY PO Last administered on 01/24/17 08:15; Admin Dose 81 MG; Start 01/07/17 at 09:00 Duloxetine HCl (Cymbalta) 20 mg DAILY PO Last administered on 01/24/17 08:15; Admin Dose 20 MG; Start 01/07/17 at 09:00 Gabapentin (Neurontin) 300 mg TID PO Last administered on 01/24/17 12:14; Admin Dose 300 MG; Start 01/06/17 at 13:00 Metoprolol Tartrate (Lopressor) 12.5 mg BID PO ; Start 01/06/17 at 21:00; Status Future Hold Ticagrelor (Brilinta) 90 mg BID PO Last administered on 01/16/17 08:21; Admin Dose 90 MG; Start 01/06/17 at 21:00; Status Future Hold Diagnostic Test (Pha) (Accu-Chek) 1 ea 02 XX Last administered on 01/23/17 02: 33; Admin Dose 1 EA; Start 01/07/17 at 02:00 Furosemide (Lasix) 20 mg DAILY PO ; Start 01/07/17 at 09:00; Status Future Hold Bisacodyl (Dulcolax Supp) 10 mg DAILY PRN [place] CONSTIPATION; Start 01/06/17 at 11 :30 Guaifenesin (Robitussin Liquid Cup) 100 mg Q6H PRN PO COUGH Last administered on 01/08/17 07:54; Admin Dose 100 MG; Start 01/06/17 at 11:30 Levothyroxine Sodium (Synthroid) 112 mcg DAILY@06 PO Last administered on 05:32; Admin Dose 112 MCG; Start 01/07/17 at 06:00 Lisinopril (Zestril) 2.5 mg DAILY PO Last administered on 01/18/17 08:18; Admin Dose 2.5 MG; Start 01/07/17 at 09:00 Senna (Senokot) 2 tab HS PO Last administered on 01/23/17 22:36; Admin Dose 2 TAB; Start 01/06/17 at 21:00 Miscellaneous Information 1 ea NOTE XX ; Start 01/06/17 at 12:00 Glucose (Glutose) 15 gm Q15M PRN PO DECREASED GLUCOSE Last administered on 17:30; Admin Dose 15 GM; Start 01/06/17 at 12:00 Glucose (Glutose) 22.5 gm Q15M PRN PO DECREASED GLUCOSE Last administered on 03:34; Admin Dose 22.5 GM; Start 01/06/17 at 12:00 Dextrose (D50w Syringe) 25 ml Q15M PRN IV DECREASED GLUCOSE; Start 01/06/17 at 12:00 Dextrose (D50w Syringe) 50 ml Q15M PRN IV DECREASED GLUCOSE Last administered on 01/15/17 11:52; Admin Dose 50 ML; Start 01/06/17 at 12:00 Glucagon (Glucagen) 1 mg Q15M PRN IM DECREASED GLUCOSE; Start 01/06/17 at 12:00 Glucose (Glutose) 15 gm Q15M PRN BUCCAL DECREASED GLUCOSE Last administered on 01/10/17 07:07; Admin Dose 15 GM; Start 01/06/17 at 12:00 Atorvastatin Calcium (Lipitor) 40 mg HS PO Last administered on 01/23/17 22:35 ; Admin Dose 40 MG; Start 01/14/17 at 21:00 Lidocaine (Xylocaine 4% (Mpf)) 5 ml ONCE PRN HHN BREATHING TREATMENT Last administered on 01/15/17 09:38; Admin Dose 5 ML; Start 01/15/17 at 09:30 Alendronate Sodium (Fosamax) 70 mg We@0630 PO Last administered on 01/21/17 07: 00; Admin Dose 70 MG; Start 01/21/17 at 06:30 Polyethylene Glycol (Miralax) 17 gm DAILY PRN PO constipation; Start 01/20/17 at 18:30 Enoxaparin Sodium (Lovenox) 40 mg DAILY SC Last administered on 01/21/17 09:37 ; Admin Dose 40 MG; Start 01/21/17 at 09:00 Insulin Glargine (Lantus) 13 unit DAILY@08 SC Last administered on 01/24/17 08 :20; Admin Dose 13 UNIT; Start 01/22/17 at 08:00 Insulin Human NPH (Humulin N) 6 unit DAILY@20 SC ; Start 01/23/17 at 20:00 HALI ALVARADO M.D. Jan 24, 2017 14:27
--- NOTE | 2017-01-24 17:40 | PN ---
Date/Time of Note Date/Time of Note DATE: 01/24/17 TIME: 17:39 Assessment/Plan VTE Prophylaxis VTE Prophylaxis Intervention: SCD's Lines/Catheters IV Catheter Type (from Nrs): Saline Lock Urinary Cath still in place: No Assessment/Plan Assessment/Plan 56 yo F with poorly controlled DM2 admitted for NSTEMI in setting DKA. Found to have multivessel CAD. Awaiting CABG. Also with incidental finding of L sided subglottic lesion, likely 2/2 prolonged intubation and not in need of additional w/u per ENT 1. multivessel CAD, recent NSTEMI, ICM with EF IMPROVED from <25% to 40%. CABG pending -cont current cardiac meds-->bb/lasix on hold for prior episodes of orthostasis earlier this admission Brilinta on hold given possible impending surgeries - tentative plan for Thursday. 2. L subglottic lesion:ENT states 2/2 prolonged intubation and does not require further w/u 3. Severe obstructive and restrictive pulmonary disease. -Continue bronchodilators. 4. DM with wide BG fluctuations -endo on consult for aid with insulin management 5. Hypothyroidism. -Continue Synthroid. 6. Chronic anemia. cpm DVT prophylaxis: LMWH Subjective 24 Hr Interval Summary Free Text/Dictation glad to hear her EF is better Exam/Review of Systems Vital Signs Vitals Vital Signs Date Time Temp Pulse Resp B/P Pulse Ox O2 Delivery O2 Flow Rate FiO2 01/24/17 14:00 98.1 89 16 105/52 97 Intake and Output 01/23/17 01/23/17 01/24/17 15:00 23:00 07:00 Intake Total 750 ml Balance 750 ml Exam nad sitting up in bed no mrg lungs clear abd soft no rashes Results Result Diagram: 01/23/17 0606 01/23/17 0606 Results 24 hrs Laboratory Tests Test 01/23/17 22:09 01/24/17 02:08 01/24/17 08:14 01/24/17 10:13 Bedside Glucose 96 308 H 265 H 270 H Test 01/24/17 12:11 01/24/17 14:16 01/24/17 17:34 Bedside Glucose 130 103 108 Medications Medications Current Medications Ondansetron HCl (Zofran Inj) 4 mg Q6H PRN IV NAUSEA AND/OR VOMITING; Start at 11:30 Acetaminophen (Tylenol Tab) 650 mg Q6H PRN PO PAIN LEVEL 1-3 OR FEVER; Start at 11:30 Acetaminophen (Tylenol Supp) 650 mg Q6H PRN [place] PAIN LEVEL 1-3 OR FEVER; Start 01/06/17 at 11:30 Aspirin (Halfprin) 81 mg DAILY PO Last administered on 01/24/17 08:15; Admin Dose 81 MG; Start 01/07/17 at 09:00 Duloxetine HCl (Cymbalta) 20 mg DAILY PO Last administered on 01/24/17 08:15; Admin Dose 20 MG; Start 01/07/17 at 09:00 Gabapentin (Neurontin) 300 mg TID PO Last administered on 01/24/17 12:14; Admin Dose 300 MG; Start 01/06/17 at 13:00 Metoprolol Tartrate (Lopressor) 12.5 mg BID PO ; Start 01/06/17 at 21:00; Status Future Hold Ticagrelor (Brilinta) 90 mg BID PO Last administered on 01/16/17 08:21; Admin Dose 90 MG; Start 01/06/17 at 21:00; Status Future Hold Diagnostic Test (Pha) (Accu-Chek) 1 ea 02 XX Last administered on 01/23/17 02: 33; Admin Dose 1 EA; Start 01/07/17 at 02:00 Furosemide (Lasix) 20 mg DAILY PO ; Start 01/07/17 at 09:00; Status Future Hold Bisacodyl (Dulcolax Supp) 10 mg DAILY PRN [place] CONSTIPATION; Start 01/06/17 at 11 :30 Guaifenesin (Robitussin Liquid Cup) 100 mg Q6H PRN PO COUGH Last administered on 01/08/17 07:54; Admin Dose 100 MG; Start 01/06/17 at 11:30 Levothyroxine Sodium (Synthroid) 112 mcg DAILY@06 PO Last administered on 05:32; Admin Dose 112 MCG; Start 01/07/17 at 06:00 Lisinopril (Zestril) 2.5 mg DAILY PO Last administered on 01/18/17 08:18; Admin Dose 2.5 MG; Start 01/07/17 at 09:00 Senna (Senokot) 2 tab HS PO Last administered on 01/23/17 22:36; Admin Dose 2 TAB; Start 01/06/17 at 21:00 Miscellaneous Information 1 ea NOTE XX ; Start 01/06/17 at 12:00 Glucose (Glutose) 15 gm Q15M PRN PO DECREASED GLUCOSE Last administered on 17:30; Admin Dose 15 GM; Start 01/06/17 at 12:00 Glucose (Glutose) 22.5 gm Q15M PRN PO DECREASED GLUCOSE Last administered on 03:34; Admin Dose 22.5 GM; Start 01/06/17 at 12:00 Dextrose (D50w Syringe) 25 ml Q15M PRN IV DECREASED GLUCOSE; Start 01/06/17 at 12:00 Dextrose (D50w Syringe) 50 ml Q15M PRN IV DECREASED GLUCOSE Last administered on 01/15/17 11:52; Admin Dose 50 ML; Start 01/06/17 at 12:00 Glucagon (Glucagen) 1 mg Q15M PRN IM DECREASED GLUCOSE; Start 01/06/17 at 12:00 Glucose (Glutose) 15 gm Q15M PRN BUCCAL DECREASED GLUCOSE Last administered on 01/10/17 07:07; Admin Dose 15 GM; Start 01/06/17 at 12:00 Atorvastatin Calcium (Lipitor) 40 mg HS PO Last administered on 01/23/17 22:35 ; Admin Dose 40 MG; Start 01/14/17 at 21:00 Lidocaine (Xylocaine 4% (Mpf)) 5 ml ONCE PRN HHN BREATHING TREATMENT Last administered on 01/15/17 09:38; Admin Dose 5 ML; Start 01/15/17 at 09:30 Alendronate Sodium (Fosamax) 70 mg We@0630 PO Last administered on 01/21/17 07: 00; Admin Dose 70 MG; Start 01/21/17 at 06:30 Polyethylene Glycol (Miralax) 17 gm DAILY PRN PO constipation; Start 01/20/17 at 18:30 Enoxaparin Sodium (Lovenox) 40 mg DAILY SC Last administered on 01/21/17 09:37 ; Admin Dose 40 MG; Start 01/21/17 at 09:00 Insulin Glargine (Lantus) 13 unit DAILY@08 SC Last administered on 01/24/17 08 :20; Admin Dose 13 UNIT; Start 01/22/17 at 08:00 Insulin Human NPH (Humulin N) 6 unit DAILY@20 SC ; Start 01/23/17 at 20:00 ROBEL PETTY MD Jan 24, 2017 17:40
[2017-01-24 20:28] VITALS: BP 101/49; RESP 18
[2017-01-24] MEDS: NPH, HUMAN INSULIN ISOPHANE 3ML VIAL SC SCH (20:29)
[2017-01-24] MEDS: ATORVASTATIN 40 MG TAB PO SCH (20:31)
[2017-01-24] MEDS: SENNA TAB PO SCH (20:32)
[2017-01-25 02:00] VITALS: BP 118/58; RESP 18
[2017-01-25] MEDS: ACCU-CHEK XX SCH ×4 (02:00→20:05)
[2017-01-25] MEDS: LEVOTHYROXINE 112 MCG TAB PO SCH (05:25)
[2017-01-25] MEDS: INSULIN ASPART [NOVOLOG] 3 ML PEN SC SCH ×7 (08:23→21:00)
[2017-01-25] MEDS: INSULIN GLARGINE [LANtus] 3 ML PEN SC SCH (08:25)
[2017-01-25] MEDS: DULOXETINE 20 MG CAP DR PO SCH (08:31)
[2017-01-25] MEDS: ENOXAPARIN 40 MG/0.4 ML SYG SC SCH (08:32)
[2017-01-25] MEDS: ASPIRIN (EC) 81 MG TAB PO SCH (08:32)
[2017-01-25] MEDS: GABAPENTIN 300 MG CAP PO SCH ×3 (08:32→21:22)
[2017-01-25] MEDS: LISINOPRIL 5 MG TAB PO SCH (08:38)
[2017-01-25 08:53] VITALS: BP 101/50; RESP 18
--- NOTE | 2017-01-25 10:25 | PN ---
Date/Time of Note Date/Time of Note DATE: 01/25/17 TIME: 10:24 Assessment/Plan VTE Prophylaxis VTE Prophylaxis Intervention: SCD's Lines/Catheters IV Catheter Type (from Nrs): Saline Lock Urinary Cath still in place: No Assessment/Plan Assessment/Plan 56 yo F with poorly controlled DM2 admitted for NSTEMI in setting DKA. Found to have multivessel CAD. Awaiting CABG. Also with incidental finding of L sided subglottic lesion, likely 2/2 prolonged intubation and not in need of additional w/u per ENT 1. multivessel CAD, recent NSTEMI, ICM with EF IMPROVED from <25% to 40%. CABG pending -cont current cardiac meds-->bb/lasix on hold for prior episodes of orthostasis earlier this admission Brilinta on hold given possible impending surgeries - tentative plan for CABG TOMORROW 2. L subglottic lesion:ENT states 2/2 prolonged intubation and does not require further w/u 3. Severe obstructive and restrictive pulmonary disease. -Continue bronchodilators. 4. DM with wide BG fluctuations -endo on consult for aid with insulin management 5. Hypothyroidism. -Continue Synthroid. 6. Chronic anemia. cpm DVT prophylaxis: LMWH Subjective 24 Hr Interval Summary Free Text/Dictation In good spirits Exam/Review of Systems Vital Signs Vitals Vital Signs Date Time Temp Pulse Resp B/P Pulse Ox O2 Delivery O2 Flow Rate FiO2 01/25/17 08:53 98.2 87 18 101/50 96 Intake and Output 01/24/17 01/24/17 01/25/17 15:00 23:00 07:00 Intake Total 300 ml 1200 ml 300 ml Balance 300 ml 1200 ml 300 ml Exam nad no mrg lungs clear abd soft no rashes Results Result Diagram: 01/23/17 0606 01/23/17 0606 Results 24 hrs Laboratory Tests Test 01/24/17 12:11 01/24/17 14:16 01/24/17 17:34 01/24/17 20:17 Bedside Glucose 130 103 108 166 Test 01/25/17 02:05 01/25/17 08:17 01/25/17 10:20 Bedside Glucose 84 168 130 Medications Medications Current Medications Ondansetron HCl (Zofran Inj) 4 mg Q6H PRN IV NAUSEA AND/OR VOMITING; Start at 11:30 Acetaminophen (Tylenol Tab) 650 mg Q6H PRN PO PAIN LEVEL 1-3 OR FEVER; Start at 11:30 Acetaminophen (Tylenol Supp) 650 mg Q6H PRN [place] PAIN LEVEL 1-3 OR FEVER; Start 01/06/17 at 11:30 Aspirin (Halfprin) 81 mg DAILY PO Last administered on 01/25/17 08:32; Admin Dose 81 MG; Start 01/07/17 at 09:00 Duloxetine HCl (Cymbalta) 20 mg DAILY PO Last administered on 01/25/17 08:31; Admin Dose 20 MG; Start 01/07/17 at 09:00 Gabapentin (Neurontin) 300 mg TID PO Last administered on 01/25/17 08:32; Admin Dose 300 MG; Start 01/06/17 at 13:00 Metoprolol Tartrate (Lopressor) 12.5 mg BID PO ; Start 01/06/17 at 21:00; Status Future Hold Ticagrelor (Brilinta) 90 mg BID PO Last administered on 01/16/17 08:21; Admin Dose 90 MG; Start 01/06/17 at 21:00; Status Future Hold Diagnostic Test (Pha) (Accu-Chek) 1 ea 02 XX Last administered on 01/23/17 02: 33; Admin Dose 1 EA; Start 01/07/17 at 02:00 Furosemide (Lasix) 20 mg DAILY PO ; Start 01/07/17 at 09:00; Status Future Hold Bisacodyl (Dulcolax Supp) 10 mg DAILY PRN [place] CONSTIPATION; Start 01/06/17 at 11 :30 Guaifenesin (Robitussin Liquid Cup) 100 mg Q6H PRN PO COUGH Last administered on 01/08/17 07:54; Admin Dose 100 MG; Start 01/06/17 at 11:30 Levothyroxine Sodium (Synthroid) 112 mcg DAILY@06 PO Last administered on 05:25; Admin Dose 112 MCG; Start 01/07/17 at 06:00 Lisinopril (Zestril) 2.5 mg DAILY PO Last administered on 01/18/17 08:18; Admin Dose 2.5 MG; Start 01/07/17 at 09:00 Senna (Senokot) 2 tab HS PO Last administered on 01/24/17 20:32; Admin Dose 2 TAB; Start 01/06/17 at 21:00 Miscellaneous Information 1 ea NOTE XX ; Start 01/06/17 at 12:00 Glucose (Glutose) 15 gm Q15M PRN PO DECREASED GLUCOSE Last administered on 17:30; Admin Dose 15 GM; Start 01/06/17 at 12:00 Glucose (Glutose) 22.5 gm Q15M PRN PO DECREASED GLUCOSE Last administered on 03:34; Admin Dose 22.5 GM; Start 01/06/17 at 12:00 Dextrose (D50w Syringe) 25 ml Q15M PRN IV DECREASED GLUCOSE; Start 01/06/17 at 12:00 Dextrose (D50w Syringe) 50 ml Q15M PRN IV DECREASED GLUCOSE Last administered on 01/15/17 11:52; Admin Dose 50 ML; Start 01/06/17 at 12:00 Glucagon (Glucagen) 1 mg Q15M PRN IM DECREASED GLUCOSE; Start 01/06/17 at 12:00 Glucose (Glutose) 15 gm Q15M PRN BUCCAL DECREASED GLUCOSE Last administered on 01/10/17 07:07; Admin Dose 15 GM; Start 01/06/17 at 12:00 Atorvastatin Calcium (Lipitor) 40 mg HS PO Last administered on 01/24/17 20:31 ; Admin Dose 40 MG; Start 01/14/17 at 21:00 Lidocaine (Xylocaine 4% (Mpf)) 5 ml ONCE PRN HHN BREATHING TREATMENT Last administered on 01/15/17 09:38; Admin Dose 5 ML; Start 01/15/17 at 09:30 Alendronate Sodium (Fosamax) 70 mg We@0630 PO Last administered on 01/21/17 07: 00; Admin Dose 70 MG; Start 01/21/17 at 06:30 Polyethylene Glycol (Miralax) 17 gm DAILY PRN PO constipation; Start 01/20/17 at 18:30 Enoxaparin Sodium (Lovenox) 40 mg DAILY SC Last administered on 01/21/17 09:37 ; Admin Dose 40 MG; Start 01/21/17 at 09:00 Insulin Glargine (Lantus) 13 unit DAILY@08 SC Last administered on 01/25/17 08 :25; Admin Dose 13 UNIT; Start 01/22/17 at 08:00 Insulin Human NPH (Humulin N) 6 unit DAILY@20 SC Last administered on 20:29; Admin Dose 6 UNIT; Start 01/23/17 at 20:00 ROBEL PETTY MD Jan 25, 2017 10:24
[2017-01-25 14:33] VITALS: BP 94/57; RESP 20
--- NOTE | 2017-01-25 16:08 | CONS ---
Date/Time of Note Date/Time of Note DATE: 01/25/17 TIME: 16:07 Assessment/Plan Assessment/Plan Additional Assessment/Plan CAD with Triple vessel disease Carotid artery disease Neck Mass Hypertension Diabetes Dyslipidemia Hemodynamically stable Awaiting Bypass surgery this Thursday Brilinta stopped Continue Lisinopril Continue Levothyroxine Continue Insulin Continue Lipitor Continue GI and DVT Prophylaxis Consultation Date/Type/Reason Admit Date/Time Jan 06, 2017 at 10:49 Initial Consult Date 01/16/17 Type of Consultation: Endocrinology Referring Provider: TANIYA OLMSTEAD Exam/Review of Systems Vital Signs Vitals Vital Signs Date Time Temp Pulse Resp B/P Pulse Ox O2 Delivery O2 Flow Rate FiO2 01/25/17 14:33 98.1 84 20 94/57 97 Intake and Output 01/24/17 01/24/17 01/25/17 15:00 23:00 07:00 Intake Total 300 ml 1200 ml 300 ml Balance 300 ml 1200 ml 300 ml Exam Constitutional: alert, oriented Head: atraumatic, normocephalic Respiratory: clear to auscultation Cardiovascular: regular rate and rhythm Gastrointestinal: nl liver, spleen, soft Extremities: normal pulses Results Result Diagram: 01/23/17 0606 01/23/17 0606 Results 24 hrs Laboratory Tests Test 01/24/17 17:34 01/24/17 20:17 01/25/17 02:05 01/25/17 08:17 Bedside Glucose 108 166 84 168 Test 01/25/17 10:20 01/25/17 11:54 01/25/17 13:39 Bedside Glucose 130 181 310 H Medications Medications Current Medications Ondansetron HCl (Zofran Inj) 4 mg Q6H PRN IV NAUSEA AND/OR VOMITING; Start at 11:30 Acetaminophen (Tylenol Tab) 650 mg Q6H PRN PO PAIN LEVEL 1-3 OR FEVER; Start at 11:30 Acetaminophen (Tylenol Supp) 650 mg Q6H PRN [place] PAIN LEVEL 1-3 OR FEVER; Start 01/06/17 at 11:30 Aspirin (Halfprin) 81 mg DAILY PO Last administered on 01/25/17 08:32; Admin Dose 81 MG; Start 01/07/17 at 09:00 Duloxetine HCl (Cymbalta) 20 mg DAILY PO Last administered on 01/25/17 08:31; Admin Dose 20 MG; Start 01/07/17 at 09:00 Gabapentin (Neurontin) 300 mg TID PO Last administered on 01/25/17 13:36; Admin Dose 300 MG; Start 01/06/17 at 13:00 Metoprolol Tartrate (Lopressor) 12.5 mg BID PO ; Start 01/06/17 at 21:00; Status Future Hold Ticagrelor (Brilinta) 90 mg BID PO Last administered on 01/16/17 08:21; Admin Dose 90 MG; Start 01/06/17 at 21:00; Status Future Hold Diagnostic Test (Pha) (Accu-Chek) 1 ea 02 XX Last administered on 01/23/17 02: 33; Admin Dose 1 EA; Start 01/07/17 at 02:00 Furosemide (Lasix) 20 mg DAILY PO ; Start 01/07/17 at 09:00; Status Future Hold Bisacodyl (Dulcolax Supp) 10 mg DAILY PRN [place] CONSTIPATION; Start 01/06/17 at 11 :30 Guaifenesin (Robitussin Liquid Cup) 100 mg Q6H PRN PO COUGH Last administered on 01/08/17 07:54; Admin Dose 100 MG; Start 01/06/17 at 11:30 Levothyroxine Sodium (Synthroid) 112 mcg DAILY@06 PO Last administered on 05:25; Admin Dose 112 MCG; Start 01/07/17 at 06:00 Lisinopril (Zestril) 2.5 mg DAILY PO Last administered on 01/18/17 08:18; Admin Dose 2.5 MG; Start 01/07/17 at 09:00 Senna (Senokot) 2 tab HS PO Last administered on 01/24/17 20:32; Admin Dose 2 TAB; Start 01/06/17 at 21:00 Miscellaneous Information 1 ea NOTE XX ; Start 01/06/17 at 12:00 Glucose (Glutose) 15 gm Q15M PRN PO DECREASED GLUCOSE Last administered on 17:30; Admin Dose 15 GM; Start 01/06/17 at 12:00 Glucose (Glutose) 22.5 gm Q15M PRN PO DECREASED GLUCOSE Last administered on 03:34; Admin Dose 22.5 GM; Start 01/06/17 at 12:00 Dextrose (D50w Syringe) 25 ml Q15M PRN IV DECREASED GLUCOSE; Start 01/06/17 at 12:00 Dextrose (D50w Syringe) 50 ml Q15M PRN IV DECREASED GLUCOSE Last administered on 01/15/17 11:52; Admin Dose 50 ML; Start 01/06/17 at 12:00 Glucagon (Glucagen) 1 mg Q15M PRN IM DECREASED GLUCOSE; Start 01/06/17 at 12:00 Glucose (Glutose) 15 gm Q15M PRN BUCCAL DECREASED GLUCOSE Last administered on 01/10/17 07:07; Admin Dose 15 GM; Start 01/06/17 at 12:00 Atorvastatin Calcium (Lipitor) 40 mg HS PO Last administered on 01/24/17 20:31 ; Admin Dose 40 MG; Start 01/14/17 at 21:00 Lidocaine (Xylocaine 4% (Mpf)) 5 ml ONCE PRN HHN BREATHING TREATMENT Last administered on 01/15/17 09:38; Admin Dose 5 ML; Start 01/15/17 at 09:30 Alendronate Sodium (Fosamax) 70 mg We@0630 PO Last administered on 01/21/17 07: 00; Admin Dose 70 MG; Start 01/21/17 at 06:30 Polyethylene Glycol (Miralax) 17 gm DAILY PRN PO constipation; Start 01/20/17 at 18:30 Enoxaparin Sodium (Lovenox) 40 mg DAILY SC Last administered on 01/21/17 09:37 ; Admin Dose 40 MG; Start 01/21/17 at 09:00 Insulin Glargine (Lantus) 13 unit DAILY@08 SC Last administered on 01/25/17 08 :25; Admin Dose 13 UNIT; Start 01/22/17 at 08:00 Insulin Human NPH (Humulin N) 6 unit DAILY@20 SC Last administered on 20:29; Admin Dose 6 UNIT; Start 01/23/17 at 20:00 HALI ALVARADO M.D. Jan 25, 2017 16:08
--- NOTE | 2017-01-25 17:06 | PN ---
Date/Time of Note Date/Time of Note DATE: 01/25/17 TIME: 17:05 Assessment/Plan Lines/Catheters IV Catheter Type (from Nrs): Saline Lock [place] in Place (from Nrsg): No Assessment/Plan Chief Complaint/Hosp Course Patient with coronary artery disease multiple other medical problem Carotid dupplex Occlusion of the right internal carotid artery just beyond its origin due to large plaque burden as seen on the prior MRI. Patient is at high risk for undergoing coronary artery bypass graft I had a long discussion with her Her risks are especially high because of the carotid occlusion and cardiomyopathy Plan for coronary artery bypass grafting on Thursday I would discuss options with Dr. Adames and Dr. Sanz Problems: Subjective 24 Hr Interval Summary Constitutional: improved Pain Control: mild Exam/Review of Systems Vital Signs Vitals Vital Signs Date Time Temp Pulse Resp B/P Pulse Ox O2 Delivery O2 Flow Rate FiO2 01/25/17 14:33 98.1 84 20 94/57 97 Intake and Output 01/24/17 01/24/17 01/25/17 15:00 23:00 07:00 Intake Total 300 ml 1200 ml 300 ml Balance 300 ml 1200 ml 300 ml Exam Neck: non-tender, supple Respiratory: clear to auscultation, normal air movement Cardiovascular: nl pulses, regular rate and rhythm Gastrointestinal: nl liver, spleen, non-tender, soft Results Result Diagram: 01/23/1760501/23/17605 CHELA ALVARENGA MD Jan 25, 2017 17:05
[2017-01-25] MEDS: NPH, HUMAN INSULIN ISOPHANE 3ML VIAL SC SCH (20:07)
[2017-01-25 20:22] VITALS: BP 108/54; RESP 20
[2017-01-25] MEDS: ATORVASTATIN 40 MG TAB PO SCH (21:22)
[2017-01-25] MEDS: SENNA TAB PO SCH (21:22)
[2017-01-25] MEDS: DEXTROSE 50% 50 ML SYRINGE IV PRN (22:44)
--- NOTE | 2017-01-25 23:29 | CONS ---
Date/Time of Note Date/Time of Note DATE: 01/25/17 TIME: 23:20 LATE ENTRY: PATIENT SEEN 01/24 AT 15:30 Assessment/Plan Assessment/Plan Problems: (1) Type 1 diabetes mellitus with diabetic polyneuropathy Status: Chronic Comment: CONTINUES TO EXPERIENCE AM GLYCEMIC EXCURSION LIKELY SECONDARY TO MANDIE PHENOMENON. aLSO NOTED TO HAVE A DROP IN BLOOD GLUCOSE LEVELS IN THE PM LIKELY REQUIRING LESS PRANDIAL INSULIN. Additional Assessment/Plan OF NOTE PATIENT'S NPH DOSE OF INSULIN HELD BY RN LAST NIGHT ALLOWING FOR MANDIE PHENOMENON EXCURSION TO OCCUR. WILL DECREASE PRANDIAL DOSE OF INSULIN AT DINNER , AND PATIENT TO RECEIVE NPH NIGHTLY. Consultation Date/Type/Reason Admit Date/Time Jan 06, 2017 at 10:49 Initial Consult Date 01/16/17 Type of Consultation: Endocrinology Reason for Consultation DM TYPE1 Referring Provider: TANIYA OLMSTEAD 24 HR Interval Summary Free Text/Dictation PATIENT WITHOUT COMPLAINTS TODAY. STATES A LITTLE WORRIED ABOUT THURSDAY'S SURGERY. Exam/Review of Systems Vital Signs Vitals Vital Signs Date Time Temp Pulse Resp B/P Pulse Ox O2 Delivery O2 Flow Rate FiO2 01/25/17 20:22 96.7 90 20 108/54 98 Intake and Output 01/24/17 01/24/17 01/25/17 15:00 23:00 07:00 Intake Total 300 ml 1200 ml 300 ml Balance 300 ml 1200 ml 300 ml Exam Constitutional: alert, oriented, well developed Eyes: EOMI, PERRL, nl conjunctiva Neck: supple Respiratory: clear to auscultation Cardiovascular: regular rate and rhythm Gastrointestinal: soft Musculoskeletal: nl extremities to inspection Extremities: normal pulses Results POC GLUCOSE REVIEWED Result Diagram: 01/23/17 0606 01/23/17 0606 Results 24 hrs Laboratory Tests Test 01/25/17 02:05 01/25/17 08:17 01/25/17 10:20 01/25/17 11:54 Bedside Glucose 84 168 130 181 Test 01/25/17 13:39 01/25/17 17:32 01/25/17 20:01 01/25/17 21:25 Bedside Glucose 310 H 234 H 102 57 L Test 01/25/17 22:09 01/25/17 22:28 01/25/17 23:04 01/25/17 23:17 Bedside Glucose 72 58 L 129 114 Medications Medications Current Medications Ondansetron HCl (Zofran Inj) 4 mg Q6H PRN IV NAUSEA AND/OR VOMITING; Start at 11:30 Acetaminophen (Tylenol Tab) 650 mg Q6H PRN PO PAIN LEVEL 1-3 OR FEVER; Start at 11:30 Acetaminophen (Tylenol Supp) 650 mg Q6H PRN [place] PAIN LEVEL 1-3 OR FEVER; Start 01/06/17 at 11:30 Aspirin (Halfprin) 81 mg DAILY PO Last administered on 01/25/17 08:32; Admin Dose 81 MG; Start 01/07/17 at 09:00 Duloxetine HCl (Cymbalta) 20 mg DAILY PO Last administered on 01/25/17 08:31; Admin Dose 20 MG; Start 01/07/17 at 09:00 Gabapentin (Neurontin) 300 mg TID PO Last administered on 01/25/17 21:22; Admin Dose 300 MG; Start 01/06/17 at 13:00 Metoprolol Tartrate (Lopressor) 12.5 mg BID PO ; Start 01/06/17 at 21:00; Status Future Hold Ticagrelor (Brilinta) 90 mg BID PO Last administered on 01/16/17 08:21; Admin Dose 90 MG; Start 01/06/17 at 21:00; Status Future Hold Diagnostic Test (Pha) (Accu-Chek) 1 ea 02 XX Last administered on 01/23/17 02: 33; Admin Dose 1 EA; Start 01/07/17 at 02:00 Furosemide (Lasix) 20 mg DAILY PO ; Start 01/07/17 at 09:00; Status Future Hold Bisacodyl (Dulcolax Supp) 10 mg DAILY PRN [place] CONSTIPATION; Start 01/06/17 at 11 :30 Guaifenesin (Robitussin Liquid Cup) 100 mg Q6H PRN PO COUGH Last administered on 01/08/17 07:54; Admin Dose 100 MG; Start 01/06/17 at 11:30 Levothyroxine Sodium (Synthroid) 112 mcg DAILY@06 PO Last administered on 05:25; Admin Dose 112 MCG; Start 01/07/17 at 06:00 Lisinopril (Zestril) 2.5 mg DAILY PO Last administered on 01/18/17 08:18; Admin Dose 2.5 MG; Start 01/07/17 at 09:00 Senna (Senokot) 2 tab HS PO Last administered on 01/25/17 21:22; Admin Dose 2 TAB; Start 01/06/17 at 21:00 Miscellaneous Information 1 ea NOTE XX ; Start 01/06/17 at 12:00 Glucose (Glutose) 15 gm Q15M PRN PO DECREASED GLUCOSE Last administered on 17:30; Admin Dose 15 GM; Start 01/06/17 at 12:00 Glucose (Glutose) 22.5 gm Q15M PRN PO DECREASED GLUCOSE Last administered on 03:34; Admin Dose 22.5 GM; Start 01/06/17 at 12:00 Dextrose (D50w Syringe) 25 ml Q15M PRN IV DECREASED GLUCOSE Last administered on 01/25/17 22:44; Admin Dose 25 ML; Start 01/06/17 at 12:00 Dextrose (D50w Syringe) 50 ml Q15M PRN IV DECREASED GLUCOSE Last administered on 01/15/17 11:52; Admin Dose 50 ML; Start 01/06/17 at 12:00 Glucagon (Glucagen) 1 mg Q15M PRN IM DECREASED GLUCOSE; Start 01/06/17 at 12:00 Glucose (Glutose) 15 gm Q15M PRN BUCCAL DECREASED GLUCOSE Last administered on 01/10/17 07:07; Admin Dose 15 GM; Start 01/06/17 at 12:00 Atorvastatin Calcium (Lipitor) 40 mg HS PO Last administered on 01/25/17 21:22 ; Admin Dose 40 MG; Start 01/14/17 at 21:00 Lidocaine (Xylocaine 4% (Mpf)) 5 ml ONCE PRN HHN BREATHING TREATMENT Last administered on 01/15/17 09:38; Admin Dose 5 ML; Start 01/15/17 at 09:30 Alendronate Sodium (Fosamax) 70 mg We@0630 PO Last administered on 01/21/17 07: 00; Admin Dose 70 MG; Start 01/21/17 at 06:30 Polyethylene Glycol (Miralax) 17 gm DAILY PRN PO constipation; Start 01/20/17 at 18:30 Enoxaparin Sodium (Lovenox) 40 mg DAILY SC Last administered on 01/21/17 09:37 ; Admin Dose 40 MG; Start 01/21/17 at 09:00 Insulin Glargine (Lantus) 13 unit DAILY@08 SC Last administered on 01/25/17 08 :25; Admin Dose 13 UNIT; Start 01/22/17 at 08:00 Insulin Human NPH 6 unit 6 unit DAILY@20 SC Last administered on 01/25/17 20: 07; Admin Dose 6 UNIT; Start 01/23/17 at 20:00 Epinephrine 4 mg/ Dextrose 250 ml @ 0 mls/hr INTRA-OP IV ; Start 01/26/17 at 07: 30; Stop 01/26/17 at 14:30 Insulin Human Regular 100 unit/ Sodium Chloride 100 ml @ 0 mls/hr INTRA-OP IV ; Start 01/26/17 at 07:30; Stop 01/26/17 at 14:30 Phenylephrine HCl/ Dextrose (Jovan-Syneph/D5W) 252 ml @ 0 mls/hr INTRA-OP IV ; Start 01/26/17 at 07:30; Stop 01/26/17 at 14:30 PAMELLA FULTON MD Jan 25, 2017 23:29
--- NOTE | 2017-01-25 23:34 | CONS ---
Date/Time of Note Date/Time of Note LATE ENTRY PATIENT SEEN AT 13:00 DATE: 01/25/17 TIME: 23:29 Assessment/Plan Assessment/Plan Problems: (1) Type 1 diabetes mellitus with diabetic polyneuropathy Status: Chronic Comment: BETTER AM GLYCEMIC CONTROL THIS MORNING. Additional Assessment/Plan PATIENT WILL LIKELY BE NPO FOR CABG TOMORROW WILL DECREASE BASAL INSULIN BY 50% AND HOLD MEALTIME SHORT ACTING INSULIN. Consultation Date/Type/Reason Admit Date/Time Jan 06, 2017 at 10:49 Initial Consult Date 01/16/17 Type of Consultation: Endocrinology Reason for Consultation DM TYPE1 Referring Provider: TANIYA OLMSTEAD 24 HR Interval Summary Free Text/Dictation NERVOUS BUT FEELS OKAY Exam/Review of Systems Vital Signs Vitals Vital Signs Date Time Temp Pulse Resp B/P Pulse Ox O2 Delivery O2 Flow Rate FiO2 01/25/17 20:22 96.7 90 20 108/54 98 Intake and Output 01/24/17 01/24/17 01/25/17 15:00 23:00 07:00 Intake Total 300 ml 1200 ml 300 ml Balance 300 ml 1200 ml 300 ml Exam Constitutional: alert, oriented Eyes: EOMI, PERRL Neck: supple Respiratory: clear to auscultation Cardiovascular: regular rate and rhythm Gastrointestinal: soft Musculoskeletal: nl extremities to inspection Results POC G;LUCOSE REVIEWED Result Diagram: 01/23/17 0606 01/23/17 0606 Results 24 hrs Laboratory Tests Test 01/25/17 02:05 01/25/17 08:17 01/25/17 10:20 01/25/17 11:54 Bedside Glucose 84 168 130 181 Test 01/25/17 13:39 01/25/17 17:32 01/25/17 20:01 01/25/17 21:25 Bedside Glucose 310 H 234 H 102 57 L Test 01/25/17 22:09 01/25/17 22:28 01/25/17 23:04 01/25/17 23:17 Bedside Glucose 72 58 L 129 114 Medications Medications Current Medications Ondansetron HCl (Zofran Inj) 4 mg Q6H PRN IV NAUSEA AND/OR VOMITING; Start at 11:30 Acetaminophen (Tylenol Tab) 650 mg Q6H PRN PO PAIN LEVEL 1-3 OR FEVER; Start at 11:30 Acetaminophen (Tylenol Supp) 650 mg Q6H PRN [place] PAIN LEVEL 1-3 OR FEVER; Start 01/06/17 at 11:30 Aspirin (Halfprin) 81 mg DAILY PO Last administered on 01/25/17 08:32; Admin Dose 81 MG; Start 01/07/17 at 09:00 Duloxetine HCl (Cymbalta) 20 mg DAILY PO Last administered on 01/25/17 08:31; Admin Dose 20 MG; Start 01/07/17 at 09:00 Gabapentin (Neurontin) 300 mg TID PO Last administered on 01/25/17 21:22; Admin Dose 300 MG; Start 01/06/17 at 13:00 Metoprolol Tartrate (Lopressor) 12.5 mg BID PO ; Start 01/06/17 at 21:00; Status Future Hold Ticagrelor (Brilinta) 90 mg BID PO Last administered on 01/16/17 08:21; Admin Dose 90 MG; Start 01/06/17 at 21:00; Status Future Hold Diagnostic Test (Pha) (Accu-Chek) 1 ea 02 XX Last administered on 01/23/17 02: 33; Admin Dose 1 EA; Start 01/07/17 at 02:00 Furosemide (Lasix) 20 mg DAILY PO ; Start 01/07/17 at 09:00; Status Future Hold Bisacodyl (Dulcolax Supp) 10 mg DAILY PRN [place] CONSTIPATION; Start 01/06/17 at 11 :30 Guaifenesin (Robitussin Liquid Cup) 100 mg Q6H PRN PO COUGH Last administered on 01/08/17 07:54; Admin Dose 100 MG; Start 01/06/17 at 11:30 Levothyroxine Sodium (Synthroid) 112 mcg DAILY@06 PO Last administered on 05:25; Admin Dose 112 MCG; Start 01/07/17 at 06:00 Lisinopril (Zestril) 2.5 mg DAILY PO Last administered on 01/18/17 08:18; Admin Dose 2.5 MG; Start 01/07/17 at 09:00 Senna (Senokot) 2 tab HS PO Last administered on 01/25/17 21:22; Admin Dose 2 TAB; Start 01/06/17 at 21:00 Miscellaneous Information 1 ea NOTE XX ; Start 01/06/17 at 12:00 Glucose (Glutose) 15 gm Q15M PRN PO DECREASED GLUCOSE Last administered on 17:30; Admin Dose 15 GM; Start 01/06/17 at 12:00 Glucose (Glutose) 22.5 gm Q15M PRN PO DECREASED GLUCOSE Last administered on 03:34; Admin Dose 22.5 GM; Start 01/06/17 at 12:00 Dextrose (D50w Syringe) 25 ml Q15M PRN IV DECREASED GLUCOSE Last administered on 01/25/17 22:44; Admin Dose 25 ML; Start 01/06/17 at 12:00 Dextrose (D50w Syringe) 50 ml Q15M PRN IV DECREASED GLUCOSE Last administered on 01/15/17 11:52; Admin Dose 50 ML; Start 01/06/17 at 12:00 Glucagon (Glucagen) 1 mg Q15M PRN IM DECREASED GLUCOSE; Start 01/06/17 at 12:00 Glucose (Glutose) 15 gm Q15M PRN BUCCAL DECREASED GLUCOSE Last administered on 01/10/17 07:07; Admin Dose 15 GM; Start 01/06/17 at 12:00 Atorvastatin Calcium (Lipitor) 40 mg HS PO Last administered on 01/25/17 21:22 ; Admin Dose 40 MG; Start 01/14/17 at 21:00 Lidocaine (Xylocaine 4% (Mpf)) 5 ml ONCE PRN HHN BREATHING TREATMENT Last administered on 01/15/17 09:38; Admin Dose 5 ML; Start 01/15/17 at 09:30 Alendronate Sodium (Fosamax) 70 mg We@0630 PO Last administered on 01/21/17 07: 00; Admin Dose 70 MG; Start 01/21/17 at 06:30 Polyethylene Glycol (Miralax) 17 gm DAILY PRN PO constipation; Start 01/20/17 at 18:30 Enoxaparin Sodium (Lovenox) 40 mg DAILY SC Last administered on 01/21/17 09:37 ; Admin Dose 40 MG; Start 01/21/17 at 09:00 Insulin Glargine (Lantus) 13 unit DAILY@08 SC Last administered on 01/25/17 08 :25; Admin Dose 13 UNIT; Start 01/22/17 at 08:00 Insulin Human NPH 6 unit 6 unit DAILY@20 SC Last administered on 01/25/17t 20: 07; Admin Dose 6 UNIT; Start 01/23/17 at 20:00 Epinephrine 4 mg/ Dextrose 250 ml @ 0 mls/hr INTRA-OP IV ; Start 01/26/17 at 07: 30; Stop 01/26/17 at 14:30 Insulin Human Regular 100 unit/ Sodium Chloride 100 ml @ 0 mls/hr INTRA-OP IV ; Start 01/26/17 at 07:30; Stop 01/26/17 at 14:30 Phenylephrine HCl/ Dextrose (Jovan-Syneph/D5W) 252 ml @ 0 mls/hr INTRA-OP IV ; Start 01/26/17 at 07:30; Stop 01/26/17 at 14:30 PAMELLA FULTON MD Jan 25, 2017 23:34
[2017-01-26] VITALS (54 sets, daily range): BP systolic 86–149; BP diastolic 38–57; PULSE 94–114; RESP 14–29; TEMP 98.3–100.2
[2017-01-26] MEDS ORDERED: INSULIN GLARGINE [LANtus] 3 ML PEN SC ONE ×2 (02:00→07:00)
[2017-01-26] MEDS: ACCU-CHEK XX SCH ×8 (02:00→23:39)
[2017-01-26] MEDS: DEXTROSE 50% 50 ML SYRINGE IV PRN ×2 (02:30→13:56)
[2017-01-26 05:36] LABS: BASOPHIL # 0.1 10^3/ul (0.0-0.1); BASOPHILS % 1.1 % (0.0-2.0); EOSINOPHILS # 0.6 10^3/ul (0.0-0.5); EOSINOPHILS % 13.9 % (0.0-7.0); HEMATOCRIT 36.3 % (37.0-47.0); HEMOGLOBIN 11.5 g/dl (12.0-16.0); LYMPHOCYTES # 1.1 10^3/ul (0.8-2.9); MEAN CORPUSCULAR HEMOGLOBIN 30.4 pg (29.0-33.0); MEAN CORPUSCULAR HGB CONC 31.7 g/dl (32.0-37.0); MEAN PLATELET VOLUME 9.2 fl (7.4-10.4); MONOCYTE # 0.6 10^3/ul (0.3-0.9); MONOCYTES % 12.1 % (0.0-11.0); NEUTROPHIL # 2.3 10^3/ul (1.6-7.5); NEUTROPHILS % 48.7 % (39.0-77.0); PLATELET COUNT 276 10^3/UL (140-415); RED BLOOD COUNT 3.78 10^6/ul (4.20-5.40); RED CELL DISTRIBUTION WIDTH 14.9 % (11.5-14.5); WHITE BLOOD COUNT 4.6 10^3/ul (4.8-10.8)
[2017-01-26] MEDS: LEVOTHYROXINE 112 MCG TAB PO SCH (05:39)
[2017-01-26 05:55] LABS: INR 0.96; PROTIME 12.8 Sec (12.2-14.2)
[2017-01-26 05:56] LABS: PARTIAL THROMBOPLASTIN TIME 23.2 Sec (25.0-35.0)
[2017-01-26 06:06] LABS: ALBUMIN 3.6 g/dl (3.3-4.9); ALBUMIN/GLOBULIN RATIO 1.33; BILIRUBIN,INDIRECT 0.6 mg/dl (0-1.1); BILIRUBIN,TOTAL 0.6 mg/dl (0.2-1.3); CREATININE 0.51 mg/dl (0.44-1.00); TOTAL PROTEIN 6.3 g/dl (6.1-8.1)
[2017-01-26] MEDS ORDERED: GELATIN SIZE 100 SPONGE ONE (06:49)
[2017-01-26] MEDS ORDERED: PAPAVERINE 60 MG INJ ONE (06:49)
[2017-01-26] MEDS ORDERED: VANCOMYCIN 1 GM INJ ONE (06:49)
[2017-01-26] MEDS ORDERED: THROMBIN 5000 UNIT VIAL ONE (06:49)
[2017-01-26] MEDS ORDERED: HEPARIN 1000 UNITS/ML 10 ML INJ ONE ×3 (06:50→09:02)
[2017-01-26] MEDS ORDERED: INSULIN REGULAR, HUMAN 100 UNIT/1 ML 3ML VIAL ONE (07:00)
[2017-01-26] MEDS ORDERED: DOPamine-D5W 1.6 MG/ML 250 ML ONE (07:00)
[2017-01-26] MEDS ORDERED: NITROGLYCERIN 50 MG/D5W 250 ML BTL ONE (07:00)
[2017-01-26] MEDS ORDERED: MIDAZOLAM 5 ML ONE ×2 (07:28→09:22)
[2017-01-26] MEDS ORDERED: EPINEPHrine 4 MG in DEXTROSE 5% 246 ML IV SCH (07:30)
[2017-01-26] MEDS ORDERED: PHENYLephrine 20 MG in DEXTROSE 5% 250 ML IV SCH ×4 (07:30)
[2017-01-26] MEDS ORDERED: AMINOCAPROIC ACID 5 GM INJ ONE ×4 (07:30→10:54)
[2017-01-26] MEDS ORDERED: INSULIN HUMAN REGULAR 100 UNIT in SOD CHLORIDE 0.9% 99 ML IV SCH ×5 (07:30→20:30)
[2017-01-26] MEDS ORDERED: PHENYLephrine 20MG IN 250 ML 250 ML IV SCH (07:30)
[2017-01-26] MEDS ORDERED: ALBUMIN HUMAN 25% 200 ML ONE (07:30)
[2017-01-26] MEDS ORDERED: CA CHLORIDE 10% 10 ML SYRINGE ONE (07:30)
[2017-01-26] MEDS ORDERED: POTASSIUM CHLORIDE 40 MEQ INJ ONE (07:31)
[2017-01-26] MEDS ORDERED: PHENYLephrine 10 MG INJ ONE ×2 (07:32→07:37)
[2017-01-26] MEDS ORDERED: LIDOCAINE 100 MG SYRINGE ONE (07:32)
[2017-01-26] MEDS ORDERED: PHENYLephrine (100 MCG/ML) 5ML SYG ONE ×3 (07:33→09:31)
[2017-01-26] MEDS ORDERED: MANNITOL 25% 150 ML ONE (07:33)
[2017-01-26] MEDS ORDERED: MAGNESIUM SULFATE (MG) 50% 10 ML INJ ONE (07:33)
[2017-01-26] MEDS ORDERED: NA BICARBONATE 8.4% 50 ML SYG ONE (07:34)
[2017-01-26] MEDS: INSULIN ASPART [NOVOLOG] 3 ML PEN SC SCH ×6 (08:00→17:26)
[2017-01-26] MEDS ORDERED: CEFAZOLIN 1 GM INJ ONE (08:31)
[2017-01-26] MEDS: ENOXAPARIN 40 MG/0.4 ML SYG SC SCH (09:00)
[2017-01-26] MEDS: ASPIRIN (EC) 81 MG TAB PO SCH (09:00)
[2017-01-26] MEDS: DULOXETINE 20 MG CAP DR PO SCH (09:00)
[2017-01-26] MEDS: GABAPENTIN 300 MG CAP PO SCH ×3 (09:00→21:00)
[2017-01-26] MEDS: LISINOPRIL 5 MG TAB PO SCH (09:00)
[2017-01-26] MEDS ORDERED: PROTAMINE 250 MG INJ ONE (10:55)
[2017-01-26] MEDS ORDERED: ETOMIDATE 20 MG INJ ONE (11:36)
[2017-01-26] MEDS ORDERED: ROCURONIUM 50 MG INJ ONE (11:36)
[2017-01-26] MEDS ORDERED: LIDOCAINE 2% (SDV) 5 ML INJ ONE (11:36)
[2017-01-26] MEDS ORDERED: DIPHENHYDRAMINE 50 MG INJ IV PRN (12:00)
[2017-01-26] MEDS ORDERED: ONDANSETRON 4 MG INJ IV PRN ×2 (12:00→14:00)
[2017-01-26] MEDS ORDERED: ALBUMIN HUMAN 5% 250 ML IV PRN (12:00)
[2017-01-26] MEDS ORDERED: EPHEDrine SULFATE 50 MG/5 ML SYG IV PRN (12:00)
[2017-01-26] MEDS ORDERED: morphine 2 MG INJ IV PRN ×2 (12:00→14:00)
[2017-01-26] MEDS ORDERED: hydrALAzine 20 MG INJ IV PRN (12:00)
[2017-01-26] MEDS ORDERED: morphine 4 MG/ML VIAL IV PRN (12:00)
--- NOTE | 2017-01-26 12:16 | OPR ---
Date/Time of Note Date/Time of Note DATE: 01/26/17 TIME: 12:04 Operative Report Procedure Date: Jan 26, 2017 Preoperative Diagnosis Coronary artery disease Postoperative Diagnosis Coronary artery disease Operation Performed Coronary artery bypass grafting 1 DEE to LAD 2 Saphenous vein graft to the obtuse marginal branch of the circumflex 3 LAD endarterectomy 4 Endoscopic saphenous venous vein harvest from the left lower extremity Surgeon: CHELA ALVARENGA MD Gas Shovel Operator: PERRY HARTMAN MD Anesthesia Type: general Anesthesiologist: PELON MORRIS MD Transfusion Required: yes Specimen: none Grafts/Implants: none Complications: no Pt Condition Post Procedure: critical Indications Coronary artery disease Operative\Procedure Findings Dictated Procedure Description Patient was taken to the operating room after induction of general anesthesia prepped and draped in usual sterile fashion Timeout was called antibiotics was given and I started Simultaneously the sternal incision was made from the sternal notch down to the xiphoid process Saphenous vein was harvested using endoscopic technique from the left lower extremity The sternum was opened in the mid aspect of the sternum with the sternal saw Left internal mammary artery was harvested using electrocautery and titanium clips Pericardium opened patient fully heparin Cannulation sutures of 3-0 Prolene with pledgets were applied to the distal descending aorta with ascending aorta body of the right atrium and right atrial appendage After adequate documentation of a ACT the aorta was cannulated followed by two- stage venous cannula antegrade and retrograde cardioplegia cannula Patient was placed on cardiopulmonary bypass After stabilization on bypass because, apply to soft part of the aorta The heart was arrested using antegrade and retrograde cardioplegia given every 15-20 minutes supplemented by slush to the surface of the heart We proceeded with the distal anastomoses LAD endarterectomy had to be done The 2 anastomoses were done to 8 mm longitudinal artery 7-0 Prolene continuous suture technique End-to-side fashion The proximal anastomosis was done to a 4.5 mm punch 6-0 Prolene suture end-to-side fashion same cross-clamp Head was placed in steep Trendelenburg position cross-clamp removed the heart and the grafts to be the aired Patient came off bypass protamine given cannulas removed sutures tied 2 ventricular pacing wires 2 mediastinal chest tubes and 2 Star tubes were placed brought out through lower stab was secured to skin using silk sutures No evidence of any bleeding was noted Grafts appear to be pulsatile The sternum was irrigated using antibiotic solution and closed with 6 cable system #1 Vicryl suture for the deep tissues 2-0 Vicryl suture for subcu and 4- 0 Monocryl suture for running subcuticular skin closure The leg incision was closed in a similar fashion All needle counts and sponge counts was correct CHELA ALVARENGA MD Jan 26, 2017 12:15
--- NOTE | 2017-01-26 12:43 | RADRPT ---
PROCEDURE: XR Chest. CLINICAL INDICATION: POST CABG RM 8 O.R. TECHNIQUE: Single frontal view of the chest was obtained. COMPARISON: Chest x-ray from 01/14/2017 FINDINGS: New sternotomy wires and clips consistent with CABG are noted. The tip of an endotracheal tube is noted 4.5 cm above the amanda. There has been interval placement of a right internal jugular central venous line with a [place] c atheter through it. New mediastinal drains and a left-sided chest tube are noted. The heart and mediastinum are within normal limits. There are low lung volumes as well as increased prominence of a discoid opacity at the right lung ba se due to subsegmental atelectasis and / or infiltrate. There is increased prominence of interstitial markings, possibly due to a combination of congestive changes and vascular crowding. There is a new small right pleural effusion. IMPRESSION: Interval CABG. Interval intubation with the tip of the endotracheal tube 4.10 cm above the amanda. Interval placement of a right internal jugular central venous line with a [place] catheter through it as well as new mediastinal drains a left-sided chest tube. Low lung volumes with prominence of interstitial markings, possibly due to a combination of congesti ve changes and vascular crowding. New small right pleural effusion and increased prominence of a discoid opacity at the right lung bas e due to subsegmental atelectasis and / or infiltrate. RPTAT: EE Physician Makeda Date Time Electronically viewed and signed by Chadwick Resendiz Physician on 01/26/2017 12:42 RA/
[2017-01-26 13:39] LABS: AADO2 Arterial 272.4 mmHg (7.0-24.0); Arterial Base Excess 1.4 mmol/L (-3.0-3); Arterial COHb 0.2 % (0.0-3.0); Arterial Fraction of Oxyhgb 98.1 % (93.0-99.0); Arterial HCO3 26.7 mmol/L (22.0-26.0); Arterial MetHb 0.3 % (0.0-1.5); Arterial Total Hemglobin 11.6 g/dl (12.0-18.0); MODE VENT - AC
[2017-01-26 13:42] LABS: MODE VENT - AC; MetHgb Mixed Venous 0.4 %; Mixed Venous COHb 0.3 %; Mixed Venous Fraction OxyHgb 77.9 %; Mixed Venous Oxygen Sat 78.4 mmHG (65.0-75.0); Mixed Venous Total Hemglobin 11.1 g/dl; Sample Type BLMV
[2017-01-26] MEDS ORDERED: NITROGLYCERIN 50 MG/D5W (PMX) 250 ML IV SCH (14:00)
[2017-01-26 14:12] LABS: BASOPHILS % 0.3 % (0.0-2.0); EOSINOPHILS # 0.1 10^3/ul (0.0-0.5); EOSINOPHILS % 1.6 % (0.0-7.0); HEMATOCRIT 29.5 % (37.0-47.0); HEMOGLOBIN 9.9 g/dl (12.0-16.0); LYMPHOCYTES # 1.2 10^3/ul (0.8-2.9); LYMPHOCYTES % 15.4 % (15.0-51.0); MEAN CORPUSCULAR HEMOGLOBIN 30.4 pg (29.0-33.0); MEAN CORPUSCULAR HGB CONC 33.6 g/dl (32.0-37.0); MEAN CORPUSCULAR VOLUME 90.5 fl (82.0-101.0); MEAN PLATELET VOLUME 9.3 fl (7.4-10.4); MONOCYTE # 0.5 10^3/ul (0.3-0.9); NEUTROPHILS % 76.1 % (39.0-77.0); PLATELET COUNT 166 10^3/UL (140-415); RED BLOOD COUNT 3.26 10^6/ul (4.20-5.40); RED CELL DISTRIBUTION WIDTH 17.6 % (11.5-14.5)
[2017-01-26 14:28] LABS: INR 1.41; PROTIME 17.3 Sec (12.2-14.2); PT RATIO 1.4
[2017-01-26 14:32] LABS: ALBUMIN 3.5 g/dl (3.3-4.9); ALBUMIN/GLOBULIN RATIO 1.75; BILIRUBIN,INDIRECT 2.5 mg/dl (0-1.1); BILIRUBIN,TOTAL 2.5 mg/dl (0.2-1.3); CALCIUM 8.7 mg/dl (8.4-10.2); CREATININE 0.46 mg/dl (0.44-1.00); PHOSPHORUS 2.4 mg/dl (2.5-4.9); POTASSIUM 3.2 mmol/L (3.5-5.1); TOTAL PROTEIN 5.5 g/dl (6.1-8.1)
[2017-01-26] MEDS: POTASSIUM CHLORIDE 50 ML IVPB PRN ×3 (15:12→18:01)
--- NOTE | 2017-01-26 15:37 | PN ---
Date/Time of Note Date/Time of Note DATE: 01/26/17 TIME: 15:33 Assessment/Plan VTE Prophylaxis VTE Prophylaxis Intervention: LMWH Lines/Catheters IV Catheter Type (from [facility]): A Line Urinary Cath still in place: No Assessment/Plan Chief Complaint/Hosp Course Assessment/Plan: 56 yo F with poorly controlled DM2 admitted for NSTEMI in setting DKA. Found to have multivessel CAD. Awaiting CABG. Also with incidental finding of L sided subglottic lesion, likely 2/2 prolonged intubation and not in need of additional w/u per ENT 1. multivessel CAD, recent NSTEMI, ICM with EF IMPROVED from <25% to 40%. CABG being performed today. -Follow-up postop recommendations. -cont current cardiac meds-->bb/lasix on hold for prior episodes of orthostasis earlier this admission 2. L subglottic lesion:ENT states 2/2 prolonged intubation and does not require further w/u-monitor for now 3. Severe obstructive and restrictive pulmonary disease-improved overall -Continue bronchodilators. 4. DM-1 (likely) with wide BG fluctuations -endo on consult for aid with insulin [id number] their recommended 5. Hypothyroidism. -Continue Synthroid. 6. Chronic anemia. cpm DVT prophylaxis: LMWH Problems: Subjective 24 Hr Interval Summary Free Text/Dictation Per nursing, no acute events overnight. Patient presently off the floor at bypass surgery procedure. Exam/Review of Systems Vital Signs Vitals Vital Signs Date Time Temp Pulse Resp B/P Pulse Ox O2 Delivery O2 Flow Rate FiO2 01/26/17 12:32 109 01/26/17 02:57 98.4 18 107/51 97 Intake and Output 01/25/17 01/25/17 01/26/17 15:00 23:00 07:00 Intake Total 1140 ml 200 ml Balance 1140 ml 200 ml Exam Physical exam: Unable to be performed today because patient is off the floor at surgery presently Results Result Diagram: 01/26/17 1345 01/26/17 1345 Results 24 hrs Laboratory Tests Test 01/25/17 17:32 01/25/17 20:01 01/25/17 21:25 01/25/17 22:09 Bedside Glucose 234 H 102 57 L 72 Test 01/25/17 22:28 01/25/17 23:04 01/25/17 23:17 01/26/17 02:17 Bedside Glucose 58 L 129 114 81 Test 01/26/17 02:51 01/26/17 05:05 01/26/17 06:46 01/26/17 07:19 Bedside Glucose 159 144 160 White Blood Count 4.6 #L Red Blood Count 3.78 L Hemoglobin 11.5 L Hematocrit 36.3 L Mean Corpuscular Volume 96.0 Mean Corpuscular Hemoglobin 30.4 Mean Corpuscular Hemoglobin Concent 31.7 L Red Cell Distribution Width 14.9 H Platelet Count 276 Mean Platelet Volume 9.2 Neutrophils % 48.7 Lymphocytes % 24.0 Monocytes % 12.1 H Eosinophils % 13.9 H Basophils % 1.1 Nucleated Red Blood Cells % 0.0 Neutrophils # 2.3 Lymphocytes # 1.1 Monocytes # 0.6 Eosinophils # 0.6 H Basophils # 0.1 Nucleated Red Blood Cells # 0.0 Prothrombin Time 12.8 Prothrombin Time Ratio 1.0 INR International Normalized Ratio 0.96 Activated Partial Thromboplast Time 23.2 L Sodium Level 138 Potassium Level 4.0 Chloride Level 101 Carbon Dioxide Level 29 Anion Gap 12 Blood Urea Nitrogen 15 Creatinine 0.51 Glucose Level 132 Calcium Level 9.0 Total Bilirubin 0.6 Direct Bilirubin 0.00 Indirect Bilirubin 0.6 Aspartate Amino Transf (AST/SGOT) 28 Alanine Aminotransferase (ALT/SGPT) 34 Alkaline Phosphatase 75 Total Protein 6.3 Albumin 3.6 Globulin 2.70 Albumin/Globulin Ratio 1.33 Test 01/26/17 12:25 01/26/17 13:03 01/26/17 13:45 01/26/17 13:51 Bedside Glucose 136 64 L Blood Gas Specimen Source [facility] Arterial Blood Date Drawn 01/26/2017 1:25:04 PM Arterial Blood pH (Temp corrected) 7.390 Arterial Blood pCO2 (Temp correct) 45.2 H Arterial Blood pO2 (Temp corrected) 178.1 H Arterial Blood HCO3 26.7 H Arterial Blood Base Excess 1.4 Arterial Blood Oxygen Saturation 98.6 H Miguel Test N/A Arterial Blood Gas Puncture Site A-Line Arterial Blood Carboxyhemoglobin 0.2 Arterial Blood Methemoglobin 0.3 Mixed Venous Blood PO2 41.1 H Mixed Venous Blood O2 Saturation 78.4 H Mixed Venous Blood Total Hemoglobin 11.1 Mixed Venous Blood Oxyhemoglobin 77.9 Mixed Venous Bld Carboxyhemoglobin 0.3 Mixed Venous Blood Methemoglobin 0.4 Blood Gas A-a O2 Differential 272.4 H Oxyhemoglobin Percent 98.1 Total Hemoglobin 11.6 L Blood Gas Temperature 37.0 Blood Gas Respiration Rate 14.0 Blood Gas Actual Respiration Rate 14 Blood Gas Modality VENT - AC FiO2 70.0 Blood Gas Tidal Volume 500.0 Blood Gas Low PEEP Setting 5.0 Blood Gas Notified Whom JLD Blood Gas Notified Time 01/26/2017 1:42:50 PM White Blood Count 8.0 # Red Blood Count 3.26 L Hemoglobin 9.9 L Hematocrit 29.5 L Mean Corpuscular Volume 90.5 Mean Corpuscular Hemoglobin 30.4 Mean Corpuscular Hemoglobin Concent 33.6 Red Cell Distribution Width 17.6 H Platelet Count 166 # Mean Platelet Volume 9.3 Neutrophils % 76.1 Lymphocytes % 15.4 Monocytes % 6.0 Eosinophils % 1.6 Basophils % 0.3 Nucleated Red Blood Cells % 0.0 Neutrophils # (Manual) 6.1 Lymphocytes # 1.2 Monocytes # 0.5 Eosinophils # 0.1 Basophils # 0.0 Nucleated Red Blood Cells # 0.0 Prothrombin Time 17.3 #H Prothrombin Time Ratio 1.4 INR International Normalized Ratio 1.41 Activated Partial Thromboplast Time 29.1 Sodium Level 149 H Potassium Level 3.2 L Chloride Level 107 Carbon Dioxide Level 29 Anion Gap 16 Blood Urea Nitrogen 12 Creatinine 0.46 Glucose Level 73 # Calcium Level 8.7 Phosphorus Level 2.4 L Magnesium Level 3.0 H Total Bilirubin 2.5 H Direct Bilirubin 0.00 Indirect Bilirubin 2.5 H Aspartate Amino Transf (AST/SGOT) 34 Alanine Aminotransferase (ALT/SGPT) 31 Alkaline Phosphatase 46 Total Protein 5.5 L Albumin 3.5 Globulin 2.00 Albumin/Globulin Ratio 1.75 Test 01/26/17 14:19 01/26/17 14:33 Bedside Glucose 128 92 Medications Medications Current Medications Ondansetron HCl (Zofran Inj) 4 mg Q6H PRN IV NAUSEA AND/OR VOMITING; Start at 11:30 Acetaminophen (Tylenol Tab) 650 mg Q6H PRN PO PAIN LEVEL 1-3 OR FEVER; Start at 11:30 Acetaminophen (Tylenol Supp) 650 mg Q6H PRN [place] PAIN LEVEL 1-3 OR FEVER; Start 01/06/17 at 11:30 Aspirin (Halfprin) 81 mg DAILY PO Last administered on 01/25/17 08:32; Admin Dose 81 MG; Start 01/07/17 at 09:00 Duloxetine HCl (Cymbalta) 20 mg DAILY PO Last administered on 01/25/17 08:31; Admin Dose 20 MG; Start 01/07/17 at 09:00 Gabapentin (Neurontin) 300 mg TID PO Last administered on 01/25/17 21:22; Admin Dose 300 MG; Start 01/06/17 at 13:00 Metoprolol Tartrate (Lopressor) 12.5 mg BID PO ; Start 01/06/17 at 21:00; Status Future Hold Ticagrelor (Brilinta) 90 mg BID PO Last administered on 01/16/17 08:21; Admin Dose 90 MG; Start 01/06/17 at 21:00; Status Future Hold Diagnostic Test (Pha) (Accu-Chek) 1 ea 02 XX Last administered on 01/23/17 02: 33; Admin Dose 1 EA; Start 01/07/17 at 02:00 Furosemide (Lasix) 20 mg DAILY PO ; Start 01/07/17 at 09:00; Status Future Hold Bisacodyl (Dulcolax Supp) 10 mg DAILY PRN [place] CONSTIPATION; Start 01/06/17 at 11 :30 Guaifenesin (Robitussin Liquid Cup) 100 mg Q6H PRN PO COUGH Last administered on 01/08/17 07:54; Admin Dose 100 MG; Start 01/06/17 at 11:30 Levothyroxine Sodium (Synthroid) 112 mcg DAILY@06 PO Last administered on 05:25; Admin Dose 112 MCG; Start 01/07/17 at 06:00 Lisinopril (Zestril) 2.5 mg DAILY PO Last administered on 01/18/17 08:18; Admin Dose 2.5 MG; Start 01/07/17 at 09:00 Senna (Senokot) 2 tab HS PO Last administered on 01/25/17 21:22; Admin Dose 2 TAB; Start 01/06/17 at 21:00 Miscellaneous Information 1 ea NOTE XX ; Start 01/06/17 at 12:00 Glucose (Glutose) 15 gm Q15M PRN PO DECREASED GLUCOSE Last administered on 17:30; Admin Dose 15 GM; Start 01/06/17 at 12:00 Glucose (Glutose) 22.5 gm Q15M PRN PO DECREASED GLUCOSE Last administered on 03:34; Admin Dose 22.5 GM; Start 01/06/17 at 12:00 Dextrose (D50w Syringe) 25 ml Q15M PRN IV DECREASED GLUCOSE Last administered on 01/26/17 13:56; Admin Dose 25 ML; Start 01/06/17 at 12:00 Dextrose (D50w Syringe) 50 ml Q15M PRN IV DECREASED GLUCOSE Last administered on 01/15/17 11:52; Admin Dose 50 ML; Start 01/06/17 at 12:00 Glucagon (Glucagen) 1 mg Q15M PRN IM DECREASED GLUCOSE; Start 01/06/17 at 12:00 Glucose (Glutose) 15 gm Q15M PRN BUCCAL DECREASED GLUCOSE Last administered on 01/10/17 07:07; Admin Dose 15 GM; Start 01/06/17 at 12:00 Atorvastatin Calcium (Lipitor) 40 mg HS PO Last administered on 01/25/17 21:22 ; Admin Dose 40 MG; Start 01/14/17 at 21:00 Lidocaine (Xylocaine 4% (Mpf)) 5 ml ONCE PRN HHN BREATHING TREATMENT Last administered on 01/15/17 09:38; Admin Dose 5 ML; Start 01/15/17 at 09:30 Alendronate Sodium (Fosamax) 70 mg We@0630 PO Last administered on 01/21/17 07: 00; Admin Dose 70 MG; Start 01/21/17 at 06:30 Polyethylene Glycol (Miralax) 17 gm DAILY PRN PO constipation; Start 01/20/17 at 18:30 Enoxaparin Sodium (Lovenox) 40 mg DAILY SC Last administered on 01/21/17 09:37 ; Admin Dose 40 MG; Start 01/21/17 at 09:00 Insulin Glargine (Lantus) 13 unit DAILY@08 SC Last administered on 01/25/17 08 :25; Admin Dose 13 UNIT; Start 01/22/17 at 08:00; Status Future Hold Insulin Human NPH 6 unit 6 unit DAILY@20 SC Last administered on 8/13/17at 20: 07; Admin Dose 6 UNIT; Start 01/23/17 at 20:00 Potassium Chloride 40 meq/ Calcium Chloride 1 gm/Dextrose/ Sodium Chloride 1, 030 ml @ 60 mls/hr [id number] IV ; Start 01/26/17 at 15:30 Cefazolin Sodium (Ancef 1 Gm/50 ml (Pmx)) 50 ml @ 100 mls/hr Q8H IVPB ; Start 01/26/17 at 14:00; Stop 01/27/17 at 06:29 Morphine Sulfate (morphine) 1 mg Q2 PRN IV PAIN LEVEL 1-5; Start 01/26/17 at 14 :00 Morphine Sulfate (morphine) 2 mg Q2 PRN IV PAIN LEVEL 6-10; Start 01/26/17 at 14:00 Ondansetron HCl 4 mg 4 mg Q6H PRN IV NAUSEA AND/OR VOMITING; Start 01/26/17 at 14:00 Magnesium Sulfate/ Dextrose (Magnesium Sulfate 1 Gm/D5W) 100 ml @ 100 mls/hr PRN PRN IVPB PENDING LAB VALUE; Start 01/26/17 at 14:00 TANIYA OLMSTEAD Jan 26, 2017 15:37
[2017-01-26] MEDS: POTASSIUM CHLORIDE 40 MEQ, CALCIUM CHLORIDE 10% 1 GM in DEXTROSE 5%-0.225% NACL 1,000 ML IV SCH (15:46)
[2017-01-26] MEDS: CEFAZOLIN 1 GM/50 ML (PMX) 50 ML IVPB SCH ×2 (15:48→21:23)
--- NOTE | 2017-01-26 16:07 | CONS ---
Date/Time of Note Date/Time of Note DATE: 01/26/17 TIME: 16:04 Assessment/Plan Assessment/Plan Additional Assessment/Plan 1. CAD with Triple vessel disease - post Op now/ DEE/SVG - tolerated procedure well - con't to wean. 2. Carotid artery disease - no CP now, in good fluid status - con't to adjust Rx. 3. Neck Mass - no Rx needed - ENT r/o malignancy. 4Hypertension - well Rx, con't med rx 5. Diabetes - On ISS. might need gtt 6 CHF - chronic, good fluid staus now. Consultation Date/Type/Reason Admit Date/Time Jan 06, 2017 at 10:49 Type of Consultation: Endocrinology Referring Provider: TANIYA OLMSTEAD 24 HR Interval Summary Free Text/Dictation s/p CABG - tolerate dwell - con't post op care now. ROS: No fever, no chills, no nausea, no vomiting, no diarrhea/constipation No recent weight changes No chest pain, no PND, no orthopnea No dizziness, blurred vision No thirst, no heat or cold intolerance Exam/Review of Systems Vital Signs Vitals Vital Signs Date Time Temp Pulse Resp B/P Pulse Ox O2 Delivery O2 Flow Rate FiO2 01/26/17 14:50 99 14 100 70 01/26/17 02:57 98.4 107/51 Intake and Output 01/25/17 01/25/17 01/26/17 15:00 23:00 07:00 Intake Total 1140 ml 200 ml Balance 1140 ml 200 ml Exam General: WN/WD/NAD, AOx 1-2 eyes open HEENT: Unicetric/atraumatic/EOMI (does not follow commands) NECK: JVD elevated, no thyromegaly, intubated Lymph: no lymphadenopathy HEART: regular with no S3, II/ systolic murmur at apex LUNGS: Coarse sounds ABD: soft, NT, ND, +BS : Intact Neuro: non focal SKIN: chronic changes EXT: trace edema Results Result Diagram: 01/26/17 1345 01/26/17 1345 Results 24 hrs Laboratory Tests Test 01/25/17 17:32 01/25/17 20:01 01/25/17 21:25 01/25/17 22:09 Bedside Glucose 234 H 102 57 L 72 Test 01/25/17 22:28 01/25/17 23:04 01/25/17 23:17 01/26/17 02:17 Bedside Glucose 58 L 129 114 81 Test 01/26/17 02:51 01/26/17 05:05 01/26/17 06:46 01/26/17 07:19 Bedside Glucose 159 144 160 White Blood Count 4.6 #L Red Blood Count 3.78 L Hemoglobin 11.5 L Hematocrit 36.3 L Mean Corpuscular Volume 96.0 Mean Corpuscular Hemoglobin 30.4 Mean Corpuscular Hemoglobin Concent 31.7 L Red Cell Distribution Width 14.9 H Platelet Count 276 Mean Platelet Volume 9.2 Neutrophils % 48.7 Lymphocytes % 24.0 Monocytes % 12.1 H Eosinophils % 13.9 H Basophils % 1.1 Nucleated Red Blood Cells % 0.0 Neutrophils # 2.3 Lymphocytes # 1.1 Monocytes # 0.6 Eosinophils # 0.6 H Basophils # 0.1 Nucleated Red Blood Cells # 0.0 Prothrombin Time 12.8 Prothrombin Time Ratio 1.0 INR International Normalized Ratio 0.96 Activated Partial Thromboplast Time 23.2 L Sodium Level 138 Potassium Level 4.0 Chloride Level 101 Carbon Dioxide Level 29 Anion Gap 12 Blood Urea Nitrogen 15 Creatinine 0.51 Glucose Level 132 Calcium Level 9.0 Total Bilirubin 0.6 Direct Bilirubin 0.00 Indirect Bilirubin 0.6 Aspartate Amino Transf (AST/SGOT) 28 Alanine Aminotransferase (ALT/SGPT) 34 Alkaline Phosphatase 75 Total Protein 6.3 Albumin 3.6 Globulin 2.70 Albumin/Globulin Ratio 1.33 Test 01/26/17 12:25 01/26/17 13:03 01/26/17 13:45 01/26/17 13:51 Bedside Glucose 136 64 L Blood Gas Specimen Source [facility] Arterial Blood Date Drawn 01/26/2017 1:25:04 PM Arterial Blood pH (Temp corrected) 7.390 Arterial Blood pCO2 (Temp correct) 45.2 H Arterial Blood pO2 (Temp corrected) 178.1 H Arterial Blood HCO3 26.7 H Arterial Blood Base Excess 1.4 Arterial Blood Oxygen Saturation 98.6 H Miguel Test N/A Arterial Blood Gas Puncture Site A-Line Arterial Blood Carboxyhemoglobin 0.2 Arterial Blood Methemoglobin 0.3 Mixed Venous Blood PO2 41.1 H Mixed Venous Blood O2 Saturation 78.4 H Mixed Venous Blood Total Hemoglobin 11.1 Mixed Venous Blood Oxyhemoglobin 77.9 Mixed Venous Bld Carboxyhemoglobin 0.3 Mixed Venous Blood Methemoglobin 0.4 Blood Gas A-a O2 Differential 272.4 H Oxyhemoglobin Percent 98.1 Total Hemoglobin 11.6 L Blood Gas Temperature 37.0 Blood Gas Respiration Rate 14.0 Blood Gas Actual Respiration Rate 14 Blood Gas Modality VENT - AC FiO2 70.0 Blood Gas Tidal Volume 500.0 Blood Gas Low PEEP Setting 5.0 Blood Gas Notified Whom JLD Blood Gas Notified Time 01/26/2017 1:42:50 PM White Blood Count 8.0 # Red Blood Count 3.26 L Hemoglobin 9.9 L Hematocrit 29.5 L Mean Corpuscular Volume 90.5 Mean Corpuscular Hemoglobin 30.4 Mean Corpuscular Hemoglobin Concent 33.6 Red Cell Distribution Width 17.6 H Platelet Count 166 # Mean Platelet Volume 9.3 Neutrophils % 76.1 Lymphocytes % 15.4 Monocytes % 6.0 Eosinophils % 1.6 Basophils % 0.3 Nucleated Red Blood Cells % 0.0 Neutrophils # (Manual) 6.1 Lymphocytes # 1.2 Monocytes # 0.5 Eosinophils # 0.1 Basophils # 0.0 Nucleated Red Blood Cells # 0.0 Prothrombin Time 17.3 #H Prothrombin Time Ratio 1.4 INR International Normalized Ratio 1.41 Activated Partial Thromboplast Time 29.1 Sodium Level 149 H Potassium Level 3.2 L Chloride Level 107 Carbon Dioxide Level 29 Anion Gap 16 Blood Urea Nitrogen 12 Creatinine 0.46 Glucose Level 73 # Calcium Level 8.7 Phosphorus Level 2.4 L Magnesium Level 3.0 H Total Bilirubin 2.5 H Direct Bilirubin 0.00 Indirect Bilirubin 2.5 H Aspartate Amino Transf (AST/SGOT) 34 Alanine Aminotransferase (ALT/SGPT) 31 Alkaline Phosphatase 46 Total Protein 5.5 L Albumin 3.5 Globulin 2.00 Albumin/Globulin Ratio 1.75 Test 01/26/17 14:19 01/26/17 14:33 Bedside Glucose 128 92 Medications Medications Current Medications Ondansetron HCl (Zofran Inj) 4 mg Q6H PRN IV NAUSEA AND/OR VOMITING; Start at 11:30 Acetaminophen (Tylenol Tab) 650 mg Q6H PRN PO PAIN LEVEL 1-3 OR FEVER; Start at 11:30 Acetaminophen (Tylenol Supp) 650 mg Q6H PRN RI PAIN LEVEL 1-3 OR FEVER; Start 01/06/17 at 11:30 Aspirin (Halfprin) 81 mg DAILY PO Last administered on 01/25/17 08:32; Admin Dose 81 MG; Start 01/07/17 at 09:00 Duloxetine HCl (Cymbalta) 20 mg DAILY PO Last administered on 01/25/17 08:31; Admin Dose 20 MG; Start 01/07/17 at 09:00 Gabapentin (Neurontin) 300 mg TID PO Last administered on 01/25/17 21:22; Admin Dose 300 MG; Start 01/06/17 at 13:00 Metoprolol Tartrate (Lopressor) 12.5 mg BID PO ; Start 01/06/17 at 21:00; Status Future Hold Ticagrelor (Brilinta) 90 mg BID PO Last administered on 01/16/17 08:21; Admin Dose 90 MG; Start 01/06/17 at 21:00; Status Future Hold Diagnostic Test (Pha) (Accu-Chek) 1 ea 02 XX Last administered on 01/23/17 02: 33; Admin Dose 1 EA; Start 01/07/17 at 02:00 Furosemide (Lasix) 20 mg DAILY PO ; Start 01/07/17 at 09:00; Status Future Hold Bisacodyl (Dulcolax Supp) 10 mg DAILY PRN RI CONSTIPATION; Start 01/06/17 at 11 :30 Guaifenesin (Robitussin Liquid Cup) 100 mg Q6H PRN PO COUGH Last administered on 01/08/17 07:54; Admin Dose 100 MG; Start 01/06/17 at 11:30 Levothyroxine Sodium (Synthroid) 112 mcg DAILY@06 PO Last administered on 05:25; Admin Dose 112 MCG; Start 01/07/17 at 06:00 Lisinopril (Zestril) 2.5 mg DAILY PO Last administered on 01/18/17 08:18; Admin Dose 2.5 MG; Start 01/07/17 at 09:00 Senna (Senokot) 2 tab HS PO Last administered on 01/25/17 21:22; Admin Dose 2 TAB; Start 01/06/17 at 21:00 Miscellaneous Information 1 ea NOTE XX ; Start 01/06/17 at 12:00 Glucose (Glutose) 15 gm Q15M PRN PO DECREASED GLUCOSE Last administered on 17:30; Admin Dose 15 GM; Start 01/06/17 at 12:00 Glucose (Glutose) 22.5 gm Q15M PRN PO DECREASED GLUCOSE Last administered on 03:34; Admin Dose 22.5 GM; Start 01/06/17 at 12:00 Dextrose (D50w Syringe) 25 ml Q15M PRN IV DECREASED GLUCOSE Last administered on 01/26/17 13:56; Admin Dose 25 ML; Start 01/06/17 at 12:00 Dextrose (D50w Syringe) 50 ml Q15M PRN IV DECREASED GLUCOSE Last administered on 01/15/17 11:52; Admin Dose 50 ML; Start 01/06/17 at 12:00 Glucagon (Glucagen) 1 mg Q15M PRN IM DECREASED GLUCOSE; Start 01/06/17 at 12:00 Glucose (Glutose) 15 gm Q15M PRN BUCCAL DECREASED GLUCOSE Last administered on 01/10/17 07:07; Admin Dose 15 GM; Start 01/06/17 at 12:00 Atorvastatin Calcium (Lipitor) 40 mg HS PO Last administered on 01/25/17 21:22 ; Admin Dose 40 MG; Start 01/14/17 at 21:00 Lidocaine (Xylocaine 4% (Mpf)) 5 ml ONCE PRN HHN BREATHING TREATMENT Last administered on 01/15/17 09:38; Admin Dose 5 ML; Start 01/15/17 at 09:30 Alendronate Sodium (Fosamax) 70 mg We@0630 PO Last administered on 01/21/17 07: 00; Admin Dose 70 MG; Start 01/21/17 at 06:30 Polyethylene Glycol (Miralax) 17 gm DAILY PRN PO constipation; Start 01/20/17 at 18:30 Enoxaparin Sodium (Lovenox) 40 mg DAILY SC Last administered on 01/21/17 09:37 ; Admin Dose 40 MG; Start 01/21/17 at 09:00 Insulin Glargine (Lantus) 13 unit DAILY@08 SC Last administered on 01/25/17 08 :25; Admin Dose 13 UNIT; Start 01/22/17 at 08:00; Status Future Hold Insulin Human NPH 6 unit 6 unit DAILY@20 SC Last administered on 01/25/17 20: 07; Admin Dose 6 UNIT; Start 01/23/17 at 20:00 Potassium Chloride 40 meq/ Calcium Chloride 1 gm/Dextrose/ Sodium Chloride 1, 030 ml @ 60 mls/hr [id number] IV Last administered on 01/26/17 15:46; Admin Dose 60 MLS/HR; Start 01/26/17 at 15:30 Cefazolin Sodium (Ancef 1 Gm/50 ml (Pmx)) 50 ml @ 100 mls/hr Q8H IVPB Last administered on 01/26/17 15:48; Admin Dose 100 MLS/HR; Start 01/26/17 at 14:00 ; Stop 01/27/17 at 06:29 Morphine Sulfate (morphine) 1 mg Q2 PRN IV PAIN LEVEL 1-5; Start 01/26/17 at 14 :00 Morphine Sulfate (morphine) 2 mg Q2 PRN IV PAIN LEVEL 6-10; Start 01/26/17 at 14:00 Ondansetron HCl 4 mg 4 mg Q6H PRN IV NAUSEA AND/OR VOMITING; Start 01/26/17 at 14:00 Magnesium Sulfate/ Dextrose (Magnesium Sulfate 1 Gm/D5W) 100 ml @ 100 mls/hr PRN PRN IVPB PENDING LAB VALUE; Start 01/26/17 at 14:00 ARTIE MARADIAGA MD Jan 26, 2017 16:07
--- NOTE | 2017-01-26 17:55 | CONS ---
Date/Time of Note Date/Time of Note DATE: 01/26/17 TIME: 17:52 Assessment/Plan Assessment/Plan Problems: (1) Type 1 diabetes mellitus with diabetic polyneuropathy Status: Chronic Comment: Last 2 days, NPH at hs was effective. Now S/p CABG. Tanja held this am. Pt. to be on insulin drip but currently not requiring. Has been restarted on IVF w/ D5 at 60 mL/hr. Once BG checked hourly is > 150 mg/dL, will restart IV insulin. Once ready for diet, will wean off IV insulin and resume previous doses of sq. Consultation Date/Type/Reason Admit Date/Time Jan 06, 2017 at 10:49 Initial Consult Date 01/14/17 Type of Consultation: Endocrinology Reason for Consultation T1DM OOC Referring Provider: TANIYA OLMSTEAD 24 HR Interval Summary Subjective hx not possible: pt non-verbal, pt critical status Exam/Review of Systems Vital Signs Vitals VS - Last 72 Hours, by Label Date Time Temp Pulse Resp B/P Pulse Ox O2 Delivery O2 Flow Rate FiO2 01/26/17 17:00 99.4 96 19 113/54 99 01/26/17 16:55 96 18 99 40 01/26/17 16:45 96 15 103/47 99 01/26/17 16:30 100 21 113/54 100 01/26/17 16:15 94 14 101/48 99 01/26/17 16:00 97 01/26/17 16:00 99.3 97 15 92/45 99 01/26/17 15:45 98 14 102/46 99 01/26/17 15:30 96 15 100/44 99 01/26/17 15:15 97 14 93/38 98 01/26/17 15:00 99 14 91/50 100 01/26/17 14:50 99 14 100 70 01/26/17 14:45 99.3 102 18 110/44 100 01/26/17 14:30 98 14 104/39 100 01/26/17 14:15 100 14 114/40 100 01/26/17 14:00 102 14 86/49 100 01/26/17 13:45 105 14 100 01/26/17 13:30 104 14 110/42 100 01/26/17 13:15 105 14 115/42 100 01/26/17 13:15 105 14 100 70 01/26/17 13:00 107 14 128/44 100 01/26/17 12:45 98.3 114 14 149/51 100 01/26/17 12:32 109 01/26/17 12:25 114 14 100 70 01/26/17 02:57 98.4 78 18 107/51 97 01/25/17 20:22 96.7 90 20 108/54 98 01/25/17 14:33 98.1 84 20 94/57 97 01/25/17 08:53 98.2 87 18 101/50 96 01/25/17 02:00 98.1 73 18 118/58 97 01/24/17 20:28 98.4 100 18 101/49 97 01/24/17 14:00 98.1 89 16 105/52 97 01/24/17 07:57 97.4 84 18 104/51 97 01/24/17 02:00 98.1 85 18 120/58 96 01/23/17 20:00 98.3 88 18 102/55 97 Vital Signs Date Time Temp Pulse Resp B/P Pulse Ox O2 Delivery O2 Flow Rate FiO2 01/26/17 17:00 99.4 96 19 113/54 99 01/26/17 16:55 40 Intake and Output 01/25/17 01/25/17 01/26/17 15:00 23:00 07:00 Intake Total 1140 ml 200 ml Balance 1140 ml 200 ml Exam Constitutional: alert, non-verbal, well developed ENMT: intubated Respiratory: clear to auscultation, normal air movement Cardiovascular: nl pulses, regular rate and rhythm, No edema, No murmurs/extra sounds, No rub Gastrointestinal: bowel sounds, nl liver, spleen, non-tender, soft, No mass, No rebound or guarding Musculoskeletal: nl extremities to inspection Extremities: normal pulses, No clubbing, No cyanosis, No edema 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: lethargic Additional Comments Bedside Glucose - 72 Hours Test 01/23/17 22:09 01/24/17 02:08 01/24/17 08:14 01/24/17 10:13 Bedside Glucose 96mg/dL (70-220) 308mg/dL (70-220) H 265mg/dL (70-220) H 270mg/dL (70-220) H Test 01/24/17 12:11 01/24/17 14:16 01/24/17 17:34 01/24/17 20:17 Bedside Glucose 130mg/dL (70-220) 103mg/dL (70-220) 108mg/dL (70-220) 166mg/dL (70-220) Test 01/25/17 02:05 01/25/17 08:17 01/25/17 10:20 01/25/17 11:54 Bedside Glucose 84mg/dL (70-220) 168mg/dL (70-220) 130mg/dL (70-220) 181mg/dL (70-220) Test 01/25/17 13:39 01/25/17 17:32 01/25/17 20:01 01/25/17 21:25 Bedside Glucose 310mg/dL (70-220) H 234mg/dL (70-220) H 102mg/dL (70-220) 57mg/dL (70-220) L Test 01/25/17 22:09 01/25/17 22:28 01/25/17 23:04 01/25/17 23:17 Bedside Glucose 72mg/dL (70-220) 58mg/dL (70-220) L 129mg/dL (70-220) 114mg/dL (70-220) Test 01/26/17 02:17 01/26/17 02:51 01/26/17 06:46 01/26/17 07:19 Bedside Glucose 81mg/dL (70-220) 159mg/dL (70-220) 144mg/dL (70-220) 160mg/dL (70-220) Test 01/26/17 12:25 01/26/17 13:51 01/26/17 14:19 01/26/17 14:33 Bedside Glucose 136mg/dL (70-220) 64mg/dL (70-220) L 128mg/dL (70-220) 92mg/dL (70-220) Test 01/26/17 16:41 01/26/17 17:10 Bedside Glucose 89mg/dL (70-220) 121mg/dL (70-220) Results Result Diagram: 01/26/17 1345 01/26/17 1345 Results 24 hrs Laboratory Tests Test 01/25/17 20:01 01/25/17 21:25 01/25/17 22:09 01/25/17 22:28 Bedside Glucose 102 57 L 72 58 L Test 01/25/17 23:04 01/25/17 23:17 01/26/17 02:17 01/26/17 02:51 Bedside Glucose 129 114 81 159 Test 01/26/17 05:05 01/26/17 06:46 01/26/17 07:19 01/26/17 12:25 White Blood Count 4.6 #L Red Blood Count 3.78 L Hemoglobin 11.5 L Hematocrit 36.3 L Mean Corpuscular Volume 96.0 Mean Corpuscular Hemoglobin 30.4 Mean Corpuscular Hemoglobin Concent 31.7 L Red Cell Distribution Width 14.9 H Platelet Count 276 Mean Platelet Volume 9.2 Neutrophils % 48.7 Lymphocytes % 24.0 Monocytes % 12.1 H Eosinophils % 13.9 H Basophils % 1.1 Nucleated Red Blood Cells % 0.0 Neutrophils # 2.3 Lymphocytes # 1.1 Monocytes # 0.6 Eosinophils # 0.6 H Basophils # 0.1 Nucleated Red Blood Cells # 0.0 Prothrombin Time 12.8 Prothrombin Time Ratio 1.0 INR International Normalized Ratio 0.96 Activated Partial Thromboplast Time 23.2 L Sodium Level 138 Potassium Level 4.0 Chloride Level 101 Carbon Dioxide Level 29 Anion Gap 12 Blood Urea Nitrogen 15 Creatinine 0.51 Glucose Level 132 Calcium Level 9.0 Total Bilirubin 0.6 Direct Bilirubin 0.00 Indirect Bilirubin 0.6 Aspartate Amino Transf (AST/SGOT) 28 Alanine Aminotransferase (ALT/SGPT) 34 Alkaline Phosphatase 75 Total Protein 6.3 Albumin 3.6 Globulin 2.70 Albumin/Globulin Ratio 1.33 Bedside Glucose 144 160 136 Test 01/26/17 13:03 01/26/17 13:45 01/26/17 13:51 01/26/17 14:19 Blood Gas Specimen Source [facility] Arterial Blood Date Drawn 01/26/2017 1:25:04 PM Arterial Blood pH (Temp corrected) 7.390 Arterial Blood pCO2 (Temp correct) 45.2 H Arterial Blood pO2 (Temp corrected) 178.1 H Arterial Blood HCO3 26.7 H Arterial Blood Base Excess 1.4 Arterial Blood Oxygen Saturation 98.6 H Miguel Test N/A Arterial Blood Gas Puncture Site A-Line Arterial Blood Carboxyhemoglobin 0.2 Arterial Blood Methemoglobin 0.3 Mixed Venous Blood PO2 41.1 H Mixed Venous Blood O2 Saturation 78.4 H Mixed Venous Blood Total Hemoglobin 11.1 Mixed Venous Blood Oxyhemoglobin 77.9 Mixed Venous Bld Carboxyhemoglobin 0.3 Mixed Venous Blood Methemoglobin 0.4 Blood Gas A-a O2 Differential 272.4 H Oxyhemoglobin Percent 98.1 Total Hemoglobin 11.6 L Blood Gas Temperature 37.0 Blood Gas Respiration Rate 14.0 Blood Gas Actual Respiration Rate 14 Blood Gas Modality VENT - AC FiO2 70.0 Blood Gas Tidal Volume 500.0 Blood Gas Low PEEP Setting 5.0 Blood Gas Notified Whom JLD Blood Gas Notified Time 01/26/2017 1:42:50 PM White Blood Count 8.0 # Red Blood Count 3.26 L Hemoglobin 9.9 L Hematocrit 29.5 L Mean Corpuscular Volume 90.5 Mean Corpuscular Hemoglobin 30.4 Mean Corpuscular Hemoglobin Concent 33.6 Red Cell Distribution Width 17.6 H Platelet Count 166 # Mean Platelet Volume 9.3 Neutrophils % 76.1 Lymphocytes % 15.4 Monocytes % 6.0 Eosinophils % 1.6 Basophils % 0.3 Nucleated Red Blood Cells % 0.0 Neutrophils # (Manual) 6.1 Lymphocytes # 1.2 Monocytes # 0.5 Eosinophils # 0.1 Basophils # 0.0 Nucleated Red Blood Cells # 0.0 Prothrombin Time 17.3 #H Prothrombin Time Ratio 1.4 INR International Normalized Ratio 1.41 Activated Partial Thromboplast Time 29.1 Sodium Level 149 H Potassium Level 3.2 L Chloride Level 107 Carbon Dioxide Level 29 Anion Gap 16 Blood Urea Nitrogen 12 Creatinine 0.46 Glucose Level 73 # Calcium Level 8.7 Phosphorus Level 2.4 L Magnesium Level 3.0 H Total Bilirubin 2.5 H Direct Bilirubin 0.00 Indirect Bilirubin 2.5 H Aspartate Amino Transf (AST/SGOT) 34 Alanine Aminotransferase (ALT/SGPT) 31 Alkaline Phosphatase 46 Total Protein 5.5 L Albumin 3.5 Globulin 2.00 Albumin/Globulin Ratio 1.75 Bedside Glucose 64 L 128 Test 01/26/17 14:33 01/26/17 16:41 01/26/17 17:10 Bedside Glucose 92 89 121 Medications Medications Current Medications Ondansetron HCl (Zofran Inj) 4 mg Q6H PRN IV NAUSEA AND/OR VOMITING; Start at 11:30 Acetaminophen (Tylenol Tab) 650 mg Q6H PRN PO PAIN LEVEL 1-3 OR FEVER; Start at 11:30 Acetaminophen (Tylenol Supp) 650 mg Q6H PRN [place] PAIN LEVEL 1-3 OR FEVER; Start 01/06/17 at 11:30 Aspirin (Halfprin) 81 mg DAILY PO Last administered on 01/25/17 08:32; Admin Dose 81 MG; Start 01/07/17 at 09:00 Duloxetine HCl (Cymbalta) 20 mg DAILY PO Last administered on 01/25/17 08:31; Admin Dose 20 MG; Start 01/07/17 at 09:00 Gabapentin (Neurontin) 300 mg TID PO Last administered on 01/25/17 21:22; Admin Dose 300 MG; Start 01/06/17 at 13:00 Metoprolol Tartrate (Lopressor) 12.5 mg BID PO ; Start 01/06/17 at 21:00; Status Future Hold Ticagrelor (Brilinta) 90 mg BID PO Last administered on 01/16/17 08:21; Admin Dose 90 MG; Start 01/06/17 at 21:00; Status Future Hold Furosemide (Lasix) 20 mg DAILY PO ; Start 01/07/17 at 09:00; Status Future Hold Bisacodyl (Dulcolax Supp) 10 mg DAILY PRN [place] CONSTIPATION; Start 01/06/17 at 11 :30 Guaifenesin (Robitussin Liquid Cup) 100 mg Q6H PRN PO COUGH Last administered on 01/08/17 07:54; Admin Dose 100 MG; Start 01/06/17 at 11:30 Levothyroxine Sodium (Synthroid) 112 mcg DAILY@06 PO Last administered on 05:25; Admin Dose 112 MCG; Start 01/07/17 at 06:00 Lisinopril (Zestril) 2.5 mg DAILY PO Last administered on 01/18/17 08:18; Admin Dose 2.5 MG; Start 01/07/17 at 09:00 Senna (Senokot) 2 tab HS PO Last administered on 01/25/17 21:22; Admin Dose 2 TAB; Start 01/06/17 at 21:00 Miscellaneous Information 1 ea NOTE XX ; Start 01/06/17 at 12:00 Glucose (Glutose) 15 gm Q15M PRN PO DECREASED GLUCOSE Last administered on 17:30; Admin Dose 15 GM; Start 01/06/17 at 12:00 Glucose (Glutose) 22.5 gm Q15M PRN PO DECREASED GLUCOSE Last administered on 03:34; Admin Dose 22.5 GM; Start 01/06/17 at 12:00 Dextrose (D50w Syringe) 25 ml Q15M PRN IV DECREASED GLUCOSE Last administered on 01/26/17 13:56; Admin Dose 25 ML; Start 01/06/17 at 12:00 Dextrose (D50w Syringe) 50 ml Q15M PRN IV DECREASED GLUCOSE Last administered on 01/15/17 11:52; Admin Dose 50 ML; Start 01/06/17 at 12:00 Glucagon (Glucagen) 1 mg Q15M PRN IM DECREASED GLUCOSE; Start 01/06/17 at 12:00 Glucose (Glutose) 15 gm Q15M PRN BUCCAL DECREASED GLUCOSE Last administered on 01/10/17 07:07; Admin Dose 15 GM; Start 01/06/17 at 12:00 Atorvastatin Calcium (Lipitor) 40 mg HS PO Last administered on 01/25/17 21:22 ; Admin Dose 40 MG; Start 01/14/17 at 21:00 Lidocaine (Xylocaine 4% (Mpf)) 5 ml ONCE PRN HHN BREATHING TREATMENT Last administered on 01/15/17 09:38; Admin Dose 5 ML; Start 01/15/17 at 09:30 Alendronate Sodium (Fosamax) 70 mg We@0630 PO Last administered on 01/21/17 07: 00; Admin Dose 70 MG; Start 01/21/17 at 06:30 Polyethylene Glycol (Miralax) 17 gm DAILY PRN PO constipation; Start 01/20/17 at 18:30 Enoxaparin Sodium (Lovenox) 40 mg DAILY SC Last administered on 01/21/17 09:37 ; Admin Dose 40 MG; Start 01/21/17 at 09:00 Insulin Glargine (Lantus) 13 unit DAILY@08 SC Last administered on 01/25/17 08 :25; Admin Dose 13 UNIT; Start 01/22/17 at 08:00; Status Future Hold Insulin Human NPH 6 unit 6 unit DAILY@20 SC Last administered on 01/25/17 20: 07; Admin Dose 6 UNIT; Start 01/23/17 at 20:00 Potassium Chloride 40 meq/ Calcium Chloride 1 gm/Dextrose/ Sodium Chloride 1, 030 ml @ 60 mls/hr [id number] IV Last administered on 01/26/17 15:46; Admin Dose 60 MLS/HR; Start 01/26/17 at 15:30 Cefazolin Sodium (Ancef 1 Gm/50 ml (Pmx)) 50 ml @ 100 mls/hr Q8H IVPB Last administered on 01/26/17 15:48; Admin Dose 100 MLS/HR; Start 01/26/17 at 14:00 ; Stop 01/27/17 at 06:29 Morphine Sulfate (morphine) 1 mg Q2 PRN IV PAIN LEVEL 1-5; Start 01/26/17 at 14 :00 Morphine Sulfate (morphine) 2 mg Q2 PRN IV PAIN LEVEL 6-10; Start 01/26/17 at 14:00 Ondansetron HCl 4 mg 4 mg Q6H PRN IV NAUSEA AND/OR VOMITING; Start 01/26/17 at 14:00 Magnesium Sulfate/ Dextrose (Magnesium Sulfate 1 Gm/D5W) 100 ml @ 100 mls/hr PRN PRN IVPB PENDING LAB VALUE; Start 01/26/17 at 14:00 Diagnostic Test (Pha) (Accu-Chek) 1 ea Q1H XX Last administered on 01/26/17 17 :00; Admin Dose 1 EA; Start 01/26/17 at 16:00 DARYL MYERS MD Jan 26, 2017 17:55
[2017-01-26] MEDS ORDERED: DEXTROSE 50% 50 ML SYRINGE IV PRN ×2 (20:30)
[2017-01-26] MEDS: ATORVASTATIN 40 MG TAB PO SCH (21:00)
[2017-01-26] MEDS: SENNA TAB PO SCH (21:00)
[2017-01-26 21:04] LABS: ABNORMAL IP MESSAGE 1; BASOPHILS % 0.4 % (0.0-2.0); EOSINOPHILS # 0.2 10^3/ul (0.0-0.5); EOSINOPHILS % 2.3 % (0.0-7.0); HEMATOCRIT 35.1 % (37.0-47.0); HEMOGLOBIN 11.8 g/dl (12.0-16.0); LYMPHOCYTES # 0.3 10^3/ul (0.8-2.9); LYMPHOCYTES % 3.1 % (15.0-51.0); MEAN CORPUSCULAR HEMOGLOBIN 30.3 pg (29.0-33.0); MEAN CORPUSCULAR HGB CONC 33.6 g/dl (32.0-37.0); MEAN CORPUSCULAR VOLUME 90.2 fl (82.0-101.0); MONOCYTES % 9.2 % (0.0-11.0); NEUTROPHILS % 84.6 % (39.0-77.0); PLATELET COUNT 179 10^3/UL (140-415); RED BLOOD COUNT 3.89 10^6/ul (4.20-5.40); RED CELL DISTRIBUTION WIDTH 18.7 % (11.5-14.5); WHITE BLOOD COUNT 10.5 10^3/ul (4.8-10.8)
[2017-01-26 21:06] LABS: POSITIVE DIFF @See below
[2017-01-26 21:23] LABS: INR 1.16; PARTIAL THROMBOPLASTIN TIME 30.8 Sec (25.0-35.0); PROTIME 14.9 Sec (12.2-14.2); PT RATIO 1.2
[2017-01-26 21:42] LABS: ALBUMIN 3.6 g/dl (3.3-4.9); ALBUMIN/GLOBULIN RATIO 1.71; BILIRUBIN,INDIRECT 2.8 mg/dl (0-1.1); BILIRUBIN,TOTAL 2.8 mg/dl (0.2-1.3); CALCIUM 8.8 mg/dl (8.4-10.2); CREATININE 0.53 mg/dl (0.44-1.00); MAGNESIUM 2.3 mg/dl (1.7-2.5); PHOSPHORUS 3.2 mg/dl (2.5-4.9); POTASSIUM 4.4 mmol/L (3.5-5.1); TOTAL PROTEIN 5.7 g/dl (6.1-8.1)
[2017-01-27] VITALS (49 sets, daily range): BP systolic 109–140; BP diastolic 43–67; PULSE 94–138; RESP 22–33; TEMP 99.9–100.9
[2017-01-27] MEDS: ACCU-CHEK XX SCH ×19 (00:18→18:11)
[2017-01-27] MEDS: POTASSIUM CHLORIDE 50 ML IVPB PRN ×2 (02:44→06:36)
[2017-01-27 04:59] LABS: ABNORMAL IP MESSAGE 1; BASOPHIL # 0.1 10^3/ul (0.0-0.1); BASOPHILS % 0.5 % (0.0-2.0); EOSINOPHILS # 0.1 10^3/ul (0.0-0.5); EOSINOPHILS % 1.1 % (0.0-7.0); HEMOGLOBIN 11.6 g/dl (12.0-16.0); LYMPHOCYTES # 0.6 10^3/ul (0.8-2.9); LYMPHOCYTES % 5.5 % (15.0-51.0); MEAN CORPUSCULAR HEMOGLOBIN 30.1 pg (29.0-33.0); MEAN CORPUSCULAR HGB CONC 33.1 g/dl (32.0-37.0); MEAN CORPUSCULAR VOLUME 90.9 fl (82.0-101.0); MEAN PLATELET VOLUME 10.2 fl (7.4-10.4); MONOCYTE # 1.1 10^3/ul (0.3-0.9); MONOCYTES % 10.2 % (0.0-11.0); NEUTROPHILS % 82.4 % (39.0-77.0); PLATELET COUNT 189 10^3/UL (140-415); RED BLOOD COUNT 3.85 10^6/ul (4.20-5.40); RED CELL DISTRIBUTION WIDTH 19.4 % (11.5-14.5); WHITE BLOOD COUNT 10.5 10^3/ul (4.8-10.8)
[2017-01-27 05:11] LABS: AADO2 Arterial 106.5 mmHg (7.0-24.0); Arterial COHb 0.1 % (0.0-3.0); Arterial Fraction of Oxyhgb 97.9 % (93.0-99.0); Arterial HCO3 25.9 mmol/L (22.0-26.0); Arterial MetHb 0.3 % (0.0-1.5); Arterial Total Hemglobin 12.6 g/dl (12.0-18.0); Blood Gas PS 8; MODE VENT - CPAP
[2017-01-27 05:16] LABS: INR 1.14; PARTIAL THROMBOPLASTIN TIME 30.8 Sec (25.0-35.0); PROTIME 14.6 Sec (12.2-14.2); PT RATIO 1.1
[2017-01-27 05:18] LABS: POSITIVE DIFF @See below
[2017-01-27 05:23] LABS: CALCIUM 9.2 mg/dl (8.4-10.2); CREATININE 0.49 mg/dl (0.44-1.00); MAGNESIUM 2.1 mg/dl (1.7-2.5); POTASSIUM 4.1 mmol/L (3.5-5.1)
[2017-01-27] MEDS: CEFAZOLIN 1 GM/50 ML (PMX) 50 ML IVPB SCH (05:29)
[2017-01-27] MEDS: LEVOTHYROXINE 112 MCG TAB PO SCH (05:31)
[2017-01-27 06:27] LABS: AADO2 Arterial 122.2 mmHg (7.0-24.0); Arterial Base Excess -0.7 mmol/L (-3.0-3); Arterial COHb 0.1 % (0.0-3.0); Arterial Fraction of Oxyhgb 97.5 % (93.0-99.0); Arterial HCO3 24.4 mmol/L (22.0-26.0); Arterial MetHb 0.3 % (0.0-1.5); Arterial Total Hemglobin 12.7 g/dl (12.0-18.0); Blood Gas PS 5; MODE CPAP
--- NOTE | 2017-01-27 07:49 | RADRPT ---
PROCEDURE: XR Chest. CLINICAL INDICATION: Follow-up post CABG TECHNIQUE: AP portable chest radiograph COMPARISON: 01/26/2017 FINDINGS: Endotracheal tube, [place] catheter, chest tubes and mediastinal drains are again demonstrated. T here are multiple wires and tubes overlying the chest. The lung volumes are low. No pneumothorax is seen. Mild edema, right basilar atelectasis and small pleural effusions are similar in appearance. The cardiomediastinal silhouette is within normal limits. Sternotomy wires and mediastinal clips are visualized. The osseous structures are intact. IMPRESSION: Lines and tubes described above. Unchanged mild edema, basilar atelectasis and small pleural effusions. RPTAT: HCNS Physician Татьяна Date Time Electronically viewed and signed by Physician Татьяна on 01/27/2017 07:49 CS/
[2017-01-27] MEDS: POTASSIUM CHLORIDE 40 MEQ, CALCIUM CHLORIDE 10% 1 GM in DEXTROSE 5%-0.225% NACL 1,000 ML IV SCH (08:52)
[2017-01-27] MEDS: LISINOPRIL 5 MG TAB PO SCH (09:00)
[2017-01-27] MEDS: DULOXETINE 20 MG CAP DR PO SCH (09:00)
[2017-01-27] MEDS: ASPIRIN (EC) 81 MG TAB PO SCH (09:00)
[2017-01-27] MEDS: GABAPENTIN 300 MG CAP PO SCH ×4 (09:00→20:55)
--- NOTE | 2017-01-27 09:12 | CONS ---
Date/Time of Note Date/Time of Note DATE: 01/27/17 TIME: 09:10 Assessment/Plan Assessment/Plan Additional Assessment/Plan 1. CAD with Triple vessel disease - post Op now/ DEE/SVG - tolerated procedure well - con't to wean. POD # 2 - better overall - hope to be extubated now 2. Carotid artery disease - no CP now, in good fluid status - con't to adjust Rx. 3. Neck Mass - no Rx needed - ENT r/o malignancy. 4Hypertension - well Rx, con't med rx - well rx 5. Diabetes - On ISS. might need gtt - endo team follows 6 CHF - chronic, good fluid staus now. 7. Resp failure - ABG on range, extub today Consultation Date/Type/Reason Admit Date/Time Jan 06, 2017 at 10:49 Type of Consultation: Endocrinology Referring Provider: TANIYA OLMTSEAD 24 HR Interval Summary Free Text/Dictation No acute change - better overall - BP stable - not in CHF by exam ROS: No fever, no chills, no nausea, no vomiting, no diarrhea/constipation No recent weight changes No chest pain, no PND, no orthopnea No dizziness, blurred vision No thirst, no heat or cold intolerance + SOB, no RUB Exam/Review of Systems Vital Signs Vitals Vital Signs Date Time Temp Pulse Resp B/P Pulse Ox O2 Delivery O2 Flow Rate FiO2 01/27/17 09:00 102 28 134/62 98 01/27/17 08:00 99.9 01/27/17 07:15 40 Intake and Output 01/26/17 01/26/17 01/27/17 15:00 23:00 07:00 Intake Total 3123 ml 645 ml 594.0 ml Output Total 4691 ml 981 ml 488 ml Balance -1568 ml -336 ml 106.0 ml Exam General: WN/WD/NAD, AOx 3 HEENT: Unicetric/atraumatic/EOMI (follow commands) NECK: JVD elevated, no thyromegaly Lymph: no lymphadenopathy HEART: regular with no S3, II/ systolic murmur at apex. PMI L LUNGS: Coarse sounds, CT noted with drainage ABD: soft, NT, ND, +BS : Intact Neuro: non focal SKIN: chronic changes EXT: trace edema Results Result Diagram: 01/27/17 0400 01/27/17 0400 Results 24 hrs Laboratory Tests Test 01/26/17 12:25 01/26/17 13:03 01/26/17 13:45 01/26/17 13:51 Bedside Glucose 136 64 L Blood Gas Specimen Source BLMV Arterial Blood Date Drawn 01/26/2017 1:25:04 PM Arterial Blood pH (Temp corrected) 7.390 Arterial Blood pCO2 (Temp correct) 45.2 H Arterial Blood pO2 (Temp corrected) 178.1 H Arterial Blood HCO3 26.7 H Arterial Blood Base Excess 1.4 Arterial Blood Oxygen Saturation 98.6 H Miguel Test N/A Arterial Blood Gas Puncture Site A-Line Arterial Blood Carboxyhemoglobin 0.2 Arterial Blood Methemoglobin 0.3 Mixed Venous Blood PO2 41.1 H Mixed Venous Blood O2 Saturation 78.4 H Mixed Venous Blood Total Hemoglobin 11.1 Mixed Venous Blood Oxyhemoglobin 77.9 Mixed Venous Bld Carboxyhemoglobin 0.3 Mixed Venous Blood Methemoglobin 0.4 Blood Gas A-a O2 Differential 272.4 H Oxyhemoglobin Percent 98.1 Total Hemoglobin 11.6 L Blood Gas Temperature 37.0 Blood Gas Respiration Rate 14.0 Blood Gas Actual Respiration Rate 14 Blood Gas Modality VENT - AC FiO2 70.0 Blood Gas Tidal Volume 500.0 Blood Gas Low PEEP Setting 5.0 Blood Gas Notified Whom JLD Blood Gas Notified Time 01/26/2017 1:42:50 PM White Blood Count 8.0 # Red Blood Count 3.26 L Hemoglobin 9.9 L Hematocrit 29.5 L Mean Corpuscular Volume 90.5 Mean Corpuscular Hemoglobin 30.4 Mean Corpuscular Hemoglobin Concent 33.6 Red Cell Distribution Width 17.6 H Platelet Count 166 # Mean Platelet Volume 9.3 Neutrophils % 76.1 Lymphocytes % 15.4 Monocytes % 6.0 Eosinophils % 1.6 Basophils % 0.3 Nucleated Red Blood Cells % 0.0 Neutrophils # (Manual) 6.1 Lymphocytes # 1.2 Monocytes # 0.5 Eosinophils # 0.1 Basophils # 0.0 Nucleated Red Blood Cells # 0.0 Prothrombin Time 17.3 #H Prothrombin Time Ratio 1.4 INR International Normalized Ratio 1.41 Activated Partial Thromboplast Time 29.1 Sodium Level 149 H Potassium Level 3.2 L Chloride Level 107 Carbon Dioxide Level 29 Anion Gap 16 Blood Urea Nitrogen 12 Creatinine 0.46 Glucose Level 73 # Calcium Level 8.7 Phosphorus Level 2.4 L Magnesium Level 3.0 H Total Bilirubin 2.5 H Direct Bilirubin 0.00 Indirect Bilirubin 2.5 H Aspartate Amino Transf (AST/SGOT) 34 Alanine Aminotransferase (ALT/SGPT) 31 Alkaline Phosphatase 46 Total Protein 5.5 L Albumin 3.5 Globulin 2.00 Albumin/Globulin Ratio 1.75 Test 01/26/17 14:19 01/26/17 14:33 01/26/17 16:41 01/26/17 17:10 Bedside Glucose 128 92 89 121 Test 01/26/17 18:17 01/26/17 19:57 01/26/17 20:17 01/26/17 20:19 Bedside Glucose 142 230 H 240 H White Blood Count 10.5 # Red Blood Count 3.89 L Hemoglobin 11.8 L Hematocrit 35.1 L Mean Corpuscular Volume 90.2 Mean Corpuscular Hemoglobin 30.3 Mean Corpuscular Hemoglobin Concent 33.6 Red Cell Distribution Width 18.7 H Platelet Count 179 Mean Platelet Volume 10.0 Neutrophils % 84.6 H Lymphocytes % 3.1 L Monocytes % 9.2 Eosinophils % 2.3 Basophils % 0.4 Nucleated Red Blood Cells % 0.0 Neutrophils # (Manual) 8.9 H Lymphocytes # 0.3 L Monocytes # 1.0 H Eosinophils # 0.2 Basophils # 0.0 Nucleated Red Blood Cells # 0.0 Prothrombin Time 14.9 H Prothrombin Time Ratio 1.2 INR International Normalized Ratio 1.16 Activated Partial Thromboplast Time 30.8 Sodium Level 142 Potassium Level 4.4 Chloride Level 108 Carbon Dioxide Level 28 Anion Gap 10 # Blood Urea Nitrogen 14 Creatinine 0.53 Glucose Level 240 #H Calcium Level 8.8 Phosphorus Level 3.2 Magnesium Level 2.3 Total Bilirubin 2.8 H Direct Bilirubin 0.00 Indirect Bilirubin 2.8 H Aspartate Amino Transf (AST/SGOT) 43 Alanine Aminotransferase (ALT/SGPT) 34 Alkaline Phosphatase 56 Total Protein 5.7 L Albumin 3.6 Globulin 2.10 Albumin/Globulin Ratio 1.71 Test 01/26/17 21:01 01/26/17 22:04 01/26/17 23:00 01/26/17 23:59 Bedside Glucose 221 H 195 198 160 Test 01/27/17 01:01 01/27/17 01:59 01/27/17 02:57 01/27/17 04:00 Bedside Glucose 163 169 146 White Blood Count 10.5 Red Blood Count 3.85 L Hemoglobin 11.6 L Hematocrit 35.0 L Mean Corpuscular Volume 90.9 Mean Corpuscular Hemoglobin 30.1 Mean Corpuscular Hemoglobin Concent 33.1 Red Cell Distribution Width 19.4 H Platelet Count 189 Mean Platelet Volume 10.2 Neutrophils % 82.4 H Lymphocytes % 5.5 L Monocytes % 10.2 Eosinophils % 1.1 Basophils % 0.5 Nucleated Red Blood Cells % 0.0 Neutrophils # (Manual) 8.6 H Lymphocytes # 0.6 L Monocytes # 1.1 H Eosinophils # 0.1 Basophils # 0.1 Nucleated Red Blood Cells # 0.0 Prothrombin Time 14.6 H Prothrombin Time Ratio 1.1 INR International Normalized Ratio 1.14 Activated Partial Thromboplast Time 30.8 Sodium Level 144 Potassium Level 4.1 Chloride Level 109 Carbon Dioxide Level 29 Anion Gap 10 Blood Urea Nitrogen 10 Creatinine 0.49 Glucose Level 141 # Calcium Level 9.2 Magnesium Level 2.1 Test 01/27/17 04:02 01/27/17 05:00 01/27/17 05:03 01/27/17 05:04 Bedside Glucose 137 141 Blood Gas Specimen Source Blood arterial Arterial Blood Date Drawn 01/27/2017 5:05:18 AM Arterial Blood pH (Temp corrected) 7.402 Arterial Blood pCO2 (Temp correct) 42.6 Arterial Blood pO2 (Temp corrected) 129.7 H Arterial Blood HCO3 25.9 Arterial Blood Base Excess 1.0 Arterial Blood Oxygen Saturation 98.3 H Miguel Test N/A Arterial Blood Gas Puncture Site A-Line Arterial Blood Carboxyhemoglobin 0.1 Arterial Blood Methemoglobin 0.3 Blood Gas A-a O2 Differential 106.5 H Oxyhemoglobin Percent 97.9 Total Hemoglobin 12.6 Blood Gas Temperature 37.0 Blood Gas Modality VENT - CPAP FiO2 40.0 Blood Gas Low PEEP Setting 5.0 Blood Gas Pressure Support 8 Blood Gas Notified Whom BR Blood Gas Notified Time 01/27/2017 5:10:50 AM Lab Scanned Report BLOOD TRANSFUSION Test 01/27/17 06:02 01/27/17 06:20 01/27/17 07:07 01/27/17 08:05 Bedside Glucose 171 143 135 Blood Gas Specimen Source Blood arterial Arterial Blood Date Drawn 01/27/2017 6:20:01 AM Arterial Blood pH (Temp corrected) 7.382 Arterial Blood pCO2 (Temp correct) 42.0 Arterial Blood pO2 (Temp corrected) 114.7 H Arterial Blood HCO3 24.4 Arterial Blood Base Excess -0.7 Arterial Blood Oxygen Saturation 97.9 Miguel Test N/A Arterial Blood Gas Puncture Site A-Line Arterial Blood Carboxyhemoglobin 0.1 Arterial Blood Methemoglobin 0.3 Blood Gas A-a O2 Differential 122.2 H Oxyhemoglobin Percent 97.5 Total Hemoglobin 12.7 Blood Gas Temperature 37.0 Blood Gas Modality CPAP FiO2 40.0 Blood Gas Low PEEP Setting 5.0 Blood Gas Pressure Support 5 Blood Gas Notified Whom ALFREDO PANIAGUA Blood Gas Notified Time 01/27/2017 6:26:52 AM Test 01/27/17 09:02 Bedside Glucose 150 Medications Medications Current Medications Acetaminophen (Tylenol Tab) 650 mg Q6H PRN PO PAIN LEVEL 1-3 OR FEVER; Start at 11:30 Acetaminophen (Tylenol Supp) 650 mg Q6H PRN [place] PAIN LEVEL 1-3 OR FEVER; Start 01/06/17 at 11:30 Aspirin (Halfprin) 81 mg DAILY PO Last administered on 01/25/17 08:32; Admin Dose 81 MG; Start 01/07/17 at 09:00 Duloxetine HCl (Cymbalta) 20 mg DAILY PO Last administered on 01/25/17 08:31; Admin Dose 20 MG; Start 01/07/17 at 09:00 Gabapentin (Neurontin) 300 mg TID PO Last administered on 01/25/17 21:22; Admin Dose 300 MG; Start 01/06/17 at 13:00 Metoprolol Tartrate (Lopressor) 12.5 mg BID PO ; Start 01/06/17 at 21:00; Status Future Hold Ticagrelor (Brilinta) 90 mg BID PO Last administered on 01/16/17 08:21; Admin Dose 90 MG; Start 01/06/17 at 21:00; Status Future Hold Furosemide (Lasix) 20 mg DAILY PO ; Start 01/07/17 at 09:00; Status Future Hold Bisacodyl (Dulcolax Supp) 10 mg DAILY PRN [place] CONSTIPATION; Start 01/06/17 at 11 :30 Guaifenesin (Robitussin Liquid Cup) 100 mg Q6H PRN PO COUGH Last administered on 01/08/17 07:54; Admin Dose 100 MG; Start 01/06/17 at 11:30 Levothyroxine Sodium (Synthroid) 112 mcg DAILY@06 PO Last administered on 05:25; Admin Dose 112 MCG; Start 01/07/17 at 06:00 Lisinopril (Zestril) 2.5 mg DAILY PO Last administered on 01/18/17 08:18; Admin Dose 2.5 MG; Start 01/07/17 at 09:00 Senna (Senokot) 2 tab HS PO Last administered on 01/25/17 21:22; Admin Dose 2 TAB; Start 01/06/17 at 21:00 Atorvastatin Calcium (Lipitor) 40 mg HS PO Last administered on 01/25/17 21:22 ; Admin Dose 40 MG; Start 01/14/17 at 21:00 Lidocaine (Xylocaine 4% (Mpf)) 5 ml ONCE PRN HHN BREATHING TREATMENT Last administered on 01/15/17 09:38; Admin Dose 5 ML; Start 01/15/17 at 09:30 Alendronate Sodium (Fosamax) 70 mg We@0630 PO Last administered on 01/21/17 07: 00; Admin Dose 70 MG; Start 01/21/17 at 06:30 Polyethylene Glycol (Miralax) 17 gm DAILY PRN PO constipation; Start 01/20/17 at 18:30 Enoxaparin Sodium (Lovenox) 40 mg DAILY SC Last administered on 01/21/17 09:37 ; Admin Dose 40 MG; Start 01/21/17 at 09:00 Insulin Glargine (Lantus) 13 unit DAILY@08 SC Last administered on 01/25/17 08 :25; Admin Dose 13 UNIT; Start 01/22/17 at 08:00; Status Future Hold Insulin Human NPH 6 unit 6 unit DAILY@20 SC Last administered on 01/25/17 20: 07; Admin Dose 6 UNIT; Start 01/23/17 at 20:00; Status Future Hold Potassium Chloride/Calcium Chloride/Dextrose/ Sodium Chloride (KCl/Ca Chloride/ D5-1/4ns) 1,030 ml @ 60 mls/hr [id number] IV Last administered on 01/27/17 08:52 ; Admin Dose 60 MLS/HR; Start 01/26/17 at 15:30 Morphine Sulfate (morphine) 1 mg Q2 PRN IV PAIN LEVEL 1-5; Start 01/26/17 at 14 :00 Morphine Sulfate (morphine) 2 mg Q2 PRN IV PAIN LEVEL 6-10; Start 01/26/17 at 14:00 Ondansetron HCl 4 mg 4 mg Q6H PRN IV NAUSEA AND/OR VOMITING; Start 01/26/17 at 14:00 Magnesium Sulfate/ Dextrose (Magnesium Sulfate 1 Gm/D5W) 100 ml @ 100 mls/hr PRN PRN IVPB PENDING LAB VALUE; Start 01/26/17 at 14:00 Diagnostic Test (Pha) (Accu-Chek) 1 ea Q1H XX Last administered on 01/27/17 09 :03; Admin Dose 1 EA; Start 01/26/17 at 21:00 Dextrose (D50w Syringe) 25 ml Q15M PRN IV Till BS 80 mg/dL or above x2; Start 01/26/17 at 20:30 Dextrose (D50w Syringe) 50 ml Q15M PRN IV Till BS 80 mg/dL or above x2; Start 01/26/17 at 20:30 ARTIE MARADIAGA MD Jan 27, 2017 09:12
[2017-01-27] MEDS: ALBUTEROL/IPRATROPIUM (NEB) 3 ML AMP HHN SCH ×3 (09:30→19:46)
[2017-01-27] MEDS ORDERED: INSULIN GLARGINE [LANtus] 3 ML PEN SC ONE (09:30)
--- NOTE | 2017-01-27 09:40 | PN ---
Date/Time of Note Date/Time of Note DATE: 01/27/17 TIME: 09:34 Assessment/Plan VTE Prophylaxis VTE Prophylaxis Intervention: SCD's Lines/Catheters IV Catheter Type (from Nrsg): Central Line Central line still needed: Yes Urinary Cath still in place: Yes Reason Cath still needed: urinary retention Assessment/Plan Chief Complaint/Hosp Course Assessment/Plan: 56 yo F with poorly controlled DM2 admitted for NSTEMI in setting DKA. Found to have multivessel CAD, s/p CABG POD # 1. Also with incidental finding of L sided subglottic lesion, likely 2/2 prolonged intubation and not in need of additional w/u per ENT 1. multivessel CAD, recent NSTEMI, ICM with EF IMPROVED from <25% to 40%. S/p CABG POD # 1 -Follow-up postop recommendations from CTS team. Monitor drainage from CT, PT per CTS rec's -cont current cardiac meds-->bb/lasix on hold for prior episodes of orthostasis earlier this admission 2. L subglottic lesion:ENT states 2/2 prolonged intubation and does not require further w/u-monitor for now 3. Severe obstructive and restrictive pulmonary disease-improved overall -Continue bronchodilators. 4. DM-1 (likely) with wide BG fluctuations -endo on consult for aid with insulin [id number] their recommendations , presently on insulin drip 5. Hypothyroidism. -Continue Synthroid. 6. Chronic anemia. cpm DVT prophylaxis: SCD's Critical care time spent today = 45 min. Problems: Subjective 24 Hr Interval Summary Free Text/Dictation Pt had CABG yesterday, and extubated today in AM. Started on insulin drip last night. Exam/Review of Systems Vital Signs Vitals Vital Signs Date Time Temp Pulse Resp B/P Pulse Ox O2 Delivery O2 Flow Rate FiO2 01/27/17 09:00 102 28 134/62 98 01/27/17 08:00 99.9 01/27/17 07:15 40 Intake and Output 01/26/17 01/26/17 01/27/17 15:00 23:00 07:00 Intake Total 3123 ml 645 ml 594.0 ml Output Total 4691 ml 981 ml 488 ml Balance -1568 ml -336 ml 106.0 ml Exam nad, lying in bed, daughter at bedside sitting up in bed no mrg lungs clear, CT in place abd soft no LE edema B/L Results Result Diagram: 01/27/17 0400 01/27/17 0400 Results 24 hrs Laboratory Tests Test 01/26/17 12:25 01/26/17 13:03 01/26/17 13:45 01/26/17 13:51 Bedside Glucose 136 64 L Blood Gas Specimen Source BLMV Arterial Blood Date Drawn 01/26/2017 1:25:04 PM Arterial Blood pH (Temp corrected) 7.390 Arterial Blood pCO2 (Temp correct) 45.2 H Arterial Blood pO2 (Temp corrected) 178.1 H Arterial Blood HCO3 26.7 H Arterial Blood Base Excess 1.4 Arterial Blood Oxygen Saturation 98.6 H Miguel Test N/A Arterial Blood Gas Puncture Site A-Line Arterial Blood Carboxyhemoglobin 0.2 Arterial Blood Methemoglobin 0.3 Mixed Venous Blood PO2 41.1 H Mixed Venous Blood O2 Saturation 78.4 H Mixed Venous Blood Total Hemoglobin 11.1 Mixed Venous Blood Oxyhemoglobin 77.9 Mixed Venous Bld Carboxyhemoglobin 0.3 Mixed Venous Blood Methemoglobin 0.4 Blood Gas A-a O2 Differential 272.4 H Oxyhemoglobin Percent 98.1 Total Hemoglobin 11.6 L Blood Gas Temperature 37.0 Blood Gas Respiration Rate 14.0 Blood Gas Actual Respiration Rate 14 Blood Gas Modality VENT - AC FiO2 70.0 Blood Gas Tidal Volume 500.0 Blood Gas Low PEEP Setting 5.0 Blood Gas Notified Whom JLD Blood Gas Notified Time 01/26/2017 1:42:50 PM White Blood Count 8.0 # Red Blood Count 3.26 L Hemoglobin 9.9 L Hematocrit 29.5 L Mean Corpuscular Volume 90.5 Mean Corpuscular Hemoglobin 30.4 Mean Corpuscular Hemoglobin Concent 33.6 Red Cell Distribution Width 17.6 H Platelet Count 166 # Mean Platelet Volume 9.3 Neutrophils % 76.1 Lymphocytes % 15.4 Monocytes % 6.0 Eosinophils % 1.6 Basophils % 0.3 Nucleated Red Blood Cells % 0.0 Neutrophils # (Manual) 6.1 Lymphocytes # 1.2 Monocytes # 0.5 Eosinophils # 0.1 Basophils # 0.0 Nucleated Red Blood Cells # 0.0 Prothrombin Time 17.3 #H Prothrombin Time Ratio 1.4 INR International Normalized Ratio 1.41 Activated Partial Thromboplast Time 29.1 Sodium Level 149 H Potassium Level 3.2 L Chloride Level 107 Carbon Dioxide Level 29 Anion Gap 16 Blood Urea Nitrogen 12 Creatinine 0.46 Glucose Level 73 # Calcium Level 8.7 Phosphorus Level 2.4 L Magnesium Level 3.0 H Total Bilirubin 2.5 H Direct Bilirubin 0.00 Indirect Bilirubin 2.5 H Aspartate Amino Transf (AST/SGOT) 34 Alanine Aminotransferase (ALT/SGPT) 31 Alkaline Phosphatase 46 Total Protein 5.5 L Albumin 3.5 Globulin 2.00 Albumin/Globulin Ratio 1.75 Test 01/26/17 14:19 01/26/17 14:33 01/26/17 16:41 01/26/17 17:10 Bedside Glucose 128 92 89 121 Test 01/26/17 18:17 01/26/17 19:57 01/26/17 20:17 01/26/17 20:19 Bedside Glucose 142 230 H 240 H White Blood Count 10.5 # Red Blood Count 3.89 L Hemoglobin 11.8 L Hematocrit 35.1 L Mean Corpuscular Volume 90.2 Mean Corpuscular Hemoglobin 30.3 Mean Corpuscular Hemoglobin Concent 33.6 Red Cell Distribution Width 18.7 H Platelet Count 179 Mean Platelet Volume 10.0 Neutrophils % 84.6 H Lymphocytes % 3.1 L Monocytes % 9.2 Eosinophils % 2.3 Basophils % 0.4 Nucleated Red Blood Cells % 0.0 Neutrophils # (Manual) 8.9 H Lymphocytes # 0.3 L Monocytes # 1.0 H Eosinophils # 0.2 Basophils # 0.0 Nucleated Red Blood Cells # 0.0 Prothrombin Time 14.9 H Prothrombin Time Ratio 1.2 INR International Normalized Ratio 1.16 Activated Partial Thromboplast Time 30.8 Sodium Level 142 Potassium Level 4.4 Chloride Level 108 Carbon Dioxide Level 28 Anion Gap 10 # Blood Urea Nitrogen 14 Creatinine 0.53 Glucose Level 240 #H Calcium Level 8.8 Phosphorus Level 3.2 Magnesium Level 2.3 Total Bilirubin 2.8 H Direct Bilirubin 0.00 Indirect Bilirubin 2.8 H Aspartate Amino Transf (AST/SGOT) 43 Alanine Aminotransferase (ALT/SGPT) 34 Alkaline Phosphatase 56 Total Protein 5.7 L Albumin 3.6 Globulin 2.10 Albumin/Globulin Ratio 1.71 Test 01/26/17 21:01 01/26/17 22:04 01/26/17 23:00 01/26/17 23:59 Bedside Glucose 221 H 195 198 160 Test 01/27/17 01:01 01/27/17 01:59 01/27/17 02:57 01/27/17 04:00 Bedside Glucose 163 169 146 White Blood Count 10.5 Red Blood Count 3.85 L Hemoglobin 11.6 L Hematocrit 35.0 L Mean Corpuscular Volume 90.9 Mean Corpuscular Hemoglobin 30.1 Mean Corpuscular Hemoglobin Concent 33.1 Red Cell Distribution Width 19.4 H Platelet Count 189 Mean Platelet Volume 10.2 Neutrophils % 82.4 H Lymphocytes % 5.5 L Monocytes % 10.2 Eosinophils % 1.1 Basophils % 0.5 Nucleated Red Blood Cells % 0.0 Neutrophils # (Manual) 8.6 H Lymphocytes # 0.6 L Monocytes # 1.1 H Eosinophils # 0.1 Basophils # 0.1 Nucleated Red Blood Cells # 0.0 Prothrombin Time 14.6 H Prothrombin Time Ratio 1.1 INR International Normalized Ratio 1.14 Activated Partial Thromboplast Time 30.8 Sodium Level 144 Potassium Level 4.1 Chloride Level 109 Carbon Dioxide Level 29 Anion Gap 10 Blood Urea Nitrogen 10 Creatinine 0.49 Glucose Level 141 # Calcium Level 9.2 Magnesium Level 2.1 Test 01/27/17 04:02 01/27/17 05:00 01/27/17 05:03 01/27/17 05:04 Bedside Glucose 137 141 Blood Gas Specimen Source Blood arterial Arterial Blood Date Drawn 01/27/2017 5:05:18 AM Arterial Blood pH (Temp corrected) 7.402 Arterial Blood pCO2 (Temp correct) 42.6 Arterial Blood pO2 (Temp corrected) 129.7 H Arterial Blood HCO3 25.9 Arterial Blood Base Excess 1.0 Arterial Blood Oxygen Saturation 98.3 H Miguel Test N/A Arterial Blood Gas Puncture Site A-Line Arterial Blood Carboxyhemoglobin 0.1 Arterial Blood Methemoglobin 0.3 Blood Gas A-a O2 Differential 106.5 H Oxyhemoglobin Percent 97.9 Total Hemoglobin 12.6 Blood Gas Temperature 37.0 Blood Gas Modality VENT - CPAP FiO2 40.0 Blood Gas Low PEEP Setting 5.0 Blood Gas Pressure Support 8 Blood Gas Notified Whom BR Blood Gas Notified Time 01/27/2017 5:10:50 AM Lab Scanned Report BLOOD TRANSFUSION Test 01/27/17 06:02 01/27/17 06:20 01/27/17 07:07 01/27/17 08:05 Bedside Glucose 171 143 135 Blood Gas Specimen Source Blood arterial Arterial Blood Date Drawn 01/27/2017 6:20:01 AM Arterial Blood pH (Temp corrected) 7.382 Arterial Blood pCO2 (Temp correct) 42.0 Arterial Blood pO2 (Temp corrected) 114.7 H Arterial Blood HCO3 24.4 Arterial Blood Base Excess -0.7 Arterial Blood Oxygen Saturation 97.9 Miguel Test N/A Arterial Blood Gas Puncture Site A-Line Arterial Blood Carboxyhemoglobin 0.1 Arterial Blood Methemoglobin 0.3 Blood Gas A-a O2 Differential 122.2 H Oxyhemoglobin Percent 97.5 Total Hemoglobin 12.7 Blood Gas Temperature 37.0 Blood Gas Modality CPAP FiO2 40.0 Blood Gas Low PEEP Setting 5.0 Blood Gas Pressure Support 5 Blood Gas Notified Whom ALFREDO PANIAGUA Blood Gas Notified Time 01/27/2017 6:26:52 AM Test 01/27/17 09:02 Bedside Glucose 150 Medications Medications Current Medications Acetaminophen (Tylenol Tab) 650 mg Q6H PRN PO PAIN LEVEL 1-3 OR FEVER; Start at 11:30 Acetaminophen (Tylenol Supp) 650 mg Q6H PRN [place] PAIN LEVEL 1-3 OR FEVER; Start 01/06/17 at 11:30 Aspirin (Halfprin) 81 mg DAILY PO Last administered on 01/25/17 08:32; Admin Dose 81 MG; Start 01/07/17 at 09:00 Duloxetine HCl (Cymbalta) 20 mg DAILY PO Last administered on 01/25/17 08:31; Admin Dose 20 MG; Start 01/07/17 at 09:00 Gabapentin (Neurontin) 300 mg TID PO Last administered on 01/25/17 21:22; Admin Dose 300 MG; Start 01/06/17 at 13:00 Metoprolol Tartrate (Lopressor) 12.5 mg BID PO ; Start 01/06/17 at 21:00; Status Future Hold Ticagrelor (Brilinta) 90 mg BID PO Last administered on 01/16/17 08:21; Admin Dose 90 MG; Start 01/06/17 at 21:00; Status Future Hold Furosemide (Lasix) 20 mg DAILY PO ; Start 01/07/17 at 09:00; Status Future Hold Bisacodyl (Dulcolax Supp) 10 mg DAILY PRN [place] CONSTIPATION; Start 01/06/17 at 11 :30 Guaifenesin (Robitussin Liquid Cup) 100 mg Q6H PRN PO COUGH Last administered on 01/08/17 07:54; Admin Dose 100 MG; Start 01/06/17 at 11:30 Levothyroxine Sodium (Synthroid) 112 mcg DAILY@06 PO Last administered on 05:25; Admin Dose 112 MCG; Start 01/07/17 at 06:00 Lisinopril (Zestril) 2.5 mg DAILY PO Last administered on 01/18/17 08:18; Admin Dose 2.5 MG; Start 01/07/17 at 09:00 Senna (Senokot) 2 tab HS PO Last administered on 01/25/17 21:22; Admin Dose 2 TAB; Start 01/06/17 at 21:00 Atorvastatin Calcium (Lipitor) 40 mg HS PO Last administered on 01/25/17 21:22 ; Admin Dose 40 MG; Start 01/14/17 at 21:00 Lidocaine (Xylocaine 4% (Mpf)) 5 ml ONCE PRN HHN BREATHING TREATMENT Last administered on 01/15/17 09:38; Admin Dose 5 ML; Start 01/15/17 at 09:30 Alendronate Sodium (Fosamax) 70 mg We@0630 PO Last administered on 01/21/17 07: 00; Admin Dose 70 MG; Start 01/21/17 at 06:30 Polyethylene Glycol (Miralax) 17 gm DAILY PRN PO constipation; Start 01/20/17 at 18:30 Enoxaparin Sodium (Lovenox) 40 mg DAILY SC Last administered on 01/21/17 09:37 ; Admin Dose 40 MG; Start 01/21/17 at 09:00 Insulin Glargine (Lantus) 13 unit DAILY@08 SC Last administered on 01/25/17 08 :25; Admin Dose 13 UNIT; Start 01/22/17 at 08:00; Status Future hold Insulin Human NPH 6 unit 6 unit DAILY@20 SC Last administered on 01/25/17 20: 07; Admin Dose 6 UNIT; Start 01/23/17 at 20:00; Status Future Hold Potassium Chloride/Calcium Chloride/Dextrose/ Sodium Chloride (KCl/Ca Chloride/ D5-1/4ns) 1,030 ml @ 60 mls/hr [id number] Last administered on 01/27/17 08:52 ; Admin Dose 60 MLS/HR; Start 01/26/17 at 15:30 Morphine Sulfate (morphine) 1 mg Q2 PRN IV PAIN LEVEL 1-5; Start 01/26/17 at 14 :00 Morphine Sulfate (morphine) 2 mg Q2 PRN IV PAIN LEVEL 6-10; Start 01/26/17 at 14:00 Ondansetron HCl 4 mg 4 mg Q6H PRN IV NAUSEA AND/OR VOMITING; Start 01/26/17 at 14:00 Magnesium Sulfate/ Dextrose (Magnesium Sulfate 1 Gm/D5W) 100 ml @ 100 mls/hr PRN PRN IVPB PENDING LAB VALUE; Start 01/26/17 at 14:00 Diagnostic Test (Pha) (Accu-Chek) 1 ea Q1H XX Last administered on 01/27/17 09 :03; Admin Dose 1 EA; Start 01/26/17 at 21:00 Dextrose (D50w Syringe) 25 ml Q15M PRN IV Till BS 80 mg/dL or above x2; Start 01/26/17 at 20:30 Dextrose (D50w Syringe) 50 ml Q15M PRN IV Till BS 80 mg/dL or above x2; Start 01/26/17 at 20:30 Insulin Glargine (Lantus) 13 unit ONCE ONCE SC ; Start 01/27/17 at 09:30; Stop 01/27/17 at 09:31; Status TANIYA SPEARS Jan 27, 2017 09:39
--- NOTE | 2017-01-27 09:53 | CONS ---
Date/Time of Note Date/Time of Note DATE: 01/27/17 TIME: 09:51 Consult Date/Type/Reason Admit Date/Time Jan 06, 2017 at 10:49 Type of Consultation: Pulmonary Ordering Provider: TANIYA OLMSTEAD Subjective Patient stable following multivessel coronary artery bypass graft surgery she is awake alert and oriented on mechanical ventilation. Currently tolerating CPAP trial. Objective Vital Signs Date Time Temp Pulse Resp B/P Pulse Ox O2 Delivery O2 Flow Rate FiO2 01/27/17 09:00 102 28 134/62 98 01/27/17 08:00 99.9 01/27/17 07:15 40 Intake and Output 01/26/17 01/26/17 01/27/17 15:00 23:00 07:00 Intake Total 3123 ml 645 ml 594.0 ml Output Total 4691 ml 981 ml 488 ml Balance -1568 ml -336 ml 106.0 ml Exam PHYSICAL EXAMINATION GENERAL: Elderly lady on mechanical ventilation appears comfortable no acute distress VITAL SIGNS: see below. HEENT: Pupils equal, round, and reactive to light. Tracheostomy site clean and intact. CARDIAC: S1, S2, 1/6 systolic ejection murmur CHEST: Diminished air entry bilaterally. ABDOMEN: Mildly distended. Bowel sounds present no guarding or rebound EXTREMITIES: No cyanosis, clubbing edema +1 NEUROLOGIC: Generalized weakness Results/Medications Result Diagram: 01/27/17 0400 01/27/17 0400 Results 24 hrs Laboratory Tests Test 01/26/17 12:25 01/26/17 13:03 01/26/17 13:45 01/26/17 13:51 Bedside Glucose 136 64 L Blood Gas Specimen Source BLMV Arterial Blood Date Drawn 01/26/2017 1:25:04 PM Arterial Blood pH (Temp corrected) 7.390 Arterial Blood pCO2 (Temp correct) 45.2 H Arterial Blood pO2 (Temp corrected) 178.1 H Arterial Blood HCO3 26.7 H Arterial Blood Base Excess 1.4 Arterial Blood Oxygen Saturation 98.6 H Miguel Test N/A Arterial Blood Gas Puncture Site A-Line Arterial Blood Carboxyhemoglobin 0.2 Arterial Blood Methemoglobin 0.3 Mixed Venous Blood PO2 41.1 H Mixed Venous Blood O2 Saturation 78.4 H Mixed Venous Blood Total Hemoglobin 11.1 Mixed Venous Blood Oxyhemoglobin 77.9 Mixed Venous Bld Carboxyhemoglobin 0.3 Mixed Venous Blood Methemoglobin 0.4 Blood Gas A-a O2 Differential 272.4 H Oxyhemoglobin Percent 98.1 Total Hemoglobin 11.6 L Blood Gas Temperature 37.0 Blood Gas Respiration Rate 14.0 Blood Gas Actual Respiration Rate 14 Blood Gas Modality VENT - AC FiO2 70.0 Blood Gas Tidal Volume 500.0 Blood Gas Low PEEP Setting 5.0 Blood Gas Notified Whom JLD Blood Gas Notified Time 01/26/2017 1:42:50 PM White Blood Count 8.0 # Red Blood Count 3.26 L Hemoglobin 9.9 L Hematocrit 29.5 L Mean Corpuscular Volume 90.5 Mean Corpuscular Hemoglobin 30.4 Mean Corpuscular Hemoglobin Concent 33.6 Red Cell Distribution Width 17.6 H Platelet Count 166 # Mean Platelet Volume 9.3 Neutrophils % 76.1 Lymphocytes % 15.4 Monocytes % 6.0 Eosinophils % 1.6 Basophils % 0.3 Nucleated Red Blood Cells % 0.0 Neutrophils # (Manual) 6.1 Lymphocytes # 1.2 Monocytes # 0.5 Eosinophils # 0.1 Basophils # 0.0 Nucleated Red Blood Cells # 0.0 Prothrombin Time 17.3 #H Prothrombin Time Ratio 1.4 INR International Normalized Ratio 1.41 Activated Partial Thromboplast Time 29.1 Sodium Level 149 H Potassium Level 3.2 L Chloride Level 107 Carbon Dioxide Level 29 Anion Gap 16 Blood Urea Nitrogen 12 Creatinine 0.46 Glucose Level 73 # Calcium Level 8.7 Phosphorus Level 2.4 L Magnesium Level 3.0 H Total Bilirubin 2.5 H Direct Bilirubin 0.00 Indirect Bilirubin 2.5 H Aspartate Amino Transf (AST/SGOT) 34 Alanine Aminotransferase (ALT/SGPT) 31 Alkaline Phosphatase 46 Total Protein 5.5 L Albumin 3.5 Globulin 2.00 Albumin/Globulin Ratio 1.75 Test 01/26/17 14:19 01/26/17 14:33 01/26/17 16:41 01/26/17 17:10 Bedside Glucose 128 92 89 121 Test 01/26/17 18:17 01/26/17 19:57 01/26/17 20:17 01/26/17 20:19 Bedside Glucose 142 230 H 240 H White Blood Count 10.5 # Red Blood Count 3.89 L Hemoglobin 11.8 L Hematocrit 35.1 L Mean Corpuscular Volume 90.2 Mean Corpuscular Hemoglobin 30.3 Mean Corpuscular Hemoglobin Concent 33.6 Red Cell Distribution Width 18.7 H Platelet Count 179 Mean Platelet Volume 10.0 Neutrophils % 84.6 H Lymphocytes % 3.1 L Monocytes % 9.2 Eosinophils % 2.3 Basophils % 0.4 Nucleated Red Blood Cells % 0.0 Neutrophils # (Manual) 8.9 H Lymphocytes # 0.3 L Monocytes # 1.0 H Eosinophils # 0.2 Basophils # 0.0 Nucleated Red Blood Cells # 0.0 Prothrombin Time 14.9 H Prothrombin Time Ratio 1.2 INR International Normalized Ratio 1.16 Activated Partial Thromboplast Time 30.8 Sodium Level 142 Potassium Level 4.4 Chloride Level 108 Carbon Dioxide Level 28 Anion Gap 10 # Blood Urea Nitrogen 14 Creatinine 0.53 Glucose Level 240 #H Calcium Level 8.8 Phosphorus Level 3.2 Magnesium Level 2.3 Total Bilirubin 2.8 H Direct Bilirubin 0.00 Indirect Bilirubin 2.8 H Aspartate Amino Transf (AST/SGOT) 43 Alanine Aminotransferase (ALT/SGPT) 34 Alkaline Phosphatase 56 Total Protein 5.7 L Albumin 3.6 Globulin 2.10 Albumin/Globulin Ratio 1.71 Test 01/26/17 21:01 01/26/17 22:04 01/26/17 23:00 01/26/17 23:59 Bedside Glucose 221 H 195 198 160 Test 01/27/17 01:01 01/27/17 01:59 01/27/17 02:57 01/27/17 04:00 Bedside Glucose 163 169 146 White Blood Count 10.5 Red Blood Count 3.85 L Hemoglobin 11.6 L Hematocrit 35.0 L Mean Corpuscular Volume 90.9 Mean Corpuscular Hemoglobin 30.1 Mean Corpuscular Hemoglobin Concent 33.1 Red Cell Distribution Width 19.4 H Platelet Count 189 Mean Platelet Volume 10.2 Neutrophils % 82.4 H Lymphocytes % 5.5 L Monocytes % 10.2 Eosinophils % 1.1 Basophils % 0.5 Nucleated Red Blood Cells % 0.0 Neutrophils # (Manual) 8.6 H Lymphocytes # 0.6 L Monocytes # 1.1 H Eosinophils # 0.1 Basophils # 0.1 Nucleated Red Blood Cells # 0.0 Prothrombin Time 14.6 H Prothrombin Time Ratio 1.1 INR International Normalized Ratio 1.14 Activated Partial Thromboplast Time 30.8 Sodium Level 144 Potassium Level 4.1 Chloride Level 109 Carbon Dioxide Level 29 Anion Gap 10 Blood Urea Nitrogen 10 Creatinine 0.49 Glucose Level 141 # Calcium Level 9.2 Magnesium Level 2.1 Test 01/27/17 04:02 01/27/17 05:00 01/27/17 05:03 01/27/17 05:04 Bedside Glucose 137 141 Blood Gas Specimen Source Blood arterial Arterial Blood Date Drawn 01/27/2017 5:05:18 AM Arterial Blood pH (Temp corrected) 7.402 Arterial Blood pCO2 (Temp correct) 42.6 Arterial Blood pO2 (Temp corrected) 129.7 H Arterial Blood HCO3 25.9 Arterial Blood Base Excess 1.0 Arterial Blood Oxygen Saturation 98.3 H Miguel Test N/A Arterial Blood Gas Puncture Site A-Line Arterial Blood Carboxyhemoglobin 0.1 Arterial Blood Methemoglobin 0.3 Blood Gas A-a O2 Differential 106.5 H Oxyhemoglobin Percent 97.9 Total Hemoglobin 12.6 Blood Gas Temperature 37.0 Blood Gas Modality VENT - CPAP FiO2 40.0 Blood Gas Low PEEP Setting 5.0 Blood Gas Pressure Support 8 Blood Gas Notified Whom BR Blood Gas Notified Time 01/27/2017 5:10:50 AM Lab Scanned Report BLOOD TRANSFUSION Test 01/27/17 06:02 01/27/17 06:20 01/27/17 07:07 01/27/17 08:05 Bedside Glucose 171 143 135 Blood Gas Specimen Source Blood arterial Arterial Blood Date Drawn 01/27/2017 6:20:01 AM Arterial Blood pH (Temp corrected) 7.382 Arterial Blood pCO2 (Temp correct) 42.0 Arterial Blood pO2 (Temp corrected) 114.7 H Arterial Blood HCO3 24.4 Arterial Blood Base Excess -0.7 Arterial Blood Oxygen Saturation 97.9 Miguel Test N/A Arterial Blood Gas Puncture Site A-Line Arterial Blood Carboxyhemoglobin 0.1 Arterial Blood Methemoglobin 0.3 Blood Gas A-a O2 Differential 122.2 H Oxyhemoglobin Percent 97.5 Total Hemoglobin 12.7 Blood Gas Temperature 37.0 Blood Gas Modality CPAP FiO2 40.0 Blood Gas Low PEEP Setting 5.0 Blood Gas Pressure Support 5 Blood Gas Notified Whom ALFREDO PANIAGUA Blood Gas Notified Time 01/27/2017 6:26:52 AM Test 01/27/17 09:02 Bedside Glucose 150 Medications Current Medications Acetaminophen (Tylenol Tab) 650 mg Q6H PRN PO PAIN LEVEL 1-3 OR FEVER; Start 7 /25/17 at 11:30 Acetaminophen (Tylenol Supp) 650 mg Q6H PRN GA PAIN LEVEL 1-3 OR FEVER; Start 01/06/17 at 11:30 Aspirin (Halfprin) 81 mg DAILY PO Last administered on 01/25/17 08:32; Admin Dose 81 MG; Start 01/07/17 at 09:00 Duloxetine HCl (Cymbalta) 20 mg DAILY PO Last administered on 01/25/17 08:31; Admin Dose 20 MG; Start 01/07/17 at 09:00 Gabapentin (Neurontin) 300 mg TID PO Last administered on 01/25/17 21:22; Admin Dose 300 MG; Start 01/06/17 at 13:00 Metoprolol Tartrate (Lopressor) 12.5 mg BID PO ; Start 01/06/17 at 21:00; Status Future Hold Ticagrelor (Brilinta) 90 mg BID PO Last administered on 01/16/17 08:21; Admin Dose 90 MG; Start 01/06/17 at 21:00; Status Future Hold Furosemide (Lasix) 20 mg DAILY PO ; Start 01/07/17 at 09:00; Status Future Hold Bisacodyl (Dulcolax Supp) 10 mg DAILY PRN GA CONSTIPATION; Start 01/06/17 at 11 :30 Guaifenesin (Robitussin Liquid Cup) 100 mg Q6H PRN PO COUGH Last administered on 01/08/17 07:54; Admin Dose 100 MG; Start 01/06/17 at 11:30 Levothyroxine Sodium (Synthroid) 112 mcg DAILY@06 PO Last administered on 05:25; Admin Dose 112 MCG; Start 01/07/17 at 06:00 Lisinopril (Zestril) 2.5 mg DAILY PO Last administered on 01/18/17 08:18; Admin Dose 2.5 MG; Start 01/07/17 at 09:00 Senna (Senokot) 2 tab HS PO Last administered on 01/25/17 21:22; Admin Dose 2 TAB; Start 01/06/17 at 21:00 Atorvastatin Calcium (Lipitor) 40 mg HS PO Last administered on 01/25/17 21:22 ; Admin Dose 40 MG; Start 01/14/17 at 21:00 Lidocaine (Xylocaine 4% (Mpf)) 5 ml ONCE PRN HHN BREATHING TREATMENT Last administered on 01/15/17 09:38; Admin Dose 5 ML; Start 01/15/17 at 09:30 Alendronate Sodium (Fosamax) 70 mg We@0630 PO Last administered on 01/21/17 07: 00; Admin Dose 70 MG; Start 01/21/17 at 06:30 Polyethylene Glycol (Miralax) 17 gm DAILY PRN PO constipation; Start 01/20/17 at 18:30 Enoxaparin Sodium (Lovenox) 40 mg DAILY SC Last administered on 01/21/17 09:37 ; Admin Dose 40 MG; Start 01/21/17 at 09:00 Insulin Glargine (Lantus) 13 unit DAILY@08 SC Last administered on 01/25/17 08 :25; Admin Dose 13 UNIT; Start 01/22/17 at 08:00; Status Future hold Insulin Human NPH 6 unit 6 unit DAILY@20 SC Last administered on 01/25/17 20: 07; Admin Dose 6 UNIT; Start 01/23/17 at 20:00; Status Future Hold Potassium Chloride/Calcium Chloride/Dextrose/ Sodium Chloride (KCl/Ca Chloride/ D5-1/4ns) 1,030 ml @ 60 mls/hr [id number] IV Last administered on 01/27/17 08:52 ; Admin Dose 60 MLS/HR; Start 01/26/17 at 15:30 Morphine Sulfate (morphine) 1 mg Q2 PRN IV PAIN LEVEL 1-5; Start 01/26/17 at 14 :00 Morphine Sulfate (morphine) 2 mg Q2 PRN IV PAIN LEVEL 6-10; Start 01/26/17 at 14:00 Ondansetron HCl 4 mg 4 mg Q6H PRN IV NAUSEA AND/OR VOMITING; Start 01/26/17 at 14:00 Magnesium Sulfate/ Dextrose (Magnesium Sulfate 1 Gm/D5W) 100 ml @ 100 mls/hr PRN PRN IVPB PENDING LAB VALUE; Start 01/26/17 at 14:00 Diagnostic Test (Pha) (Accu-Chek) 1 ea Q1H XX Last administered on 01/27/17 09 :03; Admin Dose 1 EA; Start 01/26/17 at 21:00 Dextrose (D50w Syringe) 25 ml Q15M PRN IV Till BS 80 mg/dL or above x2; Start 01/26/17 at 20:30 Dextrose (D50w Syringe) 50 ml Q15M PRN IV Till BS 80 mg/dL or above x2; Start 01/26/17 at 20:30 Assessment/Plan Chief Complaint/Hosp Course assessment 1. Severe obstructive and restrictive lung disease on recent pulmonary function testing. Significantly diminished DLCO. Patient status post hypoxemic respiratory failure. Currently not O2 dependent.Status post coronary artery bypass graft surgery stable on CPAP trial 2. Recent non-ST elevation CO. Stable following coronary artery bypass graft surgery. 3. Significant deconditioning. Plan 1. Continue cardiac recommendations 2. Continue bronchodilators as needed 3. Chest tube management per thoracic surgery 4. Extubation, incentive spirometry, advance diet as tolerated. Problems: STEFANI GONZALES MD, [facility] Jan 27, 2017 09:53
[2017-01-27 09:59] LABS: ANISOCYTOSIS 2+ (0-0); EOSINOPHILS % (M) 2 % (0-7); GIANT THROMBO% (M) 1 % (0-0); MICROCYTOSIS 2+ (0-0); MONOCYTES % (M) 9 % (0-11); PLATELET ESTIMATE NORMAL; POLYCHROMASIA 1+ (0-0)
[2017-01-27] MEDS: morphine 2 MG INJ IV PRN (10:15)
--- NOTE | 2017-01-27 14:30 | PN ---
Date/Time of Note Date/Time of Note DATE: 01/27/17 TIME: 14:26 Assessment/Plan Lines/Catheters IV Catheter Type (from Nrsg): Central Line Mccray in Place (from Nrsg): Yes Assessment/Plan Chief Complaint/Hosp Course Patient with coronary artery disease Status post myocardial infarction Right carotid occlusion COPD Status post coronary artery bypass grafting DEE to LAD Saphenous vein graft to the obtuse marginal branch of the circumflex Patient was extubated this morning Hemodynamically stable Off all drips except for insulin We will continue chest tube suction Will DC Topock-Philippe catheter DC Mccray DC A-line Up to the chair and pulmonary toilet Discussed with the referring physicians Problems: Subjective 24 Hr Interval Summary Extubated Constitutional: improved Pain Control: mild Exam/Review of Systems Vital Signs Vitals Vital Signs Date Time Temp Pulse Resp B/P Pulse Ox O2 Delivery O2 Flow Rate FiO2 01/27/17 13:29 104 27 99 Venti Mask 15.0 50 01/27/17 12:30 130/49 01/27/17 10:00 100.1 Intake and Output 01/26/17 01/26/17 01/27/17 15:00 23:00 07:00 Intake Total 3123 ml 645 ml 594.0 ml Output Total 4691 ml 981 ml 488 ml Balance -1568 ml -336 ml 106.0 ml Exam Eyes: EOMI, nl conjunctiva, nl lids, nl sclera ENMT: mucosa pink and moist, nl external ears & nose, nl lips & teeth, nl nasal mucosa & septum Neck: non-tender, supple Respiratory: clear to auscultation, normal air movement Cardiovascular: nl pulses, regular rate and rhythm Gastrointestinal: nl liver, spleen, non-tender, soft Results Result Diagram: 01/27/17 0400 01/27/17 0400 CHELA ALVARENGA MD Jan 27, 2017 14:30
[2017-01-27] MEDS: NPH, HUMAN INSULIN ISOPHANE 3ML VIAL SC SCH (20:00)
[2017-01-27] MEDS: ATORVASTATIN 40 MG TAB PO SCH (20:54)
[2017-01-27] MEDS: POTASSIUM CHLORIDE 40 MEQ in LACTATED RINGER'S 1,000 ML IV SCH (20:54)
[2017-01-27] MEDS: SENNA TAB PO SCH (20:55)
[2017-01-27] MEDS: INSULIN ASPART [NOVOLOG] 3 ML PEN SC SCH (21:00)
--- NOTE | 2017-01-27 21:07 | CONS ---
Date/Time of Note Date/Time of Note DATE: 01/27/17 TIME: 20:59 Assessment/Plan Assessment/Plan Problems: (1) Type 1 diabetes mellitus with diabetic polyneuropathy Status: Chronic Comment: Excellent glycemic control on insulin drip. After extubation this am , resumed lantus 13 units. Will resume NPH tonight to control fasting hyperglycemia. Stop IV dextrose and insulin drip. When pt. able to swallow, will resume mealtime Novolog. Consultation Date/Type/Reason Admit Date/Time Jan 06, 2017 at 10:49 Initial Consult Date 01/14/17 Type of Consultation: Endocrinology Reason for Consultation T1DM OOC Referring Provider: TANIYA OLMSTEAD 24 HR Interval Summary Subjective hx not possible: pt non-verbal (s/p CABG, awake, extubated, on O2 by mask, nods head but not speaking) Exam/Review of Systems Vital Signs Vitals VS - Last 72 Hours, by Label Date Time Temp Pulse Resp B/P Pulse Ox O2 Delivery O2 Flow Rate FiO2 01/27/17 19:46 99 23 100 Venti Mask 9.0 35 01/27/17 18:00 99.4 97 26 128/67 99 Venturi Mask 9.0 01/27/17 17:00 97 24 124/55 100 Venturi Mask 9.0 01/27/17 16:43 15.0 50 01/27/17 16:00 97 26 131/49 100 01/27/17 16:00 97 01/27/17 16:00 99.2 97 26 131/49 100 Mask 10.0 01/27/17 15:45 100 27 130/48 100 Mask 15.0 01/27/17 15:30 101 26 130/46 99 01/27/17 15:30 101 26 130/46 99 Mask 15.0 01/27/17 15:15 101 23 124/49 98 Mask 15.0 01/27/17 15:00 105 24 131/52 100 Room Air 01/27/17 15:00 105 24 131/52 100 01/27/17 14:30 102 25 128/47 98 01/27/17 14:00 107 26 135/57 98 01/27/17 13:30 99 23 139/51 84 01/27/17 13:29 104 27 99 Venti Mask 15.0 50 01/27/17 13:00 100 25 134/53 96 8/15/17 12:30 101 23 130/49 97 815/17 12:00 101 25 137/51 96 15/17 12:00 105 15/17 11:30 105 28 140/51 96 815/17 11:00 103 27 126/55 97 15/17 10:30 102 29 128/49 97 15/17 10:00 100.1 103 28 135/53 97 15/17 09:41 98 26 97 Nasal Cannula 6.0 17 09:30 Nasal Cannula 5.0 15/17 09:30 101 23 136/51 91 15/17 09:25 6.0 01/27/17 09:00 102 28 134/62 98 01/27/17 08:00 99.9 98 25 132/57 98 15/17 08:00 40 17 08:00 97 01/27/17 07:30 96 26 127/48 98 15/17 07:15 100 25 98 40 15/17 07:00 98 26 131/49 98 15/17 06:30 100 27 139/53 98 15/17 06:00 97 25 132/52 98 15/ 05:48 106 25 98 40 15/17 05:30 98 23 123/43 98 15/17 05:17 99 25 98 40 15/17 05:00 40 15/17 05:00 99 24 127/55 98 15/17 04:34 98 23 98 40 815/17 04:30 100 33 135/52 98 15/17 04:00 100.5 97 25 128/54 98 15/17 04:00 96 15/17 04:00 40 15/17 03:38 106 15/17 03:37 99 24 99 40 15/17 03:30 96 23 115/46 97 15/17 03:00 96 23 119/46 98 15/17 02:30 98 24 121/47 98 15/17 02:00 96 25 121/52 98 15/17 01:55 95 23 99 40 815/17 01:30 94 22 116/43 99 8/15/17 01:00 96 26 109/48 88 8/15/17 00:30 99 24 113/43 99 8/15/17 00:00 99 8/15/17 00:00 100.9 99 24 120/57 99 8/14/17 23:44 101 24 99 40 8/14/17 23:30 40 8/14/17 23:30 97 23 103/41 98 8/14/17 23:00 98 23 106/54 99 8/14/17 22:45 99 26 98 40 8/14/17 22:30 98 24 105/45 98 8/14/17 22:15 97 23 106/42 98 8/14/17 22:00 98 23 114/52 98 8/14/17 21:45 98 21 109/44 98 8/14/17 21:37 99 22 98 40 8/14/17 21:30 98 19 107/44 98 8/14/17 21:15 98 20 105/43 98 8/14/17 21:00 99 26 108/43 98 8/14/17 20:58 99 23 98 40 8/14/17 20:53 101 28 98 40 8/14/17 20:45 101 29 111/49 99 8/14/17 20:30 102 27 124/50 98 8/14/17 20:25 101 27 98 40 8/14/17 20:15 100 24 117/48 98 814/17 20:00 40 814/17 20:00 100.2 98 22 120/51 98 8/14/17 20:00 97 814/17 20:00 99 22 98 40 814/17 19:45 98 19 122/51 98 8/14/17 19:30 99 18 131/57 98 8/14/17 19:15 98 19 119/52 99 8/14/17 19:12 98 19 98 40 8/14/17 19:00 97 16 107/48 98 8/14/17 18:45 97 16 109/49 98 8/14/17 18:30 97 16 109/49 98 8/14/17 18:15 97 16 110/49 99 8/14/17 18:00 96 16 110/50 98 8/14/17 17:45 95 18 98/45 98 8/14/17 17:30 95 17 106/49 99 8/14/17 17:15 95 16 105/48 99 01/26/17 17:00 99.4 96 19 113/54 99 17 16:55 96 18 99 40 01/26/17 16:45 96 15 103/47 99 17 16:30 100 21 113/54 100 01/26/17 16:15 94 14 101/48 99 17 16:00 97 01/26/17 16:00 99.3 97 15 92/45 99 17 15:45 98 14 102/46 99 17 15:30 96 15 100/44 99 01/26/17 15:15 97 14 93/38 98 01/26/17 15:00 40 01/26/17 15:00 99 14 91/50 100 01/26/17 14:50 99 14 100 70 01/26/17 14:45 99.3 102 18 110/44 100 01/26/17 14:30 98 14 104/39 100 01/26/17 14:15 100 14 114/40 100 01/26/17 14:15 50 01/26/17 14:00 102 14 86/49 100 01/26/17 13:45 105 14 100 01/26/17 13:30 104 14 110/42 100 01/26/17 13:15 105 14 115/42 100 01/26/17 13:15 105 14 100 70 01/26/17 13:00 107 14 128/44 100 01/26/17 12:45 98.3 114 14 149/51 100 01/26/17 12:32 109 01/26/17 12:30 70 01/26/17 12:25 114 14 100 70 01/26/17 02:57 98.4 78 18 107/51 97 01/25/17 20:22 96.7 90 20 108/54 98 01/25/17 14:33 98.1 84 20 94/57 97 01/25/17 08:53 98.2 87 18 101/50 96 01/25/17 02:00 98.1 73 18 118/58 97 Vital Signs Date Time Temp Pulse Resp B/P Pulse Ox O2 Delivery O2 Flow Rate FiO2 01/27/17 19:46 99 23 100 Venti Mask 9.0 35 01/27/17 18:00 99.4 128/67 Intake and Output 8/14/17 8/14/17 8/15/17 15:00 23:00 07:00 Intake Total 3123 ml 645 ml 594.0 ml Output Total 4691 ml 981 ml 488 ml Balance -1568 ml -336 ml 106.0 ml Exam Constitutional: alert, frail, non-verbal Psych: nl mood/affect, no complaints Respiratory: clear to auscultation, normal air movement Cardiovascular: nl pulses, regular rate and rhythm, No edema, No murmurs/extra sounds, No rub Gastrointestinal: bowel sounds, nl liver, spleen, non-tender, soft, No mass, No rebound or guarding Musculoskeletal: nl extremities to inspection Extremities: normal pulses, No clubbing, No cyanosis, No edema 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: FRONT OFFICE HELP II-XII intact, lethargic Additional Comments Bedside Glucose - 72 Hours Test 01/25/17 02:05 01/25/17 08:17 01/25/17 10:20 01/25/17 11:54 Bedside Glucose 84mg/dL (70-220) 168mg/dL (70-220) 130mg/dL (70-220) 181mg/dL (70-220) Test 01/25/17 13:39 01/25/17 17:32 01/25/17 20:01 01/25/17 21:25 Bedside Glucose 310mg/dL (70-220) H 234mg/dL (70-220) H 102mg/dL (70-220) 57mg/dL (70-220) L Test 01/25/17 22:09 01/25/17 22:28 01/25/17 23:04 01/25/17 23:17 Bedside Glucose 72mg/dL (70-220) 58mg/dL (70-220) L 129mg/dL (70-220) 114mg/dL (70-220) Test 01/26/17 02:17 01/26/17 02:51 01/26/17 06:46 01/26/17 07:19 Bedside Glucose 81mg/dL (70-220) 159mg/dL (70-220) 144mg/dL (70-220) 160mg/dL (70-220) Test 01/26/17 12:25 01/26/17 13:51 01/26/17 14:19 01/26/17 14:33 Bedside Glucose 136mg/dL (70-220) 64mg/dL (70-220) L 128mg/dL (70-220) 92mg/dL (70-220) Test 01/26/17 16:41 01/26/17 17:10 01/26/17 18:17 01/26/17 19:57 Bedside Glucose 89mg/dL (70-220) 121mg/dL (70-220) 142mg/dL (70-220) 230mg/dL (70-220) H Test 01/26/17 20:19 01/26/17 21:01 01/26/17 22:04 01/26/17 23:00 Bedside Glucose 240mg/dL (70-220) H 221mg/dL (70-220) H 195mg/dL (70-220) 198mg/dL (70-220) Test 01/26/17 23:59 01/27/17 01:01 01/27/17 01:59 01/27/17 02:57 Bedside Glucose 160mg/dL (70-220) 163mg/dL (70-220) 169mg/dL (70-220) 146mg/dL (70-220) Test 01/27/17 04:02 01/27/17 05:04 01/27/17 06:02 01/27/17 07:07 Bedside Glucose 137mg/dL (70-220) 141mg/dL (70-220) 171mg/dL (70-220) 143mg/dL (70-220) Test 01/27/17 08:05 01/27/17 09:02 01/27/17 10:23 01/27/17 11:23 Bedside Glucose 135mg/dL (70-220) 150mg/dL (70-220) 148mg/dL (70-220) 171mg/dL (70-220) Test 01/27/17 12:09 01/27/17 13:14 01/27/17 13:58 01/27/17 15:20 Bedside Glucose 144mg/dL (70-220) 143mg/dL (70-220) 137mg/dL (70-220) 142mg/dL (70-220) Test 01/27/17 16:05 01/27/17 17:16 01/27/17 18:10 01/27/17 19:08 Bedside Glucose 152mg/dL (70-220) 148mg/dL (70-220) 151mg/dL (70-220) 129mg/dL (70-220) Test 01/27/17 20:43 Bedside Glucose 133mg/dL (70-220) Results Result Diagram: 01/27/17 0400 01/27/17 0400 Results 24 hrs Laboratory Tests Test 01/26/17 21:01 01/26/17 22:04 01/26/17 23:00 01/26/17 23:59 Bedside Glucose 221 H 195 198 160 Test 01/27/17 01:01 01/27/17 01:59 01/27/17 02:57 01/27/17 04:00 Bedside Glucose 163 169 146 White Blood Count 10.5 Red Blood Count 3.85 L Hemoglobin 11.6 L Hematocrit 35.0 L Mean Corpuscular Volume 90.9 Mean Corpuscular Hemoglobin 30.1 Mean Corpuscular Hemoglobin Concent 33.1 Red Cell Distribution Width 19.4 H Platelet Count 189 Mean Platelet Volume 10.2 Neutrophils % 82.4 H Segmented Neutrophils % (Manual) 83 H Band Neutrophils % (Manual) 1 Lymphocytes % 5.5 L Lymphocytes % (Manual) 5 L Monocytes % 10.2 Monocytes % (Manual) 9 Eosinophils % 1.1 Eosinophils % (Manual) 2 Basophils % 0.5 Nucleated Red Blood Cells % 0.0 Neutrophils # (Manual) 8.7 H Band Neutrophils # 0.1 Absolute Lymphocytes (Manual) 0.5 L Lymphocytes # 0.6 L Monocytes # 1.1 H Absolute Monocytes (Manual) 0.9 Eosinophils # 0.1 Basophils # 0.1 Nucleated Red Blood Cells # 0.0 Thrombocytosis 1 H Platelet Estimate NORMAL Polychromasia 1+ Anisocytosis 2+ Microcytosis 2+ Prothrombin Time 14.6 H Prothrombin Time Ratio 1.1 INR International Normalized Ratio 1.14 Activated Partial Thromboplast Time 30.8 Sodium Level 144 Potassium Level 4.1 Chloride Level 109 Carbon Dioxide Level 29 Anion Gap 10 Blood Urea Nitrogen 10 Creatinine 0.49 Glucose Level 141 # Calcium Level 9.2 Magnesium Level 2.1 Test 01/27/17 04:02 01/27/17 05:00 01/27/17 05:03 01/27/17 05:04 Bedside Glucose 137 141 Blood Gas Specimen Source Blood arterial Arterial Blood Date Drawn 01/27/2017 5:05:18 AM Arterial Blood pH (Temp corrected) 7.402 Arterial Blood pCO2 (Temp correct) 42.6 Arterial Blood pO2 (Temp corrected) 129.7 H Arterial Blood HCO3 25.9 Arterial Blood Base Excess 1.0 Arterial Blood Oxygen Saturation 98.3 H Miguel Test N/A Arterial Blood Gas Puncture Site A-Line Arterial Blood Carboxyhemoglobin 0.1 Arterial Blood Methemoglobin 0.3 Blood Gas A-a O2 Differential 106.5 H Oxyhemoglobin Percent 97.9 Total Hemoglobin 12.6 Blood Gas Temperature 37.0 Blood Gas Modality VENT - CPAP FiO2 40.0 Blood Gas Low PEEP Setting 5.0 Blood Gas Pressure Support 8 Blood Gas Notified Whom BR Blood Gas Notified Time 01/27/2017 5:10:50 AM Lab Scanned Report BLOOD TRANSFUSION Test 01/27/17 06:02 01/27/17 06:20 01/27/17 07:07 01/27/17 08:05 Bedside Glucose 171 143 135 Blood Gas Specimen Source Blood arterial Arterial Blood Date Drawn 01/27/2017 6:20:01 AM Arterial Blood pH (Temp corrected) 7.382 Arterial Blood pCO2 (Temp correct) 42.0 Arterial Blood pO2 (Temp corrected) 114.7 H Arterial Blood HCO3 24.4 Arterial Blood Base Excess -0.7 Arterial Blood Oxygen Saturation 97.9 Miguel Test N/A Arterial Blood Gas Puncture Site A-Line Arterial Blood Carboxyhemoglobin 0.1 Arterial Blood Methemoglobin 0.3 Blood Gas A-a O2 Differential 122.2 H Oxyhemoglobin Percent 97.5 Total Hemoglobin 12.7 Blood Gas Temperature 37.0 Blood Gas Modality CPAP FiO2 40.0 Blood Gas Low PEEP Setting 5.0 Blood Gas Pressure Support 5 Blood Gas Notified Whom [facility] Blood Gas Notified Time 01/27/2017 6:26:52 AM Test 01/27/17 09:02 01/27/17 10:23 01/27/17 11:23 01/27/17 12:09 Bedside Glucose 150 148 171 144 Test 01/27/17 13:14 01/27/17 13:58 01/27/17 15:20 01/27/17 16:05 Bedside Glucose 143 137 142 152 Test 01/27/17 17:16 01/27/17 18:10 01/27/17 19:08 Bedside Glucose 148 151 129 Medications Medications Current Medications Acetaminophen (Tylenol Tab) 650 mg Q6H PRN PO PAIN LEVEL 1-3 OR FEVER; Start at 11:30 Acetaminophen (Tylenol Supp) 650 mg Q6H PRN [place] PAIN LEVEL 1-3 OR FEVER; Start 01/06/17 at 11:30 Aspirin (Halfprin) 81 mg DAILY PO Last administered on 01/25/17 08:32; Admin Dose 81 MG; Start 01/07/17 at 09:00 Duloxetine HCl (Cymbalta) 20 mg DAILY PO Last administered on 01/25/17 08:31; Admin Dose 20 MG; Start 01/07/17 at 09:00 Gabapentin (Neurontin) 300 mg TID PO Last administered on 01/25/17 21:22; Admin Dose 300 MG; Start 01/06/17 at 13:00 Metoprolol Tartrate (Lopressor) 12.5 mg BID PO ; Start 01/06/17 at 21:00; Status Future Hold Ticagrelor (Brilinta) 90 mg BID PO Last administered on 01/16/17 08:21; Admin Dose 90 MG; Start 01/06/17 at 21:00; Status Future Hold Furosemide (Lasix) 20 mg DAILY PO ; Start 01/07/17 at 09:00; Status Future Hold Bisacodyl (Dulcolax Supp) 10 mg DAILY PRN [place] CONSTIPATION; Start 01/06/17 at 11 :30 Guaifenesin (Robitussin Liquid Cup) 100 mg Q6H PRN PO COUGH Last administered on 01/08/17 07:54; Admin Dose 100 MG; Start 01/06/17 at 11:30 Levothyroxine Sodium (Synthroid) 112 mcg DAILY@06 PO Last administered on 05:25; Admin Dose 112 MCG; Start 01/07/17 at 06:00 Lisinopril (Zestril) 2.5 mg DAILY PO Last administered on 01/18/17 08:18; Admin Dose 2.5 MG; Start 01/07/17 at 09:00 Senna (Senokot) 2 tab HS PO Last administered on 01/25/17 21:22; Admin Dose 2 TAB; Start 01/06/17 at 21:00 Atorvastatin Calcium (Lipitor) 40 mg HS PO Last administered on 01/25/17 21:22 ; Admin Dose 40 MG; Start 01/14/17 at 21:00 Lidocaine (Xylocaine 4% (Mpf)) 5 ml ONCE PRN HHN BREATHING TREATMENT Last administered on 01/15/17 09:38; Admin Dose 5 ML; Start 01/15/17 at 09:30 Alendronate Sodium (Fosamax) 70 mg We@0630 PO Last administered on 01/21/17 07: 00; Admin Dose 70 MG; Start 01/21/17 at 06:30 Polyethylene Glycol (Miralax) 17 gm DAILY PRN PO constipation; Start 01/20/17 at 18:30 Insulin Glargine (Lantus) 13 unit DAILY@08 SC Last administered on 01/25/17 08 :25; Admin Dose 13 UNIT; Start 01/22/17 at 08:00; Status Future hold Insulin Human NPH (Humulin N) 6 unit DAILY@20 SC Last administered on 20:07; Admin Dose 6 UNIT; Start 01/23/17 at 20:00; Status Future hold Morphine Sulfate (morphine) 1 mg Q2 PRN IV PAIN LEVEL 1-5; Start 01/26/17 at 14 :00 Morphine Sulfate (morphine) 2 mg Q2 PRN IV PAIN LEVEL 6-10 Last administered on 01/27/17 10:15; Admin Dose 2 MG; Start 01/26/17 at 14:00 Ondansetron HCl 4 mg 4 mg Q6H PRN IV NAUSEA AND/OR VOMITING; Start 01/26/17 at 14:00 Magnesium Sulfate/ Dextrose (Magnesium Sulfate 1 Gm/D5W) 100 ml @ 100 mls/hr PRN PRN IVPB PENDING LAB VALUE; Start 01/26/17 at 14:00 Dextrose (D50w Syringe) 25 ml Q15M PRN IV Till BS 80 mg/dL or above x2; Start 01/26/17 at 20:30 Dextrose 50 ml 50 ml Q15M PRN IV Till BS 80 mg/dL or above x2; Start 01/26/17 at 20:30 Potassium Chloride/Lactated Ringer's (KCl/Lr) 1,020 ml @ 75 mls/hr [id number] IV ; Start 01/27/17 at 20:00 DARYL MYERS MD Jan 27, 2017 21:07
[2017-01-28] VITALS (22 sets, daily range): BP systolic 85–131; BP diastolic 43–73; PULSE 94–108; RESP 22–30
[2017-01-28] MEDS: morphine 2 MG INJ IV PRN ×3 (00:56→22:29)
[2017-01-28] MEDS: ALBUTEROL/IPRATROPIUM (NEB) 3 ML AMP HHN SCH ×4 (01:25→19:07)
[2017-01-28 01:54] LABS: CALCIUM 9.5 mg/dl (8.4-10.2); CREATININE 0.36 mg/dl (0.44-1.00); MAGNESIUM 1.7 mg/dl (1.7-2.5); PHOSPHORUS 2.7 mg/dl (2.5-4.9); POTASSIUM 4.2 mmol/L (3.5-5.1)
[2017-01-28] MEDS: MAGNESIUM SULFATE 1 GM/D5W 100 ML IVPB PRN ×2 (02:25→03:58)
[2017-01-28] MEDS: POTASSIUM CHLORIDE 50 ML IVPB PRN (05:45)
[2017-01-28] MEDS: LEVOTHYROXINE 112 MCG TAB PO SCH (06:00)
[2017-01-28] MEDS: ALENDRONATE 70 MG TAB PO SCH (06:30)
--- NOTE | 2017-01-28 08:01 | RADRPT ---
PROCEDURE: XR Chest. CLINICAL INDICATION: Post CABG follow-up TECHNIQUE: AP Portable chest. COMPARISON: 01/27/2017 FINDINGS: Interval removal of the endotracheal tube, and [place]-Philip[place] catheter. Right IJ sheath, chest tubes and mediastinal drains remain in place. Sternotomy wires and mediastinal clips are visualized. The laura g volumes are low with compressive changes. Unchanged small right pleural effusion and basilar atel ectasis. Increased left basilar pleural parenchymal opacity. No pneumothorax is seen. The cardiome diastinal silhouette is enlarged. The osseous structures are intact. IMPRESSION: Interval removal of the endotracheal tube and [place] catheter. Chest tubes and mediastinal drains remain in place. Increase left basilar pleural parenchymal opacity. Unchanged small right pleural effusion and basilar atelectasis. Physician Татьяна Date Time Electronically viewed and signed by Deisi Gibson Physician on 01/28/2017 08:00 BERNIE/
[2017-01-28] MEDS: ASPIRIN (EC) 81 MG TAB PO SCH (08:34)
[2017-01-28] MEDS: GABAPENTIN 300 MG CAP PO SCH ×3 (08:34→20:28)
[2017-01-28] MEDS: DULOXETINE 20 MG CAP DR PO SCH (08:34)
[2017-01-28] MEDS: LISINOPRIL 5 MG TAB PO SCH (08:34)
[2017-01-28] MEDS: INSULIN GLARGINE [LANtus] 3 ML PEN SC SCH (08:43)
--- NOTE | 2017-01-28 09:06 | PN ---
Date/Time of Note Date/Time of Note DATE: 01/28/17 TIME: 08:58 Assessment/Plan VTE Prophylaxis VTE Prophylaxis Intervention: SCD's Lines/Catheters IV Catheter Type (from Nrsg): Central Line Central line still needed: Yes Urinary Cath still in place: Yes Reason Cath still needed: urinary retention Assessment/Plan Chief Complaint/Hosp Course Assessment/Plan: 56 yo F with poorly controlled DM2 admitted for NSTEMI in setting DKA. Found to have multivessel CAD, s/p CABG POD # 2. Also with incidental finding of L sided subglottic lesion, likely 2/2 prolonged intubation and not in need of additional w/u per ENT 1. multivessel CAD, recent NSTEMI, ICM with EF IMPROVED from <25% to 40%. S/p CABG POD # 2 -Follow-up postop recommendations from CTS team. Monitor drainage from CT, PT per CTS rec's -cont current cardiac meds-->bb/lasix on hold for prior episodes of orthostasis earlier this admission 2. L subglottic lesion:ENT states 2/2 prolonged intubation and does not require further w/u-monitor for now 3. Severe obstructive and restrictive pulmonary disease-improved overall -Continue bronchodilators, follow-up pulmonary recommendations 4. DM-1 (likely) with wide BG fluctuations earlier this admission, improved when patient was on insulin drip. Now off insulin drip. -Continue subcutaneous insulin, follow-up Endo consult recommendations for aid with insulin management 5. Hypothyroidism. -Continue Synthroid. 6. Chronic anemia. cpm DVT prophylaxis: SCD's Critical care time spent today = 40 min. Problems: Subjective 24 Hr Interval Summary Free Text/Dictation Patient sitting in chair. Off of IV drips presently. No acute events overnight. Exam/Review of Systems Vital Signs Vitals Vital Signs Date Time Temp Pulse Resp B/P Pulse Ox O2 Delivery O2 Flow Rate FiO2 01/28/17 08:00 104 01/28/17 07:48 28 90 Nasal Cannula 6.0 01/28/17 04:00 99.5 131/51 01/27/17 19:46 35 Intake and Output 01/27/17 01/27/17 01/28/17 15:00 23:00 07:00 Intake Total 553.0 ml 594.5 ml 475 ml Output Total 594 ml 437 ml 585 ml Balance -41.0 ml 157.5 ml -110 ml Exam Alert, sitting in chair, no acute distress Pupils equal round reactive to light, extraocular muscles intact no mrg lungs clear, CT in place abd soft no LE edema B/L No focal deficits Results Result Diagram: 01/27/17 0400 01/28/17 0055 Results 24 hrs Laboratory Tests Test 01/27/17 09:02 01/27/17 10:23 01/27/17 11:23 01/27/17 12:09 Bedside Glucose 150 148 171 144 Test 01/27/17 13:14 01/27/17 13:58 01/27/17 15:20 01/27/17 16:05 Bedside Glucose 143 137 142 152 Test 01/27/17 17:16 01/27/17 18:10 01/27/17 19:08 01/27/17 20:43 Bedside Glucose 148 151 129 133 Test 01/27/17 21:08 01/28/17 00:55 01/28/17 01:08 01/28/17 08:29 Bedside Glucose 140 162 261 H Sodium Level 139 Potassium Level 4.2 Chloride Level 99 # Carbon Dioxide Level 31 Anion Gap 13 Blood Urea Nitrogen 8 Creatinine 0.36 L Glucose Level 167 Calcium Level 9.5 Phosphorus Level 2.7 Magnesium Level 1.7 Medications Medications Current Medications Acetaminophen (Tylenol Tab) 650 mg Q6H PRN PO PAIN LEVEL 1-3 OR FEVER; Start at 11:30 Acetaminophen (Tylenol Supp) 650 mg Q6H PRN [place] PAIN LEVEL 1-3 OR FEVER; Start 01/06/17 at 11:30 Aspirin (Halfprin) 81 mg DAILY PO Last administered on 01/28/17 08:34; Admin Dose 81 MG; Start 01/07/17 at 09:00 Duloxetine HCl (Cymbalta) 20 mg DAILY PO Last administered on 01/28/17 08:34; Admin Dose 20 MG; Start 01/07/17 at 09:00 Gabapentin (Neurontin) 300 mg TID PO Last administered on 01/28/17 08:34; Admin Dose 300 MG; Start 01/06/17 at 13:00 Metoprolol Tartrate (Lopressor) 12.5 mg BID PO ; Start 01/06/17 at 21:00; Status Future Hold Ticagrelor (Brilinta) 90 mg BID PO Last administered on 01/16/17 08:21; Admin Dose 90 MG; Start 01/06/17 at 21:00; Status Future Hold Furosemide (Lasix) 20 mg DAILY PO ; Start 01/07/17 at 09:00; Status Future Hold Bisacodyl (Dulcolax Supp) 10 mg DAILY PRN [place] CONSTIPATION; Start 01/06/17 at 11 :30 Guaifenesin (Robitussin Liquid Cup) 100 mg Q6H PRN PO COUGH Last administered on 01/08/17 07:54; Admin Dose 100 MG; Start 01/06/17 at 11:30 Levothyroxine Sodium (Synthroid) 112 mcg DAILY@06 PO Last administered on 05:25; Admin Dose 112 MCG; Start 01/07/17 at 06:00 Lisinopril (Zestril) 2.5 mg DAILY PO Last administered on 01/28/17 08:34; Admin Dose 2.5 MG; Start 01/07/17 at 09:00 Senna (Senokot) 2 tab HS PO Last administered on 01/25/17 21:22; Admin Dose 2 TAB; Start 01/06/17 at 21:00 Atorvastatin Calcium (Lipitor) 40 mg HS PO Last administered on 01/25/17 21:22 ; Admin Dose 40 MG; Start 01/14/17 at 21:00 Lidocaine (Xylocaine 4% (Mpf)) 5 ml ONCE PRN HHN BREATHING TREATMENT Last administered on 01/15/17 09:38; Admin Dose 5 ML; Start 01/15/17 at 09:30 Alendronate Sodium (Fosamax) 70 mg We@0630 PO Last administered on 01/21/17 07: 00; Admin Dose 70 MG; Start 01/21/17 at 06:30 Polyethylene Glycol (Miralax) 17 gm DAILY PRN PO constipation; Start 01/20/17 at 18:30 Insulin Glargine (Lantus) 13 unit DAILY@08 SC Last administered on 01/28/17 08 :43; Admin Dose 13 UNIT; Start 01/22/17 at 08:00; Status Future hold Insulin Human NPH (Humulin N) 6 unit DAILY@20 SC Last administered on 20:00; Admin Dose 6 UNIT; Start 01/23/17 at 20:00; Status Future hold Morphine Sulfate (morphine) 1 mg Q2 PRN IV PAIN LEVEL 1-5; Start 01/26/17 at 14 :00 Morphine Sulfate (morphine) 2 mg Q2 PRN IV PAIN LEVEL 6-10 Last administered on 01/28/17 08:26; Admin Dose 2 MG; Start 01/26/17 at 14:00 Ondansetron HCl 4 mg 4 mg Q6H PRN IV NAUSEA AND/OR VOMITING; Start 01/26/17 at 14:00 Magnesium Sulfate/ Dextrose (Magnesium Sulfate 1 Gm/D5W) 100 ml @ 100 mls/hr PRN PRN IVPB PENDING LAB VALUE Last administered on 01/28/17 03:58; Admin Dose 100 MLS/HR; Start 01/26/17 at 14:00 Dextrose (D50w Syringe) 25 ml Q15M PRN IV Till BS 80 mg/dL or above x2; Start 01/26/17 at 20:30 Dextrose 50 ml 50 ml Q15M PRN IV Till BS 80 mg/dL or above x2; Start 01/26/17 at 20:30 Potassium Chloride/Lactated Ringer's (KCl/Lr) 1,020 ml @ 75 mls/hr [id number] IV Last administered on 01/27/17 20:54; Admin Dose 75 MLS/HR; Start 01/27/17 at 20 :00 TANIYA OLMSTEAD Jan 28, 2017 09:06
[2017-01-28] MEDS: POTASSIUM CHLORIDE 40 MEQ in LACTATED RINGER'S 1,000 ML IV SCH ×2 (09:36→23:12)
[2017-01-28 10:10] LABS: BASOPHIL # 0.1 10^3/ul (0.0-0.1); BASOPHILS % 0.4 % (0.0-2.0); EOSINOPHILS # 0.2 10^3/ul (0.0-0.5); EOSINOPHILS % 1.3 % (0.0-7.0); HEMATOCRIT 37.3 % (37.0-47.0); LYMPHOCYTES # 0.6 10^3/ul (0.8-2.9); LYMPHOCYTES % 4.6 % (15.0-51.0); MEAN CORPUSCULAR HEMOGLOBIN 30.2 pg (29.0-33.0); MEAN CORPUSCULAR HGB CONC 32.2 g/dl (32.0-37.0); MEAN CORPUSCULAR VOLUME 93.7 fl (82.0-101.0); MEAN PLATELET VOLUME 10.5 fl (7.4-10.4); MONOCYTE # 1.3 10^3/ul (0.3-0.9); MONOCYTES % 10.1 % (0.0-11.0); NEUTROPHILS % 83.1 % (39.0-77.0); PLATELET COUNT 199 10^3/UL (140-415); RED BLOOD COUNT 3.98 10^6/ul (4.20-5.40); RED CELL DISTRIBUTION WIDTH 17.8 % (11.5-14.5); WHITE BLOOD COUNT 13.1 10^3/ul (4.8-10.8)
[2017-01-28 10:37] LABS: CALCIUM 9.1 mg/dl (8.4-10.2); CREATININE 0.36 mg/dl (0.44-1.00); PHOSPHORUS 2.8 mg/dl (2.5-4.9); POTASSIUM 5.1 mmol/L (3.5-5.1)
--- NOTE | 2017-01-28 10:48 | CONS ---
Date/Time of Note Date/Time of Note DATE: 01/28/17 TIME: 10:47 Consult Date/Type/Reason Admit Date/Time Jan 06, 2017 at 10:49 Type of Consultation: Pulmonary Ordering Provider: TANIYA OLMSTEAD Subjective Sitting up in chair looks comfortable at rest no acute events. Chest tubes in place with moderate drainage. Objective Vital Signs Date Time Temp Pulse Resp B/P Pulse Ox O2 Delivery O2 Flow Rate FiO2 01/28/17 09:00 104 24 119/55 92 Nasal Cannula 01/28/17 08:00 99.2 01/28/17 07:48 6.0 01/27/17 19:46 35 Intake and Output 01/27/17 01/27/17 01/28/17 14:59 22:59 06:59 Intake Total 553.0 ml 581.0 ml 550 ml Output Total 614 ml 406 ml 554 ml Balance -61.0 ml 175.0 ml -4 ml Exam PHYSICAL EXAMINATION GENERAL: Elderly lady on nasal cannula oxygen VITAL SIGNS: see below. HEENT: Pupils equal, round, and reactive to light. CARDIAC: S1, S2, 1/6 systolic ejection murmur CHEST: Diminished air entry bilaterally. ABDOMEN: Soft nontender no guarding rebound EXTREMITIES: No cyanosis, clubbing edema +1 NEUROLOGIC: No focal deficits Results/Medications Result Diagram: 01/28/17 0912 01/28/17 0912 Results 24 hrs Laboratory Tests Test 01/27/17 11:23 01/27/17 12:09 01/27/17 13:14 01/27/17 13:58 Bedside Glucose 171 144 143 137 Test 01/27/17 15:20 01/27/17 16:05 01/27/17 17:16 01/27/17 18:10 Bedside Glucose 142 152 148 151 Test 01/27/17 19:08 01/27/17 20:43 01/27/17 21:08 01/28/17 00:55 Bedside Glucose 129 133 140 Sodium Level 139 Potassium Level 4.2 Chloride Level 99 # Carbon Dioxide Level 31 Anion Gap 13 Blood Urea Nitrogen 8 Creatinine 0.36 L Glucose Level 167 Calcium Level 9.5 Phosphorus Level 2.7 Magnesium Level 1.7 Test 01/28/17 01:08 01/28/17 08:29 01/28/17 09:12 Bedside Glucose 162 261 H White Blood Count 13.1 #H Red Blood Count 3.98 L Hemoglobin 12.0 Hematocrit 37.3 Mean Corpuscular Volume 93.7 Mean Corpuscular Hemoglobin 30.2 Mean Corpuscular Hemoglobin Concent 32.2 Red Cell Distribution Width 17.8 H Platelet Count 199 Mean Platelet Volume 10.5 H Neutrophils % 83.1 H Lymphocytes % 4.6 L Monocytes % 10.1 Eosinophils % 1.3 Basophils % 0.4 Nucleated Red Blood Cells % 0.0 Neutrophils # (Manual) 10.9 H Lymphocytes # 0.6 L Monocytes # 1.3 H Eosinophils # 0.2 Basophils # 0.1 Nucleated Red Blood Cells # 0.0 Sodium Level 139 Potassium Level 5.1 Chloride Level 97 Carbon Dioxide Level 30 Anion Gap 17 H Blood Urea Nitrogen 8 Creatinine 0.36 L Glucose Level 263 H Calcium Level 9.1 Phosphorus Level 2.8 Magnesium Level 2.0 Medications Current Medications Acetaminophen (Tylenol Tab) 650 mg Q6H PRN PO PAIN LEVEL 1-3 OR FEVER; Start at 11:30 Acetaminophen (Tylenol Supp) 650 mg Q6H PRN SC PAIN LEVEL 1-3 OR FEVER; Start 01/06/17 at 11:30 Aspirin (Halfprin) 81 mg DAILY PO Last administered on 01/28/17 08:34; Admin Dose 81 MG; Start 01/07/17 at 09:00 Duloxetine HCl (Cymbalta) 20 mg DAILY PO Last administered on 01/28/17 08:34; Admin Dose 20 MG; Start 01/07/17 at 09:00 Gabapentin (Neurontin) 300 mg TID PO Last administered on 01/28/17 08:34; Admin Dose 300 MG; Start 01/06/17 at 13:00 Metoprolol Tartrate (Lopressor) 12.5 mg BID PO ; Start 01/06/17 at 21:00; Status Future Hold Ticagrelor (Brilinta) 90 mg BID PO Last administered on 01/16/17 08:21; Admin Dose 90 MG; Start 01/06/17 at 21:00; Status Future Hold Furosemide (Lasix) 20 mg DAILY PO ; Start 01/07/17 at 09:00; Status Future Hold Bisacodyl (Dulcolax Supp) 10 mg DAILY PRN SC CONSTIPATION; Start 01/06/17 at 11 :30 Guaifenesin (Robitussin Liquid Cup) 100 mg Q6H PRN PO COUGH Last administered on 01/08/17 07:54; Admin Dose 100 MG; Start 01/06/17 at 11:30 Levothyroxine Sodium (Synthroid) 112 mcg DAILY@06 PO Last administered on 05:25; Admin Dose 112 MCG; Start 01/07/17 at 06:00 Lisinopril (Zestril) 2.5 mg DAILY PO Last administered on 01/28/17 08:34; Admin Dose 2.5 MG; Start 01/07/17 at 09:00 Senna (Senokot) 2 tab HS PO Last administered on 01/25/17 21:22; Admin Dose 2 TAB; Start 01/06/17 at 21:00 Atorvastatin Calcium (Lipitor) 40 mg HS PO Last administered on 01/25/17 21:22 ; Admin Dose 40 MG; Start 01/14/17 at 21:00 Lidocaine (Xylocaine 4% (Mpf)) 5 ml ONCE PRN HHN BREATHING TREATMENT Last administered on 01/15/17 09:38; Admin Dose 5 ML; Start 01/15/17 at 09:30 Alendronate Sodium (Fosamax) 70 mg We@0630 PO Last administered on 01/21/17 07: 00; Admin Dose 70 MG; Start 01/21/17 at 06:30 Polyethylene Glycol (Miralax) 17 gm DAILY PRN PO constipation; Start 01/20/17 at 18:30 Insulin Glargine (Lantus) 13 unit DAILY@08 SC Last administered on 01/28/17 08 :43; Admin Dose 13 UNIT; Start 01/22/17 at 08:00; Status Future hold Insulin Human NPH (Humulin N) 6 unit DAILY@20 SC Last administered on 20:00; Admin Dose 6 UNIT; Start 01/23/17 at 20:00; Status Future hold Morphine Sulfate (morphine) 1 mg Q2 PRN IV PAIN LEVEL 1-5; Start 01/26/17 at 14 :00 Morphine Sulfate (morphine) 2 mg Q2 PRN IV PAIN LEVEL 6-10 Last administered on 01/28/17 08:26; Admin Dose 2 MG; Start 01/26/17 at 14:00 Ondansetron HCl 4 mg 4 mg Q6H PRN IV NAUSEA AND/OR VOMITING; Start 01/26/17 at 14:00 Magnesium Sulfate/ Dextrose (Magnesium Sulfate 1 Gm/D5W) 100 ml @ 100 mls/hr PRN PRN IVPB PENDING LAB VALUE Last administered on 01/28/17 03:58; Admin Dose 100 MLS/HR; Start 01/26/17 at 14:00 Dextrose (D50w Syringe) 25 ml Q15M PRN IV Till BS 80 mg/dL or above x2; Start 01/26/17 at 20:30 Dextrose 50 ml 50 ml Q15M PRN IV Till BS 80 mg/dL or above x2; Start 01/26/17 at 20:30 Potassium Chloride/Lactated Ringer's (KCl/Lr) 1,020 ml @ 75 mls/hr [id number] IV Last administered on 01/27/17 20:54; Admin Dose 75 MLS/HR; Start 01/27/17 at 20 :00 Assessment/Plan Chief Complaint/Hosp Course assessment 1. Severe obstructive and restrictive lung disease on recent pulmonary function testing. Patient remains stable nasal cannula following coronary artery bypass graft surgery. 2. Recent non-ST elevation CO. Stable following coronary artery bypass graft surgery. 3. Significant deconditioning. Plan 1. Continue cardiac recommendations 2. Continue bronchodilators [id number]. Continue incentive spirometry. 3. Chest tube management per thoracic surgery 4. Encourage out of bed. Consider removal of Mccray cath soon. Problems: STEFANI GONZALES MD, [facility] Jan 28, 2017 10:48
[2017-01-28] MEDS: INSULIN ASPART [NOVOLOG] 3 ML PEN SC SCH ×4 (11:30→20:31)
--- NOTE | 2017-01-28 14:09 | CONS ---
Date/Time of Note Date/Time of Note DATE: 01/28/17 TIME: 14:07 Assessment/Plan Assessment/Plan Additional Assessment/Plan 1. CAD with Triple vessel disease - post Op now/ DEE/SVG - tolerated procedure well - con't to wean. POD # 2 - better overall - EXTUBATED, ambulated in am - MUCH BETTER 2. Carotid artery disease - no CP now, in good fluid status - con't to adjust Rx. 3. Neck Mass - no Rx needed - ENT r/o malignancy. 4Hypertension - well Rx, con't med rx - well rx - IN GOOD RANGE NOW 5. Diabetes - On ISS. might need gtt - endo team follows 6 CHF - chronic, good fluid staus now.- WILL KEEP EUVOLEMIC 7. Resp failure - ABG on range, extub today Consultation Date/Type/Reason Admit Date/Time Jan 06, 2017 at 10:49 Type of Consultation: Pulmonary Referring Provider: TANIYA OLMSTEAD 24 HR Interval Summary Free Text/Dictation NO acute events - much better overall - no CP now - con't post-op care ROS: No fever, no chills, no nausea, no vomiting, no diarrhea/constipation No recent weight changes No chest pain, no PND, no orthopnea - BETTER No dizziness, blurred vision No thirst, no heat or cold intolerance Exam/Review of Systems Vital Signs Vitals Vital Signs Date Time Temp Pulse Resp B/P Pulse Ox O2 Delivery O2 Flow Rate FiO2 01/28/17 13:00 96 24 110/55 100 Nasal Cannula 01/28/17 08:00 2.0 01/28/17 08:00 99.2 01/27/17 19:46 35 Intake and Output 01/27/17 01/27/17 01/28/17 15:00 23:00 07:00 Intake Total 553.0 ml 594.5 ml 475 ml Output Total 594 ml 437 ml 585 ml Balance -41.0 ml 157.5 ml -110 ml Exam General: WN/WD/NAD, AOx 3 HEENT: Unicetric/atraumatic/EOMI (follow commands) NECK: JVD elevated, no thyromegaly Lymph: no lymphadenopathy HEART: regular with no S3, II/ systolic murmur at apex LUNGS: Coarse sounds, CT in ABD: soft, NT, ND, +BS : Intact Neuro: non focal SKIN: chronic changes EXT: trace edema Results Result Diagram: 01/28/17 0912 01/28/17 0912 Results 24 hrs Laboratory Tests Test 01/27/17 15:20 01/27/17 16:05 01/27/17 17:16 01/27/17 18:10 Bedside Glucose 142 152 148 151 Test 01/27/17 19:08 01/27/17 20:43 01/27/17 21:08 01/28/17 00:55 Bedside Glucose 129 133 140 Sodium Level 139 Potassium Level 4.2 Chloride Level 99 # Carbon Dioxide Level 31 Anion Gap 13 Blood Urea Nitrogen 8 Creatinine 0.36 L Glucose Level 167 Calcium Level 9.5 Phosphorus Level 2.7 Magnesium Level 1.7 Test 01/28/17 01:08 01/28/17 08:29 01/28/17 09:12 01/28/17 11:36 Bedside Glucose 162 261 H 269 H White Blood Count 13.1 #H Red Blood Count 3.98 L Hemoglobin 12.0 Hematocrit 37.3 Mean Corpuscular Volume 93.7 Mean Corpuscular Hemoglobin 30.2 Mean Corpuscular Hemoglobin Concent 32.2 Red Cell Distribution Width 17.8 H Platelet Count 199 Mean Platelet Volume 10.5 H Neutrophils % 83.1 H Lymphocytes % 4.6 L Monocytes % 10.1 Eosinophils % 1.3 Basophils % 0.4 Nucleated Red Blood Cells % 0.0 Neutrophils # (Manual) 10.9 H Lymphocytes # 0.6 L Monocytes # 1.3 H Eosinophils # 0.2 Basophils # 0.1 Nucleated Red Blood Cells # 0.0 Sodium Level 139 Potassium Level 5.1 Chloride Level 97 Carbon Dioxide Level 30 Anion Gap 17 H Blood Urea Nitrogen 8 Creatinine 0.36 L Glucose Level 263 H Calcium Level 9.1 Phosphorus Level 2.8 Magnesium Level 2.0 Medications Medications Current Medications Acetaminophen (Tylenol Tab) 650 mg Q6H PRN PO PAIN LEVEL 1-3 OR FEVER; Start at 11:30 Acetaminophen (Tylenol Supp) 650 mg Q6H PRN NE PAIN LEVEL 1-3 OR FEVER; Start 01/06/17 at 11:30 Aspirin (Halfprin) 81 mg DAILY PO Last administered on 01/28/17t 08:34; Admin Dose 81 MG; Start 01/07/17 at 09:00 Duloxetine HCl (Cymbalta) 20 mg DAILY PO Last administered on 01/28/17 08:34; Admin Dose 20 MG; Start 01/07/17 at 09:00 Gabapentin (Neurontin) 300 mg TID PO Last administered on 01/28/17 08:34; Admin Dose 300 MG; Start 01/06/17 at 13:00 Metoprolol Tartrate (Lopressor) 12.5 mg BID PO ; Start 01/06/17 at 21:00; Status Future Hold Ticagrelor (Brilinta) 90 mg BID PO Last administered on 01/16/17 08:21; Admin Dose 90 MG; Start 01/06/17 at 21:00; Status Future Hold Furosemide (Lasix) 20 mg DAILY PO ; Start 01/07/17 at 09:00; Status Future Hold Bisacodyl (Dulcolax Supp) 10 mg DAILY PRN NE CONSTIPATION; Start 01/06/17 at 11 :30 Guaifenesin (Robitussin Liquid Cup) 100 mg Q6H PRN PO COUGH Last administered on 01/08/17 07:54; Admin Dose 100 MG; Start 01/06/17 at 11:30 Levothyroxine Sodium (Synthroid) 112 mcg DAILY@06 PO Last administered on 05:25; Admin Dose 112 MCG; Start 01/07/17 at 06:00 Lisinopril (Zestril) 2.5 mg DAILY PO Last administered on 01/28/17 08:34; Admin Dose 2.5 MG; Start 01/07/17 at 09:00 Senna (Senokot) 2 tab HS PO Last administered on 01/25/17 21:22; Admin Dose 2 TAB; Start 01/06/17 at 21:00 Atorvastatin Calcium (Lipitor) 40 mg HS PO Last administered on 01/25/17 21:22 ; Admin Dose 40 MG; Start 01/14/17 at 21:00 Lidocaine (Xylocaine 4% (Mpf)) 5 ml ONCE PRN HHN BREATHING TREATMENT Last administered on 01/15/17 09:38; Admin Dose 5 ML; Start 01/15/17 at 09:30 Alendronate Sodium (Fosamax) 70 mg We@0630 PO Last administered on 01/21/17 07: 00; Admin Dose 70 MG; Start 01/21/17 at 06:30 Polyethylene Glycol (Miralax) 17 gm DAILY PRN PO constipation; Start 01/20/17 at 18:30 Insulin Glargine (Lantus) 13 unit DAILY@08 SC Last administered on 01/28/17 08 :43; Admin Dose 13 UNIT; Start 01/22/17 at 08:00; Status Future hold Insulin Human NPH (Humulin N) 6 unit DAILY@20 SC Last administered on 20:00; Admin Dose 6 UNIT; Start 01/23/17 at 20:00; Status Future hold Morphine Sulfate (morphine) 1 mg Q2 PRN IV PAIN LEVEL 1-5; Start 01/26/17 at 14 :00 Morphine Sulfate (morphine) 2 mg Q2 PRN IV PAIN LEVEL 6-10 Last administered on 01/28/17 08:26; Admin Dose 2 MG; Start 01/26/17 at 14:00 Ondansetron HCl 4 mg 4 mg Q6H PRN IV NAUSEA AND/OR VOMITING; Start 01/26/17 at 14:00 Magnesium Sulfate/ Dextrose (Magnesium Sulfate 1 Gm/D5W) 100 ml @ 100 mls/hr PRN PRN IVPB PENDING LAB VALUE Last administered on 01/28/17 03:58; Admin Dose 100 MLS/HR; Start 01/26/17 at 14:00 Dextrose (D50w Syringe) 25 ml Q15M PRN IV Till BS 80 mg/dL or above x2; Start 01/26/17 at 20:30 Dextrose 50 ml 50 ml Q15M PRN IV Till BS 80 mg/dL or above x2; Start 01/26/17 at 20:30 Potassium Chloride/Lactated Ringer's (KCl/Lr) 1,020 ml @ 75 mls/hr [id number] IV Last administered on 01/28/17 09:36; Admin Dose 75 MLS/HR; Start 01/27/17 at 20 :00 ARTIE MARADIAGA MD Jan 28, 2017 14:09
--- NOTE | 2017-01-28 18:12 | PN ---
Date/Time of Note Date/Time of Note DATE: 01/28/17 TIME: 18:11 Assessment/Plan Lines/Catheters IV Catheter Type (from Nrsg): Central Line Mccray in Place (from Nrsg): Yes Assessment/Plan Chief Complaint/Hosp Course Patient with coronary artery disease Status post myocardial infarction Right carotid occlusion COPD Status post coronary artery bypass grafting DEE to LAD Saphenous vein graft to the obtuse marginal branch of the circumflex Patient was extubated this morning Hemodynamically stable CT 275 cc Up to the chair and pulmonary toilet Discussed with the referring physicians Problems: Subjective 24 Hr Interval Summary Constitutional: improved Pain Control: mild Exam/Review of Systems Vital Signs Vitals Vital Signs Date Time Temp Pulse Resp B/P Pulse Ox O2 Delivery O2 Flow Rate FiO2 01/28/17 16:00 98 01/28/17 15:32 6.0 01/28/17 15:26 24 94 Nasal Cannula 01/28/17 15:00 102/54 01/28/17 08:00 99.2 01/27/17 19:46 35 Intake and Output 01/27/17 01/27/17 01/28/17 15:00 23:00 07:00 Intake Total 553.0 ml 594.5 ml 550 ml Output Total 594 ml 437 ml 585 ml Balance -41.0 ml 157.5 ml -35 ml Exam Neck: non-tender, supple Respiratory: clear to auscultation, normal air movement Cardiovascular: nl pulses, regular rate and rhythm Gastrointestinal: nl liver, spleen, non-tender, soft Results Result Diagram: 01/28/17 0912 01/28/17 0912 CHELA ALVARENGA MD Jan 28, 2017 18:12
[2017-01-28] MEDS: SENNA TAB PO SCH (20:28)
[2017-01-28] MEDS: ATORVASTATIN 40 MG TAB PO SCH (20:28)
[2017-01-28] MEDS: NPH, HUMAN INSULIN ISOPHANE 3ML VIAL SC SCH (20:30)
--- NOTE | 2017-01-28 20:40 | CONS ---
Date/Time of Note Date/Time of Note DATE: 01/28/17 TIME: 20:30 Assessment/Plan Assessment/Plan Problems: (1) Type 1 diabetes mellitus with diabetic polyneuropathy Status: Chronic Comment: Despite resuming lantus and NPH at hs, glucose levels anabel overnight and were > 250 mg/dL this am. Pt. also did not get her ISS this am so glucose remained high until midday. When she did receive correctional dosage, glucose corrected appropriately. Will increase NPH from 6 to 9 units qhs to improve FBG. Resume scheduled mealtime Novolog when pt. able to resume diet. Consultation Date/Type/Reason Admit Date/Time Jan 06, 2017 at 10:49 Initial Consult Date 01/14/17 Type of Consultation: Endocrinology Reason for Consultation [id number] Referring Provider: TANIYA OLMSTEAD 24 HR Interval Summary Constitutional: improved, no complaints Detailed Summary ENT: dysphagia Respiratory: no complaints Cardiovascular: chest pain Gastrointestinal: no complaints Genitourinary: no complaints Musculoskeletal: no complaints Neurologic: no complaints Exam/Review of Systems Vital Signs Vitals VS - Last 72 Hours, by Label Date Time Temp Pulse Resp B/P Pulse Ox O2 Delivery O2 Flow Rate FiO2 01/28/17 20:00 99.1 102 25 103/49 100 Nasal Cannula 01/28/17 19:42 Nasal Cannula 2.0 01/28/17 19:08 98 19 99 Nasal Cannula 3.0 01/28/17 19:08 3.0 01/28/17 19:00 100 24 85/73 98 Nasal Cannula 01/28/17 18:00 99 23 92/53 98 Nasal Cannula 01/28/17 17:00 99 22 108/55 100 Nasal Cannula 01/28/17 16:00 99.0 100 22 104/53 98 Nasal Cannula 01/28/17 16:00 98 01/28/17 15:32 6.0 01/28/17 15:26 96 24 94 Nasal Cannula 6.0 01/28/17 15:00 97 27 102/54 98 Nasal Cannula 01/28/17 14:00 94 26 108/55 100 Nasal Cannula 01/28/17 13:00 96 24 110/55 100 Nasal Cannula 01/28/17 12:00 98 01/28/17 12:00 99 26 107/64 100 Nasal Cannula 01/28/17 11:00 101 28 110/52 94 Nasal Cannula 01/28/17 10:00 100 26 111/52 94 Nasal Cannula 01/28/17 09:00 104 24 119/55 92 Nasal Cannula 01/28/17 08:00 Nasal Cannula 2.0 01/28/17 08:00 99.2 104 29 115/49 90 Nasal Cannula 01/28/17 08:00 104 01/28/17 07:48 101 28 90 Nasal Cannula 6.0 01/28/17 07:00 102 24 124/52 99 Nasal Cannula 01/28/17 04:00 99.5 103 26 131/51 99 Nasal Cannula 01/28/17 04:00 103 01/28/17 03:00 104 26 124/51 99 Nasal Cannula 01/28/17 02:00 108 29 123/58 100 Nasal Cannula 01/28/17 01:25 102 22 99 Nasal Cannula 3.0 01/28/17 01:25 3.0 01/28/17 01:00 102 25 118/54 100 Nasal Cannula 01/28/17 00:00 99.7 101 27 128/50 100 Nasal Cannula 01/28/17 00:00 103 01/27/17 23:56 138 01/27/17 23:00 102 27 135/49 100 Nasal Cannula 01/27/17 22:00 3.0 01/27/17 22:00 103 26 135/50 100 Nasal Cannula 01/27/17 21:00 105 27 129/48 93 Nasal Cannula 3.0 01/27/17 20:00 103 01/27/17 20:00 99.5 103 27 132/50 99 Nasal Cannula 9.0 01/27/17 19:46 99 23 100 Venti Mask 9.0 35 01/27/17 19:00 97 23 126/50 99 Venturi Mask 01/27/17 18:00 99.4 97 26 128/67 99 Venturi Mask 9.0 01/27/17 17:00 97 24 124/55 100 Venturi Mask 9.0 01/27/17 16:43 15.0 50 01/27/17 16:00 97 26 131/49 100 01/27/17 16:00 97 01/27/17 16:00 99.2 97 26 131/49 100 Mask 10.0 01/27/17 15:45 100 27 130/48 100 Mask 15.0 8/15/17 15:30 101 26 130/46 99 15/17 15:30 101 26 130/46 99 Mask 15.0 01/27/17 15:15 101 23 124/49 98 Mask 15.0 01/27/17 15:00 105 24 131/52 100 Room Air 01/27/17 15:00 105 24 131/52 100 01/27/17 14:30 102 25 128/47 98 01/27/17 14:00 107 26 135/57 98 17 13:30 99 23 139/51 84 15/17 13:29 104 27 99 Venti Mask 15.0 50 01/27/17 13:00 100 25 134/53 96 15/17 12:30 101 23 130/49 97 17 12:00 101 25 137/51 96 01/27/17 12:00 105 01/27/17 11:30 105 28 140/51 96 01/27/17 11:00 103 27 126/55 97 01/27/17 10:30 102 29 128/49 97 01/27/17 10:00 100.1 103 28 135/53 97 01/27/17 09:41 98 26 97 Nasal Cannula 6.0 01/27/17 09:30 Nasal Cannula 5.0 01/27/17 09:30 101 23 136/51 91 01/27/17 09:25 6.0 01/27/17 09:00 102 28 134/62 98 01/27/17 08:00 99.9 98 25 132/57 98 01/27/17 08:00 40 01/27/17 08:00 97 01/27/17 07:30 96 26 127/48 98 01/27/17 07:15 100 25 98 40 01/27/17 07:00 98 26 131/49 98 15/17 06:30 100 27 139/53 98 17 06:00 97 25 132/52 98 01/27/17 05:48 106 25 98 40 15/17 05:30 98 23 123/43 98 15/17 05:17 99 25 98 40 15/17 05:00 40 1517 05:00 99 24 127/55 98 17 04:34 98 23 98 40 01/27/17 04:30 100 33 135/52 98 8/15/17 04:00 100.5 97 25 128/54 98 8/15/17 04:00 96 8/15/17 04:00 40 8/15/17 03:38 106 8/15/17 03:37 99 24 99 40 8/15/17 03:30 96 23 115/46 97 8/15/17 03:00 96 23 119/46 98 8/15/17 02:30 98 24 121/47 98 8/15/17 02:00 96 25 121/52 98 8/15/17 01:55 95 23 99 40 8/15/17 01:30 94 22 116/43 99 8/15/17 01:00 96 26 109/48 88 8/15/17 00:30 99 24 113/43 99 8/15/17 00:00 99 8/15/17 00:00 100.9 99 24 120/57 99 8/14/17 23:44 101 24 99 40 8/14/17 23:30 40 8/14/17 23:30 97 23 103/41 98 8/14/17 23:00 98 23 106/54 99 8/14/17 22:45 99 26 98 40 8/14/17 22:30 98 24 105/45 98 8/14/17 22:15 97 23 106/42 98 8/14/17 22:00 98 23 114/52 98 8/14/17 21:45 98 21 109/44 98 8/14/17 21:37 99 22 98 40 8/14/17 21:30 98 19 107/44 98 8/14/17 21:15 98 20 105/43 98 8/14/17 21:00 99 26 108/43 98 8/14/17 20:58 99 23 98 40 8/14/17 20:53 101 28 98 40 8/14/17 20:45 101 29 111/49 99 8/14/17 20:30 102 27 124/50 98 8/14/17 20:25 101 27 98 40 8/14/17 20:15 100 24 117/48 98 8/14/17 20:00 40 8/14/17 20:00 100.2 98 22 120/51 98 8/14/17 20:00 97 8/14/17 20:00 99 22 98 40 8/14/17 19:45 98 19 122/51 98 8/14/17 19:30 99 18 131/57 98 8/14/17 19:15 98 19 119/52 99 8/14/17 19:12 98 19 98 40 8/14/17 19:00 97 16 107/48 98 8/14/17 18:45 97 16 109/49 98 8/14/17 18:30 97 16 109/49 98 8/14/17 18:15 97 16 110/49 99 8/14/17 18:00 96 16 110/50 98 8/14/17 17:45 95 18 98/45 98 8/14/17 17:30 95 17 106/49 99 8/14/17 17:15 95 16 105/48 99 8/14/17 17:00 99.4 96 19 113/54 99 8/14/17 16:55 96 18 99 40 8/14/17 16:45 96 15 103/47 99 8/14/17 16:30 100 21 113/54 100 8/14/17 16:15 94 14 101/48 99 8/14/17 16:00 97 8/14/17 16:00 99.3 97 15 92/45 99 8/14/17 15:45 98 14 102/46 99 8/14/17 15:30 96 15 100/44 99 8/14/17 15:15 97 14 93/38 98 8/14/17 15:00 40 8/14/17 15:00 99 14 91/50 100 8/14/17 14:50 99 14 100 70 8/14/17 14:45 99.3 102 18 110/44 100 8/14/17 14:30 98 14 104/39 100 8/14/17 14:15 100 14 114/40 100 8/14/17 14:15 50 8/14/17 14:00 102 14 86/49 100 8/14/17 13:45 105 14 100 8/14/17 13:30 104 14 110/42 100 8/14/17 13:15 105 14 115/42 100 8/14/17 13:15 105 14 100 70 8/14/17 13:00 107 14 128/44 100 8/14/17 12:45 98.3 114 14 149/51 100 8/14/17 12:32 109 8/14/17 12:30 70 8/14/17 12:25 114 14 100 70 01/26/17 02:57 98.4 78 18 107/51 97 Vital Signs Date Time Temp Pulse Resp B/P Pulse Ox O2 Delivery O2 Flow Rate FiO2 01/28/17 20:00 99.1 102 25 103/49 100 Nasal Cannula 01/28/17 19:42 2.0 01/27/17 19:46 35 Intake and Output 01/27/17 01/27/17 01/28/17 15:00 23:00 07:00 Intake Total 553.0 ml 594.5 ml 550 ml Output Total 594 ml 437 ml 585 ml Balance -41.0 ml 157.5 ml -35 ml Exam Constitutional: alert, frail, oriented Psych: nl mood/affect, no complaints Respiratory: clear to auscultation, normal air movement Cardiovascular: nl pulses, regular rate and rhythm, No edema, No murmurs/extra sounds, No rub Gastrointestinal: bowel sounds, nl liver, spleen, non-tender, soft, No mass, No rebound or guarding Musculoskeletal: nl extremities to inspection Extremities: normal pulses, No clubbing, No cyanosis, No edema 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: [employer] II-XII intact, nl mental status, nl speech, No nl strength (appears generally weak and tremulous) Additional Comments Bedside Glucose - 72 Hours Test 01/25/17 21:25 01/25/17 22:09 01/25/17 22:28 01/25/17 23:04 Bedside Glucose 57mg/dL (70-220) L 72mg/dL (70-220) 58mg/dL (70-220) L 129mg/dL (70-220) Test 01/25/17 23:17 01/26/17 02:17 01/26/17 02:51 01/26/17 06:46 Bedside Glucose 114mg/dL (70-220) 81mg/dL (70-220) 159mg/dL (70-220) 144mg/dL (70-220) Test 01/26/17 07:19 01/26/17 12:25 01/26/17 13:51 01/26/17 14:19 Bedside Glucose 160mg/dL (70-220) 136mg/dL (70-220) 64mg/dL (70-220) L 128mg/dL (70-220) Test 01/26/17 14:33 01/26/17 16:16 01/26/17 16:41 01/26/17 17:10 Bedside Glucose 92mg/dL (70-220) 68mg/dL (70-220) L 89mg/dL (70-220) 121mg/dL (70-220) Test 01/26/17 18:17 01/26/17 19:57 01/26/17 20:19 01/26/17 21:01 Bedside Glucose 142mg/dL (70-220) 230mg/dL (70-220) H 240mg/dL (70-220) H 221mg/dL (70-220) H Test 01/26/17 22:04 01/26/17 23:00 01/26/17 23:59 01/27/17 01:01 Bedside Glucose 195mg/dL (70-220) 198mg/dL (70-220) 160mg/dL (70-220) 163mg/dL (70-220) Test 01/27/17 01:59 01/27/17 02:57 01/27/17 04:02 01/27/17 05:04 Bedside Glucose 169mg/dL (70-220) 146mg/dL (70-220) 137mg/dL (70-220) 141mg/dL (70-220) Test 01/27/17 06:02 01/27/17 07:07 01/27/17 08:05 01/27/17 09:02 Bedside Glucose 171mg/dL (70-220) 143mg/dL (70-220) 135mg/dL (70-220) 150mg/dL (70-220) Test 01/27/17 10:23 01/27/17 11:23 01/27/17 12:09 01/27/17 13:14 Bedside Glucose 148mg/dL (70-220) 171mg/dL (70-220) 144mg/dL (70-220) 143mg/dL (70-220) Test 01/27/17 13:58 01/27/17 15:20 01/27/17 16:05 01/27/17 17:16 Bedside Glucose 137mg/dL (70-220) 142mg/dL (70-220) 152mg/dL (70-220) 148mg/dL (70-220) Test 01/27/17 18:10 01/27/17 19:08 01/27/17 20:43 01/27/17 21:08 Bedside Glucose 151mg/dL (70-220) 129mg/dL (70-220) 133mg/dL (70-220) 140mg/dL (70-220) Test 01/28/17 01:08 01/28/17 08:29 01/28/17 11:36 01/28/17 17:16 Bedside Glucose 162mg/dL (70-220) 261mg/dL (70-220) H 269mg/dL (70-220) H 158mg/dL (70-220) Test 01/28/17 20:16 Bedside Glucose 204mg/dL (70-220) Results Result Diagram: 01/28/1712 01/28/1712 Results 24 hrs Laboratory Tests Test 01/27/17 20:43 01/27/17 21:08 01/28/17 00:55 01/28/17 01:08 Bedside Glucose 133 140 162 Sodium Level 139 Potassium Level 4.2 Chloride Level 99 # Carbon Dioxide Level 31 Anion Gap 13 Blood Urea Nitrogen 8 Creatinine 0.36 L Glucose Level 167 Calcium Level 9.5 Phosphorus Level 2.7 Magnesium Level 1.7 Test 01/28/17 08:29 01/28/17 09:12 01/28/17 11:36 01/28/17 17:16 Bedside Glucose 261 H 269 H 158 White Blood Count 13.1 #H Red Blood Count 3.98 L Hemoglobin 12.0 Hematocrit 37.3 Mean Corpuscular Volume 93.7 Mean Corpuscular Hemoglobin 30.2 Mean Corpuscular Hemoglobin Concent 32.2 Red Cell Distribution Width 17.8 H Platelet Count 199 Mean Platelet Volume 10.5 H Neutrophils % 83.1 H Lymphocytes % 4.6 L Monocytes % 10.1 Eosinophils % 1.3 Basophils % 0.4 Nucleated Red Blood Cells % 0.0 Neutrophils # (Manual) 10.9 H Lymphocytes # 0.6 L Monocytes # 1.3 H Eosinophils # 0.2 Basophils # 0.1 Nucleated Red Blood Cells # 0.0 Sodium Level 139 Potassium Level 5.1 Chloride Level 97 Carbon Dioxide Level 30 Anion Gap 17 H Blood Urea Nitrogen 8 Creatinine 0.36 L Glucose Level 263 H Calcium Level 9.1 Phosphorus Level 2.8 Magnesium Level 2.0 Test 01/28/17 20:16 Bedside Glucose 204 Medications Medications Current Medications Acetaminophen (Tylenol Tab) 650 mg Q6H PRN PO PAIN LEVEL 1-3 OR FEVER; Start at 11:30 Acetaminophen (Tylenol Supp) 650 mg Q6H PRN [place] PAIN LEVEL 1-3 OR FEVER; Start 01/06/17 at 11:30 Aspirin (Halfprin) 81 mg DAILY PO Last administered on 01/28/17 08:34; Admin Dose 81 MG; Start 01/07/17 at 09:00 Duloxetine HCl (Cymbalta) 20 mg DAILY PO Last administered on 01/28/17 08:34; Admin Dose 20 MG; Start 01/07/17 at 09:00 Gabapentin (Neurontin) 300 mg TID PO Last administered on 01/28/17 13:00; Admin Dose 300 MG; Start 01/06/17 at 13:00 Metoprolol Tartrate (Lopressor) 12.5 mg BID PO ; Start 01/06/17 at 21:00; Status Future Hold Ticagrelor (Brilinta) 90 mg BID PO Last administered on 01/16/17 08:21; Admin Dose 90 MG; Start 01/06/17 at 21:00; Status Future Hold Furosemide (Lasix) 20 mg DAILY PO ; Start 01/07/17 at 09:00; Status Future Hold Bisacodyl (Dulcolax Supp) 10 mg DAILY PRN [place] CONSTIPATION; Start 01/06/17 at 11 :30 Guaifenesin (Robitussin Liquid Cup) 100 mg Q6H PRN PO COUGH Last administered on 01/08/17 07:54; Admin Dose 100 MG; Start 01/06/17 at 11:30 Levothyroxine Sodium (Synthroid) 112 mcg DAILY@06 PO Last administered on 05:25; Admin Dose 112 MCG; Start 01/07/17 at 06:00 Lisinopril (Zestril) 2.5 mg DAILY PO Last administered on 01/28/17 08:34; Admin Dose 2.5 MG; Start 01/07/17 at 09:00 Senna (Senokot) 2 tab HS PO Last administered on 01/25/17 21:22; Admin Dose 2 TAB; Start 01/06/17 at 21:00 Atorvastatin Calcium (Lipitor) 40 mg HS PO Last administered on 01/25/17 21:22 ; Admin Dose 40 MG; Start 01/14/17 at 21:00 Lidocaine (Xylocaine 4% (Mpf)) 5 ml ONCE PRN HHN BREATHING TREATMENT Last administered on 01/15/17 09:38; Admin Dose 5 ML; Start 01/15/17 at 09:30 Alendronate Sodium (Fosamax) 70 mg We@0630 PO Last administered on 01/21/17 07: 00; Admin Dose 70 MG; Start 01/21/17 at 06:30 Polyethylene Glycol (Miralax) 17 gm DAILY PRN PO constipation; Start 01/20/17 at 18:30 Insulin Glargine (Lantus) 13 unit DAILY@08 SC Last administered on 01/28/17 08 :43; Admin Dose 13 UNIT; Start 01/22/17 at 08:00; Status Future hold Morphine Sulfate (morphine) 1 mg Q2 PRN IV PAIN LEVEL 1-5; Start 01/26/17 at 14 :00 Morphine Sulfate (morphine) 2 mg Q2 PRN IV PAIN LEVEL 6-10 Last administered on 01/28/17 08:26; Admin Dose 2 MG; Start 01/26/17 at 14:00 Ondansetron HCl 4 mg 4 mg Q6H PRN IV NAUSEA AND/OR VOMITING; Start 01/26/17 at 14:00 Magnesium Sulfate/ Dextrose (Magnesium Sulfate 1 Gm/D5W) 100 ml @ 100 mls/hr PRN PRN IVPB PENDING LAB VALUE Last administered on 01/28/17 03:58; Admin Dose 100 MLS/HR; Start 01/26/17 at 14:00 Dextrose (D50w Syringe) 25 ml Q15M PRN IV Till BS 80 mg/dL or above x2; Start 01/26/17 at 20:30 Dextrose 50 ml 50 ml Q15M PRN IV Till BS 80 mg/dL or above x2; Start 01/26/17 at 20:30 Potassium Chloride/Lactated Ringer's (KCl/Lr) 1,020 ml @ 75 mls/hr [id number] IV Last administered on 01/28/17 09:36; Admin Dose 75 MLS/HR; Start 01/27/17 at 20 :00 Insulin Human NPH (Humulin N) 9 unit DAILY@20 SC ; Start 01/28/17 at 20:00 DARYL MYERS MD Jan 28, 2017 20:39
[2017-01-29] VITALS (26 sets, daily range): BP systolic 90–109; BP diastolic 44–59; PULSE 93–110; RESP 19–32
[2017-01-29] MEDS: ALBUTEROL/IPRATROPIUM (NEB) 3 ML AMP HHN SCH ×4 (01:10→20:38)
[2017-01-29] MEDS: POTASSIUM CHLORIDE 40 MEQ in LACTATED RINGER'S 1,000 ML IV SCH (04:08)
[2017-01-29 05:14] LABS: BASOPHIL # 0.1 10^3/ul (0.0-0.1); BASOPHILS % 0.6 % (0.0-2.0); EOSINOPHILS # 0.9 10^3/ul (0.0-0.5); EOSINOPHILS % 9.2 % (0.0-7.0); HEMATOCRIT 34.8 % (37.0-47.0); HEMOGLOBIN 10.9 g/dl (12.0-16.0); LYMPHOCYTES % 9.6 % (15.0-51.0); MEAN CORPUSCULAR HGB CONC 31.3 g/dl (32.0-37.0); MEAN CORPUSCULAR VOLUME 95.9 fl (82.0-101.0); MEAN PLATELET VOLUME 10.4 fl (7.4-10.4); MONOCYTE # 1.1 10^3/ul (0.3-0.9); MONOCYTES % 11.4 % (0.0-11.0); NEUTROPHILS % 68.8 % (39.0-77.0); PLATELET COUNT 198 10^3/UL (140-415); RED BLOOD COUNT 3.63 10^6/ul (4.20-5.40); RED CELL DISTRIBUTION WIDTH 17.2 % (11.5-14.5); WHITE BLOOD COUNT 9.9 10^3/ul (4.8-10.8)
[2017-01-29 05:37] LABS: MAGNESIUM 1.8 mg/dl (1.7-2.5); PHOSPHORUS 2.5 mg/dl (2.5-4.9)
[2017-01-29 05:50] LABS: CALCIUM 8.7 mg/dl (8.4-10.2); CREATININE 0.41 mg/dl (0.44-1.00); POTASSIUM 4.2 mmol/L (3.5-5.1)
[2017-01-29] MEDS: LEVOTHYROXINE 112 MCG TAB PO SCH (06:00)
[2017-01-29] MEDS: INSULIN ASPART [NOVOLOG] 3 ML PEN SC SCH ×7 (07:35→20:11)
[2017-01-29] MEDS: INSULIN GLARGINE [LANtus] 3 ML PEN SC SCH (07:59)
[2017-01-29] MEDS: ASPIRIN (EC) 81 MG TAB PO SCH (08:59)
[2017-01-29] MEDS: LISINOPRIL 5 MG TAB PO SCH (09:00)
[2017-01-29] MEDS: GABAPENTIN 300 MG CAP PO SCH ×3 (09:00→20:15)
--- NOTE | 2017-01-29 09:11 | PN ---
Date/Time of Note Date/Time of Note DATE: 01/29/17 TIME: 09:07 Assessment/Plan VTE Prophylaxis VTE Prophylaxis Intervention: SCD's Lines/Catheters IV Catheter Type (from Nrsg): Central Line Central line still needed: Yes Urinary Cath still in place: Yes Reason Cath still needed: urinary retention Assessment/Plan Chief Complaint/Hosp Course Assessment/Plan: 56 yo F with poorly controlled DM2 admitted for NSTEMI in setting DKA. Found to have multivessel CAD, s/p CABG POD # 3. Also with incidental finding of L sided subglottic lesion, likely 2/2 prolonged intubation and not in need of additional w/u per ENT 1. multivessel CAD, recent NSTEMI, ICM with EF IMPROVED from <25% to 40%. S/p CABG POD # 3 -Follow-up postop recommendations from CTS team. Monitor drainage from CT, PT per CTS rec's, for possible chest tube removal today -cont current cardiac meds-->bb/lasix on hold for prior episodes of orthostasis earlier this admission -Continue physical therapy and occupational therapy 2. L subglottic lesion:ENT states 2/2 prolonged intubation and does not require further w/u-monitor for now 3. Severe obstructive and restrictive pulmonary disease-improved overall -Continue bronchodilators, follow-up pulmonary recommendations 4. DM-1 (likely) with wide BG fluctuations earlier this admission, improved when patient was on insulin drip earlier. Now off insulin drip, and on subcutaneous insulin -Continue subcutaneous insulin, follow-up Endo consult recommendations for aid with insulin management 5. Hypothyroidism. -Continue Synthroid. 6. Chronic anemia. cpm DVT prophylaxis: SCD's Critical care time spent today = 45 min. Problems: Subjective 24 Hr Interval Summary Free Text/Dictation No acute events overnight. Seen by CTS team and physical therapy yesterday. States some mild chest pain. Exam/Review of Systems Vital Signs Vitals Vital Signs Date Time Temp Pulse Resp B/P Pulse Ox O2 Delivery O2 Flow Rate FiO2 01/29/17 08:24 101 21 100 Nasal Cannula 3.0 01/29/17 08:00 99.0 106/48 01/27/17 19:46 35 Intake and Output 01/28/17 01/28/17 01/29/17 15:00 23:00 07:00 Intake Total 600 ml 475 ml 600 ml Output Total 320 ml 460 ml 450 ml Balance 280 ml 15 ml 150 ml Exam Alert, lying in bed, no acute distress Pupils equal round reactive to light, extraocular muscles intact no mrg lungs clear, CT in place abd soft no LE edema B/L No focal deficits Results Result Diagram: 01/29/17 0420 01/29/17 0420 Results 24 hrs Laboratory Tests Test 01/28/17 09:12 01/28/17 11:36 01/28/17 17:16 01/28/17 20:16 White Blood Count 13.1 #H Red Blood Count 3.98 L Hemoglobin 12.0 Hematocrit 37.3 Mean Corpuscular Volume 93.7 Mean Corpuscular Hemoglobin 30.2 Mean Corpuscular Hemoglobin Concent 32.2 Red Cell Distribution Width 17.8 H Platelet Count 199 Mean Platelet Volume 10.5 H Neutrophils % 83.1 H Lymphocytes % 4.6 L Monocytes % 10.1 Eosinophils % 1.3 Basophils % 0.4 Nucleated Red Blood Cells % 0.0 Neutrophils # (Manual) 10.9 H Lymphocytes # 0.6 L Monocytes # 1.3 H Eosinophils # 0.2 Basophils # 0.1 Nucleated Red Blood Cells # 0.0 Sodium Level 139 Potassium Level 5.1 Chloride Level 97 Carbon Dioxide Level 30 Anion Gap 17 H Blood Urea Nitrogen 8 Creatinine 0.36 L Glucose Level 263 H Calcium Level 9.1 Phosphorus Level 2.8 Magnesium Level 2.0 Bedside Glucose 269 H 158 204 Test 01/29/17 01:50 01/29/17 04:20 01/29/17 07:54 Bedside Glucose 150 135 White Blood Count 9.9 # Red Blood Count 3.63 L Hemoglobin 10.9 L Hematocrit 34.8 L Mean Corpuscular Volume 95.9 Mean Corpuscular Hemoglobin 30.0 Mean Corpuscular Hemoglobin Concent 31.3 L Red Cell Distribution Width 17.2 H Platelet Count 198 Mean Platelet Volume 10.4 Neutrophils % 68.8 Lymphocytes % 9.6 L Monocytes % 11.4 H Eosinophils % 9.2 H Basophils % 0.6 Nucleated Red Blood Cells % 0.0 Neutrophils # (Manual) 6.8 Lymphocytes # 1.0 Monocytes # 1.1 H Eosinophils # 0.9 H Basophils # 0.1 Nucleated Red Blood Cells # 0.0 Sodium Level 136 Potassium Level 4.2 Chloride Level 100 Carbon Dioxide Level 32 H Anion Gap 8 # Blood Urea Nitrogen 10 Creatinine 0.41 L Glucose Level 148 # Calcium Level 8.7 Phosphorus Level 2.5 Magnesium Level 1.8 Medications Medications Current Medications Acetaminophen (Tylenol Tab) 650 mg Q6H PRN PO PAIN LEVEL 1-3 OR FEVER; Start at 11:30 Acetaminophen (Tylenol Supp) 650 mg Q6H PRN [place] PAIN LEVEL 1-3 OR FEVER; Start 01/06/17 at 11:30 Aspirin (Halfprin) 81 mg DAILY PO Last administered on 01/29/17 08:59; Admin Dose 81 MG; Start 01/07/17 at 09:00 Duloxetine HCl (Cymbalta) 20 mg DAILY PO Last administered on 01/28/17 08:34; Admin Dose 20 MG; Start 01/07/17 at 09:00 Gabapentin (Neurontin) 300 mg TID PO Last administered on 01/29/17 09:00; Admin Dose 300 MG; Start 01/06/17 at 13:00 Metoprolol Tartrate (Lopressor) 12.5 mg BID PO ; Start 01/06/17 at 21:00; Status Future Hold Ticagrelor (Brilinta) 90 mg BID PO Last administered on 01/16/17 08:21; Admin Dose 90 MG; Start 01/06/17 at 21:00; Status Future Hold Furosemide (Lasix) 20 mg DAILY PO ; Start 01/07/17 at 09:00; Status Future Hold Bisacodyl (Dulcolax Supp) 10 mg DAILY PRN [place] CONSTIPATION; Start 01/06/17 at 11 :30 Guaifenesin (Robitussin Liquid Cup) 100 mg Q6H PRN PO COUGH Last administered on 01/08/17 07:54; Admin Dose 100 MG; Start 01/06/17 at 11:30 Levothyroxine Sodium (Synthroid) 112 mcg DAILY@06 PO Last administered on 06:00; Admin Dose 112 MCG; Start 01/07/17 at 06:00 Lisinopril (Zestril) 2.5 mg DAILY PO Last administered on 01/29/17 09:00; Admin Dose 2.5 MG; Start 01/07/17 at 09:00 Senna (Senokot) 2 tab HS PO Last administered on 01/28/17 20:28; Admin Dose 2 TAB; Start 01/06/17 at 21:00 Atorvastatin Calcium (Lipitor) 40 mg HS PO Last administered on 01/28/17 20:28 ; Admin Dose 40 MG; Start 01/14/17 at 21:00 Lidocaine (Xylocaine 4% (Mpf)) 5 ml ONCE PRN HHN BREATHING TREATMENT Last administered on 01/15/17 09:38; Admin Dose 5 ML; Start 01/15/17 at 09:30 Alendronate Sodium (Fosamax) 70 mg We@0630 PO Last administered on 01/21/17 07: 00; Admin Dose 70 MG; Start 01/21/17 at 06:30 Polyethylene Glycol (Miralax) 17 gm DAILY PRN PO constipation; Start 01/20/17 at 18:30 Insulin Glargine (Lantus) 13 unit DAILY@08 SC Last administered on 01/29/17 07 :59; Admin Dose 13 UNIT; Start 01/22/17 at 08:00; Status Future hold Morphine Sulfate (morphine) 1 mg Q2 PRN IV PAIN LEVEL 1-5; Start 01/26/17 at 14 :00 Morphine Sulfate (morphine) 2 mg Q2 PRN IV PAIN LEVEL 6-10 Last administered on 01/28/17 22:29; Admin Dose 2 MG; Start 01/26/17 at 14:00 Ondansetron HCl 4 mg 4 mg Q6H PRN IV NAUSEA AND/OR VOMITING; Start 01/26/17 at 14:00 Magnesium Sulfate/ Dextrose (Magnesium Sulfate 1 Gm/D5W) 100 ml @ 100 mls/hr PRN PRN IVPB PENDING LAB VALUE Last administered on 01/28/17 03:58; Admin Dose 100 MLS/HR; Start 01/26/17 at 14:00 Dextrose (D50w Syringe) 25 ml Q15M PRN IV Till BS 80 mg/dL or above x2; Start 01/26/17 at 20:30 Dextrose 50 ml 50 ml Q15M PRN IV Till BS 80 mg/dL or above x2; Start 01/26/17 at 20:30 Potassium Chloride/Lactated Ringer's (KCl/Lr) 1,020 ml @ 75 mls/hr [id number] IV Last administered on 01/29/17 04:08; Admin Dose 75 MLS/HR; Start 01/27/17 at 20 :00 Insulin Human NPH (Humulin N) 9 unit DAILY@20 SC Last administered on t 20:30; Admin Dose 9 UNIT; Start 01/28/17 at 20:00 TANIYA OLMSTEAD Jan 29, 2017 09:11
[2017-01-29] MEDS: DULOXETINE 20 MG CAP DR PO SCH (09:47)
--- NOTE | 2017-01-29 10:30 | CONS ---
Date/Time of Note Date/Time of Note DATE: 01/29/17 TIME: 10:28 Assessment/Plan Assessment/Plan Additional Assessment/Plan 1. CAD with Triple vessel disease - post Op now/ DEE/SVG - tolerated procedure well - con't to wean. POD # 4 - better overall - EXTUBATED, ambulated in am - MUCH BETTER - con't to improve. 2. Carotid artery disease - no CP now, in good fluid status - con't to adjust Rx. 3. Neck Mass - no Rx needed - ENT r/o malignancy. 4 Hypertension - well Rx, con't med rx - well rx - well Rx. Will follow. 5. Diabetes - On ISS. might need gtt - endo team follows 6 CHF - chronic, good fluid staus now.- WILL KEEP EUVOLEMIC 7. Resp failure - ABG on range, extub today Consultation Date/Type/Reason Admit Date/Time Jan 06, 2017 at 10:49 Type of Consultation: Endocrinology Referring Provider: TANIYA OLMSTEAD 24 HR Interval Summary Free Text/Dictation No acute events - con't to improve. ROS: No fever, no chills, no nausea, no vomiting, no diarrhea/constipation No recent weight changes No chest pain, no PND, no orthopnea No dizziness, blurred vision No thirst, no heat or cold intolerance Exam/Review of Systems Vital Signs Vitals Vital Signs Date Time Temp Pulse Resp B/P Pulse Ox O2 Delivery O2 Flow Rate FiO2 01/29/17 10:20 109 24 106/54 98 Nasal Cannula 2.0 01/29/17 08:00 99.0 01/27/17 19:46 35 Intake and Output 01/28/17 01/28/17 01/29/17 15:00 23:00 07:00 Intake Total 600 ml 475 ml 600 ml Output Total 320 ml 460 ml 450 ml Balance 280 ml 15 ml 150 ml Exam General: WN/WD/NAD, AOx 3 HEENT: Unicetric/atraumatic/EOMI (follows commands) NECK: JVD elevated, no thyromegaly Lymph: no lymphadenopathy HEART: regular with no S3, II/ systolic murmur at apex LUNGS: Coarse sounds, CT ABD: soft, NT, ND, +BS : Intact Neuro: non focal SKIN: chronic changes EXT: trace edema Results Result Diagram: 01/29/17 0420 01/29/17 0420 Results 24 hrs Laboratory Tests Test 01/28/17 11:36 01/28/17 17:16 01/28/17 20:16 01/29/17 01:50 Bedside Glucose 269 H 158 204 150 Test 01/29/17 04:20 01/29/17 07:54 White Blood Count 9.9 # Red Blood Count 3.63 L Hemoglobin 10.9 L Hematocrit 34.8 L Mean Corpuscular Volume 95.9 Mean Corpuscular Hemoglobin 30.0 Mean Corpuscular Hemoglobin Concent 31.3 L Red Cell Distribution Width 17.2 H Platelet Count 198 Mean Platelet Volume 10.4 Neutrophils % 68.8 Lymphocytes % 9.6 L Monocytes % 11.4 H Eosinophils % 9.2 H Basophils % 0.6 Nucleated Red Blood Cells % 0.0 Neutrophils # (Manual) 6.8 Lymphocytes # 1.0 Monocytes # 1.1 H Eosinophils # 0.9 H Basophils # 0.1 Nucleated Red Blood Cells # 0.0 Sodium Level 136 Potassium Level 4.2 Chloride Level 100 Carbon Dioxide Level 32 H Anion Gap 8 # Blood Urea Nitrogen 10 Creatinine 0.41 L Glucose Level 148 # Calcium Level 8.7 Phosphorus Level 2.5 Magnesium Level 1.8 Bedside Glucose 135 Medications Medications Current Medications Acetaminophen (Tylenol Tab) 650 mg Q6H PRN PO PAIN LEVEL 1-3 OR FEVER; Start at 11:30 Acetaminophen (Tylenol Supp) 650 mg Q6H PRN [place] PAIN LEVEL 1-3 OR FEVER; Start 01/06/17 at 11:30 Aspirin (Halfprin) 81 mg DAILY PO Last administered on 01/29/17 08:59; Admin Dose 81 MG; Start 01/07/17 at 09:00 Duloxetine HCl (Cymbalta) 20 mg DAILY PO Last administered on 01/29/17 09:47; Admin Dose 20 MG; Start 01/07/17 at 09:00 Gabapentin (Neurontin) 300 mg TID PO Last administered on 01/29/17 09:00; Admin Dose 300 MG; Start 01/06/17 at 13:00 Metoprolol Tartrate (Lopressor) 12.5 mg BID PO ; Start 01/06/17 at 21:00; Status Future Hold Ticagrelor (Brilinta) 90 mg BID PO Last administered on 01/16/17 08:21; Admin Dose 90 MG; Start 01/06/17 at 21:00; Status Future Hold Furosemide (Lasix) 20 mg DAILY PO ; Start 01/07/17 at 09:00; Status Future Hold Bisacodyl (Dulcolax Supp) 10 mg DAILY PRN [place] CONSTIPATION; Start 01/06/17 at 11 :30 Guaifenesin (Robitussin Liquid Cup) 100 mg Q6H PRN PO COUGH Last administered on 01/08/17 07:54; Admin Dose 100 MG; Start 01/06/17 at 11:30 Levothyroxine Sodium (Synthroid) 112 mcg DAILY@06 PO Last administered on 06:00; Admin Dose 112 MCG; Start 01/07/17 at 06:00 Lisinopril (Zestril) 2.5 mg DAILY PO Last administered on 01/29/17 09:00; Admin Dose 2.5 MG; Start 01/07/17 at 09:00 Senna (Senokot) 2 tab HS PO Last administered on 01/28/17 20:28; Admin Dose 2 TAB; Start 01/06/17 at 21:00 Atorvastatin Calcium (Lipitor) 40 mg HS PO Last administered on 01/28/17 20:28 ; Admin Dose 40 MG; Start 01/14/17 at 21:00 Lidocaine (Xylocaine 4% (Mpf)) 5 ml ONCE PRN HHN BREATHING TREATMENT Last administered on 01/15/17 09:38; Admin Dose 5 ML; Start 01/15/17 at 09:30 Alendronate Sodium (Fosamax) 70 mg We@0630 PO Last administered on 01/21/17 07: 00; Admin Dose 70 MG; Start 01/21/17 at 06:30 Polyethylene Glycol (Miralax) 17 gm DAILY PRN PO constipation; Start 01/20/17 at 18:30 Insulin Glargine (Lantus) 13 unit DAILY@08 SC Last administered on 01/29/17 07 :59; Admin Dose 13 UNIT; Start 01/22/17 at 08:00; Status Future hold Morphine Sulfate (morphine) 1 mg Q2 PRN IV PAIN LEVEL 1-5; Start 01/26/17 at 14 :00 Morphine Sulfate (morphine) 2 mg Q2 PRN IV PAIN LEVEL 6-10 Last administered on 01/28/17 22:29; Admin Dose 2 MG; Start 01/26/17 at 14:00 Ondansetron HCl 4 mg 4 mg Q6H PRN IV NAUSEA AND/OR VOMITING; Start 01/26/17 at 14:00 Magnesium Sulfate/ Dextrose (Magnesium Sulfate 1 Gm/D5W) 100 ml @ 100 mls/hr PRN PRN IVPB PENDING LAB VALUE Last administered on 01/28/17 03:58; Admin Dose 100 MLS/HR; Start 01/26/17 at 14:00 Dextrose (D50w Syringe) 25 ml Q15M PRN IV Till BS 80 mg/dL or above x2; Start 01/26/17 at 20:30 Dextrose 50 ml 50 ml Q15M PRN IV Till BS 80 mg/dL or above x2; Start 01/26/17 at 20:30 Potassium Chloride/Lactated Ringer's (KCl/Lr) 1,020 ml @ 75 mls/hr [id number] IV Last administered on 01/29/17 04:08; Admin Dose 75 MLS/HR; Start 01/27/17 at 20 :00 Insulin Human NPH (Humulin N) 9 unit DAILY@20 SC Last administered on 20:30; Admin Dose 9 UNIT; Start 01/28/17 at 20:00 ARTIE MARADIAGA MD Jan 29, 2017 10:30
--- NOTE | 2017-01-29 10:56 | RADRPT ---
PROCEDURE: XR Chest. CLINICAL INDICATION: Today and daily while CTube in and in am after CTube dc'd. TECHNIQUE: Single frontal view of the chest was obtained. COMPARISON: Chest x-ray from 01/28/2017 FINDINGS: A right internal jugular central venous catheter is unchanged in position. Bilateral chest tubes and mediastinal drains are unchanged in position. Sternotomy wires and clips consistent with CABG are again noted. There is stable cardiomegaly. There is mild pulmonary vascular congestion which has minimally impro cynthia. There are stable small bilateral pleural effusions and retrocardiac opacity due to atelectasis, infi ltrate, and / or effusion. IMPRESSION: Mild pulmonary vascular congestion which has minimally improved. Otherwise, no significant interval change. RPTAT: EE Physician Makeda Date Time Electronically viewed and signed by Chadwick Resendiz Physician on 01/29/2017 08:04 /
--- NOTE | 2017-01-29 11:09 | CONS ---
Date/Time of Note Date/Time of Note DATE: 01/29/17 TIME: 11:08 Consult Date/Type/Reason Admit Date/Time Jan 06, 2017 at 10:49 Type of Consultation: Pulmonary Ordering Provider: TANIYA OLMSTEAD Subjective Patient comfortable in bed this morning no events overnight. Objective Vital Signs Date Time Temp Pulse Resp B/P Pulse Ox O2 Delivery O2 Flow Rate FiO2 01/29/17 10:20 109 24 106/54 98 Nasal Cannula 2.0 01/29/17 08:00 99.0 01/27/17 19:46 35 Intake and Output 01/28/17 01/28/17 01/29/17 15:00 23:00 07:00 Intake Total 600 ml 475 ml 600 ml Output Total 320 ml 460 ml 450 ml Balance 280 ml 15 ml 150 ml Exam GENERAL: Pleasantly comfortable in bed no acute distress VITAL SIGNS: per chart NECK: Supple. No JVD or lymphadenopathy. CARDIAC EXAM: S1, S2. No added sounds or murmurs. CHEST: diminished air entry bilaterally chest tube in place ABDOMEN: Soft, nontender. No guarding or rebound. EXTREMITIES: No cyanosis, clubbing or edema. NEUROLOGIC: Generalized weakness. No focal deficits. Results/Medications Result Diagram: 01/29/17 0420 01/29/17 0420 Results 24 hrs Laboratory Tests Test 01/28/17 11:36 01/28/17 17:16 01/28/17 20:16 01/29/17 01:50 Bedside Glucose 269 H 158 204 150 Test 01/29/17 04:20 01/29/17 07:54 White Blood Count 9.9 # Red Blood Count 3.63 L Hemoglobin 10.9 L Hematocrit 34.8 L Mean Corpuscular Volume 95.9 Mean Corpuscular Hemoglobin 30.0 Mean Corpuscular Hemoglobin Concent 31.3 L Red Cell Distribution Width 17.2 H Platelet Count 198 Mean Platelet Volume 10.4 Neutrophils % 68.8 Lymphocytes % 9.6 L Monocytes % 11.4 H Eosinophils % 9.2 H Basophils % 0.6 Nucleated Red Blood Cells % 0.0 Neutrophils # (Manual) 6.8 Lymphocytes # 1.0 Monocytes # 1.1 H Eosinophils # 0.9 H Basophils # 0.1 Nucleated Red Blood Cells # 0.0 Sodium Level 136 Potassium Level 4.2 Chloride Level 100 Carbon Dioxide Level 32 H Anion Gap 8 # Blood Urea Nitrogen 10 Creatinine 0.41 L Glucose Level 148 # Calcium Level 8.7 Phosphorus Level 2.5 Magnesium Level 1.8 Bedside Glucose 135 Medications Current Medications Acetaminophen (Tylenol Tab) 650 mg Q6H PRN PO PAIN LEVEL 1-3 OR FEVER; Start at 11:30 Acetaminophen (Tylenol Supp) 650 mg Q6H PRN [place] PAIN LEVEL 1-3 OR FEVER; Start 01/06/17 at 11:30 Aspirin (Halfprin) 81 mg DAILY PO Last administered on 01/29/17 08:59; Admin Dose 81 MG; Start 01/07/17 at 09:00 Duloxetine HCl (Cymbalta) 20 mg DAILY PO Last administered on 01/29/17 09:47; Admin Dose 20 MG; Start 01/07/17 at 09:00 Gabapentin (Neurontin) 300 mg TID PO Last administered on 01/29/17 09:00; Admin Dose 300 MG; Start 01/06/17 at 13:00 Metoprolol Tartrate (Lopressor) 12.5 mg BID PO ; Start 01/06/17 at 21:00; Status Future Hold Ticagrelor (Brilinta) 90 mg BID PO Last administered on 01/16/17 08:21; Admin Dose 90 MG; Start 01/06/17 at 21:00; Status Future Hold Furosemide (Lasix) 20 mg DAILY PO ; Start 01/07/17 at 09:00; Status Future Hold Bisacodyl (Dulcolax Supp) 10 mg DAILY PRN [place] CONSTIPATION; Start 01/06/17 at 11 :30 Guaifenesin (Robitussin Liquid Cup) 100 mg Q6H PRN PO COUGH Last administered on 01/08/17 07:54; Admin Dose 100 MG; Start 01/06/17 at 11:30 Levothyroxine Sodium (Synthroid) 112 mcg DAILY@06 PO Last administered on 06:00; Admin Dose 112 MCG; Start 01/07/17 at 06:00 Lisinopril (Zestril) 2.5 mg DAILY PO Last administered on 01/29/17 09:00; Admin Dose 2.5 MG; Start 01/07/17 at 09:00 Senna (Senokot) 2 tab HS PO Last administered on 01/28/17 20:28; Admin Dose 2 TAB; Start 01/06/17 at 21:00 Atorvastatin Calcium (Lipitor) 40 mg HS PO Last administered on 01/28/17 20:28 ; Admin Dose 40 MG; Start 01/14/17 at 21:00 Lidocaine (Xylocaine 4% (Mpf)) 5 ml ONCE PRN HHN BREATHING TREATMENT Last administered on 01/15/17 09:38; Admin Dose 5 ML; Start 01/15/17 at 09:30 Alendronate Sodium (Fosamax) 70 mg We@0630 PO Last administered on 01/21/17 07: 00; Admin Dose 70 MG; Start 01/21/17 at 06:30 Polyethylene Glycol (Miralax) 17 gm DAILY PRN PO constipation; Start 01/20/17 at 18:30 Insulin Glargine (Lantus) 13 unit DAILY@08 SC Last administered on 01/29/17 07 :59; Admin Dose 13 UNIT; Start 01/22/17 at 08:00; Status Future hold Morphine Sulfate (morphine) 1 mg Q2 PRN IV PAIN LEVEL 1-5; Start 01/26/17 at 14 :00 Morphine Sulfate (morphine) 2 mg Q2 PRN IV PAIN LEVEL 6-10 Last administered on 01/28/17 22:29; Admin Dose 2 MG; Start 01/26/17 at 14:00 Ondansetron HCl 4 mg 4 mg Q6H PRN IV NAUSEA AND/OR VOMITING; Start 01/26/17 at 14:00 Magnesium Sulfate/ Dextrose (Magnesium Sulfate 1 Gm/D5W) 100 ml @ 100 mls/hr PRN PRN IVPB PENDING LAB VALUE Last administered on 01/28/17 03:58; Admin Dose 100 MLS/HR; Start 01/26/17 at 14:00 Dextrose (D50w Syringe) 25 ml Q15M PRN IV Till BS 80 mg/dL or above x2; Start 01/26/17 at 20:30 Dextrose 50 ml 50 ml Q15M PRN IV Till BS 80 mg/dL or above x2; Start 01/26/17 at 20:30 Potassium Chloride/Lactated Ringer's (KCl/Lr) 1,020 ml @ 75 mls/hr [id number] IV Last administered on 01/29/17 04:08; Admin Dose 75 MLS/HR; Start 01/27/17 at 20 :00 Insulin Human NPH (Humulin N) 9 unit DAILY@20 SC Last administered on t 20:30; Admin Dose 9 UNIT; Start 01/28/17 at 20:00 Docusate Sodium (Colace) 100 mg BID PO ; Start 01/29/17 at 21:00 Assessment/Plan Chief Complaint/Hosp Course assessment 1. Severe obstructive and restrictive lung disease on recent pulmonary function testing. Patient remains stable nasal cannula following coronary artery bypass graft surgery. 2. Recent non-ST elevation MS. Stable following coronary artery bypass graft surgery. Plan 1. Continue cardiac recommendations 2. Continue bronchodilators [id number]. Continue incentive spirometry. 3. Chest tube management per thoracic surgery hopefully removed soon. 4. Encourage out of bed. Consider removal of Mccray cath soon. 5. Continue physical therapy. Problems: STEFANI GONZALES MD, [facility] Jan 29, 2017 11:09
--- NOTE | 2017-01-29 11:11 | PN ---
Date/Time of Note Date/Time of Note DATE: 01/29/17 TIME: 11:10 Assessment/Plan Lines/Catheters IV Catheter Type (from Nrsg): Central Line Mccray in Place (from Nrsg): Yes Assessment/Plan Chief Complaint/Hosp Course Patient with coronary artery disease Status post myocardial infarction Right carotid occlusion COPD Status post coronary artery bypass grafting DEE to LAD Saphenous vein graft to the obtuse marginal branch of the circumflex Patient was extubated this morning Hemodynamically stable CT 180 cc will DC pacing wires Up to the chair and pulmonary toilet Discussed with the referring physicians Problems: Subjective 24 Hr Interval Summary Constitutional: no complaints Pain Control: mild Exam/Review of Systems Vital Signs Vitals Vital Signs Date Time Temp Pulse Resp B/P Pulse Ox O2 Delivery O2 Flow Rate FiO2 01/29/17 10:20 109 24 106/54 98 Nasal Cannula 2.0 01/29/17 08:00 99.0 01/27/17 19:46 35 Intake and Output 01/28/17 01/28/17 01/29/17 15:00 23:00 07:00 Intake Total 600 ml 475 ml 600 ml Output Total 320 ml 460 ml 450 ml Balance 280 ml 15 ml 150 ml Exam Neck: non-tender, supple Respiratory: clear to auscultation, normal air movement Cardiovascular: nl pulses, regular rate and rhythm Results Result Diagram: 01/29/1741901/29/17419 CHELA ALVARENGA MD Jan 29, 2017 11:11
--- NOTE | 2017-01-29 13:08 | CONS ---
Date/Time of Note Date/Time of Note DATE: 01/29/17 TIME: 13:06 Assessment/Plan Assessment/Plan Problems: (1) Type 1 diabetes mellitus with diabetic polyneuropathy Status: Chronic Comment: New hs NPH dose effective to control FBG. Pt. has improved po intake although still w/ dysphagia. Resumed po insulin. Appears to be effective. Will continue current doses. Consultation Date/Type/Reason Admit Date/Time Jan 06, 2017 at 10:49 Initial Consult Date 01/14/17 Type of Consultation: Endocrinology Reason for Consultation [address] Referring Provider: TANIYA OLMSTEAD 24 HR Interval Summary Constitutional: improved, no complaints Detailed Summary ENT: dysphagia Respiratory: no complaints Cardiovascular: no complaints Gastrointestinal: no complaints Genitourinary: no complaints Musculoskeletal: no complaints Neurologic: no complaints Exam/Review of Systems Vital Signs Vitals VS - Last 72 Hours, by Label Date Time Temp Pulse Resp B/P Pulse Ox O2 Delivery O2 Flow Rate FiO2 01/29/17 12:00 102 01/29/17 11:00 100 27 103/54 100 Nasal Cannula 2.0 01/29/17 10:20 109 24 106/54 98 Nasal Cannula 2.0 01/29/17 09:00 102 23 99/44 100 Nasal Cannula 2.0 01/29/17 08:24 101 21 100 Nasal Cannula 3.0 01/29/17 08:00 96 01/29/17 08:00 99.0 97 28 106/48 100 Nasal Cannula 2.0 01/29/17 08:00 Nasal Cannula 2.0 01/29/17 07:00 97 23 108/47 100 Nasal Cannula 2.0 01/29/17 06:30 98 24 100 01/29/17 06:15 95 23 99 01/29/17 06:00 99 24 96/48 97 Nasal Cannula 01/29/17 05:00 99 27 107/56 100 Nasal Cannula 01/29/17 04:00 95 01/29/17 04:00 96 20 105/52 100 Nasal Cannula 01/29/17 03:00 99.1 95 21 95/50 100 Nasal Cannula 01/29/17 02:00 98 23 107/58 100 Nasal Cannula 01/29/17 01:11 3.0 01/29/17 01:00 93 21 98/52 100 Nasal Cannula 8/17/17 00:00 97 23 102/48 100 Nasal Cannula 01/29/17 00:00 97 01/28/17 23:00 99.2 99 25 98/49 100 Nasal Cannula 01/28/17 22:00 99 26 96/43 100 Nasal Cannula 01/28/17 21:00 101 30 93/45 100 Nasal Cannula 01/28/17 20:00 99.1 102 25 103/49 100 Nasal Cannula 16/17 20:00 102 01/28/17 19:42 Nasal Cannula 2.0 01/28/17 19:08 98 19 99 Nasal Cannula 3.0 01/28/17 19:08 3.0 01/28/17 19:00 100 24 85/73 98 Nasal Cannula 01/28/17 18:00 99 23 92/53 98 Nasal Cannula 01/28/17 17:00 99 22 108/55 100 Nasal Cannula 01/28/17 16:00 99.0 100 22 104/53 98 Nasal Cannula 01/28/17 16:00 98 01/28/17 15:32 6.0 01/28/17 15:26 96 24 94 Nasal Cannula 6.0 01/28/17 15:00 97 27 102/54 98 Nasal Cannula 01/28/17 14:00 94 26 108/55 100 Nasal Cannula 01/28/17 13:00 96 24 110/55 100 Nasal Cannula 01/28/17 12:00 98 01/28/17 12:00 99 26 107/64 100 Nasal Cannula 01/28/17 11:00 101 28 110/52 94 Nasal Cannula 01/28/17 10:00 100 26 111/52 94 Nasal Cannula 01/28/17 09:00 104 24 119/55 92 Nasal Cannula 01/28/17 08:00 Nasal Cannula 2.0 01/28/17 08:00 99.2 104 29 115/49 90 Nasal Cannula 01/28/17 08:00 104 01/28/17 07:48 101 28 90 Nasal Cannula 6.0 01/28/17 07:00 102 24 124/52 99 Nasal Cannula 16/17 04:00 99.5 103 26 131/51 99 Nasal Cannula 16/17 04:00 103 01/28/17 03:00 104 26 124/51 99 Nasal Cannula 01/28/ 02:00 108 29 123/58 100 Nasal Cannula 01/28 01:25 102 22 99 Nasal Cannula 3.0 01/28/17 01:25 3.0 01/28/17 01:00 102 25 118/54 100 Nasal Cannula 01/28/17 00:00 99.7 101 27 128/50 100 Nasal Cannula 01/28/17 00:00 103 01/27/17 23:56 138 01/27/17 23:00 102 27 135/49 100 Nasal Cannula 01/27/17 22:00 3.0 01/27/17 22:00 103 26 135/50 100 Nasal Cannula 01/27/17 21:00 105 27 129/48 93 Nasal Cannula 3.0 01/27/17 20:00 103 01/27/17 20:00 99.5 103 27 132/50 99 Nasal Cannula 9.0 01/27/17 19:46 99 23 100 Venti Mask 9.0 35 01/27/17 19:00 97 23 126/50 99 Venturi Mask 01/27/17 18:00 99.4 97 26 128/67 99 Venturi Mask 9.0 01/27/17 17:00 97 24 124/55 100 Venturi Mask 9.0 01/27/17 16:43 15.0 50 01/27/17 16:00 97 26 131/49 100 01/27/17 16:00 97 01/27/17 16:00 99.2 97 26 131/49 100 Mask 10.0 01/27/17 15:45 100 27 130/48 100 Mask 15.0 01/27/17 15:30 101 26 130/46 99 01/27/17 15:30 101 26 130/46 99 Mask 15.0 01/27/17 15:15 101 23 124/49 98 Mask 15.0 01/27/17 15:00 105 24 131/52 100 Room Air 01/27/17 15:00 105 24 131/52 100 01/27/17 14:30 102 25 128/47 98 01/27/17 14:00 107 26 135/57 98 01/27/17 13:30 99 23 139/51 84 17 13:29 104 27 99 Venti Mask 15.0 50 01/27/17 13:00 100 25 134/53 96 01/27/17 12:30 101 23 130/49 97 01/27/17 12:00 101 25 137/51 96 8/15/17 12:00 105 15/17 11:30 105 28 140/51 96 15/17 11:00 103 27 126/55 97 15/17 10:30 102 29 128/49 97 15/17 10:00 100.1 103 28 135/53 97 15/17 09:41 98 26 97 Nasal Cannula 6.0 01/27/ 09:30 Nasal Cannula 5.0 01/27/17 09:30 101 23 136/51 91 15/17 09:25 6.0 01/27/17 09:00 102 28 134/62 98 15/17 08:00 99.9 98 25 132/57 98 01/27/17 08:00 40 17 08:00 97 01/27/17 07:30 96 26 127/48 98 15/17 07:15 100 25 98 40 01/27/17 07:00 98 26 131/49 98 01/27/17 06:30 100 27 139/53 98 17 06:00 97 25 132/52 98 01/27/ 05:48 106 25 98 40 15/17 05:30 98 23 123/43 98 15/17 05:17 99 25 98 40 01/27/17 05:00 40 01/27/17 05:00 99 24 127/55 98 01/27/17 04:34 98 23 98 40 15/17 04:30 100 33 135/52 98 15/17 04:00 100.5 97 25 128/54 98 1517 04:00 96 17 04:00 40 15/17 03:38 106 15/17 03:37 99 24 99 40 15/17 03:30 96 23 115/46 97 15/17 03:00 96 23 119/46 98 15/17 02:30 98 24 121/47 98 15/17 02:00 96 25 121/52 98 15/17 01:55 95 23 99 40 15/17 01:30 94 22 116/43 99 15/17 01:00 96 26 109/48 88 15/17 00:30 99 24 113/43 99 15/17 00:00 99 15/17 00:00 100.9 99 24 120/57 99 8/14/17 23:44 101 24 99 40 8/14/17 23:30 40 8/14/17 23:30 97 23 103/41 98 8/14/17 23:00 98 23 106/54 99 8/14/17 22:45 99 26 98 40 814/17 22:30 98 24 105/45 98 814/17 22:15 97 23 106/42 98 8/14/17 22:00 98 23 114/52 98 8/14/17 21:45 98 21 109/44 98 814/17 21:37 99 22 98 40 814/17 21:30 98 19 107/44 98 814/17 21:15 98 20 105/43 98 814/17 21:00 99 26 108/43 98 14/17 20:58 99 23 98 40 814/17 20:53 101 28 98 40 14/17 20:45 101 29 111/49 99 14/17 20:30 102 27 124/50 98 814/17 20:25 101 27 98 40 814/17 20:15 100 24 117/48 98 14/17 20:00 40 14/17 20:00 100.2 98 22 120/51 98 14/17 20:00 97 14/17 20:00 99 22 98 40 14/17 19:45 98 19 122/51 98 /14/17 19:30 99 18 131/57 98 14/17 19:15 98 19 119/52 99 14/17 19:12 98 19 98 40 8/14/17 19:00 97 16 107/48 98 8/14/17 18:45 97 16 109/49 98 8/14/17 18:30 97 16 109/49 98 8/14/17 18:15 97 16 110/49 99 8/14/17 18:00 96 16 110/50 98 8/14/17 17:45 95 18 98/45 98 8/14/17 17:30 95 17 106/49 99 8/14/17 17:15 95 16 105/48 99 814/17 17:00 99.4 96 19 113/54 99 8/14/17 16:55 96 18 99 40 01/26/17 16:45 96 15 103/47 99 01/26/17 16:30 100 21 113/54 100 01/26/17 16:15 94 14 101/48 99 01/26/17 16:00 97 01/26/17 16:00 99.3 97 15 92/45 99 01/26/17 15:45 98 14 102/46 99 01/26/17 15:30 96 15 100/44 99 01/26/17 15:15 97 14 93/38 98 01/26/17 15:00 40 01/26/17 15:00 99 14 91/50 100 01/26/17 14:50 99 14 100 70 01/26/17 14:45 99.3 102 18 110/44 100 01/26/17 14:30 98 14 104/39 100 01/26/17 14:15 100 14 114/40 100 01/26/17 14:15 50 01/26/17 14:00 102 14 86/49 100 01/26/17 13:45 105 14 100 01/26/17 13:30 104 14 110/42 100 01/26/17 13:15 105 14 115/42 100 01/26/17 13:15 105 14 100 70 Vital Signs Date Time Temp Pulse Resp B/P Pulse Ox O2 Delivery O2 Flow Rate FiO2 01/29/17 12:00 102 01/29/17 11:00 27 103/54 100 Nasal Cannula 2.0 01/29/17 08:00 99.0 01/27/17 19:46 35 Intake and Output 01/28/17 01/28/17 01/29/17 15:00 23:00 07:00 Intake Total 600 ml 475 ml 600 ml Output Total 320 ml 460 ml 450 ml Balance 280 ml 15 ml 150 ml Exam Constitutional: alert, frail, oriented Psych: nl mood/affect, no complaints Respiratory: clear to auscultation, normal air movement Cardiovascular: nl pulses, regular rate and rhythm, No edema, No murmurs/extra sounds, No rub Gastrointestinal: bowel sounds, nl liver, spleen, non-tender, soft, No mass, No rebound or guarding Musculoskeletal: nl extremities to inspection Extremities: normal pulses, No clubbing, No cyanosis, No edema 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: [employer] II-XII intact, nl mental status, nl speech, No nl strength (appears generally weak and tremulous) Additional Comments Bedside Glucose - 72 Hours Test 01/26/17 13:51 01/26/17 14:19 01/26/17 14:33 01/26/17 16:16 Bedside Glucose 64mg/dL (70-220) L 128mg/dL (70-220) 92mg/dL (70-220) 68mg/dL (70-220) L Test 01/26/17 16:41 01/26/17 17:10 01/26/17 18:17 01/26/17 19:57 Bedside Glucose 89mg/dL (70-220) 121mg/dL (70-220) 142mg/dL (70-220) 230mg/dL (70-220) H Test 01/26/17 20:19 01/26/17 21:01 01/26/17 22:04 01/26/17 23:00 Bedside Glucose 240mg/dL (70-220) H 221mg/dL (70-220) H 195mg/dL (70-220) 198mg/dL (70-220) Test 01/26/17 23:59 01/27/17 01:01 01/27/17 01:59 01/27/17 02:57 Bedside Glucose 160mg/dL (70-220) 163mg/dL (70-220) 169mg/dL (70-220) 146mg/dL (70-220) Test 01/27/17 04:02 01/27/17 05:04 01/27/17 06:02 01/27/17 07:07 Bedside Glucose 137mg/dL (70-220) 141mg/dL (70-220) 171mg/dL (70-220) 143mg/dL (70-220) Test 01/27/17 08:05 01/27/17 09:02 01/27/17 10:23 01/27/17 11:23 Bedside Glucose 135mg/dL (70-220) 150mg/dL (70-220) 148mg/dL (70-220) 171mg/dL (70-220) Test 01/27/17 12:09 01/27/17 13:14 01/27/17 13:58 01/27/17 15:20 Bedside Glucose 144mg/dL (70-220) 143mg/dL (70-220) 137mg/dL (70-220) 142mg/dL (70-220) Test 01/27/17 16:05 01/27/17 17:16 01/27/17 18:10 01/27/17 19:08 Bedside Glucose 152mg/dL (70-220) 148mg/dL (70-220) 151mg/dL (70-220) 129mg/dL (70-220) Test 01/27/17 20:43 01/27/17 21:08 01/28/17 01:08 01/28/17 08:29 Bedside Glucose 133mg/dL (70-220) 140mg/dL (70-220) 162mg/dL (70-220) 261mg/dL (70-220) H Test 01/28/17 11:36 01/28/17 17:16 01/28/17 20:16 01/29/17 01:50 Bedside Glucose 269mg/dL (70-220) H 158mg/dL (70-220) 204mg/dL (70-220) 150mg/dL (70-220) Test 01/29/17 07:54 01/29/17 11:54 Bedside Glucose 135mg/dL (70-220) 184mg/dL (70-220) Results Result Diagram: 01/29/17 0420 01/29/17 0420 Results 24 hrs Laboratory Tests Test 01/28/17 17:16 01/28/17 20:16 01/29/17 01:50 01/29/17 04:20 Bedside Glucose 158 204 150 White Blood Count 9.9 # Red Blood Count 3.63 L Hemoglobin 10.9 L Hematocrit 34.8 L Mean Corpuscular Volume 95.9 Mean Corpuscular Hemoglobin 30.0 Mean Corpuscular Hemoglobin Concent 31.3 L Red Cell Distribution Width 17.2 H Platelet Count 198 Mean Platelet Volume 10.4 Neutrophils % 68.8 Lymphocytes % 9.6 L Monocytes % 11.4 H Eosinophils % 9.2 H Basophils % 0.6 Nucleated Red Blood Cells % 0.0 Neutrophils # (Manual) 6.8 Lymphocytes # 1.0 Monocytes # 1.1 H Eosinophils # 0.9 H Basophils # 0.1 Nucleated Red Blood Cells # 0.0 Sodium Level 136 Potassium Level 4.2 Chloride Level 100 Carbon Dioxide Level 32 H Anion Gap 8 # Blood Urea Nitrogen 10 Creatinine 0.41 L Glucose Level 148 # Calcium Level 8.7 Phosphorus Level 2.5 Magnesium Level 1.8 Test 01/29/17 07:54 01/29/17 11:54 Bedside Glucose 135 184 Medications Medications Current Medications Acetaminophen (Tylenol Tab) 650 mg Q6H PRN PO PAIN LEVEL 1-3 OR FEVER; Start at 11:30 Acetaminophen (Tylenol Supp) 650 mg Q6H PRN [place] PAIN LEVEL 1-3 OR FEVER; Start 01/06/17 at 11:30 Aspirin (Halfprin) 81 mg DAILY PO Last administered on 01/29/17 08:59; Admin Dose 81 MG; Start 01/07/17 at 09:00 Duloxetine HCl (Cymbalta) 20 mg DAILY PO Last administered on 01/29/17 09:47; Admin Dose 20 MG; Start 01/07/17 at 09:00 Gabapentin (Neurontin) 300 mg TID PO Last administered on 01/29/17 09:00; Admin Dose 300 MG; Start 01/06/17 at 13:00 Metoprolol Tartrate (Lopressor) 12.5 mg BID PO ; Start 01/06/17 at 21:00; Status Future Hold Ticagrelor (Brilinta) 90 mg BID PO Last administered on 01/16/17 08:21; Admin Dose 90 MG; Start 01/06/17 at 21:00; Status Future Hold Furosemide (Lasix) 20 mg DAILY PO ; Start 01/07/17 at 09:00; Status Future Hold Bisacodyl (Dulcolax Supp) 10 mg DAILY PRN [place] CONSTIPATION; Start 01/06/17 at 11 :30 Guaifenesin (Robitussin Liquid Cup) 100 mg Q6H PRN PO COUGH Last administered on 01/08/17 07:54; Admin Dose 100 MG; Start 01/06/17 at 11:30 Levothyroxine Sodium (Synthroid) 112 mcg DAILY@06 PO Last administered on 06:00; Admin Dose 112 MCG; Start 01/07/17 at 06:00 Lisinopril (Zestril) 2.5 mg DAILY PO Last administered on 01/29/17 09:00; Admin Dose 2.5 MG; Start 01/07/17 at 09:00 Senna (Senokot) 2 tab HS PO Last administered on 01/28/17 20:28; Admin Dose 2 TAB; Start 01/06/17 at 21:00 Atorvastatin Calcium (Lipitor) 40 mg HS PO Last administered on 01/28/17 20:28 ; Admin Dose 40 MG; Start 01/14/17 at 21:00 Lidocaine (Xylocaine 4% (Mpf)) 5 ml ONCE PRN HHN BREATHING TREATMENT Last administered on 01/15/17 09:38; Admin Dose 5 ML; Start 01/15/17 at 09:30 Alendronate Sodium (Fosamax) 70 mg We@0630 PO Last administered on 01/21/17 07: 00; Admin Dose 70 MG; Start 01/21/17 at 06:30 Polyethylene Glycol (Miralax) 17 gm DAILY PRN PO constipation; Start 01/20/17 at 18:30 Insulin Glargine (Lantus) 13 unit DAILY@08 SC Last administered on 01/29/17 07 :59; Admin Dose 13 UNIT; Start 01/22/17 at 08:00; Status Future hold Morphine Sulfate (morphine) 1 mg Q2 PRN IV PAIN LEVEL 1-5; Start 01/26/17 at 14 :00 Morphine Sulfate (morphine) 2 mg Q2 PRN IV PAIN LEVEL 6-10 Last administered on 01/28/17 22:29; Admin Dose 2 MG; Start 01/26/17 at 14:00 Ondansetron HCl 4 mg 4 mg Q6H PRN IV NAUSEA AND/OR VOMITING; Start 01/26/17 at 14:00 Magnesium Sulfate/ Dextrose (Magnesium Sulfate 1 Gm/D5W) 100 ml @ 100 mls/hr PRN PRN IVPB PENDING LAB VALUE Last administered on 01/28/17 03:58; Admin Dose 100 MLS/HR; Start 01/26/17 at 14:00 Dextrose (D50w Syringe) 25 ml Q15M PRN IV Till BS 80 mg/dL or above x2; Start 01/26/17 at 20:30 Dextrose 50 ml 50 ml Q15M PRN IV Till BS 80 mg/dL or above x2; Start 01/26/17 at 20:30 Potassium Chloride/Lactated Ringer's (KCl/Lr) 1,020 ml @ 75 mls/hr [id number] IV Last administered on 01/29/17 04:08; Admin Dose 75 MLS/HR; Start 01/27/17 at 20 :00 Insulin Human NPH (Humulin N) 9 unit DAILY@20 SC Last administered on 20:30; Admin Dose 9 UNIT; Start 01/28/17 at 20:00 Docusate Sodium (Colace) 100 mg BID PO ; Start 01/29/17 at 21:00 DARYL MYERS MD Jan 29, 2017 13:08
[2017-01-29] MEDS: NPH, HUMAN INSULIN ISOPHANE 3ML VIAL SC SCH (20:14)
[2017-01-29] MEDS: SENNA TAB PO SCH (20:15)
[2017-01-29] MEDS: ATORVASTATIN 40 MG TAB PO SCH (20:15)
[2017-01-29] MEDS: DOCUSATE SODIUM 100 MG CAP PO SCH (20:15)
[2017-01-29] MEDS: morphine 2 MG INJ IV PRN (23:05)
[2017-01-30] VITALS (23 sets, daily range): BP systolic 86–123; BP diastolic 42–64; PULSE 100–114; RESP 15–31
[2017-01-30] MEDS: ALBUTEROL/IPRATROPIUM (NEB) 3 ML AMP HHN SCH ×4 (01:37→20:03)
[2017-01-30] MEDS: POTASSIUM CHLORIDE 40 MEQ in LACTATED RINGER'S 1,000 ML IV SCH ×3 (02:24→21:06)
[2017-01-30] MEDS: LEVOTHYROXINE 112 MCG TAB PO SCH (05:42)
[2017-01-30 06:32] LABS: BASOPHIL # 0.1 10^3/ul (0.0-0.1); BASOPHILS % 0.7 % (0.0-2.0); EOSINOPHILS # 1.1 10^3/ul (0.0-0.5); EOSINOPHILS % 12.9 % (0.0-7.0); HEMOGLOBIN 11.4 g/dl (12.0-16.0); LYMPHOCYTES % 12.5 % (15.0-51.0); MEAN CORPUSCULAR HEMOGLOBIN 29.8 pg (29.0-33.0); MEAN CORPUSCULAR HGB CONC 31.7 g/dl (32.0-37.0); MEAN PLATELET VOLUME 10.1 fl (7.4-10.4); MONOCYTE # 0.9 10^3/ul (0.3-0.9); MONOCYTES % 10.7 % (0.0-11.0); PLATELET COUNT 240 10^3/UL (140-415); RED BLOOD COUNT 3.83 10^6/ul (4.20-5.40); RED CELL DISTRIBUTION WIDTH 16.9 % (11.5-14.5); WHITE BLOOD COUNT 8.3 10^3/ul (4.8-10.8)
--- NOTE | 2017-01-30 06:54 | RADRPT ---
PROCEDURE: XR Chest. CLINICAL INDICATION: Postop CABG followup TECHNIQUE: AP Portable chest. COMPARISON: 01/29/2017 FINDINGS: Right IJ sheath, mediastinal drains and chest tube are remain in place. The cardiomediastinal silhouette is enlarged. Sternotomy wires and mediastinal clips are visualized . The lung volumes are low. No pneumothorax is seen. Bilateral pleural effusions and basilar atele ctasis are unchanged, greater on the left. The osseous structures are intact. IMPRESSION: Unchanged bilateral pleural effusions and basilar atelectasis, greater on the left. Physician Татьяна Date Time Electronically viewed and signed by Physician Татьяна on 01/30/2017 06:54 CS/
[2017-01-30 07:00] LABS: CALCIUM 8.2 mg/dl (8.4-10.2); CREATININE 0.4 mg/dl (0.44-1.00); POTASSIUM 3.7 mmol/L (3.5-5.1)
[2017-01-30] MEDS: INSULIN ASPART [NOVOLOG] 3 ML PEN SC SCH ×7 (07:35→20:54)
[2017-01-30] MEDS: LISINOPRIL 5 MG TAB PO SCH (08:52)
[2017-01-30] MEDS: DOCUSATE SODIUM 100 MG CAP PO SCH ×2 (09:02→20:54)
[2017-01-30] MEDS: ASPIRIN (EC) 81 MG TAB PO SCH (09:02)
[2017-01-30] MEDS: DULOXETINE 20 MG CAP DR PO SCH (09:02)
[2017-01-30] MEDS: GABAPENTIN 300 MG CAP PO SCH ×3 (09:02→20:54)
[2017-01-30] MEDS: INSULIN GLARGINE [LANtus] 3 ML PEN SC SCH (09:04)
--- NOTE | 2017-01-30 09:37 | PN ---
Date/Time of Note Date/Time of Note DATE: 01/30/17 TIME: 09:34 Assessment/Plan VTE Prophylaxis VTE Prophylaxis Intervention: SCD's Lines/Catheters IV Catheter Type (from Nrsg): Saline Lock Urinary Cath still in place: Yes Reason Cath still needed: urinary retention Assessment/Plan Chief Complaint/Hosp Course Assessment/Plan: 56 yo F with poorly controlled DM2 admitted for NSTEMI in setting DKA. Found to have multivessel CAD, s/p CABG POD # 4. Also with incidental finding of L sided subglottic lesion, likely 2/2 prolonged intubation and not in need of additional w/u per ENT 1. multivessel CAD, recent NSTEMI, ICM with EF IMPROVED from <25% to 40%. S/p CABG POD # 4 -Follow-up postop recommendations from CTS team. Monitor drainage from CT, PT per CTS rec's, for possible chest tube removal per CTS rec's -cont current cardiac meds-->bb/lasix on hold for prior episodes of orthostasis earlier this admission -Continue physical therapy and occupational therapy 2. L subglottic lesion:ENT states 2/2 prolonged intubation and does not require further w/u-monitor for now 3. Severe obstructive and restrictive pulmonary disease-improved overall -Continue bronchodilators, follow-up pulmonary recommendations 4. DM-1 (likely) with wide BG fluctuations earlier this admission, improved when patient was on insulin drip earlier. Now off insulin drip, and on subcutaneous insulin Lantus and NPH. -Continue subcutaneous insulin, follow-up Endo consult recommendations for aid with insulin management 5. Hypothyroidism. -Continue Synthroid. 6. Chronic anemia. cpm DVT prophylaxis: SCD's Critical care time spent today = 40 min. Problems: Subjective 24 Hr Interval Summary Free Text/Dictation No acute events overnight, patient presently working with physical therapy team no complaints. Exam/Review of Systems Vital Signs Vitals Vital Signs Date Time Temp Pulse Resp B/P Pulse Ox O2 Delivery O2 Flow Rate FiO2 01/30/17 08:57 2.0 01/30/17 08:57 101 25 98 Nasal Cannula 01/30/17 08:00 99.0 86/59 01/27/17 19:46 35 Intake and Output 01/29/17 01/29/17 01/30/17 15:00 23:00 07:00 Intake Total 600 ml 360 ml 160 ml Output Total 500 ml 388 ml 650 ml Balance 100 ml -28 ml -490 ml Exam Alert, lying in bed, no acute distress Pupils equal round reactive to light, extraocular muscles intact no mrg lungs clear, CT in place abd soft no LE edema B/L No focal deficits Results Result Diagram: 01/30/17 0500 01/30/17 0500 Results 24 hrs Laboratory Tests Test 01/29/17 11:54 01/29/17 17:55 01/29/17 20:11 01/30/17 05:00 Bedside Glucose 184 107 99 White Blood Count 8.3 Red Blood Count 3.83 L Hemoglobin 11.4 L Hematocrit 36.0 L Mean Corpuscular Volume 94.0 Mean Corpuscular Hemoglobin 29.8 Mean Corpuscular Hemoglobin Concent 31.7 L Red Cell Distribution Width 16.9 H Platelet Count 240 # Mean Platelet Volume 10.1 Neutrophils % 63.0 Lymphocytes % 12.5 L Monocytes % 10.7 Eosinophils % 12.9 H Basophils % 0.7 Nucleated Red Blood Cells % 0.0 Neutrophils # (Manual) 5 Lymphocytes # 1.0 Monocytes # 0.9 Eosinophils # 1.1 H Basophils # 0.1 Nucleated Red Blood Cells # 0.0 Sodium Level 138 Potassium Level 3.7 Chloride Level 101 Carbon Dioxide Level 30 Anion Gap 11 Blood Urea Nitrogen 9 Creatinine 0.40 L Glucose Level 97 # Calcium Level 8.2 L Test 01/30/17 07:41 Bedside Glucose 100 Medications Medications Current Medications Acetaminophen (Tylenol Tab) 650 mg Q6H PRN PO PAIN LEVEL 1-3 OR FEVER; Start at 11:30 Acetaminophen (Tylenol Supp) 650 mg Q6H PRN [place] PAIN LEVEL 1-3 OR FEVER; Start 01/06/17 at 11:30 Aspirin (Halfprin) 81 mg DAILY PO Last administered on 01/30/17 09:02; Admin Dose 81 MG; Start 01/07/17 at 09:00 Duloxetine HCl (Cymbalta) 20 mg DAILY PO Last administered on 01/30/17 09:02; Admin Dose 20 MG; Start 01/07/17 at 09:00 Gabapentin (Neurontin) 300 mg TID PO Last administered on 01/30/17 09:02; Admin Dose 300 MG; Start 01/06/17 at 13:00 Metoprolol Tartrate (Lopressor) 12.5 mg BID PO ; Start 01/06/17 at 21:00; Status Future Hold Ticagrelor (Brilinta) 90 mg BID PO Last administered on 01/16/17 08:21; Admin Dose 90 MG; Start 01/06/17 at 21:00; Status Future Hold Furosemide (Lasix) 20 mg DAILY PO ; Start 01/07/17 at 09:00; Status Future Hold Bisacodyl (Dulcolax Supp) 10 mg DAILY PRN [place] CONSTIPATION; Start 01/06/17 at 11 :30 Guaifenesin (Robitussin Liquid Cup) 100 mg Q6H PRN PO COUGH Last administered on 01/08/17 07:54; Admin Dose 100 MG; Start 01/06/17 at 11:30 Levothyroxine Sodium (Synthroid) 112 mcg DAILY@06 PO Last administered on 05:42; Admin Dose 112 MCG; Start 01/07/17 at 06:00 Lisinopril (Zestril) 2.5 mg DAILY PO Last administered on 01/29/17 09:00; Admin Dose 2.5 MG; Start 01/07/17 at 09:00 Senna (Senokot) 2 tab HS PO Last administered on 01/29/17 20:15; Admin Dose 2 TAB; Start 01/06/17 at 21:00 Atorvastatin Calcium (Lipitor) 40 mg HS PO Last administered on 01/29/17 20:15 ; Admin Dose 40 MG; Start 01/14/17 at 21:00 Lidocaine (Xylocaine 4% (Mpf)) 5 ml ONCE PRN HHN BREATHING TREATMENT Last administered on 01/15/17 09:38; Admin Dose 5 ML; Start 01/15/17 at 09:30 Alendronate Sodium (Fosamax) 70 mg We@0630 PO Last administered on 01/21/17 07: 00; Admin Dose 70 MG; Start 01/21/17 at 06:30 Polyethylene Glycol (Miralax) 17 gm DAILY PRN PO constipation; Start 01/20/17 at 18:30 Insulin Glargine (Lantus) 13 unit DAILY@08 SC Last administered on 01/30/17 09 :04; Admin Dose 13 UNIT; Start 01/22/17 at 08:00; Status Future hold Morphine Sulfate (morphine) 1 mg Q2 PRN IV PAIN LEVEL 1-5; Start 01/26/17 at 14 :00 Morphine Sulfate (morphine) 2 mg Q2 PRN IV PAIN LEVEL 6-10 Last administered on 01/29/17 23:05; Admin Dose 2 MG; Start 01/26/17 at 14:00 Ondansetron HCl 4 mg 4 mg Q6H PRN IV NAUSEA AND/OR VOMITING; Start 01/26/17 at 14:00 Magnesium Sulfate/ Dextrose (Magnesium Sulfate 1 Gm/D5W) 100 ml @ 100 mls/hr PRN PRN IVPB PENDING LAB VALUE Last administered on 01/28/17 03:58; Admin Dose 100 MLS/HR; Start 01/26/17 at 14:00 Dextrose (D50w Syringe) 25 ml Q15M PRN IV Till BS 80 mg/dL or above x2; Start 01/26/17 at 20:30 Dextrose 50 ml 50 ml Q15M PRN IV Till BS 80 mg/dL or above x2; Start 01/26/17 at 20:30 Potassium Chloride/Lactated Ringer's (KCl/Lr) 1,020 ml @ 75 mls/hr [id number] IV Last administered on 01/29/17 04:08; Admin Dose 75 MLS/HR; Start 01/27/17 at 20 :00 Insulin Human NPH (Humulin N) 9 unit DAILY@20 SC Last administered on 20:14; Admin Dose 9 UNIT; Start 01/28/17 at 20:00 Docusate Sodium (Colace) 100 mg BID PO Last administered on 01/30/17 09:02; Admin Dose 100 MG; Start 01/29/17 at 21:00 TANIYA OLMSTEAD Jan 30, 2017 09:37
--- NOTE | 2017-01-30 10:44 | CONS ---
Date/Time of Note Date/Time of Note DATE: 01/30/17 TIME: 10:43 Consult Date/Type/Reason Admit Date/Time Jan 06, 2017 at 10:49 Type of Consultation: Pulmonary Ordering Provider: TANIYA OLMSTEAD Subjective Patient stable this morning no new events. Awake alert oriented. Approximately 200 cc output from chest tube. Objective Vital Signs Date Time Temp Pulse Resp B/P Pulse Ox O2 Delivery O2 Flow Rate FiO2 01/30/17 08:57 2.0 01/30/17 08:57 101 25 98 Nasal Cannula 01/30/17 08:00 99.0 86/59 01/27/17 19:46 35 Intake and Output 01/29/17 01/29/17 01/30/17 14:59 22:59 06:59 Intake Total 595 ml 420 ml 180 ml Output Total 464 ml 399 ml 675 ml Balance 131 ml 21 ml -495 ml Exam GENERAL: Pleasant lady comfortable in bed no acute distress VITAL SIGNS: per chart NECK: Supple. No JVD or lymphadenopathy. CARDIAC EXAM: S1, S2. No added sounds or murmurs. CHEST: diminished air entry bilaterally chest tube in place ABDOMEN: Soft, nontender. No guarding or rebound. EXTREMITIES: No cyanosis, clubbing or edema. NEUROLOGIC: Generalized weakness. No focal deficits. Results/Medications Result Diagram: 01/30/17 0500 01/30/17 0500 Results 24 hrs Laboratory Tests Test 01/29/17 11:54 01/29/17 17:55 01/29/17 20:11 01/30/17 05:00 Bedside Glucose 184 107 99 White Blood Count 8.3 Red Blood Count 3.83 L Hemoglobin 11.4 L Hematocrit 36.0 L Mean Corpuscular Volume 94.0 Mean Corpuscular Hemoglobin 29.8 Mean Corpuscular Hemoglobin Concent 31.7 L Red Cell Distribution Width 16.9 H Platelet Count 240 # Mean Platelet Volume 10.1 Neutrophils % 63.0 Lymphocytes % 12.5 L Monocytes % 10.7 Eosinophils % 12.9 H Basophils % 0.7 Nucleated Red Blood Cells % 0.0 Neutrophils # (Manual) 5 Lymphocytes # 1.0 Monocytes # 0.9 Eosinophils # 1.1 H Basophils # 0.1 Nucleated Red Blood Cells # 0.0 Sodium Level 138 Potassium Level 3.7 Chloride Level 101 Carbon Dioxide Level 30 Anion Gap 11 Blood Urea Nitrogen 9 Creatinine 0.40 L Glucose Level 97 # Calcium Level 8.2 L Test 01/30/17 07:41 Bedside Glucose 100 Medications Current Medications Acetaminophen (Tylenol Tab) 650 mg Q6H PRN PO PAIN LEVEL 1-3 OR FEVER; Start at 11:30 Acetaminophen (Tylenol Supp) 650 mg Q6H PRN [place] PAIN LEVEL 1-3 OR FEVER; Start 01/06/17 at 11:30 Aspirin (Halfprin) 81 mg DAILY PO Last administered on 01/30/17 09:02; Admin Dose 81 MG; Start 01/07/17 at 09:00 Duloxetine HCl (Cymbalta) 20 mg DAILY PO Last administered on 01/30/17 09:02; Admin Dose 20 MG; Start 01/07/17 at 09:00 Gabapentin (Neurontin) 300 mg TID PO Last administered on 01/30/17 09:02; Admin Dose 300 MG; Start 01/06/17 at 13:00 Metoprolol Tartrate (Lopressor) 12.5 mg BID PO ; Start 01/06/17 at 21:00; Status Future Hold Ticagrelor (Brilinta) 90 mg BID PO Last administered on 01/16/17 08:21; Admin Dose 90 MG; Start 01/06/17 at 21:00; Status Future Hold Furosemide (Lasix) 20 mg DAILY PO ; Start 01/07/17 at 09:00; Status Future Hold Bisacodyl (Dulcolax Supp) 10 mg DAILY PRN [place] CONSTIPATION; Start 01/06/17 at 11 :30 Guaifenesin (Robitussin Liquid Cup) 100 mg Q6H PRN PO COUGH Last administered on 01/08/17 07:54; Admin Dose 100 MG; Start 01/06/17 at 11:30 Levothyroxine Sodium (Synthroid) 112 mcg DAILY@06 PO Last administered on 05:42; Admin Dose 112 MCG; Start 01/07/17 at 06:00 Lisinopril (Zestril) 2.5 mg DAILY PO Last administered on 01/29/17 09:00; Admin Dose 2.5 MG; Start 01/07/17 at 09:00 Senna (Senokot) 2 tab HS PO Last administered on 01/29/17 20:15; Admin Dose 2 TAB; Start 01/06/17 at 21:00 Atorvastatin Calcium (Lipitor) 40 mg HS PO Last administered on 01/29/17 20:15 ; Admin Dose 40 MG; Start 01/14/17 at 21:00 Lidocaine (Xylocaine 4% (Mpf)) 5 ml ONCE PRN HHN BREATHING TREATMENT Last administered on 01/15/17 09:38; Admin Dose 5 ML; Start 01/15/17 at 09:30 Alendronate Sodium (Fosamax) 70 mg We@0630 PO Last administered on 01/21/17 07: 00; Admin Dose 70 MG; Start 01/21/17 at 06:30 Polyethylene Glycol (Miralax) 17 gm DAILY PRN PO constipation; Start 01/20/17 at 18:30 Insulin Glargine (Lantus) 13 unit DAILY@08 SC Last administered on 01/30/17 09 :04; Admin Dose 13 UNIT; Start 01/22/17 at 08:00; Status Future hold Morphine Sulfate (morphine) 1 mg Q2 PRN [place] PAIN LEVEL 1-5 Last administered on 01/30/17 10:28; Admin Dose 1 MG; Start 01/26/17 at 14:00 Morphine Sulfate (morphine) 2 mg Q2 PRN IV PAIN LEVEL 6-10 Last administered on 01/29/17 23:05; Admin Dose 2 MG; Start 01/26/17 at 14:00 Ondansetron HCl 4 mg 4 mg Q6H PRN IV NAUSEA AND/OR VOMITING; Start 01/26/17 at 14:00 Magnesium Sulfate/ Dextrose (Magnesium Sulfate 1 Gm/D5W) 100 ml @ 100 mls/hr PRN PRN IVPB PENDING LAB VALUE Last administered on 01/28/17 03:58; Admin Dose 100 MLS/HR; Start 01/26/17 at 14:00 Dextrose (D50w Syringe) 25 ml Q15M PRN IV Till BS 80 mg/dL or above x2; Start 01/26/17 at 20:30 Dextrose 50 ml 50 ml Q15M PRN IV Till BS 80 mg/dL or above x2; Start 01/26/17 at 20:30 Potassium Chloride/Lactated Ringer's (KCl/Lr) 1,020 ml @ 75 mls/hr [id number] IV Last administered on 01/29/17 04:08; Admin Dose 75 MLS/HR; Start 01/27/17 at 20 :00 Insulin Human NPH (Humulin N) 9 unit DAILY@20 SC Last administered on 20:14; Admin Dose 9 UNIT; Start 01/28/17 at 20:00 Docusate Sodium (Colace) 100 mg BID PO Last administered on 01/30/17 09:02; Admin Dose 100 MG; Start 01/29/17 at 21:00 Assessment/Plan Chief Complaint/Hosp Course assessment 1. Severe obstructive and restrictive lung disease on recent pulmonary function testing. Patient remains stable nasal cannula following coronary artery bypass graft surgery. 2. Recent non-ST elevation [place]. Stable following coronary artery bypass graft surgery. 3. Postop left chest tube in place still has moderate output. Plan 1. Continue cardiac recommendations 2. Continue bronchodilators [id number]. Continue incentive spirometry. 3. Chest tube management per thoracic surgery hopefully removed soon, once decreased chest drain output. 4. Encourage out of bed. Consider removal of [place] cath soon. 5. Continue physical therapy. Problems: STEFANI GONZALES MD, [facility] Jan 30, 2017 10:44
--- NOTE | 2017-01-30 11:12 | CONS ---
Date/Time of Note Date/Time of Note DATE: 01/30/17 TIME: 11:09 Assessment/Plan Assessment/Plan Additional Assessment/Plan 1. CAD with Triple vessel disease - post Op now/ DEE/SVG - tolerated procedure well - con't to wean. POD # 5 - better overall - EXTUBATED, ambulated in am - MUCH BETTER - con't to improve. STILL BETTER TODAY 2. Carotid artery disease - no CP now, in good fluid status - con't to adjust Rx. 3. Neck Mass - no Rx needed - ENT r/o malignancy. 4 Hypertension - well Rx, con't med rx - well rx - well Rx. Will follow. 5. Diabetes - On ISS. might need gtt - endo team follows 6 CHF - chronic, good fluid status now.- WILL KEEP EUVOLEMIC 7. Resp failure - ABG on range, extub today - doing well off vent. 8. tach - sinus tach - con't pain Rx Consultation Date/Type/Reason Admit Date/Time Jan 06, 2017 at 10:49 Type of Consultation: Pulmonary Referring Provider: TANIYA OLMSTEAD 24 HR Interval Summary Free Text/Dictation NO acute change - better overall - still [address] =- will monitor clinically. ROS: No fever, no chills, no nausea, no vomiting, no diarrhea/constipation No recent weight changes No chest pain, no PND, no orthopnea No dizziness, blurred vision No thirst, no heat or cold intolerance Exam/Review of Systems Vital Signs Vitals Vital Signs Date Time Temp Pulse Resp B/P Pulse Ox O2 Delivery O2 Flow Rate FiO2 01/30/17 08:57 2.0 01/30/17 08:57 101 25 98 Nasal Cannula 01/30/17 08:00 99.0 86/59 01/27/17 19:46 35 Intake and Output 01/29/17 01/29/17 01/30/17 15:00 23:00 07:00 Intake Total 600 ml 360 ml 180 ml Output Total 500 ml 388 ml 650 ml Balance 100 ml -28 ml -470 ml Exam Geneal: WN/WD/NAD, AOx 3 HEENT: Unicetric/atraumatic/EOMI (follows commands) NECK: JVD elevated, no thyromegaly Lymph: no lymphadenopathy HEART: regular with no S3, II/ systolic murmur at apex NO RUB LUNGS: Coarse sounds, CT in ABD: soft, NT, ND, +BS : Intact Neuro: non focal SKIN: chronic changes EXT: trace edema Results Result Diagram: 01/30/17 0500 01/30/17 0500 Results 24 hrs Laboratory Tests Test 01/29/17 11:54 01/29/17 17:55 01/29/17 20:11 01/30/17 05:00 Bedside Glucose 184 107 99 White Blood Count 8.3 Red Blood Count 3.83 L Hemoglobin 11.4 L Hematocrit 36.0 L Mean Corpuscular Volume 94.0 Mean Corpuscular Hemoglobin 29.8 Mean Corpuscular Hemoglobin Concent 31.7 L Red Cell Distribution Width 16.9 H Platelet Count 240 # Mean Platelet Volume 10.1 Neutrophils % 63.0 Lymphocytes % 12.5 L Monocytes % 10.7 Eosinophils % 12.9 H Basophils % 0.7 Nucleated Red Blood Cells % 0.0 Neutrophils # (Manual) 5 Lymphocytes # 1.0 Monocytes # 0.9 Eosinophils # 1.1 H Basophils # 0.1 Nucleated Red Blood Cells # 0.0 Sodium Level 138 Potassium Level 3.7 Chloride Level 101 Carbon Dioxide Level 30 Anion Gap 11 Blood Urea Nitrogen 9 Creatinine 0.40 L Glucose Level 97 # Calcium Level 8.2 L Test 01/30/17 07:41 Bedside Glucose 100 Medications Medications Current Medications Acetaminophen (Tylenol Tab) 650 mg Q6H PRN PO PAIN LEVEL 1-3 OR FEVER; Start at 11:30 Acetaminophen (Tylenol Supp) 650 mg Q6H PRN [place] PAIN LEVEL 1-3 OR FEVER; Start 01/06/17 at 11:30 Aspirin (Halfprin) 81 mg DAILY PO Last administered on 01/30/17 09:02; Admin Dose 81 MG; Start 01/07/17 at 09:00 Duloxetine HCl (Cymbalta) 20 mg DAILY PO Last administered on 01/30/17 09:02; Admin Dose 20 MG; Start 01/07/17 at 09:00 Gabapentin (Neurontin) 300 mg TID PO Last administered on 01/30/17 09:02; Admin Dose 300 MG; Start 01/06/17 at 13:00 Metoprolol Tartrate (Lopressor) 12.5 mg BID PO ; Start 01/06/17 at 21:00; Status Future Hold Ticagrelor (Brilinta) 90 mg BID PO Last administered on 01/16/17 08:21; Admin Dose 90 MG; Start 01/06/17 at 21:00; Status Future Hold Furosemide (Lasix) 20 mg DAILY PO ; Start 01/07/17 at 09:00; Status Future Hold Bisacodyl (Dulcolax Supp) 10 mg DAILY PRN [place] CONSTIPATION; Start 01/06/17 at 11 :30 Guaifenesin (Robitussin Liquid Cup) 100 mg Q6H PRN PO COUGH Last administered on 01/08/17 07:54; Admin Dose 100 MG; Start 01/06/17 at 11:30 Levothyroxine Sodium (Synthroid) 112 mcg DAILY@06 PO Last administered on 05:42; Admin Dose 112 MCG; Start 01/07/17 at 06:00 Lisinopril (Zestril) 2.5 mg DAILY PO Last administered on 01/29/17 09:00; Admin Dose 2.5 MG; Start 01/07/17 at 09:00 Senna (Senokot) 2 tab HS PO Last administered on 01/29/17 20:15; Admin Dose 2 TAB; Start 01/06/17 at 21:00 Atorvastatin Calcium (Lipitor) 40 mg HS PO Last administered on 01/29/17 20:15 ; Admin Dose 40 MG; Start 01/14/17 at 21:00 Lidocaine (Xylocaine 4% (Mpf)) 5 ml ONCE PRN HHN BREATHING TREATMENT Last administered on 01/15/17 09:38; Admin Dose 5 ML; Start 01/15/17 at 09:30 Alendronate Sodium (Fosamax) 70 mg We@0630 PO Last administered on 01/21/17 07: 00; Admin Dose 70 MG; Start 01/21/17 at 06:30 Polyethylene Glycol (Miralax) 17 gm DAILY PRN PO constipation; Start 01/20/17 at 18:30 Insulin Glargine (Lantus) 13 unit DAILY@08 SC Last administered on 01/30/17 09 :04; Admin Dose 13 UNIT; Start 01/22/17 at 08:00; Status Future hold Morphine Sulfate (morphine) 1 mg Q2 PRN IV PAIN LEVEL 1-5 Last administered on 01/30/17 10:28; Admin Dose 1 MG; Start 01/26/17 at 14:00 Morphine Sulfate (morphine) 2 mg Q2 PRN IV PAIN LEVEL 6-10 Last administered on 01/29/17 23:05; Admin Dose 2 MG; Start 01/26/17 at 14:00 Ondansetron HCl 4 mg 4 mg Q6H PRN IV NAUSEA AND/OR VOMITING; Start 01/26/17 at 14:00 Magnesium Sulfate/ Dextrose (Magnesium Sulfate 1 Gm/D5W) 100 ml @ 100 mls/hr PRN PRN IVPB PENDING LAB VALUE Last administered on 01/28/17 03:58; Admin Dose 100 MLS/HR; Start 01/26/17 at 14:00 Dextrose (D50w Syringe) 25 ml Q15M PRN IV Till BS 80 mg/dL or above x2; Start 01/26/17 at 20:30 Dextrose 50 ml 50 ml Q15M PRN IV Till BS 80 mg/dL or above x2; Start 01/26/17 at 20:30 Potassium Chloride/Lactated Ringer's (KCl/Lr) 1,020 ml @ 75 mls/hr [id number] IV Last administered on 01/29/17 04:08; Admin Dose 75 MLS/HR; Start 01/27/17 at 20 :00 Insulin Human NPH (Humulin N) 9 unit DAILY@20 SC Last administered on 20:14; Admin Dose 9 UNIT; Start 01/28/17 at 20:00 Docusate Sodium (Colace) 100 mg BID PO Last administered on 01/30/17 09:02; Admin Dose 100 MG; Start 01/29/17 at 21:00 ARTIE MARADIAGA MD Jan 30, 2017 11:12
--- NOTE | 2017-01-30 13:36 | RADRPT ---
Vent Rate: 98 bpm RR Interval: 0 msec PA Interval: 142 msec QRS Duration: 72 msec QT Interval: 336 msec QTC Interval: 428 msec P-R-T [place]: 58 - 84 - 75 degrees Normal sinus rhythm Low voltage QRS Cannot rule out anterior infarct , age undetermined Abnormal ECG Electronically Signed By: Camden Hernandez [id number]
--- NOTE | 2017-01-30 13:36 | RADRPT ---
Vent Rate: 98 bpm RR Interval: 0 msec [place] Interval: 166 msec QRS Duration: 68 msec QT Interval: 334 msec QTC Interval: 426 msec P-R-T [place]: 0 - 95 - 76 degrees Normal sinus rhythm Rightward axis Low voltage QRS Borderline ECG Electronically Signed By: Camden Hernandez [id number]
--- NOTE | 2017-01-30 13:38 | RADRPT ---
Vent Rate: 106 bpm RR Interval: 0 msec [place] Interval: 144 msec QRS Duration: 70 msec QT Interval: 338 msec QTC Interval: 448 msec P-R-T [place]: 60 - 49 - 62 degrees Sinus tachycardia Low voltage QRS Cannot rule out Anterior infarct , age undetermined Abnormal ECG Electronically Signed By: Camden Hernandez [id number]
--- NOTE | 2017-01-30 13:40 | RADRPT ---
Vent Rate: 101 bpm RR Interval: 0 msec [place] Interval: 132 msec QRS Duration: 68 msec QT Interval: 332 msec QTC Interval: 430 msec P-R-T [place]: -9 - 41 - 46 degrees Sinus tachycardia Low voltage QRS Anteroseptal infarct , age undetermined Abnormal ECG Electronically Signed By: Camden Hernandez [id number]
--- NOTE | 2017-01-30 20:35 | PN ---
Date/Time of Note Date/Time of Note DATE: 01/30/17 TIME: 20:34 Assessment/Plan VTE Prophylaxis VTE Prophylaxis Intervention: other Lines/Catheters IV [facility] Type [facility] [place] line still needed: No Urinary Cath still in place: No Assessment/Plan Chief Complaint/Hosp Course Patient with coronary artery disease Status post myocardial infarction Right carotid occlusion COPD Status post coronary artery bypass grafting DEE to LAD Saphenous vein graft to the obtuse marginal branch of the circumflex Patient was extubated this morning Hemodynamically stable will DC pacing wires DC chest tube Transfer to telemetry Up to the chair and pulmonary toilet Discussed with the referring physicians Problems: Subjective 24 Hr Interval Summary Gastrointestinal: no complaints Genitourinary: no complaints Musculoskeletal: no complaints Skin: no complaints Neurologic: no complaints Exam/Review of Systems Vital Signs Vitals Vital Signs Date Time Temp Pulse Resp B/P Pulse Ox O2 Delivery O2 Flow Rate FiO2 01/30/17 20:03 2.0 01/30/17 20:03 102 20 97 Nasal Cannula 01/30/17 18:00 96/61 01/30/17 16:00 99.3 01/27/17 19:46 35 Intake and Output 01/29/17 01/29/17 01/30/17 15:00 23:00 07:00 Intake Total 600 ml 360 ml 180 ml Output Total 420 ml 328 ml 650 ml Balance 180 ml 32 ml -470 ml Exam ENMT: nl external ears & nose, nl lips & teeth, nl nasal mucosa & septum Neck: non-tender, supple Respiratory: clear to auscultation, normal air movement Cardiovascular: nl pulses, regular rate and rhythm Gastrointestinal: nl liver, spleen, non-tender, soft Results Result Diagram: 01/30/17 0500 01/30/17 0500 Results 24 hrs Laboratory Tests Test 01/30/17 05:00 01/30/17 07:41 01/30/17 12:11 01/30/17 17:31 White Blood Count 8.3 Red Blood Count 3.83 L Hemoglobin 11.4 L Hematocrit 36.0 L Mean Corpuscular Volume 94.0 Mean Corpuscular Hemoglobin 29.8 Mean Corpuscular Hemoglobin Concent 31.7 L Red Cell Distribution Width 16.9 H Platelet Count 240 # Mean Platelet Volume 10.1 Neutrophils % 63.0 Lymphocytes % 12.5 L Monocytes % 10.7 Eosinophils % 12.9 H Basophils % 0.7 Nucleated Red Blood Cells % 0.0 Neutrophils # (Manual) 5 Lymphocytes # 1.0 Monocytes # 0.9 Eosinophils # 1.1 H Basophils # 0.1 Nucleated Red Blood Cells # 0.0 Sodium Level 138 Potassium Level 3.7 Chloride Level 101 Carbon Dioxide Level 30 Anion Gap 11 Blood Urea Nitrogen 9 Creatinine 0.40 L Glucose Level 97 # Calcium Level 8.2 L Bedside Glucose 100 102 74 Medications Medications Current Medications Acetaminophen (Tylenol Tab) 650 mg Q6H PRN PO PAIN LEVEL 1-3 OR FEVER; Start at 11:30 Acetaminophen (Tylenol Supp) 650 mg Q6H PRN [place] PAIN LEVEL 1-3 OR FEVER; Start 01/06/17 at 11:30 Aspirin (Halfprin) 81 mg DAILY PO Last administered on 01/30/17 09:02; Admin Dose 81 MG; Start 01/07/17 at 09:00 Duloxetine HCl (Cymbalta) 20 mg DAILY PO Last administered on 01/30/17 09:02; Admin Dose 20 MG; Start 01/07/17 at 09:00 Gabapentin (Neurontin) 300 mg TID PO Last administered on 01/30/17 13:08; Admin Dose 300 MG; Start 01/06/17 at 13:00 Metoprolol Tartrate (Lopressor) 12.5 mg BID PO ; Start 01/06/17 at 21:00; Status Future Hold Ticagrelor (Brilinta) 90 mg BID PO Last administered on 01/16/17 08:21; Admin Dose 90 MG; Start 01/06/17 at 21:00; Status Future Hold Furosemide (Lasix) 20 mg DAILY PO ; Start 01/07/17 at 09:00; Status Future Hold Bisacodyl (Dulcolax Supp) 10 mg DAILY PRN [place] CONSTIPATION; Start 01/06/17 at 11 :30 Guaifenesin (Robitussin Liquid Cup) 100 mg Q6H PRN PO COUGH Last administered on 01/08/17 07:54; Admin Dose 100 MG; Start 01/06/17 at 11:30 Levothyroxine Sodium (Synthroid) 112 mcg DAILY@06 PO Last administered on 05:42; Admin Dose 112 MCG; Start 01/07/17 at 06:00 Lisinopril (Zestril) 2.5 mg DAILY PO Last administered on 01/29/17 09:00; Admin Dose 2.5 MG; Start 01/07/17 at 09:00 Senna (Senokot) 2 tab HS PO Last administered on 01/29/17 20:15; Admin Dose 2 TAB; Start 01/06/17 at 21:00 Atorvastatin Calcium (Lipitor) 40 mg HS PO Last administered on 01/29/17 20:15 ; Admin Dose 40 MG; Start 01/14/17 at 21:00 Lidocaine (Xylocaine 4% (Mpf)) 5 ml ONCE PRN HHN BREATHING TREATMENT Last administered on 01/15/17 09:38; Admin Dose 5 ML; Start 01/15/17 at 09:30 Alendronate Sodium (Fosamax) 70 mg We@0630 PO Last administered on 01/21/17 07: 00; Admin Dose 70 MG; Start 01/21/17 at 06:30 Polyethylene Glycol (Miralax) 17 gm DAILY PRN PO constipation; Start 01/20/17 at 18:30 Insulin Glargine (Lantus) 13 unit DAILY@08 SC Last administered on 01/30/17 09 :04; Admin Dose 13 UNIT; Start 01/22/17 at 08:00; Status Future hold Morphine Sulfate (morphine) 1 mg Q2 PRN IV PAIN LEVEL 1-5 Last administered on 01/30/17 10:28; Admin Dose 1 MG; Start 01/26/17 at 14:00 Morphine Sulfate (morphine) 2 mg Q2 PRN IV PAIN LEVEL 6-10 Last administered on 01/29/17 23:05; Admin Dose 2 MG; Start 01/26/17 at 14:00 Ondansetron HCl 4 mg 4 mg Q6H PRN IV NAUSEA AND/OR VOMITING; Start 01/26/17 at 14:00 Magnesium Sulfate/ Dextrose (Magnesium Sulfate 1 Gm/D5W) 100 ml @ 100 mls/hr PRN PRN IVPB PENDING LAB VALUE Last administered on 01/28/17 03:58; Admin Dose 100 MLS/HR; Start 01/26/17 at 14:00 Dextrose (D50w Syringe) 25 ml Q15M PRN IV Till BS 80 mg/dL or above x2; Start 01/26/17 at 20:30 Dextrose 50 ml 50 ml Q15M PRN IV Till BS 80 mg/dL or above x2; Start 01/26/17 at 20:30 Potassium Chloride/Lactated Ringer's (KCl/Lr) 1,020 ml @ 75 mls/hr [id number] IV Last administered on 01/29/17 04:08; Admin Dose 75 MLS/HR; Start 01/27/17 at 20 :00 Insulin Human NPH (Humulin N) 9 unit DAILY@20 SC Last administered on 20:14; Admin Dose 9 UNIT; Start 01/28/17 at 20:00 Docusate Sodium (Colace) 100 mg BID PO Last administered on 01/30/17 09:02; Admin Dose 100 MG; Start 01/29/17 at 21:00 CHELA ALVARENGA MD Jan 30, 2017 20:35
[2017-01-30] MEDS: morphine 2 MG INJ IV PRN (20:38)
[2017-01-30] MEDS: SENNA TAB PO SCH (20:53)
[2017-01-30] MEDS: ATORVASTATIN 40 MG TAB PO SCH (20:54)
[2017-01-30] MEDS: NPH, HUMAN INSULIN ISOPHANE 3ML VIAL SC SCH (20:59)
[2017-01-31] VITALS (25 sets, daily range): BP systolic 83–123; BP diastolic 38–62; PULSE 98–119; RESP 17–41
[2017-01-31] MEDS: ALBUTEROL/IPRATROPIUM (NEB) 3 ML AMP HHN SCH ×4 (01:28→19:47)
[2017-01-31] MEDS: morphine 2 MG INJ IV PRN ×3 (03:01→22:37)
[2017-01-31] MEDS: LEVOTHYROXINE 112 MCG TAB PO SCH (05:28)
[2017-01-31 06:28] LABS: BASOPHILS % 0.5 % (0.0-2.0); EOSINOPHILS % 13.4 % (0.0-7.0); HEMATOCRIT 35.6 % (37.0-47.0); HEMOGLOBIN 10.9 g/dl (12.0-16.0); LYMPHOCYTES # 0.7 10^3/ul (0.8-2.9); LYMPHOCYTES % 9.8 % (15.0-51.0); MEAN CORPUSCULAR HEMOGLOBIN 29.1 pg (29.0-33.0); MEAN CORPUSCULAR HGB CONC 30.6 g/dl (32.0-37.0); MEAN CORPUSCULAR VOLUME 94.9 fl (82.0-101.0); MONOCYTE # 0.8 10^3/ul (0.3-0.9); MONOCYTES % 10.4 % (0.0-11.0); NEUTROPHILS % 65.6 % (39.0-77.0); PLATELET COUNT 275 10^3/UL (140-415); RED BLOOD COUNT 3.75 10^6/ul (4.20-5.40); RED CELL DISTRIBUTION WIDTH 16.4 % (11.5-14.5); WHITE BLOOD COUNT 7.4 10^3/ul (4.8-10.8)
[2017-01-31 06:55] LABS: MAGNESIUM 1.8 mg/dl (1.7-2.5)
[2017-01-31 06:58] LABS: CALCIUM 8.5 mg/dl (8.4-10.2); CREATININE 0.46 mg/dl (0.44-1.00); POTASSIUM 3.8 mmol/L (3.5-5.1)
--- NOTE | 2017-01-31 07:03 | CONS ---
Date/Time of Note Date/Time of Note DATE: 01/31/17 TIME: 06:59 Assessment/Plan Assessment/Plan Problems: (1) Acquired hypothyroidism Status: Chronic Comment: She is stable on replacement levothyroxine therapy. She is biochemically balanced and should continue this medication. As she is taking p.o. this will be given p.o. (2) COPD (chronic obstructive pulmonary disease) with chronic bronchitis Status: Chronic Comment: This appears to be stable. Pulmonary has been involved in her care and she appears to be relatively balanced and compensated on her current regimen. (3) Type 1 diabetes mellitus with diabetic polyneuropathy Status: Chronic Comment: On her current insulin regimen she is starting to take p.o. and her sugars are holding. She did have a modest hypoglycemia overnight but is otherwise stable. She is okay for transfer to telemetry floor care at this time (4) Status post aorto-coronary artery bypass graft Onset Date: ~ 01/26/2017 Status: Acute Comment: She is postoperative from revascularization for critical coronary artery disease. Please note she still has a carotid stenosis (5) Mass of epiglottis Status: Acute Comment: Please see notes from ENT. They have done a follow-up evaluation and the mass appears to have actually been immediate trauma from prior intubation. Hopefully this will be the long-term outcome of this Consultation Date/Type/Reason Admit Date/Time Jan 06, 2017 at 10:49 Initial Consult Date 01/16/17 Type of Consultation: Endocrinology Reason for Consultation Acquired hypothyroidism; diabetes mellitus type 1 with peripheral neuropathy; polyneuropathy Referring Provider: TANIYA OLMSTEAD 24 HR Interval Summary Free Text/Dictation Patient sleeping in bed easily aroused. Reports she is starting taking p.o. Constitutional: no complaints (Denies fevers chills or sweats) Detailed Summary Respiratory: no complaints Cardiovascular: chest pain Gastrointestinal: no complaints Exam/Review of Systems Vital Signs Vitals Vital Signs Date Time Temp Pulse Resp B/P Pulse Ox O2 Delivery O2 Flow Rate FiO2 01/31/17 06:00 97.9 100 22 92/54 100 Nasal Cannula 2.0 01/27/17 19:46 35 Intake and Output 01/30/17 01/30/17 01/31/17 15:00 23:00 07:00 Intake Total 480 ml 340 ml 200 ml Output Total 590 ml 770 ml 733 ml Balance -110 ml -430 ml -533 ml Exam Easily awakened Neck: non-tender, supple Respiratory: clear to auscultation, normal air movement Gastrointestinal: nl liver, spleen, non-tender, soft Results Result Diagram: 01/31/17 0500 01/30/17 0500 Results 24 hrs Laboratory Tests Test 01/30/17 07:41 01/30/17 12:11 01/30/17 17:31 01/30/17 20:53 Bedside Glucose 100 102 74 121 Test 01/31/17 04:31 01/31/17 04:52 01/31/17 05:00 01/31/17 05:13 Bedside Glucose 40 *L 171 140 White Blood Count 7.4 Red Blood Count 3.75 L Hemoglobin 10.9 L Hematocrit 35.6 L Mean Corpuscular Volume 94.9 Mean Corpuscular Hemoglobin 29.1 Mean Corpuscular Hemoglobin Concent 30.6 L Red Cell Distribution Width 16.4 H Platelet Count 275 Mean Platelet Volume 10.0 Neutrophils % 65.6 Lymphocytes % 9.8 L Monocytes % 10.4 Eosinophils % 13.4 H Basophils % 0.5 Nucleated Red Blood Cells % 0.0 Neutrophils # (Manual) 5 Lymphocytes # 0.7 L Monocytes # 0.8 Eosinophils # 1.0 H Basophils # 0.0 Nucleated Red Blood Cells # 0.0 Medications Medications Current Medications Acetaminophen (Tylenol Tab) 650 mg Q6H PRN PO PAIN LEVEL 1-3 OR FEVER; Start at 11:30 Acetaminophen (Tylenol Supp) 650 mg Q6H PRN MA PAIN LEVEL 1-3 OR FEVER; Start 01/06/17 at 11:30 Aspirin (Halfprin) 81 mg DAILY PO Last administered on 01/30/17 09:02; Admin Dose 81 MG; Start 01/07/17 at 09:00 Duloxetine HCl (Cymbalta) 20 mg DAILY PO Last administered on 01/30/17 09:02; Admin Dose 20 MG; Start 01/07/17 at 09:00 Gabapentin (Neurontin) 300 mg TID PO Last administered on 01/30/17 20:54; Admin Dose 300 MG; Start 01/06/17 at 13:00 Metoprolol Tartrate (Lopressor) 12.5 mg BID PO ; Start 01/06/17 at 21:00; Status Future Hold Ticagrelor (Brilinta) 90 mg BID PO Last administered on 01/16/17 08:21; Admin Dose 90 MG; Start 01/06/17 at 21:00; Status Future Hold Furosemide (Lasix) 20 mg DAILY PO ; Start 01/07/17 at 09:00; Status Future Hold Bisacodyl (Dulcolax Supp) 10 mg DAILY PRN MA CONSTIPATION; Start 01/06/17 at 11 :30 Guaifenesin (Robitussin Liquid Cup) 100 mg Q6H PRN PO COUGH Last administered on 01/08/17 07:54; Admin Dose 100 MG; Start 01/06/17 at 11:30 Levothyroxine Sodium (Synthroid) 112 mcg DAILY@06 PO Last administered on 05:28; Admin Dose 112 MCG; Start 01/07/17 at 06:00 Lisinopril (Zestril) 2.5 mg DAILY PO Last administered on 01/29/17 09:00; Admin Dose 2.5 MG; Start 01/07/17 at 09:00 Senna (Senokot) 2 tab HS PO Last administered on 01/30/17 20:53; Admin Dose 2 TAB; Start 01/06/17 at 21:00 Atorvastatin Calcium (Lipitor) 40 mg HS PO Last administered on 01/30/17 20:54 ; Admin Dose 40 MG; Start 01/14/17 at 21:00 Lidocaine (Xylocaine 4% (Mpf)) 5 ml ONCE PRN HHN BREATHING TREATMENT Last administered on 01/15/17 09:38; Admin Dose 5 ML; Start 01/15/17 at 09:30 Alendronate Sodium (Fosamax) 70 mg We@0630 PO Last administered on 01/21/17 07: 00; Admin Dose 70 MG; Start 01/21/17 at 06:30 Polyethylene Glycol (Miralax) 17 gm DAILY PRN PO constipation; Start 01/20/17 at 18:30 Insulin Glargine (Lantus) 13 unit DAILY@08 SC Last administered on 01/30/17 09 :04; Admin Dose 13 UNIT; Start 01/22/17 at 08:00; Status Future hold Morphine Sulfate (morphine) 1 mg Q2 PRN IV PAIN LEVEL 1-5 Last administered on 01/30/17 10:28; Admin Dose 1 MG; Start 01/26/17 at 14:00 Morphine Sulfate (morphine) 2 mg Q2 PRN IV PAIN LEVEL 6-10 Last administered on 01/31/17 03:01; Admin Dose 2 MG; Start 01/26/17 at 14:00 Ondansetron HCl 4 mg 4 mg Q6H PRN IV NAUSEA AND/OR VOMITING; Start 01/26/17 at 14:00 Magnesium Sulfate/ Dextrose (Magnesium Sulfate 1 Gm/D5W) 100 ml @ 100 mls/hr PRN PRN IVPB PENDING LAB VALUE Last administered on 01/28/17 03:58; Admin Dose 100 MLS/HR; Start 01/26/17 at 14:00 Dextrose (D50w Syringe) 25 ml Q15M PRN IV Till BS 80 mg/dL or above x2; Start 01/26/17 at 20:30 Dextrose 50 ml 50 ml Q15M PRN IV Till BS 80 mg/dL or above x2 Last administered on 01/31/17 04:36; Admin Dose 50 ML; Start 01/26/17 at 20:30 Potassium Chloride/Lactated Ringer's (KCl/Lr) 1,020 ml @ 75 mls/hr [id number] IV Last administered on 01/30/17 21:06; Admin Dose 75 MLS/HR; Start 01/27/17 at 20 :00 Insulin Human NPH (Humulin N) 9 unit DAILY@20 SC Last administered on 20:59; Admin Dose 9 UNIT; Start 01/28/17 at 20:00 Docusate Sodium (Colace) 100 mg BID PO Last administered on 01/30/17 20:54; Admin Dose 100 MG; Start 01/29/17 at 21:00 CODY HENAO MD Jan 31, 2017 07:03
[2017-01-31] MEDS: INSULIN ASPART [NOVOLOG] 3 ML PEN SC SCH ×7 (07:35→20:56)
[2017-01-31] MEDS: INSULIN GLARGINE [LANtus] 3 ML PEN SC SCH ×2 (08:00→12:22)
--- NOTE | 2017-01-31 08:04 | RADRPT ---
PROCEDURE: Chest 1 views. CLINICAL INDICATION: Shortness of breath TECHNIQUE: AP views of the chest was obtained. COMPARISON: Yesterday FINDINGS: The heart is large. Mediasternotomy wires and surgical clips overlie the heart. Right-sided vascula r access sheath is unchanged. Mediastinal drains have been removed. Left-sided chest tube has been removed. No pneumothorax as visualized. Small left pleural effusion with associated basilar atele ctasis/infiltrate is unchanged. Scattered atelectasis is seen in the right lower lobe. Small right pleural effusion is stable. Osseous structures are unchanged. IMPRESSION: Cardiomegaly . Interval removal of mediastinal drains and left chest tube. No visualized pneumothorax. Stable small left pleural effusion with associated basilar atelectasis/infiltrates. Stable scattered atelectasis in the right lower lobe and small right pleural effusion. RPTAT: AA .Vineet Pérez MD, Date Time Electronically viewed and signed by .Vineet Pérez MD, on 01/31/2017 08:04 .P/
--- NOTE | 2017-01-31 08:57 | PN ---
Date/Time of Note Date/Time of Note DATE: 01/31/17 TIME: 08:54 Assessment/Plan VTE Prophylaxis VTE Prophylaxis Intervention: SCD's Lines/Catheters IV Catheter Type (from Nrsg): Saline Lock Urinary Cath still in place: Yes Reason Cath still needed: urinary retention Assessment/Plan Chief Complaint/Hosp Course Assessment/Plan: 56 yo F with poorly controlled DM2 admitted for NSTEMI in setting DKA. Found to have multivessel CAD, s/p CABG POD # 5. Also with incidental finding of L sided subglottic lesion, likely 2/2 prolonged intubation and not in need of additional w/u per ENT 1. multivessel CAD, recent NSTEMI, ICM with EF IMPROVED from <25% to 40%. S/p CABG POD # 5 -Follow-up postop recommendations from CTS team. PT per CTS rec's, for possible chest tube removal per CTS rec's -cont current cardiac meds-->bb/lasix on hold for prior episodes of orthostasis earlier this admission -Continue physical therapy and occupational therapy 2. L subglottic lesion:ENT states 2/2 prolonged intubation and does not require further w/u-monitor for now 3. Severe obstructive and restrictive pulmonary disease-improved overall -Continue bronchodilators, follow-up pulmonary recommendations 4. DM-1 (likely) with wide BG fluctuations earlier this admission, improved when patient was on insulin drip earlier. Now off insulin drip, and on subcutaneous insulin Lantus and NPH. -Continue subcutaneous insulin, follow-up Endo consult recommendations for aid with insulin management 5. Hypothyroidism. -Continue Synthroid. 6. Chronic anemia. cpm DVT prophylaxis: SCD's Critical care time spent today = 45 min. Problems: Subjective 24 Hr Interval Summary Free Text/Dictation Patient had chest tubes removed yesterday. Had some low blood sugar yesterday, resolved after getting D50, otherwise no acute events overnight, denies any current complaints. Exam/Review of Systems Vital Signs Vitals Vital Signs Date Time Temp Pulse Resp B/P Pulse Ox O2 Delivery O2 Flow Rate FiO2 01/31/17 08:00 Nasal Cannula 2.0 01/31/17 07:00 98.1 102 22 95/62 100 01/27/17 19:46 35 Intake and Output 01/30/17 01/30/17 01/31/17 15:00 23:00 07:00 Intake Total 480 ml 340 ml 300 ml Output Total 590 ml 770 ml 778 ml Balance -110 ml -430 ml -478 ml Exam Alert, lying in bed, no acute distress Pupils equal round reactive to light, extraocular muscles intact no mrg lungs clear abd soft no LE edema B/L No focal deficits Results Result Diagram: 01/31/17 0500 01/31/17 0500 Results 24 hrs Laboratory Tests Test 01/30/17 12:11 01/30/17 17:31 01/30/17 20:53 01/31/17 04:31 Bedside Glucose 102 74 121 40 *L Test 01/31/17 04:52 01/31/17 05:00 01/31/17 05:13 01/31/17 07:46 Bedside Glucose 171 140 109 White Blood Count 7.4 Red Blood Count 3.75 L Hemoglobin 10.9 L Hematocrit 35.6 L Mean Corpuscular Volume 94.9 Mean Corpuscular Hemoglobin 29.1 Mean Corpuscular Hemoglobin Concent 30.6 L Red Cell Distribution Width 16.4 H Platelet Count 275 Mean Platelet Volume 10.0 Neutrophils % 65.6 Lymphocytes % 9.8 L Monocytes % 10.4 Eosinophils % 13.4 H Basophils % 0.5 Nucleated Red Blood Cells % 0.0 Neutrophils # (Manual) 5 Lymphocytes # 0.7 L Monocytes # 0.8 Eosinophils # 1.0 H Basophils # 0.0 Nucleated Red Blood Cells # 0.0 Sodium Level 142 Potassium Level 3.8 Chloride Level 98 Carbon Dioxide Level 33 H Anion Gap 15 Blood Urea Nitrogen 8 Creatinine 0.46 Glucose Level 154 Calcium Level 8.5 Phosphorus Level 4.0 Magnesium Level 1.8 Medications Medications Current Medications Acetaminophen (Tylenol Tab) 650 mg Q6H PRN PO PAIN LEVEL 1-3 OR FEVER; Start at 11:30 Acetaminophen (Tylenol Supp) 650 mg Q6H PRN IN PAIN LEVEL 1-3 OR FEVER; Start 01/06/17 at 11:30 Aspirin (Halfprin) 81 mg DAILY PO Last administered on 01/30/17 09:02; Admin Dose 81 MG; Start 01/07/17 at 09:00 Duloxetine HCl (Cymbalta) 20 mg DAILY PO Last administered on 01/30/17 09:02; Admin Dose 20 MG; Start 01/07/17 at 09:00 Gabapentin (Neurontin) 300 mg TID PO Last administered on 01/30/17 20:54; Admin Dose 300 MG; Start 01/06/17 at 13:00 Metoprolol Tartrate (Lopressor) 12.5 mg BID PO ; Start 01/06/17 at 21:00; Status Future Hold Ticagrelor (Brilinta) 90 mg BID PO Last administered on 01/16/17 08:21; Admin Dose 90 MG; Start 01/06/17 at 21:00; Status Future Hold Furosemide (Lasix) 20 mg DAILY PO ; Start 01/07/17 at 09:00; Status Future Hold Bisacodyl (Dulcolax Supp) 10 mg DAILY PRN IN CONSTIPATION; Start 01/06/17 at 11 :30 Guaifenesin (Robitussin Liquid Cup) 100 mg Q6H PRN PO COUGH Last administered on 01/08/17 07:54; Admin Dose 100 MG; Start 01/06/17 at 11:30 Levothyroxine Sodium (Synthroid) 112 mcg DAILY@06 PO Last administered on 05:28; Admin Dose 112 MCG; Start 01/07/17 at 06:00 Lisinopril (Zestril) 2.5 mg DAILY PO Last administered on 01/29/17 09:00; Admin Dose 2.5 MG; Start 01/07/17 at 09:00 Senna (Senokot) 2 tab HS PO Last administered on 01/30/17 20:53; Admin Dose 2 TAB; Start 01/06/17 at 21:00 Atorvastatin Calcium (Lipitor) 40 mg HS PO Last administered on 01/30/17 20:54 ; Admin Dose 40 MG; Start 01/14/17 at 21:00 Lidocaine (Xylocaine 4% (Mpf)) 5 ml ONCE PRN HHN BREATHING TREATMENT Last administered on 01/15/17 09:38; Admin Dose 5 ML; Start 01/15/17 at 09:30 Alendronate Sodium (Fosamax) 70 mg We@0630 PO Last administered on 01/21/17 07: 00; Admin Dose 70 MG; Start 01/21/17 at 06:30 Polyethylene Glycol (Miralax) 17 gm DAILY PRN PO constipation; Start 01/20/17 at 18:30 Insulin Glargine (Lantus) 13 unit DAILY@08 SC Last administered on 01/30/17 09 :04; Admin Dose 13 UNIT; Start 01/22/17 at 08:00; Status Future hold Morphine Sulfate (morphine) 1 mg Q2 PRN IV PAIN LEVEL 1-5 Last administered on 01/30/17 10:28; Admin Dose 1 MG; Start 01/26/17 at 14:00 Morphine Sulfate (morphine) 2 mg Q2 PRN IV PAIN LEVEL 6-10 Last administered on 01/31/17 03:01; Admin Dose 2 MG; Start 01/26/17 at 14:00 Ondansetron HCl 4 mg 4 mg Q6H PRN IV NAUSEA AND/OR VOMITING; Start 01/26/17 at 14:00 Magnesium Sulfate/ Dextrose (Magnesium Sulfate 1 Gm/D5W) 100 ml @ 100 mls/hr PRN PRN IVPB PENDING LAB VALUE Last administered on 01/28/17 03:58; Admin Dose 100 MLS/HR; Start 01/26/17 at 14:00 Dextrose (D50w Syringe) 25 ml Q15M PRN IV Till BS 80 mg/dL or above x2; Start 01/26/17 at 20:30 Dextrose 50 ml 50 ml Q15M PRN IV Till BS 80 mg/dL or above x2 Last administered on 01/31/17 04:36; Admin Dose 50 ML; Start 01/26/17 at 20:30 Potassium Chloride/Lactated Ringer's (KCl/Lr) 1,020 ml @ 75 mls/hr [id number] IV Last administered on 01/30/17 21:06; Admin Dose 75 MLS/HR; Start 01/27/17 at 20 :00 Insulin Human NPH (Humulin N) 9 unit DAILY@20 SC Last administered on 20:59; Admin Dose 9 UNIT; Start 01/28/17 at 20:00 Docusate Sodium (Colace) 100 mg BID PO Last administered on 01/30/17 20:54; Admin Dose 100 MG; Start 01/29/17 at 21:00 TANIYA OLMSTEAD Jan 31, 2017 08:57
[2017-01-31] MEDS: LISINOPRIL 5 MG TAB PO SCH (09:00)
[2017-01-31] MEDS: GABAPENTIN 300 MG CAP PO SCH ×3 (09:04→20:58)
[2017-01-31] MEDS: ASPIRIN (EC) 81 MG TAB PO SCH (09:04)
[2017-01-31] MEDS: DULOXETINE 20 MG CAP DR PO SCH (09:04)
[2017-01-31] MEDS: DOCUSATE SODIUM 100 MG CAP PO SCH ×2 (09:04→20:58)
--- NOTE | 2017-01-31 10:28 | CONS ---
Date/Time of Note Date/Time of Note DATE: 01/31/17 TIME: 10:26 Assessment/Plan Assessment/Plan Additional Assessment/Plan Assessment and recommendations; 1. Patient initially admitted with acute MT status post CABG surgery. 2. History of COPD. Continue current treatment. Patient can be transferred to the medical floor. Consultation Date/Type/Reason Admit Date/Time Jan 06, 2017 at 10:49 Type of Consultation: Pulmonary/critical care Referring Provider: TANIYA OLMSTEAD 24 HR Interval Summary Free Text/Dictation Patient condition is stable. Remains completely awake alert. Denies any shortness of breath, chest pain, abdominal pain, nausea or vomiting. Chest tubes have been removed. General exam; middle-aged woman, awake alert, currently in no distress. Exam/Review of Systems Vital Signs Vitals Vital Signs Date Time Temp Pulse Resp B/P Pulse Ox O2 Delivery O2 Flow Rate FiO2 01/31/17 09:23 102 19 98 Nasal Cannula 2.0 01/31/17 09:00 85/54 01/31/17 08:00 98.4 01/27/17 19:46 35 Intake and Output 01/30/17 01/30/17 01/31/17 15:00 23:00 07:00 Intake Total 480 ml 340 ml 320 ml Output Total 590 ml 770 ml 778 ml Balance -110 ml -430 ml -458 ml Exam HEENT exam; supple neck, no JVD. No lymphadenopathy. Midline trachea. No thyromegaly. Pharynx is clear. Patient is edentulous. Chest exam; clear to auscultation. S1-S2 audible, no murmurs. Regular rhythm. There is a well-healing sternal scar. Abdomen exam; soft, no organomegaly. Bowel sounds audible. Nontender. Extremity exam; no peripheral edema. 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 Results Result Diagram: 01/31/17 0500 01/31/17 0500 Results 24 hrs Laboratory Tests Test 01/30/17 12:11 01/30/17 17:31 01/30/17 20:53 01/31/17 04:31 Bedside Glucose 102 74 121 40 *L Test 01/31/17 04:52 01/31/17 05:00 01/31/17 05:13 01/31/17 07:46 Bedside Glucose 171 140 109 White Blood Count 7.4 Red Blood Count 3.75 L Hemoglobin 10.9 L Hematocrit 35.6 L Mean Corpuscular Volume 94.9 Mean Corpuscular Hemoglobin 29.1 Mean Corpuscular Hemoglobin Concent 30.6 L Red Cell Distribution Width 16.4 H Platelet Count 275 Mean Platelet Volume 10.0 Neutrophils % 65.6 Lymphocytes % 9.8 L Monocytes % 10.4 Eosinophils % 13.4 H Basophils % 0.5 Nucleated Red Blood Cells % 0.0 Neutrophils # (Manual) 5 Lymphocytes # 0.7 L Monocytes # 0.8 Eosinophils # 1.0 H Basophils # 0.0 Nucleated Red Blood Cells # 0.0 Sodium Level 142 Potassium Level 3.8 Chloride Level 98 Carbon Dioxide Level 33 H Anion Gap 15 Blood Urea Nitrogen 8 Creatinine 0.46 Glucose Level 154 Calcium Level 8.5 Phosphorus Level 4.0 Magnesium Level 1.8 Medications Medications Current Medications Acetaminophen (Tylenol Tab) 650 mg Q6H PRN PO PAIN LEVEL 1-3 OR FEVER; Start at 11:30 Acetaminophen (Tylenol Supp) 650 mg Q6H PRN IN PAIN LEVEL 1-3 OR FEVER; Start 01/06/17 at 11:30 Aspirin (Halfprin) 81 mg DAILY PO Last administered on 01/31/17 09:04; Admin Dose 81 MG; Start 01/07/17 at 09:00 Duloxetine HCl (Cymbalta) 20 mg DAILY PO Last administered on 01/31/17 09:04; Admin Dose 20 MG; Start 01/07/17 at 09:00 Gabapentin (Neurontin) 300 mg TID PO Last administered on 01/31/17 09:04; Admin Dose 300 MG; Start 01/06/17 at 13:00 Metoprolol Tartrate (Lopressor) 12.5 mg BID PO ; Start 01/06/17 at 21:00; Status Future Hold Ticagrelor (Brilinta) 90 mg BID PO Last administered on 01/16/17 08:21; Admin Dose 90 MG; Start 01/06/17 at 21:00; Status Future Hold Furosemide (Lasix) 20 mg DAILY PO ; Start 01/07/17 at 09:00; Status Future Hold Bisacodyl (Dulcolax Supp) 10 mg DAILY PRN IN CONSTIPATION; Start 01/06/17 at 11 :30 Guaifenesin (Robitussin Liquid Cup) 100 mg Q6H PRN PO COUGH Last administered on 01/08/17 07:54; Admin Dose 100 MG; Start 01/06/17 at 11:30 Levothyroxine Sodium (Synthroid) 112 mcg DAILY@06 PO Last administered on 05:28; Admin Dose 112 MCG; Start 01/07/17 at 06:00 Lisinopril (Zestril) 2.5 mg DAILY PO Last administered on 01/29/17 09:00; Admin Dose 2.5 MG; Start 01/07/17 at 09:00 Senna (Senokot) 2 tab HS PO Last administered on 01/30/17 20:53; Admin Dose 2 TAB; Start 01/06/17 at 21:00 Atorvastatin Calcium (Lipitor) 40 mg HS PO Last administered on 01/30/17 20:54 ; Admin Dose 40 MG; Start 01/14/17 at 21:00 Lidocaine (Xylocaine 4% (Mpf)) 5 ml ONCE PRN HHN BREATHING TREATMENT Last administered on 01/15/17 09:38; Admin Dose 5 ML; Start 01/15/17 at 09:30 Alendronate Sodium (Fosamax) 70 mg We@0630 PO Last administered on 01/21/17 07: 00; Admin Dose 70 MG; Start 01/21/17 at 06:30 Polyethylene Glycol (Miralax) 17 gm DAILY PRN PO constipation; Start 01/20/17 at 18:30 Insulin Glargine (Lantus) 13 unit DAILY@08 SC Last administered on 01/30/17 09 :04; Admin Dose 13 UNIT; Start 01/22/17 at 08:00; Status Future hold Morphine Sulfate (morphine) 1 mg Q2 PRN IV PAIN LEVEL 1-5 Last administered on 01/30/17 10:28; Admin Dose 1 MG; Start 01/26/17 at 14:00 Morphine Sulfate (morphine) 2 mg Q2 PRN IV PAIN LEVEL 6-10 Last administered on 01/31/17 03:01; Admin Dose 2 MG; Start 01/26/17 at 14:00 Ondansetron HCl 4 mg 4 mg Q6H PRN IV NAUSEA AND/OR VOMITING; Start 01/26/17 at 14:00 Magnesium Sulfate/ Dextrose (Magnesium Sulfate 1 Gm/D5W) 100 ml @ 100 mls/hr PRN PRN IVPB PENDING LAB VALUE Last administered on 01/28/17 03:58; Admin Dose 100 MLS/HR; Start 01/26/17 at 14:00 Dextrose (D50w Syringe) 25 ml Q15M PRN IV Till BS 80 mg/dL or above x2; Start 01/26/17 at 20:30 Dextrose 50 ml 50 ml Q15M PRN IV Till BS 80 mg/dL or above x2 Last administered on 01/31/17 04:36; Admin Dose 50 ML; Start 01/26/17 at 20:30 Potassium Chloride/Lactated Ringer's (KCl/Lr) 1,020 ml @ 75 mls/hr [id number] IV Last administered on 01/30/17 21:06; Admin Dose 75 MLS/HR; Start 01/27/17 at 20 :00 Insulin Human NPH (Humulin N) 9 unit DAILY@20 SC Last administered on 20:59; Admin Dose 9 UNIT; Start 01/28/17 at 20:00 Docusate Sodium (Colace) 100 mg BID PO Last administered on 01/31/17 09:04; Admin Dose 100 MG; Start 01/29/17 at 21:00 MARY MONTEMAYOR Jan 31, 2017 10:28
--- NOTE | 2017-01-31 16:51 | PN ---
Date/Time of Note Date/Time of Note DATE: 01/31/17 TIME: 16:51 Assessment/Plan VTE Prophylaxis VTE Prophylaxis Intervention: other Lines/Catheters IV C[facility]ter Type (from [facility] Urinary Cath still in place: No Assessment/Plan Chief Complaint/Hosp Course Patient with coronary artery disease Status post myocardial infarction Right carotid occlusion COPD Status post coronary artery bypass grafting DEE to LAD Saphenous vein graft to the obtuse marginal branch of the circumflex Patient was extubated this morning Hemodynamically stable Transfer to telemetry Up to the chair and pulmonary toilet Discussed with the referring physicians Problems: Subjective 24 Hr Interval Summary Gastrointestinal: no complaints Genitourinary: no complaints Musculoskeletal: no complaints Skin: no complaints Exam/Review of Systems Vital Signs Vitals Vital Signs Date Time Temp Pulse Resp B/P Pulse Ox O2 Delivery O2 Flow Rate FiO2 01/31/17 16:00 98.4 108 23 113/58 96 Nasal Cannula 2.0 01/27/17 19:46 35 Intake and Output 01/30/17 01/30/17 01/31/17 15:00 23:00 07:00 Intake Total 480 ml 340 ml 320 ml Output Total 590 ml 770 ml 778 ml Balance -110 ml -430 ml -458 ml Exam ENMT: nl external ears & nose, nl lips & teeth, nl nasal mucosa & septum Neck: non-tender, supple Respiratory: clear to auscultation, normal air movement Cardiovascular: nl pulses, regular rate and rhythm Results Result Diagram: 01/31/17 0500 01/31/17 0500 Results 24 hrs Laboratory Tests Test 01/30/17 17:31 01/30/17 20:53 01/31/17 04:31 01/31/17 04:52 Bedside Glucose 74 121 40 *L 171 Test 01/31/17 05:00 01/31/17 05:13 01/31/17 07:46 01/31/17 12:12 White Blood Count 7.4 Red Blood Count 3.75 L Hemoglobin 10.9 L Hematocrit 35.6 L Mean Corpuscular Volume 94.9 Mean Corpuscular Hemoglobin 29.1 Mean Corpuscular Hemoglobin Concent 30.6 L Red Cell Distribution Width 16.4 H Platelet Count 275 Mean Platelet Volume 10.0 Neutrophils % 65.6 Lymphocytes % 9.8 L Monocytes % 10.4 Eosinophils % 13.4 H Basophils % 0.5 Nucleated Red Blood Cells % 0.0 Neutrophils # (Manual) 5 Lymphocytes # 0.7 L Monocytes # 0.8 Eosinophils # 1.0 H Basophils # 0.0 Nucleated Red Blood Cells # 0.0 Sodium Level 142 Potassium Level 3.8 Chloride Level 98 Carbon Dioxide Level 33 H Anion Gap 15 Blood Urea Nitrogen 8 Creatinine 0.46 Glucose Level 154 Calcium Level 8.5 Phosphorus Level 4.0 Magnesium Level 1.8 Bedside Glucose 140 109 252 H Medications Medications Current Medications Acetaminophen (Tylenol Tab) 650 mg Q6H PRN PO PAIN LEVEL 1-3 OR FEVER; Start at 11:30 Acetaminophen (Tylenol Supp) 650 mg Q6H PRN [place] PAIN LEVEL 1-3 OR FEVER; Start 01/06/17 at 11:30 Aspirin (Halfprin) 81 mg DAILY PO Last administered on 01/31/17 09:04; Admin Dose 81 MG; Start 01/07/17 at 09:00 Duloxetine HCl (Cymbalta) 20 mg DAILY PO Last administered on 01/31/17 09:04; Admin Dose 20 MG; Start 01/07/17 at 09:00 Gabapentin (Neurontin) 300 mg TID PO Last administered on 01/31/17 12:51; Admin Dose 300 MG; Start 01/06/17 at 13:00 Metoprolol Tartrate (Lopressor) 12.5 mg BID PO ; Start 01/06/17 at 21:00; Status Future Hold Ticagrelor (Brilinta) 90 mg BID PO Last administered on 01/16/17 08:21; Admin Dose 90 MG; Start 01/06/17 at 21:00; Status Future Hold Furosemide (Lasix) 20 mg DAILY PO ; Start 01/07/17 at 09:00; Status Future Hold Bisacodyl (Dulcolax Supp) 10 mg DAILY PRN [place] CONSTIPATION; Start 01/06/17 at 11 :30 Guaifenesin (Robitussin Liquid Cup) 100 mg Q6H PRN PO COUGH Last administered on 01/08/17 07:54; Admin Dose 100 MG; Start 01/06/17 at 11:30 Levothyroxine Sodium (Synthroid) 112 mcg DAILY@06 PO Last administered on 05:28; Admin Dose 112 MCG; Start 01/07/17 at 06:00 Lisinopril (Zestril) 2.5 mg DAILY PO Last administered on 01/29/17 09:00; Admin Dose 2.5 MG; Start 01/07/17 at 09:00 Senna (Senokot) 2 tab HS PO Last administered on 01/30/17 20:53; Admin Dose 2 TAB; Start 01/06/17 at 21:00 Atorvastatin Calcium (Lipitor) 40 mg HS PO Last administered on 01/30/17 20:54 ; Admin Dose 40 MG; Start 01/14/17 at 21:00 Lidocaine (Xylocaine 4% (Mpf)) 5 ml ONCE PRN HHN BREATHING TREATMENT Last administered on 01/15/17 09:38; Admin Dose 5 ML; Start 01/15/17 at 09:30 Alendronate Sodium (Fosamax) 70 mg We@0630 PO Last administered on 01/21/17 07: 00; Admin Dose 70 MG; Start 01/21/17 at 06:30 Polyethylene Glycol (Miralax) 17 gm DAILY PRN PO constipation; Start 01/20/17 at 18:30 Insulin Glargine (Lantus) 13 unit DAILY@08 SC Last administered on 01/31/17 12 :22; Admin Dose 13 UNIT; Start 01/22/17 at 08:00; Status Future hold Morphine Sulfate (morphine) 1 mg Q2 PRN IV PAIN LEVEL 1-5 Last administered on 01/30/17 10:28; Admin Dose 1 MG; Start 01/26/17 at 14:00 Morphine Sulfate (morphine) 2 mg Q2 PRN IV PAIN LEVEL 6-10 Last administered on 01/31/17 03:01; Admin Dose 2 MG; Start 01/26/17 at 14:00 Ondansetron HCl 4 mg 4 mg Q6H PRN IV NAUSEA AND/OR VOMITING; Start 01/26/17 at 14:00 Magnesium Sulfate/ Dextrose (Magnesium Sulfate 1 Gm/D5W) 100 ml @ 100 mls/hr PRN PRN IVPB PENDING LAB VALUE Last administered on 01/28/17 03:58; Admin Dose 100 MLS/HR; Start 01/26/17 at 14:00 Dextrose (D50w Syringe) 25 ml Q15M PRN IV Till BS 80 mg/dL or above x2; Start 01/26/17 at 20:30 Dextrose 50 ml 50 ml Q15M PRN IV Till BS 80 mg/dL or above x2 Last administered on 01/31/17 04:36; Admin Dose 50 ML; Start 01/26/17 at 20:30 Potassium Chloride/Lactated Ringer's (KCl/Lr) 1,020 ml @ 75 mls/hr [id number] IV Last administered on 01/30/17 21:06; Admin Dose 75 MLS/HR; Start 01/27/17 at 20 :00 Insulin Human NPH (Humulin N) 9 unit DAILY@20 SC Last administered on 20:59; Admin Dose 9 UNIT; Start 01/28/17 at 20:00 Docusate Sodium (Colace) 100 mg BID PO Last administered on 01/31/17 09:04; Admin Dose 100 MG; Start 01/29/17 at 21:00 CHELA ALVARENGA MD Jan 31, 2017 16:51
--- NOTE | 2017-01-31 17:18 | CONS ---
Date/Time of Note Date/Time of Note DATE: 01/31/17 TIME: 17:14 Assessment/Plan Assessment/Plan Additional Assessment/Plan 1. CAD with Triple vessel disease - post Op now/ DEE/SVG - tolerated procedure well - con't to wean. POD # 5 - better overall - EXTUBATED, ambulated in am - MUCH BETTER - con't to improve. STILL BETTER TODAY. Tele OK 2 Hypertension - well Rx, con't med rx - well rx - well Rx. Will follow. 3 CHF - chronic, good fluid status now.- WILL KEEP EUVOLEMIC 4. tach - sinus tach - con't pain Rx Consultation Date/Type/Reason Admit Date/Time Jan 06, 2017 at 10:49 Initial Consult Date 01/16/17 Type of Consultation: Pulmonary/critical care Referring Provider: TANIYA OLMSTEAD 24 HR Interval Summary Free Text/Dictation Sitting in chair ROS: No fever, no chills, no nausea, no vomiting, no diarrhea/constipation No recent weight changes No edema, no palpitations No chest pain, no PND, no SOB No dizziness, blurred vision No thirst, no heat or cold intolerance Exam/Review of Systems Vital Signs Vitals Vital Signs Date Time Temp Pulse Resp B/P Pulse Ox O2 Delivery O2 Flow Rate FiO2 01/31/17 16:00 98.4 108 23 113/58 96 Nasal Cannula 2.0 01/27/17 19:46 35 Intake and Output 01/30/17 01/30/17 01/31/17 15:00 23:00 07:00 Intake Total 480 ml 340 ml 320 ml Output Total 590 ml 770 ml 778 ml Balance -110 ml -430 ml -458 ml Exam General: WN/WD HEENT: Unicetric/atraumatic/ no assymetry NECK: JVD not elevated, no thyromegaly, carotids revealed normal upstrokes Lymph: no lymphadenopathy HEART: regular with no S3, I/ systolic murmur at apex LUNGS: clear ABD: soft, NT, ND, +BS, no organomegaly Neuro: no deficit SKIN: no leisons EXT: no edema Results Result Diagram: 01/31/17 0500 01/31/17 0500 Results 24 hrs Laboratory Tests Test 01/30/17 17:31 01/30/17 20:53 01/31/17 04:31 01/31/17 04:52 Bedside Glucose 74 121 40 *L 171 Test 01/31/17 05:00 01/31/17 05:13 01/31/17 07:46 01/31/17 12:12 White Blood Count 7.4 Red Blood Count 3.75 L Hemoglobin 10.9 L Hematocrit 35.6 L Mean Corpuscular Volume 94.9 Mean Corpuscular Hemoglobin 29.1 Mean Corpuscular Hemoglobin Concent 30.6 L Red Cell Distribution Width 16.4 H Platelet Count 275 Mean Platelet Volume 10.0 Neutrophils % 65.6 Lymphocytes % 9.8 L Monocytes % 10.4 Eosinophils % 13.4 H Basophils % 0.5 Nucleated Red Blood Cells % 0.0 Neutrophils # (Manual) 5 Lymphocytes # 0.7 L Monocytes # 0.8 Eosinophils # 1.0 H Basophils # 0.0 Nucleated Red Blood Cells # 0.0 Sodium Level 142 Potassium Level 3.8 Chloride Level 98 Carbon Dioxide Level 33 H Anion Gap 15 Blood Urea Nitrogen 8 Creatinine 0.46 Glucose Level 154 Calcium Level 8.5 Phosphorus Level 4.0 Magnesium Level 1.8 Bedside Glucose 140 109 252 H Medications Medications Current Medications Acetaminophen (Tylenol Tab) 650 mg Q6H PRN PO PAIN LEVEL 1-3 OR FEVER; Start at 11:30 Acetaminophen (Tylenol Supp) 650 mg Q6H PRN [place] PAIN LEVEL 1-3 OR FEVER; Start 01/06/17 at 11:30 Aspirin (Halfprin) 81 mg DAILY PO Last administered on 01/31/17 09:04; Admin Dose 81 MG; Start 01/07/17 at 09:00 Duloxetine HCl (Cymbalta) 20 mg DAILY PO Last administered on 01/31/17 09:04; Admin Dose 20 MG; Start 01/07/17 at 09:00 Gabapentin (Neurontin) 300 mg TID PO Last administered on 01/31/17 12:51; Admin Dose 300 MG; Start 01/06/17 at 13:00 Metoprolol Tartrate (Lopressor) 12.5 mg BID PO ; Start 01/06/17 at 21:00; Status Future Hold Ticagrelor (Brilinta) 90 mg BID PO Last administered on 01/16/17 08:21; Admin Dose 90 MG; Start 01/06/17 at 21:00; Status Future Hold Furosemide (Lasix) 20 mg DAILY PO ; Start 01/07/17 at 09:00; Status Future Hold Bisacodyl (Dulcolax Supp) 10 mg DAILY PRN [place] CONSTIPATION; Start 01/06/17 at 11 :30 Guaifenesin (Robitussin Liquid Cup) 100 mg Q6H PRN PO COUGH Last administered on 01/08/17 07:54; Admin Dose 100 MG; Start 01/06/17 at 11:30 Levothyroxine Sodium (Synthroid) 112 mcg DAILY@06 PO Last administered on 05:28; Admin Dose 112 MCG; Start 01/07/17 at 06:00 Lisinopril (Zestril) 2.5 mg DAILY PO Last administered on 01/29/17 09:00; Admin Dose 2.5 MG; Start 01/07/17 at 09:00 Senna (Senokot) 2 tab HS PO Last administered on 01/30/17 20:53; Admin Dose 2 TAB; Start 01/06/17 at 21:00 Atorvastatin Calcium (Lipitor) 40 mg HS PO Last administered on 01/30/17 20:54 ; Admin Dose 40 MG; Start 01/14/17 at 21:00 Lidocaine (Xylocaine 4% (Mpf)) 5 ml ONCE PRN HHN BREATHING TREATMENT Last administered on 01/15/17 09:38; Admin Dose 5 ML; Start 01/15/17 at 09:30 Alendronate Sodium (Fosamax) 70 mg We@0630 PO Last administered on 01/21/17 07: 00; Admin Dose 70 MG; Start 01/21/17 at 06:30 Polyethylene Glycol (Miralax) 17 gm DAILY PRN PO constipation; Start 01/20/17 at 18:30 Insulin Glargine (Lantus) 13 unit DAILY@08 SC Last administered on 01/31/17 12 :22; Admin Dose 13 UNIT; Start 01/22/17 at 08:00; Status Future hold Morphine Sulfate (morphine) 1 mg Q2 PRN IV PAIN LEVEL 1-5 Last administered on 01/30/17 10:28; Admin Dose 1 MG; Start 01/26/17 at 14:00 Morphine Sulfate (morphine) 2 mg Q2 PRN IV PAIN LEVEL 6-10 Last administered on 01/31/17 03:01; Admin Dose 2 MG; Start 01/26/17 at 14:00 Ondansetron HCl 4 mg 4 mg Q6H PRN IV NAUSEA AND/OR VOMITING; Start 01/26/17 at 14:00 Magnesium Sulfate/ Dextrose (Magnesium Sulfate 1 Gm/D5W) 100 ml @ 100 mls/hr PRN PRN IVPB PENDING LAB VALUE Last administered on 01/28/17 03:58; Admin Dose 100 MLS/HR; Start 01/26/17 at 14:00 Dextrose (D50w Syringe) 25 ml Q15M PRN IV Till BS 80 mg/dL or above x2; Start 01/26/17 at 20:30 Dextrose 50 ml 50 ml Q15M PRN IV Till BS 80 mg/dL or above x2 Last administered on 01/31/17 04:36; Admin Dose 50 ML; Start 01/26/17 at 20:30 Potassium Chloride/Lactated Ringer's (KCl/Lr) 1,020 ml @ 75 mls/hr [id number] IV Last administered on 01/30/17 21:06; Admin Dose 75 MLS/HR; Start 01/27/17 at 20 :00 Insulin Human NPH (Humulin N) 9 unit DAILY@20 SC Last administered on 20:59; Admin Dose 9 UNIT; Start 01/28/17 at 20:00 Docusate Sodium (Colace) 100 mg BID PO Last administered on 01/31/17 09:04; Admin Dose 100 MG; Start 01/29/17 at 21:00 BASILIO MELENDEZ MD Jan 31, 2017 17:17
[2017-01-31] MEDS: NPH, HUMAN INSULIN ISOPHANE 3ML VIAL SC SCH (20:00)
[2017-01-31] MEDS: ATORVASTATIN 40 MG TAB PO SCH (20:58)
[2017-01-31] MEDS: SENNA TAB PO SCH (20:58)
[2017-02-01] VITALS (21 sets, daily range): BP systolic 78–124; BP diastolic 33–74; PULSE 98–109; RESP 18–33
[2017-02-01] MEDS: ALBUTEROL/IPRATROPIUM (NEB) 3 ML AMP HHN SCH (01:22)
[2017-02-01] MEDS: LEVOTHYROXINE 112 MCG TAB PO SCH (06:12)
--- NOTE | 2017-02-01 07:00 | CONS ---
Date/Time of Note Date/Time of Note DATE: 02/01/17 TIME: 06:58 Assessment/Plan Assessment/Plan Problems: (1) Status post aorto-coronary artery bypass graft Onset Date: ~ 01/26/2017 Status: Acute Comment: Patient is stable post bypass. Cardiothoracic surgery is progressing the patient forward toward rehabilitation. At this time I believe she is stable for transfer to telemetry monitoring and then will sort shortly be able to be transferred to acute rehabilitation unit versus ecf versus home (2) Type 1 diabetes mellitus with diabetic polyneuropathy Status: Chronic Comment: Her diabetic control is adequate on the current regimen. Please note there will absolutely be some variability but she is stabilizing nicely. (3) COPD (chronic obstructive pulmonary disease) with chronic bronchitis Status: Chronic Comment: Stable and well compensated with the regimen created by her pulmonary consultants (4) Acquired hypothyroidism Status: Chronic Comment: Stable on replacement therapy Consultation Date/Type/Reason Admit Date/Time Jan 06, 2017 at 10:49 Initial Consult Date 01/16/17 Type of Consultation: Endocrinology Reason for Consultation Diabetes Referring Provider: TANIYA OLMSTEAD 24 HR Interval Summary Free Text/Dictation Patient watching television Constitutional: no complaints (No fevers chills or sweats) Detailed Summary Respiratory: no complaints Cardiovascular: no complaints Endocrine: no complaints (No hypoglycemia no polys) Exam/Review of Systems Vital Signs Vitals Vital Signs Date Time Temp Pulse Resp B/P Pulse Ox O2 Delivery O2 Flow Rate FiO2 02/01/17 06:00 104 23 111/49 95 Nasal Cannula 2.0 02/01/17 04:00 99.2 02/01/17 02:06 27 Intake and Output 01/31/17 01/31/17 02/01/17 15:00 23:00 07:00 Intake Total 480 ml 840 ml 360 ml Output Total 400 ml 220 ml 2050 ml Balance 80 ml 620 ml -1690 ml Exam Constitutional: alert, oriented Respiratory: clear to auscultation, normal air movement Cardiovascular: nl pulses, regular rate and rhythm Results Result Diagram: 01/31/17 0500 01/31/17 0500 Results 24 hrs Laboratory Tests Test 01/31/17 07:46 01/31/17 12:12 01/31/17 18:11 01/31/17 20:56 Bedside Glucose 109 252 H 157 83 Test 02/01/17 04:05 Bedside Glucose 186 Medications Medications Current Medications Acetaminophen (Tylenol Tab) 650 mg Q6H PRN PO PAIN LEVEL 1-3 OR FEVER; Start at 11:30 Acetaminophen (Tylenol Supp) 650 mg Q6H PRN [place] PAIN LEVEL 1-3 OR FEVER; Start 01/06/17 at 11:30 Aspirin (Halfprin) 81 mg DAILY PO Last administered on 01/31/17 09:04; Admin Dose 81 MG; Start 01/07/17 at 09:00 Duloxetine HCl (Cymbalta) 20 mg DAILY PO Last administered on 01/31/17 09:04; Admin Dose 20 MG; Start 01/07/17 at 09:00 Gabapentin (Neurontin) 300 mg TID PO Last administered on 01/31/17 20:58; Admin Dose 300 MG; Start 01/06/17 at 13:00 Metoprolol Tartrate (Lopressor) 12.5 mg BID PO ; Start 01/06/17 at 21:00; Status Future Hold Ticagrelor (Brilinta) 90 mg BID PO Last administered on 01/16/17 08:21; Admin Dose 90 MG; Start 01/06/17 at 21:00; Status Future Hold Furosemide (Lasix) 20 mg DAILY PO ; Start 01/07/17 at 09:00; Status Future Hold Bisacodyl (Dulcolax Supp) 10 mg DAILY PRN [place] CONSTIPATION; Start 01/06/17 at 11 :30 Guaifenesin (Robitussin Liquid Cup) 100 mg Q6H PRN PO COUGH Last administered on 01/08/17 07:54; Admin Dose 100 MG; Start 01/06/17 at 11:30 Levothyroxine Sodium (Synthroid) 112 mcg DAILY@06 PO Last administered on 06:12; Admin Dose 112 MCG; Start 01/07/17 at 06:00 Lisinopril (Zestril) 2.5 mg DAILY PO Last administered on 01/29/17 09:00; Admin Dose 2.5 MG; Start 01/07/17 at 09:00 Senna (Senokot) 2 tab HS PO Last administered on 01/31/17 20:58; Admin Dose 2 TAB; Start 01/06/17 at 21:00 Atorvastatin Calcium (Lipitor) 40 mg HS PO Last administered on 01/31/17 20:58 ; Admin Dose 40 MG; Start 01/14/17 at 21:00 Alendronate Sodium (Fosamax) 70 mg We@0630 PO Last administered on 01/21/17 07: 00; Admin Dose 70 MG; Start 01/21/17 at 06:30 Polyethylene Glycol (Miralax) 17 gm DAILY PRN PO constipation; Start 01/20/17 at 18:30 Insulin Glargine (Lantus) 13 unit DAILY@08 SC Last administered on 01/31/17 12 :22; Admin Dose 13 UNIT; Start 01/22/17 at 08:00; Status Future hold Morphine Sulfate (morphine) 1 mg Q2 PRN IV PAIN LEVEL 1-5 Last administered on 01/30/17 10:28; Admin Dose 1 MG; Start 01/26/17 at 14:00 Morphine Sulfate (morphine) 2 mg Q2 PRN IV PAIN LEVEL 6-10 Last administered on 01/31/17 20:59; Admin Dose 2 MG; Start 01/26/17 at 14:00 Ondansetron HCl (Zofran Inj) 4 mg Q6H PRN IV NAUSEA AND/OR VOMITING; Start at 14:00 Dextrose (D50w Syringe) 25 ml Q15M PRN IV Till BS 80 mg/dL or above x2; Start 01/26/17 at 20:30 Dextrose (D50w Syringe) 50 ml Q15M PRN IV Till BS 80 mg/dL or above x2 Last administered on 01/31/17 04:36; Admin Dose 50 ML; Start 01/26/17 at 20:30 Insulin Human NPH (Humulin N) 9 unit DAILY@20 SC Last administered on 20:59; Admin Dose 9 UNIT; Start 01/28/17 at 20:00 Docusate Sodium (Colace) 100 mg BID PO Last administered on 01/31/17 20:58; Admin Dose 100 MG; Start 01/29/17 at 21:00 CODY HENAO MD Feb 01, 2017 07:00
[2017-02-01 07:32] LABS: CREATININE 0.46 mg/dl (0.44-1.00); POTASSIUM 4.8 mmol/L (3.5-5.1)
[2017-02-01 07:36] LABS: BASOPHIL # 0.1 10^3/ul (0.0-0.1); BASOPHILS % 1.1 % (0.0-2.0); EOSINOPHILS # 1.5 10^3/ul (0.0-0.5); EOSINOPHILS % 17.4 % (0.0-7.0); HEMATOCRIT 40.6 % (37.0-47.0); HEMOGLOBIN 12.9 g/dl (12.0-16.0); LYMPHOCYTES # 1.3 10^3/ul (0.8-2.9); LYMPHOCYTES % 15.6 % (15.0-51.0); MEAN CORPUSCULAR HEMOGLOBIN 30.2 pg (29.0-33.0); MEAN CORPUSCULAR HGB CONC 31.8 g/dl (32.0-37.0); MEAN CORPUSCULAR VOLUME 95.1 fl (82.0-101.0); MEAN PLATELET VOLUME 9.6 fl (7.4-10.4); MONOCYTE # 0.8 10^3/ul (0.3-0.9); MONOCYTES % 9.1 % (0.0-11.0); NEUTROPHILS % 56.4 % (39.0-77.0); PLATELET COUNT 292 10^3/UL (140-415); RED BLOOD COUNT 4.27 10^6/ul (4.20-5.40); RED CELL DISTRIBUTION WIDTH 15.8 % (11.5-14.5); WHITE BLOOD COUNT 8.4 10^3/ul (4.8-10.8)
[2017-02-01] MEDS: INSULIN GLARGINE [LANtus] 3 ML PEN SC SCH (08:29)
[2017-02-01] MEDS: INSULIN ASPART [NOVOLOG] 3 ML PEN SC SCH ×7 (08:30→20:16)
[2017-02-01] MEDS: LISINOPRIL 5 MG TAB PO SCH (09:00)
--- NOTE | 2017-02-01 09:08 | PN ---
Date/Time of Note Date/Time of Note DATE: 02/01/17 TIME: 09:03 Assessment/Plan VTE Prophylaxis VTE Prophylaxis Intervention: SCD's Lines/Catheters IV Catheter Type (from Nrsg): Peripheral IV Urinary Cath still in place: Yes Reason Cath still needed: urinary retention Assessment/Plan Chief Complaint/Hosp Course Assessment/Plan: 56 yo F with poorly controlled DM2 admitted for NSTEMI in setting DKA. Found to have multivessel CAD, s/p CABG POD # 6. Also with incidental finding of L sided subglottic lesion, likely 2/2 prolonged intubation and not in need of additional w/u per ENT 1. multivessel CAD, recent NSTEMI, ICM with EF IMPROVED from <25% to 40%. S/p CABG POD # 6 -Follow-up postop recommendations from CTS team, continue cardiac rehab -cont current cardiac meds, likely will be transferred to telemetry floor later today -Continue physical therapy and occupational therapy 2. L subglottic lesion:ENT states 2/2 prolonged intubation and does not require further w/u-monitor for now 3. Severe obstructive and restrictive pulmonary disease-improved overall -Continue bronchodilators, follow-up pulmonary recommendations 4. DM-1 (likely) with wide BG fluctuations earlier this admission, improved when patient was on insulin drip earlier. Now off insulin drip, and on subcutaneous insulin Lantus and NPH. -Continue subcutaneous insulin, follow-up Endo consult recommendations for aid with insulin management 5. Hypothyroidism. -Continue Synthroid. 6. Chronic anemia. cpm DVT prophylaxis: SCD's Critical care time spent today = 40 min. Problems: Subjective 24 Hr Interval Summary Free Text/Dictation No acute events overnight. Less chest pain, less shortness of breath complaints. Exam/Review of Systems Vital Signs Vitals Vital Signs Date Time Temp Pulse Resp B/P Pulse Ox O2 Delivery O2 Flow Rate FiO2 02/01/17 08:00 98 02/01/17 06:00 23 111/49 95 Nasal Cannula 2.0 02/01/17 04:00 99.2 02/01/17 02:06 27 Intake and Output 01/31/17 01/31/17 02/01/17 15:00 23:00 07:00 Intake Total 480 ml 840 ml 360 ml Output Total 400 ml 220 ml 2050 ml Balance 80 ml 620 ml -1690 ml Exam Alert, sitting in chair, no acute distress Pupils equal round reactive to light, extraocular muscles intact no mrg lungs clear abd soft no LE edema B/L No focal deficits Results Result Diagram: 02/01/17 0700 02/01/17 0700 Results 24 hrs Laboratory Tests Test 01/31/17 12:12 01/31/17 18:11 01/31/17 20:56 02/01/17 04:05 Bedside Glucose 252 H 157 83 186 Test 02/01/17 07:00 02/01/17 08:11 White Blood Count 8.4 Red Blood Count 4.27 Hemoglobin 12.9 Hematocrit 40.6 Mean Corpuscular Volume 95.1 Mean Corpuscular Hemoglobin 30.2 Mean Corpuscular Hemoglobin Concent 31.8 L Red Cell Distribution Width 15.8 H Platelet Count 292 Mean Platelet Volume 9.6 Neutrophils % 56.4 Lymphocytes % 15.6 Monocytes % 9.1 Eosinophils % 17.4 H Basophils % 1.1 Nucleated Red Blood Cells % 0.0 Neutrophils # (Manual) 5 Lymphocytes # 1.3 Monocytes # 0.8 Eosinophils # 1.5 H Basophils # 0.1 Nucleated Red Blood Cells # 0.0 Sodium Level 139 Potassium Level 4.8 Chloride Level 96 L Carbon Dioxide Level 30 Anion Gap 18 H Blood Urea Nitrogen 7 Creatinine 0.46 Glucose Level 231 H Calcium Level 9.0 Bedside Glucose 236 H Medications Medications Current Medications Acetaminophen (Tylenol Tab) 650 mg Q6H PRN PO PAIN LEVEL 1-3 OR FEVER; Start at 11:30 Acetaminophen (Tylenol Supp) 650 mg Q6H PRN [place] PAIN LEVEL 1-3 OR FEVER; Start 01/06/17 at 11:30 Aspirin (Halfprin) 81 mg DAILY PO Last administered on 01/31/17 09:04; Admin Dose 81 MG; Start 01/07/17 at 09:00 Duloxetine HCl (Cymbalta) 20 mg DAILY PO Last administered on 01/31/17 09:04; Admin Dose 20 MG; Start 01/07/17 at 09:00 Gabapentin (Neurontin) 300 mg TID PO Last administered on 01/31/17 20:58; Admin Dose 300 MG; Start 01/06/17 at 13:00 Metoprolol Tartrate (Lopressor) 12.5 mg BID PO ; Start 01/06/17 at 21:00; Status Future Hold Ticagrelor (Brilinta) 90 mg BID PO Last administered on 01/16/17 08:21; Admin Dose 90 MG; Start 01/06/17 at 21:00; Status Future Hold Furosemide (Lasix) 20 mg DAILY PO ; Start 01/07/17 at 09:00; Status Future Hold Bisacodyl (Dulcolax Supp) 10 mg DAILY PRN [place] CONSTIPATION; Start 01/06/17 at 11 :30 Guaifenesin (Robitussin Liquid Cup) 100 mg Q6H PRN PO COUGH Last administered on 01/08/17 07:54; Admin Dose 100 MG; Start 01/06/17 at 11:30 Levothyroxine Sodium (Synthroid) 112 mcg DAILY@06 PO Last administered on 06:12; Admin Dose 112 MCG; Start 01/07/17 at 06:00 Lisinopril (Zestril) 2.5 mg DAILY PO Last administered on 01/29/17 09:00; Admin Dose 2.5 MG; Start 01/07/17 at 09:00 Senna (Senokot) 2 tab HS PO Last administered on 01/31/17 20:58; Admin Dose 2 TAB; Start 01/06/17 at 21:00 Atorvastatin Calcium (Lipitor) 40 mg HS PO Last administered on 01/31/17 20:58 ; Admin Dose 40 MG; Start 01/14/17 at 21:00 Alendronate Sodium (Fosamax) 70 mg We@0630 PO Last administered on 01/21/17 07: 00; Admin Dose 70 MG; Start 01/21/17 at 06:30 Polyethylene Glycol (Miralax) 17 gm DAILY PRN PO constipation; Start 01/20/17 at 18:30 Insulin Glargine (Lantus) 13 unit DAILY@08 SC Last administered on 02/01/17 08 :29; Admin Dose 13 UNIT; Start 01/22/17 at 08:00; Status Future hold Morphine Sulfate (morphine) 1 mg Q2 PRN IV PAIN LEVEL 1-5 Last administered on 01/30/17 10:28; Admin Dose 1 MG; Start 01/26/17 at 14:00 Morphine Sulfate (morphine) 2 mg Q2 PRN IV PAIN LEVEL 6-10 Last administered on 01/31/17 20:59; Admin Dose 2 MG; Start 01/26/17 at 14:00 Ondansetron HCl (Zofran Inj) 4 mg Q6H PRN IV NAUSEA AND/OR VOMITING; Start at 14:00 Dextrose (D50w Syringe) 25 ml Q15M PRN IV Till BS 80 mg/dL or above x2; Start 01/26/17 at 20:30 Dextrose (D50w Syringe) 50 ml Q15M PRN IV Till BS 80 mg/dL or above x2 Last administered on 01/31/17 04:36; Admin Dose 50 ML; Start 01/26/17 at 20:30 Insulin Human NPH (Humulin N) 9 unit DAILY@20 SC Last administered on 20:59; Admin Dose 9 UNIT; Start 01/28/17 at 20:00 Docusate Sodium (Colace) 100 mg BID PO Last administered on 01/31/17 20:58; Admin Dose 100 MG; Start 01/29/17 at 21:00 Acetaminophen/ Hydrocodone Bitart ([place] (5/325)) 1 tab Q6H PRN PO PAIN; Start 02/01/17 at 09:00 TANIYA OLMSTEAD Feb 01, 2017 09:08
--- NOTE | 2017-02-01 09:31 | CONS ---
Date/Time of Note Date/Time of Note DATE: 02/01/17 TIME: 09:29 Assessment/Plan Assessment/Plan Additional Assessment/Plan Assessment and recommendations; 1. Patient admitted with NM status post CABG surgery. 2. 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 Patient may need workup later on by ENT surgeon. 3. Small left pleural effusion. 4. COPD. Continue current treatment. Patient can be transferred to telemetry unit. Will obtain follow-up chest x-ray in 24 hours. Consultation Date/Type/Reason Admit Date/Time Jan 06, 2017 at 10:49 Type of Consultation: Pulmonary Referring Provider: TANIYA OLMSTEAD 24 HR Interval Summary Free Text/Dictation Patient condition stable. Denies any shortness of breath, chest pain, coughing wheezing or sputum production. Currently sitting in a chair by bedside. General exam; middle-aged woman, awake alert currently in no distress. Exam/Review of Systems Vital Signs Vitals Vital Signs Date Time Temp Pulse Resp B/P Pulse Ox O2 Delivery O2 Flow Rate FiO2 02/01/17 09:00 105 31 106/60 98 Nasal Cannula 2.0 02/01/17 04:00 99.2 02/01/17 02:06 27 Intake and Output 01/31/17 01/31/17 02/01/17 15:00 23:00 07:00 Intake Total 480 ml 840 ml 360 ml Output Total 400 ml 220 ml 2050 ml Balance 80 ml 620 ml -1690 ml Exam HEENT exam; supple neck, no JVD. No lymphadenopathy. Midline trachea. No thyromegaly. Pharynx is clear. Patient is edentulous and wears dentures. Chest exam; clear to auscultation. S1-S2 audible, no murmurs. Regular rhythm. There is a well-healing sternal scar. Abdomen exam; soft, no organomegaly. Bowel sounds audible. Extremity exam; no peripheral edema. [employer]IST[employer] exam; no focal deficit. Results Result Diagram: 02/01/17 0700 02/01/17 0700 Results 24 hrs Laboratory Tests Test 01/31/17 12:12 01/31/17 18:11 01/31/17 20:56 02/01/17 04:05 Bedside Glucose 252 H 157 83 186 Test 02/01/17 07:00 02/01/17 08:11 White Blood Count 8.4 Red Blood Count 4.27 Hemoglobin 12.9 Hematocrit 40.6 Mean Corpuscular Volume 95.1 Mean Corpuscular Hemoglobin 30.2 Mean Corpuscular Hemoglobin Concent 31.8 L Red Cell Distribution Width 15.8 H Platelet Count 292 Mean Platelet Volume 9.6 Neutrophils % 56.4 Lymphocytes % 15.6 Monocytes % 9.1 Eosinophils % 17.4 H Basophils % 1.1 Nucleated Red Blood Cells % 0.0 Neutrophils # (Manual) 5 Lymphocytes # 1.3 Monocytes # 0.8 Eosinophils # 1.5 H Basophils # 0.1 Nucleated Red Blood Cells # 0.0 Sodium Level 139 Potassium Level 4.8 Chloride Level 96 L Carbon Dioxide Level 30 Anion Gap 18 H Blood Urea Nitrogen 7 Creatinine 0.46 Glucose Level 231 H Calcium Level 9.0 Bedside Glucose 236 H Medications Medications Current Medications Acetaminophen (Tylenol Tab) 650 mg Q6H PRN PO PAIN LEVEL 1-3 OR FEVER; Start at 11:30 Acetaminophen (Tylenol Supp) 650 mg Q6H PRN [place] PAIN LEVEL 1-3 OR FEVER; Start 01/06/17 at 11:30 Aspirin (Halfprin) 81 mg DAILY PO Last administered on 01/31/17 09:04; Admin Dose 81 MG; Start 01/07/17 at 09:00 Duloxetine HCl (Cymbalta) 20 mg DAILY PO Last administered on 01/31/17 09:04; Admin Dose 20 MG; Start 01/07/17 at 09:00 Gabapentin (Neurontin) 300 mg TID PO Last administered on 01/31/17 20:58; Admin Dose 300 MG; Start 01/06/17 at 13:00 Metoprolol Tartrate (Lopressor) 12.5 mg BID PO ; Start 01/06/17 at 21:00; Status Future Hold Ticagrelor (Brilinta) 90 mg BID PO Last administered on 01/16/17 08:21; Admin Dose 90 MG; Start 01/06/17 at 21:00; Status Future Hold Furosemide (Lasix) 20 mg DAILY PO ; Start 01/07/17 at 09:00; Status Future Hold Bisacodyl (Dulcolax Supp) 10 mg DAILY PRN [place] CONSTIPATION; Start 01/06/17 at 11 :30 Guaifenesin (Robitussin Liquid Cup) 100 mg Q6H PRN PO COUGH Last administered on 01/08/17 07:54; Admin Dose 100 MG; Start 01/06/17 at 11:30 Levothyroxine Sodium (Synthroid) 112 mcg DAILY@06 PO Last administered on 06:12; Admin Dose 112 MCG; Start 01/07/17 at 06:00 Lisinopril (Zestril) 2.5 mg DAILY PO Last administered on 01/29/17 09:00; Admin Dose 2.5 MG; Start 01/07/17 at 09:00 Senna (Senokot) 2 tab HS PO Last administered on 01/31/17 20:58; Admin Dose 2 TAB; Start 01/06/17 at 21:00 Atorvastatin Calcium (Lipitor) 40 mg HS PO Last administered on 01/31/17 20:58 ; Admin Dose 40 MG; Start 01/14/17 at 21:00 Alendronate Sodium (Fosamax) 70 mg We@0630 PO Last administered on 01/21/17 07: 00; Admin Dose 70 MG; Start 01/21/17 at 06:30 Polyethylene Glycol (Miralax) 17 gm DAILY PRN PO constipation; Start 01/20/17 at 18:30 Insulin Glargine (Lantus) 13 unit DAILY@08 SC Last administered on 02/01/17 08 :29; Admin Dose 13 UNIT; Start 01/22/17 at 08:00; Status Future hold Morphine Sulfate (morphine) 1 mg Q2 PRN [place] PAIN LEVEL 1-5 Last administered on 01/30/17 10:28; Admin Dose 1 MG; Start 01/26/17 at 14:00 Morphine Sulfate (morphine) 2 mg Q2 PRN IV PAIN LEVEL 6-10 Last administered on 01/31/17 20:59; Admin Dose 2 MG; Start 01/26/17 at 14:00 Ondansetron HCl (Zofran Inj) 4 mg Q6H PRN IV NAUSEA AND/OR VOMITING; Start at 14:00 Dextrose (D50w Syringe) 25 ml Q15M PRN IV Till BS 80 mg/dL or above x2; Start 01/26/17 at 20:30 Dextrose (D50w Syringe) 50 ml Q15M PRN IV Till BS 80 mg/dL or above x2 Last administered on 01/31/17 04:36; Admin Dose 50 ML; Start 01/26/17 at 20:30 Insulin Human NPH (Humulin N) 9 unit DAILY@20 SC Last administered on 20:59; Admin Dose 9 UNIT; Start 01/28/17 at 20:00 Docusate Sodium (Colace) 100 mg BID PO Last administered on 01/31/17 20:58; Admin Dose 100 MG; Start 01/29/17 at 21:00 Acetaminophen/ Hydrocodone Bitart ([place] (5/325)) 1 tab Q6H PRN PO PAIN; Start 02/01/17 at 09:00 MARY MONTEMAYOR Feb 01, 2017 09:30
[2017-02-01] MEDS: DULOXETINE 20 MG CAP DR PO SCH (09:35)
[2017-02-01] MEDS: GABAPENTIN 300 MG CAP PO SCH ×3 (09:35→20:16)
[2017-02-01] MEDS: HYDROCODONE/APAP (5/325) TAB PO PRN ×2 (09:35→19:01)
[2017-02-01] MEDS: ASPIRIN (EC) 81 MG TAB PO SCH (09:35)
[2017-02-01] MEDS: DOCUSATE SODIUM 100 MG CAP PO SCH ×2 (09:35→20:16)
--- NOTE | 2017-02-01 10:42 | RADRPT ---
PROCEDURE: XR Chest. CLINICAL INDICATION: Follow-up TECHNIQUE: AP Portable chest. COMPARISON: 01/31/2017 FINDINGS: The right IJ sheath has been removed. Sternotomy wires and mediastinal clips are visualized. The cardiomediastinal silhouette is unchanged. Bilateral reticular densities, pleural effusions and left basilar opacity are unchanged. The left hemidiaphragm is obscured. No pneumothorax is seen. T he osseous structures are intact. IMPRESSION: Interval removal of the right IJ sheath. Unchanged bilateral pleural effusions and basilar atelectas is, greater on the left. Physician Татьяна Date Time Electronically viewed and signed by Physician Татьяна on 02/01/2017 10:42 CS/
--- NOTE | 2017-02-01 15:23 | CONS ---
Date/Time of Note Date/Time of Note DATE: 02/01/17 TIME: 15:22 Assessment/Plan Assessment/Plan Additional Assessment/Plan 1. CAD with Triple vessel disease - post Op now/ DEE/SVG - tolerated procedure well - con't to wean. POD # 5 - better overall - EXTUBATED, ambulated in am - MUCH BETTER - con't to improve. STILL BETTER TODAY. Tele OK. Awaiting bed. 2 Hypertension - well Rx, con't med rx - well rx - well Rx. Will follow. 3 CHF - chronic, good fluid status now.- WILL KEEP EUVOLEMIC 4. tach - sinus tach - con't pain Rx Consultation Date/Type/Reason Admit Date/Time Jan 06, 2017 at 10:49 Initial Consult Date 01/16/17 Type of Consultation: Pulmonary Referring Provider: TANIYA OLMSTEAD 24 HR Interval Summary Free Text/Dictation ROS: No fever, no chills, no nausea, no vomiting, no diarrhea/constipation No recent weight changes No edema, no palpitations No chest pain, no PND, no SOB No dizziness, blurred vision No thirst, no heat or cold intolerance Exam/Review of Systems Vital Signs Vitals Vital Signs Date Time Temp Pulse Resp B/P Pulse Ox O2 Delivery O2 Flow Rate FiO2 02/01/17 14:01 106 24 119/54 96 Nasal Cannula 2.0 02/01/17 04:00 99.2 02/01/17 02:06 27 Intake and Output 01/31/17 01/31/17 02/01/17 15:00 23:00 07:00 Intake Total 480 ml 840 ml 360 ml Output Total 400 ml 220 ml 2150 ml Balance 80 ml 620 ml -1790 ml Exam General: WN/WD HEENT: Unicetric/atraumatic/ no assymetry NECK: JVD not elevated, no thyromegaly, carotids revealed normal upstrokes Lymph: no lymphadenopathy HEART: regular with no S3, I/ systolic murmur at apex LUNGS: clear ABD: soft, NT, ND, +BS, no organomegaly Neuro: no deficit SKIN: no leisons EXT: no edema Results Result Diagram: 02/01/17 0700 02/01/17 0700 Results 24 hrs Laboratory Tests Test 01/31/17 18:11 01/31/17 20:56 02/01/17 04:05 02/01/17 07:00 Bedside Glucose 157 83 186 White Blood Count 8.4 Red Blood Count 4.27 Hemoglobin 12.9 Hematocrit 40.6 Mean Corpuscular Volume 95.1 Mean Corpuscular Hemoglobin 30.2 Mean Corpuscular Hemoglobin Concent 31.8 L Red Cell Distribution Width 15.8 H Platelet Count 292 Mean Platelet Volume 9.6 Neutrophils % 56.4 Lymphocytes % 15.6 Monocytes % 9.1 Eosinophils % 17.4 H Basophils % 1.1 Nucleated Red Blood Cells % 0.0 Neutrophils # (Manual) 5 Lymphocytes # 1.3 Monocytes # 0.8 Eosinophils # 1.5 H Basophils # 0.1 Nucleated Red Blood Cells # 0.0 Sodium Level 139 Potassium Level 4.8 Chloride Level 96 L Carbon Dioxide Level 30 Anion Gap 18 H Blood Urea Nitrogen 7 Creatinine 0.46 Glucose Level 231 H Calcium Level 9.0 Test 02/01/17 08:11 02/01/17 12:07 Bedside Glucose 236 H 209 Medications Medications Current Medications Acetaminophen (Tylenol Tab) 650 mg Q6H PRN PO PAIN LEVEL 1-3 OR FEVER; Start at 11:30 Acetaminophen (Tylenol Supp) 650 mg Q6H PRN [place] PAIN LEVEL 1-3 OR FEVER; Start 01/06/17 at 11:30 Aspirin (Halfprin) 81 mg DAILY PO Last administered on 02/01/17 09:35; Admin Dose 81 MG; Start 01/07/17 at 09:00 Duloxetine HCl (Cymbalta) 20 mg DAILY PO Last administered on 02/01/17 09:35; Admin Dose 20 MG; Start 01/07/17 at 09:00 Gabapentin (Neurontin) 300 mg TID PO Last administered on 02/01/17 13:23; Admin Dose 300 MG; Start 01/06/17 at 13:00 Metoprolol Tartrate (Lopressor) 12.5 mg BID PO ; Start 01/06/17 at 21:00; Status Future Hold Ticagrelor (Brilinta) 90 mg BID PO Last administered on 01/16/17 08:21; Admin Dose 90 MG; Start 01/06/17 at 21:00; Status Future Hold Furosemide (Lasix) 20 mg DAILY PO ; Start 01/07/17 at 09:00; Status Future Hold Bisacodyl (Dulcolax Supp) 10 mg DAILY PRN [place] CONSTIPATION; Start 01/06/17 at 11 :30 Guaifenesin (Robitussin Liquid Cup) 100 mg Q6H PRN PO COUGH Last administered on 01/08/17 07:54; Admin Dose 100 MG; Start 01/06/17 at 11:30 Levothyroxine Sodium (Synthroid) 112 mcg DAILY@06 PO Last administered on 06:12; Admin Dose 112 MCG; Start 01/07/17 at 06:00 Lisinopril (Zestril) 2.5 mg DAILY PO Last administered on 01/29/17 09:00; Admin Dose 2.5 MG; Start 01/07/17 at 09:00 Senna (Senokot) 2 tab HS PO Last administered on 01/31/17 20:58; Admin Dose 2 TAB; Start 01/06/17 at 21:00 Atorvastatin Calcium (Lipitor) 40 mg HS PO Last administered on 01/31/17 20:58 ; Admin Dose 40 MG; Start 01/14/17 at 21:00 Alendronate Sodium (Fosamax) 70 mg We@0630 PO Last administered on 01/21/17 07: 00; Admin Dose 70 MG; Start 01/21/17 at 06:30 Polyethylene Glycol (Miralax) 17 gm DAILY PRN PO constipation; Start 01/20/17 at 18:30 Insulin Glargine (Lantus) 13 unit DAILY@08 [place] Last administered on 02/01/17 08 :29; Admin Dose 13 UNIT; Start 01/22/17 at 08:00; Status Future hold Morphine Sulfate (morphine) 1 mg Q2 PRN IV PAIN LEVEL 1-5 Last administered on 01/30/17 10:28; Admin Dose 1 MG; Start 01/26/17 at 14:00 Morphine Sulfate (morphine) 2 mg Q2 PRN IV PAIN LEVEL 6-10 Last administered on 01/31/17 20:59; Admin Dose 2 MG; Start 01/26/17 at 14:00 Ondansetron HCl (Zofran Inj) 4 mg Q6H PRN IV NAUSEA AND/OR VOMITING; Start at 14:00 Dextrose (D50w Syringe) 25 ml Q15M PRN IV Till BS 80 mg/dL or above x2; Start 01/26/17 at 20:30 Dextrose (D50w Syringe) 50 ml Q15M PRN IV Till BS 80 mg/dL or above x2 Last administered on 01/31/17 04:36; Admin Dose 50 ML; Start 01/26/17 at 20:30 Insulin Human NPH (Humulin N) 9 unit DAILY@20 SC Last administered on 20:59; Admin Dose 9 UNIT; Start 01/28/17 at 20:00 Docusate Sodium (Colace) 100 mg BID PO Last administered on 02/01/17 09:35; Admin Dose 100 MG; Start 01/29/17 at 21:00 Acetaminophen/ Hydrocodone Bitart ([place] (5/325)) 1 tab Q6H PRN PO PAIN Last administered on 02/01/17 09:35; Admin Dose 1 TAB; Start 02/01/17 at 09:00 BASILIO MELENDEZ MD Feb 01, 2017 15:23
--- NOTE | 2017-02-01 17:25 | PN ---
Date/Time of Note Date/Time of Note DATE: 02/01/17 TIME: 17:24 Assessment/Plan Lines/Catheters IV Catheter Type (from Nrsg): Saline Lock [place] in Place (from Nrsg): No Assessment/Plan Chief Complaint/Hosp Course Patient with coronary artery disease Status post myocardial infarction Right carotid occlusion COPD Status post coronary artery bypass grafting DEE to LAD Saphenous vein graft to the obtuse marginal branch of the circumflex Patient was extubated this morning Hemodynamically stable Transfer to telemetry Up to the chair and pulmonary toilet DC planning Discussed with the referring physicians Problems: Subjective 24 Hr Interval Summary Constitutional: improved Pain Control: mild Exam/Review of Systems Vital Signs Vitals Vital Signs Date Time Temp Pulse Resp B/P Pulse Ox O2 Delivery O2 Flow Rate FiO2 02/01/17 16:00 99.1 102 24 109/53 97 Nasal Cannula 2.0 02/01/17 02:06 27 Intake and Output 01/31/17 01/31/17 02/01/17 15:00 23:00 07:00 Intake Total 480 ml 840 ml 360 ml Output Total 400 ml 220 ml 2150 ml Balance 80 ml 620 ml -1790 ml Exam ENMT: mucosa pink and moist, nl external ears & nose, nl lips & teeth, nl nasal mucosa & septum Neck: non-tender, supple Respiratory: clear to auscultation, normal air movement Cardiovascular: nl pulses, regular rate and rhythm Gastrointestinal: nl liver, spleen, non-tender, soft Results Result Diagram: 02/01/17 0700 02/01/17 0700 CHELA ALVARENGA MD Feb 01, 2017 17:25
[2017-02-01] MEDS: SENNA TAB PO SCH (20:16)
[2017-02-01] MEDS: ATORVASTATIN 40 MG TAB PO SCH (20:16)
[2017-02-01] MEDS: NPH, HUMAN INSULIN ISOPHANE 3ML VIAL SC SCH (20:20)
[2017-02-01] MEDS: morphine 2 MG INJ IV PRN (22:25)
[2017-02-02] VITALS (13 sets, daily range): BP systolic 102–118; BP diastolic 55–59; PULSE 96–136; RESP 16–19
[2017-02-02] MEDS: LEVOTHYROXINE 112 MCG TAB PO SCH (06:35)
[2017-02-02 07:51] LABS: BASOPHIL # 0.1 10^3/ul (0.0-0.1); BASOPHILS % 0.9 % (0.0-2.0); EOSINOPHILS # 1.7 10^3/ul (0.0-0.5); EOSINOPHILS % 16.4 % (0.0-7.0); HEMATOCRIT 38.1 % (37.0-47.0); HEMOGLOBIN 11.9 g/dl (12.0-16.0); LYMPHOCYTES # 1.8 10^3/ul (0.8-2.9); LYMPHOCYTES % 17.7 % (15.0-51.0); MEAN CORPUSCULAR HEMOGLOBIN 29.5 pg (29.0-33.0); MEAN CORPUSCULAR HGB CONC 31.2 g/dl (32.0-37.0); MEAN CORPUSCULAR VOLUME 94.3 fl (82.0-101.0); MEAN PLATELET VOLUME 9.5 fl (7.4-10.4); MONOCYTE # 0.9 10^3/ul (0.3-0.9); MONOCYTES % 8.7 % (0.0-11.0); NEUTROPHILS % 55.9 % (39.0-77.0); PLATELET COUNT 383 10^3/UL (140-415); RED BLOOD COUNT 4.04 10^6/ul (4.20-5.40); RED CELL DISTRIBUTION WIDTH 15.6 % (11.5-14.5); WHITE BLOOD COUNT 10.2 10^3/ul (4.8-10.8)
[2017-02-02] MEDS: INSULIN ASPART [NOVOLOG] 3 ML PEN SC SCH ×7 (07:55→21:00)
[2017-02-02 08:09] LABS: MAGNESIUM 1.8 mg/dl (1.7-2.5); PHOSPHORUS 4.1 mg/dl (2.5-4.9)
[2017-02-02 08:10] LABS: CREATININE 0.46 mg/dl (0.44-1.00); POTASSIUM 4.3 mmol/L (3.5-5.1)
[2017-02-02] MEDS: ASPIRIN (EC) 81 MG TAB PO SCH (08:58)
[2017-02-02] MEDS: DULOXETINE 20 MG CAP DR PO SCH (08:58)
[2017-02-02] MEDS: GABAPENTIN 300 MG CAP PO SCH ×3 (08:58→20:54)
[2017-02-02] MEDS: LISINOPRIL 5 MG TAB PO SCH ×2 (08:59→09:00)
[2017-02-02] MEDS: DOCUSATE SODIUM 100 MG CAP PO SCH ×2 (08:59→20:54)
[2017-02-02] MEDS: INSULIN GLARGINE [LANtus] 3 ML PEN SC SCH (09:07)
--- NOTE | 2017-02-02 11:11 | CONS ---
Date/Time of Note Date/Time of Note DATE: 02/02/17 TIME: 11:06 Assessment/Plan Assessment/Plan Chief Complaint/Hosp Course IMP: 1.NSTEMI-peak trop>60 Now dowtrended significantly s/p LHC with patent RCA stents and high grade disease of LAD/LCX with small caliber vessels. Now post- op s/p cabg x 2 2.cardiomyopathy-LVEF 40-45 BY OSH echo. 25% by echo read here 3.Hypotension-borderline. Hold lasix as tolerated 4.resp failure s/p extubation-now stable 5.anemia 6. AMS/encephalopathy 7. PNA-ongoing by chest CT 8. COPD 9. Hypothyroid 10.DM-labile BS 11.Neck mass? with dysphagia. Now s/p bronch with findings of subglottic mass. Now per ENT decreasing in size and thinks possibly secondary to extended intubation 12. carotid stenosis Recc: -Tele -Continue acei as tolerated -Continue asa -resume brilinta. -Continue statin -Smoking cessation -Follow BS closely and with ongoing adjustment insulin therapy as necessary -Continue abx's and f/u cx data -Continue bronchodilators -Follow volume status closely Problems: Consultation Date/Type/Reason Admit Date/Time Jan 06, 2017 at 10:49 Initial Consult Date 01/06/2017 Type of Consultation: cardiology Reason for Consultation nstemi Referring Provider: TANIYA OLMSTEAD Exam/Review of Systems Vital Signs Vitals Vital Signs Date Time Temp Pulse Resp B/P Pulse Ox O2 Delivery O2 Flow Rate FiO2 02/02/17 09:01 108 02/02/17 07:09 98.1 17 115/58 96 02/02/17 02:07 2.0 02/01/17 20:00 Nasal Cannula 02/01/17 02:06 27 Intake and Output 02/01/17 02/01/17 02/02/17 15:00 23:00 07:00 Intake Total 480 ml 100 ml 300 ml Output Total 505 ml 1050 ml Balance -25 ml -950 ml 300 ml Exam Review of Systems: CONSTITUTIONAL: No fevers, chills. PULMONARY: No sob CARDIOVASCULAR: Mild pain at sternotomy site GASTROINTESTINAL: No nausea/vomiting. GENITOURINARY: No hematuria/dysuria. MUSCULOSKELETAL: No myagias/arthalgias. PSYCHIATRIC: The patient denies depression. NEUROLOGIC: No weakness Constitutional: alert Psych: no complaints Head: normocephalic ENMT: mucosa pink and moist Neck: jvd (9 cm water), supple Respiratory: diminished breath sounds (at bases/B) Cardiovascular: other (median sternotomy site c/d/i), regular rate and rhythm Gastrointestinal: non-tender, soft Musculoskeletal: muscle tone (normal) Extremities: edema (none) 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: other (No focal deficits) Results Result Diagram: 02/02/1719 02/02/1731 Results 24 hrs Laboratory Tests Test 02/01/17 12:07 02/01/17 17:20 02/01/17 20:14 02/02/17 07:19 Bedside Glucose 209 123 124 White Blood Count 10.2 # Red Blood Count 4.04 L Hemoglobin 11.9 L Hematocrit 38.1 Mean Corpuscular Volume 94.3 Mean Corpuscular Hemoglobin 29.5 Mean Corpuscular Hemoglobin Concent 31.2 L Red Cell Distribution Width 15.6 H Platelet Count 383 # Mean Platelet Volume 9.5 Neutrophils % 55.9 Lymphocytes % 17.7 Monocytes % 8.7 Eosinophils % 16.4 H Basophils % 0.9 Nucleated Red Blood Cells % 0.0 Neutrophils # (Manual) 6 Lymphocytes # 1.8 Monocytes # 0.9 Eosinophils # 1.7 H Basophils # 0.1 Nucleated Red Blood Cells # 0.0 Phosphorus Level 4.1 Magnesium Level 1.8 Test 02/02/17 07:31 02/02/17 08:20 Sodium Level 143 Potassium Level 4.3 Chloride Level 96 L Carbon Dioxide Level 34 H Anion Gap 17 H Blood Urea Nitrogen 8 Creatinine 0.46 Glucose Level 73 # Calcium Level 9.0 Bedside Glucose 80 Medications Medications Current Medications Acetaminophen (Tylenol Tab) 650 mg Q6H PRN PO PAIN LEVEL 1-3 OR FEVER; Start at 11:30 Acetaminophen (Tylenol Supp) 650 mg Q6H PRN [place] PAIN LEVEL 1-3 OR FEVER; Start 01/06/17 at 11:30 Aspirin (Halfprin) 81 mg DAILY PO Last administered on 02/02/17 08:58; Admin Dose 81 MG; Start 01/07/17 at 09:00 Duloxetine HCl (Cymbalta) 20 mg DAILY PO Last administered on 02/02/17 08:58; Admin Dose 20 MG; Start 01/07/17 at 09:00 Gabapentin (Neurontin) 300 mg TID PO Last administered on 02/02/17 08:58; Admin Dose 300 MG; Start 01/06/17 at 13:00 Metoprolol Tartrate (Lopressor) 12.5 mg BID PO ; Start 01/06/17 at 21:00; Status Future Hold Ticagrelor (Brilinta) 90 mg BID PO Last administered on 01/16/17 08:21; Admin Dose 90 MG; Start 01/06/17 at 21:00; Status Future Hold Furosemide (Lasix) 20 mg DAILY PO ; Start 01/07/17 at 09:00; Status Future Hold Bisacodyl (Dulcolax Supp) 10 mg DAILY PRN [place] CONSTIPATION; Start 01/06/17 at 11 :30 Guaifenesin (Robitussin Liquid Cup) 100 mg Q6H PRN PO COUGH Last administered on 01/08/17 07:54; Admin Dose 100 MG; Start 01/06/17 at 11:30 Levothyroxine Sodium (Synthroid) 112 mcg DAILY@06 PO Last administered on 06:35; Admin Dose 112 MCG; Start 01/07/17 at 06:00 Lisinopril (Zestril) 2.5 mg DAILY PO Last administered on 01/29/17 09:00; Admin Dose 2.5 MG; Start 01/07/17 at 09:00 Senna (Senokot) 2 tab HS PO Last administered on 02/01/17 20:16; Admin Dose 2 TAB; Start 01/06/17 at 21:00 Atorvastatin Calcium (Lipitor) 40 mg HS PO Last administered on 02/01/17 20:16 ; Admin Dose 40 MG; Start 01/14/17 at 21:00 Alendronate Sodium (Fosamax) 70 mg We@0630 PO Last administered on 01/21/17 07: 00; Admin Dose 70 MG; Start 01/21/17 at 06:30 Polyethylene Glycol (Miralax) 17 gm DAILY PRN PO constipation; Start 01/20/17 at 18:30 Insulin Glargine (Lantus) 13 unit DAILY@08 SC Last administered on 02/02/17 09 :07; Admin Dose 13 UNIT; Start 01/22/17 at 08:00; Status Future hold Morphine Sulfate (morphine) 1 mg Q2 PRN IV PAIN LEVEL 1-5 Last administered on 01/30/17 10:28; Admin Dose 1 MG; Start 01/26/17 at 14:00 Morphine Sulfate (morphine) 2 mg Q2 PRN IV PAIN LEVEL 6-10 Last administered on 02/01/17 22:25; Admin Dose 2 MG; Start 01/26/17 at 14:00 Ondansetron HCl (Zofran Inj) 4 mg Q6H PRN IV NAUSEA AND/OR VOMITING; Start at 14:00 Dextrose (D50w Syringe) 25 ml Q15M PRN IV Till BS 80 mg/dL or above x2; Start 01/26/17 at 20:30 Dextrose (D50w Syringe) 50 ml Q15M PRN IV Till BS 80 mg/dL or above x2 Last administered on 01/31/17 04:36; Admin Dose 50 ML; Start 01/26/17 at 20:30 Insulin Human NPH (Humulin N) 9 unit DAILY@20 SC Last administered on 20:20; Admin Dose 9 UNIT; Start 01/28/17 at 20:00 Docusate Sodium (Colace) 100 mg BID PO Last administered on 02/02/17 08:59; Admin Dose 100 MG; Start 01/29/17 at 21:00 Acetaminophen/ Hydrocodone Bitart ([place] (5/325)) 1 tab Q6H PRN PO PAIN Last administered on 02/01/17 19:01; Admin Dose 1 TAB; Start 02/01/17 at 09:00 RHONDA PENA Feb 02, 2017 11:11
[2017-02-02] MEDS ORDERED: FUROSEMIDE 20 MG INJ IV ONE (11:30)
--- NOTE | 2017-02-02 11:46 | RADRPT ---
PROCEDURE: XR Chest. CLINICAL INDICATION: Orthostatic hypotension TECHNIQUE: Single AP portable chest. COMPARISON: 02/01/2017 Chest x-ray FINDINGS: The cardiac silhouette is mildly enlarged. Atherosclerotic calcification of the aorta. Increase si ze and bilateral pleural effusions left greater than right worsening vascular congestion compatible with CHF exacerbation. Sternotomy wires in place. No pneumothorax. The osseous structures and soft tissues are unremarkable. IMPRESSION: 1. Increased vascular congestion and pleural effusions compatible with CHF exacerbation. . RPTAT:AAJJ Ronnie Paulino Physician Date Time Electronically viewed and signed by Physician Jina on 02/02/2017 11:45 RYAN/
[2017-02-02] MEDS ORDERED: TICAGRELOR 90 MG TABLET PO SCH (12:00)
[2017-02-02] MEDS: HYDROCODONE/APAP (5/325) TAB PO PRN ×2 (13:01→22:55)
[2017-02-02] MEDS: TICAGRELOR 90 MG TABLET PO SCH ×2 (13:04→20:57)
--- NOTE | 2017-02-02 17:35 | PN ---
Date/Time of Note Date/Time of Note DATE: 02/02/17 TIME: 17:35 Assessment/Plan VTE Prophylaxis VTE Prophylaxis Intervention: SCD's Lines/Catheters IV Catheter Type (from Nrs): [place] Lock Urinary Cath still in place: No Assessment/Plan Assessment/Plan 56 yo F with poorly controlled DM2 admitted for NSTEMI in setting DKA. Found to have multivessel CAD, s/p CABG 8.15. 1. multivessel CAD, recent NSTEMI, ICM with EF IMPROVED from <25% to 40%. S/p CABG 8.15 -will talk to CT surgery in AM as pt likely can be dc'ed home 2. L subglottic lesion:ENT states 2/2 prolonged intubation and does not require further w/u-monitor for now 3. Severe obstructive and restrictive pulmonary disease-improved overall 4. DM-1 (likely) with wide BG fluctuations earlier this admission, improved when patient was on insulin drip earlier. Now off insulin drip, and on subcutaneous insulin Lantus and NPH. -endo following 5. Hypothyroidism. -Continue Synthroid. 6. Chronic anemia. cpm DVT prophylaxis: SCD's LIKELY DC IN AM. WILL TALK TO CONSULTANTS Subjective 24 Hr Interval Summary Free Text/Dictation wondering when she can go home Exam/Review of Systems Vital Signs Vitals Vital Signs Date Time Temp Pulse Resp B/P Pulse Ox O2 Delivery O2 Flow Rate FiO2 02/02/17 16:26 103 02/02/17 15:57 2.0 02/02/17 11:15 98.4 19 106/59 94 02/02/17 08:00 Nasal Cannula 02/01/17 02:06 27 Intake and Output 02/01/17 02/01/17 02/02/17 15:00 23:00 07:00 Intake Total 480 ml 100 ml 300 ml Output Total 505 ml 1050 ml Balance -25 ml -950 ml 300 ml Exam nad sternotomy surgical site c/d/i no mrg lungs clear no rashes Results Result Diagram: 02/02/17 0719 02/02/17 0731 Results 24 hrs Laboratory Tests Test 02/01/17 20:14 02/02/17 07:19 02/02/17 07:31 02/02/17 08:20 Bedside Glucose 124 80 White Blood Count 10.2 # Red Blood Count 4.04 L Hemoglobin 11.9 L Hematocrit 38.1 Mean Corpuscular Volume 94.3 Mean Corpuscular Hemoglobin 29.5 Mean Corpuscular Hemoglobin Concent 31.2 L Red Cell Distribution Width 15.6 H Platelet Count 383 # Mean Platelet Volume 9.5 Neutrophils % 55.9 Lymphocytes % 17.7 Monocytes % 8.7 Eosinophils % 16.4 H Basophils % 0.9 Nucleated Red Blood Cells % 0.0 Neutrophils # (Manual) 6 Lymphocytes # 1.8 Monocytes # 0.9 Eosinophils # 1.7 H Basophils # 0.1 Nucleated Red Blood Cells # 0.0 Phosphorus Level 4.1 Magnesium Level 1.8 Sodium Level 143 Potassium Level 4.3 Chloride Level 96 L Carbon Dioxide Level 34 H Anion Gap 17 H Blood Urea Nitrogen 8 Creatinine 0.46 Glucose Level 73 # Calcium Level 9.0 Test 02/02/17 12:15 02/02/17 12:48 Bedside Glucose 70 119 Medications Medications Current Medications Acetaminophen (Tylenol Tab) 650 mg Q6H PRN PO PAIN LEVEL 1-3 OR FEVER; Start at 11:30 Acetaminophen (Tylenol Supp) 650 mg Q6H PRN [place] PAIN LEVEL 1-3 OR FEVER; Start 01/06/17 at 11:30 Aspirin (Halfprin) 81 mg DAILY PO Last administered on 02/02/17 08:58; Admin Dose 81 MG; Start 01/07/17 at 09:00 Duloxetine HCl (Cymbalta) 20 mg DAILY PO Last administered on 02/02/17 08:58; Admin Dose 20 MG; Start 01/07/17 at 09:00 Gabapentin (Neurontin) 300 mg TID PO Last administered on 02/02/17 12:50; Admin Dose 300 MG; Start 01/06/17 at 13:00 Metoprolol Tartrate (Lopressor) 12.5 mg BID PO ; Start 01/06/17 at 21:00; Status Future Hold Furosemide (Lasix) 20 mg DAILY PO ; Start 01/07/17 at 09:00; Status Future Hold Bisacodyl (Dulcolax Supp) 10 mg DAILY PRN [place] CONSTIPATION; Start 01/06/17 at 11 :30 Guaifenesin (Robitussin Liquid Cup) 100 mg Q6H PRN PO COUGH Last administered on 01/08/17 07:54; Admin Dose 100 MG; Start 01/06/17 at 11:30 Levothyroxine Sodium (Synthroid) 112 mcg DAILY@06 PO Last administered on 06:35; Admin Dose 112 MCG; Start 01/07/17 at 06:00 Lisinopril (Zestril) 2.5 mg DAILY PO Last administered on 01/29/17 09:00; Admin Dose 2.5 MG; Start 01/07/17 at 09:00 Senna (Senokot) 2 tab HS PO Last administered on 02/01/17 20:16; Admin Dose 2 TAB; Start 01/06/17 at 21:00 Atorvastatin Calcium (Lipitor) 40 mg HS PO Last administered on 02/01/17 20:16 ; Admin Dose 40 MG; Start 01/14/17 at 21:00 Alendronate Sodium (Fosamax) 70 mg We@0630 PO Last administered on 01/21/17 07: 00; Admin Dose 70 MG; Start 01/21/17 at 06:30 Polyethylene Glycol (Miralax) 17 gm DAILY PRN PO constipation; Start 01/20/17 at 18:30 Insulin Glargine (Lantus) 13 unit DAILY@08 SC Last administered on 02/02/17 09 :07; Admin Dose 13 UNIT; Start 01/22/17 at 08:00; Status Future hold Morphine Sulfate (morphine) 1 mg Q2 PRN IV PAIN LEVEL 1-5 Last administered on 01/30/17 10:28; Admin Dose 1 MG; Start 01/26/17 at 14:00 Morphine Sulfate (morphine) 2 mg Q2 PRN IV PAIN LEVEL 6-10 Last administered on 02/01/17 22:25; Admin Dose 2 MG; Start 01/26/17 at 14:00 Ondansetron HCl (Zofran Inj) 4 mg Q6H PRN IV NAUSEA AND/OR VOMITING; Start at 14:00 Dextrose (D50w Syringe) 25 ml Q15M PRN IV Till BS 80 mg/dL or above x2; Start 01/26/17 at 20:30 Dextrose (D50w Syringe) 50 ml Q15M PRN IV Till BS 80 mg/dL or above x2 Last administered on 01/31/17 04:36; Admin Dose 50 ML; Start 01/26/17 at 20:30 Insulin Human NPH (Humulin N) 9 unit DAILY@20 SC Last administered on 20:20; Admin Dose 9 UNIT; Start 01/28/17 at 20:00 Docusate Sodium (Colace) 100 mg BID PO Last administered on 02/02/17 08:59; Admin Dose 100 MG; Start 01/29/17 at 21:00 Acetaminophen/ Hydrocodone Bitart ([place] (5/325)) 1 tab Q6H PRN PO PAIN Last administered on 02/02/17 13:01; Admin Dose 1 TAB; Start 02/01/17 at 09:00 Ticagrelor (Brilinta) 90 mg BID PO Last administered on 02/02/17 13:04; Admin Dose 90 MG; Start 02/02/17 at 12:00 ROBEL PETTY MD Feb 02, 2017 17:35
--- NOTE | 2017-02-02 18:22 | CONS ---
Date/Time of Note Date/Time of Note DATE: 02/02/17 TIME: 18:19 Assessment/Plan Assessment/Plan Problems: (1) Type 1 diabetes mellitus with diabetic polyneuropathy Status: Chronic Comment: Good glycemic control over all. Near hypoglycemia this am and frankly low 2 days ago in the morning. Yesterday high but suspect pt. would benefit from dose reduction of NPH at hs. Will decrease dose from 9 to 7 units qhs and reeval tomorrow. Consultation Date/Type/Reason Admit Date/Time Jan 06, 2017 at 10:49 Initial Consult Date 01/14/17 Type of Consultation: Endocrinology Reason for Consultation T1DM OOC Referring Provider: TANIYA OLMSTEAD 24 HR Interval Summary Constitutional: improved, no complaints Detailed Summary Respiratory: no complaints Cardiovascular: no complaints Gastrointestinal: no complaints Genitourinary: no complaints Musculoskeletal: no complaints Neurologic: no complaints Exam/Review of Systems Vital Signs Vitals VS - Last 72 Hours, by Label Date Time Temp Pulse Resp B/P Pulse Ox O2 Delivery O2 Flow Rate FiO2 02/02/17 16:26 103 02/02/17 15:57 2.0 02/02/17 12:22 108 02/02/17 11:15 98.4 62 19 106/59 94 02/02/17 09:01 108 02/02/17 08:00 Nasal Cannula 2.0 02/02/17 07:09 98.1 98 17 115/58 96 02/02/17 04:35 98.8 86 18 118/55 99 02/02/17 04:26 96 02/02/17 02:07 2.0 02/02/17 00:52 98 02/02/17 00:00 98.9 99 18 118/57 98 02/01/17 22:06 2.0 02/01/17 20:24 100 02/01/17 20:11 99.1 88 18 113/55 97 02/01/17 20:00 Nasal Cannula 2.0 02/01/17 17:00 101 27 107/73 97 Nasal Cannula 2.0 02/01/17 16:00 99.1 102 24 109/53 97 Nasal Cannula 2.0 02/01/17 16:00 100 02/01/17 15:00 103 21 117/56 100 Nasal Cannula 2.0 02/01/17 14:01 106 24 119/54 96 Nasal Cannula 2.0 02/01/17 13:03 102 27 91/48 99 Nasal Cannula 2.0 02/01/17 12:00 105 27 112/51 96 Nasal Cannula 2.0 02/01/17 12:00 101 02/01/17 11:00 100 20 102/57 96 Nasal Cannula 2.0 02/01/17 10:00 106 33 108/74 Nasal Cannula 2.0 02/01/17 09:00 105 31 106/60 98 Nasal Cannula 2.0 02/01/17 08:02 21 91/38 97 Nasal Cannula 2.0 02/01/17 08:00 102 20 78/33 97 Nasal Cannula 2.0 02/01/17 08:00 98 02/01/17 08:00 Nasal Cannula 2.0 02/01/17 07:00 103 23 116/54 99 Nasal Cannula 2.0 02/01/17 06:00 104 23 111/49 95 Nasal Cannula 2.0 02/01/17 05:00 101 19 99/55 98 Nasal Cannula 2.0 02/01/17 04:00 99.2 101 18 124/56 99 Nasal Cannula 2.0 02/01/17 04:00 104 02/01/17 03:00 104 19 109/55 97 Nasal Cannula 2.0 02/01/17 02:06 97 2.0 27 02/01/17 02:00 105 20 107/49 97 Nasal Cannula 2.0 02/01/17 01:35 105 20 97 2.0 27 02/01/17 01:00 102 19 107/50 95 Nasal Cannula 2.0 02/01/17 00:00 109 02/01/17 00:00 99.0 107 23 98/44 95 Nasal Cannula 2.0 01/31/17 23:00 107 20 119/57 95 Nasal Cannula 2.0 01/31/17 22:00 111 22 100/38 95 Nasal Cannula 2.0 01/31/17 21:00 119 22 93/45 96 Nasal Cannula 2.0 01/31/17 20:00 Nasal Cannula 2.0 01/31/17 20:00 97 2.0 27 01/31/17 20:00 99.9 112 30 114/55 100 Room Air 01/31/17 20:00 103 22 97 2.0 27 01/31/17 20:00 109 01/31/17 18:00 111 32 111/56 93 Room Air 01/31/17 17:00 114 27 100/58 95 Room Air 01/31/17 16:00 98.4 108 23 113/58 96 Nasal Cannula 2.0 01/31/17 16:00 105 01/31/17 15:00 109 22 116/62 97 Nasal Cannula 2.0 01/31/17 14:00 109 26 110/56 98 Nasal Cannula 2.0 01/31/17 13:00 107 29 106/57 98 Nasal Cannula 2.0 01/31/17 12:00 98.0 105 20 97/52 99 Nasal Cannula 2.0 01/31/17 12:00 107 01/31/17 11:00 106 24 101/48 98 Nasal Cannula 2.0 01/31/17 10:00 110 29 99/51 99 Nasal Cannula 2.0 01/31/17 09:23 102 19 98 Nasal Cannula 2.0 01/31/17 09:00 105 41 85/54 99 Nasal Cannula 2.0 01/31/17 08:00 Nasal Cannula 2.0 01/31/17 08:00 98.4 101 23 107/56 100 Nasal Cannula 2.0 01/31/17 08:00 102 01/31/17 07:00 98.1 102 22 95/62 100 Nasal Cannula 2.0 01/31/17 06:00 97.9 100 22 92/54 100 Nasal Cannula 2.0 01/31/17 05:00 98.4 98 17 104/52 97 Nasal Cannula 2.0 01/31/17 04:00 97.9 105 22 123/56 98 Nasal Cannula 2.0 01/31/17 04:00 108 01/31/17 03:00 98.7 104 21 97/56 96 Nasal Cannula 2.0 01/31/17 02:00 98.6 100 20 89/45 98 Nasal Cannula 2.0 01/31/17 01:28 2.0 01/31/17 01:28 98 22 99 Nasal Cannula 2.0 01/31/17 01:00 99.2 99 19 83/44 98 Nasal Cannula 2.0 01/31/17 00:00 104 01/31/17 00:00 99.5 101 23 93/54 100 Nasal Cannula 2.0 01/31/17 00:00 Nasal Cannula 2.0 01/30/17 22:00 110 24 99/55 96 Nasal Cannula 2.0 01/30/17 21:00 114 23 106/57 97 Nasal Cannula 2.0 01/30/17 20:03 2.0 01/30/17 20:03 102 20 97 Nasal Cannula 2.0 01/30/17 20:00 112 25 110/57 99 Nasal Cannula 2.0 01/30/17 20:00 Nasal Cannula 2.0 01/30/17 20:00 109 01/30/17 19:00 99.1 107 19 109/51 100 Nasal Cannula 2.0 Vital Signs Date Time Temp Pulse Resp B/P Pulse Ox O2 Delivery O2 Flow Rate FiO2 02/02/17 16:26 103 02/02/17 15:57 2.0 02/02/17 11:15 98.4 19 106/59 94 02/02/17 08:00 Nasal Cannula 02/01/17 02:06 27 Intake and Output 02/01/17 02/01/17 02/02/17 15:00 23:00 07:00 Intake Total 480 ml 100 ml 300 ml Output Total 505 ml 1050 ml Balance -25 ml -950 ml 300 ml Exam Constitutional: alert, oriented, well developed Psych: nl mood/affect, no complaints Respiratory: clear to auscultation, normal air movement Cardiovascular: nl pulses, regular rate and rhythm, No edema, No murmurs/extra sounds, No rub Gastrointestinal: nl liver, spleen, non-tender, soft, No bowel sounds, No mass, No rebound or guarding Musculoskeletal: nl extremities to inspection Extremities: normal pulses, No clubbing, No cyanosis, No edema 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, nl mental status, nl speech, nl strength Additional Comments Bedside Glucose - 72 Hours Test 01/30/17 20:53 01/31/17 04:31 01/31/17 04:52 01/31/17 05:13 Bedside Glucose 121mg/dL (70-220) 40mg/dL (70-220) *L 171mg/dL (70-220) 140mg/dL (70-220) Test 01/31/17 07:46 01/31/17 12:12 01/31/17 18:11 01/31/17 20:56 Bedside Glucose 109mg/dL (70-220) 252mg/dL (70-220) H 157mg/dL (70-220) 83mg/dL (70-220) Test 02/01/17 04:05 02/01/17 08:11 02/01/17 12:07 02/01/17 17:20 Bedside Glucose 186mg/dL (70-220) 236mg/dL (70-220) H 209mg/dL (70-220) 123mg/dL (70-220) Test 02/01/17 20:14 02/02/17 08:20 02/02/17 12:15 02/02/17 12:48 Bedside Glucose 124mg/dL (70-220) 80mg/dL (70-220) 70mg/dL (70-220) 119mg/dL (70-220) Test 02/02/17 17:31 Bedside Glucose 126mg/dL (70-220) Results Result Diagram: 02/02/17 0719 02/02/17 0731 Results 24 hrs Laboratory Tests Test 02/01/17 20:14 02/02/17 07:19 02/02/17 07:31 02/02/17 08:20 Bedside Glucose 124 80 White Blood Count 10.2 # Red Blood Count 4.04 L Hemoglobin 11.9 L Hematocrit 38.1 Mean Corpuscular Volume 94.3 Mean Corpuscular Hemoglobin 29.5 Mean Corpuscular Hemoglobin Concent 31.2 L Red Cell Distribution Width 15.6 H Platelet Count 383 # Mean Platelet Volume 9.5 Neutrophils % 55.9 Lymphocytes % 17.7 Monocytes % 8.7 Eosinophils % 16.4 H Basophils % 0.9 Nucleated Red Blood Cells % 0.0 Neutrophils # (Manual) 6 Lymphocytes # 1.8 Monocytes # 0.9 Eosinophils # 1.7 H Basophils # 0.1 Nucleated Red Blood Cells # 0.0 Phosphorus Level 4.1 Magnesium Level 1.8 Sodium Level 143 Potassium Level 4.3 Chloride Level 96 L Carbon Dioxide Level 34 H Anion Gap 17 H Blood Urea Nitrogen 8 Creatinine 0.46 Glucose Level 73 # Calcium Level 9.0 Test 02/02/17 12:15 02/02/17 12:48 02/02/17 17:31 Bedside Glucose 70 119 126 Medications Medications Current Medications Acetaminophen (Tylenol Tab) 650 mg Q6H PRN PO PAIN LEVEL 1-3 OR FEVER; Start at 11:30 Acetaminophen (Tylenol Supp) 650 mg Q6H PRN [place] PAIN LEVEL 1-3 OR FEVER; Start 01/06/17 at 11:30 Aspirin (Halfprin) 81 mg DAILY PO Last administered on 02/02/17 08:58; Admin Dose 81 MG; Start 01/07/17 at 09:00 Duloxetine HCl (Cymbalta) 20 mg DAILY PO Last administered on 02/02/17 08:58; Admin Dose 20 MG; Start 01/07/17 at 09:00 Gabapentin (Neurontin) 300 mg TID PO Last administered on 02/02/17 12:50; Admin Dose 300 MG; Start 01/06/17 at 13:00 Metoprolol Tartrate (Lopressor) 12.5 mg BID PO ; Start 01/06/17 at 21:00; Status Future Hold Furosemide (Lasix) 20 mg DAILY PO ; Start 01/07/17 at 09:00; Status Future Hold Bisacodyl (Dulcolax Supp) 10 mg DAILY PRN [place] CONSTIPATION; Start 01/06/17 at 11 :30 Guaifenesin (Robitussin Liquid Cup) 100 mg Q6H PRN PO COUGH Last administered on 01/08/17 07:54; Admin Dose 100 MG; Start 01/06/17 at 11:30 Levothyroxine Sodium (Synthroid) 112 mcg DAILY@06 PO Last administered on 06:35; Admin Dose 112 MCG; Start 01/07/17 at 06:00 Lisinopril (Zestril) 2.5 mg DAILY PO Last administered on 01/29/17 09:00; Admin Dose 2.5 MG; Start 01/07/17 at 09:00 Senna (Senokot) 2 tab HS PO Last administered on 02/01/17 20:16; Admin Dose 2 TAB; Start 01/06/17 at 21:00 Atorvastatin Calcium (Lipitor) 40 mg HS PO Last administered on 02/01/17 20:16 ; Admin Dose 40 MG; Start 01/14/17 at 21:00 Alendronate Sodium (Fosamax) 70 mg We@0630 PO Last administered on 01/21/17 07: 00; Admin Dose 70 MG; Start 01/21/17 at 06:30 Polyethylene Glycol (Miralax) 17 gm DAILY PRN PO constipation; Start 01/20/17 at 18:30 Insulin Glargine (Lantus) 13 unit DAILY@08 SC Last administered on 02/02/17 09 :07; Admin Dose 13 UNIT; Start 01/22/17 at 08:00; Status Future hold Morphine Sulfate (morphine) 1 mg Q2 PRN IV PAIN LEVEL 1-5 Last administered on 01/30/17 10:28; Admin Dose 1 MG; Start 01/26/17 at 14:00 Morphine Sulfate (morphine) 2 mg Q2 PRN IV PAIN LEVEL 6-10 Last administered on 02/01/17 22:25; Admin Dose 2 MG; Start 01/26/17 at 14:00 Ondansetron HCl (Zofran Inj) 4 mg Q6H PRN IV NAUSEA AND/OR VOMITING; Start at 14:00 Dextrose (D50w Syringe) 25 ml Q15M PRN IV Till BS 80 mg/dL or above x2; Start 01/26/17 at 20:30 Dextrose (D50w Syringe) 50 ml Q15M PRN IV Till BS 80 mg/dL or above x2 Last administered on 01/31/17 04:36; Admin Dose 50 ML; Start 01/26/17 at 20:30 Docusate Sodium (Colace) 100 mg BID PO Last administered on 02/02/17 08:59; Admin Dose 100 MG; Start 01/29/17 at 21:00 Acetaminophen/ Hydrocodone Bitart ([place] (5/325)) 1 tab Q6H PRN PO PAIN Last administered on 02/02/17 13:01; Admin Dose 1 TAB; Start 02/01/17 at 09:00 Ticagrelor (Brilinta) 90 mg BID PO Last administered on 02/02/17 13:04; Admin Dose 90 MG; Start 02/02/17 at 12:00 Insulin Human NPH (Humulin N) 7 unit DAILY@20 SC ; Start 02/02/17 at 20:00 DARYL MYERS MD Feb 02, 2017 18:21
[2017-02-02] MEDS ORDERED: AMIODARONE 150MG/D5W BOLUS 100 ML IV ONE (19:30)
[2017-02-02] MEDS ORDERED: ENOXAPARIN 40 MG/0.4 ML SYG SC SCH ×2 (19:30→21:00)
[2017-02-02] MEDS ORDERED: ENOXAPARIN 60 MG/0.6 ML SYG SC SCH (19:40)
[2017-02-02] MEDS: AMIODARONE 900 MG in DEXTROSE 5% 482 ML IV SCH (19:52)
[2017-02-02] MEDS: NPH, HUMAN INSULIN ISOPHANE 3ML VIAL SC SCH (20:00)
[2017-02-02] MEDS: ENOXAPARIN 60 MG/0.6 ML SYG SC SCH (20:17)
[2017-02-02] MEDS: SENNA TAB PO SCH (20:53)
[2017-02-02] MEDS: ATORVASTATIN 40 MG TAB PO SCH (20:54)
[2017-02-03] VITALS (11 sets, daily range): BP systolic 103–122; BP diastolic 53–59; PULSE 88–99; RESP 16–18
[2017-02-03] MEDS: AMIODARONE 900 MG in DEXTROSE 5% 482 ML IV SCH (02:05)
[2017-02-03] MEDS: LEVOTHYROXINE 112 MCG TAB PO SCH (06:33)
--- NOTE | 2017-02-03 07:26 | PN ---
Date/Time of Note Date/Time of Note DATE: 02/03/17 TIME: 07:25 Assessment/Plan Lines/Catheters IV Catheter Type (from Nrsg): Peripheral IV M[place] in Place (from Nrsg): No Assessment/Plan Chief Complaint/Hosp Course Patient with coronary artery disease Status post myocardial infarction Right carotid occlusion COPD Status post coronary artery bypass grafting DEE to LAD Saphenous vein graft to the obtuse marginal branch of the circumflex BS control Up to the chair and pulmonary toilet DC planning Discussed with the referring physicians Problems: Subjective 24 Hr Interval Summary Constitutional: improved Pain Control: mild Exam/Review of Systems Vital Signs Vitals Vital Signs Date Time Temp Pulse Resp B/P Pulse Ox O2 Delivery O2 Flow Rate FiO2 02/03/17 04:31 88 02/03/17 04:09 98.7 16 113/57 96 02/03/17 04:08 2.0 02/02/17 20:00 Nasal Cannula 02/01/17 02:06 27 Intake and Output 02/02/17 02/02/17 02/03/17 15:00 23:00 07:00 Intake Total 900 ml 366 ml Balance 900 ml 366 ml Exam ENMT: mucosa pink and moist, nl external ears & nose, nl lips & teeth, nl nasal mucosa & septum Neck: non-tender, supple Respiratory: clear to auscultation, normal air movement Cardiovascular: nl pulses, regular rate and rhythm Gastrointestinal: nl liver, spleen, non-tender, soft Results Result Diagram: 02/02/17 0719 02/02/17 0731 CHELA ALVARENGA MD Feb 03, 2017 07:26
[2017-02-03] MEDS: INSULIN ASPART [NOVOLOG] 3 ML PEN SC SCH ×7 (08:31→20:38)
[2017-02-03] MEDS: INSULIN GLARGINE [LANtus] 3 ML PEN SC SCH (08:36)
[2017-02-03] MEDS: ENOXAPARIN 60 MG/0.6 ML SYG SC SCH ×2 (08:39→20:31)
[2017-02-03] MEDS: GABAPENTIN 300 MG CAP PO SCH ×3 (08:40→20:29)
[2017-02-03] MEDS: DULOXETINE 20 MG CAP DR PO SCH (08:40)
[2017-02-03] MEDS: DOCUSATE SODIUM 100 MG CAP PO SCH ×2 (08:41→20:29)
[2017-02-03] MEDS: LISINOPRIL 5 MG TAB PO SCH ×2 (08:42→09:00)
[2017-02-03] MEDS: ASPIRIN (EC) 81 MG TAB PO SCH (08:42)
[2017-02-03] MEDS: TICAGRELOR 90 MG TABLET PO SCH ×2 (08:44→20:30)
--- NOTE | 2017-02-03 11:33 | CONS ---
Date/Time of Note Date/Time of Note DATE: 02/03/17 TIME: 11:31 Assessment/Plan Assessment/Plan Additional Assessment/Plan 1. CAD with Triple vessel disease - post Op now/ DEE/SVG - tolerated procedure well - MUCH BETTER NOW. 2. Carotid artery disease - no CP now, in good fluid status - con't to adjust Rx. 3. Neck Mass - no Rx needed - ENT r/o malignancy. 4 Hypertension - well Rx, con't med rx - well rx - well Rx. Will follow. 5. Diabetes - On ISS. might need gtt - endo team follows 6 CHF - chronic, good fluid staus now.- WILL KEEP EUVOLEMIC 7. Resp failure - ABG on range, extub today 8. Episode of a, fib with RVR 02/02/17 - amiodarone loaded + lovenox - tolerated well-will Rx with lovenox x 2-3 days, if no recurrence, consider d/c lovenox Consultation Date/Type/Reason Admit Date/Time Jan 06, 2017 at 10:49 Type of Consultation: Endocrinology Referring Provider: TANIYA OLMSTEAD 24 HR Interval Summary Free Text/Dictation a, fib with RVR 02/02/17 - amiodarone loaded + lovenox - tolerated well-will Rx with lovenox x 2-3 days, if no recurrence, consider d/c ROS: No fever, no chills, no nausea, no vomiting, no diarrhea/constipation No recent weight changes No chest pain, no PND, no orthopnea No dizziness, blurred vision No thirst, no heat or cold intolerance Exam/Review of Systems Vital Signs Vitals Vital Signs Date Time Temp Pulse Resp B/P Pulse Ox O2 Delivery O2 Flow Rate FiO2 02/03/17 11:22 97.9 95 18 103/53 94 02/03/17 04:08 2.0 02/02/17 20:00 Nasal Cannula 02/01/17 02:06 27 Intake and Output 02/02/17 02/02/17 02/03/17 15:00 23:00 07:00 Intake Total 900 ml 366 ml Balance 900 ml 366 ml Exam General: WN/WD/NAD, AOx 3 HEENT: Unicetric/atraumatic/EOMI (follows commands) NECK: JVD elevated, no thyromegaly Lymph: no lymphadenopathy HEART: regular with no S3, II/ systolic murmur at apex, PMI left , no rub LUNGS: Coarse sounds ABD: soft, NT, ND, +BS : Intact Neuro: non focal SKIN: chronic changes EXT: trace edema Results Result Diagram: 02/02/17 0719 02/02/17 0731 Results 24 hrs Laboratory Tests Test 02/02/17 12:15 02/02/17 12:48 02/02/17 17:31 02/02/17 20:49 Bedside Glucose 70 119 126 78 Test 02/02/17 22:10 02/03/17 08:28 02/03/17 10:49 Bedside Glucose 92 149 233 H Medications Medications Current Medications Acetaminophen (Tylenol Tab) 650 mg Q6H PRN PO PAIN LEVEL 1-3 OR FEVER; Start at 11:30 Acetaminophen (Tylenol Supp) 650 mg Q6H PRN [place] PAIN LEVEL 1-3 OR FEVER; Start 01/06/17 at 11:30 Aspirin (Halfprin) 81 mg DAILY PO Last administered on 02/03/17 08:42; Admin Dose 81 MG; Start 01/07/17 at 09:00 Duloxetine HCl (Cymbalta) 20 mg DAILY PO Last administered on 02/03/17 08:40; Admin Dose 20 MG; Start 01/07/17 at 09:00 Gabapentin (Neurontin) 300 mg TID PO Last administered on 02/03/17 08:40; Admin Dose 300 MG; Start 01/06/17 at 13:00 Metoprolol Tartrate (Lopressor) 12.5 mg BID PO ; Start 01/06/17 at 21:00; Status Future Hold Furosemide (Lasix) 20 mg DAILY PO ; Start 01/07/17 at 09:00; Status Future Hold Bisacodyl (Dulcolax Supp) 10 mg DAILY PRN [place] CONSTIPATION; Start 01/06/17 at 11 :30 Guaifenesin (Robitussin Liquid Cup) 100 mg Q6H PRN PO COUGH Last administered on 01/08/17 07:54; Admin Dose 100 MG; Start 01/06/17 at 11:30 Levothyroxine Sodium (Synthroid) 112 mcg DAILY@06 PO Last administered on 06:33; Admin Dose 112 MCG; Start 01/07/17 at 06:00 Lisinopril (Zestril) 2.5 mg DAILY PO Last administered on 02/03/17 08:42; Admin Dose 2.5 MG; Start 01/07/17 at 09:00 Senna (Senokot) 2 tab HS PO Last administered on 02/02/17 20:53; Admin Dose 2 TAB; Start 01/06/17 at 21:00 Atorvastatin Calcium (Lipitor) 40 mg HS PO Last administered on 02/02/17 20:54 ; Admin Dose 40 MG; Start 01/14/17 at 21:00 Alendronate Sodium (Fosamax) 70 mg We@0630 PO Last administered on 01/21/17 07: 00; Admin Dose 70 MG; Start 01/21/17 at 06:30 Polyethylene Glycol (Miralax) 17 gm DAILY PRN PO constipation; Start 01/20/17 at 18:30 Insulin Glargine (Lantus) 13 unit DAILY@08 SC Last administered on 02/03/17 08 :36; Admin Dose 13 UNIT; Start 01/22/17 at 08:00; Status Future hold Morphine Sulfate (morphine) 1 mg Q2 PRN IV PAIN LEVEL 1-5 Last administered on 01/30/17 10:28; Admin Dose 1 MG; Start 01/26/17 at 14:00 Morphine Sulfate (morphine) 2 mg Q2 PRN IV PAIN LEVEL 6-10 Last administered on 02/01/17 22:25; Admin Dose 2 MG; Start 01/26/17 at 14:00 Ondansetron HCl (Zofran Inj) 4 mg Q6H PRN IV NAUSEA AND/OR VOMITING; Start at 14:00 Dextrose (D50w Syringe) 25 ml Q15M PRN IV Till BS 80 mg/dL or above x2; Start 01/26/17 at 20:30 Dextrose (D50w Syringe) 50 ml Q15M PRN IV Till BS 80 mg/dL or above x2 Last administered on 01/31/17 04:36; Admin Dose 50 ML; Start 01/26/17 at 20:30 Docusate Sodium (Colace) 100 mg BID PO Last administered on 02/03/17 08:41; Admin Dose 100 MG; Start 01/29/17 at 21:00 Acetaminophen/ Hydrocodone Bitart ([place] (5/325)) 1 tab Q6H PRN PO PAIN Last administered on 02/02/17 22:55; Admin Dose 1 TAB; Start 02/01/17 at 09:00 Ticagrelor (Brilinta) 90 mg BID PO Last administered on 02/03/17 08:44; Admin Dose 90 MG; Start 02/02/17 at 12:00 Insulin Human NPH 7 unit 7 unit DAILY@20 SC ; Start 02/02/17 at 20:00 Amiodarone HCl/ Dextrose (Cordarone Iv/ D5W) 500 ml @ 0 mls/hr Q0M IV Last administered on 02/03/17 02:05; Admin Dose 16.7 MLS/HR; Start 02/02/17 at 19:30 Enoxaparin Sodium (Lovenox) 45 mg BID SC Last administered on 02/03/17 08:39; Admin Dose 45 MG; Start 02/02/17 at 19:45 ARTIE MARADIAGA MD Feb 03, 2017 11:33
--- NOTE | 2017-02-03 13:55 | CONS ---
Date/Time of Note Date/Time of Note DATE: 02/03/17 TIME: 13:51 Assessment/Plan Assessment/Plan Problems: (1) Type 1 diabetes mellitus with diabetic polyneuropathy Status: Chronic Comment: Pt. required amiodarone drip overnight, which is in IV dextrose, but rate is so low, does not appear to be having major impact on her glucose levels. Last night hs glucose was 78-92 mg/dL and pt. "refused" NPH but per pt. she told RN to come back later to give it to her. However, per pt. when RN returned, pain medication had put her to sleep so she wound up not getting her nightly NPH dose. However, as luck would have it, this morning her BG was in goal range. Just because of this, I would still not completely stop hs NPH dosing. Would continue this and reeval tomorrow. Consultation Date/Type/Reason Admit Date/Time Jan 06, 2017 at 10:49 Initial Consult Date 01/14/17 Type of Consultation: Endocrinology Reason for Consultation T1DM OOC Referring Provider: TANIYA OLMSTEAD 24 HR Interval Summary Constitutional: improved, no complaints Detailed Summary Respiratory: no complaints Cardiovascular: no complaints Gastrointestinal: no complaints Genitourinary: no complaints Musculoskeletal: no complaints Neurologic: no complaints Exam/Review of Systems Vital Signs Vitals VS - Last 72 Hours, by Label Date Time Temp Pulse Resp B/P Pulse Ox O2 Delivery O2 Flow Rate FiO2 02/03/17 12:24 97 02/03/17 11:22 97.9 95 18 103/53 94 02/03/17 09:14 91 02/03/17 08:00 Nasal Cannula 2.0 02/03/17 07:32 98.2 89 17 116/58 96 02/03/17 04:31 88 02/03/17 04:09 98.7 85 16 113/57 96 02/03/17 04:08 2.0 02/03/17 00:24 90 02/02/17 23:58 98.9 96 16 118/55 95 02/02/17 20:59 2.0 02/02/17 20:31 100 02/02/17 20:00 Nasal Cannula 2.0 02/02/17 19:39 98.6 61 16 112/56 98 02/02/17 18:50 136 102/57 02/02/17 16:26 103 02/02/17 15:57 2.0 02/02/17 12:22 108 02/02/17 11:15 98.4 62 19 106/59 94 02/02/17 09:01 108 02/02/17 08:00 Nasal Cannula 2.0 02/02/17 07:09 98.1 98 17 115/58 96 02/02/17 04:35 98.8 86 18 118/55 99 02/02/17 04:26 96 02/02/17 02:07 2.0 02/02/17 00:52 98 02/02/17 00:00 98.9 99 18 118/57 98 02/01/17 22:06 2.0 02/01/17 20:24 100 02/01/17 20:11 99.1 88 18 113/55 97 02/01/17 20:00 Nasal Cannula 2.0 02/01/17 17:00 101 27 107/73 97 Nasal Cannula 2.0 02/01/17 16:00 99.1 102 24 109/53 97 Nasal Cannula 2.0 02/01/17 16:00 100 02/01/17 15:00 103 21 117/56 100 Nasal Cannula 2.0 02/01/17 14:01 106 24 119/54 96 Nasal Cannula 2.0 02/01/17 13:03 102 27 91/48 99 Nasal Cannula 2.0 02/01/17 12:00 105 27 112/51 96 Nasal Cannula 2.0 02/01/17 12:00 101 02/01/17 11:00 100 20 102/57 96 Nasal Cannula 2.0 02/01/17 10:00 106 33 108/74 Nasal Cannula 2.0 02/01/17 09:00 105 31 106/60 98 Nasal Cannula 2.0 02/01/17 08:02 21 91/38 97 Nasal Cannula 2.0 02/01/17 08:00 102 20 78/33 97 Nasal Cannula 2.0 02/01/17 08:00 98 02/01/17 08:00 Nasal Cannula 2.0 02/01/17 07:00 103 23 116/54 99 Nasal Cannula 2.0 02/01/17 06:00 104 23 111/49 95 Nasal Cannula 2.0 02/01/17 05:00 101 19 99/55 98 Nasal Cannula 2.0 02/01/17 04:00 99.2 101 18 124/56 99 Nasal Cannula 2.0 02/01/17 04:00 104 02/01/17 03:00 104 19 109/55 97 Nasal Cannula 2.0 02/01/17 02:06 97 2.0 27 02/01/17 02:00 105 20 107/49 97 Nasal Cannula 2.0 02/01/17 01:35 105 20 97 2.0 27 02/01/17 01:00 102 19 107/50 95 Nasal Cannula 2.0 02/01/17 00:00 109 02/01/17 00:00 99.0 107 23 98/44 95 Nasal Cannula 2.0 01/31/17 23:00 107 20 119/57 95 Nasal Cannula 2.0 01/31/17 22:00 111 22 100/38 95 Nasal Cannula 2.0 01/31/17 21:00 119 22 93/45 96 Nasal Cannula 2.0 01/31/17 20:00 Nasal Cannula 2.0 01/31/17 20:00 97 2.0 27 01/31/17 20:00 99.9 112 30 114/55 100 Room Air 01/31/17 20:00 103 22 97 2.0 27 01/31/17 20:00 109 01/31/17 18:00 111 32 111/56 93 Room Air 01/31/17 17:00 114 27 100/58 95 Room Air 01/31/17 16:00 98.4 108 23 113/58 96 Nasal Cannula 2.0 01/31/17 16:00 105 01/31/17 15:00 109 22 116/62 97 Nasal Cannula 2.0 01/31/17 14:00 109 26 110/56 98 Nasal Cannula 2.0 Vital Signs Date Time Temp Pulse Resp B/P Pulse Ox O2 Delivery O2 Flow Rate FiO2 02/03/17 12:24 97 02/03/17 11:22 97.9 18 103/53 94 02/03/17 08:00 Nasal Cannula 2.0 02/01/17 02:06 27 Intake and Output 02/02/17 02/02/17 02/03/17 15:00 23:00 07:00 Intake Total 900 ml 366 ml Balance 900 ml 366 ml Exam Constitutional: alert, oriented, well developed Psych: nl mood/affect, no complaints Respiratory: clear to auscultation, normal air movement Cardiovascular: nl pulses, regular rate and rhythm, No edema, No murmurs/extra sounds, No rub Gastrointestinal: nl liver, spleen, non-tender, soft, No bowel sounds, No mass, No rebound or guarding Musculoskeletal: nl extremities to inspection, nl gait and stance Extremities: normal pulses, No clubbing, No cyanosis, No edema 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: [employer]ATOR II-XII intact, nl mental status, nl speech, nl strength Additional Comments Bedside Glucose - 72 Hours Test 01/31/17 18:11 01/31/17 20:56 02/01/17 04:05 02/01/17 08:11 Bedside Glucose 157mg/dL (70-220) 83mg/dL (70-220) 186mg/dL (70-220) 236mg/dL (70-220) H Test 02/01/17 12:07 02/01/17 17:20 02/01/17 20:14 02/02/17 08:20 Bedside Glucose 209mg/dL (70-220) 123mg/dL (70-220) 124mg/dL (70-220) 80mg/dL (70-220) Test 02/02/17 12:15 02/02/17 12:48 02/02/17 17:31 02/02/17 20:49 Bedside Glucose 70mg/dL (70-220) 119mg/dL (70-220) 126mg/dL (70-220) 78mg/dL (70-220) Test 02/02/17 22:10 02/03/17 08:28 02/03/17 10:49 02/03/17 12:32 Bedside Glucose 92mg/dL (70-220) 149mg/dL (70-220) 233mg/dL (70-220) H 147mg/dL (70-220) Results Result Diagram: 02/02/17 0719 02/02/17 0731 Results 24 hrs Laboratory Tests Test 02/02/17 17:31 02/02/17 20:49 02/02/17 22:10 02/03/17 08:28 Bedside Glucose 126 78 92 149 Test 02/03/17 10:49 02/03/17 12:32 Bedside Glucose 233 H 147 Medications Medications Current Medications Acetaminophen (Tylenol Tab) 650 mg Q6H PRN PO PAIN LEVEL 1-3 OR FEVER; Start at 11:30 Acetaminophen (Tylenol Supp) 650 mg Q6H PRN [place] PAIN LEVEL 1-3 OR FEVER; Start 01/06/17 at 11:30 Aspirin (Halfprin) 81 mg DAILY PO Last administered on 02/03/17 08:42; Admin Dose 81 MG; Start 01/07/17 at 09:00 Duloxetine HCl (Cymbalta) 20 mg DAILY PO Last administered on 02/03/17 08:40; Admin Dose 20 MG; Start 01/07/17 at 09:00 Gabapentin (Neurontin) 300 mg TID PO Last administered on 02/03/17 12:39; Admin Dose 300 MG; Start 01/06/17 at 13:00 Metoprolol Tartrate (Lopressor) 12.5 mg BID PO ; Start 01/06/17 at 21:00; Status Future Hold Furosemide (Lasix) 20 mg DAILY PO ; Start 01/07/17 at 09:00; Status Future Hold Bisacodyl (Dulcolax Supp) 10 mg DAILY PRN [place] CONSTIPATION; Start 01/06/17 at 11 :30 Guaifenesin (Robitussin Liquid Cup) 100 mg Q6H PRN PO COUGH Last administered on 01/08/17 07:54; Admin Dose 100 MG; Start 01/06/17 at 11:30 Levothyroxine Sodium (Synthroid) 112 mcg DAILY@06 PO Last administered on 06:33; Admin Dose 112 MCG; Start 01/07/17 at 06:00 Lisinopril (Zestril) 2.5 mg DAILY PO Last administered on 02/03/17 08:42; Admin Dose 2.5 MG; Start 01/07/17 at 09:00 Senna (Senokot) 2 tab HS PO Last administered on 02/02/17 20:53; Admin Dose 2 TAB; Start 01/06/17 at 21:00 Atorvastatin Calcium (Lipitor) 40 mg HS PO Last administered on 02/02/17 20:54 ; Admin Dose 40 MG; Start 01/14/17 at 21:00 Alendronate Sodium (Fosamax) 70 mg [place]@0630 PO Last administered on 01/21/17 07: 00; Admin Dose 70 MG; Start 01/21/17 at 06:30 Polyethylene Glycol (Miralax) 17 gm DAILY PRN PO constipation; Start 01/20/17 at 18:30 Insulin Glargine (Lantus) 13 unit DAILY@08 SC Last administered on 02/03/17 08 :36; Admin Dose 13 UNIT; Start 01/22/17 at 08:00; Status Future hold Morphine Sulfate (morphine) 1 mg Q2 PRN IV PAIN LEVEL 1-5 Last administered on 01/30/17 10:28; Admin Dose 1 MG; Start 01/26/17 at 14:00 Morphine Sulfate (morphine) 2 mg Q2 PRN IV PAIN LEVEL 6-10 Last administered on 02/01/17 22:25; Admin Dose 2 MG; Start 01/26/17 at 14:00 Ondansetron HCl (Zofran Inj) 4 mg Q6H PRN IV NAUSEA AND/OR VOMITING; Start at 14:00 Dextrose (D50w Syringe) 25 ml Q15M PRN IV Till BS 80 mg/dL or above x2; Start 01/26/17 at 20:30 Dextrose (D50w Syringe) 50 ml Q15M PRN IV Till BS 80 mg/dL or above x2 Last administered on 01/31/17 04:36; Admin Dose 50 ML; Start 01/26/17 at 20:30 Docusate Sodium (Colace) 100 mg BID PO Last administered on 02/03/17 08:41; Admin Dose 100 MG; Start 01/29/17 at 21:00 Acetaminophen/ Hydrocodone Bitart ([place] (5/325)) 1 tab Q6H PRN PO PAIN Last administered on 02/02/17 22:55; Admin Dose 1 TAB; Start 02/01/17 at 09:00 Ticagrelor (Brilinta) 90 mg BID PO Last administered on 02/03/17 08:44; Admin Dose 90 MG; Start 02/02/17 at 12:00 Insulin Human NPH 7 unit 7 unit DAILY@20 SC ; Start 02/02/17 at 20:00 Amiodarone HCl/ Dextrose (Cordarone Iv/ D5W) 500 ml @ 0 mls/hr Q0M IV Last administered on 02/03/17 02:05; Admin Dose 16.7 MLS/HR; Start 02/02/17 at 19:30 Enoxaparin Sodium (Lovenox) 45 mg BID SC Last administered on 02/03/17t 08:39; Admin Dose 45 MG; Start 02/02/17 at 19:45 Furosemide (Lasix) 40 mg DAILY IV ; Start 02/03/17 at 14:00 DARYL MYERS MD Feb 03, 2017 13:55
[2017-02-03] MEDS: FUROSEMIDE 40 MG INJ IV SCH (14:56)
--- NOTE | 2017-02-03 15:58 | PN ---
Date/Time of Note Date/Time of Note DATE: 02/03/17 TIME: 15:50 Assessment/Plan VTE Prophylaxis VTE Prophylaxis Intervention: SCD's Lines/Catheters IV Catheter Type (from Nrsg): Peripheral IV Urinary Cath still in place: No Assessment/Plan Assessment/Plan 56 yo F with poorly controlled DM2 admitted for NSTEMI in setting DKA. Found to have multivessel CAD, s/p CABG 8.15. 1. multivessel CAD s/p CABG 8.15 2. L subglottic lesion-outpatient ENT f/u 3. DM:-endo following 4. Hypothyroidism.-Continue Synthroid. 5. AFib with RVR: meds as per cardiology. ATC as per cardiology 6. dysphagia: S T following 7. systolic HF: cont lasix, monitor Cr closely. Consider changing to PO soon PT eval for dispo planning new ARU cs placed DVT prophylaxis: SCD's Subjective 24 Hr Interval Summary Free Text/Dictation had some RVR overnight, meds adjusted by cardiology Exam/Review of Systems Vital Signs Vitals Vital Signs Date Time Temp Pulse Resp B/P Pulse Ox O2 Delivery O2 Flow Rate FiO2 02/03/17 15:22 98.1 101 18 122/59 97 02/03/17 15:19 2.0 02/03/17 08:00 Nasal Cannula 02/01/17 02:06 27 Intake and Output 02/02/17 02/02/17 02/03/17 15:00 23:00 07:00 Intake Total 900 ml 366 ml Balance 900 ml 366 ml Exam nad, pleasant no mrg abd soft no rashes no edema Results Result Diagram: 02/02/17 0719 02/02/17 0731 Results 24 hrs Laboratory Tests Test 02/02/17 17:31 02/02/17 20:49 02/02/17 22:10 02/03/17 08:28 Bedside Glucose 126 78 92 149 Test 02/03/17 10:49 02/03/17 12:32 Bedside Glucose 233 H 147 Medications Medications Current Medications Acetaminophen (Tylenol Tab) 650 mg Q6H PRN PO PAIN LEVEL 1-3 OR FEVER; Start at 11:30 Acetaminophen (Tylenol Supp) 650 mg Q6H PRN [place] PAIN LEVEL 1-3 OR FEVER; Start 01/06/17 at 11:30 Aspirin (Halfprin) 81 mg DAILY PO Last administered on 02/03/17 08:42; Admin Dose 81 MG; Start 01/07/17 at 09:00 Duloxetine HCl (Cymbalta) 20 mg DAILY PO Last administered on 02/03/17 08:40; Admin Dose 20 MG; Start 01/07/17 at 09:00 Gabapentin (Neurontin) 300 mg TID PO Last administered on 02/03/17 12:39; Admin Dose 300 MG; Start 01/06/17 at 13:00 Metoprolol Tartrate (Lopressor) 12.5 mg BID PO ; Start 01/06/17 at 21:00; Status Future Hold Furosemide (Lasix) 20 mg DAILY PO ; Start 01/07/17 at 09:00; Status Future Hold Bisacodyl (Dulcolax Supp) 10 mg DAILY PRN [place] CONSTIPATION Last administered on 02/03/17 14:56; Admin Dose 10 MG; Start 01/06/17 at 11:30 Guaifenesin (Robitussin Liquid Cup) 100 mg Q6H PRN PO COUGH Last administered on 01/08/17 07:54; Admin Dose 100 MG; Start 01/06/17 at 11:30 Levothyroxine Sodium (Synthroid) 112 mcg DAILY@06 PO Last administered on 06:33; Admin Dose 112 MCG; Start 01/07/17 at 06:00 Lisinopril (Zestril) 2.5 mg DAILY PO Last administered on 01/29/17 09:00; Admin Dose 2.5 MG; Start 01/07/17 at 09:00 Senna (Senokot) 2 tab HS PO Last administered on 02/02/17 20:53; Admin Dose 2 TAB; Start 01/06/17 at 21:00 Atorvastatin Calcium (Lipitor) 40 mg HS PO Last administered on 02/02/17 20:54 ; Admin Dose 40 MG; Start 01/14/17 at 21:00 Alendronate Sodium (Fosamax) 70 mg We@0630 PO Last administered on 01/21/17 07: 00; Admin Dose 70 MG; Start 01/21/17 at 06:30 Polyethylene Glycol (Miralax) 17 gm DAILY PRN PO constipation; Start 01/20/17 at 18:30 Insulin Glargine (Lantus) 13 unit DAILY@08 SC Last administered on 02/03/17 08 :36; Admin Dose 13 UNIT; Start 01/22/17 at 08:00; Status Future hold Morphine Sulfate (morphine) 1 mg Q2 PRN IV PAIN LEVEL 1-5 Last administered on 01/30/17 10:28; Admin Dose 1 MG; Start 01/26/17 at 14:00 Morphine Sulfate (morphine) 2 mg Q2 PRN IV PAIN LEVEL 6-10 Last administered on 02/01/17 22:25; Admin Dose 2 MG; Start 01/26/17 at 14:00 Ondansetron HCl (Zofran Inj) 4 mg Q6H PRN IV NAUSEA AND/OR VOMITING; Start at 14:00 Dextrose (D50w Syringe) 25 ml Q15M PRN IV Till BS 80 mg/dL or above x2; Start 01/26/17 at 20:30 Dextrose (D50w Syringe) 50 ml Q15M PRN IV Till BS 80 mg/dL or above x2 Last administered on 01/31/17 04:36; Admin Dose 50 ML; Start 01/26/17 at 20:30 Docusate Sodium (Colace) 100 mg BID PO Last administered on 02/03/17 08:41; Admin Dose 100 MG; Start 01/29/17 at 21:00 Acetaminophen/ Hydrocodone Bitart ([place] (5/325)) 1 tab Q6H PRN PO PAIN Last administered on 02/02/17 22:55; Admin Dose 1 TAB; Start 02/01/17 at 09:00 Ticagrelor (Brilinta) 90 mg BID PO Last administered on 02/03/17 08:44; Admin Dose 90 MG; Start 02/02/17 at 12:00 Insulin Human NPH 7 unit 7 unit DAILY@20 SC ; Start 02/02/17 at 20:00 Amiodarone HCl/ Dextrose (Cordarone Iv/ D5W) 500 ml @ 0 mls/hr Q0M IV Last administered on 02/03/17 02:05; Admin Dose 16.7 MLS/HR; Start 02/02/17 at 19:30 Enoxaparin Sodium (Lovenox) 45 mg BID SC Last administered on 02/03/17 08:39; Admin Dose 45 MG; Start 02/02/17 at 19:45 Furosemide (Lasix) 40 mg DAILY IV Last administered on 02/03/17t 14:56; Admin Dose 40 MG; Start 02/03/17 at 14:00 ROBEL PETTY MD Feb 03, 2017 15:58
--- NOTE | 2017-02-03 18:00 | PN ---
DATE: 02/03/2017 SUBJECTIVE DATA: The patient's pulse remained stable. Sitting up in bed, comfortable. Denies any chest pain, or shortness of breath. OBJECTIVE DATA: VITAL SIGNS: Temperature 98, pulse 97, blood pressure 103/53, O2 sat 96 percent on 2 L nasal cannula. NECK: Supple. No JVD. No lymphadenopathy. HEART: S1, S2. No added sounds or murmurs. CHEST: Diminished air entry, left greater than right lung base. ABDOMEN: Soft, nontender. No guarding or rebound. EXTREMITIES: No cyanosis, clubbing, or edema. NEUROLOGIC: Generalized weakness. LABORATORY AND DIAGNOSTIC DATA: White count 10.2, hemoglobin 11.9, platelets of 383. Chemistry pending. Chest x-ray shows ongoing congestive cardiac failure. IMPRESSION: 1. Coronary artery disease status post multivessel coronary artery bypass graft surgery. 2. Congestive cardiac failure with worsening pleural effusions. 3. Underlying history of severe chronic obstructive pulmonary disease. 4. Significant deconditioning. PLAN: 1. Patient will require IV diuretics. 2. Continue glycemic management. 3. Physical therapy. Encourage out of bed. 4. Rate control per Cardiology. 5. DVT and GI prophylaxis. Dictated By: Mukesh Sanz MD /[email or web address]/johnson /Document#: [id number]
[2017-02-03] MEDS: SENNA TAB PO SCH (20:29)
[2017-02-03] MEDS: ATORVASTATIN 40 MG TAB PO SCH (20:29)
[2017-02-03] MEDS: NPH, HUMAN INSULIN ISOPHANE 3ML VIAL SC SCH (20:42)
[2017-02-03] MEDS: HYDROCODONE/APAP (5/325) TAB PO PRN (22:49)
[2017-02-04] VITALS (12 sets, daily range): BP systolic 98–108; BP diastolic 50–69; PULSE 90–103; RESP 16–20
[2017-02-04] MEDS: LEVOTHYROXINE 112 MCG TAB PO SCH (06:32)
[2017-02-04 07:06] LABS: BASOPHIL # 0.1 10^3/ul (0.0-0.1); BASOPHILS % 0.9 % (0.0-2.0); EOSINOPHILS % 18.4 % (0.0-7.0); HEMATOCRIT 38.4 % (37.0-47.0); HEMOGLOBIN 12.2 g/dl (12.0-16.0); LYMPHOCYTES # 1.8 10^3/ul (0.8-2.9); LYMPHOCYTES % 16.4 % (15.0-51.0); MEAN CORPUSCULAR HEMOGLOBIN 29.5 pg (29.0-33.0); MEAN CORPUSCULAR HGB CONC 31.8 g/dl (32.0-37.0); MEAN CORPUSCULAR VOLUME 92.8 fl (82.0-101.0); MEAN PLATELET VOLUME 9.3 fl (7.4-10.4); MONOCYTES % 9.1 % (0.0-11.0); NEUTROPHILS % 54.6 % (39.0-77.0); PLATELET COUNT 457 10^3/UL (140-415); RED BLOOD COUNT 4.14 10^6/ul (4.20-5.40); RED CELL DISTRIBUTION WIDTH 15.3 % (11.5-14.5); WHITE BLOOD COUNT 10.9 10^3/ul (4.8-10.8)
[2017-02-04 07:15] LABS: CALCIUM 9.3 mg/dl (8.4-10.2); CREATININE 0.54 mg/dl (0.44-1.00); PHOSPHORUS 4.7 mg/dl (2.5-4.9); POTASSIUM 4.3 mmol/L (3.5-5.1)
[2017-02-04] MEDS: INSULIN ASPART [NOVOLOG] 3 ML PEN SC SCH ×7 (07:55→22:15)
[2017-02-04] MEDS: DULOXETINE 20 MG CAP DR PO SCH (08:28)
[2017-02-04] MEDS: GABAPENTIN 300 MG CAP PO SCH ×3 (08:28→22:02)
[2017-02-04] MEDS: ALENDRONATE 70 MG TAB PO SCH (08:28)
[2017-02-04] MEDS: ASPIRIN (EC) 81 MG TAB PO SCH (08:28)
[2017-02-04] MEDS: DOCUSATE SODIUM 100 MG CAP PO SCH ×2 (08:28→22:01)
[2017-02-04] MEDS: FUROSEMIDE 40 MG INJ IV SCH (08:29)
[2017-02-04] MEDS: INSULIN GLARGINE [LANtus] 3 ML PEN SC SCH (08:32)
[2017-02-04] MEDS: LISINOPRIL 5 MG TAB PO SCH (09:00)
[2017-02-04] MEDS: ENOXAPARIN 60 MG/0.6 ML SYG SC SCH (09:00)
--- NOTE | 2017-02-04 09:01 | RADRPT ---
PROCEDURE: XR Chest. CLINICAL INDICATION: Dyspnea TECHNIQUE: Single frontal chest x-ray. COMPARISON: 02/02/2017 FINDINGS: Improved aeration in the right lung base with small residual right pleural effusion. There is persi stent moderate left-sided pleural effusion with associated lower lobe air space disease. The heart is enlarged with improved central pulmonary vascular congestion. The patient is status post median sternotomy. There is no pneumothorax. The osseous structures are intact. IMPRESSION: 1. Persistent moderate left-sided pleural effusion with associated lower lobe air space disease. 2. Improved aeration in the right lower lung with minimal residual right-sided pleural effusion. 3. Cardiomegaly with improving pulmonary vascular congestion. RPTAT: [facility] .Arturo Cintron MD, MD Date Time Electronically viewed and signed by .Arturo Cintron MD, on 02/04/2017 09:01 .O/
[2017-02-04] MEDS: TICAGRELOR 90 MG TABLET PO SCH ×2 (09:04→22:07)
--- NOTE | 2017-02-04 12:45 | CONS ---
Date/Time of Note Date/Time of Note DATE: 02/04/17 TIME: 12:42 Assessment/Plan Assessment/Plan Chief Complaint/Hosp Course IMP: 1.NSTEMI-peak trop>60 Now dowtrended significantly s/p LHC with patent RCA stents and high grade disease of LAD/LCX with small caliber vessels. Now post- op s/p cabg x 2 2.cardiomyopathy-LVEF 40-45 BY OSH echo. 25% by echo read here 3.Hypotension-borderline. Hold lasix as tolerated 4.resp failure s/p extubation-now stable 5.anemia 6. AMS/encephalopathy 7. PNA-ongoing by chest CT 8. COPD 9. Hypothyroid 10.DM-labile BS 11.Neck mass? with dysphagia. Now s/p bronch with findings of subglottic mass. Now per ENT decreasing in size and thinks possibly secondary to extended intubation 12. carotid stenosis 14. Pleural effusion Recc: -Tele -Continue acei as tolerated -Continue asa -Continue brilinta. -Continue statin -Smoking cessation -Follow BS closely -Continue abx's and f/u cx data -Continue bronchodilators -Follow volume status closely on daily lasix -PT -Consider thoracentesis Problems: Consultation Date/Type/Reason Admit Date/Time Jan 06, 2017 at 10:49 Initial Consult Date 01/06/2017 Type of Consultation: cardiology Reason for Consultation Nstemi Referring Provider: TANIYA OLMSTEAD Exam/Review of Systems Vital Signs Vitals Vital Signs Date Time Temp Pulse Resp B/P Pulse Ox O2 Delivery O2 Flow Rate FiO2 02/04/17 12:19 100 02/04/17 12:08 2.0 02/04/17 08:08 98.1 18 102/54 96 02/04/17 08:00 Nasal Cannula 02/01/17 02:06 27 Intake and Output 02/03/17 02/03/17 02/04/17 15:00 23:00 07:00 Intake Total 984 ml 360 ml Balance 984 ml 360 ml Exam Review of Systems: CONSTITUTIONAL: No fevers, chills. PULMONARY: No sob CARDIOVASCULAR:Mild pain at sternotomy site GASTROINTESTINAL: No nausea/vomiting. GENITOURINARY: No hematuria/dysuria. MUSCULOSKELETAL: No myagias/arthalgias. PSYCHIATRIC: The patient denies depression. NEUROLOGIC: No weakness Constitutional: alert Psych: no complaints Head: normocephalic ENMT: mucosa pink and moist Neck: jvd (9 cm water), supple Respiratory: diminished breath sounds Cardiovascular: other (sternotomy site c/d/i), regular rate and rhythm Gastrointestinal: non-tender, soft Musculoskeletal: muscle tone (normal) Extremities: edema (none) 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: other (No focal deficits) Results Result Diagram: 02/04/17 0606 02/04/17 0606 Results 24 hrs Laboratory Tests Test 02/03/17 17:47 02/03/17 20:19 02/04/17 02:34 02/04/17 06:06 Bedside Glucose 106 104 80 White Blood Count 10.9 H Red Blood Count 4.14 L Hemoglobin 12.2 Hematocrit 38.4 Mean Corpuscular Volume 92.8 Mean Corpuscular Hemoglobin 29.5 Mean Corpuscular Hemoglobin Concent 31.8 L Red Cell Distribution Width 15.3 H Platelet Count 457 H Mean Platelet Volume 9.3 Neutrophils % 54.6 Lymphocytes % 16.4 Monocytes % 9.1 Eosinophils % 18.4 H Basophils % 0.9 Nucleated Red Blood Cells % 0.0 Neutrophils # (Manual) 6 Lymphocytes # 1.8 Monocytes # 1.0 H Eosinophils # 2.0 H Basophils # 0.1 Nucleated Red Blood Cells # 0.0 Sodium Level 144 Potassium Level 4.3 Chloride Level 96 L Carbon Dioxide Level 35 H Anion Gap 17 H Blood Urea Nitrogen 12 Creatinine 0.54 Glucose Level 82 Calcium Level 9.3 Phosphorus Level 4.7 Magnesium Level 2.0 Test 02/04/17 08:17 Bedside Glucose 112 Medications Medications Current Medications Acetaminophen (Tylenol Tab) 650 mg Q6H PRN PO PAIN LEVEL 1-3 OR FEVER; Start at 11:30 Acetaminophen (Tylenol Supp) 650 mg Q6H PRN [place] PAIN LEVEL 1-3 OR FEVER; Start 01/06/17 at 11:30 Aspirin (Halfprin) 81 mg DAILY PO Last administered on 02/04/17 08:28; Admin Dose 81 MG; Start 01/07/17 at 09:00 Duloxetine HCl (Cymbalta) 20 mg DAILY PO Last administered on 02/04/17 08:28; Admin Dose 20 MG; Start 01/07/17 at 09:00 Gabapentin (Neurontin) 300 mg TID PO Last administered on 02/04/17 08:28; Admin Dose 300 MG; Start 01/06/17 at 13:00 Metoprolol Tartrate (Lopressor) 12.5 mg BID PO ; Start 01/06/17 at 21:00; Status Future Hold Furosemide (Lasix) 20 mg DAILY PO ; Start 01/07/17 at 09:00; Status Future Hold Bisacodyl (Dulcolax Supp) 10 mg DAILY PRN [place] CONSTIPATION Last administered on 02/03/17 14:56; Admin Dose 10 MG; Start 01/06/17 at 11:30 Guaifenesin (Robitussin Liquid Cup) 100 mg Q6H PRN PO COUGH Last administered on 01/08/17 07:54; Admin Dose 100 MG; Start 01/06/17 at 11:30 Levothyroxine Sodium (Synthroid) 112 mcg DAILY@06 PO Last administered on 06:32; Admin Dose 112 MCG; Start 01/07/17 at 06:00 Lisinopril (Zestril) 2.5 mg DAILY PO Last administered on 01/29/17 09:00; Admin Dose 2.5 MG; Start 01/07/17 at 09:00 Senna (Senokot) 2 tab HS PO Last administered on 02/03/17 20:29; Admin Dose 2 TAB; Start 01/06/17 at 21:00 Atorvastatin Calcium (Lipitor) 40 mg HS PO Last administered on 02/03/17 20:29 ; Admin Dose 40 MG; Start 01/14/17 at 21:00 Alendronate Sodium (Fosamax) 70 mg We@0630 PO Last administered on 02/04/17 08 :28; Admin Dose 70 MG; Start 01/21/17 at 06:30 Polyethylene Glycol (Miralax) 17 gm DAILY PRN PO constipation; Start 01/20/17 at 18:30 Insulin Glargine (Lantus) 13 unit DAILY@08 SC Last administered on 02/04/17 08 :32; Admin Dose 13 UNIT; Start 01/22/17 at 08:00; Status Future hold Morphine Sulfate (morphine) 1 mg Q2 PRN IV PAIN LEVEL 1-5 Last administered on 01/30/17 10:28; Admin Dose 1 MG; Start 01/26/17 at 14:00 Morphine Sulfate (morphine) 2 mg Q2 PRN IV PAIN LEVEL 6-10 Last administered on 02/01/17 22:25; Admin Dose 2 MG; Start 01/26/17 at 14:00 Ondansetron HCl (Zofran Inj) 4 mg Q6H PRN IV NAUSEA AND/OR VOMITING; Start at 14:00 Dextrose (D50w Syringe) 25 ml Q15M PRN IV Till BS 80 mg/dL or above x2; Start 01/26/17 at 20:30 Dextrose (D50w Syringe) 50 ml Q15M PRN IV Till BS 80 mg/dL or above x2 Last administered on 01/31/17 04:36; Admin Dose 50 ML; Start 01/26/17 at 20:30 Docusate Sodium (Colace) 100 mg BID PO Last administered on 02/04/17 08:28; Admin Dose 100 MG; Start 01/29/17 at 21:00 Acetaminophen/ Hydrocodone Bitart ([place] (5/325)) 1 tab Q6H PRN PO PAIN Last administered on 02/03/17 22:49; Admin Dose 1 TAB; Start 02/01/17 at 09:00 Ticagrelor (Brilinta) 90 mg BID PO Last administered on 02/04/17 09:04; Admin Dose 90 MG; Start 02/02/17 at 12:00 Insulin Human NPH 7 unit 7 unit DAILY@20 SC Last administered on 02/03/17 20: 42; Admin Dose 7 UNIT; Start 02/02/17 at 20:00 Amiodarone HCl/ Dextrose (Cordarone Iv/ D5W) 500 ml @ 0 mls/hr Q0M IV Last administered on 02/03/17 02:05; Admin Dose 16.7 MLS/HR; Start 02/02/17 at 19:30 Enoxaparin Sodium (Lovenox) 45 mg BID SC Last administered on 02/03/17 20:31; Admin Dose 45 MG; Start 02/02/17 at 19:45 Furosemide (Lasix) 40 mg DAILY IV Last administered on 02/04/17 08:29; Admin Dose 40 MG; Start 02/03/17 at 14:00 RHONDA PENA Feb 04, 2017 12:45
[2017-02-04] MEDS: HYDROCODONE/APAP (5/325) TAB PO PRN (13:39)
--- NOTE | 2017-02-04 15:20 | CONS ---
Date/Time of Note Date/Time of Note DATE: 02/04/17 TIME: 15:19 Consult Date/Type/Reason Admit Date/Time Jan 06, 2017 at 10:49 Type of Consultation: Pulm Ordering Provider: TANIYA OLMSTEAD Subjective Somewhat better today. Objective Vital Signs Date Time Temp Pulse Resp B/P Pulse Ox O2 Delivery O2 Flow Rate FiO2 02/04/17 12:43 98.1 98 18 100/52 96 02/04/17 12:08 2.0 02/04/17 08:00 Nasal Cannula 02/01/17 02:06 27 Intake and Output 02/03/17 02/03/17 02/04/17 15:00 23:00 07:00 Intake Total 984 ml 360 ml Balance 984 ml 360 ml Exam OBJECTIVE DATA: VITAL SIGNS: NECK: Supple. No JVD. No lymphadenopathy. HEART: S1, S2. No added sounds or murmurs. CHEST: Diminished air entry, left greater than right lung base. ABDOMEN: Soft, nontender. No guarding or rebound. EXTREMITIES: No cyanosis, clubbing, or edema. NEUROLOGIC: Generalized weakness. Results/Medications Result Diagram: 02/04/17 0606 02/04/17 0606 Results 24 hrs Laboratory Tests Test 02/03/17 17:47 02/03/17 20:19 02/04/17 02:34 02/04/17 06:06 Bedside Glucose 106 104 80 White Blood Count 10.9 H Red Blood Count 4.14 L Hemoglobin 12.2 Hematocrit 38.4 Mean Corpuscular Volume 92.8 Mean Corpuscular Hemoglobin 29.5 Mean Corpuscular Hemoglobin Concent 31.8 L Red Cell Distribution Width 15.3 H Platelet Count 457 H Mean Platelet Volume 9.3 Neutrophils % 54.6 Lymphocytes % 16.4 Monocytes % 9.1 Eosinophils % 18.4 H Basophils % 0.9 Nucleated Red Blood Cells % 0.0 Neutrophils # (Manual) 6 Lymphocytes # 1.8 Monocytes # 1.0 H Eosinophils # 2.0 H Basophils # 0.1 Nucleated Red Blood Cells # 0.0 Sodium Level 144 Potassium Level 4.3 Chloride Level 96 L Carbon Dioxide Level 35 H Anion Gap 17 H Blood Urea Nitrogen 12 Creatinine 0.54 Glucose Level 82 Calcium Level 9.3 Phosphorus Level 4.7 Magnesium Level 2.0 Test 02/04/17 08:17 02/04/17 12:55 02/04/17 14:15 Bedside Glucose 112 84 Total Protein 6.5 Medications Current Medications Acetaminophen (Tylenol Tab) 650 mg Q6H PRN PO PAIN LEVEL 1-3 OR FEVER; Start at 11:30 Acetaminophen (Tylenol Supp) 650 mg Q6H PRN [place] PAIN LEVEL 1-3 OR FEVER; Start 01/06/17 at 11:30 Aspirin (Halfprin) 81 mg DAILY PO Last administered on 02/04/17 08:28; Admin Dose 81 MG; Start 01/07/17 at 09:00 Duloxetine HCl (Cymbalta) 20 mg DAILY PO Last administered on 02/04/17 08:28; Admin Dose 20 MG; Start 01/07/17 at 09:00 Gabapentin (Neurontin) 300 mg TID PO Last administered on 02/04/17 13:40; Admin Dose 300 MG; Start 01/06/17 at 13:00 Metoprolol Tartrate (Lopressor) 12.5 mg BID PO ; Start 01/06/17 at 21:00; Status Future Hold Furosemide (Lasix) 20 mg DAILY PO ; Start 01/07/17 at 09:00; Status Future Hold Bisacodyl (Dulcolax Supp) 10 mg DAILY PRN [place] CONSTIPATION Last administered on 02/03/17 14:56; Admin Dose 10 MG; Start 01/06/17 at 11:30 Guaifenesin (Robitussin Liquid Cup) 100 mg Q6H PRN PO COUGH Last administered on 01/08/17 07:54; Admin Dose 100 MG; Start 01/06/17 at 11:30 Levothyroxine Sodium (Synthroid) 112 mcg DAILY@06 PO Last administered on 06:32; Admin Dose 112 MCG; Start 01/07/17 at 06:00 Lisinopril (Zestril) 2.5 mg DAILY PO Last administered on 01/29/17 09:00; Admin Dose 2.5 MG; Start 01/07/17 at 09:00 Senna (Senokot) 2 tab HS PO Last administered on 02/03/17 20:29; Admin Dose 2 TAB; Start 01/06/17 at 21:00 Atorvastatin Calcium (Lipitor) 40 mg HS PO Last administered on 02/03/17 20:29 ; Admin Dose 40 MG; Start 01/14/17 at 21:00 Alendronate Sodium (Fosamax) 70 mg We@0630 PO Last administered on 02/04/17 08 :28; Admin Dose 70 MG; Start 01/21/17 at 06:30 Polyethylene Glycol (Miralax) 17 gm DAILY PRN PO constipation; Start 01/20/17 at 18:30 Insulin Glargine (Lantus) 13 unit DAILY@08 SC Last administered on 02/04/17 08 :32; Admin Dose 13 UNIT; Start 01/22/17 at 08:00; Status Future hold Morphine Sulfate (morphine) 1 mg Q2 PRN IV PAIN LEVEL 1-5 Last administered on 01/30/17 10:28; Admin Dose 1 MG; Start 01/26/17 at 14:00 Morphine Sulfate (morphine) 2 mg Q2 PRN IV PAIN LEVEL 6-10 Last administered on 02/01/17 22:25; Admin Dose 2 MG; Start 01/26/17 at 14:00 Ondansetron HCl (Zofran Inj) 4 mg Q6H PRN IV NAUSEA AND/OR VOMITING; Start at 14:00 Dextrose (D50w Syringe) 25 ml Q15M PRN IV Till BS 80 mg/dL or above x2; Start 01/26/17 at 20:30 Dextrose (D50w Syringe) 50 ml Q15M PRN IV Till BS 80 mg/dL or above x2 Last administered on 01/31/17 04:36; Admin Dose 50 ML; Start 01/26/17 at 20:30 Docusate Sodium (Colace) 100 mg BID PO Last administered on 02/04/17 08:28; Admin Dose 100 MG; Start 01/29/17 at 21:00 Acetaminophen/ Hydrocodone Bitart ([place] (5/325)) 1 tab Q6H PRN PO PAIN Last administered on 02/04/17 13:39; Admin Dose 1 TAB; Start 02/01/17 at 09:00 Ticagrelor (Brilinta) 90 mg BID PO Last administered on 02/04/17 09:04; Admin Dose 90 MG; Start 02/02/17 at 12:00 Insulin Human NPH 7 unit 7 unit DAILY@20 SC Last administered on 02/03/17 20: 42; Admin Dose 7 UNIT; Start 02/02/17 at 20:00 Amiodarone HCl/ Dextrose (Cordarone Iv/ D5W) 500 ml @ 0 mls/hr Q0M IV Last administered on 02/03/17 02:05; Admin Dose 16.7 MLS/HR; Start 02/02/17 at 19:30 Enoxaparin Sodium (Lovenox) 45 mg BID SC Last administered on 02/04/17 09:00; Admin Dose 45 MG; Start 02/02/17 at 19:45 Furosemide (Lasix) 40 mg DAILY IV Last administered on 02/04/17 08:29; Admin Dose 40 MG; Start 02/03/17 at 14:00 Assessment/Plan Chief Complaint/Hosp Course IMPRESSION: 1. Coronary artery disease status post multivessel coronary artery bypass graft surgery. 2. Congestive cardiac failure with worsening pleural effusions. 3. Underlying history of severe chronic obstructive pulmonary disease. 4. Significant deconditioning. PLAN: 1. Continue diuretics, left lung thoracentesis 2. Continue glycemic management. 3. Physical therapy. Encourage out of bed. 4. Rate control per Cardiology. 5. DVT and GI prophylaxis. 6. Discharge planning Problems: STEFANI GONZALES MD, [facility] Feb 04, 2017 15:20
[2017-02-04] MEDS ORDERED: LIDOCAINE 1% (MPF) 5 ML VIAL ONE (17:04)
--- NOTE | 2017-02-04 17:10 | RADRPT ---
PROCEDURE: US guided left thoracentesis. CLINICAL INDICATION: Shortness of breath. Left pleural effusion. TECHNIQUE: Prior to the procedure, informed consent was obtained. The risks, benefits, and alternatives were e xplained to the patient or the patient's family, including but not limited to bleeding, infection, p ain, visceral or vascular damage, shock, pneumothorax, chest tube placement, air embolism, and . The patient or the patient's family understood the risks and the alternatives and wished to proce ed with the study. Informed written consent was obtained. A procedural pause was performed. The patient's name, date of , and procedure to be performed were verified. Ultrasound of the left hemithorax was performed in the axial and sagittal planes. A left pleural eff usion is noted. Utilizing ultrasound guidance, optimal location for entry to the pleural cavity was ascertained. The overlying skin was prepped and draped in the usual sterile fashion. Approximately 10 ml of 1% Xylocaine was injected locally for pain control. Using ultrasound guidance, a 5-[place] Yueh catheter was introduced into the left pleural space without difficulty. Fluid was aspirated. COMPARISON: None. FINDINGS: Initial ultrasound demonstrates fluid in the left pleural space. Approximately 0.300 liters of sero us fluid was aspirated and sent to the laboratory. IMPRESSION: 1. Satisfactory ultrasound-guided left thoracentesis. RPTAT: QQ .Alonso Brooks MD, Date Time Electronically viewed and signed by .Alonso Brooks MD, on 02/04/2017 17:10 .R/
--- NOTE | 2017-02-04 17:59 | RADRPT ---
PROCEDURE: XR Chest. CLINICAL INDICATION: Shortness of breath. Post left thoracentesis. TECHNIQUE: Single frontal view. COMPARISON: Prior study done earlier the same day para FINDINGS: There is mild right basilar atelectasis and a small right pleural effusion as seen previously. Ther e is moderate left basilar atelectasis and previously noted left pleural effusion is no longer prese nt. The heart size is normal. There are sternal wires and mediastinal clips. There is no pneumothorax. IMPRESSION: 1. No pneumothorax following left thoracentesis. RPTAT: QQ .Alonso Brooks MD, MD Date Time Electronically viewed and signed by .Alonso Brooks MD, on 02/04/2017 17:59 .R/
[2017-02-04] MEDS ORDERED: INSULIN ASPART [NOVOLOG] 3 ML PEN SC ONE (18:00)
[2017-02-04 18:43] LABS: FLD MN% 73.7 %; FLD PMN% 26.3 %; FLD RBC 6 /uL; FLD WBC 1910 /cmm
[2017-02-04 18:59] LABS: FLUID LD 521 U/L; FLUID TYPE FLUID
[2017-02-04 19:00] LABS: FLUID TOTAL PROTEIN 3.4 g/dl
[2017-02-04 19:31] LABS: FLD CLARITY SLIGHTLY HAZY; FLD TYPE THORACENTHESIS; PATH REVIEW? NO
[2017-02-04 19:32] LABS: FLD COLOR YELLOW; FLUID GLUCOSE 56 mg/dl; FLUID TYPE THORACENTESIS FLUID
--- NOTE | 2017-02-04 21:26 | CONS ---
Date/Time of Note Date/Time of Note DATE: 02/04/17 TIME: 21:23 Assessment/Plan Assessment/Plan Problems: (1) Type 1 diabetes mellitus with diabetic polyneuropathy Status: Chronic Comment: Good glycemic control although may be slightly below goal. Consider reducing meal time doses slightly if this continues. Consultation Date/Type/Reason Admit Date/Time Jan 06, 2017 at 10:49 Initial Consult Date 01/14/17 Type of Consultation: Endocrinology Reason for Consultation [address] Referring Provider: TANIYA OLMSTEAD 24 HR Interval Summary Constitutional: improved, no complaints Detailed Summary Respiratory: shortness of breath (s/p thoracentesis today; had DISLA and difficult to tell if this is better since exam.) Cardiovascular: no complaints Gastrointestinal: no complaints Genitourinary: no complaints Musculoskeletal: no complaints Neurologic: no complaints Exam/Review of Systems Vital Signs Vitals VS - Last 72 Hours, by Label Date Time Temp Pulse Resp B/P Pulse Ox O2 Delivery O2 Flow Rate FiO2 02/04/17 20:21 98.3 89 20 108/54 97 02/04/17 20:19 Nasal Cannula 2.0 02/04/17 16:26 103 02/04/17 16:06 98.6 102 18 103/69 95 02/04/17 12:43 98.1 98 18 100/52 96 02/04/17 12:19 100 02/04/17 12:08 2.0 02/04/17 08:20 92 02/04/17 08:08 98.1 94 18 102/54 96 02/04/17 08:00 Nasal Cannula 2.0 02/04/17 04:13 98.2 81 16 98/54 97 02/04/17 04:02 90 02/04/17 01:19 2.0 02/04/17 00:41 98.3 83 16 104/50 96 02/04/17 00:21 95 02/03/17 22:09 Nasal Cannula 2.0 02/03/17 20:08 98.8 99 16 108/59 98 02/03/17 20:00 99 02/03/17 20:00 2.0 02/03/17 16:24 99 02/03/17 15:22 98.1 101 18 122/59 97 02/03/17 15:19 2.0 02/03/17 12:24 97 02/03/17 11:22 97.9 95 18 103/53 94 02/03/17 09:14 91 02/03/17 08:00 Nasal Cannula 2.0 02/03/17 07:32 98.2 89 17 116/58 96 02/03/17 04:31 88 02/03/17 04:09 98.7 85 16 113/57 96 02/03/17 04:08 2.0 02/03/17 00:24 90 02/02/17 23:58 98.9 96 16 118/55 95 02/02/17 20:59 2.0 02/02/17 20:31 100 02/02/17 20:00 Nasal Cannula 2.0 02/02/17 19:39 98.6 61 16 112/56 98 02/02/17 18:50 136 102/57 02/02/17 16:26 103 02/02/17 15:57 2.0 02/02/17 12:22 108 02/02/17 11:15 98.4 62 19 106/59 94 02/02/17 09:01 108 02/02/17 08:00 Nasal Cannula 2.0 02/02/17 07:09 98.1 98 17 115/58 96 02/02/17 04:35 98.8 86 18 118/55 99 02/02/17 04:26 96 02/02/17 02:07 2.0 02/02/17 00:52 98 02/02/17 00:00 98.9 99 18 118/57 98 02/01/17 22:06 2.0 Vital Signs Date Time Temp Pulse Resp B/P Pulse Ox O2 Delivery O2 Flow Rate FiO2 02/04/17 20:21 98.3 89 20 108/54 97 02/04/17 20:19 Nasal Cannula 2.0 02/01/17 02:06 27 Intake and Output 02/03/17 02/03/17 02/04/17 15:00 23:00 07:00 Intake Total 984 ml 360 ml Balance 984 ml 360 ml Exam Constitutional: alert, oriented, well developed Psych: depression Respiratory: clear to auscultation, normal air movement Cardiovascular: nl pulses, regular rate and rhythm, No edema, No murmurs/extra sounds, No rub Gastrointestinal: bowel sounds, nl liver, spleen, non-tender, soft, No mass, No rebound or guarding Musculoskeletal: nl extremities to inspection Extremities: normal pulses, No clubbing, No cyanosis, No edema 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: FIELD CANE SCALER II-XII intact, nl mental status, nl speech, nl strength Additional Comments Bedside Glucose - 72 Hours Test 02/02/17 08:20 02/02/17 12:15 02/02/17 12:48 02/02/17 17:31 Bedside Glucose 80mg/dL (70-220) 70mg/dL (70-220) 119mg/dL (70-220) 126mg/dL (70-220) Test 02/02/17 20:49 02/02/17 22:10 02/03/17 08:28 02/03/17 10:49 Bedside Glucose 78mg/dL (70-220) 92mg/dL (70-220) 149mg/dL (70-220) 233mg/dL (70-220) H Test 02/03/17 12:32 02/03/17 17:47 02/03/17 20:19 02/04/17 02:34 Bedside Glucose 147mg/dL (70-220) 106mg/dL (70-220) 104mg/dL (70-220) 80mg/dL (70-220) Test 02/04/17 08:17 02/04/17 12:55 02/04/17 17:39 Bedside Glucose 112mg/dL (70-220) 84mg/dL (70-220) 70mg/dL (70-220) Results Result Diagram: 02/04/17 0606 02/04/17 0606 Results 24 hrs Laboratory Tests Test 02/04/17 02:34 02/04/17 06:06 02/04/17 08:17 02/04/17 12:55 Bedside Glucose 80 112 84 White Blood Count 10.9 H Red Blood Count 4.14 L Hemoglobin 12.2 Hematocrit 38.4 Mean Corpuscular Volume 92.8 Mean Corpuscular Hemoglobin 29.5 Mean Corpuscular Hemoglobin Concent 31.8 L Red Cell Distribution Width 15.3 H Platelet Count 457 H Mean Platelet Volume 9.3 Neutrophils % 54.6 Lymphocytes % 16.4 Monocytes % 9.1 Eosinophils % 18.4 H Basophils % 0.9 Nucleated Red Blood Cells % 0.0 Neutrophils # (Manual) 6 Lymphocytes # 1.8 Monocytes # 1.0 H Eosinophils # 2.0 H Basophils # 0.1 Nucleated Red Blood Cells # 0.0 Sodium Level 144 Potassium Level 4.3 Chloride Level 96 L Carbon Dioxide Level 35 H Anion Gap 17 H Blood Urea Nitrogen 12 Creatinine 0.54 Glucose Level 82 Calcium Level 9.3 Phosphorus Level 4.7 Magnesium Level 2.0 Test 02/04/17 14:15 02/04/17 17:20 02/04/17 17:39 Total Protein 6.5 Pathologist Review (Hematology) NO Body Fluid Type THORACENTESIS FLUID Body Fluid Volume 330.0 Body Fluid Color YELLOW Body Fluid Appearance SLIGHTLY HAZY Body Fluid WBC 1910 Body Fluid RBC (Auto) 6 Body Fluid Polynuclear WBCs (%) 26.3 Body Fluid Mononuclear Cells % Auto 73.7 Body Fluid Glucose 56 Body Fluid Total Protein 3.4 Body Fluid Lactate Dehydrogenase 521 Bedside Glucose 70 Medications Medications Current Medications Acetaminophen (Tylenol Tab) 650 mg Q6H PRN PO PAIN LEVEL 1-3 OR FEVER; Start at 11:30 Acetaminophen (Tylenol Supp) 650 mg Q6H PRN [place] PAIN LEVEL 1-3 OR FEVER; Start 01/06/17 at 11:30 Aspirin (Halfprin) 81 mg DAILY PO Last administered on 02/04/17 08:28; Admin Dose 81 MG; Start 01/07/17 at 09:00 Duloxetine HCl (Cymbalta) 20 mg DAILY PO Last administered on 02/04/17 08:28; Admin Dose 20 MG; Start 01/07/17 at 09:00 Gabapentin (Neurontin) 300 mg TID PO Last administered on 02/04/17 13:40; Admin Dose 300 MG; Start 01/06/17 at 13:00 Metoprolol Tartrate (Lopressor) 12.5 mg BID PO ; Start 01/06/17 at 21:00; Status Future Hold Furosemide (Lasix) 20 mg DAILY PO ; Start 01/07/17 at 09:00; Status Future Hold Bisacodyl (Dulcolax Supp) 10 mg DAILY PRN [place] CONSTIPATION Last administered on 02/03/17 14:56; Admin Dose 10 MG; Start 01/06/17 at 11:30 Guaifenesin (Robitussin Liquid Cup) 100 mg Q6H PRN PO COUGH Last administered on 01/08/17 07:54; Admin Dose 100 MG; Start 01/06/17 at 11:30 Levothyroxine Sodium (Synthroid) 112 mcg DAILY@06 PO Last administered on 06:32; Admin Dose 112 MCG; Start 01/07/17 at 06:00 Lisinopril (Zestril) 2.5 mg DAILY PO Last administered on 01/29/17 09:00; Admin Dose 2.5 MG; Start 01/07/17 at 09:00 Senna (Senokot) 2 tab HS PO Last administered on 02/03/17 20:29; Admin Dose 2 TAB; Start 01/06/17 at 21:00 Atorvastatin Calcium (Lipitor) 40 mg HS PO Last administered on 02/03/17 20:29 ; Admin Dose 40 MG; Start 01/14/17 at 21:00 Alendronate Sodium (Fosamax) 70 mg We@0630 PO Last administered on 02/04/17 08 :28; Admin Dose 70 MG; Start 01/21/17 at 06:30 Polyethylene Glycol (Miralax) 17 gm DAILY PRN PO constipation; Start 01/20/17 at 18:30 Insulin Glargine (Lantus) 13 unit DAILY@08 SC Last administered on 02/04/17 08 :32; Admin Dose 13 UNIT; Start 01/22/17 at 08:00; Status Future hold Morphine Sulfate (morphine) 1 mg Q2 PRN IV PAIN LEVEL 1-5 Last administered on 01/30/17 10:28; Admin Dose 1 MG; Start 01/26/17 at 14:00 Morphine Sulfate (morphine) 2 mg Q2 PRN IV PAIN LEVEL 6-10 Last administered on 02/01/17 22:25; Admin Dose 2 MG; Start 01/26/17 at 14:00 Ondansetron HCl (Zofran Inj) 4 mg Q6H PRN IV NAUSEA AND/OR VOMITING; Start at 14:00 Dextrose (D50w Syringe) 25 ml Q15M PRN IV Till BS 80 mg/dL or above x2; Start 01/26/17 at 20:30 Dextrose (D50w Syringe) 50 ml Q15M PRN IV Till BS 80 mg/dL or above x2 Last administered on 01/31/17 04:36; Admin Dose 50 ML; Start 01/26/17 at 20:30 Docusate Sodium (Colace) 100 mg BID PO Last administered on 02/04/17 08:28; Admin Dose 100 MG; Start 01/29/17 at 21:00 Acetaminophen/ Hydrocodone Bitart ([place] (5/325)) 1 tab Q6H PRN PO PAIN Last administered on 02/04/17 13:39; Admin Dose 1 TAB; Start 02/01/17 at 09:00 Ticagrelor (Brilinta) 90 mg BID PO Last administered on 02/04/17 09:04; Admin Dose 90 MG; Start 02/02/17 at 12:00 Insulin Human NPH 7 unit 7 unit DAILY@20 SC Last administered on 02/03/17 20: 42; Admin Dose 7 UNIT; Start 02/02/17 at 20:00 Amiodarone HCl/ Dextrose (Cordarone Iv/ D5W) 500 ml @ 0 mls/hr Q0M IV Last administered on 02/03/17 02:05; Admin Dose 16.7 MLS/HR; Start 02/02/17 at 19:30 Enoxaparin Sodium (Lovenox) 45 mg BID SC Last administered on 02/04/17 09:00; Admin Dose 45 MG; Start 02/02/17 at 19:45; Status Future hold Furosemide (Lasix) 40 mg DAILY IV Last administered on 02/04/17 08:29; Admin Dose 40 MG; Start 02/03/17 at 14:00 DARYL MYERS MD Feb 04, 2017 21:26
[2017-02-04] MEDS: ATORVASTATIN 40 MG TAB PO SCH (22:01)
[2017-02-04] MEDS: SENNA TAB PO SCH (22:02)
[2017-02-04] MEDS: NPH, HUMAN INSULIN ISOPHANE 3ML VIAL SC SCH (22:11)
[2017-02-05] VITALS (9 sets, daily range): BP systolic 99–124; BP diastolic 51–57; PULSE 95–98; RESP 18–22
[2017-02-05] MEDS: LEVOTHYROXINE 112 MCG TAB PO SCH (05:06)
[2017-02-05] MEDS: INSULIN ASPART [NOVOLOG] 3 ML PEN SC SCH ×6 (07:55→17:20)
[2017-02-05] MEDS: DOCUSATE SODIUM 100 MG CAP PO SCH (08:26)
[2017-02-05] MEDS: GABAPENTIN 300 MG CAP PO SCH ×2 (08:26→12:26)
[2017-02-05] MEDS: DULOXETINE 20 MG CAP DR PO SCH (08:26)
[2017-02-05] MEDS: TICAGRELOR 90 MG TABLET PO SCH (08:29)
[2017-02-05] MEDS: INSULIN GLARGINE [LANtus] 3 ML PEN SC SCH (08:30)
[2017-02-05] MEDS: ASPIRIN (EC) 81 MG TAB PO SCH (08:31)
[2017-02-05] MEDS: LISINOPRIL 5 MG TAB PO SCH (08:32)
[2017-02-05] MEDS: FUROSEMIDE 40 MG INJ IV SCH (08:32)
--- NOTE | 2017-02-05 11:20 | CONS ---
Date/Time of Note Date/Time of Note DATE: 02/05/17 TIME: :17 Assessment/Plan Assessment/Plan Chief Complaint/Hosp Course IMP: 1.NSTEMI-peak trop>60 Now dowtrended significantly s/p LHC with patent RCA stents and high grade disease of LAD/LCX with small caliber vessels. Now post- op s/p cabg x 2 2.cardiomyopathy-LVEF 40-45 BY OSH echo. 25% by echo read here 3.Hypotension-borderline. Hold lasix as tolerated 4.resp failure s/p extubation-now stable 5.anemia 6. AMS/encephalopathy 7. PNA-ongoing by chest CT 8. COPD 9. Hypothyroid 10.DM-labile BS 11.Neck mass? with dysphagia. Now s/p bronch with findings of subglottic mass. Now per ENT decreasing in size and thinks possibly secondary to extended intubation 12. carotid stenosis 14. Pleural effusion s/p thoracentesis Recc: -Tele -Continue acei as tolerated -Continue asa -Continue brilinta. -Continue statin -Smoking cessation -Follow BS closely -Continue abx's and f/u cx data -Continue bronchodilators -Follow volume status closely and continue daily lasix -PT -D/C plannig if remains stable Problems: Consultation Date/Type/Reason Admit Date/Time Jan 06, 2017 at 10:49 Initial Consult Date 01/06/2017 Type of Consultation: cardiology Reason for Consultation Nstemi Referring Provider: TANIYA OLMSTEAD Exam/Review of Systems Vital Signs Vitals Vital Signs Date Time Temp Pulse Resp B/P Pulse Ox O2 Delivery O2 Flow Rate FiO2 02/05/17 08:16 Nasal Cannula 2.0 02/05/17 08:12 95 02/05/17 07:58 98.0 18 99/52 93 Intake and Output 02/04/17 02/04/17 02/05/17 15:00 23:00 07:00 Intake Total 850 ml 560 ml Balance 850 ml 560 ml Exam Review of Systems: CONSTITUTIONAL: No fevers, chills. PULMONARY: No sob CARDIOVASCULAR: No chest pain/palpitations GASTROINTESTINAL: No nausea/vomiting. GENITOURINARY: No hematuria/dysuria. MUSCULOSKELETAL: No myagias/arthalgias. PSYCHIATRIC: The patient denies depression. NEUROLOGIC: No weakness Constitutional: alert Psych: no complaints Head: normocephalic ENMT: mucosa pink and moist Neck: jvd (9 cm water), supple Respiratory: diminished breath sounds (at bases/B) Cardiovascular: other (median sternotomy c/d/i), regular rate and rhythm Gastrointestinal: non-tender, soft Musculoskeletal: muscle tone (normal) Extremities: edema (none) 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: other (No focal deficits) Results Result Diagram: 02/04/17 0606 02/04/17 0606 Results 24 hrs Laboratory Tests Test 02/04/17 12:55 02/04/17 14:15 02/04/17 17:20 02/04/17 17:39 Bedside Glucose 84 70 Total Protein 6.5 Pathologist Review (Hematology) NO Body Fluid Type THORACENTESIS FLUID Body Fluid Volume 330.0 Body Fluid Color YELLOW Body Fluid Appearance SLIGHTLY HAZY Body Fluid WBC 1910 Body Fluid RBC (Auto) 6 Body Fluid Polynuclear WBCs (%) 26.3 Body Fluid Mononuclear Cells % Auto 73.7 Body Fluid Glucose 56 Body Fluid Total Protein 3.4 Body Fluid Lactate Dehydrogenase 521 Test 02/04/17 22:09 02/05/17 02:33 02/05/17 08:00 Bedside Glucose 198 137 99 Medications Medications Current Medications Acetaminophen (Tylenol Tab) 650 mg Q6H PRN PO PAIN LEVEL 1-3 OR FEVER; Start at 11:30 Acetaminophen (Tylenol Supp) 650 mg Q6H PRN [place] PAIN LEVEL 1-3 OR FEVER; Start 01/06/17 at 11:30 Aspirin (Halfprin) 81 mg DAILY PO Last administered on 02/05/17 08:31; Admin Dose 81 MG; Start 01/07/17 at 09:00 Duloxetine HCl (Cymbalta) 20 mg DAILY PO Last administered on 02/05/17 08:26; Admin Dose 20 MG; Start 01/07/17 at 09:00 Gabapentin (Neurontin) 300 mg TID PO Last administered on 02/05/17 08:26; Admin Dose 300 MG; Start 01/06/17 at 13:00 Metoprolol Tartrate (Lopressor) 12.5 mg BID PO ; Start 01/06/17 at 21:00; Status Future Hold Furosemide (Lasix) 20 mg DAILY PO ; Start 01/07/17 at 09:00; Status Future Hold Bisacodyl (Dulcolax Supp) 10 mg DAILY PRN [place] CONSTIPATION Last administered on 02/03/17 14:56; Admin Dose 10 MG; Start 01/06/17 at 11:30 Guaifenesin (Robitussin Liquid Cup) 100 mg Q6H PRN PO COUGH Last administered on 01/08/17 07:54; Admin Dose 100 MG; Start 01/06/17 at 11:30 Levothyroxine Sodium (Synthroid) 112 mcg DAILY@06 PO Last administered on 05:06; Admin Dose 112 MCG; Start 01/07/17 at 06:00 Lisinopril (Zestril) 2.5 mg DAILY PO Last administered on 01/29/17 09:00; Admin Dose 2.5 MG; Start 01/07/17 at 09:00 Senna (Senokot) 2 tab HS PO Last administered on 02/04/17 22:02; Admin Dose 2 TAB; Start 01/06/17 at 21:00 Atorvastatin Calcium (Lipitor) 40 mg HS PO Last administered on 02/04/17 22:01 ; Admin Dose 40 MG; Start 01/14/17 at 21:00 Alendronate Sodium (Fosamax) 70 mg We@0630 PO Last administered on 02/04/17 08 :28; Admin Dose 70 MG; Start 01/21/17 at 06:30 Polyethylene Glycol (Miralax) 17 gm DAILY PRN PO constipation; Start 01/20/17 at 18:30 Insulin Glargine (Lantus) 13 unit DAILY@08 SC Last administered on 02/05/17 08 :30; Admin Dose 13 UNIT; Start 01/22/17 at 08:00; Status Future hold Morphine Sulfate (morphine) 1 mg Q2 PRN IV PAIN LEVEL 1-5 Last administered on 01/30/17 10:28; Admin Dose 1 MG; Start 01/26/17 at 14:00 Morphine Sulfate (morphine) 2 mg Q2 PRN IV PAIN LEVEL 6-10 Last administered on 02/01/17 22:25; Admin Dose 2 MG; Start 01/26/17 at 14:00 Ondansetron HCl (Zofran Inj) 4 mg Q6H PRN IV NAUSEA AND/OR VOMITING; Start at 14:00 Dextrose (D50w Syringe) 25 ml Q15M PRN IV Till BS 80 mg/dL or above x2; Start 01/26/17 at 20:30 Dextrose (D50w Syringe) 50 ml Q15M PRN IV Till BS 80 mg/dL or above x2 Last administered on 01/31/17 04:36; Admin Dose 50 ML; Start 01/26/17 at 20:30 Docusate Sodium (Colace) 100 mg BID PO Last administered on 02/05/17 08:26; Admin Dose 100 MG; Start 01/29/17 at 21:00 Acetaminophen/ Hydrocodone Bitart ([place] (5/325)) 1 tab Q6H PRN PO PAIN Last administered on 02/04/17 13:39; Admin Dose 1 TAB; Start 02/01/17 at 09:00 Ticagrelor (Brilinta) 90 mg BID PO Last administered on 02/05/17 08:29; Admin Dose 90 MG; Start 02/02/17 at 12:00 Insulin Human NPH 7 unit 7 unit DAILY@20 SC Last administered on 02/04/17 22: 11; Admin Dose 7 UNIT; Start 02/02/17 at 20:00 Amiodarone HCl/ Dextrose (Cordarone Iv/ D5W) 500 ml @ 0 mls/hr Q0M IV Last administered on 02/03/17 02:05; Admin Dose 16.7 MLS/HR; Start 02/02/17 at 19:30 Enoxaparin Sodium (Lovenox) 45 mg BID SC Last administered on 02/04/17 09:00; Admin Dose 45 MG; Start 02/02/17 at 19:45; Status Future hold Furosemide (Lasix) 40 mg DAILY IV Last administered on 02/04/17 08:29; Admin Dose 40 MG; Start 02/03/17 at 14:00 RHONDA PENA Feb 05, 2017 11:19
--- NOTE | 2017-02-05 11:28 | CONS ---
Date/Time of Note Date/Time of Note DATE: 02/05/17 TIME: 11:27 Consult Date/Type/Reason Admit Date/Time Jan 06, 2017 at 10:49 Type of Consultation: Pulmonary Ordering Provider: TANIYA OLMSTEAD Subjective Status post thoracentesis removing 300 cc. Remains comfortable no complications. Objective Vital Signs Date Time Temp Pulse Resp B/P Pulse Ox O2 Delivery O2 Flow Rate FiO2 02/05/17 08:16 Nasal Cannula 2.0 02/05/17 08:12 95 02/05/17 07:58 98.0 18 99/52 93 Intake and Output 02/04/17 02/04/17 02/05/17 14:59 22:59 06:59 Intake Total 850 ml 560 ml Balance 850 ml 560 ml Exam OBJECTIVE DATA: VITAL SIGNS: NECK: Supple. No JVD. No lymphadenopathy. HEART: S1, S2. No added sounds or murmurs. CHEST: Diminished air entry, left greater than right lung base. ABDOMEN: Soft, nontender. No guarding or rebound. EXTREMITIES: No cyanosis, clubbing, or edema. NEUROLOGIC: Generalized weakness. Results/Medications Result Diagram: 02/04/17 0606 02/04/17 0606 Results 24 hrs Laboratory Tests Test 02/04/17 12:55 02/04/17 14:15 02/04/17 17:20 02/04/17 17:39 Bedside Glucose 84 70 Total Protein 6.5 Pathologist Review (Hematology) NO Body Fluid Type THORACENTESIS FLUID Body Fluid Volume 330.0 Body Fluid Color YELLOW Body Fluid Appearance SLIGHTLY HAZY Body Fluid WBC 1910 Body Fluid RBC (Auto) 6 Body Fluid Polynuclear WBCs (%) 26.3 Body Fluid Mononuclear Cells % Auto 73.7 Body Fluid Glucose 56 Body Fluid Total Protein 3.4 Body Fluid Lactate Dehydrogenase 521 Test 02/04/17 22:09 02/05/17 02:33 02/05/17 08:00 Bedside Glucose 198 137 99 Medications Current Medications Acetaminophen (Tylenol Tab) 650 mg Q6H PRN PO PAIN LEVEL 1-3 OR FEVER; Start at 11:30 Acetaminophen (Tylenol Supp) 650 mg Q6H PRN [place] PAIN LEVEL 1-3 OR FEVER; Start 01/06/17 at 11:30 Aspirin (Halfprin) 81 mg DAILY PO Last administered on 02/05/17t 08:31; Admin Dose 81 MG; Start 01/07/17 at 09:00 Duloxetine HCl (Cymbalta) 20 mg DAILY PO Last administered on 02/05/17 08:26; Admin Dose 20 MG; Start 01/07/17 at 09:00 Gabapentin (Neurontin) 300 mg TID PO Last administered on 02/05/17 08:26; Admin Dose 300 MG; Start 01/06/17 at 13:00 Metoprolol Tartrate (Lopressor) 12.5 mg BID PO ; Start 01/06/17 at 21:00; Status Future Hold Furosemide (Lasix) 20 mg DAILY PO ; Start 01/07/17 at 09:00; Status Future Hold Bisacodyl (Dulcolax Supp) 10 mg DAILY PRN [place] CONSTIPATION Last administered on 02/03/17 14:56; Admin Dose 10 MG; Start 01/06/17 at 11:30 Guaifenesin (Robitussin Liquid Cup) 100 mg Q6H PRN PO COUGH Last administered on 01/08/17 07:54; Admin Dose 100 MG; Start 01/06/17 at 11:30 Levothyroxine Sodium (Synthroid) 112 mcg DAILY@06 PO Last administered on 05:06; Admin Dose 112 MCG; Start 01/07/17 at 06:00 Lisinopril (Zestril) 2.5 mg DAILY PO Last administered on 01/29/17 09:00; Admin Dose 2.5 MG; Start 01/07/17 at 09:00 Senna (Senokot) 2 tab HS PO Last administered on 02/04/17 22:02; Admin Dose 2 TAB; Start 01/06/17 at 21:00 Atorvastatin Calcium (Lipitor) 40 mg HS PO Last administered on 02/04/17 22:01 ; Admin Dose 40 MG; Start 01/14/17 at 21:00 Alendronate Sodium (Fosamax) 70 mg We@0630 PO Last administered on 02/04/17 08 :28; Admin Dose 70 MG; Start 01/21/17 at 06:30 Polyethylene Glycol (Miralax) 17 gm DAILY PRN PO constipation; Start 01/20/17 at 18:30 Insulin Glargine (Lantus) 13 unit DAILY@08 SC Last administered on 02/05/17 08 :30; Admin Dose 13 UNIT; Start 01/22/17 at 08:00; Status Future hold Morphine Sulfate (morphine) 1 mg Q2 PRN IV PAIN LEVEL 1-5 Last administered on 01/30/17 10:28; Admin Dose 1 MG; Start 01/26/17 at 14:00 Morphine Sulfate (morphine) 2 mg Q2 PRN IV PAIN LEVEL 6-10 Last administered on 02/01/17 22:25; Admin Dose 2 MG; Start 01/26/17 at 14:00 Ondansetron HCl (Zofran Inj) 4 mg Q6H PRN IV NAUSEA AND/OR VOMITING; Start at 14:00 Dextrose (D50w Syringe) 25 ml Q15M PRN IV Till BS 80 mg/dL or above x2; Start 01/26/17 at 20:30 Dextrose (D50w Syringe) 50 ml Q15M PRN IV Till BS 80 mg/dL or above x2 Last administered on 01/31/17 04:36; Admin Dose 50 ML; Start 01/26/17 at 20:30 Docusate Sodium (Colace) 100 mg BID PO Last administered on 02/05/17 08:26; Admin Dose 100 MG; Start 01/29/17 at 21:00 Acetaminophen/ Hydrocodone Bitart ([place] (5/325)) 1 tab Q6H PRN PO PAIN Last administered on 02/04/17 13:39; Admin Dose 1 TAB; Start 02/01/17 at 09:00 Ticagrelor (Brilinta) 90 mg BID PO Last administered on 02/05/17 08:29; Admin Dose 90 MG; Start 02/02/17 at 12:00 Insulin Human NPH 7 unit 7 unit DAILY@20 SC Last administered on 02/04/17 22: 11; Admin Dose 7 UNIT; Start 02/02/17 at 20:00 Amiodarone HCl/ Dextrose (Cordarone Iv/ D5W) 500 ml @ 0 mls/hr Q0M IV Last administered on 02/03/17 02:05; Admin Dose 16.7 MLS/HR; Start 02/02/17 at 19:30 Enoxaparin Sodium (Lovenox) 45 mg BID SC Last administered on 02/04/17 09:00; Admin Dose 45 MG; Start 02/02/17 at 19:45; Status Future hold Furosemide (Lasix) 40 mg DAILY IV Last administered on 02/04/17t 08:29; Admin Dose 40 MG; Start 02/03/17 at 14:00 Assessment/Plan Chief Complaint/Hosp Course IMPRESSION: 1. Coronary artery disease status post multivessel coronary artery bypass graft surgery. 2. Congestive cardiac failure with worsening pleural effusions. Repeat thoracentesis of left lung performed. 3. Underlying history of severe chronic obstructive pulmonary disease. 4. Significant deconditioning. PLAN: 1. Continue diuretics, left lung thoracentesis completed without complication. 2. Continue glycemic management. 3. Physical therapy. Encourage out of bed. 4. Rate control per Cardiology. 5. DVT and GI prophylaxis. Transferred to acute rehab unit. Problems: STEFANI GONZALES MD, [facility] Feb 05, 2017 11:28
--- NOTE | 2017-02-05 11:58 | DS ---
Date/Time of Note Date/Time of Note DATE: 02/05/17 TIME: 11:56 Discharge Summary Admission/Discharge Info Admit Date/Time Jan 06, 2017 at 10:49 Discharge Date/Time Discharge Diagnosis multivessel CAD, systolic heart failure, DM1, L sided subglottic lesion, pleural effusion Patient Condition: Stable Consults cardiology, pulmonology, surgery, ENT, endocrinology Procedures 8.23 thoracentesis FINDINGS:Initial ultrasound demonstrates fluid in the left pleural space. Approximately 0.300 liters of serous fluid was aspirated and sent to the laboratory. exudative by LDH. Culture negative. Cytology pending 8.14 Coronary artery bypass grafting 1 DEE to LAD 2 Saphenous vein graft to the obtuse marginal branch of the circumflex 3 LAD endarterectomy 4 Endoscopic saphenous venous vein harvest from the left lower extremity 8.10 TTE Conclusions 1. Normal left ventricular systolic function. Normal left ventricular cavity size. Mild left ventricular systolic dysfunction. Ejection fraction is visually estimated at 40-45 %. Tissue Doppler/Mitral Doppler indices are consistent with impaired relaxation (Stage I diastolic dysfunction). Trace mitral regurgitation. 2. Trace aortic valve regurgitation. 3. Normal appearance and function of the tricuspid valve with trace tricuspid regurgitation. Normal right ventricular systolic pressure. Estimated peak PA systolic pressure 40 mmHg. 8.8 ENT bedside nasal laryngoscopy procedure note The nasopharynx is clear. Base of tongue symmetric, vallecula was open. Epiglottis normal. Vocal cords are moving well. Again, Marcial see a posterior tracheal lesion below the level of the cords, yet it is smaller and more benign-appearing than what I had seen during my last endoscopy. With that being said, I do indeed believe that this was related to her extended intubation as it is slowly improved over time. Her voice is no longer hoarse and it has gotten smaller, so I do not feel the need to do any procedure at this time. 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 Without any evidence of tracheal obstruction. Hx of Present Illness This is a very unfortunate 56-year-old female with a past medical history of severe coronary artery disease, status post SC who is being followed up by cardiology and CT surgery with the possibility of cardiac surgery, ischemic cardiomyopathy with a known ejection fraction 25%, dysphagia, neck mass, recent respiratory failure/pneumonia, pulmonary nodules, type 2 diabetes, hypothyroidism, constipation, deconditioning, toxic metabolic encephalopathy, hypertension, hypercholesterolemia, depression, neuropathy, osteoarthritis, who was recently admitted to [facility] on December 10, 2016 with NSTEMI, aspiration pneumonia and respiratory failure requiring intubation and mechanical ventilation. Patient was evaluated by multiple specialists including cardiothoracic surgery, pulmonary, ID, and cardiology service. During her hospitalization here at [facility], patient had also underwent PCI and stent placed to RCA with eventual recommendation of coronary artery bypass grafting when medically stable. Patient was continued on medical management for severe CAD. She was subsequently extubated. She was then discharged to acute rehab facility for comprehensive interdisciplinary acute rehab for functional gain/improved ambulation. However, in acute rehab, patient has been having hypotension and was unable to participate in physical therapy activities. Therefore, she is now being transferred to acute care for further evaluation and management. Hospital Course Pt transferred from ARU back to [facility] for hypotension. BP meds adjusted (acei stopped, bb and lasix doses altered) and hypotension resolved. Much of pt's 4 week stay was devoted to coordinating her CABG. While during her ARU stay pt noted to have dysphagia, imaging suggestive of mass in throat. CT neck revealed a L subglottic mass. Work up of this mass involved bronchoscopy from pulm and laryngoscopy from ENT. ENT deemed mass 2/2 previous intubation and did not advise additional intervention at this time. Pt underwent CABG 01.26. Was in the ICU for post op monitoring then transferred to the floor. Pt's diuretics continued to be adjusted. Pt with some DISLA 2 days prior to discharge, imaging revealed L sided pleural effusion for which pt underwent thora on 02.04. Fluid exudative, culture negative thus far, cytology in process. Pt also with labile blood sugars. Endo aided with insulin management. Post discharge follow ups: cytology for pleural effusion from 02.04 ENT for further eval of L subglottic lesion Home Meds Active Scripts Isosorbide Dinitrate* (Isordil*) 10 Mg Tablet, 10 MG PO TID for 30 Days, TAB Prov:TAD POPE 08/29/16 Insulin Glargine* (Lantus*) 100 Unit/Ml Soln, 30 UNIT SC DAILY@20 for 30 Days Prov:TAD POPE 08/29/16 Insulin Aspart* (Novolog Insulin Pen*) 100 Unit/Ml Soln, 12 UNIT SC WITH MEALS for 30 Days Prov:TAD POPE 08/29/16 Metoprolol Tartrate* (Lopressor*) 25 Mg Tab, 12.5 MG PO BID for 30 Days, TAB Prov:TAD POPE 08/29/16 Aspirin* (Aspirin* EC) 81 Mg Tabec, 81 MG PO DAILY for 30 Days, #30 Prov:TAD POPE 08/29/16 Ticagrelor* (Brilinta*) 90 Mg Tablet, 90 MG PO BID for 30 Days, #60 Prov:TAD POPE 08/29/16 Atorvastatin Calcium* (Atorvastatin Calcium*) 20 Mg Tablet, 20 MG PO HS for 30 Days, TAB Prov:KWESI POPEETLANA 08/29/16 Duloxetine Hcl* (Duloxetine Hcl*) 20 Mg Capsule.dr, 20 MG PO DAILY for 30 Days, CAP Prov:TAD POPE 08/29/16 Gabapentin* (Gabapentin*) 300 Mg Capsule, 300 MG PO TID for 30 Days, CAP Prov:TAD POPE 08/29/16 Reported Medications Alendronate Sodium* (Fosamax*) 70 Mg Tablet, 70 MG PO Q7D, #4 TAB 08/19/16 Follow-up Plan ARU, Post discharge follow ups: cytology for pleural effusion from 02.04 ENT for further eval of L subglottic lesion Primary Care Provider [facility] Time spent on discharge: > 30 minutes Pending Labs Laboratory Tests Test 02/04/17 12:55 02/04/17 14:15 02/04/17 17:20 02/04/17 17:39 Bedside Glucose 84mg/dL (70-220) 70mg/dL (70-220) Total Protein 6.5g/dl (6.1-8.1) Pathologist Review (Hematology) NO Body Fluid Type THORACENTESIS FLUID Body Fluid Volume 330.0ml Body Fluid Color YELLOW Body Fluid Appearance SLIGHTLY HAZY Body Fluid WBC 1910/cmm Body Fluid RBC (Auto) 6/uL Body Fluid Polynuclear WBCs (%) 26.3% Body Fluid Mononuclear Cells % Auto 73.7% Body Fluid Glucose 56mg/dl Body Fluid Total Protein 3.4g/dl Body Fluid Lactate Dehydrogenase 521U/L Test 02/04/17 22:09 02/05/17 02:33 02/05/17 08:00 Bedside Glucose 198mg/dL (70-220) 137mg/dL (70-220) 99mg/dL (70-220) Microbiology Date/Time Source Procedure Growth Status 02/04/17 17:20 Thoracentesis Fluid Gram Stain Pending Resulted 02/04/17 17:20 Thoracentesis Fluid Body Fluid Culture - Preliminary Resulted ROBEL PETTY MD Feb 05, 2017 11:57
--- NOTE | 2017-02-05 13:32 | CONS ---
Date/Time of Note Date/Time of Note DATE: 02/05/17 TIME: 13:30 Assessment/Plan Assessment/Plan Problems: (1) Type 1 diabetes mellitus with diabetic polyneuropathy Status: Chronic Comment: Fairly good glycemic control, although above goal now, pre-lunch. Would not change insulin doses based on this single value. Will continue to follow after transfer to ARU. Consultation Date/Type/Reason Admit Date/Time Jan 06, 2017 at 10:49 Initial Consult Date 01/14/17 Type of Consultation: Endocrinology Reason for Consultation T1DM OOC Referring Provider: TANIYA OLMSTEAD 24 HR Interval Summary Constitutional: no complaints Detailed Summary Respiratory: no complaints Cardiovascular: no complaints Gastrointestinal: no complaints Genitourinary: no complaints Musculoskeletal: no complaints Neurologic: no complaints Exam/Review of Systems Vital Signs Vitals VS - Last 72 Hours, by Label Date Time Temp Pulse Resp B/P Pulse Ox O2 Delivery O2 Flow Rate FiO2 02/05/17 12:10 97 02/05/17 08:16 Nasal Cannula 2.0 02/05/17 08:12 95 02/05/17 07:58 98.0 93 18 99/52 93 02/05/17 05:05 98.3 90 18 108/51 98 02/05/17 04:01 96 02/05/17 01:04 98.3 98 18 100/52 98 02/05/17 00:01 96 02/04/17 21:48 2.0 02/04/17 20:21 98.3 89 20 108/54 97 02/04/17 20:19 Nasal Cannula 2.0 02/04/17 20:01 96 02/04/17 16:26 103 02/04/17 16:06 98.6 102 18 103/69 95 02/04/17 12:43 98.1 98 18 100/52 96 02/04/17 12:19 100 02/04/17 12:08 2.0 02/04/17 08:20 92 02/04/17 08:08 98.1 94 18 102/54 96 02/04/17 08:00 Nasal Cannula 2.0 02/04/17 04:13 98.2 81 16 98/54 97 02/04/17 04:02 90 02/04/17 01:19 2.0 02/04/17 00:41 98.3 83 16 104/50 96 02/04/17 00:21 95 02/03/17 22:09 Nasal Cannula 2.0 02/03/17 20:08 98.8 99 16 108/59 98 02/03/17 20:00 99 02/03/17 20:00 2.0 02/03/17 16:24 99 02/03/17 15:22 98.1 101 18 122/59 97 02/03/17 15:19 2.0 02/03/17 12:24 97 02/03/17 11:22 97.9 95 18 103/53 94 02/03/17 09:14 91 02/03/17 08:00 Nasal Cannula 2.0 02/03/17 07:32 98.2 89 17 116/58 96 02/03/17 04:31 88 02/03/17 04:09 98.7 85 16 113/57 96 02/03/17 04:08 2.0 02/03/17 00:24 90 02/02/17 23:58 98.9 96 16 118/55 95 02/02/17 20:59 2.0 02/02/17 20:31 100 02/02/17 20:00 Nasal Cannula 2.0 02/02/17 19:39 98.6 61 16 112/56 98 02/02/17 18:50 136 102/57 02/02/17 16:26 103 02/02/17 15:57 2.0 Vital Signs Date Time Temp Pulse Resp B/P Pulse Ox O2 Delivery O2 Flow Rate FiO2 02/05/17 12:10 97 02/05/17 08:16 Nasal Cannula 2.0 02/05/17 07:58 98.0 18 99/52 93 Intake and Output 02/04/17 02/04/17 02/05/17 15:00 23:00 07:00 Intake Total 850 ml 560 ml Balance 850 ml 560 ml Exam Constitutional: alert, oriented, well developed Psych: nl mood/affect, no complaints Respiratory: clear to auscultation, normal air movement Cardiovascular: regular rate and rhythm, No edema, No murmurs/extra sounds, No rub Gastrointestinal: bowel sounds, nl liver, spleen, non-tender, soft, No mass, No rebound or guarding Musculoskeletal: nl extremities to inspection Extremities: normal pulses, No clubbing, No cyanosis, No edema 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: MARKETING [employer]ODUCTION [employer]NA[employer] II-XII intact, nl mental status, nl speech, nl strength Additional Comments Bedside Glucose - 72 Hours Test 02/02/17 17:31 02/02/17 20:49 02/02/17 22:10 02/03/17 08:28 Bedside Glucose 126mg/dL (70-220) 78mg/dL (70-220) 92mg/dL (70-220) 149mg/dL (70-220) Test 02/03/17 10:49 02/03/17 12:32 02/03/17 17:47 02/03/17 20:19 Bedside Glucose 233mg/dL (70-220) H 147mg/dL (70-220) 106mg/dL (70-220) 104mg/dL (70-220) Test 02/04/17 02:34 02/04/17 08:17 02/04/17 12:55 02/04/17 17:39 Bedside Glucose 80mg/dL (70-220) 112mg/dL (70-220) 84mg/dL (70-220) 70mg/dL (70-220) Test 02/04/17 22:09 02/05/17 02:33 02/05/17 08:00 Bedside Glucose 198mg/dL (70-220) 137mg/dL (70-220) 99mg/dL (70-220) Results Result Diagram: 02/04/17 0606 02/04/17 0606 Results 24 hrs Laboratory Tests Test 02/04/17 14:15 02/04/17 17:20 02/04/17 17:39 02/04/17 22:09 Total Protein 6.5 Pathologist Review (Hematology) NO Body Fluid Type THORACENTESIS FLUID Body Fluid Volume 330.0 Body Fluid Color YELLOW Body Fluid Appearance SLIGHTLY HAZY Body Fluid WBC 1910 Body Fluid RBC (Auto) 6 Body Fluid Polynuclear WBCs (%) 26.3 Body Fluid Mononuclear Cells % Auto 73.7 Body Fluid Glucose 56 Body Fluid Total Protein 3.4 Body Fluid Lactate Dehydrogenase 521 Bedside Glucose 70 198 Test 02/05/17 02:33 02/05/17 08:00 Bedside Glucose 137 99 Medications Medications Current Medications Acetaminophen (Tylenol Tab) 650 mg Q6H PRN PO PAIN LEVEL 1-3 OR FEVER; Start at 11:30 Acetaminophen (Tylenol Supp) 650 mg Q6H PRN [place] PAIN LEVEL 1-3 OR FEVER; Start 01/06/17 at 11:30 Aspirin (Halfprin) 81 mg DAILY PO Last administered on 02/05/17 08:31; Admin Dose 81 MG; Start 01/07/17 at 09:00 Duloxetine HCl (Cymbalta) 20 mg DAILY PO Last administered on 02/05/17 08:26; Admin Dose 20 MG; Start 01/07/17 at 09:00 Gabapentin (Neurontin) 300 mg TID PO Last administered on 02/05/17 12:26; Admin Dose 300 MG; Start 01/06/17 at 13:00 Metoprolol Tartrate (Lopressor) 12.5 mg BID PO ; Start 01/06/17 at 21:00; Status Future Hold Furosemide (Lasix) 20 mg DAILY PO ; Start 01/07/17 at 09:00; Status Future Hold Bisacodyl (Dulcolax Supp) 10 mg DAILY PRN [place] CONSTIPATION Last administered on 02/03/17 14:56; Admin Dose 10 MG; Start 01/06/17 at 11:30 Guaifenesin (Robitussin Liquid Cup) 100 mg Q6H PRN PO COUGH Last administered on 01/08/17 07:54; Admin Dose 100 MG; Start 01/06/17 at 11:30 Levothyroxine Sodium (Synthroid) 112 mcg DAILY@06 PO Last administered on 05:06; Admin Dose 112 MCG; Start 01/07/17 at 06:00 Lisinopril (Zestril) 2.5 mg DAILY PO Last administered on 01/29/17 09:00; Admin Dose 2.5 MG; Start 01/07/17 at 09:00 Senna (Senokot) 2 tab HS PO Last administered on 02/04/17 22:02; Admin Dose 2 TAB; Start 01/06/17 at 21:00 Atorvastatin Calcium (Lipitor) 40 mg HS PO Last administered on 02/04/17 22:01 ; Admin Dose 40 MG; Start 01/14/17 at 21:00 Alendronate Sodium (Fosamax) 70 mg We@0630 PO Last administered on 02/04/17 08 :28; Admin Dose 70 MG; Start 01/21/17 at 06:30 Polyethylene Glycol (Miralax) 17 gm DAILY PRN PO constipation; Start 01/20/17 at 18:30 Insulin Glargine (Lantus) 13 unit DAILY@08 SC Last administered on 02/05/17 08 :30; Admin Dose 13 UNIT; Start 01/22/17 at 08:00; Status Future hold Morphine Sulfate (morphine) 1 mg Q2 PRN IV PAIN LEVEL 1-5 Last administered on 01/30/17 10:28; Admin Dose 1 MG; Start 01/26/17 at 14:00 Morphine Sulfate (morphine) 2 mg Q2 PRN IV PAIN LEVEL 6-10 Last administered on 02/01/17 22:25; Admin Dose 2 MG; Start 01/26/17 at 14:00 Ondansetron HCl (Zofran Inj) 4 mg Q6H PRN IV NAUSEA AND/OR VOMITING; Start at 14:00 Dextrose (D50w Syringe) 25 ml Q15M PRN IV Till BS 80 mg/dL or above x2; Start 01/26/17 at 20:30 Dextrose (D50w Syringe) 50 ml Q15M PRN IV Till BS 80 mg/dL or above x2 Last administered on 01/31/17 04:36; Admin Dose 50 ML; Start 01/26/17 at 20:30 Docusate Sodium (Colace) 100 mg BID PO Last administered on 02/05/17 08:26; Admin Dose 100 MG; Start 01/29/17 at 21:00 Acetaminophen/ Hydrocodone Bitart ([place] (5/325)) 1 tab Q6H PRN PO PAIN Last administered on 02/04/17 13:39; Admin Dose 1 TAB; Start 02/01/17 at 09:00 Ticagrelor (Brilinta) 90 mg BID PO Last administered on 02/05/17 08:29; Admin Dose 90 MG; Start 02/02/17 at 12:00 Insulin Human NPH 7 unit 7 unit DAILY@20 SC Last administered on 02/04/17 22: 11; Admin Dose 7 UNIT; Start 02/02/17 at 20:00 Amiodarone HCl/ Dextrose (Cordarone Iv/ D5W) 500 ml @ 0 mls/hr Q0M IV Last administered on 02/03/17 02:05; Admin Dose 16.7 MLS/HR; Start 02/02/17 at 19:30 Enoxaparin Sodium (Lovenox) 45 mg BID SC Last administered on 02/04/17 09:00; Admin Dose 45 MG; Start 02/02/17 at 19:45; Status Future hold Furosemide (Lasix) 40 mg DAILY IV Last administered on 02/04/17 08:29; Admin Dose 40 MG; Start 02/03/17 at 14:00 DARYL MYERS MD Feb 05, 2017 13:31
[2017-02-05] MEDS ORDERED: LANT3I SC (13:58)
[2017-02-05] MEDS ORDERED: NOVO3I SC (13:58)
[2017-02-05] MEDS ORDERED: ATOR40TA68 PO (13:58)
[2017-02-05] MEDS ORDERED: SYN112 PO (13:58)
[2017-02-05] MEDS ORDERED: FURO40TA4 PO (13:58)
--- NOTE | 2017-02-05 14:03 | PDOCDIS ---
Discharge Instructions DIAGNOSIS Discharge Diagnosis multivessel CAD, systolic heart failure, DM1, L sided subglottic lesion, pleural effusion CONDITION Patient Condition: Stable HOME CARE INSTRUCTIONS: Special Diet: 1800 alejandra ADA FOLLOW UP/APPOINTMENTS Follow-up Plan Keep a log of your blood sugars and follow up with the endocrinologists within [address] Beard Office Address [address] [place] [address] Office Follow up with the CT surgeon and manager bakery within 4 weeks Heart surgeon: Dr Brady Office Address [address] [place] [address] Office Uniform Attendant: Dr Adames Office Address [address] [place] [address] Office Follow up with either the ENT who saw you or the ENT of your choice regarding the lesion in your throat Dr Martinez Office Address [facility] [address] [place] [address] Office Follow up with your PCP within 1 week for a blood pressure check ROBEL PETTY MD Feb 05, 2017 14:03
[2017-02-05] MEDS: HYDROCODONE/APAP (5/325) TAB PO PRN (14:47)
--- NOTE | 2017-02-05 15:14 | RADRPT ---
PROCEDURE: Video-fluoroscopy swallowing study. CLINICAL INDICATION: Dysphagia. TECHNIQUE: Fluoroscopic guided video swallowing study was done in conjunction with the speech ther apist. The study was confined to the oral, pharyngeal, and cervical phases of the swallowing mechani sm. 2.5 minutes of fluoroscopy time was used. 16 series of images were obtained. COMPARISON: No prior study is available for comparison. FINDINGS: There is penetration and aspiration during swallowing. IMPRESSION: 1. Abnormal study with penetration and aspiration during swallowing. 2. Please refer to the speech therapist's recommendations for future feedings. RPTAT: QQ .Alonso Brooks MD, MD Date Time Electronically viewed and signed by .Alonso Brooks MD, on 02/05/2017 15:14 .R/
== END 2017-02-05 18:50 | DRG 228 ==
LOC: PP2 10:49 → ICU 01-26 12:34 → TEL 02-01 18:43
PROVIDERS: ADMIT Internal Medicine; ATTEND Internal Medicine
PROC: 0BJ08ZZ Inspection of Tracheobronchial Tree, Via Natural or Artificial Opening Endoscopic (ICD-10-PCS; 2017-01-15)
PROC: 02C00ZZ Extirpation of Matter from Coronary Artery, One Artery, Open Approach (ICD-10-PCS; 2017-01-26)
PROC: 021009W Bypass Coronary Artery, One Artery from Aorta with Autologous Venous Tissue, Open Approach (ICD-10-PCS; 2017-01-26)
PROC: 06BQ0ZZ Excision of Left Saphenous Vein, Open Approach (ICD-10-PCS; 2017-01-26)
PROC: 5A1221Z Performance of Cardiac Output, Continuous (ICD-10-PCS; 2017-01-26)
PROC: 30233K1 Transfusion of Nonautologous Frozen Plasma into Peripheral Vein, Percutaneous Approach (ICD-10-PCS; 2017-01-26)
PROC: 30233N1 Transfusion of Nonautologous Red Blood Cells into Peripheral Vein, Percutaneous Approach (ICD-10-PCS; 2017-01-26)
PROC: 30233R1 Transfusion of Nonautologous Platelets into Peripheral Vein, Percutaneous Approach (ICD-10-PCS; 2017-01-26)
PROC: 02100Z9 Bypass Coronary Artery, One Artery from Left Internal Mammary, Open Approach (ICD-10-PCS; principal; 2017-01-26 07:30)
PROC: 0W9B3ZZ Drainage of Left Pleural Cavity, Percutaneous Approach (ICD-10-PCS; 2017-02-04)
DX: I21.4 Non-ST elevation (NSTEMI) myocardial infarction (principal); G93.40 Encephalopathy, unspecified; J18.9 Pneumonia, unspecified organism; E10.42 Type 1 diabetes mellitus with diabetic polyneuropathy; I50.22 Chronic systolic (congestive) heart failure; J44.0 Chronic obstructive pulmonary disease with (acute) lower respiratory infection; R13.10 Dysphagia, unspecified; E10.65 Type 1 diabetes mellitus with hyperglycemia; D64.9 Anemia, unspecified; D49.1 Neoplasm of unspecified behavior of respiratory system; I65.21 Occlusion and stenosis of right carotid artery; I95.1 Orthostatic hypotension; I25.5 Ischemic cardiomyopathy; E03.9 Hypothyroidism, unspecified; Z95.5 Presence of coronary angioplasty implant and graft; Z72.0 Tobacco use; Z79.4 Long term (current) use of insulin; I25.110 Atherosclerotic heart disease of native coronary artery with unstable angina pectoris
CPT/HCPCS: 36430; 36592; 36600; 70543; 71010; 74230; 76942; 80048; 80053; 82803; 82945; 82947; 82962; 83615; 83735; 84100; 84155; 84157; 84436; 84443; 84479; 85025; 85610; 85730; 86803; 86850; 86900; 86901; 86920; 86945; 87070; 87081; 87102; 87116; 87340; 88104; 88305; 89051; 92526; 92610; 92611; 93005; 93306; 93312; 93325; 93880; 93971; 94002; 94003; 94060; 94640; 94664; 94729; 94770; 97003; 97110; 97116; 97161; 97162; 97166; 97167; 97530; 97535; J1940; J0171; J0282; J0690; J1100; J1265; J1644; J1650; J1815; J2001; J2150; J2250; J2270; J2370; J2405; J2440; J2710; J2720; J3010; J3370; J3475; J3480; J7060; J7070; J7120; P9016; P9035; P9047; P9059

== ENCOUNTER 2017-02-05 12:05 | Inpatient (IN) | payer OTHER ==
[~2017-02-05] VITALS: Ht 154.9 cm; Wt 61.5 kg
[~2017-02-05 12:05] MED LIST changes: -ACET-141 PO; -ACET1TAB40 PO; -ALBU8.5H3; -ALTACE; -AMIO200T PO; -AMO500 PO; -ASA; -ASPI-535; -GABA-526; -GABAPENTIN; -HUMALOG; -INSU100C SC; -INSU100V18; -INSU100V19; -LANTUS INSULIN; -LES40; -LESCOL; -LEVO137T3 PO; -SYN112 PO; -TRAM-40 PO; -[UNRECOGNIZED DRUG - CODE]
[2017-02-05] MEDS ORDERED: ATOR40TA68 PO (13:58)
[2017-02-05] MEDS ORDERED: SYN112 PO (13:58)
[2017-02-05] MEDS ORDERED: FURO40TA4 PO (13:58)
[2017-02-05] MEDS ORDERED: LANT3I SC (13:58)
[2017-02-05] MEDS ORDERED: NOVO3I SC (13:58)
[2017-02-05 20:00] VITALS: BP 107/53; RESP 18
[2017-02-05 21:00] VITALS: Ht 154.9 cm; Wt 61.5 kg
[2017-02-05] MEDS ORDERED: GLUCAGON 1 MG INJ IM PRN (22:00)
[2017-02-05] MEDS ORDERED: DEXTROSE 50% 50 ML SYRINGE IV PRN ×2 (22:00)
[2017-02-05] MEDS ORDERED: GLUCOSE GEL 15 GRAM TUBE PO PRN ×2 (22:00)
[2017-02-05] MEDS: ATORVASTATIN 40 MG TAB PO SCH (22:59)
[2017-02-05] MEDS: METOPROLOL 25 MG TAB PO SCH (23:00)
[2017-02-05] MEDS: TICAGRELOR 90 MG TABLET PO SCH (23:00)
[2017-02-05] MEDS: GABAPENTIN 300 MG CAP PO SCH (23:01)
[2017-02-05] MEDS: NPH, HUMAN INSULIN ISOPHANE 3ML VIAL SC SCH (23:03)
[2017-02-05] MEDS: HYDROCODONE/APAP (5/325) TAB PO PRN (23:12)
[2017-02-05 23:43] LABS: ADD UMIC NO; UR ASCORBIC ACID NEGATIVE (NEGATIVE); UR BILIRUBIN (Dip) NEGATIVE (NEGATIVE); UR BLOOD (Dip) NEGATIVE (NEGATIVE); UR CLARITY CLEAR (CLEAR); UR COLOR STRAW (YELLOW); UR GLUCOSE (Dip) NEGATIVE (NEGATIVE); UR KETONES (Dip) NEGATIVE (NEGATIVE); UR LEUKOCYTE ESTERASE (Dip) NEGATIVE Leu/ul (NEGATIVE); UR NITRITE (Dip) NEGATIVE (NEGATIVE); UR SPECIFIC GRAVITY (Dip) 1.006 (1.003-1.030); UR TOTAL PROTEIN (Dip) NEGATIVE (NEGATIVE); UR UROBILINOGEN (Dip) 1+ mg/dL (NEGATIVE)
[2017-02-06 02:00] VITALS: BP 110/61; RESP 18
[2017-02-06] MEDS ORDERED: BISACODYL 10 MG SUPP PR PRN (05:00)
[2017-02-06] MEDS ORDERED: MAGNESIUM HYDROXIDE 30ML CUP PO PRN (05:00)
[2017-02-06] MEDS ORDERED: LACTULOSE 30ML CUP PO PRN (05:00)
[2017-02-06] MEDS: FUROSEMIDE 40 MG TAB PO SCH (06:47)
[2017-02-06] MEDS: LEVOTHYROXINE 112 MCG TAB PO SCH (06:47)
[2017-02-06 06:51] LABS: BASOPHIL # 0.1 10^3/ul (0.0-0.1); BASOPHILS % 1.5 % (0.0-2.0); EOSINOPHILS # 1.9 10^3/ul (0.0-0.5); HEMATOCRIT 37.1 % (37.0-47.0); HEMOGLOBIN 11.9 g/dl (12.0-16.0); LYMPHOCYTES # 1.4 10^3/ul (0.8-2.9); LYMPHOCYTES % 16.5 % (15.0-51.0); MEAN CORPUSCULAR HEMOGLOBIN 30.1 pg (29.0-33.0); MEAN CORPUSCULAR HGB CONC 32.1 g/dl (32.0-37.0); MEAN CORPUSCULAR VOLUME 93.7 fl (82.0-101.0); MEAN PLATELET VOLUME 9.3 fl (7.4-10.4); MONOCYTE # 0.7 10^3/ul (0.3-0.9); MONOCYTES % 8.6 % (0.0-11.0); NEUTROPHILS % 50.9 % (39.0-77.0); PLATELET COUNT 413 10^3/UL (140-415); RED BLOOD COUNT 3.96 10^6/ul (4.20-5.40); RED CELL DISTRIBUTION WIDTH 14.8 % (11.5-14.5); WHITE BLOOD COUNT 8.6 10^3/ul (4.8-10.8)
[2017-02-06 07:24] LABS: ALBUMIN/GLOBULIN RATIO 0.93; BILIRUBIN,INDIRECT 0.5 mg/dl (0-1.1); BILIRUBIN,TOTAL 0.5 mg/dl (0.2-1.3); CALCIUM 8.8 mg/dl (8.4-10.2); CREATININE 0.47 mg/dl (0.44-1.00); TOTAL PROTEIN 6.2 g/dl (6.1-8.1)
[2017-02-06 07:59] VITALS: BP 101/52; RESP 18
[2017-02-06] MEDS: INSULIN ASPART [NOVOLOG] 3 ML PEN SC SCH ×3 (08:33→17:33)
--- NOTE | 2017-02-06 08:33 | CONS ---
Date/Time of Note Date/Time of Note DATE: 02/06/17 TIME: 08:25 Assessment/Plan Assessment/Plan Chief Complaint/Hosp Course 1. Multivessel CAD. -Status post CABG 2. DEE to LAD, SVG-OM 01/27/17. -Continue aspirin, Brilinta and statin. 2. Systolic congestive heart failure with pleural effusion. Currently stable. -Continue diuretics beta-blockers as tolerated. Of note, patient also had thoracentesis. 3. Type 1 DM -Continue Accu-Cheks and current insulin regimen recommended by leather roller. 4. L sided subglottic lesion -For outpatient ENT follow-up 5. Hypothyroidism. -Continue Synthroid. 6. History of atrial fibrillation. Now in sinus rhythm. 7. Ischemic cardiomyopathy -Continue current medical management. 8. Debility. -Continue with rehabilitation. 9. Dysphagia, now tolerating mechanical soft diet. Plan: Patient is admitted to acute rehabilitation unit for further comprehensive interdisciplinary rehabilitation. We will continue to follow patient along with from internal medicine standpoint. Approximately 60 minutes was spent on this consultation. Case discussed with . Problems: Consultation Date/Type/Reason Admit Date/Time Feb 05, 2017 at 18:59 Type of Consultation: Internal medicine Referring Provider: JORGE MESSINA MD Hx of Present Illness This is a very unfortunate 56-year-old female with a past medical history of severe coronary artery disease, status post TX requiring revascularization, ischemic cardiomyopathy with a known ejection fraction 25%, dysphagia with neck mass, recent respiratory failure/pneumonia, pulmonary nodules, type 2 diabetes, hypothyroidism, constipation, toxic metabolic encephalopathy, hypertension, hypercholesterolemia, depression, neuropathy, osteoarthritis, who was recently admitted to [facility] on December 10, 2016 with NSTEMI, aspiration pneumonia and respiratory failure requiring intubation and mechanical ventilation. At that time, patient underwent PCI and stent placed to RCA with eventual recommendation of coronary artery bypass grafting when medically stable. She was then discharged to acute rehab facility for comprehensive interdisciplinary acute rehab for functional gain/improved ambulation. However, in acute rehab, patient has been having hypotension and was unable to participate in physical therapy activities. Therefore, she was transferred back to [facility] for consideration for immediate myocardial revascularization. Hypotension was treated with blood pressure medication adjustment. She had then undergone successful CABG on 01/26/2017. Post operatively, patient also had left-sided pleural effusion for which she underwent thoracentesis on 02/04/2017 with negative cultures. She was also evaluated by leather roller for labile blood sugars and insulin was adjusted based on vitamins. During the course of hospitalization, patient also had undergone bronchoscopy and identical for left subglottic mass. As initial plan was to discharge patient home, she was noted with some impairment in self-care ability requiring further rehabilitation. Patient was then evaluated again by acute rehabilitation unit and was accepted to acute rehabilitation unit for further comprehensive interdisciplinary rehabilitation. Patient denies any chest pain, shortness of breath, palpitation, fever, chills, nausea, vomiting, abdominal pain or other discomfort. Vital signs and labs within acceptable range. A 12 point review of system was assessed and is negative other than what is mentioned in the HPI Past Medical History See HPI Past Surgical History See HPI Past Surgical Hx: other Social History Former smoker. Denied alcohol, smoking or illicit drug use. Smoking Status: Former smoker Exam/Review of Systems Vital Signs Vitals Vital Signs Date Time Temp Pulse Resp B/P Pulse Ox O2 Delivery O2 Flow Rate FiO2 02/06/17 07:59 98.3 85 18 101/52 97 02/05/17 21:00 Nasal Cannula 2.0 Exam General: female, who also looks older than what she really is, not in any acute distress . HEENT: Normocephalic, Atraumatic, No laceration or hematoma; Eyes: PEERL, Conjunctiva clear, Anicteric sclera Neck: Supple without any lymphadenopathy, nontender, no JVD, no carotid bruits, trachea midline, no thyromegaly Cardiac: S1, S2 auscultated, regular rhythm and rate, no mumurs or gallop Pulmonary: Normal respiratory effort. Chest clear to auscultation bilaterally, no adventitious breath sounds GI: Abdomen normal to inspection. Soft, non tender, non- distended, no masses, no rebound tenderness or guarding. Bowel sounds active on all four quadrants Genitourinary: Deferred Extremities: No cyanosis, clubbing, or edema. Pulses [2+] bilaterally. Full ROM on all four extremities. No focal weakness appreciated. Neurologic: Alert to person, place, time, and situation. Affect appropriate, intact sensation. Skin: Midsternal incision site intact. Clean,dry, and intact. No ecchymosis, no rashes, or lesions Results Result Diagram: 02/06/17 0602 02/06/17 0602 Results 24 hrs Laboratory Tests Test 02/05/17 23:02 02/05/17 23:30 02/06/17 06:02 02/06/17 08:04 Bedside Glucose 156 196 Urine Color STRAW Urine Clarity CLEAR Urine pH 6.0 Urine Specific [place] 1.006 Urine Ketones NEGATIVE Urine Nitrite NEGATIVE Urine Bilirubin NEGATIVE Urine Urobilinogen 1+ H Urine Leukocyte Esterase NEGATIVE Urine Hemoglobin NEGATIVE Urine Glucose NEGATIVE Urine Total Protein NEGATIVE White Blood Count 8.6 # Red Blood Count 3.96 L Hemoglobin 11.9 L Hematocrit 37.1 Mean Corpuscular Volume 93.7 Mean Corpuscular Hemoglobin 30.1 Mean Corpuscular Hemoglobin Concent 32.1 Red Cell Distribution Width 14.8 H Platelet Count 413 Mean Platelet Volume 9.3 Neutrophils % 50.9 Lymphocytes % 16.5 Monocytes % 8.6 Eosinophils % 22.0 H Basophils % 1.5 Nucleated Red Blood Cells % 0.0 Neutrophils # (Manual) 4.4 Lymphocytes # 1.4 Monocytes # 0.7 Eosinophils # 1.9 H Basophils # 0.1 Nucleated Red Blood Cells # 0.0 Sodium Level 138 Potassium Level 4.0 Chloride Level 98 Carbon Dioxide Level 30 Anion Gap 14 Blood Urea Nitrogen 11 Creatinine 0.47 Glucose Level 187 # Calcium Level 8.8 Total Bilirubin 0.5 Direct Bilirubin 0.00 Indirect Bilirubin 0.5 Aspartate Amino Transf (AST/SGOT) 19 Alanine Aminotransferase (ALT/SGPT) 28 Alkaline Phosphatase 89 Total Protein 6.2 Albumin 3.0 L Globulin 3.20 Albumin/Globulin Ratio 0.93 Medications Medications Current Medications Furosemide (Lasix) 40 mg DAILY@06 PO Last administered on 02/06/17 06:47; Admin Dose 40 MG; Start 02/06/17 at 06:00 Insulin Human NPH (Humulin N) 7 unit DAILY@20 SC Last administered on 23:03; Admin Dose 7 UNIT; Start 02/05/17 at 22:00 Ticagrelor (Brilinta) 90 mg BID PO Last administered on 02/05/17 23:00; Admin Dose 90 MG; Start 02/05/17 at 22:00 Gabapentin (Neurontin) 300 mg TID PO Last administered on 02/05/17 23:01; Admin Dose 300 MG; Start 02/05/17 at 22:00 Alendronate Sodium (Fosamax) 70 mg We@0705 PO ; Start 02/11/17 at 07:05 Atorvastatin Calcium (Lipitor) 40 mg DAILY@21 PO Last administered on 22:59; Admin Dose 40 MG; Start 02/05/17 at 22:00 Aspirin (Halfprin) 81 mg DAILY PO ; Start 02/06/17 at 09:00 Duloxetine HCl (Cymbalta) 20 mg DAILY PO ; Start 02/06/17 at 09:00 Metoprolol Tartrate (Lopressor) 12.5 mg BID PO ; Start 02/05/17 at 22:00 Levothyroxine Sodium (Synthroid) 112 mcg DAILY@06 PO Last administered on 06:47; Admin Dose 112 MCG; Start 02/06/17 at 06:00 Insulin Glargine (Lantus) 13 unit DAILY@08 SC ; Start 02/06/17 at 08:00 Miscellaneous Information 1 ea NOTE XX ; Start 02/05/17 at 22:00 Glucose (Glutose) 15 gm Q15M PRN PO DECREASED GLUCOSE; Start 02/05/17 at 22:00 Glucose (Glutose) 22.5 gm Q15M PRN PO DECREASED GLUCOSE; Start 02/05/17 at 22: 00 Dextrose (D50w Syringe) 25 ml Q15M PRN IV DECREASED GLUCOSE; Start 02/05/17 at 22:00 Dextrose (D50w Syringe) 50 ml Q15M PRN IV DECREASED GLUCOSE; Start 02/05/17 at 22:00 Glucagon (Glucagen) 1 mg Q15M PRN IM DECREASED GLUCOSE; Start 02/05/17 at 22:00 Glucose (Glutose) 15 gm Q15M PRN BUCCAL DECREASED GLUCOSE; Start 02/05/17 at 22 :00 Acetaminophen/ Hydrocodone Bitart ([place] (5/325)) 1 tab Q6H PRN PO MODERATE PAIN LEVEL 4-6 Last administered on 02/05/17 23:12; Admin Dose 1 TAB; Start at 23:00 Acetaminophen/ Hydrocodone Bitart ([place] (5/325)) 2 tab Q6H PRN PO SEVERE PAIN LEVEL 7-10; Start 02/05/17 at 23:00 Docusate Sodium (Colace) 100 mg BID PO ; Start 02/06/17 at 09:00 Bisacodyl (Dulcolax Supp) 10 mg DAILY PRN [place] CONSTIPATION; Start 02/06/17 at 05 :00 Magnesium Hydroxide (Milk Of Mag) 30 ml BID PRN PO CONSTIPATION; Start at 05:00 Lactulose (Enulose) 20 gm DAILY PRN PO CONSTIPATION; Start 02/06/17 at 05:00 TAD HIGGINS NP Feb 06, 2017 08:33
[2017-02-06] MEDS: INSULIN GLARGINE [LANtus] 3 ML PEN SC SCH (08:34)
[2017-02-06] MEDS: TICAGRELOR 90 MG TABLET PO SCH ×2 (08:39→20:33)
[2017-02-06] MEDS: GABAPENTIN 300 MG CAP PO SCH ×3 (08:40→20:32)
[2017-02-06] MEDS: DOCUSATE SODIUM 100 MG CAP PO SCH ×2 (08:40→20:33)
[2017-02-06] MEDS: ASPIRIN (EC) 81 MG TAB PO SCH (08:46)
[2017-02-06] MEDS: DULOXETINE 20 MG CAP DR PO SCH (08:46)
[2017-02-06] MEDS: METOPROLOL 25 MG TAB PO SCH ×2 (08:48→20:38)
--- NOTE | 2017-02-06 12:34 | CONS ---
Date/Time of Note Date/Time of Note DATE: 02/06/17 TIME: 12:28 Assessment/Plan Assessment/Plan Chief Complaint/Hosp Course IMP: 1.NSTEMI-peak trop>60 Now dowtrended significantly s/p LHC with patent RCA stents and high grade disease of LAD/LCX with small caliber vessels. Now post- op s/p cabg x 2 2.cardiomyopathy-EF 40 prior to cabg 3.Hypotension-borderline. 5.anemia 8. COPD 9. Hypothyroid 10.DM-labile BS 11.Neck mass? with dysphagia. Now s/p bronch with findings of subglottic mass. Per ENT possibly secondary to extended intubation.decrreased in size on last assessment 12. carotid stenosis 14. Pleural effusion s/p thoracentesis Recc: -Now in acute rehab -Continue BB low dose as tolerated -Continue asa -Continue brilinta. -Continue statin -Smoking cessation -Follow BS closely -Continue daily lasix and follow volume status closely -Continue bronchodilators -PT/OT Problems: Consultation Date/Type/Reason Admit Date/Time Feb 05, 2017 at 18:59 Initial Consult Date 02/06/2017 Type of Consultation: cardiology Reason for Consultation nstemi s/p cabg Referring Provider: JORGE MESSINA MD Exam/Review of Systems Vital Signs Vitals Vital Signs Date Time Temp Pulse Resp B/P Pulse Ox O2 Delivery O2 Flow Rate FiO2 02/06/17 07:59 98.3 85 18 101/52 97 02/05/17 21:00 Nasal Cannula 2.0 Exam Review of Systems: CONSTITUTIONAL: No fevers, chills. PULMONARY: No sob CARDIOVASCULAR:mild pain at sternotomy site GASTROINTESTINAL: No nausea/vomiting. GENITOURINARY: No hematuria/dysuria. MUSCULOSKELETAL: No myagias/arthalgias. PSYCHIATRIC: The patient denies depression. NEUROLOGIC: No weakness Constitutional: alert, oriented Psych: no complaints Head: normocephalic ENMT: mucosa pink and moist Neck: jvd (9 cm water), supple Respiratory: diminished breath sounds (at bases/B) Cardiovascular: other (sternotomy c/d/i), regular rate and rhythm Gastrointestinal: non-tender, soft Musculoskeletal: muscle tone Extremities: edema (none) 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: other (No focal deficits) Results Result Diagram: 02/06/17 0602 02/06/17 06 Results 24 hrs Laboratory Tests Test 02/05/17 23:02 02/05/17 23:30 02/06/17 06:02 02/06/17 08:04 Bedside Glucose 156 196 Urine Color STRAW Urine Clarity CLEAR Urine pH 6.0 Urine Specific [place] 1.006 Urine Ketones NEGATIVE Urine Nitrite NEGATIVE Urine Bilirubin NEGATIVE Urine Urobilinogen 1+ H Urine Leukocyte Esterase NEGATIVE Urine Hemoglobin NEGATIVE Urine Glucose NEGATIVE Urine Total Protein NEGATIVE White Blood Count 8.6 # Red Blood Count 3.96 L Hemoglobin 11.9 L Hematocrit 37.1 Mean Corpuscular Volume 93.7 Mean Corpuscular Hemoglobin 30.1 Mean Corpuscular Hemoglobin Concent 32.1 Red Cell Distribution Width 14.8 H Platelet Count 413 Mean Platelet Volume 9.3 Neutrophils % 50.9 Lymphocytes % 16.5 Monocytes % 8.6 Eosinophils % 22.0 H Basophils % 1.5 Nucleated Red Blood Cells % 0.0 Neutrophils # (Manual) 4.4 Lymphocytes # 1.4 Monocytes # 0.7 Eosinophils # 1.9 H Basophils # 0.1 Nucleated Red Blood Cells # 0.0 Sodium Level 138 Potassium Level 4.0 Chloride Level 98 Carbon Dioxide Level 30 Anion Gap 14 Blood Urea Nitrogen 11 Creatinine 0.47 Glucose Level 187 # Calcium Level 8.8 Total Bilirubin 0.5 Direct Bilirubin 0.00 Indirect Bilirubin 0.5 Aspartate Amino Transf (AST/SGOT) 19 Alanine Aminotransferase (ALT/SGPT) 28 Alkaline Phosphatase 89 Total Protein 6.2 Albumin 3.0 L Globulin 3.20 Albumin/Globulin Ratio 0.93 Medications Medications Current Medications Furosemide (Lasix) 40 mg DAILY@06 PO Last administered on 02/06/17 06:47; Admin Dose 40 MG; Start 02/06/17 at 06:00 Insulin Human NPH (Humulin N) 7 unit DAILY@20 SC Last administered on 23:03; Admin Dose 7 UNIT; Start 02/05/17 at 22:00 Ticagrelor (Brilinta) 90 mg BID PO Last administered on 02/06/17 08:39; Admin Dose 90 MG; Start 02/05/17 at 22:00 Gabapentin (Neurontin) 300 mg TID PO Last administered on 02/06/17 08:40; Admin Dose 300 MG; Start 02/05/17 at 22:00 Alendronate Sodium (Fosamax) 70 mg We@0705 PO ; Start 02/11/17 at 07:05 Atorvastatin Calcium (Lipitor) 40 mg DAILY@21 PO Last administered on 22:59; Admin Dose 40 MG; Start 02/05/17 at 22:00 Aspirin (Halfprin) 81 mg DAILY PO Last administered on 02/06/17 08:46; Admin Dose 81 MG; Start 02/06/17 at 09:00 Duloxetine HCl (Cymbalta) 20 mg DAILY PO Last administered on 02/06/17 08:46; Admin Dose 20 MG; Start 02/06/17 at 09:00 Metoprolol Tartrate (Lopressor) 12.5 mg BID PO ; Start 02/05/17 at 22:00 Levothyroxine Sodium (Synthroid) 112 mcg DAILY@06 PO Last administered on 06:47; Admin Dose 112 MCG; Start 02/06/17 at 06:00 Insulin Glargine (Lantus) 13 unit DAILY@08 SC Last administered on 02/06/17 08 :34; Admin Dose 13 UNIT; Start 02/06/17 at 08:00 Miscellaneous Information 1 ea NOTE XX ; Start 02/05/17 at 22:00 Glucose (Glutose) 15 gm Q15M PRN PO DECREASED GLUCOSE; Start 02/05/17 at 22:00 Glucose (Glutose) 22.5 gm Q15M PRN PO DECREASED GLUCOSE; Start 02/05/17 at 22: 00 Dextrose (D50w Syringe) 25 ml Q15M PRN IV DECREASED GLUCOSE; Start 02/05/17 at 22:00 Dextrose (D50w Syringe) 50 ml Q15M PRN IV DECREASED GLUCOSE; Start 02/05/17 at 22:00 Glucagon (Glucagen) 1 mg Q15M PRN IM DECREASED GLUCOSE; Start 02/05/17 at 22:00 Glucose (Glutose) 15 gm Q15M PRN BUCCAL DECREASED GLUCOSE; Start 02/05/17 at 22 :00 Acetaminophen/ Hydrocodone Bitart ([place] (5/325)) 1 tab Q6H PRN PO MODERATE PAIN LEVEL 4-6 Last administered on 02/05/17 23:12; Admin Dose 1 TAB; Start at 23:00 Acetaminophen/ Hydrocodone Bitart ([place] (5/325)) 2 tab Q6H PRN PO SEVERE PAIN LEVEL 7-10; Start 02/05/17 at 23:00 Docusate Sodium (Colace) 100 mg BID PO Last administered on 02/06/17t 08:40; Admin Dose 100 MG; Start 02/06/17 at 09:00 Bisacodyl (Dulcolax Supp) 10 mg DAILY PRN [place] CONSTIPATION; Start 02/06/17 at 05 :00 Magnesium Hydroxide (Milk Of Mag) 30 ml BID PRN PO CONSTIPATION; Start at 05:00 Lactulose (Enulose) 20 gm DAILY PRN PO CONSTIPATION; Start 02/06/17 at 05:00 RHONDA PENA Feb 06, 2017 12:34
--- NOTE | 2017-02-06 13:10 | CONS ---
DATE OF ADMISSION: 02/05/2017 DATE OF CONSULTATION: 02/06/2017 Rehabilitation post admission physician evaluation. REHABILITATION IMPAIRMENT CATEGORY: Improving toxic metabolic encephalopathy. ACTIVE COMORBIDITIES: 1. Coronary artery disease and recent ccs-JL-hadhuobal CA, status post CABG. 2. Pleural effusion status post thoracentesis. 3. COPD. 4. Improved orthostatic hypotension. 5. Improving dysphagia. 6. Neck mass. 7. Diabetes mellitus type 2. 8. Hypothyroidism. 9. Anemia. 10. Impairments in self-care, mobility and cognition. HISTORY OF PRESENT ILLNESS: Patient is a pleasant 56-year-old female with a history of multiple medical comorbidities, who was initially admitted with altered mental status. Patient was noted to be in diabetic ketoacidosis and have [id number] CA. Patient did require intubation for respiratory failure. The patient was eventually extubated and noted to have a neck mass. She was transferred to the acute rehabilitation unit. She was making steady functional gains; however, her hypotension did interfere with her progress. She was transferred back to the acute hospital for her hypotension and ultimately underwent a CABG. Her hospital course was also notable for pleural effusion, for which she will required thoracentesis. She did receive workup by ENT for her neck mass, which was presumed secondary to her intubation. She has now been cleared to transfer to the rehabilitation unit for comprehensive interdisciplinary rehab care. FUNCTIONAL HISTORY: Prior to recent events, she was independent in self-care tasks and mobility. Currently, she requires minimal- to-moderate assist for self-care and mobility tasks. I have reviewed the preadmission screen and patient's current functional status is consistent with the preadmission screen. SOCIAL HISTORY: Patient lives at home with family and hopes to return there upon discharge. PAST MEDICAL HISTORY: 1. Diabetes mellitus type 2. 2. COPD. 3. Hypothyroidism. 4. Anemia. 5. Coronary artery disease. MEDICATION: 1. Fosamax 70 mg p.o. q.week. 2. Aspirin 81 mg p.o. q.day. 3. Lipitor 40 mg p.o. at bedtime. 4. Duloxetine 20 mg p.o. q.day. 5. Gabapentin 300 mg p.o. t.i.d. 6. Insulin sliding scale. 7. Lantus 13 units subcu q.day. 8. Synthroid 112 mcg p.o. q.day. 9. Lopressor 12.5 mg p.o. b.i.d. 10. Humulin-N 7 units subcu q.day. 11. Brilinta 90 mg p.o. b.i.d. ALLERGIES: IBUPROFEN. PHYSICAL EXAMINATION: VITAL SIGNS: Patient is currently afebrile with stable vital signs. HEENT: Extraocular motion intact. Oropharynx clear. NECK: Supple. LUNGS: Clear anteriorly. The patient with notable healing chest incision. ABDOMEN: Soft, nontender. Positive bowel sounds. NEUROLOGICALLY: She is awake and alert. She is oriented to person and hospital. She does follow simple one-step commands. She demonstrates antigravity strength in bilateral upper extremity and lower extremity. PLAN: The patient has been admitted for comprehensive interdisciplinary acute rehab and is anticipated to tolerate 3 hours of daily therapy in divided doses for at least 5 out of 7 days a week. The treatment plan will include: 1. Physical therapy to focus on bed mobility, transfers and household ambulation with the goal of having patient reach standby assist level. 2. Occupational therapy to focus on hygiene, grooming, dressing, bathing and toileting activities with the goal of having patient reach standby assist level. 3. Speech therapy for dysphagia management ,in addition to cognition retraining with the goal of having patient meet nutritional needs by mouth on regular diet with thin liquids and to return to baseline cognition. 4. Rehabilitation nursing for carry over of therapeutic interventions. The goal of continent to bowel, bladder, and the goal of patient and family education with regards to the aforementioned issues. REHABILITATION BARRIER: Dysphagia. INTERVENTION FOR BARRIER: Speech therapy. ESTIMATED LENGTH OF STAY: 1 week. DISPOSITION GOAL: Home. I acknowledged I performed a full physical examination on this patient within 24 hours of admission to the rehabilitation unit and believe the patient is a good candidate for comprehensive interdisciplinary rehab care and is anticipated to make reasonable goals in a reasonable period of time as outlined above. Dictated By: Catarino Coe MD /[email or web address] /Document#: [id number]
--- NOTE | 2017-02-06 16:19 | CONS ---
Date/Time of Note Date/Time of Note DATE: 02/06/17 TIME: 16:17 Assessment/Plan Assessment/Plan Problems: (1) Type 1 diabetes mellitus with diabetic polyneuropathy Status: Chronic Comment: Good glycemic control. Cont. current insulin doses. Will reeval tomorrow. Consultation Date/Type/Reason Admit Date/Time Feb 05, 2017 at 18:59 Initial Consult Date 01/14/2017 Type of Consultation: Endocrinology Reason for Consultation [id number] Referring Provider: JORGE MESSINA MD 24 HR Interval Summary Constitutional: improved, no complaints Detailed Summary Respiratory: no complaints Cardiovascular: chest pain (surgical) Gastrointestinal: no complaints Genitourinary: no complaints Musculoskeletal: no complaints Neurologic: no complaints Exam/Review of Systems Vital Signs Vitals VS - Last 72 Hours, by Label Date Time Temp Pulse Resp B/P Pulse Ox O2 Delivery O2 Flow Rate FiO2 02/06/17 07:59 98.3 85 18 101/52 97 02/06/17 02:00 98.3 87 18 110/61 95 02/05/17 21:00 Nasal Cannula 2.0 02/05/17 20:00 98.7 90 18 107/53 97 Vital Signs Date Time Temp Pulse Resp B/P Pulse Ox O2 Delivery O2 Flow Rate FiO2 02/06/17 07:59 98.3 85 18 101/52 97 02/05/17 21:00 Nasal Cannula 2.0 Exam Constitutional: alert, oriented, well developed Respiratory: clear to auscultation, normal air movement Cardiovascular: nl pulses, regular rate and rhythm, No edema, No murmurs/extra sounds, No rub Gastrointestinal: bowel sounds, nl liver, spleen, non-tender, soft, No mass, No rebound or guarding Musculoskeletal: nl extremities to inspection Extremities: normal pulses, No clubbing, No cyanosis, No edema 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: 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, nl mental status, nl speech, nl strength Additional Comments Bedside Glucose - 72 Hours Test 02/05/17 23:02 02/06/17 08:04 02/06/17 12:40 02/06/17 14:56 Bedside Glucose 156mg/dL (70-220) 196mg/dL (70-220) 80mg/dL (70-220) 82mg/dL (70-220) Results Result Diagram: 02/06/17 0602 02/06/17 0602 Results 24 hrs Laboratory Tests Test 02/05/17 23:02 02/05/17 23:30 02/06/17 06:02 02/06/17 08:04 Bedside Glucose 156 196 Urine Color STRAW Urine Clarity CLEAR Urine pH 6.0 Urine Specific [place] 1.006 Urine Ketones NEGATIVE Urine Nitrite NEGATIVE Urine Bilirubin NEGATIVE Urine Urobilinogen 1+ H Urine Leukocyte Esterase NEGATIVE Urine Hemoglobin NEGATIVE Urine Glucose NEGATIVE Urine Total Protein NEGATIVE White Blood Count 8.6 # Red Blood Count 3.96 L Hemoglobin 11.9 L Hematocrit 37.1 Mean Corpuscular Volume 93.7 Mean Corpuscular Hemoglobin 30.1 Mean Corpuscular Hemoglobin Concent 32.1 Red Cell Distribution Width 14.8 H Platelet Count 413 Mean Platelet Volume 9.3 Neutrophils % 50.9 Lymphocytes % 16.5 Monocytes % 8.6 Eosinophils % 22.0 H Basophils % 1.5 Nucleated Red Blood Cells % 0.0 Neutrophils # (Manual) 4.4 Lymphocytes # 1.4 Monocytes # 0.7 Eosinophils # 1.9 H Basophils # 0.1 Nucleated Red Blood Cells # 0.0 Sodium Level 138 Potassium Level 4.0 Chloride Level 98 Carbon Dioxide Level 30 Anion Gap 14 Blood Urea Nitrogen 11 Creatinine 0.47 Glucose Level 187 # Calcium Level 8.8 Total Bilirubin 0.5 Direct Bilirubin 0.00 Indirect Bilirubin 0.5 Aspartate Amino Transf (AST/SGOT) 19 Alanine Aminotransferase (ALT/SGPT) 28 Alkaline Phosphatase 89 Total Protein 6.2 Albumin 3.0 L Globulin 3.20 Albumin/Globulin Ratio 0.93 Test 02/06/17 12:40 02/06/17 14:56 Bedside Glucose 80 82 Medications Medications Current Medications Furosemide (Lasix) 40 mg DAILY@06 PO Last administered on 02/06/17 06:47; Admin Dose 40 MG; Start 02/06/17 at 06:00 Insulin Human NPH (Humulin N) 7 unit DAILY@20 SC Last administered on 23:03; Admin Dose 7 UNIT; Start 02/05/17 at 22:00 Ticagrelor (Brilinta) 90 mg BID PO Last administered on 02/06/17 08:39; Admin Dose 90 MG; Start 02/05/17 at 22:00 Gabapentin (Neurontin) 300 mg TID PO Last administered on 02/06/17 12:45; Admin Dose 300 MG; Start 02/05/17 at 22:00 Alendronate Sodium (Fosamax) 70 mg We@0705 PO ; Start 02/11/17 at 07:05 Atorvastatin Calcium (Lipitor) 40 mg DAILY@21 PO Last administered on 22:59; Admin Dose 40 MG; Start 02/05/17 at 22:00 Aspirin (Halfprin) 81 mg DAILY PO Last administered on 02/06/17 08:46; Admin Dose 81 MG; Start 02/06/17 at 09:00 Duloxetine HCl (Cymbalta) 20 mg DAILY PO Last administered on 02/06/17 08:46; Admin Dose 20 MG; Start 02/06/17 at 09:00 Metoprolol Tartrate (Lopressor) 12.5 mg BID PO ; Start 02/05/17 at 22:00 Levothyroxine Sodium (Synthroid) 112 mcg DAILY@06 PO Last administered on 06:47; Admin Dose 112 MCG; Start 02/06/17 at 06:00 Insulin Glargine (Lantus) 13 unit DAILY@08 SC Last administered on 02/06/17 08 :34; Admin Dose 13 UNIT; Start 02/06/17 at 08:00 Miscellaneous Information 1 ea NOTE XX ; Start 02/05/17 at 22:00 Glucose (Glutose) 15 gm Q15M PRN PO DECREASED GLUCOSE; Start 02/05/17 at 22:00 Glucose (Glutose) 22.5 gm Q15M PRN PO DECREASED GLUCOSE; Start 02/05/17 at 22: 00 Dextrose (D50w Syringe) 25 ml Q15M PRN IV DECREASED GLUCOSE; Start 02/05/17 at 22:00 Dextrose (D50w Syringe) 50 ml Q15M PRN IV DECREASED GLUCOSE; Start 02/05/17 at 22:00 Glucagon (Glucagen) 1 mg Q15M PRN IM DECREASED GLUCOSE; Start 02/05/17 at 22:00 Glucose (Glutose) 15 gm Q15M PRN BUCCAL DECREASED GLUCOSE; Start 02/05/17 at 22 :00 Acetaminophen/ Hydrocodone Bitart ([place] (5/325)) 1 tab Q6H PRN PO MODERATE PAIN LEVEL 4-6 Last administered on 02/05/17 23:12; Admin Dose 1 TAB; Start at 23:00 Acetaminophen/ Hydrocodone Bitart ([place] (5/325)) 2 tab Q6H PRN PO SEVERE PAIN LEVEL 7-10; Start 02/05/17 at 23:00 Docusate Sodium (Colace) 100 mg BID PO Last administered on 02/06/17t 08:40; Admin Dose 100 MG; Start 02/06/17 at 09:00 Bisacodyl (Dulcolax Supp) 10 mg DAILY PRN [place] CONSTIPATION; Start 02/06/17 at 05 :00 Magnesium Hydroxide (Milk Of Mag) 30 ml BID PRN [place] CONSTIPATION; Start at 05:00 Lactulose (Enulose) 20 gm DAILY PRN PO CONSTIPATION; Start 02/06/17 at 05:00 DARYL MYERS MD Feb 06, 2017 16:18
[2017-02-06 20:00] VITALS: BP 98/52; RESP 18
[2017-02-06] MEDS: ATORVASTATIN 40 MG TAB PO SCH (20:32)
[2017-02-06] MEDS: NPH, HUMAN INSULIN ISOPHANE 3ML VIAL SC SCH (20:34)
[2017-02-07] MEDS: LEVOTHYROXINE 112 MCG TAB PO SCH (06:44)
[2017-02-07] MEDS: FUROSEMIDE 40 MG TAB PO SCH (06:45)
[2017-02-07 07:30] VITALS: BP 87/48; RESP 20
[2017-02-07] MEDS: INSULIN ASPART [NOVOLOG] 3 ML PEN SC SCH ×3 (08:27→17:40)
[2017-02-07] MEDS: DULOXETINE 20 MG CAP DR PO SCH (08:28)
[2017-02-07] MEDS: DOCUSATE SODIUM 100 MG CAP PO SCH ×2 (08:28→21:02)
[2017-02-07] MEDS: INSULIN GLARGINE [LANtus] 3 ML PEN SC SCH (08:28)
[2017-02-07] MEDS: GABAPENTIN 300 MG CAP PO SCH ×3 (08:29→21:01)
[2017-02-07] MEDS: ASPIRIN (EC) 81 MG TAB PO SCH (08:29)
[2017-02-07] MEDS: TICAGRELOR 90 MG TABLET PO SCH ×2 (08:30→21:04)
[2017-02-07] MEDS: METOPROLOL 25 MG TAB PO SCH ×2 (08:35→21:02)
[2017-02-07 09:18] VITALS: BP 90/50; PULSE 97
--- NOTE | 2017-02-07 10:36 | CONS ---
Date/Time of Note Date/Time of Note DATE: 02/07/17 TIME: 10:35 Consult Date/Type/Reason Admit Date/Time Feb 05, 2017 at 18:59 Initial Consult Date Type of Consultation: Endocrinology Ordering Provider: JORGE MESSINA MD Subjective Comfortable Objective pulm-cta abd-soft min assist Vital Signs Date Time Temp Pulse Resp B/P Pulse Ox O2 Delivery O2 Flow Rate FiO2 02/07/17 09:18 97 90/50 02/07/17 07:30 98.9 20 96 02/05/17 21:00 Nasal Cannula 2.0 Intake and Output 02/06/17 02/06/17 02/07/17 14:59 22:59 06:59 Intake Total 900 ml 500 ml Output Total 200 ml Balance 700 ml 500 ml Results/Medications Result Diagram: 02/06/17 0602 02/06/17 0602 Results 24 hrs Laboratory Tests Test 02/06/17 12:40 02/06/17 14:56 02/06/17 17:20 02/06/17 20:31 Bedside Glucose 80 82 134 129 Medications Current Medications Furosemide (Lasix) 40 mg DAILY@06 PO Last administered on 02/07/17 06:45; Admin Dose 40 MG; Start 02/06/17 at 06:00 Insulin Human NPH (Humulin N) 7 unit DAILY@20 SC Last administered on 20:34; Admin Dose 7 UNIT; Start 02/05/17 at 22:00 Ticagrelor (Brilinta) 90 mg BID PO Last administered on 02/07/17 08:30; Admin Dose 90 MG; Start 02/05/17 at 22:00 Gabapentin (Neurontin) 300 mg TID PO Last administered on 02/07/17 08:29; Admin Dose 300 MG; Start 02/05/17 at 22:00 Alendronate Sodium (Fosamax) 70 mg We@0705 PO ; Start 02/11/17 at 07:05 Atorvastatin Calcium (Lipitor) 40 mg DAILY@21 PO Last administered on 20:32; Admin Dose 40 MG; Start 02/05/17 at 22:00 Aspirin (Halfprin) 81 mg DAILY PO Last administered on 02/07/17 08:29; Admin Dose 81 MG; Start 02/06/17 at 09:00 Duloxetine HCl (Cymbalta) 20 mg DAILY PO Last administered on 02/07/17 08:28; Admin Dose 20 MG; Start 02/06/17 at 09:00 Metoprolol Tartrate (Lopressor) 12.5 mg BID PO ; Start 02/05/17 at 22:00 Levothyroxine Sodium (Synthroid) 112 mcg DAILY@06 PO Last administered on 06:44; Admin Dose 112 MCG; Start 02/06/17 at 06:00 Insulin Glargine (Lantus) 13 unit DAILY@08 SC Last administered on 02/07/17 08 :28; Admin Dose 13 UNIT; Start 02/06/17 at 08:00 Miscellaneous Information 1 ea NOTE XX ; Start 02/05/17 at 22:00 Glucose (Glutose) 15 gm Q15M PRN PO DECREASED GLUCOSE; Start 02/05/17 at 22:00 Glucose (Glutose) 22.5 gm Q15M PRN PO DECREASED GLUCOSE; Start 02/05/17 at 22: 00 Dextrose (D50w Syringe) 25 ml Q15M PRN IV DECREASED GLUCOSE; Start 02/05/17 at 22:00 Dextrose (D50w Syringe) 50 ml Q15M PRN IV DECREASED GLUCOSE; Start 02/05/17 at 22:00 Glucagon (Glucagen) 1 mg Q15M PRN IM DECREASED GLUCOSE; Start 02/05/17 at 22:00 Glucose (Glutose) 15 gm Q15M PRN BUCCAL DECREASED GLUCOSE; Start 02/05/17 at 22 :00 Acetaminophen/ Hydrocodone Bitart ([place] (5/325)) 1 tab Q6H PRN PO MODERATE PAIN LEVEL 4-6 Last administered on 02/05/17 23:12; Admin Dose 1 TAB; Start at 23:00 Acetaminophen/ Hydrocodone Bitart ([place] (5/325)) 2 tab Q6H PRN PO SEVERE PAIN LEVEL 7-10; Start 02/05/17 at 23:00 Docusate Sodium (Colace) 100 mg BID PO Last administered on 02/07/17 08:28; Admin Dose 100 MG; Start 02/06/17 at 09:00 Bisacodyl (Dulcolax Supp) 10 mg DAILY PRN [place] CONSTIPATION; Start 02/06/17 at 05 :00 Magnesium Hydroxide (Milk Of Mag) 30 ml BID PRN [place] CONSTIPATION; Start at 05:00 Lactulose (Enulose) 20 gm DAILY PRN PO CONSTIPATION; Start 02/06/17 at 05:00 Assessment/Plan Additional Assessment/Plan Rehab- Improving toxic metabolic encephalopathy; debility Tolerating rehab program Coronary artery disease and recent [id number] [place],status post CABG. Pleural effusion status post thoracentesis. COPD. Improved orthostatic hypotension. Improving dysphagia. Neck mass. Diabetes mellitus type 2. Hypothyroidism. Anemia. JORGE MESSINA MD Feb 07, 2017 10:36
--- NOTE | 2017-02-07 12:50 | CONS ---
Date/Time of Note Date/Time of Note DATE: 02/07/17 TIME: 12:47 Assessment/Plan Assessment/Plan Problems: (1) Type 1 diabetes mellitus with diabetic polyneuropathy Status: Chronic Comment: Excellent glycemic control. Cont. current insulin regimen. Advise pt. that she can attain this level of glycemic control after d/c w/ continuing these insulin doses. Pt. understands and seems hopeful. Consultation Date/Type/Reason Admit Date/Time Feb 05, 2017 at 18:59 Initial Consult Date 01/14/2017 Type of Consultation: Endocrinology Reason for Consultation T1DM OOC Referring Provider: JORGE MESSINA MD 24 HR Interval Summary Constitutional: improved, no complaints Detailed Summary Respiratory: no complaints Cardiovascular: no complaints Gastrointestinal: no complaints Genitourinary: no complaints Musculoskeletal: no complaints Neurologic: no complaints Exam/Review of Systems Vital Signs Vitals VS - Last 72 Hours, by Label Date Time Temp Pulse Resp B/P Pulse Ox O2 Delivery O2 Flow Rate FiO2 02/07/17 09:18 97 90/50 02/07/17 07:30 98.9 94 20 87/48 96 02/06/17 20:00 98.7 85 18 98/52 91 02/06/17 07:59 98.3 85 18 101/52 97 02/06/17 02:00 98.3 87 18 110/61 95 02/05/17 21:00 Nasal Cannula 2.0 02/05/17 20:00 98.7 90 18 107/53 97 Vital Signs Date Time Temp Pulse Resp B/P Pulse Ox O2 Delivery O2 Flow Rate FiO2 02/07/17 09:18 97 90/50 02/07/17 07:30 98.9 20 96 02/05/17 21:00 Nasal Cannula 2.0 Intake and Output 02/06/17 02/06/17 02/07/17 15:00 23:00 07:00 Intake Total 900 ml 500 ml Output Total 200 ml Balance 700 ml 500 ml Exam Constitutional: alert, oriented, well developed Psych: nl mood/affect, no complaints Respiratory: clear to auscultation, normal air movement Cardiovascular: nl pulses, regular rate and rhythm, No edema, No murmurs/extra sounds, No rub Gastrointestinal: bowel sounds, nl liver, spleen, non-tender, soft, No mass, No rebound or guarding Musculoskeletal: nl extremities to inspection Extremities: normal pulses, No clubbing, No cyanosis, No edema 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, nl mental status, nl speech, nl strength Additional Comments Bedside Glucose - 72 Hours Test 02/05/17 23:02 02/06/17 08:04 02/06/17 12:40 02/06/17 14:56 Bedside Glucose 156mg/dL (70-220) 196mg/dL (70-220) 80mg/dL (70-220) 82mg/dL (70-220) Test 02/06/17 17:20 02/06/17 20:31 02/07/17 12:13 Bedside Glucose 134mg/dL (70-220) 129mg/dL (70-220) 116mg/dL (70-220) Results Result Diagram: 02/06/17 0602 02/06/17 0602 Results 24 hrs Laboratory Tests Test 02/06/17 14:56 02/06/17 17:20 02/06/17 20:31 02/07/17 12:13 Bedside Glucose 82 134 129 116 Medications Medications Current Medications Furosemide (Lasix) 40 mg DAILY@06 PO Last administered on 02/07/17 06:45; Admin Dose 40 MG; Start 02/06/17 at 06:00 Insulin Human NPH (Humulin N) 7 unit DAILY@20 SC Last administered on 20:34; Admin Dose 7 UNIT; Start 02/05/17 at 22:00 Ticagrelor (Brilinta) 90 mg BID PO Last administered on 02/07/17 08:30; Admin Dose 90 MG; Start 02/05/17 at 22:00 Gabapentin (Neurontin) 300 mg TID PO Last administered on 02/07/17 12:22; Admin Dose 300 MG; Start 02/05/17 at 22:00 Alendronate Sodium (Fosamax) 70 mg We@0705 PO ; Start 02/11/17 at 07:05 Atorvastatin Calcium (Lipitor) 40 mg DAILY@21 PO Last administered on 20:32; Admin Dose 40 MG; Start 02/05/17 at 22:00 Aspirin (Halfprin) 81 mg DAILY PO Last administered on 02/07/17 08:29; Admin Dose 81 MG; Start 02/06/17 at 09:00 Duloxetine HCl (Cymbalta) 20 mg DAILY PO Last administered on 02/07/17 08:28; Admin Dose 20 MG; Start 02/06/17 at 09:00 Metoprolol Tartrate (Lopressor) 12.5 mg BID PO ; Start 02/05/17 at 22:00 Levothyroxine Sodium (Synthroid) 112 mcg DAILY@06 PO Last administered on 06:44; Admin Dose 112 MCG; Start 02/06/17 at 06:00 Insulin Glargine (Lantus) 13 unit DAILY@08 SC Last administered on 02/07/17 08 :28; Admin Dose 13 UNIT; Start 02/06/17 at 08:00 Miscellaneous Information 1 ea NOTE XX ; Start 02/05/17 at 22:00 Glucose (Glutose) 15 gm Q15M PRN PO DECREASED GLUCOSE; Start 02/05/17 at 22:00 Glucose (Glutose) 22.5 gm Q15M PRN PO DECREASED GLUCOSE; Start 02/05/17 at 22: 00 Dextrose (D50w Syringe) 25 ml Q15M PRN IV DECREASED GLUCOSE; Start 02/05/17 at 22:00 Dextrose (D50w Syringe) 50 ml Q15M PRN IV DECREASED GLUCOSE; Start 02/05/17 at 22:00 Glucagon (Glucagen) 1 mg Q15M PRN IM DECREASED GLUCOSE; Start 02/05/17 at 22:00 Glucose (Glutose) 15 gm Q15M PRN BUCCAL DECREASED GLUCOSE; Start 02/05/17 at 22 :00 Acetaminophen/ Hydrocodone Bitart ([place] (5/325)) 1 tab Q6H PRN PO MODERATE PAIN LEVEL 4-6 Last administered on 02/05/17 23:12; Admin Dose 1 TAB; Start at 23:00 Acetaminophen/ Hydrocodone Bitart ([place] (5/325)) 2 tab Q6H PRN PO SEVERE PAIN LEVEL 7-10; Start 02/05/17 at 23:00 Docusate Sodium (Colace) 100 mg BID PO Last administered on 02/07/17 08:28; Admin Dose 100 MG; Start 02/06/17 at 09:00 Bisacodyl (Dulcolax Supp) 10 mg DAILY PRN [place] CONSTIPATION; Start 02/06/17 at 05 :00 Magnesium Hydroxide (Milk Of Mag) 30 ml BID PRN PO CONSTIPATION; Start at 05:00 Lactulose (Enulose) 20 gm DAILY PRN PO CONSTIPATION; Start 02/06/17 at 05:00 DARYL MYERS MD Feb 07, 2017 12:50
--- NOTE | 2017-02-07 13:06 | CONS ---
Date/Time of Note Date/Time of Note DATE: 02/07/17 TIME: 13:04 Assessment/Plan Assessment/Plan Additional Assessment/Plan 1.NSTEMI/ post-op s/p cabg x 2 - much improved, in rehab now - con't Med rx 2.cardiomyopathy-EF 40 prior to cabg - stable by exam, not in CHF 3.Hypotension-borderline - no Sx - compliant with rehab 5.anemia- H/H stable - no bleeding now 8. COPD - no wheezing noted 9. Hypothyroid 10.DM-labile BS 11.Neck mass? with dysphagia. Now s/p bronch with findings of subglottic mass. Per ENT possibly secondary to extended intubation.decrreased in size on last assessment 12. carotid stenosis 14. Pleural effusion s/p thoracentesis Consultation Date/Type/Reason Admit Date/Time Feb 05, 2017 at 18:59 Initial Consult Date Type of Consultation: Endocrinology Referring Provider: JORGE MESSINA MD 24 HR Interval Summary Free Text/Dictation Much better - in rehab now ROS: No fever, no chills, no nausea, no vomiting, no diarrhea/constipation No recent weight changes No chest pain, no PND, no orthopnea No dizziness, blurred vision No thirst, no heat or cold intolerance Exam/Review of Systems Vital Signs Vitals Vital Signs Date Time Temp Pulse Resp B/P Pulse Ox O2 Delivery O2 Flow Rate FiO2 02/07/17 09:18 97 90/50 02/07/17 07:30 98.9 20 96 02/05/17 21:00 Nasal Cannula 2.0 Intake and Output 02/06/17 02/06/17 02/07/17 15:00 23:00 07:00 Intake Total 900 ml 500 ml Output Total 200 ml Balance 700 ml 500 ml Exam General: WN/WD/NAD, AOx 3 HEENT: Unicetric/atraumatic/EOMI (follow commands) NECK: JVD elevated, no thyromegaly Lymph: no lymphadenopathy HEART: regular with no S3, II/ systolic murmur at apex - PMI left. post CABG LUNGS: Coarse sounds ABD: soft, NT, ND, +BS : Intact Neuro: non focal SKIN: chronic changes EXT: trace edema Results Result Diagram: 02/06/17 0602 02/06/17 0602 Results 24 hrs Laboratory Tests Test 02/06/17 14:56 02/06/17 17:20 02/06/17 20:31 02/07/17 12:13 Bedside Glucose 82 134 129 116 Medications Medications Current Medications Furosemide (Lasix) 40 mg DAILY@06 PO Last administered on 02/07/17 06:45; Admin Dose 40 MG; Start 02/06/17 at 06:00 Insulin Human NPH (Humulin N) 7 unit DAILY@20 SC Last administered on 20:34; Admin Dose 7 UNIT; Start 02/05/17 at 22:00 Ticagrelor (Brilinta) 90 mg BID PO Last administered on 02/07/17 08:30; Admin Dose 90 MG; Start 02/05/17 at 22:00 Gabapentin (Neurontin) 300 mg TID PO Last administered on 02/07/17 12:22; Admin Dose 300 MG; Start 02/05/17 at 22:00 Alendronate Sodium (Fosamax) 70 mg We@0705 PO ; Start 02/11/17 at 07:05 Atorvastatin Calcium (Lipitor) 40 mg DAILY@21 PO Last administered on 20:32; Admin Dose 40 MG; Start 02/05/17 at 22:00 Aspirin (Halfprin) 81 mg DAILY PO Last administered on 02/07/17 08:29; Admin Dose 81 MG; Start 02/06/17 at 09:00 Duloxetine HCl (Cymbalta) 20 mg DAILY PO Last administered on 02/07/17 08:28; Admin Dose 20 MG; Start 02/06/17 at 09:00 Metoprolol Tartrate (Lopressor) 12.5 mg BID PO ; Start 02/05/17 at 22:00 Levothyroxine Sodium (Synthroid) 112 mcg DAILY@06 PO Last administered on 06:44; Admin Dose 112 MCG; Start 02/06/17 at 06:00 Insulin Glargine (Lantus) 13 unit DAILY@08 SC Last administered on 02/07/17 08 :28; Admin Dose 13 UNIT; Start 02/06/17 at 08:00 Miscellaneous Information 1 ea NOTE XX ; Start 02/05/17 at 22:00 Glucose (Glutose) 15 gm Q15M PRN PO DECREASED GLUCOSE; Start 02/05/17 at 22:00 Glucose (Glutose) 22.5 gm Q15M PRN PO DECREASED GLUCOSE; Start 02/05/17 at 22: 00 Dextrose (D50w Syringe) 25 ml Q15M PRN IV DECREASED GLUCOSE; Start 02/05/17 at 22:00 Dextrose (D50w Syringe) 50 ml Q15M PRN IV DECREASED GLUCOSE; Start 02/05/17 at 22:00 Glucagon (Glucagen) 1 mg Q15M PRN IM DECREASED GLUCOSE; Start 02/05/17 at 22:00 Glucose (Glutose) 15 gm Q15M PRN BUCCAL DECREASED GLUCOSE; Start 02/05/17 at 22 :00 Acetaminophen/ Hydrocodone Bitart ([place] (5/325)) 1 tab Q6H PRN PO MODERATE PAIN LEVEL 4-6 Last administered on 02/05/17 23:12; Admin Dose 1 TAB; Start at 23:00 Acetaminophen/ Hydrocodone Bitart ([place] (5/325)) 2 tab Q6H PRN PO SEVERE PAIN LEVEL 7-10; Start 02/05/17 at 23:00 Docusate Sodium (Colace) 100 mg BID PO Last administered on 02/07/17 08:28; Admin Dose 100 MG; Start 02/06/17 at 09:00 Bisacodyl (Dulcolax Supp) 10 mg DAILY PRN [place] CONSTIPATION; Start 02/06/17 at 05 :00 Magnesium Hydroxide (Milk Of Mag) 30 ml BID PRN PO CONSTIPATION; Start at 05:00 Lactulose (Enulose) 20 gm DAILY PRN PO CONSTIPATION; Start 02/06/17 at 05:00 ARTIE MARADIAGA MD Feb 07, 2017 13:06
--- NOTE | 2017-02-07 13:40 | PN ---
Date/Time of Note Date/Time of Note DATE: 02/07/17 TIME: 13:36 Assessment/Plan VTE Prophylaxis VTE Prophylaxis Intervention: anti-embolic stocking Lines/Catheters IV Catheter Type (from Nrs): [facility] Urinary Cath still in place: No Assessment/Plan Problems: (1) Status post aorto-coronary artery bypass graft Onset Date: ~ 01/26/2017 Status: Acute Comment: [facility] in acute rehabilitation unit, rehab potential is good. (2) Mass of epiglottis Status: Acute Comment: This may have been due to prior intubation She will need outpatient follow-up to assure stability and resolution (3) Type 1 diabetes mellitus with diabetic polyneuropathy Status: Chronic Comment: Good control on current diabetic medication regimen (4) COPD (chronic obstructive pulmonary disease) with chronic bronchitis Status: Chronic Comment: Compensated on current medication regimen (5) Acquired hypothyroidism Status: Chronic Comment: sTable and replacement dosing. Subjective 24 Hr Interval Summary Free Text/Dictation Now in acute rehabilitation unit; offers no complaint Constitutional: no complaints Cardiovascular: no complaints Gastrointestinal: no complaints Genitourinary: no complaints Exam/Review of Systems Vital Signs Vitals Vital Signs Date Time Temp Pulse Resp B/P Pulse Ox O2 Delivery O2 Flow Rate FiO2 02/07/17 09:18 97 90/50 02/07/17 07:30 98.9 20 96 02/05/17 21:00 Nasal Cannula 2.0 Intake and Output 02/06/17 02/06/17 02/07/17 15:00 23:00 07:00 Intake Total 900 ml 500 ml Output Total 200 ml Balance 700 ml 500 ml Exam Constitutional: alert, oriented Neck: non-tender, supple Respiratory: clear to auscultation, normal air movement Results Result Diagram: 02/06/17 0602 02/06/17601 Results 24 hrs Laboratory Tests Test 02/06/17 14:56 02/06/17 17:20 02/06/17 20:31 02/07/17 12:13 Bedside Glucose 82 134 129 116 Medications Medications Current Medications Furosemide (Lasix) 40 mg DAILY@06 PO Last administered on 02/07/17 06:45; Admin Dose 40 MG; Start 02/06/17 at 06:00 Insulin Human NPH (Humulin N) 7 unit DAILY@20 SC Last administered on 20:34; Admin Dose 7 UNIT; Start 02/05/17 at 22:00 Ticagrelor (Brilinta) 90 mg BID PO Last administered on 02/07/17 08:30; Admin Dose 90 MG; Start 02/05/17 at 22:00 Gabapentin (Neurontin) 300 mg TID PO Last administered on 02/07/17 12:22; Admin Dose 300 MG; Start 02/05/17 at 22:00 Alendronate Sodium (Fosamax) 70 mg We@0705 PO ; Start 02/11/17 at 07:05 Atorvastatin Calcium (Lipitor) 40 mg DAILY@21 PO Last administered on 20:32; Admin Dose 40 MG; Start 02/05/17 at 22:00 Aspirin (Halfprin) 81 mg DAILY PO Last administered on 02/07/17 08:29; Admin Dose 81 MG; Start 02/06/17 at 09:00 Duloxetine HCl (Cymbalta) 20 mg DAILY PO Last administered on 02/07/17 08:28; Admin Dose 20 MG; Start 02/06/17 at 09:00 Metoprolol Tartrate (Lopressor) 12.5 mg BID PO ; Start 02/05/17 at 22:00 Levothyroxine Sodium (Synthroid) 112 mcg DAILY@06 PO Last administered on 06:44; Admin Dose 112 MCG; Start 02/06/17 at 06:00 Insulin Glargine (Lantus) 13 unit DAILY@08 SC Last administered on 02/07/17 08 :28; Admin Dose 13 UNIT; Start 02/06/17 at 08:00 Miscellaneous Information 1 ea NOTE XX ; Start 02/05/17 at 22:00 Glucose (Glutose) 15 gm Q15M PRN PO DECREASED GLUCOSE; Start 02/05/17 at 22:00 Glucose (Glutose) 22.5 gm Q15M PRN PO DECREASED GLUCOSE; Start 02/05/17 at 22: 00 Dextrose (D50w Syringe) 25 ml Q15M PRN IV DECREASED GLUCOSE; Start 02/05/17 at 22:00 Dextrose (D50w Syringe) 50 ml Q15M PRN IV DECREASED GLUCOSE; Start 02/05/17 at 22:00 Glucagon (Glucagen) 1 mg Q15M PRN IM DECREASED GLUCOSE; Start 02/05/17 at 22:00 Glucose (Glutose) 15 gm Q15M PRN BUCCAL DECREASED GLUCOSE; Start 02/05/17 at 22 :00 Acetaminophen/ Hydrocodone Bitart ([place] (5/325)) 1 tab Q6H PRN PO MODERATE PAIN LEVEL 4-6 Last administered on 02/05/17 23:12; Admin Dose 1 TAB; Start at 23:00 Acetaminophen/ Hydrocodone Bitart ([place] (5/325)) 2 tab Q6H PRN PO SEVERE PAIN LEVEL 7-10; Start 02/05/17 at 23:00 Docusate Sodium (Colace) 100 mg BID PO Last administered on 02/07/17 08:28; Admin Dose 100 MG; Start 02/06/17 at 09:00 Bisacodyl (Dulcolax Supp) 10 mg DAILY PRN [place] CONSTIPATION; Start 02/06/17 at 05 :00 Magnesium Hydroxide (Milk Of Mag) 30 ml BID PRN PO CONSTIPATION; Start at 05:00 Lactulose (Enulose) 20 gm DAILY PRN PO CONSTIPATION; Start 02/06/17 at 05:00 CODY HENAO MD Feb 07, 2017 13:40
[2017-02-07 14:00] VITALS: BP 111/54; RESP 18
[2017-02-07] MEDS: GLUCOSE GEL 15 GRAM TUBE BUCCAL PRN (15:17)
[2017-02-07 19:35] VITALS: BP 106/51; RESP 20
[2017-02-07] MEDS: HYDROCODONE/APAP (5/325) TAB PO PRN (20:59)
[2017-02-07] MEDS: ATORVASTATIN 40 MG TAB PO SCH (21:01)
[2017-02-07] MEDS: NPH, HUMAN INSULIN ISOPHANE 3ML VIAL SC SCH (21:05)
[2017-02-08 03:01] VITALS: BP 117/57; RESP 18
[2017-02-08] MEDS: FUROSEMIDE 40 MG TAB PO SCH (06:00)
[2017-02-08] MEDS: LEVOTHYROXINE 112 MCG TAB PO SCH (06:43)
[2017-02-08] MEDS: INSULIN ASPART [NOVOLOG] 3 ML PEN SC SCH ×3 (08:12→17:27)
[2017-02-08] MEDS: INSULIN GLARGINE [LANtus] 3 ML PEN SC SCH (08:13)
[2017-02-08 08:35] VITALS: BP 97/43; PULSE 86
[2017-02-08] MEDS: TICAGRELOR 90 MG TABLET PO SCH ×2 (08:41→20:18)
[2017-02-08] MEDS: ASPIRIN (EC) 81 MG TAB PO SCH (08:42)
[2017-02-08] MEDS: DULOXETINE 20 MG CAP DR PO SCH (08:42)
[2017-02-08] MEDS: DOCUSATE SODIUM 100 MG CAP PO SCH ×2 (08:42→20:22)
[2017-02-08] MEDS: GABAPENTIN 300 MG CAP PO SCH (08:42)
[2017-02-08] MEDS: METOPROLOL 25 MG TAB PO SCH ×2 (08:44→20:23)
--- NOTE | 2017-02-08 10:04 | CONS ---
Date/Time of Note Date/Time of Note DATE: 02/08/17 TIME: 10:02 Assessment/Plan Assessment/Plan Additional Assessment/Plan 1.NSTEMI/ post-op s/p cabg x 2 - much improved, in rehab now - con't Med rx - MUCH BETTER NOW 2.cardiomyopathy-EF 40 prior to cabg - stable by exam, not in CHF - No INDICATION FOR ICD 3.Hypotension-borderline - no Sx - compliant with rehab 5.anemia- H/H stable - no bleeding now 8. COPD - no wheezing noted - imprved 9. Hypothyroid 10.DM-labile BS 11.Neck mass? with dysphagia. Now s/p bronch with findings of subglottic mass. Per ENT possibly secondary to extended intubation.decrreased in size on last assessment 12. carotid stenosis 14. Pleural effusion s/p thoracentesis - resolved Consultation Date/Type/Reason Admit Date/Time Feb 05, 2017 at 18:59 Type of Consultation: Endocrinology Referring Provider: JORGE MESSINA MD 24 HR Interval Summary Free Text/Dictation No acute change - doing well overall - will monitor clinically now ROS: No fever, no chills, no nausea, no vomiting, no diarrhea/constipation No recent weight changes No chest pain, no PND, no orthopnea No dizziness, blurred vision No thirst, no heat or cold intolerance Exam/Review of Systems Vital Signs Vitals Vital Signs Date Time Temp Pulse Resp B/P Pulse Ox O2 Delivery O2 Flow Rate FiO2 02/08/17 03:01 98.4 78 18 117/57 94 02/05/17 21:00 Nasal Cannula 2.0 Intake and Output 02/07/17 02/07/17 02/08/17 15:00 23:00 07:00 Intake Total 690 ml 420 ml Balance 690 ml 420 ml Exam General: WN/WD/NAD, AOx 3 HEENT: Unicetric/atraumatic/EOMI (follow commands) NECK: JVD elevated, no thyromegaly Lymph: no lymphadenopathy HEART: regular with no S3, II/ systolic murmur at apex, PMI left LUNGS: Coarse sounds ABD: soft, NT, ND, +BS : Intact Neuro: non focal SKIN: chronic changes EXT: trace edema Results Result Diagram: 02/06/17 0602 02/06/17 0602 Results 24 hrs Laboratory Tests Test 02/07/17 12:13 02/07/17 14:58 02/07/17 15:12 02/07/17 15:26 Bedside Glucose 116 46 *L 56 L 79 Test 02/07/17 15:46 02/07/17 16:16 02/07/17 17:21 02/07/17 21:00 Bedside Glucose 80 109 137 304 H Test 02/08/17 07:49 Bedside Glucose 120 Medications Medications Current Medications Furosemide (Lasix) 40 mg DAILY@06 PO Last administered on 02/07/17 06:45; Admin Dose 40 MG; Start 02/06/17 at 06:00 Insulin Human NPH (Humulin N) 7 unit DAILY@20 SC Last administered on 21:05; Admin Dose 7 UNIT; Start 02/05/17 at 22:00 Ticagrelor (Brilinta) 90 mg BID PO Last administered on 02/08/17 08:41; Admin Dose 90 MG; Start 02/05/17 at 22:00 Gabapentin (Neurontin) 300 mg TID PO Last administered on 02/08/17 08:42; Admin Dose 300 MG; Start 02/05/17 at 22:00 Alendronate Sodium (Fosamax) 70 mg We@0705 PO ; Start 02/11/17 at 07:05 Atorvastatin Calcium (Lipitor) 40 mg DAILY@21 PO Last administered on 21:01; Admin Dose 40 MG; Start 02/05/17 at 22:00 Aspirin (Halfprin) 81 mg DAILY PO Last administered on 02/08/17 08:42; Admin Dose 81 MG; Start 02/06/17 at 09:00 Duloxetine HCl (Cymbalta) 20 mg DAILY PO Last administered on 02/08/17 08:42; Admin Dose 20 MG; Start 02/06/17 at 09:00 Metoprolol Tartrate (Lopressor) 12.5 mg BID PO Last administered on 02/07/17 21:02; Admin Dose 12.5 MG; Start 02/05/17 at 22:00 Levothyroxine Sodium (Synthroid) 112 mcg DAILY@06 PO Last administered on 06:43; Admin Dose 112 MCG; Start 02/06/17 at 06:00 Insulin Glargine (Lantus) 13 unit DAILY@08 SC Last administered on 02/08/17 08 :13; Admin Dose 13 UNIT; Start 02/06/17 at 08:00 Miscellaneous Information 1 ea NOTE XX ; Start 02/05/17 at 22:00 Glucose (Glutose) 15 gm Q15M PRN PO DECREASED GLUCOSE; Start 02/05/17 at 22:00 Glucose (Glutose) 22.5 gm Q15M PRN PO DECREASED GLUCOSE; Start 02/05/17 at 22: 00 Dextrose (D50w Syringe) 25 ml Q15M PRN IV DECREASED GLUCOSE; Start 02/05/17 at 22:00 Dextrose (D50w Syringe) 50 ml Q15M PRN IV DECREASED GLUCOSE; Start 02/05/17 at 22:00 Glucagon (Glucagen) 1 mg Q15M PRN IM DECREASED GLUCOSE; Start 02/05/17 at 22:00 Glucose (Glutose) 15 gm Q15M PRN BUCCAL DECREASED GLUCOSE Last administered on 02/07/17 15:17; Admin Dose 15 GM; Start 02/05/17 at 22:00 Acetaminophen/ Hydrocodone Bitart ([place] (5/325)) 1 tab Q6H PRN PO MODERATE PAIN LEVEL 4-6 Last administered on 02/05/17 23:12; Admin Dose 1 TAB; Start at 23:00 Acetaminophen/ Hydrocodone Bitart ([place] (5/325)) 2 tab Q6H PRN PO SEVERE PAIN LEVEL 7-10 Last administered on 02/07/17 20:59; Admin Dose 2 TAB; Start at 23:00 Docusate Sodium (Colace) 100 mg BID PO Last administered on 02/08/17 08:42; Admin Dose 100 MG; Start 02/06/17 at 09:00 Bisacodyl (Dulcolax Supp) 10 mg DAILY PRN [place] CONSTIPATION; Start 02/06/17 at 05 :00 Magnesium Hydroxide (Milk Of Mag) 30 ml BID PRN [place] CONSTIPATION; Start at 05:00 Lactulose (Enulose) 20 gm DAILY PRN PO CONSTIPATION; Start 02/06/17 at 05:00 ARTIE MARADIAGA MD Feb 08, 2017 10:04
--- NOTE | 2017-02-08 11:58 | PN ---
Date/Time of Note Date/Time of Note DATE: 02/08/17 TIME: 11:55 Assessment/Plan VTE Prophylaxis VTE Prophylaxis Intervention: ambulation Lines/Catheters [facility] [place] [facility] Urinary Cath still in place: No Assessment/Plan Problems: (1) Status post aorto-coronary artery bypass graft Onset Date: ~ 01/26/2017 Status: Acute Comment: Splinting with postoperatively with rehabilitative care. (2) Mass of epiglottis Status: Acute Comment: Need to be followed up as an outpatient. ENT felt this was a traumatic event from intubation (3) COPD (chronic obstructive pulmonary disease) with chronic bronchitis Status: Chronic Comment: Good control on current regimen (4) Type 1 diabetes mellitus with diabetic polyneuropathy Status: Chronic Comment: He did have a single hypoglycemic reaction. Will adjust insulin times a smoother. In addition her peripheral neuropathy we will attempt to address by adjusting those medications as well (5) Acquired hypothyroidism Status: Chronic Comment: Continue with replacement therapy Subjective 24 Hr Interval Summary Free Text/Dictation She reports she is doing relatively fair. She is ambulating freely. Constitutional: no complaints (Denies fevers chills or sweats) Respiratory: no complaints Cardiovascular: no complaints Gastrointestinal: no complaints Genitourinary: no complaints Exam/Review of Systems Vital Signs Vitals Vital Signs Date Time Temp Pulse Resp B/P Pulse Ox O2 Delivery O2 Flow Rate FiO2 02/08/17 03:01 98.4 78 18 117/57 94 02/05/17 21:00 Nasal Cannula 2.0 Intake and Output 02/07/17 02/07/17 02/08/17 15:00 23:00 07:00 Intake Total 690 ml 420 ml Balance 690 ml 420 ml Exam Constitutional: alert, oriented Neck: non-tender, supple Respiratory: clear to auscultation, normal air movement Gastrointestinal: nl liver, spleen, non-tender, soft Results Result Diagram: 02/06/17 0602 02/06/17 0602 Results 24 hrs Laboratory Tests Test 02/07/17 12:13 02/07/17 14:58 02/07/17 15:12 02/07/17 15:26 Bedside Glucose 116 46 *L 56 L 79 Test 02/07/17 15:46 02/07/17 16:16 02/07/17 17:21 02/07/17 21:00 Bedside Glucose 80 109 137 304 H Test 02/08/17 07:49 Bedside Glucose 120 Medications Medications Current Medications Furosemide (Lasix) 40 mg DAILY@06 PO Last administered on 02/07/17 06:45; Admin Dose 40 MG; Start 02/06/17 at 06:00 Insulin Human NPH (Humulin N) 7 unit DAILY@20 SC Last administered on 21:05; Admin Dose 7 UNIT; Start 02/05/17 at 22:00 Ticagrelor (Brilinta) 90 mg BID PO Last administered on 02/08/17 08:41; Admin Dose 90 MG; Start 02/05/17 at 22:00 Gabapentin (Neurontin) 300 mg TID PO Last administered on 02/08/17 08:42; Admin Dose 300 MG; Start 02/05/17 at 22:00 Alendronate Sodium (Fosamax) 70 mg We@0705 PO ; Start 02/11/17 at 07:05 Atorvastatin Calcium (Lipitor) 40 mg DAILY@21 PO Last administered on 21:01; Admin Dose 40 MG; Start 02/05/17 at 22:00 Aspirin (Halfprin) 81 mg DAILY PO Last administered on 02/08/17 08:42; Admin Dose 81 MG; Start 02/06/17 at 09:00 Duloxetine HCl (Cymbalta) 20 mg DAILY PO Last administered on 02/08/17 08:42; Admin Dose 20 MG; Start 02/06/17 at 09:00 Metoprolol Tartrate (Lopressor) 12.5 mg BID PO Last administered on 02/07/17 21:02; Admin Dose 12.5 MG; Start 02/05/17 at 22:00 Levothyroxine Sodium (Synthroid) 112 mcg DAILY@06 PO Last administered on 06:43; Admin Dose 112 MCG; Start 02/06/17 at 06:00 Insulin Glargine (Lantus) 13 unit DAILY@08 SC Last administered on 02/08/17 08 :13; Admin Dose 13 UNIT; Start 02/06/17 at 08:00 Miscellaneous Information 1 ea NOTE XX ; Start 02/05/17 at 22:00 Glucose (Glutose) 15 gm Q15M PRN PO DECREASED GLUCOSE; Start 02/05/17 at 22:00 Glucose (Glutose) 22.5 gm Q15M PRN PO DECREASED GLUCOSE; Start 02/05/17 at 22: 00 Dextrose (D50w Syringe) 25 ml Q15M PRN IV DECREASED GLUCOSE; Start 02/05/17 at 22:00 Dextrose (D50w Syringe) 50 ml Q15M PRN IV DECREASED GLUCOSE; Start 02/05/17 at 22:00 Glucagon (Glucagen) 1 mg Q15M PRN IM DECREASED GLUCOSE; Start 02/05/17 at 22:00 Glucose (Glutose) 15 gm Q15M PRN BUCCAL DECREASED GLUCOSE Last administered on 02/07/17 15:17; Admin Dose 15 GM; Start 02/05/17 at 22:00 Acetaminophen/ Hydrocodone Bitart ([place] (5/325)) 1 tab Q6H PRN PO MODERATE PAIN LEVEL 4-6 Last administered on 02/05/17 23:12; Admin Dose 1 TAB; Start at 23:00 Acetaminophen/ Hydrocodone Bitart ([place] (5/325)) 2 tab Q6H PRN PO SEVERE PAIN LEVEL 7-10 Last administered on 02/07/17 20:59; Admin Dose 2 TAB; Start at 23:00 Docusate Sodium (Colace) 100 mg BID PO Last administered on 02/08/17 08:42; Admin Dose 100 MG; Start 02/06/17 at 09:00 Bisacodyl (Dulcolax Supp) 10 mg DAILY PRN [place] CONSTIPATION; Start 02/06/17 at 05 :00 Magnesium Hydroxide (Milk Of Mag) 30 ml BID PRN PO CONSTIPATION; Start at 05:00 Lactulose (Enulose) 20 gm DAILY PRN PO CONSTIPATION; Start 02/06/17 at 05:00 CODY HENAO MD Feb 08, 2017 11:58
--- NOTE | 2017-02-08 12:16 | CONS ---
Date/Time of Note Date/Time of Note DATE: 02/08/17 TIME: 12:14 Assessment/Plan Assessment/Plan Problems: (1) Type 1 diabetes mellitus with diabetic polyneuropathy Status: Chronic Comment: Hypoglycemic yesterday afternoon. This was followed by subsequent hyperglycemia due to overcorrection. Will not reduce midday insulin dose for now. Monitor and if having recurrent hypoglycemic episodes in the afternoon, then will cut back on midday Novolog Consultation Date/Type/Reason Admit Date/Time Feb 05, 2017 at 18:59 Initial Consult Date 01/14/2017 Type of Consultation: Endocrinology Reason for Consultation [address] Referring Provider: JORGE MESSINA MD 24 HR Interval Summary Constitutional: improved, no complaints Detailed Summary Respiratory: no complaints Cardiovascular: no complaints Gastrointestinal: no complaints Genitourinary: no complaints Musculoskeletal: no complaints Neurologic: no complaints Exam/Review of Systems Vital Signs Vitals VS - Last 72 Hours, by Label Date Time Temp Pulse Resp B/P Pulse Ox O2 Delivery O2 Flow Rate FiO2 02/08/17 03:01 98.4 78 18 117/57 94 02/07/17 19:35 98.8 103 20 106/51 94 02/07/17 14:00 98.4 106 18 111/54 95 02/07/17 09:18 97 90/50 02/07/17 07:30 98.9 94 20 87/48 96 02/06/17 20:00 98.7 85 18 98/52 91 02/06/17 07:59 98.3 85 18 101/52 97 02/06/17 02:00 98.3 87 18 110/61 95 02/05/17 21:00 Nasal Cannula 2.0 02/05/17 20:00 98.7 90 18 107/53 97 Vital Signs Date Time Temp Pulse Resp B/P Pulse Ox O2 Delivery O2 Flow Rate FiO2 02/08/17 03:01 98.4 78 18 117/57 94 02/05/17 21:00 Nasal Cannula 2.0 Intake and Output 02/07/17 02/07/17 02/08/17 15:00 23:00 07:00 Intake Total 690 ml 420 ml Balance 690 ml 420 ml Exam Constitutional: alert, oriented, well developed Respiratory: clear to auscultation, normal air movement Cardiovascular: nl pulses, regular rate and rhythm, No edema, No murmurs/extra sounds, No rub Gastrointestinal: bowel sounds, nl liver, spleen, non-tender, soft, No mass, No rebound or guarding Musculoskeletal: nl extremities to inspection Extremities: normal pulses, No clubbing, No cyanosis, No edema 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: BLUNGER LO[employer]ER II-XII intact, nl mental status, nl speech, nl strength Additional Comments Bedside Glucose - 72 Hours Test 02/05/17 23:02 02/06/17 08:04 02/06/17 12:40 02/06/17 14:56 Bedside Glucose 156mg/dL (70-220) 196mg/dL (70-220) 80mg/dL (70-220) 82mg/dL (70-220) Test 02/06/17 17:20 02/06/17 20:31 02/07/17 08:04 02/07/17 12:13 Bedside Glucose 134mg/dL (70-220) 129mg/dL (70-220) 103mg/dL (70-220) 116mg/dL (70-220) Test 02/07/17 14:58 02/07/17 15:12 02/07/17 15:26 02/07/17 15:46 Bedside Glucose 46mg/dL (70-220) *L 56mg/dL (70-220) L 79mg/dL (70-220) 80mg/dL (70-220) Test 02/07/17 16:16 02/07/17 17:21 02/07/17 21:00 02/08/17 07:49 Bedside Glucose 109mg/dL (70-220) 137mg/dL (70-220) 304mg/dL (70-220) H 120mg/dL (70-220) Test 02/08/17 11:49 Bedside Glucose 152mg/dL (70-220) Results Result Diagram: 02/06/17 0602 02/06/17 0602 Results 24 hrs Laboratory Tests Test 02/07/17 14:58 02/07/17 15:12 02/07/17 15:26 02/07/17 15:46 Bedside Glucose 46 *L 56 L 79 80 Test 02/07/17 16:16 02/07/17 17:21 02/07/17 21:00 02/08/17 07:49 Bedside Glucose 109 137 304 H 120 Test 02/08/17 11:49 Bedside Glucose 152 Medications Medications Current Medications Furosemide (Lasix) 40 mg DAILY@06 PO Last administered on 02/07/17 06:45; Admin Dose 40 MG; Start 02/06/17 at 06:00 Ticagrelor (Brilinta) 90 mg BID PO Last administered on 02/08/17 08:41; Admin Dose 90 MG; Start 02/05/17 at 22:00 Alendronate Sodium (Fosamax) 70 mg We@0705 PO ; Start 02/11/17 at 07:05 Atorvastatin Calcium (Lipitor) 40 mg DAILY@21 PO Last administered on 21:01; Admin Dose 40 MG; Start 02/05/17 at 22:00 Aspirin (Halfprin) 81 mg DAILY PO Last administered on 02/08/17 08:42; Admin Dose 81 MG; Start 02/06/17 at 09:00 Metoprolol Tartrate (Lopressor) 12.5 mg BID PO Last administered on 02/07/17 21:02; Admin Dose 12.5 MG; Start 02/05/17 at 22:00 Levothyroxine Sodium (Synthroid) 112 mcg DAILY@06 PO Last administered on 06:43; Admin Dose 112 MCG; Start 02/06/17 at 06:00 Miscellaneous Information 1 ea NOTE XX ; Start 02/05/17 at 22:00 Glucose (Glutose) 15 gm Q15M PRN PO DECREASED GLUCOSE; Start 02/05/17 at 22:00 Glucose (Glutose) 22.5 gm Q15M PRN PO DECREASED GLUCOSE; Start 02/05/17 at 22: 00 Dextrose (D50w Syringe) 25 ml Q15M PRN IV DECREASED GLUCOSE; Start 02/05/17 at 22:00 Dextrose (D50w Syringe) 50 ml Q15M PRN IV DECREASED GLUCOSE; Start 02/05/17 at 22:00 Glucagon (Glucagen) 1 mg Q15M PRN IM DECREASED GLUCOSE; Start 02/05/17 at 22:00 Glucose (Glutose) 15 gm Q15M PRN BUCCAL DECREASED GLUCOSE Last administered on 02/07/17 15:17; Admin Dose 15 GM; Start 02/05/17 at 22:00 Acetaminophen/ Hydrocodone Bitart ([place] (5/325)) 1 tab Q6H PRN PO MODERATE PAIN LEVEL 4-6 Last administered on 02/05/17 23:12; Admin Dose 1 TAB; Start at 23:00 Acetaminophen/ Hydrocodone Bitart ([place] (5/325)) 2 tab Q6H PRN PO SEVERE PAIN LEVEL 7-10 Last administered on 02/07/17 20:59; Admin Dose 2 TAB; Start at 23:00 Docusate Sodium (Colace) 100 mg BID PO Last administered on 02/08/17 08:42; Admin Dose 100 MG; Start 02/06/17 at 09:00 Bisacodyl (Dulcolax Supp) 10 mg DAILY PRN [place] CONSTIPATION; Start 02/06/17 at 05 :00 Magnesium Hydroxide (Milk Of Mag) 30 ml BID PRN PO CONSTIPATION; Start at 05:00 Lactulose (Enulose) 20 gm DAILY PRN PO CONSTIPATION; Start 02/06/17 at 05:00 Duloxetine HCl (Cymbalta) 30 mg DAILY PO ; Start 02/09/17 at 09:00 Gabapentin (Neurontin) 400 mg TID PO ; Start 02/08/17 at 13:00 Insulin Glargine (Lantus) 15 unit DAILY@08 SC ; Start 02/09/17 at 08:00 Insulin Human NPH (Humulin N) 5 unit DAILY@20 SC ; Start 02/08/17 at 20:00 DARYL MYERS MD Feb 08, 2017 12:16
[2017-02-08] MEDS: GABAPENTIN 400 MG CAP PO SCH ×2 (12:26→20:22)
[2017-02-08 13:25] VITALS: BP 103/54; PULSE 93
[2017-02-08] MEDS: HYDROCODONE/APAP (5/325) TAB PO PRN ×2 (13:56→20:24)
[2017-02-08 20:00] VITALS: BP 102/53; RESP 18
[2017-02-08] MEDS: NPH, HUMAN INSULIN ISOPHANE 3ML VIAL SC SCH (20:22)
[2017-02-08] MEDS: ATORVASTATIN 40 MG TAB PO SCH (20:22)
[2017-02-08] MEDS: GLUCOSE GEL 15 GRAM TUBE BUCCAL PRN ×2 (22:14→22:34)
[2017-02-09 02:00] VITALS: BP 178/81; RESP 18
[2017-02-09] MEDS: LEVOTHYROXINE 112 MCG TAB PO SCH (05:47)
[2017-02-09] MEDS: FUROSEMIDE 40 MG TAB PO SCH (05:48)
[2017-02-09 07:30] VITALS: BP 100/49; RESP 20
[2017-02-09] MEDS: INSULIN ASPART [NOVOLOG] 3 ML PEN SC SCH ×3 (07:35→18:02)
[2017-02-09] MEDS ORDERED: INSULIN GLARGINE [LANtus] 3 ML PEN SC SCH (08:00)
[2017-02-09] MEDS: METOPROLOL 25 MG TAB PO SCH ×2 (09:00→20:14)
[2017-02-09] MEDS: ASPIRIN (EC) 81 MG TAB PO SCH (09:06)
[2017-02-09] MEDS: GABAPENTIN 400 MG CAP PO SCH ×3 (09:06→20:14)
[2017-02-09] MEDS: HYDROCODONE/APAP (5/325) TAB PO PRN (09:06)
[2017-02-09] MEDS: DULOXETINE 30 MG CAP DR PO SCH (09:07)
[2017-02-09] MEDS: DOCUSATE SODIUM 100 MG CAP PO SCH ×2 (09:07→20:24)
[2017-02-09] MEDS: TICAGRELOR 90 MG TABLET PO SCH ×2 (09:07→20:23)
--- NOTE | 2017-02-09 11:19 | CONS ---
Date/Time of Note Date/Time of Note DATE: 02/09/17 TIME: 11:17 Consult Date/Type/Reason Admit Date/Time Feb 05, 2017 at 18:59 Type of Consultation: Endocrinology Ordering Provider: JORGE MESSINA MD Subjective motivated Objective Vital Signs Date Time Temp Pulse Resp B/P Pulse Ox O2 Delivery O2 Flow Rate FiO2 02/09/17 07:30 98.4 86 20 100/49 95 02/08/17 18:14 21 02/05/17 21:00 Nasal Cannula 2.0 Intake and Output 02/08/17 02/08/17 02/09/17 15:00 23:00 07:00 Intake Total 320 ml 360 ml Balance 320 ml 360 ml Interdisciplinary Team Conference: Bowel-continent Bladder-continent Integument- intact OT- Dressing-minimal Bathing-minimal Toileting-minimal PT Bed [id number] assist Transfers-contact guard assist Ambulation-standby assist 100 feet Interdisciplinary team conference held today please see note. Team is working towards discharge on February 11 with physical therapy , Occupational Therapy, and home health nursing follow-up. Results/Medications Result Diagram: 02/06/17 0602 02/08/17 2302 Results 24 hrs Laboratory Tests Test 02/08/17 11:49 02/08/17 17:18 02/08/17 20:14 02/08/17 22:11 Bedside Glucose 152 110 111 43 *L Test 02/08/17 22:29 02/08/17 22:45 02/08/17 23:00 02/08/17 23:02 Bedside Glucose 48 *L 65 L 80 Glucose Level 85 Test 02/09/17 02:27 02/09/17 08:02 02/09/17 08:13 02/09/17 08:42 Bedside Glucose 79 58 L 54 L 80 Medications Current Medications Furosemide (Lasix) 40 mg DAILY@06 PO Last administered on 02/07/17 06:45; Admin Dose 40 MG; Start 02/06/17 at 06:00 Ticagrelor (Brilinta) 90 mg BID PO Last administered on 02/09/17 09:07; Admin Dose 90 MG; Start 02/05/17 at 22:00 Alendronate Sodium (Fosamax) 70 mg We@0705 PO ; Start 02/11/17 at 07:05 Atorvastatin Calcium (Lipitor) 40 mg DAILY@21 PO Last administered on 20:22; Admin Dose 40 MG; Start 02/05/17 at 22:00 Aspirin (Halfprin) 81 mg DAILY PO Last administered on 02/09/17 09:06; Admin Dose 81 MG; Start 02/06/17 at 09:00 Metoprolol Tartrate (Lopressor) 12.5 mg BID PO Last administered on 02/08/17 20:23; Admin Dose 12.5 MG; Start 02/05/17 at 22:00 Levothyroxine Sodium (Synthroid) 112 mcg DAILY@06 PO Last administered on 05:47; Admin Dose 112 MCG; Start 02/06/17 at 06:00 Miscellaneous Information 1 ea NOTE XX ; Start 02/05/17 at 22:00 Glucose (Glutose) 15 gm Q15M PRN PO DECREASED GLUCOSE; Start 02/05/17 at 22:00 Glucose (Glutose) 22.5 gm Q15M PRN PO DECREASED GLUCOSE; Start 02/05/17 at 22: 00 Dextrose (D50w Syringe) 25 ml Q15M PRN IV DECREASED GLUCOSE; Start 02/05/17 at 22:00 Dextrose (D50w Syringe) 50 ml Q15M PRN IV DECREASED GLUCOSE; Start 02/05/17 at 22:00 Glucagon (Glucagen) 1 mg Q15M PRN IM DECREASED GLUCOSE; Start 02/05/17 at 22:00 Glucose (Glutose) 15 gm Q15M PRN BUCCAL DECREASED GLUCOSE Last administered on 02/08/17 22:34; Admin Dose 15 GM; Start 02/05/17 at 22:00 Acetaminophen/ Hydrocodone Bitart ([place] (5/325)) 1 tab Q6H PRN PO MODERATE PAIN LEVEL 4-6 Last administered on 02/08/17 20:24; Admin Dose 1 TAB; Start at 23:00 Acetaminophen/ Hydrocodone Bitart ([place] (5/325)) 2 tab Q6H PRN PO SEVERE PAIN LEVEL 7-10 Last administered on 02/09/17 09:06; Admin Dose 2 TAB; Start at 23:00 Docusate Sodium (Colace) 100 mg BID PO Last administered on 02/09/17 09:07; Admin Dose 100 MG; Start 02/06/17 at 09:00 Bisacodyl (Dulcolax Supp) 10 mg DAILY PRN [place] CONSTIPATION; Start 02/06/17 at 05 :00 Magnesium Hydroxide (Milk Of Mag) 30 ml BID PRN PO CONSTIPATION; Start at 05:00 Lactulose (Enulose) 20 gm DAILY PRN PO CONSTIPATION Last administered on 09:06; Admin Dose 20 GM; Start 02/06/17 at 05:00 Duloxetine HCl (Cymbalta) 30 mg DAILY PO Last administered on 02/09/17 09:07; Admin Dose 30 MG; Start 02/09/17 at 09:00 Gabapentin (Neurontin) 400 mg TID PO Last administered on 02/09/17 09:06; Admin Dose 400 MG; Start 02/08/17 at 13:00 Insulin Glargine (Lantus) 15 unit DAILY@08 SC Last administered on 02/09/17 09 :06; Admin Dose 15 UNIT; Start 02/09/17 at 08:00 Insulin Human NPH (Humulin N) 5 unit DAILY@20 SC Last administered on 20:22; Admin Dose 5 UNIT; Start 02/08/17 at 20:00 JORGE MESSINA MD Feb 09, 2017 11:19
--- NOTE | 2017-02-09 11:46 | CONS ---
Date/Time of Note Date/Time of Note DATE: 02/09/17 TIME: 11:44 Assessment/Plan Assessment/Plan Chief Complaint/Hosp Course IMP: 1.NSTEMI-peak trop>60 Now dowtrended significantly s/p LHC with patent RCA stents and high grade disease of LAD/LCX with small caliber vessels. Now post- op s/p cabg x 2 2.cardiomyopathy-EF 40 prior to cabg 3.Hypotension-borderline. 5.anemia 8. COPD 9. Hypothyroid 10.DM-labile BS 11.Neck mass? with dysphagia. Now s/p bronch with findings of subglottic mass. Per ENT possibly secondary to extended intubation.decrreased in size on last assessment 12. carotid stenosis 14. Pleural effusion s/p thoracentesis Recc: -Now in acute rehab -Continue BB low dose as tolerated -Continue asa -Continue brilinta. -Continue statin -Smoking cessation -Follow BS closely -Continue daily lasix as tolerated which I will decrease to 20 daily and follow volume status closely -Continue bronchodilators -PT/OT -possible d/c 1-2 days as long as BP remain stable Problems: Consultation Date/Type/Reason Admit Date/Time Feb 05, 2017 at 18:59 Initial Consult Date 02/06/2017 Type of Consultation: cardiology Reason for Consultation nstemi Referring Provider: JORGE MESSINA MD Exam/Review of Systems Vital Signs Vitals Vital Signs Date Time Temp Pulse Resp B/P Pulse Ox O2 Delivery O2 Flow Rate FiO2 02/09/17 07:30 98.4 86 20 100/49 95 02/08/17 18:14 21 02/05/17 21:00 Nasal Cannula 2.0 Intake and Output 02/08/17 02/08/17 02/09/17 15:00 23:00 07:00 Intake Total 320 ml 360 ml Balance 320 ml 360 ml Exam Review of Systems: CONSTITUTIONAL: No fevers, chills. PULMONARY: No sob CARDIOVASCULAR: No chest pain/palpitations GASTROINTESTINAL: No nausea/vomiting. GENITOURINARY: No hematuria/dysuria. MUSCULOSKELETAL: No myagias/arthalgias. PSYCHIATRIC: The patient denies depression. NEUROLOGIC: No weakness Constitutional: alert, oriented Psych: no complaints Head: normocephalic ENMT: mucosa pink and moist Neck: jvd (8 cm water), supple Respiratory: clear to auscultation Cardiovascular: other (sternotomy c/d/i), regular rate and rhythm Gastrointestinal: non-tender, soft Musculoskeletal: muscle tone (normal) Extremities: edema (none) 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: other (No focal deficits) Results Result Diagram: 02/06/17 0602 02/08/17 2302 Results 24 hrs Laboratory Tests Test 02/08/17 11:49 02/08/17 17:18 02/08/17 20:14 02/08/17 22:11 Bedside Glucose 152 110 111 43 *L Test 02/08/17 22:29 02/08/17 22:45 02/08/17 23:00 02/08/17 23:02 Bedside Glucose 48 *L 65 L 80 Glucose Level 85 Test 02/09/17 02:27 02/09/17 08:02 02/09/17 08:13 02/09/17 08:42 Bedside Glucose 79 58 L 54 L 80 Medications Medications Current Medications Furosemide (Lasix) 40 mg DAILY@06 PO Last administered on 02/07/17 06:45; Admin Dose 40 MG; Start 02/06/17 at 06:00 Ticagrelor (Brilinta) 90 mg BID PO Last administered on 02/09/17 09:07; Admin Dose 90 MG; Start 02/05/17 at 22:00 Alendronate Sodium (Fosamax) 70 mg We@0705 PO ; Start 02/11/17 at 07:05 Atorvastatin Calcium (Lipitor) 40 mg DAILY@21 PO Last administered on 20:22; Admin Dose 40 MG; Start 02/05/17 at 22:00 Aspirin (Halfprin) 81 mg DAILY PO Last administered on 02/09/17 09:06; Admin Dose 81 MG; Start 02/06/17 at 09:00 Metoprolol Tartrate (Lopressor) 12.5 mg BID PO Last administered on 02/08/17 20:23; Admin Dose 12.5 MG; Start 02/05/17 at 22:00 Levothyroxine Sodium (Synthroid) 112 mcg DAILY@06 PO Last administered on 05:47; Admin Dose 112 MCG; Start 02/06/17 at 06:00 Miscellaneous Information 1 ea NOTE XX ; Start 02/05/17 at 22:00 Glucose (Glutose) 15 gm Q15M PRN PO DECREASED GLUCOSE; Start 02/05/17 at 22:00 Glucose (Glutose) 22.5 gm Q15M PRN PO DECREASED GLUCOSE; Start 02/05/17 at 22: 00 Dextrose (D50w Syringe) 25 ml Q15M PRN IV DECREASED GLUCOSE; Start 02/05/17 at 22:00 Dextrose (D50w Syringe) 50 ml Q15M PRN IV DECREASED GLUCOSE; Start 02/05/17 at 22:00 Glucagon (Glucagen) 1 mg Q15M PRN IM DECREASED GLUCOSE; Start 02/05/17 at 22:00 Glucose (Glutose) 15 gm Q15M PRN BUCCAL DECREASED GLUCOSE Last administered on 02/08/17 22:34; Admin Dose 15 GM; Start 02/05/17 at 22:00 Acetaminophen/ Hydrocodone Bitart ([place] (5/325)) 1 tab Q6H PRN PO MODERATE PAIN LEVEL 4-6 Last administered on 02/08/17 20:24; Admin Dose 1 TAB; Start at 23:00 Acetaminophen/ Hydrocodone Bitart ([place] (5/325)) 2 tab Q6H PRN PO SEVERE PAIN LEVEL 7-10 Last administered on 02/09/17 09:06; Admin Dose 2 TAB; Start at 23:00 Docusate Sodium (Colace) 100 mg BID PO Last administered on 02/09/17 09:07; Admin Dose 100 MG; Start 02/06/17 at 09:00 Bisacodyl (Dulcolax Supp) 10 mg DAILY PRN [place] CONSTIPATION; Start 02/06/17 at 05 :00 Magnesium Hydroxide (Milk Of Mag) 30 ml BID PRN PO CONSTIPATION; Start at 05:00 Lactulose (Enulose) 20 gm DAILY PRN PO CONSTIPATION Last administered on 09:06; Admin Dose 20 GM; Start 02/06/17 at 05:00 Duloxetine HCl (Cymbalta) 30 mg DAILY PO Last administered on 02/09/17 09:07; Admin Dose 30 MG; Start 02/09/17 at 09:00 Gabapentin (Neurontin) 400 mg TID PO Last administered on 02/09/17 09:06; Admin Dose 400 MG; Start 02/08/17 at 13:00 Insulin Glargine (Lantus) 15 unit DAILY@08 SC Last administered on 02/09/17 09 :06; Admin Dose 15 UNIT; Start 02/09/17 at 08:00 Insulin Human NPH (Humulin N) 5 unit DAILY@20 SC Last administered on 20:22; Admin Dose 5 UNIT; Start 02/08/17 at 20:00 RHONDA PENA Feb 09, 2017 11:46
--- NOTE | 2017-02-09 13:32 | CONS ---
Date/Time of Note Date/Time of Note DATE: 02/09/17 TIME: 13:29 Assessment/Plan Assessment/Plan Problems: (1) Type 1 diabetes mellitus with diabetic polyneuropathy Status: Chronic Comment: BG has been trending down of late. This am hypoglycemic and Novolog held resulting in hyperglycemia. Will reduce lantus from 15 to 13 units qam and reeval tomorrow. Consultation Date/Type/Reason Admit Date/Time Feb 05, 2017 at 18:59 Initial Consult Date 01/14/2017 Type of Consultation: Endocrinology Reason for Consultation T1DM OOC Referring Provider: JORGE MESSINA MD 24 HR Interval Summary Constitutional: improved, no complaints Detailed Summary Respiratory: no complaints Cardiovascular: no complaints Gastrointestinal: no complaints Genitourinary: no complaints Musculoskeletal: no complaints Neurologic: no complaints Endocrine: other (BG high and low) Exam/Review of Systems Vital Signs Vitals VS - Last 72 Hours, by Label Date Time Temp Pulse Resp B/P Pulse Ox O2 Delivery O2 Flow Rate FiO2 02/09/17 07:30 98.4 86 20 100/49 95 02/09/17 02:00 98.0 74 18 178/81 96 02/08/17 20:00 98.6 93 18 102/53 94 02/08/17 18:14 92 21 02/08/17 13:25 93 103/54 02/08/17 08:35 86 97/43 02/08/17 03:01 98.4 78 18 117/57 94 02/07/17 19:35 98.8 103 20 106/51 94 02/07/17 14:00 98.4 106 18 111/54 95 02/07/17 09:18 97 90/50 02/07/17 07:30 98.9 94 20 87/48 96 02/06/17 20:00 98.7 85 18 98/52 91 Vital Signs Date Time Temp Pulse Resp B/P Pulse Ox O2 Delivery O2 Flow Rate FiO2 02/09/17 07:30 98.4 86 20 100/49 95 02/08/17 18:14 21 02/05/17 21:00 Nasal Cannula 2.0 Intake and Output 02/08/17 02/08/17 02/09/17 15:00 23:00 07:00 Intake Total 320 ml 360 ml Balance 320 ml 360 ml Exam Constitutional: alert, oriented, well developed Respiratory: clear to auscultation, normal air movement Cardiovascular: nl pulses, regular rate and rhythm, No edema, No murmurs/extra sounds, No rub Gastrointestinal: bowel sounds, nl liver, spleen, non-tender, soft, No mass, No rebound or guarding Musculoskeletal: nl extremities to inspection Extremities: normal pulses, No clubbing, No cyanosis, No edema 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: 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, nl mental status, nl speech, nl strength Additional Comments Bedside Glucose - 72 Hours Test 02/06/17 14:56 02/06/17 17:20 02/06/17 20:31 02/07/17 08:04 Bedside Glucose 82mg/dL (70-220) 134mg/dL (70-220) 129mg/dL (70-220) 103mg/dL (70-220) Test 02/07/17 12:13 02/07/17 14:58 02/07/17 15:12 02/07/17 15:26 Bedside Glucose 116mg/dL (70-220) 46mg/dL (70-220) *L 56mg/dL (70-220) L 79mg/dL (70-220) Test 02/07/17 15:46 02/07/17 16:16 02/07/17 17:21 02/07/17 21:00 Bedside Glucose 80mg/dL (70-220) 109mg/dL (70-220) 137mg/dL (70-220) 304mg/dL (70-220) H Test 02/08/17 07:49 02/08/17 11:49 02/08/17 17:18 02/08/17 20:14 Bedside Glucose 120mg/dL (70-220) 152mg/dL (70-220) 110mg/dL (70-220) 111mg/dL (70-220) Test 02/08/17 22:11 02/08/17 22:29 02/08/17 22:45 02/08/17 23:00 Bedside Glucose 43mg/dL (70-220) *L 48mg/dL (70-220) *L 65mg/dL (70-220) L 80mg/dL (70-220) Test 02/09/17 02:27 02/09/17 08:02 02/09/17 08:13 02/09/17 08:42 Bedside Glucose 79mg/dL (70-220) 58mg/dL (70-220) L 54mg/dL (70-220) L 80mg/dL (70-220) Test 02/09/17 12:14 Bedside Glucose 377mg/dL (70-220) H Results Result Diagram: 02/06/17 0602 02/08/17 2302 Results 24 hrs Laboratory Tests Test 02/08/17 17:18 02/08/17 20:14 02/08/17 22:11 02/08/17 22:29 Bedside Glucose 110 111 43 *L 48 *L Test 02/08/17 22:45 02/08/17 23:00 02/08/17 23:02 02/09/17 02:27 Bedside Glucose 65 L 80 79 Glucose Level 85 Test 02/09/17 08:02 02/09/17 08:13 02/09/17 08:42 02/09/17 12:14 Bedside Glucose 58 L 54 L 80 377 H Medications Medications Current Medications Ticagrelor (Brilinta) 90 mg BID PO Last administered on 02/09/17 09:07; Admin Dose 90 MG; Start 02/05/17 at 22:00 Alendronate Sodium (Fosamax) 70 mg We@0705 PO ; Start 02/11/17 at 07:05 Atorvastatin Calcium (Lipitor) 40 mg DAILY@21 PO Last administered on 20:22; Admin Dose 40 MG; Start 02/05/17 at 22:00 Aspirin (Halfprin) 81 mg DAILY PO Last administered on 02/09/17 09:06; Admin Dose 81 MG; Start 02/06/17 at 09:00 Metoprolol Tartrate (Lopressor) 12.5 mg BID PO Last administered on 02/08/17 20:23; Admin Dose 12.5 MG; Start 02/05/17 at 22:00 Levothyroxine Sodium (Synthroid) 112 mcg DAILY@06 PO Last administered on 05:47; Admin Dose 112 MCG; Start 02/06/17 at 06:00 Miscellaneous Information 1 ea NOTE XX ; Start 02/05/17 at 22:00 Glucose (Glutose) 15 gm Q15M PRN PO DECREASED GLUCOSE; Start 02/05/17 at 22:00 Glucose (Glutose) 22.5 gm Q15M PRN PO DECREASED GLUCOSE; Start 02/05/17 at 22: 00 Dextrose (D50w Syringe) 25 ml Q15M PRN IV DECREASED GLUCOSE; Start 02/05/17 at 22:00 Dextrose (D50w Syringe) 50 ml Q15M PRN IV DECREASED GLUCOSE; Start 02/05/17 at 22:00 Glucagon (Glucagen) 1 mg Q15M PRN IM DECREASED GLUCOSE; Start 02/05/17 at 22:00 Glucose (Glutose) 15 gm Q15M PRN BUCCAL DECREASED GLUCOSE Last administered on 02/08/17 22:34; Admin Dose 15 GM; Start 02/05/17 at 22:00 Acetaminophen/ Hydrocodone Bitart ([place] (5/325)) 1 tab Q6H PRN PO MODERATE PAIN LEVEL 4-6 Last administered on 02/08/17 20:24; Admin Dose 1 TAB; Start at 23:00 Acetaminophen/ Hydrocodone Bitart ([place] (5/325)) 2 tab Q6H PRN PO SEVERE PAIN LEVEL 7-10 Last administered on 02/09/17 09:06; Admin Dose 2 TAB; Start at 23:00 Docusate Sodium (Colace) 100 mg BID PO Last administered on 02/09/17 09:07; Admin Dose 100 MG; Start 02/06/17 at 09:00 Bisacodyl (Dulcolax Supp) 10 mg DAILY PRN [place] CONSTIPATION; Start 02/06/17 at 05 :00 Magnesium Hydroxide (Milk Of Mag) 30 ml BID PRN PO CONSTIPATION; Start at 05:00 Lactulose (Enulose) 20 gm DAILY PRN PO CONSTIPATION Last administered on 09:06; Admin Dose 20 GM; Start 02/06/17 at 05:00 Duloxetine HCl (Cymbalta) 30 mg DAILY PO Last administered on 02/09/17 09:07; Admin Dose 30 MG; Start 02/09/17 at 09:00 Gabapentin (Neurontin) 400 mg TID PO Last administered on 02/09/17 12:34; Admin Dose 400 MG; Start 02/08/17 at 13:00 Insulin Human NPH (Humulin N) 5 unit DAILY@20 SC Last administered on 8/27/ 17at 20:22; Admin Dose 5 UNIT; Start 02/08/17 at 20:00 Furosemide (Lasix) 20 mg DAILY PO ; Start 02/10/17 at 09:00 Insulin Glargine (Lantus) 13 unit DAILY@08 SC ; Start 02/10/17 at 08:00 DARYL MYERS MD Feb 09, 2017 13:32
[2017-02-09 14:00] VITALS: BP 109/73; RESP 20
--- NOTE | 2017-02-09 14:05 | CONS ---
Date/Time of Note Date/Time of Note DATE: 02/09/17 TIME: 14:02 Assessment/Plan Assessment/Plan Chief Complaint/Hosp Course 1. Multivessel CAD. -Status post CABG 2. DEE to LAD, SVG-OM 01/27/17. -Continue aspirin, Brilinta and statin. 2. Systolic congestive heart failure with pleural effusion. Currently stable. -Continue diuretics beta-blockers as tolerated. Of note, patient also had hx of thoracentesis. 3. Type 1 DM-with hypoglycemic episodes -Continue Accu-Cheks and adjusted insulin regimen recommended by client associate. 4. L sided subglottic lesion -For outpatient ENT follow-up 5. Hypothyroidism. -Continue Synthroid. 6. History of atrial fibrillation. Now in sinus rhythm. 7. Ischemic cardiomyopathy -Continue current medical management. 8. Debility. -Continue with rehabilitation. 9. Dysphagia, now tolerating mechanical soft diet. Plan: Today patient with Pleuritic chest wall pain. We will F/u Xray.Tramadol /Cough suppressant PRN. Case discussed with . Problems: Consultation Date/Type/Reason Admit Date/Time Feb 05, 2017 at 18:59 Initial Consult Date Type of Consultation: Endocrinology Referring Provider: JORGE MESSINA MD 24 HR Interval Summary Free Text/Dictation Patient complains of right-sided chest wall pain with deep inspiration. No relief with [place]. She also had hypoglycemic events requiring insulin adjustment Exam/Review of Systems Vital Signs Vitals Vital Signs Date Time Temp Pulse Resp B/P Pulse Ox O2 Delivery O2 Flow Rate FiO2 02/09/17 07:30 98.4 86 20 100/49 95 02/08/17 18:14 21 02/05/17 21:00 Nasal Cannula 2.0 Intake and Output 02/08/17 02/08/17 02/09/17 14:59 22:59 06:59 Intake Total 320 ml 360 ml Balance 320 ml 360 ml Exam General: female, who also looks older than what she really is, not in any acute distress . HEENT: Normocephalic, Atraumatic, No laceration or hematoma; Eyes: PEERL, Conjunctiva clear, Anicteric sclera Neck: Supple without any lymphadenopathy, nontender, no JVD, no carotid bruits, trachea midline, no thyromegaly Cardiac: S1, S2 auscultated, regular rhythm and rate, no mumurs or gallop Pulmonary: Normal respiratory effort. Chest clear to auscultation bilaterally, no adventitious breath sounds GI: Abdomen normal to inspection. Soft, non tender, non- distended, no masses, no rebound tenderness or guarding. Bowel sounds active on all four quadrants Genitourinary: Deferred Extremities: No cyanosis, clubbing, or edema. Pulses [2+] bilaterally. Full ROM on all four extremities. No focal weakness appreciated. Neurologic: Alert to person, place, time, and situation. Affect appropriate, intact sensation. Skin: Midsternal incision site intact. Clean,dry, and intact. No ecchymosis, no rashes, or lesions Results Result Diagram: 02/06/17 0602 02/08/17 2302 Results 24 hrs Laboratory Tests Test 02/08/17 17:18 02/08/17 20:14 02/08/17 22:11 02/08/17 22:29 Bedside Glucose 110 111 43 *L 48 *L Test 02/08/17 22:45 02/08/17 23:00 02/08/17 23:02 02/09/17 02:27 Bedside Glucose 65 L 80 79 Glucose Level 85 Test 02/09/17 08:02 02/09/17 08:13 02/09/17 08:42 02/09/17 12:14 Bedside Glucose 58 L 54 L 80 377 H Medications Medications Current Medications Ticagrelor (Brilinta) 90 mg BID PO Last administered on 02/09/17 09:07; Admin Dose 90 MG; Start 02/05/17 at 22:00 Alendronate Sodium (Fosamax) 70 mg We@0705 PO ; Start 02/11/17 at 07:05 Atorvastatin Calcium (Lipitor) 40 mg DAILY@21 PO Last administered on 20:22; Admin Dose 40 MG; Start 02/05/17 at 22:00 Aspirin (Halfprin) 81 mg DAILY PO Last administered on 02/09/17 09:06; Admin Dose 81 MG; Start 02/06/17 at 09:00 Metoprolol Tartrate (Lopressor) 12.5 mg BID PO Last administered on 02/08/17 20:23; Admin Dose 12.5 MG; Start 02/05/17 at 22:00 Levothyroxine Sodium (Synthroid) 112 mcg DAILY@06 PO Last administered on 05:47; Admin Dose 112 MCG; Start 02/06/17 at 06:00 Miscellaneous Information 1 ea NOTE XX ; Start 02/05/17 at 22:00 Glucose (Glutose) 15 gm Q15M PRN PO DECREASED GLUCOSE; Start 02/05/17 at 22:00 Glucose (Glutose) 22.5 gm Q15M PRN PO DECREASED GLUCOSE; Start 02/05/17 at 22: 00 Dextrose (D50w Syringe) 25 ml Q15M PRN IV DECREASED GLUCOSE; Start 02/05/17 at 22:00 Dextrose (D50w Syringe) 50 ml Q15M PRN IV DECREASED GLUCOSE; Start 02/05/17 at 22:00 Glucagon (Glucagen) 1 mg Q15M PRN IM DECREASED GLUCOSE; Start 02/05/17 at 22:00 Glucose (Glutose) 15 gm Q15M PRN BUCCAL DECREASED GLUCOSE Last administered on 02/08/17 22:34; Admin Dose 15 GM; Start 02/05/17 at 22:00 Acetaminophen/ Hydrocodone Bitart ([place] (5/325)) 1 tab Q6H PRN PO MODERATE PAIN LEVEL 4-6 Last administered on 02/08/17 20:24; Admin Dose 1 TAB; Start at 23:00 Acetaminophen/ Hydrocodone Bitart ([place] (5/325)) 2 tab Q6H PRN PO SEVERE PAIN LEVEL 7-10 Last administered on 02/09/17 09:06; Admin Dose 2 TAB; Start at 23:00 Docusate Sodium (Colace) 100 mg BID PO Last administered on 02/09/17 09:07; Admin Dose 100 MG; Start 02/06/17 at 09:00 Bisacodyl (Dulcolax Supp) 10 mg DAILY PRN [place] CONSTIPATION; Start 02/06/17 at 05 :00 Magnesium Hydroxide (Milk Of Mag) 30 ml BID PRN PO CONSTIPATION; Start at 05:00 Lactulose (Enulose) 20 gm DAILY PRN PO CONSTIPATION Last administered on 09:06; Admin Dose 20 GM; Start 02/06/17 at 05:00 Duloxetine HCl (Cymbalta) 30 mg DAILY PO Last administered on 02/09/17 09:07; Admin Dose 30 MG; Start 02/09/17 at 09:00 Gabapentin (Neurontin) 400 mg TID PO Last administered on 02/09/17 12:34; Admin Dose 400 MG; Start 02/08/17 at 13:00 Insulin Human NPH (Humulin N) 5 unit DAILY@20 SC Last administered on 20:22; Admin Dose 5 UNIT; Start 02/08/17 at 20:00 Furosemide (Lasix) 20 mg DAILY PO ; Start 02/10/17 at 09:00 Insulin Glargine (Lantus) 13 unit DAILY@08 SC ; Start 02/10/17 at 08:00 TAD HIGGINS NP Feb 09, 2017 14:05
--- NOTE | 2017-02-09 14:08 | RADRPT ---
PROCEDURE: XR Chest. CLINICAL INDICATION: Chest pain TECHNIQUE: A single portable view of the chest was obtained. COMPARISON: 02/04/2017 from 05:05 p.m. FINDINGS: A prior median sternotomy is once again seen. The aorta is tortuous and atherosclerotic. The cardi omediastinal silhouette is otherwise stable. A left pleural effusion is seen with left basilar air s pace disease which has not changed significantly. Elevation of the left hemidiaphragm is seen. Mil d prominence of the pulmonary vasculature is again noted. The soft tissues and osseous structures d emonstrate benign age related senescent changes. IMPRESSION: 1. Left pleural effusion and left basilar air space disease which has not changed significantly. 2. Mild prominence of the pulmonary vasculature again seen which appears stable. RPTAT: HPNM Physician Lexie Date Time Electronically viewed and signed by Perry Damon Physician on 02/09/2017 14:07 /
[2017-02-09] MEDS ORDERED: GUAIFENESIN/DM 5ML CUP PO PRN (14:30)
[2017-02-09 20:00] VITALS: BP 106/54; RESP 18
[2017-02-09] MEDS: ATORVASTATIN 40 MG TAB PO SCH (20:14)
[2017-02-09] MEDS: NPH, HUMAN INSULIN ISOPHANE 3ML VIAL SC SCH (20:23)
[2017-02-10 02:00] VITALS: BP 103/61; RESP 18
[2017-02-10] MEDS: LEVOTHYROXINE 112 MCG TAB PO SCH (06:27)
[2017-02-10] MEDS: INSULIN ASPART [NOVOLOG] 3 ML PEN SC SCH ×5 (07:53→21:01)
[2017-02-10 08:00] VITALS: BP 100/58; RESP 18
[2017-02-10] MEDS ORDERED: INSULIN GLARGINE [LANtus] 3 ML PEN SC SCH (08:00)
[2017-02-10] MEDS: traMADol 50 MG TAB PO PRN ×2 (08:31→18:11)
[2017-02-10] MEDS: GABAPENTIN 400 MG CAP PO SCH ×3 (08:32→20:56)
[2017-02-10] MEDS: DOCUSATE SODIUM 100 MG CAP PO SCH ×2 (08:33→21:00)
[2017-02-10] MEDS: DULOXETINE 30 MG CAP DR PO SCH (08:33)
[2017-02-10] MEDS: ASPIRIN (EC) 81 MG TAB PO SCH (08:33)
[2017-02-10] MEDS: TICAGRELOR 90 MG TABLET PO SCH ×2 (08:46→20:59)
[2017-02-10] MEDS: FUROSEMIDE 20 MG TAB PO SCH (09:00)
[2017-02-10] MEDS: METOPROLOL 25 MG TAB PO SCH ×2 (09:00→20:57)
--- NOTE | 2017-02-10 09:31 | CONS ---
Date/Time of Note Date/Time of Note DATE: 02/10/17 TIME: 09:29 Assessment/Plan Assessment/Plan Additional Assessment/Plan 1.NSTEMI/ post-op s/p cabg x 2 - much improved, in rehab now - con't Med rx - MUCH BETTER NOW 2.cardiomyopathy-EF 40 prior to cabg - stable by exam, not in CHF - No INDICATION FOR ICD - lasix adjusted per Dr. Adames yesterday - reasonable fluid status now. 3.Hypotension-borderline - no Sx - compliant with rehab 5.anemia- H/H stable - no bleeding now 8. COPD - no wheezing noted - improved 9. Hypothyroid 10.DM-labile BS 11.Neck mass? with dysphagia. Now s/p bronch with findings of subglottic mass. Per ENT possibly secondary to extended intubation.decrreased in size on last assessment 12. carotid stenosis - no intervention planned now 14. Pleural effusion s/p thoracentesis - resolved Consultation Date/Type/Reason Admit Date/Time Feb 05, 2017 at 18:59 Type of Consultation: Endocrinology Referring Provider: JORGE MESSINA MD 24 HR Interval Summary Free Text/Dictation NO acute events - BP in good range - con't to imp[rove with rehab. ROS: No fever, no chills, no nausea, no vomiting, no diarrhea/constipation No recent weight changes No chest pain, no PND, no orthopnea No dizziness, blurred vision No thirst, no heat or cold intolerance Exam/Review of Systems Vital Signs Vitals Vital Signs Date Time Temp Pulse Resp B/P Pulse Ox O2 Delivery O2 Flow Rate FiO2 02/10/17 08:00 98.4 85 18 100/58 97 02/10/17 04:59 21 Intake and Output 02/09/17 02/09/17 02/10/17 15:00 23:00 07:00 Intake Total 1200 ml 120 ml Balance 1200 ml 120 ml Exam General: WN/WD/NAD, AOx 3 HEENT: Unicetric/atraumatic/EOMI (follows commands) NECK: JVD elevated, no thyromegaly Lymph: no lymphadenopathy HEART: regular with no S3, II/ systolic murmur at apex, scar healing well, PMI L LUNGS: Coarse sounds ABD: soft, NT, ND, +BS : Intact Neuro: non focal SKIN: chronic changes EXT: trace edema Results Result Diagram: 02/06/17 0602 02/08/17 2302 Results 24 hrs Laboratory Tests Test 02/09/17 12:14 02/09/17 17:31 02/09/17 20:11 02/10/17 07:47 Bedside Glucose 377 H 297 H 225 H 155 Medications Medications Current Medications Ticagrelor (Brilinta) 90 mg BID PO Last administered on 02/10/17 08:46; Admin Dose 90 MG; Start 02/05/17 at 22:00 Alendronate Sodium (Fosamax) 70 mg We@0705 PO ; Start 02/11/17 at 07:05 Atorvastatin Calcium (Lipitor) 40 mg DAILY@21 PO Last administered on 20:14; Admin Dose 40 MG; Start 02/05/17 at 22:00 Aspirin (Halfprin) 81 mg DAILY PO Last administered on 02/10/17 08:33; Admin Dose 81 MG; Start 02/06/17 at 09:00 Metoprolol Tartrate (Lopressor) 12.5 mg BID PO Last administered on 02/09/17 20:14; Admin Dose 12.5 MG; Start 02/05/17 at 22:00 Levothyroxine Sodium (Synthroid) 112 mcg DAILY@06 PO Last administered on 06:27; Admin Dose 112 MCG; Start 02/06/17 at 06:00 Miscellaneous Information 1 ea NOTE XX ; Start 02/05/17 at 22:00 Glucose (Glutose) 15 gm Q15M PRN PO DECREASED GLUCOSE; Start 02/05/17 at 22:00 Glucose (Glutose) 22.5 gm Q15M PRN PO DECREASED GLUCOSE; Start 02/05/17 at 22: 00 Dextrose (D50w Syringe) 25 ml Q15M PRN IV DECREASED GLUCOSE; Start 02/05/17 at 22:00 Dextrose (D50w Syringe) 50 ml Q15M PRN IV DECREASED GLUCOSE; Start 02/05/17 at 22:00 Glucagon (Glucagen) 1 mg Q15M PRN IM DECREASED GLUCOSE; Start 02/05/17 at 22:00 Glucose (Glutose) 15 gm Q15M PRN BUCCAL DECREASED GLUCOSE Last administered on 02/08/17 22:34; Admin Dose 15 GM; Start 02/05/17 at 22:00 Docusate Sodium (Colace) 100 mg BID PO Last administered on 02/10/17 08:33; Admin Dose 100 MG; Start 02/06/17 at 09:00 Bisacodyl (Dulcolax Supp) 10 mg DAILY PRN [place] CONSTIPATION; Start 02/06/17 at 05 :00 Magnesium Hydroxide (Milk Of Mag) 30 ml BID PRN PO CONSTIPATION; Start at 05:00 Lactulose (Enulose) 20 gm DAILY PRN PO CONSTIPATION Last administered on 09:06; Admin Dose 20 GM; Start 02/06/17 at 05:00 Duloxetine HCl (Cymbalta) 30 mg DAILY PO Last administered on 02/10/17 08:33; Admin Dose 30 MG; Start 02/09/17 at 09:00 Gabapentin (Neurontin) 400 mg TID PO Last administered on 02/10/17 08:32; Admin Dose 400 MG; Start 02/08/17 at 13:00 Insulin Human NPH (Humulin N) 5 unit DAILY@20 SC Last administered on 20:23; Admin Dose 5 UNIT; Start 02/08/17 at 20:00 Furosemide (Lasix) 20 mg DAILY PO ; Start 02/10/17 at 09:00 Insulin Glargine (Lantus) 13 unit DAILY@08 SC Last administered on 02/10/17 07 :58; Admin Dose 13 UNIT; Start 02/10/17 at 08:00 Tramadol HCl (Ultram) 50 mg Q6H PRN PO sevre pain Last administered on 08:31; Admin Dose 50 MG; Start 02/09/17 at 14:00 Guaifenesin/ Dextromethorphan (Robitussin Dm Liquid Cup) 10 ml Q4H PRN PO cough ; Start 02/09/17 at 14:30 ARTIE MARADIAGA MD Feb 10, 2017 09:31
[2017-02-10] MEDS ORDERED: HYDROmorphONE 1 MG/ML SYG IV STA (11:45)
--- NOTE | 2017-02-10 12:04 | CONS ---
Date/Time of Note Date/Time of Note DATE: 02/10/17 TIME: 12:03 Consult Date/Type/Reason Admit Date/Time Feb 05, 2017 at 18:59 Type of Consultation: Endocrinology Ordering Provider: JORGE MESSINA MD Subjective Feels tired today Objective sba ambulation Vital Signs Date Time Temp Pulse Resp B/P Pulse Ox O2 Delivery O2 Flow Rate FiO2 02/10/17 08:00 98.4 85 18 100/58 97 02/10/17 04:59 21 Intake and Output 02/09/17 02/09/17 02/10/17 15:00 23:00 07:00 Intake Total 1200 ml 120 ml Balance 1200 ml 120 ml Results/Medications Result Diagram: 02/06/17 0602 02/08/17 2302 Results 24 hrs Laboratory Tests Test 02/09/17 12:14 02/09/17 17:31 02/09/17 20:11 02/10/17 07:47 Bedside Glucose 377 H 297 H 225 H 155 Test 02/10/17 11:17 Bedside Glucose 342 H Medications Current Medications Ticagrelor (Brilinta) 90 mg BID PO Last administered on 02/10/17 08:46; Admin Dose 90 MG; Start 02/05/17 at 22:00 Alendronate Sodium (Fosamax) 70 mg We@0705 PO ; Start 02/11/17 at 07:05 Atorvastatin Calcium (Lipitor) 40 mg DAILY@21 PO Last administered on 20:14; Admin Dose 40 MG; Start 02/05/17 at 22:00 Aspirin (Halfprin) 81 mg DAILY PO Last administered on 02/10/17 08:33; Admin Dose 81 MG; Start 02/06/17 at 09:00 Metoprolol Tartrate (Lopressor) 12.5 mg BID PO Last administered on 02/10/17 09:00; Admin Dose 12.5 MG; Start 02/05/17 at 22:00 Levothyroxine Sodium (Synthroid) 112 mcg DAILY@06 PO Last administered on 06:27; Admin Dose 112 MCG; Start 02/06/17 at 06:00 Miscellaneous Information 1 ea NOTE XX ; Start 02/05/17 at 22:00 Glucose (Glutose) 15 gm Q15M PRN PO DECREASED GLUCOSE; Start 02/05/17 at 22:00 Glucose (Glutose) 22.5 gm Q15M PRN PO DECREASED GLUCOSE; Start 02/05/17 at 22: 00 Dextrose (D50w Syringe) 25 ml Q15M PRN IV DECREASED GLUCOSE; Start 02/05/17 at 22:00 Dextrose (D50w Syringe) 50 ml Q15M PRN IV DECREASED GLUCOSE; Start 02/05/17 at 22:00 Glucagon (Glucagen) 1 mg Q15M PRN IM DECREASED GLUCOSE; Start 02/05/17 at 22:00 Glucose (Glutose) 15 gm Q15M PRN BUCCAL DECREASED GLUCOSE Last administered on 02/08/17 22:34; Admin Dose 15 GM; Start 02/05/17 at 22:00 Docusate Sodium (Colace) 100 mg BID PO Last administered on 02/10/17 08:33; Admin Dose 100 MG; Start 02/06/17 at 09:00 Bisacodyl (Dulcolax Supp) 10 mg DAILY PRN [place] CONSTIPATION; Start 02/06/17 at 05 :00 Magnesium Hydroxide (Milk Of Mag) 30 ml BID PRN PO CONSTIPATION; Start at 05:00 Lactulose (Enulose) 20 gm DAILY PRN PO CONSTIPATION Last administered on 09:06; Admin Dose 20 GM; Start 02/06/17 at 05:00 Duloxetine HCl (Cymbalta) 30 mg DAILY PO Last administered on 02/10/17 08:33; Admin Dose 30 MG; Start 02/09/17 at 09:00 Gabapentin (Neurontin) 400 mg TID PO Last administered on 02/10/17 08:32; Admin Dose 400 MG; Start 02/08/17 at 13:00 Insulin Human NPH (Humulin N) 5 unit DAILY@20 SC Last administered on 20:23; Admin Dose 5 UNIT; Start 02/08/17 at 20:00 Furosemide (Lasix) 20 mg DAILY PO Last administered on 02/10/17 09:00; Admin Dose 20 MG; Start 02/10/17 at 09:00 Insulin Glargine (Lantus) 13 unit DAILY@08 SC Last administered on 02/10/17 07 :58; Admin Dose 13 UNIT; Start 02/10/17 at 08:00 Tramadol HCl (Ultram) 50 mg Q6H PRN PO sevre pain Last administered on 08:31; Admin Dose 50 MG; Start 02/09/17 at 14:00 Guaifenesin/ Dextromethorphan (Robitussin Dm Liquid Cup) 10 ml Q4H PRN PO cough ; Start 02/09/17 at 14:30 Assessment/Plan Additional Assessment/Plan Rehab- Improving toxic metabolic encephalopathy; debility Continue rehab program Coronary artery disease and recent [id number] ID,status post CABG. Pleural effusion status post thoracentesis. COPD. Improved orthostatic hypotension. Improving dysphagia. Neck mass. Diabetes mellitus type 2- elevated bs this AM, adjust meds. Hypothyroidism. Anemia. JORGE MESSINA MD Feb 10, 2017 12:04
[2017-02-10 13:04] LABS: ABNORMAL IP MESSAGE 1; BASOPHIL # 0.2 10^3/ul (0.0-0.1); BASOPHILS % 1.7 % (0.0-2.0); EOSINOPHILS # 2.5 10^3/ul (0.0-0.5); EOSINOPHILS % 22.2 % (0.0-7.0); HEMATOCRIT 35.7 % (37.0-47.0); HEMOGLOBIN 11.8 g/dl (12.0-16.0); LYMPHOCYTES # 1.4 10^3/ul (0.8-2.9); LYMPHOCYTES % 12.7 % (15.0-51.0); MEAN CORPUSCULAR HEMOGLOBIN 30.4 pg (29.0-33.0); MEAN CORPUSCULAR HGB CONC 33.1 g/dl (32.0-37.0); MEAN PLATELET VOLUME 9.1 fl (7.4-10.4); MONOCYTE # 0.8 10^3/ul (0.3-0.9); MONOCYTES % 6.8 % (0.0-11.0); NEUTROPHILS % 56.2 % (39.0-77.0); PLATELET COUNT 504 10^3/UL (140-415); RED BLOOD COUNT 3.88 10^6/ul (4.20-5.40); RED CELL DISTRIBUTION WIDTH 15.1 % (11.5-14.5); WHITE BLOOD COUNT 11.2 10^3/ul (4.8-10.8)
[2017-02-10 13:31] LABS: POSITIVE DIFF @See below
--- NOTE | 2017-02-10 13:31 | CONS ---
Date/Time of Note Date/Time of Note DATE: 02/10/17 TIME: 13:23 Assessment/Plan Assessment/Plan Chief Complaint/Hosp Course 1. Multivessel CAD. -Status post CABG 2. DEE to LAD, SVG-OM 01/27/17. -Continue aspirin, Brilinta and statin. 2. Systolic congestive heart failure with pleural effusion. Currently stable. -Continue diuretics beta-blockers as tolerated. Of note, patient also had hx of thoracentesis. 3. Type 1 DM-with hypoglycemic episodes -Continue Accu-Cheks and adjusted insulin regimen recommended by regional sales director. 4. L sided subglottic lesion -For outpatient ENT follow-up 5. Hypothyroidism. -Continue Synthroid. 6. History of atrial fibrillation. Now in sinus rhythm. 7. Ischemic cardiomyopathy -Continue current medical management. 8. Debility. -Continue with rehabilitation. 9. Dysphagia, now tolerating mechanical soft diet. 10.Left pleural effusion. No significant changes from prior study. Patient with normal respiratory effort. Plan: Encourage incentive spirometry. Continue current management. Case discussed with . Problems: Consultation Date/Type/Reason Admit Date/Time Feb 05, 2017 at 18:59 Type of Consultation: Endocrinology Referring Provider: JORGE MESSINA MD 24 HR Interval Summary Free Text/Dictation Patient feeling weak and sleepy. received Dialudid for sternal suture removal??? Denies chest pain or palpitation. Exam/Review of Systems Vital Signs Vitals Vital Signs Date Time Temp Pulse Resp B/P Pulse Ox O2 Delivery O2 Flow Rate FiO2 02/10/17 08:00 98.4 85 18 100/58 97 02/10/17 04:59 21 Intake and Output 02/09/17 02/09/17 02/10/17 15:00 23:00 07:00 Intake Total 1200 ml 120 ml Balance 1200 ml 120 ml Exam General: female, who also looks older than what she really is, not in any acute distress . HEENT: Normocephalic, Atraumatic, No laceration or hematoma; Eyes: PEERL, Conjunctiva clear, Anicteric sclera Neck: Supple without any lymphadenopathy, nontender, no JVD, no carotid bruits, trachea midline, no thyromegaly Cardiac: S1, S2 auscultated, regular rhythm and rate, no mumurs or gallop Pulmonary: Normal respiratory effort. Chest clear to auscultation bilaterally, no adventitious breath sounds GI: Abdomen normal to inspection. Soft, non tender, non- distended, no masses, no rebound tenderness or guarding. Bowel sounds active on all four quadrants Genitourinary: Deferred Extremities: No cyanosis, clubbing, or edema. Pulses [2+] bilaterally. Full ROM on all four extremities. No focal weakness appreciated. Neurologic: Alert to person, place, time, and situation. Affect appropriate, intact sensation. Skin: Midsternal incision site intact. Clean,dry, and intact. No ecchymosis, no rashes, or lesions Results Result Diagram: 02/06/17 0602 02/08/17 2302 Results 24 hrs Laboratory Tests Test 02/09/17 17:31 02/09/17 20:11 02/10/17 07:47 02/10/17 11:17 Bedside Glucose 297 H 225 H 155 342 H Test 02/10/17 12:13 02/10/17 12:21 Bedside Glucose 310 H White Blood Count Pending Red Blood Count Pending Hemoglobin Pending Hematocrit Pending Mean Corpuscular Volume Pending Mean Corpuscular Hemoglobin Pending Mean Corpuscular Hemoglobin Concent Pending Red Cell Distribution Width Pending Platelet Count Pending Mean Platelet Volume Pending Medications Medications Current Medications Ticagrelor (Brilinta) 90 mg BID PO Last administered on 02/10/17 08:46; Admin Dose 90 MG; Start 02/05/17 at 22:00 Alendronate Sodium (Fosamax) 70 mg We@0705 PO ; Start 02/11/17 at 07:05 Atorvastatin Calcium (Lipitor) 40 mg DAILY@21 PO Last administered on 20:14; Admin Dose 40 MG; Start 02/05/17 at 22:00 Aspirin (Halfprin) 81 mg DAILY PO Last administered on 02/10/17 08:33; Admin Dose 81 MG; Start 02/06/17 at 09:00 Metoprolol Tartrate (Lopressor) 12.5 mg BID PO Last administered on 02/10/17 09:00; Admin Dose 12.5 MG; Start 02/05/17 at 22:00 Levothyroxine Sodium (Synthroid) 112 mcg DAILY@06 PO Last administered on 06:27; Admin Dose 112 MCG; Start 02/06/17 at 06:00 Miscellaneous Information 1 ea NOTE XX ; Start 02/05/17 at 22:00 Glucose (Glutose) 15 gm Q15M PRN PO DECREASED GLUCOSE; Start 02/05/17 at 22:00 Glucose (Glutose) 22.5 gm Q15M PRN PO DECREASED GLUCOSE; Start 02/05/17 at 22: 00 Dextrose (D50w Syringe) 25 ml Q15M PRN IV DECREASED GLUCOSE; Start 02/05/17 at 22:00 Dextrose (D50w Syringe) 50 ml Q15M PRN IV DECREASED GLUCOSE; Start 02/05/17 at 22:00 Glucagon (Glucagen) 1 mg Q15M PRN IM DECREASED GLUCOSE; Start 02/05/17 at 22:00 Glucose (Glutose) 15 gm Q15M PRN BUCCAL DECREASED GLUCOSE Last administered on 02/08/17 22:34; Admin Dose 15 GM; Start 02/05/17 at 22:00 Docusate Sodium (Colace) 100 mg BID PO Last administered on 02/10/17 08:33; Admin Dose 100 MG; Start 02/06/17 at 09:00 Bisacodyl (Dulcolax Supp) 10 mg DAILY PRN [place] CONSTIPATION; Start 02/06/17 at 05 :00 Magnesium Hydroxide (Milk Of Mag) 30 ml BID PRN PO CONSTIPATION; Start at 05:00 Lactulose (Enulose) 20 gm DAILY PRN PO CONSTIPATION Last administered on 09:06; Admin Dose 20 GM; Start 02/06/17 at 05:00 Duloxetine HCl (Cymbalta) 30 mg DAILY PO Last administered on 02/10/17 08:33; Admin Dose 30 MG; Start 02/09/17 at 09:00 Gabapentin (Neurontin) 400 mg TID PO Last administered on 02/10/17 13:05; Admin Dose 400 MG; Start 02/08/17 at 13:00 Insulin Human NPH (Humulin N) 5 unit DAILY@20 SC Last administered on 20:23; Admin Dose 5 UNIT; Start 02/08/17 at 20:00 Furosemide (Lasix) 20 mg DAILY PO Last administered on 02/10/17 09:00; Admin Dose 20 MG; Start 02/10/17 at 09:00 Insulin Glargine (Lantus) 13 unit DAILY@08 SC Last administered on 02/10/17 07 :58; Admin Dose 13 UNIT; Start 02/10/17 at 08:00 Tramadol HCl (Ultram) 50 mg Q6H PRN PO sevre pain Last administered on 08:31; Admin Dose 50 MG; Start 02/09/17 at 14:00 Guaifenesin/ Dextromethorphan (Robitussin Dm Liquid Cup) 10 ml Q4H PRN PO cough ; Start 02/09/17 at 14:30 TAD HIGGINS NP Feb 10, 2017 13:31
[2017-02-10 13:40] LABS: CALCIUM 8.7 mg/dl (8.4-10.2); CREATININE 0.5 mg/dl (0.44-1.00); POTASSIUM 4.7 mmol/L (3.5-5.1)
--- NOTE | 2017-02-10 17:30 | CONS ---
Date/Time of Note Date/Time of Note DATE: 02/10/17 TIME: 17:27 Assessment/Plan Assessment/Plan Problems: (1) Type 1 diabetes mellitus with diabetic polyneuropathy Status: Chronic Comment: Hyperglycemic today. Possibly due to dose reductions in both lantus and novolog this am. Will increase novolog back up to 9 qam and lantus back up to 14 instead of 13 or 15 qam. Reevalute tomorrow. Also increase Novolog w/ lunch back up from 3 to 4 units. Consultation Date/Type/Reason Admit Date/Time Feb 05, 2017 at 18:59 Initial Consult Date 01/14/2017 Type of Consultation: Endocrinology Reason for Consultation T1DM OOC Referring Provider: JORGE MESSINA MD 24 HR Interval Summary Constitutional: other (generally fatigued today) Detailed Summary Respiratory: no complaints Cardiovascular: no complaints Gastrointestinal: no complaints Genitourinary: no complaints Musculoskeletal: no complaints Neurologic: no complaints Exam/Review of Systems Vital Signs Vitals VS - Last 72 Hours, by Label Date Time Temp Pulse Resp B/P Pulse Ox O2 Delivery O2 Flow Rate FiO2 02/10/17 08:00 98.4 85 18 100/58 97 02/10/17 04:59 21 02/10/17 02:00 98.6 84 18 103/61 96 02/09/17 20:00 98.6 91 18 106/54 93 02/09/17 14:00 98.2 98 20 109/73 94 02/09/17 07:30 98.4 86 20 100/49 95 02/09/17 02:00 98.0 74 18 178/81 96 02/08/17 20:00 98.6 93 18 102/53 94 02/08/17 18:14 92 21 02/08/17 13:25 93 103/54 02/08/17 08:35 86 97/43 02/08/17 03:01 98.4 78 18 117/57 94 02/07/17 19:35 98.8 103 20 106/51 94 Vital Signs Date Time Temp Pulse Resp B/P Pulse Ox O2 Delivery O2 Flow Rate FiO2 02/10/17 08:00 98.4 85 18 100/58 97 02/10/17 04:59 21 Intake and Output 02/09/17 02/09/17 02/10/17 15:00 23:00 07:00 Intake Total 1200 ml 120 ml Balance 1200 ml 120 ml Exam Constitutional: alert, oriented, well developed Psych: nl mood/affect, no complaints Respiratory: clear to auscultation, normal air movement Cardiovascular: nl pulses, regular rate and rhythm, No edema, No murmurs/extra sounds, No rub Gastrointestinal: bowel sounds, nl liver, spleen, non-tender, soft, No mass, No rebound or guarding Musculoskeletal: nl extremities to inspection Extremities: No clubbing, No cyanosis, No edema 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: YARD STOCKER II-XII intact, nl mental status, nl speech, nl strength Additional Comments Bedside Glucose - 72 Hours Test 02/07/17 21:00 02/08/17 07:49 02/08/17 11:49 02/08/17 17:18 Bedside Glucose 304mg/dL (70-220) H 120mg/dL (70-220) 152mg/dL (70-220) 110mg/dL (70-220) Test 02/08/17 20:14 02/08/17 22:11 02/08/17 22:29 02/08/17 22:45 Bedside Glucose 111mg/dL (70-220) 43mg/dL (70-220) *L 48mg/dL (70-220) *L 65mg/dL (70-220) L Test 02/08/17 23:00 02/09/17 02:27 02/09/17 08:02 02/09/17 08:13 Bedside Glucose 80mg/dL (70-220) 79mg/dL (70-220) 58mg/dL (70-220) L 54mg/dL (70-220) L Test 02/09/17 08:42 02/09/17 12:14 02/09/17 17:31 02/09/17 20:11 Bedside Glucose 80mg/dL (70-220) 377mg/dL (70-220) H 297mg/dL (70-220) H 225mg/dL (70-220) H Test 02/10/17 07:47 02/10/17 11:17 02/10/17 12:13 02/10/17 17:22 Bedside Glucose 155mg/dL (70-220) 342mg/dL (70-220) H 310mg/dL (70-220) H 271mg/dL (70-220) H Results Result Diagram: 02/10/17 1221 02/10/17 1221 Results 24 hrs Laboratory Tests Test 02/09/17 17:31 02/09/17 20:11 02/10/17 07:47 02/10/17 11:17 Bedside Glucose 297 H 225 H 155 342 H Test 02/10/17 12:13 02/10/17 12:21 02/10/17 17:22 Bedside Glucose 310 H 271 H White Blood Count 11.2 #H Red Blood Count 3.88 L Hemoglobin 11.8 L Hematocrit 35.7 L Mean Corpuscular Volume 92.0 Mean Corpuscular Hemoglobin 30.4 Mean Corpuscular Hemoglobin Concent 33.1 Red Cell Distribution Width 15.1 H Platelet Count 504 #H Mean Platelet Volume 9.1 Neutrophils % 56.2 Lymphocytes % 12.7 L Monocytes % 6.8 Eosinophils % 22.2 H Basophils % 1.7 Nucleated Red Blood Cells % 0.0 Neutrophils # (Manual) 6.3 Lymphocytes # 1.4 Monocytes # 0.8 Eosinophils # 2.5 H Basophils # 0.2 H Nucleated Red Blood Cells # 0.0 Sodium Level 135 Potassium Level 4.7 Chloride Level 96 L Carbon Dioxide Level 28 Anion Gap 16 Blood Urea Nitrogen 16 Creatinine 0.50 Glucose Level 325 #H Calcium Level 8.7 Medications Medications Current Medications Ticagrelor (Brilinta) 90 mg BID PO Last administered on 02/10/17 08:46; Admin Dose 90 MG; Start 02/05/17 at 22:00 Alendronate Sodium (Fosamax) 70 mg We@0705 PO ; Start 02/11/17 at 07:05 Atorvastatin Calcium (Lipitor) 40 mg DAILY@21 PO Last administered on 20:14; Admin Dose 40 MG; Start 02/05/17 at 22:00 Aspirin (Halfprin) 81 mg DAILY PO Last administered on 02/10/17 08:33; Admin Dose 81 MG; Start 02/06/17 at 09:00 Metoprolol Tartrate (Lopressor) 12.5 mg BID PO Last administered on 02/10/17 09:00; Admin Dose 12.5 MG; Start 02/05/17 at 22:00 Levothyroxine Sodium (Synthroid) 112 mcg DAILY@06 PO Last administered on 06:27; Admin Dose 112 MCG; Start 02/06/17 at 06:00 Miscellaneous Information 1 ea NOTE XX ; Start 02/05/17 at 22:00 Glucose (Glutose) 15 gm Q15M PRN PO DECREASED GLUCOSE; Start 02/05/17 at 22:00 Glucose (Glutose) 22.5 gm Q15M PRN PO DECREASED GLUCOSE; Start 02/05/17 at 22: 00 Dextrose (D50w Syringe) 25 ml Q15M PRN IV DECREASED GLUCOSE; Start 02/05/17 at 22:00 Dextrose (D50w Syringe) 50 ml Q15M PRN IV DECREASED GLUCOSE; Start 02/05/17 at 22:00 Glucagon (Glucagen) 1 mg Q15M PRN IM DECREASED GLUCOSE; Start 02/05/17 at 22:00 Glucose (Glutose) 15 gm Q15M PRN BUCCAL DECREASED GLUCOSE Last administered on 02/08/17 22:34; Admin Dose 15 GM; Start 02/05/17 at 22:00 Docusate Sodium (Colace) 100 mg BID PO Last administered on 02/10/17 08:33; Admin Dose 100 MG; Start 02/06/17 at 09:00 Bisacodyl (Dulcolax Supp) 10 mg DAILY PRN [place] CONSTIPATION; Start 02/06/17 at 05 :00 Magnesium Hydroxide (Milk Of Mag) 30 ml BID PRN PO CONSTIPATION; Start at 05:00 Lactulose (Enulose) 20 gm DAILY PRN PO CONSTIPATION Last administered on 09:06; Admin Dose 20 GM; Start 02/06/17 at 05:00 Duloxetine HCl (Cymbalta) 30 mg DAILY PO Last administered on 02/10/17 08:33; Admin Dose 30 MG; Start 02/09/17 at 09:00 Gabapentin (Neurontin) 400 mg TID PO Last administered on 02/10/17 13:05; Admin Dose 400 MG; Start 02/08/17 at 13:00 Insulin Human NPH (Humulin N) 5 unit DAILY@20 SC Last administered on 20:23; Admin Dose 5 UNIT; Start 02/08/17 at 20:00 Furosemide (Lasix) 20 mg DAILY PO Last administered on 02/10/17 09:00; Admin Dose 20 MG; Start 02/10/17 at 09:00 Tramadol HCl (Ultram) 50 mg Q6H PRN PO sevre pain Last administered on t 08:31; Admin Dose 50 MG; Start 02/09/17 at 14:00 Guaifenesin/ Dextromethorphan (Robitussin Dm Liquid Cup) 10 ml Q4H PRN PO cough ; Start 02/09/17 at 14:30 Insulin Glargine (Lantus) 14 unit DAILY@08 SC ; Start 02/11/17 at 08:00 DARYL MYERS MD Feb 10, 2017 17:30
[2017-02-10 20:00] VITALS: BP 103/55; RESP 18
[2017-02-10] MEDS: ACCU-CHEK XX SCH (20:00)
[2017-02-10] MEDS: ATORVASTATIN 40 MG TAB PO SCH (20:56)
[2017-02-10] MEDS: NPH, HUMAN INSULIN ISOPHANE 3ML VIAL SC SCH (21:00)
[2017-02-11] MEDS: ACCU-CHEK XX SCH ×5 (02:00→20:33)
[2017-02-11 02:02] VITALS: BP 108/56; RESP 18
[2017-02-11] MEDS: LEVOTHYROXINE 112 MCG TAB PO SCH (06:56)
[2017-02-11] MEDS ORDERED: ALENDRONATE 70 MG TAB PO SCH (07:05)
[2017-02-11] MEDS: INSULIN ASPART [NOVOLOG] 3 ML PEN SC SCH ×6 (07:35→21:00)
[2017-02-11 07:54] VITALS: BP 93/54; RESP 18
[2017-02-11] MEDS: INSULIN GLARGINE [LANtus] 3 ML PEN SC SCH (08:10)
[2017-02-11] MEDS: DOCUSATE SODIUM 100 MG CAP PO SCH ×2 (08:12→21:00)
[2017-02-11] MEDS: ASPIRIN (EC) 81 MG TAB PO SCH (08:12)
[2017-02-11] MEDS: TICAGRELOR 90 MG TABLET PO SCH ×2 (08:12→21:03)
[2017-02-11] MEDS: DULOXETINE 30 MG CAP DR PO SCH (08:12)
[2017-02-11] MEDS: GABAPENTIN 400 MG CAP PO SCH ×3 (08:13→21:03)
[2017-02-11] MEDS: FUROSEMIDE 20 MG TAB PO SCH (08:24)
[2017-02-11] MEDS: METOPROLOL 25 MG TAB PO SCH ×2 (08:25→21:00)
--- NOTE | 2017-02-11 11:42 | CONS ---
Date/Time of Note Date/Time of Note DATE: 02/11/17 TIME: 11:40 Consult Date/Type/Reason Admit Date/Time Feb 05, 2017 at 18:59 Type of Consultation: Endocrinology Ordering Provider: JORGE MESSINA MD Subjective Patient reports feeling better than yesterday. Objective pt slightly hypotensive with OT this AM Vital Signs Date Time Temp Pulse Resp B/P Pulse Ox O2 Delivery O2 Flow Rate FiO2 02/11/17 07:54 97.8 75 18 93/54 96 02/10/17 04:59 21 Intake and Output 02/10/17 02/10/17 02/11/17 15:00 23:00 07:00 Intake Total 800 ml 400 ml 220 ml Balance 800 ml 400 ml 220 ml Results/Medications Result Diagram: 02/10/17 1221 02/10/17 1221 Results 24 hrs Laboratory Tests Test 02/10/17 12:13 02/10/17 12:21 02/10/17 17:22 02/10/17 20:54 Bedside Glucose 310 H 271 H 208 White Blood Count 11.2 #H Red Blood Count 3.88 L Hemoglobin 11.8 L Hematocrit 35.7 L Mean Corpuscular Volume 92.0 Mean Corpuscular Hemoglobin 30.4 Mean Corpuscular Hemoglobin Concent 33.1 Red Cell Distribution Width 15.1 H Platelet Count 504 #H Mean Platelet Volume 9.1 Neutrophils % 56.2 Lymphocytes % 12.7 L Monocytes % 6.8 Eosinophils % 22.2 H Basophils % 1.7 Nucleated Red Blood Cells % 0.0 Neutrophils # (Manual) 6.3 Lymphocytes # 1.4 Monocytes # 0.8 Eosinophils # 2.5 H Basophils # 0.2 H Nucleated Red Blood Cells # 0.0 Sodium Level 135 Potassium Level 4.7 Chloride Level 96 L Carbon Dioxide Level 28 Anion Gap 16 Blood Urea Nitrogen 16 Creatinine 0.50 Glucose Level 325 #H Calcium Level 8.7 Test 02/11/17 02:28 02/11/17 07:48 Bedside Glucose 137 121 Medications Current Medications Ticagrelor (Brilinta) 90 mg BID PO Last administered on 02/11/17 08:12; Admin Dose 90 MG; Start 02/05/17 at 22:00 Alendronate Sodium (Fosamax) 70 mg We@0705 PO Last administered on 02/11/17 06 :57; Admin Dose 70 MG; Start 02/11/17 at 07:05 Atorvastatin Calcium (Lipitor) 40 mg DAILY@21 PO Last administered on 20:56; Admin Dose 40 MG; Start 02/05/17 at 22:00 Aspirin (Halfprin) 81 mg DAILY PO Last administered on 02/11/17 08:12; Admin Dose 81 MG; Start 02/06/17 at 09:00 Metoprolol Tartrate (Lopressor) 12.5 mg BID PO Last administered on 02/10/17 20:57; Admin Dose 12.5 MG; Start 02/05/17 at 22:00 Levothyroxine Sodium (Synthroid) 112 mcg DAILY@06 PO Last administered on 06:56; Admin Dose 112 MCG; Start 02/06/17 at 06:00 Miscellaneous Information 1 ea NOTE XX ; Start 02/05/17 at 22:00 Glucose (Glutose) 15 gm Q15M PRN PO DECREASED GLUCOSE; Start 02/05/17 at 22:00 Glucose (Glutose) 22.5 gm Q15M PRN PO DECREASED GLUCOSE; Start 02/05/17 at 22: 00 Dextrose (D50w Syringe) 25 ml Q15M PRN IV DECREASED GLUCOSE; Start 02/05/17 at 22:00 Dextrose (D50w Syringe) 50 ml Q15M PRN IV DECREASED GLUCOSE; Start 02/05/17 at 22:00 Glucagon (Glucagen) 1 mg Q15M PRN IM DECREASED GLUCOSE; Start 02/05/17 at 22:00 Glucose (Glutose) 15 gm Q15M PRN BUCCAL DECREASED GLUCOSE Last administered on 02/08/17 22:34; Admin Dose 15 GM; Start 02/05/17 at 22:00 Docusate Sodium (Colace) 100 mg BID PO Last administered on 02/11/17 08:12; Admin Dose 100 MG; Start 02/06/17 at 09:00 Bisacodyl (Dulcolax Supp) 10 mg DAILY PRN [place] CONSTIPATION; Start 02/06/17 at 05 :00 Magnesium Hydroxide (Milk Of Mag) 30 ml BID PRN PO CONSTIPATION; Start at 05:00 Lactulose (Enulose) 20 gm DAILY PRN PO CONSTIPATION Last administered on 09:06; Admin Dose 20 GM; Start 02/06/17 at 05:00 Duloxetine HCl (Cymbalta) 30 mg DAILY PO Last administered on 02/11/17 08:12; Admin Dose 30 MG; Start 02/09/17 at 09:00 Gabapentin (Neurontin) 400 mg TID PO Last administered on 02/11/17 08:13; Admin Dose 400 MG; Start 02/08/17 at 13:00 Insulin Human NPH (Humulin N) 5 unit DAILY@20 SC Last administered on 21:00; Admin Dose 5 UNIT; Start 02/08/17 at 20:00 Furosemide (Lasix) 20 mg DAILY PO Last administered on 02/10/17 09:00; Admin Dose 20 MG; Start 02/10/17 at 09:00 Tramadol HCl (Ultram) 50 mg Q6H PRN PO sevre pain Last administered on 18:11; Admin Dose 50 MG; Start 02/09/17 at 14:00 Guaifenesin/ Dextromethorphan (Robitussin Dm Liquid Cup) 10 ml Q4H PRN PO cough Last administered on 02/10/17 18:11; Admin Dose 10 ML; Start 02/09/17 at 14:30 Insulin Glargine (Lantus) 14 unit DAILY@08 SC Last administered on 02/11/17 08 :10; Admin Dose 14 UNIT; Start 02/11/17 at 08:00 Diagnostic Test (Pha) (Accu-Chek) 1 ea 02 XX Last administered on 02/11/17 02: 00; Admin Dose 1 EA; Start 02/11/17 at 02:00 Diagnostic Test (Pha) (Accu-Chek) 1 ea 02 XX Last administered on 02/11/17 02: 00; Admin Dose 1 EA; Start 02/11/17 at 02:00 Assessment/Plan Additional Assessment/Plan Rehab- Improving toxic metabolic encephalopathy; debility Continue rehab program as tolerated. Hypotension- meds per adjust cardiology Coronary artery disease and recent [id number] OR,status post CABG. Pleural effusion status post thoracentesis. COPD. Improved orthostatic hypotension. Improving dysphagia. Neck mass. Diabetes mellitus type 2- elevated bs this AM, adjust meds. Hypothyroidism. JORGE MESSINA MD Feb 11, 2017 11:42
[2017-02-11] MEDS ORDERED: INSULIN ASPART [NOVOLOG] 3 ML PEN SC SCH (12:00)
--- NOTE | 2017-02-11 13:30 | CONS ---
Date/Time of Note Date/Time of Note DATE: 02/11/17 TIME: 13:27 Assessment/Plan Assessment/Plan Problems: (1) Type 1 diabetes mellitus with diabetic polyneuropathy Status: Chronic Comment: FS markedly improved today. Cont. current insulin doses now and through discharge unless glucose levels significantly change between now and then. Consultation Date/Type/Reason Admit Date/Time Feb 05, 2017 at 18:59 Initial Consult Date 01/14/2017 Type of Consultation: Endocrinology Reason for Consultation T1DM OOC Referring Provider: JORGE MESSINA MD 24 HR Interval Summary Constitutional: other (lightheaded, better than yesterday but not optimal) Detailed Summary Respiratory: no complaints Cardiovascular: no complaints Gastrointestinal: no complaints Genitourinary: no complaints Musculoskeletal: no complaints Neurologic: no complaints Exam/Review of Systems Vital Signs Vitals VS - Last 72 Hours, by Label Date Time Temp Pulse Resp B/P Pulse Ox O2 Delivery O2 Flow Rate FiO2 02/11/17 07:54 97.8 75 18 93/54 96 02/11/17 02:02 97.8 74 18 108/56 99 02/10/17 20:00 98.3 87 18 103/55 94 02/10/17 08:00 98.4 85 18 100/58 97 02/10/17 04:59 21 02/10/17 02:00 98.6 84 18 103/61 96 02/09/17 20:00 98.6 91 18 106/54 93 02/09/17 14:00 98.2 98 20 109/73 94 02/09/17 07:30 98.4 86 20 100/49 95 02/09/17 02:00 98.0 74 18 178/81 96 02/08/17 20:00 98.6 93 18 102/53 94 02/08/17 18:14 92 21 Vital Signs Date Time Temp Pulse Resp B/P Pulse Ox O2 Delivery O2 Flow Rate FiO2 02/11/17 07:54 97.8 75 18 93/54 96 02/10/17 04:59 21 Intake and Output 02/10/17 02/10/17 02/11/17 15:00 23:00 07:00 Intake Total 800 ml 400 ml 220 ml Balance 800 ml 400 ml 220 ml Exam Constitutional: alert, oriented, well developed Psych: nl mood/affect, no complaints Respiratory: clear to auscultation, normal air movement Cardiovascular: nl pulses, regular rate and rhythm, No edema, No murmurs/extra sounds, No rub Gastrointestinal: bowel sounds, nl liver, spleen, non-tender, soft, No mass, No rebound or guarding Musculoskeletal: nl extremities to inspection Extremities: normal pulses, No clubbing, No cyanosis, No edema 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: [employer] II-XII intact, nl mental status, nl speech, nl strength Additional Comments Bedside Glucose - 72 Hours Test 02/08/17 17:18 02/08/17 20:14 02/08/17 22:11 02/08/17 22:29 Bedside Glucose 110mg/dL (70-220) 111mg/dL (70-220) 43mg/dL (70-220) *L 48mg/dL (70-220) *L Test 02/08/17 22:45 02/08/17 23:00 02/09/17 02:27 02/09/17 08:02 Bedside Glucose 65mg/dL (70-220) L 80mg/dL (70-220) 79mg/dL (70-220) 58mg/dL (70-220) L Test 02/09/17 08:13 02/09/17 08:42 02/09/17 12:14 02/09/17 17:31 Bedside Glucose 54mg/dL (70-220) L 80mg/dL (70-220) 377mg/dL (70-220) H 297mg/dL (70-220) H Test 02/09/17 20:11 02/10/17 07:47 02/10/17 11:17 02/10/17 12:13 Bedside Glucose 225mg/dL (70-220) H 155mg/dL (70-220) 342mg/dL (70-220) H 310mg/dL (70-220) H Test 02/10/17 17:22 02/10/17 20:54 02/11/17 02:28 02/11/17 07:48 Bedside Glucose 271mg/dL (70-220) H 208mg/dL (70-220) 137mg/dL (70-220) 121mg/dL (70-220) Test 02/11/17 10:07 02/11/17 12:15 Bedside Glucose 161mg/dL (70-220) 117mg/dL (70-220) Results Result Diagram: 02/10/17 1221 02/10/17 1221 Results 24 hrs Laboratory Tests Test 02/10/17 17:22 02/10/17 20:54 02/11/17 02:28 02/11/17 07:48 Bedside Glucose 271 H 208 137 121 Test 02/11/17 10:07 02/11/17 12:15 Bedside Glucose 161 117 Medications Medications Current Medications Ticagrelor (Brilinta) 90 mg BID PO Last administered on 02/11/17 08:12; Admin Dose 90 MG; Start 02/05/17 at 22:00 Alendronate Sodium (Fosamax) 70 mg We@0705 PO Last administered on 02/11/17 06 :57; Admin Dose 70 MG; Start 02/11/17 at 07:05 Atorvastatin Calcium (Lipitor) 40 mg DAILY@21 PO Last administered on 20:56; Admin Dose 40 MG; Start 02/05/17 at 22:00 Aspirin (Halfprin) 81 mg DAILY PO Last administered on 02/11/17 08:12; Admin Dose 81 MG; Start 02/06/17 at 09:00 Metoprolol Tartrate (Lopressor) 12.5 mg BID PO Last administered on 02/10/17 20:57; Admin Dose 12.5 MG; Start 02/05/17 at 22:00 Levothyroxine Sodium (Synthroid) 112 mcg DAILY@06 PO Last administered on 06:56; Admin Dose 112 MCG; Start 02/06/17 at 06:00 Miscellaneous Information 1 ea NOTE XX ; Start 02/05/17 at 22:00 Glucose (Glutose) 15 gm Q15M PRN PO DECREASED GLUCOSE; Start 02/05/17 at 22:00 Glucose (Glutose) 22.5 gm Q15M PRN PO DECREASED GLUCOSE; Start 02/05/17 at 22: 00 Dextrose (D50w Syringe) 25 ml Q15M PRN IV DECREASED GLUCOSE; Start 02/05/17 at 22:00 Dextrose (D50w Syringe) 50 ml Q15M PRN IV DECREASED GLUCOSE; Start 02/05/17 at 22:00 Glucagon (Glucagen) 1 mg Q15M PRN IM DECREASED GLUCOSE; Start 02/05/17 at 22:00 Glucose (Glutose) 15 gm Q15M PRN BUCCAL DECREASED GLUCOSE Last administered on 02/08/17 22:34; Admin Dose 15 GM; Start 02/05/17 at 22:00 Docusate Sodium (Colace) 100 mg BID PO Last administered on 02/11/17 08:12; Admin Dose 100 MG; Start 02/06/17 at 09:00 Bisacodyl (Dulcolax Supp) 10 mg DAILY PRN [place] CONSTIPATION; Start 02/06/17 at 05 :00 Magnesium Hydroxide (Milk Of Mag) 30 ml BID PRN PO CONSTIPATION; Start at 05:00 Lactulose (Enulose) 20 gm DAILY PRN PO CONSTIPATION Last administered on 09:06; Admin Dose 20 GM; Start 02/06/17 at 05:00 Duloxetine HCl (Cymbalta) 30 mg DAILY PO Last administered on 02/11/17 08:12; Admin Dose 30 MG; Start 02/09/17 at 09:00 Gabapentin (Neurontin) 400 mg TID PO Last administered on 02/11/17 12:27; Admin Dose 400 MG; Start 02/08/17 at 13:00 Insulin Human NPH (Humulin N) 5 unit DAILY@20 SC Last administered on 21:00; Admin Dose 5 UNIT; Start 02/08/17 at 20:00 Furosemide (Lasix) 20 mg DAILY PO Last administered on 02/10/17 09:00; Admin Dose 20 MG; Start 02/10/17 at 09:00 Tramadol HCl (Ultram) 50 mg Q6H PRN PO sevre pain Last administered on 18:11; Admin Dose 50 MG; Start 02/09/17 at 14:00 Guaifenesin/ Dextromethorphan (Robitussin Dm Liquid Cup) 10 ml Q4H PRN PO cough Last administered on 02/10/17 18:11; Admin Dose 10 ML; Start 02/09/17 at 14:30 Insulin Glargine (Lantus) 14 unit DAILY@08 SC Last administered on 02/11/17 08 :10; Admin Dose 14 UNIT; Start 02/11/17 at 08:00 Diagnostic Test (Pha) (Accu-Chek) 1 ea 02 XX Last administered on 02/11/17 02: 00; Admin Dose 1 EA; Start 02/11/17 at 02:00 Diagnostic Test (Pha) (Accu-Chek) 1 ea XX Last administered on 02/11/17 02: 00; Admin Dose 1 EA; Start 02/11/17 at 02:00 DARYL MYERS MD Feb 11, 2017 13:30
[2017-02-11] MEDS: traMADol 50 MG TAB PO PRN (13:51)
--- NOTE | 2017-02-11 14:29 | CONS ---
Date/Time of Note Date/Time of Note DATE: 02/11/17 TIME: 14:28 Assessment/Plan Assessment/Plan Chief Complaint/Hosp Course 1. Multivessel CAD. -Status post CABG 2. DEE to LAD, SVG-OM 01/27/17. -Continue aspirin, Brilinta and statin. 2. Systolic congestive heart failure with pleural effusion. Currently stable. -Continue diuretics beta-blockers as tolerated. Of note, patient also had hx of thoracentesis. 3. Type 1 DM-with hypoglycemic episodes -Continue Accu-Cheks and adjusted insulin regimen recommended by pasteurizing supervisor. 4. L sided subglottic lesion -For outpatient ENT follow-up 5. Hypothyroidism. -Continue Synthroid. 6. History of atrial fibrillation. Now in sinus rhythm. 7. Ischemic cardiomyopathy -Continue current medical management. 8. Debility. -Continue with rehabilitation. 9. Dysphagia, now tolerating mechanical soft diet. 10.Left pleural effusion. No significant changes from prior study. Patient with normal respiratory effort. 7. Transient hypotension, likely secondary to pain medications. Now stable. Plan: Encourage incentive spirometry. Continue current management. Case discussed with . Problems: Consultation Date/Type/Reason Admit Date/Time Feb 05, 2017 at 18:59 Type of Consultation: Endocrinology Referring Provider: JORGE MESSINA MD 24 HR Interval Summary Free Text/Dictation Patient had episodes of feeling hypertension after she received Dilaudid. Exam/Review of Systems Vital Signs Vitals Vital Signs Date Time Temp Pulse Resp B/P Pulse Ox O2 Delivery O2 Flow Rate FiO2 02/11/17 07:54 97.8 75 18 93/54 96 02/10/17 04:59 21 Intake and Output 02/10/17 02/10/17 02/11/17 15:00 23:00 07:00 Intake Total 800 ml 400 ml 220 ml Balance 800 ml 400 ml 220 ml Exam General: female, who also looks older than what she really is, not in any acute distress . HEENT: Normocephalic, Atraumatic, No laceration or hematoma; Eyes: PEERL, Conjunctiva clear, Anicteric sclera Neck: Supple without any lymphadenopathy, nontender, no JVD, no carotid bruits, trachea midline, no thyromegaly Cardiac: S1, S2 auscultated, regular rhythm and rate, no mumurs or gallop Pulmonary: Normal respiratory effort. Chest clear to auscultation bilaterally, no adventitious breath sounds GI: Abdomen normal to inspection. Soft, non tender, non- distended, no masses, no rebound tenderness or guarding. Bowel sounds active on all four quadrants Genitourinary: Deferred Extremities: No cyanosis, clubbing, or edema. Pulses [2+] bilaterally. Full ROM on all four extremities. No focal weakness appreciated. Neurologic: Alert to person, place, time, and situation. Affect appropriate, intact sensation. Skin: Midsternal incision site intact. Clean,dry, and intact. No ecchymosis, no rashes, or lesions Results Result Diagram: 02/10/17 1221 02/10/17 1221 Results 24 hrs Laboratory Tests Test 02/10/17 17:22 02/10/17 20:54 02/11/17 02:28 02/11/17 07:48 Bedside Glucose 271 H 208 137 121 Test 02/11/17 10:07 02/11/17 12:15 02/11/17 14:10 Bedside Glucose 161 117 66 L Medications Medications Current Medications Ticagrelor (Brilinta) 90 mg BID PO Last administered on 02/11/17 08:12; Admin Dose 90 MG; Start 02/05/17 at 22:00 Alendronate Sodium (Fosamax) 70 mg We@0705 PO Last administered on 02/11/17 06 :57; Admin Dose 70 MG; Start 02/11/17 at 07:05 Atorvastatin Calcium (Lipitor) 40 mg DAILY@21 PO Last administered on 20:56; Admin Dose 40 MG; Start 02/05/17 at 22:00 Aspirin (Halfprin) 81 mg DAILY PO Last administered on 02/11/17 08:12; Admin Dose 81 MG; Start 02/06/17 at 09:00 Metoprolol Tartrate (Lopressor) 12.5 mg BID PO Last administered on 02/10/17 20:57; Admin Dose 12.5 MG; Start 02/05/17 at 22:00 Levothyroxine Sodium (Synthroid) 112 mcg DAILY@06 PO Last administered on 06:56; Admin Dose 112 MCG; Start 02/06/17 at 06:00 Miscellaneous Information 1 ea NOTE XX ; Start 02/05/17 at 22:00 Glucose (Glutose) 15 gm Q15M PRN PO DECREASED GLUCOSE; Start 02/05/17 at 22:00 Glucose (Glutose) 22.5 gm Q15M PRN PO DECREASED GLUCOSE; Start 02/05/17 at 22: 00 Dextrose (D50w Syringe) 25 ml Q15M PRN IV DECREASED GLUCOSE; Start 02/05/17 at 22:00 Dextrose (D50w Syringe) 50 ml Q15M PRN IV DECREASED GLUCOSE; Start 02/05/17 at 22:00 Glucagon (Glucagen) 1 mg Q15M PRN IM DECREASED GLUCOSE; Start 02/05/17 at 22:00 Glucose (Glutose) 15 gm Q15M PRN BUCCAL DECREASED GLUCOSE Last administered on 02/08/17 22:34; Admin Dose 15 GM; Start 02/05/17 at 22:00 Docusate Sodium (Colace) 100 mg BID PO Last administered on 02/11/17 08:12; Admin Dose 100 MG; Start 02/06/17 at 09:00 Bisacodyl (Dulcolax Supp) 10 mg DAILY PRN IN CONSTIPATION; Start 02/06/17 at 05 :00 Magnesium Hydroxide (Milk Of Mag) 30 ml BID PRN PO CONSTIPATION; Start at 05:00 Lactulose (Enulose) 20 gm DAILY PRN PO CONSTIPATION Last administered on 09:06; Admin Dose 20 GM; Start 02/06/17 at 05:00 Duloxetine HCl (Cymbalta) 30 mg DAILY PO Last administered on 02/11/17 08:12; Admin Dose 30 MG; Start 02/09/17 at 09:00 Gabapentin (Neurontin) 400 mg TID PO Last administered on 02/11/17 12:27; Admin Dose 400 MG; Start 02/08/17 at 13:00 Insulin Human NPH (Humulin N) 5 unit DAILY@20 SC Last administered on 21:00; Admin Dose 5 UNIT; Start 02/08/17 at 20:00 Furosemide (Lasix) 20 mg DAILY PO Last administered on 02/10/17 09:00; Admin Dose 20 MG; Start 02/10/17 at 09:00 Tramadol HCl (Ultram) 50 mg Q6H PRN PO sevre pain Last administered on 13:51; Admin Dose 50 MG; Start 02/09/17 at 14:00 Guaifenesin/ Dextromethorphan (Robitussin Dm Liquid Cup) 10 ml Q4H PRN PO cough Last administered on 02/10/17 18:11; Admin Dose 10 ML; Start 02/09/17 at 14:30 Insulin Glargine (Lantus) 14 unit DAILY@08 SC Last administered on 02/11/17 08 :10; Admin Dose 14 UNIT; Start 02/11/17 at 08:00 Diagnostic Test (Pha) (Accu-Chek) 1 ea 02 XX Last administered on 02/11/17 02: 00; Admin Dose 1 EA; Start 02/11/17 at 02:00 Diagnostic Test (Pha) (Accu-Chek) 1 ea 02 XX Last administered on 02/11/17 02: 00; Admin Dose 1 EA; Start 02/11/17 at 02:00 TAD HIGGINS NP Feb 11, 2017 14:29
--- NOTE | 2017-02-11 15:06 | CONS ---
Date/Time of Note Date/Time of Note DATE: 02/11/17 TIME: 15:04 Assessment/Plan Assessment/Plan Chief Complaint/Hosp Course IMP: 1.NSTEMI-peak trop>60 Now dowtrended significantly s/p LHC with patent RCA stents and high grade disease of LAD/LCX with small caliber vessels. Now post- op s/p cabg x 2 2.cardiomyopathy-EF 40 prior to cabg 3.Hypotension-borderline. 5.anemia 8. COPD 9. Hypothyroid 10.DM-labile BS 11.Neck mass? with dysphagia. Now s/p bronch with findings of subglottic mass. Per ENT possibly secondary to extended intubation.decrreased in size on last assessment 12. carotid stenosis 14. Pleural effusion s/p thoracentesis Recc: -Now in acute rehab -Continue BB low dose as tolerated only -Continue asa -Continue brilinta. -Continue statin -Smoking cessation -Follow BS closely -Continue bronchodilators -PT/OT -hold lasix at this time and follow BP/volume status closely -possible d/c 1-2 days as long as BP remain stable Problems: Consultation Date/Type/Reason Admit Date/Time Feb 05, 2017 at 18:59 Initial Consult Date 02/06/2017 Type of Consultation: cardiology Reason for Consultation cabg/nstemi Referring Provider: JORGE MESSINA MD Exam/Review of Systems Vital Signs Vitals Vital Signs Date Time Temp Pulse Resp B/P Pulse Ox O2 Delivery O2 Flow Rate FiO2 02/11/17 07:54 97.8 75 18 93/54 96 02/10/17 04:59 21 Intake and Output 02/10/17 02/10/17 02/11/17 15:00 23:00 07:00 Intake Total 800 ml 400 ml 220 ml Balance 800 ml 400 ml 220 ml Exam Review of Systems: CONSTITUTIONAL: No fevers, chills. PULMONARY: No sob CARDIOVASCULAR: No chest pain/palpitations GASTROINTESTINAL: No nausea/vomiting. GENITOURINARY: No hematuria/dysuria. MUSCULOSKELETAL: No myagias/arthalgias. PSYCHIATRIC: The patient denies depression. NEUROLOGIC: No weakness Constitutional: alert Psych: no complaints Head: normocephalic ENMT: mucosa pink and moist Neck: jvd (8 cm water), supple Respiratory: clear to auscultation Cardiovascular: regular rate and rhythm Gastrointestinal: non-tender, soft Musculoskeletal: muscle tone (normal) Extremities: edema (none) 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: other (No focal deficits) Results Result Diagram: 02/10/17 1221 02/10/17 1221 Results 24 hrs Laboratory Tests Test 02/10/17 17:22 02/10/17 20:54 02/11/17 02:28 02/11/17 07:48 Bedside Glucose 271 H 208 137 121 Test 02/11/17 10:07 02/11/17 12:15 02/11/17 14:10 Bedside Glucose 161 117 66 L Medications Medications Current Medications Ticagrelor (Brilinta) 90 mg BID PO Last administered on 02/11/17 08:12; Admin Dose 90 MG; Start 02/05/17 at 22:00 Alendronate Sodium (Fosamax) 70 mg We@0705 PO Last administered on 02/11/17 06 :57; Admin Dose 70 MG; Start 02/11/17 at 07:05 Atorvastatin Calcium (Lipitor) 40 mg DAILY@21 PO Last administered on 20:56; Admin Dose 40 MG; Start 02/05/17 at 22:00 Aspirin (Halfprin) 81 mg DAILY PO Last administered on 02/11/17 08:12; Admin Dose 81 MG; Start 02/06/17 at 09:00 Metoprolol Tartrate (Lopressor) 12.5 mg BID PO Last administered on 02/10/17 20:57; Admin Dose 12.5 MG; Start 02/05/17 at 22:00 Levothyroxine Sodium (Synthroid) 112 mcg DAILY@06 PO Last administered on 06:56; Admin Dose 112 MCG; Start 02/06/17 at 06:00 Miscellaneous Information 1 ea NOTE XX ; Start 02/05/17 at 22:00 Glucose (Glutose) 15 gm Q15M PRN PO DECREASED GLUCOSE; Start 02/05/17 at 22:00 Glucose (Glutose) 22.5 gm Q15M PRN PO DECREASED GLUCOSE; Start 02/05/17 at 22: 00 Dextrose (D50w Syringe) 25 ml Q15M PRN IV DECREASED GLUCOSE; Start 02/05/17 at 22:00 Dextrose (D50w Syringe) 50 ml Q15M PRN IV DECREASED GLUCOSE; Start 02/05/17 at 22:00 Glucagon (Glucagen) 1 mg Q15M PRN IM DECREASED GLUCOSE; Start 02/05/17 at 22:00 Glucose (Glutose) 15 gm Q15M PRN BUCCAL DECREASED GLUCOSE Last administered on 02/08/17 22:34; Admin Dose 15 GM; Start 02/05/17 at 22:00 Docusate Sodium (Colace) 100 mg BID PO Last administered on 02/11/17 08:12; Admin Dose 100 MG; Start 02/06/17 at 09:00 Bisacodyl (Dulcolax Supp) 10 mg DAILY PRN [place] CONSTIPATION; Start 02/06/17 at 05 :00 Magnesium Hydroxide (Milk Of Mag) 30 ml BID PRN PO CONSTIPATION; Start at 05:00 Lactulose (Enulose) 20 gm DAILY PRN PO CONSTIPATION Last administered on 09:06; Admin Dose 20 GM; Start 02/06/17 at 05:00 Duloxetine HCl (Cymbalta) 30 mg DAILY PO Last administered on 02/11/17 08:12; Admin Dose 30 MG; Start 02/09/17 at 09:00 Gabapentin (Neurontin) 400 mg TID PO Last administered on 02/11/17 12:27; Admin Dose 400 MG; Start 02/08/17 at 13:00 Insulin Human NPH (Humulin N) 5 unit DAILY@20 SC Last administered on 21:00; Admin Dose 5 UNIT; Start 02/08/17 at 20:00 Furosemide (Lasix) 20 mg DAILY PO Last administered on 02/10/17 09:00; Admin Dose 20 MG; Start 02/10/17 at 09:00 Tramadol HCl (Ultram) 50 mg Q6H PRN PO sevre pain Last administered on 13:51; Admin Dose 50 MG; Start 02/09/17 at 14:00 Guaifenesin/ Dextromethorphan (Robitussin Dm Liquid Cup) 10 ml Q4H PRN PO cough Last administered on 02/10/17 18:11; Admin Dose 10 ML; Start 02/09/17 at 14:30 Insulin Glargine (Lantus) 14 unit DAILY@08 SC Last administered on 8/30/17at 08 :10; Admin Dose 14 UNIT; Start 02/11/17 at 08:00 Diagnostic Test (Pha) (Accu-Chek) 1 ea XX Last administered on 02/11/17 02: 00; Admin Dose 1 EA; Start 02/11/17 at 02:00 Diagnostic Test (Pha) (Accu-Chek) 1 ea XX Last administered on 02/11/17 02: 00; Admin Dose 1 EA; Start 02/11/17 at 02:00 RHONDA PENA Feb 11, 2017 15:06
[2017-02-11 20:00] VITALS: BP 101/56; RESP 18
[2017-02-11] MEDS: ATORVASTATIN 40 MG TAB PO SCH (21:03)
[2017-02-11] MEDS: NPH, HUMAN INSULIN ISOPHANE 3ML VIAL SC SCH (21:04)
[2017-02-12 02:00] VITALS: BP 129/54; RESP 18
[2017-02-12] MEDS: ACCU-CHEK XX SCH ×5 (02:00→20:00)
--- NOTE | 2017-02-12 02:06 | CONS ---
DATE OF ADMISSION: 02/05/2017 DATE OF CONSULTATION: 02/11/2017 TYPE OF CONSULTATION: Psychological. CONSULTING PSYCHOLOGIST: Cj Macias, PhD. REASON FOR CONSULTATION: This consultation was requested by Dr. Miquel Coe in order to evaluate the cognitive functioning of this patient related to her present medical condition. HISTORY OF PRESENT ILLNESS: The patient is a 56-year-old female. She has a past history of severe coronary artery disease. The patient reports that she has had 3 heart attacks. The patient just recently underwent a CABG. The patient states that she was in ICU for 2 weeks and on a ventilator and she has been in the hospital about 3 months. The patient is very frustrated about her medical problems but feels like she is getting better. The patient is happy to be in the acute rehabilitation unit because she feels like she is now making progress toward going back home. The patient is frustrated but optimistic about her ability to recover. The patient still has a number of years regarding her heart problem. FAMILY/SOCIAL HISTORY: The patient lives in a home in [place] with her , her daughter, and 4 grandchildren. The patient does want to return there after discharge. MEDICATION: The patient is currently on: 1. Cymbalta 30 mg daily. 2. Neurontin 400 t.i.d. SUBSTANCE USE: The patient denies any use of alcohol. The patient reports that she does not smoke any longer, but was smoking a pack and half of cigarettes per day prior to admission. MENTAL STATUS EXAMINATION: APPEARANCE: The patient appeared to be of average height and weight. She was seen sitting on the side of her bed. The patient is left-handed and wears glasses. BEHAVIOR: The patient was cooperative during the consultation. The patient did attempt to answer all questions presented to her by the interviewer. MOOD AND AFFECT: The patient's mood appears to be slightly depressed. Affect does appear to be slightly anxious. PERCEPTION: Patient reports no hallucinations or delusions. The patient was alert to person, place, situation, and time. MEMORY AND COGNITION: The patient's memory and cognition were basically intact. She was able to say the name of the hospital. The patient was able to say the month and the year. The patient was able to say who the President of [facility] is. The patient could not state who the governor of the state or the mayor of [facility] is. The patient was able to spell world backwards. The patient was able to do 5 serial 7 subtractions from 100 without error. INTELLIGENCE: Appears to fall in the average range. INSIGHT: Good. JUDGMENT: Good. THOUGHT CONTENT: The patient is very concerned about her present medical condition. The patient is fearful that she will have another incident with her heart. The patient does report that she is no longer going to smoke when she leaves. The patient is motivated to continue to work on her medical issues so that she can recover. DISCUSSION: The patient can likely benefit from some cognitive/behavioral psychotherapy while she is on the unit. The psychotherapy would focus on her underlying level of fear regarding her medical condition and work on her overall mood, as well as motivation to continue to work on her health. 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 Thank you very much, Dr. Miquel Coe, for referring this individual. Please do not hesitate to call if you have additional questions. Dictated By: Cj Macias, PHD /[email or web address]/venus /Document#: [id number]
[2017-02-12] MEDS: LEVOTHYROXINE 112 MCG TAB PO SCH (06:42)
[2017-02-12 07:30] VITALS: BP 96/49; RESP 20
[2017-02-12] MEDS: INSULIN ASPART [NOVOLOG] 3 ML PEN SC SCH ×6 (08:22→21:00)
[2017-02-12] MEDS: INSULIN GLARGINE [LANtus] 3 ML PEN SC SCH (08:23)
[2017-02-12] MEDS: DULOXETINE 30 MG CAP DR PO SCH (08:24)
[2017-02-12] MEDS: TICAGRELOR 90 MG TABLET PO SCH ×2 (08:24→21:16)
[2017-02-12] MEDS: GABAPENTIN 400 MG CAP PO SCH (08:25)
[2017-02-12] MEDS: METOPROLOL 25 MG TAB PO SCH ×2 (08:25→21:00)
[2017-02-12] MEDS: ASPIRIN (EC) 81 MG TAB PO SCH (08:25)
[2017-02-12] MEDS: DOCUSATE SODIUM 100 MG CAP PO SCH ×2 (08:25→21:09)
[2017-02-12] MEDS ORDERED: INSULIN ASPART [NOVOLOG] 3 ML PEN SC SCH (12:00)
[2017-02-12] MEDS ORDERED: GABAPENTIN 300 MG CAP ONE (13:49)
--- NOTE | 2017-02-12 13:59 | CONS ---
Date/Time of Note Date/Time of Note DATE: 02/12/17 TIME: 13:59 Consult Date/Type/Reason Admit Date/Time Feb 05, 2017 at 18:59 Type of Consultation: cardiology Ordering Provider: JORGE MESSINA MD Subjective Comfortable Objective pulm-cta sba ambulation Vital Signs Date Time Temp Pulse Resp B/P Pulse Ox O2 Delivery O2 Flow Rate FiO2 02/12/17 07:30 98.5 87 20 96/49 96 02/10/17 04:59 21 Intake and Output 02/11/17 02/11/17 02/12/17 15:00 23:00 07:00 Intake Total 800 ml 400 ml 690 ml Output Total 300 ml Balance 800 ml 400 ml 390 ml Results/Medications Result Diagram: 02/10/17 1221 02/10/17 1221 Results 24 hrs Laboratory Tests Test 02/11/17 14:10 02/11/17 15:06 02/11/17 17:18 02/11/17 19:50 Bedside Glucose 66 L 75 123 193 Test 02/11/17 20:57 02/12/17 08:05 02/12/17 09:32 02/12/17 12:07 Bedside Glucose 121 144 278 H 286 H Medications Current Medications Ticagrelor (Brilinta) 90 mg BID PO Last administered on 02/12/17 08:24; Admin Dose 90 MG; Start 02/05/17 at 22:00 Alendronate Sodium (Fosamax) 70 mg We@0705 PO Last administered on 02/11/17 06 :57; Admin Dose 70 MG; Start 02/11/17 at 07:05 Atorvastatin Calcium (Lipitor) 40 mg DAILY@21 PO Last administered on 21:03; Admin Dose 40 MG; Start 02/05/17 at 22:00 Aspirin (Halfprin) 81 mg DAILY PO Last administered on 02/12/17 08:25; Admin Dose 81 MG; Start 02/06/17 at 09:00 Metoprolol Tartrate (Lopressor) 12.5 mg BID PO Last administered on 02/10/17 20:57; Admin Dose 12.5 MG; Start 02/05/17 at 22:00 Levothyroxine Sodium (Synthroid) 112 mcg DAILY@06 PO Last administered on 06:42; Admin Dose 112 MCG; Start 02/06/17 at 06:00 Miscellaneous Information 1 ea NOTE XX ; Start 02/05/17 at 22:00 Glucose (Glutose) 15 gm Q15M PRN PO DECREASED GLUCOSE; Start 02/05/17 at 22:00 Glucose (Glutose) 22.5 gm Q15M PRN PO DECREASED GLUCOSE; Start 02/05/17 at 22: 00 Dextrose (D50w Syringe) 25 ml Q15M PRN IV DECREASED GLUCOSE; Start 02/05/17 at 22:00 Dextrose (D50w Syringe) 50 ml Q15M PRN IV DECREASED GLUCOSE; Start 02/05/17 at 22:00 Glucagon (Glucagen) 1 mg Q15M PRN IM DECREASED GLUCOSE; Start 02/05/17 at 22:00 Glucose (Glutose) 15 gm Q15M PRN BUCCAL DECREASED GLUCOSE Last administered on 02/08/17 22:34; Admin Dose 15 GM; Start 02/05/17 at 22:00 Docusate Sodium (Colace) 100 mg BID PO Last administered on 02/12/17 08:25; Admin Dose 100 MG; Start 02/06/17 at 09:00 Bisacodyl (Dulcolax Supp) 10 mg DAILY PRN [place] CONSTIPATION; Start 02/06/17 at 05 :00 Magnesium Hydroxide (Milk Of Mag) 30 ml BID PRN PO CONSTIPATION; Start at 05:00 Lactulose (Enulose) 20 gm DAILY PRN PO CONSTIPATION Last administered on 09:06; Admin Dose 20 GM; Start 02/06/17 at 05:00 Duloxetine HCl (Cymbalta) 30 mg DAILY PO Last administered on 02/12/17 08:24; Admin Dose 30 MG; Start 02/09/17 at 09:00 Insulin Human NPH (Humulin N) 5 unit DAILY@20 SC Last administered on 21:04; Admin Dose 5 UNIT; Start 02/08/17 at 20:00 Furosemide (Lasix) 20 mg DAILY PO Last administered on 02/10/17 09:00; Admin Dose 20 MG; Start 02/10/17 at 09:00; Status Future Hold Tramadol HCl (Ultram) 50 mg Q6H PRN PO sevre pain Last administered on 13:51; Admin Dose 50 MG; Start 02/09/17 at 14:00 Guaifenesin/ Dextromethorphan (Robitussin Dm Liquid Cup) 10 ml Q4H PRN PO cough Last administered on 02/10/17 18:11; Admin Dose 10 ML; Start 02/09/17 at 14:30 Insulin Glargine (Lantus) 14 unit DAILY@08 SC Last administered on 02/12/17 08 :23; Admin Dose 14 UNIT; Start 02/11/17 at 08:00 Diagnostic Test (Pha) (Accu-Chek) 1 ea 02 XX Last administered on 02/11/17 02: 00; Admin Dose 1 EA; Start 02/11/17 at 02:00 Diagnostic Test (Pha) (Accu-Chek) 1 ea 02 XX Last administered on 02/11/17 02: 00; Admin Dose 1 EA; Start 02/11/17 at 02:00 Gabapentin (Neurontin) 300 mg TID PO ; Start 02/12/17 at 21:00 Assessment/Plan Additional Assessment/Plan Rehab- Improving toxic metabolic encephalopathy; debility Continue rehab Hypotension- meds per cardiology Coronary artery disease and recent [id number] CT,status post CABG. Pleural effusion status post thoracentesis. COPD. Improved orthostatic hypotension. Improving dysphagia. Neck mass. Diabetes mellitus type 2- elevated bs this AM, adjust meds. Hypothyroidism. JORGE MESSINA MD Feb 12, 2017 13:59
[2017-02-12] MEDS: GABAPENTIN 300 MG CAP PO SCH (14:07)
--- NOTE | 2017-02-12 14:39 | CONS ---
Date/Time of Note Date/Time of Note DATE: 02/12/17 TIME: 14:37 Assessment/Plan Assessment/Plan Chief Complaint/Hosp Course 1. Multivessel CAD. -Status post CABG 2. DEE to LAD, SVG-OM 01/27/17. -Continue aspirin, Brilinta and statin. 2. Systolic congestive heart failure with pleural effusion. Currently stable. -Continue diuretics beta-blockers as tolerated. Of note, patient also had hx of thoracentesis. 3. Type 1 DM- Today with more glycemic control. -Continue Accu-Cheks and adjusted insulin regimen recommended by customer greeter. 4. L sided subglottic lesion -For outpatient ENT follow-up 5. Hypothyroidism. -Continue Synthroid. 6. History of atrial fibrillation. Now in sinus rhythm. 7. Ischemic cardiomyopathy -Continue current medical management. 8. Debility. -Continue with rehabilitation. 9. Dysphagia, now tolerating mechanical soft diet. 10.Left pleural effusion. No significant changes from prior study. Patient with normal respiratory effort. 7. Transient hypotension, likely secondary to pain medications. Now stable. -Recommend review of antihypertensives with cardiology up on discharge home. Needs titration. Plan: Encourage incentive spirometry. Continue current management.For DC tomorrow. Case discussed with . Problems: Consultation Date/Type/Reason Admit Date/Time Feb 05, 2017 at 18:59 Type of Consultation: cardiology Referring Provider: JORGE MESSINA MD 24 HR Interval Summary Free Text/Dictation BP relatively stable. Antihypertensives on hold. Exam/Review of Systems Vital Signs Vitals Vital Signs Date Time Temp Pulse Resp B/P Pulse Ox O2 Delivery O2 Flow Rate FiO2 02/12/17 07:30 98.5 87 20 96/49 96 02/10/17 04:59 21 Intake and Output 02/11/17 02/11/17 02/12/17 15:00 23:00 07:00 Intake Total 800 ml 400 ml 690 ml Output Total 300 ml Balance 800 ml 400 ml 390 ml Exam General: female, who also looks older than what she really is, not in any acute distress . HEENT: Normocephalic, Atraumatic, No laceration or hematoma; Eyes: PEERL, Conjunctiva clear, Anicteric sclera Neck: Supple without any lymphadenopathy, nontender, no JVD, no carotid bruits, trachea midline, no thyromegaly Cardiac: S1, S2 auscultated, regular rhythm and rate, no mumurs or gallop Pulmonary: Normal respiratory effort. Chest clear to auscultation bilaterally, no adventitious breath sounds GI: Abdomen normal to inspection. Soft, non tender, non- distended, no masses, no rebound tenderness or guarding. Bowel sounds active on all four quadrants Genitourinary: Deferred Extremities: No cyanosis, clubbing, or edema. Pulses [2+] bilaterally. Full ROM on all four extremities. No focal weakness appreciated. Neurologic: Alert to person, place, time, and situation. Affect appropriate, intact sensation. Skin: Midsternal incision site intact. Clean,dry, and intact. No ecchymosis, no rashes, or lesions Results Result Diagram: 02/10/17 1221 02/10/17 1221 Results 24 hrs Laboratory Tests Test 02/11/17 15:06 02/11/17 17:18 02/11/17 19:50 02/11/17 20:57 Bedside Glucose 75 123 193 121 Test 02/12/17 08:05 02/12/17 09:32 02/12/17 12:07 02/12/17 14:04 Bedside Glucose 144 278 H 286 H 143 Medications Medications Current Medications Ticagrelor (Brilinta) 90 mg BID PO Last administered on 02/12/17 08:24; Admin Dose 90 MG; Start 02/05/17 at 22:00 Alendronate Sodium (Fosamax) 70 mg We@0705 PO Last administered on 02/11/17 06 :57; Admin Dose 70 MG; Start 02/11/17 at 07:05 Atorvastatin Calcium (Lipitor) 40 mg DAILY@21 PO Last administered on 21:03; Admin Dose 40 MG; Start 02/05/17 at 22:00 Aspirin (Halfprin) 81 mg DAILY PO Last administered on 02/12/17 08:25; Admin Dose 81 MG; Start 02/06/17 at 09:00 Metoprolol Tartrate (Lopressor) 12.5 mg BID PO Last administered on 02/10/17 20:57; Admin Dose 12.5 MG; Start 02/05/17 at 22:00 Levothyroxine Sodium (Synthroid) 112 mcg DAILY@06 PO Last administered on 06:42; Admin Dose 112 MCG; Start 02/06/17 at 06:00 Miscellaneous Information 1 ea NOTE XX ; Start 02/05/17 at 22:00 Glucose (Glutose) 15 gm Q15M PRN PO DECREASED GLUCOSE; Start 02/05/17 at 22:00 Glucose (Glutose) 22.5 gm Q15M PRN PO DECREASED GLUCOSE; Start 02/05/17 at 22: 00 Dextrose (D50w Syringe) 25 ml Q15M PRN IV DECREASED GLUCOSE; Start 02/05/17 at 22:00 Dextrose (D50w Syringe) 50 ml Q15M PRN IV DECREASED GLUCOSE; Start 02/05/17 at 22:00 Glucagon (Glucagen) 1 mg Q15M PRN IM DECREASED GLUCOSE; Start 02/05/17 at 22:00 Glucose (Glutose) 15 gm Q15M PRN BUCCAL DECREASED GLUCOSE Last administered on 02/08/17 22:34; Admin Dose 15 GM; Start 02/05/17 at 22:00 Docusate Sodium (Colace) 100 mg BID PO Last administered on 02/12/17 08:25; Admin Dose 100 MG; Start 02/06/17 at 09:00 Bisacodyl (Dulcolax Supp) 10 mg DAILY PRN [place] CONSTIPATION; Start 02/06/17 at 05 :00 Magnesium Hydroxide (Milk Of Mag) 30 ml BID PRN PO CONSTIPATION; Start at 05:00 Lactulose (Enulose) 20 gm DAILY PRN PO CONSTIPATION Last administered on 09:06; Admin Dose 20 GM; Start 02/06/17 at 05:00 Duloxetine HCl (Cymbalta) 30 mg DAILY PO Last administered on 02/12/17 08:24; Admin Dose 30 MG; Start 02/09/17 at 09:00 Insulin Human NPH (Humulin N) 5 unit DAILY@20 SC Last administered on 21:04; Admin Dose 5 UNIT; Start 02/08/17 at 20:00 Furosemide (Lasix) 20 mg DAILY PO Last administered on 02/10/17 09:00; Admin Dose 20 MG; Start 02/10/17 at 09:00; Status Future Hold Tramadol HCl (Ultram) 50 mg Q6H PRN PO sevre pain Last administered on 13:51; Admin Dose 50 MG; Start 02/09/17 at 14:00 Guaifenesin/ Dextromethorphan (Robitussin Dm Liquid Cup) 10 ml Q4H PRN PO cough Last administered on 02/10/17 18:11; Admin Dose 10 ML; Start 02/09/17 at 14:30 Insulin Glargine (Lantus) 14 unit DAILY@08 SC Last administered on 02/12/17 08 :23; Admin Dose 14 UNIT; Start 02/11/17 at 08:00 Diagnostic Test (Pha) (Accu-Chek) 1 ea 02 XX Last administered on 02/11/17 02: 00; Admin Dose 1 EA; Start 02/11/17 at 02:00 Diagnostic Test (Pha) (Accu-Chek) 1 ea 02 XX Last administered on 02/11/17 02: 00; Admin Dose 1 EA; Start 02/11/17 at 02:00 Gabapentin (Neurontin) 300 mg TID PO Last administered on 02/12/17 14:07; Admin Dose 300 MG; Start 02/12/17 at 21:00 TAD HIGGINS NP Feb 12, 2017 14:39
--- NOTE | 2017-02-12 17:46 | CONS ---
Date/Time of Note Date/Time of Note DATE: 02/12/17 TIME: 17:41 Assessment/Plan Assessment/Plan Problems: (1) Type 1 diabetes mellitus with diabetic polyneuropathy Status: Chronic Comment: FS improved this am and afternoon but in am breakfast dose of Novolog was inadequate and lunch time dosage was too much for pt. w/ correction. Will not make any changes. Expect glucose will be more stable tomorrow. Consultation Date/Type/Reason Admit Date/Time Feb 05, 2017 at 18:59 Initial Consult Date 01/14/2017 Type of Consultation: Endocrinology Reason for Consultation T1DM OOC Referring Provider: JORGE MESSINA MD 24 HR Interval Summary Constitutional: other (lightheaded earlier today) Detailed Summary Respiratory: no complaints Cardiovascular: no complaints Gastrointestinal: no complaints Genitourinary: no complaints Musculoskeletal: no complaints Neurologic: no complaints Exam/Review of Systems Vital Signs Vitals VS - Last 72 Hours, by Label Date Time Temp Pulse Resp B/P Pulse Ox O2 Delivery O2 Flow Rate FiO2 02/12/17 07:30 98.5 87 20 96/49 96 02/12/17 02:00 97.8 83 18 129/54 95 02/11/17 20:00 98.3 88 18 101/56 98 02/11/17 07:54 97.8 75 18 93/54 96 02/11/17 02:02 97.8 74 18 108/56 99 02/10/17 20:00 98.3 87 18 103/55 94 02/10/17 08:00 98.4 85 18 100/58 97 02/10/17 04:59 21 02/10/17 02:00 98.6 84 18 103/61 96 02/09/17 20:00 98.6 91 18 106/54 93 Vital Signs Date Time Temp Pulse Resp B/P Pulse Ox O2 Delivery O2 Flow Rate FiO2 02/12/17 07:30 98.5 87 20 96/49 96 02/10/17 04:59 21 Intake and Output 02/11/17 02/11/17 02/12/17 15:00 23:00 07:00 Intake Total 800 ml 400 ml 690 ml Output Total 300 ml Balance 800 ml 400 ml 390 ml Exam Constitutional: alert, oriented, well developed Psych: nl mood/affect, no complaints Respiratory: clear to auscultation, normal air movement Cardiovascular: nl pulses, regular rate and rhythm, No edema, No murmurs/extra sounds, No rub Gastrointestinal: bowel sounds, nl liver, spleen, non-tender, soft, No mass, No rebound or guarding Musculoskeletal: nl extremities to inspection Extremities: normal pulses, No clubbing, No cyanosis, No edema 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: ACCESS LEAD II-XII intact, nl mental status, nl speech, nl strength Additional Comments Bedside Glucose - 72 Hours Test 02/09/17 20:11 02/10/17 07:47 02/10/17 11:17 02/10/17 12:13 Bedside Glucose 225mg/dL (70-220) H 155mg/dL (70-220) 342mg/dL (70-220) H 310mg/dL (70-220) H Test 02/10/17 17:22 02/10/17 20:54 02/11/17 02:28 02/11/17 07:48 Bedside Glucose 271mg/dL (70-220) H 208mg/dL (70-220) 137mg/dL (70-220) 121mg/dL (70-220) Test 02/11/17 10:07 02/11/17 12:15 02/11/17 14:10 02/11/17 15:06 Bedside Glucose 161mg/dL (70-220) 117mg/dL (70-220) 66mg/dL (70-220) L 75mg/dL (70-220) Test 02/11/17 17:18 02/11/17 19:50 02/11/17 20:57 02/12/17 08:05 Bedside Glucose 123mg/dL (70-220) 193mg/dL (70-220) 121mg/dL (70-220) 144mg/dL (70-220) Test 02/12/17 09:32 02/12/17 12:07 02/12/17 14:04 02/12/17 17:22 Bedside Glucose 278mg/dL (70-220) H 286mg/dL (70-220) H 143mg/dL (70-220) 53mg/dL (70-220) L Results Result Diagram: 02/10/17 1221 02/10/17 1221 Results 24 hrs Laboratory Tests Test 02/11/17 19:50 02/11/17 20:57 02/12/17 08:05 02/12/17 09:32 Bedside Glucose 193 121 144 278 H Test 02/12/17 12:07 02/12/17 14:04 02/12/17 17:22 Bedside Glucose 286 H 143 53 L Medications Medications Current Medications Ticagrelor (Brilinta) 90 mg BID PO Last administered on 02/12/17 08:24; Admin Dose 90 MG; Start 02/05/17 at 22:00 Alendronate Sodium (Fosamax) 70 mg We@0705 PO Last administered on 02/11/17 06 :57; Admin Dose 70 MG; Start 02/11/17 at 07:05 Atorvastatin Calcium (Lipitor) 40 mg DAILY@21 PO Last administered on 21:03; Admin Dose 40 MG; Start 02/05/17 at 22:00 Aspirin (Halfprin) 81 mg DAILY PO Last administered on 02/12/17 08:25; Admin Dose 81 MG; Start 02/06/17 at 09:00 Metoprolol Tartrate (Lopressor) 12.5 mg BID PO Last administered on 02/10/17 20:57; Admin Dose 12.5 MG; Start 02/05/17 at 22:00 Levothyroxine Sodium (Synthroid) 112 mcg DAILY@06 PO Last administered on 06:42; Admin Dose 112 MCG; Start 02/06/17 at 06:00 Miscellaneous Information 1 ea NOTE XX ; Start 02/05/17 at 22:00 Glucose (Glutose) 15 gm Q15M PRN PO DECREASED GLUCOSE; Start 02/05/17 at 22:00 Glucose (Glutose) 22.5 gm Q15M PRN PO DECREASED GLUCOSE; Start 02/05/17 at 22: 00 Dextrose (D50w Syringe) 25 ml Q15M PRN IV DECREASED GLUCOSE; Start 02/05/17 at 22:00 Dextrose (D50w Syringe) 50 ml Q15M PRN IV DECREASED GLUCOSE; Start 02/05/17 at 22:00 Glucagon (Glucagen) 1 mg Q15M PRN IM DECREASED GLUCOSE; Start 02/05/17 at 22:00 Glucose (Glutose) 15 gm Q15M PRN BUCCAL DECREASED GLUCOSE Last administered on 02/08/17 22:34; Admin Dose 15 GM; Start 02/05/17 at 22:00 Docusate Sodium (Colace) 100 mg BID PO Last administered on 02/12/17 08:25; Admin Dose 100 MG; Start 02/06/17 at 09:00 Bisacodyl (Dulcolax Supp) [address] CONSTIPATION; Start 02/06/17 at 05 :00 Magnesium Hydroxide (Milk Of Mag) 30 ml BID PRN PO CONSTIPATION; Start at 05:00 Lactulose (Enulose) 20 gm DAILY PRN PO CONSTIPATION Last administered on 09:06; Admin Dose 20 GM; Start 02/06/17 at 05:00 Duloxetine HCl (Cymbalta) 30 mg DAILY PO Last administered on 02/12/17 08:24; Admin Dose 30 MG; Start 02/09/17 at 09:00 Insulin Human NPH (Humulin N) 5 unit DAILY@20 SC Last administered on 21:04; Admin Dose 5 UNIT; Start 02/08/17 at 20:00 Furosemide (Lasix) 20 mg DAILY PO Last administered on 02/10/17 09:00; Admin Dose 20 MG; Start 02/10/17 at 09:00; Status Future Hold Tramadol HCl (Ultram) 50 mg Q6H PRN PO sevre pain Last administered on 13:51; Admin Dose 50 MG; Start 02/09/17 at 14:00 Guaifenesin/ Dextromethorphan (Robitussin Dm Liquid Cup) 10 ml Q4H PRN PO cough Last administered on 02/10/17 18:11; Admin Dose 10 ML; Start 02/09/17 at 14:30 Insulin Glargine (Lantus) 14 unit DAILY@08 SC Last administered on 02/12/17 08 :23; Admin Dose 14 UNIT; Start 02/11/17 at 08:00 Diagnostic Test (Pha) (Accu-Chek) 1 ea 02 XX Last administered on 02/11/17 02: 00; Admin Dose 1 EA; Start 02/11/17 at 02:00 Diagnostic Test (Pha) (Accu-Chek) 1 ea 02 XX Last administered on 02/11/17 02: 00; Admin Dose 1 EA; Start 02/11/17 at 02:00 Gabapentin (Neurontin) 300 mg TID PO Last administered on 02/12/17t 14:07; Admin Dose 300 MG; Start 02/12/17 at 21:00 DARYL MYERS MD Feb 12, 2017 17:46
[2017-02-12 19:40] VITALS: BP 104/53; RESP 18
[2017-02-12] MEDS: traMADol 50 MG TAB PO PRN (20:59)
--- NOTE | 2017-02-12 21:01 | CONS ---
Date/Time of Note Date/Time of Note DATE: 02/12/17 TIME: 21:00 Assessment/Plan Assessment/Plan Chief Complaint/Hosp Course IMP: 1.NSTEMI-peak trop>60 Now dowtrended significantly s/p LHC with patent RCA stents and high grade disease of LAD/LCX with small caliber vessels. Now post- op s/p cabg x 2 2.cardiomyopathy-EF 40 prior to cabg 3.Hypotension-borderline. 5.anemia 8. COPD 9. Hypothyroid 10.DM-labile BS 11.Neck mass? with dysphagia. Now s/p bronch with findings of subglottic mass. Per ENT possibly secondary to extended intubation.decrreased in size on last assessment 12. carotid stenosis 14. Pleural effusion s/p thoracentesis Recc: -Now in acute rehab -Continue BB low dose as tolerated only -Continue asa -Continue brilinta. -Continue statin -Smoking cessation -Follow BS closely -Continue bronchodilators -PT/OT -On D/C resume lasix 20 mg qod -outpatient f/u with me 2-3 weeks Problems: Consultation Date/Type/Reason Admit Date/Time Feb 05, 2017 at 18:59 Initial Consult Date 02/06/2017 Type of Consultation: cardiology Reason for Consultation nstemi Referring Provider: JORGE MESSINA MD Exam/Review of Systems Vital Signs Vitals Vital Signs Date Time Temp Pulse Resp B/P Pulse Ox O2 Delivery O2 Flow Rate FiO2 02/12/17 19:40 98.1 97 18 104/53 95 02/10/17 04:59 21 Intake and Output 02/11/17 02/11/17 02/12/17 15:00 23:00 07:00 Intake Total 800 ml 400 ml 690 ml Output Total 300 ml Balance 800 ml 400 ml 390 ml Exam Review of Systems: CONSTITUTIONAL: No fevers, chills. PULMONARY: No sob CARDIOVASCULAR: No chest pain/palpitations GASTROINTESTINAL: No nausea/vomiting. GENITOURINARY: No hematuria/dysuria. MUSCULOSKELETAL: No myagias/arthalgias. PSYCHIATRIC: The patient denies depression. NEUROLOGIC: No weakness Constitutional: alert, oriented Psych: no complaints Head: normocephalic ENMT: mucosa pink and moist Neck: jvd (8-9 cm water), supple Respiratory: clear to auscultation Cardiovascular: regular rate and rhythm Gastrointestinal: non-tender, soft Musculoskeletal: muscle tone (normal) Extremities: edema (none) 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: other (NO focal deficits) Results Result Diagram: 02/10/17 1221 02/10/17 1221 Results 24 hrs Laboratory Tests Test 02/12/17 08:05 02/12/17 09:32 02/12/17 12:07 02/12/17 14:04 Bedside Glucose 144 278 H 286 H 143 Test 02/12/17 17:22 02/12/17 17:39 02/12/17 18:09 Bedside Glucose 53 L 55 L 135 Medications Medications Current Medications Ticagrelor (Brilinta) 90 mg BID PO Last administered on 02/12/17 08:24; Admin Dose 90 MG; Start 02/05/17 at 22:00 Alendronate Sodium (Fosamax) 70 mg We@0705 PO Last administered on 02/11/17 06 :57; Admin Dose 70 MG; Start 02/11/17 at 07:05 Atorvastatin Calcium (Lipitor) 40 mg DAILY@21 PO Last administered on 21:03; Admin Dose 40 MG; Start 02/05/17 at 22:00 Aspirin (Halfprin) 81 mg DAILY PO Last administered on 02/12/17 08:25; Admin Dose 81 MG; Start 02/06/17 at 09:00 Metoprolol Tartrate (Lopressor) 12.5 mg BID PO Last administered on 02/10/17 20:57; Admin Dose 12.5 MG; Start 02/05/17 at 22:00 Levothyroxine Sodium (Synthroid) 112 mcg DAILY@06 PO Last administered on 06:42; Admin Dose 112 MCG; Start 02/06/17 at 06:00 Miscellaneous Information 1 ea NOTE XX ; Start 02/05/17 at 22:00 Glucose (Glutose) 15 gm Q15M PRN PO DECREASED GLUCOSE; Start 02/05/17 at 22:00 Glucose (Glutose) 22.5 gm Q15M PRN PO DECREASED GLUCOSE; Start 02/05/17 at 22: 00 Dextrose (D50w Syringe) 25 ml Q15M PRN IV DECREASED GLUCOSE; Start 02/05/17 at 22:00 Dextrose (D50w Syringe) 50 ml Q15M PRN IV DECREASED GLUCOSE; Start 02/05/17 at 22:00 Glucagon (Glucagen) 1 mg Q15M PRN IM DECREASED GLUCOSE; Start 02/05/17 at 22:00 Glucose (Glutose) 15 gm Q15M PRN BUCCAL DECREASED GLUCOSE Last administered on 02/08/17 22:34; Admin Dose 15 GM; Start 02/05/17 at 22:00 Docusate Sodium (Colace) 100 mg BID PO Last administered on 02/12/17 08:25; Admin Dose 100 MG; Start 02/06/17 at 09:00 Bisacodyl (Dulcolax Supp) 10 mg DAILY PRN [place] CONSTIPATION; Start 02/06/17 at 05 :00 Magnesium Hydroxide (Milk Of Mag) 30 ml BID PRN PO CONSTIPATION; Start at 05:00 Lactulose (Enulose) 20 gm DAILY PRN PO CONSTIPATION Last administered on 09:06; Admin Dose 20 GM; Start 02/06/17 at 05:00 Duloxetine HCl (Cymbalta) 30 mg DAILY PO Last administered on 02/12/17 08:24; Admin Dose 30 MG; Start 02/09/17 at 09:00 Insulin Human NPH (Humulin N) 5 unit DAILY@20 SC Last administered on 21:04; Admin Dose 5 UNIT; Start 02/08/17 at 20:00 Furosemide (Lasix) 20 mg DAILY PO Last administered on 02/10/17 09:00; Admin Dose 20 MG; Start 02/10/17 at 09:00; Status Future Hold Tramadol HCl (Ultram) 50 mg Q6H PRN PO sevre pain Last administered on 13:51; Admin Dose 50 MG; Start 02/09/17 at 14:00 Guaifenesin/ Dextromethorphan (Robitussin Dm Liquid Cup) 10 ml Q4H PRN PO cough Last administered on 02/10/17 18:11; Admin Dose 10 ML; Start 02/09/17 at 14:30 Insulin Glargine (Lantus) 14 unit DAILY@08 SC Last administered on 02/12/17 08 :23; Admin Dose 14 UNIT; Start 02/11/17 at 08:00 Diagnostic Test (Pha) (Accu-Chek) 1 ea 02 XX Last administered on 02/11/17 02: 00; Admin Dose 1 EA; Start 02/11/17 at 02:00 Diagnostic Test (Pha) (Accu-Chek) XX Last administered on 02/11/17 02: 00; Admin Dose 1 EA; Start 02/11/17 at 02:00 Gabapentin (Neurontin) 300 mg TID PO Last administered on 02/12/17 14:07; Admin Dose 300 MG; Start 02/12/17 at 21:00 RHONDA PENA Feb 12, 2017 21:01
[2017-02-12] MEDS: ATORVASTATIN 40 MG TAB PO SCH (21:04)
[2017-02-12] MEDS: NPH, HUMAN INSULIN ISOPHANE 3ML VIAL SC SCH (21:17)
[2017-02-13] MEDS: ACCU-CHEK XX SCH ×3 (02:00→09:35)
[2017-02-13 02:08] VITALS: BP 106/56; RESP 18
[2017-02-13] MEDS: LEVOTHYROXINE 112 MCG TAB PO SCH (06:47)
[2017-02-13 07:51] VITALS: BP 107/57; RESP 18
[2017-02-13] MEDS: INSULIN ASPART [NOVOLOG] 3 ML PEN SC SCH ×2 (08:04→08:05)
[2017-02-13] MEDS: INSULIN GLARGINE [LANtus] 3 ML PEN SC SCH (08:06)
[2017-02-13] MEDS: ASPIRIN (EC) 81 MG TAB PO SCH (08:42)
[2017-02-13] MEDS: DULOXETINE 30 MG CAP DR PO SCH (08:42)
[2017-02-13] MEDS: GABAPENTIN 300 MG CAP PO SCH (08:42)
[2017-02-13] MEDS: DOCUSATE SODIUM 100 MG CAP PO SCH (08:42)
[2017-02-13] MEDS: METOPROLOL 25 MG TAB PO SCH (08:44)
[2017-02-13] MEDS: TICAGRELOR 90 MG TABLET PO SCH (09:00)
--- NOTE | 2017-02-13 11:48 | DS ---
Date/Time of Note Date/Time of Note DATE: 02/13/17 TIME: 11:46 Discharge Summary Admission/Discharge Info Admit Date/Time Feb 05, 2017 at 18:59 Discharge Date/Time Discharge Diagnosis 1.Toxic metabolic encephalopathy, resolved 2. Coronary artery disease and recent [id number] SC, status post CABG. 3.Pleural effusion status post thoracentesis. 4. COPD. 5. Improving dysphagia. 6. Neck mass. 7. Diabetes mellitus type 2. 8. Hypothyroidism. 9. Anemia. 10. Improvements in self-care, mobility and cognition. Patient Condition: Good Hospital Course Patient was admitted for comprehensive interdisciplinary acute rehabilitation. Patient made steady functional gains and improved from a min/mod level to a Supervised level for self care and mobility, including ambulating with the use of a front wheeled walker. Patient is being discharged home with recommendations for home health PT ,OT and RN follow up. DME recommendations: FWW; BSC; Shower Chair Patient will follow up with PMD upon DC. Home Meds Active Scripts Insulin Aspart* (Novolog Insulin Pen*) 100 Unit/Ml Soln, 5 UNIT SC WITH MEALS for 30 Days, #1 VIAL Prov:ROBEL PETTY MD 02/05/17 Insulin Glargine* (Lantus*) 100 Unit/Ml Soln, 13 UNIT SC DAILY@08 for 30 Days, # 1 VIAL Prov:ROBEL PETTY MD 02/05/17 Levothyroxine Sodium* (Levothyroxine Sodium*) 112 Mcg Tablet, 112 MCG PO DAILY@ 06 for 30 Days, #30 TAB Prov:ROBEL PETTY MD 02/05/17 Furosemide (Lasix) 40 Mg Tab, 40 MG PO DAILY for 30 Days, #30 TAB Prov:ROBEL PETTY MD 02/05/17 Atorvastatin* (Atorvastatin*) 40 Mg Tablet, 40 MG PO HS for 30 Days, #30 TAB Prov:ROBEL PETTY MD 02/05/17 Metoprolol Tartrate* (Lopressor*) 25 Mg Tab, 12.5 MG PO BID for 30 Days, TAB Prov:TAD POPE 08/29/16 Aspirin* (Aspirin* EC) 81 Mg Tabec, 81 MG PO DAILY for 30 Days, #30 Prov:TAD POPE 08/29/16 Ticagrelor* (Brilinta*) 90 Mg Tablet, 90 MG PO BID for 30 Days, #60 Prov:TAD POPE 08/29/16 Duloxetine Hcl* (Duloxetine Hcl*) 20 Mg Capsule.dr, 20 MG PO DAILY for 30 Days, CAP Prov:ENOC POPEA 08/29/16 Gabapentin* (Gabapentin*) 300 Mg Capsule, 300 MG PO TID for 30 Days, CAP Prov:ENOC POPEA 08/29/16 Reported Medications Alendronate Sodium* (Fosamax*) 70 Mg Tablet, 70 MG PO Q7D, #4 TAB 08/19/16 Primary Care Provider [facility] Pending Labs Laboratory Tests Test 02/12/17 12:07 02/12/17 14:04 02/12/17 17:22 02/12/17 17:39 Bedside Glucose 286mg/dL (70-220) 143mg/dL (70-220) 53mg/dL (70-220) 55mg/dL (70-220) Test 02/12/17 18:09 02/12/17 21:02 02/13/17 07:56 Bedside Glucose 135mg/dL (70-220) 91mg/dL (70-220) 206mg/dL (70-220) JORGE MESSINA MD Feb 13, 2017 11:48
== END 2017-02-13 11:30 | disposition home health service (06) | DRG 91 ==
LOC: VRC 18:59
PROVIDERS: ADMIT Physical Medicine & Rehabilitation; ATTEND Internal Medicine Pulmonary Disease
DX: G92 Toxic encephalopathy (principal); I21.4 Non-ST elevation (NSTEMI) myocardial infarction; I95.9 Hypotension, unspecified; I50.20 Unspecified systolic (congestive) heart failure; E10.42 Type 1 diabetes mellitus with diabetic polyneuropathy; R13.10 Dysphagia, unspecified; E03.9 Hypothyroidism, unspecified; Z79.4 Long term (current) use of insulin; Z95.5 Presence of coronary angioplasty implant and graft; D64.9 Anemia, unspecified; J44.9 Chronic obstructive pulmonary disease, unspecified; R22.1 Localized swelling, mass and lump, neck; I65.29 Occlusion and stenosis of unspecified carotid artery; F06.31 Mood disorder due to known physiological condition with depressive features
CPT/HCPCS: 71010; 80048; 80053; 81003; 82947; 82962; 85025; 87081; 87086; 92507; 92523; 92526; 92610; 97110; 97112; 97116; 97150; 97163; 97167; 97530; 97535; J1170; J1815

== ENCOUNTER 2017-04-17 10:06 | Inpatient (IN) | payer OTHER ==
[~2017-04-17] VITALS: Ht 154.9 cm; Wt 56.4 kg
[~2017-04-17 10:06] MED LIST changes: -ATOR20TA38 PO; +ATOR40TA68 PO; +FURO40TA4 PO; -ISOS10TA2 PO; +LEVO112T57 PO
[2017-04-17] MEDS ORDERED: NITROGLYCERIN 2% 1 GM OINT PKT TD STA (10:31)
[2017-04-17] MEDS ORDERED: ASPIRIN 81 MG TAB PO STA (10:31)
[2017-04-17] MEDS ORDERED: LANT3I SC (10:37)
[2017-04-17] MEDS ORDERED: INSU200I SQ (10:38)
[2017-04-17] MEDS ORDERED: FURO-110 PO (10:40)
[2017-04-17] MEDS ORDERED: METO-448 PO (10:40)
--- NOTE | 2017-04-17 10:58 | RADRPT ---
PROCEDURE: XR Chest. CLINICAL INDICATION: Chest Pain. TECHNIQUE: Single portable view of the chest was obtained COMPARISON: 01/26/2017. FINDINGS: The heart is enlarged. Median sternotomy and post t CABG changes are present. There is interval elev ation of the left hemidiaphragm with associated left lower lobe compressive atelectasis. Underlying left-sided pleural effusion is suspected. There is interval resolved pulmonary vascular congestive c hanges and right base atelectasis. No evidence of a pneumothorax. IMPRESSION: 1. Interval elevation of the left hemidiaphragm with left lower lobe compressive atelectasis and hamilton pected underlying pleural effusion. 2. Resolved pulmonary vascular congestion and decreased right base atelectasis . RPTAT: HRSR Physician Meme Date Time Electronically viewed and signed by Physician Meme on 04/17/2017 10:58 RR/
[2017-04-17] MEDS ORDERED: NITROGLYCERIN (SL) 0.4 MG TAB SL PRN ×2 (11:00→13:00)
[2017-04-17 11:24] LABS: BASOPHIL # 0.1 10^3/ul (0.0-0.1); BASOPHILS % 0.6 % (0.0-2.0); EOSINOPHILS # 0.5 10^3/ul (0.0-0.5); EOSINOPHILS % 6.5 % (0.0-7.0); HEMATOCRIT 41.6 % (37.0-47.0); HEMOGLOBIN 13.6 g/dl (12.0-16.0); LYMPHOCYTES # 1.3 10^3/ul (0.8-2.9); LYMPHOCYTES % 17.3 % (15.0-51.0); MEAN CORPUSCULAR HEMOGLOBIN 29.5 pg (29.0-33.0); MEAN CORPUSCULAR HGB CONC 32.7 g/dl (32.0-37.0); MEAN CORPUSCULAR VOLUME 90.2 fl (82.0-101.0); MEAN PLATELET VOLUME 9.3 fl (7.4-10.4); MONOCYTE # 0.5 10^3/ul (0.3-0.9); MONOCYTES % 6.3 % (0.0-11.0); NEUTROPHIL # 5.4 10^3/ul (1.6-7.5); PLATELET COUNT 330 10^3/UL (140-415); RED BLOOD COUNT 4.61 10^6/ul (4.20-5.40); RED CELL DISTRIBUTION WIDTH 12.8 % (11.5-14.5); WHITE BLOOD COUNT 7.8 10^3/ul (4.8-10.8)
[2017-04-17 11:48] LABS: ANION GAP 17 (8-16); BLOOD UREA NITROGEN 18 mg/dl (7-20); CALCIUM 9.2 mg/dl (8.4-10.2); CARBON DIOXIDE 28 mmol/L (21-31); CHLORIDE 100 mmol/L (97-110); CREATININE 0.63 mg/dl (0.44-1.00); GLUCOSE 243 mg/dl (70-220); POTASSIUM 4.3 mmol/L (3.5-5.1); SODIUM 141 mmol/L (135-144)
[2017-04-17 12:10] LABS: TROPONIN-I < 0.012 ng/ml (0.00-0.12)
[2017-04-17] MEDS ORDERED: ACETAMINOPHEN 325 MG TAB PO PRN (12:30)
[2017-04-17] MEDS ORDERED: ONDANSETRON 4 MG INJ IV PRN ×2 (12:30→13:00)
[2017-04-17] MEDS ORDERED: NACL 0.9% 3 ML SYG IV SCH (13:00)
[2017-04-17] MEDS ORDERED: ACETAMINOPHEN 650 MG SUPP PR PRN (13:00)
[2017-04-17] MEDS ORDERED: DOCUSATE SODIUM 100 MG CAP PO PRN (13:00)
[2017-04-17] MEDS ORDERED: morphine 2 MG INJ ONE (13:08)
--- NOTE | 2017-04-17 13:38 | ERD ---
ER Documentation Chief Complaint Chief Complaint SOB/COUGH/CHEST PAIN X 1 WEEK HPI Patient is a 56-year-old female with coronary disease and diabetes who presents with shortness of breath. She had a CABG done on February 27. She fell night and hit her left knee. She has a cough and chest pain. Her chest pain started after the fall. She has no fevers. She took 81 mg of aspirin this morning. Upon review of old medical records the patient has multiple visits to the ER. ROS All systems reviewed and are negative except as per history of present illness. Medications Home Meds Active Scripts Levothyroxine Sodium* (Levothyroxine Sodium*) 112 Mcg Tablet, 112 MCG PO DAILY@ 06 for 30 Days, #30 TAB Prov:ROBEL PETTY MD 02/05/17 Aspirin* (Aspirin* EC) 81 Mg Tabec, 81 MG PO DAILY for 30 Days, #30 Prov:TAD POPE 08/29/16 Ticagrelor* (Brilinta*) 90 Mg Tablet, 90 MG PO BID for 30 Days, #60 Prov:TAD POPE 08/29/16 Gabapentin* (Gabapentin*) 300 Mg Capsule, 300 MG PO TID for 30 Days, CAP Prov:TAD POPE 08/29/16 Reported Medications Metoprolol Tartrate* (Lopressor*) 25 Mg Tab, 25 MG PO BID, #60 TAB 04/17/17 Furosemide* (Lasix*) 20 Mg Tablet, 20 MG PO DAILY, TAB 04/17/17 Insulin Lispro (Humalog Kwikpen) 200 Unit/1 Ml Insuln.pen, 0 SQ AC MEALS, EA SLIDING SCALE 04/17/17 Insulin Glargine* (Lantus*) 100 Unit/Ml Soln, 25 UNIT SC QHS, #1 VIAL 04/17/17 Alendronate Sodium* (Fosamax*) 70 Mg Tablet, 70 MG PO Q7D, #4 TAB 08/19/16 Discontinued Scripts Insulin Aspart* (Novolog Insulin Pen*) 100 Unit/Ml Soln, 5 UNIT SC WITH MEALS for 30 Days, #1 VIAL Prov:ROBEL PETTY MD 02/05/17 Insulin Glargine* (Lantus*) 100 Unit/Ml Soln, 13 UNIT SC DAILY@08 for 30 Days, # 1 VIAL Prov:ROBEL PETTY MD 02/05/17 Furosemide (Lasix) 40 Mg Tab, 40 MG PO DAILY for 30 Days, #30 TAB Prov:ROBEL PETTY MD 02/05/17 Atorvastatin* (Atorvastatin*) 40 Mg Tablet, 40 MG PO HS for 30 Days, #30 TAB Prov:ROBEL PETTY MD 02/05/17 Metoprolol Tartrate* (Lopressor*) 25 Mg Tab, 12.5 MG PO BID for 30 Days, TAB Prov:TAD POPE 08/29/16 Duloxetine Hcl* (Duloxetine Hcl*) 20 Mg Capsule.dr, 20 MG PO DAILY for 30 Days, CAP Prov:TAD POPE 08/29/16 Allergies Allergies: Coded Allergies: ibuprofen (Verified Allergy, Mild, VOMITING,DIZZINESS, 04/17/17) Fish Containing Products (Verified Allergy, Unknown, 04/17/17) PMhx/Soc History of Surgery: Yes (, tonsillectomy) Anesthesia Reaction: No Hx 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 Disorder: No Hx Respiratory Disorders: Yes (COPD) Hx Cardiac Disorders: Yes (CARDIAC STENTS X 3, CABG 01/27/17, A-FIB, CHF) Hx Psychiatric Problems: No Hx Miscellaneous Medical Probl: Yes (DM 2, CAD, [place], neck mass, chronic bronchitis,resp. failure) Hx Alcohol Use: No Hx Substance Use: No Hx Tobacco Use: Yes (QUIT SINCE NOVEMBER 2016) Smoking Status: Former smoker FmHx Family History: No coronary disease Physical Exam Vitals Vital Signs Date Time Temp Pulse Resp B/P Pulse Ox O2 Delivery O2 Flow Rate FiO2 04/17/17 13:03 76 18 110/53 99 Room Air 04/17/17 12:34 77 18 104/47 99 Room Air 04/17/17 11:07 75 18 95/60 99 Room Air 04/17/17 10:09 98.0 77 18 129/71 99 Physical Exam Const: Mild distress Head: Atraumatic Eyes: Normal Conjunctiva ENT: Normal External Ears, Nose and Mouth. Neck: Full range of motion..~ No meningismus. Resp: Clear to auscultation bilaterally Cardio: Regular rate and rhythm, no murmurs Abd: Soft, non tender, non distended. Normal bowel sounds Skin: No petechiae or rashes Back: No midline or flank tenderness Ext: No cyanosis, or edema Neur: Awake and alert Psych: Normal Mood and Affect Result Diagram: 04/17/17 1104 04/17/17 1104 Results 24 hrs Laboratory Tests Test 04/17/17 11:04 White Blood Count 7.810^3/ul Red Blood Count 4.6110^6/ul Hemoglobin 13.6g/dl Hematocrit 41.6% Mean Corpuscular Volume 90.2fl Mean Corpuscular Hemoglobin 29.5pg Mean Corpuscular Hemoglobin Concent 32.7g/dl Red Cell Distribution Width 12.8% Platelet Count 79269^3/UL Mean Platelet Volume 9.3fl Neutrophils % 69.0% Lymphocytes % 17.3% Monocytes % 6.3% Eosinophils % 6.5% Basophils % 0.6% Nucleated Red Blood Cells % 0.0/100WBC Neutrophils # 5.410^3/ul Lymphocytes # 1.310^3/ul Monocytes # 0.510^3/ul Eosinophils # 0.510^3/ul Basophils # 0.110^3/ul Nucleated Red Blood Cells # 0.010^3/ul Sodium Level 141mmol/L Potassium Level 4.3mmol/L Chloride Level 100mmol/L Carbon Dioxide Level 28mmol/L Anion Gap 17 Blood Urea Nitrogen 18mg/dl Creatinine 0.63mg/dl Glucose Level 243mg/dl Calcium Level 9.2mg/dl Troponin I < 0.012ng/ml Current Medications Medications (Trade) Dose Ordered Sig/Mo Route PRN Reason Start Time Stop Time Status Last Admin Dose Admin Aspirin (Aspirin) 162 mg ONCE STAT PO 04/17/17 10:31 04/17/17 10:32 DC 04/17/17 10:55 Nitroglycerin (Nitroglycerin 2% Oint) 1 inch ONCE STAT TD 04/17/17 10:31 04/17/17 10:32 DC 04/17/17 10:56 Nitroglycerin (Nitroglycerin (Sl Tab) 0.4 Mg) 1 tab Q5M UP TO 3 DOSES PRN SL CHEST PAIN 04/17/17 11:00 04/17/17 10:56 Ondansetron HCl (Zofran Inj) 4 mg ER BRIDGE PRN IV NAUSEA AND/OR VOMITING 04/17/17 12:30 04/18/17 12:29 Acetaminophen (Tylenol Tab) 650 mg ER BRIDGE PRN PO MILD PAIN/FEVER 04/17/17 12:30 04/18/17 12:29 Aspirin (Aspirin) 81 mg DAILY PO 04/19/17 09:00 UNV Nitroglycerin (Nitroglycerin (Sl Tab) 0.4 Mg) 1 tab Q5M PRN SL CHEST PAIN 04/17/17 13:00 UNV Morphine Sulfate (morphine) 2 mg Q2H PRN IV PAIN LEVEL 4-6 04/17/17 13:00 UNV IV Flush (NS 3 ml) 3 ml PER PROTOCOL IV 04/17/17 13:00 UNV Ondansetron HCl (Zofran Inj) 4 mg Q6H PRN IV NAUSEA AND/OR VOMITING 04/17/17 13:00 UNV Acetaminophen (Tylenol Tab) 650 mg Q6H PRN PO PAIN LEVEL 1-3 OR FEVER 04/17/17 13:00 UNV Acetaminophen (Tylenol Supp) 650 mg Q6H PRN MS PAIN LEVEL 1-3 OR FEVER 04/17/17 13:00 UNV Docusate Sodium (Colace) 100 mg Q12H PRN PO CONSTIPATION 04/17/17 13:00 UNV Miscellaneous Information (* Miscellaneous Pharmacy Order) Discontinue current oral sulfonylur... ONCE ONCE XX 04/17/17 13:00 04/17/17 13:01 UNV Diagnostic Test (Pha) (Accu-Chek) 1 ea 02 XX 04/18/17 02:00 UNV Miscellaneous Information (* Miscellaneous Pharmacy Order) HYPOGLYCEMIA PROTOCOL w... ONCE ONCE XX 04/17/17 13:00 04/17/17 13:01 UNV Insulin Aspart (Novolog Insulin Pen) NOVOLOG *MILD* ALGORITHM WITH MEALS BEDTIME SC 04/17/17 18:00 UNV Miscellaneous Information (* Miscellaneous Pharmacy Order) Discontinue all previ... ONCE ONCE XX 04/17/17 13:00 04/17/17 13:01 UNV Alendronate Sodium (Fosamax) 70 mg Q7D PO 04/17/17 13:00 UNV Furosemide (Lasix) 20 mg DAILY PO 04/18/17 09:00 UNV Gabapentin (Neurontin) 300 mg TID PO 04/17/17 13:00 UNV Insulin Glargine (Lantus) 25 unit QHS SC 04/17/17 21:00 UNV Levothyroxine Sodium (Synthroid) 112 mcg DAILY@06 PO 04/18/17 06:00 UNV Metoprolol Tartrate (Lopressor) 25 mg BID PO 04/17/17 21:00 UNV Ticagrelor (Brilinta) 90 mg BID PO 04/17/17 21:00 UNV Morphine Sulfate (morphine) 2 mg STK-MED ONCE .ROUTE 04/17/17 13:08 04/17/17 13:09 DC Procedures/MDM EKG #1 read by me: Rate/Rhythm: Regular rate and rhythm at a normal rate Intervals: Normal Impression: No evidence of ischemia or arrhythmia EKG #2 read by me: Rate/Rhythm: Regular rate and rhythm at a normal rate Intervals: Normal Impression: No evidence of ischemia or arrhythmia Chest x-ray negative per radiology. Patient is a 56-year-old female with cardiac risk factors who presents with chest pain and shortness of breath. I am concerned for possible acute coronary syndrome. The patient will be admitted to the care of the panel team. She was given aspirin and nitroglycerin. At this point I doubt pneumonia, pneumothorax , pulmonary embolism, or aortic dissection. She will be admitted to a telemetry bed under the panel team. Departure Diagnosis: Primary Impression: Chest pain Chest pain type: unspecified Qualified Code: R07.9 - Chest pain, unspecified type Condition: JOHN PAUL Claudio MD Apr 17, 2017 13:38
[2017-04-17] MEDS ORDERED: GLUCOSE GEL 15 GRAM TUBE PO PRN ×2 (14:00)
[2017-04-17] MEDS ORDERED: DEXTROSE 50% 50 ML SYRINGE IV PRN (14:00)
[2017-04-17] MEDS ORDERED: GLUCAGON 1 MG INJ IM PRN (14:00)
[2017-04-17] MEDS ORDERED: GLUCOSE GEL 15 GRAM TUBE BUCCAL PRN (14:00)
[2017-04-17 14:27] VITALS: BP 126/61; PULSE 83; RESP 20
--- NOTE | 2017-04-17 14:30 | HP ---
Date/Time of Note Date/Time of Note DATE: 04/17/17 TIME: 14:20 Assessment/Plan VTE Prophylaxis VTE Prophylaxis Intervention: SCD's Lines/Catheters IV Catheter Type (from Nrsg): Peripheral IV Assessment/Plan Chief Complaint/Hosp Course 56-year-old female with a past medical history coronary artery disease, status post CABG in January 2017, presented to the emergency room with complaints of nonproductive cough and chest pain 3 day duration. 1.Chest Pain, reproducible-most likely costochondritis . Acute coronary syndrome remains in differential but is less likely given the normal cardiac enzymes and the nature of the EKG changes. PE is very unlikely given the normal oxygenation and complete lack of risk factors. Dissection is unlikely as the patient has no history of uncontrolled HTN and symmetric blood pressures. If w/u for above life threatening causes negative will further expand differential to include GI, infectious, musculoskeltal and other causes of chest pain. Plan: Serial EKG Stat ECHO if not done within 6 mos Follow cardiac enzymes Morphine for pain control Continue ASA, NTG SL PRN, O2 if indicated Consider cardiology consult depending on above workup Get lipid profile,A1C and TSH levels in am. 2. Nonproductive cough times 3 day duration, possibly viral URI -We will treat with as needed cough suppressants and bronchodilators. At this time, there is no need for antibiotic. 3. Mechanical fall with left knee pain. -Obtain any x-ray to rule out any possible fractures. Patient will be provided with adequate analgesia. 4. Coronary artery disease and recent [id number] NM, status post CABG. -Continue home medications. 5. Hyperglycemia with DMII. -Accu-Cheks/ISS/Lantus. Follow-up A1c. 6. History of pleural effusion status post thoracentesis. -Chest x-ray with stable appearance of effusion. Will monitor. 7. COPD. Stable. Noted exacerbation. 8. Neck mass/dysphagia, chronic -Mechanical soft diet. -Patient to follow-up with ENT. 9. Hypothyroidism. -Resume Synthroid Rest of the management depend on clinical course. Proximally 60 will respond on this history and physical. Patient was seen in collaboration with . Problems: HPI/ROS Admit Date/Time Admit Date/Time Hx of Present Illness This is a 56-year-old female with a past medical history of coronary artery disease, status post CABG 01/27/2017, toxic metabolic encephalopathy, atrial fibrillation, CHF, pleural effusion with a history of thoracentesis, type 2 diabetes, neck mass, chronic bronchitis, respiratory failure, COPD, hypothyroidism, chronic anemia, who presented to the emergency room with complaints of nonproductive cough for a week duration followed by chest pain started on Thursday. Her pain is mostly substernal and reproducible. Patient denied any palpitation or shortness of breath. Apparently, patient also reported a fall episode on her left knee on Thursday. Patient denied any loss of consciousness, dizziness, headache, vision changes, speech difficulties, shortness of breath, nausea, vomiting, abdominal pain, numbness/tingling or other constitutional symptoms. She reported left knee pain. In the emergency room, initial labs within acceptable range except for elevated blood glucose 243. Initial troponin negative. EKG without any acute ST or T- wave changes. Vital signs within acceptable range. A chest x-ray with some pleural effusion which remained stable without any significant changes from prior study . There was improved appearance of pulmonary vascular congestion from prior study. Patient was admitted to rule out acute coronary syndrome. ROS A 12 point review of system was assessed and is negative other than what is mentioned in HPI. PMH/Family/Social Past Medical History See HPI Past Surgical History See HPI Past Surgical Hx: other Social History Former smoker. Otherwise no alcohol or illicit drug abuse history. Smoking Status: Former smoker Exam/Review of Systems Vital Signs Vitals Vital Signs Date Time Temp Pulse Resp B/P Pulse Ox O2 Delivery O2 Flow Rate FiO2 04/17/17 12:34 77 18 104/47 99 Room Air 04/17/17 10:09 98.0 Exam Exam General: Chronically ill looking female, who appears older than her actual age, not in any acute distress . HEENT: Normocephalic, Atraumatic, No laceration or hematoma; Eyes: PEERL, Conjunctiva clear, Anicteric sclera Neck: Supple without any lymphadenopathy, nontender, no JVD, no carotid bruits, trachea midline, no thyromegaly Cardiac: S1, S2 auscultated, regular rhythm and rate, no mumurs or gallop Pulmonary: With nonproductive cough. Normal respiratory effort. Chest clear to auscultation bilaterally, no adventitious breath sounds GI: Abdomen normal to inspection. Soft, non tender, non- distended, no masses, no rebound tenderness or guarding. Bowel sounds active on all four quadrants Genitourinary: Deferred Extremities: Pain with right knee movement. No cyanosis, clubbing, or edema. Pulses [2+] bilaterally. Full ROM on all four extremities. No focal weakness appreciated. Neurologic: Alert to person, place, time, and situation. Affect appropriate, intact sensation. Skin: Clean,dry, and intact. No ecchymosis, no rashes, or lesions Labs Result Diagram: 04/17/17 1104 04/17/17 1104 TAD HIGGINS NP Apr 17, 2017 14:30
[2017-04-17 15:32] VITALS: Ht 154.9 cm; Wt 56.4 kg
[2017-04-17 16:04] VITALS: PULSE 84
[2017-04-17 16:29] VITALS: BP 90/55; RESP 17
[2017-04-17] MEDS: morphine 2 MG INJ IV PRN ×2 (16:49→23:32)
[2017-04-17] MEDS: GABAPENTIN 300 MG CAP PO SCH ×2 (16:49→20:31)
[2017-04-17 16:59] LABS: CREATINE KINASE 35 IU/L (23-200)
[2017-04-17 17:13] LABS: CK-MB 1.24 ng/ml (0.0-2.4)
[2017-04-17] MEDS: ALBUTEROL/IPRATROPIUM (NEB) 3 ML AMP HHN SCH ×2 (17:17→20:19)
[2017-04-17 17:20] LABS: TROPONIN-I < 0.012 ng/ml (0.00-0.12)
--- NOTE | 2017-04-17 17:25 | RADRPT ---
PROCEDURE: XR Knee 2 Views. CLINICAL INDICATION: Left knee pain and trauma. TECHNIQUE: AP and lateral view of the left knee were obtained. The images reviewed on a PACS work station. COMPARISON: None. FINDINGS: The osseous structures are intact. No destructive bony lesions are observed. Interosseous spaces a re normal. Surgical clips are seen in the posterior medial soft tissues over the knee. Vascular alejandra cifications are seen posterior to the knee. IMPRESSION: No visualized traumatic injury. Vascular calcifications. If there is high clinical suspicion for traumatic injury, further evaluation with CT should be consi dered. RPTAT: AA .Vineet Pérez MD, MD Date Time Electronically viewed and signed by .Vineet Pérez MD, MD on 04/17/2017 17:25 .P/
[2017-04-17] MEDS: INSULIN ASPART [NOVOLOG] 3 ML PEN SC SCH ×2 (17:52→20:36)
[2017-04-17 20:00] VITALS: BP 105/53; RESP 19
[2017-04-17 20:14] VITALS: PULSE 80
[2017-04-17] MEDS: BENZONATATE 100 MG CAP PO SCH (20:31)
[2017-04-17] MEDS: METOPROLOL 25 MG TAB PO SCH (20:32)
[2017-04-17] MEDS: TICAGRELOR 90 MG TABLET PO SCH (20:33)
[2017-04-17] MEDS ORDERED: INSULIN GLARGINE [LANtus] 3 ML PEN SC SCH (21:00)
[2017-04-17 23:00] LABS: CREATINE KINASE 28 IU/L (23-200)
[2017-04-17 23:14] LABS: CK-MB 1.25 ng/ml (0.0-2.4)
[2017-04-17 23:20] LABS: TROPONIN-I < 0.012 ng/ml (0.00-0.12)
[2017-04-17 23:53] VITALS: BP 96/52; RESP 18
[2017-04-18] VITALS (11 sets, daily range): BP systolic 93–145; BP diastolic 47–101; PULSE 66–95; RESP 18–20
[2017-04-18] MEDS: ALBUTEROL/IPRATROPIUM (NEB) 3 ML AMP HHN SCH ×6 (01:00→20:00)
[2017-04-18] MEDS: ACCU-CHEK XX SCH (02:32)
--- NOTE | 2017-04-18 03:21 | CONS ---
DATE OF ADMISSION: 04/17/2017 DATE OF CONSULTATION: 04/17/2017 CONSULTATION REASON FOR CONSULTATION: Chest pain, assess for acute coronary syndrome, as well as shortness of br eath, assess for congestive heart failure. REQUESTING PHYSICIAN: Dr. De La Cruz from the hospitalist service and Amanda Lanier. HISTORY OF PRESENT ILLNESS: Ms. Castaneda is a 56-year-old female with a history of coronary artery d isease, status post coronary artery bypass graft surgery 01/26/2017 receiving a DEE to LAD, sapheno us vein graft to obtuse marginal, COPD, recently quit smoking, carotid stenosis, diabetes mellitus, moderate cardiomyopathy, last known ejection fraction approximately 40%, who presents status post me chanical fall from the couch hitting her knee and then thereafter stating that she has been having a stabbing substernal chest pain. Upon arrival in the emergency department, temperature 98, blood pr essure 129/71, pulse 77, respiratory rate 18, saturating 99%. LABORATORY DATA: White blood cell count 7.8, hemoglobin 13.6, platelet count of 330. Sodium 141, p otassium 4.3, creatinine 0.6, BUN 18. Troponin negative. The patient underwent a chest x-ray revea ling antral elevation of left hemidiaphragm with left lower lobe compressive atelectasis, possible u nderlying pleural effusion, but resolved pulmonary vascular congestion. The patient's electrocardio gram revealed normal sinus rhythm at 75, normal axis, anteroseptal Q's, nonspecific ST-T abnormaliti es diffusely. Patient subsequently admitted to the floor and since admit to floor, continues to hav e stabbing substernal chest pain. PAST MEDICAL HISTORY: As above in HPI. MEDICATIONS CURRENTLY IN HOSPITAL As above in HPI, with additionally patient having a history of ab nts to the right coronary artery. MEDICATIONS CURRENTLY IN HOSPITAL: 1. Fosamax 70 mg q. week. 2. Aspirin 81 mg daily. 3. Lasix 20 mg daily. 4. Synthroid ____ mcg daily. 5. Lantus 25 units subQ at bedtime. 6. Metoprolol 25 mg p.o. b.i.d. 7. Brilinta 90 mg b.i.d. 8. Tessalon 100 mg p.o. t.i.d. 9. DuoNeb p.r.n. 10. Sublingual nitroglycerin p.r.n. 11. Zofran p.r.n. 12. Tylenol p.r.n. 13. Colace. 14. Gabapentin 300 mg p.o. t.i.d. ALLERGIES: IBUPROFEN. SOCIAL HISTORY: Prior tobacco. No ETOH or illicit drug use. FAMILY HISTORY: Negative for sudden cardiac or early CAD. REVIEW OF SYSTEMS: As above in HPI. CONSTITUTIONAL: No fevers, chills. PULMONARY: Shortness of breath. CARDIOVASCULAR: Chest pain, stabbing, history of CABG. GASTROINTESTINAL: No vomiting. GENITOURINARY: No hematuria. MUSCULOSKELETAL: Degenerative joint disease. PSYCHIATRIC: Patient denies depression. NEUROLOGIC: No documented history of CVA. PHYSICAL EXAMINATION VITAL SIGNS: Temperature 97.4, blood pressure 126/61, pulse 82, respiratory rate 20, saturating 96% . GENERAL: The patient is alert, awake, complaining of intermittent stabbing chest pain. NECK: JVP approximately 8 to 9 cm water. CHEST: Fair air movement throughout. HEART: Regular rate and rhythm. Normal S1, S2, I/ systolic murmur. ABDOMEN: Positive bowel sounds, soft. EXTREMITIES: No pitting edema, 1+ pulses bilaterally at the posterior tibial, dorsalis pedis. LABORATORY DATA: As above in HPI. No further labs for my review at this time. IMAGING STUDIES: As above in HPI. No further imaging studies for my review at this time. ELECTROCARDIOGRAM: As above in HPI. No further electrocardiograms for my review at this time. IMPRESSION: 1. Chest pain, somewhat atypical at this time for cardiac etiology, but in a patient with a history of recent CABG. Rule out acute coronary syndrome. Negative troponin x1. 2. History of cardiomyopathy with mild decreased left ventricular ejection fraction by most recent echo. 3. Congestive heart failure by chest x-ray. Possible systolic, acute on chronic. 4. Hypertension, under reasonable control. 5. History of PTCA and stent placement prior to CABG to right coronary artery. 6. History of coronary artery disease, status post coronary artery bypass graft surgery ____ DEE t o LAD and saphenous vein graft to obtuse marginal, January of 2017. 7. Hypothyroidism. RECOMMENDATIONS: 1. At this time, would maintain the patient on telemetry monitoring to follow rhythm and rate contr ol closely. 2. We will continue to check serial EKGs to assess for any significant ongoing changes. EKG in the morning, EKG for complaints of chest pain or change in rhythm. 3. Continue the patient's aspirin for prophylaxis against cardiovascular events. 4. Continue the patient's current beta enmanuel to control heart rate and blood pressure. 5. Continue the patient's dual antiplatelet therapy with aspirin and Brilinta for stent patency and prevention of further cardiovascular events. 6. Continue the patient's gentle Lasix diuresis, possible need to increase to b.i.d. dosing followe d by watching it closely. 7. Can give the patient sublingual nitroglycerin for any recurrent chest pain. 8. Complete a rule out for myocardial infarction to ensure this patient's chest pain is not due to an acute coronary syndrome, acute myocardial infarction, and will reassess patient's ejection fracti on with a 2D echo. Thank you for allowing me to take part in the care of this patient. I will continue to follow along very closely with you. Further recommendations will be made as the patient progresses through [facility] clinical course. Dictated By: RHONDA EMERSON/MORIS Conf#: [id number] DID#: [id number] CC: TARA DE LA CRUZ MD;*End*
[2017-04-18] MEDS: LEVOTHYROXINE 112 MCG TAB PO SCH (05:40)
[2017-04-18 06:54] LABS: BASOPHIL # 0.1 10^3/ul (0.0-0.1); BASOPHILS % 1.3 % (0.0-2.0); EOSINOPHILS # 0.5 10^3/ul (0.0-0.5); EOSINOPHILS % 7.6 % (0.0-7.0); HEMATOCRIT 40.9 % (37.0-47.0); HEMOGLOBIN 13.2 g/dl (12.0-16.0); LYMPHOCYTES # 1.7 10^3/ul (0.8-2.9); LYMPHOCYTES % 27.1 % (15.0-51.0); MEAN CORPUSCULAR HEMOGLOBIN 29.5 pg (29.0-33.0); MEAN CORPUSCULAR HGB CONC 32.3 g/dl (32.0-37.0); MEAN CORPUSCULAR VOLUME 91.5 fl (82.0-101.0); MEAN PLATELET VOLUME 9.6 fl (7.4-10.4); MONOCYTE # 0.5 10^3/ul (0.3-0.9); MONOCYTES % 8.5 % (0.0-11.0); NEUTROPHIL # 3.4 10^3/ul (1.6-7.5); NEUTROPHILS % 55.2 % (39.0-77.0); PLATELET COUNT 327 10^3/UL (140-415); RED BLOOD COUNT 4.47 10^6/ul (4.20-5.40); RED CELL DISTRIBUTION WIDTH 12.9 % (11.5-14.5); WHITE BLOOD COUNT 6.2 10^3/ul (4.8-10.8)
[2017-04-18] MEDS: DEXTROSE 50% 50 ML SYRINGE IV PRN (07:43)
[2017-04-18 07:44] LABS: ALBUMIN 3.9 g/dl (3.3-4.9); ALBUMIN/GLOBULIN RATIO 1.39; BILIRUBIN,INDIRECT 0.9 mg/dl (0-1.1); BILIRUBIN,TOTAL 0.9 mg/dl (0.2-1.3); CALCIUM 9.2 mg/dl (8.4-10.2); CHOL/HDL RATIO 3.6 RATIO; CREATININE 0.71 mg/dl (0.44-1.00); MAGNESIUM 1.9 mg/dl (1.7-2.5); PHOSPHORUS 5.8 mg/dl (2.5-4.9); POTASSIUM 4.2 mmol/L (3.5-5.1); TOTAL PROTEIN 6.7 g/dl (6.1-8.1)
[2017-04-18] MEDS: INSULIN ASPART [NOVOLOG] 3 ML PEN SC SCH ×4 (07:45→20:47)
[2017-04-18] MEDS: METOPROLOL 25 MG TAB PO SCH ×2 (07:48→20:42)
[2017-04-18] MEDS: GABAPENTIN 300 MG CAP PO SCH ×2 (07:52→20:40)
[2017-04-18] MEDS: BENZONATATE 100 MG CAP PO SCH ×3 (07:52→20:41)
[2017-04-18] MEDS: TICAGRELOR 90 MG TABLET PO SCH ×2 (07:53→20:46)
[2017-04-18 08:10] LABS: THYROID STIMULATING HORMONE 7.17 MIU/L (0.465-4.680)
[2017-04-18] MEDS ORDERED: FUROSEMIDE 20 MG TAB PO SCH (09:00)
--- NOTE | 2017-04-18 13:22 | PN ---
Date/Time of Note Date/Time of Note DATE: 04/18/17 TIME: 13:19 Assessment/Plan VTE Prophylaxis VTE Prophylaxis Intervention: SCD's Lines/Catheters IV Catheter Type (from [facility]): Peripheral IV Urinary Cath still in place: No Assessment/Plan Chief Complaint/Hosp Course 1. Chest pain. To rule out acute coronary syndrome. Troponins negative so far. The patient has prior history of CAD. The patient will be continued on dual antiplatelet therapy. 2. Status post mechanical fall with left knee pain. X-ray negative for any acute findings. Continue pain control. 3. CAD. Status post CABG with DEE to LAD and saphenous vein graft to obtuse marginal in January 2017. Continue cardiac medications. Cardiology following. 4. Nonproductive cough. Continue Tessalon. 5. Neck mass with dysphagia. Patient currently tolerating a regular consistency diet. Outpatient ENT follow-up. 6. Hypothyroidism. Continue Synthroid. 7. Type 1 diabetes mellitus. Fluctuating blood sugars. Continue sliding scale insulin along with pre-meal insulin and basal insulin. Hemoglobin A1c 8.3. 8. Osteoporosis. On bisphosphonates. 9. Ischemic cardiomyopathy with ejection fraction of 40-45% as per 2D echocardiogram done in January 2017. Continue beta-blockers. 10. COPD. No evidence of exacerbation. Continue inhaled bronchodilators. 11. Dyslipidemia. Continue statins. 12. Fluids, electrolytes, and nutrition. Carbohydrate controlled, low- cholesterol diet. 13. DVT prophylaxis. Bilateral sequential compression devices. 14. Plan. Continue current management. Adjust insulin to obtain optimal blood sugar control. Await further recommendations from cardiology. Obtain endocrinology consult. Case discussed with Dr. Benito. Problems: Subjective 24 Hr Interval Summary Free Text/Dictation Denies any chest pain. Complains of cough. Exam/Review of Systems Vital Signs Vitals Vital Signs Date Time Temp Pulse Resp B/P Pulse Ox O2 Delivery O2 Flow Rate FiO2 04/18/17 12:18 98.0 63 18 118/56 98 04/18/17 09:10 21 04/17/17 14:27 Room Air Intake and Output 04/17/17 04/17/17 04/18/17 14:59 22:59 06:59 Intake Total 240 ml 350 ml Balance 240 ml 350 ml Exam General: Adequately build 56 year-old female lying in bed in no apparent distress. HEENT: Normocephalic, atraumatic. Eyes: Anicteric sclerae, conjunctivae clear. ENT: Nasal septum midline, oral mucosa moist. Neck supple, no JVD noticed. Respiratory: Bilaterally diminished breath sounds. No use of accessory muscles of respiration. No adventitious breath sounds. Cardiovascular: S1, S2 heard. Regular rate and rhythm. Abdomen: Soft, nontender, and nondistended. Bowel sounds positive in all 4 quadrants. Genitourinary: Deferred. Extremities: No cyanosis, no edema. Peripheral pulses palpable. Right knee tenderness. Neurologic: Cranial nerves II through XII grossly intact. The patient is awake, alert, and oriented. Skin: Normal skin turgor. No skin rashes. Results Result Diagram: 04/18/17 0544 04/18/17 0544 Results 24 hrs Laboratory Tests Test 04/17/17 16:12 04/17/17 17:41 04/17/17 20:11 04/17/17 22:33 Creatine Kinase 35 28 Creatine Kinase Index 3.5 4.5 Creatinine Kinase MB (Mass) 1.24 1.25 Troponin I < 0.012 < 0.012 Bedside Glucose 329 H 243 H Test 04/18/17 02:18 04/18/17 05:41 04/18/17 05:44 04/18/17 07:41 Bedside Glucose 82 55 L Free Thyroxine 1.17 White Blood Count 6.2 # Red Blood Count 4.47 Hemoglobin 13.2 Hematocrit 40.9 Mean Corpuscular Volume 91.5 Mean Corpuscular Hemoglobin 29.5 Mean Corpuscular Hemoglobin Concent 32.3 Red Cell Distribution Width 12.9 Platelet Count 327 Mean Platelet Volume 9.6 Neutrophils % 55.2 Lymphocytes % 27.1 Monocytes % 8.5 Eosinophils % 7.6 H Basophils % 1.3 Nucleated Red Blood Cells % 0.0 Neutrophils # 3.4 Lymphocytes # 1.7 Monocytes # 0.5 Eosinophils # 0.5 Basophils # 0.1 Nucleated Red Blood Cells # 0.0 Sodium Level 142 Potassium Level 4.2 Chloride Level 102 Carbon Dioxide Level 29 Anion Gap 15 Blood Urea Nitrogen 18 Creatinine 0.71 Glucose Level 60 #L Hemoglobin A1c 8.3 H Calcium Level 9.2 Phosphorus Level 5.8 H Magnesium Level 1.9 Total Bilirubin 0.9 Direct Bilirubin 0.00 Indirect Bilirubin 0.9 Aspartate Amino Transf (AST/SGOT) 20 Alanine Aminotransferase (ALT/SGPT) 23 Alkaline Phosphatase 88 Total Protein 6.7 Albumin 3.9 Globulin 2.80 Albumin/Globulin Ratio 1.39 Triglycerides Level 117 Cholesterol Level 174 LDL Cholesterol, Calculated 103 HDL Cholesterol 48 Cholesterol/HDL Ratio 3.6 Thyroid Stimulating Hormone (TSH) 7.170 H Test 04/18/17 08:05 04/18/17 11:34 Bedside Glucose 179 410 *H Medications Medications Current Medications Aspirin (Aspirin) 81 mg DAILY PO ; Start 04/19/17 at 09:00 Nitroglycerin (Nitroglycerin (Sl Tab) 0.4 Mg) 1 tab Q5M PRN SL CHEST PAIN; Start 04/17/17 at 13:00 Morphine Sulfate (morphine) 2 mg Q2H PRN IV PAIN LEVEL 4-6 Last administered on 04/17/17 23:32; Admin Dose 2 MG; Start 04/17/17 at 13:00 Ondansetron HCl (Zofran Inj) 4 mg Q6H PRN IV NAUSEA AND/OR VOMITING Last administered on 04/17/17 23:32; Admin Dose 4 MG; Start 04/17/17 at 13:00 Acetaminophen (Tylenol Tab) 650 mg Q6H PRN PO PAIN LEVEL 1-3 OR FEVER; Start 04/17/17 at 13:00 Acetaminophen (Tylenol Supp) 650 mg Q6H PRN [place] PAIN LEVEL 1-3 OR FEVER; Start 04/17/17 at 13:00 Docusate Sodium (Colace) 100 mg Q12H PRN PO CONSTIPATION; Start 04/17/17 at 13: 00 Diagnostic Test (Pha) (Accu-Chek) 1 ea 02 XX Last administered on 04/18/17 02: 32; Admin Dose 1 EA; Start 04/18/17 at 02:00 Alendronate Sodium (Fosamax) 70 mg Q7D PO ; Start 04/21/17 at 06:30 Furosemide (Lasix) 20 mg DAILY PO Last administered on 04/18/17 08:03; Admin Dose 20 MG; Start 04/18/17 at 09:00 Levothyroxine Sodium (Synthroid) 112 mcg DAILY@06 PO Last administered on 05:40; Admin Dose 112 MCG; Start 04/18/17 at 06:00 Metoprolol Tartrate (Lopressor) 25 mg BID PO Last administered on 04/17/17 20: 32; Admin Dose 25 MG; Start 04/17/17 at 21:00 Ticagrelor (Brilinta) 90 mg BID PO Last administered on 04/18/17 07:53; Admin Dose 90 MG; Start 04/17/17 at 21:00 Miscellaneous Information 1 ea NOTE XX ; Start 04/17/17 at 14:00 Glucose (Glutose) 15 gm Q15M PRN PO DECREASED GLUCOSE; Start 04/17/17 at 14:00 Glucose (Glutose) 22.5 gm Q15M PRN PO DECREASED GLUCOSE; Start 04/17/17 at 14: 00 Dextrose (D50w Syringe) 25 ml Q15M PRN IV DECREASED GLUCOSE Last administered on 04/18/17 07:43; Admin Dose 25 ML; Start 04/17/17 at 14:00 Dextrose (D50w Syringe) 50 ml Q15M PRN IV DECREASED GLUCOSE; Start 04/17/17 at 14:00 Glucagon (Glucagen) 1 mg Q15M PRN IM DECREASED GLUCOSE; Start 04/17/17 at 14:00 Glucose (Glutose) 15 gm Q15M PRN BUCCAL DECREASED GLUCOSE; Start 04/17/17 at 14 :00 Promethazine HCl/ Codeine (Phenergan/ Codeine) 5 ml Q4H PRN PO COUGH; Start at 14:30 Benzonatate (Tessalon) 100 mg TID PO Last administered on 04/18/17 11:42; Admin Dose 100 MG; Start 04/17/17 at 21:00 Insulin Glargine (Lantus) 20 unit QHS SC ; Start 04/18/17 at 21:00 Atorvastatin Calcium (Lipitor) 40 mg HS PO ; Start 04/18/17 at 21:00 Gabapentin (Neurontin) 300 mg DAILY PO ; Start 04/19/17 at 13:00 Gabapentin (Neurontin) 600 mg HS PO ; Start 04/18/17 at 21:00 Influenza Virus Vaccine (Fluzone) 0.5 ml ONCE ONCE IM* ; Start 04/18/17 at 14:00 ; Stop 04/18/17 at 14:01 Pneumococcal Polyvalent Vaccine (Pneumovax-23) 0.5 ml ONCE ONCE IM* ; Start 04/18/17 at 14:00; Stop 04/18/17 at 14:01 JACKSON KEARNEY NP Apr 18, 2017 13:22 JACKSON KEARNEY NP Apr 18, 2017 13:22
[2017-04-18] MEDS ORDERED: ALBUTEROL/IPRATROPIUM (NEB) 3 ML AMP HHN PRN (13:30)
[2017-04-18] MEDS ORDERED: INFLUENZA VIRUS VACCINE 0.5 ML SYG IM* ONE (14:00)
[2017-04-18] MEDS ORDERED: PNEUMOCOCCAL VACCINE 0.5 ML INJ IM* ONE (14:00)
--- NOTE | 2017-04-18 15:49 | CONS ---
Date/Time of Note Date/Time of Note DATE: 04/18/17 TIME: 15:46 Assessment/Plan Assessment/Plan Additional Assessment/Plan Atypical chest pain CAD S/P CABG s/p Stenting Hypertension CHF hypothyroidism Clinically and hemodynamically stable Continue Lasix Started on lisinopril Continue Metoprolol Continue ASA and Brilinta Continue Lipitor Continue Insulin Continue Levothyroxine Consultation Date/Type/Reason Admit Date/Time Past Surgical History Past Surgical Hx: other Social History Smoking Status: Former smoker Exam/Review of Systems Vital Signs Vitals Vital Signs Date Time Temp Pulse Resp B/P Pulse Ox O2 Delivery O2 Flow Rate FiO2 04/18/17 13:47 84 20 21 04/18/17 12:18 98.0 118/56 98 04/17/17 14:27 Room Air Intake and Output 04/17/17 04/17/17 04/18/17 15:00 23:00 07:00 Intake Total 240 ml 350 ml Balance 240 ml 350 ml Exam Constitutional: alert Head: atraumatic, normocephalic Neck: non-tender, supple Respiratory: clear to auscultation Cardiovascular: regular rate and rhythm Gastrointestinal: nl liver, spleen, soft Extremities: normal pulses Results Result Diagram: 04/18/17 0544 04/18/17 0544 Results 24 hrs Laboratory Tests Test 04/17/17 16:12 04/17/17 17:41 04/17/17 20:11 04/17/17 22:33 Creatine Kinase 35 28 Creatine Kinase Index 3.5 4.5 Creatinine Kinase MB (Mass) 1.24 1.25 Troponin I < 0.012 < 0.012 Bedside Glucose 329 H 243 H Test 04/18/17 02:18 04/18/17 05:41 04/18/17 05:44 04/18/17 07:41 Bedside Glucose 82 55 L Free Thyroxine 1.17 White Blood Count 6.2 # Red Blood Count 4.47 Hemoglobin 13.2 Hematocrit 40.9 Mean Corpuscular Volume 91.5 Mean Corpuscular Hemoglobin 29.5 Mean Corpuscular Hemoglobin Concent 32.3 Red Cell Distribution Width 12.9 Platelet Count 327 Mean Platelet Volume 9.6 Neutrophils % 55.2 Lymphocytes % 27.1 Monocytes % 8.5 Eosinophils % 7.6 H Basophils % 1.3 Nucleated Red Blood Cells % 0.0 Neutrophils # 3.4 Lymphocytes # 1.7 Monocytes # 0.5 Eosinophils # 0.5 Basophils # 0.1 Nucleated Red Blood Cells # 0.0 Sodium Level 142 Potassium Level 4.2 Chloride Level 102 Carbon Dioxide Level 29 Anion Gap 15 Blood Urea Nitrogen 18 Creatinine 0.71 Glucose Level 60 #L Hemoglobin A1c 8.3 H Calcium Level 9.2 Phosphorus Level 5.8 H Magnesium Level 1.9 Total Bilirubin 0.9 Direct Bilirubin 0.00 Indirect Bilirubin 0.9 Aspartate Amino Transf (AST/SGOT) 20 Alanine Aminotransferase (ALT/SGPT) 23 Alkaline Phosphatase 88 Total Protein 6.7 Albumin 3.9 Globulin 2.80 Albumin/Globulin Ratio 1.39 Triglycerides Level 117 Cholesterol Level 174 LDL Cholesterol, Calculated 103 HDL Cholesterol 48 Cholesterol/HDL Ratio 3.6 Thyroid Stimulating Hormone (TSH) 7.170 H Test 04/18/17 08:05 04/18/17 11:34 Bedside Glucose 179 410 *H Medications Medications Current Medications Aspirin (Aspirin) 81 mg DAILY PO ; Start 04/19/17 at 09:00 Nitroglycerin (Nitroglycerin (Sl Tab) 0.4 Mg) 1 tab Q5M PRN SL CHEST PAIN; Start 04/17/17 at 13:00 Morphine Sulfate (morphine) 2 mg Q2H PRN IV PAIN LEVEL 4-6 Last administered on 04/17/17 23:32; Admin Dose 2 MG; Start 04/17/17 at 13:00 Ondansetron HCl (Zofran Inj) 4 mg Q6H PRN IV NAUSEA AND/OR VOMITING Last administered on 04/17/17 23:32; Admin Dose 4 MG; Start 04/17/17 at 13:00 Acetaminophen (Tylenol Tab) 650 mg Q6H PRN PO PAIN LEVEL 1-3 OR FEVER; Start 04/17/17 at 13:00 Acetaminophen (Tylenol Supp) 650 mg Q6H PRN [place] PAIN LEVEL 1-3 OR FEVER; Start 04/17/17 at 13:00 Docusate Sodium (Colace) 100 mg Q12H PRN PO CONSTIPATION; Start 04/17/17 at 13: 00 Diagnostic Test (Pha) (Accu-Chek) 1 ea 02 XX Last administered on 04/18/17 02: 32; Admin Dose 1 EA; Start 04/18/17 at 02:00 Alendronate Sodium (Fosamax) 70 mg Q7D PO ; Start 04/21/17 at 06:30 Furosemide (Lasix) 20 mg DAILY PO Last administered on 04/18/17 08:03; Admin Dose 20 MG; Start 04/18/17 at 09:00 Levothyroxine Sodium (Synthroid) 112 mcg DAILY@06 PO Last administered on 05:40; Admin Dose 112 MCG; Start 04/18/17 at 06:00 Metoprolol Tartrate (Lopressor) 25 mg BID PO Last administered on 04/17/17 20: 32; Admin Dose 25 MG; Start 04/17/17 at 21:00 Ticagrelor (Brilinta) 90 mg BID PO Last administered on 04/18/17 07:53; Admin Dose 90 MG; Start 04/17/17 at 21:00 Miscellaneous Information 1 ea NOTE XX ; Start 04/17/17 at 14:00 Glucose (Glutose) 15 gm Q15M PRN PO DECREASED GLUCOSE; Start 04/17/17 at 14:00 Glucose (Glutose) 22.5 gm Q15M PRN PO DECREASED GLUCOSE; Start 04/17/17 at 14: 00 Dextrose (D50w Syringe) 25 ml Q15M PRN IV DECREASED GLUCOSE Last administered on 04/18/17 07:43; Admin Dose 25 ML; Start 04/17/17 at 14:00 Dextrose (D50w Syringe) 50 ml Q15M PRN IV DECREASED GLUCOSE; Start 04/17/17 at 14:00 Glucagon (Glucagen) 1 mg Q15M PRN IM DECREASED GLUCOSE; Start 04/17/17 at 14:00 Glucose (Glutose) 15 gm Q15M PRN BUCCAL DECREASED GLUCOSE; Start 04/17/17 at 14 :00 Promethazine HCl/ Codeine (Phenergan/ Codeine) 5 ml Q4H PRN PO COUGH; Start at 14:30 Benzonatate (Tessalon) 100 mg TID PO Last administered on 04/18/17 11:42; Admin Dose 100 MG; Start 04/17/17 at 21:00 Insulin Glargine (Lantus) 20 unit QHS SC ; Start 04/18/17 at 21:00 Atorvastatin Calcium (Lipitor) 40 mg HS PO ; Start 04/18/17 at 21:00 Gabapentin (Neurontin) 300 mg DAILY PO ; Start 04/19/17 at 13:00 Gabapentin (Neurontin) 600 mg HS PO ; Start 04/18/17 at 21:00 HALI ALVARADO M.D. Apr 18, 2017 15:49
--- NOTE | 2017-04-18 16:39 | RADRPT ---
Echocardiogram Report Patient Name: POOJA NGUYEN Gender: Female Date: 1960 Study Date: 18-Apr-2017 Director [facility]: [facility] Location: [id number] Ref. Physician: RHONDA PENA Quality: Good Procedures: Transthoracic echocardiogram with complete 2D, M-Mode, and doppler examination. Indications: Chest Pain. 2D/M Mode Doppler Measurement Value Normal Ranges Measurement Value Normal Ranges AoR Diam MM 2.6 cm SNEHA Vmax 2.0 cm2 ACS MM 1.9 cm SNEHA VTI 2.0 cm2 LA/Ao MM 1.4 AV Mean Geo 0.8 m/sec LA Dimen MM 3.5 cm AV Mean PG 2.8 mmHg LVIDd 2D 4.0 3.5 - 5.6 cm AV Peak Geo 1.1 m/sec LVIDs 2D 3.1 2.1 - 4.1 cm AV Peak PG 5.3 mmHg LVPWd 2D 1.1 0.6 - 1.1 cm AV VTI 25.3 cm IVSd 2D 1.1 0.6 - 1.1 cm LVOT Peak Geo 0.8 m/sec EDV 2D 71.3 cm3 LVOT Peak PG 2.8 mmHg ESV 2D 31.1 cm3 MV E Peak Geo 0.7 m/sec EF 2D 45.0 50.0 - 65.0 % MV A Peak Geo 0.9 m/sec LVOT Diam 1.9 cm MV E/A 0.8 MV Decel Time 247 msec MV Decel Love 3 MV E/A 0.8 TR Peak Geo 2.3 m/sec TR Peak PG 22.0 mmHg RA Pressure 8.0 Findings Left Ventricle: Normal left ventricular cavity size. Normal left ventricular wall thickness. Mild left ventricular systolic dysfunction. Ejection fraction is visually estimated at 45 %. Tissue Doppler/Mitral Doppler indices are consistent with impaired relaxation (Stage I diastolic dysfunction). Multiple segmental wall motion abnormalities. Right Ventricle: Normal right ventricular size. Normal right ventricular systolic function. Left Atrium: The left atrium is normal in size. Right Atrium: The right atrium is normal in size. Atrial Septum: Normal atrial septum. Mitral Valve: Normal appearance and function of the mitral valve with trace physiologic regurgitation. Mild mitral annular calcification. Aortic Valve: Normal appearance of the aortic valve. No significant aortic stenosis with trivial insufficiency. Tricuspid Valve: Normal appearance of the tricuspid valve. Estimated peak PA systolic pressure 30 mmHg. Pulmonic Valve: Normal pulmonic valve appearance. Pericardium: Normal pericardium with no significant pericardial effusion. Small left pleural effusion seen. Aorta: Normal aortic root. IVC: Normal size and normal respiratory collapse consistent with normal right atrial pressure. Conclusions 1.Normal left ventricular cavity size. Normal left ventricular wall thickness. Mild left ventricular systolic dysfunction. Ejection fraction is visually estimated at 45 %. Tissue Doppler/Mitral Doppler indices are consistent with impaired relaxation (Stage I diastolic dysfunction). Multiple segmental wall motion abnormalities. 2.Normal right ventricular size. Normal right ventricular systolic function. 3.Normal appearance and function of the mitral valve with trace physiologic regurgitation. Mild mitral annular calcification. 4.Normal appearance of the aortic valve. No significant aortic stenosis with trivial insufficiency. 5.Normal appearance of the tricuspid valve. Estimated peak PA systolic pressure 30 mmHg. 6.Normal pericardium with no significant pericardial effusion. Electronically Signed By: Jose Rojas 18-Apr-2017 16:38:33 -0700 Patient Name: POOJA NGUYEN Study Date: 18-Apr-2017 [id number]
[2017-04-18] MEDS: PROMETHAZINE/CODEINE 5ML CUP PO PRN (18:21)
[2017-04-18] MEDS: ATORVASTATIN 40 MG TAB PO SCH (20:40)
[2017-04-18] MEDS ORDERED: INSULIN GLARGINE [LANtus] 3 ML PEN SC SCH (21:00)
[2017-04-18] MEDS: morphine 2 MG INJ IV PRN (22:06)
[2017-04-19] VITALS (13 sets, daily range): BP systolic 96–163; BP diastolic 49–59; PULSE 77–100; RESP 18–19
[2017-04-19] MEDS: ACCU-CHEK XX SCH (01:17)
[2017-04-19] MEDS: DEXTROSE 50% 50 ML SYRINGE IV PRN ×2 (01:37→21:03)
[2017-04-19] MEDS: LEVOTHYROXINE 112 MCG TAB PO SCH (05:05)
[2017-04-19 07:24] LABS: BASOPHIL # 0.1 10^3/ul (0.0-0.1); BASOPHILS % 0.8 % (0.0-2.0); EOSINOPHILS # 0.5 10^3/ul (0.0-0.5); EOSINOPHILS % 5.7 % (0.0-7.0); HEMATOCRIT 39.9 % (37.0-47.0); HEMOGLOBIN 12.6 g/dl (12.0-16.0); LYMPHOCYTES # 1.6 10^3/ul (0.8-2.9); LYMPHOCYTES % 18.1 % (15.0-51.0); MEAN CORPUSCULAR HEMOGLOBIN 28.8 pg (29.0-33.0); MEAN CORPUSCULAR HGB CONC 31.6 g/dl (32.0-37.0); MEAN CORPUSCULAR VOLUME 91.3 fl (82.0-101.0); MEAN PLATELET VOLUME 9.5 fl (7.4-10.4); MONOCYTE # 0.8 10^3/ul (0.3-0.9); MONOCYTES % 9.3 % (0.0-11.0); NEUTROPHIL # 5.6 10^3/ul (1.6-7.5); NEUTROPHILS % 65.8 % (39.0-77.0); PLATELET COUNT 287 10^3/UL (140-415); RED BLOOD COUNT 4.37 10^6/ul (4.20-5.40); RED CELL DISTRIBUTION WIDTH 13.1 % (11.5-14.5); WHITE BLOOD COUNT 8.6 10^3/ul (4.8-10.8)
[2017-04-19] MEDS: INSULIN ASPART [NOVOLOG] 3 ML PEN SC SCH ×5 (07:36→22:11)
[2017-04-19] MEDS: BENZONATATE 100 MG CAP PO SCH ×3 (07:40→20:25)
[2017-04-19] MEDS: METOPROLOL 25 MG TAB PO SCH ×2 (07:40→20:25)
[2017-04-19 07:42] LABS: CALCIUM 9.3 mg/dl (8.4-10.2); CREATININE 0.69 mg/dl (0.44-1.00); POTASSIUM 4.6 mmol/L (3.5-5.1)
[2017-04-19 07:43] LABS: MAGNESIUM 1.8 mg/dl (1.7-2.5); PHOSPHORUS 5.2 mg/dl (2.5-4.9)
[2017-04-19] MEDS: TICAGRELOR 90 MG TABLET PO SCH ×2 (07:43→20:26)
[2017-04-19] MEDS: ASPIRIN 81 MG TAB PO SCH (08:11)
[2017-04-19] MEDS: ALBUTEROL/IPRATROPIUM (NEB) 3 ML AMP HHN SCH ×3 (08:26→20:35)
[2017-04-19] MEDS: PROMETHAZINE/CODEINE 5ML CUP PO PRN ×2 (09:01→18:43)
--- NOTE | 2017-04-19 11:14 | CONS ---
Date/Time of Note Date/Time of Note DATE: 04/19/17 TIME: 10:59 Assessment/Plan Assessment/Plan Problems: (1) Type 1 diabetes mellitus with diabetic polyneuropathy Status: Chronic Comment: Pt. admitted w/ probable COPD exacerbation. At last visit pt. w/ relatively stable glucose w/ lantus 13-15 units, Novolog 9 units w/ breakfast, 3 -4 units w/ lunch, and 7 units w/ dinner. Pt. was also receiving small dose of NPH at night. However, now receiving lantus at night and may not need NPH if lantus is being dosed at night. Will make lantus 15 units qhs and add Novolog 9 qam, 3 q lunch, 7 q dinner. Monitor and likely will have to adjust insulin daily. Consultation Date/Type/Reason Admit Date/Time 04/17/2017 @ 1430 Date of Consultation: Apr 19, 2017 Type of Consultation: Endocrinology Reason for Consultation T1DM management Referring Provider: JACKSON KEARNEY NP Hx of Present Illness 56 y/o C F w/ h/o poorly managed T1DM, heavy smoking resulting in COPD, PVD, systolic CHF, CAD w/ NSTEMI, s/p CABG, also w/ hyperlipidemia and hypothyroidism s/p recent prolonged admit for both her NSTEMI, CABG, PVD, and a possible laryngeal mass. After return home pt. has not resumed smoking. 2 weeks ago became ill w/ bronchitis which has continued including cough. 5 days ago fell and injured her L knee. Subsequently developed worsening cough, SOB, and CP. Came to [facility] 2 days ago and admitted. BG initially OOC. Pt. WAS NOT PLACED ON SCHEDULED MEALTIME INSULIN DESPITE PRIOR HISTORY OF T1DM. Endo consulted. Constitutional: improved, no complaints Eyes: no complaints ENT: no complaints Respiratory: no complaints Cardiovascular: no complaints Gastrointestinal: no complaints Genitourinary: no complaints Musculoskeletal: no complaints Neurologic: no complaints Past Medical History Medical History: angina, congestive heart failure (EF increased from 25 to 45% since CABG), coronary artery disease (NSTEMI), diabetes (type 1), high cholesterol, hypertension, hypothyroid, other (COPD) Past Surgical History Past Surgical Hx: coronary bypass surgery, other (c-sect, T&A) Family History Significant Family History: cancer (breast in sister, prostate in father) Social History 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 [employer], , 2 children Alcohol Use: none Smoking Status: Former smoker (1.5 ppd x 30 y, quit 2 months ago after last admit) Drug Use: none Exam/Review of Systems Vital Signs Vitals VS - Last 72 Hours, by Label Date Time Temp Pulse Resp B/P Pulse Ox O2 Delivery O2 Flow Rate FiO2 04/19/17 08:56 98.0 87 18 96/53 98 04/19/17 08:31 92 21 04/19/17 08:31 83 04/19/17 08:30 82 20 92 21 04/19/17 04:17 97.6 86 18 101/49 96 04/19/17 04:00 82 04/19/17 00:08 97.6 78 19 97/59 96 04/19/17 00:00 77 04/18/17 21:00 96 21 04/18/17 20:00 97.9 96 20 145/101 96 04/18/17 20:00 95 04/18/17 16:21 98.0 87 18 93/47 98 04/18/17 16:12 83 04/18/17 13:47 84 20 21 04/18/17 13:47 21 04/18/17 12:18 98.0 63 18 118/56 98 04/18/17 12:15 77 04/18/17 12:06 98.0 75 18 115/53 98 04/18/17 09:10 21 04/18/17 09:10 21 04/18/17 08:17 68 04/18/17 07:58 98.6 73 18 109/55 98 04/18/17 04:15 66 04/18/17 04:08 98.2 72 19 106/58 97 04/18/17 00:14 67 04/17/17 23:53 98.6 73 18 96/52 96 04/17/17 22:00 96 21 04/17/17 20:21 85 22 92 21 04/17/17 20:14 80 04/17/17 20:00 98.9 81 19 105/53 96 04/17/17 17:18 82 18 92 21 04/17/17 16:29 97.8 87 17 90/55 96 04/17/17 16:04 84 04/17/17 14:27 97.4 83 20 126/61 96 Room Air 04/17/17 13:03 76 18 110/53 99 Room Air 04/17/17 12:34 77 18 104/47 99 Room Air 04/17/17 11:07 75 18 95/60 99 Room Air 04/17/17 10:09 98.0 77 18 129/71 99 Vital Signs Date Time Temp Pulse Resp B/P Pulse Ox O2 Delivery O2 Flow Rate FiO2 04/19/17 08:56 98.0 87 18 96/53 98 04/19/17 08:31 21 04/17/17 14:27 Room Air Intake and Output 04/18/17 04/18/17 04/19/17 15:00 23:00 07:00 Intake Total 1200 ml 700 ml Balance 1200 ml 700 ml Exam Constitutional: alert, oriented, well developed Psych: nl mood/affect, no complaints Eyes: EOMI, PERRL, nl conjunctiva, nl lids, nl sclera ENMT: mucosa pink and moist, nl external ears & nose Neck: non-tender, supple, No bruits, No masses, No thyromegaly Respiratory: clear to auscultation, normal air movement Cardiovascular: nl pulses, regular rate and rhythm, No edema, No murmurs/extra sounds, No rub Gastrointestinal: bowel sounds, nl liver, spleen, non-tender, soft, No mass, No rebound or guarding Musculoskeletal: nl extremities to inspection Extremities: normal pulses, No clubbing, No cyanosis, No edema 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: 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, nl mental status, nl speech, nl strength Additional Comments Bedside Glucose - 72 Hours Test 04/17/17 17:41 04/17/17 20:11 04/18/17 02:18 04/18/17 07:41 Bedside Glucose 329mg/dL (70-220) H 243mg/dL (70-220) H 82mg/dL (70-220) 55mg/dL (70-220) L Test 04/18/17 08:05 04/18/17 11:34 04/18/17 16:57 04/18/17 20:38 Bedside Glucose 179mg/dL (70-220) 410mg/dL (70-220) *H 290mg/dL (70-220) H 253mg/dL (70-220) H Test 04/19/17 01:11 04/19/17 01:29 04/19/17 01:50 04/19/17 02:05 Bedside Glucose 54mg/dL (70-220) L 68mg/dL (70-220) L 169mg/dL (70-220) 165mg/dL (70-220) Test 04/19/17 07:29 Bedside Glucose 139mg/dL (70-220) Results Result Diagram: 04/19/17 0557 04/19/17 0557 Results 24 hrs Laboratory Tests Test 04/18/17 11:34 04/18/17 16:57 04/18/17 18:49 04/18/17 20:38 Bedside Glucose 410 *H 290 H 253 H Troponin I < 0.012 Test 04/19/17 01:03 04/19/17 01:11 04/19/17 01:29 04/19/17 01:50 Troponin I < 0.012 Bedside Glucose 54 L 68 L 169 Test 04/19/17 02:05 04/19/17 05:57 04/19/17 07:29 Bedside Glucose 165 139 White Blood Count 8.6 # Red Blood Count 4.37 Hemoglobin 12.6 Hematocrit 39.9 Mean Corpuscular Volume 91.3 Mean Corpuscular Hemoglobin 28.8 L Mean Corpuscular Hemoglobin Concent 31.6 L Red Cell Distribution Width 13.1 Platelet Count 287 Mean Platelet Volume 9.5 Neutrophils % 65.8 Lymphocytes % 18.1 Monocytes % 9.3 Eosinophils % 5.7 Basophils % 0.8 Nucleated Red Blood Cells % 0.0 Neutrophils # 5.6 Lymphocytes # 1.6 Monocytes # 0.8 Eosinophils # 0.5 Basophils # 0.1 Nucleated Red Blood Cells # 0.0 Sodium Level 141 Potassium Level 4.6 Chloride Level 101 Carbon Dioxide Level 33 H Anion Gap 12 Blood Urea Nitrogen 20 Creatinine 0.69 Glucose Level 139 # Calcium Level 9.3 Phosphorus Level 5.2 H Magnesium Level 1.8 Troponin I < 0.012 Medications Medications Current Medications Aspirin (Aspirin) 81 mg DAILY PO Last administered on 04/19/17t 08:11; Admin Dose 81 MG; Start 04/19/17 at 09:00 Nitroglycerin (Nitroglycerin (Sl Tab) 0.4 Mg) 1 tab Q5M PRN SL CHEST PAIN; Start 04/17/17 at 13:00 Morphine Sulfate (morphine) 2 mg Q2H PRN IV PAIN LEVEL 4-6 Last administered on 04/18/17 22:06; Admin Dose 2 MG; Start 04/17/17 at 13:00 Ondansetron HCl (Zofran Inj) 4 mg Q6H PRN IV NAUSEA AND/OR VOMITING Last administered on 04/17/17 23:32; Admin Dose 4 MG; Start 04/17/17 at 13:00 Acetaminophen (Tylenol Tab) 650 mg Q6H PRN PO PAIN LEVEL 1-3 OR FEVER; Start 04/17/17 at 13:00 Acetaminophen (Tylenol Supp) 650 mg Q6H PRN [place] PAIN LEVEL 1-3 OR FEVER; Start 04/17/17 at 13:00 Docusate Sodium (Colace) 100 mg Q12H PRN PO CONSTIPATION; Start 04/17/17 at 13: 00 Diagnostic Test (Pha) (Accu-Chek) 1 ea 02 XX Last administered on 04/19/17 01: 17; Admin Dose 1 EA; Start 04/18/17 at 02:00 Alendronate Sodium (Fosamax) 70 mg Q7D PO ; Start 04/21/17 at 06:30 Levothyroxine Sodium (Synthroid) 112 mcg DAILY@06 PO Last administered on 05:05; Admin Dose 112 MCG; Start 04/18/17 at 06:00 Ticagrelor (Brilinta) 90 mg BID PO Last administered on 04/19/17 07:43; Admin Dose 90 MG; Start 04/17/17 at 21:00 Miscellaneous Information 1 ea NOTE XX ; Start 04/17/17 at 14:00 Glucose (Glutose) 15 gm Q15M PRN PO DECREASED GLUCOSE Last administered on 04/19 01:16; Admin Dose 15 GM; Start 04/17/17 at 14:00 Glucose (Glutose) 22.5 gm Q15M PRN PO DECREASED GLUCOSE; Start 04/17/17 at 14: 00 Dextrose (D50w Syringe) 25 ml Q15M PRN IV DECREASED GLUCOSE Last administered on 04/19/17 01:37; Admin Dose 25 ML; Start 04/17/17 at 14:00 Dextrose (D50w Syringe) 50 ml Q15M PRN IV DECREASED GLUCOSE; Start 04/17/17 at 14:00 Glucagon (Glucagen) 1 mg Q15M PRN IM DECREASED GLUCOSE; Start 04/17/17 at 14:00 Glucose (Glutose) 15 gm Q15M PRN BUCCAL DECREASED GLUCOSE; Start 04/17/17 at 14 :00 Promethazine HCl/ Codeine (Phenergan/ Codeine) 5 ml Q4H PRN PO COUGH Last administered on 04/19/17 09:01; Admin Dose 5 ML; Start 04/17/17 at 14:30 Benzonatate (Tessalon) 100 mg TID PO Last administered on 04/19/17 07:40; Admin Dose 100 MG; Start 04/17/17 at 21:00 Atorvastatin Calcium (Lipitor) 40 mg HS PO Last administered on 04/18/17 20:40 ; Admin Dose 40 MG; Start 04/18/17 at 21:00 Gabapentin (Neurontin) 300 mg DAILY PO ; Start 04/19/17 at 13:00 Gabapentin (Neurontin) 600 mg HS PO Last administered on 04/18/17 20:40; Admin Dose 600 MG; Start 04/18/17 at 21:00 Metoprolol Tartrate (Lopressor) 12.5 mg BID PO Last administered on 04/18/17 20:42; Admin Dose 12.5 MG; Start 04/18/17 at 21:00 Insulin Glargine (Lantus) 15 unit QHS SC ; Start 04/19/17 at 21:00 DARYL MYERS MD Apr 19, 2017 11:09
--- NOTE | 2017-04-19 11:48 | PN ---
Date/Time of Note Date/Time of Note DATE: 04/19/17 TIME: 11:45 Assessment/Plan VTE Prophylaxis VTE Prophylaxis Intervention: SCD's Lines/Catheters IV Catheter Type (from Nrs): Peripheral IV Urinary Cath still in place: No Assessment/Plan Chief Complaint/Hosp Course 1. Chest pain. To rule out acute coronary syndrome. Troponins negative so far. The patient has prior history of CAD. The patient will be continued on dual antiplatelet therapy. Cardiology following. Chest pain is most likely noncardiac in origin. 2. Status post mechanical fall with left knee pain. X-ray negative for any acute findings. Continue pain control. 3. CAD. Status post CABG with DEE to LAD and saphenous vein graft to obtuse marginal in January 2017. Continue cardiac medications. Cardiology following. 4. Nonproductive cough. Continue Tessalon. 5. Neck mass with dysphagia. Patient currently tolerating a regular consistency diet. Outpatient ENT follow-up. 6. Hypothyroidism. Continue Synthroid. 7. Type 1 diabetes mellitus. Fluctuating blood sugars. Continue sliding scale insulin along with pre-meal insulin and basal insulin. Hemoglobin A1c 8.3. Being followed by endocrinology. 8. Osteoporosis. On bisphosphonates. 9. Ischemic cardiomyopathy with ejection fraction of 45% as per 2D echocardiogram. Continue beta-blockers. 10. COPD. No evidence of exacerbation. Continue inhaled bronchodilators. Start maintenance inhalers. 11. Dyslipidemia. Continue statins. 12. Fluids, electrolytes, and nutrition. Carbohydrate controlled, low- cholesterol diet. 13. DVT prophylaxis. Bilateral sequential compression devices. 14. Plan. Continue current management. Adjust insulin to obtain optimal blood sugar control. Await further recommendations from consultants. Case discussed with Dr. Benito. Problems: Subjective 24 Hr Interval Summary Free Text/Dictation Complains of cough. Blood sugars better at this time. Complains of chronically decreased range of motion of bilateral fingers. Exam/Review of Systems Vital Signs Vitals Vital Signs Date Time Temp Pulse Resp B/P Pulse Ox O2 Delivery O2 Flow Rate FiO2 04/19/17 08:56 98.0 87 18 96/53 98 04/19/17 08:31 21 04/17/17 14:27 Room Air Intake and Output 04/18/17 04/18/17 04/19/17 15:00 23:00 07:00 Intake Total 1200 ml 700 ml Balance 1200 ml 700 ml Exam General: Adequately build 56 year-old female lying in bed in no apparent distress. HEENT: Normocephalic, atraumatic. Eyes: Anicteric sclerae, conjunctivae clear. ENT: Nasal septum midline, oral mucosa moist. Neck supple, no JVD noticed. Respiratory: Bilaterally diminished breath sounds. No use of accessory muscles of respiration. No adventitious breath sounds. Cardiovascular: S1, S2 heard. Regular rate and rhythm. Abdomen: Soft, nontender, and nondistended. Bowel sounds positive in all 4 quadrants. Genitourinary: Deferred. Extremities: No cyanosis, no edema. Peripheral pulses palpable. Right knee tenderness. Neurologic: Cranial nerves II through XII grossly intact. The patient is awake, alert, and oriented. Skin: Normal skin turgor. No skin rashes. Results Result Diagram: 04/19/17 0557 04/19/17 0557 Results 24 hrs Laboratory Tests Test 04/18/17 16:57 04/18/17 18:49 04/18/17 20:38 04/19/17 01:03 Bedside Glucose 290 H 253 H Troponin I < 0.012 < 0.012 Test 04/19/17 01:11 04/19/17 01:29 04/19/17 01:50 04/19/17 02:05 Bedside Glucose 54 L 68 L 169 165 Test 04/19/17 05:57 04/19/17 07:29 White Blood Count 8.6 # Red Blood Count 4.37 Hemoglobin 12.6 Hematocrit 39.9 Mean Corpuscular Volume 91.3 Mean Corpuscular Hemoglobin 28.8 L Mean Corpuscular Hemoglobin Concent 31.6 L Red Cell Distribution Width 13.1 Platelet Count 287 Mean Platelet Volume 9.5 Neutrophils % 65.8 Lymphocytes % 18.1 Monocytes % 9.3 Eosinophils % 5.7 Basophils % 0.8 Nucleated Red Blood Cells % 0.0 Neutrophils # 5.6 Lymphocytes # 1.6 Monocytes # 0.8 Eosinophils # 0.5 Basophils # 0.1 Nucleated Red Blood Cells # 0.0 Sodium Level 141 Potassium Level 4.6 Chloride Level 101 Carbon Dioxide Level 33 H Anion Gap 12 Blood Urea Nitrogen 20 Creatinine 0.69 Glucose Level 139 # Calcium Level 9.3 Phosphorus Level 5.2 H Magnesium Level 1.8 Troponin I < 0.012 Bedside Glucose 139 Medications Medications Current Medications Aspirin (Aspirin) 81 mg DAILY PO Last administered on 04/19/17 08:11; Admin Dose 81 MG; Start 04/19/17 at 09:00 Nitroglycerin (Nitroglycerin (Sl Tab) 0.4 Mg) 1 tab Q5M PRN SL CHEST PAIN; Start 04/17/17 at 13:00 Morphine Sulfate (morphine) 2 mg Q2H PRN IV PAIN LEVEL 4-6 Last administered on 04/18/17 22:06; Admin Dose 2 MG; Start 04/17/17 at 13:00 Ondansetron HCl (Zofran Inj) 4 mg Q6H PRN IV NAUSEA AND/OR VOMITING Last administered on 04/17/17 23:32; Admin Dose 4 MG; Start 04/17/17 at 13:00 Acetaminophen (Tylenol Tab) 650 mg Q6H PRN PO PAIN LEVEL 1-3 OR FEVER; Start 04/17/17 at 13:00 Acetaminophen (Tylenol Supp) 650 mg Q6H PRN [place] PAIN LEVEL 1-3 OR FEVER; Start 04/17/17 at 13:00 Docusate Sodium (Colace) 100 mg Q12H PRN PO CONSTIPATION; Start 04/17/17 at 13: 00 Diagnostic Test (Pha) (Accu-Chek) 1 ea 02 XX Last administered on 04/19/17 01: 17; Admin Dose 1 EA; Start 04/18/17 at 02:00 Alendronate Sodium (Fosamax) 70 mg Q7D PO ; Start 04/21/17 at 06:30 Levothyroxine Sodium (Synthroid) 112 mcg DAILY@06 PO Last administered on 05:05; Admin Dose 112 MCG; Start 04/18/17 at 06:00 Ticagrelor (Brilinta) 90 mg BID PO Last administered on 04/19/17 07:43; Admin Dose 90 MG; Start 04/17/17 at 21:00 Miscellaneous Information 1 ea NOTE XX ; Start 04/17/17 at 14:00 Glucose (Glutose) 15 gm Q15M PRN PO DECREASED GLUCOSE Last administered on 04/19 01:16; Admin Dose 15 GM; Start 04/17/17 at 14:00 Glucose (Glutose) 22.5 gm Q15M PRN PO DECREASED GLUCOSE; Start 04/17/17 at 14: 00 Dextrose (D50w Syringe) 25 ml Q15M PRN IV DECREASED GLUCOSE Last administered on 04/19/17 01:37; Admin Dose 25 ML; Start 04/17/17 at 14:00 Dextrose (D50w Syringe) 50 ml Q15M PRN IV DECREASED GLUCOSE; Start 04/17/17 at 14:00 Glucagon (Glucagen) 1 mg Q15M PRN IM DECREASED GLUCOSE; Start 04/17/17 at 14:00 Glucose (Glutose) 15 gm Q15M PRN BUCCAL DECREASED GLUCOSE; Start 04/17/17 at 14 :00 Promethazine HCl/ Codeine (Phenergan/ Codeine) 5 ml Q4H PRN PO COUGH Last administered on 04/19/17 09:01; Admin Dose 5 ML; Start 04/17/17 at 14:30 Benzonatate (Tessalon) 100 mg TID PO Last administered on 04/19/17 07:40; Admin Dose 100 MG; Start 04/17/17 at 21:00 Atorvastatin Calcium (Lipitor) 40 mg HS PO Last administered on 04/18/17 20:40 ; Admin Dose 40 MG; Start 04/18/17 at 21:00 Gabapentin (Neurontin) 300 mg DAILY PO ; Start 04/19/17 at 13:00 Gabapentin (Neurontin) 600 mg HS PO Last administered on 04/18/17 20:40; Admin Dose 600 MG; Start 04/18/17 at 21:00 Metoprolol Tartrate (Lopressor) 12.5 mg BID PO Last administered on 04/18/17 20:42; Admin Dose 12.5 MG; Start 04/18/17 at 21:00 Insulin Glargine (Lantus) 15 unit QHS SC ; Start 04/19/17 at 21:00 Tiotropium [place] (Spiriva) 1 inh DAILY INH ; Start 04/19/17 at 12:30 Salmeterol Xinafoate/ Fluticasone (Advair 250/50 Diskus) 1 inh BID INH ; Start 04/19/17 at 12:30 JACKSON KEARNEY NP Apr 19, 2017 11:48
[2017-04-19] MEDS ORDERED: INSULIN ASPART [NOVOLOG] 3 ML PEN SC SCH ×2 (11:50→17:55)
[2017-04-19] MEDS: SALMETEROL/FLUTICASONE 250/50 INHA INH SCH ×2 (12:47→20:22)
[2017-04-19] MEDS: GABAPENTIN 300 MG CAP PO SCH ×2 (12:47→20:24)
[2017-04-19] MEDS: TIOTROPIUM 18 MCG CAPSULE INHA DEV INH SCH (12:48)
--- NOTE | 2017-04-19 13:25 | CONS ---
Date/Time of Note Date/Time of Note DATE: 04/19/17 TIME: 13:24 Assessment/Plan Assessment/Plan Additional Assessment/Plan Atypical chest pain CAD S/P CABG s/p Stenting Hypertension CHF hypothyroidism Clinically and hemodynamically stable Echo shows EF 45% Stopped Lasix Continue lisinopril Continue Metoprolol Continue ASA and Brilinta Continue Lipitor Continue Insulin Continue Levothyroxine Consultation Date/Type/Reason Admit Date/Time Apr 17, 2017 at 12:14 Initial Consult Date 04/19/17 Type of Consultation: Endocrinology Referring Provider: JACKSON KEARNEY [employer] Exam/Review of Systems Vital Signs Vitals Vital Signs Date Time Temp Pulse Resp B/P Pulse Ox O2 Delivery O2 Flow Rate FiO2 04/19/17 12:34 98.0 93 18 113/55 98 04/19/17 08:31 21 04/17/17 14:27 Room Air Intake and Output 04/18/17 04/18/17 04/19/17 15:00 23:00 07:00 Intake Total 1200 ml 700 ml Balance 1200 ml 700 ml Exam Constitutional: alert, oriented Head: atraumatic, normocephalic Neck: non-tender, supple Respiratory: clear to auscultation Cardiovascular: regular rate and rhythm Gastrointestinal: nl liver, spleen, non-tender, soft Extremities: normal pulses Results Result Diagram: 04/19/17 0557 04/19/17 0557 Results 24 hrs Laboratory Tests Test 04/18/17 16:57 04/18/17 18:49 04/18/17 20:38 04/19/17 01:03 Bedside Glucose 290 H 253 H Troponin I < 0.012 < 0.012 Test 04/19/17 01:11 04/19/17 01:29 04/19/17 01:50 04/19/17 02:05 Bedside Glucose 54 L 68 L 169 165 Test 04/19/17 05:57 04/19/17 07:29 04/19/17 11:48 White Blood Count 8.6 # Red Blood Count 4.37 Hemoglobin 12.6 Hematocrit 39.9 Mean Corpuscular Volume 91.3 Mean Corpuscular Hemoglobin 28.8 L Mean Corpuscular Hemoglobin Concent 31.6 L Red Cell Distribution Width 13.1 Platelet Count 287 Mean Platelet Volume 9.5 Neutrophils % 65.8 Lymphocytes % 18.1 Monocytes % 9.3 Eosinophils % 5.7 Basophils % 0.8 Nucleated Red Blood Cells % 0.0 Neutrophils # 5.6 Lymphocytes # 1.6 Monocytes # 0.8 Eosinophils # 0.5 Basophils # 0.1 Nucleated Red Blood Cells # 0.0 Sodium Level 141 Potassium Level 4.6 Chloride Level 101 Carbon Dioxide Level 33 H Anion Gap 12 Blood Urea Nitrogen 20 Creatinine 0.69 Glucose Level 139 # Calcium Level 9.3 Phosphorus Level 5.2 H Magnesium Level 1.8 Troponin I < 0.012 Bedside Glucose 139 367 H Medications Medications Current Medications Aspirin (Aspirin) 81 mg DAILY PO Last administered on 04/19/17 08:11; Admin Dose 81 MG; Start 04/19/17 at 09:00 Nitroglycerin (Nitroglycerin (Sl Tab) 0.4 Mg) 1 tab Q5M PRN SL CHEST PAIN; Start 04/17/17 at 13:00 Morphine Sulfate (morphine) 2 mg Q2H PRN IV PAIN LEVEL 4-6 Last administered on 04/18/17 22:06; Admin Dose 2 MG; Start 04/17/17 at 13:00 Ondansetron HCl (Zofran Inj) 4 mg Q6H PRN IV NAUSEA AND/OR VOMITING Last administered on 04/17/17 23:32; Admin Dose 4 MG; Start 04/17/17 at 13:00 Acetaminophen (Tylenol Tab) 650 mg Q6H PRN PO PAIN LEVEL 1-3 OR FEVER; Start 04/17/17 at 13:00 Acetaminophen (Tylenol Supp) 650 mg Q6H PRN [place] PAIN LEVEL 1-3 OR FEVER; Start 04/17/17 at 13:00 Docusate Sodium (Colace) 100 mg Q12H PRN PO CONSTIPATION; Start 04/17/17 at 13: 00 Diagnostic Test (Pha) (Accu-Chek) 1 ea 02 XX Last administered on 04/19/17 01: 17; Admin Dose 1 EA; Start 04/18/17 at 02:00 Alendronate Sodium (Fosamax) 70 mg Q7D PO ; Start 04/21/17 at 06:30 Levothyroxine Sodium (Synthroid) 112 mcg DAILY@06 PO Last administered on 05:05; Admin Dose 112 MCG; Start 04/18/17 at 06:00 Ticagrelor (Brilinta) 90 mg BID PO Last administered on 04/19/17 07:43; Admin Dose 90 MG; Start 04/17/17 at 21:00 Miscellaneous Information 1 ea NOTE XX ; Start 04/17/17 at 14:00 Glucose (Glutose) 15 gm Q15M PRN PO DECREASED GLUCOSE Last administered on 04/19 01:16; Admin Dose 15 GM; Start 04/17/17 at 14:00 Glucose (Glutose) 22.5 gm Q15M PRN PO DECREASED GLUCOSE; Start 04/17/17 at 14: 00 Dextrose (D50w Syringe) 25 ml Q15M PRN IV DECREASED GLUCOSE Last administered on 04/19/17 01:37; Admin Dose 25 ML; Start 04/17/17 at 14:00 Dextrose (D50w Syringe) 50 ml Q15M PRN IV DECREASED GLUCOSE; Start 04/17/17 at 14:00 Glucagon (Glucagen) 1 mg Q15M PRN IM DECREASED GLUCOSE; Start 04/17/17 at 14:00 Glucose (Glutose) 15 gm Q15M PRN BUCCAL DECREASED GLUCOSE; Start 04/17/17 at 14 :00 Promethazine HCl/ Codeine (Phenergan/ Codeine) 5 ml Q4H PRN PO COUGH Last administered on 04/19/17 09:01; Admin Dose 5 ML; Start 04/17/17 at 14:30 Benzonatate (Tessalon) 100 mg TID PO Last administered on 04/19/17 12:47; Admin Dose 100 MG; Start 04/17/17 at 21:00 Atorvastatin Calcium (Lipitor) 40 mg HS PO Last administered on 04/18/17 20:40 ; Admin Dose 40 MG; Start 04/18/17 at 21:00 Gabapentin (Neurontin) 300 mg DAILY PO Last administered on 04/19/17 12:47; Admin Dose 300 MG; Start 04/19/17 at 13:00 Gabapentin (Neurontin) 600 mg HS PO Last administered on 04/18/17 20:40; Admin Dose 600 MG; Start 04/18/17 at 21:00 Metoprolol Tartrate (Lopressor) 12.5 mg BID PO Last administered on 04/18/17 20:42; Admin Dose 12.5 MG; Start 04/18/17 at 21:00 Insulin Glargine (Lantus) 15 unit QHS SC ; Start 04/19/17 at 21:00 Tiotropium [place] (Spiriva) 1 inh DAILY INH Last administered on 04/19/17 12: 48; Admin Dose 1 INH; Start 04/19/17 at 12:30 Salmeterol Xinafoate/ Fluticasone (Advair 250/50 Diskus) 1 inh BID INH Last administered on 04/19/17 12:47; Admin Dose 1 INH; Start 04/19/17 at 12:30 HALI ALVARADO M.D. Apr 19, 2017 13:25
[2017-04-19] MEDS: ATORVASTATIN 40 MG TAB PO SCH (20:25)
[2017-04-19] MEDS ORDERED: INSULIN GLARGINE [LANtus] 3 ML PEN SC SCH (21:00)
[2017-04-19] MEDS: morphine 2 MG INJ IV PRN (23:15)
[2017-04-20] VITALS (12 sets, daily range): BP systolic 105–116; BP diastolic 48–57; PULSE 76–90; RESP 18–20
[2017-04-20] MEDS: ACCU-CHEK XX SCH (01:32)
[2017-04-20] MEDS: LEVOTHYROXINE 112 MCG TAB PO SCH (05:47)
[2017-04-20 06:22] LABS: BASOPHIL # 0.1 10^3/ul (0.0-0.1); BASOPHILS % 0.7 % (0.0-2.0); EOSINOPHILS # 0.5 10^3/ul (0.0-0.5); EOSINOPHILS % 6.6 % (0.0-7.0); HEMATOCRIT 38.3 % (37.0-47.0); HEMOGLOBIN 12.4 g/dl (12.0-16.0); LYMPHOCYTES # 1.5 10^3/ul (0.8-2.9); LYMPHOCYTES % 20.8 % (15.0-51.0); MEAN CORPUSCULAR HEMOGLOBIN 29.6 pg (29.0-33.0); MEAN CORPUSCULAR HGB CONC 32.4 g/dl (32.0-37.0); MEAN CORPUSCULAR VOLUME 91.4 fl (82.0-101.0); MEAN PLATELET VOLUME 9.4 fl (7.4-10.4); MONOCYTE # 0.8 10^3/ul (0.3-0.9); MONOCYTES % 10.7 % (0.0-11.0); NEUTROPHIL # 4.5 10^3/ul (1.6-7.5); NEUTROPHILS % 60.8 % (39.0-77.0); PLATELET COUNT 292 10^3/UL (140-415); RED BLOOD COUNT 4.19 10^6/ul (4.20-5.40); RED CELL DISTRIBUTION WIDTH 12.9 % (11.5-14.5); WHITE BLOOD COUNT 7.4 10^3/ul (4.8-10.8)
[2017-04-20 06:52] LABS: MAGNESIUM 1.8 mg/dl (1.7-2.5)
[2017-04-20 06:58] LABS: CALCIUM 9.1 mg/dl (8.4-10.2); CREATININE 0.57 mg/dl (0.44-1.00); POTASSIUM 4.3 mmol/L (3.5-5.1)
[2017-04-20] MEDS ORDERED: MAGNESIUM SULFATE 1 GM/D5W 100 ML IVPB ONE (07:00)
[2017-04-20 07:22] LABS: THYROID STIMULATING HORMONE 6.42 MIU/L (0.465-4.680)
[2017-04-20] MEDS ORDERED: INSULIN ASPART [NOVOLOG] 3 ML PEN SC SCH ×3 (07:55→17:55)
[2017-04-20] MEDS: ALBUTEROL/IPRATROPIUM (NEB) 3 ML AMP HHN SCH ×3 (08:00→20:20)
[2017-04-20] MEDS: BENZONATATE 100 MG CAP PO SCH ×3 (08:05→22:10)
[2017-04-20] MEDS: METOPROLOL 25 MG TAB PO SCH ×2 (08:05→22:10)
[2017-04-20] MEDS: ASPIRIN 81 MG TAB PO SCH (08:05)
[2017-04-20] MEDS: GABAPENTIN 300 MG CAP PO SCH ×2 (08:05→22:10)
[2017-04-20] MEDS: SALMETEROL/FLUTICASONE 250/50 INHA INH SCH ×2 (08:06→22:16)
[2017-04-20] MEDS: TIOTROPIUM 18 MCG CAPSULE INHA DEV INH SCH (08:06)
[2017-04-20] MEDS: TICAGRELOR 90 MG TABLET PO SCH ×2 (08:15→22:15)
[2017-04-20] MEDS: INSULIN ASPART [NOVOLOG] 3 ML PEN SC SCH ×5 (08:15→21:20)
[2017-04-20] MEDS: morphine 2 MG INJ IV PRN (09:34)
--- NOTE | 2017-04-20 10:02 | PN ---
Date/Time of Note Date/Time of Note DATE: 04/20/17 TIME: 10:02 Assessment/Plan VTE Prophylaxis VTE Prophylaxis Intervention: ambulation Lines/Catheters IV Catheter Type (from [facility]): Peripheral IV Urinary Cath still in place: No Assessment/Plan Chief Complaint/Hosp Course 56-year-old female with a past medical history coronary artery disease, status post CABG in January 2017, presented to the emergency room with complaints of nonproductive cough and chest pain 3 day duration. 1. Chest pain, likely costochondritis. Resolved. ACS ruled out. 2. Status post possible URI. 3. Coronary artery disease, with history of CABG with DEE to LAD and saphenous vein graft to obtuse marginal in January 2017. -Continue outpatient medical management. 4. Type 1 diabetes mellitus. With labile blood sugar trends. - Continue sliding scale insulin along with pre-meal insulin and basal insulin. - Hemoglobin A1c 8.3. Being followed by endocrinology. 5. Neck mass with dysphagia. - Patient currently tolerating a regular consistency diet. Outpatient ENT follow -up. 6. Hypothyroidism. - Continue Synthroid. 7. Osteoporosis. - On bisphosphonates. 8. Ischemic cardiomyopathy with ejection fraction of 45% as per 2D echocardiogram. - Continue beta-blockers. 9. COPD. No evidence of exacerbation. -Continue EDGARDO/LABA 10. Dyslipidemia. Continue statins. 11. History of pleural effusion. Currently stable. Plan: Once cleared from consultants, discharge planning. Patient was seen in collaboration with . Problems: Subjective 24 Hr Interval Summary Free Text/Dictation No further dyspnea reported. Blood sugar has been so labile. Exam/Review of Systems Vital Signs Vitals Vital Signs Date Time Temp Pulse Resp B/P Pulse Ox O2 Delivery O2 Flow Rate FiO2 04/20/17 08:17 79 04/20/17 07:58 98.0 20 105/48 97 04/19/17 20:35 21 04/17/17 14:27 Room Air Intake and Output 04/19/17 04/19/17 04/20/17 15:00 23:00 07:00 Intake Total 900 ml 750 ml Balance 900 ml 750 ml Exam General: Chronically ill looking female, who appears older than her actual age, not in any acute distress . HEENT: Normocephalic, Atraumatic, No laceration or hematoma; Eyes: PEERL, Conjunctiva clear, Anicteric sclera Neck: Supple without any lymphadenopathy, nontender, no JVD, no carotid bruits, trachea midline, no thyromegaly Cardiac: S1, S2 auscultated, regular rhythm and rate, no mumurs or gallop Pulmonary: With nonproductive cough. Normal respiratory effort. Chest clear to auscultation bilaterally, no adventitious breath sounds GI: Abdomen normal to inspection. Soft, non tender, non- distended, no masses, no rebound tenderness or guarding. Bowel sounds active on all four quadrants Genitourinary: Deferred Extremities: Pain with right knee movement. No cyanosis, clubbing, or edema. Pulses [2+] bilaterally. Full ROM on all four extremities. No focal weakness appreciated. Neurologic: Alert to person, place, time, and situation. Affect appropriate, intact sensation. Skin: Clean,dry, and intact. No ecchymosis, no rashes, or lesions Results Result Diagram: 04/20/17 0550 04/20/17 0550 Results 24 hrs Laboratory Tests Test 04/19/17 11:48 04/19/17 16:57 04/19/17 20:06 04/19/17 20:35 Bedside Glucose 367 H 221 H 56 L 68 L Test 04/19/17 21:01 04/19/17 21:26 04/19/17 22:08 04/20/17 01:31 Bedside Glucose 142 198 193 188 Test 04/20/17 05:50 04/20/17 07:45 White Blood Count 7.4 Red Blood Count 4.19 L Hemoglobin 12.4 Hematocrit 38.3 Mean Corpuscular Volume 91.4 Mean Corpuscular Hemoglobin 29.6 Mean Corpuscular Hemoglobin Concent 32.4 Red Cell Distribution Width 12.9 Platelet Count 292 Mean Platelet Volume 9.4 Neutrophils % 60.8 Lymphocytes % 20.8 Monocytes % 10.7 Eosinophils % 6.6 Basophils % 0.7 Nucleated Red Blood Cells % 0.0 Neutrophils # 4.5 Lymphocytes # 1.5 Monocytes # 0.8 Eosinophils # 0.5 Basophils # 0.1 Nucleated Red Blood Cells # 0.0 Sodium Level 142 Potassium Level 4.3 Chloride Level 103 Carbon Dioxide Level 31 Anion Gap 12 Blood Urea Nitrogen 15 Creatinine 0.57 Glucose Level 188 Calcium Level 9.1 Phosphorus Level 4.7 Magnesium Level 1.8 B-Type Natriuretic Peptide 1010 H Thyroid Stimulating Hormone (TSH) 6.420 H Bedside Glucose 180 Medications Medications Current Medications Aspirin (Aspirin) 81 mg DAILY PO Last administered on 04/20/17 08:05; Admin Dose 81 MG; Start 04/19/17 at 09:00 Nitroglycerin (Nitroglycerin (Sl Tab) 0.4 Mg) 1 tab Q5M PRN SL CHEST PAIN; Start 04/17/17 at 13:00 Morphine Sulfate (morphine) 2 mg Q2H PRN IV PAIN LEVEL 4-6 Last administered on 04/20/17 09:34; Admin Dose 2 MG; Start 04/17/17 at 13:00 Ondansetron HCl (Zofran Inj) 4 mg Q6H PRN IV NAUSEA AND/OR VOMITING Last administered on 04/17/17 23:32; Admin Dose 4 MG; Start 04/17/17 at 13:00 Acetaminophen (Tylenol Tab) 650 mg Q6H PRN PO PAIN LEVEL 1-3 OR FEVER; Start 04/17/17 at 13:00 Acetaminophen (Tylenol Supp) 650 mg Q6H PRN [place] PAIN LEVEL 1-3 OR FEVER; Start 04/17/17 at 13:00 Docusate Sodium (Colace) 100 mg Q12H PRN PO CONSTIPATION; Start 04/17/17 at 13: 00 Diagnostic Test (Pha) (Accu-Chek) 1 ea 02 XX Last administered on 04/20/17 01: 32; Admin Dose 1 EA; Start 04/18/17 at 02:00 Alendronate Sodium (Fosamax) 70 mg Q7D PO ; Start 04/21/17 at 06:30 Levothyroxine Sodium (Synthroid) 112 mcg DAILY@06 PO Last administered on 05:47; Admin Dose 112 MCG; Start 04/18/17 at 06:00 Ticagrelor (Brilinta) 90 mg BID PO Last administered on 04/20/17 08:15; Admin Dose 90 MG; Start 04/17/17 at 21:00 Miscellaneous Information 1 ea NOTE XX ; Start 04/17/17 at 14:00 Glucose (Glutose) 15 gm Q15M PRN PO DECREASED GLUCOSE Last administered on 04/19 01:16; Admin Dose 15 GM; Start 04/17/17 at 14:00 Glucose (Glutose) 22.5 gm Q15M PRN PO DECREASED GLUCOSE; Start 04/17/17 at 14: 00 Dextrose (D50w Syringe) 25 ml Q15M PRN IV DECREASED GLUCOSE Last administered on 04/19/17 21:03; Admin Dose 25 ML; Start 04/17/17 at 14:00 Dextrose (D50w Syringe) 50 ml Q15M PRN IV DECREASED GLUCOSE; Start 04/17/17 at 14:00 Glucagon (Glucagen) 1 mg Q15M PRN IM DECREASED GLUCOSE; Start 04/17/17 at 14:00 Glucose (Glutose) 15 gm Q15M PRN BUCCAL DECREASED GLUCOSE; Start 04/17/17 at 14 :00 Promethazine HCl/ Codeine (Phenergan/ Codeine) 5 ml Q4H PRN PO COUGH Last administered on 04/19/17 18:43; Admin Dose 5 ML; Start 04/17/17 at 14:30 Benzonatate (Tessalon) 100 mg TID PO Last administered on 04/20/17 08:05; Admin Dose 100 MG; Start 04/17/17 at 21:00 Atorvastatin Calcium (Lipitor) 40 mg HS PO Last administered on 04/19/17 20:25 ; Admin Dose 40 MG; Start 04/18/17 at 21:00 Gabapentin (Neurontin) 300 mg DAILY PO Last administered on 04/20/17 08:05; Admin Dose 300 MG; Start 04/19/17 at 13:00 Gabapentin (Neurontin) 600 mg HS PO Last administered on 04/19/17 20:24; Admin Dose 600 MG; Start 04/18/17 at 21:00 Metoprolol Tartrate (Lopressor) 12.5 mg BID PO Last administered on 04/20/17 08:05; Admin Dose 12.5 MG; Start 04/18/17 at 21:00 Insulin Glargine (Lantus) 15 unit QHS SC Last administered on 04/19/17 20:27; Admin Dose 15 UNIT; Start 04/19/17 at 21:00 Tiotropium [place] (Spiriva) 1 inh DAILY INH Last administered on 04/20/17 08: 06; Admin Dose 1 INH; Start 04/19/17 at 12:30 Salmeterol Xinafoate/ Fluticasone (Advair 250/50 Diskus) 1 inh BID INH Last administered on 04/20/17t 08:06; Admin Dose 1 INH; Start 04/19/17 at 12:30 TAD HIGGINS NP Apr 20, 2017 10:02
--- NOTE | 2017-04-20 13:41 | CONS ---
Date/Time of Note Date/Time of Note DATE: 04/20/17 TIME: 13:37 Assessment/Plan Assessment/Plan Chief Complaint/Hosp Course IMPRESSION: 1. Chest pain, somewhat atypical at this time for cardiac etiology, but in a patient with a history of recent CABG. Rule out acute coronary syndrome. Negative troponin x3/EF 45% by echo this admit. 2. History of cardiomyopathy with mild decreased left ventricular ejection fraction by most recent echo. 3. Congestive heart failure by chest x-ray. Possible systolic, acute on chronic. 4. Hypertension, under reasonable control. 5. History of PTCA and stent placement prior to CABG to right coronary artery. 6. History of coronary artery disease, status post coronary artery bypass graft surgery receiving DEE to LAD and saphenous vein graft to obtuse marginal , January of 2017. 7. Hypothyroidism-NL FT4 8. DM 9. PVC-occasional Recc: -Tele -Continue asa/statin -Continue low dose BB -Continue bronchodilators -Follow volume status closely -Follow BS with adjustment of insulin as necessary Problems: Consultation Date/Type/Reason Admit Date/Time Apr 17, 2017 at 12:14 Initial Consult Date 04/19/17 Type of Consultation: cardiology Reason for Consultation chest pain Referring Provider: JACKSON KEARNEY [employer] Exam/Review of Systems Vital Signs Vitals Vital Signs Date Time Temp Pulse Resp B/P Pulse Ox O2 Delivery O2 Flow Rate FiO2 04/20/17 12:13 76 04/20/17 11:19 98.6 20 107/53 96 04/19/17 20:35 21 04/17/17 14:27 Room Air Intake and Output 04/19/17 04/19/17 04/20/17 15:00 23:00 07:00 Intake Total 900 ml 750 ml Balance 900 ml 750 ml Exam Review of Systems: CONSTITUTIONAL: No fevers, chills. PULMONARY: No sob CARDIOVASCULAR: No chest pain/palpitations GASTROINTESTINAL: No nausea/vomiting. GENITOURINARY: No hematuria/dysuria. MUSCULOSKELETAL: No myagias/arthalgias. PSYCHIATRIC: The patient denies depression. NEUROLOGIC: No weakness Constitutional: alert Psych: no complaints Head: normocephalic ENMT: mucosa pink and moist Neck: jvd (9 cm water), supple Respiratory: diminished breath sounds (at bases/B) Cardiovascular: regular rate and rhythm Gastrointestinal: non-tender, soft Musculoskeletal: muscle weakness (mild generalized) Extremities: edema (none) 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: other (No focal deficits) Results Result Diagram: 04/20/17 0550 04/20/17 0550 Results 24 hrs Laboratory Tests Test 04/19/17 16:57 04/19/17 20:06 04/19/17 20:35 04/19/17 21:01 Bedside Glucose 221 H 56 L 68 L 142 Test 04/19/17 21:26 04/19/17 22:08 04/20/17 01:31 04/20/17 05:50 Bedside Glucose 198 193 188 White Blood Count 7.4 Red Blood Count 4.19 L Hemoglobin 12.4 Hematocrit 38.3 Mean Corpuscular Volume 91.4 Mean Corpuscular Hemoglobin 29.6 Mean Corpuscular Hemoglobin Concent 32.4 Red Cell Distribution Width 12.9 Platelet Count 292 Mean Platelet Volume 9.4 Neutrophils % 60.8 Lymphocytes % 20.8 Monocytes % 10.7 Eosinophils % 6.6 Basophils % 0.7 Nucleated Red Blood Cells % 0.0 Neutrophils # 4.5 Lymphocytes # 1.5 Monocytes # 0.8 Eosinophils # 0.5 Basophils # 0.1 Nucleated Red Blood Cells # 0.0 Sodium Level 142 Potassium Level 4.3 Chloride Level 103 Carbon Dioxide Level 31 Anion Gap 12 Blood Urea Nitrogen 15 Creatinine 0.57 Glucose Level 188 Calcium Level 9.1 Phosphorus Level 4.7 Magnesium Level 1.8 B-Type Natriuretic Peptide 1010 H Thyroid Stimulating Hormone (TSH) 6.420 H Test 04/20/17 07:45 04/20/17 11:49 Bedside Glucose 180 115 Medications Medications Current Medications Aspirin (Aspirin) 81 mg DAILY PO Last administered on 04/20/17 08:05; Admin Dose 81 MG; Start 04/19/17 at 09:00 Nitroglycerin (Nitroglycerin (Sl Tab) 0.4 Mg) 1 tab Q5M PRN SL CHEST PAIN; Start 04/17/17 at 13:00 Morphine Sulfate (morphine) 2 mg Q2H PRN IV PAIN LEVEL 4-6 Last administered on 04/20/17 09:34; Admin Dose 2 MG; Start 04/17/17 at 13:00 Ondansetron HCl (Zofran Inj) 4 mg Q6H PRN IV NAUSEA AND/OR VOMITING Last administered on 11/3/17at 23:32; Admin Dose 4 MG; Start 04/17/17 at 13:00 Acetaminophen (Tylenol Tab) 650 mg Q6H PRN PO PAIN LEVEL 1-3 OR FEVER; Start 04/17/17 at 13:00 Acetaminophen (Tylenol Supp) 650 mg Q6H PRN [place] PAIN LEVEL 1-3 OR FEVER; Start 04/17/17 at 13:00 Docusate Sodium (Colace) 100 mg Q12H PRN PO CONSTIPATION; Start 04/17/17 at 13: 00 Diagnostic Test (Pha) (Accu-Chek) 1 ea 02 XX Last administered on 04/20/17 01: 32; Admin Dose 1 EA; Start 04/18/17 at 02:00 Alendronate Sodium (Fosamax) 70 mg Q7D PO ; Start 04/21/17 at 06:30 Levothyroxine Sodium (Synthroid) 112 mcg DAILY@06 PO Last administered on 05:47; Admin Dose 112 MCG; Start 04/18/17 at 06:00 Ticagrelor (Brilinta) 90 mg BID PO Last administered on 04/20/17 08:15; Admin Dose 90 MG; Start 04/17/17 at 21:00 Miscellaneous Information 1 ea NOTE XX ; Start 04/17/17 at 14:00 Glucose (Glutose) 15 gm Q15M PRN PO DECREASED GLUCOSE Last administered on 04/19 01:16; Admin Dose 15 GM; Start 04/17/17 at 14:00 Glucose (Glutose) 22.5 gm Q15M PRN PO DECREASED GLUCOSE; Start 04/17/17 at 14: 00 Dextrose (D50w Syringe) 25 ml Q15M PRN IV DECREASED GLUCOSE Last administered on 04/19/17 21:03; Admin Dose 25 ML; Start 04/17/17 at 14:00 Dextrose (D50w Syringe) 50 ml Q15M PRN IV DECREASED GLUCOSE; Start 04/17/17 at 14:00 Glucagon (Glucagen) 1 mg Q15M PRN IM DECREASED GLUCOSE; Start 04/17/17 at 14:00 Glucose (Glutose) 15 gm Q15M PRN BUCCAL DECREASED GLUCOSE; Start 04/17/17 at 14 :00 Promethazine HCl/ Codeine (Phenergan/ Codeine) 5 ml Q4H PRN PO COUGH Last administered on 04/19/17 18:43; Admin Dose 5 ML; Start 04/17/17 at 14:30 Benzonatate (Tessalon) 100 mg TID PO Last administered on 04/20/17 11:58; Admin Dose 100 MG; Start 04/17/17 at 21:00 Atorvastatin Calcium (Lipitor) 40 mg HS PO Last administered on 04/19/17 20:25 ; Admin Dose 40 MG; Start 04/18/17 at 21:00 Gabapentin (Neurontin) 300 mg DAILY PO Last administered on 04/20/17 08:05; Admin Dose 300 MG; Start 04/19/17 at 13:00 Gabapentin (Neurontin) 600 mg HS PO Last administered on 04/19/17 20:24; Admin Dose 600 MG; Start 04/18/17 at 21:00 Metoprolol Tartrate (Lopressor) 12.5 mg BID PO Last administered on 04/20/17 08:05; Admin Dose 12.5 MG; Start 04/18/17 at 21:00 Tiotropium [place] (Spiriva) 1 inh DAILY INH Last administered on 04/20/17 08: 06; Admin Dose 1 INH; Start 04/19/17 at 12:30 Salmeterol Xinafoate/ Fluticasone (Advair 250/50 Diskus) 1 inh BID INH Last administered on 04/20/17 08:06; Admin Dose 1 INH; Start 04/19/17 at 12:30 Insulin Glargine (Lantus) 15 unit QHS SC ; Start 04/20/17 at 21:00 RHONDA PENA 6, 2017 13:40
--- NOTE | 2017-04-20 16:03 | CONS ---
Date/Time of Note Date/Time of Note DATE: 04/20/17 TIME: 15:58 Assessment/Plan Assessment/Plan Problems: (1) Type 1 diabetes mellitus with diabetic polyneuropathy Status: Chronic Comment: hypoglycemic last night likely due to more lantus than necessary combined w/ necessary mealtime coverage. Lantus decreased to 15 units last night. Cont. Novolog doses. 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 Comment: Will order OT to help w/ stretching of hands Consultation Date/Type/Reason Admit Date/Time Apr 17, 2017 at 12:14 Initial Consult Date 04/19/17 Type of Consultation: Endocrinology Reason for Consultation T1DM management Referring Provider: JACKSON KEARNEY NP 24 HR Interval Summary Constitutional: improved, no complaints Detailed Summary Respiratory: no complaints Cardiovascular: no complaints Gastrointestinal: no complaints Genitourinary: no complaints Musculoskeletal: bone/joint pain (fell and struck other knee on way to bathroom this am), restricted range of motion (c/o restricted flexion of hands B ; wonders if related to DM) Neurologic: no complaints Exam/Review of Systems Vital Signs Vitals VS - Last 72 Hours, by Label Date Time Temp Pulse Resp B/P Pulse Ox O2 Delivery O2 Flow Rate FiO2 04/20/17 15:53 98.1 85 20 112/57 94 04/20/17 14:14 74 20 97 21 04/20/17 12:13 76 04/20/17 11:19 98.6 80 20 107/53 96 04/20/17 08:17 79 04/20/17 07:58 98.0 81 20 105/48 97 04/20/17 04:04 85 04/20/17 03:50 98.6 87 20 109/53 95 04/20/17 00:04 90 04/19/17 23:51 98.6 64 19 114/55 96 04/19/17 20:35 97 20 97 21 04/19/17 20:28 100 04/19/17 20:00 98.8 97 19 115/56 97 04/19/17 17:14 98.0 80 18 163/54 98 04/19/17 16:13 91 04/19/17 12:34 98.0 93 18 113/55 98 04/19/17 12:16 91 04/19/17 08:56 98.0 87 18 96/53 98 04/19/17 08:31 92 21 04/19/17 08:31 83 04/19/17 08:30 82 20 92 21 04/19/17 04:17 97.6 86 18 101/49 96 04/19/17 04:00 82 04/19/17 00:08 97.6 78 19 97/59 96 04/19/17 00:00 77 04/18/17 21:00 96 21 04/18/17 20:00 97.9 96 20 145/101 96 04/18/17 20:00 95 04/18/17 16:21 98.0 87 18 93/47 98 04/18/17 16:12 83 04/18/17 13:47 84 20 21 04/18/17 13:47 21 04/18/17 12:18 98.0 63 18 118/56 98 04/18/17 12:15 77 04/18/17 12:06 98.0 75 18 115/53 98 04/18/17 09:10 21 04/18/17 09:10 21 04/18/17 08:17 68 04/18/17 07:58 98.6 73 18 109/55 98 04/18/17 04:15 66 04/18/17 04:08 98.2 72 19 106/58 97 04/18/17 00:14 67 04/17/17 23:53 98.6 73 18 96/52 96 04/17/17 22:00 96 21 04/17/17 20:21 85 22 92 21 04/17/17 20:14 80 04/17/17 20:00 98.9 81 19 105/53 96 04/17/17 17:18 82 18 92 21 04/17/17 16:29 97.8 87 17 90/55 96 04/17/17 16:04 84 Vital Signs Date Time Temp Pulse Resp B/P Pulse Ox O2 Delivery O2 Flow Rate FiO2 04/20/17 15:53 98.1 85 20 112/57 94 04/20/17 14:14 21 04/17/17 14:27 Room Air Intake and Output 04/19/17 04/19/17 04/20/17 15:00 23:00 07:00 Intake Total 900 ml 750 ml Balance 900 ml 750 ml Exam Constitutional: alert, oriented, well developed Respiratory: clear to auscultation, normal air movement Cardiovascular: nl pulses, regular rate and rhythm, No edema, No murmurs/extra sounds, No rub Gastrointestinal: bowel sounds, nl liver, spleen, non-tender, soft, No mass, No rebound or guarding Musculoskeletal: nl extremities to inspection Extremities: normal pulses, No clubbing, No cyanosis, No edema 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: CONDITIONER TUMBLER II-XII intact, nl mental status, nl speech, nl strength Additional Comments Bedside Glucose - 72 Hours Test 04/17/17 17:41 04/17/17 20:11 04/18/17 02:18 04/18/17 07:41 Bedside Glucose 329mg/dL (70-220) H 243mg/dL (70-220) H 82mg/dL (70-220) 55mg/dL (70-220) L Test 04/18/17 08:05 04/18/17 11:34 04/18/17 16:57 04/18/17 20:38 Bedside Glucose 179mg/dL (70-220) 410mg/dL (70-220) *H 290mg/dL (70-220) H 253mg/dL (70-220) H Test 04/19/17 01:11 04/19/17 01:29 04/19/17 01:50 04/19/17 02:05 Bedside Glucose 54mg/dL (70-220) L 68mg/dL (70-220) L 169mg/dL (70-220) 165mg/dL (70-220) Test 04/19/17 07:29 04/19/17 11:48 04/19/17 16:57 04/19/17 20:06 Bedside Glucose 139mg/dL (70-220) 367mg/dL (70-220) H 221mg/dL (70-220) H 56mg/dL (70-220) L Test 04/19/17 20:35 04/19/17 21:01 04/19/17 21:26 04/19/17 22:08 Bedside Glucose 68mg/dL (70-220) L 142mg/dL (70-220) 198mg/dL (70-220) 193mg/dL (70-220) Test 04/20/17 01:31 04/20/17 07:45 04/20/17 11:49 Bedside Glucose 188mg/dL (70-220) 180mg/dL (70-220) 115mg/dL (70-220) Results Result Diagram: 04/20/17 0550 04/20/17 0550 Results 24 hrs Laboratory Tests Test 04/19/17 16:57 04/19/17 20:06 04/19/17 20:35 04/19/17 21:01 Bedside Glucose 221 H 56 L 68 L 142 Test 04/19/17 21:26 04/19/17 22:08 04/20/17 01:31 04/20/17 05:50 Bedside Glucose 198 193 188 White Blood Count 7.4 Red Blood Count 4.19 L Hemoglobin 12.4 Hematocrit 38.3 Mean Corpuscular Volume 91.4 Mean Corpuscular Hemoglobin 29.6 Mean Corpuscular Hemoglobin Concent 32.4 Red Cell Distribution Width 12.9 Platelet Count 292 Mean Platelet Volume 9.4 Neutrophils % 60.8 Lymphocytes % 20.8 Monocytes % 10.7 Eosinophils % 6.6 Basophils % 0.7 Nucleated Red Blood Cells % 0.0 Neutrophils # 4.5 Lymphocytes # 1.5 Monocytes # 0.8 Eosinophils # 0.5 Basophils # 0.1 Nucleated Red Blood Cells # 0.0 Sodium Level 142 Potassium Level 4.3 Chloride Level 103 Carbon Dioxide Level 31 Anion Gap 12 Blood Urea Nitrogen 15 Creatinine 0.57 Glucose Level 188 Calcium Level 9.1 Phosphorus Level 4.7 Magnesium Level 1.8 B-Type Natriuretic Peptide 1010 H Thyroid Stimulating Hormone (TSH) 6.420 H Test 04/20/17 07:45 04/20/17 11:49 Bedside Glucose 180 115 Medications Medications Current Medications Aspirin (Aspirin) 81 mg DAILY PO Last administered on 04/20/17 08:05; Admin Dose 81 MG; Start 04/19/17 at 09:00 Nitroglycerin (Nitroglycerin (Sl Tab) 0.4 Mg) 1 tab Q5M PRN SL CHEST PAIN; Start 04/17/17 at 13:00 Morphine Sulfate (morphine) 2 mg Q2H PRN IV PAIN LEVEL 4-6 Last administered on 04/20/17 09:34; Admin Dose 2 MG; Start 04/17/17 at 13:00 Ondansetron HCl (Zofran Inj) 4 mg Q6H PRN IV NAUSEA AND/OR VOMITING Last administered on 04/17/17 23:32; Admin Dose 4 MG; Start 04/17/17 at 13:00 Acetaminophen (Tylenol Tab) 650 mg Q6H PRN PO PAIN LEVEL 1-3 OR FEVER; Start 04/17/17 at 13:00 Acetaminophen (Tylenol Supp) 650 mg Q6H PRN [place] PAIN LEVEL 1-3 OR FEVER; Start 04/17/17 at 13:00 Docusate Sodium (Colace) 100 mg Q12H PRN PO CONSTIPATION; Start 04/17/17 at 13: 00 Diagnostic Test (Pha) (Accu-Chek) 1 ea 02 XX Last administered on 04/20/17 01: 32; Admin Dose 1 EA; Start 04/18/17 at 02:00 Alendronate Sodium (Fosamax) 70 mg Q7D PO ; Start 04/21/17 at 06:30 Levothyroxine Sodium (Synthroid) 112 mcg DAILY@06 PO Last administered on 05:47; Admin Dose 112 MCG; Start 04/18/17 at 06:00 Ticagrelor (Brilinta) 90 mg BID PO Last administered on 04/20/17 08:15; Admin Dose 90 MG; Start 04/17/17 at 21:00 Miscellaneous Information 1 ea NOTE XX ; Start 04/17/17 at 14:00 Glucose (Glutose) 15 gm Q15M PRN PO DECREASED GLUCOSE Last administered on 04/19 01:16; Admin Dose 15 GM; Start 04/17/17 at 14:00 Glucose (Glutose) 22.5 gm Q15M PRN PO DECREASED GLUCOSE; Start 04/17/17 at 14: 00 Dextrose (D50w Syringe) 25 ml Q15M PRN IV DECREASED GLUCOSE Last administered on 04/19/17 21:03; Admin Dose 25 ML; Start 04/17/17 at 14:00 Dextrose (D50w Syringe) 50 ml Q15M PRN IV DECREASED GLUCOSE; Start 04/17/17 at 14:00 Glucagon (Glucagen) 1 mg Q15M PRN IM DECREASED GLUCOSE; Start 04/17/17 at 14:00 Glucose (Glutose) 15 gm Q15M PRN BUCCAL DECREASED GLUCOSE; Start 04/17/17 at 14 :00 Promethazine HCl/ Codeine (Phenergan/ Codeine) 5 ml Q4H PRN PO COUGH Last administered on 04/19/17 18:43; Admin Dose 5 ML; Start 04/17/17 at 14:30 Benzonatate (Tessalon) 100 mg TID PO Last administered on 04/20/17 11:58; Admin Dose 100 MG; Start 04/17/17 at 21:00 Atorvastatin Calcium (Lipitor) 40 mg HS PO Last administered on 04/19/17 20:25 ; Admin Dose 40 MG; Start 04/18/17 at 21:00 Gabapentin (Neurontin) 300 mg DAILY PO Last administered on 04/20/17 08:05; Admin Dose 300 MG; Start 04/19/17 at 13:00 Gabapentin (Neurontin) 600 mg HS PO Last administered on 04/19/17 20:24; Admin Dose 600 MG; Start 04/18/17 at 21:00 Metoprolol Tartrate (Lopressor) 12.5 mg BID PO Last administered on 04/20/17 08:05; Admin Dose 12.5 MG; Start 04/18/17 at 21:00 Tiotropium [place] (Spiriva) 1 inh DAILY INH Last administered on 04/20/17 08: 06; Admin Dose 1 INH; Start 04/19/17 at 12:30 Salmeterol Xinafoate/ Fluticasone (Advair 250/50 Diskus) 1 inh BID INH Last administered on 04/20/17 08:06; Admin Dose 1 INH; Start 04/19/17 at 12:30 Insulin Glargine (Lantus) 15 unit QHS SC ; Start 04/20/17 at 21:00 DARYL MYERS MD Apr 20, 2017 16:03
[2017-04-20] MEDS: INSULIN GLARGINE [LANtus] 3 ML PEN SC SCH (21:20)
[2017-04-20] MEDS: ATORVASTATIN 40 MG TAB PO SCH (22:09)
[2017-04-21] VITALS (10 sets, daily range): BP systolic 102–124; BP diastolic 40–65; PULSE 72–95; RESP 16–18
[2017-04-21] MEDS: ACCU-CHEK XX SCH (01:38)
[2017-04-21] MEDS: LEVOTHYROXINE 112 MCG TAB PO SCH (06:20)
[2017-04-21] MEDS ORDERED: ALENDRONATE 70 MG TAB PO SCH (06:30)
[2017-04-21 07:15] LABS: BASOPHIL # 0.1 10^3/ul (0.0-0.1); BASOPHILS % 1.1 % (0.0-2.0); EOSINOPHILS # 0.7 10^3/ul (0.0-0.5); EOSINOPHILS % 8.8 % (0.0-7.0); HEMATOCRIT 38.8 % (37.0-47.0); HEMOGLOBIN 12.4 g/dl (12.0-16.0); LYMPHOCYTES # 1.5 10^3/ul (0.8-2.9); LYMPHOCYTES % 20.5 % (15.0-51.0); MEAN CORPUSCULAR HEMOGLOBIN 29.7 pg (29.0-33.0); MEAN CORPUSCULAR VOLUME 92.8 fl (82.0-101.0); MEAN PLATELET VOLUME 9.4 fl (7.4-10.4); MONOCYTE # 0.8 10^3/ul (0.3-0.9); MONOCYTES % 10.3 % (0.0-11.0); NEUTROPHIL # 4.3 10^3/ul (1.6-7.5); PLATELET COUNT 293 10^3/UL (140-415); RED BLOOD COUNT 4.18 10^6/ul (4.20-5.40); WHITE BLOOD COUNT 7.4 10^3/ul (4.8-10.8)
[2017-04-21 07:49] LABS: CREATININE 0.66 mg/dl (0.44-1.00); POTASSIUM 4.4 mmol/L (3.5-5.1)
[2017-04-21] MEDS ORDERED: INSULIN ASPART [NOVOLOG] 3 ML PEN SC SCH (07:55)
[2017-04-21] MEDS: ALBUTEROL/IPRATROPIUM (NEB) 3 ML AMP HHN SCH ×3 (08:00→20:31)
[2017-04-21] MEDS: ASPIRIN 81 MG TAB PO SCH (08:10)
[2017-04-21] MEDS: TICAGRELOR 90 MG TABLET PO SCH ×2 (08:11→21:03)
[2017-04-21] MEDS: INSULIN ASPART [NOVOLOG] 3 ML PEN SC SCH ×7 (08:12→20:46)
[2017-04-21] MEDS: TIOTROPIUM 18 MCG CAPSULE INHA DEV INH SCH (08:13)
[2017-04-21] MEDS: GABAPENTIN 300 MG CAP PO SCH ×2 (08:13→20:49)
[2017-04-21] MEDS: ACETAMINOPHEN 325 MG TAB PO PRN (08:13)
[2017-04-21] MEDS: SALMETEROL/FLUTICASONE 250/50 INHA INH SCH ×2 (08:13→20:48)
[2017-04-21] MEDS: BENZONATATE 100 MG CAP PO SCH ×3 (08:13→20:49)
[2017-04-21] MEDS: METOPROLOL 25 MG TAB PO SCH ×2 (08:18→20:50)
[2017-04-21] MEDS ORDERED: INSULIN GLARGINE [LANtus] 3 ML PEN SC SCH ×2 (09:00)
--- NOTE | 2017-04-21 09:24 | CONS ---
Date/Time of Note Date/Time of Note DATE: 04/21/17 TIME: 09:22 Assessment/Plan Assessment/Plan Additional Assessment/Plan 1. Chest pain, somewhat atypical at this time for cardiac etiology, but in a patient with a history of recent CABG. Rule out acute coronary syndrome. Negative troponin x3/EF 45% by echo this admit. NO INTERVENTION PLANNED NOW. 2. History of cardiomyopathy with mild decreased left ventricular ejection fraction by most recent echo- EF > 35%, no indication for ICD. 3. Congestive heart failure by chest x-ray. Possible systolic, acute on chronic. Con't to keep euvolemic. 4. Hypertension, under reasonable control- on meds now. 5. History of PTCA and stent placement prior to CABG to right coronary artery. 6. History of coronary artery disease, status post coronary artery bypass graft surgery receiving DEE to LAD and saphenous vein graft to obtuse marginal , January of 2017. 7. Hypothyroidism-NL FT4 8. DM 9. PVC-occasional Consultation Date/Type/Reason Admit Date/Time Apr 17, 2017 at 12:14 Initial Consult Date 04/19/17 Type of Consultation: Endocrinology Referring Provider: JACKSON KEARNEY NP 24 HR Interval Summary Free Text/Dictation NO acute events - BP stable - no acute intervention planned. ROS: No fever, no chills, no nausea, no vomiting, no diarrhea/constipation No recent weight changes No chest pain, no PND, no orthopnea No dizziness, blurred vision No thirst, no heat or cold intolerance Exam/Review of Systems Vital Signs Vitals Vital Signs Date Time Temp Pulse Resp B/P Pulse Ox O2 Delivery O2 Flow Rate FiO2 04/21/17 08:00 83 04/21/17 07:22 98.5 18 102/40 96 04/20/17 14:14 21 04/17/17 14:27 Room Air Exam General: WN/WD/NAD, AOx 3 HEENT: Unicetric/atraumatic/EOMI (follows commands) NECK: JVD elevated, no thyromegaly Lymph: no lymphadenopathy HEART: regular with no S3, II/ systolic murmur at apex, PMI left LUNGS: Coarse sounds ABD: soft, NT, ND, +BS : Intact Neuro: non focal SKIN: chronic changes EXT: trace edema Results Result Diagram: 04/21/17 0639 04/21/1739 Results 24 hrs Laboratory Tests Test 04/20/17 11:49 04/20/17 17:32 04/20/17 21:11 04/21/17 06:39 Bedside Glucose 115 194 131 White Blood Count 7.4 Red Blood Count 4.18 L Hemoglobin 12.4 Hematocrit 38.8 Mean Corpuscular Volume 92.8 Mean Corpuscular Hemoglobin 29.7 Mean Corpuscular Hemoglobin Concent 32.0 Red Cell Distribution Width 13.0 Platelet Count 293 Mean Platelet Volume 9.4 Neutrophils % 59.0 Lymphocytes % 20.5 Monocytes % 10.3 Eosinophils % 8.8 H Basophils % 1.1 Nucleated Red Blood Cells % 0.0 Neutrophils # 4.3 Lymphocytes # 1.5 Monocytes # 0.8 Eosinophils # 0.7 H Basophils # 0.1 Nucleated Red Blood Cells # 0.0 Sodium Level 143 Potassium Level 4.4 Chloride Level 105 Carbon Dioxide Level 29 Anion Gap 13 Blood Urea Nitrogen 20 Creatinine 0.66 Glucose Level 132 # Calcium Level 9.0 Test 04/21/17 08:04 Bedside Glucose 163 Medications Medications Current Medications Aspirin (Aspirin) 81 mg DAILY PO Last administered on 04/21/17 08:10; Admin Dose 81 MG; Start 04/19/17 at 09:00 Nitroglycerin (Nitroglycerin (Sl Tab) 0.4 Mg) 1 tab Q5M PRN SL CHEST PAIN; Start 04/17/17 at 13:00 Morphine Sulfate (morphine) 2 mg Q2H PRN IV PAIN LEVEL 4-6 Last administered on 04/20/17 09:34; Admin Dose 2 MG; Start 04/17/17 at 13:00 Ondansetron HCl (Zofran Inj) 4 mg Q6H PRN IV NAUSEA AND/OR VOMITING Last administered on 04/17/17 23:32; Admin Dose 4 MG; Start 04/17/17 at 13:00 Acetaminophen (Tylenol Tab) 650 mg Q6H PRN PO PAIN LEVEL 1-3 OR FEVER Last administered on 04/21/17 08:13; Admin Dose 650 MG; Start 04/17/17 at 13:00 Acetaminophen (Tylenol Supp) 650 mg Q6H PRN [place] PAIN LEVEL 1-3 OR FEVER; Start 04/17/17 at 13:00 Docusate Sodium (Colace) 100 mg Q12H PRN PO CONSTIPATION; Start 04/17/17 at 13: 00 Diagnostic Test (Pha) (Accu-Chek) 1 ea 02 XX Last administered on 04/20/17 01: 32; Admin Dose 1 EA; Start 04/18/17 at 02:00 Alendronate Sodium (Fosamax) 70 mg Q7D PO Last administered on 04/21/17 06:19 ; Admin Dose 70 MG; Start 04/21/17 at 06:30 Levothyroxine Sodium (Synthroid) 112 mcg DAILY@06 PO Last administered on 06:20; Admin Dose 112 MCG; Start 04/18/17 at 06:00 Ticagrelor (Brilinta) 90 mg BID PO Last administered on 04/21/17 08:11; Admin Dose 90 MG; Start 04/17/17 at 21:00 Miscellaneous Information 1 ea NOTE XX ; Start 04/17/17 at 14:00 Glucose (Glutose) 15 gm Q15M PRN PO DECREASED GLUCOSE Last administered on 04/19 01:16; Admin Dose 15 GM; Start 04/17/17 at 14:00 Glucose (Glutose) 22.5 gm Q15M PRN PO DECREASED GLUCOSE; Start 04/17/17 at 14: 00 Dextrose (D50w Syringe) 25 ml Q15M PRN IV DECREASED GLUCOSE Last administered on 04/19/17 21:03; Admin Dose 25 ML; Start 04/17/17 at 14:00 Dextrose (D50w Syringe) 50 ml Q15M PRN IV DECREASED GLUCOSE; Start 04/17/17 at 14:00 Glucagon (Glucagen) 1 mg Q15M PRN IM DECREASED GLUCOSE; Start 04/17/17 at 14:00 Glucose (Glutose) 15 gm Q15M PRN BUCCAL DECREASED GLUCOSE; Start 04/17/17 at 14 :00 Promethazine HCl/ Codeine (Phenergan/ Codeine) 5 ml Q4H PRN PO COUGH Last administered on 04/19/17 18:43; Admin Dose 5 ML; Start 04/17/17 at 14:30 Benzonatate (Tessalon) 100 mg TID PO Last administered on 04/21/17 08:13; Admin Dose 100 MG; Start 04/17/17 at 21:00 Atorvastatin Calcium (Lipitor) 40 mg HS PO Last administered on 04/20/17 22:09 ; Admin Dose 40 MG; Start 04/18/17 at 21:00 Gabapentin (Neurontin) 300 mg DAILY PO Last administered on 04/21/17 08:13; Admin Dose 300 MG; Start 04/19/17 at 13:00 Gabapentin (Neurontin) 600 mg HS PO Last administered on 04/20/17 22:10; Admin Dose 600 MG; Start 04/18/17 at 21:00 Metoprolol Tartrate (Lopressor) 12.5 mg BID PO Last administered on 04/20/17 22:10; Admin Dose 12.5 MG; Start 04/18/17 at 21:00 Tiotropium [place] (Spiriva) 1 inh DAILY INH Last administered on 04/21/17 08: 13; Admin Dose 1 INH; Start 04/19/17 at 12:30 Salmeterol Xinafoate/ Fluticasone (Advair 250/50 Diskus) 1 inh BID INH Last administered on 04/21/17 08:13; Admin Dose 1 INH; Start 04/19/17 at 12:30 Insulin Glargine (Lantus) 15 unit QHS SC Last administered on 04/20/17 21:20; Admin Dose 15 UNIT; Start 04/20/17 at 21:00 ARTIE MARADIAGA MD Apr 21, 2017 09:24
--- NOTE | 2017-04-21 09:26 | PN ---
Date/Time of Note Date/Time of Note DATE: 04/21/17 TIME: 09:26 Assessment/Plan VTE Prophylaxis VTE Prophylaxis Intervention: ambulation Lines/Catheters IV [facility]from [facility] Peripheral IV Urinary Cath still in place: No Assessment/Plan Chief Complaint/Hosp Course 56-year-old female with a past medical history coronary artery disease, status post CABG in January 2017, presented to the emergency room with complaints of nonproductive cough and chest pain 3 day duration. 1. Chest pain, likely costochondritis with persistent cough. Improved. ACS ruled out. 2. Status post possible URI. 3. Coronary artery disease, with history of CABG with DEE to LAD and saphenous vein graft to obtuse marginal in January 2017. -Continue outpatient medical management. 4. Type 1 diabetes mellitus. With better glycemic trends. - Continue sliding scale insulin along with pre-meal insulin and basal insulin. - Hemoglobin A1c 8.3. Being followed by endocrinology. 5. Neck mass with dysphagia. - Patient currently tolerating a regular consistency diet. Outpatient ENT follow -up. 6. Hypothyroidism. - Continue Synthroid. 7. Osteoporosis. - On bisphosphonates. 8. Ischemic cardiomyopathy with ejection fraction of 45% as per 2D echocardiogram. - Continue beta-blockers. 9. COPD. No evidence of exacerbation. -Continue EDGARDO/LABA 10. Dyslipidemia. Continue statins. 11. History of pleural effusion. Currently stable. Plan: PT eval in house as patient with fall histories inhouse and outpatient. DC planning after PT eval. Patient was seen in collaboration with . Problems: Subjective 24 Hr Interval Summary Free Text/Dictation Patient doing well. She denied any chest pain or other difficulties at this time. Exam/Review of Systems Vital Signs Vitals Vital Signs Date Time Temp Pulse Resp B/P Pulse Ox O2 Delivery O2 Flow Rate FiO2 04/21/17 08:00 83 04/21/17 07:22 98.5 18 102/40 96 04/20/17 14:14 21 04/17/17 14:27 Room Air Exam General: Chronically ill looking female, who appears older than her actual age, not in any acute distress . HEENT: Normocephalic, Atraumatic, No laceration or hematoma; Eyes: PEERL, Conjunctiva clear, Anicteric sclera Neck: Supple without any lymphadenopathy, nontender, no JVD, no carotid bruits, trachea midline, no thyromegaly Cardiac: S1, S2 auscultated, regular rhythm and rate, no mumurs or gallop Pulmonary: With nonproductive cough. Normal respiratory effort. Chest clear to auscultation bilaterally, no adventitious breath sounds GI: Abdomen normal to inspection. Soft, non tender, non- distended, no masses, no rebound tenderness or guarding. Bowel sounds active on all four quadrants Genitourinary: Deferred Extremities: Pain with right knee movement. No cyanosis, clubbing, or edema. Pulses [2+] bilaterally. Full ROM on all four extremities. No focal weakness appreciated. Neurologic: Alert to person, place, time, and situation. Affect appropriate, intact sensation. Skin: Clean,dry, and intact. No ecchymosis, no rashes, or lesions Results Result Diagram: 04/21/17 0639 04/21/17 0639 Results 24 hrs Laboratory Tests Test 04/20/17 11:49 04/20/17 17:32 04/20/17 21:11 04/21/17 06:39 Bedside Glucose 115 194 131 White Blood Count 7.4 Red Blood Count 4.18 L Hemoglobin 12.4 Hematocrit 38.8 Mean Corpuscular Volume 92.8 Mean Corpuscular Hemoglobin 29.7 Mean Corpuscular Hemoglobin Concent 32.0 Red Cell Distribution Width 13.0 Platelet Count 293 Mean Platelet Volume 9.4 Neutrophils % 59.0 Lymphocytes % 20.5 Monocytes % 10.3 Eosinophils % 8.8 H Basophils % 1.1 Nucleated Red Blood Cells % 0.0 Neutrophils # 4.3 Lymphocytes # 1.5 Monocytes # 0.8 Eosinophils # 0.7 H Basophils # 0.1 Nucleated Red Blood Cells # 0.0 Sodium Level 143 Potassium Level 4.4 Chloride Level 105 Carbon Dioxide Level 29 Anion Gap 13 Blood Urea Nitrogen 20 Creatinine 0.66 Glucose Level 132 # Calcium Level 9.0 Test 04/21/17 08:04 Bedside Glucose 163 Medications Medications Current Medications Aspirin (Aspirin) 81 mg DAILY PO Last administered on 04/21/17t 08:10; Admin Dose 81 MG; Start 04/19/17 at 09:00 Nitroglycerin (Nitroglycerin (Sl Tab) 0.4 Mg) 1 tab Q5M PRN SL CHEST PAIN; Start 04/17/17 at 13:00 Morphine Sulfate (morphine) 2 mg Q2H PRN IV PAIN LEVEL 4-6 Last administered on 04/20/17 09:34; Admin Dose 2 MG; Start 04/17/17 at 13:00 Ondansetron HCl (Zofran Inj) 4 mg Q6H PRN IV NAUSEA AND/OR VOMITING Last administered on 04/17/17 23:32; Admin Dose 4 MG; Start 04/17/17 at 13:00 Acetaminophen (Tylenol Tab) 650 mg Q6H PRN PO PAIN LEVEL 1-3 OR FEVER Last administered on 04/21/17 08:13; Admin Dose 650 MG; Start 04/17/17 at 13:00 Acetaminophen (Tylenol Supp) 650 mg Q6H PRN [place] PAIN LEVEL 1-3 OR FEVER; Start 04/17/17 at 13:00 Docusate Sodium (Colace) 100 mg Q12H PRN PO CONSTIPATION; Start 04/17/17 at 13: 00 Diagnostic Test (Pha) (Accu-Chek) 1 ea 02 XX Last administered on 04/20/17 01: 32; Admin Dose 1 EA; Start 04/18/17 at 02:00 Alendronate Sodium (Fosamax) 70 mg Q7D PO Last administered on 04/21/17 06:19 ; Admin Dose 70 MG; Start 04/21/17 at 06:30 Levothyroxine Sodium (Synthroid) 112 mcg DAILY@06 PO Last administered on 06:20; Admin Dose 112 MCG; Start 04/18/17 at 06:00 Ticagrelor (Brilinta) 90 mg BID PO Last administered on 04/21/17 08:11; Admin Dose 90 MG; Start 04/17/17 at 21:00 Miscellaneous Information 1 ea NOTE XX ; Start 04/17/17 at 14:00 Glucose (Glutose) 15 gm Q15M PRN PO DECREASED GLUCOSE Last administered on 04/19 01:16; Admin Dose 15 GM; Start 04/17/17 at 14:00 Glucose (Glutose) 22.5 gm Q15M PRN PO DECREASED GLUCOSE; Start 04/17/17 at 14: 00 Dextrose (D50w Syringe) 25 ml Q15M PRN IV DECREASED GLUCOSE Last administered on 04/19/17 21:03; Admin Dose 25 ML; Start 04/17/17 at 14:00 Dextrose (D50w Syringe) 50 ml Q15M PRN IV DECREASED GLUCOSE; Start 04/17/17 at 14:00 Glucagon (Glucagen) 1 mg Q15M PRN IM DECREASED GLUCOSE; Start 04/17/17 at 14:00 Glucose (Glutose) 15 gm Q15M PRN BUCCAL DECREASED GLUCOSE; Start 04/17/17 at 14 :00 Promethazine HCl/ Codeine (Phenergan/ Codeine) 5 ml Q4H PRN PO COUGH Last administered on 04/19/17 18:43; Admin Dose 5 ML; Start 04/17/17 at 14:30 Benzonatate (Tessalon) 100 mg TID PO Last administered on 04/21/17 08:13; Admin Dose 100 MG; Start 04/17/17 at 21:00 Atorvastatin Calcium (Lipitor) 40 mg HS PO Last administered on 04/20/17 22:09 ; Admin Dose 40 MG; Start 04/18/17 at 21:00 Gabapentin (Neurontin) 300 mg DAILY PO Last administered on 04/21/17 08:13; Admin Dose 300 MG; Start 04/19/17 at 13:00 Gabapentin (Neurontin) 600 mg HS PO Last administered on 04/20/17 22:10; Admin Dose 600 MG; Start 04/18/17 at 21:00 Metoprolol Tartrate (Lopressor) 12.5 mg BID PO Last administered on 04/20/17 22:10; Admin Dose 12.5 MG; Start 04/18/17 at 21:00 Tiotropium [place] (Spiriva) 1 inh DAILY INH Last administered on 04/21/17 08: 13; Admin Dose 1 INH; Start 04/19/17 at 12:30 Salmeterol Xinafoate/ Fluticasone (Advair 250/50 Diskus) 1 inh BID INH Last administered on 04/21/17 08:13; Admin Dose 1 INH; Start 04/19/17 at 12:30 Insulin Glargine (Lantus) 15 unit QHS SC Last administered on 04/20/17 21:20; Admin Dose 15 UNIT; Start 04/20/17 at 21:00 TAD HIGGINS NP Apr 21, 2017 09:26
--- NOTE | 2017-04-21 14:51 | RADRPT ---
Vent Rate: 67 bpm RR Interval: 0 msec CA Interval: 162 msec QRS Duration: 80 msec QT Interval: 416 msec QTC Interval: 439 msec P-R-T Anderson: 7 - 34 - 79 degrees Normal sinus rhythm Low voltage QRS Possible Inferior infarct , age undetermined Cannot rule out Anteroseptal infarct , age undetermined Abnormal ECG Electronically Signed By: Camden Hernandez [id number]
--- NOTE | 2017-04-21 17:13 | CONS ---
Date/Time of Note Date/Time of Note DATE: 04/21/17 TIME: 17:11 Assessment/Plan Assessment/Plan Problems: (1) Type 1 diabetes mellitus with diabetic polyneuropathy Status: Chronic Comment: Excellent glycemic control. Cont. current insulin regimen. Consultation Date/Type/Reason Admit Date/Time Apr 17, 2017 at 12:14 Initial Consult Date 04/19/17 Type of Consultation: Endocrinology Reason for Consultation T1DM management Referring Provider: JACKSON KEARNEY VB NET DEVELOPER 24 HR Interval Summary Constitutional: improved, no complaints Detailed Summary Respiratory: cough Cardiovascular: chest pain Gastrointestinal: no complaints Genitourinary: no complaints Musculoskeletal: bone/joint pain (B knee pain) Neurologic: no complaints Exam/Review of Systems Vital Signs Vitals VS - Last 72 Hours, by Label Date Time Temp Pulse Resp B/P Pulse Ox O2 Delivery O2 Flow Rate FiO2 04/21/17 16:00 83 04/21/17 15:36 98.1 79 18 109/55 96 04/21/17 13:12 82 18 96 04/21/17 12:00 75 04/21/17 12:00 98.2 79 18 124/65 95 04/21/17 08:00 83 04/21/17 07:22 98.5 82 18 102/40 96 04/21/17 04:37 98.5 60 16 105/51 97 04/21/17 04:04 72 04/21/17 00:25 95 04/20/17 23:08 98.5 74 18 116/56 96 04/20/17 20:04 85 04/20/17 20:00 100.4 83 18 111/54 95 04/20/17 16:12 88 04/20/17 15:53 98.1 85 20 112/57 94 04/20/17 14:14 74 20 97 21 04/20/17 12:13 76 04/20/17 11:19 98.6 80 20 107/53 96 04/20/17 08:17 79 04/20/17 07:58 98.0 81 20 105/48 97 04/20/17 04:04 85 04/20/17 03:50 98.6 87 20 109/53 95 04/20/17 00:04 90 04/19/17 23:51 98.6 64 19 114/55 96 04/19/17 20:35 97 20 97 21 04/19/17 20:28 100 04/19/17 20:00 98.8 97 19 115/56 97 04/19/17 17:14 98.0 80 18 163/54 98 04/19/17 16:13 91 04/19/17 12:34 98.0 93 18 113/55 98 04/19/17 12:16 91 04/19/17 08:56 98.0 87 18 96/53 98 04/19/17 08:31 92 21 04/19/17 08:31 83 04/19/17 08:30 82 20 92 21 04/19/17 04:17 97.6 86 18 101/49 96 04/19/17 04:00 82 04/19/17 00:08 97.6 78 19 97/59 96 04/19/17 00:00 77 04/18/17 21:00 96 21 04/18/17 20:00 97.9 96 20 145/101 96 04/18/17 20:00 95 Vital Signs Date Time Temp Pulse Resp B/P Pulse Ox O2 Delivery O2 Flow Rate FiO2 04/21/17 16:00 83 04/21/17 15:36 98.1 18 109/55 96 04/20/17 14:14 21 04/17/17 14:27 Room Air Exam Constitutional: alert, oriented, well developed Psych: depression Respiratory: clear to auscultation, normal air movement Cardiovascular: nl pulses, regular rate and rhythm, No edema, No murmurs/extra sounds, No rub Gastrointestinal: bowel sounds, nl liver, spleen, non-tender, soft, No mass, No rebound or guarding Musculoskeletal: nl extremities to inspection Extremities: normal pulses, No clubbing, No cyanosis, No edema 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: SOFTWO[employer] FALLER II-XII intact, nl mental status, nl speech, nl strength Additional Comments Bedside Glucose - 72 Hours Test 04/18/17 20:38 04/19/17 01:11 04/19/17 01:29 04/19/17 01:50 Bedside Glucose 253mg/dL (70-220) H 54mg/dL (70-220) L 68mg/dL (70-220) L 169mg/dL (70-220) Test 04/19/17 02:05 04/19/17 07:29 04/19/17 11:48 04/19/17 16:57 Bedside Glucose 165mg/dL (70-220) 139mg/dL (70-220) 367mg/dL (70-220) H 221mg/dL (70-220) H Test 04/19/17 20:06 04/19/17 20:35 04/19/17 21:01 04/19/17 21:26 Bedside Glucose 56mg/dL (70-220) L 68mg/dL (70-220) L 142mg/dL (70-220) 198mg/dL (70-220) Test 04/19/17 22:08 04/20/17 01:31 04/20/17 07:45 04/20/17 11:49 Bedside Glucose 193mg/dL (70-220) 188mg/dL (70-220) 180mg/dL (70-220) 115mg/dL (70-220) Test 04/20/17 17:32 04/20/17 21:11 04/21/17 08:04 04/21/17 10:33 Bedside Glucose 194mg/dL (70-220) 131mg/dL (70-220) 163mg/dL (70-220) 185mg/dL (70-220) Test 04/21/17 12:11 Bedside Glucose 152mg/dL (70-220) Results Result Diagram: 04/21/17 0639 04/21/17 0639 Results 24 hrs Laboratory Tests Test 04/20/17 17:32 04/20/17 21:11 04/21/17 06:39 04/21/17 08:04 Bedside Glucose 194 131 163 White Blood Count 7.4 Red Blood Count 4.18 L Hemoglobin 12.4 Hematocrit 38.8 Mean Corpuscular Volume 92.8 Mean Corpuscular Hemoglobin 29.7 Mean Corpuscular Hemoglobin Concent 32.0 Red Cell Distribution Width 13.0 Platelet Count 293 Mean Platelet Volume 9.4 Neutrophils % 59.0 Lymphocytes % 20.5 Monocytes % 10.3 Eosinophils % 8.8 H Basophils % 1.1 Nucleated Red Blood Cells % 0.0 Neutrophils # 4.3 Lymphocytes # 1.5 Monocytes # 0.8 Eosinophils # 0.7 H Basophils # 0.1 Nucleated Red Blood Cells # 0.0 Sodium Level 143 Potassium Level 4.4 Chloride Level 105 Carbon Dioxide Level 29 Anion Gap 13 Blood Urea Nitrogen 20 Creatinine 0.66 Glucose Level 132 # Calcium Level 9.0 Test 04/21/17 10:33 04/21/17 12:11 Bedside Glucose 185 152 Medications Medications Current Medications Aspirin (Aspirin) 81 mg DAILY PO Last administered on 04/21/17 08:10; Admin Dose 81 MG; Start 04/19/17 at 09:00 Nitroglycerin (Nitroglycerin (Sl Tab) 0.4 Mg) 1 tab Q5M PRN SL CHEST PAIN; Start 04/17/17 at 13:00 Morphine Sulfate (morphine) 2 mg Q2H PRN IV PAIN LEVEL 4-6 Last administered on 04/20/17 09:34; Admin Dose 2 MG; Start 04/17/17 at 13:00 Ondansetron HCl (Zofran Inj) 4 mg Q6H PRN IV NAUSEA AND/OR VOMITING Last administered on 04/17/17 23:32; Admin Dose 4 MG; Start 04/17/17 at 13:00 Acetaminophen (Tylenol Tab) 650 mg Q6H PRN PO PAIN LEVEL 1-3 OR FEVER Last administered on 04/21/17 08:13; Admin Dose 650 MG; Start 04/17/17 at 13:00 Acetaminophen (Tylenol Supp) 650 mg Q6H PRN [place] PAIN LEVEL 1-3 OR FEVER; Start 04/17/17 at 13:00 Docusate Sodium (Colace) 100 mg Q12H PRN PO CONSTIPATION; Start 04/17/17 at 13: 00 Diagnostic Test (Pha) (Accu-Chek) 1 ea 02 XX Last administered on 04/20/17 01: 32; Admin Dose 1 EA; Start 04/18/17 at 02:00 Alendronate Sodium (Fosamax) 70 mg Q7D PO Last administered on 04/21/17 06:19 ; Admin Dose 70 MG; Start 04/21/17 at 06:30 Levothyroxine Sodium (Synthroid) 112 mcg DAILY@06 PO Last administered on 06:20; Admin Dose 112 MCG; Start 04/18/17 at 06:00 Ticagrelor (Brilinta) 90 mg BID PO Last administered on 04/21/17 08:11; Admin Dose 90 MG; Start 04/17/17 at 21:00 Miscellaneous Information 1 ea NOTE XX ; Start 11/3/17 at 14:00 Glucose (Glutose) 15 gm Q15M PRN PO DECREASED GLUCOSE Last administered on 04/19 01:16; Admin Dose 15 GM; Start 04/17/17 at 14:00 Glucose (Glutose) 22.5 gm Q15M PRN PO DECREASED GLUCOSE; Start 04/17/17 at 14: 00 Dextrose (D50w Syringe) 25 ml Q15M PRN IV DECREASED GLUCOSE Last administered on 04/19/17 21:03; Admin Dose 25 ML; Start 04/17/17 at 14:00 Dextrose (D50w Syringe) 50 ml Q15M PRN IV DECREASED GLUCOSE; Start 04/17/17 at 14:00 Glucagon (Glucagen) 1 mg Q15M PRN IM DECREASED GLUCOSE; Start 04/17/17 at 14:00 Glucose (Glutose) 15 gm Q15M PRN BUCCAL DECREASED GLUCOSE; Start 04/17/17 at 14 :00 Promethazine HCl/ Codeine (Phenergan/ Codeine) 5 ml Q4H PRN PO COUGH Last administered on 04/19/17 18:43; Admin Dose 5 ML; Start 04/17/17 at 14:30 Benzonatate (Tessalon) 100 mg TID PO Last administered on 04/21/17 12:27; Admin Dose 100 MG; Start 04/17/17 at 21:00 Atorvastatin [place] (Lipitor) 40 mg HS PO Last administered on 04/20/17 22:09 ; Admin Dose 40 MG; Start 04/18/17 at 21:00 Gabapentin (Neurontin) 300 mg DAILY PO Last administered on 04/21/17 08:13; Admin Dose 300 MG; Start 04/19/17 at 13:00 Gabapentin (Neurontin) 600 mg HS PO Last administered on 04/20/17 22:10; Admin Dose 600 MG; Start 04/18/17 at 21:00 Metoprolol Tartrate (Lopressor) 12.5 mg BID PO Last administered on 04/20/17 22:10; Admin Dose 12.5 MG; Start 04/18/17 at 21:00 Tiotropium [place] (Spiriva) 1 inh DAILY INH Last administered on 04/21/17 08: 13; Admin Dose 1 INH; Start 04/19/17 at 12:30 Salmeterol Xinafoate/ Fluticasone (Advair 250/50 Diskus) 1 inh BID INH Last administered on 04/21/17 08:13; Admin Dose 1 INH; Start 04/19/17 at 12:30 Insulin Glargine (Lantus) 15 unit QHS SC Last administered on 04/20/17 21:20; Admin Dose 15 UNIT; Start 04/20/17 at 21:00 DARYL MYERS MD Apr 21, 2017 17:13
[2017-04-21] MEDS: PROMETHAZINE/CODEINE 5ML CUP PO PRN (18:10)
[2017-04-21] MEDS: ATORVASTATIN 40 MG TAB PO SCH (20:48)
[2017-04-21] MEDS: INSULIN GLARGINE [LANtus] 3 ML PEN SC SCH (21:03)
[2017-04-21] MEDS: morphine 2 MG INJ IV PRN (23:22)
[2017-04-22] VITALS (10 sets, daily range): BP systolic 101–128; BP diastolic 51–59; PULSE 77–85; RESP 16–18
[2017-04-22] MEDS: ACCU-CHEK XX SCH (01:43)
[2017-04-22] MEDS: LEVOTHYROXINE 112 MCG TAB PO SCH (06:45)
[2017-04-22] MEDS: ALBUTEROL/IPRATROPIUM (NEB) 3 ML AMP HHN SCH ×2 (08:00→13:07)
[2017-04-22] MEDS: INSULIN ASPART [NOVOLOG] 3 ML PEN SC SCH ×6 (08:24→18:10)
[2017-04-22] MEDS: SALMETEROL/FLUTICASONE 250/50 INHA INH SCH (08:25)
[2017-04-22] MEDS: GABAPENTIN 300 MG CAP PO SCH (08:26)
[2017-04-22] MEDS: ASPIRIN 81 MG TAB PO SCH (08:26)
[2017-04-22] MEDS: TIOTROPIUM 18 MCG CAPSULE INHA DEV INH SCH (08:26)
[2017-04-22] MEDS: ACETAMINOPHEN 325 MG TAB PO PRN (08:27)
[2017-04-22] MEDS: METOPROLOL 25 MG TAB PO SCH (08:29)
[2017-04-22] MEDS: BENZONATATE 100 MG CAP PO SCH ×2 (08:29→12:08)
[2017-04-22] MEDS: TICAGRELOR 90 MG TABLET PO SCH (08:31)
--- NOTE | 2017-04-22 11:18 | PDOCDIS ---
Discharge Instructions CONDITION Patient Condition: Stable HOME CARE INSTRUCTIONS: Special Diet: Carb Control FOLLOW UP/APPOINTMENTS Follow-up Plan 1.Follow up with primary care physician in 1 week If you don't have one please let someone know, we can give you resources that may help you pick one. You may also call your insurance company to assign one to you. Review your medication list with your nurse before leaving and if you need new prescriptions please let your nurse know. I may have made changes to your home medications or given you new prescriptions, please let your primary doctor know as well. Stay compliant with your medications and report any side effects to your PCP or pharmacist. Return to the ER if you have any concerns and cannot reach your doctors or call your insurance company, they usually have a nurse that can help you. 2. Call 911 or go to the nearest emergency room if experiencing loss of consciousness, dizziness, chest pain, shortness of breath, vomiting/abdominal pain, speech difficulties, motor weakness or any unusual symptoms. 3.Follow-up with (assistant infant teacher) in 2weeks [id number] [place] [address] Office TAD HIGGINS NP Apr 22, 2017 11:18
[2017-04-22] MEDS ORDERED: ATOR40TA68 PO (11:24)
[2017-04-22] MEDS ORDERED: Promethazine/Codeine Syp PO (11:24)
[2017-04-22] MEDS ORDERED: ADV25050 INH (11:24)
[2017-04-22] MEDS ORDERED: BENZ-5 PO (11:24)
[2017-04-22] MEDS ORDERED: TIOT18CA INH (11:24)
[2017-04-22] MEDS ORDERED: ALBU8.5H3 INH (11:24)
--- NOTE | 2017-04-22 11:25 | DS ---
Date/Time of Note Date/Time of Note DATE: 04/22/17 TIME: 11:25 Discharge Summary Admission/Discharge Info Admit Date/Time Apr 17, 2017 at 12:14 Discharge Date/Time Discharge Diagnosis 1. Chest pain, likely costochondritis with persistent cough. Resolved. 2. Status post possible URI. 3. Coronary artery disease, with history of CABG with DEE to LAD and saphenous vein graft to obtuse marginal in January 2017. 4. Type 1 diabetes mellitus. 5. Neck mass with dysphagia. 6. Hypothyroidism. 7. Osteoporosis. 8. Ischemic cardiomyopathy with ejection fraction of 45% as per 2D echocardiogram. 9. COPD. 10. Dyslipidemia. 11. History of pleural effusion. Patient Condition: Stable Consults ,Endocrinology ,Cards Procedures 04/17/2017. Chest x-ray. IMPRESSION: 1. Interval elevation of the left hemidiaphragm with left lower lobe compressive atelectasis and suspected underlying pleural effusion. 2. Resolved pulmonary vascular congestion and decreased right base atelectasi Hx of Present Illness This is a 56-year-old female with a past medical history of coronary artery disease, status post CABG 01/27/2017, toxic metabolic encephalopathy, atrial fibrillation, CHF, pleural effusion with a history of thoracentesis, type 2 diabetes, neck mass, chronic bronchitis, respiratory failure, COPD, hypothyroidism, chronic anemia, who presented to the emergency room with complaints of nonproductive cough for a week duration followed by chest pain started on Thursday. Her pain is mostly substernal and reproducible. Patient denied any palpitation or shortness of breath. Apparently, patient also reported a fall episode on her left knee on Thursday. Patient denied any loss of consciousness, dizziness, headache, vision changes, speech difficulties, shortness of breath, nausea, vomiting, abdominal pain, numbness/tingling or other constitutional symptoms. She reported left knee pain. In the emergency room, initial labs within acceptable range except for elevated blood glucose 243. Initial troponin negative. EKG without any acute ST or T- wave changes. Vital signs within acceptable range. A chest x-ray with some pleural effusion which remained stable without any significant changes from prior study . There was improved appearance of pulmonary vascular congestion from prior study. Patient was admitted to rule out acute coronary syndrome. Hospital Course ACS ruled out with serial troponins and EKG. Patient chest pain was most likely secondary to costochondritis with underlying persistent cough with possible URI and COPD. This was treated with cough suppressants, EDGARDO PRN with addition of LABA. Patient was continued on her home medications for underlying comorbid conditions. Patient was also evaluated by shoe sprayer for underlying lipid blood glucose with type 1 diabetes. Insulin was adjusted according to the needs. Patient was able to tolerate diet and activities well. She was also evaluated by physical therapy. Patient was able to tolerate outpatient without assist. At this time, there is no further inpatient workup indicated and patient is medically stable for discharge with outpatient follow- up. Disposition: Patient will be discharged home with home health for safety evaluation. Her prescriptions were faxed to preferred pharmacy. Patient was instructed to follow-up with primary care and otm consultant as outpatient. Patient verbalized discharge instructions. Approximately 60 minutes was spent in coordinating the discharge on this patient. Patient was seen in collaboration with . Home Meds Active Scripts Albuterol Sulfate* (Proair HFA*) 8.5 Gm Hfa.aer.ad, 2 PUFF INH Q6H Y for WHEEZING AND SOB, #1 INHALER Prov:HIGGINSTAD V. PASSENGER SCREENER 04/22/17 Salmeterol Xinaf/Fluticasone* (Advair*) 250-50 Diskus Inhaler, 1 INH INH BID, # 1 INHALER Prov:HIGGINSTAD V. PASSENGER SCREENER 04/22/17 [Promethazine/Codeine Syp] 5 ML SYRUP No Conflict Check, 5 ML PO Q4H Y for COUGH , #1 BOTTLE 250 ml bottle Prov:HIGGINS,TAD V. PASSENGER SCREENER 04/22/17 Benzonatate* (Benzonatate*) 100 Mg Capsule, 100 MG PO TID, #90 CAP Prov:HIGGINS,TAD V. PASSENGER SCREENER 04/22/17 Atorvastatin* (Atorvastatin*) 40 Mg Tablet, 40 MG PO HS, #30 TAB Prov:HIGGINS,TAD V. PASSENGER SCREENER 04/22/17 Tiotropium [place]* (Spiriva*) 18 Mcg Cap.w.dev, 1 INH INH DAILY, #1 INHALER Prov:HIGGINS,TAD V. PASSENGER SCREENER 04/22/17 Levothyroxine Sodium* (Levothyroxine Sodium*) 112 Mcg Tablet, 112 MCG PO DAILY@ 06 for 30 Days, #30 TAB Prov:ROBEL PETTY MD 02/05/17 Aspirin* (Aspirin* EC) 81 Mg Tabec, 81 MG PO DAILY for 30 Days, #30 Prov:TAD POPE 08/29/16 Ticagrelor* (Brilinta*) 90 Mg Tablet, 90 MG PO BID for 30 Days, #60 Prov:TAD POPE 08/29/16 Gabapentin* (Gabapentin*) 300 Mg Capsule, 300 MG PO TID for 30 Days, CAP Prov:TAD POPE 08/29/16 Reported Medications Metoprolol Tartrate* (Lopressor*) 25 Mg Tab, 25 MG PO BID, #60 TAB 04/17/17 Furosemide* (Lasix*) 20 Mg Tablet, 20 MG PO DAILY, TAB 04/17/17 Insulin Lispro (Humalog Kwikpen) 200 Unit/1 Ml Insuln.pen, 0 SQ AC MEALS, EA SLIDING SCALE 04/17/17 Insulin Glargine* (Lantus*) 100 Unit/Ml Soln, 25 UNIT SC QHS, #1 VIAL 04/17/17 Alendronate Sodium* (Fosamax*) 70 Mg Tablet, 70 MG PO Q7D, #4 TAB 08/19/16 Discontinued Scripts Insulin Aspart* (Novolog Insulin Pen*) 100 Unit/Ml Soln, 5 UNIT SC WITH MEALS for 30 Days, #1 VIAL Prov:ROBEL PETTY MD 02/05/17 Insulin Glargine* (Lantus*) 100 Unit/Ml Soln, 13 UNIT SC DAILY@08 for 30 Days, # 1 VIAL Prov:ROBEL PETTY MD 02/05/17 Furosemide (Lasix) 40 Mg Tab, 40 MG PO DAILY for 30 Days, #30 TAB Prov:ROBEL PETTY MD 02/05/17 Atorvastatin* (Atorvastatin*) 40 Mg Tablet, 40 MG PO HS for 30 Days, #30 TAB Prov:ROBEL PETTY MD 02/05/17 Metoprolol Tartrate* (Lopressor*) 25 Mg Tab, 12.5 MG PO BID for 30 Days, TAB Prov:TAD POPE 08/29/16 Duloxetine Hcl* (Duloxetine Hcl*) 20 Mg Capsule.dr, 20 MG PO DAILY for 30 Days, CAP Prov:TAD POPE 08/29/16 Follow-up Plan 1.Follow up with primary care physician in 1 week If you don't have one please let someone know, we can give you resources that may help you pick one. You may also call your insurance company to assign one to you. Review your medication list with your nurse before leaving and if you need new prescriptions please let your nurse know. I may have made changes to your home medications or given you new prescriptions, please let your primary doctor know as well. Stay compliant with your medications and report any side effects to your PCP or pharmacist. Return to the ER if you have any concerns and cannot reach your doctors or call your insurance company, they usually have a nurse that can help you. 2. Call 911 or go to the nearest emergency room if experiencing loss of consciousness, dizziness, chest pain, shortness of breath, vomiting/abdominal pain, speech difficulties, motor weakness or any unusual symptoms. 3.Follow-up with (otm consultant) in 2weeks [id number] [place] [address] Office Primary Care Provider [facility] Pending Labs Laboratory Tests Test 04/21/17 12:11 04/21/17 17:11 04/21/17 20:45 04/22/17 08:19 Bedside Glucose 152mg/dL (70-220) 248mg/dL (70-220) 76mg/dL (70-220) 258mg/dL (70-220) TAD HIGIGNS NP Apr 22, 2017 11:25
--- NOTE | 2017-04-22 13:30 | CONS ---
Date/Time of Note Date/Time of Note DATE: 04/22/17 TIME: 13:27 Assessment/Plan Assessment/Plan Chief Complaint/Hosp Course IMPRESSION: 1. Chest pain, somewhat atypical at this time for cardiac etiology, but in a patient with a history of recent CABG. Rule out acute coronary syndrome. Negative troponin x3/EF 45% by echo this admit. 2. History of cardiomyopathy with mild decreased left ventricular ejection fraction by most recent echo. 3. Congestive heart failure by chest x-ray. Possible systolic, acute on chronic. 4. Hypertension, under reasonable control. 5. History of PTCA and stent placement prior to CABG to right coronary artery. 6. History of coronary artery disease, status post coronary artery bypass graft surgery receiving DEE to LAD and saphenous vein graft to obtuse marginal , January of 2017. 7. Hypothyroidism-NL FT4 8. DM 9. PVC-occasional Recc: -Tele -Continue asa/statin -Continue low dose BB -Continue bronchodilators -Follow volume status closely -Follow BS closely -Possible d/c planning Problems: Consultation Date/Type/Reason Admit Date/Time Apr 17, 2017 at 12:14 Initial Consult Date 04/19/17 Type of Consultation: cardiology Reason for Consultation chest pain Referring Provider: JACKSON KEARNEY [employer] Exam/Review of Systems Vital Signs Vitals Vital Signs Date Time Temp Pulse Resp B/P Pulse Ox O2 Delivery O2 Flow Rate FiO2 04/22/17 12:15 79 04/22/17 11:34 97.9 16 101/51 95 04/21/17 20:31 21 Intake and Output 04/21/17 04/21/17 04/22/17 15:00 23:00 07:00 Intake Total 1200 ml 400 ml Balance 1200 ml 400 ml Exam Review of Systems: CONSTITUTIONAL: No fevers, chills. PULMONARY: mild cough CARDIOVASCULAR: No chest pain/palpitations GASTROINTESTINAL: No nausea/vomiting. GENITOURINARY: No hematuria/dysuria. MUSCULOSKELETAL: No myagias/arthalgias. PSYCHIATRIC: The patient denies depression. NEUROLOGIC: No weakness Constitutional: alert Psych: no complaints Head: normocephalic ENMT: mucosa pink and moist Respiratory: diminished breath sounds Cardiovascular: regular rate and rhythm Gastrointestinal: non-tender, soft Musculoskeletal: muscle tone (normal) Extremities: edema (none) 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: other (No focal deficits) Results Result Diagram: 04/21/17 0639 04/21/1739 Results 24 hrs Laboratory Tests Test 04/21/17 17:11 04/21/17 20:45 04/22/17 08:19 04/22/17 12:07 Bedside Glucose 248 H 76 258 H 393 H Medications Medications Current Medications Aspirin (Aspirin) 81 mg DAILY PO Last administered on 04/22/17 08:26; Admin Dose 81 MG; Start 04/19/17 at 09:00 Nitroglycerin (Nitroglycerin (Sl Tab) 0.4 Mg) 1 tab Q5M PRN SL CHEST PAIN; Start 04/17/17 at 13:00 Morphine Sulfate (morphine) 2 mg Q2H PRN IV PAIN LEVEL 4-6 Last administered on 04/21/17 23:22; Admin Dose 2 MG; Start 04/17/17 at 13:00 Ondansetron HCl (Zofran Inj) 4 mg Q6H PRN IV NAUSEA AND/OR VOMITING Last administered on 04/17/17 23:32; Admin Dose 4 MG; Start 04/17/17 at 13:00 Acetaminophen (Tylenol Tab) 650 mg Q6H PRN PO PAIN LEVEL 1-3 OR FEVER Last administered on 04/22/17 08:27; Admin Dose 650 MG; Start 04/17/17 at 13:00 Acetaminophen (Tylenol Supp) 650 mg Q6H PRN [place] PAIN LEVEL 1-3 OR FEVER; Start 04/17/17 at 13:00 Docusate Sodium (Colace) 100 mg Q12H PRN PO CONSTIPATION; Start 04/17/17 at 13: 00 Diagnostic Test (Pha) (Accu-Chek) 1 ea 02 XX Last administered on 04/20/17 01: 32; Admin Dose 1 EA; Start 04/18/17 at 02:00 Alendronate Sodium (Fosamax) 70 mg Q7D PO Last administered on 04/21/17 06:19 ; Admin Dose 70 MG; Start 04/21/17 at 06:30 Levothyroxine Sodium (Synthroid) 112 mcg DAILY@06 PO Last administered on 06:45; Admin Dose 112 MCG; Start 04/18/17 at 06:00 Ticagrelor (Brilinta) 90 mg BID PO Last administered on 04/22/17 08:31; Admin Dose 90 MG; Start 04/17/17 at 21:00 Miscellaneous Information 1 ea NOTE XX ; Start 04/17/17 at 14:00 Glucose (Glutose) 15 gm Q15M PRN PO DECREASED GLUCOSE Last administered on 04/19 01:16; Admin Dose 15 GM; Start 04/17/17 at 14:00 Glucose (Glutose) 22.5 gm Q15M PRN PO DECREASED GLUCOSE; Start 04/17/17 at 14: 00 Dextrose (D50w Syringe) 25 ml Q15M PRN IV DECREASED GLUCOSE Last administered on 04/19/17 21:03; Admin Dose 25 ML; Start 04/17/17 at 14:00 Dextrose (D50w Syringe) 50 ml Q15M PRN IV DECREASED GLUCOSE; Start 04/17/17 at 14:00 Glucagon (Glucagen) 1 mg Q15M PRN IM DECREASED GLUCOSE; Start 04/17/17 at 14:00 Glucose (Glutose) 15 gm Q15M PRN BUCCAL DECREASED GLUCOSE; Start 04/17/17 at 14 :00 Promethazine HCl/ Codeine (Phenergan/ Codeine) 5 ml Q4H PRN PO COUGH Last administered on 04/21/17 18:10; Admin Dose 5 ML; Start 04/17/17 at 14:30 Benzonatate (Tessalon) 100 mg TID PO Last administered on 04/22/17 12:08; Admin Dose 100 MG; Start 04/17/17 at 21:00 Atorvastatin Calcium (Lipitor) 40 mg HS PO Last administered on 04/21/17 20:48 ; Admin Dose 40 MG; Start 04/18/17 at 21:00 Gabapentin (Neurontin) 300 mg DAILY PO Last administered on 04/22/17 08:26; Admin Dose 300 MG; Start 04/19/17 at 13:00 Gabapentin (Neurontin) 600 mg HS PO Last administered on 04/21/17 20:49; Admin Dose 600 MG; Start 04/18/17 at 21:00 Metoprolol Tartrate (Lopressor) 12.5 mg BID PO Last administered on 04/22/17 08:29; Admin Dose 12.5 MG; Start 04/18/17 at 21:00 Tiotropium [place] (Spiriva) 1 inh DAILY INH Last administered on 04/22/17 08: 26; Admin Dose 1 INH; Start 04/19/17 at 12:30 Salmeterol Xinafoate/ Fluticasone (Advair 250/50 Diskus) 1 inh BID INH Last administered on 04/22/17 08:25; Admin Dose 1 INH; Start 04/19/17 at 12:30 Insulin Glargine (Lantus) 15 unit QHS SC Last administered on 04/21/17 21:03; Admin Dose 15 UNIT; Start 04/20/17 at 21:00 RHONDA PENA Apr 22, 2017 13:30
[2017-04-22] MEDS: PROMETHAZINE/CODEINE 5ML CUP PO PRN (17:21)
--- NOTE | 2017-04-22 17:56 | CONS ---
Date/Time of Note Date/Time of Note DATE: 04/22/17 TIME: 17:50 Assessment/Plan Assessment/Plan Problems: (1) Type 1 diabetes mellitus with diabetic polyneuropathy Status: Chronic Comment: Since last night hyperglycemic for no apparent reason. Insulin doses were not changed from the day before when her glucose levels were perfect. This is the life of someone with Type 1 Diabetes; erratic and unpredictable high and low glucose levels. She has now started to come back to goal range. Raising her insulin doses after a day of high glucose would likely result in a subsequent hypoglycemic episode. If pt. is waiting for PT, she is just as likely tomorrow to be euglycemic for her therapy as she was yesterday. There is no blood glucose that should preclude PT. If primary team wants to d/c pt, and can do it w/o PT she can go at any time per endocrinology. Glucose out of control does not require hospitalization. Consultation Date/Type/Reason Admit Date/Time Apr 17, 2017 at 12:14 Initial Consult Date 04/19/17 Type of Consultation: Endocrinology Reason for Consultation T1DM management Referring Provider: JACKSON KEARNEY [employer] 24 HR Interval Summary Constitutional: improved, no complaints Detailed Summary Respiratory: no complaints Cardiovascular: chest pain Gastrointestinal: no complaints Genitourinary: no complaints Musculoskeletal: bone/joint pain (B knee pain but improved. Waiting for PT) Neurologic: no complaints Exam/Review of Systems Vital Signs Vitals VS - Last 72 Hours, by Label Date Time Temp Pulse Resp B/P Pulse Ox O2 Delivery O2 Flow Rate FiO2 04/22/17 16:33 98.7 73 18 113/54 96 04/22/17 16:23 80 04/22/17 12:15 79 04/22/17 11:34 97.9 73 16 101/51 95 04/22/17 08:48 77 04/22/17 07:44 98.0 83 16 110/56 96 04/22/17 04:31 98.1 76 16 113/56 94 04/22/17 04:05 85 04/22/17 00:17 98.5 90 16 128/59 96 04/22/17 00:05 85 04/21/17 20:31 87 18 96 21 04/21/17 20:22 85 04/21/17 19:16 98.5 75 18 118/54 93 04/21/17 16:00 83 04/21/17 15:36 98.1 79 18 109/55 96 04/21/17 13:12 82 18 96 04/21/17 12:00 75 04/21/17 12:00 98.2 79 18 124/65 95 04/21/17 08:00 83 04/21/17 07:22 98.5 82 18 102/40 96 04/21/17 04:37 98.5 60 16 105/51 97 04/21/17 04:04 72 04/21/17 00:25 95 04/20/17 23:08 98.5 74 18 116/56 96 04/20/17 20:04 85 04/20/17 20:00 100.4 83 18 111/54 95 04/20/17 16:12 88 04/20/17 15:53 98.1 85 20 112/57 94 04/20/17 14:14 74 20 97 21 04/20/17 12:13 76 04/20/17 11:19 98.6 80 20 107/53 96 04/20/17 08:17 79 04/20/17 07:58 98.0 81 20 105/48 97 04/20/17 04:04 85 04/20/17 03:50 98.6 87 20 109/53 95 04/20/17 00:04 90 04/19/17 23:51 98.6 64 19 114/55 96 04/19/17 20:35 97 20 97 21 04/19/17 20:28 100 04/19/17 20:00 98.8 97 19 115/56 97 Vital Signs Date Time Temp Pulse Resp B/P Pulse Ox O2 Delivery O2 Flow Rate FiO2 04/22/17 16:33 98.7 73 18 113/54 96 04/21/17 20:31 21 Intake and Output 04/21/17 04/21/17 04/22/17 15:00 23:00 07:00 Intake Total 1200 ml 400 ml Balance 1200 ml 400 ml Exam Constitutional: alert, oriented, well developed Psych: nl mood/affect, no complaints Respiratory: clear to auscultation, normal air movement Cardiovascular: nl pulses, regular rate and rhythm, No edema, No murmurs/extra sounds, No rub Gastrointestinal: bowel sounds, nl liver, spleen, non-tender, soft, No mass, No rebound or guarding Musculoskeletal: nl extremities to inspection Extremities: normal pulses, No clubbing, No cyanosis, No edema 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: EVENT OPERATIONS MANAGER II-XII intact, nl mental status, nl speech, nl strength Additional Comments Bedside Glucose - 72 Hours Test 04/19/17 20:06 04/19/17 20:35 04/19/17 21:01 04/19/17 21:26 Bedside Glucose 56mg/dL (70-220) L 68mg/dL (70-220) L 142mg/dL (70-220) 198mg/dL (70-220) Test 04/19/17 22:08 04/20/17 01:31 04/20/17 07:45 04/20/17 11:49 Bedside Glucose 193mg/dL (70-220) 188mg/dL (70-220) 180mg/dL (70-220) 115mg/dL (70-220) Test 04/20/17 17:32 04/20/17 21:11 04/21/17 08:04 04/21/17 10:33 Bedside Glucose 194mg/dL (70-220) 131mg/dL (70-220) 163mg/dL (70-220) 185mg/dL (70-220) Test 04/21/17 12:11 04/21/17 17:11 04/21/17 20:45 04/22/17 08:19 Bedside Glucose 152mg/dL (70-220) 248mg/dL (70-220) H 76mg/dL (70-220) 258mg/dL (70-220) H Test 04/22/17 12:07 04/22/17 13:16 04/22/17 14:28 04/22/17 17:22 Bedside Glucose 393mg/dL (70-220) H 374mg/dL (70-220) H 326mg/dL (70-220) H 196mg/dL (70-220) Results Result Diagram: 04/21/1739 04/21/17 0639 Results 24 hrs Laboratory Tests Test 04/21/17 20:45 04/22/17 08:19 04/22/17 12:07 04/22/17 13:16 Bedside Glucose 76 258 H 393 H 374 H Test 04/22/17 14:28 04/22/17 17:22 Bedside Glucose 326 H 196 Medications Medications Current Medications Aspirin (Aspirin) 81 mg DAILY PO Last administered on 04/22/17 08:26; Admin Dose 81 MG; Start 04/19/17 at 09:00 Nitroglycerin (Nitroglycerin (Sl Tab) 0.4 Mg) 1 tab Q5M PRN SL CHEST PAIN; Start 04/17/17 at 13:00 Morphine Sulfate (morphine) 2 mg Q2H PRN IV PAIN LEVEL 4-6 Last administered on 04/21/17 23:22; Admin Dose 2 MG; Start 04/17/17 at 13:00 Ondansetron HCl (Zofran Inj) 4 mg Q6H PRN IV NAUSEA AND/OR VOMITING Last administered on 04/17/17 23:32; Admin Dose 4 MG; Start 04/17/17 at 13:00 Acetaminophen (Tylenol Tab) 650 mg Q6H PRN PO PAIN LEVEL 1-3 OR FEVER Last administered on 04/22/17 08:27; Admin Dose 650 MG; Start 04/17/17 at 13:00 Acetaminophen (Tylenol Supp) 650 mg Q6H PRN [place] PAIN LEVEL 1-3 OR FEVER; Start 04/17/17 at 13:00 Docusate Sodium (Colace) 100 mg Q12H PRN PO CONSTIPATION; Start 04/17/17 at 13: 00 Diagnostic Test (Pha) (Accu-Chek) 1 ea 02 XX Last administered on 04/20/17 01: 32; Admin Dose 1 EA; Start 04/18/17 at 02:00 Alendronate Sodium (Fosamax) 70 mg Q7D PO Last administered on 04/21/17 06:19 ; Admin Dose 70 MG; Start 04/21/17 at 06:30 Levothyroxine Sodium (Synthroid) 112 mcg DAILY@06 PO Last administered on 06:45; Admin Dose 112 MCG; Start 04/18/17 at 06:00 Ticagrelor (Brilinta) 90 mg BID PO Last administered on 04/22/17 08:31; Admin Dose 90 MG; Start 04/17/17 at 21:00 Miscellaneous Information 1 ea NOTE XX ; Start 04/17/17 at 14:00 Glucose (Glutose) 15 gm Q15M PRN PO DECREASED GLUCOSE Last administered on 04/19 01:16; Admin Dose 15 GM; Start 04/17/17 at 14:00 Glucose (Glutose) 22.5 gm Q15M PRN PO DECREASED GLUCOSE; Start 04/17/17 at 14: 00 Dextrose (D50w Syringe) 25 ml Q15M PRN IV DECREASED GLUCOSE Last administered on 04/19/17 21:03; Admin Dose 25 ML; Start 04/17/17 at 14:00 Dextrose (D50w Syringe) 50 ml Q15M PRN IV DECREASED GLUCOSE; Start 04/17/17 at 14:00 Glucagon (Glucagen) 1 mg Q15M PRN IM DECREASED GLUCOSE; Start 04/17/17 at 14:00 Glucose (Glutose) 15 gm Q15M PRN BUCCAL DECREASED GLUCOSE; Start 04/17/17 at 14 :00 Promethazine HCl/ Codeine (Phenergan/ Codeine) 5 ml Q4H PRN PO COUGH Last administered on 04/21/17 18:10; Admin Dose 5 ML; Start 04/17/17 at 14:30 Benzonatate (Tessalon) 100 mg TID PO Last administered on 04/22/17 12:08; Admin Dose 100 MG; Start 04/17/17 at 21:00 Atorvastatin Calcium (Lipitor) 40 mg HS PO Last administered on 04/21/17 20:48 ; Admin Dose 40 MG; Start 04/18/17 at 21:00 Gabapentin (Neurontin) 300 mg DAILY PO Last administered on 04/22/17 08:26; Admin Dose 300 MG; Start 04/19/17 at 13:00 Gabapentin (Neurontin) 600 mg HS PO Last administered on 04/21/17 20:49; Admin Dose 600 MG; Start 04/18/17 at 21:00 Metoprolol Tartrate (Lopressor) 12.5 mg BID PO Last administered on 04/22/17 08:29; Admin Dose 12.5 MG; Start 04/18/17 at 21:00 Tiotropium [place] (Spiriva) 1 inh DAILY INH Last administered on 04/22/17 08: 26; Admin Dose 1 INH; Start 04/19/17 at 12:30 Salmeterol Xinafoate/ Fluticasone (Advair 250/50 Diskus) 1 inh BID INH Last administered on 04/22/17 08:25; Admin Dose 1 INH; Start 04/19/17 at 12:30 Insulin Glargine (Lantus) 15 unit QHS SC Last administered on 04/21/17t 21:03; Admin Dose 15 UNIT; Start 04/20/17 at 21:00 DARYL MYERS MD Apr 22, 2017 17:56
== END 2017-04-22 19:50 | disposition home health service (06) | DRG 206 ==
LOC: E/R 10:06 → TEL 12:14
PROVIDERS: ADMIT Internal Medicine; ATTEND Internal Medicine
DX: M94.0 Chondrocostal junction syndrome [Tietze] (principal); I50.32 Chronic diastolic (congestive) heart failure; E10.42 Type 1 diabetes mellitus with diabetic polyneuropathy; E10.51 Type 1 diabetes mellitus with diabetic peripheral angiopathy without gangrene; M25.562 Pain in left knee; J44.9 Chronic obstructive pulmonary disease, unspecified; R13.19 Other dysphagia; E03.9 Hypothyroidism, unspecified; I25.10 Atherosclerotic heart disease of native coronary artery without angina pectoris; Z95.1 Presence of aortocoronary bypass graft; D64.89 Other specified anemias; Z87.891 Personal history of nicotine dependence; Z95.5 Presence of coronary angioplasty implant and graft; M81.0 Age-related osteoporosis without current pathological fracture; I25.5 Ischemic cardiomyopathy; E78.5 Hyperlipidemia, unspecified; E10.65 Type 1 diabetes mellitus with hyperglycemia; I25.2 Old myocardial infarction; J06.9 Acute upper respiratory infection, unspecified; R22.1 Localized swelling, mass and lump, neck; R05 Cough; E10.618 Type 1 diabetes mellitus with other diabetic arthropathy
CPT/HCPCS: 36415; 71010; 73560; 80048; 80053; 80061; 82550; 82553; 82962; 83036; 83735; 83880; 84100; 84439; 84443; 84484; 85025; 90686; 90732; 93005; 93306; 94640; 94664; J1815; J2270; J2405; J3475

== ENCOUNTER 2017-05-18 13:31 | Inpatient (IN) | payer OTHER ==
[2017-05-18] VITALS (9 sets, daily range): BP systolic 103–138; BP diastolic 45–87; PULSE 86–98; RESP 9–31; Ht 154.9 cm; Wt 60.0 kg
[~2017-05-18] VITALS: Ht 154.9 cm; Wt 60.0 kg
[~2017-05-18 13:31] MED LIST changes: +ADV25050 INH; +ALBU8.5H3 INH; +BENZ-5 PO; -DULO20CA17 PO; +FURO-110 PO; -FURO40TA4 PO; +INSU200I SQ; -NOVO3I SC; +Promethazine/Codeine Syp PO; +TIOT18CA INH
[2017-05-18 13:52] LABS: BASOPHIL # 0.1 10^3/ul (0.0-0.1); BASOPHILS % 1.1 % (0.0-2.0); EOSINOPHILS # 0.4 10^3/ul (0.0-0.5); EOSINOPHILS % 4.8 % (0.0-7.0); HEMATOCRIT 40.7 % (37.0-47.0); HEMOGLOBIN 13.3 g/dl (12.0-16.0); LYMPHOCYTES # 1.2 10^3/ul (0.8-2.9); MEAN CORPUSCULAR HEMOGLOBIN 29.4 pg (29.0-33.0); MEAN CORPUSCULAR HGB CONC 32.7 g/dl (32.0-37.0); MEAN PLATELET VOLUME 9.7 fl (7.4-10.4); MONOCYTE # 0.6 10^3/ul (0.3-0.9); NEUTROPHIL # 5.2 10^3/ul (1.6-7.5); NEUTROPHILS % 69.8 % (39.0-77.0); PLATELET COUNT 290 10^3/UL (140-415); RED BLOOD COUNT 4.52 10^6/ul (4.20-5.40); RED CELL DISTRIBUTION WIDTH 12.9 % (11.5-14.5); WHITE BLOOD COUNT 7.5 10^3/ul (4.8-10.8)
--- NOTE | 2017-05-18 13:52 | ERD ---
ER Documentation Chief Complaint Chief Complaint Chest pain HPI The patient is a 56-year-old female, presenting to the ER because of sternal chest pain radiating to the left side of the breast at 1 PM, 5 or 10. She had similar symptoms previously. She denies fever, chills, syncope, near syncope, diaphoresis, abdominal pain, vomiting, dysuria, diarrhea. She smoke until recently. She was treated with 3 spray of nitroglycerin and aspirin 162 mg p.o. prior to arrival with some response The patient came in as possible STEMI. Code STEMI was cancelled after first ER EKG was done Medical history: CAD, diabetes mellitus, hypothyroidism, ischemic cardiomyopathy EF 45%, COPD, dyslipidemia Past surgical history: CABG 01/2017, stent PCI in November 2016 ROS All systems reviewed and are negative except as per history of present illness. Medications Home Meds Active Scripts Albuterol Sulfate* (Proair HFA*) 8.5 Gm Hfa.aer.ad, 2 PUFF INH Q6H Y for WHEEZING AND SOB, #1 INHALER Prov:TAD HIGGINS NP 04/22/17 Salmeterol Xinaf/Fluticasone* (Advair*) 250-50 Diskus Inhaler, 1 INH INH BID, # 1 INHALER Prov:TAD HIGGINS NP 04/22/17 Tiotropium [place]* (Spiriva*) 18 Mcg Cap.w.dev, 1 INH INH DAILY, #1 INHALER Prov:TAD HIGGINS NP 04/22/17 Levothyroxine Sodium* (Levothyroxine Sodium*) 112 Mcg Tablet, 112 MCG PO DAILY@ 06 for 30 Days, #30 TAB Prov:ROBEL PETTY MD 02/05/17 Aspirin* (Aspirin* EC) 81 Mg Tabec, 81 MG PO DAILY for 30 Days, #30 Prov:TAD POPE 08/29/16 Ticagrelor* (Brilinta*) 90 Mg Tablet, 90 MG PO BID for 30 Days, #60 Prov:TAD POPE 08/29/16 Gabapentin* (Gabapentin*) 300 Mg Capsule, 300 MG PO TID for 30 Days, CAP Prov:TAD POPE 08/29/16 Reported Medications Insulin Glargine* (Lantus*) 100 Unit/Ml Ramses 16 UNIT SC QHS, #1 VIAL 05/18/17 Metoprolol Tartrate* (Lopressor*) 25 Mg Tab, 25 MG PO BID, #60 TAB 04/17/17 Furosemide* (Lasix*) 20 Mg Tablet, 20 MG PO DAILY, TAB 04/17/17 Insulin Lispro (Humalog Kwikpen) 200 Unit/1 Ml Insuln.pen, 0 SQ AC MEALS, EA SLIDING SCALE 04/17/17 Alendronate Sodium* (Fosamax*) 70 Mg Tablet, 70 MG PO Q7D, #4 TAB 08/19/16 Discontinued Reported Medications Insulin Glargine* (Lantus*) 100 Unit/Ml Soln, 25 UNIT SC QHS, #1 VIAL 04/17/17 Discontinued Scripts [Promethazine/Codeine Syp] 5 ML SYRUP No Conflict Check, 5 ML PO Q4H Y for COUGH , #1 BOTTLE 250 ml bottle Prov:HIGGINS,TAD V. JANITOR AND CLEANER 04/22/17 Benzonatate* (Benzonatate*) 100 Mg Capsule, 100 MG PO TID, #90 CAP Prov:HIGGINS,TAD V. JANITOR AND CLEANER 04/22/17 Atorvastatin* (Atorvastatin*) 40 Mg Tablet, 40 MG PO HS, #30 TAB Prov:HIGGINS,TAD V. JANITOR AND CLEANER 04/22/17 Allergies Allergies: Coded Allergies: ibuprofen (Verified Allergy, Mild, VOMITING,DIZZINESS, 05/18/17) Fish Containing Products (Verified Allergy, Unknown, 05/18/17) PMhx/Soc History of Surgery: Yes (CABG 01/2017, L eye surgery 2006, tubal ligation 1989, stents 2015, csection) Anesthesia Reaction: No Hx 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 Disorder: No Hx Respiratory Disorders: Yes (chronic bronchitis, COPD) Hx Cardiac Disorders: Yes ([place], CAD) Hx Psychiatric Problems: No Hx Miscellaneous Medical Probl: No Hx Alcohol Use: No Hx Substance Use: No Hx Tobacco Use: No Physical Exam Vitals Vital Signs Date Time Temp Pulse Resp B/P Pulse Ox O2 Delivery O2 Flow Rate FiO2 05/18/17 14:48 Nasal Cannula 2 05/18/17 13:46 98.0 91 18 115/43 96 Physical Exam Const: No acute distress. Head: Atraumatic. Eyes: Normal Conjunctiva. ENT: Normal External Ears, Nose and Mouth. Neck: Full range of motion. No meningismus. Resp: Clear to auscultation bilaterally. Cardio: Regular rate and rhythm. Abd: Soft, non distended, normal bowel sounds, non tender. Skin: No petechiae or rashes. Back: No midline or flank tenderness. Ext: No cyanosis, or edema. Neur: Awake and alert. No focal deficit Psych: Normal Mood and Affect. Result Diagram: 05/18/17 1345 05/18/17 1345 Results 24 hrs Laboratory Tests Test 05/18/17 13:45 05/18/17 13:47 White Blood Count 7.510^3/ul Red Blood Count 4.5210^6/ul Hemoglobin 13.3g/dl Hematocrit 40.7% Mean Corpuscular Volume 90.0fl Mean Corpuscular Hemoglobin 29.4pg Mean Corpuscular Hemoglobin Concent 32.7g/dl Red Cell Distribution Width 12.9% Platelet Count 19711^3/UL Mean Platelet Volume 9.7fl Neutrophils % 69.8% Lymphocytes % 16.0% Monocytes % 8.0% Eosinophils % 4.8% Basophils % 1.1% Nucleated Red Blood Cells % 0.0/100WBC Neutrophils # 5.210^3/ul Lymphocytes # 1.210^3/ul Monocytes # 0.610^3/ul Eosinophils # 0.410^3/ul Basophils # 0.110^3/ul Nucleated Red Blood Cells # 0.010^3/ul Prothrombin Time 12.3Sec Prothrombin Time Ratio 1.0 INR International Normalized Ratio 0.91 Activated Partial Thromboplast Time 28.4Sec Sodium Level 134mmol/L Potassium Level 5.1mmol/L Chloride Level 99mmol/L Carbon Dioxide Level 24mmol/L Anion Gap 16 Blood Urea Nitrogen 16mg/dl Creatinine 0.62mg/dl Glucose Level 704mg/dl Lactic Acid Level 2.0mmol/L Calcium Level 8.9mg/dl Total Bilirubin 1.1mg/dl Direct Bilirubin 0.00mg/dl Indirect Bilirubin 1.1mg/dl Aspartate Amino Transf (AST/SGOT) 24IU/L Alanine Aminotransferase (ALT/SGPT) 32IU/L Alkaline Phosphatase 146IU/L Troponin I < 0.012ng/ml Total Protein 6.7g/dl Albumin 4.0g/dl Globulin 2.70g/dl Albumin/Globulin Ratio 1.48 Blood Gas Specimen Source Blood arterial Arterial Blood Date Drawn 05/18/2017 2:05:03 PM Arterial Blood pH (Temp corrected) 7.523 Arterial Blood pCO2 (Temp correct) 26.9mmhg Arterial Blood pO2 (Temp corrected) 90.4mmHG Arterial Blood HCO3 21.6mmol/L Arterial Blood Base Excess 0.1mmol/L Arterial Blood Oxygen Saturation 97.4mmHG Miguel Test ACCEPTAB Arterial Blood Gas Puncture Site Left Radial Arterial Blood Carboxyhemoglobin 0.4% Arterial Blood Methemoglobin 0.3% Blood Gas A-a O2 Differential 27.1mmHg Oxyhemoglobin Percent 96.7% Total Hemoglobin 13.6g/dl Blood Gas Temperature 37.0C Blood Gas Modality ROOM AIR FiO2 21.0% Blood Gas Notified Whom [place] Blood Gas Notified Time 05/18/2017 2:09:07 PM Current Medications Medications (Trade) Dose Ordered Sig/Mo Route PRN Reason Start Time Stop Time Status Last Admin Dose Admin Sodium Chloride (NS) 1,000 ml @ 1,000 mls/hr Q1H ONCE IV 05/18/17 14:00 05/18/17 14:59 DC 05/18/17 14:23 Heparin Sodium (Porcine) (Heparin (1000 Units/ml)) 4,000 unit ONCE ONCE IV 05/18/17 15:30 05/18/17 15:31 DC Lidocaine (Xylocaine 1% (Mdv) 20 ml) 20 ml STK-MED ONCE .ROUTE 05/18/17 15:19 05/18/17 15:20 DC Iodixanol 100 ml 100 ml STK-MED ONCE .ROUTE 05/18/17 15:19 05/18/17 15:20 DC Heparin Sodium/ Sodium Chloride (Heparin 1000 Units/NS (A-Line)) 1,500 ml @ ud STK-MED ONCE .ROUTE 05/18/17 15:19 05/18/17 15:20 DC Insulin Human Regular (Humulin R) 10 unit NOW SC 05/18/17 16:00 05/18/17 16:01 DC Midazolam HCl (Versed) 2 mg STK-MED ONCE .ROUTE 05/18/17 15:33 05/18/17 15:34 DC Fentanyl (Sublimaze) 100 mcg STK-MED ONCE .ROUTE 05/18/17 15:33 05/18/17 15:34 DC Miscellaneous Information 1 ea NOTE XX 05/18/17 16:00 Glucose (Glutose) 15 gm Q15M PRN PO DECREASED GLUCOSE 05/18/17 16:00 Glucose (Glutose) 22.5 gm Q15M PRN PO DECREASED GLUCOSE 05/18/17 16:00 Dextrose (D50w Syringe) 25 ml Q15M PRN IV DECREASED GLUCOSE 05/18/17 16:00 Dextrose (D50w Syringe) 50 ml Q15M PRN IV DECREASED GLUCOSE 05/18/17 16:00 Glucagon (Glucagen) 1 mg Q15M PRN IM DECREASED GLUCOSE 05/18/17 16:00 Glucose (Glutose) 15 gm Q15M PRN BUCCAL DECREASED GLUCOSE 05/18/17 16:00 Diphenhydramine HCl (Benadryl) 50 mg STK-MED ONCE .ROUTE 05/18/17 15:37 05/18/17 15:38 DC Methylprednisolone Sodium Succinate 125 mg 125 mg STK-MED ONCE .ROUTE 05/18/17 15:37 05/18/17 15:38 DC Bivalirudin (Angiomax) 50 ml @ ud STK-MED ONCE IVPB 05/18/17 15:48 05/18/17 15:49 DC Ticagrelor 90 mg 90 mg STK-MED ONCE .ROUTE 05/18/17 15:48 05/18/17 15:49 DC Heparin Sodium/ Sodium Chloride (Heparin 1000 Units/NS (A-Line)) 500 ml @ ud STK-MED ONCE .ROUTE 05/18/17 16:09 05/18/17 16:10 DC Verapamil HCl (Verapamil) 5 mg STK-MED ONCE .ROUTE 05/18/17 16:12 05/18/17 16:13 DC Nitroglycerin 1000 mcg 1,000 mcg STK-MED ONCE .ROUTE 05/18/17 16:12 05/18/17 16:13 DC Insulin Human Regular/Sodium Chloride (Novolin-R/NS) 100 ml @ 0 mls/hr PER PROTOCOL IV 05/18/17 17:00 Procedures/[place] [id number] Radiology Main Line: [phone] DIAGNOSTIC IMAGING REPORT Patient: POOJA NGUYEN : 1960 Age: 56 Sex: F [id number] DOS: 05/18/17 1336 Ordering MD: DARYL SR MD Location: E/R Room/Bed: PROCEDURE: XR Chest. CLINICAL INDICATION: chest pain TECHNIQUE: PA and lateral views of the chest were obtained COMPARISON: CR CHEST 01/26/2017 FINDINGS: There is mild cardiomegaly.. The patient is status post CABG. There is elevation of the left diaphragm with left lower lobe atelectasis. There is no pleural effusion or pneumothorax. The bones and soft tissues are unremarkable. IMPRESSION: Mild cardiomegaly. Elevated left diaphragm with left lower lobe atelectasis. RPTAT:AA . .Emmanuel Cheng MD, MD Date Time Electronically viewed and signed by .Emmanuel Cheng MD, MD on 05/18/2017 13: 51 .S/ CC: DARYL SR MD EKG: at 13:33 hr Read by emergency physician Rate/Rhythm: Normal Sinus Rhythm 96 beats/min QRS, ST, T-waves: No ST elevation, no T inversion, anterior septal Q Impression: Abnormal EKG EKG: at 14:42 hr Read by emergency physician Rate/Rhythm: Normal Sinus Rhythm 96 beats/min QRS, ST, T-waves: Minimal inferior ST elevation, no T inversion, anterior septal Q Impression: Abnormal EKG, possible inferior [place] Consultation: I discussed the patient with the on-call automobile rental agent Dr Iglesias at 14:45 hr, who was in the ER to evaluate the patient. He would like to do emergent cardiac angiogram MEDICAL MAKING DECISION: The patient is a 56-year-old female, presenting with acute inferior [place], acute diabetic hyperglycemia. She was treated with 1 L normal saline for hypotension and heparin 4000 units IV for probable acute inferior [place]. She already received aspirin 162 mg and 3 nitroglycerin spray by EMS. 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 I did inform the admitting MD Dr Vaughan. Lactate is 2 but I do not suspect sepsis nor DKA in the patient. The differential diagnoses considered include but are not limited to acute coronary syndrome, acute myocardial infarction, pericarditis, pulmonary embolism , aortic dissection, pneumonia, pleural effusion, pneumothorax, GERD, chest wall pain, HHS, DKA. Critical Care: Time: 35 minutes excluding all billable procedures. Treatments/Evaluations: Close monitoring and treatment of unstable vital signs, cardiorespiratory, and neurologic status, while maintaining tight balance of fluid, respiratory, and cardiac interventions. Departure Diagnosis: Primary Impression: STEMI (ST elevation myocardial infarction) Additional Impression: Diabetes mellitus with hyperglycemia Condition: Critical Comments I discussed the findings with the patient. I discussed the patient with the hospitalist Clement at 3:20 PM who was made aware of the lab, the treatment, the patient condition, pending lab The patient is admitted to ICU Disclaimer: Inadvertent spelling and grammatical errors are likely due to EHR/ dictation software use and do not reflect on the overall quality of patient care. Also, please note that the electronic time recorded on this note does not necessarily reflect the actual time of the patient encounter. DARYL SR MD May 18, 2017 13:52
[2017-05-18] MEDS ORDERED: SOD CHLORIDE 0.9% 1,000 ML IV ONE (14:00)
[2017-05-18 14:09] LABS: AADO2 Arterial 27.1 mmHg (7.0-24.0); Allen Test ACCEPTAB; Arterial Base Excess 0.1 mmol/L (-3.0-3); Arterial COHb 0.4 % (0.0-3.0); Arterial Fraction of Oxyhgb 96.7 % (93.0-99.0); Arterial HCO3 21.6 mmol/L (22.0-26.0); Arterial MetHb 0.3 % (0.0-1.5); Arterial Total Hemglobin 13.6 g/dl (12.0-18.0); MODE ROOM AIR
[2017-05-18] MEDS ORDERED: LANT3I SC (14:18)
[2017-05-18 14:23] LABS: INR 0.91; PROTIME 12.3 Sec (11.9-14.9)
[2017-05-18 14:24] LABS: PARTIAL THROMBOPLASTIN TIME 28.4 Sec (25.0-35.0)
[2017-05-18 14:29] LABS: ALANINE AMINOTRANSFERASE 32 IU/L (13-69); ALBUMIN/GLOBULIN RATIO 1.48; ALKALINE PHOSPHATASE 146 IU/L (42-121); ANION GAP 16 (8-16); ASPARTATE AMINO TRANSFERASE 24 IU/L (15-46); BILIRUBIN,INDIRECT 1.1 mg/dl (0-1.1); BILIRUBIN,TOTAL 1.1 mg/dl (0.2-1.3); BLOOD UREA NITROGEN 16 mg/dl (7-20); CALCIUM 8.9 mg/dl (8.4-10.2); CARBON DIOXIDE 24 mmol/L (21-31); CHLORIDE 99 mmol/L (97-110); CREATININE 0.62 mg/dl (0.44-1.00); POTASSIUM 5.1 mmol/L (3.5-5.1); SODIUM 134 mmol/L (135-144); TOTAL PROTEIN 6.7 g/dl (6.1-8.1)
[2017-05-18 14:49] LABS: TROPONIN-I < 0.012 ng/ml (0.00-0.12)
--- NOTE | 2017-05-18 15:05 | PN ---
Date/Time of Note Date/Time of Note DATE: 05/18/17 TIME: 15:03 Assessment/Plan VTE Prophylaxis VTE Prophylaxis Intervention: other Lines/Catheters IV Catheter Type (from Nrs): Saline Lock Assessment/Plan Chief Complaint/Hosp Course 1. chest pain and abnormal ECG concerning for possible inf STEMI pt old record was reviewed and d/w pt DR Fox pt'scardiologist Dr Adames. emergent LHC/ javier possible PCI d/w pt and consent was obtained will take to cemetery laborer as soon as cemetery laborer is ready [facility] Problems: Exam/Review of Systems Vital Signs Vitals Vital Signs Date Time Temp Pulse Resp B/P Pulse Ox O2 Delivery O2 Flow Rate FiO2 05/18/17 14:48 Nasal Cannula 2 05/18/17 13:46 98.0 91 18 115/43 96 Results Result Diagram: 05/18/17 1345 05/18/17 1345 Results 24 hrs Laboratory Tests Test 05/18/17 13:45 05/18/17 13:47 White Blood Count 7.5 Red Blood Count 4.52 Hemoglobin 13.3 Hematocrit 40.7 Mean Corpuscular Volume 90.0 Mean Corpuscular Hemoglobin 29.4 Mean Corpuscular Hemoglobin Concent 32.7 Red Cell Distribution Width 12.9 Platelet Count 290 Mean Platelet Volume 9.7 Neutrophils % 69.8 Lymphocytes % 16.0 Monocytes % 8.0 Eosinophils % 4.8 Basophils % 1.1 Nucleated Red Blood Cells % 0.0 Neutrophils # 5.2 Lymphocytes # 1.2 Monocytes # 0.6 Eosinophils # 0.4 Basophils # 0.1 Nucleated Red Blood Cells # 0.0 Prothrombin Time 12.3 Prothrombin Time Ratio 1.0 INR International Normalized Ratio 0.91 Activated Partial Thromboplast Time 28.4 Sodium Level 134 L Potassium Level 5.1 Chloride Level 99 Carbon Dioxide Level 24 Anion Gap 16 Blood Urea Nitrogen 16 Creatinine 0.62 Glucose Level Pending Lactic Acid Level 2.0 Calcium Level 8.9 Total Bilirubin 1.1 Direct Bilirubin 0.00 Indirect Bilirubin 1.1 Aspartate Amino Transf (AST/SGOT) 24 Alanine Aminotransferase (ALT/SGPT) 32 Alkaline Phosphatase 146 H Troponin I < 0.012 Total Protein 6.7 Albumin 4.0 Globulin 2.70 Albumin/Globulin Ratio 1.48 Blood Gas Specimen Source Blood arterial Arterial Blood Date Drawn 05/18/2017 2:05:03 PM Arterial Blood pH (Temp corrected) 7.523 H Arterial Blood pCO2 (Temp correct) 26.9 L Arterial Blood pO2 (Temp corrected) 90.4 Arterial Blood HCO3 21.6 L Arterial Blood Base Excess 0.1 Arterial Blood Oxygen Saturation 97.4 Miguel Test ACCEPTAB Arterial Blood Gas Puncture Site Left Radial Arterial Blood Carboxyhemoglobin 0.4 Arterial Blood Methemoglobin 0.3 Blood Gas A-a O2 Differential 27.1 H Oxyhemoglobin Percent 96.7 Total Hemoglobin 13.6 Blood Gas Temperature 37.0 Blood Gas Modality ROOM AIR FiO2 21.0 Blood Gas Notified Whom [place] Blood Gas Notified Time 05/18/2017 2:09:07 PM TORSTEN ZEE MD May 18, 2017 15:05
[2017-05-18] MEDS ORDERED: IODIXANOL LOCM 100 ML BTL ONE (15:19)
[2017-05-18] MEDS ORDERED: LIDOCAINE 1% (MDV) 20 ML INJ ONE (15:19)
[2017-05-18 15:20] LABS: GLUCOSE 704 mg/dl (70-220)
[2017-05-18] MEDS ORDERED: HEPARIN 1000 UNITS/ML 10 ML INJ IV ONE (15:30)
[2017-05-18] MEDS ORDERED: FENTAnyl 50 MCG/ML VIAL ONE (15:33)
[2017-05-18] MEDS ORDERED: MIDAZOLAM 1 MG/ML 2 ML INJ ONE (15:33)
[2017-05-18] MEDS ORDERED: METHYLPREDNISOLONE 125 MG INJ ONE (15:37)
[2017-05-18] MEDS ORDERED: DIPHENHYDRAMINE 50 MG INJ ONE (15:37)
[2017-05-18] MEDS ORDERED: TICAGRELOR 90 MG TABLET ONE (15:48)
[2017-05-18] MEDS ORDERED: BIVALIRUDIN 250MG /NS 50 ML 50 ML IVPB ONE (15:48)
[2017-05-18] MEDS ORDERED: GLUCAGON 1 MG INJ IM PRN (16:00)
[2017-05-18] MEDS ORDERED: DEXTROSE 50% 50 ML SYRINGE IV PRN ×2 (16:00)
[2017-05-18] MEDS ORDERED: GLUCOSE GEL 15 GRAM TUBE BUCCAL PRN (16:00)
[2017-05-18] MEDS ORDERED: INSULIN REGULAR, HUMAN 100 UNIT/1 ML 3ML VIAL SC SCH (16:00)
[2017-05-18] MEDS ORDERED: GLUCOSE GEL 15 GRAM TUBE PO PRN ×2 (16:00)
[2017-05-18] MEDS ORDERED: NITROGLYCERIN (IC) 100 MCG/ML INJ ONE (16:12)
[2017-05-18] MEDS ORDERED: VERAPAMIL 5 MG INJ ONE (16:12)
[2017-05-18] MEDS ORDERED: ACETAMINOPHEN 325 MG TAB PO PRN (17:00)
[2017-05-18] MEDS ORDERED: OXYCODONE/ACETAMINOPHEN (5/325) TAB PO PRN (17:00)
--- NOTE | 2017-05-18 17:23 | OPR ---
Date/Time of Note Date/Time of Note DATE: 05/18/17 TIME: 17:10 Operative Report Procedure Date: May 18, 2017 Preoperative Diagnosis inferior STEMI Postoperative Diagnosis same Surgeon see signature line Cylinder Honer N/A Anesthesia Type: moderate sedation Estimated Blood Loss: minimal Transfusion none Specimen N/A Grafts/Implants none Complications none Procedure Description Ship'S Engineer: Torsten Iglesias MD Patient's office secretary: Dr. Adames Indication: 56 year old female with history of two-vessel bypass surgery in January, history of PCI of right coronary artery, peripheral vascular disease with carotid stenosis, poorly controlled diabetes and hypertension and dyslipidemia and probably COPD who presented with inferior ST elevation myocardial infarction Procure performed: EMERGENT #1 left heart catheterization and selective right and left coronary angiogram. selective SVG and DEE angiography #2 Right femoral angiogram 3. very complicated but Successful PTCA and stenting of right coronary artery using a 2.5 x 20 mm Synergy drug-eluting stent to the distal right coronary artery 4. Moderate sedation for more than 90 minutes Findings: 1. Left main: is calcified with 30% stenosis. it birfurcates to LAD & LCX. 2. LAD: has 90 % stenosis. DEE to LAD is patent. . 3. Left circumflex artery: is nondominant. it has 90% ostial stenosis. Saphenous vein graft to small obtuse marginal 1 is widely patent 4. RCA: is large dominant. it has multiple stent in the ostial/proximal/mid RCA with another stent at the distal right coronary artery. There was 100% in- stent thrombosis at the mid right coronary artery stent noted. Distal RCA between the 2 was then also had 90% stenosis. After successful PTCA stenting of this lesion there was no significant residual stenosis left. Procedure in detail: Written informed consent with obtained after risks benefits and alternatives discussed with the patient in detail. risks including but not limited to risk of infection vascular complications, bleeding complications, [place] stroke arrhythmia renal failure at even were discussed with the patient in detail. Patient was brought into the cardiac laborer general and placed in supine position. Right and left groin area was prepped and draped in regular sterile fashion and then he was in anesthetized using 1% lidocaine. Right femoral artery was cannulated and using modified seldinger technique a 6 Afghan sheath was placed in the right femoral artery. JR4 guiding catheter was advanced and engaged first in the saphenous vein graft obtuse marginal angiography was obtained. I tried to advance it into the right coronary artery was very difficult to engage into this vessel, due to anatomy of the right coronary artery as well as the previous ostial stenting which was probably protruding out. I was able to get decent enough angiographic view which showed completely occlusion of the right coronary artery. Try to advance the wire in cross into the lesion. However advance of any balloon kicked the guide out completely. It was extremely difficult to get engaged into this right coronary artery. The use multiple different guides to try to engage into the right coronary artery and have a decent support. Finally was able to advance the DEE into the right coronary artery. Run-through wire was used in cross into the lesion. I used that guide liner which was advanced into the right coronary artery was able to get better support. At this point a 2.5 x 12 mm and was used multiple times inflated throughout the lesion. Then I used a 2.5 x 20 mm Synergy drug-eluting stent which was deployed at the distal right coronary artery. The balloon of the stent was used and the old stents were postdilated throughout right coronary artery. Finally used a 3 x 12 mm noncompliant balloon which should be within the previous stent and postdilated the stent up to 20 miguel ángel. Final angiogram view was obtained to LAYLA-3 flow no evidence of dissection no significant degenerative stenosis. And I used the same DEE catheter which was advanced to engage the left internal mammary artery angiogram was obtained. JL4 catheter was advanced and engaged into the left main coronary artery and angiographic view was obtained. Pigtail was advanced to engage the left ventricle hemodynamics as recorded by pullback aortic pressure was measured. Right femoral angiogram was performed. Patient tolerated the procedure well with no complication. Patient was transferred to ICU in stable condition. contrast used: 125 cc visipaque Conclusions: very complicated but Successful PTCA stenting of the right coronary artery from 100% subacute thrombosis of the previous stent to no significant residual stenosis using a 2.5 x 24 mm stent. Recommendations: Aggressive medical therapy. aspirin indefinitely dual antiplatlet therapy with aspirin and Brilinta for the next 1 year ICU care overnight. TORSTEN IGLESIAS MD [facility] TORSTEN IGLESIAS MD May 18, 2017 17:23
[2017-05-18] MEDS: SOD CHLORIDE 0.9% 1,000 ML IV SCH ×2 (17:42→22:55)
[2017-05-18] MEDS: Regular insulin 100 Units/100 ml NS IV SCH ×4 (17:46→20:50)
--- NOTE | 2017-05-18 18:46 | CONS ---
Date/Time of Note Date/Time of Note DATE: 05/18/17 TIME: 18:40 Assessment/Plan Assessment/Plan Chief Complaint/Hosp Course 1. inferior STEMI 2. RCA stent thrombosis s/p emergent PCI RCA 3. DM: poorly controlled with severe hyperglycemia of > 700 4. HTN 5. CAD 6. HX PCI RCA 08/29 7. HX CABG ( DEE --> LAD, SVG ---> LCX 01/29) 8/ Ischemic cardiomyopathy 9. PAD with carotid stenosis 10. ex-smoker 11. CHF: stable now (chronic) Recommendation: Patient has been admitted to intensive care unit for very close monitoring. Right femoral sheath to be removed as soon as possible. This has been conveyed to the RN Patient has been started on insulin drip to be adjusted as per internal medicine. Electrolytes will be checked and adjusted accordingly Aspirin 81 mg daily will be continued. Brilinta 90 mg p.o. twice daily will be continued. We will place the patient on high-dose statin. Low-dose Coreg and JAXON inhibitor will be initiated and to be increased as tolerated. Echocardiogram has been ordered to be done tomorrow at least. Continue close monitoring in ICU More than 45 minutes critical care time was spent in management and treatment of this patient excluding any procedures. Thank you for his referral. I will continue to follow along with you at least until the patient is out of ICU. At this time patient to be followed by Dr. Adames and associate once is more stable. reji zee MD [facility] Problems: Consultation Date/Type/Reason Admit Date/Time May 18, 2017 at 17:30 Date of Consultation: May 18, 2017 Type of Consultation: EMERGENT interventional card Reason for Consultation STEMI Referring Provider: DARYL SR MD Hx of Present Illness 1. chest pain and abnormal ECG concerning for possible inf STEMI pt old record was reviewed and d/w pt DR Fox pt'scardiologist Dr Adames. emergent LHC/ javier possible PCI d/w pt and consent was obtained will take to [employer] as soon as [employer] is ready reji zee Emergent interventional cardiology consultation: CC: Hypoglycemia, chest pain HPI: Thank you for his referral. History of them from the patient discussion with her daughter discussion with emergency room physician Dr. Arrieta discussion with patient and fixed income manager Dr. Adames. Her old record was also extensively reviewed. This is a unfortunate 56-year-old female with history of severe coronary artery disease status post PCI of the right coronary artery in August [address] Adames, history of two-vessel bypass surgery in January of this year who came to emergency room because mostly of hyperglycemia. Patient reported that her sugar was very high called paramedics. Title Attorney ECG was read by computer as ST elevation OH. Patient was brought into the emergency room EKG was repeated at that time felt that the patient does not meet the criteria for ST elevation OH by ER physician. Labs was sent. Troponin was negative effect at that time. Patient also has reported of chest pain she said that she fell down did not hit her chest though but she was continued to have 8 out of 10 chest pain while time in the emergency room was only 4 or 5 out of 10. She could not explain it well. EKG at that time was repeated repeat EKG was shown that patient had slight ST elevation inferiorly. At this time I was consulted emergently. Patient was seen by me immediately after I was called. At that time I felt that the EKG meet the criteria for ST elevation OH and patient should undergo immediate cardiac catheterization. Patient underwent diagnostic angiography by myself and had a complicated difficult PCI of the right coronary artery which was 100% occluded in the stent. Clinically patient chest pain has completely resolved. Denies any palpitation to me. She has minor bleeding/bruising at the site of the sheath/catheter in the right groin. Medication was reviewed as per medical reconciliation sheet Social history patient has quit smoking after her bypass surgery Family history denies any early coronary artery disease Allergies to fish containing products and ibuprofen Past medical history: Poorly controlled diabetes Extensive coronary artery disease as above mentioned with history of coronary bypass graft PCI. History of carotid stenosis and peripheral vascular disease Hypertension Dyslipidemia Ischemic cardiomyopathy Review of system as above Past Surgical History Past Surgical Hx: coronary bypass surgery, other Social History Smoking Status: Former smoker Exam/Review of Systems Vital Signs Vitals Vital Signs Date Time Temp Pulse Resp B/P Pulse Ox O2 Delivery O2 Flow Rate FiO2 05/18/17 18:21 98.3 96 123/53 99 Room Air 05/18/17 14:48 2 05/18/17 13:46 18 Exam General: no acute distress HEENT: NC/AT. pupils are equal. round. NECK: NO JVD. no stridor. CV: RRR. systolic murmur; no gallop or rubs. PULM: no wheezing or rhonchi. GI: SOFT, NT, ND, no rebound or guarding Extremity: trace B/L LE edema. no clubbing. neuro: awake and alert, OX3. Psych: calm and pleasant rectal: deferred Vascular: R fem s/p catheter. mild oozing ECG NSR inf STEMI CXR reviewed. javier angio 05/18/17: 1. Left main: is calcified with 30% stenosis. it birfurcates to LAD & LCX. 2. LAD: has 90 % stenosis. DEE to LAD is patent. . 3. Left circumflex artery: is nondominant. it has 90% ostial stenosis. Saphenous vein graft to small obtuse marginal 1 is widely patent 4. RCA: is large dominant. it has multiple stent in the ostial/proximal/mid RCA with another stent at the distal right coronary artery. There was 100% in- stent thrombosis at the mid right coronary artery stent noted. Distal RCA between the 2 was then also had 90% stenosis. After successful PTCA stenting of this lesion there was no significant residual stenosis left. Results Result Diagram: 05/18/17 1345 05/18/17 1345 Results 24 hrs Laboratory Tests Test 05/18/17 13:45 05/18/17 13:47 05/18/17 16:41 05/18/17 17:26 White Blood Count 7.5 Red Blood Count 4.52 Hemoglobin 13.3 Hematocrit 40.7 Mean Corpuscular Volume 90.0 Mean Corpuscular Hemoglobin 29.4 Mean Corpuscular Hemoglobin Concent 32.7 Red Cell Distribution Width 12.9 Platelet Count 290 Mean Platelet Volume 9.7 Neutrophils % 69.8 Lymphocytes % 16.0 Monocytes % 8.0 Eosinophils % 4.8 Basophils % 1.1 Nucleated Red Blood Cells % 0.0 Neutrophils # 5.2 Lymphocytes # 1.2 Monocytes # 0.6 Eosinophils # 0.4 Basophils # 0.1 Nucleated Red Blood Cells # 0.0 Prothrombin Time 12.3 Prothrombin Time Ratio 1.0 INR International Normalized Ratio 0.91 Activated Partial Thromboplast Time 28.4 Sodium Level 134 L Potassium Level 5.1 Chloride Level 99 Carbon Dioxide Level 24 Anion Gap 16 Blood Urea Nitrogen 16 Creatinine 0.62 Glucose Level 704 *H Lactic Acid Level 2.0 Calcium Level 8.9 Total Bilirubin 1.1 Direct Bilirubin 0.00 Indirect Bilirubin 1.1 Aspartate Amino Transf (AST/SGOT) 24 Alanine Aminotransferase (ALT/SGPT) 32 Alkaline Phosphatase 146 H Troponin I < 0.012 Total Protein 6.7 Albumin 4.0 Globulin 2.70 Albumin/Globulin Ratio 1.48 Blood Gas Specimen Source Blood arterial Arterial Blood Date Drawn 05/18/2017 2:05:03 PM Arterial Blood pH (Temp corrected) 7.523 H Arterial Blood pCO2 (Temp correct) 26.9 L Arterial Blood pO2 (Temp corrected) 90.4 Arterial Blood HCO3 21.6 L Arterial Blood Base Excess 0.1 Arterial Blood Oxygen Saturation 97.4 Miguel Test ACCEPTAB Arterial Blood Gas Puncture Site Left Radial Arterial Blood Carboxyhemoglobin 0.4 Arterial Blood Methemoglobin 0.3 Blood Gas A-a O2 Differential 27.1 H Oxyhemoglobin Percent 96.7 Total Hemoglobin 13.6 Blood Gas Temperature 37.0 Blood Gas Modality ROOM AIR FiO2 21.0 Blood Gas Notified Whom [place] Blood Gas Notified Time 05/18/2017 2:09:07 PM Bedside Glucose 446 *H 364 H Test 05/18/17 17:49 Bedside Glucose 296 H Medications Medications Current Medications Miscellaneous Information 1 ea NOTE XX ; Start 05/18/17 at 16:00 Glucose (Glutose) 15 gm Q15M PRN PO DECREASED GLUCOSE; Start 05/18/17 at 16:00 Glucose (Glutose) 22.5 gm Q15M PRN PO DECREASED GLUCOSE; Start 05/18/17 at 16: 00 Dextrose (D50w Syringe) 25 ml Q15M PRN IV DECREASED GLUCOSE; Start 05/18/17 at 16:00 Dextrose (D50w Syringe) 50 ml Q15M PRN IV DECREASED GLUCOSE; Start 05/18/17 at 16:00 Glucagon (Glucagen) 1 mg Q15M PRN IM DECREASED GLUCOSE; Start 05/18/17 at 16:00 Glucose (Glutose) 15 gm Q15M PRN BUCCAL DECREASED GLUCOSE; Start 05/18/17 at 16 :00 Aspirin (Halfprin) 81 mg DAILY PO ; Start 05/19/17 at 09:00 Ticagrelor (Brilinta) 90 mg BID PO ; Start 05/18/17 at 21:00 Acetaminophen (Tylenol Tab) 650 mg Q4H PRN PO NON-CARDIAC PAIN LEVEL 1-3; Start 05/18/17 at 17:00 Oxycodone/ Acetaminophen (Percocet (5/ 325)) 1 tab Q4H PRN PO REPORTED NON- CARDIAC PAIN 4-7; Start 05/18/17 at 17:00 Morphine Sulfate (morphine) 1 mg Q1H PRN IV PAIN NOT RELIEVED BY OTHERS; Start 05/18/17 at 17:00 Carvedilol (Coreg) 3.125 mg BID PO ; Start 05/18/17 at 21:00 Atorvastatin Calcium (Lipitor) 80 mg DAILY@21 PO ; Start 05/18/17 at 21:00 Lisinopril 2.5 mg 2.5 mg DAILY PO ; Start 05/19/17 at 09:00 Sodium Chloride (NS) 1,000 ml @ 125 mls/hr Q8H IV Last administered on t 17:42; Admin Dose 125 MLS/HR; Start 05/18/17 at 17:00; Stop 05/19/17 at 02: 59 REJI ZEE MD May 18, 2017 18:46
[2017-05-18 19:30] LABS: ANION GAP 13 (8-16); BLOOD UREA NITROGEN 13 mg/dl (7-20); CALCIUM 8.8 mg/dl (8.4-10.2); CARBON DIOXIDE 24 mmol/L (21-31); CHLORIDE 108 mmol/L (97-110); CREATINE KINASE 36 IU/L (23-200); CREATININE 0.49 mg/dl (0.44-1.00); GLUCOSE 177 mg/dl (70-220); POTASSIUM 3.4 mmol/L (3.5-5.1); SODIUM 142 mmol/L (135-144)
[2017-05-18 19:44] LABS: CK-MB 1.44 ng/ml (0.0-2.4)
[2017-05-18 19:46] LABS: TROPONIN-I < 0.012 ng/ml (0.00-0.12)
[2017-05-18] MEDS: morphine 2 MG INJ IV PRN (20:28)
[2017-05-18] MEDS: ATORVASTATIN 80 MG TAB PO SCH (21:00)
[2017-05-18] MEDS ORDERED: ONDANSETRON 4 MG INJ IV PRN (21:00)
[2017-05-18] MEDS: TICAGRELOR 90 MG TABLET PO SCH (21:00)
[2017-05-18 23:38] LABS: CREATINE KINASE 30 IU/L (23-200)
[2017-05-18 23:50] LABS: CK-MB 1.35 ng/ml (0.0-2.4)
[2017-05-18 23:53] LABS: TROPONIN-I < 0.012 ng/ml (0.00-0.12)
[2017-05-19] VITALS (24 sets, daily range): BP systolic 96–123; BP diastolic 38–56; PULSE 81–99; RESP 15–29
--- NOTE | 2017-05-19 06:55 | HP ---
Date/Time of Note Date/Time of Note DATE: 05/19/17 TIME: 06:48 Assessment/Plan VTE Prophylaxis VTE Prophylaxis Intervention: SCD's Lines/Catheters IV Catheter Type (from [facility]): Peripheral IV Urinary Cath still in place: No Assessment/Plan Assessment/Plan ASSESSMENT 56-year-old female with a history of CAD, status post PCI with stent to RCA, recent CABG, COPD, type 1 diabetes, hypertension, dyslipidemia presented with chest pain and found to have STEMI status post emergent left heart catheterization and selective right and left coronary angiogram, selective SVG and DEE angiography and a very complicated but successful PTCA and stenting of RCA. PLAN Continue ICU monitoring Continue cardiac medications Follow-up cardiology recommendations Insulin drip for severe hypoglycemia Continue Synthroid for hypothyroidism Check A1c, fasting lipids and TSH in a.m. HPI/ROS Admit Date/Time Admit Date/Time May 18, 2017 at 17:30 Hx of Present Illness This is a 56-year-old female with a history of CAD, status post PCI with stent to RCA, recent CABG, COPD, type 1 diabetes, hypertension, dyslipidemia presented with chest pain and found to have STEMI. Troponin was negative. Patient was taken to [facility] emerg[facility] and had left heart catheterization and selective right and left coronary angiogram. selective SVG and DEE angiography, very complicated but successful PTCA and stenting of RCA. Please see the cardiac cath report for complete information. Patient is currently ICU and is in stable condition. PMH/Family/Social Past Surgical History Past Surgical Hx: coronary bypass surgery, other Social History Smoking Status: Former smoker Exam/Review of Systems Vital Signs Vitals Vital Signs Date Time Temp Pulse Resp B/P Pulse Ox O2 Delivery O2 Flow Rate FiO2 05/19/17 04:00 82 05/19/17 02:00 18 99/40 96 Room Air 05/19/17 00:00 97.9 05/18/17 14:48 2 Intake and Output 05/18/17 05/18/17 05/19/17 15:00 23:00 07:00 Intake Total 365 ml 210 ml Output Total 400 ml Balance -35 ml 210 ml Exam Constitutional: other (No acute distress) Head: atraumatic, normocephalic Eyes: EOMI, PERRL Respiratory: clear to auscultation, normal air movement Cardiovascular: nl pulses, regular rate and rhythm Gastrointestinal: non-tender, soft Extremities: normal pulses Labs Result Diagram: 05/18/17 1345 05/18/17 1900 Medications Medications Current Medications Miscellaneous Information 1 ea NOTE XX ; Start 05/18/17 at 16:00 Glucose (Glutose) 15 gm Q15M PRN PO DECREASED GLUCOSE; Start 05/18/17 at 16:00 Glucose (Glutose) 22.5 gm Q15M PRN PO DECREASED GLUCOSE; Start 05/18/17 at 16: 00 Dextrose (D50w Syringe) 25 ml Q15M PRN IV DECREASED GLUCOSE; Start 05/18/17 at 16:00 Dextrose (D50w Syringe) 50 ml Q15M PRN IV DECREASED GLUCOSE; Start 05/18/17 at 16:00 Glucagon (Glucagen) 1 mg Q15M PRN IM DECREASED GLUCOSE; Start 05/18/17 at 16:00 Glucose (Glutose) 15 gm Q15M PRN BUCCAL DECREASED GLUCOSE; Start 05/18/17 at 16 :00 Aspirin (Halfprin) 81 mg DAILY PO ; Start 05/19/17 at 09:00 Ticagrelor (Brilinta) 90 mg BID PO Last administered on 05/18/17 21:00; Admin Dose 90 MG; Start 05/18/17 at 21:00 Acetaminophen (Tylenol Tab) 650 mg Q4H PRN PO NON-CARDIAC PAIN LEVEL 1-3; Start 05/18/17 at 17:00 Oxycodone/ Acetaminophen (Percocet (5/ 325)) 1 tab Q4H PRN PO REPORTED NON- CARDIAC PAIN 4-7; Start 05/18/17 at 17:00 Morphine Sulfate (morphine) 1 mg Q1H PRN IV PAIN NOT RELIEVED BY OTHERS Last administered on 05/18/17 20:28; Admin Dose 1 MG; Start 05/18/17 at 17:00 Carvedilol (Coreg) 3.125 mg BID PO Last administered on 05/18/17 21:00; Admin Dose 3.125 MG; Start 05/18/17 at 21:00 Atorvastatin Calcium (Lipitor) 80 mg DAILY@21 PO Last administered on 21:00; Admin Dose 80 MG; Start 05/18/17 at 21:00 Lisinopril (Zestril) 2.5 mg DAILY PO ; Start 12/5/17 at 09:00 Ondansetron HCl (Zofran Inj) 4 mg Q6H PRN IV NAUSEA AND/OR VOMITING Last administered on 05/18/17t 20:54; Admin Dose 4 MG; Start 05/18/17 at 21:00 BANDAR ROY MD May 19, 2017 06:55
[2017-05-19 07:02] LABS: INR 1.03; PROTIME 13.6 Sec (11.9-14.9); PT RATIO 1.1
[2017-05-19 07:14] LABS: CK-MB 1.43 ng/ml (0.0-2.4); TROPONIN-I 0.031 ng/ml (0.00-0.12)
[2017-05-19 08:18] LABS: ALBUMIN 3.1 g/dl (3.3-4.9); ALBUMIN/GLOBULIN RATIO 1.06; BILIRUBIN,INDIRECT 0.9 mg/dl (0-1.1); BILIRUBIN,TOTAL 0.9 mg/dl (0.2-1.3); CALCIUM 9.2 mg/dl (8.4-10.2); CHOL/HDL RATIO 3.1 RATIO; CREATININE 0.63 mg/dl (0.44-1.00); MAGNESIUM 1.7 mg/dl (1.7-2.5); POTASSIUM 4.4 mmol/L (3.5-5.1)
[2017-05-19 08:48] LABS: THYROID STIMULATING HORMONE 0.129 MIU/L (0.465-4.680)
[2017-05-19] MEDS: LISINOPRIL 5 MG TAB PO SCH (09:00)
[2017-05-19] MEDS: ASPIRIN (EC) 81 MG TAB PO SCH (09:00)
[2017-05-19] MEDS: TICAGRELOR 90 MG TABLET PO SCH ×2 (09:00→20:02)
[2017-05-19] MEDS: INSULIN ASPART [NOVOLOG] 3 ML PEN SC SCH ×4 (11:30→20:19)
[2017-05-19] MEDS ORDERED: HYPOGLYCEMIA PROTOCOL when Glucose is <70 mg/dL or symptomatic <90 mg/dL. XX ONE (11:30)
[2017-05-19] MEDS ORDERED: Discontinue current oral sulfonylureas (glyburide, glipizide, and/or glimepiride) prior to XX ONE (11:30)
[2017-05-19] MEDS ORDERED: MAGNESIUM SULFATE 2 GM/50 ML 50 ML IVPB ONE (12:00)
--- NOTE | 2017-05-19 12:09 | RADRPT ---
Echocardiogram Report Patient Name: POOJA NGUYEN Gender: Female Date: 1960 Study Date: 19-May-2017 Regional Sales Manager: Annita Shrestha RDCS Location: [id number] Ref. Physician: TORSTEN IGLESIAS Quality: Good Procedures: Transthoracic echocardiogram with complete 2D, M-Mode, and doppler examination. Indications: STEMI. 2D/M Mode Doppler Measurement Value Normal Ranges Measurement Value Normal Ranges LVIDd 2D 3.6 3.5 - 5.6 cm AV Peak Geo 1.6 m/sec LVIDs 2D 2.2 2.1 - 4.1 cm AV Peak PG 10.1 mmHg LVPWd 2D 0.7 0.6 - 1.1 cm AI Peak PG 44.3 mmHg IVSd 2D 0.7 0.6 - 1.1 cm AI Peak Geo 3.3 m/sec AoR Diam 2D 2.5 2.0 - 3.7 cm AI PHT 339.6 msec EDV 2D 52.9 cm3 LVOT Peak Geo 1.2 m/sec ESV 2D 10.2 cm3 LVOT Peak PG 5.4 mmHg LA Dimen 2D 2.9 2.3 - 4.0 cm MV E Peak Geo 0.7 m/sec MV A Peak Geo 0.9 m/sec MV E/A 0.8 MV Decel Time 133 msec MV Decel [place] 5 MV E/A 0.8 TR Peak Geo 2.8 m/sec TR Peak PG 31.2 mmHg RVSP 41.0 mmHg Findings Left Ventricle: Lower limits of normal systolic function. Normal left ventricular cavity size. Normal left ventricular wall thickness. Paradoxical septal motion consistent with post pericardectomy status. Ejection fraction is visually estimated at 50 %. Tissue Doppler/Mitral Doppler indices are consistent with impaired relaxation (Stage I diastolic dysfunction). Right Ventricle: Normal right ventricular size. Normal right ventricular systolic function. Left Atrium: The left atrium is normal in size. Right Atrium: The right atrium is normal in size. Mitral Valve: Mitral valve leaflets appear mildly thickened. Mild mitral annular calcification. Trace mitral regurgitation. Aortic Valve: Aortic valve not well visualized. No hemodynamically significant aortic stenosis by doppler. Aortic cusps appear mildly calcified. Mild aortic valve regurgitation. Tricuspid Valve: Normal appearance of the tricuspid valve. Estimated peak PA systolic pressure 41 mmHg. There is mild tricuspid regurgitation. Pulmonic Valve: Normal pulmonic valve appearance. Pericardium: Normal pericardium with no significant pericardial effusion. Aorta: Normal aortic root. IVC: Normal size and normal respiratory collapse consistent with normal right atrial pressure. Conclusions 1.Lower limits of normal systolic function. Normal left ventricular cavity size. Normal left ventricular wall thickness. Paradoxical septal motion consistent with post pericardectomy status. Ejection fraction is visually estimated at 50 %. Tissue Doppler/Mitral Doppler indices are consistent with impaired relaxation (Stage I diastolic dysfunction). 2.Mitral valve leaflets appear mildly thickened. Mild mitral annular calcification. Trace mitral regurgitation. 3.Aortic valve not well visualized. No hemodynamically significant aortic stenosis by doppler. Aortic cusps appear mildly calcified. Mild aortic valve regurgitation. 4.Normal appearance of the tricuspid valve. Estimated peak PA systolic pressure 41 mmHg. There is mild tricuspid regurgitation. Electronically Signed By: Torsten Iglesias 19-May-2017 12:08:41 -0800 Patient Name: POOJA NGUYEN Study Date: 19-May-2017 [id number]
--- NOTE | 2017-05-19 12:30 | CONS ---
Date/Time of Note Date/Time of Note DATE: 05/19/17 TIME: 12:27 Consult Date/Type/Reason Admit Date/Time May 18, 2017 at 17:30 Initial Consult Date 05/18/17 Type of Consultation: interventional cardiology Ordering Provider: DARYL SR MD Subjective S: d/w staff and family rhythm was reviewed pt remains in ICU on insulin drip. no more chest pain or pressure or palpitations no groin pain O: General: no acute distress HEENT: NC/AT. pupils are equal. round. NECK: NO JVD. no stridor. CV: RRR. systolic murmur; no gallop or rubs. PULM: no wheezing or rhonchi. GI: SOFT, NT, ND, no rebound or guarding Extremity: trace B/L LE edema. no clubbing. neuro: awake and alert, OX3. Psych: calm and pleasant rectal: deferred Vascular: R fem s/p catheter. mild oozing ECG NSR inf STEMI CXR reviewed. javier angio 05/18/17: 1. Left main: is calcified with 30% stenosis. it birfurcates to LAD & LCX. 2. LAD: has 90 % stenosis. DEE to LAD is patent. . 3. Left circumflex artery: is nondominant. it has 90% ostial stenosis. Saphenous vein graft to small obtuse marginal 1 is widely patent 4. RCA: is large dominant. it has multiple stent in the ostial/proximal/mid RCA with another stent at the distal right coronary artery. There was 100% in- stent thrombosis at the mid right coronary artery stent noted. Distal RCA between the 2 was then also had 90% stenosis. After successful PTCA stenting of this lesion there was no significant residual stenosis left. echo reviewed; EF 50% Objective Vital Signs Date Time Temp Pulse Resp B/P Pulse Ox O2 Delivery O2 Flow Rate FiO2 05/19/17 11:00 88 20 111/45 96 Room Air 05/19/17 08:00 98.3 05/18/17 14:48 2 Intake and Output 05/18/17 05/18/17 05/19/17 14:59 22:59 06:59 Intake Total 363 ml 295 ml Output Total 400 ml 300 ml Balance -37 ml -5 ml Results/Medications Result Diagram: 05/18/17 1345 05/19/17 0554 Results 24 hrs Laboratory Tests Test 05/18/17 13:45 05/18/17 13:47 05/18/17 16:41 05/18/17 17:26 White Blood Count 7.5 Red Blood Count 4.52 Hemoglobin 13.3 Hematocrit 40.7 Mean Corpuscular Volume 90.0 Mean Corpuscular Hemoglobin 29.4 Mean Corpuscular Hemoglobin Concent 32.7 Red Cell Distribution Width 12.9 Platelet Count 290 Mean Platelet Volume 9.7 Neutrophils % 69.8 Lymphocytes % 16.0 Monocytes % 8.0 Eosinophils % 4.8 Basophils % 1.1 Nucleated Red Blood Cells % 0.0 Neutrophils # 5.2 Lymphocytes # 1.2 Monocytes # 0.6 Eosinophils # 0.4 Basophils # 0.1 Nucleated Red Blood Cells # 0.0 Prothrombin Time 12.3 Prothrombin Time Ratio 1.0 INR International Normalized Ratio 0.91 Activated Partial Thromboplast Time 28.4 Sodium Level 134 L Potassium Level 5.1 Chloride Level 99 Carbon Dioxide Level 24 Anion Gap 16 Blood Urea Nitrogen 16 Creatinine 0.62 Glucose Level 704 *H Lactic Acid Level 2.0 Calcium Level 8.9 Total Bilirubin 1.1 Direct Bilirubin 0.00 Indirect Bilirubin 1.1 Aspartate Amino Transf (AST/SGOT) 24 Alanine Aminotransferase (ALT/SGPT) 32 Alkaline Phosphatase 146 H Troponin I < 0.012 Total Protein 6.7 Albumin 4.0 Globulin 2.70 Albumin/Globulin Ratio 1.48 Blood Gas Specimen Source Blood arterial Arterial Blood Date Drawn 05/18/2017 2:05:03 PM Arterial Blood pH (Temp corrected) 7.523 H Arterial Blood pCO2 (Temp correct) 26.9 L Arterial Blood pO2 (Temp corrected) 90.4 Arterial Blood HCO3 21.6 L Arterial Blood Base Excess 0.1 Arterial Blood Oxygen Saturation 97.4 Miguel Test ACCEPTAB Arterial Blood Gas Puncture Site Left Radial Arterial Blood Carboxyhemoglobin 0.4 Arterial Blood Methemoglobin 0.3 Blood Gas A-a O2 Differential 27.1 H Oxyhemoglobin Percent 96.7 Total Hemoglobin 13.6 Blood Gas Temperature 37.0 Blood Gas Modality ROOM AIR FiO2 21.0 Blood Gas Notified Whom [place] Blood Gas Notified Time 05/18/2017 2:09:07 PM Bedside Glucose 446 *H 364 H Test 05/18/17 17:49 05/18/17 19:00 05/18/17 20:45 05/18/17 20:50 Bedside Glucose 296 H 195 81 Sodium Level 142 Potassium Level 3.4 L Chloride Level 108 Carbon Dioxide Level 24 Anion Gap 13 Blood Urea Nitrogen 13 Creatinine 0.49 Glucose Level 177 # Lactic Acid Level 2.7 *H 3.6 *H Calcium Level 8.8 Creatine Kinase 36 Creatine Kinase Index 4.0 Creatinine Kinase MB (Mass) 1.44 Troponin I < 0.012 Test 05/18/17 21:44 05/18/17 22:34 05/18/17 22:36 05/18/17 23:12 Bedside Glucose 74 139 118 Creatine Kinase 30 Creatine Kinase Index 4.5 Creatinine Kinase MB (Mass) 1.35 Troponin I < 0.012 Test 05/18/17 23:31 05/19/17 00:41 05/19/17 01:41 05/19/17 02:44 Bedside Glucose 103 124 114 82 Test 05/19/17 03:38 05/19/17 04:34 05/19/17 05:39 05/19/17 05:54 Bedside Glucose 85 93 113 Prothrombin Time 13.6 Prothrombin Time Ratio 1.1 INR International Normalized Ratio 1.03 Sodium Level 147 H Potassium Level 4.4 Chloride Level 110 Carbon Dioxide Level 27 Anion Gap 14 Blood Urea Nitrogen 12 Creatinine 0.63 Glucose Level 115 # Lactic Acid Level 1.9 Calcium Level 9.2 Magnesium Level 1.7 Total Bilirubin 0.9 Direct Bilirubin 0.00 Indirect Bilirubin 0.9 Aspartate Amino Transf (AST/SGOT) 17 Alanine Aminotransferase (ALT/SGPT) 28 Alkaline Phosphatase 74 Creatine Kinase 23 Creatine Kinase Index 6.2 Creatinine Kinase MB (Mass) 1.43 Troponin I 0.031 B-Type Natriuretic Peptide 1670 H Total Protein 6.0 L Albumin 3.1 L Globulin 2.90 Albumin/Globulin Ratio 1.06 Triglycerides Level 72 Cholesterol Level 124 LDL Cholesterol, Calculated 71 HDL Cholesterol 39 Cholesterol/HDL Ratio 3.1 Thyroid Stimulating Hormone (TSH) 0.129 L Free Thyroxine 1.74 Digoxin Level < 0.4 L Test 05/19/17 06:34 05/19/17 08:00 05/19/17 08:42 05/19/17 09:34 Bedside Glucose 130 145 121 101 Test 05/19/17 10:49 05/19/17 11:33 Bedside Glucose 111 99 Medications Current Medications Miscellaneous Information 1 ea NOTE XX ; Start 05/18/17 at 16:00 Glucose (Glutose) 15 gm Q15M PRN PO DECREASED GLUCOSE; Start 05/18/17 at 16:00 Glucose (Glutose) 22.5 gm Q15M PRN PO DECREASED GLUCOSE; Start 05/18/17 at 16: 00 Dextrose (D50w Syringe) 25 ml Q15M PRN IV DECREASED GLUCOSE; Start 05/18/17 at 16:00 Dextrose (D50w Syringe) 50 ml Q15M PRN IV DECREASED GLUCOSE; Start 05/18/17 at 16:00 Glucagon (Glucagen) 1 mg Q15M PRN IM DECREASED GLUCOSE; Start 05/18/17 at 16:00 Glucose (Glutose) 15 gm Q15M PRN BUCCAL DECREASED GLUCOSE; Start 05/18/17 at 16 :00 Aspirin (Halfprin) 81 mg DAILY PO Last administered on 05/19/17 09:00; Admin Dose 81 MG; Start 05/19/17 at 09:00 Ticagrelor (Brilinta) 90 mg BID PO Last administered on 05/19/17 09:00; Admin Dose 90 MG; Start 05/18/17 at 21:00 Acetaminophen (Tylenol Tab) 650 mg Q4H PRN PO NON-CARDIAC PAIN LEVEL 1-3; Start 05/18/17 at 17:00 Oxycodone/ Acetaminophen (Percocet (5/ 325)) 1 tab Q4H PRN PO REPORTED NON- CARDIAC PAIN 4-7; Start 05/18/17 at 17:00 Morphine Sulfate (morphine) 1 mg Q1H PRN IV PAIN NOT RELIEVED BY OTHERS Last administered on 05/18/17 20:28; Admin Dose 1 MG; Start 05/18/17 at 17:00 Carvedilol (Coreg) 3.125 mg BID PO Last administered on 05/19/17 10:00; Admin Dose 3.125 MG; Start 05/18/17 at 21:00 Atorvastatin Calcium (Lipitor) 80 mg DAILY@21 PO Last administered on 21:00; Admin Dose 80 MG; Start 05/18/17 at 21:00 Lisinopril (Zestril) 2.5 mg DAILY PO Last administered on 05/19/17 09:00; Admin Dose 2.5 MG; Start 05/19/17 at 09:00 Ondansetron HCl (Zofran Inj) 4 mg Q6H PRN IV NAUSEA AND/OR VOMITING Last administered on 05/18/17t 20:54; Admin Dose 4 MG; Start 05/18/17 at 21:00 Diagnostic Test (Pha) (Accu-Chek) 1 ea 02 XX ; Start 05/20/17 at 02:00 Insulin Glargine 15 unit 15 unit DAILY@08 SC ; Start 05/19/17 at 12:15 Magnesium Sulfate (Magnesium Sulfate 2 Gm/50 ml) 50 ml @ 25 mls/hr ONCE ONCE IVPB ; Start 05/19/17 at 12:00; Stop 05/19/17 at 13:59 Assessment/Plan Chief Complaint/Hosp Course 1. inferior STEMI: aborted with early intervention 2. RCA stent thrombosis s/p emergent PCI RCA 3. DM: poorly controlled with severe hyperglycemia of > 700 4. HTN 5. CAD 6. HX PCI RCA 08/29 7. HX CABG ( DEE --> LAD, SVG ---> LCX 01/29) 8/ Ischemic cardiomyopathy 9. PAD with carotid stenosis 10. ex-smoker 11. CHF: stable now (chronic) Recommendation: Patient has been admitted to intensive care unit for very close monitoring and insulin drip. Patient has been started on insulin drip to be adjusted as per internal medicine. Electrolytes will be checked and adjusted accordingly Aspirin 81 mg daily will be continued. Brilinta 90 mg p.o. twice daily will be continued. We will place the patient on high-dose statin. cont Low-dose Coreg and JAXON inhibitor, to be increased as tolerated. Echocardiogram reviewed personally Continue close monitoring in ICU More than 38 minutes critical care time was spent in management and treatment of this patient excluding any procedures. Thank you for his referral. I will continue to follow along with you until tomorrow, at which time patient will be followed by her regular feed research technician Dr. Adames . reji zee MD [facility] Problems: REJI ZEE MD May 19, 2017 12:30
[2017-05-19] MEDS: INSULIN GLARGINE [LANtus] 3 ML PEN SC SCH (13:45)
[2017-05-19 14:15] LABS: CK-MB 1.2 ng/ml (0.0-2.4); TROPONIN-I 0.027 ng/ml (0.00-0.12)
--- NOTE | 2017-05-19 14:39 | RADRPT ---
Vent Rate: 96 bpm RR Interval: 0 msec [place] Interval: 144 msec QRS Duration: 82 msec QT Interval: 352 msec QTC Interval: 444 msec P-R-T [place]: 50 - 88 - 70 degrees Normal sinus rhythm Septal infarct , age undetermined Abnormal ECG Electronically Signed By: Mika Clark [id number]
--- NOTE | 2017-05-19 14:40 | RADRPT ---
Vent Rate: 91 bpm RR Interval: 0 msec [place] Interval: 158 msec QRS Duration: 74 msec QT Interval: 354 msec QTC Interval: 435 msec P-R-T [place]: 71 - 37 - 38 degrees Normal sinus rhythm Low voltage QRS Cannot rule out Anteroseptal infarct , age undetermined Abnormal ECG Electronically Signed By: Mika Clark [id number]
[2017-05-19] MEDS: ATORVASTATIN 80 MG TAB PO SCH (20:04)
[2017-05-20] VITALS (12 sets, daily range): BP systolic 105–123; BP diastolic 50–60; PULSE 76–85; RESP 16–20
[2017-05-20] MEDS: ACCU-CHEK XX SCH (02:32)
[2017-05-20 07:21] LABS: BASOPHIL # 0.1 10^3/ul (0.0-0.1); BASOPHILS % 0.9 % (0.0-2.0); EOSINOPHILS # 0.3 10^3/ul (0.0-0.5); EOSINOPHILS % 4.7 % (0.0-7.0); HEMATOCRIT 33.4 % (37.0-47.0); HEMOGLOBIN 10.9 g/dl (12.0-16.0); LYMPHOCYTES # 1.3 10^3/ul (0.8-2.9); LYMPHOCYTES % 18.6 % (15.0-51.0); MEAN CORPUSCULAR HEMOGLOBIN 29.9 pg (29.0-33.0); MEAN CORPUSCULAR HGB CONC 32.6 g/dl (32.0-37.0); MEAN CORPUSCULAR VOLUME 91.5 fl (82.0-101.0); MEAN PLATELET VOLUME 9.5 fl (7.4-10.4); MONOCYTE # 0.5 10^3/ul (0.3-0.9); MONOCYTES % 7.7 % (0.0-11.0); NEUTROPHIL # 4.7 10^3/ul (1.6-7.5); NEUTROPHILS % 67.7 % (39.0-77.0); PLATELET COUNT 225 10^3/UL (140-415); RED BLOOD COUNT 3.65 10^6/ul (4.20-5.40); RED CELL DISTRIBUTION WIDTH 13.1 % (11.5-14.5)
[2017-05-20 07:46] LABS: CALCIUM 8.7 mg/dl (8.4-10.2); CREATININE 0.68 mg/dl (0.44-1.00); MAGNESIUM 1.8 mg/dl (1.7-2.5); PHOSPHORUS 3.6 mg/dl (2.5-4.9); POTASSIUM 4.9 mmol/L (3.5-5.1)
[2017-05-20] MEDS: INSULIN ASPART [NOVOLOG] 3 ML PEN SC SCH ×7 (08:23→21:00)
[2017-05-20] MEDS: INSULIN GLARGINE [LANtus] 3 ML PEN SC SCH (08:24)
[2017-05-20] MEDS: TICAGRELOR 90 MG TABLET PO SCH ×2 (08:28→21:23)
[2017-05-20] MEDS: ASPIRIN (EC) 81 MG TAB PO SCH (08:28)
[2017-05-20] MEDS: LISINOPRIL 5 MG TAB PO SCH (08:29)
[2017-05-20] MEDS: morphine 2 MG INJ IV PRN ×2 (12:09→21:20)
[2017-05-20] MEDS ORDERED: INSULIN GLARGINE [LANtus] 3 ML PEN SC ONE (12:30)
[2017-05-20] MEDS ORDERED: ALBUTEROL HFA 8 GM INHALER INH PRN (14:00)
[2017-05-20] MEDS ORDERED: IBUPROFEN 200 MG TAB PO ONE (14:00)
[2017-05-20] MEDS ORDERED: IBUPROFEN 400 MG TAB PO PRN (14:00)
--- NOTE | 2017-05-20 14:11 | CONS ---
Date/Time of Note Date/Time of Note DATE: 05/20/17 TIME: 14:05 Assessment/Plan Assessment/Plan Chief Complaint/Hosp Course IMP: 1. Stent thrombosis s/p PTCA/stent to RCA-adfmits to medical noncompliance with brilinta at times missing second dose 2.angina-secondary to above. Now improved 3.HTN 4.HL 5. Cad s/p cabg 6.COPD Recc: -Tele -serial ecg's -Contineu asa/brilinta nd stress importance of strict adherence to anti- platelet agents -Contineu coreg/zestril; -Continue statin -If remains stable then d/.c plannning from cardiac standpoint. Problems: Consultation Date/Type/Reason Admit Date/Time May 18, 2017 at 17:30 Initial Consult Date 05/18/17 Type of Consultation: cardiology Reason for Consultation angina s/p stent to rca Referring Provider: DARYL SR MD Exam/Review of Systems Vital Signs Vitals Vital Signs Date Time Temp Pulse Resp B/P Pulse Ox O2 Delivery O2 Flow Rate FiO2 05/20/17 12:12 80 05/20/17 11:35 98.3 20 123/60 98 05/19/17 22:00 Room Air 05/18/17 14:48 2 Intake and Output 05/19/17 05/19/17 05/20/17 14:59 22:59 06:59 Intake Total 517 ml 572 ml 120 ml Balance 517 ml 572 ml 120 ml Exam Review of Systems: CONSTITUTIONAL: No fevers, chills. PULMONARY: No sob CARDIOVASCULAR: No chest pain/palpitations GASTROINTESTINAL: No nausea/vomiting. GENITOURINARY: No hematuria/dysuria. MUSCULOSKELETAL: No myagias/arthalgias. PSYCHIATRIC: The patient denies depression. NEUROLOGIC: No weakness Constitutional: alert, oriented Psych: no complaints ENMT: mucosa pink and moist Neck: jvd, supple Respiratory: diminished breath sounds (at bases/B) Cardiovascular: regular rate and rhythm Gastrointestinal: non-tender, soft Musculoskeletal: muscle tone (normal) Extremities: edema (none) 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: other (No focal deficits) Results Result Diagram: 05/20/17 0652 05/20/17 0653 Results 24 hrs Laboratory Tests Test 05/19/17 14:30 05/19/17 15:49 05/19/17 17:31 05/19/17 20:08 Bedside Glucose 152 160 250 H 214 Test 05/20/17 02:23 05/20/17 06:52 05/20/17 06:53 05/20/17 08:18 Bedside Glucose 241 H 303 H White Blood Count 7.0 Red Blood Count 3.65 L Hemoglobin 10.9 L Hematocrit 33.4 L Mean Corpuscular Volume 91.5 Mean Corpuscular Hemoglobin 29.9 Mean Corpuscular Hemoglobin Concent 32.6 Red Cell Distribution Width 13.1 Platelet Count 225 # Mean Platelet Volume 9.5 Neutrophils % 67.7 Lymphocytes % 18.6 Monocytes % 7.7 Eosinophils % 4.7 Basophils % 0.9 Nucleated Red Blood Cells % 0.0 Neutrophils # 4.7 Lymphocytes # 1.3 Monocytes # 0.5 Eosinophils # 0.3 Basophils # 0.1 Nucleated Red Blood Cells # 0.0 Sodium Level 138 Potassium Level 4.9 Chloride Level 104 Carbon Dioxide Level 29 Anion Gap 10 Blood Urea Nitrogen 16 Creatinine 0.68 Glucose Level 319 #H Calcium Level 8.7 Phosphorus Level 3.6 Magnesium Level 1.8 Test 05/20/17 11:55 Bedside Glucose 259 H Medications Medications Current Medications Miscellaneous Information 1 ea NOTE XX ; Start 05/18/17 at 16:00 Glucose (Glutose) 15 gm Q15M PRN PO DECREASED GLUCOSE; Start 05/18/17 at 16:00 Glucose (Glutose) 22.5 gm Q15M PRN PO DECREASED GLUCOSE; Start 05/18/17 at 16: 00 Dextrose (D50w Syringe) 25 ml Q15M PRN IV DECREASED GLUCOSE; Start 05/18/17 at 16:00 Dextrose (D50w Syringe) 50 ml Q15M PRN IV DECREASED GLUCOSE; Start 05/18/17 at 16:00 Glucagon (Glucagen) 1 mg Q15M PRN IM DECREASED GLUCOSE; Start 05/18/17 at 16:00 Glucose (Glutose) 15 gm Q15M PRN BUCCAL DECREASED GLUCOSE; Start 05/18/17 at 16 :00 Aspirin (Halfprin) 81 mg DAILY PO Last administered on 05/20/17 08:28; Admin Dose 81 MG; Start 05/19/17 at 09:00 Ticagrelor (Brilinta) 90 mg BID PO Last administered on 05/20/17 08:28; Admin Dose 90 MG; Start 05/18/17 at 21:00 Acetaminophen (Tylenol Tab) 650 mg Q4H PRN PO NON-CARDIAC PAIN LEVEL 1-3; Start 05/18/17 at 17:00 Oxycodone/ Acetaminophen (Percocet (5/ 325)) 1 tab Q4H PRN PO REPORTED NON- CARDIAC PAIN 4-7; Start 05/18/17 at 17:00 Morphine Sulfate (morphine) 1 mg Q1H PRN IV PAIN NOT RELIEVED BY OTHERS Last administered on 05/20/17 12:09; Admin Dose 1 MG; Start 05/18/17 at 17:00 Carvedilol (Coreg) 3.125 mg BID PO Last administered on 05/20/17 08:29; Admin Dose 3.125 MG; Start 05/18/17 at 21:00 Atorvastatin Calcium (Lipitor) 80 mg DAILY@21 PO Last administered on 20:04; Admin Dose 80 MG; Start 05/18/17 at 21:00 Lisinopril (Zestril) 2.5 mg DAILY PO Last administered on 05/20/17 08:29; Admin Dose 2.5 MG; Start 05/19/17 at 09:00 Ondansetron HCl (Zofran Inj) 4 mg Q6H PRN IV NAUSEA AND/OR VOMITING Last administered on 05/18/17 20:54; Admin Dose 4 MG; Start 05/18/17 at 21:00 Diagnostic Test (Pha) (Accu-Chek) 1 ea 02 XX Last administered on 05/20/17 02: 32; Admin Dose 1 EA; Start 05/20/17 at 02:00 Insulin Glargine (Lantus) 20 unit DAILY@08 SC ; Start 05/21/17 at 08:00 Albuterol (Ventolin Hfa) 2 puff Q6H PRN INH WHEEZING AND SOB; Start 05/20/17 at 14:00 Furosemide (Lasix) 20 mg DAILY PO ; Start 05/20/17 at 14:00 Gabapentin (Neurontin) 300 mg TID PO ; Start 05/20/17 at 21:00 Levothyroxine Sodium (Synthroid) 112 mcg DAILY@06 PO ; Start 05/20/17 at 14:00 Salmeterol Xinafoate/ Fluticasone (Advair 250/50 Diskus) 1 inh BID INH ; Start 05/20/17 at 21:00 Tiotropium [place] (Spiriva) 1 inh DAILY INH ; Start 05/20/17 at 14:00 Ibuprofen (Motrin) 400 mg Q6H PRN PO PAIN; Start 05/20/17 at 14:00 RHONDA PENA May 20, 2017 14:11
[2017-05-20] MEDS ORDERED: IBUPROFEN 400 MG TAB PO ONE (14:30)
[2017-05-20] MEDS: LEVOTHYROXINE 112 MCG TAB PO SCH (15:05)
[2017-05-20] MEDS: TIOTROPIUM 18 MCG CAPSULE INHA DEV INH SCH (15:05)
[2017-05-20] MEDS: FUROSEMIDE 20 MG TAB PO SCH (15:07)
--- NOTE | 2017-05-20 16:51 | PN ---
Date/Time of Note Date/Time of Note DATE: 05/20/17 TIME: 16:45 Assessment/Plan VTE Prophylaxis VTE Prophylaxis Intervention: LMWH Lines/Catheters IV Catheter Type (from Nrs): Peripheral IV Urinary Cath still in place: No Assessment/Plan Chief Complaint/Hosp Course 1. STEMI status post PCI to RCA Continue cardiac meds Lipid panel within normal limits 2. Diabetes-uncontrolled Increase insulin dose nurse informatics educator Endocrinology consultation A1c at 8.1 3. Pain in bilateral hands Possibly secondary to arthritis Patient is outpatient workup with a safety investigator Ibuprofen as needed 4. Hypothyroidism Resume home Synthroid 5. COPD Resume home meds Prophylaxis: Lovenox Problems: Subjective 24 Hr Interval Summary Musculoskeletal: bone/joint pain Exam/Review of Systems Vital Signs Vitals Vital Signs Date Time Temp Pulse Resp B/P Pulse Ox O2 Delivery O2 Flow Rate FiO2 05/20/17 16:01 81 05/20/17 16:00 98.2 20 106/53 99 05/19/17 22:00 Room Air 05/18/17 14:48 2 Intake and Output 05/19/17 05/19/17 05/20/17 14:59 22:59 06:59 Intake Total 517 ml 572 ml 120 ml Balance 517 ml 572 ml 120 ml Exam Constitutional: alert, oriented Respiratory: clear to auscultation Cardiovascular: regular rate and rhythm Gastrointestinal: soft, No distended Musculoskeletal: nl extremities to inspection Results Result Diagram: 05/20/17 0652 05/20/17 0653 Results 24 hrs Laboratory Tests Test 05/19/17 17:31 05/19/17 20:08 05/20/17 02:23 05/20/17 06:52 Bedside Glucose 250 H 214 241 H White Blood Count 7.0 Red Blood Count 3.65 L Hemoglobin 10.9 L Hematocrit 33.4 L Mean Corpuscular Volume 91.5 Mean Corpuscular Hemoglobin 29.9 Mean Corpuscular Hemoglobin Concent 32.6 Red Cell Distribution Width 13.1 Platelet Count 225 # Mean Platelet Volume 9.5 Neutrophils % 67.7 Lymphocytes % 18.6 Monocytes % 7.7 Eosinophils % 4.7 Basophils % 0.9 Nucleated Red Blood Cells % 0.0 Neutrophils # 4.7 Lymphocytes # 1.3 Monocytes # 0.5 Eosinophils # 0.3 Basophils # 0.1 Nucleated Red Blood Cells # 0.0 Test 05/20/17 06:53 12/6/17 08:18 05/20/17 11:55 Sodium Level 138 Potassium Level 4.9 Chloride Level 104 Carbon Dioxide Level 29 Anion Gap 10 Blood Urea Nitrogen 16 Creatinine 0.68 Glucose Level 319 #H Calcium Level 8.7 Phosphorus Level 3.6 Magnesium Level 1.8 Bedside Glucose 303 H 259 H Medications Medications Current Medications Miscellaneous Information 1 ea NOTE XX ; Start 05/18/17 at 16:00 Glucose (Glutose) 15 gm Q15M PRN PO DECREASED GLUCOSE; Start 05/18/17 at 16:00 Glucose (Glutose) 22.5 gm Q15M PRN PO DECREASED GLUCOSE; Start 05/18/17 at 16: 00 Dextrose (D50w Syringe) 25 ml Q15M PRN IV DECREASED GLUCOSE; Start 05/18/17 at 16:00 Dextrose (D50w Syringe) 50 ml Q15M PRN IV DECREASED GLUCOSE; Start 05/18/17 at 16:00 Glucagon (Glucagen) 1 mg Q15M PRN IM DECREASED GLUCOSE; Start 05/18/17 at 16:00 Glucose (Glutose) 15 gm Q15M PRN BUCCAL DECREASED GLUCOSE; Start 05/18/17 at 16 :00 Aspirin (Halfprin) 81 mg DAILY PO Last administered on 05/20/17 08:28; Admin Dose 81 MG; Start 05/19/17 at 09:00 Ticagrelor (Brilinta) 90 mg BID PO Last administered on 05/20/17 08:28; Admin Dose 90 MG; Start 05/18/17 at 21:00 Acetaminophen (Tylenol Tab) 650 mg Q4H PRN PO NON-CARDIAC PAIN LEVEL 1-3; Start 05/18/17 at 17:00 Oxycodone/ Acetaminophen (Percocet (5/ 325)) 1 tab Q4H PRN PO REPORTED NON- CARDIAC PAIN 4-7; Start 05/18/17 at 17:00 Morphine Sulfate (morphine) 1 mg Q1H PRN IV PAIN NOT RELIEVED BY OTHERS Last administered on 05/20/17 12:09; Admin Dose 1 MG; Start 05/18/17 at 17:00 Carvedilol (Coreg) 3.125 mg BID PO Last administered on 05/20/17 08:29; Admin Dose 3.125 MG; Start 05/18/17 at 21:00 Atorvastatin Calcium (Lipitor) 80 mg DAILY@21 PO Last administered on 20:04; Admin Dose 80 MG; Start 05/18/17 at 21:00 Lisinopril (Zestril) 2.5 mg DAILY PO Last administered on 05/20/17 08:29; Admin Dose 2.5 MG; Start 05/19/17 at 09:00 Ondansetron HCl (Zofran Inj) 4 mg Q6H PRN IV NAUSEA AND/OR VOMITING Last administered on 05/18/17 20:54; Admin Dose 4 MG; Start 05/18/17 at 21:00 Diagnostic Test (Pha) (Accu-Chek) 1 ea 02 XX Last administered on 05/20/17 02: 32; Admin Dose 1 EA; Start 05/20/17 at 02:00 Insulin Glargine (Lantus) 20 unit DAILY@08 SC ; Start 05/21/17 at 08:00 Albuterol (Ventolin Hfa) 2 puff Q6H PRN INH WHEEZING AND SOB; Start 05/20/17 at 14:00 Furosemide (Lasix) 20 mg DAILY PO Last administered on 05/20/17 15:07; Admin Dose 20 MG; Start 05/20/17 at 14:00 Gabapentin (Neurontin) 300 mg TID PO ; Start 05/20/17 at 21:00 Levothyroxine Sodium (Synthroid) 112 mcg DAILY@06 PO Last administered on 15:05; Admin Dose 112 MCG; Start 05/20/17 at 14:00 Salmeterol Xinafoate/ Fluticasone (Advair 250/50 Diskus) 1 inh BID INH ; Start 05/20/17 at 21:00 Tiotropium [place] (Spiriva) 1 inh DAILY INH Last administered on 05/20/17 15: 05; Admin Dose 1 INH; Start 05/20/17 at 14:00 Ibuprofen (Motrin) 400 mg Q6H PRN PO PAIN; Start 05/20/17 at 14:00 AILEEN SHAVER May 20, 2017 16:51
[2017-05-20] MEDS: ENOXAPARIN 40 MG/0.4 ML SYG SC SCH (17:31)
--- NOTE | 2017-05-20 17:51 | CONS ---
Date/Time of Note Date/Time of Note DATE: 05/20/17 TIME: 17:43 Assessment/Plan Assessment/Plan Problems: (1) Type 1 diabetes mellitus with diabetic polyneuropathy Status: Chronic Comment: Restart previous insulin doses: Lantus 15 units sq qhs, Novolog 9 units qam, 3 units q lunch, 7 units q dinner. Reevaluate tomorrow. Consultation Date/Type/Reason Admit Date/Time May 18, 2017 at 17:30 Date of Consultation: May 20, 2017 Type of Consultation: Endocrinology Reason for Consultation Type 1 Diabetes Mellitus Out of Control ([id number]) Hx of Present Illness 56 y/o C F w/ h/o poorly managed T1DM, heavy smoking resulting in COPD, PVD, systolic CHF, CAD w/ NSTEMI, s/p CABG, also w/ hyperlipidemia and hypothyroidism s/p recent prolonged admit for both her NSTEMI, CABG, PVD, and a possible laryngeal mass. In [facility] until 2 days ago when she had high BG. Was above the upper limit of detection on her meter. Dagmar unsteady and fell. After falling developed chest pain again. Less intense than last time but still decided to come to [facility] because better to be cautious. Pt. was found to have STEMI. Was taken to [facility] emergently for STEMI and was found to have RCA in-stent restenosis. This was opened and restented and pt. admitted. Today hyperglycemic and endo consulted. Constitutional: improved, no complaints Eyes: no complaints ENT: no complaints Respiratory: no complaints Cardiovascular: no complaints Gastrointestinal: no complaints Genitourinary: no complaints Musculoskeletal: no complaints Neurologic: no complaints Past Medical History Medical History: angina, congestive heart failure (EF increased from 25 to 45% since CABG), coronary artery disease (NSTEMI and now STEMI), diabetes (Type 1), high cholesterol, hypothyroid, other (COPD) Past Surgical History Past Surgical Hx: angioplasty, coronary bypass surgery, other (, T&A) Family History Significant Family History: cancer (breast in sister, prostate in father) Social History donna WHITLOCK, in [place] since age 2, 1 y. 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 [employer], , 2 children Alcohol Use: none Smoking Status: Former smoker (1.5 ppd x 30 y, quit 2 months ago after last admit) Drug Use: none Exam/Review of Systems Vital Signs Vitals VS - Last 72 Hours, by Label Date Time Temp Pulse Resp B/P Pulse Ox O2 Delivery O2 Flow Rate FiO2 05/20/17 16:01 81 05/20/17 16:00 98.2 75 20 106/53 99 05/20/17 12:12 80 05/20/17 11:35 98.3 83 20 123/60 98 05/20/17 08:04 76 05/20/17 07:37 98.3 82 20 119/58 97 05/20/17 04:21 98.8 87 16 105/50 96 05/20/17 04:00 85 05/20/17 00:47 98.2 88 16 123/59 97 05/20/17 00:00 84 05/19/17 22:39 88 05/19/17 22:00 85 25 114/48 96 Room Air 05/19/17 21:00 90 25 116/43 96 Room Air 05/19/17 20:00 99.0 91 25 122/50 97 Room Air 05/19/17 20:00 94 05/19/17 19:00 92 29 105/38 97 Room Air 05/19/17 18:00 99 18 115/41 97 Room Air 05/19/17 17:00 25 113/46 98 Room Air 05/19/17 16:00 98.5 88 27 110/47 97 Room Air 05/19/17 16:00 85 05/19/17 15:00 83 25 107/43 97 Room Air 05/19/17 14:00 85 24 102/46 97 Room Air 05/19/17 13:00 90 17 113/42 98 Room Air 05/19/17 12:00 90 05/19/17 12:00 98.7 90 27 110/46 97 Room Air 05/19/17 11:00 88 20 111/45 96 Room Air 05/19/17 10:00 96 22 113/56 98 Room Air 05/19/17 09:00 94 20 123/44 97 Room Air 05/19/17 08:00 98.3 93 19 117/46 96 Room Air 05/19/17 08:00 91 05/19/17 07:00 91 17 103/48 96 Room Air 05/19/17 06:00 89 15 113/46 96 Room Air 05/19/17 05:00 87 18 110/49 97 Room Air 05/19/17 04:00 98.6 82 18 102/51 96 Room Air 05/19/17 04:00 82 05/19/17 03:00 81 16 102/39 96 Room Air 05/19/17 02:00 81 18 99/40 96 Room Air 05/19/17 01:00 83 18 103/41 96 Room Air 05/19/17 00:00 86 05/19/17 00:00 97.9 84 19 96/43 96 Room Air 05/18/17 23:00 88 20 121/59 97 Room Air 05/18/17 22:00 98 31 129/87 98 Room Air 05/18/17 21:00 86 9 109/51 98 Room Air 05/18/17 20:00 93 05/18/17 20:00 98.7 91 21 103/45 98 Room Air 05/18/17 19:15 97 15 123/53 99 Room Air 05/18/17 19:00 93 22 128/53 99 Room Air 05/18/17 18:45 93 19 130/55 100 Room Air 05/18/17 18:30 92 20 138/58 98 Room Air 05/18/17 18:21 98.3 96 123/53 99 Room Air 05/18/17 14:48 Nasal Cannula 2 05/18/17 13:46 98.0 91 18 115/43 96 Vital Signs Date Time Temp Pulse Resp B/P Pulse Ox O2 Delivery O2 Flow Rate FiO2 05/20/17 16:01 81 05/20/17 16:00 98.2 20 106/53 99 05/19/17 22:00 Room Air 05/18/17 14:48 2 Intake and Output 05/19/17 05/19/17 05/20/17 15:00 23:00 07:00 Intake Total 592 ml 497 ml 120 ml Balance 592 ml 497 ml 120 ml Exam Constitutional: alert, oriented, well developed Psych: nl mood/affect, no complaints Eyes: EOMI, PERRL, nl conjunctiva, nl lids, nl sclera ENMT: mucosa pink and moist, nl external ears & nose Neck: non-tender, supple, No bruits, No masses, No thyromegaly Respiratory: clear to auscultation, normal air movement Cardiovascular: nl pulses, regular rate and rhythm, No edema, No murmurs/extra sounds, No rub Gastrointestinal: bowel sounds, nl liver, spleen, non-tender, soft, No mass, No rebound or guarding Musculoskeletal: nl extremities to inspection Extremities: normal pulses, No clubbing, No cyanosis, No edema 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: 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 II-XII 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, nl mental status, nl speech, nl strength Additional Comments Bedside Glucose - 72 Hours Test 05/18/17 16:41 05/18/17 17:26 05/18/17 17:49 05/18/17 19:00 Bedside Glucose 446mg/dL (70-220) *H 364mg/dL (70-220) H 296mg/dL (70-220) H 195mg/dL (70-220) Test 05/18/17 20:45 05/18/17 21:44 05/18/17 22:34 05/18/17 22:36 Bedside Glucose 81mg/dL (70-220) 74mg/dL (70-220) 139mg/dL (70-220) 118mg/dL (70-220) Test 05/18/17 23:31 05/19/17 00:41 05/19/17 01:41 05/19/17 02:44 Bedside Glucose 103mg/dL (70-220) 124mg/dL (70-220) 114mg/dL (70-220) 82mg/dL (70-220) Test 05/19/17 03:38 05/19/17 04:34 05/19/17 05:39 05/19/17 06:34 Bedside Glucose 85mg/dL (70-220) 93mg/dL (70-220) 113mg/dL (70-220) 130mg/dL (70-220) Test 05/19/17 08:00 05/19/17 08:42 05/19/17 09:34 05/19/17 10:49 Bedside Glucose 145mg/dL (70-220) 121mg/dL (70-220) 101mg/dL (70-220) 111mg/dL (70-220) Test 05/19/17 11:33 05/19/17 12:32 05/19/17 13:40 05/19/17 14:30 Bedside Glucose 99mg/dL (70-220) 117mg/dL (70-220) 158mg/dL (70-220) 152mg/dL (70-220) Test 05/19/17 15:49 05/19/17 17:31 05/19/17 20:08 05/20/17 02:23 Bedside Glucose 160mg/dL (70-220) 250mg/dL (70-220) H 214mg/dL (70-220) 241mg/dL (70-220) H Test 05/20/17 08:18 05/20/17 11:55 05/20/17 16:47 Bedside Glucose 303mg/dL (70-220) H 259mg/dL (70-220) H 132mg/dL (70-220) Results Result Diagram: 05/20/17 0652 05/20/17 0653 Results 24 hrs Laboratory Tests Test 05/19/17 20:08 05/20/17 02:23 05/20/17 06:52 05/20/17 06:53 Bedside Glucose 214 241 H White Blood Count 7.0 Red Blood Count 3.65 L Hemoglobin 10.9 L Hematocrit 33.4 L Mean Corpuscular Volume 91.5 Mean Corpuscular Hemoglobin 29.9 Mean Corpuscular Hemoglobin Concent 32.6 Red Cell Distribution Width 13.1 Platelet Count 225 # Mean Platelet Volume 9.5 Neutrophils % 67.7 Lymphocytes % 18.6 Monocytes % 7.7 Eosinophils % 4.7 Basophils % 0.9 Nucleated Red Blood Cells % 0.0 Neutrophils # 4.7 Lymphocytes # 1.3 Monocytes # 0.5 Eosinophils # 0.3 Basophils # 0.1 Nucleated Red Blood Cells # 0.0 Sodium Level 138 Potassium Level 4.9 Chloride Level 104 Carbon Dioxide Level 29 Anion Gap 10 Blood Urea Nitrogen 16 Creatinine 0.68 Glucose Level 319 #H Calcium Level 8.7 Phosphorus Level 3.6 Magnesium Level 1.8 Test 05/20/17 08:18 05/20/17 11:55 05/20/17 16:47 Bedside Glucose 303 H 259 H 132 Medications Medications Current Medications Miscellaneous Information 1 ea NOTE XX ; Start 05/18/17 at 16:00 Glucose (Glutose) 15 gm Q15M PRN PO DECREASED GLUCOSE; Start 05/18/17 at 16:00 Glucose (Glutose) 22.5 gm Q15M PRN PO DECREASED GLUCOSE; Start 05/18/17 at 16: 00 Dextrose (D50w Syringe) 25 ml Q15M PRN IV DECREASED GLUCOSE; Start 05/18/17 at 16:00 Dextrose (D50w Syringe) 50 ml Q15M PRN IV DECREASED GLUCOSE; Start 05/18/17 at 16:00 Glucagon (Glucagen) 1 mg Q15M PRN IM DECREASED GLUCOSE; Start 05/18/17 at 16:00 Glucose (Glutose) 15 gm Q15M PRN BUCCAL DECREASED GLUCOSE; Start 05/18/17 at 16 :00 Aspirin (Halfprin) 81 mg DAILY PO Last administered on 05/20/17 08:28; Admin Dose 81 MG; Start 05/19/17 at 09:00 Ticagrelor (Brilinta) 90 mg BID PO Last administered on 05/20/17 08:28; Admin Dose 90 MG; Start 05/18/17 at 21:00 Acetaminophen (Tylenol Tab) 650 mg Q4H PRN PO NON-CARDIAC PAIN LEVEL 1-3; Start 05/18/17 at 17:00 Oxycodone/ Acetaminophen (Percocet (5/ 325)) 1 tab Q4H PRN PO REPORTED NON- CARDIAC PAIN 4-7; Start 05/18/17 at 17:00 Morphine Sulfate (morphine) 1 mg Q1H PRN IV PAIN NOT RELIEVED BY OTHERS Last administered on 05/20/17 12:09; Admin Dose 1 MG; Start 05/18/17 at 17:00 Carvedilol (Coreg) 3.125 mg BID PO Last administered on 05/20/17 08:29; Admin Dose 3.125 MG; Start 05/18/17 at 21:00 Atorvastatin Calcium (Lipitor) 80 mg DAILY@21 PO Last administered on 20:04; Admin Dose 80 MG; Start 05/18/17 at 21:00 Lisinopril (Zestril) 2.5 mg DAILY PO Last administered on 05/20/17 08:29; Admin Dose 2.5 MG; Start 05/19/17 at 09:00 Ondansetron HCl (Zofran Inj) 4 mg Q6H PRN IV NAUSEA AND/OR VOMITING Last administered on 05/18/17 20:54; Admin Dose 4 MG; Start 05/18/17 at 21:00 Diagnostic Test (Pha) (Accu-Chek) 1 ea 02 XX Last administered on 05/20/17 02: 32; Admin Dose 1 EA; Start 05/20/17 at 02:00 Albuterol (Ventolin Hfa) 2 puff Q6H PRN INH WHEEZING AND SOB; Start 05/20/17 at 14:00 Furosemide (Lasix) 20 mg DAILY PO Last administered on 05/20/17 15:07; Admin Dose 20 MG; Start 05/20/17 at 14:00 Gabapentin (Neurontin) 300 mg TID PO ; Start 05/20/17 at 21:00 Levothyroxine Sodium (Synthroid) 112 mcg DAILY@06 PO Last administered on 15:05; Admin Dose 112 MCG; Start 05/20/17 at 14:00 Salmeterol Xinafoate/ Fluticasone (Advair 250/50 Diskus) 1 inh BID INH ; Start 05/20/17 at 21:00 Tiotropium [place] (Spiriva) 1 inh DAILY INH Last administered on 05/20/17 15: 05; Admin Dose 1 INH; Start 05/20/17 at 14:00 Ibuprofen (Motrin) 400 mg Q6H PRN PO PAIN; Start 05/20/17 at 14:00 Enoxaparin Sodium (Lovenox) 40 mg DAILY SC Last administered on 05/20/17 17:31 ; Admin Dose 40 MG; Start 05/20/17 at 17:00 Insulin Glargine (Lantus) 15 unit DAILY@20 SC ; Start 05/20/17 at 20:00 DARYL MYERS MD May 20, 2017 17:51
[2017-05-20] MEDS ORDERED: INSULIN ASPART [NOVOLOG] 3 ML PEN SC SCH (18:05)
[2017-05-20] MEDS ORDERED: INSULIN GLARGINE [LANtus] 3 ML PEN SC SCH (20:00)
[2017-05-20] MEDS: SALMETEROL/FLUTICASONE 250/50 INHA INH SCH (21:17)
[2017-05-20] MEDS: GABAPENTIN 300 MG CAP PO SCH (21:19)
[2017-05-20] MEDS: ATORVASTATIN 80 MG TAB PO SCH (21:19)
[2017-05-21] VITALS (11 sets, daily range): BP systolic 95–109; BP diastolic 43–57; PULSE 61–85; RESP 16–20
[2017-05-21] MEDS: ACCU-CHEK XX SCH (02:00)
[2017-05-21] MEDS: LEVOTHYROXINE 112 MCG TAB PO SCH (05:27)
[2017-05-21 06:25] LABS: BASOPHIL # 0.1 10^3/ul (0.0-0.1); BASOPHILS % 0.8 % (0.0-2.0); EOSINOPHILS # 0.6 10^3/ul (0.0-0.5); EOSINOPHILS % 7.6 % (0.0-7.0); HEMATOCRIT 36.1 % (37.0-47.0); HEMOGLOBIN 11.9 g/dl (12.0-16.0); LYMPHOCYTES # 1.1 10^3/ul (0.8-2.9); LYMPHOCYTES % 14.7 % (15.0-51.0); MEAN CORPUSCULAR HEMOGLOBIN 29.9 pg (29.0-33.0); MEAN CORPUSCULAR VOLUME 90.7 fl (82.0-101.0); MEAN PLATELET VOLUME 9.4 fl (7.4-10.4); MONOCYTE # 0.7 10^3/ul (0.3-0.9); MONOCYTES % 9.4 % (0.0-11.0); NEUTROPHIL # 4.9 10^3/ul (1.6-7.5); NEUTROPHILS % 67.2 % (39.0-77.0); PLATELET COUNT 261 10^3/UL (140-415); RED BLOOD COUNT 3.98 10^6/ul (4.20-5.40); RED CELL DISTRIBUTION WIDTH 13.1 % (11.5-14.5); WHITE BLOOD COUNT 7.2 10^3/ul (4.8-10.8)
[2017-05-21 06:46] LABS: CALCIUM 8.9 mg/dl (8.4-10.2); CREATININE 0.55 mg/dl (0.44-1.00); POTASSIUM 3.7 mmol/L (3.5-5.1)
[2017-05-21] MEDS ORDERED: INSULIN GLARGINE [LANtus] 3 ML PEN SC SCH (08:00)
[2017-05-21] MEDS ORDERED: INSULIN ASPART [NOVOLOG] 3 ML PEN SC SCH ×2 (08:00→12:00)
[2017-05-21] MEDS: GABAPENTIN 300 MG CAP PO SCH ×2 (08:45→12:30)
[2017-05-21] MEDS: LISINOPRIL 5 MG TAB PO SCH (08:46)
[2017-05-21] MEDS: FUROSEMIDE 20 MG TAB PO SCH (08:46)
[2017-05-21] MEDS: ASPIRIN (EC) 81 MG TAB PO SCH (08:46)
[2017-05-21] MEDS: TICAGRELOR 90 MG TABLET PO SCH (08:47)
[2017-05-21] MEDS: INSULIN ASPART [NOVOLOG] 3 ML PEN SC SCH ×4 (08:48→18:07)
[2017-05-21] MEDS: ENOXAPARIN 40 MG/0.4 ML SYG SC SCH (08:49)
[2017-05-21] MEDS: SALMETEROL/FLUTICASONE 250/50 INHA INH SCH (08:50)
[2017-05-21] MEDS: TIOTROPIUM 18 MCG CAPSULE INHA DEV INH SCH (08:50)
--- NOTE | 2017-05-21 13:19 | CONS ---
Date/Time of Note Date/Time of Note DATE: 05/21/17 TIME: 13:16 Assessment/Plan Assessment/Plan Problems: (1) Type 1 diabetes mellitus with diabetic polyneuropathy Status: Chronic Comment: Hypoglycemia early this am due to doubling the lantus to change the administration time from am to hs. Therefore will not decrease the dose. Subsequently overcorrected to cause hyperglycemia. Now hypoglycemic again. Will decrease am dose of Novolog from 9 to 8 units before breakfast. Cont. 3 units for lunch and 7 units for dinner. Will reeval tomorrow. Consultation Date/Type/Reason Admit Date/Time May 18, 2017 at 17:30 Initial Consult Date 05/20/17 Type of Consultation: Endocrinology Reason for Consultation T1DM OOC Referring Provider: DARYL SR MD 24 HR Interval Summary Constitutional: no complaints Detailed Summary Respiratory: no complaints Cardiovascular: no complaints Gastrointestinal: no complaints Genitourinary: no complaints Musculoskeletal: no complaints Neurologic: no complaints Exam/Review of Systems Vital Signs Vitals VS - Last 72 Hours, by Label Date Time Temp Pulse Resp B/P Pulse Ox O2 Delivery O2 Flow Rate FiO2 05/21/17 12:14 85 05/21/17 11:47 98.2 78 20 98/43 96 05/21/17 08:00 82 05/21/17 07:40 97.8 80 20 109/51 95 05/21/17 04:55 97.1 70 20 105/49 96 05/21/17 04:00 71 05/21/17 00:22 97.4 77 16 101/57 98 05/21/17 00:00 77 05/20/17 20:22 97.4 83 20 109/55 98 05/20/17 20:00 81 05/20/17 16:01 81 05/20/17 16:00 98.2 75 20 106/53 99 05/20/17 12:12 80 05/20/17 11:35 98.3 83 20 123/60 98 05/20/17 08:04 76 05/20/17 07:37 98.3 82 20 119/58 97 05/20/17 04:21 98.8 87 16 105/50 96 05/20/17 04:00 85 05/20/17 00:47 98.2 88 16 123/59 97 05/20/17 00:00 84 05/19/17 22:39 88 05/19/17 22:00 85 25 114/48 96 Room Air 05/19/17 21:00 90 25 116/43 96 Room Air 05/19/17 20:00 99.0 91 25 122/50 97 Room Air 05/19/17 20:00 94 05/19/17 19:00 92 29 105/38 97 Room Air 05/19/17 18:00 99 18 115/41 97 Room Air 05/19/17 17:00 25 113/46 98 Room Air 05/19/17 16:00 98.5 88 27 110/47 97 Room Air 05/19/17 16:00 85 05/19/17 15:00 83 25 107/43 97 Room Air 05/19/17 14:00 85 24 102/46 97 Room Air 05/19/17 13:00 90 17 113/42 98 Room Air 05/19/17 12:00 90 05/19/17 12:00 98.7 90 27 110/46 97 Room Air 05/19/17 11:00 88 20 111/45 96 Room Air 05/19/17 10:00 96 22 113/56 98 Room Air 05/19/17 09:00 94 20 123/44 97 Room Air 05/19/17 08:00 98.3 93 19 117/46 96 Room Air 05/19/17 08:00 91 05/19/17 07:00 91 17 103/48 96 Room Air 05/19/17 06:00 89 15 113/46 96 Room Air 05/19/17 05:00 87 18 110/49 97 Room Air 05/19/17 04:00 98.6 82 18 102/51 96 Room Air 05/19/17 04:00 82 05/19/17 03:00 81 16 102/39 96 Room Air 05/19/17 02:00 81 18 99/40 96 Room Air 05/19/17 01:00 83 18 103/41 96 Room Air 05/19/17 00:00 86 05/19/17 00:00 97.9 84 19 96/43 96 Room Air 05/18/17 23:00 88 20 121/59 97 Room Air 05/18/17 22:00 98 31 129/87 98 Room Air 05/18/17 21:00 86 9 109/51 98 Room Air 05/18/17 20:00 93 05/18/17 20:00 98.7 91 21 103/45 98 Room Air 05/18/17 19:15 97 15 123/53 99 Room Air 05/18/17 19:00 93 22 128/53 99 Room Air 05/18/17 18:45 93 19 130/55 100 Room Air 05/18/17 18:30 92 20 138/58 98 Room Air 05/18/17 18:21 98.3 96 123/53 99 Room Air 05/18/17 14:48 Nasal Cannula 2 05/18/17 13:46 98.0 91 18 115/43 96 Vital Signs Date Time Temp Pulse Resp B/P Pulse Ox O2 Delivery O2 Flow Rate FiO2 05/21/17 12:14 85 05/21/17 11:47 98.2 20 98/43 96 05/19/17 22:00 Room Air 05/18/17 14:48 2 Intake and Output 05/20/17 05/20/17 05/21/17 15:00 23:00 07:00 Intake Total 1200 ml 800 ml Balance 1200 ml 800 ml Exam Constitutional: alert, oriented, well developed Respiratory: clear to auscultation, normal air movement Cardiovascular: nl pulses, regular rate and rhythm, No edema, No murmurs/extra sounds, No rub Gastrointestinal: bowel sounds, nl liver, spleen, non-tender, soft, No mass, No rebound or guarding Musculoskeletal: nl extremities to inspection Extremities: normal pulses, No clubbing, No cyanosis, No edema 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: 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 OPERATOR II-XII 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, nl mental status, nl speech, nl strength Additional Comments Bedside Glucose - 72 Hours Test 05/18/17 16:41 05/18/17 17:26 05/18/17 17:49 05/18/17 19:00 Bedside Glucose 446mg/dL (70-220) *H 364mg/dL (70-220) H 296mg/dL (70-220) H 195mg/dL (70-220) Test 05/18/17 20:45 05/18/17 21:44 05/18/17 22:34 05/18/17 22:36 Bedside Glucose 81mg/dL (70-220) 74mg/dL (70-220) 139mg/dL (70-220) 118mg/dL (70-220) Test 05/18/17 23:31 05/19/17 00:41 05/19/17 01:41 05/19/17 02:44 Bedside Glucose 103mg/dL (70-220) 124mg/dL (70-220) 114mg/dL (70-220) 82mg/dL (70-220) Test 05/19/17 03:38 05/19/17 04:34 05/19/17 05:39 05/19/17 06:34 Bedside Glucose 85mg/dL (70-220) 93mg/dL (70-220) 113mg/dL (70-220) 130mg/dL (70-220) Test 05/19/17 08:00 05/19/17 08:42 05/19/17 09:34 05/19/17 10:49 Bedside Glucose 145mg/dL (70-220) 121mg/dL (70-220) 101mg/dL (70-220) 111mg/dL (70-220) Test 05/19/17 11:33 05/19/17 12:32 05/19/17 13:40 05/19/17 14:30 Bedside Glucose 99mg/dL (70-220) 117mg/dL (70-220) 158mg/dL (70-220) 152mg/dL (70-220) Test 05/19/17 15:49 05/19/17 17:31 05/19/17 20:08 05/20/17 02:23 Bedside Glucose 160mg/dL (70-220) 250mg/dL (70-220) H 214mg/dL (70-220) 241mg/dL (70-220) H Test 05/20/17 08:18 05/20/17 11:55 05/20/17 16:47 05/20/17 21:04 Bedside Glucose 303mg/dL (70-220) H 259mg/dL (70-220) H 132mg/dL (70-220) 114mg/dL (70-220) Test 05/21/17 04:44 05/21/17 05:06 05/21/17 05:25 05/21/17 05:42 Bedside Glucose 52mg/dL (70-220) L 57mg/dL (70-220) L 88mg/dL (70-220) 117mg/dL (70-220) Test 05/21/17 08:17 05/21/17 12:28 05/21/17 12:56 Bedside Glucose 265mg/dL (70-220) H 63mg/dL (70-220) L 59mg/dL (70-220) L Results Result Diagram: 05/21/17 0602 05/21/17 0602 Results 24 hrs Laboratory Tests Test 05/20/17 16:47 05/20/17 21:04 05/21/17 04:44 05/21/17 05:06 Bedside Glucose 132 114 52 L 57 L Test 05/21/17 05:25 05/21/17 05:42 05/21/17 06:02 05/21/17 08:17 Bedside Glucose 88 117 265 H White Blood Count 7.2 Red Blood Count 3.98 L Hemoglobin 11.9 L Hematocrit 36.1 L Mean Corpuscular Volume 90.7 Mean Corpuscular Hemoglobin 29.9 Mean Corpuscular Hemoglobin Concent 33.0 Red Cell Distribution Width 13.1 Platelet Count 261 Mean Platelet Volume 9.4 Neutrophils % 67.2 Lymphocytes % 14.7 L Monocytes % 9.4 Eosinophils % 7.6 H Basophils % 0.8 Nucleated Red Blood Cells % 0.0 Neutrophils # 4.9 Lymphocytes # 1.1 Monocytes # 0.7 Eosinophils # 0.6 H Basophils # 0.1 Nucleated Red Blood Cells # 0.0 Sodium Level 140 Potassium Level 3.7 Chloride Level 106 Carbon Dioxide Level 27 Anion Gap 11 Blood Urea Nitrogen 14 Creatinine 0.55 Glucose Level 141 # Calcium Level 8.9 Test 05/21/17 12:28 05/21/17 12:56 Bedside Glucose 63 L 59 L Medications Medications Current Medications Miscellaneous Information 1 ea NOTE XX Last administered on 05/21/17t 05:14; Admin Dose 1 EA; Start 05/18/17 at 16:00 Glucose (Glutose) 15 gm Q15M PRN PO DECREASED GLUCOSE; Start 05/18/17 at 16:00 Glucose (Glutose) 22.5 gm Q15M PRN PO DECREASED GLUCOSE; Start 05/18/17 at 16: 00 Dextrose (D50w Syringe) 25 ml Q15M PRN IV DECREASED GLUCOSE; Start 05/18/17 at 16:00 Dextrose (D50w Syringe) 50 ml Q15M PRN IV DECREASED GLUCOSE; Start 05/18/17 at 16:00 Glucagon (Glucagen) 1 mg Q15M PRN IM DECREASED GLUCOSE; Start 05/18/17 at 16:00 Glucose (Glutose) 15 gm Q15M PRN BUCCAL DECREASED GLUCOSE; Start 05/18/17 at 16 :00 Aspirin (Halfprin) 81 mg DAILY PO Last administered on 05/21/17 08:46; Admin Dose 81 MG; Start 05/19/17 at 09:00 Ticagrelor (Brilinta) 90 mg BID PO Last administered on 05/21/17 08:47; Admin Dose 90 MG; Start 05/18/17 at 21:00 Acetaminophen (Tylenol Tab) 650 mg Q4H PRN PO NON-CARDIAC PAIN LEVEL 1-3; Start 05/18/17 at 17:00 Oxycodone/ Acetaminophen (Percocet (5/ 325)) 1 tab Q4H PRN PO REPORTED NON- CARDIAC PAIN 4-7 Last administered on 05/20/17 21:20; Admin Dose 1 TAB; Start 05/18/17 at 17:00 Morphine Sulfate (morphine) 1 mg Q1H PRN IV PAIN NOT RELIEVED BY OTHERS Last administered on 05/20/17 21:20; Admin Dose 1 MG; Start 05/18/17 at 17:00 Carvedilol (Coreg) 3.125 mg BID PO Last administered on 05/21/17 08:49; Admin Dose 3.125 MG; Start 05/18/17 at 21:00 Atorvastatin Calcium (Lipitor) 80 mg DAILY@21 PO Last administered on 21:19; Admin Dose 80 MG; Start 05/18/17 at 21:00 Lisinopril (Zestril) 2.5 mg DAILY PO Last administered on 05/21/17 08:46; Admin Dose 2.5 MG; Start 05/19/17 at 09:00 Ondansetron HCl (Zofran Inj) 4 mg Q6H PRN IV NAUSEA AND/OR VOMITING Last administered on 05/18/17 20:54; Admin Dose 4 MG; Start 05/18/17 at 21:00 Diagnostic Test (Pha) (Accu-Chek) 1 ea 02 XX Last administered on 05/20/17 02: 32; Admin Dose 1 EA; Start 05/20/17 at 02:00 Albuterol (Ventolin Hfa) 2 puff Q6H PRN INH WHEEZING AND SOB; Start 05/20/17 at 14:00 Furosemide (Lasix) 20 mg DAILY PO Last administered on 05/21/17 08:46; Admin Dose 20 MG; Start 05/20/17 at 14:00 Gabapentin (Neurontin) 300 mg TID PO Last administered on 05/21/17 12:30; Admin Dose 300 MG; Start 05/20/17 at 21:00 Levothyroxine Sodium (Synthroid) 112 mcg DAILY@06 PO Last administered on 05:27; Admin Dose 112 MCG; Start 05/20/17 at 14:00 Salmeterol Xinafoate/ Fluticasone (Advair 250/50 Diskus) 1 inh BID INH Last administered on 05/21/17 08:50; Admin Dose 1 INH; Start 05/20/17 at 21:00 Tiotropium [place] (Spiriva) 1 inh DAILY INH Last administered on 05/21/17 08: 50; Admin Dose 1 INH; Start 05/20/17 at 14:00 Ibuprofen (Motrin) 400 mg Q6H PRN PO PAIN; Start 05/20/17 at 14:00 Enoxaparin Sodium (Lovenox) 40 mg DAILY SC Last administered on 05/21/17 08:49 ; Admin Dose 40 MG; Start 05/20/17 at 17:00 Insulin Glargine (Lantus) 15 unit DAILY@20 SC Last administered on 05/20/17 21 :21; Admin Dose 15 UNIT; Start 05/20/17 at 20:00 DARYL MYERS MD May 21, 2017 13:19
--- NOTE | 2017-05-21 15:46 | PDOCDIS ---
Discharge Instructions CONDITION Patient Condition: Good HOME CARE INSTRUCTIONS: Special Diet: DIABETIC ACTIVITY: Activity Restrictions: No Restrictions FOLLOW UP/APPOINTMENTS Follow-up Plan FOLLOW UP WITH YOUR PRIMARY CARE PHYSICIAN IN 1-2 WEEKS AILEEN SHAVER May 21, 2017 15:46
--- NOTE | 2017-05-21 16:58 | DS ---
Date/Time of Note Date/Time of Note DATE: 05/21/17 TIME: 16:50 Discharge Summary Admission/Discharge Info Admit Date/Time May 18, 2017 at 17:30 Discharge Date/Time May 21, 2017 Discharge Diagnosis 1. STEMI status post PCI to RCA Continue cardiac meds Lipid panel within normal limits 2. Diabetes Endocrinology consultation appreciated A1c at 8.1 Continue home regimen, follow-up with PCP 3. Pain in bilateral hands Possibly secondary to arthritis Patient told to be referred to a statement distribution clerk for outpatient workup for RA Ibuprofen as needed 4. Hypothyroidism Resume home Synthroid 5. COPD Resume home meds Patient Condition: Good Hospital Course Patient is a 56-year-old female with a history of CAD, status post PCI with stent to RCA, recent CABG, COPD, diabetes, hypertension, dyslipidemia presented with chest pain and found to have STEMI. Troponin was negative. Patient was taken to the [facility] emergently and had left heart catheterization and selective right and left coronary angiogram. selective SVG and DEE angiography , very complicated but successful PTCA and stenting of RCA. Patient's hospital course was completed by hypoglycemia, patient was seen by endocrinology insulin was adjusted patient did have labile blood sugar with episodic lows. Patient does have a history of noncompliance to medications and compliance was strongly urged. Patient did report pain in her hands, physical exam did suggest possible rheumatoid arthritis although there are no obvious deformities in the hands. Patient was told to follow-up with statement distribution clerk as an outpatient for workup for rheumatoid arthritis. Patient A1c was 8.1, patient was told follow- up with her PCP for more optimal glucose control. On the day of discharge patient's vitals, labs and physical exam are stable she had no further acute complaints questions are answered. Home Meds Active Scripts Albuterol Sulfate* (Proair HFA*) 8.5 Gm Hfa.aer.ad, 2 PUFF INH Q6H Y for WHEEZING AND SOB, #1 INHALER Prov:HIGGINS,TAD V. CLINIC NURSE 04/22/17 Salmeterol Xinaf/Fluticasone* (Advair*) 250-50 Diskus Inhaler, 1 INH INH BID, # 1 INHALER Prov:HIGGINS,TAD V. CLINIC NURSE 04/22/17 Tiotropium [place]* (Spiriva*) 18 Mcg Cap.w.dev, 1 INH INH DAILY, #1 INHALER Prov:HIGGINS,TAD V. CLINIC NURSE 04/22/17 Levothyroxine Sodium* (Levothyroxine Sodium*) 112 Mcg Tablet, 112 MCG PO DAILY@ 06 for 30 Days, #30 TAB Prov:ROBEL PETTY MD 02/05/17 Aspirin* (Aspirin* EC) 81 Mg Tabec, 81 MG PO DAILY for 30 Days, #30 Prov:YUNIELKWESI CASTANEDAETLANA 08/29/16 Ticagrelor* (Brilinta*) 90 Mg Tablet, 90 MG PO BID for 30 Days, #60 Prov:RADWILANGELINETAD 08/29/16 Gabapentin* (Gabapentin*) 300 Mg Capsule, 300 MG PO TID for 30 Days, CAP Prov:ENOC POPEA 08/29/16 Reported Medications Insulin Glargine* (Lantus*) 100 Unit/Ml Soln, 16 UNIT SC QHS, #1 VIAL 05/18/17 Metoprolol Tartrate* (Lopressor*) 25 Mg Tab, 25 MG PO BID, #60 TAB 04/17/17 Furosemide* (Lasix*) 20 Mg Tablet, 20 MG PO DAILY, TAB 04/17/17 Insulin Lispro (Humalog Kwikpen) 200 Unit/1 Ml Insuln.pen, 0 SQ AC MEALS, EA SLIDING SCALE 04/17/17 Alendronate Sodium* (Fosamax*) 70 Mg Tablet, 70 MG PO Q7D, #4 TAB 08/19/16 Discontinued Reported Medications Insulin Glargine* (Lantus*) 100 Unit/Ml Soln, 25 UNIT SC QHS, #1 VIAL 04/17/17 Discontinued Scripts [Promethazine/Codeine Syp] 5 ML SYRUP No Conflict Check, 5 ML PO Q4H Y for COUGH , #1 BOTTLE 250 ml bottle Prov:HIGGINSYESICAA Alesha CLINIC NURSE 04/22/17 Benzonatate* (Benzonatate*) 100 Mg Capsule, 100 MG PO TID, #90 CAP Prov:HIGGINSYESICAA VLeigh CLINIC NURSE 04/22/17 Atorvastatin* (Atorvastatin*) 40 Mg Tablet, 40 MG PO HS, #30 TAB Prov:TAD HIGGINS V. CLINIC NURSE 04/22/17 Follow-up Plan FOLLOW UP WITH YOUR PRIMARY CARE PHYSICIAN IN 1-2 WEEKS Primary Care Provider Mary Morataya Time spent on discharge: > 30 minutes AILEEN SHAVER May 21, 2017 16:58
--- NOTE | 2017-05-21 19:07 | CONS ---
Date/Time of Note Date/Time of Note DATE: 05/21/17 TIME: 19:05 Assessment/Plan Assessment/Plan Chief Complaint/Hosp Course IMP: 1. 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 Now improved 3.HTN 4.HL 5. Cad s/p cabg 6.COPD Recc: -Tele -serial ecg's -Contineu asa/brilinta nd stress importance of strict adherence to anti- platelet agents -Continue BB/zestril; -Continue statin -Ok for d/c plannning from cardiac standpoint. -outpatient f/u already scheduled with me Problems: Consultation Date/Type/Reason Admit Date/Time May 18, 2017 at 17:30 Initial Consult Date 05/18/17 Type of Consultation: cardiology Reason for Consultation angina Referring Provider: DARYL SR MD Exam/Review of Systems Vital Signs Vitals Vital Signs Date Time Temp Pulse Resp B/P Pulse Ox O2 Delivery O2 Flow Rate FiO2 05/21/17 16:06 81 05/21/17 15:34 98.3 20 95/43 98 05/19/17 22:00 Room Air 05/18/17 14:48 2 Intake and Output 05/20/17 05/20/17 05/21/17 14:59 22:59 06:59 Intake Total 1200 ml 800 ml Balance 1200 ml 800 ml Exam Review of Systems: CONSTITUTIONAL: No fevers, chills. PULMONARY: No sob CARDIOVASCULAR: No chest pain/palpitations GASTROINTESTINAL: No nausea/vomiting. GENITOURINARY: No hematuria/dysuria. MUSCULOSKELETAL: No myagias/arthalgias. PSYCHIATRIC: The patient denies depression. NEUROLOGIC: No weakness Constitutional: alert, oriented Psych: no complaints Head: normocephalic ENMT: mucosa pink and moist Neck: jvd (8 cm water), supple Respiratory: diminished breath sounds Cardiovascular: regular rate and rhythm Gastrointestinal: non-tender, soft Musculoskeletal: muscle tone (normal) Extremities: edema (none) 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: other (No focal deficits) Results Result Diagram: 05/21/17 0602 05/21/17 0602 Results 24 hrs Laboratory Tests Test 05/20/17 21:04 05/21/17 04:44 05/21/17 05:06 05/21/17 05:25 Bedside Glucose 114 52 L 57 L 88 Test 05/21/17 05:42 05/21/17 06:02 05/21/17 08:17 05/21/17 12:28 Bedside Glucose 117 265 H 63 L White Blood Count 7.2 Red Blood Count 3.98 L Hemoglobin 11.9 L Hematocrit 36.1 L Mean Corpuscular Volume 90.7 Mean Corpuscular Hemoglobin 29.9 Mean Corpuscular Hemoglobin Concent 33.0 Red Cell Distribution Width 13.1 Platelet Count 261 Mean Platelet Volume 9.4 Neutrophils % 67.2 Lymphocytes % 14.7 L Monocytes % 9.4 Eosinophils % 7.6 H Basophils % 0.8 Nucleated Red Blood Cells % 0.0 Neutrophils # 4.9 Lymphocytes # 1.1 Monocytes # 0.7 Eosinophils # 0.6 H Basophils # 0.1 Nucleated Red Blood Cells # 0.0 Sodium Level 140 Potassium Level 3.7 Chloride Level 106 Carbon Dioxide Level 27 Anion Gap 11 Blood Urea Nitrogen 14 Creatinine 0.55 Glucose Level 141 # Calcium Level 8.9 Test 05/21/17 12:56 05/21/17 13:19 05/21/17 17:32 Bedside Glucose 59 L 96 227 H Medications Medications Current Medications Miscellaneous Information 1 ea NOTE XX Last administered on 05/21/17 05:14; Admin Dose 1 EA; Start 05/18/17 at 16:00 Glucose (Glutose) 15 gm Q15M PRN PO DECREASED GLUCOSE; Start 05/18/17 at 16:00 Glucose (Glutose) 22.5 gm Q15M PRN PO DECREASED GLUCOSE; Start 05/18/17 at 16: 00 Dextrose (D50w Syringe) 25 ml Q15M PRN IV DECREASED GLUCOSE; Start 05/18/17 at 16:00 Dextrose (D50w Syringe) 50 ml Q15M PRN IV DECREASED GLUCOSE; Start 05/18/17 at 16:00 Glucagon (Glucagen) 1 mg Q15M PRN IM DECREASED GLUCOSE; Start 05/18/17 at 16:00 Glucose (Glutose) 15 gm Q15M PRN BUCCAL DECREASED GLUCOSE; Start 05/18/17 at 16 :00 Aspirin (Halfprin) 81 mg DAILY PO Last administered on 05/21/17 08:46; Admin Dose 81 MG; Start 05/19/17 at 09:00 Ticagrelor (Brilinta) 90 mg BID PO Last administered on 05/21/17 08:47; Admin Dose 90 MG; Start 05/18/17 at 21:00 Acetaminophen (Tylenol Tab) 650 mg Q4H PRN PO NON-CARDIAC PAIN LEVEL 1-3; Start 05/18/17 at 17:00 Oxycodone/ Acetaminophen (Percocet (5/ 325)) 1 tab Q4H PRN PO REPORTED NON- CARDIAC PAIN 4-7 Last administered on 05/20/17 21:20; Admin Dose 1 TAB; Start 05/18/17 at 17:00 Morphine Sulfate (morphine) 1 mg Q1H PRN IV PAIN NOT RELIEVED BY OTHERS Last administered on 05/20/17 21:20; Admin Dose 1 MG; Start 05/18/17 at 17:00 Carvedilol (Coreg) 3.125 mg BID PO Last administered on 05/21/17 08:49; Admin Dose 3.125 MG; Start 05/18/17 at 21:00 Atorvastatin Calcium (Lipitor) 80 mg DAILY@21 PO Last administered on 21:19; Admin Dose 80 MG; Start 05/18/17 at 21:00 Lisinopril (Zestril) 2.5 mg DAILY PO Last administered on 05/21/17 08:46; Admin Dose 2.5 MG; Start 05/19/17 at 09:00 Ondansetron HCl (Zofran Inj) 4 mg Q6H PRN IV NAUSEA AND/OR VOMITING Last administered on 05/18/17 20:54; Admin Dose 4 MG; Start 05/18/17 at 21:00 Diagnostic Test (Pha) (Accu-Chek) 1 ea 02 XX Last administered on 05/20/17 02: 32; Admin Dose 1 EA; Start 05/20/17 at 02:00 Albuterol (Ventolin Hfa) 2 puff Q6H PRN INH WHEEZING AND SOB; Start 05/20/17 at 14:00 Furosemide (Lasix) 20 mg DAILY PO Last administered on 05/21/17 08:46; Admin Dose 20 MG; Start 05/20/17 at 14:00 Gabapentin (Neurontin) 300 mg TID PO Last administered on 05/21/17 12:30; Admin Dose 300 MG; Start 05/20/17 at 21:00 Levothyroxine Sodium (Synthroid) 112 mcg DAILY@06 PO Last administered on 05:27; Admin Dose 112 MCG; Start 05/20/17 at 14:00 Salmeterol Xinafoate/ Fluticasone (Advair 250/50 Diskus) 1 inh BID INH Last administered on 05/21/17 08:50; Admin Dose 1 INH; Start 05/20/17 at 21:00 Tiotropium [place] (Spiriva) 1 inh DAILY INH Last administered on 05/21/17 08: 50; Admin Dose 1 INH; Start 05/20/17 at 14:00 Ibuprofen (Motrin) 400 mg Q6H PRN PO PAIN; Start 05/20/17 at 14:00 Enoxaparin Sodium (Lovenox) 40 mg DAILY SC Last administered on 05/21/17 08:49 ; Admin Dose 40 MG; Start 05/20/17 at 17:00 Insulin Glargine (Lantus) 15 unit DAILY@20 SC Last administered on 05/20/17 21 :21; Admin Dose 15 UNIT; Start 05/20/17 at 20:00 RHONDA PENA May 21, 2017 19:07
[2017-05-22] MEDS ORDERED: INSULIN ASPART [NOVOLOG] 3 ML PEN SC SCH (08:00)
== END 2017-05-21 19:45 | disposition home or self-care (01) | DRG 247 ==
LOC: E/R 13:31 → ICU 17:30 → MS4 05-19 22:29
PROVIDERS: ADMIT Internal Medicine; ATTEND Internal Medicine
PROC: B2111ZZ Fluoroscopy of Multiple Coronary Arteries using Low Osmolar Contrast (ICD-10-PCS; 2017-05-18)
PROC: 027034Z Dilation of Coronary Artery, One Artery with Drug-eluting Intraluminal Device, Percutaneous Approach (ICD-10-PCS; principal; 2017-05-18 17:30)
PROC: 4A023N7 Measurement of Cardiac Sampling and Pressure, Left Heart, Percutaneous Approach (ICD-10-PCS; 2017-05-18 17:30)
DX: I21.19 ST elevation (STEMI) myocardial infarction involving other coronary artery of inferior wall (principal); I50.22 Chronic systolic (congestive) heart failure; I25.10 Atherosclerotic heart disease of native coronary artery without angina pectoris; E11.65 Type 2 diabetes mellitus with hyperglycemia; M79.642 Pain in left hand; M79.641 Pain in right hand; E03.9 Hypothyroidism, unspecified; J44.9 Chronic obstructive pulmonary disease, unspecified; Z79.4 Long term (current) use of insulin; E78.5 Hyperlipidemia, unspecified
CPT/HCPCS: 36415; 36600; 71010; 80048; 80053; 80061; 80162; 82550; 82553; 82803; 82962; 83036; 83605; 83735; 83880; 84100; 84439; 84443; 84484; 85025; 85610; 85730; 87040; 93005; 93306; 93458; C1725; C1760; C1874; C1887; C9606; J0583; J1200; J1644; J1650; J1815; J2250; J2270; J2405; J2930; J3010; J3475; J7030; Q9967

== ENCOUNTER 2017-09-06 14:39 | Emergency (ER) | END 2017-09-06 18:35 | disposition left against medical advice (07) ==

== ENCOUNTER 2017-10-08 14:07 | Inpatient (IN) | END 2017-10-15 15:58 | disposition home or self-care (01) | DRG 67 ==

== ENCOUNTER 2018-08-29 15:19 | Emergency (ER) | payer OTHER ==
[~2018-08-29] VITALS: Wt 55.0 kg
[~2018-08-29 15:19] MED LIST changes: +ADMELOG SUBCUTANE*; +ALBU2.5V3 NEB; -ALBU8.5H3 INH; -ALEN70TA30 PO; +ALEN70TA5 PO; +AMIT10TA6 PO; -ASPI-664 PO; +ASPI-817 PO; +ATOR20TA38 PO; -ATOR40TA68 PO; -BENZ-5 PO; +BENZ1LOZ4 MT; +DILT60TA29 PO; +FLUT1BLS INH; -FURO-110 PO; +FURO40TA4 PO; +Guaifenesin/Dm (Sr) PO; -INSU200I SQ; +Insulin Glargine SC; -LANT3I SC; +LOSA25TA2 PO; +NICO-546 TRANSDERM; +NOVO3I SC; -Promethazine/Codeine Syp PO; -TIOT18CA INH
[2018-08-29] MEDS ORDERED: ONDANSETRON 4 MG INJ IV STA (16:15)
[2018-08-29] MEDS ORDERED: SOD CHLORIDE 0.9% 1,000 ML IV STA (16:15)
[2018-08-29] MEDS ORDERED: morphine 2 MG INJ IV STA (16:15)
--- NOTE | 2018-08-29 16:18 | ERD ---
ER Documentation Chief Complaint Chief Complaint PT BIB AMBULANCE WITH C/O RECTAL BLEEDING, ONSET THIS AM, NO N/V HPI This is a 57-year-old female with past medical history of coronary artery disease. 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 Adames. The patient is on Brilinta and takes aspirin on a daily basis. She indicates that this morning upon awakening after having a bowel movement she noticed bright red blood covering her stool. She also noticed that the blood was present when wiping the rectum after a bowel movement. She was complaining of tenderness in her left lower quadrant that began several days ago and is intermittent. The tenderness does not radiate to the back. She had no fevers or shaking or chills. She denies any hemoptysis or hematemesis and no melanotic stools. She denies any chest pain. She has no shortness of breath at rest or exertion. She denies any lightheadedness weakness or dizziness. ROS All systems reviewed and are negative except as per history of present illness. Medications Home Meds Active Scripts Hydrocortisone Acetate (Anusol-Hc) 25 Mg Supp.rect, 1 SUPP [place] BID PRN for H EMORROID PAIN/ITCHING, #20 SUPP.RECT Prov:RUTHIE GRULLON MD 08/29/18 Reported Medications Insulin Lispro (Humalog Kwikpen) 200 Unit/1 Ml Insuln.pen, 0 SQ AC H, EA SLIDING SCALE 08/29/18 Insulin Glargine* (Lantus*) 100 Unit/Ml Soln, 25 UNIT SC QHS, #1 VIAL 08/29/18 Atorvastatin Calcium* (Atorvastatin Calcium*) 20 Mg Tablet, 20 MG PO QHS, #30 TAB 08/29/18 Tramadol Hcl* (Ultram*) 50 Mg Tablet, 50 MG PO Q6H PRN for PAIN, TAB 08/29/18 Gabapentin* (Gabapentin*) 600 Mg Tablet, 600 MG PO TID, #90 TAB 08/29/18 Gabapentin* (Gabapentin*) 300 Mg Capsule, 900 MG PO QHS, #270 CAP 08/29/18 Amitriptyline Hcl* (Amitriptyline Hcl*) 10 Mg Tablet, 10 MG PO QHS, #30 TAB 08/29/18 Levothyroxine Sodium* (Synthroid*) 112 Mcg Tablet, 112 MCG PO BEFORE BREAKFAST, #30 TAB 08/29/18 Losartan Potassium* (Cozaar*) 25 Mg Tablet, 25 MG PO DAILY, #30 TAB 08/29/18 Furosemide* (Furosemide*) 40 Mg Tablet, 40 MG PO DAILY, TAB 08/29/18 Aspirin (Low Dose Aspirin) 81 Mg Tablet.dr, 81 MG PO DAILY, #30 TAB 08/29/18 Ticagrelor* (Brilinta*) 90 Mg Tablet, 90 MG PO Q12, TAB 08/29/18 Diltiazem Hcl* (Cardizem SR*) 60 Mg Capsr, 60 MG PO Q12, #60 CAP 08/29/18 Metoprolol Tartrate* (Lopressor*) 25 Mg Tab, 25 MG PO BID, #60 TAB 08/29/18 Discontinued Reported Medications Alendronate Sodium* (Fosamax*) 70 Mg Tablet, 70 MG PO Q7D, #4 TAB 06/12/18 Amitriptyline Hcl* (Amitriptyline Hcl*) 10 Mg Tablet, 10 MG PO QHS, #30 TAB 06/12/18 [Admelog] No Conflict Check, 25 UNITS SUBCUTANE* AC A 06/12/18 Atorvastatin Calcium* (Atorvastatin Calcium*) 20 Mg Tablet, 20 MG PO QHS, #30 TAB 09/06/17 Levothyroxine Sodium* (Levothyroxine Sodium*) 112 Mcg Tablet, 112 MCG PO BEFORE BREAKFAST, #30 TAB 09/06/17 Discontinued Scripts Albuterol Sulfate* (Albuterol Sulfate* Neb) 0.083%-3 Ml Neb, 2.5 MG NEB Q4H, #30 VIAL 4 Refills Prov:LAURA OLMSTEADP S. 07/01/18 Ticagrelor* (Brilinta*) 90 Mg Tablet, 90 MG PO Q12, #60 TAB 8 Refills Prov:LAURA OLMSTEADP S. 07/01/18 Aspirin* (Aspirin* EC) 81 Mg Tablet.dr, 81 MG PO DAILY, #30 TAB 8 Refills Prov:ISHANTANIYA S. 07/01/18 Insulin Aspart* (Novolog Insulin Pen*) 100 Unit/Ml Soln, 7 UNIT SC AC DINNER, #1 BOTTLE 2 Refills Prov:LAURA OLMSTEADP S. 07/01/18 Insulin Aspart* (Novolog Insulin Pen*) 100 Unit/Ml Soln, 3 UNIT SC AC LUNCH, #1 VIAL 2 Refills Prov:TANIYA OLMSTEAD S. 07/01/18 [Insulin Glargine] 100 UNITS/ML SOLN No Conflict Check, 20 UNITS SC DAILY@2000, #1 VIAL 2 Refills Prov:TANIYA OLMSTEAD S. 07/01/18 Insulin Aspart* (Novolog Insulin Pen*) 100 Unit/Ml Soln, 8 UNIT SC AC BREAKFAST, #1 VIAL 1 Refill Prov:TANIYA OLMSTEAD S. 07/01/18 Benzocaine/Menthol (SORE THROAT LOZENGE) 1 Each Lozenge, 1 LOZENGE MT Q1H PRN for COUGH, #1 BOTTLE 2 Refills Prov:TANIYA OLMSTEAD S. 07/01/18 [Guaifenesin/Dm (Sr)] 1 TAB TABSR No Conflict Check, 1 TAB PO BID, #60 2 Refills Prov:TANIYA OLMSTEAD S. 07/01/18 Fluticasone/Vilanterol (Breo Ellipta 200-25 Mcg INH) 1 Each Blst.w.dev, 1 INH INH DAILY, #1 BOTTLE 3 Refills Prov:TANIYA OLMSTEAD S. 07/01/18 Furosemide* (Furosemide*) 40 Mg Tablet, 40 MG PO DAILY, #30 TAB 1 Refill Prov:TANIYA OLMSTEAD S. 07/01/18 Metoprolol Tartrate* (Lopressor*) 25 Mg Tab, 12.5 MG PO BID, #60 TAB 2 Refills Prov:TANIYA OLMSTEAD S. 07/01/18 Losartan Potassium* (Cozaar*) 25 Mg Tablet, 25 MG PO DAILY, #30 TAB 2 Refills Prov:TANIYA OLMSTEAD S. 07/01/18 Diltiazem Hcl* (Cardizem*) 60 Mg Tablet, 60 MG PO BID, #60 TAB 2 Refills Prov:TANIYA OLMSTEAD S. 07/01/18 Nicotine* (Nicotine* Patch) 21 mg/day Patch, 1 PATCH TRANSDERM DAILY, #1 BOTTLE 2 Refills Prov:TANIYA OLMSTEAD S. 07/01/18 Salmeterol Xinaf/Fluticasone* (Advair*) 250-50 Diskus Inhaler, 1 INH INH BID for 30 Days, #30 DAYSX 3 28 4 Refills Prov:TARA VÁZQUEZ MD 10/15/17 Gabapentin* (Gabapentin*) 300 Mg Capsule, 300 MG PO TID for 30 Days, #90 CAP Prov:TARA VÁZQUEZ MD 10/15/17 Allergies Allergies: Coded Allergies: ibuprofen (Verified Allergy, Mild, VOMITING,DIZZINESS, 08/29/18) Fish Containing Products (Verified Allergy, Unknown, 08/29/18) PMhx/Soc History of Surgery: Yes (CABG) Anesthesia Reaction: No Hx 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 Disorder: No Hx Respiratory Disorders: Yes (BRONCHITIS) Hx Cardiac Disorders: Yes (Hx of CABG, CAD) Hx Psychiatric Problems: No Hx Miscellaneous Medical Probl: Yes (hypothyroid, cad, iddm, s/p cabg,H.OF FALL, RT KNEE PAIN ) Hx Alcohol Use: No Hx Substance Use: No Hx Tobacco Use: No Smoking Status: Current some day smoker Physical Exam Vitals Vital Signs Date Temp Pulse Resp B/P (MAP) Pulse Ox O2 O2 Flow FiO2 Time Delivery Rate 08/29/18 89 18 110/48 96 Room Air 19:09 (68) 08/29/18 86 18 126/51 97 Room Air 17:48 (76) 08/29/18 98.5 88 17 121/55 97 15:29 (77) Physical Exam Constitutional:Well-developed. Well-nourished. HEENT:Normocephalic. Atraumatic.Pupils were equal round reactive to light. Moist mucous membranes.No tonsillar exudates. Neck: No nuchal rigidity. No lymphadenopathy. No posterior cervical spine tenderness or step-offs. Respiratory: Not using accessory muscles of respiration.Lungs were clear to auscultation bilaterally. No rhonchi. No rales. No wheezing. Cardiovascular: Regular rate regular rhythm.No murmurs. No rubs were appreciated.S1, S2 normal. Distal pulses are palpable 2+ bilaterally. GI: Abdomen was soft. Left lower quadrant tenderness. Non Distended. No pulsatile abdominal masses or bruits. No rebound. No guarding. Bowel sounds were present and normal. Muscle skeletal: Full range of motion of both the upper and lower extremities bilaterally.Normal muscle tone.No assymetrical calf tenderness or swelling. : Small nonthrombosed external hemorrhoid at the 6 o'clock position. Fecal occult blood test negative. No bright red blood per rectum. Skin: No petechia, no purpura. No lesions on the palms or the soles of the feet. No maculopapular rash. NEURO: Patient was alert, awake, orientated x3.No facial droop. Gait observed and normal with no ataxia.Speech had regular rate and rhythm. No focal neurological deficits. Result Diagram: 08/29/18 1623 08/29/18 1623 Results 24 hrs Laboratory Tests Test 08/29/18 16:23 08/29/18 18:14 08/29/18 19:17 White Blood Count 8.1 10^3/ul Red Blood Count 4.10 10^6/ul Hemoglobin 11.7 g/dl Hematocrit 37.1 % Mean Corpuscular Volume 90.5 fl Mean Corpuscular Hemoglobin 28.5 pg Mean Corpuscular 31.5 g/dl Hemoglobin Concent Red Cell Distribution Width 11.9 % Platelet Count 373 10^3/UL Mean Platelet Volume 9.8 fl Immature Granulocytes % 0.500 % Neutrophils % 63.1 % Lymphocytes % 21.6 % Monocytes % 7.2 % Eosinophils % 6.6 % Basophils % 1.0 % Nucleated Red Blood Cells % 0.0 /100WBC Immature Granulocytes # 0.040 10^3/ul Neutrophils # 5.1 10^3/ul Lymphocytes # 1.7 10^3/ul Monocytes # 0.6 10^3/ul Eosinophils # 0.5 10^3/ul Basophils # 0.1 10^3/ul Nucleated Red Blood Cells # 0.0 10^3/ul Prothrombin Time 12.0 Sec Prothrombin Time Ratio 0.9 INR International Normalized Ratio 0.88 Activated Partial Thromboplast 27.6 Sec Time Sodium Level 140 mmol/L Potassium Level 4.2 mmol/L Chloride Level 102 mmol/L Carbon Dioxide Level 27 mmol/L Anion Gap 11 Blood Urea Nitrogen 25 mg/dl Creatinine 0.76 mg/dl Est Glomerular Filtrat Rate mL/min > 60 mL/min Glucose Level 103 mg/dl Calcium Level 9.8 mg/dl Total Bilirubin 0.5 mg/dl Direct Bilirubin 0.00 mg/dl Indirect Bilirubin 0.5 mg/dl Aspartate Amino Transf (AST/SGOT) 31 IU/L Alanine 29 IU/L Aminotransferase (ALT/SGPT) Alkaline Phosphatase 141 IU/L Troponin I < 0.012 ng/ml Total Protein 7.0 g/dl Albumin 4.2 g/dl Globulin 2.80 g/dl Albumin/Globulin Ratio 1.50 Amylase Level 89 U/L Lipase 52 U/L Bedside Glucose 65 mg/dL 133 mg/dL Current Medications Medications Dose Sig/Mo Start Time Status Last (Trade) Ordered Route PRN Stop Time Admin Dose Reason Admin Sodium 1,000 ml @ Q1H STAT 08/29/18 DC 08/29/18 Chloride 1,000 mls/hr IV 16:15 16:21 08/29/18 17:14 Morphine 2 mg ONCE STAT 08/29/18 DC 08/29/18 Sulfate IV 16:15 16:21 (morphine) 08/29/18 16:16 Ondansetron 4 mg ONCE STAT 08/29/18 DC 08/29/18 HCl (Zofran IV 16:15 16:21 Inj) 08/29/18 16:17 Procedures/MDM The patient presented to the emergency department with hematochezia, suggesting a lower gastrointestinal bleeding. My differential diagnosis included but was not limited to diverticulosis, cancer, polyps, colitis, internal or external hemorrhoids, IBD, and vascular etiologies such as angiodysplasia or aortocolonic fistula. The patient was placed on a cardiac cath tech, continuous pulse oximetry, and IV access established by nursing staff. The patient was given intravenous morphine and Zofran. The patient did have an external hemorrhoid which appeared to be a result of her rectal bleeding. The patient was not anemic. I obtained a CT scan of the abdomen reviewed by myself the radiologist and there is no evidence of diverticulosis. Observation Note: Time: 6 hours Family Hx: No Hypertension Evaluation: Multiple exams showed improving symptoms and no evidence of severe rectal bleeding. She did have a bowel movement while in the emergency department stated there was no bright red blood per rectum. I did feel this could be further evaluated on outpatient basis as there is no thrombosis. The patient was discharged home in fair condition. They were instructed to return to the emergency department at any time if there was any worsening of their condition. The patient stated they would follow up with their PCP in the next 24-48 hours to initiate a suitable medication regimen under the care of their PCP as well as to allow their PCP to monitor any drug reactions. The patient was discharged home with prescriptions after they gave informed consent to the new medication. They were also fully informed by myself on the adverse effects and adverse drug interactions in order to provide adequate safeguards to prevent pos sible adverse reactions to medications. Departure Diagnosis: Primary Impression: Hemorrhoid Hemorrhoid type: first degree Qualified Codes: K64.0 - First degree hemorrhoids Condition: RUTHIE Starks MD Aug 29, 2018 16:18
[2018-08-29] MEDS ORDERED: METO-448 PO (16:58)
[2018-08-29] MEDS ORDERED: TICA90TA PO (16:59)
[2018-08-29] MEDS ORDERED: FURO40TA4 PO (16:59)
[2018-08-29] MEDS ORDERED: CARSR60 PO (16:59)
[2018-08-29] MEDS ORDERED: ASPI81TA52 PO (16:59)
[2018-08-29] MEDS ORDERED: AMIT10TA6 PO (17:00)
[2018-08-29] MEDS ORDERED: LOSA25TA2 PO (17:00)
[2018-08-29] MEDS ORDERED: LEVO112T2 PO (17:00)
[2018-08-29] MEDS ORDERED: TRAM50TA PO (17:01)
[2018-08-29] MEDS ORDERED: GABA300C16 PO (17:01)
[2018-08-29] MEDS ORDERED: GABA-526 PO (17:01)
[2018-08-29] MEDS ORDERED: LANT3I SC (17:02)
[2018-08-29] MEDS ORDERED: ATOR20TA38 PO (17:02)
[2018-08-29] MEDS ORDERED: INSU200I SQ (17:04)
[2018-08-29] MEDS ORDERED: HYDR25SU23 PR (21:07)
[2018-08-29 21:09] VITALS: BP 130/69; PULSE 94; RESP 16
== END 2018-08-29 21:16 | disposition home or self-care (01) ==
LOC: E/R 15:19
DX: K64.0 First degree hemorrhoids (principal); I25.10 Atherosclerotic heart disease of native coronary artery without angina pectoris; F17.210 Nicotine dependence, cigarettes, uncomplicated; E03.9 Hypothyroidism, unspecified; Z79.4 Long term (current) use of insulin; Z79.82 Long term (current) use of aspirin; Z95.1 Presence of aortocoronary bypass graft
CPT/HCPCS: 36415; 74176; 80053; 82150; 82962; 83690; 84484; 85025; 85610; 85730; 93005; 96374; 96375; J2270; J2405; J7030; Z7502

== ENCOUNTER 2018-10-04 16:05 | Emergency (ER) | payer OTHER ==
[~2018-10-04] VITALS: Ht 152.4 cm; Wt 60.0 kg
[~2018-10-04 16:05] MED LIST changes: -ADMELOG SUBCUTANE*; -ADV25050 INH; -ALBU2.5V3 NEB; -ALEN70TA5 PO; -ASPI-817 PO; +ASPI81TA52 PO; -BENZ1LOZ4 MT; +CARSR60 PO; -DILT60TA29 PO; -FLUT1BLS INH; +GABA-526 PO; -Guaifenesin/Dm (Sr) PO; +HYDR25SU23 PR; +INSU200I SQ; -Insulin Glargine SC; +LANT3I SC; +LEVO112T2 PO; -LEVO112T57 PO; -NICO-546 TRANSDERM; -NOVO3I SC; +TRAM50TA PO
[2018-10-04 16:31] VITALS: Ht 152.4 cm; Wt 60.0 kg
[2018-10-04] MEDS ORDERED: METHYLPREDNISOLONE 125 MG INJ IV STA (16:49)
[2018-10-04] MEDS ORDERED: ONDANSETRON 4 MG INJ IV STA (16:49)
[2018-10-04] MEDS ORDERED: ACETAMINOPHEN 120 MG SUPP ONE (16:49)
[2018-10-04] MEDS ORDERED: morphine 4 MG/ML VIAL IV STA (16:49)
[2018-10-04] MEDS ORDERED: ALBUTEROL 0.083% (NEB) 2.5 MG/3 ML AMP NEB STA (16:49)
--- NOTE | 2018-10-04 17:47 | ERD ---
ER Documentation Chief Complaint Chief Complaint CHEST PAIN FROM FALL HPI This is a 58-year-old female who is here for chest pain. The patient stated that she has chronic orthostatic hypotension. She says that when she was walking to the [email or web address] cans just prior to arrival she became lightheaded as usual which she states and she fell forward but was not syncopal. She recalls a feeling of falling as well as hitting the ground. She says she hit her chest on the ground. She had no head injury or loss of consciousness. The patient also says he has been having a cough for 2 weeks and has a history of COPD. No fever and there is occasional productive sputum no chest pain ROS All systems reviewed and are negative except as per history of present illness. Medications Home Meds Active Scripts Albuterol Sulfate* (Proair HFA*) 8.5 Gm Hfa.aer.ad, 2 PUFF INH Q4, #1 INHALER Prov:SANJIV OLIVARES DO 10/04/18 Azithromycin* (Zithromax*) 250 Mg Tablet, 250 MG PO .RosyPACK DIRECTED, #6 TAB TAKE 500 MG (2 TABS) THE FIRST DAY THEN 250 MG (1 TAB) DAYS 2-5 Prov:SANJIV OLIVARES DO 10/04/18 Dextromethorphan Hb-Promethazine Hcl* (Promethazine DM* Syrup) 473 Ml Syrup, 5 ML PO Q6 PRN for COUGH, #50 ML Prov:SANJIV OLIVARES DO 10/04/18 Hydrocortisone Acetate (Anusol-Hc) 25 Mg Supp.rect, 1 SUPP UT BID PRN for HEMORROID PAIN/ITCHING, #20 SUPP.RECT Prov:RUTHIE GRULLON MD 08/29/18 Reported Medications Insulin Lispro (Humalog Kwikpen) 200 Unit/1 Ml Insuln.pen, 0 SQ AC H, EA SLIDING SCALE 08/29/18 Insulin Glargine* (Lantus*) 100 Unit/Ml Soln, 25 UNIT SC QHS, #1 VIAL 08/29/18 Atorvastatin Calcium* (Atorvastatin Calcium*) 20 Mg Tablet, 20 MG PO QHS, #30 TAB 08/29/18 Tramadol Hcl* (Ultram*) 50 Mg Tablet, 50 MG PO Q6H PRN for PAIN, TAB 08/29/18 Gabapentin* (Gabapentin*) 600 Mg Tablet, 600 MG PO TID, #90 TAB 08/29/18 Gabapentin* (Gabapentin*) 300 Mg Capsule, 900 MG PO QHS, #270 CAP 08/29/18 Amitriptyline Hcl* (Amitriptyline Hcl*) 10 Mg Tablet, 10 MG PO QHS, #30 TAB 08/29/18 Levothyroxine Sodium* (Synthroid*) 112 Mcg Tablet, 112 MCG PO BEFORE BREAKFAST, #30 TAB 08/29/18 Losartan Potassium* (Cozaar*) 25 Mg Tablet, 25 MG PO DAILY, #30 TAB 08/29/18 Furosemide* (Furosemide*) 40 Mg Tablet, 40 MG PO DAILY, TAB 08/29/18 Aspirin (Low Dose Aspirin) 81 Mg Tablet.dr, 81 MG PO DAILY, #30 TAB 08/29/18 Ticagrelor* (Brilinta*) 90 Mg Tablet, 90 MG PO Q12, TAB 08/29/18 Diltiazem Hcl* (Cardizem SR*) 60 Mg Capsr, 60 MG PO Q12, #60 CAP 08/29/18 Metoprolol Tartrate* (Lopressor*) 25 Mg Tab, 25 MG PO BID, #60 TAB 08/29/18 Allergies Allergies: Coded Allergies: ibuprofen (Verified Allergy, Mild, VOMITING,DIZZINESS, 10/04/18) Fish Containing Products (Verified Allergy, Unknown, 10/04/18) PMhx/Soc History of Surgery: Yes (CABG) Anesthesia Reaction: No Hx 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 Disorder: No Hx Respiratory Disorders: Yes (BRONCHITIS) Hx Cardiac Disorders: Yes (Hx of CABG, CAD) Hx Psychiatric Problems: No Hx Miscellaneous Medical Probl: Yes (hypothyroid, cad, iddm, s/p cabg,H.OF FALL, RT KNEE PAIN ) Hx Alcohol Use: No Hx Substance Use: No Hx Tobacco Use: No Smoking Status: Never smoker FmHx Family History: No coronary disease Physical Exam Vitals Vital Signs Date Temp Pulse Resp B/P (MAP) Pulse Ox O2 O2 Flow FiO2 Time Delivery Rate 10/04/18 98.7 82 25 105/45 96 Nasal 3.0 21:52 (65) Cannula 10/04/18 98.7 92 16 103/52 99 Nasal 3.0 20:36 (69) Cannula 10/04/18 98.7 88 16 108/47 99 Nasal 3.0 19:36 (67) Cannula 10/04/18 98.7 89 22 105/42 100 Nasal 3.0 18:20 (63) Cannula 10/04/18 Nasal 3 17:30 Cannula 10/04/18 98.7 89 19 109/49 95 Nasal 3.0 17:29 (69) Cannula 10/04/18 83 22 100 Nasal 4.0 17:09 Cannula 10/04/18 98.7 89 23 91/38 (55) 95 16:31 10/04/18 98.7 89 23 91/38 (55) 95 Nasal 3.0 16:31 Cannula Physical Exam Const: Well-developed, well-nourished Head: Atraumatic, normocephalic Eyes: Normal Conjunctiva, PERRLA, EOMI, normal sclera, no nystagmus ENT: Normal External Ears, Nose and Mouth, moist mucus membranes. Neck: Full range of motion. No meningismus, no lymphadenopathy. Resp: Decreased breath sounds bilaterally consistent with history of any, there is some wheezing as well on inspiration there is diffuse anterior reproducible chest wall tenderness Cardio: Regular rate and rhythm, no murmurs, S1 S2 present Abd: Soft, non tender x 4, non distended. Normal bowel sounds, no guarding or rebound, no pulsitile abdominal masses or bruits Skin: No petechiae or rashes, no ecchymosis , no maculopapular rash Back: No midline or flank tenderness Ext: No cyanosis, or edema, FROM x 4, normal inspection, neurovascula rly intact x 4 Neur: Awake and alert, STR 5/5 x 4, sensation intact x 4, no focal findings, cerebellum intact Psych: Normal Mood and Affect Result Diagram: 10/04/18 1620 10/04/18 1620 Results 24 hrs Laboratory Tests Test 10/04/18 16:20 10/04/18 16:59 10/04/18 19:36 10/04/18 20:36 White Blood Count 7.7 10^3/ul Red Blood Count 3.55 10^6/ul Hemoglobin 9.4 g/dl Hematocrit 30.9 % Mean Corpuscular 87.0 fl Volume Mean Corpuscular 26.5 pg Hemoglobin Mean Corpuscular 30.4 g/dl Hemoglobin Concent Red Cell 13.1 % Distribution Width Platelet Count 368 10^3/UL Mean Platelet 10.2 fl Volume Immature 0.300 % Granulocytes % Neutrophils % 81.1 % Lymphocytes % 10.1 % Monocytes % 5.0 % Eosinophils % 2.7 % Basophils % 0.8 % Nucleated Red Blood 0.0 /100WBC Cells % Immature 0.020 10^3/ul Granulocytes # Neutrophils # 6.2 10^3/ul Lymphocytes # 0.8 10^3/ul Monocytes # 0.4 10^3/ul Eosinophils # 0.2 10^3/ul Basophils # 0.1 10^3/ul Nucleated Red Blood 0.0 10^3/ul Cells # Sodium Level 131 mmol/L Potassium Level 4.7 mmol/L Chloride Level 97 mmol/L Carbon Dioxide 25 mmol/L Level Anion Gap 9 Blood Urea Nitrogen 20 mg/dl Creatinine 0.93 mg/dl Est Glomerular > 60 mL/min Filtrat Rate mL/min Glucose Level 703 mg/dl Calcium Level 9.5 mg/dl Total Bilirubin 0.5 mg/dl Direct Bilirubin 0.00 mg/dl Indirect Bilirubin 0.5 mg/dl Aspartate Amino 78 IU/L Transf (AST/SGOT) Alanine 34 IU/L Aminotransferase (A LT/SGPT) Alkaline 159 IU/L Phosphatase Troponin I < 0.012 ng/ml Total Protein 6.4 g/dl Albumin 4.0 g/dl Globulin 2.40 g/dl Albumin/Globulin 1.66 Ratio Bedside Glucose > 595 mg/dL 580 mg/dL 509 mg/dL Test 10/04/18 21:49 Bedside Glucose 419 mg/dL Current Medications Medications Dose Sig/Mo Start Time Status Last (Trade) Ordered Route PRN Stop Time Admin Dose Reason Admin 120 mg STK-MED 10/04/18 DC Acetaminophen ONCE .ROUTE 16:49 (Tylenol 10/04/18 16:50 Supp) Morphine 4 mg ONCE STAT 10/04/18 DC 10/04/18 Sulfate IV 16:49 17:26 (morphine) 10/04/18 16:51 Ondansetron 4 mg ONCE STAT 10/04/18 DC 10/04/18 HCl (Zofran IV 16:49 17:03 Inj) 10/04/18 16:51 Albuterol 7.5 mg ONCE STAT 10/04/18 DC 10/04/18 (Proventil NEB 16:49 17:09 0.083% (Neb)) 10/04/18 16:51 125 mg ONCE STAT 10/04/18 DC 10/04/18 Methylprednis IV 16:49 17:03 olone Sodium 10/04/18 16:51 Succinate (Solu-Medrol) Sodium 2,000 ml @ Q1H STAT 10/04/18 DC 10/04/18 Chloride 2,000 mls/hr IV 18:17 18:29 10/04/18 19:16 Insulin 14 unit ONCE ONCE 10/04/18 DC 10/04/18 Human SC 18:30 18:35 Lispro 10/04/18 18:31 (Humalog) Diagnostic 1 ea 2 HRS AFTER 10/04/18 DC Test (Pha) HUMALOG ONCE 18:30 (Accu-Chek) XX 10/04/18 18:31 Sodium 1,000 ml @ Q1H STAT 10/04/18 DC Chloride 1,000 mls/hr IV 20:22 10/04/18 21:21 Sodium 500 ml @ Q1H ONCE 10/04/18 Chloride 500 mls/hr IV 22:30 10/04/18 23:29 Procedures/MDM Ordering MD: SANJIV OLIVARES DO Location: E/R Room/Bed: PROCEDURE: XR Chest. CLINICAL INDICATION: chest pain TECHNIQUE: Single frontal view of the chest was obtained COMPARISON: 01/26/2017 FINDINGS: The heart and mediastinum are within normal limits. The patient is status post CABG. There is mild elevation of the left diaphragm. There are scattered linear atelectatic changes in the left upper lobe and left lower lobe. The lungs are otherwise clear. There is no pleural effusion or pneumothorax. RPTAT: AA IMPRESSION: Scattered left lung linear atelectatic changes. .Emmanuel Cheng MD, MD Date Time Electronically viewed and signed by .Emmanuel Cheng MD, on 10/04/2018 17:11 .S/ CC: SANJIV OLIVARES DO [id number] Patient was found to be very hyperglycemic. She states that she has been skipping some insulin doses. We will resume these at home because I told her that she has been way too high today. She said that she is feeling better. She has no pneumonia on her chest x-ray. She will be discharged home with some cough syrup, albuterol inhaler with some Z-Chetan. She has chest wall contusion no evidence of any fractured ribs or pneumothorax. Will discharge her once her blood glucose gets under 300. She received insulin and IV fluids Departure Diagnosis: Primary Impression: Hyperglycemia Additional Impressions: Bronchitis Chest wall contusion Encounter type: initial encounter Laterality: unspecified laterality Qualified Codes: S20.219A - Contusion of unspecified front wall of thorax, initial encounter Condition: Stable SANJIV OLIVARES DO Oct 04, 2018 17:47
[2018-10-04] MEDS ORDERED: SOD CHLORIDE 0.9% 2,000 ML IV STA (18:17)
[2018-10-04] MEDS ORDERED: INSULIN LISPRO 100 UNIT/ML VIAL SC ONE ×2 (18:30→23:00)
[2018-10-04] MEDS ORDERED: ACCU-CHEK XX ONE ×2 (18:30→23:00)
[2018-10-04] MEDS ORDERED: SOD CHLORIDE 0.9% 1,000 ML IV STA (20:22)
[2018-10-04] MEDS ORDERED: SOD CHLORIDE 0.9% 500 ML IV ONE (22:30)
[2018-10-04] MEDS ORDERED: ALBU8.5H8 INH (22:44)
[2018-10-04] MEDS ORDERED: D-ME473S2 PO (22:44)
[2018-10-04] MEDS ORDERED: AZIT250T PO (22:44)
[2018-10-04 23:52] VITALS: BP 112/56; PULSE 88; RESP 18
== END 2018-10-05 00:13 | disposition home or self-care (01) ==
LOC: E/R 16:05
DX: E11.65 Type 2 diabetes mellitus with hyperglycemia (principal); J40 Bronchitis, not specified as acute or chronic; S20.219A Contusion of unspecified front wall of thorax, initial encounter; I10 Essential (primary) hypertension; I25.10 Atherosclerotic heart disease of native coronary artery without angina pectoris; E03.9 Hypothyroidism, unspecified; J44.9 Chronic obstructive pulmonary disease, unspecified; W01.198A Fall on same level from slipping, tripping and stumbling with subsequent striking against other object, initial encounter; Y92.9 Unspecified place or not applicable; Z95.1 Presence of aortocoronary bypass graft; Z79.82 Long term (current) use of aspirin; Z79.4 Long term (current) use of insulin
CPT/HCPCS: 36415; 71045; 80053; 82962; 84484; 85025; 93005; 94664; 96372; 96374; 96375; J1815; J2270; J2405; J2930; J7030; J7040; Z7502; Z7610

== ENCOUNTER 2018-10-07 07:24 | Inpatient (IN) | payer OTHER ==
[~2018-10-07] VITALS: Ht 152.4 cm; Wt 56.4 kg
[2018-10-07] VITALS (13 sets, daily range): BP systolic 62–123; BP diastolic 29–85; PULSE 87–106; RESP 18–27; Ht 152.4 cm; Wt 56.4 kg
[~2018-10-07 07:24] MED LIST changes: +ALBU8.5H8 INH; +AZIT250T PO; +D-ME473S2 PO
[2018-10-07] MEDS ORDERED: SOD CHLORIDE 0.9% 600 ML IV ONE (07:30)
[2018-10-07] MEDS ORDERED: ALBUTEROL 0.083% (NEB) 2.5 MG/3 ML AMP NEB STA (08:02)
[2018-10-07] MEDS ORDERED: IPRATROPIUM (NEB) 0.5 MG/2.5 ML AMP NEB STA (08:02)
--- NOTE | 2018-10-07 08:02 | ERD ---
ER Documentation Chief Complaint Chief Complaint BIB RA FOR EVAL OF HYPERGLYCEMIA READ "HI" ON EMS GLUCOMETER HPI This is a 58-year-old female with a history of insulin-dependent diabetes mellitus and hypertension. The patient lives at home with her daughter. The patient indicates that for the past several days she has had generalized myalgias, polyuria and polydipsia. The patient was seen and evaluated at [facility] 3 days prior to arrival. She was treated for hyperglycemia and there is no evidence of diabetic ketoacidosis and subsequently discharged home. However the patient states since discharge she has not taken any of her medications including her insulin. She states the reason for not taking the medications that she did not feel well enough to get up off the couch and go to the bathroom where she keeps her medications. She denies a fever. She denies a headache. She denies any nausea vomiting or diarrhea. She denies any chest pain. She has no shortness of breath at rest or exertion. He was brought into the emergency department by EMS who indicated her blood glucose read high. The patient also indicates that she smokes tobacco and has a history of COPD. She was complaining of mild dyspnea that began 48 hours ago. She never required intubation in the past and states she did not use her inhaler prior to arrival. She is not on home oxygen per ROS All systems reviewed and are negative except as per history of present illness. Medications Home Meds Active Scripts Albuterol Sulfate* (Proair HFA*) 8.5 Gm Hfa.aer.ad, 2 PUFF INH Q4, #1 INHALER Prov:SANJIV OLIVARES DO 10/04/18 Azithromycin* (Zithromax*) 250 Mg Tablet, 250 MG PO .ZPACK DIRECTED, #6 TAB TAKE 500 MG (2 TABS) THE FIRST DAY THEN 250 MG (1 TAB) DAYS 2-5 Prov:SANJIV OLIVARES DO 10/04/18 Dextromethorphan Hb-Promethazine Hcl* (Promethazine DM* Syrup) 473 Ml Syrup, 5 ML PO Q6 PRN for COUGH, #50 ML Prov:SANJIV OLIVARES DO 10/04/18 Hydrocortisone Acetate (Anusol-Hc) 25 Mg Supp.rect, 1 SUPP SD BID PRN for HEMORROID PAIN/ITCHING, #20 SUPP.RECT Prov:RUTHIE GRULLON MD 08/29/18 Reported Medications Insulin Lispro (Humalog Kwikpen) 200 Unit/1 Ml Insuln.pen, 0 SQ AC H, EA SLIDING SCALE 08/29/18 Insulin Glargine* (Lantus*) 100 Unit/Ml Soln, 25 UNIT SC QHS, #1 VIAL 08/29/18 Atorvastatin Calcium* (Atorvastatin Calcium*) 20 Mg Tablet, 20 MG PO QHS, #30 TAB 08/29/18 Tramadol Hcl* (Ultram*) 50 Mg Tablet, 50 MG PO Q6H PRN for PAIN, TAB 08/29/18 Gabapentin* (Gabapentin*) 600 Mg Tablet, 600 MG PO TID, #90 TAB 08/29/18 Gabapentin* (Gabapentin*) 300 Mg Capsule, 900 MG PO QHS, #270 CAP 08/29/18 Amitriptyline Hcl* (Amitriptyline Hcl*) 10 Mg Tablet, 10 MG PO QHS, #30 TAB 08/29/18 Levothyroxine Sodium* (Synthroid*) 112 Mcg Tablet, 112 MCG PO BEFORE BREAKFAST, #30 TAB 08/29/18 Losartan Potassium* (Cozaar*) 25 Mg Tablet, 25 MG PO DAILY, #30 TAB 08/29/18 Furosemide* (Furosemide*) 40 Mg Tablet, 40 MG PO DAILY, TAB 08/29/18 Aspirin (Low Dose Aspirin) 81 Mg Tablet.dr, 81 MG PO DAILY, #30 TAB 08/29/18 Ticagrelor* (Brilinta*) 90 Mg Tablet, 90 MG PO Q12, TAB 08/29/18 Diltiazem Hcl* (Cardizem SR*) 60 Mg Capsr, 60 MG PO Q12, #60 CAP 08/29/18 Metoprolol Tartrate* (Lopressor*) 25 Mg Tab, 25 MG PO BID, #60 TAB 08/29/18 Allergies Allergies: Coded Allergies: ibuprofen (Verified Allergy, Mild, VOMITING,DIZZINESS, 10/07/18) Fish Containing Products (Verified Allergy, Unknown, 10/07/18) PMhx/Soc History of Surgery: Yes (CABG) Anesthesia Reaction: No Hx 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 Disorder: No Hx Respiratory Disorders: Yes (BRONCHITIS) Hx Cardiac Disorders: Yes (Hx of CABG, CAD) Hx Psychiatric Problems: No Hx Miscellaneous Medical Probl: Yes (hypothyroid, cad, iddm, s/p cabg,H.OF FALL, RT KNEE PAIN ) Hx Alcohol Use: No Hx Substance Use: No Hx Tobacco Use: No Physical Exam Vitals Vital Signs Date Temp Pulse Resp B/P (MAP) Pulse Ox O2 O2 Flow FiO2 Time Delivery Rate 10/07/18 98.3 111 20 93/53 (66) 98 Room Air 11:00 10/07/18 102 18 100 21 08:28 10/07/18 Nasal 07:45 Cannula 10/07/18 98.8 105 18 126/58 94 07:30 (80) Physical Exam Constitutional:Well-developed. Well-nourished but disheveled HEENT:Normocephalic. Atraumatic.Pupils were equal round reactive to light. Very dry mucous membranes.No tonsillar exudates. Neck: No nuchal rigidity. No lymphadenopathy. No posterior cervical spine tenderness or step-offs. Respiratory: Not using accessory muscles of respiration.Lungs were clear to auscultation bilaterally. No rhonchi. No rales. Wheezing on and auscultation bilaterally. Cardiovascular: Regular rate regular rhythm.No murmurs. No rubs were appreciated.S1, S2 normal. Distal pulses are palpable 2+ bilaterally. GI: Abdomen was soft. Nontender. Non Distended. No pulsatile abdominal masses or bruits. No rebound. No guarding. Bowel sounds were present and normal. Muscle skeletal: Full range of motion of both the upper and lower extremities bilaterally.Normal muscle tone.No assymetrical calf tenderness or swelling. Skin: No petechia, no purpura. No lesions on the palms or the soles of the feet. No maculopapular rash. NEURO: Patient was alert, awake, orientated x3.No facial droop. Gait not observed as patient felt too weak to ambulate.Speech had regular rate and rhythm. No focal neurological deficits. Result Diagram: 10/07/18 0801 10/07/18 1237 Results 24 hrs Laboratory Tests Test 10/07/18 07:41 10/07/18 07:56 10/07/18 08:01 10/07/18 09:16 Bedside Glucose > 595 mg/dL > 595 mg/dL Blood Gas Blood arterial Specimen Source Arterial Blood 10/07/2018 7:50: Date Drawn 15 AM Arterial Blood 7.347 pH (Temp corrected ) Arterial Blood 18.0 mmhg pCO2 (Temp correct) Arterial Blood 97.7 mmHG pO2 (Temp corrected ) Arterial Blood 9.6 mmol/L HCO3 Arterial Blood -13.8 mmol/L Base Excess Arterial Blood 96.7 mmHG Oxygen Saturati on Miguel Test ACCEPTAB Arterial Blood Left Radial Gas Puncture Site Arterial 0.8 % Blood Carboxyhe moglobin Arterial Blood 0.1 % Methemoglobin Blood Gas A-a 30.5 mmHg O2 Differential Oxyhemoglobin 95.8 % Percent Blood Gas 37.0 C Temperature Blood Gas ROOM AIR Modality FiO2 21.0 % Blood Gas DR GRULLON Critical Value Read Back Blood Gas TM Notified Whom Blood Gas 10/07/2018 8:13: Notified Time 08 AM White Blood 21.0 10^3/ul Count Red Blood Count 4.01 10^6/ul Hemoglobin 10.6 g/dl Hematocrit 35.7 % Mean 89.0 fl Corpuscular Volume Mean 26.4 pg Corpuscular Hemoglobin Mean 29.7 g/dl Corpuscular Hemoglobin Conc ent Red Cell 13.5 % Distribution Width Platelet Count 530 10^3/UL Mean Platelet 9.9 fl Volume Immature 1.300 % Granulocytes % Neutrophils % % Segmented 92 % Neutrophils % (Manual) Lymphocytes % % Lymphocytes % 2 % (Manual) Monocytes % % Monocytes % 6 % (Manual) Eosinophils % % Basophils % % Nucleated Red 0.1 /100WBC Blood Cells % Immature 0.280 10^3/ul Granulocytes # Neutrophils # 10^3/ul Lymphocytes 0.4 10^3/ul (Manual) Lymphocytes # 10^3/ul Monocytes # 10^3/ul Monocytes # 1.2 10^3/ul (Manual) Eosinophils # 10^3/ul Basophils # 10^3/ul Nucleated Red 10^3/ul Blood Cells # Platelet INCREASED Estimate Giant Platelets 1 % Platelet @See below Morphology Comment Polychromasia 3+ Anisocytosis 1+ Microcytosis 1+ Prothrombin 13.0 Sec Time Prothrombin 1.0 Time Ratio INR 0.97 International Normalized Rati o Activated 25.2 Sec Partial Thrombo plast Time Sodium Level 138 mmol/L Potassium Level 6.0 mmol/L Chloride Level 94 mmol/L Carbon Dioxide 10 mmol/L Level Anion Gap 34 Blood Urea 46 mg/dl Nitrogen Creatinine 1.42 mg/dl Est Glomerular 38 mL/min Filtrat Rate mL/min Glucose Level 678 mg/dl Hemoglobin A1c 10.3 % Lactic Acid 4.7 mmol/L Level Calcium Level 9.8 mg/dl Phosphorus 8.2 mg/dl Level Magnesium Level 2.7 mg/dl Total Bilirubin 0.9 mg/dl Direct 0.00 mg/dl Bilirubin Indirect 0.9 mg/dl Bilirubin Aspartate Amino 37 IU/L Transf (AST/SGO T) Alanine 29 IU/L Aminotransferas e (ALT/SGPT) Alkaline 200 IU/L Phosphatase Troponin I < 0.012 ng/ml Total Protein 7.6 g/dl Albumin 4.8 g/dl Globulin 2.80 g/dl Albumin/Globuli 1.71 n Ratio Test 10/07/18 10:14 10/07/18 10:37 10/07/18 11:05 10/07/18 11:18 Blood Gas Blood venous Specimen Source Arterial Blood 10/07/2018 10:55 Date Drawn :01 AM Arterial Blood VENOUS LINE Gas Puncture Site Miguel Test N/A Venous Blood pH 7.142 Venous Blood 25.2 mmHG pCO2 (Temp Corrected ) Venous Blood 52.3 mmHG pO2 (Temp Corrected ) Venous Blood 8.4 mmol/L HCO3 Venous Blood 73.8 mmHG Oxygen Saturation Venous Blood -19.0 mmol/L Base Excess Venous Blood 10.5 g/dl Total Hemoglobin Venous Blood 73.1 % Oxyhemoglobin Venous Blood 0.2 % Methemoglobin Carboxyhemoglob 0.7 % in Blood Gas 37.0 C Temperature Blood Gas ROOM AIR Modality FiO2 21.0 % Blood Gas DR. GRULLON Critical Value Read Back Blood Gas Sylvain Notified Whom Blood Gas 10/07/2018 11:03 Notified Time :18 AM Bedside Glucose > 595 mg/dL > 595 mg/dL Sodium Level 142 mmol/L Potassium Level 4.3 mmol/L Chloride Level 103 mmol/L Carbon Dioxide 9 mmol/L Level Anion Gap 30 Blood Urea 44 mg/dl Nitrogen Creatinine 1.34 mg/dl Est Glomerular 41 mL/min Filtrat Rate mL/min Glucose Level 593 mg/dl Calcium Level 10.4 mg/dl Phosphorus 7.6 mg/dl Level Magnesium Level 2.6 mg/dl Test 10/07/18 12:15 10/07/18 12:37 Bedside Glucose 553 mg/dL Sodium Level 141 mmol/L Potassium Level 4.0 mmol/L Chloride Level 104 mmol/L Carbon Dioxide 11 mmol/L Level Anion Gap 26 Blood Urea 44 mg/dl Nitrogen Creatinine 1.32 mg/dl Est Glomerular 41 mL/min Filtrat Rate mL/min Glucose Level 528 mg/dl Lactic Acid 6.7 mmol/L Level Calcium Level 9.5 mg/dl Phosphorus 6.3 mg/dl Level Magnesium Level 2.6 mg/dl Current Medications Medications Dose Sig/Mo Start Time Status Last (Trade) Ordered Route PRN Stop Time Admin Dose Reason Admin Sodium 600 ml @ ONCE ONCE 10/07/18 DC 10/07/18 Chloride 600 mls/hr IV 07:30 09:10 10/07/18 08:29 Albuterol 5 mg ONCE STAT 10/07/18 DC 10/07/18 (Proventil NEB 08:02 08:28 0.083% (Neb)) 10/07/18 08:03 Ipratropium 0.5 mg ONCE STAT 10/07/18 DC 10/07/18 [place] NEB 08:02 08:28 (Atrovent 10/07/18 08:03 0.02% (Neb)) Potassium 1,000 ml @ Q0M IV 10/07/18 Chloride/Sodi 0 mls/hr 08:14 um Chloride Potassium 1,000 ml @ Q0M IV 10/07/18 Chloride/Dext 0 mls/hr 08:14 anabel/ Sod Cl Potassium 1,000 ml @ Q0M IV 10/07/18 Chloride/Sodi 0 mls/hr 08:14 um Chloride Potassium 1,000 ml @ Q0M IV 10/07/18 10/07/18 Chloride/Dext 0 mls/hr 08:14 12:39 anabel/ Sod Cl Sodium 1,000 ml @ Q0M IV 10/07/18 Chloride 0 mls/hr 08:14 1,000 ml @ Q0M IV 10/07/18 Dextrose/Sodi 0 mls/hr 08:14 um Chloride Insulin 101 ml @ ER DKA 10/07/18 10/07/18 Human 6.06 mls/hr PROTOCOL IV 08:30 09:47 Regular 100 unit/ Sodium Chloride Lactated 600 ml @ ONCE ONCE 10/07/18 DC 10/07/18 Ringer's 600 mls/hr IV 08:30 11:09 10/07/18 09:29 HYPOGLYCEM 10/07/18 Miscellaneous HYPOGLYCEMIA PROTOCOL PRN 08:30 TREATMENT XX Information .HYPOGLYCEMIA (* PROTOCOL Miscellaneous Pharmacy Order) Dextrose 50 ml Q15M PRN 10/07/18 (D50w IV 08:30 Syringe) .DECREASED GLUCOSE Dextrose 25 ml Q15M PRN 10/07/18 (D50w IV 08:30 Syringe) .DECREASED GLUCOSE Furosemide 40 mg ONCE STAT 10/07/18 DC 10/07/18 (Lasix) IV 08:46 11:09 10/07/18 08:54 Sodium 30 gm ONCE STAT 10/07/18 DC 10/07/18 Polystyrene PO 08:46 09:20 Sulfonate 10/07/18 08:54 (Kayexelate 15 Gm Kit (Powder+Sorbi lashon)) Sodium 50 ml ONCE STAT 10/07/18 DC 10/07/18 Bicarbonate IV 08:46 09:20 (Na Bicarb 10/07/18 08:54 8.4% Syg) Calcium 1,000 mg ONCE STAT 10/07/18 DC 10/07/18 Chloride IV 08:46 09:20 (Ca Chloride 10/07/18 08:54 10% Syg) Sodium 1,800 ml BOLUS OVER 2 10/07/18 DC 10/07/18 Chloride HOURS STAT 09:39 10:40 (NS) IV* 10/07/18 09:42 Cefepime HCl 50 ml @ ONCE STAT 10/07/18 DC 100 mls/hr IVPB 09:39 10/07/18 10:08 Vancomycin 250 ml @ ONCE ONCE 10/07/18 DC HCl 125 mls/hr IVPB 10:00 10/07/18 11:59 Lorazepam 2 mg STK-MED 10/07/18 DC (Ativan) ONCE .ROUTE 10:25 10/07/18 10:26 Procedures/MDM This is a 58-year-old female that presented to the emergency department with hyperglycemia. The patient was placed on hospital monitor continuous pulse oximetry and IV access was attempted by nursing staff. The patient showed signs of severe clinical dehydration was given a liter bolus of normal saline. The p atient's Accu-Chek was 595. Arterial blood gas showed metabolic acidosis. At this time the patient was treated for diabetic ketoacidosis and placed on insulin drip using the DKA protocol Patient also had wheezing on and auscultation with a chest radiograph that showed no infiltrates or pneumothorax. The patient received a nebulizer treatment of albuterol and Atrovent. IV steroids were not given as the patient was hyperglycemic and this could worsen her hyperglycemia. 12 Lead EKG tracing ordered and reviewed by myself showed: Sinus tachycardia 101 bpm and no arrhythmia. SD interval normal. QRS duration normal. No ST segment elevation No ST segment depression. No changes consistent with acute ischemia. The patient had leukocytosis with a white blood cell count of 21,000. At this time I obtained a lactic acid as the patient had sirs criteria. Lactic acid was elevated at 4.7. Therefore at this time the patient was treated for sepsis. Please note that there was a delay in the antibiotics given that [employer] was not working and I was unable to place the orders but did give a verbal order to nursing staff at 9:28 AM to administer the antibiotics and fluids. The patient was treated for sepsis of unclear etiology given vancomycin and ceftriaxone. Patient's infectious symptoms have not stabilized and the patient is at risk of rapid decompensation. The patient will be admitted for careful hydration, antibiotic therapy, and infectious source control. Severe Sepsis Assessment: Infectious Source: Unknown End organ damage indicated by: Lactate > 2.0 mmol/L Severe Sepsis Managment: Blood Cultures X 2 before broad spectrum antibiotics initiated within 3 hours of recognition. 30 ml/kg NS bolus Completed Initial Lactate: 4.7 Repeat Lactate 6.8 Septic Shock Assessment (1 hour post 30 ml/kg fluid bolus): Hypotension (SBP < 90 or 40 mmHg drop, MAP < 65): No Lactic acid > 4.0 Yes Perfusion Reassessment for Septic Shock taken at 11 AM: Temp 98.3, Pulse 111, RR 20, BP 93/53 Heart Exam: Tachycardic Lung Exam: No Crackles Capillary Refill: Normal Peripheral Pulses: Radially present Skin: Normal I considered further perfusion assessment with CVP measurement, SCVO2, bedside ultrasound volume assessment, passive leg raise, trial of further fluid bolus. And preceded with IV fluids. The patient had very poor peripheral vascular access and midline was placed by nursing staff. This is a single-lumen and given that the patient required multiple doses of antibiotics fluids and insulin drip for DKA a central line was attempted to be placed. The patient was prepped and draped in a sterile fashion. The left femoral vein was cannulated but it was difficult to pass the wire. Therefore on second attempt the femoral artery was hit and the needle was immediately removed and pressure was applied. The patient did not develop a hematoma. However the patient was refusing any further attempts. Patient was very aggressive. She was attempting to move life-saving devices. Therefore at this time verbal de-escalation was unable to calm the patient down she received 1 mg of Ativan intravenously. I have ordered for a PICC line to be placed which was done in her left upper extremity. The patient was also hyperkalemic. The patient received nebulizer treatments already and was given Kayexalate, an amp of bicarbonate of calcium chloride to treat her hyperkalemia. Critical Care: Time: 90 minutes Treatments/Evaluations: Close monitoring and treatment of unstable vital signs, cardiorespiratory, and neurologic status, while maintaining tight balance of fluid, respiratory, and cardiac interventions. Time does not include performing any of the above billable procedures. Departure Diagnosis: Primary Impression: COPD (chronic obstructive pulmonary disease) with chronic bronchitis Additional Impressions: Diabetic ketoacidosis Diabetes mellitus type: other specified (including ESAU) Diabetes mellitus complication detail: without coma Qualified Codes: E13.10 - Other specified diabetes mellitus with ketoacidosis without coma Septic shock Condition: Serious RUHTIE GRULLON MD Oct 07, 2018 08:02
[2018-10-07] MEDS ORDERED: D10/0.45% NACL + KCL 40 MEQ 1,000 ML IV SCH (08:14)
[2018-10-07] MEDS ORDERED: D10/0.45% NACL + KCL 30 MEQ 1,000 ML IV SCH (08:14)
[2018-10-07] MEDS ORDERED: NS + KCL 40 MEQ 1,000 ML IV SCH (08:14)
[2018-10-07] MEDS ORDERED: SOD CHLORIDE 0.9% 1,000 ML IV SCH (08:14)
[2018-10-07] MEDS ORDERED: DEXTROSE 10 %/0.45 % NACL 1,000 ML IV SCH (08:14)
[2018-10-07] MEDS ORDERED: LACTATED RINGER'S 600 ML IV ONE (08:30)
[2018-10-07] MEDS ORDERED: DEXTROSE 50% 50 ML SYRINGE IV PRN ×2 (08:30)
[2018-10-07] MEDS ORDERED: FUROSEMIDE 40 MG INJ IV STA (08:46)
[2018-10-07] MEDS ORDERED: SODIUM POLYSTYRENE 15 GM KIT (POWDER + SORBITOL) PO STA (08:46)
[2018-10-07] MEDS ORDERED: CA CHLORIDE 10% 10 ML SYRINGE IV STA (08:46)
[2018-10-07] MEDS ORDERED: NA BICARBONATE 8.4% 50 ML SYG IV STA (08:46)
[2018-10-07] MEDS ORDERED: SODIUM CHLORIDE 0.9% 1L BAG IV* STA (09:39)
[2018-10-07] MEDS ORDERED: CEFEPIME 2GM/50 ML (PMX) 50 ML IVPB STA (09:39)
[2018-10-07] MEDS: INSULIN REGULAR, HUMAN 100 UNIT in SOD CHLORIDE 0.9% 100 ML IV SCH ×4 (09:47→23:30)
[2018-10-07] MEDS ORDERED: VANCOMYCIN 1 GM (PMX) 250 ML IVPB ONE (10:00)
[2018-10-07] MEDS ORDERED: LORAZEPAM 2 MG INJ ONE (10:25)
[2018-10-07] MEDS: NS + KCL 30 MEQ 1,000 ML IV SCH ×2 (15:53→21:05)
[2018-10-07] MEDS ORDERED: NACL 0.9% 3 ML SYG IV SCH (16:30)
[2018-10-07] MEDS ORDERED: ACETAMINOPHEN 325 MG TAB PO PRN (16:30)
[2018-10-07] MEDS ORDERED: HYDROCODONE/APAP (5/325) TAB PO PRN (16:30)
[2018-10-07] MEDS ORDERED: morphine 2 MG INJ IV PRN (16:30)
[2018-10-07] MEDS ORDERED: ONDANSETRON 4 MG INJ IV PRN (16:30)
--- NOTE | 2018-10-07 17:18 | HP ---
Date/Time of Note Date/Time of Note DATE: 10/07/18 TIME: 17:13 Assessment/Plan VTE Prophylaxis Pharmacological prophylaxis: LMWH Assessment/Plan Hospital Course 1. Type 1 diabetes with DKA DKA protocol with insulin drip Admit to ICU 2. Persistent cough likely secondary to COPD Patient with persistent cough on previous hospitalization June of this year with negative pertussis Patient continues to smoke and may be the etiology of her cough Phenergan with codeine Breathing treatments 3. Leukocytosis likely reactive Follow-up on UA Indication when to box at this time 4. History of coronary disease Continue cardiac meds 5. Hypertension Continue home meds Prophylaxis: Lovenox Result Diagram: 10/07/18 0801 10/07/18 1454 Results 24hrs Laboratory Tests Test 10/07/18 07:41 10/07/18 07:56 10/07/18 08:01 10/07/18 09:16 Bedside Glucose > 595 *H > 595 *H Blood Gas Blood arterial Specimen Source Arterial Blood 10/07/2018 7:50: Date Drawn 15 AM Arterial Blood 7.347 L pH (Temp corrected ) Arterial Blood 18.0 L pCO2 (Temp correct) Arterial Blood 97.7 pO2 (Temp corrected ) Arterial Blood 9.6 *L HCO3 Arterial Blood -13.8 L Base Excess Arterial Blood 96.7 Oxygen Saturati on Miguel Test ACCEPTAB Arterial Blood Left Radial Gas Puncture Site Arterial 0.8 Blood Carboxyhe moglobin Arterial Blood 0.1 Methemoglobin Blood Gas A-a 30.5 H O2 Differential Oxyhemoglobin 95.8 Percent Blood Gas 37.0 Temperature Blood Gas ROOM AIR Modality FiO2 21.[address] GRULLON Critical Value Read Back Blood Gas TM Notified Whom Blood Gas 10/07/2018 8:13: Notified Time 08 AM White Blood 21.0 #H Count Red Blood Count 4.01 L Hemoglobin 10.6 L Hematocrit 35.7 L Mean 89.0 Corpuscular Volume Mean 26.4 L Corpuscular Hemoglobin Mean 29.7 L Corpuscular Hemoglobin Conc ent Red Cell 13.5 Distribution Width Platelet Count 530 #H Mean Platelet 9.9 Volume Immature 1.300 H Granulocytes % Neutrophils % Segmented 92 H Neutrophils % (Manual) Lymphocytes % Lymphocytes % 2 L (Manual) Monocytes % Monocytes % 6 (Manual) Eosinophils % Basophils % Nucleated Red 0.1 H Blood Cells % Immature 0.280 H Granulocytes # Neutrophils # Lymphocytes 0.4 L (Manual) Lymphocytes # Monocytes # Monocytes # 1.2 H (Manual) Eosinophils # Basophils # Nucleated Red Blood Cells # Platelet INCREASED Estimate Giant Platelets 1 H Platelet @See below Morphology Comment Polychromasia 3+ Anisocytosis 1+ Microcytosis 1+ Prothrombin 13.0 Time Prothrombin 1.0 Time Ratio INR 0.97 International Normalized Rati o Activated 25.2 Partial Thrombo plast Time Sodium Level 138 Potassium Level 6.0 H Chloride Level 94 L Carbon Dioxide 10 L Level Anion Gap 34 H Blood Urea 46 H Nitrogen Creatinine 1.42 H Est Glomerular 38 L Filtrat Rate mL/min Glucose Level 678 *H Hemoglobin A1c 10.3 H Lactic Acid 4.7 *H Level Calcium Level 9.8 Phosphorus 8.2 H Level Magnesium Level 2.7 H Total Bilirubin 0.9 Direct 0.00 Bilirubin Indirect 0.9 Bilirubin Aspartate Amino 37 Transf (AST/SGO T) Alanine 29 Aminotransferas e (ALT/SGPT) Alkaline 200 H Phosphatase Troponin I < 0.012 Total Protein 7.6 Albumin 4.8 Globulin 2.80 Albumin/Globuli 1.71 n Ratio Test 10/07/18 10:14 10/07/18 10:37 10/07/18 11:05 10/07/18 11:18 Blood Gas Blood venous Specimen Source Arterial Blood 10/07/2018 10:55 Date Drawn :01 AM Arterial Blood VENOUS LINE Gas Puncture Site Miguel Test N/A Venous Blood pH 7.142 *L Venous Blood 25.2 L pCO2 (Temp Corrected ) Venous Blood 52.3 H pO2 (Temp Corrected ) Venous Blood 8.4 L HCO3 Venous Blood 73.8 Oxygen Saturation Venous Blood -19.0 L Base Excess Venous Blood 10.5 Total Hemoglobin Venous Blood 73.1 Oxyhemoglobin Venous Blood 0.2 Methemoglobin Carboxyhemoglob 0.7 in Blood Gas 37.0 Temperature Blood Gas ROOM AIR Modality FiO2 21.[address] GRULLON Critical Value Read Back Blood Gas Sylvain Notified Whom Blood Gas 10/07/2018 11:03 Notified Time :18 AM Bedside Glucose > 595 *H > 595 *H Sodium Level 142 Potassium Level 4.3 Chloride Level 103 Carbon Dioxide 9 *L Level Anion Gap 30 H Blood Urea 44 H Nitrogen Creatinine 1.34 H Est Glomerular 41 L Filtrat Rate mL/min Glucose Level 593 *H Calcium Level 10.4 H Phosphorus 7.6 H Level Magnesium Level 2.6 H Test 10/07/18 12:15 10/07/18 12:37 10/07/18 13:22 10/07/18 14:16 Bedside Glucose 553 *H 523 *H 519 *H Sodium Level 141 Potassium Level 4.0 Chloride Level 104 Carbon Dioxide 11 L Level Anion Gap 26 H Blood Urea 44 H Nitrogen Creatinine 1.32 H Est Glomerular 41 L Filtrat Rate mL/min Glucose Level 528 *H Lactic Acid 6.7 *H Level Calcium Level 9.5 Phosphorus 6.3 H Level Magnesium Level 2.6 H Test 10/07/18 14:54 10/07/18 15:30 10/07/18 16:14 10/07/18 16:52 Sodium Level 145 H Potassium Level 3.3 L Chloride Level 111 H Carbon Dioxide 20 L Level Anion Gap 14 #H Blood Urea 41 H Nitrogen Creatinine 1.04 H Est Glomerular 55 L Filtrat Rate mL/min Glucose Level 442 *H Calcium Level 8.6 Phosphorus 3.1 # Level Magnesium Level 2.3 Bedside Glucose 490 *H 422 *H Blood Gas Blood venous Specimen Source Arterial Blood 10/07/2018 4:34 Date Drawn :35 PM Arterial Blood VENOUS LINE Gas Puncture Site Miguel Test N/A Venous Blood pH 7.371 Venous Blood 39.6 pCO2 (Temp Corrected ) Venous Blood 34.0 H pO2 (Temp Corrected ) Venous Blood 22.4 HCO3 Venous Blood 63.5 Oxygen Saturation Venous Blood -2.6 Base Excess Venous Blood 9.0 Total Hemoglobin Venous Blood 63.2 Oxyhemoglobin Venous Blood 0.1 Methemoglobin Blood Gas A-a 118.9 O2 Differential Carboxyhemoglob 0.3 in Blood Gas 37.0 Temperature Blood Gas 25 Actual Respiration Rat e Blood Gas NASAL CANNULA Modality FiO2 28.0 Blood Gas M.D. Notified Whom Blood Gas 10/07/2018 4:44 Notified Time :30 PM HPI/ROS Admit Date/Time Admit Date/Time Oct 07, 2018 at 09:53 Hx of Present Illness Patient is a 58-year-old female with a history of type 1 diabetes with DKA, COPD with persistent cough and persistent tobacco abuse with negative pertussis serology in the past, coronary disease status post bypass, hypothyroidism and some dyslipidemia. The patient presents with hyperglycemia and DKA has been started on DKA protocol. Patient is a poor historian history is obtained from previous documentation. ROS Poor historian PMH/Family/Social Past Medical History As per HPI Medications Current Medications Potassium Chloride/Sodium Chloride 1,000 ml @ 0 mls/hr Q0M IV ; Start 10/07/18 at 08:14 Potassium Chloride/Dextrose/ Sod Cl 1,000 ml @ 0 mls/hr Q0M IV ; Start 10/07/18 at 08:14 Potassium Chloride/Sodium Chloride 1,000 ml @ 0 mls/hr Q0M IV Last administered on 10/07/18at 15:53; Admin Dose 200 MLS/HR; Start 10/07/18 at 08:14 Potassium Chloride/Dextrose/ Sod Cl 1,000 ml @ 0 mls/hr Q0M IV Last administered on 10/07/18at 12:39; Admin Dose 250 MLS/HR; Start 10/07/18 at 08:14 Sodium Chloride 1,000 ml @ 0 mls/hr Q0M IV ; Start 10/07/18 at 08:14 Dextrose/Sodium Chloride 1,000 ml @ 0 mls/hr Q0M IV ; Start 10/07/18 at 08:14 Insulin Human Regular 100 unit/ Sodium Chloride 101 ml @ 6.06 mls/hr ER DKA PROTOCOL IV Last administered on 10/07/18at 09:47; Admin Dose 6 MLS/HR; Start 10/07/18 at 08:30 Miscellaneous Information (* Miscellaneous Pharmacy Order) HYPOGLYCEMIA TREATMENT HYPOGLYCEM PROTOCOL PRN XX .HYPOGLYCEMIA PROTOCOL; Start 10/07/18 at 08:30 Dextrose (D50w Syringe) 50 ml Q15M PRN IV .DECREASED GLUCOSE; Start 10/07/18 at 08:30 Dextrose (D50w Syringe) 25 ml Q15M PRN IV .DECREASED GLUCOSE; Start 10/07/18 at 08:30 IV Flush (NS 10 ml) 10 ml PRN PRN IV IV PROTOCOL; Start 10/07/18 at 16:00 Amitriptyline HCl (Elavil) 10 mg QHS PO ; Start 10/07/18 at 21:00 Aspirin (Halfprin) 81 mg DAILY PO ; Start 10/08/18 at 09:00 Atorvastatin Calcium (Lipitor) 20 mg QHS PO ; Start 10/07/18 at 21:00 Diltiazem HCl (Cardizem Sr) 60 mg Q12 PO ; Start 10/07/18 at 21:00 Furosemide (Lasix) 40 mg DAILY PO ; Start 10/08/18 at 09:00 Levothyroxine Sodium (Synthroid) 112 mcg BEFORE BREAKFAST PO ; Start 10/08/18 at 07:00 Losartan Potassium (Cozaar) 25 mg DAILY PO ; Start 10/08/18 at 09:00 Metoprolol Tartrate (Lopressor) 25 mg BID PO ; Start 10/07/18 at 21:00 Ticagrelor (Brilinta) 90 mg Q12 PO ; Start 10/07/18 at 21:00 IV Flush (NS 3 ml) 3 ml PER PROTOCOL IV ; Start 10/07/18 at 16:30 Ondansetron HCl (Zofran Inj) 4 mg Q6H PRN IV NAUSEA/VOMITING; Start 10/07/18 at 16:30 Acetaminophen (Tylenol Tab) 650 mg Q6H PRN PO .PAIN 1-3 OR TEMP; Start 10/07/18 at 16:30 Acetaminophen/ Hydrocodone Bitart (Jasper (5/325)) 1 tab Q6H PRN PO .MOD PAIN 4- 6; Start 10/07/18 at 16:30 Morphine Sulfate (morphine) 2 mg Q4H PRN IV .SEVERE PAIN 7-10; Start 10/07/18 at 16:30 Enoxaparin Sodium (Lovenox) 40 mg DAILY SC ; Start 10/08/18 at 09:00 Coded Allergies: ibuprofen (Verified Allergy, Mild, VOMITING,DIZZINESS, 10/07/18) Fish Containing Products (Verified Allergy, Unknown, 10/07/18) Past Surgical History Past Surgical Hx: angioplasty, coronary bypass surgery, other Family History Significant Family History: cancer Social History Alcohol Use: rarely Smoking Status: Current every day smoker Drug Use: none Exam/Review of Systems Vital Signs Vitals Vital Signs Date Temp Pulse Resp B/P (MAP) Pulse Ox O2 O2 Flow FiO2 Time Delivery Rate 10/07/18 95 16:00 10/07/18 98.3 20 92/40 (57) 98 Nasal 14:00 Cannula 10/07/18 2.0 13:00 10/07/18 21 08:28 Exam Constitutional: alert Respiratory: clear to auscultation Cardiovascular: regular rate and rhythm Gastrointestinal: soft; No distended Musculoskeletal: nl extremities to inspection AILEEN SHAVER Oct 07, 2018 17:18
[2018-10-07] MEDS: DILTIAZEM (SR) 60 MG CAP PO SCH (21:00)
[2018-10-07] MEDS: TICAGRELOR 90 MG TABLET PO SCH (21:00)
[2018-10-07] MEDS: AMITRIPTYLINE 10 MG TAB PO SCH (21:00)
[2018-10-07] MEDS: ATORVASTATIN 20 MG TAB PO SCH (21:00)
[2018-10-07] MEDS: METOPROLOL 25 MG TAB PO SCH (21:00)
[2018-10-07] MEDS ORDERED: INSULIN GLARGINE [LANTus] (100 UNITS/ML) SYG SC ONE (23:30)
[2018-10-08] VITALS (23 sets, daily range): BP systolic 58–125; BP diastolic 31–98; PULSE 74–100; RESP 14–29
[2018-10-08] MEDS ORDERED: GLUCAGON 1 MG INJ IM PRN (03:00)
[2018-10-08] MEDS ORDERED: GLUCOSE GEL 15 GRAM TUBE BUCCAL PRN (03:00)
[2018-10-08] MEDS ORDERED: GLUCOSE GEL 15 GRAM TUBE PO PRN ×2 (03:00)
[2018-10-08] MEDS ORDERED: DEXTROSE 50% 50 ML SYRINGE IV PRN ×2 (03:00)
[2018-10-08] MEDS: LEVOTHYROXINE 112 MCG TAB PO SCH (06:22)
[2018-10-08] MEDS: INSULIN ASPART [NOVOLOG] 3 ML PEN SC SCH ×7 (08:10→21:00)
[2018-10-08] MEDS: FUROSEMIDE 40 MG TAB PO SCH (09:37)
[2018-10-08] MEDS: DILTIAZEM (SR) 60 MG CAP PO SCH ×2 (09:37→21:00)
[2018-10-08] MEDS: ASPIRIN (EC) 81 MG TAB PO SCH (09:38)
[2018-10-08] MEDS: LOSARTAN 25 MG TAB PO SCH (09:38)
[2018-10-08] MEDS: METOPROLOL 25 MG TAB PO SCH ×2 (09:38→21:00)
[2018-10-08] MEDS: TICAGRELOR 90 MG TABLET PO SCH ×2 (09:39→22:05)
[2018-10-08] MEDS: ENOXAPARIN 40 MG/0.4 ML SYG SC SCH (09:39)
[2018-10-08] MEDS ORDERED: SOD CHLORIDE 0.45% 1,000 ML IV SCH (10:30)
[2018-10-08] MEDS ORDERED: ALBUTEROL/IPRATROPIUM (NEB) 3 ML AMP HHN PRN (12:00)
[2018-10-08] MEDS: INSULIN GLARGINE [LANTus] (100 UNITS/ML) SYG SC SCH (12:42)
--- NOTE | 2018-10-08 14:15 | CONS ---
DATE OF ADMISSION: 10/07/2018 DATE OF CONSULTATION: 10/08/2018 TYPE OF CONSULTATION: Nephrology. REASON FOR CONSULTATION: Hyponatremia. PHYSICIAN REQUESTING CONSULT: Quynh Vaughan MD HISTORY OF PRESENT ILLNESS: This is a 58-year-old female with a past medical history of diabetes typ e 1, history of COPD, history of tobacco use, who presents to [facility] with hyper glycemia. The patient states over the past several days she was noted to have markedly elevated suga rs. As a result, patient came to the Emergency Room, as she was not feeling well. Upon arrival, te arguelles was noted to be in diabetic ketoacidosis and initiated on DKA protocol, placed on insulin drip a nd admitted to intensive care unit for evaluation. In terms of patient's renal history, the patient had a normal baseline creatinine in the past ranging between 0.7-0.8 mg/dL. On admission, patient was noted to be normonatremic with sodium level of 13 0 mEq per liter. The patient's sodium levels increased to 150 mEq per liter. During this time, the patient was noted to have polyuria with urinary output approximately 300 mL. The patient does admit to having polyuria prior to admission. PAST MEDICAL HISTORY: History of diabetes, history of hypertension, history of coronary artery disea se, history of hypothyroidism, history of dyslipidemia, history of chronic obstructive pulmonary dise ase. PAST SURGICAL HISTORY: Status post bypass, status post angioplasty. FAMILY HISTORY: No family history of kidney disease. SOCIAL HISTORY: Positive tobacco use. ALLERGIES: Have been reviewed, please see list. MEDICATIONS: Have been reviewed. REVIEW OF SYSTEMS: A 14-point review of systems was conducted. Pertinent positives stated in HPI, o therwise negative. PHYSICAL EXAMINATION: VITAL SIGNS: Blood pressure is 118/48, respirations 29, pulse 83, temperature 99.3. HEENT: Head is normocephalic. NECK: Supple. HEART: Regular rate. LUNGS: Show diminished breath sounds at base. ABDOMEN: Soft, nontender to palpation without rebound or guarding. EXTREMITIES: Negative for clubbing, cyanosis, no edema. DERMATOLOGIC: No rashes. MUSCULOSKELETAL: No joint effusion. NEUROLOGIC: No focal deficits. MEDICATIONS: Have been reviewed. LABORATORY DATA: Has been reviewed. ASSESSMENT AND PLAN: This is a 58-year-old female who presents with: 1. Acute hypernatremia, etiology is likely multifactorial secondary to insensible losses, decreased free water intake, urinary free water loss due to osmotic diuresis from hyperglycemia. Lower suspici on for diabetes insipidus. Plan is to do a full evaluation. We will check a urine osmolarity. Will encourage free water intake. Continue patient on hypotonic IV fluids. We will monitor serial sodiu m levels closely to ensure correction of no more than 10 to 12 mEq in a 24-hour period. 2. Diabetes type 1 with DKA. The patient is of DKA protocol. Continue current insulin regimen. Gl ucose levels have improved. 3. Chronic obstructive pulmonary disease exacerbation. Continue medical management. Continue nebul izers. 4. History of coronary artery disease. Continue current treatment plan. 5. Hypertension. Continue current blood pressure regimen. 6. Anemia. Continue to monitor hemoglobin and hematocrit levels. Will check an iron panel. 7. Systemic inflammatory response syndrome. Continue to monitor. Thank you, Dr. Vaughan, for this interesting consult. It will be a pleasure to follow patient with y elizabeth throughout the hospital course. Dictated By: DAHLIA OLIVIER DO NR/NTS Conf#: [id number] DID#: [id number] CC: AILEEN VAUGHAN MD;*EndCC*
--- NOTE | 2018-10-08 14:41 | CONS ---
DATE OF ADMISSION: 10/07/2018 DATE OF CONSULTATION: 10/08/2018 TYPE OF CONSULTATION: Cardiology. REASON FOR CONSULTATION: Coronary artery disease, hypertension. REQUESTING PHYSICIAN: Aileen Vaughan MD, from the hospitalist service. HISTORY OF PRESENT ILLNESS: Ms. Castaneda is a 58-year-old female well known to myself as a primary of fice patient and multiple hospital admissions with a history of prior PTCA and stent placement, most recently in right coronary artery on 08/2016 and coronary artery bypass graft surgery in 01/2017, hyp ertension, dyslipidemia, diabetes mellitus with recurrent episodes of DKA, COPD, cardiomyopathy with mildly depressed left ventricular ejection fraction last EF approximately 40% by echo in 06/2018, who presented with uncontrolled blood sugars and per patient, she has not been taking her medications as she was feeling too sick to getting off the couch including insulin. The patient denies shortness o f breath, chest pain at that time. Upon arrival, temperature was 98.8, blood pressure 126/58, pulse 105, respiratory rate 18, satting 94%. The patient's labs revealed a white blood cell count of 21, h emoglobin 10.6, platelet count 530, sodium 138, potassium of 6, creatinine 1.42, BUN 46, glucose of 6 78, T-bilirubin of 0.9, AST 37, ALT 29, troponin negative, INR 0.9, UA borderline. The patient under went a chest x-ray revealing elevated left diaphragm, left basilar atelectasis. The patient's electr ocardiogram is not in chart for my review. By telemetry, the patient has been in sinus rhythm, occas ional PACs. The patient is admitted to the ICU where she required an insulin drip which has now been turned off with most recent blood sugar in the computer monitor was 304. PAST MEDICAL HISTORY: As above in HPI. MEDICATIONS CURRENTLY IN HOSPITAL: 1. DuoNeb. 2. Lantus. 3. Aspirin 81 mg daily. 4. Lasix 40 mg daily. 5. Cozaar 25 mg daily. 6. Lovenox 40 mg subcutaneous daily. 7. Insulin. 8. Lipitor 20 mg at bedtime. 9. Diltiazem 60 mg q.12. 10. Metoprolol 25 mg b.i.d. 11. Brilinta 90 mg q.12. 12. Phenergan. 13. Clayton p.r.n. 14. Morphine p.r.n. ALLERGIES: IBUPROFEN. SOCIAL HISTORY: Positive tobacco. Social EtOH. No illicit drug use. FAMILY HISTORY: No history of sudden cardiac or early CAD. REVIEW OF SYSTEMS: As above in HPI. CONSTITUTIONAL: No fevers, chills. PULMONARY: Positive cough, positive shortness of breath, COPD. CARDIOVASCULAR: Chest pain with cough, history of stent, history of CABG. GASTROINTESTINAL: No vomiting. GENITOURINARY: Improved renal failure. PSYCHIATRIC: No documented psych history. NEUROLOGIC: No documented history of CVA. ENDOCRINE: Diabetes mellitus. PHYSICAL EXAMINATION: VITAL SIGNS: Temperature of 99, blood pressure most recently is 118/48, pulse 83, respiratory rate 1 8, satting 95% on room air. GENERAL: The patient is alert, awake, coughing, shortness of breath. NECK: JVP is approximately 8 to 9 cm of water. CHEST: Mild expiratory wheeze, mild decreased breath sounds throughout. HEART: Regular rate and rhythm. Normal S1, increased S2, I/ systolic murmur, nondisplaced PMI. ABDOMEN: Positive bowel sounds, soft. EXTREMITIES: No significant pitting edema, 1+ pulses bilateral posterior tibial. LABORATORIES: Most recently from today, sodium 150, potassium 3.6, creatinine 0.7, BUN 24. Hemoglob in A1c of 10.4. Glucose 304. White blood cell count 12.7, hemoglobin 7.7, platelet count 342, MCV o f 86.9. IMAGING STUDIES: As above in HPI. No further imaging studies for my review at this time. ELECTROCARDIOGRAM: No electrocardiograms for my review at this time. IMPRESSION: 1. Hypertension, reasonable control. 2. Abnormal electrocardiogram, assess for acute coronary syndrome. 3. History of coronary artery disease, status post PTCA and stent placement artery to right coronary artery in 08/29/2018 with only chest pain with cough at this time. 4. History of coronary artery bypass graft surgery in 01/2017. 5. Diabetic ketoacidosis. 6. Chronic obstructive pulmonary disease with ongoing cough. 7. Possible additional upper respiratory infection. 8. Hypothyroidism. 9. Dyslipidemia. RECOMMENDATIONS: 1. At this time, we would maintain the patient on close monitoring in ICU versus telemetry. 2. We would continue to follow the patient's blood sugars closely. 3. Continue the patient's baseline antihypertensives with losartan and diltiazem as well as metoprol ol with well controlled heart rate and blood pressure. 4. Continue the patient's dual antiplatelet therapy with aspirin and Brilinta for stent patency and prevention of cardiovascular events. 5. Discontinue the patient's Cozaar afterload reduction and patient's gentle Lasix diuresis, followi ng strict I's and O's to grade diuresis closely. We will check a BNP to further assess the patient's current volume status. 6. We would continue the patient's bronchodilators and we would consider checking sputum cultures an d consider antibiotic therapy as necessary. Thank you for allowing me to take part in the care of this patient. I will continue to follow her ve ry closely with you with further recommendations to be made as the [facility] Dictated By: RHONDA EMERSON/MORIS Conf#: [id number] DID#: [id number] CC: AILEEN VAUGHAN MD;*End*
--- NOTE | 2018-10-08 15:46 | PN ---
Date/Time of Note Date/Time of Note DATE: 10/08/18 TIME: 15:44 Assessment/Plan VTE Prophylaxis Risk score (from Ns)>0 risk: 4 SCD applied (from Ns): Yes Pharmacological prophylaxis: LMWH Assessment/Plan Hospital Course 1. Type 1 diabetes with DKA Status post DKA protocol Transition to subcu insulin Downgrade 2. Persistent cough likely secondary to COPD Patient with persistent cough on previous hospitalization June of this year with negative pertussis Patient continues to smoke and may be the etiology of her cough Phenergan with codeine Breathing treatments 3. Leukocytosis likely reactive UA is negative for infection No indication for antibiotics 4. History of coronary disease Continue cardiac meds 5. Hypertension Continue home meds Prophylaxis: Lovenox DC planning: Downgrade today, anticipate DC home tomorrow Result Diagram: 10/08/18 0430 10/08/18 0430 Results 24hrs Laboratory Tests Test 10/07/18 16:00 10/07/18 16:14 10/07/18 16:52 10/07/18 17:55 Urine Color STRAW Urine Clarity CLEAR Urine pH 5.0 Urine Specific 1.016 [place] Urine Ketones 1+ H Urine Nitrite NEGATIVE Urine Bilirubin NEGATIVE Urine NEGATIVE Urobilinogen Urine Leukocyte NEGATIVE Esterase Urine 4 Microscopic RBC Urine 4 Microscopic WBC Urine Bacteria FEW A Urine 2+ H Hemoglobin Urine Glucose 3+ H Urine Total NEGATIVE Protein Blood Gas Blood venous Specimen Source Arterial Blood 10/07/2018 4:34: Date Drawn 35 PM Arterial Blood VENOUS LINE Gas Puncture Site Miguel Test N/A Venous Blood pH 7.371 Venous Blood 39.6 pCO2 (Temp Corrected ) Venous Blood 34.0 H pO2 (Temp Corrected ) Venous Blood 22.4 HCO3 Venous Blood 63.5 Oxygen Saturation Venous Blood -2.6 Base Excess Venous Blood 9.0 Total Hemoglobin Venous Blood 63.2 Oxyhemoglobin Venous Blood 0.1 Methemoglobin Blood Gas A-a 118.9 O2 Differential Carboxyhemoglob 0.3 in Blood Gas 37.0 Temperature Blood Gas 25 Actual Respiration Rat e Blood Gas NASAL CANNULA Modality FiO2 28.0 Blood Gas M.D. Notified Whom Blood Gas 10/07/2018 4:44: Notified Time 30 PM Bedside Glucose 422 *H 397 H Test 10/07/18 19:07 10/07/18 19:56 10/07/18 20:14 10/07/18 21:08 Bedside Glucose 368 H 334 H 313 H Sodium Level 147 H Potassium Level 3.3 L Chloride Level 116 H Carbon Dioxide 24 Level Anion Gap 7 Blood Urea 33 H Nitrogen Creatinine 0.79 Est Glomerular > 60 Filtrat Rate mL/min Glucose Level 272 #H Calcium Level 8.1 L Phosphorus 1.8 #L Level Magnesium Level 2.3 Blood Gas Blood venous Specimen Source Arterial Blood 10/07/2018 9:00: Date Drawn 44 PM Arterial Blood VENOUS LINE Gas Puncture Site Miguel Test N/A Venous Blood pH 7.426 Venous Blood 40.4 pCO2 (Temp Corrected ) Venous Blood 40.0 H pO2 (Temp Corrected ) Venous Blood 26.0 HCO3 Venous Blood 74.4 Oxygen Saturation Venous Blood 1.5 Base Excess Venous Blood 8.4 Total Hemoglobin Venous Blood 74.0 Oxyhemoglobin Venous Blood 0.4 Methemoglobin Carboxyhemoglob 0.1 in Blood Gas 37.0 Temperature Blood Gas 18 Actual Respiration Rat e Blood Gas ROOM AIR Modality FiO2 21.0 Blood Gas Notified Whom Blood Gas 10/07/2018 9:08: Notified Time 18 PM Test 10/07/18 22:13 10/07/18 23:09 10/08/18 00:01 10/08/18 00:14 Bedside Glucose 224 H 152 119 Blood Gas Blood venous Specimen Source Arterial Blood 10/08/2018 12:2 Date Drawn 0:24 AM Arterial Blood VENOUS LINE Gas Puncture Site Miguel Test N/A Venous Blood pH 7.453 H Venous Blood 38.8 pCO2 (Temp Corrected ) Venous Blood 39.5 H pO2 (Temp Corrected ) Venous Blood 26.5 HCO3 Venous Blood 75.0 Oxygen Saturation Venous Blood 2.5 Base Excess Venous Blood 8.6 Total Hemoglobin Venous Blood 74.6 Oxyhemoglobin Venous Blood 0.3 Methemoglobin Carboxyhemoglob 0.2 in Blood Gas 37.0 Temperature Blood Gas 20 Actual Respiration Rat e Blood Gas ROOM AIR Modality FiO2 21.0 Blood Gas D [facility] Notified Whom Blood Gas 10/08/2018 12:2 Notified Time 5:01 AM Test 10/08/18 00:24 10/08/18 01:23 10/08/18 02:00 10/08/18 02:13 Sodium Level 148 H Potassium Level 3.4 L Chloride Level 120 H Carbon Dioxide 25 Level Anion Gap 3 L Blood Urea 28 H Nitrogen Creatinine 0.68 Est Glomerular > 60 Filtrat Rate mL/min Glucose Level 67 #L Calcium Level 8.3 L Phosphorus 1.4 L Level Magnesium Level 2.3 Bedside Glucose 51 L 110 108 Test 10/08/18 03:00 10/08/18 03:04 10/08/18 03:54 10/08/18 04:30 Urine 801 Osmolality Urine Random 123.08 Creatinine Urine Random 30 Sodium Urine Total 25.0 H Protein Bedside Glucose 92 89 White Blood 12.7 #H Count Red Blood Count 2.91 #L Hemoglobin 7.7 #L Hematocrit 25.3 #L Mean 86.9 Corpuscular Volume Mean 26.5 L Corpuscular Hemoglobin Mean 30.4 L Corpuscular Hemoglobin Conc ent Red Cell 13.5 Distribution Width Platelet Count 342 # Mean Platelet 9.6 Volume Immature 0.500 H Granulocytes % Neutrophils % 84.5 H Lymphocytes % 6.6 L Monocytes % 7.8 Eosinophils % 0.3 Basophils % 0.3 Nucleated Red 0.0 Blood Cells % Immature 0.060 H Granulocytes # Neutrophils # 10.8 H Lymphocytes # 0.8 Monocytes # 1.0 H Eosinophils # 0.0 Basophils # 0.0 Nucleated Red 0.0 Blood Cells # Sodium Level 150 H Potassium Level 3.6 Chloride Level 120 H Carbon Dioxide 23 Level Anion Gap 7 Blood Urea 24 H Nitrogen Creatinine 0.71 Est Glomerular > 60 Filtrat Rate mL/min Glucose Level 83 Hemoglobin A1c 10.4 H Calcium Level 8.4 Phosphorus 2.6 Level Magnesium Level 2.3 Iron Level 12 L Total Iron 304 Binding Capacity Percent Iron 4 L Saturation Ferritin 14.7 Test 10/08/18 06:01 10/08/18 07:57 10/08/18 11:00 10/08/18 12:37 Bedside Glucose 95 158 304 H Urine Color YELLOW Urine Clarity CLEAR Urine pH 5.0 Urine Specific 1.015 [place] Urine Ketones 1+ H Urine Nitrite NEGATIVE Urine Bilirubin NEGATIVE Urine NEGATIVE Urobilinogen Urine Leukocyte NEGATIVE Esterase Urine 12 H Microscopic RBC Urine 3 Microscopic WBC Urine Bacteria FEW A Urine 2+ H Hemoglobin Urine Glucose 2+ H Urine Total NEGATIVE Protein Subjective 24 Hr Interval Summary Constitutional: no complaints Exam/Review of Systems Exam Vitals Vital Signs Date Temp Pulse Resp B/P (MAP) Pulse Ox O2 O2 Flow FiO2 Time Delivery Rate 10/08/18 78 24 94/61 (72) 96 Room Air 15:00 10/08/18 97.9 12:00 4/26/19 21 11:50 10/07/18 2.0 19:38 Intake and Output 10/07/18 10/07/18 10/08/18 1515:00 23:00 07:00 IntakeIntake Total 1381.0 ml 1875 ml 512 ml OutputOutput Total 2000 ml 700 ml 275 ml BalanceBalance -619.0 ml 1175 ml 237 ml Constitutional: alert Respiratory: clear to auscultation Cardiovascular: regular rate and rhythm Gastrointestinal: soft; No distended Musculoskeletal: nl extremities to inspection Results Results 24hrs Laboratory Tests Test 10/07/18 16:00 10/07/18 16:14 10/07/18 16:52 10/07/18 17:55 Urine Color STRAW Urine Clarity CLEAR Urine pH 5.0 Urine Specific 1.016 [place] Urine Ketones 1+ H Urine Nitrite NEGATIVE Urine Bilirubin NEGATIVE Urine NEGATIVE Urobilinogen Urine Leukocyte NEGATIVE Esterase Urine 4 Microscopic RBC Urine 4 Microscopic WBC Urine Bacteria FEW A Urine 2+ H Hemoglobin Urine Glucose 3+ H Urine Total NEGATIVE Protein Blood Gas Blood venous Specimen Source Arterial Blood 10/07/2018 4:34: Date Drawn 35 PM Arterial Blood VENOUS LINE Gas Puncture Site Miguel Test N/A Venous Blood pH 7.371 Venous Blood 39.6 pCO2 (Temp Corrected ) Venous Blood 34.0 H pO2 (Temp Corrected ) Venous Blood 22.4 HCO3 Venous Blood 63.5 Oxygen Saturation Venous Blood -2.6 Base Excess Venous Blood 9.0 Total Hemoglobin Venous Blood 63.2 Oxyhemoglobin Venous Blood 0.1 Methemoglobin Blood Gas A-a 118.9 O2 Differential Carboxyhemoglob 0.3 in Blood Gas 37.0 Temperature Blood Gas 25 Actual Respiration Rat e Blood Gas NASAL CANNULA Modality FiO2 28.0 Blood Gas M.D. Notified Whom Blood Gas 10/07/2018 4:44: Notified Time 30 PM Bedside Glucose 422 *H 397 H Test 10/07/18 19:07 10/07/18 19:56 10/07/18 20:14 10/07/18 21:08 Bedside Glucose 368 H 334 H 313 H Sodium Level 147 H Potassium Level 3.3 L Chloride Level 116 H Carbon Dioxide 24 Level Anion Gap 7 Blood Urea 33 H Nitrogen Creatinine 0.79 Est Glomerular > 60 Filtrat Rate mL/min Glucose Level 272 #H Calcium Level 8.1 L Phosphorus 1.8 #L Level Magnesium Level 2.3 Blood Gas Blood venous Specimen Source Arterial Blood 10/07/2018 9:00: Date Drawn 44 PM Arterial Blood VENOUS LINE Gas Puncture Site Miguel Test N/A Venous Blood pH 7.426 Venous Blood 40.4 pCO2 (Temp Corrected ) Venous Blood 40.0 H pO2 (Temp Corrected ) Venous Blood 26.0 HCO3 Venous Blood 74.4 Oxygen Saturation Venous Blood 1.5 Base Excess Venous Blood 8.4 Total Hemoglobin Venous Blood 74.0 Oxyhemoglobin Venous Blood 0.4 Methemoglobin Carboxyhemoglob 0.1 in Blood Gas 37.0 Temperature Blood Gas 18 Actual Respiration Rat e Blood Gas ROOM AIR Modality FiO2 21.0 Blood Gas Notified Whom Blood Gas 10/07/2018 9:08: Notified Time 18 PM Test 10/07/18 22:13 10/07/18 23:09 10/08/18 00:01 10/08/18 00:14 Bedside Glucose 224 H 152 119 Blood Gas Blood venous Specimen Source Arterial Blood 10/08/2018 12:2 Date Drawn 0:24 AM Arterial Blood VENOUS LINE Gas Puncture Site Miguel Test N/A Venous Blood pH 7.453 H Venous Blood 38.8 pCO2 (Temp Corrected ) Venous Blood 39.5 H pO2 (Temp Corrected ) Venous Blood 26.5 HCO3 Venous Blood 75.0 Oxygen Saturation Venous Blood 2.5 Base Excess Venous Blood 8.6 Total Hemoglobin Venous Blood 74.6 Oxyhemoglobin Venous Blood 0.3 Methemoglobin Carboxyhemoglob 0.2 in Blood Gas 37.0 Temperature Blood Gas 20 Actual Respiration Rat e Blood Gas ROOM AIR Modality FiO2 21.0 Blood Gas Snehal [facility] Notified Whom Blood Gas 10/08/2018 12:2 Notified Time 5:01 AM Test 10/08/18 00:24 10/08/18 01:23 10/08/18 02:00 10/08/18 02:13 Sodium Level 148 H Potassium Level 3.4 L Chloride Level 120 H Carbon Dioxide 25 Level Anion Gap 3 L Blood Urea 28 H Nitrogen Creatinine 0.68 Est Glomerular > 60 Filtrat Rate mL/min Glucose Level 67 #L Calcium Level 8.3 L Phosphorus 1.4 L Level Magnesium Level 2.3 Bedside Glucose 51 L 110 108 Test 10/08/18 03:00 10/08/18 03:04 10/08/18 03:54 10/08/18 04:30 Urine 801 Osmolality Urine Random 123.08 Creatinine Urine Random 30 Sodium Urine Total 25.0 H Protein Bedside Glucose 92 89 White Blood 12.7 #H Count Red Blood Count 2.91 #L Hemoglobin 7.7 #L Hematocrit 25.3 #L Mean 86.9 Corpuscular Volume Mean 26.5 L Corpuscular Hemoglobin Mean 30.4 L Corpuscular Hemoglobin Conc ent Red Cell 13.5 Distribution Width Platelet Count 342 # Mean Platelet 9.6 Volume Immature 0.500 H Granulocytes % Neutrophils % 84.5 H Lymphocytes % 6.6 L Monocytes % 7.8 Eosinophils % 0.3 Basophils % 0.3 Nucleated Red 0.0 Blood Cells % Immature 0.060 H Granulocytes # Neutrophils # 10.8 H Lymphocytes # 0.8 Monocytes # 1.0 H Eosinophils # 0.0 Basophils # 0.0 Nucleated Red 0.0 Blood Cells # Sodium Level 150 H Potassium Level 3.6 Chloride Level 120 H Carbon Dioxide 23 Level Anion Gap 7 Blood Urea 24 H Nitrogen Creatinine 0.71 Est Glomerular > 60 Filtrat Rate mL/min Glucose Level 83 Hemoglobin A1c 10.4 H Calcium Level 8.4 Phosphorus 2.6 Level Magnesium Level 2.3 Iron Level 12 L Total Iron 304 Binding Capacity Percent Iron 4 L Saturation Ferritin 14.7 Test 10/08/18 06:01 10/08/18 07:57 10/08/18 11:00 10/08/18 12:37 Bedside Glucose 95 158 304 H Urine Color YELLOW Urine Clarity CLEAR Urine pH 5.0 Urine Specific 1.015 [place] Urine Ketones 1+ H Urine Nitrite NEGATIVE Urine Bilirubin NEGATIVE Urine NEGATIVE Urobilinogen Urine Leukocyte NEGATIVE Esterase Urine 12 H Microscopic RBC Urine 3 Microscopic WBC Urine Bacteria FEW A Urine 2+ H Hemoglobin Urine Glucose 2+ H Urine Total NEGATIVE Protein Medications Medication Current Medications IV Flush (NS 10 ml) 10 ml PRN PRN IV IV PROTOCOL; Start 10/07/18 at 16:00 Amitriptyline HCl (Elavil) 10 mg QHS PO ; Start 10/07/18 at 21:00 Aspirin (Halfprin) 81 mg DAILY PO Last administered on 10/08/18at 09:38; Admin Dose 81 MG; Start 10/08/18 at 09:00 Atorvastatin Calcium (Lipitor) 20 mg QHS PO ; Start 10/07/18 at 21:00 Diltiazem HCl (Cardizem Sr) 60 mg Q12 PO Last administered on 10/08/18 09:37; Admin Dose 60 MG; Start 10/07/18 at 21:00 Furosemide (Lasix) 40 mg DAILY PO Last administered on 10/08/18 09:37; Admin Dose 40 MG; Start 10/08/18 at 09:00 Levothyroxine Sodium (Synthroid) 112 mcg BEFORE BREAKFAST PO ; Start 10/08/18 at 07:00 Losartan Potassium (Cozaar) 25 mg DAILY PO Last administered on 10/08/18 09:38; Admin Dose 25 MG; Start 10/08/18 at 09:00 Metoprolol Tartrate (Lopressor) 25 mg BID PO Last administered on 10/08/18 09:38; Admin Dose 25 MG; Start 10/07/18 at 21:00 Ticagrelor (Brilinta) 90 mg Q12 PO Last administered on 10/08/18 09:39; Admin Dose 90 MG; Start 10/07/18 at 21:00 IV Flush (NS 3 ml) 3 ml PER PROTOCOL IV ; Start 10/07/18 at 16:30 Ondansetron HCl (Zofran Inj) 4 mg Q6H PRN IV NAUSEA/VOMITING; Start 10/07/18 at 16:30 Acetaminophen (Tylenol Tab) 650 mg Q6H PRN PO .PAIN 1-3 OR TEMP; Start 10/07/18 at 16:30 Acetaminophen/ Hydrocodone Bitart (Leonidas (5/325)) 1 tab Q6H PRN PO .MOD PAIN 4- 6; Start 10/07/18 at 16:30 Morphine Sulfate (morphine) 2 mg Q4H PRN IV .SEVERE PAIN 7-10; Start 10/07/18 at 16:30 Enoxaparin Sodium (Lovenox) 40 mg DAILY SC Last administered on 10/08/18 09:39; Admin Dose 40 MG; Start 10/08/18 at 09:00 Promethazine HCl/ Codeine (Phenergan/ Codeine) 5 ml Q4H PRN PO COUGH; Start 10/07/18 at 17:30 Insulin Aspart (Novolog Insulin Pen) NOVOLOG *MODERATE* ALGORITHM WITH MEALS BEDTIME SC Last administered on 10/08/18at 12:41; Admin Dose 10 UNIT; Start 10/08/18 at 07:35 Miscellaneous Information 1 ea NOTE XX ; Start 10/08/18 at 03:00 Glucose (Glutose) 15 gm Q15M PRN PO DECREASED GLUCOSE; Start 10/08/18 at 03:00 Glucose (Glutose) 22.5 gm Q15M PRN PO DECREASED GLUCOSE; Start 10/08/18 at 03:00 Dextrose (D50w Syringe) 25 ml Q15M PRN IV DECREASED GLUCOSE; Start 10/08/18 at 03:00 Dextrose (D50w Syringe) 50 ml Q15M PRN IV DECREASED GLUCOSE; Start 10/08/18 at 03:00 Glucagon (Glucagen) 1 mg Q15M PRN IM DECREASED GLUCOSE; Start 10/08/18 at 03:00 Glucose (Glutose) 15 gm Q15M PRN BUCCAL DECREASED GLUCOSE; Start 10/08/18 at 03:00 Sodium Chloride 1,000 ml @ 100 mls/hr Q10H IV Last administered on 10/08/18at 11:03; Admin Dose 100 MLS/HR; Start 10/08/18 at 10:30 Insulin Glargine (Lantus) 14 units DAILY@0800 SC Last administered on 10/08/18at 12:42; Admin Dose 14 UNITS; Start 10/08/18 at 11:30 Insulin Aspart (Novolog Insulin Pen) 7 unit WITH MEALS SC Last administered on 10/08/18at 12:42; Admin Dose 7 UNIT; Start 10/08/18 at 11:30 Albuterol/ Ipratropium (Duoneb) 3 ml Q4H RESP THERAPY HHN ; Start 10/08/18 at 17:00 AILEEN SHAVER Oct 08, 2018 15:46
[2018-10-08] MEDS: ALBUTEROL/IPRATROPIUM (NEB) 3 ML AMP HHN SCH ×2 (16:21→20:02)
[2018-10-08] MEDS ORDERED: POTASSIUM CHLORIDE (SR) 20 MEQ TAB PO STA (17:26)
[2018-10-08] MEDS ORDERED: POTASSIUM CHLORIDE 50 ML IVPB SCH (17:30)
[2018-10-08] MEDS ORDERED: POTASSIUM CHLORIDE 100 ML IVPB SCH (18:00)
[2018-10-08] MEDS: ATORVASTATIN 20 MG TAB PO SCH (21:53)
[2018-10-08] MEDS: AMITRIPTYLINE 10 MG TAB PO SCH (21:54)
[2018-10-08] MEDS: POTASSIUM CHLORIDE 40 MEQ in SOD CHLORIDE 0.9% 1,000 ML IV SCH (23:33)
[2018-10-09] VITALS (7 sets, daily range): BP systolic 83–125; BP diastolic 42–58; PULSE 86–102; RESP 17–20
[2018-10-09] MEDS: ALBUTEROL/IPRATROPIUM (NEB) 3 ML AMP HHN SCH ×7 (01:58→20:21)
[2018-10-09] MEDS: PROMETHAZINE/CODEINE 5ML CUP PO PRN ×4 (03:21→22:53)
[2018-10-09] MEDS: LEVOTHYROXINE 112 MCG TAB PO SCH (06:26)
[2018-10-09] MEDS: POTASSIUM CHLORIDE 40 MEQ in SOD CHLORIDE 0.9% 1,000 ML IV SCH (07:30)
[2018-10-09] MEDS: INSULIN ASPART [NOVOLOG] 3 ML PEN SC SCH ×7 (08:00→21:00)
[2018-10-09] MEDS: INSULIN GLARGINE [LANTus] (100 UNITS/ML) SYG SC SCH (08:01)
[2018-10-09] MEDS: TICAGRELOR 90 MG TABLET PO SCH ×2 (08:02→20:54)
[2018-10-09] MEDS: ENOXAPARIN 40 MG/0.4 ML SYG SC SCH (08:03)
[2018-10-09] MEDS: METOPROLOL 25 MG TAB PO SCH ×2 (08:04→22:51)
[2018-10-09] MEDS: FUROSEMIDE 40 MG TAB PO SCH (08:04)
[2018-10-09] MEDS: ASPIRIN (EC) 81 MG TAB PO SCH (08:04)
[2018-10-09] MEDS: LOSARTAN 25 MG TAB PO SCH (08:05)
[2018-10-09] MEDS: DILTIAZEM (SR) 60 MG CAP PO SCH ×2 (08:05→20:53)
[2018-10-09] MEDS ORDERED: NEUTRA-PHOS 250 MG PACKET PO ONE (09:00)
--- NOTE | 2018-10-09 09:54 | PN ---
DATE: 10/09/2018 SUBJECTIVE: The patient is stable, no events overnight. The patient was transferred from the intens [facility] care unit to telemetry. No other acute events noted overnight. No hemoptysis, hematemesis, or h ematochezia. OBJECTIVE: VITAL SIGNS: Blood pressure is 116/54, respirations 18, pulse 86, temperature 99.6. HEENT: Head is normocephalic. NECK: Supple. HEART: Regular rate. LUNGS: Show diminished breath sounds at the base. ABDOMEN: Soft, nontender to palpation. No rebound or guarding. EXTREMITIES: Negative for clubbing, cyanosis. No edema. DERMATOLOGIC: No rashes. MUSCULOSKELETAL: No joint effusion. NEUROLOGIC: No change in exam. MEDICATIONS: The patient's medications have been reviewed. LABORATORY DATA: Has been reviewed. ASSESSMENT AND PLAN: 1. Acute hypernatremia. Etiology is secondary to insensible losses, decreased free water intake. T he patient's sodium levels have improved with increasing free water intake and hypertonic fluid. Deejay n at this point is to discontinue intravenous fluids. We will continue to encourage free water intak e. We will continue current treatment plan, supportive care, and renally dose all medications. 2. Hypophosphatemia. Will replete with potassium phosphate. 3. Hypokalemia. Etiology is secondary to total volume deficit due to control diabetes. The patient is status post potassium chloride. Potassium levels have improved. Continue to monitor. 4. Diabetes type 1 with diabetic ketoacidosis. Continue current insulin regimen. 5. Chronic obstructive pulmonary disease exacerbation. Continue current medical management. 6. History of coronary artery disease. Continue current treatment plan. 7. Hypertension. Continue blood pressure regimen. 8. Anemia. Monitor hemoglobin and hematocrit levels. 9. Systemic inflammatory response syndrome. Continue to monitor. Dictated By: DAHLIA OLIVIER DO NR/NTS Conf#: [id number] DID#: [id number] CC: AILEEN SHAVER MD;*End*
--- NOTE | 2018-10-09 12:27 | PN ---
Date/Time of Note Date/Time of Note DATE: 10/09/18 TIME: 12:25 Assessment/Plan VTE Prophylaxis Risk score (from Ns)>0 risk: 4 SCD applied (from Ns): Yes Pharmacological prophylaxis: LMWH Assessment/Plan Hospital Course 1. Type 1 diabetes with DKA Status post DKA protocol Transition to subcu insulin but have increased both basal and mealtime insulin due to persistent hyperglycemia A1c 10.4 2. COPD exacerbation with persistent cough Patient with persistent cough on previous hospitalization June of this year with negative pertussis Patient continues to smoke and is the likely etiology of her cough Started Rocephin and azithromycin Phenergan with codeine Breathing treatments 3. Leukocytosis likely reactive UA is negative for infection Rocephin and azithromycin for COPD exacerbation 4. History of coronary disease Continue cardiac meds 5. Hypertension Continue home meds Prophylaxis: Lovenox DC planning: Anticipate DC home tomorrow Result Diagram: 10/09/1851810/09/18518 Results 24hrs Laboratory Tests Test 10/08/18 12:37 10/08/18 15:50 10/08/18 17:43 10/08/18 18:43 Bedside Glucose 304 H 102 Sodium Level 137 Potassium Level 2.3 *L Chloride Level 105 # Carbon Dioxide Level 25 Anion Gap 7 Blood Urea Nitrogen 15 # Creatinine 0.56 Est Glomerular > 60 Filtrat Rate mL/min Glucose Level 105 Calcium Level 7.9 L Creatine Kinase 95 Creatine Kinase 0.8 Index Creatinine Kinase MB 0.73 (Mass) Troponin I < 0.012 Test 10/08/18 21:49 10/09/18 00:21 10/09/18 05:19 10/09/18 07:54 Bedside Glucose 71 249 H Creatine Kinase 82 84 Creatine Kinase 0.5 0.4 Index Creatinine Kinase MB 0.43 0.35 (Mass) Troponin I < 0.012 < 0.012 White Blood Count 8.0 # Red Blood Count 2.90 L Hemoglobin 7.8 L Hematocrit 25.3 L Mean Corpuscular 87.2 Volume Mean Corpuscular 26.9 L Hemoglobin Mean Corpuscular 30.8 L Hemoglobin Concent Red Cell 13.4 Distribution Width Platelet Count 268 # Mean Platelet Volume 9.9 Immature 0.400 Granulocytes % Neutrophils % 71.1 Lymphocytes % 18.0 Monocytes % 7.8 Eosinophils % 2.1 Basophils % 0.6 Nucleated Red Blood 0.0 Cells % Immature 0.030 Granulocytes # Neutrophils # 5.7 Lymphocytes # 1.4 Monocytes # 0.6 Eosinophils # 0.2 Basophils # 0.1 Nucleated Red Blood 0.0 Cells # Sodium Level 141 Potassium Level 3.6 Chloride Level 108 Carbon Dioxide Level 28 Anion Gap 5 Blood Urea Nitrogen 13 Creatinine 0.59 Est Glomerular > 60 Filtrat Rate mL/min Glucose Level 138 Calcium Level 8.1 L Phosphorus Level 1.7 L Magnesium Level 1.9 Triglycerides Level 138 Cholesterol Level 120 LDL Cholesterol, 57 Calculated HDL Cholesterol 35 L Cholesterol/HDL 3.4 Ratio Test 10/09/18 12:04 Bedside Glucose 224 H Subjective 24 Hr Interval Summary Respiratory: cough Exam/Review of Systems Exam Vitals Vital Signs Date Temp Pulse Resp B/P (MAP) Pulse Ox O2 O2 Flow FiO2 Time Delivery Rate 10/09/18 76 20 97 21 09:46 10/09/18 99.6 116/54 07:54 (74) 10/08/18 Room Air 20:10 10/07/18 2.0 19:38 Intake and Output 10/08/18 10/08/18 10/09/18 1515:00 23:00 07:00 IntakeIntake Total 1650 ml 550 ml 550 ml OutputOutput Total 1725 ml 700 ml BalanceBalance -75 ml -150 ml 550 ml Constitutional: alert, oriented Respiratory: clear to auscultation Gastrointestinal: soft; No distended Musculoskeletal: nl extremities to inspection Results Results 24hrs Laboratory Tests Test 10/08/18 12:37 10/08/18 15:50 10/08/18 17:43 10/08/18 18:43 Bedside Glucose 304 H 102 Sodium Level 137 Potassium Level 2.3 *L Chloride Level 105 # Carbon Dioxide Level 25 Anion Gap 7 Blood Urea Nitrogen 15 # Creatinine 0.56 Est Glomerular > 60 Filtrat Rate mL/min Glucose Level 105 Calcium Level 7.9 L Creatine Kinase 95 Creatine Kinase 0.8 Index Creatinine Kinase MB 0.73 (Mass) Troponin I < 0.012 Test 10/08/18 21:49 10/09/18 00:21 10/09/18 05:19 10/09/18 07:54 Bedside Glucose 71 249 H Creatine Kinase 82 84 Creatine Kinase 0.5 0.4 Index Creatinine Kinase MB 0.43 0.35 (Mass) Troponin I < 0.012 < 0.012 White Blood Count 8.0 # Red Blood Count 2.90 L Hemoglobin 7.8 L Hematocrit 25.3 L Mean Corpuscular 87.2 Volume Mean Corpuscular 26.9 L Hemoglobin Mean Corpuscular 30.8 L Hemoglobin Concent Red Cell 13.4 Distribution Width Platelet Count 268 # Mean Platelet Volume 9.9 Immature 0.400 Granulocytes % Neutrophils % 71.1 Lymphocytes % 18.0 Monocytes % 7.8 Eosinophils % 2.1 Basophils % 0.6 Nucleated Red Blood 0.0 Cells % Immature 0.030 Granulocytes # Neutrophils # 5.7 Lymphocytes # 1.4 Monocytes # 0.6 Eosinophils # 0.2 Basophils # 0.1 Nucleated Red Blood 0.0 Cells # Sodium Level 141 Potassium Level 3.6 Chloride Level 108 Carbon Dioxide Level 28 Anion Gap 5 Blood Urea Nitrogen 13 Creatinine 0.59 Est Glomerular > 60 Filtrat Rate mL/min Glucose Level 138 Calcium Level 8.1 L Phosphorus Level 1.7 L Magnesium Level 1.9 Triglycerides Level 138 Cholesterol Level 120 LDL Cholesterol, 57 Calculated HDL Cholesterol 35 L Cholesterol/HDL 3.4 Ratio Test 10/09/18 12:04 Bedside Glucose 224 H Medications Medication Current Medications IV Flush (NS 10 ml) 10 ml PRN PRN IV IV PROTOCOL; Start 10/07/18 at 16:00 Amitriptyline HCl (Elavil) 10 mg QHS PO Last administered on 10/08/18 21:54; Admin Dose 10 MG; Start 10/07/18 at 21:00 Aspirin (Halfprin) 81 mg DAILY PO Last administered on 10/09/18 08:04; Admin Dose 81 MG; Start 10/08/18 at 09:00 Atorvastatin Calcium (Lipitor) 20 mg QHS PO Last administered on 10/08/18 21:53; Admin Dose 20 MG; Start 10/07/18 at 21:00 Furosemide (Lasix) 40 mg DAILY PO Last administered on 10/09/18 08:04; Admin Dose 40 MG; Start 10/08/18 at 09:00 Levothyroxine Sodium (Synthroid) 112 mcg BEFORE BREAKFAST PO Last administered on 10/09/18 06:26; Admin Dose 112 MCG; Start 10/08/18 at 07:00 Losartan Potassium (Cozaar) 25 mg DAILY PO Last administered on 10/09/18 08:05; Admin Dose 25 MG; Start 10/08/18 at 09:00 Ticagrelor (Brilinta) 90 mg Q12 PO Last administered on 10/09/18at 08:02; Admin Dose 90 MG; Start 10/07/18 at 21:00 IV Flush (NS 3 ml) 3 ml PER PROTOCOL IV ; Start 10/07/18 at 16:30 Ondansetron HCl (Zofran Inj) 4 mg Q6H PRN IV NAUSEA/VOMITING; Start 10/07/18 at 16:30 Acetaminophen (Tylenol Tab) 650 mg Q6H PRN PO .PAIN 1-3 OR TEMP; Start 10/07/18 at 16:30 Acetaminophen/ Hydrocodone Bitart ([place] (5/325)) 1 tab Q6H PRN PO .MOD PAIN 4- 6; Start 10/07/18 at 16:30 Morphine Sulfate (morphine) 2 mg Q4H PRN IV .SEVERE PAIN 7-10; Start 10/07/18 at 16:30 Enoxaparin Sodium (Lovenox) 40 mg DAILY SC Last administered on 10/09/18at 08:03; Admin Dose 40 MG; Start 10/08/18 at 09:00 Promethazine HCl/ Codeine (Phenergan/ Codeine) 5 ml Q4H PRN PO COUGH Last administered on 10/09/18at 11:59; Admin Dose 5 ML; Start 10/07/18 at 17:30 Insulin Aspart (Novolog Insulin Pen) NOVOLOG *MODERATE* ALGORITHM WITH MEALS BEDTIME SC Last administered on 10/09/18at 12:11; Admin Dose 6 UNIT; Start 10/08/18 at 07:35 Miscellaneous Information 1 ea NOTE XX ; Start 10/08/18 at 03:00 Glucose (Glutose) 15 gm Q15M PRN PO DECREASED GLUCOSE; Start 10/08/18 at 03:00 Glucose (Glutose) 22.5 gm Q15M PRN PO DECREASED GLUCOSE; Start 10/08/18 at 03:00 Dextrose (D50w Syringe) 25 ml Q15M PRN IV DECREASED GLUCOSE; Start 10/08/18 at 03:00 Dextrose (D50w Syringe) 50 ml Q15M PRN IV DECREASED GLUCOSE; Start 10/08/18 at 03:00 Glucagon (Glucagen) 1 mg Q15M PRN IM DECREASED GLUCOSE; Start 10/08/18 at 03:00 Glucose (Glutose) 15 gm Q15M PRN BUCCAL DECREASED GLUCOSE; Start 10/08/18 at 03:00 Insulin Glargine (Lantus) 14 units DAILY@0800 SC Last administered on 10/09/18 08:01; Admin Dose 14 UNITS; Start 10/08/18 at 11:30 Insulin Aspart (Novolog Insulin Pen) 7 unit WITH MEALS SC Last administered on 10/09/18 12:10; Admin Dose 7 UNIT; Start 10/08/18 at 11:30 Albuterol/ Ipratropium (Duoneb) 3 ml Q4H RESP THERAPY HHN Last administered on 10/09/18 09:46; Admin Dose 3 ML; Start 10/08/18 at 17:00 Diltiazem HCl (Cardizem Sr) 60 mg Q12 PO Last administered on 10/09/18 08:05; Admin Dose 60 MG; Start 10/08/18 at 21:00 Metoprolol Tartrate (Lopressor) 25 mg BID PO Last administered on 10/09/18 08:04; Admin Dose 25 MG; Start 10/08/18 at 21:00 AILEEN SHAVER Oct 09, 2018 12:27
[2018-10-09] MEDS ORDERED: POTASSIUM PHOSPHATE 40 MEQ in SOD CHLORIDE 0.9% 250 ML IVPB ONE (12:30)
[2018-10-09] MEDS: CEFTRIAXONE 1 GM/50 ML (PMX) 50 ML IVPB SCH (13:21)
[2018-10-09] MEDS: AZITHROMYCIN 500MG/NS (PMX) 250 ML IVPB SCH (14:14)
[2018-10-09] MEDS: AMITRIPTYLINE 10 MG TAB PO SCH (20:55)
[2018-10-09] MEDS: ATORVASTATIN 20 MG TAB PO SCH (20:55)
[2018-10-10] VITALS (11 sets, daily range): BP systolic 81–128; BP diastolic 39–72; PULSE 67–98; RESP 16–18
[2018-10-10] MEDS: ALBUTEROL/IPRATROPIUM (NEB) 3 ML AMP HHN SCH ×7 (01:00→21:00)
[2018-10-10] MEDS: LEVOTHYROXINE 112 MCG TAB PO SCH (05:56)
[2018-10-10] MEDS: INSULIN ASPART [NOVOLOG] 3 ML PEN SC SCH ×7 (08:10→21:00)
[2018-10-10] MEDS: INSULIN GLARGINE [LANTus] (100 UNITS/ML) SYG SC SCH (08:11)
--- NOTE | 2018-10-10 08:44 | PN ---
DATE: 10/10/2018 SUBJECTIVE: The patient is stable, no events overnight. No fevers, chills, nausea, or vomiting. OBJECTIVE: VITAL SIGNS: Blood pressure is 103/55, respirations 16, pulse 87, temperature 98.4. HEENT: Head is normocephalic. NECK: Supple. HEART: Regular rate. LUNGS: Show diminished breath sounds at the base. ABDOMEN: Soft, nontender to palpation without rebound or guarding. EXTREMITIES: Negative for clubbing, cyanosis, no edema. DERMATOLOGIC: No rashes. MUSCULOSKELETAL: No joint effusion. NEUROLOGIC: No change in exam. MEDICATIONS: Reviewed. LABORATORY DATA: Reviewed. ASSESSMENT AND PLAN: 1. Acute hypernatremia, resolved. Etiology is secondary insensible loss, decreased free water intak e. Continue to monitor. Continue to encourage free water intake. 2. Hyperphosphatemia, improved. 3. Hypokalemia secondary to total body deficit. Improved. Continue to monitor. 4. Diabetes type 1. Continue current insulin regimen. 5. Chronic obstructive pulmonary disease. Continue medical management. 6. Coronary artery disease. Continue current treatment plan. 7. Hypertension. Continue current blood pressure regimen. 8. Anemia. Monitor hemoglobin and hematocrit levels. 9. Systemic inflammatory response syndrome. Continue to monitor. Dictated By: DAHLIA KAUR/MORIS Conf#: [id number] DID#: [id number] CC: AILEEN SHVAER MD;*EndCC*
[2018-10-10] MEDS: DILTIAZEM (SR) 60 MG CAP PO SCH ×2 (09:00→21:00)
[2018-10-10] MEDS: FUROSEMIDE 40 MG TAB PO SCH (09:00)
[2018-10-10] MEDS: LOSARTAN 25 MG TAB PO SCH (09:00)
[2018-10-10] MEDS: METOPROLOL 25 MG TAB PO SCH (09:00)
[2018-10-10] MEDS: ASPIRIN (EC) 81 MG TAB PO SCH (09:50)
[2018-10-10] MEDS: ENOXAPARIN 40 MG/0.4 ML SYG SC SCH (09:51)
[2018-10-10] MEDS: TICAGRELOR 90 MG TABLET PO SCH ×2 (09:51→21:15)
[2018-10-10] MEDS ORDERED: SOD CHLORIDE 0.9% 1,000 ML IV ONE ×2 (11:30→16:00)
[2018-10-10] MEDS: CEFTRIAXONE 1 GM/50 ML (PMX) 50 ML IVPB SCH (12:09)
[2018-10-10] MEDS: AZITHROMYCIN 500MG/NS (PMX) 250 ML IVPB SCH (13:05)
--- NOTE | 2018-10-10 13:13 | PN ---
Date/Time of Note Date/Time of Note DATE: 10/10/18 TIME: 13:05 Assessment/Plan VTE Prophylaxis Risk score (from Ns)>0 risk: 4 [place] [facility] [place] Pharmacological prophylaxis: LMWH Assessment/Plan Hospital Course 1. Type 1 diabetes with DKA Status post DKA protocol Continue subcu insulin regimen, sugars are currently stable Patient with a history of noncompliance, compliance strongly urged A1c 10.4 2. COPD exacerbation with persistent cough Patient with persistent cough on previous hospitalization June of this year with negative pertussis Patient continues to smoke and is the likely etiology of her cough Continue Rocephin and azithromycin Phenergan with codeine Breathing treatments 3. Leukocytosis likely reactive UA is negative for infection Rocephin and azithromycin for COPD exacerbation 4. Symptomatic hypotension Etiology is secondary to polypharmacy as well as diabetic autonomic neuropathy Patient does have a history of gait instability and falls secondary to diabetic neuropathy in the lower extremities as well as autonomic neuropathy and poly- pharmacy 1 L NS bolus x1 Have discontinued patient's Cardizem, no reports of A. fib in the past Have discontinued metoprolol and started Coreg instead which should not affect the blood pressure as significantly Continue low-dose losartan as tolerated for renal protection but will need to DC if BP continues to be low 5. Diabetic neuropathy in the lower extremities Resume home gabapentin 6. History of coronary disease Continue cardiac meds once again have started Coreg and discontinued metoprolol 5. Questionable history of hypertension Once again BP is low but is on losartan for renal protection and is now on Coreg for coronary disease Have discontinued Cardizem and metoprolol Prophylaxis: Lovenox DC planning: Patient with hypotension and dizziness today anticipate DC home tomorrow if blood pressure stabilizes, patient should be discharged with new blood pressure regimen Result Diagram: 10/10/18 0554 10/10/18 0554 Results 24hrs Laboratory Tests Test 10/09/18 14:52 10/09/18 17:26 10/09/18 21:00 10/09/18 21:45 Bedside Glucose 168 217 120 120 Test 10/10/18 05:54 10/10/18 08:08 10/10/18 12:05 White Blood Count 6.7 Red Blood Count 3.27 L Hemoglobin 8.7 L Hematocrit 28.7 L Mean Corpuscular 87.8 Volume Mean Corpuscular 26.6 L Hemoglobin Mean Corpuscular 30.3 L Hemoglobin Concent Red Cell 13.6 Distribution Width Platelet Count 249 Mean Platelet Volume 9.5 Immature 0.400 Granulocytes % Neutrophils % 60.1 Lymphocytes % 25.1 Monocytes % 8.2 Eosinophils % 5.8 Basophils % 0.4 Nucleated Red Blood 0.0 Cells % Immature 0.030 Granulocytes # Neutrophils # 4.0 Lymphocytes # 1.7 Monocytes # 0.6 Eosinophils # 0.4 Basophils # 0.0 Nucleated Red Blood 0.0 Cells # Sodium Level 139 Potassium Level 3.6 Chloride Level 102 Carbon Dioxide Level 32 H Anion Gap 5 Blood Urea Nitrogen 15 Creatinine 0.65 Est Glomerular > 60 Filtrat Rate mL/min Glucose Level 154 Calcium Level 8.4 Phosphorus Level 2.8 Magnesium Level 1.9 Bedside Glucose 223 H 156 Subjective 24 Hr Interval Summary Neurologic: dizziness Exam/Review of Systems Exam Vitals Vital Signs Date Temp Pulse Resp B/P (MAP) Pulse Ox O2 O2 Flow FiO2 Time Delivery Rate 10/10/18 82 20 93 21 12:55 10/10/18 108/49 12:40 (68) 10/10/18 98.2 08:17 10/08/18 Room Air 20:10 10/07/18 2.0 19:38 Intake and Output 10/09/18 10/09/18 10/10/18 1515:00 23:00 07:00 IntakeIntake Total 690 ml 1050 ml OutputOutput Total 2000 ml BalanceBalance 690 ml -950 ml Constitutional: alert, oriented Respiratory: clear to auscultation Cardiovascular: regular rate and rhythm Gastrointestinal: soft; No distended Musculoskeletal: nl extremities to inspection Results Results 24hrs Laboratory Tests Test 10/09/18 14:52 10/09/18 17:26 10/09/18 21:00 10/09/18 21:45 Bedside Glucose 168 217 120 120 Test 10/10/18 05:54 10/10/18 08:08 10/10/18 12:05 White Blood Count 6.7 Red Blood Count 3.27 L Hemoglobin 8.7 L Hematocrit 28.7 L Mean Corpuscular 87.8 Volume Mean Corpuscular 26.6 L Hemoglobin Mean Corpuscular 30.3 L Hemoglobin Concent Red Cell 13.6 Distribution Width Platelet Count 249 Mean Platelet Volume 9.5 Immature 0.400 Granulocytes % Neutrophils % 60.1 Lymphocytes % 25.1 Monocytes % 8.2 Eosinophils % 5.8 Basophils % 0.4 Nucleated Red Blood 0.0 Cells % Immature 0.030 Granulocytes # Neutrophils # 4.0 Lymphocytes # 1.7 Monocytes # 0.6 Eosinophils # 0.4 Basophils # 0.0 Nucleated Red Blood 0.0 Cells # Sodium Level 139 Potassium Level 3.6 Chloride Level 102 Carbon Dioxide Level 32 H Anion Gap 5 Blood Urea Nitrogen 15 Creatinine 0.65 Est Glomerular > 60 Filtrat Rate mL/min Glucose Level 154 Calcium Level 8.4 Phosphorus Level 2.8 Magnesium Level 1.9 Bedside Glucose 223 H 156 Medications Medication Current Medications IV Flush (NS 10 ml) 10 ml PRN PRN IV IV PROTOCOL; Start 10/07/18 at 16:00 Amitriptyline HCl (Elavil) 10 mg QHS PO Last administered on 10/09/18 20:55; Admin Dose 10 MG; Start 10/07/18 at 21:00 Aspirin (Halfprin) 81 mg DAILY PO Last administered on 10/10/18 09:50; Admin Dose 81 MG; Start 10/08/18 at 09:00 Atorvastatin Calcium (Lipitor) 20 mg QHS PO Last administered on 10/09/18 20:55; Admin Dose 20 MG; Start 10/07/18 at 21:00 Furosemide (Lasix) 40 mg DAILY PO Last administered on 10/09/18 08:04; Admin Dose 40 MG; Start 10/08/18 at 09:00 Levothyroxine Sodium (Synthroid) 112 mcg BEFORE BREAKFAST PO Last administered on 10/10/18 05:56; Admin Dose 112 MCG; Start 10/08/18 at 07:00 Losartan Potassium (Cozaar) 25 mg DAILY PO Last administered on 10/09/18 08:05; Admin Dose 25 MG; Start 10/08/18 at 09:00 Ticagrelor (Brilinta) 90 mg Q12 PO Last administered on 10/10/18 09:51; Admin Dose 90 MG; Start 10/07/18 at 21:00 IV Flush (NS 3 ml) 3 ml PER PROTOCOL IV ; Start 10/07/18 at 16:30 Ondansetron HCl (Zofran Inj) 4 mg Q6H PRN IV NAUSEA/VOMITING Last administered on 10/09/18 14:31; Admin Dose 4 MG; Start 10/07/18 at 16:30 Acetaminophen (Tylenol Tab) 650 mg Q6H PRN PO .PAIN 1-3 OR TEMP Last administered on 10/10/18at 12:03; Admin Dose 650 MG; Start 10/07/18 at 16:30 Acetaminophen/ Hydrocodone Bitart ([place] (5/325)) 1 tab Q6H PRN PO .MOD PAIN 4- 6; Start 10/07/18 at 16:30 Morphine Sulfate (morphine) 2 mg Q4H PRN IV .SEVERE PAIN 7-10; Start 10/07/18 at 16:30 Enoxaparin Sodium (Lovenox) 40 mg DAILY SC Last administered on 10/10/18at 09:51; Admin Dose 40 MG; Start 10/08/18 at 09:00 Promethazine HCl/ Codeine (Phenergan/ Codeine) 5 ml Q4H PRN PO COUGH Last administered on 10/09/18at 22:53; Admin Dose 5 ML; Start 10/07/18 at 17:30 Insulin Aspart (Novolog Insulin Pen) NOVOLOG *MODERATE* ALGORITHM WITH MEALS BEDTIME SC Last administered on 10/10/18at 12:12; Admin Dose 2 UNIT; Start 10/08/18 at 07:35 Miscellaneous Information 1 ea NOTE XX ; Start 10/08/18 at 03:00 Glucose (Glutose) 15 gm Q15M PRN PO DECREASED GLUCOSE; Start 10/08/18 at 03:00 Glucose (Glutose) 22.5 gm Q15M PRN PO DECREASED GLUCOSE; Start 10/08/18 at 03:00 Dextrose (D50w Syringe) 25 ml Q15M PRN IV DECREASED GLUCOSE; Start 10/08/18 at 03:00 Dextrose (D50w Syringe) 50 ml Q15M PRN IV DECREASED GLUCOSE; Start 10/08/18 at 03:00 Glucagon (Glucagen) 1 mg Q15M PRN IM DECREASED GLUCOSE; Start 10/08/18 at 03:00 Glucose (Glutose) 15 gm Q15M PRN BUCCAL DECREASED GLUCOSE; Start 10/08/18 at 03:00 Albuterol/ Ipratropium (Duoneb) 3 ml Q4H RESP THERAPY HHN Last administered on 10/10/18at 12:55; Admin Dose 3 ML; Start 10/08/18 at 17:00 Diltiazem HCl (Cardizem Sr) 60 mg Q12 PO Last administered on 10/09/18at 20:53; Admin Dose 60 MG; Start 10/08/18 at 21:00 Ceftriaxone Sodium 50 ml @ 100 mls/hr Q24H IVPB Last administered on 10/10/18at 12:09; Admin Dose 100 MLS/HR; Start 10/09/18 at 12:30 Azithromycin 250 ml @ 250 mls/hr Q24H IVPB Last administered on 10/09/18at 14:14; Admin Dose 250 MLS/HR; Start 10/09/18 at 13:30 Insulin Aspart (Novolog Insulin Pen) 10 unit WITH MEALS SC Last administered on 10/10/18 12:11; Admin Dose 10 UNIT; Start 10/09/18 at 17:35 Insulin Glargine (Lantus) 20 units DAILY@0800 SC Last administered on 10/10/18 08:11; Admin Dose 20 UNITS; Start 10/10/18 at 08:00 Phenol (Cepastat Lozenge) 1 lozenge Q1H PRN MT COUGH; Start 10/10/18 at 00:30 Carvedilol (Coreg) 3.125 mg BID PO ; Start 10/10/18 at 21:00; Status AILEEN CHOWDARY Oct 10, 2018 13:13
[2018-10-10] MEDS: CEPASTAT LOZENGE MT PRN (15:05)
[2018-10-10] MEDS: GABAPENTIN 300 MG CAP PO SCH (21:13)
[2018-10-10] MEDS: AMITRIPTYLINE 10 MG TAB PO SCH (21:13)
[2018-10-10] MEDS: ATORVASTATIN 20 MG TAB PO SCH (21:13)
[2018-10-10] MEDS: PROMETHAZINE/CODEINE 5ML CUP PO PRN (22:46)
[2018-10-11] MEDS: ALBUTEROL/IPRATROPIUM (NEB) 3 ML AMP HHN SCH ×3 (00:51→08:08)
[2018-10-11 02:00] VITALS: BP 108/54; PULSE 86; RESP 16
[2018-10-11] MEDS: PROMETHAZINE/CODEINE 5ML CUP PO PRN ×3 (07:56→20:49)
[2018-10-11] MEDS: LEVOTHYROXINE 112 MCG TAB PO SCH (08:23)
[2018-10-11] MEDS: INSULIN ASPART [NOVOLOG] 3 ML PEN SC SCH ×7 (08:28→20:45)
[2018-10-11 08:30] VITALS: BP 115/55; PULSE 94; RESP 18
[2018-10-11] MEDS: INSULIN GLARGINE [LANTus] (100 UNITS/ML) SYG SC SCH (08:30)
[2018-10-11] MEDS: GABAPENTIN 300 MG CAP PO SCH ×3 (08:35→20:39)
[2018-10-11] MEDS: TICAGRELOR 90 MG TABLET PO SCH ×2 (08:36→20:38)
[2018-10-11] MEDS: ASPIRIN (EC) 81 MG TAB PO SCH (08:36)
[2018-10-11] MEDS: DILTIAZEM (SR) 60 MG CAP PO SCH (08:37)
[2018-10-11] MEDS: LOSARTAN 25 MG TAB PO SCH (09:00)
[2018-10-11] MEDS: ENOXAPARIN 40 MG/0.4 ML SYG SC SCH (09:00)
[2018-10-11] MEDS: FUROSEMIDE 40 MG TAB PO SCH (09:00)
--- NOTE | 2018-10-11 09:38 | PN ---
DATE: 10/11/2018 SUBJECTIVE: The patient is stable. No events overnight. OBJECTIVE: VITAL SIGNS: Blood pressure is 115/55, respiration 18, pulse 74, temperature 98.4. HEENT: Head is normocephalic. NECK: Supple. HEART: Regular rate. LUNGS: Show diminished breath sounds at the base. ABDOMEN: Soft, nontender to palpation. No rebound or guarding. EXTREMITIES: Negative for clubbing, cyanosis, no edema. DERMATOLOGIC: No rashes. MUSCULOSKELETAL: No joint effusions. NEUROLOGIC: No change in exam. MEDICATIONS: The patient's medications have been reviewed. LABORATORY DATA: Currently pending. ASSESSMENT AND PLAN: 1. Acute hyponatremia, resolved. Continue to monitor. 2. Hyperphosphatemia, improved. Continue to monitor. 3. Hypokalemia secondary total body deficit, improved. Continue to monitor. 4. Diabetes. Continue current insulin regimen. 5. Chronic obstructive pulmonary disease. Continue current medical management. 6. Coronary artery disease. Continue current treatment. 7. Hypertension. The patient noted to have episodes of low blood pressure. Blood pressure medicati ons were adjusted. Continue to monitor. 8. Anemia. Monitor hemoglobin and hematocrit levels. We will sign off. Please reconsult as needed. Dictated By: DAHLIA OLIVIER DO NR/NTS Conf#: [id number] DID#: [id number] CC: AILEEN SHAVER MD;*End*
[2018-10-11] MEDS ORDERED: ALBUTEROL/IPRATROPIUM (NEB) 3 ML AMP HHN PRN (12:00)
--- NOTE | 2018-10-11 13:20 | CONS ---
Assessment/Plan Assessment/Plan Hospital Course (Demo Recall) IMPRESSION: 1. Hypertension, reasonable control. 2. Abnormal electrocardiogram, assess for acute coronary syndrome. 3. History of coronary artery disease, status post PTCA and stent placement artery to right coronary artery in 08/29/2018 with only chest pain with cough at this time. 4. History of coronary artery bypass graft surgery in 01/2017. 5. Diabetic ketoacidosis-improved overall 6. Chronic obstructive pulmonary disease with ongoing cough. 7. Possible additional upper respiratory infection. 8. Hypothyroidism. 9. Dyslipidemia. Recc -Now on med-surg -Continue asa/brilinta -Continue losartan -Would change coreg to B1 selective BB so as not to provoke in additional bronchospasm given severe cough -Continue statin -Contineu lasix and follow volume status -Continue abx's and bronchodilators -Follow BS and adjust insulin as necessary Consultation Date/Type/Reason Admit Date/Time Oct 07, 2018 at 09:53 Initial Consult Date 10/08/18 Type of Consult Cardiology Reason for Consultation h/o stents Requesting Provider: AILEEN SHAVER Date/Time of Note DATE: 10/11/18 TIME: 13:16 Exam/Review of Systems Vital Signs Vitals Vital Signs Date Temp Pulse Resp B/P (MAP) Pulse Ox O2 O2 Flow FiO2 Time Delivery Rate 10/11/18 98.4 94 18 115/55 97 08:30 (75) 10/10/18 21 17:23 10/08/18 Room Air 20:10 10/07/18 2.0 19:38 Intake and Output 10/10/18 10/10/18 10/11/18 1515:00 23:00 07:00 IntakeIntake Total 1780 ml 2120 ml 480 ml OutputOutput Total 250 ml 200 ml 400 ml BalanceBalance 1530 ml 1920 ml 80 ml Exam Exam Review of Systems: CONSTITUTIONAL: No fevers, chills. PULMONARY: ongoing cough CARDIOVASCULAR: No chest pain/palpitations GASTROINTESTINAL: No nausea/vomiting. GENITOURINARY: No hematuria/dysuria. MUSCULOSKELETAL: No myagias/arthalgias. PSYCHIATRIC: The patient denies depression. NEUROLOGIC: No weakness Constitutional: alert, oriented Psych: no complaints Head: normocephalic ENMT: mucosa pink and moist Neck: supple, jvd (8 cm water) Respiratory: diminished breath sounds (at bases/B) Cardiovascular: regular rate and rhythm Gastrointestinal: soft Musculoskeletal: muscle tone (normal) Extremities: edema (none) 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: other (No focal deficits) Labs Result Diagram: 10/10/18 0554 10/11/18 1210 Results 24hrs Laboratory Tests Test 10/10/18 17:31 10/10/18 21:05 10/11/18 08:09 10/11/18 11:34 Bedside Glucose 77 92 161 44 *L Test 10/11/18 11:52 10/11/18 12:09 10/11/18 12:10 10/11/18 12:43 Bedside Glucose 60 L 62 L 78 Glucose Level 50 #*L Medications Medications Current Medications IV Flush (NS 10 ml) 10 ml PRN PRN IV IV PROTOCOL; Start 10/07/18 at 16:00 Amitriptyline HCl (Elavil) 10 mg QHS PO Last administered on 10/10/18 21:13; Admin Dose 10 MG; Start 10/07/18 at 21:00 Aspirin (Halfprin) 81 mg DAILY PO Last administered on 10/11/18 08:36; Admin Dose 81 MG; Start 10/08/18 at 09:00 Atorvastatin Calcium (Lipitor) 20 mg QHS PO Last administered on 10/10/18 21:13; Admin Dose 20 MG; Start 10/07/18 at 21:00 Furosemide (Lasix) 40 mg DAILY PO Last administered on 10/09/18 08:04; Admin Dose 40 MG; Start 10/08/18 at 09:00 Levothyroxine Sodium (Synthroid) 112 mcg BEFORE BREAKFAST PO Last administered on 10/11/18 08:23; Admin Dose 112 MCG; Start 10/08/18 at 07:00 Losartan Potassium (Cozaar) 25 mg DAILY PO Last administered on 10/09/18 08:05; Admin Dose 25 MG; Start 10/08/18 at 09:00 Ticagrelor (Brilinta) 90 mg Q12 PO Last administered on 10/11/18 08:36; Admin Dose 90 MG; Start 10/07/18 at 21:00 IV Flush (NS 3 ml) 3 ml PER PROTOCOL IV ; Start 10/07/18 at 16:30 Ondansetron HCl (Zofran Inj) 4 mg Q6H PRN IV NAUSEA/VOMITING Last administered on 10/09/18 14:31; Admin Dose 4 MG; Start 10/07/18 at 16:30 Acetaminophen (Tylenol Tab) 650 mg Q6H PRN PO .PAIN 1-3 OR TEMP Last administered on 10/10/18at 12:03; Admin Dose 650 MG; Start 10/07/18 at 16:30 Acetaminophen/ Hydrocodone Bitart ([place] (5/325)) 1 tab Q6H PRN PO .MOD PAIN 4- 6; Start 10/07/18 at 16:30 Morphine Sulfate (morphine) 2 mg Q4H PRN IV .SEVERE PAIN 7-10; Start 10/07/18 at 16:30 Enoxaparin Sodium (Lovenox) 40 mg DAILY SC Last administered on 10/10/18at 09:51; Admin Dose 40 MG; Start 10/08/18 at 09:00 Promethazine HCl/ Codeine (Phenergan/ Codeine) 5 ml Q4H PRN PO COUGH Last administered on 10/11/18at 07:56; Admin Dose 5 ML; Start 10/07/18 at 17:30 Insulin Aspart (Novolog Insulin Pen) NOVOLOG *MODERATE* ALGORITHM WITH MEALS BEDTIME SC Last administered on 10/11/18 08:30; Admin Dose 2 UNIT; Start 10/08/18 at 07:35 Miscellaneous Information 1 ea NOTE XX ; Start 10/08/18 at 03:00 Glucose (Glutose) 15 gm Q15M PRN PO DECREASED GLUCOSE; Start 10/08/18 at 03:00 Glucose (Glutose) 22.5 gm Q15M PRN PO DECREASED GLUCOSE; Start 10/08/18 at 03:00 Dextrose (D50w Syringe) 25 ml Q15M PRN IV DECREASED GLUCOSE; Start 10/08/18 at 03:00 Dextrose (D50w Syringe) 50 ml Q15M PRN IV DECREASED GLUCOSE; Start 10/08/18 at 03:00 Glucagon (Glucagen) 1 mg Q15M PRN IM DECREASED GLUCOSE; Start 10/08/18 at 03:00 Glucose (Glutose) 15 gm Q15M PRN BUCCAL DECREASED GLUCOSE; Start 10/08/18 at 03:00 Ceftriaxone Sodium 50 ml @ 100 mls/hr Q24H IVPB Last administered on 10/10/18 12:09; Admin Dose 100 MLS/HR; Start 10/09/18 at 12:30 Azithromycin 250 ml @ 250 mls/hr Q24H IVPB Last administered on 10/10/18 13:05; Admin Dose 250 MLS/HR; Start 10/09/18 at 13:30 Insulin Aspart (Novolog Insulin Pen) 10 unit WITH MEALS SC Last administered on 10/11/18 08:28; Admin Dose 10 UNIT; Start 10/09/18 at 17:35 Insulin Glargine (Lantus) 20 units DAILY@0800 SC Last administered on 10/11/18 08:30; Admin Dose 20 UNITS; Start 10/10/18 at 08:00 Phenol (Cepastat Lozenge) 1 lozenge Q1H PRN MT COUGH Last administered on 10/10/18 15:05; Admin Dose 1 LOZENGE; Start 10/10/18 at 00:30 Carvedilol (Coreg) 3.125 mg BID PO Last administered on 10/11/18 08:38; Admin Dose 3.125 MG; Start 10/10/18 at 21:00 Gabapentin (Neurontin) 600 mg TID PO Last administered on 10/11/18 08:35; Admin Dose 600 MG; Start 10/10/18 at 21:00 Albuterol/ Ipratropium (Duoneb) 3 ml Q4H RESP THERAPY PRN HHN wheezing; Start 10/11/18 at 12:00 RHONDA PENA Oct 11, 2018 13:20
[2018-10-11] MEDS: AZITHROMYCIN 500MG/NS (PMX) 250 ML IVPB SCH (13:37)
[2018-10-11] MEDS: CEFTRIAXONE 1 GM/50 ML (PMX) 50 ML IVPB SCH (14:07)
[2018-10-11] MEDS: CEPASTAT LOZENGE MT PRN ×2 (14:07→20:40)
[2018-10-11] MEDS ORDERED: ALTEPLASE (CATHFLO) 2 MG INJ CATHETER PRN (14:30)
[2018-10-11 15:03] VITALS: BP 97/49; PULSE 87; RESP 18
--- NOTE | 2018-10-11 15:46 | PN ---
Date/Time of Note Date/Time of Note DATE: 10/11/18 TIME: 15:45 Assessment/Plan VTE Prophylaxis Risk score (from Ns)>0 risk: 2 SCD applied (from Ns): Yes Pharmacological prophylaxis: heparin Lines/Catheters IV Catheter Type (from Nrsg): PICC Line Central line still needed: Yes Urinary Cath still in place: Yes Reason Cath still needed: urinary retention Assessment/Plan Hospital Course 58 yo female with hypertension, CAD, DMI presneted with DKA DKA: - resolved DM: - hypoglycemia, decrease lantus dose Cough: - Nebs CAD: - DAPT Hypotension: - Dc diltiazem dc tomorrow if BP and sugars normal Result Diagram: 10/10/18 0554 10/11/18 1210 Results 24hrs Laboratory Tests Test 10/10/18 17:31 10/10/18 21:05 10/11/18 08:09 10/11/18 11:34 Bedside Glucose 77 92 161 44 *L Test 10/11/18 11:52 10/11/18 12:09 10/11/18 12:10 10/11/18 12:43 Bedside Glucose 60 L 62 L 78 Glucose Level 50 #*L Test 10/11/18 13:27 10/11/18 13:57 Bedside Glucose 179 181 Subjective 24 Hr Interval Summary Free Text/Dictation Episodic hypoglycemia SOB/cough Exam/Review of Systems Exam Vitals Vital Signs Date Temp Pulse Resp B/P (MAP) Pulse Ox O2 O2 Flow FiO2 Time Delivery Rate 10/11/18 96.3 87 18 97/49 (65) 94 15:03 10/10/18 21 17:23 10/08/18 Room Air 20:10 10/07/18 2.0 19:38 Intake and Output 10/10/18 10/10/18 10/11/18 1515:00 23:00 07:00 IntakeIntake Total 1780 ml 2120 ml 480 ml OutputOutput Total 250 ml 200 ml 400 ml BalanceBalance 1530 ml 1920 ml 80 ml Constitutional: alert, oriented, well developed Psych: no complaints, nl mood/affect Head: normocephalic, atraumatic Eyes: nl conjunctiva, EOMI, nl lids, nl sclera, PERRL ENMT: nl external ears & nose, nl lips & teeth, nl nasal mucosa & septum Neck: supple, non-tender Respiratory: clear to auscultation, normal air movement Cardiovascular: regular rate and rhythm, nl pulses Gastrointestinal: soft, nl liver, spleen, non-tender Musculoskeletal: nl extremities to inspection, nl gait and stance Extremities: normal pulses 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, nl mental status, nl speech, nl strength Skin: nl turgor; No rash or lesions Lymph: nl lymph nodes Results Results 24hrs Laboratory Tests Test 10/10/18 17:31 10/10/18 21:05 10/11/18 08:09 10/11/18 11:34 Bedside Glucose 77 92 161 44 *L Test 10/11/18 11:52 10/11/18 12:09 10/11/18 12:10 10/11/18 12:43 Bedside Glucose 60 L 62 L 78 Glucose Level 50 #*L Test 10/11/18 13:27 10/11/18 13:57 Bedside Glucose 179 181 Medications Medication Current Medications IV Flush (NS 10 ml) 10 ml PRN PRN IV IV PROTOCOL; Start 10/07/18 at 16:00 Amitriptyline HCl (Elavil) 10 mg QHS PO Last administered on 10/10/18 21:13; Admin Dose 10 MG; Start 10/07/18 at 21:00 Aspirin (Halfprin) 81 mg DAILY PO Last administered on 10/11/18 08:36; Admin Dose 81 MG; Start 10/08/18 at 09:00 Atorvastatin Calcium (Lipitor) 20 mg QHS PO Last administered on 10/10/18 21:1 3; Admin Dose 20 MG; Start 10/07/18 at 21:00 Furosemide (Lasix) 40 mg DAILY PO Last administered on 10/09/18 08:04; Admin Dose 40 MG; Start 10/08/18 at 09:00 Levothyroxine Sodium (Synthroid) 112 mcg BEFORE BREAKFAST PO Last administered on 10/11/18 08:23; Admin Dose 112 MCG; Start 10/08/18 at 07:00 Losartan Potassium (Cozaar) 25 mg DAILY PO Last administered on 10/09/18 08:05; Admin Dose 25 MG; Start 10/08/18 at 09:00 Ticagrelor (Brilinta) 90 mg Q12 PO Last administered on 10/11/18 08:36; Admin Dose 90 MG; Start 10/07/18 at 21:00 IV Flush (NS 3 ml) 3 ml PER PROTOCOL IV ; Start 10/07/18 at 16:30 Ondansetron HCl (Zofran Inj) 4 mg Q6H PRN IV NAUSEA/VOMITING Last administered on 10/09/18at 14:31; Admin Dose 4 MG; Start 10/07/18 at 16:30 Acetaminophen (Tylenol Tab) 650 mg Q6H PRN PO .PAIN 1-3 OR TEMP Last administered on 10/10/18at 12:03; Admin Dose 650 MG; Start 10/07/18 at 16:30 Acetaminophen/ Hydrocodone Bitart ([place] (5/325)) 1 tab Q6H PRN PO .MOD PAIN 4- 6; Start 10/07/18 at 16:30 Morphine Sulfate (morphine) 2 mg Q4H PRN IV .SEVERE PAIN 7-10; Start 10/07/18 at 16:30 Enoxaparin Sodium (Lovenox) 40 mg DAILY SC Last administered on 10/10/18at 09:51; Admin Dose 40 MG; Start 10/08/18 at 09:00 Promethazine HCl/ Codeine (Phenergan/ Codeine) 5 ml Q4H PRN PO COUGH Last administered on 10/11/18at 14:07; Admin Dose 5 ML; Start 10/07/18 at 17:30 Insulin Aspart (Novolog Insulin Pen) NOVOLOG *MODERATE* ALGORITHM WITH MEALS BEDTIME SC Last administered on 10/11/18at 08:30; Admin Dose 2 UNIT; Start 10/08/18 at 07:35 Miscellaneous Information 1 ea NOTE XX ; Start 10/08/18 at 03:00 Glucose (Glutose) 15 gm Q15M PRN PO DECREASED GLUCOSE; Start 10/08/18 at 03:00 Glucose (Glutose) 22.5 gm Q15M PRN PO DECREASED GLUCOSE; Start 10/08/18 at 03:00 Dextrose (D50w Syringe) 25 ml Q15M PRN IV DECREASED GLUCOSE; Start 10/08/18 at 03:00 Dextrose (D50w Syringe) 50 ml Q15M PRN IV DECREASED GLUCOSE; Start 10/08/18 at 03:00 Glucagon (Glucagen) 1 mg Q15M PRN IM DECREASED GLUCOSE; Start 10/08/18 at 03:00 Glucose (Glutose) 15 gm Q15M PRN BUCCAL DECREASED GLUCOSE; Start 10/08/18 at 03:00 Ceftriaxone Sodium 50 ml @ 100 mls/hr Q24H IVPB Last administered on 10/11/18at 14:07; Admin Dose 100 MLS/HR; Start 10/09/18 at 12:30 Azithromycin 250 ml @ 250 mls/hr Q24H IVPB Last administered on 10/11/18at 13:37; Admin Dose 250 MLS/HR; Start 10/09/18 at 13:30 Insulin Aspart (Novolog Insulin Pen) 10 unit WITH MEALS SC Last administered on 10/11/18 08:28; Admin Dose 10 UNIT; Start 10/09/18 at 17:35 Phenol (Cepastat Lozenge) 1 lozenge Q1H PRN MT COUGH Last administered on 10/11/18at 14:07; Admin Dose 1 LOZENGE; Start 10/10/18 at 00:30 Gabapentin (Neurontin) 600 mg TID PO Last administered on 10/11/18at 13:35; Admin Dose 600 MG; Start 10/10/18 at 21:00 Albuterol/ Ipratropium (Duoneb) 3 ml Q4H RESP THERAPY PRN HHN wheezing; Start 10/11/18 at 12:00 Metoprolol Succinate (Toprol Xl) 12.5 mg DAILY PO ; Start 10/12/18 at 09:00 Insulin Glargine (Lantus) 10 units DAILY@0800 SC ; Start 10/12/18 at 08:00 Alteplase, Recombinant (Cathflo (Activase)) 2 mg MAY REPEAT X1 PRN CATHETER IF CATHETER REMAINS OCCULUDED; Start 10/11/18 at 14:30 TARA VÁZQUEZ MD Oct 11, 2018 15:46
[2018-10-11] MEDS: GUAIFENESIN/DM 5ML CUP PO PRN (17:39)
[2018-10-11 20:33] VITALS: BP 89/44; PULSE 89; RESP 16
[2018-10-11] MEDS: AMITRIPTYLINE 10 MG TAB PO SCH (20:39)
[2018-10-11] MEDS: ATORVASTATIN 20 MG TAB PO SCH (20:39)
[2018-10-12 02:07] VITALS: BP 102/50; PULSE 84; RESP 16
[2018-10-12] MEDS: PROMETHAZINE/CODEINE 5ML CUP PO PRN ×4 (02:27→22:20)
[2018-10-12] MEDS: LEVOTHYROXINE 112 MCG TAB PO SCH (06:24)
[2018-10-12 08:25] VITALS: BP 120/58; PULSE 88; RESP 18
[2018-10-12] MEDS: ASPIRIN (EC) 81 MG TAB PO SCH (08:36)
[2018-10-12] MEDS: GABAPENTIN 300 MG CAP PO SCH ×2 (08:37→12:37)
[2018-10-12] MEDS: TICAGRELOR 90 MG TABLET PO SCH ×2 (08:37→21:10)
[2018-10-12] MEDS: INSULIN GLARGINE [LANTus] (100 UNITS/ML) SYG SC SCH (08:39)
[2018-10-12] MEDS: INSULIN ASPART [NOVOLOG] 3 ML PEN SC SCH ×7 (08:40→21:00)
[2018-10-12] MEDS: FUROSEMIDE 40 MG TAB PO SCH (08:43)
[2018-10-12] MEDS: METOPROLOL (XL) 25 MG TAB PO SCH (08:44)
[2018-10-12] MEDS: LOSARTAN 25 MG TAB PO SCH (08:44)
[2018-10-12] MEDS: ENOXAPARIN 40 MG/0.4 ML SYG SC SCH (08:47)
[2018-10-12] MEDS: CEFTRIAXONE 1 GM/50 ML (PMX) 50 ML IVPB SCH (12:37)
[2018-10-12] MEDS: AZITHROMYCIN 500MG/NS (PMX) 250 ML IVPB SCH (13:34)
[2018-10-12 14:00] VITALS: BP 86/45; PULSE 98
--- NOTE | 2018-10-12 14:25 | PN ---
Date/Time of Note Date/Time of Note DATE: 10/12/18 TIME: 14:24 Assessment/Plan VTE Prophylaxis Risk score (from Ns)>0 risk: 4 SCD applied (from Ns): Yes Pharmacological prophylaxis: heparin Lines/Catheters IV Catheter Type (from Nrsg): PICC Line Central line still needed: Yes Urinary Cath still in place: Yes Reason Cath still needed: urinary retention Assessment/Plan Hospital Course 58 yo female with hypertension, CAD, DMI presneted with DKA We will continue to monitor her vitals. dc gabapentin and hold antihypertensives. Will continue PT inpatient. Hopefully feels well enough to discharge tomorrow, otherwise will suggest [facility]. DKA: - resolved DM: - hypoglycemia, decreased lantus dose Cough: - Nebs CAD: - DAPT Hypotension: - Dc diltiazem/losartan Result Diagram: 10/10/18 0554 10/11/18 1210 Results 24hrs Laboratory Tests Test 10/11/18 17:36 10/11/18 20:43 10/11/18 20:44 10/12/18 08:07 Bedside Glucose 249 H 82 72 158 Test 10/12/18 12:12 Bedside Glucose 99 Subjective 24 Hr Interval Summary Free Text/Dictation Still feeling dizzy, unwell Difficulty ambulating to bathroom Doesn't feel ready for dc Exam/Review of Systems Exam Vitals Vital Signs Date Temp Pulse Resp B/P (MAP) Pulse Ox O2 O2 Flow FiO2 Time Delivery Rate 10/12/18 98.3 88 18 120/58 95 08:25 (78) 10/10/18 21 17:23 10/08/18 Room Air 20:10 Intake and Output 10/11/18 10/11/18 10/12/18 1515:00 23:00 07:00 IntakeIntake Total 480 ml 540 ml OutputOutput Total 500 ml 1900 ml BalanceBalance 480 ml 40 ml -1900 ml Constitutional: alert, oriented, well developed Psych: no complaints, nl mood/affect Head: normocephalic, atraumatic Eyes: nl conjunctiva, EOMI, nl lids, nl sclera, PERRL ENMT: nl external ears & nose, nl lips & teeth, nl nasal mucosa & septum Neck: supple, non-tender Respiratory: clear to auscultation, normal air movement Cardiovascular: regular rate and rhythm, nl pulses Gastrointestinal: soft, nl liver, spleen, non-tender Musculoskeletal: nl extremities to inspection, nl gait and stance Extremities: normal pulses 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, nl mental status, nl speech, nl strength Skin: nl turgor; No rash or lesions Lymph: nl lymph nodes Results Results 24hrs Laboratory Tests Test 10/11/18 17:36 10/11/18 20:43 10/11/18 20:44 10/12/18 08:07 Bedside Glucose 249 H 82 72 158 Test 10/12/18 12:12 Bedside Glucose 99 Medications Medication Current Medications IV Flush (NS 10 ml) 10 ml PRN PRN IV IV PROTOCOL; Start 10/07/18 at 16:00 Amitriptyline HCl (Elavil) 10 mg QHS PO Last administered on 10/11/18 20:39; Admin Dose 10 MG; Start 10/07/18 at 21:00 Aspirin (Halfprin) 81 mg DAILY PO Last administered on 10/12/18 08:36; Admin Dose 81 MG; Start 10/08/18 at 09:00 Atorvastatin Calcium (Lipitor) 20 mg QHS PO Last administered on 10/11/18 20:39; Admin Dose 20 MG; Start 10/07/18 at 21:00 Furosemide (Lasix) 40 mg DAILY PO Last administered on 10/12/18 08:43; Admin Dose 40 MG; Start 10/08/18 at 09:00 Levothyroxine Sodium (Synthroid) 112 mcg BEFORE BREAKFAST PO Last administered on 10/12/18 06:24; Admin Dose 112 MCG; Start 10/08/18 at 07:00 Ticagrelor (Brilinta) 90 mg Q12 PO Last administered on 10/12/18 08:37; Admin Dose 90 MG; Start 10/07/18 at 21:00 IV Flush (NS 3 ml) 3 ml PER PROTOCOL IV ; Start 10/07/18 at 16:30 Ondansetron HCl (Zofran Inj) 4 mg Q6H PRN IV NAUSEA/VOMITING Last administered on 10/09/18 14:31; Admin Dose 4 MG; Start 10/07/18 at 16:30 Acetaminophen (Tylenol Tab) 650 mg Q6H PRN PO .PAIN 1-3 OR TEMP Last administ ered on 10/10/18 12:03; Admin Dose 650 MG; Start 10/07/18 at 16:30 Acetaminophen/ Hydrocodone Bitart ([place] (5/325)) 1 tab Q6H PRN PO .MOD PAIN 4- 6; Start 10/07/18 at 16:30 Morphine Sulfate (morphine) 2 mg Q4H PRN IV .SEVERE PAIN 7-10; Start 10/07/18 at 16:30 Enoxaparin Sodium (Lovenox) 40 mg DAILY SC Last administered on 10/12/18 08:47; Admin Dose 40 MG; Start 10/08/18 at 09:00 Promethazine HCl/ Codeine (Phenergan/ Codeine) 5 ml Q4H PRN PO COUGH Last administered on 10/12/18 13:35; Admin Dose 5 ML; Start 10/07/18 at 17:30 Insulin Aspart (Novolog Insulin Pen) NOVOLOG *MODERATE* ALGORITHM WITH MEALS BEDTIME SC Last administered on 10/12/18 08:43; Admin Dose 2 UNIT; Start 10/08/18 at 07:35 Miscellaneous Information 1 ea NOTE XX ; Start 10/08/18 at 03:00 Glucose (Glutose) 15 gm Q15M PRN PO DECREASED GLUCOSE; Start 10/08/18 at 03:00 Glucose (Glutose) 22.5 gm Q15M PRN PO DECREASED GLUCOSE; Start 10/08/18 at 03:00 Dextrose (D50w Syringe) 25 ml Q15M PRN IV DECREASED GLUCOSE; Start 10/08/18 at 03:00 Dextrose (D50w Syringe) 50 ml Q15M PRN IV DECREASED GLUCOSE; Start 10/08/18 at 03:00 Glucagon (Glucagen) 1 mg Q15M PRN IM DECREASED GLUCOSE; Start 10/08/18 at 03:00 Glucose (Glutose) 15 gm Q15M PRN BUCCAL DECREASED GLUCOSE; Start 10/08/18 at 03:00 Ceftriaxone Sodium 50 ml @ 100 mls/hr Q24H IVPB Last administered on 10/12/18at 12:37; Admin Dose 100 MLS/HR; Start 10/09/18 at 12:30 Azithromycin 250 ml @ 250 mls/hr Q24H IVPB Last administered on 10/12/18 13:34; Admin Dose 250 MLS/HR; Start 10/09/18 at 13:30 Insulin Aspart (Novolog Insulin Pen) 10 unit WITH MEALS SC Last administered on 10/12/18at 12:23; Admin Dose 10 UNIT; Start 10/09/18 at 17:35 Phenol (Cepastat Lozenge) 1 lozenge Q1H PRN MT COUGH Last administered on 10/11/18at 20:40; Admin Dose 1 LOZENGE; Start 10/10/18 at 00:30 Albuterol/ Ipratropium (Duoneb) 3 ml Q4H RESP THERAPY PRN HHN wheezing; Start 10/11/18 at 12:00 Metoprolol Succinate (Toprol Xl) 12.5 mg DAILY PO Last administered on 10/12/18 08:44; Admin Dose 12.5 MG; Start 10/12/18 at 09:00 Insulin Glargine (Lantus) 10 units DAILY@0800 SC Last administered on 10/12/18at 08:39; Admin Dose 10 UNITS; Start 10/12/18 at 08:00 Alteplase, Recombinant (Cathflo (Activase)) 2 mg MAY REPEAT X1 PRN CATHETER IF CATHETER REMAINS OCCULUDED; Start 10/11/18 at 14:30 Guaifenesin/ Dextromethorphan (Robitussin Dm Liquid Cup) 5 ml Q4H PRN PO coughing Last administered on 10/11/18at 17:39; Admin Dose 5 ML; Start 10/11/18 at 17:30 TARA VÁZQUEZ MD Oct 12, 2018 14:25
--- NOTE | 2018-10-12 15:05 | CONS ---
Consultation Date/Type/Reason Admit Date/Time Oct 07, 2018 at 09:53 Initial Consult Date Requesting Provider: AILEEN SHAVER Date/Time of Note DATE: 10/12/18 TIME: 15:04 24 HR Interval Summary Free Text/Dictation VS stable - reviewed Exam/Review of Systems Exam Vitals Vital Signs Date Temp Pulse Resp B/P (MAP) Pulse Ox O2 O2 Flow FiO2 Time Delivery Rate 10/12/18 98.3 88 18 120/58 95 08:25 (78) 10/10/18 21 17:23 10/08/18 Room Air 20:10 Intake and Output 10/11/18 10/11/18 10/12/18 1515:00 23:00 07:00 IntakeIntake Total 480 ml 540 ml OutputOutput Total 500 ml 1900 ml BalanceBalance 480 ml 40 ml -1900 ml Results Result Diagram: 10/10/18 0554 10/11/18 1210 Results 24hrs Laboratory Tests Test 10/11/18 17:36 10/11/18 20:43 10/11/18 20:44 10/12/18 08:07 Bedside Glucose 249 H 82 72 158 Test 10/12/18 12:12 Bedside Glucose 99 Medications Medication Current Medications IV Flush (NS 10 ml) 10 ml PRN PRN IV IV PROTOCOL; Start 10/07/18 at 16:00 Amitriptyline HCl (Elavil) 10 mg QHS PO Last administered on 10/11/18at 20:39; Admin Dose 10 MG; Start 10/07/18 at 21:00 Aspirin (Halfprin) 81 mg DAILY PO Last administered on 10/12/18 08:36; Admin Dose 81 MG; Start 10/08/18 at 09:00 Atorvastatin Calcium (Lipitor) 20 mg QHS PO Last administered on 10/11/18at 20:39; Admin Dose 20 MG; Start 10/07/18 at 21:00 Furosemide (Lasix) 40 mg DAILY PO Last administered on 10/12/18 08:43; Admin Dose 40 MG; Start 10/08/18 at 09:00 Levothyroxine Sodium (Synthroid) 112 mcg BEFORE BREAKFAST PO Last administered on 10/12/18at 06:24; Admin Dose 112 MCG; Start 10/08/18 at 07:00 Ticagrelor (Brilinta) 90 mg Q12 PO Last administered on 10/12/18 08:37; Admin Dose 90 MG; Start 10/07/18 at 21:00 IV Flush (NS 3 ml) 3 ml PER PROTOCOL IV ; Start 10/07/18 at 16:30 Ondansetron HCl (Zofran Inj) 4 mg Q6H PRN IV NAUSEA/VOMITING Last administered on 10/09/18 14:31; Admin Dose 4 MG; Start 10/07/18 at 16:30 Acetaminophen (Tylenol Tab) 650 mg Q6H PRN PO .PAIN 1-3 OR TEMP Last administered on 10/10/18 12:03; Admin Dose 650 MG; Start 10/07/18 at 16:30 Acetaminophen/ Hydrocodone Bitart ([place] (5/325)) 1 tab Q6H PRN PO .MOD PAIN 4- 6; Start 10/07/18 at 16:30 Morphine Sulfate (morphine) 2 mg Q4H PRN IV .SEVERE PAIN 7-10; Start 10/07/18 at 16:30 Enoxaparin Sodium (Lovenox) 40 mg DAILY SC Last administered on 10/12/18at 08:47; Admin Dose 40 MG; Start 10/08/18 at 09:00 Promethazine HCl/ Codeine (Phenergan/ Codeine) 5 ml Q4H PRN PO COUGH Last administered on 10/12/18 13:35; Admin Dose 5 ML; Start 10/07/18 at 17:30 Insulin Aspart (Novolog Insulin Pen) NOVOLOG *MODERATE* ALGORITHM WITH MEALS BEDTIME SC Last administered on 10/12/18 08:43; Admin Dose 2 UNIT; Start 10/08/18 at 07:35 Miscellaneous Information 1 ea NOTE XX ; Start 10/08/18 at 03:00 Glucose (Glutose) 15 gm Q15M PRN PO DECREASED GLUCOSE; Start 10/08/18 at 03:00 Glucose (Glutose) 22.5 gm Q15M PRN PO DECREASED GLUCOSE; Start 10/08/18 at 03:00 Dextrose (D50w Syringe) 25 ml Q15M PRN IV DECREASED GLUCOSE; Start 10/08/18 at 03:00 Dextrose (D50w Syringe) 50 ml Q15M PRN IV DECREASED GLUCOSE; Start 10/08/18 at 03:00 Glucagon (Glucagen) 1 mg Q15M PRN IM DECREASED GLUCOSE; Start 10/08/18 at 03:00 Glucose (Glutose) 15 gm Q15M PRN BUCCAL DECREASED GLUCOSE; Start 10/08/18 at 03:00 Ceftriaxone Sodium 50 ml @ 100 mls/hr Q24H IVPB Last administered on 10/12/18at 12:37; Admin Dose 100 MLS/HR; Start 10/09/18 at 12:30 Azithromycin 250 ml @ 250 mls/hr Q24H IVPB Last administered on 10/12/18 13:34; Admin Dose 250 MLS/HR; Start 10/09/18 at 13:30 Insulin Aspart (Novolog Insulin Pen) 10 unit WITH MEALS SC Last administered on 10/12/18 12:23; Admin Dose 10 UNIT; Start 10/09/18 at 17:35 Phenol (Cepastat Lozenge) 1 lozenge Q1H PRN MT COUGH Last administered on 10/11/18at 20:40; Admin Dose 1 LOZENGE; Start 10/10/18 at 00:30 Albuterol/ Ipratropium (Duoneb) 3 ml Q4H RESP THERAPY PRN HHN wheezing; Start 10/11/18 at 12:00 Metoprolol Succinate (Toprol Xl) 12.5 mg DAILY PO Last administered on 10/12/18at 08:44; Admin Dose 12.5 MG; Start 10/12/18 at 09:00 Insulin Glargine (Lantus) 10 units DAILY@0800 SC Last administered on 10/12/18 08:39; Admin Dose 10 UNITS; Start 10/12/18 at 08:00 Alteplase, Recombinant (Cathflo (Activase)) 2 mg MAY REPEAT X1 PRN CATHETER IF CATHETER REMAINS OCCULUDED; Start 10/11/18 at 14:30 Guaifenesin/ Dextromethorphan (Robitussin Dm Liquid Cup) 5 ml Q4H PRN PO coughing Last administered on 10/11/18at 17:39; Admin Dose 5 ML; Start 10/11/18 at 17:30 ARTIE MARADIAGA MD Oct 12, 2018 15:05
[2018-10-12 16:00] VITALS: BP 98/47
[2018-10-12] MEDS: ATORVASTATIN 20 MG TAB PO SCH (21:07)
[2018-10-12] MEDS: AMITRIPTYLINE 10 MG TAB PO SCH (21:07)
[2018-10-12 21:46] VITALS: BP 85/42; PULSE 88; RESP 18
[2018-10-12 23:30] VITALS: BP 92/52; RESP 18
[2018-10-13 00:26] VITALS: BP 135/52; RESP 19
[2018-10-13 02:05] VITALS: BP 100/51; PULSE 81; RESP 16
[2018-10-13] MEDS: GUAIFENESIN/DM 5ML CUP PO PRN ×2 (04:51→06:11)
[2018-10-13] MEDS: LEVOTHYROXINE 112 MCG TAB PO SCH (06:11)
[2018-10-13] MEDS: INSULIN ASPART [NOVOLOG] 3 ML PEN SC SCH ×6 (07:57→17:29)
[2018-10-13] MEDS: INSULIN GLARGINE [LANTus] (100 UNITS/ML) SYG SC SCH (07:59)
[2018-10-13 08:20] VITALS: BP 98/45; PULSE 86; RESP 18
[2018-10-13] MEDS: FUROSEMIDE 40 MG TAB PO SCH (08:45)
[2018-10-13] MEDS: ASPIRIN (EC) 81 MG TAB PO SCH (08:45)
[2018-10-13] MEDS: ENOXAPARIN 40 MG/0.4 ML SYG SC SCH (08:45)
[2018-10-13] MEDS: TICAGRELOR 90 MG TABLET PO SCH (08:46)
[2018-10-13] MEDS: METOPROLOL (XL) 25 MG TAB PO SCH (08:47)
[2018-10-13] MEDS ORDERED: AZITHROMYCIN 500 MG TAB PO SCH (09:00)
[2018-10-13] MEDS: PROMETHAZINE/CODEINE 5ML CUP PO PRN ×2 (09:45→15:36)
--- NOTE | 2018-10-13 10:57 | PDOCDIS ---
Discharge Instructions DIAGNOSIS Discharge Diagnosis DKA CONDITION [id number] Patient Condition: [id number] Stable FOLLOW UP/APPOINTMENTS Follow-up Plan Continue taking your insulin as prescribed. You must take this everyday. Make an appointment to see a lung doctor if you continue to have frequent coughing. It is very important to stop smoking TARA VÁZQUEZ MD October 13, 2018 10:57
[2018-10-13] MEDS: CEFTRIAXONE 1 GM/50 ML (PMX) 50 ML IVPB SCH (12:18)
--- NOTE | 2018-10-13 13:17 | DS ---
Date/Time of Note Date/Time of Note DATE: 10/13/18 TIME: 13:16 Discharge Summary Admission/Discharge Info Admit Date/Time Oct 07, 2018 at 09:53 Discharge Date/Time Discharge Diagnosis DKA Patient Condition: Stable Hospital Course 58 yo female with hypertension, CAD, DMI presneted with DKA She was started on insulin drip and DKA resolved. She was then transitioned to basal bolus insulin. She did have a couple episodes of hypoglycemia and her insulin regimen had to be adjusted accordingly. She worked with PT for a few days to agree to regain strength prior to discharge. She did remain a bit weak and subacute rehab was offered but the patient declined and is requesting to be discharged back home. She had a profound productive cough consistent with chronic smoking. She was given a few days of antibiotics for this but these were held at discharge as there was no evidence of pneumonia Home Meds Active Scripts Albuterol Sulfate* (Proair HFA*) 8.5 Gm Hfa.aer.ad, 2 PUFF INH Q4, #1 INHALER Prov:SANJIV OLIVARES DO 10/04/18 Dextromethorphan Hb-Promethazine Hcl* (Promethazine DM* Syrup) 473 Ml Syrup, 5 ML PO Q6 PRN for COUGH, #50 ML Prov:SANJIV OLIVARES DO 10/04/18 Hydrocortisone Acetate (Anusol-Hc) 25 Mg Supp.rect, 1 SUPP WI BID PRN for HEMORROID PAIN/ITCHING, #20 SUPP.RECT Prov:RUTHIE GRULLON MD 08/29/18 Reported Medications Insulin Lispro (Humalog Kwikpen) 200 Unit/1 Ml Insuln.pen, 0 SQ AC H, EA SLIDING SCALE 08/29/18 Insulin Glargine* (Lantus*) 100 Unit/Ml Soln, 25 UNIT SC QHS, #1 VIAL 08/29/18 Atorvastatin Calcium* (Atorvastatin Calcium*) 20 Mg Tablet, 20 MG PO QHS, #30 TAB 08/29/18 Tramadol Hcl* (Ultram*) 50 Mg Tablet, 50 MG PO Q6H PRN for PAIN, TAB 08/29/18 Amitriptyline Hcl* (Amitriptyline Hcl*) 10 Mg Tablet, 10 MG PO QHS, #30 TAB 08/29/18 Levothyroxine Sodium* (Synthroid*) 112 Mcg Tablet, 112 MCG PO BEFORE BREAKFAST, #30 TAB 08/29/18 Losartan Potassium* (Cozaar*) 25 Mg Tablet, 25 MG PO DAILY, #30 TAB 08/29/18 Furosemide* (Furosemide*) 40 Mg Tablet, 40 MG PO DAILY, TAB 08/29/18 Aspirin (Low Dose Aspirin) 81 Mg Tablet.dr, 81 MG PO DAILY, #30 TAB 08/29/18 Ticagrelor* (Brilinta*) 90 Mg Tablet, 90 MG PO Q12, TAB 08/29/18 Metoprolol Tartrate* (Lopressor*) 25 Mg Tab, 25 MG PO BID, #60 TAB 08/29/18 Discontinued Reported Medications Gabapentin* (Gabapentin*) 600 Mg Tablet, 600 MG PO TID, #90 TAB 08/29/18 Gabapentin* (Gabapentin*) 300 Mg Capsule, 900 MG PO QHS, #270 CAP 08/29/18 Diltiazem Hcl* (Cardizem SR*) 60 Mg Capsr, 60 MG PO Q12, #60 CAP 08/29/18 Discontinued Scripts Azithromycin* (Zithromax*) 250 Mg Tablet, 250 MG PO .ROMERO DIRECTED, #6 TAB TAKE 500 MG (2 TABS) THE FIRST DAY THEN 250 MG (1 TAB) DAYS 2-5 Prov:SANJIV OLIVARES DO 10/04/18 Follow-up Plan Continue taking your insulin as prescribed. You must take this everyday. Make an appointment to see a lung doctor if you continue to have frequent coughing. It is very important to stop smoking Primary Care Provider Keanu Adames Pending Labs Laboratory Tests Test 10/12/18 17:25 10/12/18 21:05 10/13/18 02:00 10/13/18 07:55 Bedside 92 80 183 327 Glucose mg/dL (70-220) mg/dL (70-220) mg/dL (70-220) mg/dL (70-220) Test 10/13/18 09:48 10/13/18 12:16 Bedside 188 92 Glucose mg/dL (70-220) mg/dL (70-220) TARA VÁZQUEZ MD October 13, 2018 13:17
[2018-10-13 15:17] VITALS: BP 92/47; PULSE 9; RESP 18
--- NOTE | 2018-10-13 17:17 | CONS ---
Assessment/Plan Assessment/Plan Hospital Course (Demo Recall) IMPRESSION: 1. Hypertension-on lower end 2. Abnormal electrocardiogram, assess for acute coronary syndrome. 3. History of coronary artery disease, status post PTCA and stent placement artery to right coronary artery in 08/29/2018 with only chest pain with cough at this time. 4. History of coronary artery bypass graft surgery in 01/2017. 5. Diabetic ketoacidosis-improved overall 6. Chronic obstructive pulmonary disease with ongoing cough. 7. Possible additional upper respiratory infection. 8. Hypothyroidism. 9. Dyslipidemia. Recc -Now on med-surg -Continue asa/brilinta -LOsartan d/c'd likley due to low BP -Continue low dose BB as tolerated -Continue statin -Contineu lasix PO daily and follow volume status -Continue abx's and bronchodilators -Follow BS and adjust insulin as necessary Consultation Date/Type/Reason Admit Date/Time Oct 07, 2018 at 09:53 Initial Consult Date 10/08/18 Type of Consult Cardiology Reason for Consultation cardiomyopathy/stents Requesting Provider: AILEEN SHAVER Date/Time of Note DATE: 10/13/18 TIME: 17:14 Exam/Review of Systems Vital Signs Vitals Vital Signs Date Temp Pulse Resp B/P (MAP) Pulse Ox O2 O2 Flow FiO2 Time Delivery Rate 10/13/18 98.3 9 18 92/47 (62) 96 Room Air 15:17 10/10/18 21 17:23 Intake and Output 10/12/18 10/12/18 10/13/18 1515:00 23:00 07:00 IntakeIntake Total 780 ml 320 ml OutputOutput Total 1800 ml 500 ml BalanceBalance -1020 ml -180 ml Exam Exam Review of Systems: CONSTITUTIONAL: No fevers, chills. PULMONARY:ongoing cough CARDIOVASCULAR: No chest pain/palpitations GASTROINTESTINAL: No nausea/vomiting. GENITOURINARY: No hematuria/dysuria. MUSCULOSKELETAL: No myagias/arthalgias. PSYCHIATRIC: The patient denies depression. NEUROLOGIC: No weakness Constitutional: alert Psych: no complaints Head: normocephalic ENMT: mucosa pink and moist Neck: supple, jvd (9 cm water) Respiratory: diminished breath sounds (at bases/B), wheezing (mild exp) Cardiovascular: regular rate and rhythm Gastrointestinal: soft, non-tender Musculoskeletal: muscle tone (normal) Extremities: edema (none) 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: other (No focal deficits) Labs Result Diagram: 10/10/18 0554 10/11/18 1210 Results 24hrs Laboratory Tests Test 10/12/18 17:25 10/12/18 21:05 10/13/18 02:00 10/13/18 07:55 Bedside Glucose 92 80 183 327 H Test 10/13/18 09:48 10/13/18 12:16 Bedside Glucose 188 92 Medications Medications Current Medications IV Flush (NS 10 ml) 10 ml PRN PRN IV IV PROTOCOL; Start 10/07/18 at 16:00 Amitriptyline HCl (Elavil) 10 mg QHS PO Last administered on 10/12/18 21:07; Admin Dose 10 MG; Start 10/07/18 at 21:00 Aspirin (Halfprin) 81 mg DAILY PO Last administered on 10/13/18 08:45; Admin Dose 81 MG; Start 10/08/18 at 09:00 Atorvastatin Calcium (Lipitor) 20 mg QHS PO Last administered on 10/12/18 21:07; Admin Dose 20 MG; Start 10/07/18 at 21:00 Furosemide (Lasix) 40 mg DAILY PO Last administered on 10/13/18 08:45; Admin Dose 40 MG; Start 10/08/18 at 09:00 Levothyroxine Sodium (Synthroid) 112 mcg BEFORE BREAKFAST PO Last administered on 10/13/18 06:11; Admin Dose 112 MCG; Start 10/08/18 at 07:00 Ticagrelor (Brilinta) 90 mg Q12 PO Last administered on 10/13/18 08:46; Admin Dose 90 MG; Start 10/07/18 at 21:00 IV Flush (NS 3 ml) 3 ml PER PROTOCOL IV ; Start 10/07/18 at 16:30 Ondansetron HCl (Zofran Inj) 4 mg Q6H PRN IV NAUSEA/VOMITING Last administered on 10/09/18 14:31; Admin Dose 4 MG; Start 10/07/18 at 16:30 Acetaminophen (Tylenol Tab) 650 mg Q6H PRN PO .PAIN 1-3 OR TEMP Last administered on 10/10/18 12:03; Admin Dose 650 MG; Start 10/07/18 at 16:30 Acetaminophen/ Hydrocodone Bitart ([place] (5/325)) 1 tab Q6H PRN PO .MOD PAIN 4- 6; Start 10/07/18 at 16:30 Morphine Sulfate (morphine) 2 mg Q4H PRN IV .SEVERE PAIN 7-10; Start 10/07/18 at 16:30 Enoxaparin Sodium (Lovenox) 40 mg DAILY SC Last administered on 10/13/18at 08:45; Admin Dose 40 MG; Start 10/08/18 at 09:00 Promethazine HCl/ Codeine (Phenergan/ Codeine) 5 ml Q4H PRN PO COUGH Last administered on 10/13/18at 15:36; Admin Dose 5 ML; Start 10/07/18 at 17:30 Insulin Aspart (Novolog Insulin Pen) NOVOLOG *MODERATE* ALGORITHM WITH MEALS BEDTIME SC Last administered on 10/13/18at 07:58; Admin Dose 10 UNIT; Start 10/08/18 at 07:35 Miscellaneous Information 1 ea NOTE XX ; Start 10/08/18 at 03:00 Glucose (Glutose) 15 gm Q15M PRN PO DECREASED GLUCOSE; Start 10/08/18 at 03:00 Glucose (Glutose) 22.5 gm Q15M PRN PO DECREASED GLUCOSE; Start 10/08/18 at 03:00 Dextrose (D50w Syringe) 25 ml Q15M PRN IV DECREASED GLUCOSE; Start 10/08/18 at 03:00 Dextrose (D50w Syringe) 50 ml Q15M PRN IV DECREASED GLUCOSE; Start 10/08/18 at 03:00 Glucagon (Glucagen) 1 mg Q15M PRN IM DECREASED GLUCOSE; Start 10/08/18 at 03:00 Glucose (Glutose) 15 gm Q15M PRN BUCCAL DECREASED GLUCOSE; Start 10/08/18 at 03:00 Ceftriaxone Sodium 50 ml @ 100 mls/hr Q24H IVPB Last administered on 10/13/18at 12:18; Admin Dose 100 MLS/HR; Start 10/09/18 at 12:30 Insulin Aspart (Novolog Insulin Pen) 10 unit WITH MEALS SC Last administered on 10/13/18at 12:17; Admin Dose 10 UNIT; Start 10/09/18 at 17:35 Phenol (Cepastat Lozenge) 1 lozenge Q1H PRN MT COUGH Last administered on 10/11/18at 20:40; Admin Dose 1 LOZENGE; Start 10/10/18 at 00:30 Albuterol/ Ipratropium (Duoneb) 3 ml Q4H RESP THERAPY PRN HHN wheezing; Start 10/11/18 at 12:00 Metoprolol Succinate (Toprol Xl) 12.5 mg DAILY PO Last administered on 10/12/18a t 08:44; Admin Dose 12.5 MG; Start 10/12/18 at 09:00 Insulin Glargine (Lantus) 10 units DAILY@0800 SC Last administered on 10/13/18at 07:59; Admin Dose 10 UNITS; Start 10/12/18 at 08:00 Alteplase, Recombinant (Cathflo (Activase)) 2 mg MAY REPEAT X1 PRN CATHETER IF CATHETER REMAINS OCCULUDED; Start 10/11/18 at 14:30 Guaifenesin/ Dextromethorphan (Robitussin Dm Liquid Cup) 5 ml Q4H PRN PO coughing Last administered on 10/13/18at 06:11; Admin Dose 5 ML; Start 10/11/18 at 17:30 Azithromycin (Zithromax) 500 mg DAILY PO Last administered on 10/13/18at 08:47; Admin Dose 500 MG; Start 10/13/18 at 09:00 RHONDA PENA October 13, 2018 17:17
== END 2018-10-13 18:41 | disposition home or self-care (01) | DRG 638 ==
LOC: E/R 07:24 → ICU 09:53 → PP2 10-08 18:01
PROVIDERS: ADMIT Internal Medicine; ATTEND Internal Medicine
PROC: 02HV33Z Insertion of Infusion Device into Superior Vena Cava, Percutaneous Approach (ICD-10-PCS; principal; 2018-10-07)
DX: E10.10 Type 1 diabetes mellitus with ketoacidosis without coma (principal); E87.0 Hyperosmolality and hypernatremia; J44.1 Chronic obstructive pulmonary disease with (acute) exacerbation; I42.9 Cardiomyopathy, unspecified; R65.10 Systemic inflammatory response syndrome (SIRS) of non-infectious origin without acute organ dysfunction; I25.10 Atherosclerotic heart disease of native coronary artery without angina pectoris; E10.649 Type 1 diabetes mellitus with hypoglycemia without coma; I10 Essential (primary) hypertension; E03.9 Hypothyroidism, unspecified; E78.5 Hyperlipidemia, unspecified; F17.200 Nicotine dependence, unspecified, uncomplicated; D64.9 Anemia, unspecified; E83.39 Other disorders of phosphorus metabolism; E87.6 Hypokalemia; E10.43 Type 1 diabetes mellitus with diabetic autonomic (poly)neuropathy; I95.2 Hypotension due to drugs; Z95.5 Presence of coronary angioplasty implant and graft; Z95.1 Presence of aortocoronary bypass graft
CPT/HCPCS: 36415; 36569; 36600; 71045; 76937; 80048; 80053; 80061; 81001; 81003; 82043; 82550; 82553; 82728; 82803; 82947; 82962; 83036; 83540; 83605; 83735; 83935; 84100; 84155; 84300; 84484; 85025; 85610; 85730; 86703; 86803; 87081; 87086; 87340; 93005; 94640; 94664; 96361; 96374; 96375; 97110; 97116; 97161; 97530; J0456; J0692; J0696; J1650; J1815; J1940; J2060; J2405; J2997; J3370; J3480; J7030; J7050; J7120

== ENCOUNTER 2018-10-27 12:46 | Observation (INO) | payer OTHER ==
[~2018-10-27] VITALS: Ht 154.9 cm; Wt 59.6 kg
[~2018-10-27 12:46] MED LIST changes: -AZIT250T PO; -CARSR60 PO; -GABA-526 PO; -GABA300C16 PO
[2018-10-27] MEDS ORDERED: morphine 2 MG INJ IV STA (12:59)
[2018-10-27] MEDS ORDERED: CARSR60 PO (14:35)
--- NOTE | 2018-10-27 15:27 | ERD ---
ER Documentation Chief Complaint Chief Complaint vertigo-dizziness, fall with right shoulder pain. no head injury HPI 58-year-old female presents by paramedics after syncopal episode. Patient states that she is having multiple episodes of nonspecific lightheadedness and dizziness number of which have resulted in falls and passing out. Today, she fell after an episode as above and fell onto her right shoulder complaining of right shoulder pain. She does not recall hitting her head. She reports no focal weakness or numbness. With the weakness, she reports no acute headache, seizure activity or other neurologic symptoms. I have reviewed the motor vehicle emissions inspector pre-hospital care. Pre-hospital vital signs were reviewed. Pre-hospital diagnostic tests were reviewed. Upon arrival, patient states that she feels significantly weak and lightheaded. She reports no chest pain or palpitations. She reports no fevers or chills. ROS All systems reviewed and are negative except as per history of present illness. Medications Home Meds Active Scripts Albuterol Sulfate* (Proair HFA*) 8.5 Gm Hfa.aer.ad, 2 PUFF INH Q4, #1 INHALER Prov:SANJIV OLIVARES DO 10/04/18 Reported Medications Diltiazem Hcl* (Cardizem SR*) 60 Mg Capsr, 60 MG PO Q12, #60 CAP 10/27/18 Insulin Lispro (Humalog Kwikpen) 200 Unit/1 Ml Insuln.pen, 0 SQ AC H, EA SLIDING SCALE 08/29/18 Insulin Glargine* (Lantus*) 100 Unit/Ml Soln, 25 UNIT SC QHS, #1 VIAL 08/29/18 Atorvastatin Calcium* (Atorvastatin Calcium*) 20 Mg Tablet, 20 MG PO QHS, #30 TAB 08/29/18 Tramadol Hcl* (Ultram*) 50 Mg Tablet, 50 MG PO Q6H PRN for PAIN, TAB 08/29/18 Amitriptyline Hcl* (Amitriptyline Hcl*) 10 Mg Tablet, 10 MG PO QHS, #30 TAB 08/29/18 Levothyroxine Sodium* (Synthroid*) 112 Mcg Tablet, 112 MCG PO BEFORE BREAKFAST, #30 TAB 08/29/18 Losartan Potassium* (Cozaar*) 25 Mg Tablet, 25 MG PO DAILY, #30 TAB 08/29/18 Furosemide* (Furosemide*) 40 Mg Tablet, 40 MG PO DAILY, TAB 08/29/18 Aspirin (Low Dose Aspirin) 81 Mg Tablet.dr, 81 MG PO DAILY, #30 TAB 08/29/18 Ticagrelor* (Brilinta*) 90 Mg Tablet, 90 MG PO Q12, TAB 08/29/18 Metoprolol Tartrate* (Lopressor*) 25 Mg Tab, 25 MG PO BID, #60 TAB 08/29/18 Discontinued Scripts Dextromethorphan Hb-Promethazine Hcl* (Promethazine DM* Syrup) 473 Ml Syrup, 5 ML PO Q6 PRN for COUGH, #50 ML Prov:SANJIV OLIVARES DO 10/04/18 Hydrocortisone Acetate (Anusol-Hc) 25 Mg Supp.rect, 1 SUPP OR BID PRN for HEMORROID PAIN/ITCHING, #20 SUPP.RECT Prov:RUTHIE GRULLON MD 08/29/18 Allergies Allergies: Coded Allergies: ibuprofen (Verified Allergy, Mild, VOMITING,DIZZINESS, 10/27/18) Fish Containing Products (Verified Allergy, Unknown, 10/27/18) PMhx/Soc History of Surgery: Yes (CABG) Anesthesia Reaction: No Hx 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 Disorder: No Hx Respiratory Disorders: Yes (BRONCHITITS, COPD) Hx Cardiac Disorders: Yes (CAD) Hx Psychiatric Problems: No Hx Miscellaneous Medical Probl: Yes (DMI, DKA, COPD with persistent cough and persistent tobacco abuse, CAD S/P ) Hx Alcohol Use: No Hx Substance Use: No Hx Tobacco Use: Yes Smoking Status: Current every day smoker FmHx Noncontributory for chief complaint Physical Exam Vitals Vital Signs Date Temp Pulse Resp B/P (MAP) Pulse Ox O2 O2 Flow FiO2 Time Delivery Rate 10/27/18 99.8 94 18 109/54 100 12:50 (72) Physical Exam GENERAL: Frail, elderly female in no acute distress HEENT: Pupils equal, round, and reactive to light. EOMI. There is no scleral icterus. NECK: C-spine is soft and supple, there is no meningismus. There is no cervical lymphadenopathy. LUNGS: Clear to auscultation bilaterally. There are no rales, wheezes or rhonchi. HEART: Regular rate and rhythm, no murmurs, clicks, rubs or gallops. ABDOMEN: Soft, non-tender, non-distended. There are bowel sounds in all four quadrants. No rebound or guarding. EXTREMITIES: Nonspecific tenderness to the right shoulder area with no gross deformity. The remainder of extremities appear to be normal and atraumatic. NEURO: The patient moves all four extremities with 5/5 strength. Cranial nerves II - XII are intact. Normal gait. Alert and oriented SKIN: There is no apparent rash or petechiae. HEME/LYMPHATIC: There is no evidence of excessive bruising or lymphedema. PSYCHIATRIC: The patient does not appear anxious or depressed. Result Diagram: 10/27/18 1337 10/27/18 1337 Results 24 hrs Laboratory Tests Test 10/27/18 13:37 10/27/18 13:58 White Blood Count 7.4 10^3/ul Red Blood Count 3.55 10^6/ul Hemoglobin 9.1 g/dl Hematocrit 29.7 % Mean Corpuscular Volume 83.7 fl Mean Corpuscular Hemoglobin 25.6 pg Mean Corpuscular Hemoglobin Concent 30.6 g/dl Red Cell Distribution Width 13.5 % Platelet Count 245 10^3/UL Mean Platelet Volume 9.5 fl Immature Granulocytes % 0.100 % Neutrophils % 68.5 % Lymphocytes % 20.8 % Monocytes % 6.5 % Eosinophils % 3.1 % Basophils % 1.0 % Nucleated Red Blood Cells % 0.0 /100WBC Immature Granulocytes # 0.010 10^3/ul Neutrophils # 5.0 10^3/ul Lymphocytes # 1.5 10^3/ul Monocytes # 0.5 10^3/ul Eosinophils # 0.2 10^3/ul Basophils # 0.1 10^3/ul Nucleated Red Blood Cells # 0.0 10^3/ul Sodium Level 136 mmol/L Potassium Level 4.4 mmol/L Chloride Level 100 mmol/L Carbon Dioxide Level 25 mmol/L Anion Gap 11 Blood Urea Nitrogen 16 mg/dl Creatinine 0.77 mg/dl Est Glomerular Filtrat Rate mL/min > 60 mL/min Glucose Level 264 mg/dl Calcium Level 9.0 mg/dl Troponin I < 0.012 ng/ml Bedside Glucose 250 mg/dL Current Medications Medications Dose Sig/Mo Start Time Status Last (Trade) Ordered Route PRN Stop Time Admin Dose Reason Admin Morphine 2 mg ONCE STAT 10/27/18 DC 10/27/18 Sulfate IV 12:59 14:05 (morphine) 10/27/18 13:00 Procedures/MDM Patient was taken to a room, seen and evaluated. Comfort measures were initiated. Diagnostic tests were ordered and reviewed. 3 LEAD RHYTHM STRIP: Normal sinus rhythm without ectopy EK lead EKG reviewed by myself: Normal Sinus Rhythm Normal [place] and intervals Nonspecific ST and T wave changes without ST elevation Impression: Nonspecific EKG RADIOLOGY: Reviewed with the radiologist CONSULTATION: Hospitalist was notified for admission REEVALUATION: 1525: Diagnostic tests were appreciated. Patient remained hemodynamically stable but very weak. Arrangements were made for admission MEDICAL DECISION MAKIN-year-old female presents with generalized weakness resulting in a syncopal episode. Diagnostic work-up focused on cardiac, infectious and other significant causes. At this time, the most likely cause of her symptoms seem to be medication related as she has no obvious arrhythmia, cardiac ischemia, infection, anemia or electrolyte concerns. Overall, she appears to be resting quietly, but very weak and I do not feel safe to discharge . She will be admitted for further diagnostic observation for the possibility of syncope including cardiac monitoring. She will also require further prolonged observation for what appears to be adverse drug reactions from her medications. Departure Diagnosis: Primary Impression: Syncope Additional Impression: Polypharmacy Condition: JAYLON Ramirez October 27, 2018 15:27
[2018-10-27] MEDS ORDERED: ACETAMINOPHEN 325 MG TAB PO PRN (16:00)
[2018-10-27] MEDS ORDERED: ONDANSETRON 4 MG INJ IV PRN (16:00)
[2018-10-27] MEDS ORDERED: NACL 0.9% 3 ML SYG IV SCH (16:30)
[2018-10-27] MEDS ORDERED: DEXTROSE 50% 50 ML SYRINGE IV PRN ×2 (16:30)
[2018-10-27] MEDS ORDERED: GLUCOSE GEL 15 GRAM TUBE BUCCAL PRN (16:30)
[2018-10-27] MEDS ORDERED: GLUCOSE GEL 15 GRAM TUBE PO PRN ×2 (16:30)
[2018-10-27] MEDS ORDERED: GLUCAGON 1 MG INJ IM PRN (16:30)
--- NOTE | 2018-10-27 16:49 | HP ---
Date/Time of Note Date/Time of Note DATE: 10/27/18 TIME: 16:40 Assessment/Plan VTE Prophylaxis SCD applied (from Nsg): Yes Pharmacological prophylaxis: heparin Lines/Catheters IV Catheter Type (from Nrsg): Saline Lock Assessment/Plan Hospital Course 58 yo female with h/o hypertension, CAD, DMII, tobacco use d/o, COPD who present s with syncope - Currently hypotensive, i suspect this is excessive medication use leading to syncope - WIll scale back antihypertensive. Hold lasix DMII: - Hyperglycemia - Basal/bolus insulin COPD: - Cousneled on cessation CAD: - Continue antiplatelets, statin Result Diagram: 10/27/18 1337 10/27/18 1337 Results 24hrs Laboratory Tests Test 10/27/18 13:37 10/27/18 13:58 White Blood Count 7.4 Red Blood Count 3.55 L Hemoglobin 9.1 L Hematocrit 29.7 L Mean Corpuscular Volume 83.7 Mean Corpuscular Hemoglobin 25.6 L Mean Corpuscular Hemoglobin Concent 30.6 L Red Cell Distribution Width 13.5 Platelet Count 245 Mean Platelet Volume 9.5 Immature Granulocytes % 0.100 Neutrophils % 68.5 Lymphocytes % 20.8 Monocytes % 6.5 Eosinophils % 3.1 Basophils % 1.0 Nucleated Red Blood Cells % 0.0 Immature Granulocytes # 0.010 Neutrophils # 5.0 Lymphocytes # 1.5 Monocytes # 0.5 Eosinophils # 0.2 Basophils # 0.1 Nucleated Red Blood Cells # 0.0 Sodium Level 136 Potassium Level 4.4 Chloride Level 100 Carbon Dioxide Level 25 Anion Gap 11 Blood Urea Nitrogen 16 Creatinine 0.77 Est Glomerular Filtrat Rate mL/min > 60 Glucose Level 264 H Calcium Level 9.0 Troponin I < 0.012 Bedside Glucose 250 H HPI/ROS Admit Date/Time Admit Date/Time Hx of Present Illness 58 yo female with h/o CAD, DMII, COPD, HTN who presents with syncope Patient recently discharged after bout of pneumonia. She is on numerous anithypertensives adn diuretics. [place] [facility], felt faint and then syncopized. Currently feels normal. No CP, no palpitations, no SOB. Current only complaint is of pain in her shoulder where she hit herself, ROS Constitutional: no complaints, improved Eyes: no complaints ENT: no complaints Respiratory: no complaints Cardiovascular: no complaints Gastrointestinal: no complaints Genitourinary: no complaints Musculoskeletal: no complaints Skin: no complaints Neurologic: no complaints Endocrine: no complaints Lymphatic: no complaints Psychological: no complaints, nl mood/affect Immunologic: no complaints PMH/Family/Social Past Medical History Medical History: no pertinent history Medications Current Medications Ondansetron HCl (Zofran Inj) 4 mg ER BRIDGE PRN IV NAUSEA/VOMITING; Start 10/27/18 at 16:00; Stop 10/28/18 at 15:59 Acetaminophen (Tylenol Tab) 650 mg ER BRIDGE PRN PO .MILD PAIN 1-3 OR TEMP; Start 10/27/18 at 16:00; Stop 10/28/18 at 15:59 IV Flush (NS 3 ml) 3 ml PER PROTOCOL IV ; Start 10/27/18 at 16:30 Insulin Glargine (Lantus) 12 units DAILY@2000 SC ; Start 10/27/18 at 20:00 Insulin Aspart (Novolog Insulin Pen) 4 unit WITH MEALS SC ; Start 10/27/18 at 18:00 Insulin Aspart (Novolog Insulin Pen) NOVOLOG *MILD* ALGORITHM WITH MEALS BEDTIME SC ; Start 10/27/18 at 18:00 Miscellaneous Information 1 ea NOTE XX ; Start 10/27/18 at 16:30 Glucose (Glutose) 15 gm Q15M PRN PO DECREASED GLUCOSE; Start 10/27/18 at 16:30 Glucose (Glutose) 22.5 gm Q15M PRN PO DECREASED GLUCOSE; Start 10/27/18 at 16:30 Dextrose (D50w Syringe) 25 ml Q15M PRN IV DECREASED GLUCOSE; Start 10/27/18 at 16:30 Dextrose (D50w Syringe) 50 ml Q15M PRN IV DECREASED GLUCOSE; Start 10/27/18 at 16:30 Glucagon (Glucagen) 1 mg Q15M PRN IM DECREASED GLUCOSE; Start 10/27/18 at 16:30 Glucose (Glutose) 15 gm Q15M PRN BUCCAL DECREASED GLUCOSE; Start 10/27/18 at 16:30 Coded Allergies: ibuprofen (Verified Allergy, Mild, VOMITING,DIZZINESS, 10/27/18) Fish Containing Products (Verified Allergy, Unknown, 10/27/18) Past Surgical History Past Surgical Hx: no surgical history, angioplasty, coronary bypass surgery, other Family History Significant Family History: cancer Social History Alcohol Use: none Smoking Status: Current every day smoker Drug Use: none Exam/Review of Systems Vital Signs Vitals Vital Signs Date Temp Pulse Resp B/P (MAP) Pulse Ox O2 O2 Flow FiO2 Time Delivery Rate 10/27/18 99.8 94 18 109/54 100 12:50 (72) Exam Constitutional: alert, oriented, well developed Psych: no complaints, nl mood/affect Head: normocephalic, atraumatic Eyes: nl conjunctiva, EOMI, nl lids, nl sclera, PERRL ENMT: nl external ears & nose, nl lips & teeth, nl nasal mucosa & septum Neck: supple, non-tender Respiratory: clear to auscultation, normal air movement Cardiovascular: regular rate and rhythm, nl pulses Gastrointestinal: soft, nl liver, spleen, non-tender Musculoskeletal: nl extremities to inspection Extremities: normal pulses 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: BUTCHER FISH II-XII intact, nl mental status, nl speech, nl strength Skin: nl turgor; No rash or lesions Lymph: nl lymph nodes TARA VÁZQUEZ MD October 27, 2018 16:49
[2018-10-27] MEDS ORDERED: ALBUTEROL HFA 8 GM INHALER INH SCH (17:00)
[2018-10-27] MEDS: INSULIN ASPART [NOVOLOG] 3 ML PEN SC SCH ×2 (18:00→21:00)
[2018-10-27 20:00] VITALS: PULSE 77
[2018-10-27] MEDS ORDERED: INSULIN GLARGINE [LANTus] (100 UNITS/ML) SYG SC SCH ×2 (20:00→21:00)
[2018-10-27 20:17] VITALS: Ht 154.9 cm; Wt 59.6 kg
[2018-10-27 20:38] VITALS: BP 105/50; PULSE 78; RESP 18
[2018-10-27] MEDS: ALBUTEROL HFA 8 GM INHALER INH SCH (21:00)
[2018-10-27] MEDS: ATORVASTATIN 20 MG TAB PO SCH (21:20)
[2018-10-27] MEDS: traMADol 50 MG TAB PO PRN (21:21)
[2018-10-27] MEDS: METOPROLOL 25 MG TAB PO SCH (21:21)
[2018-10-27] MEDS: TICAGRELOR 90 MG TABLET PO SCH (21:27)
[2018-10-28] VITALS (9 sets, daily range): BP systolic 93–121; BP diastolic 42–57; PULSE 54–77; RESP 16–22
[2018-10-28] MEDS: ALBUTEROL HFA 8 GM INHALER INH SCH ×7 (01:00→20:35)
[2018-10-28] MEDS: AMITRIPTYLINE 10 MG TAB PO SCH ×2 (01:06→20:27)
[2018-10-28] MEDS: LEVOTHYROXINE 112 MCG TAB PO SCH (06:35)
[2018-10-28] MEDS: INSULIN ASPART [NOVOLOG] 3 ML PEN SC SCH ×7 (07:55→20:34)
[2018-10-28] MEDS: METOPROLOL 25 MG TAB PO SCH ×2 (08:21→20:27)
[2018-10-28] MEDS: ASPIRIN (EC) 81 MG TAB PO SCH (08:21)
[2018-10-28] MEDS: TICAGRELOR 90 MG TABLET PO SCH ×2 (10:22→20:34)
--- NOTE | 2018-10-28 13:13 | DS ---
Date/Time of Note Date/Time of Note DATE: 10/28/18 TIME: 13:12 Discharge Summary Admission/Discharge Info Admit Date/Time October 27, 2018 at 15:51 Discharge Date/Time Discharge Diagnosis Syncope Patient Condition: Stable Hx of Present Illness 58 yo female with h/o CAD, DMII, COPD, HTN who presents with syncope Patient recently discharged after bout of pneumonia. She is on numerous anithypertensives adn diuretics. [place] [facility], felt faint and then syncopized. Currently feels normal. No CP, no palpitations, no SOB. Current only complaint is of pain in her shoulder where she hit herself, Hospital Course 58 yo female with h/o hypertension, CAD, DMII, tobacco use d/o, COPD who p resents with syncope. She was found to be hypotensive, i suspected this was from excessive medication use leading to syncope. I held her diltiazem and lasix. She remained slightly low BP but able to ambulated without dizziness. She was given basal/bolus insulin for her DMII wiht and episode of hypoglycemia which was corrected. She was countinued on DAPT for CAD. Home Meds Active Scripts Albuterol Sulfate* (Proair HFA*) 8.5 Gm Hfa.aer.ad, 2 PUFF INH Q4, #1 INHALER Prov:SANJIV OLIVARES DO 10/04/18 Reported Medications Diltiazem Hcl* (Cardizem SR*) 60 Mg Capsr, 60 MG PO Q12, #60 CAP 10/27/18 Insulin Lispro (Humalog Kwikpen) 200 Unit/1 Ml Insuln.pen, 0 SQ AC H, EA SLIDING SCALE 08/29/18 Insulin Glargine* (Lantus*) 100 Unit/Ml Soln, 25 UNIT SC QHS, #1 VIAL 08/29/18 Atorvastatin Calcium* (Atorvastatin Calcium*) 20 Mg Tablet, 20 MG PO QHS, #30 TAB 08/29/18 Tramadol Hcl* (Ultram*) 50 Mg Tablet, 50 MG PO Q6H PRN for PAIN, TAB 08/29/18 Amitriptyline Hcl* (Amitriptyline Hcl*) 10 Mg Tablet, 10 MG PO QHS, #30 TAB 08/29/18 Levothyroxine Sodium* (Synthroid*) 112 Mcg Tablet, 112 MCG PO BEFORE BREAKFAST, #30 TAB 08/29/18 Losartan Potassium* (Cozaar*) 25 Mg Tablet, 25 MG PO DAILY, #30 TAB 08/29/18 Furosemide* (Furosemide*) 40 Mg Tablet, 40 MG PO DAILY, TAB 08/29/18 Aspirin (Low Dose Aspirin) 81 Mg Tablet.dr, 81 MG PO DAILY, #30 TAB 08/29/18 Ticagrelor* (Brilinta*) 90 Mg Tablet, 90 MG PO Q12, TAB 08/29/18 Metoprolol Tartrate* (Lopressor*) 25 Mg Tab, 25 MG PO BID, #60 TAB 08/29/18 Discontinued Scripts Dextromethorphan Hb-Promethazine Hcl* (Promethazine DM* Syrup) 473 Ml Syrup, 5 ML PO Q6 PRN for COUGH, #50 ML Prov:SANJIV OLIVARES DO 10/04/18 Hydrocortisone Acetate (Anusol-Hc) 25 Mg Supp.rect, 1 SUPP [place] BID PRN for HEMORROID PAIN/ITCHING, #20 SUPP.RECT Prov:RUTHIE GRULLON MD 08/29/18 Primary Care Provider Keanu Adames Pending Labs Laboratory Tests Test 10/27/18 13:37 10/27/18 13:58 10/27/18 21:24 10/28/18 01:05 White Blood 7.4 Count 10^3/ul (4.8-10 .8) Red Blood 3.55 Count 10^6/ul (4.20-5 .40) Hemoglobin 9.1 g/dl (12.0-16.0 ) Hematocrit 29.7 % (37.0-47.0) Mean 83.7 Corpuscular fl (82.0-101.0) Volume Mean 25.6 Corpuscular pg (29.0-33.0) Hemoglobin Mean 30.6 Corpuscular g/dl (32.0-37.0 Hemoglobin Conc ) ent Red Cell 13.5 Distribution % (11.5-14.5) Width Platelet Count 245 10^3/UL (140-41 5) Mean Platelet 9.5 Volume fl (7.4-10.4) Immature 0.100 Granulocytes % % (0.001-0.429) Neutrophils % 68.5 % (39.0-77.0) Lymphocytes % 20.8 % (15.0-51.0) Monocytes % 6.5 % (0.0-11.0) Eosinophils % 3.1 % (0.0-7.0) Basophils % 1.0 % (0.0-2.0) Nucleated Red 0.0 Blood Cells % /100WBC (0.0-0. 0) Immature 0.010 Granulocytes # 10^3/ul (0.0-0. 031) Neutrophils # 5.0 10^3/ul (1.6-7. 5) Lymphocytes # 1.5 10^3/ul (0.8-2. 9) Monocytes # 0.5 10^3/ul (0.3-0. 9) Eosinophils # 0.2 10^3/ul (0.0-0. 5) Basophils # 0.1 10^3/ul (0.0-0. 1) Nucleated Red 0.0 Blood Cells # 10^3/ul (0.0-0. 0) Sodium Level 136 mmol/L (135-144 ) Potassium 4.4 Level mmol/L (3.5-5.1 ) Chloride Level 100 mmol/L (97-110) Carbon Dioxide 25 Level mmol/L (21-31) Anion Gap 11 (5-13) Blood Urea 16 mg/dl (7-20) Nitrogen Creatinine 0.77 mg/dl (0.44-1.0 0) Est Glomerular > 60 Filtrat mL/min (>60) Rate mL/min Glucose Level 264 mg/dl (70-220) Calcium Level 9.0 mg/dl (8.4-10.2 ) Troponin I < 0.012 ng/ml (0.000-0. 120) Bedside 250 110 100 Glucose mg/dL (70-220) mg/dL (70-220) mg/dL (70-220) Test 10/28/18 05:53 10/28/18 07:44 10/28/18 08:20 10/28/18 12:21 White Blood 6.0 Count 10^3/ul (4.8-10 .8) Red Blood 3.80 Count 10^6/ul (4.20-5 .40) Hemoglobin 9.6 g/dl (12.0-16.0 ) Hematocrit 32.2 % (37.0-47.0) Mean 84.7 Corpuscular fl (82.0-101.0) Volume Mean 25.3 Corpuscular pg (29.0-33.0) Hemoglobin Mean 29.8 Corpuscular g/dl (32.0-37.0 Hemoglobin Conc ) ent Red Cell 13.8 Distribution % (11.5-14.5) Width Platelet Count 482 10^3/UL (140-41 5) Mean Platelet 9.3 Volume fl (7.4-10.4) Immature 0.300 Granulocytes % % (0.001-0.429) Neutrophils % 52.8 % (39.0-77.0) Lymphocytes % 29.0 % (15.0-51.0) Monocytes % 9.9 % (0.0-11.0) Eosinophils % 6.7 % (0.0-7.0) Basophils % 1.3 % (0.0-2.0) Nucleated Red 0.0 Blood Cells % /100WBC (0.0-0. 0) Immature 0.020 Granulocytes # 10^3/ul (0.0-0. 031) Neutrophils # 3.1 10^3/ul (1.6-7. 5) Lymphocytes # 1.7 10^3/ul (0.8-2. 9) Monocytes # 0.6 10^3/ul (0.3-0. 9) Eosinophils # 0.4 10^3/ul (0.0-0. 5) Basophils # 0.1 10^3/ul (0.0-0. 1) Nucleated Red 0.0 Blood Cells # 10^3/ul (0.0-0. 0) Sodium Level 143 mmol/L (135-144 ) Potassium 3.9 Level mmol/L (3.5-5.1 ) Chloride Level 105 mmol/L (97-110) Carbon Dioxide 29 Level mmol/L (21-31) Anion Gap 9 (5-13) Blood Urea 15 mg/dl (7-20) Nitrogen Creatinine 0.74 mg/dl (0.44-1.0 0) Est Glomerular > 60 Filtrat mL/min (>60) Rate mL/min Glucose Level 47 mg/dl (70-220) Hemoglobin A1c 9.6 % (0-5.9) Calcium Level 9.2 mg/dl (8.4-10.2 ) Total 1.0 Bilirubin mg/dl (0.2-1.3) Direct 0.00 Bilirubin mg/dl (0.00-0.2 0) Indirect 1.0 Bilirubin mg/dl (0-1.1) Aspartate Amino 27 IU/L (15-46) Transf (AST/SGO T) Alanine 26 IU/L (13-69) Aminotransferas e (ALT/SGPT) Alkaline 132 Phosphatase IU/L (42-121) Total Protein 7.1 g/dl (6.1-8.1) Albumin 4.2 g/dl (3.3-4.9) Globulin 2.90 g/dl (1.3-3.2) Albumin/Globuli 1.44 n Ratio Bedside 66 131 275 Glucose mg/dL (70-220) mg/dL (70-220) mg/dL (70-220) TARA VÁZQUEZ MD October 28, 2018 13:13
[2018-10-28] MEDS: traMADol 50 MG TAB PO PRN ×2 (14:06→20:38)
[2018-10-28] MEDS: LIDOCAINE 5% PATCH TD SCH (16:38)
--- NOTE | 2018-10-28 17:35 | CONS ---
DATE OF ADMISSION: 10/27/2018 DATE OF CONSULTATION: 10/28/2018 REASON FOR CONSULTATION: Syncope, rule out cardiac etiology, rule out cardiac arrhythmia. REQUESTING PHYSICIAN: Dr. Jaya De La Cruz from the hospitalist service. HISTORY OF PRESENT ILLNESS: The patient is a 58-year-old female well known to myself as a primary of fice patient and multiple hospital admissions, recently admitted 10/07 for a DKA, discharged to [facility], with a history of prior PCI and stent placement -- most recent is the right coronary artery 08/29, coronary artery bypass graft surgery 01/2017, hypertension, dyslipidemia, diabetes carola itus, recurrent episodes of DKA. She was admitted for recently COPD, cardiomyopathy with mildly depr essed left ventricular ejection fraction -- last EF approximately 40% by echo 06/2018, who stated jenifer t she has had some dizziness and had noticed when she stands up at times she becomes dizzy, and subse quently at this time became dizzy and fell. The patient is unsure if she had true loss of consciousn ess. Denied prodrome with chest pain or shortness of breath prior to the fall. Upon arrival, temperature of 99.8, blood pressure 109/54, pulse 94, respiratory rate 18, satting 100% . The patient's labs: White cell count 7.4, hemoglobin 9.1, platelet count 245; sodium 143, potassi um 3.9, creatinine of 0.74, BUN of 15, glucose 47. The patient underwent a shoulder x-ray revealing no acute fracture or dislocation, a chest x-ray revealing discoid atelectasis in the left lower lobe, and a head CT: There was no acute intracranial hemorrhage, moderate intracranial atherosclerosis, m ild generalized cerebral volume loss. The patient's electrocardiogram revealed normal sinus rhythm a t 92 with right axis deviation, anteroseptal Q's, borderline anterior R-wave progression. The patien t was subsequently admitted to the floor and since admit to floor has had blood pressures hanging in the mid 90s to low 100s. The patient denies ongoing dizziness at this time. No chest pain. No shor tness of breath. PAST MEDICAL HISTORY: As above in the HPI. MEDICATIONS CURRENTLY IN THE HOSPITAL: 1. Aspirin 81 mg daily. 2. Elavil 10 mg at bedtime. 3. Lipitor 10 mg at bedtime. 4. Metoprolol 25 mg p.o. b.i.d. 5. Brilinta 90 mg q.12. 6. Albuterol. 7. Tramadol. The patient's losartan and diltiazem held at this time. ALLERGY: IBUPROFEN. SOCIAL HISTORY: Positive tobacco, social ETOH. No illicit drug use. FAMILY HISTORY: No history of sudden cardiac or early CAD. REVIEW OF SYSTEMS: As above in the HPI. CONSTITUTIONAL: No fevers or chills. PULMONARY: No current shortness of breath. CARDIOVASCULAR: No current chest pain. GASTROINTESTINAL: No vomiting. GENITOURINARY: No hematuria. MUSCULOSKELETAL: Degenerative joint disease. PSYCHIATRIC: The patient denies depression. NEUROLOGIC: No documented history of CVA. ENDOCRINE: Positive history of diabetes mellitus. PHYSICAL EXAMINATION: VITAL SIGNS: Temperature of 98, blood pressure most recently 105/51, pulse 70, respiratory rate 22, satting 96%. GENERAL: The patient is alert, awake, in no acute distress. NECK: JVP approximately 8 to 9 cm of water. CHEST: Fair air movement throughout. HEART: Regular rate and rhythm. Normal S1, S2. A I/ systolic murmur. Nondisplaced PMI. ABDOMEN: Positive bowel sounds. Soft. EXTREMITIES: No significant pitting edema, 1+ pulses bilateral posterior tibial. LABORATORY STUDIES: Labs most recently from today: Sodium 143, potassium 3.9, creatinine 0.74, BUN 15. White cell count 6.0, hemoglobin 9.6, platelet count of 482. IMAGING STUDIES: As above in the HPI. No further imaging studies for my review at this time. ELECTROCARDIOGRAM: As above in the HPI. No further electrocardiograms for my review at this time. IMPRESSION: 1. Syncope. Assess for cardiac etiology, rule out any cardiac arrhythmia, acute coronary syndrome. 2. Abnormal electrocardiogram. Assess for acute coronary syndrome. 3. Cardiomyopathy with a mildly depressed left ventricular ejection fraction, last EF 40% by echo th is year, 06/2018. 4. History of hypertension with borderline hypotension. 5. History of coronary artery disease, status post coronary artery bypass graft surgery. 6. Dyslipidemia. 7. Diabetes mellitus, poorly controlled, with hyperglycemic on admit. 8. Psychiatric disorder. 9. Hypothyroidism. RECOMMENDATIONS: 1. At this time, we would maintain patient on telemetry monitoring to follow rhythm and rate control closely and rule out any possible arrhythmic cause of the patient's syncopal episode. 2. We would continue the patient's baseline beta enmanuel at this time, and as possible, we will resu me the patient's losartan for afterload reduction in the setting of decreased EF. 3. We will hold the patient's diltiazem at this time, following blood pressure closely. 4. We would check orthostatics to assess for possibility of orthostasis contributing to the patient' s syncopal episode. 5. We will follow the patient's blood sugars closely and make adjustments as necessary to ensure jenifer t hypoglycemia did not contribute to the patient's fall. 6. Continue the patient's antiplatelet therapy with aspirin and Brilinta for stent patency in the ri [facility] coronary artery and for graft patency. 7. Continue the patient's statin and adjust it according to fasting lipid panel that will be checked . 8. Complete the patient's rule out for myocardial infarction to ensure the patient's constellation o f symptoms were not due to an acute coronary syndrome. 9. Further recommendations will be made as the patient progresses through her inpatient hospital cli nical course. Thank you for allowing me to take part in the care of this patient. I will continue to follow her al marquise very closely with you, with further recommendations to be made as the patient progresses through her inpatient hospital clinical course. Dictated By: RHONDA EMERSON/MORIS Conf#: [id number] DID#: [id number] CC: JAYA DE LA CRUZ MD;*EndCC*
--- NOTE | 2018-10-28 18:11 | QN ---
Documentation Comment As Physician Advisor I have reviewed the chart and have determined that as of today, this patient continues to receive medically necessary care required for the diagnosis and treatment of illness or injury. There has been no unreasonable delay in the rendering of medically necessary services, and medically necessary care has required a length of stay greater than two midnights. Additional information gained during the stay now suggests this patient should have been classified as an inpatient at the time of admission, and I will change the status to inpatient to reflect that medical judgment. Besides the notes from the medical providers, the following information was used in this determination: Cardiomyopathy with abnormal EKG, requiring further studies for diagnosis per push bench operator helper Please call me at [phone] with questions. LIGIA HARRIS MD October 28, 2018 18:11
[2018-10-28] MEDS ORDERED: INSULIN GLARGINE [LANTus] (100 UNITS/ML) SYG SC SCH (20:00)
[2018-10-28] MEDS: ATORVASTATIN 20 MG TAB PO SCH (20:26)
[2018-10-29] VITALS: BP 101/48; PULSE 64; PULSE 71; RESP 16
[2018-10-29] MEDS: ALBUTEROL HFA 8 GM INHALER INH SCH ×3 (00:07→09:00)
[2018-10-29 04:00] VITALS: BP 78/42; PULSE 63; PULSE 66; RESP 18
[2018-10-29] MEDS: traMADol 50 MG TAB PO PRN (04:43)
[2018-10-29] MEDS ORDERED: SOD CHLORIDE 0.9% 1,000 ML IV ONE (05:00)
[2018-10-29 06:03] VITALS: BP 97/45
[2018-10-29] MEDS: LEVOTHYROXINE 112 MCG TAB PO SCH (06:48)
[2018-10-29 07:13] VITALS: BP 108/54; PULSE 66; RESP 22
[2018-10-29] MEDS: INSULIN ASPART [NOVOLOG] 3 ML PEN SC SCH ×2 (07:55→07:58)
[2018-10-29 08:03] VITALS: PULSE 66
[2018-10-29] MEDS: LIDOCAINE 5% PATCH TD SCH (09:20)
[2018-10-29] MEDS: ASPIRIN (EC) 81 MG TAB PO SCH (09:21)
[2018-10-29] MEDS: METOPROLOL 25 MG TAB PO SCH (09:21)
--- NOTE | 2018-10-29 09:51 | PDOCDIS ---
Discharge Instructions DIAGNOSIS Discharge Diagnosis Syncope CONDITION 2 [id number] Patient Condition: [id number] Stable FOLLOW UP/APPOINTMENTS Follow-up Plan Stop taking your blood pressure medications (lasix, diltiazem, metoprolol, and losartan). These are making your blood pressure too low. See Dr bales in a couple weeks to see how your blood pressure is. TARA VÁZQUEZ MD October 29, 2018 09:51
[2018-10-29] MEDS: TICAGRELOR 90 MG TABLET PO SCH (10:05)
[2018-10-29 11:28] VITALS: BP 105/52; PULSE 64; RESP 22
--- NOTE | 2018-10-29 12:47 | RADRPT ---
Vent Rate: 65 bpm RR Interval: [address] Interval: 207 msec QRS Duration: 84 msec QT Interval: 438 msec QTC Interval: 454 msec P-R-T [place]: 38 - 85 - -14 degrees Sinus rhythm...normal P axis, V-rate 50- [address] interval...CT >202, V-rate 50- 90 Anterior infarct, old...Q >40mS, abnormal ST-T, V2-V5 Electronically Signed By: Baron Santos
--- NOTE | 2018-10-29 12:53 | DS ---
Date/Time of Note Date/Time of Note DATE: 10/29/18 TIME: 12:52 Discharge Summary Admission/Discharge Info Admit Date/Time October 27, 2018 at 15:51 Discharge Date/Time Discharge Diagnosis Syncope Patient Condition: Stable Hx of Present Illness 58 yo female with h/o CAD, DMII, COPD, HTN who presents with syncope Patient recently discharged after bout of pneumonia. She is on numerous anithypertensives adn diuretics. [place] [facility], felt faint and then syncopized. Currently feels normal. No CP, no palpitations, no SOB. Current only complaint is of pain in her shoulder where she hit herself, Hospital Course 58 yo female with h/o hypertension, CAD, DMII, tobacco use d/o, COPD who p resents with syncope. She was found to be hypotensive, i suspected this was from excessive medication use leading to syncope. I held her diltiazem, metoprolol and lasix during hosptialization. She remained slightly low BP but able to ambulated without dizziness. I had her hold these medications at discharge as well. She was given basal/bolus insulin for her DMII wiht and episode of hypoglycemia which was corrected. She was countinued on DAPT for CAD. She was encouraged to continue taking syntrhoid 112 mcg. It seems she has not taken this as TSH is 67. Home Meds Active Scripts Albuterol Sulfate* (Proair HFA*) 8.5 Gm Hfa.aer.ad, 2 PUFF INH Q4, #1 INHALER Prov:SANJIV OLIVARES DO 10/04/18 Reported Medications Insulin Lispro (Humalog Argelia[place]pen) 200 Unit/1 Ml Insuln.pen, 0 SQ AC H, EA SLIDING SCALE 08/29/18 Insulin Glargine* (Lantus*) 100 Unit/Ml Soln, 25 UNIT SC QHS, #1 VIAL 08/29/18 Atorvastatin Calcium* (Atorvastatin Calcium*) 20 Mg Tablet, 20 MG PO QHS, #30 TAB 08/29/18 Amitriptyline Hcl* (Amitriptyline Hcl*) 10 Mg Tablet, 10 MG PO QHS, #30 TAB 08/29/18 Levothyroxine Sodium* (Synthroid*) 112 Mcg Tablet, 112 MCG PO BEFORE BREAKFAST, #30 TAB 08/29/18 Aspirin (Low Dose Aspirin) 81 Mg Tablet., 81 MG PO DAILY, #30 TAB 08/29/18 Ticagrelor* (Brilinta*) 90 Mg Tablet, 90 MG PO Q12, TAB 08/29/18 Discontinued Reported Medications Diltiazem Hcl* (Cardizem SR*) 60 Mg Capsr, 60 MG PO Q12, #60 CAP 10/27/18 Tramadol Hcl* (Ultram*) 50 Mg Tablet, 50 MG PO Q6H PRN for PAIN, TAB 08/29/18 Losartan Potassium* (Cozaar*) 25 Mg Tablet, 25 MG PO DAILY, #30 TAB 08/29/18 Furosemide* (Furosemide*) 40 Mg Tablet, 40 MG PO DAILY, TAB 08/29/18 Metoprolol Tartrate* (Lopressor*) 25 Mg Tab, 25 MG PO BID, #60 TAB 08/29/18 Discontinued Scripts Dextromethorphan Hb-Promethazine Hcl* (Promethazine DM* Syrup) 473 Ml Syrup, 5 ML PO Q6 PRN for COUGH, #50 ML Prov:SANJIV OLIVARES DO 10/04/18 Hydrocortisone Acetate (Anusol-Hc) 25 Mg Supp.rect, 1 SUPP [place] BID PRN for HEMORROID PAIN/ITCHING, #20 SUPP.RECT Prov:RUTHIE GRULLON MD 08/29/18 Follow-up Plan Stop taking your blood pressure medications (lasix, diltiazem, metoprolol, and losartan). These are making your blood pressure too low. See Dr adames in a couple weeks to see how your blood pressure is. Primary Care Provider Keanu Adames Pending Labs Laboratory Tests Test 10/28/18 17:49 10/28/18 19:01 10/28/18 20:25 10/29/18 00:24 Bedside 382 276 Glucose mg/dL (70-220) mg/dL (70-220) Troponin I < 0.012 < 0.012 ng/ml (0.000-0 ng/ml (0.000-0 .120) .120) Test 10/29/18 05:36 10/29/18 07:50 Troponin I < 0.012 ng/ml (0.000-0. 120) Triglycerides 91 Level mg/dl (0-149) Cholesterol 153 Level mg/dl (100-200) LDL 85 mg/dl Cholesterol, Calculated HDL 50 Cholesterol mg/dl (37-92) Cholesterol/HDL 3.0 RATIO Ratio Bedside 103 Glucose mg/dL (70-220) TARA VÁZQUEZ MD October 29, 2018 12:53
--- NOTE | 2018-10-29 14:43 | RADRPT ---
Vent Rate: 92 bpm RR Interval: 0 msec [place] Interval: 134 msec QRS Duration: 82 msec QT Interval: 390 msec QTC Interval: 482 msec P-R-T [place]: 45 - 99 - -30 degrees Normal sinus rhythm Rightward axis Low voltage QRS Cannot rule out Anteroseptal infarct , age undetermined Abnormal ECG Electronically Signed By: [facility]
== END 2018-10-29 12:25 | disposition home or self-care (01) ==
LOC: E/R 12:46 → TEL 15:51
PROVIDERS: ADMIT Internal Medicine; ATTEND Internal Medicine
DX: R55 Syncope and collapse (principal); I25.10 Atherosclerotic heart disease of native coronary artery without angina pectoris; Z95.1 Presence of aortocoronary bypass graft; J44.9 Chronic obstructive pulmonary disease, unspecified; I10 Essential (primary) hypertension; Z72.0 Tobacco use; E03.9 Hypothyroidism, unspecified; E11.65 Type 2 diabetes mellitus with hyperglycemia; Z79.4 Long term (current) use of insulin; E78.5 Hyperlipidemia, unspecified; I42.9 Cardiomyopathy, unspecified
CPT/HCPCS: 36415; 70450; 71045; 73030; 80048; 80053; 80061; 82962; 83036; 84443; 84484; 85025; 93005; 96374; 97161; 97166; J1815; J2270; J7030; Z7500; Z7502; Z7610; G0378

== ENCOUNTER 2019-02-01 13:19 | Emergency (ER) | payer OTHER ==
[~2019-02-01] VITALS: Ht 165.1 cm; Wt 65.0 kg
[~2019-02-01 13:19] MED LIST changes: +ALEN70TA5 PO; -D-ME473S2 PO; -FURO40TA4 PO; +GABA300C16 PO; +HYDR-3980 PO; -HYDR25SU23 PR; -LOSA25TA2 PO; -METO-448 PO; +NALO4SPR NS; +NICO-546 TD; +ONDA4TAB14 PO; +PROP20TA4 PO; -TRAM50TA PO
[2019-02-01 13:29] VITALS: Ht 165.1 cm; Wt 65.0 kg
[2019-02-01] MEDS ORDERED: HYDROmorphONE 1 MG/ML SYG IV STA (13:48)
[2019-02-01] MEDS ORDERED: ONDANSETRON 4 MG INJ IV STA (13:48)
[2019-02-01] MEDS ORDERED: SOD CHLORIDE 0.9% 1,000 ML IV STA (13:48)
[2019-02-01] MEDS ORDERED: DIPHENHYDRAMINE 50 MG INJ IV ONE (14:00)
[2019-02-01 14:30] VITALS: BP 114/55; PULSE 67; RESP 17
[2019-02-01] MEDS ORDERED: SOD CHLORIDE 0.9% 100 ML ONE (14:58)
[2019-02-01] MEDS ORDERED: IOHEXOL 100 ML ONE (14:58)
[2019-02-01] MEDS ORDERED: IOHEXOL 350MG/ML 50 ML BTL ONE (14:59)
== END 2019-02-01 16:41 | disposition home or self-care (01) ==
LOC: E/R 13:19
DX: M54.6 Pain in thoracic spine (principal); K80.20 Calculus of gallbladder without cholecystitis without obstruction; I10 Essential (primary) hypertension; E11.9 Type 2 diabetes mellitus without complications; I25.810 Atherosclerosis of coronary artery bypass graft(s) without angina pectoris; J44.9 Chronic obstructive pulmonary disease, unspecified; Z79.82 Long term (current) use of aspirin; Z79.4 Long term (current) use of insulin; Z79.02 Long term (current) use of antithrombotics/antiplatelets
CPT/HCPCS: 36415; 71045; 71275; 75635; 80053; 83690; 83880; 84484; 85025; 85610; 85730; 93005; 96374; 96375; J1170; J1200; J2405; J7030; Q9967; Z7502; Z7610

== ENCOUNTER 2019-02-03 13:05 | Emergency (ER) | payer OTHER ==
[~2019-02-03] VITALS: Ht 152.4 cm; Wt 54.5 kg
[2019-02-03 13:05] VITALS: Ht 152.4 cm; Wt 54.5 kg
[~2019-02-03 13:05] MED LIST changes: -ALBU8.5H8 INH
[2019-02-03 17:27] VITALS: BP 121/71; PULSE 76; RESP 20
== END 2019-02-03 17:20 | disposition home or self-care (01) ==
LOC: E/R 13:05
DX: H53.8 Other visual disturbances (principal); H33.21 Serous retinal detachment, right eye
CPT/HCPCS: 76536; Z7502